=== PATIENT | male | born 1940 | race Caucasian/White ===

== ENCOUNTER 2018-05-12 10:02 | Day surgery (SDC) | payer MEDICARE, BC ==
[2018-05-09 09:02] VITALS: BMI 32.1
[2018-05-12] MEDS ORDERED: Albuterol Sulfate 2.5 mg/3 ml Neb ONE (11:10)
[2018-05-12] MEDS ORDERED: PROPOFOL 200 MG/20 ML VIAL ONE (12:21)
[2018-05-12] MEDS ORDERED: Lidocaine 1% PF 5 ML VIAL ONE (12:21)
--- NOTE | 2018-05-12 18:40 | OP ---
DATE OF PROCEDURE: 05/12/2018 PROCEDURE: Esophagogastroduodenoscopy with biopsy. SURGEON: Tj Odom M.D. ANESTHESIA: Pain medications given by Anesthesiology Department. PREPROCEDURE DIAGNOSIS: Chronic gastroesophageal reflux. POSTPROCEDURE DIAGNOSES: 1. Tamms-colored mucosa 35 cm. 2. Otherwise normal upper endoscopy. PROCEDURE IN DETAIL: A written consent was obtained prior to procedure. After adequate sedation, th e forward-viewing endoscope was advanced down the stomach under direct vision to second portion of du odenum. The duodenum appeared normal. Pylorus was patent. The gastric antrum, body, fundus, and ca rdia all appeared normal. Retroflexion did not show any abnormality. The GE junction was noted appr oximately 36 cm. There were two tongues of salmon-colored lining noted extending for approximately 1 .5 cm. Biopsies were obtained to exclude Parikh's esophagus. The esophagus appeared normal. The p atient tolerated the procedure well. ASSESSMENT: 1. Two tongues of salmon-colored lining epithelium at 35 cm, status post biopsy. 2. Otherwise normal upper endoscopy. PLAN: Await biopsy result.
--- NOTE | 2018-05-12 18:44 | OP ---
DATE OF SERVICE: 05/12/2018. PROCEDURE: Colonoscopy with snare polypectomy. SURGEON: Tj Odom M.D. ANESTHESIA: Medication given per Anesthesiology Department. PREPROCEDURE DIAGNOSIS: Colon screening. POSTPROCEDURE DIAGNOSES: 1. Two sigmoid colon polyps, status post snare polypectomies. 2. Sigmoid diverticulosis coli. 3. Medium internal hemorrhoids. PROCEDURE IN DETAIL: A written consent was obtained prior to procedure. After adequate sedation, re ctal exam performed was normal. Endoscope was advanced to the cecum. The quality of the bowel prep was good. The cecum, ascending colon, hepatic flexure, transverse colon, splenic flexure, descending colon appeared normal. Scattered diverticula were noted in the sigmoid. Two polyps measuring betwe en 5 mm and 8 mm were noted and were removed with snare electrocautery. Polyps were retrieved. Scat tered diverticula were noted in the sigmoid colon. The rectal vault appeared normal. Retroflexion s howed medium internal hemorrhoids. Patient tolerated the procedure well. ASSESSMENT: 1. Two polyps removed in the sigmoid. 2. Sigmoid diverticulosis coli. 3. Internal hemorrhoids. PLAN: Await biopsy result.
== END 2018-05-12 13:30 | disposition home or self-care (01) ==
LOC: SDC 10:02
PROVIDERS: ATTEND Internal Medicine Gastroenterology
PROC: 0DBE8ZX Excision of Large Intestine, Via Natural or Artificial Opening Endoscopic, Diagnostic (ICD-10-PCS; principal; 2018-05-12)
PROC: 0DB48ZX Excision of Esophagogastric Junction, Via Natural or Artificial Opening Endoscopic, Diagnostic (ICD-10-PCS; 2018-05-12)
DX: Z12.11 Encounter for screening for malignant neoplasm of colon (principal); K63.5 Polyp of colon; K57.30 Diverticulosis of large intestine without perforation or abscess without bleeding; K64.8 Other hemorrhoids; K21.0 Gastro-esophageal reflux disease with esophagitis; J44.9 Chronic obstructive pulmonary disease, unspecified; I10 Essential (primary) hypertension; E78.00 Pure hypercholesterolemia, unspecified; Z79.1 Long term (current) use of non-steroidal anti-inflammatories (NSAID); Z79.52 Long term (current) use of systemic steroids; Z79.899 Other long term (current) drug therapy
CPT/HCPCS: 88305; 88312; 88313; J7611

== ENCOUNTER 2018-05-29 19:30 | Outpatient (CLI) | payer MEDICARE, BC | END 2018-05-29 19:31 | disposition home or self-care (01) | LOC: SLEEPLAB 19:30 | PROVIDERS: ATTEND Internal Medicine | DX: G47.33 Obstructive sleep apnea (adult) (pediatric) (principal); R53.83 Other fatigue; R40.0 Somnolence; E78.00 Pure hypercholesterolemia, unspecified; I48.92 Unspecified atrial flutter; I10 Essential (primary) hypertension; J44.9 Chronic obstructive pulmonary disease, unspecified; Z68.33 Body mass index [BMI] 33.0-33.9, adult | CPT/HCPCS: 95811 ==

== ENCOUNTER 2018-07-07 19:30 | Outpatient (CLI) | payer MEDICARE, BC | END 2018-07-07 19:31 | disposition home or self-care (01) | LOC: SLEEPLAB 19:30 | PROVIDERS: ATTEND Internal Medicine | DX: G47.33 Obstructive sleep apnea (adult) (pediatric) (principal); R53.83 Other fatigue; R06.83 Snoring; G47.10 Hypersomnia, unspecified; G47.61 Periodic limb movement disorder; G47.31 Primary central sleep apnea; R09.02 Hypoxemia; E66.9 Obesity, unspecified; Z68.32 Body mass index [BMI] 32.0-32.9, adult | CPT/HCPCS: 95811 ==

== ENCOUNTER 2018-07-15 08:52 | Outpatient (CLI) | payer MEDICARE, BC ==
--- NOTE | 2018-07-15 10:33 | RAD ---
CHEST PA AND LATERAL: Date: 07/15/18 HISTORY: 77-year-old male with history of dyspnea. FINDINGS: Blunting of the costophrenic angles, evidence for some right pleural effusion or pleural thickening. Heart size within normal limits. Increased linear and interstitial markings bilaterally with some mil d biapical pleural thickening, evidence for some chronic change. IMPRESSION: Blunting of right costophrenic angle suggesting a small pleural effusion or some focal pleural thicke paco with increased markings bilaterally, having more of a chronic appearance. No confluent pneumonia or overt edema. No significant cardiomegaly. Atherosclerosis of the aorta. POS: C
== END 2018-07-15 08:53 | disposition home or self-care (01) ==
LOC: RAD 08:52
PROVIDERS: ATTEND Internal Medicine Critical Care Medicine
DX: R06.00 Dyspnea, unspecified (principal); I70.0 Atherosclerosis of aorta
CPT/HCPCS: 71046

== ENCOUNTER 2018-08-11 11:45 | Inpatient (IN) | payer MEDICARE, BC ==
[2018-08-11] MEDS ORDERED: methylPREDNISolone Sod Succ/PF 125 MG/2 ML VIAL ONE (12:04)
[2018-08-11 12:20] LABS: Mean Corpuscular HGB CONC 31.9 g/dL (32.0-36.0); Mean Corpuscular Hemoglobin 28.2 pg (27.0-31.0); Mean Corpuscular Volume 88.3 fL (78.0-98.0); Mean Platelet Volume 7.8 fL (7.4-10.4); Platelet Count 349 thou/uL (130-400); Red Blood Cell (RBC) Count 4.59 mill/uL (4.70-6.10); White Blood Cell (WBC) Count 12.7 thou/uL (4.8-10.8)
[2018-08-11] MEDS ORDERED: Acetaminophen 500 MG TAB ONE (12:28)
[2018-08-11] MEDS ORDERED: Furosemide 40 MG/4 ML VIAL ONE (12:28)
[2018-08-11 12:31] LABS: CKMB 1.1 ng/mL (0-6.6); Troponin I 0.012 ng/mL (< 0.028)
[2018-08-11 12:35] LABS: Band 1 % (5-11); Lymphocytes 10 % (21-51); MDiff Complete? YES; Monocytes 3 % (0-10); Neutrophil 85 % (42-75); RBC Morphology Normal; Reactive Lymphocytes 1 % (0-10)
[2018-08-11 12:44] LABS: ALT (SGPT) 20 U/L (8-55); AST (SGOT) 22 U/L (5-34); Albumin 4.2 g/dL (3.4-4.8); Alkaline Phosphatase 76 U/L (40-150); Anion Gap 13 mmol/L (10-20); BUN (Urea Nitrogen) 20 mg/dL (8.4-25.7); Bilirubin, Total 1.1 mg/dL (0.2-1.2); CK (CPK) 98 U/L (30-200); Calc. Creatinine Clearance 0 mL/min (70-130); Calcium 9.6 mg/dL (7.8-10.44); Carbon Dioxide 22 mmol/L (23-31); Chloride 106 mmol/L (98-107); Estimated GFR-MDRD 60; Globulin 3.2 g/dL (2.4-3.5); Glucose 118 mg/dL (83-110); Protein, Total 7.4 g/dL (5.8-8.1); Sodium 137 mmol/L (136-145)
--- NOTE | 2018-08-11 12:47 | RAD ---
CHEST 1 VIEW: INDICATION: Dyspnea. COMPARISON: Prior exam dated 07/15/2018. FINDINGS: There is airspace opacity in the right upper lobe suspicious for pneumonia. There are healed rib def ormities involving the left chest wall. The costophrenic angles are excluded. The heart size is mil dly enlarged. IMPRESSION: 1. Airspace opacity in the right upper lobe suspicious for pneumonia. 2. Some limitation of the exam. 3. Mild cardiomegaly without definite evidence of cardiac decompensation. POS: [facility]
[2018-08-11] MEDS ORDERED: cefTRIAXone\\ROCEPHIN 2 GM VIAL ONE (13:48)
[2018-08-11 14:04] LABS: Actual Bicarbonate (HCO3a) 21.9 mEq/L (22-28); Analyzer IN Cardio ER; Base Excess (BEa) -0.9 mEq/L (-2.0 to +3.0); CO2 Tension 30.7 mmHg (35.0-45.0); Calcium, Ionized 1.16 mmol/L (1.12-1.30); Carboxyhemoglobin (COHb) 1.1 gm% (0.0-3.0); Hemoglobin (Hb) 12.8 g/dL (14.0-18.0); O2 Tension (PaO2) 73.5 mmHg (> 70.0); Potassium - ABG Lab 3.59 mmol/L (3.70-5.30); pH, Arterial 7.47 (7.35-7.45)
[2018-08-11 14:06] LABS: Bilirubin Negative (Negative); Blood, Urine Negative (Negative); Clarity CLEAR (Clear); Glucose, Urine (Dipstick) Negative (Negative); Leukocyte Trace (Negative); Nitrite Negative (Negative); Protein, Urine (Dipstick) 30 mg/dL (Neg-Trace); Specific Gravity, Urine 1.022 (1.002-1.036)
[2018-08-11 14:08] LABS: Bacteria/HPF None Seen HPF (None Seen); Hyaline Casts/LPF 0-3 HYALINE CAST LPF (0-3 Hyaline); Pathc Cast-AUWi Flag 0.29 (0-2.49); RBC/HPF 0-3 HPF (0-3); Squamous Epithelial 0-3 HPF (0-3); WBC/HPF 0-3 HPF (0-3)
[2018-08-11] MEDS ORDERED: cloNIDine 0.1 MG TAB PO PRN (14:16)
[2018-08-11] MEDS ORDERED: HYDROcodone/Acetaminophen 5/325 mg Tablet PO PRN (14:16)
[2018-08-11] MEDS ORDERED: Ondansetron ODT 4 MG TAB PO PRN (14:16)
[2018-08-11] MEDS ORDERED: Bisacodyl 10 MG SUPP PR PRN (14:16)
[2018-08-11] MEDS ORDERED: Loperamide HCl 2 MG CAP PO PRN (14:16)
[2018-08-11] MEDS ORDERED: Cepastat Lozenges 1 LOZ PO PRN (14:16)
[2018-08-11] MEDS ORDERED: Ondansetron PF 4 MG/2 ML Vial IVP PRN (14:16)
[2018-08-11] MEDS ORDERED: Loratadine 10 MG TAB PO PRN (14:16)
[2018-08-11] MEDS ORDERED: Zolpidem Tartrate 5 MG TAB PO PRN (14:16)
[2018-08-11] MEDS ORDERED: Bisacodyl 5 MG TAB PO PRN (14:16)
[2018-08-11] MEDS ORDERED: Eucerin (Mineral Oil/Petrolatum,White) 30 gm Jar TOP PRN (14:16)
[2018-08-11] MEDS ORDERED: hydrALAZINE 20 MG/ML VIAL SLOW IVP PRN (14:16)
[2018-08-11] MEDS ORDERED: Sodium Chloride 0.65% Nasal 44 ML BOT EA NARE PRN (14:16)
[2018-08-11] MEDS ORDERED: Artificial Tears 18 DROP/0.9 ML EA EYE PRN (14:16)
[2018-08-11] MEDS ORDERED: Azithromycin 500 MG VIAL ONE (14:39)
[2018-08-11 14:45] LABS: ALV-art Gradient 173.325 (0-20); Puncture Site RR
--- NOTE | 2018-08-11 14:48 | HP ---
PRIMARY CARE PHYSICIAN: Dr. Gabriel Mary. PRIMARY SUBSCRIPTION CLERK: Dr. Shipman. REASON FOR ADMISSION: Acute on chronic respiratory failure with hypoxia, pneumonia and COPD exacerba tion. HISTORY OF PRESENT ILLNESS: A 77-year-old male who has underlying history of chronic respiratory vinh lure who uses 3 liter nasal cannula oxygen at home and he also has sleep apnea and uses CPAP machine during nighttime. In addition to that, he has underlying history of hypertension, dyslipidemia, and gastroesophageal reflux disease who presented to emergency room with increasing shortness of breath. He is feeling shortness of breath, gradually increasing for about a week, but since Saturday, the pa filiberto's symptoms are rapidly gotten worse. Even after walking few steps in his home, he was getting out of breath. He was feeling congested in his chest. He was only having cough without any sputum. He was not feeling any chest pain, palpitation, dizziness, but he was feeling weak, he was feeling c hills, he was feeling cold and he was gradually becoming more and more weak. He was having low grade fever at home. Patient attributes his symptoms related with weather change. He did not have any ex posure to any sick person. He did not travel anywhere. Patient also received a flu vaccination this year and patient also reports that he is up to date in all other age appropriate vaccinations includ ing pneumonia vaccines. The patient has been following physical trainer and he was given prednisone course about a month ago. A t that time, he was feeling better. The patient denies any UTI symptoms. He denies any lower extremity edema or calf tenderness. He den ies any PND. He denies any melena or hematochezia, but he does not have any bowel movement for the l ast 3 days. REVIEW OF SYSTEMS: The following complete review of systems was negative, unless otherwise mentioned in the HPI or below: Constitutional: Weight loss or gain, ability to conduct usual activities. Sk in: Rash, itching. Eyes: Double vision, pain. ENT/Mouth: Nose bleeding, neck stiffness, pain, te nderness. Cardiovascular: Palpitations, dyspnea on exertion, orthopnea. Respiratory: Shortness of breath, wheezing, cough, hemoptysis, fever or night sweats. Gastrointestinal: Poor appetite, abdom inal pain, heartburn, nausea, vomiting, constipation, or diarrhea. Genitourinary: Urgency, frequenc y, dysuria, nocturia. Musculoskeletal: Pain, swelling. Neurologic/Psychiatric: Anxiety, depressio n. Allergy/Immunologic: Skin rash, bleeding tendency. Please see my HPI for pertinent positive and negative. All other review of system reviewed and negat aries except as mentioned in the HPI. PAST MEDICAL HISTORY: Hypertension, sleep apnea, dyslipidemia, gastroesophageal reflux disease, oste oarthritis, opacity, COPD, chronic respiratory failure on home oxygen. PAST PSYCHIATRIC HISTORY: Reviewed and negative. PAST SURGICAL HISTORY: Left knee surgery, cyst removal x2, EGD and colonoscopy in 2018 in March, requ ired polypectomy. SOCIAL HISTORY: Patient is . He drinks beer every day, but less than 5 beers. He drinks 2 g lasses of wine almost every night. He denies any smoking. He denies any other illicit drug abuse. He lives at home with his . FAMILY HISTORY: No family history of premature coronary artery disease, stroke or cancer. ALLERGIES: No known drug allergy. CURRENT HOME MEDICATIONS: Losartan 100 mg p.o. daily, Toprol-XL 25 mg p.o. daily, amlodipine 10 mg p .o. daily, Crestor 10 mg p.o. daily, Nexium 20 mg 2 tablets daily, Mobic 15 mg daily, potassium chlor myesha 10 mEq p.o. daily and nebulizer treatment. EMERGENCY ROOM COURSE: Patient is given Rocephin, azithromycin, Lasix 40 mg, Tylenol 1 gram, Solu-Me drol 125 mg, DuoNeb therapy. PHYSICAL EXAMINATION: VITAL SIGNS: On arrival, blood pressure 157/100, pulse 111, respiratory rate 35, temperature 100.2, saturation 86% on 3 liter oxygen, and 92% on BiPAP, weight 101.6 kilograms. GENERAL: Patient is currently in mild respiratory distress, hypertensive, tachycardic. HEAD: Normocephalic, atraumatic. EYES: Pupils round, reactive to light. Extraocular muscle intact. ENT: Oropharynx within normal limits. Moist mucous membranes. No oral lesions, no pharyngeal eryth behzad, no exudate, no thrush. NECK: Supple. No meningeal signs of irritation, no JVD, no thyromegaly, no carotid bruit. LUNGS: Bilateral reduced air entry, coarse breath sound noted bilaterally. No accessory muscles of respiration in use. CARDIAC: S1, S2 regular, tachycardia, no murmur, no gallop, no rub. ABDOMEN: Obesity present. Bowel sounds present, nontender, nondistended. No organomegaly, no mass, no suprapubic tenderness. BACK: Unremarkable, no CVA tenderness. EXTREMITIES: Upper extremity: Passive movements of all joints are normal. Lower extremities: No e mable. Good distal pulsation. SKIN: No skin rash. HEMATOLOGICAL: No lymphadenopathy. PSYCHIATRIC: Normal affect. SIGNIFICANT LABORATORY DATA: Chest x-ray based on my review, airspace opacity in the right upper lob e concerning for pneumonia, cardiomegaly. EKG showing sinus tachycardia, left atrial enlargement. C BC: WBC 12.7, hemoglobin 13.0, platelets 349 with bandemia and left shift. BMP: Sodium 137, potass ium 4.0, chloride 106, carbon dioxide 22, anion gap 13, BUN 20, creatinine 1.17, glucose 118, calcium 9.6. Lactic acid 1.3. LFT: AST 22, ALT 20, alkaline phosphatase 76, albumin 4.2, CK 98, CK-MB 1.1 , troponin I 0.012. BNP 199.7. ASSESSMENT AND PLAN/IMPRESSION: 1. Acute on chronic respiratory failure with hypoxia requiring BiPAP. The patient was not able to m aintain his saturations with his home oxygen. The patient was also found hypoxic at home with satura tion in the 70-80s even with oxygen and currently with the BiPAP, his saturation is maintained. This patient will require IMCU admission. We will wean off BiPAP as tolerated. Pulmonary group will be consulted. His respiratory failure, acute on chronic is related with underlying pneumonia. 2. Community-acquired pneumonia, likely due to Streptococcus pneumoniae. Patient has underlying chr onic obstructive pulmonary disease as well as respiratory failure. Patient will require admission gi aubrey his leukocytosis, fever and increasing respiratory distress. He will be given cefepime and levof loxacin. Pulmonary group will be consulted. Mucinex 600 mg 3 times daily will be given. Along with antibiotic therapy, patient will be treated for chronic obstructive pulmonary disease exacerbation. 3. Chronic obstructive pulmonary disease exacerbation, likely due to weather changes as well as asso ciated pneumonia associated with respiratory failure. The patient will be given DuoNeb therapy every 4 hourly, Dulera two puff inhalation b.i.d., Solu-Medrol 40 mg IV q.6 hourly, Mucinex 600 mg 3 times daily. Patient already up to date in flu and pneumonia vaccination. 4. Obstructive sleep apnea on CPAP. Patient will continue CPAP machine while in hospital during nig ht time. 5. Hypertension. We will continue amlodipine 10 mg p.o. daily. We will hold on Toprol-XL to preven t bronchospasm. We will continue with losartan 100 mg p.o. daily. 6. Dyslipidemia. Continue Crestor 10 mg p.o. at bedtime. 7. Gastroesophageal reflux disease. We will continue Protonix 40 mg p.o. daily. 8. Obesity. Dietary education given, weight loss education given. Healthy lifestyle measures discu ssed with the patient. 9. Deep venous thrombosis prophylaxis. Lovenox 40 mg subcu daily. 10. Gastrointestinal prophylaxis, Protonix 40 mg p.o. daily. CODE STATUS: The patient is FULL CODE. The patient's is surrogate decision maker. Disposition plan based on clinical course. We are expecting patient's stay in hospital more than 2 m idnights. Plan of care discussed with the patient and family member at bedside.
[2018-08-11] MEDS ORDERED: Cefepime 2 GM in Sodium Chloride 0.9% 100 ML IVPB SCH (17:00)
[2018-08-11] MEDS: guaiFENesin ER 600 MG TAB PO SCH ×2 (18:09→20:29)
--- NOTE | 2018-08-11 19:43 | CON ---
DATE OF CONSULTATION: 08/11/2018 The encompassed 70 minutes' time, of that time greater than 50% was spent with the patient in his kendell m or in immediate vicinity of his room. REASON FOR CONSULTATION: Acute on chronic respiratory failure with a right upper lobe pneumonia. HISTORY OF PRESENT ILLNESS: The patient is a 77-year-old male who sees Dr. Shipman for Pulmo nary and sleep apnea concerns. The patient has been feeling ill for the last 3-4 days. He had chill s at home today. He has not been coughing. When he got to the ER, he had a temperature of 102.8. A chest x-ray demonstrated a right upper lobe infiltrate consistent with pneumonia. He has been placed on BiPAP. He feels better. I was actually able to take him off the BiPAP in the ER and interview him. PAST MEDICAL HISTORY: 1. BRAD. 2. Central sleep apnea. 3. Hypertension. 4. Hyperlipidemia. 5. Gastroesophageal reflux. 6. Chronic obstructive pulmonary disease requiring intermittent oxygen therapy. PAST SURGICAL HISTORY: 1. Left knee surgery. 2. Cyst removal. 3. EGD. 4. Colonoscopy with polypectomy. SOCIAL HISTORY: Drinks beer daily using less than 5 beers, drinks 2 glasses of wine at night. Does not smoke currently, does not use illicit drugs. FAMILY MEDICAL HISTORY: Remarkable for no heart disease or lung disease. ALLERGIES: None. MEDICATIONS PRIOR TO ADMISSION: Losartan, Toprol-XL, amlodipine, Crestor, Nexium, potassium chloride , albuterol, ipratropium nebulization solution. Additionally, he wears an auto-SV machine at night f or his sleep apnea/central sleep apnea. REVIEW OF SYSTEMS: No fever, chills, nausea, vomiting, hematemesis, melena, hematochezia, hematuria, or dysuria. PHYSICAL EXAMINATION: VITAL SIGNS: Temperature 102.8, now down to 97; pulse 91; blood pressure 124/66; O2 sat 91% on 5 lit ers. GENERAL: He is awake, alert, pleasant, and in no distress. HEENT: Pupils react. Sclerae icteric. Oropharynx clear. NECK: Without adenopathy or JVD. LUNGS: He has crackles heard in the right upper lobe anteriorly. His left and right side are clear posteriorly. CARDIAC: S1, S2, slightly tachycardic without audible murmur. ABDOMEN: Soft, obese, nontender, nondistended. EXTREMITIES: No clubbing, cyanosis, or edema. NEUROLOGIC: Grossly intact throughout. LABORATORY DATA: White blood cell count 12.7, hematocrit 40.6, platelet count 249 with 85% neutrophi ls, 1% bands. PH 7.47, pCO2 of 31, PO2 of 73 that was on BiPAP 12/5. Sodium 137, potassium 4, chlor myesha 106, CO2 of 22, BUN 20, creatinine 1.2, glucose 118. BNP 199. Troponin 0.012. X-ray shows a pr ofound right upper lobe infiltrate. ASSESSMENT: 1. Right upper lobe pneumonia. 2. Acute hypoxic respiratory failure requiring mechanical ventilation. 3. Underlying chronic obstructive pulmonary disease. 4. Underlying obstructive sleep apnea and central sleep apnea. PLAN: 1. Agree with the cefepime and Levaquin. 2. Agree with IV steroids. 3. Nebulization treatments. 4. Intermittent noninvasive mechanical ventilation as needed. 4. Deep venous thrombosis prophylaxis with Lovenox. 5. Gastrointestinal prophylaxis with Protonix. 6. He may use his auto-SV unit from home or a Trilogy ventilator that he was using down at the ER. 7. I will inform Dr. Shipman of the patient's hospitalization.
[2018-08-11] MEDS: Mometasone/Formoterol 120 PUFF INHALER INH SCH (20:23)
[2018-08-11] MEDS: Rosuvastatin 10 MG TAB PO SCH (20:29)
[2018-08-11] MEDS: Cefepime 2 GM in Sodium Chloride 0.9% 100 ML IVPB SCH (22:17)
[2018-08-12 04:18] LABS: #Lymphocytes 0.6 thou/uL (1.20-3.40); #Monocytes 0.3 thou/uL (0.11-0.59); #Neutrophils 7.8 thou/uL (1.40-6.50); %Basophils 0.4 % (0.0-1.0); %Eosinophils 0.1 % (0.0-10.0); %Lymphocytes 6.6 % (21.0-51.0); %Monocytes 3.5 % (0.0-10.0); %Neutrophils 89.4 % (42.0-75.0); Hemoglobin 11.3 g/dL (14.0-18.0); Mean Corpuscular HGB CONC 31.7 g/dL (32.0-36.0); Mean Corpuscular Hemoglobin 27.7 pg (27.0-31.0); Mean Corpuscular Volume 87.4 fL (78.0-98.0); Mean Platelet Volume 7.6 fL (7.4-10.4); Platelet Count 323 thou/uL (130-400); RBC Distribution Width 15.9 % (11.5-14.5); Red Blood Cell (RBC) Count 4.06 mill/uL (4.70-6.10); White Blood Cell (WBC) Count 8.7 thou/uL (4.8-10.8)
[2018-08-12 05:05] LABS: Anion Gap 17 mmol/L (10-20); BUN (Urea Nitrogen) 32 mg/dL (8.4-25.7); Calc. Creatinine Clearance 65 mL/min (70-130); Calcium 8.9 mg/dL (7.8-10.44); Carbon Dioxide 17 mmol/L (23-31); Chloride 104 mmol/L (98-107); Estimated GFR-MDRD 53; Glucose 179 mg/dL (83-110); Potassium 3.4 mmol/L (3.5-5.1); Sodium 135 mmol/L (136-145)
[2018-08-12] MEDS: Mometasone/Formoterol 120 PUFF INHALER INH SCH ×2 (06:46→18:51)
[2018-08-12] MEDS ORDERED: Enoxaparin Sodium 40 MG/0.4 ML SYRINGE SC SCH (09:00)
[2018-08-12] MEDS: guaiFENesin ER 600 MG TAB PO SCH ×3 (09:08→20:30)
[2018-08-12] MEDS: Losartan 25 MG TAB PO SCH (09:08)
[2018-08-12] MEDS: Amlodipine 10 MG TAB PO SCH (09:08)
--- NOTE | 2018-08-12 09:46 | RAD ---
PORTABLE CHEST: History: ICU follow up. Dyspnea. Comparison: 08-11-18 FINDINGS/IMPRESSION: The focal infiltrate in the right midlung is again seen, slightly less prominent today. Left lung baldomero ears aerated and clear. No other significant change. POS: [facility]
[2018-08-12] MEDS ORDERED: Polyethylene Glycol 3350 17 GM Packet PO PRN (10:49)
[2018-08-12] MEDS ORDERED: Torsemide 20 MG TAB PO SCH (11:00)
[2018-08-12 11:09] LABS: INR-International Normal Ratio 3.6
[2018-08-12 11:10] LABS: PTT 102.2 SEC (22.9-36.1)
--- NOTE | 2018-08-12 11:22 | PRG ---
DATE OF SERVICE: 08/12/2018 SUBJECTIVE: The patient feels much improved. He feels like he is breathing better and would like to get up and around. He does continue to have some abdominal distention. He says he has not had a ashley wel movement 4-5 days. He has a little bit of chest soreness, but it is only when he is coughing. PHYSICAL EXAMINATION: VITAL SIGNS: Temperature 98.7, pulse 101, respirations 18, O2 sat 94% on nasal cannula, BP 119/61. GENERAL APPEARANCE: Age appropriate male. He is very much awake, alert, pleasant and interactive. HEART: Regular rate and rhythm without murmur. LUNGS: Diminished with some scattered rales and wheezes. ABDOMEN: Slightly distended and hypertympanic to percussion. He does have good bowel sounds. There are tending toward slightly more high pitched. EXTREMITIES: No cyanosis, clubbing or edema. LABORATORY DATA: White count is 8.7, hemoglobin 11.3, platelets 323. Sodium 135, potassium 3.4, chl oride 104, CO2 of 17, BUN 32, creatinine 1.3, glucose 179. Blood cultures is growing coag negative s taph. IMPRESSION AND PLAN: 1. Acute respiratory failure requiring noninvasive mechanical ventilation, appears to be substantial ly improved. He is down to 2 liters nasal cannula. 2. Chronic obstructive pulmonary disease exacerbation, followed by Pulmonology, continuing on nebuli zer treatments and steroids. 3. Pneumonia. Continue with broad spectrum antibiotics including cefepime and Levaquin and appears to be substantially improved. 3. Abdominal distention. The patient has not had a bowel movement in about 4-5 days. He does have some bowel sounds, but is distended and hypertympanic. We will get a KUB. Encourage ambulation and give him some laxative. 4. History of atrial fibrillation. The patient has history of obstructive sleep apnea and was havin g episodes of atrial fibrillation as well. He has been evaluated by Cardiology. Apparently Dr. Elvis davis is his loading checker. He had initially been placed on a novel oral anticoagulation agent, but has been switched to Coumadin because of cost. The patient was [facility] yesterday kelvin or to admission has a PT/INR ordered today. We will go ahead and discontinue the Lovenox and resume him on his warfarin therapy. 5. Hypertension, stable. 6. Hyperlipidemia. Continue with Rosuvastatin. 7. We will resume his usual home dose of torsemide.
[2018-08-12] MEDS: Cefepime 2 GM in Sodium Chloride 0.9% 100 ML IVPB SCH ×2 (11:53→21:34)
--- NOTE | 2018-08-12 14:00 | RAD ---
ABDOMEN ONE VIEW: History: 77-year-old male with history of abdominal distension. FINDINGS: There is some gas and fecal material in the colon. There is a considerable amount of gas in nondilate d or up to borderline dilated small bowel, nonspecific. This could conceivably represent a low grade small bowel obstruction versus some focal ileus or enteritis. No overt calculus. Lumbar spine spondyl osis. IMPRESSION: Some gas and fecal material in the colon. A moderate amount of scattered gas in nondilated and up to borderline dilated small bowel raising concern for the possibility of a low grade partial small bowel obstruction or possibly some focal ileus or enteritis. Continued short term follow up. POS: [facility]
--- NOTE | 2018-08-12 15:10 | PRG ---
DATE OF SERVICE: 08/12/2018 SUBJECTIVE: He says he feels much better than he felt yesterday. Still short of breath, just walkin g 5-6 feet in the room. He says he has not had a bowel movement in 4 days. He says his was try ing to get him to come to the doctor in the hospital since Saturday leading up to this. OBJECTIVE: VITAL SIGNS: His vital signs have been stable. LUNGS: He still has wheezes bilaterally. HEART: Regular rhythm. ABDOMEN: Soft and nontender. EXTREMITIES: Without clubbing, cyanosis, or edema. IMPRESSION: 1. Pneumonia. 2. Underlying chronic obstructive pulmonary disease. 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 We will continue with current care.
[2018-08-12] MEDS ORDERED: Warfarin Sodium 5 MG TAB PO SCH (17:00)
[2018-08-12] MEDS: Senokot S 8.6-50 MG TAB PO PRN (17:13)
[2018-08-12] MEDS: Rosuvastatin 10 MG TAB PO SCH (20:30)
[2018-08-13 04:48] LABS: INR-International Normal Ratio 3.7; Prothrombin Time 36.4 SEC (12.0-14.7)
[2018-08-13] MEDS: Mometasone/Formoterol 120 PUFF INHALER INH SCH ×2 (07:04→19:41)
[2018-08-13] MEDS: Amlodipine 10 MG TAB PO SCH (09:39)
[2018-08-13] MEDS: guaiFENesin ER 600 MG TAB PO SCH ×3 (09:39→20:34)
[2018-08-13] MEDS: Losartan 25 MG TAB PO SCH (09:39)
[2018-08-13] MEDS: Torsemide 20 MG TAB PO SCH (09:40)
[2018-08-13] MEDS: Cefepime 2 GM in Sodium Chloride 0.9% 100 ML IVPB SCH ×2 (11:51→21:38)
--- NOTE | 2018-08-13 15:41 | PRG ---
DATE OF SERVICE: 08/13/2018 SUBJECTIVE: Mr. Mart has been stable out of the ICU. He is still getting dyspneic walking to the bathroom. OBJECTIVE: VITALS: He is afebrile, heart rate is 106, respiratory rate is 18, oximetry is 92 on 3 liters, blood pressure 129/58. LUNGS: Remarkable for wheezes diffusely. HEART: Regular rhythm. ABDOMEN: Soft. Radiographs were reviewed yesterday. LABORATORY DATA: Chest x-ray actually was improved compared to the admissions film surprisingly. I suspect he had some degree of mucus plugging. His abdomen is less distended today. I believe his abdominal film from yesterday is more consistent with just retained stool than radiographic abnormalities suggestive if a bowel obstruction or an ileus. We will continue to follow this clinically. IMPRESSION: Chronic obstructive pulmonary disease exacerbation with right upper lobe pneumonia. He is slowly improving, but not ready for discharge. He already does have oxygen and a nebulizer at home. We went over the indications for the use of above again, but I do not feel he is ready for discharge. [facility]
--- NOTE | 2018-08-13 15:52 | PRG ---
DATE OF SERVICE: 08/13/2018 SUBJECTIVE: The patient is feeling okay, a little short of breath and had little tachycardia overnig ht. No new complaints this morning. He did try to go without his CPAP last night. The patient repo rts he was actually on his CPAP for about 3 days prior to his presentation queried whether it could b e related to him developing pneumonia. OBJECTIVE: VITAL SIGNS: Temperature 97.9, pulse 100, respirations 18-24, O2 saturation 98% on 3 liters nasal ca nnula, BP is 129/58. GENERAL APPEARANCE: The patient is awake and alert, still little tachypneic when trying to talk much . HEENT: PERRL. No acute lesions. HEART: Borderline tachycardic with no murmurs. LUNGS: Significantly diminished bilaterally, but no substantial wheezes or rales were noted. ABDOMEN: Soft, nontender, nondistended with positive bowel sounds. No masses, no organomegaly. EXTREMITIES: Warm and dry without edema. IMPRESSION AND PLAN: 1. Acute respiratory failure secondary to pneumonia and chronic obstructive pulmonary disease, impro ving, still requiring some oxygen. 2. Chronic obstructive pulmonary disease exacerbation, followed by Pulmonary. Continue nebulizer tr eatments, steroids, and supplemental oxygen. 3. Pneumonia. Continue broad spectrum antibiotics, cefepime and Levaquin appears to be improving. 4. Abdominal distention. The patient did have a bowel movement this morning and does feel somewhat better. He reports that he often feels somewhat bloated and distended after drinking morning coffee. 5. History of atrial fibrillation. The patient has a history of atrial fibrillation runs while havi ng episodes of sleep apnea followed by Dr. Gonzalez who recently been switched to Coumadin and had ther apeutic levels. 6. Hypertension, stable. 7. Hyperlipidemia. Continue with rosuvastatin.
[2018-08-13] MEDS: Rosuvastatin 10 MG TAB PO SCH (20:34)
[2018-08-13] MEDS: Diabetic Tussin 200 MG/10 ML UDCUP PO PRN (20:34)
[2018-08-14 07:16] LABS: #Lymphocytes 0.7 thou/uL (1.20-3.40); #Monocytes 0.7 thou/uL (0.11-0.59); #Neutrophils 13.4 thou/uL (1.40-6.50); %Basophils 0.1 % (0.0-1.0); %Lymphocytes 4.4 % (21.0-51.0); %Monocytes 4.4 % (0.0-10.0); Hemoglobin 11.6 g/dL (14.0-18.0); Mean Corpuscular HGB CONC 32.2 g/dL (32.0-36.0); Mean Corpuscular Hemoglobin 27.9 pg (27.0-31.0); Mean Corpuscular Volume 86.7 fL (78.0-98.0); Mean Platelet Volume 7.4 fL (7.4-10.4); Platelet Count 397 thou/uL (130-400); Red Blood Cell (RBC) Count 4.14 mill/uL (4.70-6.10); White Blood Cell (WBC) Count 14.8 thou/uL (4.8-10.8)
[2018-08-14 07:31] LABS: Anion Gap 13 mmol/L (10-20); BUN (Urea Nitrogen) 66 mg/dL (8.4-25.7); Calc. Creatinine Clearance 31 mL/min (70-130); Calcium 8.7 mg/dL (7.8-10.44); Carbon Dioxide 20 mmol/L (23-31); Chloride 100 mmol/L (98-107); Estimated GFR-MDRD 22; Glucose 203 mg/dL (83-110); Potassium 3.9 mmol/L (3.5-5.1); Sodium 129 mmol/L (136-145)
[2018-08-14] MEDS: Mometasone/Formoterol 120 PUFF INHALER INH SCH ×2 (08:13→17:57)
[2018-08-14] MEDS: Torsemide 20 MG TAB PO SCH (09:52)
[2018-08-14] MEDS: guaiFENesin ER 600 MG TAB PO SCH ×3 (09:52→20:28)
[2018-08-14] MEDS: Losartan 25 MG TAB PO SCH (09:52)
[2018-08-14] MEDS: Amlodipine 10 MG TAB PO SCH (09:52)
[2018-08-14] MEDS: Cefepime 2 GM in Sodium Chloride 0.9% 100 ML IVPB SCH ×2 (11:53→21:40)
[2018-08-14] MEDS ORDERED: Magnesium Sulfate 3 GM in Sodium Chloride 0.9% 100 ML IVPB SCH (13:15)
--- NOTE | 2018-08-14 13:22 | PRG ---
DATE OF SERVICE: 08/14/2018 Mr. Mart did well overnight. He is still not ready to go home. He feels a little more short of evan ath today. PHYSICAL EXAMINATION: LUNGS: On exam he is wheezing, but does not sound worse to me that he sounded yesterday. HEART: Regular rhythm. ABDOMEN: Abdomen is soft. EXTREMITIES: Without asymmetry. He had an EKG done yesterday that did not show any atrial fibrillation. IMPRESSION: 1. Pneumonia. 2. Chronic obstructive pulmonary disease exacerbation. 3. Aerophagia with abdominal distention. He has been worked up by Dr. Odom for this. 4. History of atrial fibrillation. 5. History of hypertension. 6. Lipid disorder. 7. Deconditioning with each day he is in bed. I have encouraged him to sit up in a chair and exerci se his legs that when he is well enough to go home he will not have the leg weakness, that is certain ly common. We will continue to follow. Give him a dose of IV magnesium to see if this helps.
[2018-08-14 16:31] LABS: INR-International Normal Ratio 3.4; Prothrombin Time 34.7 SEC (12.0-14.7)
[2018-08-14 16:32] LABS: PTT 66.1 SEC (22.9-36.1)
--- NOTE | 2018-08-14 17:40 | PRG ---
DATE OF SERVICE: 08/14/2018 SUBJECTIVE: The patient does not feel significantly better today. He is a little concerned as he th ought he would be getting better been this by now. He is still having some sputum production and has a bit of blood tinged sputum at this point. He has not been able to get up and around a whole lot i n the room. OBJECTIVE: VITAL SIGNS: Temperature is 97.5, pulse 105, respirations 20, O2 sat 92% on 3 liters nasal cannula, BP 124/63. GENERAL: Age appropriate male. He is bit tachypneic. He is able to speak, but generally short sent ences, wearing his nasal cannula. HEART: Borderline tachycardia with a sinus rhythm. LUNGS: Diminished bilaterally with no significant wheezes or rales. ABDOMEN: Soft, nontender, nondistended, positive bowel sounds, no masses, no organomegaly. EXTREMITIES: Warm and dry without edema. LABORATORY DATA: White blood cell count 14.8, hemoglobin 11.6, platelets 397. Sodium 129, potassium 3.9, chloride 100, CO2 is 20, BUN 66, creatinine 2.78, glucose 230. Blood cultures growing coag neg ative staph. ASSESSMENT AND PLAN: 1. Pneumonia. Continue with cefepime, also continuing with treatment of the underlying chronic obst ructive pulmonary disease. Also, continue with the Guaifenesin. 2. Chronic obstructive pulmonary disease exacerbation. Continue with steroids, nebulizer treatments , supplemental oxygen. I discussed with Dr. Shipman considering some magnesium infusion if he does not significantly improve. 3. Abdominal distention, improved with bowel movements. 4. History of atrial fibrillation. I had long discussion with the patient and his family, ultimatel y see no evidence of atrial fibrillation since he has been here, his EKG showed sinus rhythm with ailyn e minimal ectopy. His heart rate on exam remains generally regular with occasional PVCs. 5. Tachycardia secondary to nebulizer treatments, most likely. 6. Elevated BUN and creatinine consistent with prerenal azotemia likely some dehydration, discontinu ing the torsemide and giving him some fluids. 7. Hypertension, stable. 8. Hyperlipidemia. Continue rosuvastatin. 9. Coumadin therapy. Because of the patient's mild blood tinged sputum. We will go ahead and reche ck his coags today and revaluate those in the morning.
[2018-08-14] MEDS ORDERED: ALPRAZolam 0.5 MG TAB PO SCH (18:30)
[2018-08-14] MEDS: Simethicone Chewable 80 MG TAB PO PRN (18:49)
[2018-08-14] MEDS: Sodium Chloride 0.9% 1,000 ML IV SCH (18:54)
[2018-08-14] MEDS: Rosuvastatin 10 MG TAB PO SCH (20:28)
[2018-08-15] MEDS: Sodium Chloride 0.9% 1,000 ML IV SCH (01:14)
[2018-08-15] MEDS ORDERED: ALPRAZolam 0.25 MG TAB PO SCH (03:15)
[2018-08-15] MEDS: Mometasone/Formoterol 120 PUFF INHALER INH SCH ×2 (05:56→18:06)
[2018-08-15 05:58] LABS: #Lymphocytes 0.7 thou/uL (1.20-3.40); #Monocytes 0.5 thou/uL (0.11-0.59); #Neutrophils 11.4 thou/uL (1.40-6.50); %Basophils 0.2 % (0.0-1.0); %Eosinophils 0.2 % (0.0-10.0); %Lymphocytes 5.2 % (21.0-51.0); %Monocytes 4.2 % (0.0-10.0); %Neutrophils 90.2 % (42.0-75.0); Hemoglobin 11.6 g/dL (14.0-18.0); Mean Corpuscular HGB CONC 31.7 g/dL (32.0-36.0); Mean Corpuscular Volume 88.4 fL (78.0-98.0); Mean Platelet Volume 7.5 fL (7.4-10.4); Platelet Count 402 thou/uL (130-400); Red Blood Cell (RBC) Count 4.15 mill/uL (4.70-6.10); White Blood Cell (WBC) Count 12.6 thou/uL (4.8-10.8)
[2018-08-15 06:03] LABS: INR-International Normal Ratio 3.4; Prothrombin Time 34.4 SEC (12.0-14.7)
[2018-08-15 06:04] LABS: PTT 59.9 SEC (22.9-36.1)
[2018-08-15 06:26] LABS: Anion Gap 18 mmol/L (10-20); BUN (Urea Nitrogen) 77 mg/dL (8.4-25.7); Calc. Creatinine Clearance 27 mL/min (70-130); Calcium 8.6 mg/dL (7.8-10.44); Carbon Dioxide 17 mmol/L (23-31); Chloride 98 mmol/L (98-107); Estimated GFR-MDRD 19; Glucose 195 mg/dL (83-110); Potassium 4.1 mmol/L (3.5-5.1); Sodium 129 mmol/L (136-145)
[2018-08-15 08:40] LABS: Troponin I 0.028 ng/mL (< 0.028)
[2018-08-15] MEDS ORDERED: Lidocaine 1% (PF) 30 ML VIAL ONE (10:34)
[2018-08-15] MEDS: Cefepime 2 GM in Sodium Chloride 0.9% 100 ML IVPB SCH ×2 (11:22→21:32)
[2018-08-15] MEDS: guaiFENesin ER 600 MG TAB PO SCH ×3 (11:24→20:09)
[2018-08-15] MEDS: Losartan 25 MG TAB PO SCH (11:24)
[2018-08-15] MEDS: Amlodipine 10 MG TAB PO SCH (11:25)
--- NOTE | 2018-08-15 11:30 | PRG ---
DATE OF SERVICE: 08/15/2018 SUBJECTIVE: Mr. Mart has been short of breath all night and he has felt a pressure sensation in his chest. A chest x-ray obtained showed a fairly substantial right-sided pneumothorax primarily at the base and apex with an area that looked stuck in the mid lung area. PHYSICAL EXAMINATION: VITAL SIGNS: His O2 sat was running in the high 80s to low 90s, respiratory rate in the mid 20s, tem perature is 97.7, blood pressure 146/70. Besides his mild discomfort, he does not appear in any resp iratory distress. HEENT: Unremarkable. NECK: No adenopathy or JVD. LUNGS: Absent breath sounds in the right, clear on the left. CARDIAC: S1 and S2 regular. ABDOMEN: Soft. EXTREMITIES: No edema. LABORATORY DATA: White blood cell count 12.6, hematocrit 36.7, platelet count 402. INR 3.4. Sodium 129, potassium 4.1, chloride 98, CO2 17, BUN 77, creatinine 3.2, glucose 195. X-RAY FINDINGS: Chest x-ray was reviewed. ASSESSMENT: 1. Right-sided pneumothorax. 2. Chronic obstructive pulmonary disease with exacerbation. 3. Pneumonia. 4. Atrial fibrillation. PLAN: 1. The patient's pneumothorax was treated with small pneumothorax catheter without difficulty. Post operative x-ray is pending. It looks like anticoagulation is being withheld. 2. Continue steroids, nebulization therapy. If the small chest tube does not work, then we will nee d cardiothoracic surgery to put in a larger tube.
--- NOTE | 2018-08-15 12:05 | OP ---
DATE OF PROCEDURE: 08/15/2018 PROCEDURE PERFORMED: Pneumothorax catheter placement. PREOPERATIVE DIAGNOSIS: Right pneumothorax. POSTOPERATIVE DIAGNOSIS: Right pneumothorax. ANESTHESIA: A 1% lidocaine without epinephrine. DESCRIPTION OF PROCEDURE: Informed consent was obtained prior to the procedure. The patient had a s ubstantial right-sided pneumothorax, which he was symptomatic from. He was informed of the risk of t he procedure including bleeding, infection, and lung puncture. He agreed to proceed. The patient was placed in a supine position. The right midclavicular second and third intercostal sp martin was cleansed with chlorhexidine and draped sterilely. The entry site was anesthetized with 1% li docaine without epinephrine. A small pneumothorax catheter was inserted between the ribs. I was abl e to aspirate air without difficulty. There was a gush of air once the needle was removed from the c atheter. The tube was then secured to a Heimlich valve. The tube was then sutured into position. T he patient tolerated the procedure well. Postoperative x-ray is pending.
--- NOTE | 2018-08-15 14:06 | ULT ---
RENAL ULTRASOUND: 08/15/18 INDICATIONS: Renal insufficiency. Right kidney measures 12.5 cm in length. Left kidney measures 13. 5 cm in length. The cortical thickn ess appears preserved. There is mild increased cortical echogenicity in both kidneys. There is no hyd ronephrosis or mass lesion seen. The bladder is mildly distended and appears unremarkable. IMPRESSION: Kidneys show mild increased cortical echogenicity consistent with medical renal disease. POS: [facility]
--- NOTE | 2018-08-15 14:08 | RAD ---
PA AND LATERAL CHEST: Date: 08/15/18 HISTORY: Pneumonia. COMPARISON: 08/12/18. FINDINGS: There has been interval development of a moderate sized right pneumothorax. Interstitial and parenchy mal changes are again seen within the right mid lung zone, likely related to pneumonia. There is ques tion of tiny right pleural effusion. The left lung remains clear. Cardiac silhouette is within normal limits. Vascular calcification thoracic aorta. No other interval change. IMPRESSION: 1. Interval development of a moderate sized right pneumothorax. 2. Interstitial and parenchymal changes right mid lung zone, worrisome for infectious process/pneumo bin. Above findings concerning pneumothorax were discussed with Dr. Strauss on 08/15/18 at 0959 hours. CODE CR. POS: [facility]
--- NOTE | 2018-08-15 14:09 | RAD ---
SUPINE AP ABDOMINAL RADIOGRAPH 08/15/18 HISTORY: Pneumonia. FINDINGS: Bowel gas pattern is nonspecific with small amount of retained fecal material seen throughout the col on. Vascular calcifications are see in the abdominal aorta and involving the iliac arteries. Degenera tive changes are noted in the spine. There is linear density seen at the most medial right lung base. Chest x-ray also obtained this date did demonstrate evidence of a pneumothorax which is likely the e tiology for this finding. There is a pneumothorax seen at the right lung base. Vascular calcification s overlie the left upper quadrant. IMPRESSION: 1. Pneumothorax right lung base. 2. Nonspecific bowel gas pattern. 3. Vascular calcifications with multiple phleboliths overlying the pelvis. POS: [facility]
--- NOTE | 2018-08-15 14:19 | RAD ---
PORTABLE AP CHEST RADIOGRAPH: Date: 08-15-18 History: Right sided pneumothorax post thoracostomy tube, pneumonia. Comparison: 08-15-18 at 9:55 a.m. FINDINGS: There has been interval placement of a small caliber right sided thoracostomy tube. There has been re solution of the right sided pneumothorax, a definite pneumothorax is not visualized on the current ex am. Interstitial and patchy parenchymal changes right midlung zone are again seen with mild increase in right perihilar interstitial densities, again worrisome for infectious process. Left lung remains clear. Cardiac silhouette and pulmonary vasculature are within normal limits. No other interval watters e. IMPRESSION: 1. Interval reexpansion of the right lung without obvious pneumothorax seen on this exam. Right sided thoracostomy tube is now in place overlying the right upper lung zone. 2. Increased interstitial and patchy parenchymal changes in the right perihilar region and right midl mariia zone, worrisome for infectious process/pneumonia. Follow up to resolution is recommended. 3. Stable remote left sided rib fractures. POS: [facility]
[2018-08-15] MEDS: Acetaminophen 325 MG TAB PO PRN (14:37)
[2018-08-15] MEDS: Rosuvastatin 10 MG TAB PO SCH (20:09)
--- NOTE | 2018-08-15 21:24 | PDOC.PN ---
- Subjective Encounter Start Date: 08/15/18 Encounter Start Time: 09:20 Had a very difficult time last night. Increasing SOB and discomfort across the upper abdomen. Xanax helped a little. - Objective Resuscitation Status: Resuscitation Status FULL:Full Resuscitation Vital Signs & Weight: Vital Signs (12 hours) Temp Pulse Resp BP Pulse Ox 08/15/18 19:00 97.7 F 103 H 21 H 142/65 H 93 L 08/15/18 18:03 93 20 92 L 08/15/18 13:29 91 18 93 L 08/15/18 12:00 92 L 08/15/18 11:25 99 08/15/18 10:30 92 L Weight Admit Weight 216 lb Weight 219 lb 9 oz I&O: 08/14/18 08/15/18 08/16/18 06:59 06:59 06:59 Intake Total 731 2350 1100 Balance 731 2350 1100 Result Diagrams: 08/15/18 03:36 08/15/18 03:36 Phys Exam - Physical Examination Constitutional: NAD Very diminished. Moreso on right. Some wheezing on left. Cardiovascular: RRR Mildly tachy. Gastrointestinal: soft, non-tender, positive bowel sounds Modestly distended. Musculoskeletal: no edema Psychiatric: A&O x 3 Dx/Plan (1) Pneumonia Code(s): J18.9 - PNEUMONIA, UNSPECIFIED ORGANISM Status: Acute (2) COPD (chronic obstructive pulmonary disease) Status: Acute (3) Abdominal distension (gaseous) Code(s): R14.0 - ABDOMINAL DISTENSION (GASEOUS) Status: Acute (4) Urinary hesitancy Code(s): R39.11 - HESITANCY OF MICTURITION Status: Acute (5) Acute renal failure Status: Acute - Plan * Creat did not improve with hydration overnight. The fluids got started late. Will get renal US, nephrology consult. * CXR, KUB. * * Notified by Rad that patient had R pneumothorax. Contacted Pulmonology and catheter placed. Re-evaluation of patient revealed improved breathing and general color. * discussed with nephrology. Will orally hydrate tonight and recheck labs in am. Suspect it will be better. Patient will need urology follow up for the hesitancy.
[2018-08-15] MEDS: ALPRAZolam 0.25 MG TAB PO PRN (22:32)
--- NOTE | 2018-08-15 22:48 | CON ---
DATE OF CONSULTATION: 08/15/2018 NEPHROLOGY CONSULTATION REASON FOR CONSULTATION: Elevated creatinine. HISTORY OF PRESENT ILLNESS: This is a very pleasant 77-year-old gentleman who presented to the [facility] 3 days ago for acute on chronic respiratory failure, pneumonia, and COPD exacerbation. The patie nt also had a pneumothorax. His creatinine increased from 1.3-3.2 today. The patient has had no yousuf or proteinuria. PAST MEDICAL HISTORY: Significant for atrial fibrillation, sleep apnea, GERD, osteoarthritis, COPD, left knee surgery, EGD, colonoscopy, polypectomy. SOCIOECONOMIC HISTORY: No alcohol use. FAMILY HISTORY: Negative for ESRD. ALLERGIES: Reviewed. HOME MEDICATIONS: List reviewed. REVIEW OF SYSTEMS: A 15-point review of systems was performed and was negative except for positives noted above. GENERAL: Weakness- HEAD: Headache- NECK: No swelling or lumps. NOSE: No epistaxis or discharge. EYES: No diplopia or pain. RESPIRATORY: Dyspnea- CARDIOVASCULAR: Chest pain- GASTROINTESTINAL: Nausea- /SEED ANALYST: Hematuria- MUSCULOSKELETAL: No joint pain. NEUROPSYCHIATIC SYSTEMS: No suicidal ideation. No ideation. SKIN: Denies any rash or ulcer. CONSTITUTIONAL: No fever or chills. PHYSICAL EXAMINATION: GENERAL: Patient is awake, alert. VITAL SIGNS: Afebrile, pulse 95, breathing 16, blood pressure was 130/60. HEAD/NECK: Normocephalic. Atraumatic. EYES: EOMI. No deformity. EARS: Clear. No ulcers. NOSE: Intact. No lesions. MOUTH: Clear. No discharge. THROAT: Clear. No exudate. LUNGS: Clear. No crackles. CARDIAC: S1, S2. No rub. ABDOMEN: Benign. BS+. GENITALIA/RECTUM: De absent. BACK/EXTREMITIES: Edema 0+ Ulcer- NEUROLOGICAL: Alert and motor intact. SKIN: Rash- Bruise- LYMPHATICS: Edema- Ulcer- LABORATORY DATA: Show creatinine is 3.2, BUN 71. Sodium 129. ASSESSMENT AND RECOMMENDATIONS: 1. Acute kidney injury with chronic kidney disease, most likely due to decreased effective arterial blood volume. Agree with holding Lasix. Continue hydration orally. 2. Anemia, stable. 3. Medications based on glomerular filtration rate are appropriate. 4. Proteinuria. Indicates chronic ischemic nephropathy. No indication for dialysis. We will follo w the patient's renal function closely.
[2018-08-16 04:55] LABS: #Lymphocytes 0.7 thou/uL (1.20-3.40); #Monocytes 0.8 thou/uL (0.11-0.59); #Neutrophils 13.6 thou/uL (1.40-6.50); %Basophils 0.3 % (0.0-1.0); %Eosinophils 0.1 % (0.0-10.0); %Lymphocytes 4.3 % (21.0-51.0); %Monocytes 5.2 % (0.0-10.0); Hemoglobin 11.5 g/dL (14.0-18.0); Mean Corpuscular HGB CONC 32.5 g/dL (32.0-36.0); Mean Corpuscular Hemoglobin 28.3 pg (27.0-31.0); Mean Corpuscular Volume 87.2 fL (78.0-98.0); Mean Platelet Volume 7.5 fL (7.4-10.4); Platelet Count 433 thou/uL (130-400); RBC Distribution Width 15.9 % (11.5-14.5); Red Blood Cell (RBC) Count 4.06 mill/uL (4.70-6.10); White Blood Cell (WBC) Count 15.1 thou/uL (4.8-10.8)
[2018-08-16 05:06] LABS: Anion Gap 17 mmol/L (10-20); BUN (Urea Nitrogen) 89 mg/dL (8.4-25.7); Calc. Creatinine Clearance 24 mL/min (70-130); Calcium 8.5 mg/dL (7.8-10.44); Carbon Dioxide 16 mmol/L (23-31); Chloride 101 mmol/L (98-107); Estimated GFR-MDRD 17; Glucose 194 mg/dL (83-110); Potassium 4.7 mmol/L (3.5-5.1); Sodium 129 mmol/L (136-145)
[2018-08-16] MEDS: Mometasone/Formoterol 120 PUFF INHALER INH SCH ×2 (05:40→17:48)
--- NOTE | 2018-08-16 07:58 | RAD ---
PORTABLE CHEST: Date: 08/16/18 INDICATION: Follow-up pneumothorax. COMPARISON: 08/15/18. FINDINGS: Small caliber chest tube is again noted overlying the right lung. There is no diffuse subcutaneous em physema over the entire chest, which has occurred since the prior exam. Lungs appear well aerated wit h no evidence of significant pneumothorax. Vascular and interstitial markings appear prominent and th ere is mild cardiomegaly. More confluent infiltrate in the right mid lung abutting the fissure is aga in seen and was noted yesterday. IMPRESSION: Diffuse subcutaneous emphysema now apparent. Lungs show no significant interval change. POS: [facility]
[2018-08-16] MEDS: Amlodipine 10 MG TAB PO SCH (09:03)
[2018-08-16] MEDS: guaiFENesin ER 600 MG TAB PO SCH ×3 (09:03→22:26)
--- NOTE | 2018-08-16 10:20 | PDOC.PN ---
- Subjective Encounter Start Date: 08/16/18 Encounter Start Time: 10:18 Still feeling better. BROWN decreased, recovery time decreased. - Objective Resuscitation Status: Resuscitation Status FULL:Full Resuscitation Vital Signs & Weight: Vital Signs (12 hours) Temp Pulse Resp BP BP Pulse Ox 08/16/18 09:30 95 18 93 L 08/16/18 09:03 98 151/70 H 08/16/18 08:17 97.8 F 99 18 151/70 H 93 L 08/16/18 08:00 93 L 08/16/18 05:40 95 16 94 L 08/16/18 05:38 95 16 94 L 08/16/18 04:00 97.7 F 90 18 142/75 H 90 L 08/16/18 02:25 94 18 08/15/18 23:00 97.7 F 90 18 148/64 H 93 L Weight Admit Weight 216 lb Weight 219 lb 9 oz I&O: 08/15/18 08/16/18 08/17/18 06:59 06:59 06:59 Intake Total 2350 1600 Balance 2350 1600 Result Diagrams: 08/16/18 03:51 08/16/18 03:51 Phys Exam - Physical Examination Constitutional: NAD Still has some tachypnea Much improved air exchange. Still generally diminished. Cardiovascular: RRR, no significant murmur Occ ectopy. Gastrointestinal: soft, non-tender, no distention, positive bowel sounds 2+ edema Psychiatric: normal affect, A&O x 3 Dx/Plan (1) Pneumonia Code(s): J18.9 - PNEUMONIA, UNSPECIFIED ORGANISM Status: Acute Comment: Persistent on CXR. On cefepime. (2) COPD (chronic obstructive pulmonary disease) Status: Acute Comment: Complicated with pneumonia and pneumothorax. Nebs, steroids, oxygen. Pulmonary following. (3) Abdominal distension (gaseous) Code(s): R14.0 - ABDOMINAL DISTENSION (GASEOUS) Status: Acute Comment: Improved. (4) Urinary hesitancy Code(s): R39.11 - HESITANCY OF MICTURITION Status: Acute Comment: Seems to have retention and incomplete voiding. Will check PVR. Given the worsening renal function without other good explanation, will check CT abdomen and pelvic and consult Urology. Start tamsulosin. (5) Acute renal failure Status: Acute Comment: Worsening renal function. nephrology following. Appears to be borderline hypervolemic and cannot push fluids. Urology workup. (6) Subcutaneous emphysema after procedure Code(s): T81.82XA - EMPHYSEMA (SUBCUTANEOUS) RESULTING FROM A PROCEDURE, INIT Status: Acute Comment: Benign. (7) Atrial fibrillation Code(s): I48.91 - UNSPECIFIED ATRIAL FIBRILLATION Status: Acute Comment: Intermittent. Has been in sinus. Historically only had it when having BRAD. Therapeutic on INR and rate is appropriate to the clinical scenario. - Plan * As above.
--- NOTE | 2018-08-16 10:49 | PRG ---
DATE OF SERVICE: 08/16/2018 SUBJECTIVE: The patient is breathing better, but he has now developed diffuse subcutaneous emphysema . PHYSICAL EXAMINATION: VITAL SIGNS: Temperature 97.8, pulse 95, respirations 18, blood pressure 151/70, O2 sat 93% on 3 lit ers. HEENT: Unremarkable. NECK: He has subcutaneous air up to the angle of his chin. LUNGS: Fairly clear bilaterally. CARDIOVASCULAR: S1 and S2 regular. ABDOMEN: Soft. EXTREMITIES: No edema. LABORATORY DATA AND IMAGING: His chest x-ray shows that his lung is expanded, but he has diffuse sub cutaneous emphysema noted. Labs are notable for white blood cell count of 15.1, platelet count of 43 3. Sodium of 129, BUN 89, creatinine 3.5. Chest x-ray was reviewed in detail. ASSESSMENT: 1. Spontaneous pneumothorax. 2. Right-sided pneumonia. 3. Subcutaneous emphysema. PLAN: 1. I flushed the chest tube out. Surprisingly, he does not have much in the way of air leak remaini ng. 2. Continue the antibiotics for pneumonia. 3. Continue IV steroids. 4. Hopefully, I will be able to get this tube out in the next day or two. X-ray will be rechecked t omorrow.
[2018-08-16] MEDS ORDERED: Tamsulosin HCl 0.4 MG CAP PO SCH (11:00)
--- NOTE | 2018-08-16 11:57 | PRG ---
DATE OF SERVICE: 08/16/2018 SUBJECTIVE: This is a 77-year-old gentleman being seen for acute kidney injury. The patient denies any nausea, vomiting or chest pain. PHYSICAL EXAMINATION: GENERAL: The patient is awake, alert. VITAL SIGNS: Afebrile, pulse 98, breathing 16, blood pressure 151/70. HEAD/NECK: Normocephalic. Atraumatic. EYES: EOMI. No deformity. EARS: Clear. No ulcers. NOSE: Intact. No lesions. MOUTH: Clear. No discharge. THROAT: Clear. No exudate. LUNGS: Clear. No crackles. CARDIAC: S1, S2. No rub. ABDOMEN: Benign. BS+. GENITALIA/RECTUM: De absent. BACK/EXTREMITIES: Edema 0+ Ulcer- NEUROLOGICAL: Alert and motor intact. SKIN: Rash- Bruise- LYMPHATICS: Edema- Ulcer- LABORATORY DATA: Show hemoglobin 11.5 and creatinine 3.5. ASSESSMENT AND PLAN: 1. Acute kidney injury with chronic kidney disease stage 4, multifactorial. I will start the patien t on gentle hydration. 2. Hypertension and anemia, stable. 3. Medications based on glomerular filtration rate are appropriate. No indication for dialysis.
--- NOTE | 2018-08-16 12:15 | EKG ---
Test Reason : Blood Pressure : / mmHG Vent. Rate : 106 BPM Atrial Rate : 106 BPM P-R Int : 178 ms QRS Dur : 080 ms QT Int : 346 ms P-R-T Axes : 054 -11 034 degrees QTc Int : 459 ms Sinus tachycardia Possible Left atrial enlargement Abnormal ECG Confirmed by ALLI STEWART ([id number]), editor publications CHAVEZ QUINTANILLA ([id number]) on 08/16/2018 12:15:08 PM Referred By: PAT Confirmed By:ALLI STEWART
[2018-08-16] MEDS: Losartan 25 MG TAB PO SCH (13:23)
[2018-08-16] MEDS: Sodium Chloride 0.9% 1,000 ML IV SCH (13:24)
[2018-08-16] MEDS: Cefepime 2 GM in Sodium Chloride 0.9% 100 ML IVPB SCH ×2 (13:24→22:27)
[2018-08-16 13:32] LABS: Bilirubin Negative (Negative); Blood, Urine Moderate (Negative); Clarity CLOUDY (Clear); Glucose, Urine (Dipstick) Negative (Negative); Leukocyte Negative (Negative); Nitrite Negative (Negative); Protein, Urine (Dipstick) Negative (Neg-Trace); Urobilinogen 0.2 mg/dL (0.2-1.0)
[2018-08-16 13:34] LABS: Bacteria/HPF None Seen HPF (None Seen); Hyaline Casts/LPF 4-6 HYALINE CAST LPF (0-3 Hyaline); Pathc Cast-AUWi Flag 1.16 (0-2.49); RBC/HPF 0-3 HPF (0-3); Renal Epithelial None Seen HPF (0-3); Squamous Epithelial 0-3 HPF (0-3); Transitional Epithelial NONE SEEN HPF (0-3); WBC/HPF None Seen HPF (0-3)
--- NOTE | 2018-08-16 14:09 | CON ---
DATE OF CONSULTATION: 08/16/2018 PRIMARY CARE PHYSICIAN: Gabriel Mary M.D. REFERRING: Gabriel Strauss M.D. with Hospitalist regarding BPH, urinary hesitancy. HISTORY OF PRESENT ILLNESS: Mr. Mart is a pleasant 77-year-old male, currently admitted due to exacerbation of his COPD, pneumonia, pneumothorax. The patient was seen by Pulmonology and Nephrology. There are no strict I's and O's; however, due to urinary hesitancy, Urologic consultation was obtained. The patient denies prior assessment by a urologist, no prior history of BPH or prostate cancer, no family history of prostate cancer. He denies history of STDs, gross hematuria, or prior history of UTI. Currently, he states that he has hesitancy, urinary flow is variable, somewhat weak, has some pressure in the lower abdomen; however, this is nonspecific. He denies constipation. On admitting, urinalysis was grossly unremarkable. Blood culture is negative; however, urine culture was not obtained. He was admitted with a creatinine of 2.7, currently 3.5. Renal ultrasound was obtained by the Hospitalist, which demonstrated no evidence of hydronephrosis, somewhat distended bladder. No mass appreciated. There is some echogenicity in the kidneys consistent with medical renal disease. A CT has been obtained by Hospitalist as well with contrast later today, due to worsening creatinine. PAST MEDICAL HISTORY: Atrial fibrillation, sleep apnea, GERD, COPD, osteoarthritis, obesity. PAST SURGICAL HISTORY: Includes EGD and colonoscopy, polypectomy, left knee surgery. SOCIAL HISTORY: He has extended family at bedside. He is . Denies illicit drug use. FAMILY HISTORY: Noncontributory. ALLERGIES: No known drug allergies. CURRENT MEDICATIONS: Include Flomax 1 p.o. daily, which was started this morning; Ambien; simethicone; Senokot; Crestor; MiraLax; Protonix; Zofran; Solu- Medrol; milk of magnesium; Cozaar; Claritin; hydralazine; Mucinex; Robitussin; Catapres; cefepime; Norvasc; Xanax; albuterol; ipratropium inhalers; hydrocodone 5/325. PHYSICAL EXAMINATION: VITAL SIGNS: Stable. He is 93% on 3 liters, blood pressure 150/70. I's and O' s, there is no strict documentation of his output. GENERAL: The patient is in no acute distress. HEENT: Grossly unremarkable. HEART: Regular rate. LUNGS: Decreased inspiratory effort. ABDOMEN: Morbidly obese, protuberant. GENITOURINARY EXAM: Demonstrates circumcised phallus. Meatus is grossly unremarkable. Testes are descended. Bladder scan reads over 500 mL. DIGITAL RECTAL EXAM: Demonstrates prostate approximately 40/45 grams, but no discrete nodularity. I did pass a 16-[place] De catheter without significant resistance and approximately 600-700 mL of dilute urine clear obtained, attached to gravity bag. PERTINENT LABS AND IMAGING: White count 15, hemoglobin 11, platelets 432. INR is 3.4, PTT of 59, baseline creatinine 0.8-1.3. He is admitted with creatinine of 2.7, this morning is 3.58. Admitting UA, 30 of protein, trace leukocytes, otherwise unremarkable. No culture obtained. Blood culture demonstrates coag- negative staph. IMPRESSION/PLAN: Mr. Mart is a 77-year-old male, currently admitted due to, 1. Chronic obstructive pulmonary disease exacerbation. 2. Community-acquired pneumonia. 3. Acute kidney injury, likely multifactorial. 4 BPH urinary retention, with postvoid residual of 600-700 mL. Due to significant PVR, I do recommend indwelling De catheter for bladder rest. This will remain in situ at least a week or two and we will initiate a voiding trial, which can certainly be performed at my office as an outpatient. I do agree with Flomax, will increase to b.i.d. add Avodart 0.5 mg 1 p.o. daily. Continue indwelling De catheter. A repeat UA C and S is obtained. MTDD
--- NOTE | 2018-08-16 14:23 | CT ---
CT ABDOMEN AND PELVIS WITHOUT IV CONTRAST: Date: 08/16/18 PROVIDED CLINICAL HISTORY: Acute renal failure. FINDINGS: Comparison made with the examination dated 03/06/17. Small pneumothorax is visualized on the right. There is chest wall gas noted related to known chest t ube. The solid abdominal organs demonstrate no acute abnormality. Hepatic cysts and left adrenal nodule ap pear stable There is no evidence for bowel obstruction. There is no localized inflammatory fat stranding, free fl uid, or free air apparent. Ed catheter is noted within the urinary bladder with associated bladder gas. Vascular calcifications are noted The osseous structures demonstrate no concerning osteoblastic or osteolytic lesions. IMPRESSION: 1. No evidence for hydronephrosis. 2. Known right pneumothorax and associated chest wall emphysema. POS: [facility]
[2018-08-16] MEDS: Tamsulosin HCl 0.4 MG CAP PO SCH (22:26)
[2018-08-16] MEDS: ALPRAZolam 0.25 MG TAB PO PRN (22:26)
[2018-08-16] MEDS: Rosuvastatin 10 MG TAB PO SCH (22:26)
[2018-08-16] MEDS: Calcium Carbonate 500 MG ChewTAB PO PRN (22:32)
[2018-08-17] MEDS: Mometasone/Formoterol 120 PUFF INHALER INH SCH ×2 (05:39→18:47)
[2018-08-17 06:09] LABS: Anion Gap 15 mmol/L (10-20); BUN (Urea Nitrogen) 101 mg/dL (8.4-25.7); Calc. Creatinine Clearance 21 mL/min (70-130); Calcium 8.1 mg/dL (7.8-10.44); Carbon Dioxide 17 mmol/L (23-31); Chloride 99 mmol/L (98-107); Estimated GFR-MDRD 14; Glucose 183 mg/dL (83-110); Potassium 4.6 mmol/L (3.5-5.1); Sodium 126 mmol/L (136-145)
[2018-08-17 06:14] LABS: Band 4 % (5-11); Hemoglobin 10.8 g/dL (14.0-18.0); Lymphocytes 5 % (21-51); MDiff Complete? YES; Mean Corpuscular HGB CONC 31.7 g/dL (32.0-36.0); Mean Corpuscular Hemoglobin 27.6 pg (27.0-31.0); Mean Corpuscular Volume 87.1 fL (78.0-98.0); Mean Platelet Volume 7.8 fL (7.4-10.4); Monocytes 4 % (0-10); Myelocyte 1 % (0-0); Neutrophil 86 % (42-75); PLT Morphology Comment Appears Increased; Platelet Count 452 thou/uL (130-400); Red Blood Cell (RBC) Count 3.92 mill/uL (4.70-6.10); White Blood Cell (WBC) Count 18.3 thou/uL (4.8-10.8)
--- NOTE | 2018-08-17 07:48 | RAD ---
PORTABLE CHEST: Date: 08/17/18 HISTORY: Follow-up pneumothorax. COMPARISON: 08/16/18. FINDINGS: Small caliber right chests tube is unchanged in position. Subcutaneous emphysema is again noted, slig htly less pronounced. No evidence of significant pneumothorax. Infiltrate in the right mid lung is less pronounced. Mild ca rdiomegaly and mild vascular congestion remain. Otherwise no significant change. POS: [facility]
[2018-08-17] MEDS: Losartan 25 MG TAB PO SCH (08:33)
[2018-08-17] MEDS: Amlodipine 10 MG TAB PO SCH (08:33)
[2018-08-17] MEDS: Tamsulosin HCl 0.4 MG CAP PO SCH ×2 (08:33→22:04)
[2018-08-17] MEDS: guaiFENesin ER 600 MG TAB PO SCH ×3 (08:34→22:04)
[2018-08-17] MEDS ORDERED: Tamsulosin HCl 0.4 MG CAP PO SCH (09:00)
[2018-08-17] MEDS: Dutasteride 0.5 MG CAP PO SCH (12:08)
[2018-08-17] MEDS: Milk Of Magnesia 30 ML UDCUP PO PRN (12:09)
[2018-08-17] MEDS: Sodium Chloride 0.9% 1,000 ML IV SCH (12:09)
--- NOTE | 2018-08-17 12:09 | PRG ---
DATE OF SERVICE: 08/17/2018 SUBJECTIVE: He feels much better. He says he has much less subcutaneous air. OBJECTIVE: VITAL SIGNS: On exam, his temperature is 97.6, pulse 96, respirations 18, O2 sat 93% on 3 liters, bl ood pressure 145/56. HEENT: Unremarkable. NECK: No JVD. LUNGS: Clear bilaterally. CARDIAC: S1 and S2, regular. ABDOMEN: Soft. EXTREMITIES: He has subcutaneous air in his neck, around his right side of chest, and down his right arm. His chest x-ray showed resolution of pneumothorax and much less subcutaneous air. His Heimlich valve too was not functional this morning. I flushed it out, tested it under water seal and there was no air leak. ASSESSMENT: 1. Spontaneous pneumothorax. 2. Community-acquired pneumonia. 3. Chronic obstructive pulmonary disease exacerbation. 4. Acute kidney injury. PLAN: I have pulled out the chest tube. I think he can go ahead and be switched over to oral antibi otics. Increase activity as tolerated. Switch to oral steroids. I would anticipate him being able to go to rehab or be discharged by tomorrow if okay with everybody else.
[2018-08-17] MEDS: Cefepime 2 GM in Sodium Chloride 0.9% 100 ML IVPB SCH (12:10)
--- NOTE | 2018-08-17 12:20 | PRG ---
DATE OF SERVICE: 08/17/2018 SUBJECTIVE: Had some irritation due to De catheter; however, tolerating it uneventfully. OBJECTIVE: VITAL SIGNS: Stable, 93% on 3 liters. I's and O's 1620 in and 1550 out. Urine output pink tinged, clear. ABDOMEN: Soft, obese, protuberant, no rigidity, no rebound. PERTINENT LABORATORY DATA: White count is increased to 18,000, hemoglobin 10.8 , platelets 452. INR today is 3.0. Renal function, creatinine has increased to 4.1, BUN 101. Urine culture negative. CT of the abdomen and pelvis, which I reviewed myself as well demonstrating no evidence of hydronephrosis. Air in the bladder is consistent with De catheter that was placed just prior to obtaining CT, right pneumothorax with chest wall emphysema. IMPRESSION AND PLAN: 1. Mr. Rios is a pleasant 77-year-old male with history of pneumonia, pneumothorax, chronic obstructive pulmonary disease exacerbation. 2. Acute kidney injury, multifactorial. 3. Benign prostatic hypertrophy with urinary retention, postvoid residual 600- 700 mL. Although he has significant urinary retention, there is no evidence of hydronephrosis when urinary retention. 4. Renal insufficiency is due to medical renal disease. Continue indwelling De catheter. I did increase his Flomax to b.i.d., Avodart added. When patient is ready to be discharged, he will go home with an indwelling De catheter, followup appointment in chart with me for a voiding trial in a few weeks. patient informed. MTDAnn
--- NOTE | 2018-08-17 12:45 | PRG ---
DATE OF SERVICE: 08/17/2018 SUBJECTIVE: This is a 77-year-old gentleman being seen for end-stage renal disease. The patient den ies any nausea, vomiting or chest pain. OBJECTIVE: GENERAL: Patient is awake, alert. VITAL SIGNS: Afebrile, pulse , breathing 16, blood pressure 145/56. GENERAL APPEARANCE AND MENTAL STATUS: Fair. HEAD/NECK: Normocephalic. Atraumatic. EYES: EOMI. No deformity. EARS: Clear. No ulcers. NOSE: Intact. No lesions. MOUTH: Clear. No discharge. THROAT: Clear. No exudate. LUNGS: Clear. No crackles. CARDIAC: S1, S2. No rub. ABDOMEN: Benign. BS+. GENITALIA/RECTUM: De absent. BACK/EXTREMITIES: Edema 0+ Ulcer- NEUROLOGICAL: Alert and motor intact. SKIN: Rash- Bruise- LYMPHATICS: Edema- Ulcer- LABORATORY: Show hemoglobin 10.8, potassium 4.6, creatinine 4.1. ASSESSMENT AND RECOMMENDATIONS: 1. Acute kidney injury with chronic kidney disease, multifactorial. We will stop the ARB. Other po ssibilities could be medication abused acute tubular necrosis and no indication for dialysis. 2. Congestive heart failure, stop IV fluids. 3. Hypertension, stable. 4. Anemia, stable. 5. Medications based on glomerular filtration rate are appropriate. No indication for dialysis at t his time.
--- NOTE | 2018-08-17 13:50 | PDOC.PN ---
- Subjective Encounter Start Date: 08/17/18 Encounter Start Time: 08:40 Pt seen for followup re: acute on chronic hypoxic respiratory failure. Denies chest pain, shortness of breath, fevers or chills. - Objective Resuscitation Status: Resuscitation Status FULL:Full Resuscitation MAR Reviewed: Yes Vital Signs & Weight: Vital Signs (12 hours) Temp Pulse Resp BP BP Pulse Ox 08/17/18 13:30 100 18 94 L 08/17/18 09:24 96 18 93 L 08/17/18 08:33 96 145/56 H 08/17/18 07:09 97.6 F 96 18 145/56 H 92 L 08/17/18 05:39 91 16 94 L 08/17/18 05:36 91 16 94 L 08/17/18 04:00 97.4 F L 92 18 128/72 94 L 08/17/18 02:05 93 16 Weight Admit Weight 216 lb Weight 219 lb 9 oz I&O: 08/16/18 08/17/18 08/18/18 06:59 06:59 06:59 Intake Total 1600 1620 Output Total 1550 Balance 1600 70 Result Diagrams: 08/17/18 04:07 08/17/18 04:07 Additional Labs: Labs reviewed by me Phys Exam - Physical Examination Constitutional: NAD HEENT: moist MMs Neck: supple Respiratory: clear to auscultation bilateral R chest tube Cardiovascular: RRR Gastrointestinal: soft Neurological: moves all 4 limbs Psychiatric: normal affect Dx/Plan (1) Acute and chronic respiratory failure with hypoxia Code(s): J96.21 - ACUTE AND CHRONIC RESPIRATORY FAILURE WITH HYPOXIA Status: Acute Comment: Improving (2) NNEKA (acute kidney injury) Code(s): N17.9 - ACUTE KIDNEY FAILURE, UNSPECIFIED Status: Acute Comment: nephrology following, ARB held (3) Pneumothorax Code(s): J93.9 - PNEUMOTHORAX, UNSPECIFIED Status: Acute Comment: s/p chest tube (4) HTN (hypertension) Code(s): I10 - ESSENTIAL (PRIMARY) HYPERTENSION Status: Chronic Comment: reasonable control (5) BRAD (obstructive sleep apnea) Code(s): G47.33 - OBSTRUCTIVE SLEEP APNEA (ADULT) (PEDIATRIC) Status: Chronic Comment: pt to use CPAP while asleep - Plan * . Review of Systems - Review of Systems Respiratory: negative: Cough, Shortness of Breath, SOB with Excertion, Pleuritic Pain, Wheezing Cardiovascular: negative: chest pain, palpitations, orthopnea, paroxysmal nocturnal dyspnea, edema, light headedness - Medications/Allergies Allergies/Adverse Reactions: Allergies Allergy/AdvReac Type Severity Reaction Status Date / Time No Known Allergies Allergy Unverified 05/09/18 09:02 Medications: Current Medications Acetaminophen (Tylenol) 650 mg PO Q4H PRN PRN Reason: Headache/Fever/Mild Pain (1-3) Last Admin: 08/15/18 14:37 Dose: 650 mg Hydrocodone Bitart/Acetaminophen ([place] 5/325) 1 tab PO Q4H PRN PRN Reason: Moderate Pain (4-6) Albuterol/Ipratropium (Duoneb) 3 ml NEB [id number] [facility] Last Admin: 08/17/18 13:30 Dose: 3 ml Alprazolam (Xanax) 0.25 mg PO QIDPRN PRN PRN Reason: Anxiety/Agitation Last Admin: 08/16/18 22:26 Dose: 0.25 mg Amlodipine Besylate (Norvasc) 10 mg PO DAILY [facility] Last Admin: 08/17/18 08:33 Dose: 10 mg Artificial Tears (Tears Naturale) 2 drop EA EYE PRN PRN PRN Reason: Dry Eyes Bisacodyl (Dulcolax) 10 mg PO DAILYPRN PRN PRN Reason: Constipation Last Admin: 08/12/18 12:52 Dose: 10 mg Bisacodyl (Dulcolax) 10 mg [place] DAILYPRN PRN PRN Reason: Constipation Calcium Carbonate (Tums) 1,000 mg PO Q4H PRN PRN Reason: Heartburn or Indigestion Last Admin: 08/16/18 22:32 Dose: 1,000 mg Cefdinir (Omnicef) 600 mg PO DAILY [facility] Clonidine (Catapres) 0.1 mg PO Q4H PRN PRN Reason: SBP > 180 Dutasteride (Avodart) 0.5 mg PO DAILY [facility] Last Admin: 08/17/18 12:08 Dose: 0.5 mg Guaifenesin (Mucinex) 600 mg PO TID [facility] Last Admin: 08/17/18 08:34 Dose: 600 mg Guaifenesin (Robitussin Sf) 200 mg PO Q4H PRN PRN Reason: Cough Last Admin: 08/13/18 20:34 Dose: 200 mg Hydralazine HCl (Apresoline) 10 mg SLOW IVP Q4H PRN PRN Reason: SBP > 180 and HR < 70 Loperamide HCl (Imodium) 2 mg PO PRN PRN PRN Reason: Diarrhea/Loose Stools Loratadine (Claritin) 10 mg PO DAILYPRN PRN PRN Reason: Sinus Symptoms Magnesium Hydroxide (Milk Of Magnesium) 30 ml PO DAILYPRN PRN PRN Reason: Constipation Last Admin: 08/17/18 12:09 Dose: 30 ml Mineral Oil/White Petrolatum (Eucerin Cream) 0 gm TOP BIDPRN PRN PRN Reason: Dry Skin Mometasone Furoate/Formoterol Fumar (Dulera 200 Mcg/5 Mcg Inhaler) 2 puff INH BID-RT SHORTY Last Admin: 08/17/18 05:39 Dose: 2 puff Ondansetron HCl (Zofran Odt) 4 mg PO Q6H PRN PRN Reason: Nausea/Vomiting Ondansetron HCl (Zofran) 4 mg IVP Q6H PRN PRN Reason: Nausea/Vomiting Pantoprazole Sodium (Protonix) 40 mg PO DAILY SHORTY Last Admin: 08/17/18 08:33 Dose: 40 mg Polyethylene Glycol (Miralax) 17 gm PO DAILYPRN PRN PRN Reason: Constipation Prednisone (Prednisone) 20 mg PO BID SHORTY Rosuvastatin Calcium (Crestor) 10 mg PO HS [facility] Last Admin: 08/16/18 22:26 Dose: 10 mg Senna/Docusate Sodium (Senokot S) 2 tab PO BID PRN PRN Reason: Constipation Last Admin: 08/12/18 17:13 Dose: 2 tab Simethicone (Mylicon Chewable) 80 mg PO TIDPRN PRN PRN Reason: . Last Admin: 08/14/18 18:49 Dose: 80 mg Sodium Chloride ([place] Nasal [place] 0.65%) 0 ml EA NARE QIDPRN PRN PRN Reason: Nasal Congestion Sodium Chloride (Flush - Normal Saline) 10 ml IVF Q12HR SHORTY Last Admin: 08/17/18 08:33 Dose: 10 ml Sodium Chloride (Flush - Normal Saline) 10 ml IVF PRN PRN PRN Reason: Saline Flush Last Admin: 08/14/18 05:19 Dose: 10 ml Tamsulosin HCl (Flomax) 0.4 mg PO BID SHORTY Last Admin: 08/17/18 08:33 Dose: 0.4 mg Throat Lozenges (Cepastat Lozenges) 1 ann PO Q2H PRN PRN Reason: Sore Throat Zolpidem Tartrate (Ambien) 5 mg PO HSPRN PRN PRN Reason: Insomnia
[2018-08-17] MEDS: Calcium Carbonate 500 MG ChewTAB PO PRN (14:39)
[2018-08-17] MEDS: predniSONE 20 MG TAB PO SCH (22:04)
[2018-08-17] MEDS: Rosuvastatin 10 MG TAB PO SCH (22:04)
[2018-08-17] MEDS: ALPRAZolam 0.25 MG TAB PO PRN (22:04)
[2018-08-18 05:48] LABS: Anion Gap 14 mmol/L (10-20); BUN (Urea Nitrogen) 119 mg/dL (8.4-25.7); Calc. Creatinine Clearance 16 mL/min (70-130); Calcium 8.1 mg/dL (7.8-10.44); Carbon Dioxide 19 mmol/L (23-31); Chloride 97 mmol/L (98-107); Estimated GFR-MDRD 11; Glucose 124 mg/dL (83-110); Potassium 4.9 mmol/L (3.5-5.1); Sodium 125 mmol/L (136-145)
[2018-08-18 06:17] LABS: Band 3 % (5-11); Hemoglobin 10.9 g/dL (14.0-18.0); Lymphocytes 4 % (21-51); MDiff Complete? YES; Mean Corpuscular HGB CONC 31.4 g/dL (32.0-36.0); Mean Corpuscular Hemoglobin 27.2 pg (27.0-31.0); Mean Corpuscular Volume 86.8 fL (78.0-98.0); Mean Platelet Volume 7.6 fL (7.4-10.4); Monocytes 11 % (0-10); Neutrophil 82 % (42-75); Platelet Count 460 thou/uL (130-400); RBC Distribution Width 16.2 % (11.5-14.5); Red Blood Cell (RBC) Count 3.99 mill/uL (4.70-6.10); White Blood Cell (WBC) Count 18.9 thou/uL (4.8-10.8)
[2018-08-18 06:42] LABS: INR-International Normal Ratio 2.4; Prothrombin Time 26.3 SEC (12.0-14.7)
[2018-08-18] MEDS: Mometasone/Formoterol 120 PUFF INHALER INH SCH ×2 (07:08→18:32)
--- NOTE | 2018-08-18 07:20 | PRG ---
DATE OF SERVICE: 08/18/2018 SUBJECTIVE: The patient is resting, at bedside. PHYSICAL EXAMINATION: VITAL SIGNS: Vital signs are stable. Urine output 2700 clear dilute. ABDOMEN: Abdomen is soft, nontender, nondistended. PERTINENT LABORATORY DATA: Creatinine today is 5.32, BUN 119. Sodium 125. CT demonstrates no evidence of hydronephrosis. IMPRESSION AND PLAN: 1. Mr. Mart is a 77-year-old male with history of atrial fibrillation on Coumadin. 2. Currently admitted for pneumonia, pneumothorax. 3. Persistent leukocytosis. 4. Renal insufficiency prerenal/renal. 5. Benign prostatic hypertrophy with urinary retention of 600-700 mL. Continue Flomax b.i.d., Avodart adjunct. From a urologic perspective, there are no further recommendations at this time. He is to continue his indwelling De catheter due to retention for bladder rest. Voiding trial to be initiated in the next week or two. Followup appointment in chart. Nephrology following for renal insufficiency, no indications for hemodialysis at this time per him per Nephrology, will follow peripherally. [place]
[2018-08-18] MEDS: predniSONE 20 MG TAB PO SCH ×2 (07:51→20:45)
[2018-08-18] MEDS: Dutasteride 0.5 MG CAP PO SCH (07:51)
[2018-08-18] MEDS: Tamsulosin HCl 0.4 MG CAP PO SCH ×2 (07:51→20:45)
[2018-08-18] MEDS: Cefdinir 300 MG CAP PO SCH (07:51)
[2018-08-18] MEDS: guaiFENesin ER 600 MG TAB PO SCH ×3 (07:51→20:45)
[2018-08-18] MEDS: Amlodipine 10 MG TAB PO SCH (07:53)
[2018-08-18] MEDS ORDERED: Sodium Chloride 0.9% 1,000 ML IV SCH (12:15)
--- NOTE | 2018-08-18 15:31 | PDOC.PN ---
- Subjective Encounter Start Date: 08/18/18 Encounter Start Time: 08:20 Pt seen for followup re: acute on chronic respiratory failure. Denies chest pain, shortness of breath, fevers or chills. - Objective Resuscitation Status: Resuscitation Status FULL:Full Resuscitation MAR Reviewed: Yes Vital Signs & Weight: Vital Signs (12 hours) Temp Pulse Resp BP BP Pulse Ox 08/18/18 14:51 100 14 08/18/18 10:20 90 14 08/18/18 07:53 84 141/55 H 08/18/18 07:09 80 14 08/18/18 07:00 97.5 F L 90 20 141/55 H 92 L Weight Admit Weight 216 lb Weight 219 lb 9 oz I&O: 08/17/18 08/18/18 08/19/18 06:59 06:59 06:59 Intake Total 1620 980 Output Total 1550 2275 Balance 70 -1295 Result Diagrams: 08/18/18 04:19 08/18/18 04:19 Additional Labs: Labs reviewed by me Phys Exam - Physical Examination Constitutional: NAD HEENT: moist MMs Neck: supple Respiratory: clear to auscultation bilateral Cardiovascular: RRR Gastrointestinal: soft Neurological: moves all 4 limbs Psychiatric: normal affect Dx/Plan (1) Acute and chronic respiratory failure with hypoxia Code(s): J96.21 - ACUTE AND CHRONIC RESPIRATORY FAILURE WITH HYPOXIA Status: Acute Comment: Improved (2) NNEKA (acute kidney injury) Code(s): N17.9 - ACUTE KIDNEY FAILURE, UNSPECIFIED Status: Acute Comment: creatinine worse at 5.32 today, continue to hold ARB. (3) Pneumothorax Code(s): J93.9 - PNEUMOTHORAX, UNSPECIFIED Status: Acute Comment: s/p chest tube placement and removal (4) HTN (hypertension) Code(s): I10 - ESSENTIAL (PRIMARY) HYPERTENSION Status: Chronic Comment: controlled (5) BRAD (obstructive sleep apnea) Code(s): G47.33 - OBSTRUCTIVE SLEEP APNEA (ADULT) (PEDIATRIC) Status: Chronic Comment: CPAP while asleep - Plan * . Review of Systems - Review of Systems Respiratory: negative: Cough, Shortness of Breath, SOB with Excertion, Pleuritic Pain, Wheezing Cardiovascular: negative: chest pain, palpitations, orthopnea, paroxysmal nocturnal dyspnea, edema, light headedness - Medications/Allergies Allergies/Adverse Reactions: Allergies Allergy/AdvReac Type Severity Reaction Status Date / Time No Known Allergies Allergy Unverified 05/09/18 09:02 Medications: Current Medications Acetaminophen (Tylenol) 650 mg PO Q4H PRN PRN Reason: Headache/Fever/Mild Pain (1-3) Last Admin: 08/15/18 14:37 Dose: 650 mg Hydrocodone Bitart/Acetaminophen ([place] 5/325) 1 tab PO Q4H PRN PRN Reason: Moderate Pain (4-6) Albuterol/Ipratropium (Duoneb) 3 ml NEB [id number] [facility] Last Admin: 08/18/18 14:51 Dose: 3 ml Alprazolam (Xanax) 0.25 mg PO QIDPRN PRN PRN Reason: Anxiety/Agitation Last Admin: 08/17/18 22:04 Dose: 0.25 mg Amlodipine Besylate (Norvasc) 10 mg PO DAILY [facility] Last Admin: 08/18/18 07:53 Dose: 10 mg Artificial Tears (Tears Naturale) 2 drop EA EYE PRN PRN PRN Reason: Dry Eyes Bisacodyl (Dulcolax) 10 mg PO DAILYPRN PRN PRN Reason: Constipation Last Admin: 08/12/18 12:52 Dose: 10 mg Bisacodyl (Dulcolax) 10 mg IA DAILYPRN PRN PRN Reason: Constipation Calcium Carbonate (Tums) 1,000 mg PO Q4H PRN PRN Reason: Heartburn or Indigestion Last Admin: 08/17/18 14:39 Dose: 1,000 mg Cefdinir (Omnicef) 600 mg PO DAILY [facility] Last Admin: 08/18/18 07:51 Dose: 600 mg Clonidine (Catapres) 0.1 mg PO Q4H PRN PRN Reason: SBP > 180 Dutasteride (Avodart) 0.5 mg PO DAILY [facility] Last Admin: 08/18/18 07:51 Dose: 0.5 mg Guaifenesin (Mucinex) 600 mg PO TID [facility] Last Admin: 08/18/18 14:52 Dose: 600 mg Guaifenesin (Robitussin Sf) 200 mg PO Q4H PRN PRN Reason: Cough Last Admin: 08/13/18 20:34 Dose: 200 mg Hydralazine HCl (Apresoline) 10 mg SLOW IVP Q4H PRN PRN Reason: SBP > 180 and HR < 70 Sodium Chloride (Normal Saline 0.9%) 1,000 mls @ 30 mls/hr IV .Q24H [facility] Last Admin: 08/18/18 12:41 Dose: 1,000 mls Loperamide HCl (Imodium) 2 mg PO PRN PRN PRN Reason: Diarrhea/Loose Stools Loratadine (Claritin) 10 mg PO DAILYPRN PRN PRN Reason: Sinus Symptoms Magnesium Hydroxide (Milk Of Magnesium) 30 ml PO DAILYPRN PRN PRN Reason: Constipation Last Admin: 08/17/18 12:09 Dose: 30 ml Mineral Oil/White Petrolatum (Eucerin Cream) 0 gm TOP BIDPRN PRN PRN Reason: Dry Skin Mometasone Furoate/Formoterol Fumar (Dulera 200 Mcg/5 Mcg Inhaler) 2 puff INH BID-RT [facility] Last Admin: 08/18/18 07:08 Dose: 2 puff Ondansetron HCl (Zofran Odt) 4 mg PO Q6H PRN PRN Reason: Nausea/Vomiting Ondansetron HCl (Zofran) 4 mg IVP Q6H PRN PRN Reason: Nausea/Vomiting Pantoprazole Sodium (Protonix) 40 mg PO DAILY [facility] Last Admin: 08/18/18 07:51 Dose: 40 mg Polyethylene Glycol (Miralax) 17 gm PO DAILYPRN PRN PRN Reason: Constipation Prednisone (Prednisone) 20 mg PO BID [facility] Last Admin: 08/18/18 07:51 Dose: 20 mg Rosuvastatin Calcium (Crestor) 10 mg PO HS [facility] Last Admin: 08/17/18 22:04 Dose: 10 mg Senna/Docusate Sodium (Senokot S) 2 tab PO BID PRN PRN Reason: Constipation Last Admin: 08/12/18 17:13 Dose: 2 tab Simethicone (Mylicon Chewable) 80 mg PO TIDPRN PRN PRN Reason: . Last Admin: 08/14/18 18:49 Dose: 80 mg Sodium Chloride ([place] Nasal [place] 0.65%) 0 ml EA NARE QIDPRN PRN PRN Reason: Nasal Congestion Sodium Chloride (Flush - Normal Saline) 10 ml IVF Q12HR [facility] Last Admin: 08/18/18 07:51 Dose: 10 ml Sodium Chloride (Flush - Normal Saline) 10 ml IVF PRN PRN PRN Reason: Saline Flush Last Admin: 08/14/18 05:19 Dose: 10 ml Tamsulosin HCl (Flomax) 0.4 mg PO BID [facility] Last Admin: 08/18/18 07:51 Dose: 0.4 mg Throat Lozenges (Cepastat Lozenges) 1 ann PO Q2H PRN PRN Reason: Sore Throat Zolpidem Tartrate (Ambien) 5 mg PO HSPRN PRN PRN Reason: Insomnia
--- NOTE | 2018-08-18 15:55 | PRG ---
DATE OF SERVICE: 08/18/2018 SUBJECTIVE: Patient was seen and examined at bedside and overnight events noted. Patient denies any shortness of breath or chest pain or palpitation. No history of nausea or vomitin g or diarrhea or fever or chills or cramps. OBJECTIVE: GENERAL: This is a well-built male in no apparent distress. VITAL SIGNS: Temperature 97.5, pulse 90, respiratory rate 14, blood pressure 149/55. HEENT: Atraumatic, normocephalic. Oral mucosa is moist. NECK: Supple. CARDIOVASCULAR: S1 and S2 heard. Rate and rhythm regular. RESPIRATORY: Clear to auscultation. GASTROINTESTINAL: Abdomen is soft. MUSCULOSKELETAL: No tenderness. No edema. DERMATOLOGIC: No skin rash. NEUROLOGIC: Alert and awake and oriented x3. No focal neurologic deficits. Moving all the extremit ies. PSYCHIATRIC: Mood and affect normal. LABORATORY DATA: Potassium is 4.9. Sodium is 125, BUN is 119, creatinine is 5.3. ASSESSMENT AND PLAN: 1. Acute kidney injury on chronic kidney disease, stage 3. Renal function getting worse. Avoid nep hrotoxins. We will start gentle hydration. He had to be stopped yesterday. 2. Congestive heart failure. 3. Hypertension. 4. Anemia. 5. Hyponatremia. 6. Hypochloremia. 7. Metabolic acidosis. Plan is to have gentle hydration. Avoid nephrotoxins. We will monitor renal function. Medication l ist reviewed.
--- NOTE | 2018-08-18 16:30 | PRG ---
DATE OF SERVICE: 08/18/2018 SUBJECTIVE: Mr. Mart says he is feeling better. He has less dyspnea on exertion. He would like to start walking with physical therapy. His creatinine anthony over the weekend, but there is no intake and output or daily weights to determine where he is from a volume status standpoint. OBJECTIVE: VITAL SIGNS: Blood pressure 141/55, heart rate is 84, respiratory rates in the teens. He is on [address] cannula. LUNGS: Clear. HEART: Regular rhythm. ABDOMEN: Soft. EXTREMITIES: Without clubbing, cyanosis, or edema. IMAGING: Chest radiograph done to follow up his spontaneous pneumothorax that shows improvement of h is pneumonia and no pneumothorax. IMPRESSION: 1. Chronic obstructive pulmonary disease. 2. Community-acquired pneumonia. 3. Spontaneous pneumothorax. 4. Acute renal insufficiency. He is not receiving any IV fluids at this time, but has reported his intake and output is not accurat e. He tells me that he has not been quantitating his input. He does have a De in, so the output should be accurate. We will continue to follow. I have expla ined to him that he cannot go home until his renal function plateaus.
[2018-08-18] MEDS: Rosuvastatin 10 MG TAB PO SCH (20:45)
[2018-08-18] MEDS: ALPRAZolam 0.25 MG TAB PO PRN (20:47)
[2018-08-18] MEDS: Calcium Carbonate 500 MG ChewTAB PO PRN (20:47)
[2018-08-19 04:57] LABS: INR-International Normal Ratio 1.7; Prothrombin Time 20.1 SEC (12.0-14.7)
[2018-08-19 05:17] LABS: Anion Gap 18 mmol/L (10-20); Calc. Creatinine Clearance 14 mL/min (70-130); Calcium 8.4 mg/dL (7.8-10.44); Carbon Dioxide 16 mmol/L (23-31); Chloride 97 mmol/L (98-107); Estimated GFR-MDRD 9; Glucose 117 mg/dL (83-110); Potassium 4.8 mmol/L (3.5-5.1); Sodium 126 mmol/L (136-145)
[2018-08-19 05:32] LABS: BUN (Urea Nitrogen) 126 mg/dL (8.4-25.7)
[2018-08-19 05:57] LABS: Band 3 % (5-11); Hemoglobin 10.9 g/dL (14.0-18.0); Lymphocytes 5 % (21-51); MDiff Complete? YES; Mean Corpuscular Hemoglobin 27.7 pg (27.0-31.0); Mean Corpuscular Volume 86.3 fL (78.0-98.0); Mean Platelet Volume 7.6 fL (7.4-10.4); Metamyelocyte 2 % (0-0); Monocytes 10 % (0-10); Myelocyte 3 % (0-0); Neutrophil 77 % (42-75); Platelet Count 481 thou/uL (130-400); Red Blood Cell (RBC) Count 3.93 mill/uL (4.70-6.10); White Blood Cell (WBC) Count 18.1 thou/uL (4.8-10.8)
[2018-08-19] MEDS: Mometasone/Formoterol 120 PUFF INHALER INH SCH ×2 (07:32→18:35)
--- NOTE | 2018-08-19 08:09 | PRG ---
DATE OF SERVICE: 08/19/2018 Mr. Mart feels about the same. His intake and output is positive 860. PHYSICAL EXAMINATION: LUNGS: His lungs are clear. HEART: Regular rhythm. ABDOMEN: Abdomen is soft. His fluids are running at 30 mL an hour. His creatinine has gone up to 6.1. His potassium is 4.8, BUN is 126. IMPRESSION: 1. Acute renal failure with pneumonia. I do believe he needs more IV fluid for now. 2. Underlying chronic obstructive pulmonary disease which is clinically stable. He understands that being discharged home from the hospital right now would not be [place]. We will dec rease his steroids today to just q.a.m. We will continue to follow with the other physicians.
[2018-08-19] MEDS: Cefdinir 300 MG CAP PO SCH (09:05)
[2018-08-19] MEDS: Dutasteride 0.5 MG CAP PO SCH (09:06)
[2018-08-19] MEDS: Tamsulosin HCl 0.4 MG CAP PO SCH ×2 (09:06→21:51)
[2018-08-19] MEDS: guaiFENesin ER 600 MG TAB PO SCH ×3 (09:06→21:51)
[2018-08-19] MEDS: predniSONE 20 MG TAB PO SCH (09:06)
[2018-08-19] MEDS: Calcium Carbonate 500 MG ChewTAB PO PRN ×4 (09:06→21:52)
[2018-08-19] MEDS: Amlodipine 10 MG TAB PO SCH (09:06)
[2018-08-19] MEDS: Sodium Chloride 0.9% 1,000 ML IV SCH ×2 (09:08→17:26)
--- NOTE | 2018-08-19 09:21 | RAD ---
SINGLE VIEW OF THE CHEST: Comparison: 08-17-18 History: Fluid overload. FINDINGS: Single view of the chest shows a normal sized cardiomediastinal silhouette. Increased interstitial ma rkings are present. There is a catheter projecting over the right chest on prior examination which is no longer present. No pneumothorax is seen. IMPRESSION: Chronic interstitial lung disease. POS: [facility]
[2018-08-19 10:02] LABS: Bilirubin Negative (Negative); Blood, Urine Large (Negative); Clarity CLOUDY (Clear); Glucose, Urine (Dipstick) Negative (Negative); Leukocyte Small (Negative); Nitrite Negative (Negative); Protein, Urine (Dipstick) 30 mg/dL (Neg-Trace); Specific Gravity, Urine 1.009 (1.002-1.036); Urobilinogen 0.2 mg/dL (0.2-1.0)
[2018-08-19 10:04] LABS: Hyaline Casts/LPF 4-6 HYALINE CAST LPF (0-3 Hyaline); Pathc Cast-AUWi Flag 1.01 (0-2.49); Squamous Epithelial 0-3 HPF (0-3); WBC/HPF 0-3 HPF (0-3)
[2018-08-19 10:10] LABS: Yeast-AUWi Flag 243.5 (0-25.0)
[2018-08-19 10:17] LABS: Creatinine, Urine 62.64 mg/dL (63-166)
[2018-08-19 10:19] LABS: RBC/HPF 21-50 HPF (0-3)
[2018-08-19 10:20] LABS: Bacteria/HPF 1+ HPF (None Seen); Yeast-All Forms Rare HPF (None Seen)
--- NOTE | 2018-08-19 17:22 | PDOC.PN ---
- Subjective Encounter Start Date: 08/19/18 Encounter Start Time: 07:40 Pt seen for followup re: acute renal failure. Denies chest pain, shortness of breath, fevers or chills. - Objective Resuscitation Status: Resuscitation Status FULL:Full Resuscitation MAR Reviewed: Yes Vital Signs & Weight: Vital Signs (12 hours) Temp Pulse Resp BP BP BP Pulse Ox 08/19/18 15:18 97.6 F 96 20 164/68 H 90 L 08/19/18 14:20 91 18 92 L 08/19/18 11:28 97.7 F 92 19 132/69 93 L 08/19/18 11:00 82 18 92 L 08/19/18 09:06 91 152/63 H 08/19/18 08:00 94 L 08/19/18 07:30 91 18 94 L 08/19/18 07:05 97.7 F 89 24 H 152/63 H 90 L Weight Admit Weight 216 lb Weight 219 lb 9 oz I&O: 08/18/18 08/19/18 08/20/18 06:59 06:59 06:59 Intake Total 980 1760 Output Total 2275 900 Balance -1295 860 Result Diagrams: 08/19/18 03:37 08/19/18 03:37 Additional Labs: Labs reviewed by me Phys Exam - Physical Examination Obese HEENT: moist MMs Neck: supple Respiratory: clear to auscultation bilateral Cardiovascular: RRR Gastrointestinal: soft Neurological: moves all 4 limbs Psychiatric: normal affect Dx/Plan (1) NNEKA (acute kidney injury) Code(s): N17.9 - ACUTE KIDNEY FAILURE, UNSPECIFIED Status: Acute Comment: creatinine worsened to 6.11, ARB is on hold. Protonix being stopped as well. (2) Acute and chronic respiratory failure with hypoxia Code(s): J96.21 - ACUTE AND CHRONIC RESPIRATORY FAILURE WITH HYPOXIA Status: Acute Comment: Improved, on cefdinir (3) Pneumothorax Code(s): J93.9 - PNEUMOTHORAX, UNSPECIFIED Status: Acute Comment: s/p chest tube placement and removal (4) HTN (hypertension) Code(s): I10 - ESSENTIAL (PRIMARY) HYPERTENSION Status: Chronic Comment: controlled (5) BRAD (obstructive sleep apnea) Code(s): G47.33 - OBSTRUCTIVE SLEEP APNEA (ADULT) (PEDIATRIC) Status: Chronic Comment: pt is using CPAP while asleep - Plan * . Review of Systems - Review of Systems Constitutional: negative: fever, chills, sweats, weakness, malaise Respiratory: negative: Cough, Shortness of Breath, SOB with Excertion, Pleuritic Pain, Wheezing - Medications/Allergies Allergies/Adverse Reactions: Allergies Allergy/AdvReac Type Severity Reaction Status Date / Time No Known Allergies Allergy Unverified 05/09/18 09:02 Medications: Current Medications Acetaminophen (Tylenol) 650 mg PO Q4H PRN PRN Reason: Headache/Fever/Mild Pain (1-3) Last Admin: 08/15/18 14:37 Dose: 650 mg Hydrocodone Bitart/Acetaminophen (Tram 5/325) 1 tab PO Q4H PRN PRN Reason: Moderate Pain (4-6) Albuterol/Ipratropium (Duoneb) 3 ml NEB [id number] [facility] Last Admin: 08/19/18 14:20 Dose: 3 ml Alprazolam (Xanax) 0.25 mg PO QIDPRN PRN PRN Reason: Anxiety/Agitation Last Admin: 08/18/18 20:47 Dose: 0.25 mg Amlodipine Besylate (Norvasc) 10 mg PO DAILY [facility] Last Admin: 08/19/18 09:06 Dose: 10 mg Artificial Tears (Tears Naturale) 2 drop EA EYE PRN PRN PRN Reason: Dry Eyes Bisacodyl (Dulcolax) 10 mg PO DAILYPRN PRN PRN Reason: Constipation Last Admin: 08/12/18 12:52 Dose: 10 mg Bisacodyl (Dulcolax) 10 mg UT DAILYPRN PRN PRN Reason: Constipation Calcium Carbonate (Tums) 1,000 mg PO Q4H PRN PRN Reason: Heartburn or Indigestion Last Admin: 08/19/18 12:37 Dose: 1,000 mg Cefdinir (Omnicef) 300 mg PO DAILY [facility] Clonidine (Catapres) 0.1 mg PO Q4H PRN PRN Reason: SBP > 180 Dutasteride (Avodart) 0.5 mg PO DAILY [facility] Last Admin: 08/19/18 09:06 Dose: 0.5 mg Guaifenesin (Mucinex) 600 mg PO TID [facility] Last Admin: 08/19/18 15:22 Dose: 600 mg Guaifenesin (Robitussin Sf) 200 mg PO Q4H PRN PRN Reason: Cough Last Admin: 08/13/18 20:34 Dose: 200 mg Hydralazine HCl (Apresoline) 10 mg SLOW IVP Q4H PRN PRN Reason: SBP > 180 and HR < 70 Sodium Chloride (Normal Saline 0.9%) 1,000 mls @ 100 mls/hr IV .Q10H SHORTY Last Admin: 08/19/18 09:08 Dose: 1,000 mls Loperamide HCl (Imodium) 2 mg PO PRN PRN PRN Reason: Diarrhea/Loose Stools Loratadine (Claritin) 10 mg PO DAILYPRN PRN PRN Reason: Sinus Symptoms Magnesium Hydroxide (Milk Of Magnesium) 30 ml PO DAILYPRN PRN PRN Reason: Constipation Last Admin: 08/17/18 12:09 Dose: 30 ml Mineral Oil/White Petrolatum (Eucerin Cream) 0 gm TOP BIDPRN PRN PRN Reason: Dry Skin Mometasone Furoate/Formoterol Fumar (Dulera 200 Mcg/5 Mcg Inhaler) 2 puff INH BID-RT [facility] Last Admin: 08/19/18 07:32 Dose: 2 puff Ondansetron HCl (Zofran Odt) 4 mg PO Q6H PRN PRN Reason: Nausea/Vomiting Ondansetron HCl (Zofran) 4 mg IVP Q6H PRN PRN Reason: Nausea/Vomiting Polyethylene Glycol (Miralax) 17 gm PO DAILYPRN PRN PRN Reason: Constipation Prednisone (Prednisone) 20 mg PO QAM-[facility] Last Admin: 08/19/18 09:06 Dose: 20 mg Rosuvastatin Calcium (Crestor) 10 mg PO HS [facility] Last Admin: 08/18/18 20:45 Dose: 10 mg Senna/Docusate Sodium (Senokot S) 2 tab PO BID PRN PRN Reason: Constipation Last Admin: 08/12/18 17:13 Dose: 2 tab Simethicone (Mylicon Chewable) 80 mg PO TIDPRN PRN PRN Reason: . Last Admin: 08/14/18 18:49 Dose: 80 mg Sodium Chloride ([place] Nasal [place] 0.65%) 0 ml EA NARE QIDPRN PRN PRN Reason: Nasal Congestion Sodium Chloride (Flush - Normal Saline) 10 ml IVF Q12HR [facility] Last Admin: 08/19/18 09:07 Dose: Not Given Sodium Chloride (Flush - Normal Saline) 10 ml IVF PRN PRN PRN Reason: Saline Flush Last Admin: 08/14/18 05:19 Dose: 10 ml Tamsulosin HCl (Flomax) 0.4 mg PO BID [facility] Last Admin: 08/19/18 09:06 Dose: 0.4 mg Throat Lozenges (Cepastat Lozenges) 1 ann PO Q2H PRN PRN Reason: Sore Throat Zolpidem Tartrate (Ambien) 5 mg PO HSPRN PRN PRN Reason: Insomnia
--- NOTE | 2018-08-19 18:43 | PRG ---
DATE OF SERVICE: 08/19/2018 SUBJECTIVE: Patient was seen and examined at bedside and overnight events noted. Patient denies any shortness of breath or chest pain or palpitation. No history of nausea or vomiting or diarrhea or f ever or chills or cramps. OBJECTIVE: GENERAL: This is an elderly white male in no apparent distress. VITAL SIGNS: Temperature 97.7, pulse 92, respiratory rate 18, blood pressure 138/69. HEENT: Atraumatic, normocephalic. Oral mucosa is moist. NECK: Supple. CARDIOVASCULAR: S1, S2 heard. Rate and rhythm regular. RESPIRATORY: Clear to auscultation. GASTROINTESTINAL: Abdomen is soft. MUSCULOSKELETAL: No tenderness. No edema. DERMATOLOGIC: No skin rash. NEUROLOGIC: Alert and awake and oriented x3. No focal neurologic deficits. Moving all the extremiti es. PSYCHIATRIC: Mood and affect normal. LABORATORY DATA: Potassium is 4.8, sodium is 126, BUN is , creatinine is 6.1. ASSESSMENT AND PLAN: 1. Acute kidney injury. Renal function getting worse. No acute indication for dialysis. Agree wit h IV hydration. Chest x-ray with no fluid overload. 2. Hyponatremia, on IV fluids. 3. Metabolic acidosis. 4. Edema, controlled. 5. Hypertension stable. Plan is to continue on IV fluids, monitor, most likely NNEKA from [facility]. Avoid nephrotoxins. Renally do se the medications. We will follow.
[2018-08-19] MEDS: Rosuvastatin 10 MG TAB PO SCH (21:51)
[2018-08-19] MEDS: ALPRAZolam 0.25 MG TAB PO PRN (21:51)
[2018-08-20] MEDS: Calcium Carbonate 500 MG ChewTAB PO PRN ×3 (06:13→21:30)
[2018-08-20] MEDS: Sodium Chloride 0.9% 1,000 ML IV SCH ×2 (06:17→15:52)
[2018-08-20] MEDS: Mometasone/Formoterol 120 PUFF INHALER INH SCH ×2 (06:30→19:10)
[2018-08-20] MEDS: Tamsulosin HCl 0.4 MG CAP PO SCH ×2 (08:30→21:30)
[2018-08-20] MEDS: Amlodipine 10 MG TAB PO SCH (08:30)
[2018-08-20] MEDS: Cefdinir 300 MG CAP PO SCH (08:30)
[2018-08-20] MEDS: guaiFENesin ER 600 MG TAB PO SCH ×3 (08:30→21:30)
[2018-08-20] MEDS: Dutasteride 0.5 MG CAP PO SCH (08:31)
[2018-08-20] MEDS: predniSONE 20 MG TAB PO SCH (08:31)
[2018-08-20 10:29] LABS: Anion Gap 14 mmol/L (10-20); Calc. Creatinine Clearance 13 mL/min (70-130); Carbon Dioxide 20 mmol/L (23-31); Chloride 100 mmol/L (98-107); Estimated GFR-MDRD 8; Glucose 100 mg/dL (83-110); Potassium 5.2 mmol/L (3.5-5.1); Sodium 129 mmol/L (136-145)
[2018-08-20 10:41] LABS: BUN (Urea Nitrogen) 135 mg/dL (8.4-25.7)
--- NOTE | 2018-08-20 15:36 | PDOC.PN ---
- Subjective Encounter Start Date: 08/20/18 Encounter Start Time: 15:25 Subjective: f/u for NNEKA likely multifactorial including iatrogenic. Remains on IVF's -: ambulated in halls. Still SOB with activity. - Objective Resuscitation Status: Resuscitation Status FULL:Full Resuscitation MAR Reviewed: Yes Vital Signs & Weight: Vital Signs (12 hours) Temp Pulse Resp BP BP Pulse Ox Pulse Ox 08/20/18 13:54 89 L 08/20/18 13:50 89 16 90 L 08/20/18 13:05 149/68 H 08/20/18 11:00 97.8 F 99 24 H 182/64 H 90 L 08/20/18 10:22 85 16 08/20/18 08:30 97 165/62 H 08/20/18 08:00 91 L 08/20/18 06:50 97.8 F 97 20 165/62 H 91 L 08/20/18 06:28 89 16 92 L Pulse Ox Pulse Ox Pulse Ox 08/20/18 13:54 79 L 94 L 94 L 08/20/18 13:50 08/20/18 13:05 08/20/18 11:00 08/20/18 10:22 08/20/18 08:30 08/20/18 08:00 08/20/18 06:50 08/20/18 06:28 Weight Admit Weight 216 lb Weight 219 lb 9 oz I&O: 08/19/18 08/20/18 08/21/18 06:59 06:59 06:59 Intake Total 1760 2800 Output Total 900 2675 Balance 860 125 Result Diagrams: 08/19/18 03:37 08/20/18 09:59 Additional Labs: Laboratory Tests 08/15/18 08/17/18 08/17/18 03:36 04:07 04:07 WBC Hgb INR 3.4 3.0 Potassium Creatinine 4.15 H 08/17/18 08/18/18 08/18/18 04:07 04:19 04:19 WBC 18.3 H Hgb 10.8 L INR 2.4 Potassium Creatinine 5.32 H 08/18/18 08/19/18 08/19/18 04:19 03:37 03:37 WBC 18.9 H Hgb 10.9 L INR 1.7 Potassium 4.8 Creatinine 6.11 H Radiology Reviewed by me: Yes (PCXR - chronic interstitial changes) Phys Exam - Physical Examination alert, responsive, mild resp distress HEENT: PERRLA, sclera anicteric, oral pharynx no lesions Neck: no nodes, no JVD, supple, full ROM diminished bilat, occasional rhonchi S1, S2 Cardiovascular: RRR, no significant murmur, no rub, gallop Gastrointestinal: soft, non-tender, no distention, positive bowel sounds Musculoskeletal: pulses present, edema present Neurological: normal sensation, moves all 4 limbs Psychiatric: normal affect, A&O x 3 Skin: normal turgor, cap refill <2 seconds Deviation from normal: De with clear urine Dx/Plan (1) NNEKA (acute kidney injury) Code(s): N17.9 - ACUTE KIDNEY FAILURE, UNSPECIFIED Status: Acute Comment: Renal function continues to worsen, IVF's continuing, avoid nephrotoxic meds and limit contrast exposure, serial monitoring (2) Acute and chronic respiratory failure with hypoxia Code(s): J96.21 - ACUTE AND CHRONIC RESPIRATORY FAILURE WITH HYPOXIA Status: Acute Comment: O2, Duonebs, CPAP nocturnal (3) COPD (chronic obstructive pulmonary disease) Status: Chronic Comment: Continue Duonebs, Dulera, Prednisone (4) Pneumothorax Code(s): J93.9 - PNEUMOTHORAX, UNSPECIFIED Status: Acute Comment: S/p CT placement with removal (5) BRAD (obstructive sleep apnea) Code(s): G47.33 - OBSTRUCTIVE SLEEP APNEA (ADULT) (PEDIATRIC) Status: Chronic Comment: Nocturnal CPAP - Plan plan discussed w/ family, continue antibiotics, PT/OT, social insurance adviser, respiratory therapy, out of bed/ambulate, DVT proph w/SCDs Stable overall -: Continue IVF's -: Avoid nephrotoxic meds and contrast media -: Continue Omnicef 300mg daily -: AM lab: BMP * .
--- NOTE | 2018-08-20 16:15 | PRG ---
DATE OF SERVICE: 08/20/2018 SUBJECTIVE: Mr. Mart is afebrile. OBJECTIVE: VITAL SIGNS: His heart rates in the 90s, respiratory rates in the teens to low 20s, oximetry is 90 on 3 litershe was turned up to 4 liters, blood pressure 149/ 68. LUNGS: Clear. HEART: Regular rhythm. ABDOMEN: Soft. Intake and output is positive only at 125 mL. Surprisingly, he had significant urine output yesterday and continues to have significant urine output. IMPRESSION: 1. Acute renal failure most likely secondary to acute tubular necrosis associated with pneumonia. 2. Pneumonia. 3. Chronic obstructive pulmonary disease. PLAN: Hopefully, his renal function will plateau and improve within the next 24 -48 hours or he will possibly end up needing dialysis. [place]
--- NOTE | 2018-08-20 19:01 | PRG ---
DATE OF SERVICE: 08/20/2018 SUBJECTIVE: Patient was seen and examined at bedside and overnight events noted. Patient denies any shortness of breath or chest pain or palpitation. No history of nausea or vomiting or diarrhea or f ever or chills or cramps. OBJECTIVE: GENERAL: This is a well-built male in no apparent distress. VITAL SIGNS: Temperature 97.5, pulse 84, respiratory rate 18, blood pressure 153/69. HEENT: Atraumatic, normocephalic. Oral mucosa is moist. NECK: Supple CARDIOVASCULAR: S1, S2 heard. Rate and rhythm regular. RESPIRATORY: Clear to auscultation. GASTROINTESTINAL: Abdomen is soft. MUSCULOSKELETAL: No tenderness, no edema. DERMATOLOGIC: No skin rash. NEUROLOGIC: Alert, awake, and oriented x3. No focal neurologic deficits. Moving all the extremitie s. PSYCHIATRIC: Mood and affect normal. LABORATORY DATA: Potassium is 5.2, BUN is 135, creatinine is 6.5, sodium is 129. ASSESSMENT AND PLAN: 1. Acute kidney injury on chronic kidney disease stage 3. Renal function seems like plateauing. Co ntinue on intravenous fluids if tolerated. 2. Hyponatremia, better with IV fluids. 3. Metabolic acidosis, better. 4. Edema, controlled. 5. Hypertension, stable. His overall renal function seems to be plateauing out. Still making good amount of urine to almost 2 .6 liters of urine. We will continue to monitor. Avoid nephrotoxins at this point.
[2018-08-20] MEDS: ALPRAZolam 0.25 MG TAB PO PRN (21:30)
[2018-08-20] MEDS: Rosuvastatin 10 MG TAB PO SCH (21:30)
[2018-08-21] MEDS: Sodium Chloride 0.9% 1,000 ML IV SCH ×2 (02:42→19:54)
[2018-08-21] MEDS: Calcium Carbonate 500 MG ChewTAB PO PRN ×3 (03:07→18:27)
[2018-08-21 05:06] LABS: Anion Gap 19 mmol/L (10-20); Calc. Creatinine Clearance 13 mL/min (70-130); Carbon Dioxide 13 mmol/L (23-31); Chloride 101 mmol/L (98-107); Estimated GFR-MDRD 8; Glucose 96 mg/dL (83-110); Potassium 5.4 mmol/L (3.5-5.1); Sodium 128 mmol/L (136-145)
[2018-08-21 05:22] LABS: BUN (Urea Nitrogen) 138 mg/dL (8.4-25.7)
[2018-08-21] MEDS: Mometasone/Formoterol 120 PUFF INHALER INH SCH ×2 (06:31→19:19)
[2018-08-21] MEDS: Tamsulosin HCl 0.4 MG CAP PO SCH ×2 (08:36→21:11)
[2018-08-21] MEDS: predniSONE 20 MG TAB PO SCH (08:36)
[2018-08-21] MEDS: Amlodipine 10 MG TAB PO SCH (08:36)
[2018-08-21] MEDS: Cefdinir 300 MG CAP PO SCH (08:36)
[2018-08-21] MEDS: Dutasteride 0.5 MG CAP PO SCH (08:36)
[2018-08-21] MEDS: guaiFENesin ER 600 MG TAB PO SCH ×3 (08:37→21:11)
--- NOTE | 2018-08-21 09:13 | PRG ---
DATE OF SERVICE: 08/21/2018 Mr. Mart says he feels well. PHYSICAL EXAMINATION: VITAL SIGNS: He is afebrile, heart rate 75, blood pressure 155/69. Intake and output is positive 19 70. LUNGS: His lungs are clear. HEART: Regular rhythm. ABDOMEN: Abdomen is soft. LABS: Sodium 128, potassium 5.4, chloride 101, bicarbonate 13, BUN 38, creatinine is 6.8. IMPRESSION: Progressive renal failure. I was hoping that his renal function decline was plateauing, but it is not obvious yet. Hopefully, l ab will be better tomorrow. I would anticipate he will be hyperkalemic by tomorrow. We will continu e with volume infusion. I will check a chest radiograph in the morning to see if he is developing pu lmonary edema. With his COPD I may not hear on exam early pulmonary edema. His asthmatic bronchitis is stable. His pneumonia is stable.
[2018-08-21] MEDS: Milk Of Magnesia 30 ML UDCUP PO PRN (11:27)
[2018-08-21 15:40] LABS: HBSAB Concentration 0.42 mIU/mL; Hep B Core Total Ab Non-Reactive (NonReactive); Hep B Core Total Index 0.06 S/CO (0-0.79); Hep B Surf AB Non-Reactive (NonReactive); Hep B Surf Ag Non-Reactive S/CO (NonReactive); Hep C IgG Ab Non-Reactive (NonReactive); Hep C Index 0.07 S/CO (0-0.79)
--- NOTE | 2018-08-21 16:22 | PDOC.PN ---
- Subjective Encounter Start Date: 08/21/18 Encounter Start Time: 16:20 Subjective: f/u for NNEKA/CKD with worsening renal function despite volume replacement. -: HD initiated today. States feeling ok and less SOB. - Objective Resuscitation Status: Resuscitation Status FULL:Full Resuscitation MAR Reviewed: Yes Vital Signs & Weight: Vital Signs (12 hours) Temp Pulse Resp BP BP Pulse Ox 08/21/18 10:53 80 14 08/21/18 08:36 95 155/69 H 08/21/18 08:00 97.7 F 95 20 155/69 H 94 L 08/21/18 06:31 90 16 Weight Admit Weight 216 lb Weight 222 lb 12.8 oz I&O: 08/20/18 08/21/18 08/22/18 06:59 06:59 06:59 Intake Total 2800 3220 Output Total 2675 1250 Balance 125 1970 Result Diagrams: 08/19/18 03:37 08/22/18 03:56 Additional Labs: Laboratory Tests 08/15/18 08/17/18 08/17/18 03:36 04:07 04:07 WBC Hgb INR 3.4 3.0 Potassium Creatinine 4.15 H Hep Bs Antigen Hep Bs Antibody Hep Bs Antibody Index Hep B Core Total Ab Hepatitis C Antibody 08/17/18 08/18/18 08/18/18 04:07 04:19 04:19 WBC 18.3 H Hgb 10.8 L INR 2.4 Potassium Creatinine 5.32 H Hep Bs Antigen Hep Bs Antibody Hep Bs Antibody Index Hep B Core Total Ab Hepatitis C Antibody 08/18/18 08/19/18 08/19/18 04:19 03:37 03:37 WBC 18.9 H Hgb 10.9 L INR 1.7 Potassium 4.8 Creatinine 6.11 H Hep Bs Antigen Hep Bs Antibody Hep Bs Antibody Index Hep B Core Total Ab Hepatitis C Antibody 08/21/18 14:49 WBC Hgb INR Potassium Creatinine Hep Bs Antigen Non-Reactive Hep Bs Antibody Non-Reactive Hep Bs Antibody Index 0.42 Hep B Core Total Ab Non-Reactive Hepatitis C Antibody Non-Reactive Laboratory Tests 08/15/18 08/17/18 08/17/18 03:36 04:07 04:07 WBC Hgb INR 3.4 3.0 Potassium Creatinine 4.15 H Hep Bs Antigen Hep Bs Antibody Hep Bs Antibody Index Hep B Core Total Ab Hepatitis C Antibody 08/17/18 08/18/18 08/18/18 04:07 04:19 04:19 WBC 18.3 H Hgb 10.8 L INR 2.4 Potassium Creatinine 5.32 H Hep Bs Antigen Hep Bs Antibody Hep Bs Antibody Index Hep B Core Total Ab Hepatitis C Antibody 08/18/18 08/19/18 08/19/18 04:19 03:37 03:37 WBC 18.9 H Hgb 10.9 L INR 1.7 Potassium 4.8 Creatinine 6.11 H Hep Bs Antigen Hep Bs Antibody Hep Bs Antibody Index Hep B Core Total Ab Hepatitis C Antibody 08/21/18 14:49 WBC Hgb INR Potassium Creatinine Hep Bs Antigen Non-Reactive Hep Bs Antibody Non-Reactive Hep Bs Antibody Index 0.42 Hep B Core Total Ab Non-Reactive Hepatitis C Antibody Non-Reactive Radiology Reviewed by me: Yes (PCXR - left perihilar edema) Phys Exam - Physical Examination Constitutional: NAD smiling, alert HEENT: PERRLA, sclera anicteric, oral pharynx no lesions Neck: no nodes, no JVD, supple, full ROM diminished bilat S1, S2 Cardiovascular: RRR, no significant murmur, no rub, gallop Gastrointestinal: soft, non-tender, no distention, positive bowel sounds Musculoskeletal: pulses present, edema present Neurological: normal sensation, moves all 4 limbs Psychiatric: A&O x 3 Skin: normal turgor, cap refill <2 seconds Dx/Plan (1) NNEKA (acute kidney injury) Code(s): N17.9 - ACUTE KIDNEY FAILURE, UNSPECIFIED Status: Acute Comment: Renal function continues to worsen, avoid nephrotoxic meds and limit contrast exposure, HD started today (2) Acute and chronic respiratory failure with hypoxia Code(s): J96.21 - ACUTE AND CHRONIC RESPIRATORY FAILURE WITH HYPOXIA Status: Acute Comment: O2, Duonebs, CPAP nocturnal (3) COPD (chronic obstructive pulmonary disease) Status: Chronic Comment: Continue Duonebs, Dulera, Prednisone (4) Pneumothorax Code(s): J93.9 - PNEUMOTHORAX, UNSPECIFIED Status: Acute Comment: S/p CT placement with removal (5) BRAD (obstructive sleep apnea) Code(s): G47.33 - OBSTRUCTIVE SLEEP APNEA (ADULT) (PEDIATRIC) Status: Chronic Comment: Nocturnal CPAP - Plan PT/OT, clinical social work therapist, respiratory therapy, out of bed/ambulate HD initiated today -: Continue Omnicef 300mg daily -: Continue Prednisone 20mg daily -: PT/OT for ambulation -: AM lab: BMP * .
--- NOTE | 2018-08-21 18:08 | PRG ---
DATE OF SERVICE: 08/21/2018 SUBJECTIVE: Patient was seen and examined at bedside and overnight events noted. Patient denies any shortness of breath or chest pain or palpitation. No history of nausea or vomitin g or diarrhea or fever or chills or cramps. OBJECTIVE: GENERAL: This is a well-built male, in no apparent distress. VITAL SIGNS: Temperature 97.7, pulse 95, respiratory rate , blood pressure 153/69. HEENT: Atraumatic, normocephalic. Oral mucosa is moist. NECK: Supple. CARDIOVASCULAR: S1 and S2 heard. Rate and rhythm regular. RESPIRATORY: Clear to auscultation. GASTROINTESTINAL: Abdomen is soft. MUSCULOSKELETAL: 1+ edema. DERMATOLOGIC: No skin rash. NEUROLOGIC: Alert and awake and oriented x3. No focal neurologic deficits. Moving all the extremit ies. PSYCHIATRIC: Mood and affect normal. LABORATORY DATA: Potassium 5.4, sodium is 128, BUN 138, creatinine 6.8. ASSESSMENT AND PLAN: 1. Acute kidney injury on chronic kidney disease stage 3. Renal function continues to get worse wit h hyperkalemia. The patient and family are agreeable for dialysis. We will start on dialysis. He h as high chance of renal recovery and we will continue close monitoring. We will stop intravenous flu ids for now. 2. Hyperkalemia. Limit potassium in the diet. We will monitor. We will have dialysis today. 3. Hyponatremia. Remove fluid. 4. Edema with fluid overload, getting worse. 5. Metabolic acidosis, stable. Plan is to start on dialysis as tolerated with close monitoring of renal function and he does have a higher chance of renal recovery. We will continue close monitoring. Avoid nephrotoxins at this time . We will stop IV fluids.
[2018-08-21] MEDS: Acetaminophen 325 MG TAB PO PRN (21:11)
[2018-08-21] MEDS: Rosuvastatin 10 MG TAB PO SCH (21:11)
[2018-08-21] MEDS: ALPRAZolam 0.25 MG TAB PO PRN (21:12)
[2018-08-21] MEDS: Simethicone Chewable 80 MG TAB PO PRN (21:14)
[2018-08-22 04:40] LABS: Anion Gap 13 mmol/L (10-20); BUN (Urea Nitrogen) 119 mg/dL (8.4-25.7); Calc. Creatinine Clearance 15 mL/min (70-130); Calcium 8.6 mg/dL (7.8-10.44); Carbon Dioxide 18 mmol/L (23-31); Chloride 103 mmol/L (98-107); Estimated GFR-MDRD 9; Glucose 95 mg/dL (83-110); Potassium 5.1 mmol/L (3.5-5.1); Sodium 129 mmol/L (136-145)
[2018-08-22] MEDS: Mometasone/Formoterol 120 PUFF INHALER INH SCH ×2 (07:10→19:33)
--- NOTE | 2018-08-22 07:40 | OP ---
PREOPERATIVE DIAGNOSES: Acute renal failure, in need of acute dialysis; obesity; sleep apnea; gastro esophageal reflux disease; metabolic syndrome. POSTOPERATIVE DIAGNOSES: Acute renal failure, in need of acute dialysis; obesity; sleep apnea; gastr oesophageal reflux disease; metabolic syndrome. PROCEDURE PERFORMED: Right femoral vein Trialysis catheter. SURGEON: Dr. Aman Valdes. ANESTHESIA: A 1% Xylocaine. DESCRIPTION OF PROCEDURE: At the patient's bedside, his right groin was clipped of hair, prepared wi th ChloraPrep, draped in routine fashion. Local anesthetic, 1% Xylocaine was infiltrated into the sk in and subcutaneous tissue about the operative site. Seldinger technique used to place a Trialysis c atheter. When I placed a Trialysis catheter, the De met resistance, thus I had to leave ___ __ secured with 3-0 nylon sutures. Sterile dressing applied. Patient tolerated the procedure well.
--- NOTE | 2018-08-22 07:40 | HP ---
HISTORY OF PRESENT ILLNESS: Bin Mart is a 77-year-old male patient who needs dialysis access fo r acute renal failure. He is admitted on 08/11/2018 by Hospitalist Service for pneumonia, hypoxia, C [employer] exacerbation. 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 He had normal renal function prior to this illness. PAST MEDICAL HISTORY: Sleep apnea, obesity, metabolic syndrome, hypertension, GERD, osteoarthritis, COPD on home oxygen. PAST SURGICAL HISTORY: Left knee surgery, upper and lower endoscopy in 2018, polypectomy. SOCIAL HISTORY: Patient is . He occasionally drinks beer. He does not smoke anymore. There is no drug use. 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 MEDICATIONS: Losartan, Toprol-XL, amlodipine, Crestor, Nexium, potassium chloride, nebulizers. PHYSICAL EXAMINATION: VITAL SIGNS: 5 feet 9, 222 pounds, 32 BMI, 97.7, 85, 140/62. LUNGS: Clear to auscultation, no wheezing. CARDIAC: Regular rate and rhythm without murmur or gallop. ABDOMEN: Obese, soft, nontender. EXTREMITIES: Unremarkable. Palpable pulses. LABORATORY DATA: White count 18, hemoglobin 10. Sodium 128, potassium 5.4, BUN 138, creatinine 6.8, GFR 8. ASSESSMENT AND PLAN: Acute renal failure. We will plan placement of a temporary dialysis catheter. Nephrology believes that he will recover and he will not need a cuffed tunnel catheter. I will see him as needed. Please call if necessary in the future.
--- NOTE | 2018-08-22 07:56 | RAD ---
FRONTAL RADIOGRAPH CHEST: DATE: 08/22/2018. COMPARISON: 08/19/2018. HISTORY: COPD, renal failure. FINDINGS: There is a developing area of right perihilar airspace disease noted. Heart and mediastinal contours are stable. Underlying interstitial prominence and pulmonary hyperinflation suggest emphysematous c hange. No alveolar edema or lobar consolidation. IMPRESSION: Subtle new hazy airspace disease in the left perihilar region. This may signify infectious pneumonit is or aspiration. POS: [facility]
[2018-08-22] MEDS: predniSONE 20 MG TAB PO SCH (08:24)
[2018-08-22] MEDS: Dutasteride 0.5 MG CAP PO SCH (08:24)
[2018-08-22] MEDS: Tamsulosin HCl 0.4 MG CAP PO SCH ×2 (08:24→19:48)
[2018-08-22] MEDS: Cefdinir 300 MG CAP PO SCH (08:24)
[2018-08-22] MEDS: Amlodipine 10 MG TAB PO SCH (08:25)
[2018-08-22] MEDS: guaiFENesin ER 600 MG TAB PO SCH ×3 (08:25→19:48)
--- NOTE | 2018-08-22 08:30 | PRG ---
DATE OF SERVICE: 08/22/2018 SUBJECTIVE: The patient is feeling somewhat fatigued. Frustrated, as he has been in the hospital for a protracted period of time. No significant complaints. PHYSICAL EXAMINATION: VITAL SIGNS: Stable. He is afebrile, 94% on 3 liters. I's and O's 1250 of urine output, patient did receive dialysis yesterday. ABDOMEN: Soft, morbidly obese. No rigidity, no rebound. GENITOURINARY: De catheter demonstrating estephania pink-tinged urine. PERTINENT LABORATORY DATA: Sodium 129; BUN 119; creatinine 5.8, yesterday creatinine 6.8. Urine culture negative. IMPRESSION AND PLAN: Mr. Mart is a pleasant 77-year-old male, who has a history of atrial fibrillation, on Coumadin. 1. Current admission secondary to pneumonia, pneumothorax. 2. Renal insufficiency/failure etiology, etiology prerenal/renal. 3. History of benign prostatic hypertrophy, urologic consultation initially obtained due to hesitancy, found to have a PVR of 600-700 mL. Urinary retention is not the source of his renal failure. He is to continue his Flomax b.i.d., Avodart adjunct which I started on this admission. will likely stay in the hospital for the next few days, as he is receiving dialysis and being monitored for renal recovery. No further recommendations at this time, continue present management with indwelling De catheter for strict I's and O' s to be monitored. He has a follow up with me in chart. Dr. Durant covering me this weekend for p.r.n. issues. will continue to follow peripherally. [place]
[2018-08-22] MEDS ORDERED: Heparin 10,000 UNITS/ 10 ML VIAL ONE (10:03)
[2018-08-22] MEDS ORDERED: Heparin 1,000 UNITS/ML VIAL ONE (11:11)
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
[2018-08-22 15:06] LABS: ANA Symphony (Qualitative) Negative (Negative); EliA Vaculitis New Method **** NEW METHOD ****; dsDNA IgG Antibody Less than 0.5 IU/mL (<10 Negative)
[2018-08-22] MEDS: Calcium Carbonate 500 MG ChewTAB PO PRN ×2 (16:44→19:48)
--- NOTE | 2018-08-22 16:50 | PRG ---
DATE OF SERVICE: 08/22/2018 SUBJECTIVE: Bin Mart is being dialyzed today. PHYSICAL EXAMINATION: VITAL SIGNS: Have been stable. He is afebrile, heart rate is in the 90s, oximetry is 93% on 2 liter s, blood pressure 144/67. IMAGING DATA: Chest radiograph was done this morning showing haziness more on the left than the righ t. We will repeat a chest radiograph in the morning. Dialysis should lead to an improvement of ches t x-ray if this is an atypical presentation for pulmonary edema. I met with the and answered all of her questions.
--- NOTE | 2018-08-22 17:16 | PRG ---
DATE OF SERVICE: 08/22/2018 SUBJECTIVE: Patient was seen and examined at bedside and overnight events noted. Patient denies any shortness of breath or chest pain or palpitation. No history of nausea or vomiting or diarrhea or f ever or chills or cramps. OBJECTIVE: GENERAL: This is a well-built male in no apparent distress. VITAL SIGNS: Temperature 97.7, pulse 90, respiratory rate 18, blood pressure 144/67. HEENT: Atraumatic, normocephalic. Oral mucosa is moist. NECK: Supple. CARDIOVASCULAR: S1, S2 heard. Rate and rhythm regular. RESPIRATORY: Clear to auscultation. GASTROINTESTINAL: Abdomen is soft. MUSCULOSKELETAL: No tenderness. No edema. DERMATOLOGIC: No skin rash. NEUROLOGIC: Alert and awake and oriented x3. No focal neurologic deficits. Moving all the extremiti es. PSYCHIATRIC: Mood and affect normal. LABORATORY DATA: Potassium is 5.1, BUN 19, creatinine is 5.8. ASSESSMENT: 1. Acute kidney injury, chronic kidney stage 3, dialysis dependent. Patient is still making urine. We will continue close monitoring on renal function. 2. Hyperkalemia, mild. 3. Hyponatremia. 4. Edema with fluid overload. 5. Metabolic acidosis. PLAN: We will have dialysis today and then hold the dialysis over the weekend and we will monitor.
[2018-08-22] MEDS: Rosuvastatin 10 MG TAB PO SCH (19:48)
[2018-08-22] MEDS: Mag-Al 1200 mg/1200 mg/30 ML UDCUP PO PRN (21:45)
[2018-08-22] MEDS: ALPRAZolam 0.25 MG TAB PO PRN (21:49)
[2018-08-23] MEDS: Calcium Carbonate 500 MG ChewTAB PO PRN (06:26)
[2018-08-23] MEDS: Dutasteride 0.5 MG CAP PO SCH (07:54)
[2018-08-23] MEDS: guaiFENesin ER 600 MG TAB PO SCH ×3 (07:54→20:49)
[2018-08-23] MEDS: Amlodipine 10 MG TAB PO SCH (07:55)
[2018-08-23] MEDS: Tamsulosin HCl 0.4 MG CAP PO SCH ×2 (07:55→20:49)
[2018-08-23] MEDS: predniSONE 20 MG TAB PO SCH ×2 (07:55→14:47)
[2018-08-23] MEDS: Cefdinir 300 MG CAP PO SCH (07:55)
[2018-08-23 09:39] LABS: Anion Gap 13 mmol/L (10-20); BUN (Urea Nitrogen) 91 mg/dL (8.4-25.7); Calc. Creatinine Clearance 18 mL/min (70-130); Carbon Dioxide 24 mmol/L (23-31); Chloride 102 mmol/L (98-107); Estimated GFR-MDRD 10; Glucose 104 mg/dL (83-110); Potassium 4.8 mmol/L (3.5-5.1); Sodium 134 mmol/L (136-145)
--- NOTE | 2018-08-23 11:29 | RAD ---
PORTABLE CHEST: HISTORY: End state renal disease. Followup of infiltrate. COMPARISON: Prior day's exam. Heart size is borderline. There are chronic-appearing lung changes seen. Some of the parenchymal de nsity in the right parahilar region appears slightly improved as compared to the prior exam. IMPRESSION: Slight improvement to the right perihilar lung change. POS: [facility]
[2018-08-23] MEDS ORDERED: Lidocaine 2% Viscous Solution 10 ML, Aluminum & Magnesium Hydroxide 30 ML SSW SCH (11:30)
[2018-08-23] MEDS ORDERED: Famotidine/PF 20 mg/2ml Vial SLOW IVP SCH (11:45)
[2018-08-23] MEDS: Mometasone/Formoterol 120 PUFF INHALER INH SCH ×2 (12:20→19:35)
--- NOTE | 2018-08-23 12:41 | PDOC.PN ---
- Subjective Encounter Start Date: 08/23/18 Encounter Start Time: 08:20 Pt seen for followup re: acute renal failure. Denies chest pain. Reports esophageal reflux and nausea. - Objective Resuscitation Status: Resuscitation Status FULL:Full Resuscitation MAR Reviewed: Yes Vital Signs & Weight: Vital Signs (12 hours) Temp Pulse Resp BP BP Pulse Ox Pulse Ox 08/23/18 12:22 92 18 94 L 08/23/18 11:02 90 L 08/23/18 08:00 95 08/23/18 07:55 87 164/72 H 08/23/18 07:04 97.6 F 87 18 164/72 H 95 08/23/18 07:00 93 L 08/23/18 06:59 91 18 91 L 08/23/18 02:37 90 16 Pulse Ox Pulse Ox 08/23/18 12:22 08/23/18 11:02 75 L 92 L 08/23/18 08:00 08/23/18 07:55 08/23/18 07:04 08/23/18 07:00 08/23/18 06:59 08/23/18 02:37 Weight Admit Weight 216 lb Weight 247 lb 12.8 oz I&O: 08/22/18 08/23/18 08/24/18 06:59 06:59 05:59 Intake Total 1170 1300 Output Total 900 700 Balance 270 600 Result Diagrams: 08/19/18 03:37 08/23/18 08:57 Additional Labs: Labs reviewed by me Phys Exam - Physical Examination Constitutional: NAD HEENT: moist MMs Neck: supple Respiratory: clear to auscultation bilateral Cardiovascular: RRR Gastrointestinal: soft Neurological: moves all 4 limbs Psychiatric: normal affect Dx/Plan (1) NNEKA (acute kidney injury) Code(s): N17.9 - ACUTE KIDNEY FAILURE, UNSPECIFIED Status: Acute Comment: Pt dialyzed last two days, likely next dialysis on Saturday (2) Acute and chronic respiratory failure with hypoxia Code(s): J96.21 - ACUTE AND CHRONIC RESPIRATORY FAILURE WITH HYPOXIA Status: Acute Comment: Improving, continue PRN O2, cefdinir, Duonebs, CPAP nocturnal (3) Pneumothorax Code(s): J93.9 - PNEUMOTHORAX, UNSPECIFIED Status: Acute Comment: S/p CT placement and removal (4) HTN (hypertension) Code(s): I10 - ESSENTIAL (PRIMARY) HYPERTENSION Status: Chronic Comment: controlled (5) BRAD (obstructive sleep apnea) Code(s): G47.33 - OBSTRUCTIVE SLEEP APNEA (ADULT) (PEDIATRIC) Status: Chronic Comment: using nocturnal CPAP - Plan * . Review of Systems - Review of Systems Cardiovascular: negative: chest pain, palpitations, orthopnea, paroxysmal nocturnal dyspnea, edema, light headedness Gastrointestinal: Nausea, Vomiting. negative: Abdominal Pain, Diarrhea, Constipation, Melena, Hematochezia - Medications/Allergies Allergies/Adverse Reactions: Allergies Allergy/AdvReac Type Severity Reaction Status Date / Time No Known Allergies Allergy Unverified 05/09/18 09:02 Medications: Current Medications Acetaminophen (Tylenol) 650 mg PO Q4H PRN PRN Reason: Headache/Fever/Mild Pain (1-3) Last Admin: 08/21/18 21:11 Dose: 650 mg Al Hydroxide/Mg Hydroxide (Maalox) 30 ml PO Q4H PRN PRN Reason: Indigestion Last Admin: 08/22/18 21:45 Dose: 30 ml Albuterol/Ipratropium (Duoneb) 3 ml NEB [id number] [facility] Last Admin: 08/23/18 12:22 Dose: 3 ml Alprazolam (Xanax) 0.25 mg PO QIDPRN PRN PRN Reason: Anxiety/Agitation Last Admin: 08/22/18 21:49 Dose: 0.25 mg Amlodipine Besylate (Norvasc) 10 mg PO DAILY [facility] Last Admin: 08/23/18 07:55 Dose: 10 mg Artificial Tears (Tears Naturale) 2 drop EA EYE PRN PRN PRN Reason: Dry Eyes Bisacodyl (Dulcolax) 10 mg PO DAILYPRN PRN PRN Reason: Constipation Last Admin: 08/12/18 12:52 Dose: 10 mg Bisacodyl (Dulcolax) 10 mg [place] DAILYPRN PRN PRN Reason: Constipation Calcium Carbonate (Tums) 1,000 mg PO Q4H PRN PRN Reason: Heartburn or Indigestion Last Admin: 08/23/18 06:26 Dose: 1,000 mg Cefdinir (Omnicef) 300 mg PO DAILY [facility] Last Admin: 08/23/18 07:55 Dose: 300 mg Clonidine (Catapres) 0.1 mg PO Q4H PRN PRN Reason: SBP > 180 Lidocaine HCl 10 ml/ Al (Hydroxide/Mg Hydroxide 30 ml) 0 ml SSW ONE [facility] Stop: 08/23/18 14:00 Dutasteride (Avodart) 0.5 mg PO DAILY [facility] Last Admin: 08/23/18 07:54 Dose: 0.5 mg Famotidine (Pepcid) 20 mg PO BID SHORTY Famotidine (Pepcid) 20 mg SLOW IVP NOW [facility] Stop: 08/23/18 13:00 Last Admin: 08/23/18 11:42 Dose: 20 mg Guaifenesin (Mucinex) 600 mg PO TID [facility] Last Admin: 08/23/18 07:54 Dose: 600 mg Guaifenesin (Robitussin Sf) 200 mg PO Q4H PRN PRN Reason: Cough Last Admin: 08/13/18 20:34 Dose: 200 mg Hydralazine HCl (Apresoline) 10 mg SLOW IVP Q4H PRN PRN Reason: SBP > 180 and HR < 70 Loperamide HCl (Imodium) 2 mg PO PRN PRN PRN Reason: Diarrhea/Loose Stools Loratadine (Claritin) 10 mg PO DAILYPRN PRN PRN Reason: Sinus Symptoms Magnesium Hydroxide (Milk Of Magnesium) 30 ml PO DAILYPRN PRN PRN Reason: Constipation Last Admin: 08/21/18 11:27 Dose: 30 ml Mineral Oil/White Petrolatum (Eucerin Cream) 0 gm TOP BIDPRN PRN PRN Reason: Dry Skin Mometasone Furoate/Formoterol Fumar (Dulera 200 Mcg/5 Mcg Inhaler) 2 puff INH BID-RT [facility] Last Admin: 08/23/18 12:20 Dose: 2 puff Ondansetron HCl (Zofran Odt) 4 mg PO Q6H PRN PRN Reason: Nausea/Vomiting Ondansetron HCl (Zofran) 4 mg IVP Q6H PRN PRN Reason: Nausea/Vomiting Last Admin: 08/22/18 20:40 Dose: 4 mg Pantoprazole Sodium (Protonix) 40 mg PO DAILY [facility] Last Admin: 08/23/18 09:52 Dose: Not Given Polyethylene Glycol (Miralax) 17 gm PO DAILYPRN PRN PRN Reason: Constipation Prednisone (Prednisone) 20 mg PO QAM-WM [facility] Last Admin: 08/23/18 07:55 Dose: 20 mg Rosuvastatin Calcium (Crestor) 10 mg PO HS [facility] Last Admin: 08/22/18 19:48 Dose: 10 mg Senna/Docusate Sodium (Senokot S) 2 tab PO BID PRN PRN Reason: Constipation Last Admin: 08/12/18 17:13 Dose: 2 tab Simethicone (Mylicon Chewable) 80 mg PO TIDPRN PRN PRN Reason: . Last Admin: 08/21/18 21:14 Dose: 80 mg Sodium Chloride ([place] Nasal [place] 0.65%) 0 ml EA NARE QIDPRN PRN PRN Reason: Nasal Congestion Last Admin: 08/19/18 17:26 Dose: 1 spr Sodium Chloride (Flush - Normal Saline) 10 ml IVF Q12HR [facility] Last Admin: 08/23/18 07:56 Dose: 10 ml Sodium Chloride (Flush - Normal Saline) 10 ml IVF PRN PRN PRN Reason: Saline Flush Last Admin: 08/14/18 05:19 Dose: 10 ml Tamsulosin HCl (Flomax) 0.4 mg PO BID [facility] Last Admin: 08/23/18 07:55 Dose: 0.4 mg Throat Lozenges (Cepastat Lozenges) 1 ann PO Q2H PRN PRN Reason: Sore Throat Zolpidem Tartrate (Ambien) 5 mg PO HSPRN PRN PRN Reason: Insomnia
[2018-08-23] MEDS ORDERED: Sucralfate 1 GM/10 ML UDCUP PO SCH (12:54)
[2018-08-23] MEDS ORDERED: predniSONE 20 MG TAB PO SCH (13:30)
[2018-08-23] MEDS: Fluconazole 100 MG TAB PO SCH (14:47)
--- NOTE | 2018-08-23 15:02 | PRG ---
DATE OF SERVICE: 08/23/2018 Subjective: Patient was seen and examined at bedside and overnight events noted. Patient denies any shortness of breath or chest pain or palpitation. No history of nausea or vomiting or diarrhea or fever or chills or cramps. Objective: General: This is a well-built male, in no acute distress Vital signs: Temperature . Pulse 89. Respiratory rate 18. Blood pressure . HEENT: Atraumatic, normocephalic, Oral mucosa is moist Neck: Supple Cardiovascular: S1S2 heard, Rate and rhythm regular Respiratory: Clear to auscultation Gastrointestinal: Abdomen is soft Musculoskeletal : No tenderness, No edema Dermatologic : No skin rash Neurologic: Alert and awake and oriented X3, No focal neurologic deficits. Moving all the extremities . Psychiatric: Mood and affect normal Laboratory data: Potassium is 4.8, BUN is 91, creatinine is 5.4. Assessment and Plan: 1. Acute kidney injury, dialysis dependent currently. Plan is to hold dialysis over the weekend and monitor his renal function. No acute indication for dialysis. Continue on renal diet and monitor. Limit fluid intake. 2. Hyperkalemia, better. 3. Hyponatremia. 4. Edema. 5. Metabolic acidosis. Plan is to monitor renal function. The patient is still making good amount of urine. We will monito r his [place] renal function over the weekend.
[2018-08-23] MEDS: Sucralfate 1 GM/10 ML UDCUP PO SCH ×2 (17:20→20:49)
--- NOTE | 2018-08-23 19:14 | PRG ---
DATE OF SERVICE: 08/23/2018 SUBJECTIVE: Mr. Mart is only complaining of his bad reflux symptoms. He says that he has been on Nexium for 15 years, which usually controls his reflux. OBJECTIVE: VITAL SIGNS: His heart rate is 72, respiratory rate is 18, oximetry 94, blood pressure 164/72. Intake and output is positive 600. GENITOURINARY: At 700 mL recorded out through his De. LUNGS: Clear. HEART: Regular rhythm. ABDOMEN: Soft. LABORATORY DATA: There is no CBC since the . Sodium 134, potassium is 4.8 , chloride 102, bicarbonate 24, BUN 91, creatinine 5.4. IMPRESSION: 1. Acute renal failure. 2. Reflux. Does have a mild coated tongue and some of this may be thrush with esophagitis. I have written an order for Diflucan for a few days. I placed him on Carafate slurry before meals. He has p.r.n. Mylanta. I have switched him to IV Pepcid. Hopefully, this will lead to control his reflux symptoms. 3. Pneumonia/COPD are stable. MTDD
[2018-08-23] MEDS: Famotidine/PF 20 mg/2ml Vial SLOW IVP SCH (20:49)
[2018-08-23] MEDS: Rosuvastatin 10 MG TAB PO SCH (20:49)
[2018-08-23] MEDS ORDERED: Famotidine 20 MG TAB PO SCH (21:00)
[2018-08-23] MEDS: ALPRAZolam 0.25 MG TAB PO PRN (23:23)
[2018-08-24 04:59] LABS: Anion Gap 14 mmol/L (10-20); BUN (Urea Nitrogen) 98 mg/dL (8.4-25.7); Calc. Creatinine Clearance 16 mL/min (70-130); Calcium 8.3 mg/dL (7.8-10.44); Carbon Dioxide 21 mmol/L (23-31); Chloride 104 mmol/L (98-107); Estimated GFR-MDRD 9; Glucose 130 mg/dL (83-110); Sodium 134 mmol/L (136-145)
[2018-08-24] MEDS: Sucralfate 1 GM/10 ML UDCUP PO SCH ×4 (06:09→22:02)
[2018-08-24] MEDS: Diabetic Tussin 200 MG/10 ML UDCUP PO PRN (06:22)
[2018-08-24] MEDS: Mometasone/Formoterol 120 PUFF INHALER INH SCH ×2 (08:27→19:25)
[2018-08-24] MEDS: guaiFENesin ER 600 MG TAB PO SCH ×3 (09:04→22:02)
[2018-08-24] MEDS: Cefdinir 300 MG CAP PO SCH (09:04)
[2018-08-24] MEDS: Famotidine/PF 20 mg/2ml Vial SLOW IVP SCH ×2 (09:04→22:01)
[2018-08-24] MEDS: predniSONE 20 MG TAB PO SCH (09:05)
[2018-08-24] MEDS: Amlodipine 10 MG TAB PO SCH (09:05)
[2018-08-24] MEDS: Tamsulosin HCl 0.4 MG CAP PO SCH ×2 (09:05→22:02)
[2018-08-24] MEDS: Dutasteride 0.5 MG CAP PO SCH (09:07)
--- NOTE | 2018-08-24 11:27 | PDOC.PN ---
- Subjective Encounter Start Date: 08/24/18 Encounter Start Time: 08:40 Pt seen for followup re: acute renal failure. Denies chest pain, shortness of breath, fevers or chills. 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 92 L Weight Admit Weight 216 lb Weight 247 lb 12.8 oz I&O: 08/23/18 08/24/18 08/25/18 07:59 06:59 06:59 Intake Total Output Total Balance Result Diagrams: 08/19/18 03:37 08/24/18 03:59 Additional Labs: labs reviewed by me Phys Exam - Physical Examination Constitutional: NAD HEENT: moist MMs Neck: supple Respiratory: clear to auscultation bilateral Cardiovascular: RRR Gastrointestinal: soft Neurological: moves all 4 limbs Psychiatric: normal affect Dx/Plan (1) NNEKA (acute kidney injury) Code(s): N17.9 - ACUTE KIDNEY FAILURE, UNSPECIFIED Status: Acute Comment: Creatinine worse at 6.09, likely dialysis tomorrow. Discontinue cefdinir in case it is contributing to NNEKA, discussed with nephrology service. (2) Acute and chronic respiratory failure with hypoxia Code(s): J96.21 - ACUTE AND CHRONIC RESPIRATORY FAILURE WITH HYPOXIA Status: Acute Comment: Improving, continue PRN O2, Duonebs. Pt is afebrile. (3) Pneumothorax Code(s): J93.9 - PNEUMOTHORAX, UNSPECIFIED Status: Acute Comment: S/p CT placement and removal (4) HTN (hypertension) Code(s): I10 - ESSENTIAL (PRIMARY) HYPERTENSION Status: Chronic Comment: controlled (5) BRAD (obstructive sleep apnea) Code(s): G47.33 - OBSTRUCTIVE SLEEP APNEA (ADULT) (PEDIATRIC) Status: Chronic Comment: using nocturnal CPAP - Plan * . Review of Systems - Review of Systems Cardiovascular: negative: chest pain, palpitations, orthopnea, paroxysmal nocturnal dyspnea, edema, light headedness Gastrointestinal: negative: Nausea, Vomiting, Abdominal Pain, Diarrhea, Constipation, Melena, Hematochezia - Medications/Allergies Allergies/Adverse Reactions: Allergies Allergy/AdvReac Type Severity Reaction Status Date / Time No Known Allergies Allergy Unverified 05/09/18 09:02 Medications: Current Medications Acetaminophen (Tylenol) 650 mg PO Q4H PRN PRN Reason: Headache/Fever/Mild Pain (1-3) Last Admin: 08/21/18 21:11 Dose: 650 mg Al Hydroxide/Mg Hydroxide (Maalox) 30 ml PO Q4H PRN PRN Reason: Indigestion Last Admin: 08/22/18 21:45 Dose: 30 ml Albuterol/Ipratropium (Duoneb) 3 ml NEB [id number] [facility] Last Admin: 08/24/18 08:24 Dose: 3 ml Alprazolam (Xanax) 0.25 mg PO QIDPRN PRN PRN Reason: Anxiety/Agitation Last Admin: 08/23/18 23:23 Dose: 0.25 mg Amlodipine Besylate (Norvasc) 10 mg PO DAILY [facility] Last Admin: 08/24/18 09:05 Dose: 10 mg Artificial Tears (Tears Naturale) 2 drop EA EYE PRN PRN PRN Reason: Dry Eyes Bisacodyl (Dulcolax) 10 mg PO DAILYPRN PRN PRN Reason: Constipation Last Admin: 08/12/18 12:52 Dose: 10 mg Bisacodyl (Dulcolax) 10 mg NE DAILYPRN PRN PRN Reason: Constipation Calcium Carbonate (Tums) 1,000 mg PO Q4H PRN PRN Reason: Heartburn or Indigestion Last Admin: 08/23/18 06:26 Dose: 1,000 mg Clonidine (Catapres) 0.1 mg PO Q4H PRN PRN Reason: SBP > 180 Dutasteride (Avodart) 0.5 mg PO DAILY [facility] Last Admin: 08/24/18 09:07 Dose: 0.5 mg Famotidine (Pepcid) 20 mg SLOW IVP BID [facility] Last Admin: 08/24/18 09:04 Dose: 20 mg Fluconazole (Diflucan) 100 mg PO 1400 [facility] Stop: 08/25/18 23:59 Last Admin: 08/23/18 14:47 Dose: 100 mg Guaifenesin (Mucinex) 600 mg PO TID [facility] Last Admin: 08/24/18 09:04 Dose: 600 mg Guaifenesin (Robitussin Sf) 200 mg PO Q4H PRN PRN Reason: Cough Last Admin: 08/24/18 06:22 Dose: 200 mg Hydralazine HCl (Apresoline) 10 mg SLOW IVP Q4H PRN PRN Reason: SBP > 180 and HR < 70 Loperamide HCl (Imodium) 2 mg PO PRN PRN PRN Reason: Diarrhea/Loose Stools Loratadine (Claritin) 10 mg PO DAILYPRN PRN PRN Reason: Sinus Symptoms Magnesium Hydroxide (Milk Of Magnesium) 30 ml PO DAILYPRN PRN PRN Reason: Constipation Last Admin: 08/21/18 11:27 Dose: 30 ml Mineral Oil/White Petrolatum (Eucerin Cream) 0 gm TOP BIDPRN PRN PRN Reason: Dry Skin Mometasone Furoate/Formoterol Fumar (Dulera 200 Mcg/5 Mcg Inhaler) 2 puff INH BID-RT [facility] Last Admin: 08/24/18 08:27 Dose: 2 puff Ondansetron HCl (Zofran Odt) 4 mg PO Q6H PRN PRN Reason: Nausea/Vomiting Ondansetron HCl (Zofran) 4 mg IVP Q6H PRN PRN Reason: Nausea/Vomiting Last Admin: 08/22/18 20:40 Dose: 4 mg Polyethylene Glycol (Miralax) 17 gm PO DAILYPRN PRN PRN Reason: Constipation Prednisone (Prednisone) 10 mg PO QA-[facility] Last Admin: 08/24/18 09:05 Dose: 10 mg Rosuvastatin Calcium (Crestor) 10 mg PO [facility] Last Admin: 08/23/18 20:49 Dose: 10 mg Senna/Docusate Sodium (Senokot S) 2 tab PO BID PRN PRN Reason: Constipation Last Admin: 08/12/18 17:13 Dose: 2 tab Simethicone (Mylicon Chewable) 80 mg PO TIDPRN PRN PRN Reason: . Last Admin: 08/21/18 21:14 Dose: 80 mg Sodium Chloride ([place] Nasal [place] 0.65%) 0 ml EA NARE QIDPRN PRN PRN Reason: Nasal Congestion Last Admin: 08/19/18 17:26 Dose: 1 spr Sodium Chloride (Flush - Normal Saline) 10 ml IVF Q12HR [facility] Last Admin: 08/24/18 09:20 Dose: Not Given Sodium Chloride (Flush - Normal Saline) 10 ml IVF PRN PRN PRN Reason: Saline Flush Last Admin: 08/14/18 05:19 Dose: 10 ml Sucralfate (Carafate) 1 gm PO ACHS [facility] Last Admin: 08/24/18 09:04 Dose: 1 gm Tamsulosin HCl (Flomax) 0.4 mg PO BID [facility] Last Admin: 08/24/18 09:05 Dose: 0.4 mg Throat Lozenges (Cepastat Lozenges) 1 ann PO Q2H PRN PRN Reason: Sore Throat Zolpidem Tartrate (Ambien) 5 mg PO HSPRN PRN PRN Reason: Insomnia
[2018-08-24 13:13] LABS: Hemoglobin 10.1 g/dL (14.0-18.0); Mean Corpuscular HGB CONC 31.4 g/dL (32.0-36.0); Mean Corpuscular Hemoglobin 28.2 pg (27.0-31.0); Mean Corpuscular Volume 89.9 fL (78.0-98.0); Platelet Count 322 thou/uL (130-400); RBC Distribution Width 16.1 % (11.5-14.5); Red Blood Cell (RBC) Count 3.57 mill/uL (4.70-6.10); White Blood Cell (WBC) Count 18.2 thou/uL (4.8-10.8)
[2018-08-24 13:29] LABS: Anisocytosis SLIGHT = 6-15 cells (100X) (0-5/hpf); Band 2 % (5-11); Burr Cells SLIGHT = 2-5 cells (100X) (0-1/hpf); Eosinophils 1 % (0-10); Lymphocytes 5 % (21-51); MDiff Complete? YES; Monocytes 7 % (0-10); Neutrophil 85 % (42-75); PLT Morphology Comment Appears Adequate; Polychromasia SLIGHT = 2-3 cells (100X) (0-2/hpf)
--- NOTE | 2018-08-24 14:40 | PRG ---
DATE OF SERVICE: 08/24/2018 SUBJECTIVE: Patient was seen and examined at bedside and overnight events noted. Patient denies any shortness of breath or chest pain or palpitation. No history of nausea or vomiting or diarrhea or f ever or chills or cramps. OBJECTIVE: GENERAL: This is an obese male, in no apparent distress. VITAL SIGNS: Temperature 97.9, pulse , respiratory rate 18, blood pressure . HEENT: Atraumatic, normocephalic. Oral mucosa is moist. NECK: Supple. CARDIOVASCULAR: S1, S2 heard. Rate and rhythm regular. RESPIRATORY: Clear to auscultation. GASTROINTESTINAL: Abdomen is soft. MUSCULOSKELETAL: No tenderness. No edema. DERMATOLOGIC: No skin rash. NEUROLOGIC: Alert and awake and oriented x3. No focal neurologic deficits. Moving all the extremit ies. PSYCHIATRIC: Mood and affect normal. LABORATORY DATA: Potassium is 5.0, BUN is 98, creatinine is 6.09. ASSESSMENT AND PLAN: 1. Acute kidney injury, dialysis dependent, but no acute indication for dialysis today. 2. Hyponatremia, better. 3. Metabolic acidosis, stable. 4. Edema with fluid overload. Limit fluid intake. No acute indication for dialysis. Creatinine is still getting worse. No urine eosinophils. Agree w ith holding the antibiotics if possible and we will monitor. The patient might need a renal biopsy f or the etiology once uremia is resolved. We will follow. DAVIDE screen is negative.
--- NOTE | 2018-08-24 14:53 | PRG ---
DATE OF SERVICE: 08/24/2018 SUBJECTIVE: Mr. Mart has no new complaints. He is frustrated because his renal function has not started to return to normal. PHYSICAL EXAMINATION: VITAL SIGNS: He is afebrile, heart rate 80, respiratory rate 20, oximetry is mid 90s on 2 liters, blood pressure 135/72. LUNGS: Clear. HEART: Regular rhythm. ABDOMEN: Soft. He says his reflux is much better. IMPRESSION: 1. Pneumonia, clinically adequately treated. We can stop his antibiotics in the morning. 2. Chronic obstructive pulmonary disease, clinically stable. 3. Acute renal failure. PLAN: We will continue to follow the other physicians caring for Mr. Mart. I have asked family to take him downstairs and let him sit outside, get some fresh air today. [place]
[2018-08-24] MEDS: Fluconazole 100 MG TAB PO SCH (15:42)
[2018-08-24] MEDS: ALPRAZolam 0.25 MG TAB PO PRN (22:02)
[2018-08-24] MEDS: Rosuvastatin 10 MG TAB PO SCH (22:02)
[2018-08-24] MEDS: Senokot S 8.6-50 MG TAB PO PRN (22:25)
[2018-08-25 05:12] LABS: #Eosinphils 0.2 thou/uL (0.0-0.7); #Lymphocytes 1.1 thou/uL (1.20-3.40); #Neutrophils 14.5 thou/uL (1.40-6.50); %Basophils 0.2 % (0.0-1.0); %Eosinophils 1.4 % (0.0-10.0); %Lymphocytes 6.6 % (21.0-51.0); %Monocytes 5.8 % (0.0-10.0); %Neutrophils 86.1 % (42.0-75.0); Hemoglobin 9.8 g/dL (14.0-18.0); Mean Corpuscular HGB CONC 30.5 g/dL (32.0-36.0); Mean Corpuscular Hemoglobin 26.9 pg (27.0-31.0); Mean Corpuscular Volume 88.3 fL (78.0-98.0); Mean Platelet Volume 7.7 fL (7.4-10.4); Platelet Count 326 thou/uL (130-400); Red Blood Cell (RBC) Count 3.63 mill/uL (4.70-6.10); White Blood Cell (WBC) Count 16.9 thou/uL (4.8-10.8)
[2018-08-25 05:25] LABS: Anion Gap 13 mmol/L (10-20); BUN (Urea Nitrogen) 106 mg/dL (8.4-25.7); Calc. Creatinine Clearance 16 mL/min (70-130); Calcium 8.2 mg/dL (7.8-10.44); Carbon Dioxide 22 mmol/L (23-31); Chloride 105 mmol/L (98-107); Estimated GFR-MDRD 9; Glucose 101 mg/dL (83-110); Potassium 4.8 mmol/L (3.5-5.1); Sodium 135 mmol/L (136-145)
[2018-08-25] MEDS: Mometasone/Formoterol 120 PUFF INHALER INH SCH ×2 (05:54→19:46)
[2018-08-25] MEDS: Sucralfate 1 GM/10 ML UDCUP PO SCH ×4 (06:27→21:16)
--- NOTE | 2018-08-25 07:27 | PRG ---
DATE OF SERVICE: 08/25/2018 SUBJECTIVE: Mr. Mart has no new complaints. OBJECTIVE: VITAL SIGNS: Heart rates in the 80s, respiratory rates in the teens, oximetry is 93% on 3 liters. L UNGS: Clear. HEART: Regular rhythm. ABDOMEN: Soft. He is scheduled for dialysis today. LABORATORY DATA: White count 16.9, hemoglobin 9.8, platelets 326. Sodium 135, potassium 4.8, chloride 105, bicarbonate 22, BUN 106, creatinine 6.22. Intake and output is positive 1850, only had 350 mL urine out. IMPRESSION: 1. Acute renal failure associated with pneumonia. 2. Underlying chronic obstructive pulmonary disease. 3. Deconditioning. PLAN: Continue to exercise. Continue with dialysis until his renal function returns.
--- NOTE | 2018-08-25 07:33 | PRG ---
DATE OF SERVICE: 08/25/2018 SUBJECTIVE: No complaints, no hemodialysis over the weekend, wants to go home. OBJECTIVE: VITAL SIGNS: Afebrile, 93% on 3 liters. I's and O's 1400 in and 1050 of yellow urine. ABDOMEN: Soft, obese, protuberant, no suprapubic tenderness. GENITOURINARY: De catheter was secured as it is not adequately secured. There is a significant penile scrotal edema consistent with fluid overload and anasarca. PERTINENT LABORATORY DATA: White count 16, hemoglobin 9.8, platelets 326. INR on 08/19/2018 is 1.7. Patient did not receive hemodialysis over the weekend. His BUN is 106, creatinine 6.22. Urine culture negative. IMPRESSION AND PLAN: 1. Mr. Mart is a 77-year-old male admitted for pneumonia and pneumothorax. 2. History of atrial fibrillation, on Coumadin. 3. Acute kidney injury, renal failure. Nephrology following with intermittent dialysis. His renal function has no significant improvement. Nephrology planning possible renal biopsy. 4. Urologic issues of benign prostatic hypertrophy, postvoid residual of 600- 700 mL. Continue Flomax b.i.d., Avodart. patient has followup with me next week. Pending patient's disposition this week, I would consider voiding trial in house when his disposition is finalized. As he does have significant fluid overload with penile scrotal edema, will continue indwelling De catheter for now until disposition finalized. will follow peripherally. PRAISH
[2018-08-25] MEDS: Famotidine/PF 20 mg/2ml Vial SLOW IVP SCH (08:08)
[2018-08-25] MEDS: predniSONE 20 MG TAB PO SCH (08:08)
[2018-08-25] MEDS: Dutasteride 0.5 MG CAP PO SCH (08:09)
[2018-08-25] MEDS: guaiFENesin ER 600 MG TAB PO SCH ×3 (08:09→21:16)
[2018-08-25] MEDS: Amlodipine 10 MG TAB PO SCH (08:09)
[2018-08-25] MEDS: Tamsulosin HCl 0.4 MG CAP PO SCH ×2 (08:09→21:16)
--- NOTE | 2018-08-25 12:29 | PDOC.PN ---
- Subjective Encounter Start Date: 08/25/18 Encounter Start Time: 08:00 Pt seen for followup re: NNEKA. Denies chest pain, shortness of breath, fevers or chills. - Objective Resuscitation Status: Resuscitation Status FULL:Full Resuscitation MAR Reviewed: Yes Vital Signs & Weight: Vital Signs (12 hours) Temp Pulse Resp BP Pulse Ox 08/25/18 09:29 79 18 94 L 08/25/18 08:09 91 08/25/18 08:00 96 08/25/18 07:21 97.6 F 91 18 150/64 H 96 08/25/18 05:54 84 16 93 L 08/25/18 05:52 84 16 93 L 08/25/18 02:36 93 L Weight Admit Weight 216 lb Weight 247 lb 12.8 oz I&O: 08/24/18 08/25/18 08/26/18 06:59 06:59 06:59 Intake Total 1400 Output Total 1050 Balance 350 Result Diagrams: 08/26/18 04:00 08/26/18 04:00 Additional Labs: Labs reviewed by me Phys Exam - Physical Examination Constitutional: NAD HEENT: moist MMs Neck: supple Respiratory: clear to auscultation bilateral Cardiovascular: RRR Gastrointestinal: soft Musculoskeletal: edema present Neurological: moves all 4 limbs Psychiatric: normal affect Dx/Plan (1) NNEKA (acute kidney injury) Code(s): N17.9 - ACUTE KIDNEY FAILURE, UNSPECIFIED Status: Acute Comment: For dialysis today. Cefdinir discontinued yesterday. (2) Acute and chronic respiratory failure with hypoxia Code(s): J96.21 - ACUTE AND CHRONIC RESPIRATORY FAILURE WITH HYPOXIA Status: Acute Comment: continue PRN O2, Duonebs (3) Pneumothorax Code(s): J93.9 - PNEUMOTHORAX, UNSPECIFIED Status: Acute Comment: stable, s/ p CT placement and removal (4) HTN (hypertension) Code(s): I10 - ESSENTIAL (PRIMARY) HYPERTENSION Status: Chronic Comment: controlled (5) BRAD (obstructive sleep apnea) Code(s): G47.33 - OBSTRUCTIVE SLEEP APNEA (ADULT) (PEDIATRIC) Status: Chronic Comment: on CPAP - Plan plan discussed w/ family, out of bed/ambulate * . Diswcussed with patient and , updated them. Discussed with nephrology service as well. Review of Systems - Review of Systems Respiratory: negative: Cough, Shortness of Breath, SOB with Excertion, Pleuritic Pain, Wheezing Cardiovascular: negative: chest pain, palpitations, orthopnea, paroxysmal nocturnal dyspnea, edema, light headedness - Medications/Allergies Allergies/Adverse Reactions: Allergies Allergy/AdvReac Type Severity Reaction Status Date / Time No Known Allergies Allergy Unverified 05/09/18 09:02 Medications: Current Medications Acetaminophen (Tylenol) 650 mg PO Q4H PRN PRN Reason: Headache/Fever/Mild Pain (1-3) Last Admin: 08/21/18 21:11 Dose: 650 mg Al Hydroxide/Mg Hydroxide (Maalox) 30 ml PO Q4H PRN PRN Reason: Indigestion Last Admin: 08/22/18 21:45 Dose: 30 ml Albuterol/Ipratropium (Duoneb) 3 ml NEB [id number] [facility] Last Admin: 08/25/18 09:29 Dose: 3 ml Amlodipine Besylate (Norvasc) 10 mg PO DAILY [facility] Last Admin: 08/25/18 08:09 Dose: 10 mg Artificial Tears (Tears Naturale) 2 drop EA EYE PRN PRN PRN Reason: Dry Eyes Bisacodyl (Dulcolax) 10 mg PO DAILYPRN PRN PRN Reason: Constipation Last Admin: 08/12/18 12:52 Dose: 10 mg Bisacodyl (Dulcolax) 10 mg [place] DAILYPRN PRN PRN Reason: Constipation Calcium Carbonate (Tums) 1,000 mg PO Q4H PRN PRN Reason: Heartburn or Indigestion Last Admin: 08/23/18 06:26 Dose: 1,000 mg Clonidine (Catapres) 0.1 mg PO Q4H PRN PRN Reason: SBP > 180 Dutasteride (Avodart) 0.5 mg PO DAILY [facility] Last Admin: 08/25/18 08:09 Dose: 0.5 mg Famotidine (Pepcid) 20 mg SLOW IVP 0900 SHORTY Fluconazole (Diflucan) 100 mg PO 1400 [facility] Stop: 08/25/18 23:59 Last Admin: 08/24/18 15:42 Dose: 100 mg Guaifenesin (Mucinex) 600 mg PO TID [facility] Last Admin: 08/25/18 08:09 Dose: 600 mg Guaifenesin (Robitussin Sf) 200 mg PO Q4H PRN PRN Reason: Cough Last Admin: 08/24/18 06:22 Dose: 200 mg Hydralazine HCl (Apresoline) 10 mg SLOW IVP Q4H PRN PRN Reason: SBP > 180 and HR < 70 Loperamide HCl (Imodium) 2 mg PO PRN PRN PRN Reason: Diarrhea/Loose Stools Loratadine (Claritin) 10 mg PO DAILYPRN PRN PRN Reason: Sinus Symptoms Magnesium Hydroxide (Milk Of Magnesium) 30 ml PO DAILYPRN PRN PRN Reason: Constipation Last Admin: 08/21/18 11:27 Dose: 30 ml Mineral Oil/White Petrolatum (Eucerin Cream) 0 gm TOP BIDPRN PRN PRN Reason: Dry Skin Mometasone Furoate/Formoterol Fumar (Dulera 200 Mcg/5 Mcg Inhaler) 2 puff INH BID-RT [facility] Last Admin: 08/25/18 05:54 Dose: 2 puff Ondansetron HCl (Zofran Odt) 4 mg PO Q6H PRN PRN Reason: Nausea/Vomiting Ondansetron HCl (Zofran) 4 mg IVP Q6H PRN PRN Reason: Nausea/Vomiting Last Admin: 08/22/18 20:40 Dose: 4 mg Polyethylene Glycol (Miralax) 17 gm PO DAILYPRN PRN PRN Reason: Constipation Prednisone (Prednisone) 10 mg PO QAM-[facility] Last Admin: 08/25/18 08:08 Dose: 10 mg Rosuvastatin Calcium (Crestor) 10 mg PO [facility] Last Admin: 08/24/18 22:02 Dose: 10 mg Senna/Docusate Sodium (Senokot S) 2 tab PO BID PRN PRN Reason: Constipation Last Admin: 08/24/18 22:25 Dose: 2 tab Simethicone (Mylicon Chewable) 80 mg PO TIDPRN PRN PRN Reason: . Last Admin: 08/21/18 21:14 Dose: 80 mg Sodium Chloride ([place] Nasal [place] 0.65%) 0 ml [place] NARE QIDPRN PRN PRN Reason: Nasal Congestion Last Admin: 08/19/18 17:26 Dose: 1 spr Sodium Chloride (Flush - Normal Saline) 10 ml IVF Q12HR [facility] Last Admin: 08/25/18 08:09 Dose: 10 ml Sodium Chloride (Flush - Normal Saline) 10 ml IVF PRN PRN PRN Reason: Saline Flush Last Admin: 08/14/18 05:19 Dose: 10 ml Sucralfate (Carafate) 1 gm PO ACHS [facility] Last Admin: 08/25/18 11:49 Dose: 1 gm Tamsulosin HCl (Flomax) 0.4 mg PO BID [facility] Last Admin: 08/25/18 08:09 Dose: 0.4 mg Throat Lozenges (Cepastat Lozenges) 1 ann PO Q2H PRN PRN Reason: Sore Throat Zolpidem Tartrate (Ambien) 5 mg PO HSPRN PRN PRN Reason: Insomnia
--- NOTE | 2018-08-25 12:36 | PRG ---
DATE OF SERVICE: 08/25/2018 SUBJECTIVE: A 77-year-old gentleman being seen for acute kidney injury. The patient was last dialyz ed Saturday. Patient denies any nausea, vomiting or chest pain. Does have leg swelling. PHYSICAL EXAMINATION: GENERAL: Patient is awake, alert. VITAL SIGNS: Afebrile, pulse 89, breathing at 16, blood pressure 150/64. GENERAL APPEARANCE AND MENTAL STATUS: Fair. HEAD/NECK: Normocephalic. Atraumatic. EYES: EOMI. No deformity. EARS: Clear. No ulcers. NOSE: Intact. No lesions. MOUTH: Clear. No discharge. THROAT: Clear. No exudate. LUNGS: Clear. No crackles. CARDIAC: S1, S2. No rub. ABDOMEN: Benign. BS+. GENITALIA/RECTUM: De absent. BACK/EXTREMITIES: His lower extremities have edema, Ulcer-. NEUROLOGICAL: Alert and motor intact. SKIN: Rash- Bruise- LYMPHATICS: Edema- Ulcer-. LABORATORY DATA: Show hemoglobin 9.8, potassium 4.8, creatinine 6.2. ASSESSMENT AND RECOMMENDATIONS: 1. Chronic kidney disease stage 5, no urgent indication for dialysis. The patient is nonoliguric. The patient's urine output is more than 1000 mL, which has picked up. 2. Anemia, stable. 3. Medication based on GFR are appropriate. 4. Acute kidney injury most likely could be multifactorial, could be acute tubular necrosis versus a cute interstitial nephritis because of penicillin/cephalosporin . Again discussed risks versus benefits. We will follow closely.
[2018-08-25 13:54] LABS: Creatinine, Urine 82.96 mg/dL (63-166)
[2018-08-25] MEDS: Fluconazole 100 MG TAB PO SCH (14:25)
[2018-08-25] MEDS: Milk Of Magnesia 30 ML UDCUP PO PRN (14:28)
[2018-08-25] MEDS: Rosuvastatin 10 MG TAB PO SCH (21:16)
[2018-08-26 04:57] LABS: #Eosinphils 0.3 thou/uL (0.0-0.7); #Lymphocytes 1.2 thou/uL (1.20-3.40); #Monocytes 1.2 thou/uL (0.11-0.59); %Basophils 0.1 % (0.0-1.0); %Eosinophils 1.8 % (0.0-10.0); %Monocytes 7.1 % (0.0-10.0); %Neutrophils 84.1 % (42.0-75.0); Hemoglobin 9.4 g/dL (14.0-18.0); Mean Corpuscular HGB CONC 31.7 g/dL (32.0-36.0); Mean Corpuscular Volume 88.3 fL (78.0-98.0); Mean Platelet Volume 7.9 fL (7.4-10.4); Platelet Count 299 thou/uL (130-400); Red Blood Cell (RBC) Count 3.37 mill/uL (4.70-6.10); White Blood Cell (WBC) Count 16.7 thou/uL (4.8-10.8)
[2018-08-26 05:11] LABS: Anion Gap 11 mmol/L (10-20); BUN (Urea Nitrogen) 109 mg/dL (8.4-25.7); Calc. Creatinine Clearance 17 mL/min (70-130); Carbon Dioxide 25 mmol/L (23-31); Chloride 103 mmol/L (98-107); Estimated GFR-MDRD 9; Glucose 106 mg/dL (83-110); Potassium 4.8 mmol/L (3.5-5.1); Sodium 134 mmol/L (136-145)
[2018-08-26] MEDS: Sucralfate 1 GM/10 ML UDCUP PO SCH ×4 (06:31→20:16)
[2018-08-26] MEDS: Mometasone/Formoterol 120 PUFF INHALER INH SCH ×2 (06:32→18:07)
[2018-08-26] MEDS: predniSONE 20 MG TAB PO SCH (08:08)
[2018-08-26] MEDS: Tamsulosin HCl 0.4 MG CAP PO SCH ×2 (08:09→20:16)
[2018-08-26] MEDS: guaiFENesin ER 600 MG TAB PO SCH ×3 (08:09→20:16)
[2018-08-26] MEDS: Dutasteride 0.5 MG CAP PO SCH (08:09)
[2018-08-26] MEDS: Amlodipine 10 MG TAB PO SCH (08:09)
[2018-08-26] MEDS: Famotidine/PF 20 mg/2ml Vial SLOW IVP SCH (08:11)
[2018-08-26 11:22] LABS: Cytoplasmic (C-ANCA) <1:20 titer (Neg:<1:20); Myeloperoxidase AutoAbs <9.0 U/mL (0.0-9.0); Perinuclear (P-ANCA) <1:20 titer (Neg:<1:20); Proteinase-3 AutoAbs Less than 3.5 U/mL (0.0-3.5)
[2018-08-26 11:58] VITALS: BMI 36.6
--- NOTE | 2018-08-26 12:56 | PRG ---
DATE OF SERVICE: 08/26/2018 SUBJECTIVE: A 77-year-old male for acute kidney injury. The patient denies any nausea, vomiti ng, or chest pain. PHYSICAL EXAMINATION: GENERAL: Patient is awake, alert. VITAL SIGNS: Afebrile, pulse 85, breathing at 16, blood pressure 142/64. HEAD/NECK: Normocephalic. Atraumatic. EYES: EOMI. No deformity. EARS: Clear. No ulcers. NOSE: Intact. No lesions. MOUTH: Clear. No discharge. THROAT: Clear. No exudate. LUNGS: Clear. No crackles. CARDIAC: S1, S2. No rub. ABDOMEN: Benign. BS+. GENITALIA/RECTUM: De absent. BACK/EXTREMITIES: Edema 0+ Ulcer- NEUROLOGICAL: Alert and motor intact. SKIN: Rash- Bruise- LYMPHATICS: Edema- Ulcer- LABORATORY DATA: Hemoglobin 9.4, creatinine . ASSESSMENT AND RECOMMENDATIONS: 1. Acute kidney injury, improves. 2. Chronic kidney disease stage 3, stable. 3. Hyperkalemia, stable. 4. Medications based on glomerular filtration rate are appropriate. 5. Hyponatremia, improved. No indication for dialysis. We will remove the temporary catheter. We will follow closely.
--- NOTE | 2018-08-26 14:40 | PRG ---
DATE OF SERVICE: 08/26/2018 SUBJECTIVE: Mr. Mart is happy today. OBJECTIVE: VITAL SIGNS: He is afebrile, heart rates in the 80s, respiratory rate 16, O2 sats 93 on 3 liters. I ntake and output is positive 135. LUNGS: Remarkable for fine crackles at his bases. HEART: Regular rhythm. ABDOMEN: Soft. LABORATORY DATA: White count 16.7, hemoglobin 9.4, platelets 299. Sodium 134, potassium 4.8, chlori de 103, bicarb 25, BUN 109, creatinine 5.83 down from 6.22 yesterday. IMPRESSION: 1. Resolving renal failure secondary to acute tubular necrosis associated with pneumonia. 2. Pneumonia, community acquired, adequately treated. 3. Chronic obstructive pulmonary disease, clinically not an issue at this time. 4. Deconditioning. PLAN: He will continue to increase his activity level each day. Hopefully, he will be a candidate f or discharge soon.
[2018-08-26 16:22] LABS: Glomerular Basemt Membrane Ab Less than 1.9 EliAU/mL (<7 Negative)
--- NOTE | 2018-08-26 16:35 | PDOC.PN ---
- Subjective Encounter Start Date: 08/26/18 Encounter Start Time: 09:40 Pt seen for followup re: acute renal failure. Feels better. Leg swelling has improved, pt has been elevating legs. Constipation has resolved, pt had bowel movement. - Objective Resuscitation Status: Resuscitation Status FULL:Full Resuscitation MAR Reviewed: Yes Vital Signs & Weight: Vital Signs (12 hours) Temp Pulse Resp BP Pulse Ox Pulse Ox Pulse Ox 08/26/18 13:30 88 16 936 H 08/26/18 10:31 91 L 76 L 08/26/18 09:31 85 16 92 L 08/26/18 08:09 94 08/26/18 08:00 98.2 F 85 20 142/64 H 92 L 08/26/18 06:32 94 16 93 L 08/26/18 06:29 94 16 93 L Pulse Ox 08/26/18 13:30 08/26/18 10:31 93 L 08/26/18 09:31 08/26/18 08:09 08/26/18 08:00 08/26/18 06:32 08/26/18 06:29 Weight Admit Weight 216 lb Weight 247 lb 12.8 oz I&O: 08/25/18 08/26/18 08/27/18 06:59 06:59 06:59 Intake Total 1400 1560 Output Total 1050 1425 Balance 350 135 Result Diagrams: 08/26/18 04:00 08/26/18 04:00 Additional Labs: Labs reviewed by me Phys Exam - Physical Examination Obese HEENT: moist MMs Neck: supple Respiratory: clear to auscultation bilateral Cardiovascular: RRR Gastrointestinal: soft Neurological: moves all 4 limbs Psychiatric: normal affect Dx/Plan (1) NNEKA (acute kidney injury) Code(s): N17.9 - ACUTE KIDNEY FAILURE, UNSPECIFIED Status: Acute Comment: creatinine improved to 5.83 today, continue to monitor (2) Acute and chronic respiratory failure with hypoxia Code(s): J96.21 - ACUTE AND CHRONIC RESPIRATORY FAILURE WITH HYPOXIA Status: Acute Comment: Improved, continue PRN O2, Duonebs (3) Pneumothorax Code(s): J93.9 - PNEUMOTHORAX, UNSPECIFIED Status: Acute Comment: stable, s/ p CT placement and removal (4) HTN (hypertension) Code(s): I10 - ESSENTIAL (PRIMARY) HYPERTENSION Status: Chronic Comment: controlled (5) BRAD (obstructive sleep apnea) Code(s): G47.33 - OBSTRUCTIVE SLEEP APNEA (ADULT) (PEDIATRIC) Status: Chronic Comment: on CPAP while asleep - Plan * . Review of Systems - Review of Systems Respiratory: negative: Cough, Shortness of Breath, SOB with Excertion, Pleuritic Pain, Sputum Cardiovascular: negative: chest pain, palpitations, orthopnea, paroxysmal nocturnal dyspnea, edema, light headedness - Medications/Allergies Allergies/Adverse Reactions: Allergies Allergy/AdvReac Type Severity Reaction Status Date / Time No Known Allergies Allergy Unverified 05/09/18 09:02 Medications: Current Medications Acetaminophen (Tylenol) 650 mg PO Q4H PRN PRN Reason: Headache/Fever/Mild Pain (1-3) Last Admin: 08/21/18 21:11 Dose: 650 mg Al Hydroxide/Mg Hydroxide (Maalox) 30 ml PO Q4H PRN PRN Reason: Indigestion Last Admin: 08/22/18 21:45 Dose: 30 ml Albuterol/Ipratropium (Duoneb) 3 ml NEB [id number] [facility] Last Admin: 08/26/18 13:30 Dose: 3 ml Amlodipine Besylate (Norvasc) 10 mg PO DAILY [facility] Last Admin: 08/26/18 08:09 Dose: 10 mg Artificial Tears (Tears Naturale) 2 drop EA EYE PRN PRN PRN Reason: Dry Eyes Bisacodyl (Dulcolax) 10 mg PO DAILYPRN PRN PRN Reason: Constipation Last Admin: 08/12/18 12:52 Dose: 10 mg Bisacodyl (Dulcolax) 10 mg [place] DAILYPRN PRN PRN Reason: Constipation Calcium Carbonate (Tums) 1,000 mg PO Q4H PRN PRN Reason: Heartburn or Indigestion Last Admin: 08/23/18 06:26 Dose: 1,000 mg Clonidine (Catapres) 0.1 mg PO Q4H PRN PRN Reason: SBP > 180 Dutasteride (Avodart) 0.5 mg PO DAILY [facility] Last Admin: 08/26/18 08:09 Dose: 0.5 mg Famotidine (Pepcid) 20 mg SLOW IVP 0900 [facility] Last Admin: 08/26/18 08:11 Dose: 20 mg Guaifenesin (Mucinex) 600 mg PO TID [facility] Last Admin: 08/26/18 15:37 Dose: 600 mg Guaifenesin (Robitussin Sf) 200 mg PO Q4H PRN PRN Reason: Cough Last Admin: 08/24/18 06:22 Dose: 200 mg Hydralazine HCl (Apresoline) 10 mg SLOW IVP Q4H PRN PRN Reason: SBP > 180 and HR < 70 Loperamide HCl (Imodium) 2 mg PO PRN PRN PRN Reason: Diarrhea/Loose Stools Loratadine (Claritin) 10 mg PO DAILYPRN PRN PRN Reason: Sinus Symptoms Magnesium Hydroxide (Milk Of Magnesium) 30 ml PO DAILYPRN PRN PRN Reason: Constipation Last Admin: 08/25/18 14:28 Dose: 30 ml Mineral Oil/White Petrolatum (Eucerin Cream) 0 gm TOP BIDPRN PRN PRN Reason: Dry Skin Mometasone Furoate/Formoterol Fumar (Dulera 200 Mcg/5 Mcg Inhaler) 2 puff INH BID-RT [facility] Last Admin: 08/26/18 06:32 Dose: 2 puff Ondansetron HCl (Zofran Odt) 4 mg PO Q6H PRN PRN Reason: Nausea/Vomiting Ondansetron HCl (Zofran) 4 mg IVP Q6H PRN PRN Reason: Nausea/Vomiting Last Admin: 08/22/18 20:40 Dose: 4 mg Polyethylene Glycol (Miralax) 17 gm PO DAILYPRN PRN PRN Reason: Constipation Prednisone (Prednisone) 10 mg PO [facility] Last Admin: 08/26/18 08:08 Dose: 10 mg Rosuvastatin Calcium (Crestor) 10 mg PO [facility] Last Admin: 08/25/18 21:16 Dose: 10 mg Senna/Docusate Sodium (Senokot S) 2 tab PO BID PRN PRN Reason: Constipation Last Admin: 08/24/18 22:25 Dose: 2 tab Simethicone (Mylicon Chewable) 80 mg PO TIDPRN PRN PRN Reason: . Last Admin: 08/21/18 21:14 Dose: 80 mg Sodium Chloride ([place] Nasal [place] 0.65%) 0 ml EA NARE QIDPRN PRN PRN Reason: Nasal Congestion Last Admin: 08/19/18 17:26 Dose: 1 spr Sodium Chloride (Flush - Normal Saline) 10 ml IVF Q12HR [facility] Last Admin: 08/26/18 08:11 Dose: 10 ml Sodium Chloride (Flush - Normal Saline) 10 ml IVF PRN PRN PRN Reason: Saline Flush Last Admin: 08/14/18 05:19 Dose: 10 ml Sucralfate (Carafate) 1 gm PO ACHS [facility] Last Admin: 08/26/18 12:44 Dose: 1 gm Tamsulosin HCl (Flomax) 0.4 mg PO BID [facility] Last Admin: 08/26/18 08:09 Dose: 0.4 mg Throat Lozenges (Cepastat Lozenges) 1 ann PO Q2H PRN PRN Reason: Sore Throat Zolpidem Tartrate (Ambien) 5 mg PO HSPRN PRN PRN Reason: Insomnia
[2018-08-26] MEDS: Rosuvastatin 10 MG TAB PO SCH (20:16)
[2018-08-26] MEDS: Senokot S 8.6-50 MG TAB PO PRN (20:16)
[2018-08-27 05:00] LABS: #Eosinphils 0.2 thou/uL (0.0-0.7); #Lymphocytes 1.1 thou/uL (1.20-3.40); #Monocytes 1.1 thou/uL (0.11-0.59); #Neutrophils 13.7 thou/uL (1.40-6.50); %Basophils 0.3 % (0.0-1.0); %Eosinophils 1.1 % (0.0-10.0); %Lymphocytes 6.9 % (21.0-51.0); %Monocytes 6.7 % (0.0-10.0); Hemoglobin 9.9 g/dL (14.0-18.0); Mean Corpuscular Hemoglobin 27.6 pg (27.0-31.0); Mean Corpuscular Volume 89.2 fL (78.0-98.0); Mean Platelet Volume 7.8 fL (7.4-10.4); Platelet Count 294 thou/uL (130-400); RBC Distribution Width 16.1 % (11.5-14.5); Red Blood Cell (RBC) Count 3.57 mill/uL (4.70-6.10); White Blood Cell (WBC) Count 16.1 thou/uL (4.8-10.8)
[2018-08-27 05:16] LABS: Anion Gap 15 mmol/L (10-20); BUN (Urea Nitrogen) 107 mg/dL (8.4-25.7); Calc. Creatinine Clearance 18 mL/min (70-130); Calcium 8.4 mg/dL (7.8-10.44); Carbon Dioxide 20 mmol/L (23-31); Chloride 104 mmol/L (98-107); Estimated GFR-MDRD 11; Glucose 104 mg/dL (83-110); Potassium 4.6 mmol/L (3.5-5.1); Sodium 134 mmol/L (136-145)
[2018-08-27] MEDS: Mometasone/Formoterol 120 PUFF INHALER INH SCH ×2 (06:57→19:39)
[2018-08-27] MEDS: Sucralfate 1 GM/10 ML UDCUP PO SCH ×4 (07:51→20:20)
[2018-08-27] MEDS: Dutasteride 0.5 MG CAP PO SCH (07:51)
[2018-08-27] MEDS: Amlodipine 10 MG TAB PO SCH (07:52)
[2018-08-27] MEDS: guaiFENesin ER 600 MG TAB PO SCH ×3 (07:52→20:19)
[2018-08-27] MEDS: Tamsulosin HCl 0.4 MG CAP PO SCH ×2 (07:52→20:19)
[2018-08-27] MEDS: predniSONE 20 MG TAB PO SCH (07:53)
[2018-08-27] MEDS: Famotidine/PF 20 mg/2ml Vial SLOW IVP SCH (07:54)
[2018-08-27] MEDS: Mag-Al 1200 mg/1200 mg/30 ML UDCUP PO PRN (08:01)
--- NOTE | 2018-08-27 11:01 | PRG ---
DATE OF SERVICE: 08/27/2018 SUBJECTIVE: This is a 77-year-old gentleman, being seen for acute kidney injury. The patient denies any nausea, vomiting, or chest pain. OBJECTIVE: See above. GENERAL: The patient is awake and alert. VITAL SIGNS: Afebrile, pulse , breathing at 16, blood pressure . GENERAL APPEARANCE AND MENTAL STATUS: Fair. HEAD/NECK: Normocephalic. Atraumatic. EYES: EOMI. No deformity. EARS: Clear. No ulcers. NOSE: Intact. No lesions. MOUTH: Clear. No discharge. THROAT: Clear. No exudate. LUNGS: Clear. No crackles. CARDIAC: S1, S2. No rub. ABDOMEN: Benign. BS+. GENITALIA/RECTUM: De absent. BACK/EXTREMITIES: Lower extremities have 4+ edema. NEUROLOGICAL: Alert and motor intact. SKIN: Rash - bruise. LYMPHATICS: Edema - ulcer. LABORATORY DATA: Labs show hemoglobin 9.9. Creatinine 5.2. ASSESSMENT AND RECOMMENDATIONS: 1. Acute kidney injury with chronic kidney disease, stable. 2. Hypertension, stable. 3. Anemia, stable. 4. Medications based on glomerular filtration rate are appropriate. No indication for dialysis at t his time.
--- NOTE | 2018-08-27 14:48 | PDOC.PN ---
- Subjective Encounter Start Date: 08/27/18 Encounter Start Time: 09:20 Pt seen for followup re:acute kidney failure. Denies chest pain or shortness of breath. - Objective Resuscitation Status: Resuscitation Status FULL:Full Resuscitation MAR Reviewed: Yes Vital Signs & Weight: Vital Signs (12 hours) Temp Pulse Resp BP BP BP Pulse Ox 08/27/18 13:57 92 16 92 L 08/27/18 12:00 98.4 F 78 20 146/60 H 92 L 08/27/18 10:40 08/27/18 10:18 84 16 87 L 08/27/18 08:00 97.7 F 87 18 144/63 H 92 L 08/27/18 07:52 86 157/65 H 08/27/18 07:01 92 L 08/27/18 07:00 88 16 92 L 08/27/18 06:57 88 16 92 L Pulse Ox 08/27/18 13:57 08/27/18 12:00 08/27/18 10:40 77 L 08/27/18 10:18 08/27/18 08:00 08/27/18 07:52 08/27/18 07:01 08/27/18 07:00 08/27/18 06:57 Weight Admit Weight 216 lb Weight 247 lb 12.8 oz I&O: 08/26/18 08/27/18 08/28/18 06:59 06:59 06:59 Intake Total 1560 1490 Output Total 1425 1625 Balance 135 -135 Result Diagrams: 08/27/18 04:10 08/30/18 05:05 Additional Labs: labs reviewed by me Phys Exam - Physical Examination Obese HEENT: moist MMs Neck: supple Respiratory: clear to auscultation bilateral Cardiovascular: RRR Gastrointestinal: soft Musculoskeletal: edema present Neurological: moves all 4 limbs Psychiatric: normal affect Dx/Plan (1) NNEKA (acute kidney injury) Code(s): N17.9 - ACUTE KIDNEY FAILURE, UNSPECIFIED Status: Acute Comment: creatinine improved to 5.27 today, likely due ATN. (2) Acute and chronic respiratory failure with hypoxia Code(s): J96.21 - ACUTE AND CHRONIC RESPIRATORY FAILURE WITH HYPOXIA Status: Acute Comment: Improved (3) Pneumothorax Code(s): J93.9 - PNEUMOTHORAX, UNSPECIFIED Status: Acute Comment: stable, had chest tube placement and removal (4) HTN (hypertension) Code(s): I10 - ESSENTIAL (PRIMARY) HYPERTENSION Status: Chronic Comment: controlled (5) BRAD (obstructive sleep apnea) Code(s): G47.33 - OBSTRUCTIVE SLEEP APNEA (ADULT) (PEDIATRIC) Status: Chronic Comment: on CPAP while asleep - Plan * . Review of Systems - Review of Systems Respiratory: negative: Cough, Shortness of Breath, SOB with Excertion, Pleuritic Pain, Wheezing Cardiovascular: negative: chest pain, palpitations, orthopnea, paroxysmal nocturnal dyspnea, edema, light headedness - Medications/Allergies Allergies/Adverse Reactions: Allergies Allergy/AdvReac Type Severity Reaction Status Date / Time No Known Allergies Allergy Unverified 05/09/18 09:02 Medications: Current Medications Acetaminophen (Tylenol) 650 mg PO Q4H PRN PRN Reason: Headache/Fever/Mild Pain (1-3) Last Admin: 08/21/18 21:11 Dose: 650 mg Al Hydroxide/Mg Hydroxide (Maalox) 30 ml PO Q4H PRN PRN Reason: Indigestion Last Admin: 08/27/18 08:01 Dose: 30 ml Albuterol/Ipratropium (Duoneb) 3 ml NEB [id number] [facility] Last Admin: 08/27/18 13:57 Dose: 3 ml Amlodipine Besylate (Norvasc) 10 mg PO DAILY [facility] Last Admin: 08/27/18 07:52 Dose: 10 mg Artificial Tears (Tears Naturale) 2 drop EA EYE PRN PRN PRN Reason: Dry Eyes Bisacodyl (Dulcolax) 10 mg PO DAILYPRN PRN PRN Reason: Constipation Last Admin: 08/12/18 12:52 Dose: 10 mg Bisacodyl (Dulcolax) 10 mg [place] DAILYPRN PRN PRN Reason: Constipation Calcium Carbonate (Tums) 1,000 mg PO Q4H PRN PRN Reason: Heartburn or Indigestion Last Admin: 08/23/18 06:26 Dose: 1,000 mg Clonidine (Catapres) 0.1 mg PO Q4H PRN PRN Reason: SBP > 180 Dutasteride (Avodart) 0.5 mg PO DAILY [facility] Last Admin: 08/27/18 07:51 Dose: 0.5 mg Famotidine (Pepcid) 20 mg SLOW IVP 0900 [facility] Last Admin: 08/27/18 07:54 Dose: 20 mg Guaifenesin (Mucinex) 600 mg PO TID [facility] Last Admin: 08/27/18 07:52 Dose: 600 mg Guaifenesin (Robitussin Sf) 200 mg PO Q4H PRN PRN Reason: Cough Last Admin: 08/24/18 06:22 Dose: 200 mg Hydralazine HCl (Apresoline) 10 mg SLOW IVP Q4H PRN PRN Reason: SBP > 180 and HR < 70 Loperamide HCl (Imodium) 2 mg PO PRN PRN PRN Reason: Diarrhea/Loose Stools Loratadine (Claritin) 10 mg PO DAILYPRN PRN PRN Reason: Sinus Symptoms Magnesium Hydroxide (Milk Of Magnesium) 30 ml PO DAILYPRN PRN PRN Reason: Constipation Last Admin: 08/25/18 14:28 Dose: 30 ml Mineral Oil/White Petrolatum (Eucerin Cream) 0 gm TOP BIDPRN PRN PRN Reason: Dry Skin Mometasone Furoate/Formoterol Fumar (Dulera 200 Mcg/5 Mcg Inhaler) 2 puff INH BID-RT [facility] Last Admin: 08/27/18 06:57 Dose: 2 puff Ondansetron HCl (Zofran Odt) 4 mg PO Q6H PRN PRN Reason: Nausea/Vomiting Ondansetron HCl (Zofran) 4 mg IVP Q6H PRN PRN Reason: Nausea/Vomiting Last Admin: 08/22/18 20:40 Dose: 4 mg Polyethylene Glycol (Miralax) 17 gm PO DAILYPRN PRN PRN Reason: Constipation Prednisone (Prednisone) 10 mg PO QAM-[facility] Last Admin: 08/27/18 07:53 Dose: 10 mg Rosuvastatin Calcium (Crestor) 10 mg PO [facility] Last Admin: 08/26/18 20:16 Dose: 10 mg Senna/Docusate Sodium (Senokot S) 2 tab PO BID PRN PRN Reason: Constipation Last Admin: 08/26/18 20:16 Dose: 2 tab Simethicone (Mylicon Chewable) 80 mg PO TIDPRN PRN PRN Reason: . Last Admin: 08/21/18 21:14 Dose: 80 mg Sodium Chloride ([place] Nasal [place] 0.65%) 0 ml EA NARE QIDPRN PRN PRN Reason: Nasal Congestion Last Admin: 08/19/18 17:26 Dose: 1 spr Sodium Chloride (Flush - Normal Saline) 10 ml IVF Q12HR [facility] Last Admin: 08/27/18 07:54 Dose: 10 ml Sodium Chloride (Flush - Normal Saline) 10 ml IVF PRN PRN PRN Reason: Saline Flush Last Admin: 08/14/18 05:19 Dose: 10 ml Sucralfate (Carafate) 1 gm PO ACHS [facility] Last Admin: 08/27/18 11:41 Dose: 1 gm Tamsulosin HCl (Flomax) 0.4 mg PO BID [facility] Last Admin: 08/27/18 07:52 Dose: 0.4 mg Throat Lozenges (Cepastat Lozenges) 1 ann PO Q2H PRN PRN Reason: Sore Throat Zolpidem Tartrate (Ambien) 5 mg PO HSPRN PRN PRN Reason: Insomnia
--- NOTE | 2018-08-27 16:26 | PRG ---
DATE OF SERVICE: 08/27/2018 INPATIENT PROGRESS NOTE SUBJECTIVE: The patient is still feeling somewhat down, as he has been in the hospital for quite ailyn e time. OBJECTIVE: VITAL SIGNS: Stable. He is afebrile. Urine output 875 over the last 24 hours. ABDOMEN: Morbidly obese. GENITOURINARY: Demonstrates prepucial scrotal edema consistent with fluid overload, anasarca. LABORATORY DATA: White count 16, which has been relatively stable. Creatinine is 5.2, BUN 107. Katharina or urine culture is negative. IMPRESSION AND PLAN: Mr. Mart is a 77-year-old male admitted for, 1. Pneumonia. 2. Pneumothorax. 3. Acute kidney injury, renal failure. Nephrology following with no indications for repeat dialysis at this time. As the patient is being considered for possible discharge, I will perform a voiding t rial in house. De catheter to be removed early tomorrow morning for a voiding trial. Continue BP H meds with Flomax b.i.d., Avodart.
--- NOTE | 2018-08-27 17:15 | PRG ---
DATE OF SERVICE: 08/27/2018 SUBJECTIVE: Mr. Mart has no complaints. He wants to go home. He still has a De in. He still h as scrotal and penile edema. LUNGS: Clear. CARDIOVASCULAR: Regular rhythm. ABDOMEN: Soft. IMPRESSION AND PLAN: 1. Status post admission for pneumonia. 2. Acute renal failure that is resolving. His creatinine has come down some more today. On his las t radiograph, he barely had any residual infiltrate left from his pneumonia. 3. Chronic obstructive pulmonary disease exacerbation, that is mild this admission that has resolved . 4. Indwelling De now for 2 weeks. Apparently, the plan is to remove at 4:00 in the morning tomorrow. I will continue to follow with e other physician's caring for him. Hopefully, he will be stable to go home in 24-48 hours.
[2018-08-27] MEDS: Rosuvastatin 10 MG TAB PO SCH (20:19)
[2018-08-28] MEDS: Mometasone/Formoterol 120 PUFF INHALER INH SCH ×2 (06:09→19:16)
[2018-08-28 06:30] LABS: Anion Gap 13 mmol/L (10-20); BUN (Urea Nitrogen) 106 mg/dL (8.4-25.7); Calc. Creatinine Clearance 20 mL/min (70-130); Calcium 8.5 mg/dL (7.8-10.44); Carbon Dioxide 23 mmol/L (23-31); Chloride 105 mmol/L (98-107); Estimated GFR-MDRD 12; Glucose 89 mg/dL (83-110); Potassium 4.5 mmol/L (3.5-5.1); Sodium 136 mmol/L (136-145)
[2018-08-28] MEDS: guaiFENesin ER 600 MG TAB PO SCH ×3 (08:33→20:52)
[2018-08-28] MEDS: predniSONE 20 MG TAB PO SCH (08:33)
[2018-08-28] MEDS: Mag-Al 1200 mg/1200 mg/30 ML UDCUP PO PRN (08:33)
[2018-08-28] MEDS: Amlodipine 10 MG TAB PO SCH (08:34)
[2018-08-28] MEDS: Tamsulosin HCl 0.4 MG CAP PO SCH ×2 (08:34→20:52)
[2018-08-28] MEDS: Famotidine 20 MG TAB PO SCH (08:34)
--- NOTE | 2018-08-28 08:35 | PRG ---
DATE OF SERVICE: 08/28/2018 SUBJECTIVE: The patient is alert, awake. Catheter was removed per my request for a voiding trial at 5:00 a.m., has not yet voided significantly. PHYSICAL EXAMINATION: VITAL SIGNS: Stable, afebrile. Yesterday his urine output was 1450. ABDOMEN: Obese, protuberant. GENITOURINARY: Prepucial penile edema consistent with anasarca. LABORATORY DATA: White count 16, stable, hemoglobin 9.9. Creatinine is 4.7, yesterday was 5.2. IMPRESSION AND PLAN: 1. Mr. Mart is a 77-year-old male admitted for pneumonia, pneumothorax. 2. Acute kidney injury, renal failure, being monitored by Nephrology. 3. Urinary retention, benign prostatic hypertrophy, currently on Flomax, Avodart initiated. De catheter removed this morning for a voiding trial. will monitor his voiding status. [facility]
[2018-08-28] MEDS: Sucralfate 1 GM/10 ML UDCUP PO SCH ×4 (08:47→20:52)
[2018-08-28] MEDS: Dutasteride 0.5 MG CAP PO SCH (08:49)
--- NOTE | 2018-08-28 14:12 | PRG ---
DATE OF SERVICE: 08/28/2018 SUBJECTIVE: A 77-year-old male being seen for acute kidney injury. The patient denies any nausea, v omiting, or chest pain. PHYSICAL EXAMINATION: GENERAL: Patient is awake. VITAL SIGNS: Pulse 85, breathing 16, blood pressure 162/82. GENERAL APPEARANCE AND MENTAL STATUS: Fair. HEAD/NECK: Normocephalic. Atraumatic. EYES: EOMI. No deformity. EARS: Clear. No ulcers. NOSE: Intact. No lesions. MOUTH: Clear. No discharge. THROAT: Clear. No exudate. LUNGS: Clear. No crackles. CARDIAC: S1, S2. No rub. ABDOMEN: Benign. BS+. GENITALIA/RECTUM: De absent. BACK/EXTREMITIES: Edema 0+ Ulcer- NEUROLOGICAL: Alert and motor intact. SKIN: Rash- Bruise- LYMPHATICS: Edema- Ulcer- without edema. LABORATORY DATA: Hemoglobin 9.9, creatinine is 4.7. ASSESSMENT AND RECOMMENDATIONS: 1. Acute kidney injury, improved. 2. Hypertension, stable. 3. Anemia, stable. No indication for dialysis. Edema is improving.
--- NOTE | 2018-08-28 15:00 | PRG ---
DATE OF SERVICE: 08/28/2018 SUBJECTIVE: Mr. Mart has no new complaints. His De is out. He is not voiding much. OBJECTIVE: LUNGS: Clear. VITAL SIGNS: Heart rate 89, respiratory rate 16, oximetry is 95 on 3 liters. HEART: Regular rhythm. ABDOMEN: Soft. IMPRESSION: 1. Status post pneumonia with chronic obstructive pulmonary disease. 2. Urinary retention. 3. Acute renal failure with recovering renal function. His creatinine is down to 4.77 today and his BUN is 106. Potassium is 4.5. 4. Deconditioning. PLAN: He is walking over 400 feet with physical therapy following him. I do not think he will need to go into a retirement bed. The only issue currently at hand is whether or not he will need to go home with a leg bag.
--- NOTE | 2018-08-28 15:14 | PDOC.PN ---
- Subjective Encounter Start Date: 08/28/18 Encounter Start Time: 15:12 Mr. Mart was seen today in follow-up of Pneumonia and acute renal failure. He notes feeling a bit weak, and still has quite a bit of swelling, otherwise ok. He also notes some dyspnea as well. - Objective Resuscitation Status: Resuscitation Status FULL:Full Resuscitation MAR Reviewed: Yes Vital Signs & Weight: Vital Signs (12 hours) Temp Pulse Resp BP Pulse Ox 08/28/18 13:51 89 16 95 08/28/18 10:09 85 16 93 L 08/28/18 08:34 85 08/28/18 07:26 98.2 F 85 20 168/62 H 92 L 08/28/18 06:04 88 16 95 Weight Admit Weight 216 lb Weight 247 lb 12.8 oz I&O: 08/27/18 08/28/18 08/29/18 06:59 06:59 06:59 Intake Total 1490 1600 Output Total 1625 1450 Balance -135 150 Result Diagrams: 08/27/18 04:10 08/28/18 05:37 Phys Exam - Physical Examination HEENT: PERRLA Respiratory: no wheezing, no rales, no rhonchi, clear to auscultation bilateral Cardiovascular: RRR, no significant murmur, no rub Gastrointestinal: soft, non-tender, no distention, positive bowel sounds Musculoskeletal: edema present + 2-3+ pitting edema in both upper and lower extremities Neurological: non-focal, moves all 4 limbs Dx/Plan (1) Spontaneous pneumothorax Code(s): J93.83 - OTHER PNEUMOTHORAX Status: Acute (2) NNEKA (acute kidney injury) Code(s): N17.9 - ACUTE KIDNEY FAILURE, UNSPECIFIED Status: Acute Comment: creatinine improved to 5.27 today, likely due ATN. (3) Pneumonia Code(s): J18.9 - PNEUMONIA, UNSPECIFIED ORGANISM Status: Acute Comment: Persistent on CXR. On cefepime. (4) HTN (hypertension) Code(s): I10 - ESSENTIAL (PRIMARY) HYPERTENSION Status: Chronic Comment: controlled (5) COPD (chronic obstructive pulmonary disease) Status: Chronic Comment: Continue Duonebs, Dulera, Prednisone - Plan * Pneumonia with Spontaneous Pneumothorax- He has completed his course of antibiotics, and the Pneumothorax has resolved * Acute Kidney Injury- possible from Cephalosporins, or ATN- this is improving * HTN- blood pressure is slightly elevated- will monitor- adjust medications if needed. * COPD- continue long acting Beta-agonist, and Duonebs as needed * Mobilize
[2018-08-28] MEDS: Rosuvastatin 10 MG TAB PO SCH (20:52)
[2018-08-28 20:57] VITALS: TEMP 97.2
[2018-08-29 05:38] LABS: Anion Gap 12 mmol/L (10-20); BUN (Urea Nitrogen) 96 mg/dL (8.4-25.7); Calc. Creatinine Clearance 24 mL/min (70-130); Calcium 8.2 mg/dL (7.8-10.44); Carbon Dioxide 23 mmol/L (23-31); Chloride 104 mmol/L (98-107); Estimated GFR-MDRD 14; Glucose 84 mg/dL (83-110); Potassium 4.4 mmol/L (3.5-5.1); Sodium 135 mmol/L (136-145)
[2018-08-29] MEDS: Sucralfate 1 GM/10 ML UDCUP PO SCH ×4 (06:21→20:36)
[2018-08-29] MEDS: Mometasone/Formoterol 120 PUFF INHALER INH SCH ×2 (06:52→18:36)
[2018-08-29] MEDS: Amlodipine 10 MG TAB PO SCH (08:04)
[2018-08-29] MEDS: guaiFENesin ER 600 MG TAB PO SCH ×3 (08:04→20:36)
[2018-08-29] MEDS: predniSONE 20 MG TAB PO SCH (08:04)
[2018-08-29] MEDS: Famotidine 20 MG TAB PO SCH (08:05)
[2018-08-29] MEDS: Tamsulosin HCl 0.4 MG CAP PO SCH ×2 (08:06→20:36)
[2018-08-29] MEDS ORDERED: Albuterol Sulfate 2.5 mg/3 ml Neb IPPB PRN (08:10)
[2018-08-29] MEDS ORDERED: Furosemide 100 MG/10 ML VIAL SLOW IVP SCH (08:30)
--- NOTE | 2018-08-29 08:39 | PRG ---
DATE OF SERVICE: 08/29/2018 SUBJECTIVE: The patient is doing better, Dr. Shipman at bedside. I did conference with Dr. Shipman. The patient will most likely be discharged tomorrow. plans for diuresis with 80 mg of Lasix today ; Atrovent will be discontinued by Pulmonary as pneumonia is resolved. PHYSICAL EXAMINATION: VITAL SIGNS: Stable, 92% on 3 liters. I's and O's 1800 of urine output. His voiding PVR documentations reviewed. His urethral void on average 200-400 mL. His postvoid residual via bladder scan has been variable, usually around 225. Due to my parameters of PVR of 365 on bladder scan, he did require 1 episode of catheterization this morning, PVR of 420 mL. ABDOMEN: Morbidly obese. GENITOURINARY EXAM: Demonstrates prepucial, scrotal edema consistent with fluid overload and anasarca; foreskin retracts easily. EXTREMITIES: Bilateral pitting edema is noted. PERINENT LABORATORY DATA: No new labs. Previous white count is 16, which has been stable. BUN 96, creatinine 4.07. His renal function is slowly improving, as his creatinine at its highest level has been 6.22. Urine culture negative. IMPRESSION AND PLAN: Mr. Mart is a 77-year-old male admitted for, 1. Community-acquired pneumonia, pneumothorax. 2. Acute kidney injury, renal failure. He was dialyzed intermittently. However, his renal function is slowly improving with observation. 3. Urologic consultation was obtained due to benign prostatic hyperplasia, urinary retention of postvoid residual of 600-700 mL. His De catheter was removed yesterday and had been initiating voiding trial with postvoid residual check. He is on Flomax b.i.d., Avodart, which I recommend the patient be discharged with current benign prostatic hyperplasia medications. His largest postvoid residual was 365, requiring catheterization. Recommend to continue bladder scan every 4 hours, double-time voiding. I do anticipate that he may require more catheterization, due to aggressive diuresis. Instructed nursing staff to teach clean intermittent catheterization technique. Informed regarding this matter. The patient does not desire to be discharged with indwelling De catheter, moreover [facility] bladder rehabilitation is preferable. appointment is in chart for followup next week with me. Dr. Fischer is covering me this weekend for prn issues. Patient may be discharged tomorrow if medically cleared. Instructions in chart for discharge for [facility] 4 times a day, follow-up with voiding diary. [facility]
--- NOTE | 2018-08-29 09:03 | PRG ---
DATE OF SERVICE: 08/29/2018 SUBJECTIVE: A 77-year-old gentleman being seen for acute kidney injury. The patient denies nausea, vomiting or chest pain. PHYSICAL EXAMINATION: GENERAL: The patient is alert and awake. VITAL SIGNS: Afebrile, pulse 60, breathing 16, blood pressure was 152/70. OBJECTIVE: See above. Awake, alert, in no acute distress. GENERAL APPEARANCE AND MENTAL STATUS: Fair. HEAD/NECK: Normocephalic. Atraumatic. EYES: EOMI. No deformity. EARS: Clear. No ulcers. NOSE: Intact. No lesions. MOUTH: Clear. No discharge. THROAT: Clear. No exudate. LUNGS: Clear. No crackles. CARDIAC: S1, S2. No rub. ABDOMEN: Benign. BS+. GENITALIA/RECTUM: De absent. BACK/EXTREMITIES: Edema 0+ Ulcer- NEUROLOGICAL: Alert and motor intact. SKIN: Rash- Bruise- LYMPHATICS: Edema- Ulcer- LABORATORY DATA: Show creatinine is 4. Hemoglobin 9.9. ASSESSMENT AND RECOMMENDATIONS: 1. Stage 5 chronic kidney disease, stable. 2. Acute kidney injury, improving, nonoliguric. 3. Hypertension, stable. 4. Metabolic acidosis, stable. 5. Edema, improving. 6. Uremia, improving. No indication for dialysis now.
--- NOTE | 2018-08-29 09:31 | PRG ---
DATE OF SERVICE: 08/29/2018 Bin Mart is still having issues with urinary retention. He had a straight cath that produced 40 0 mL urine this morning. PHYSICAL EXAMINATION: VITAL SIGNS: Heart rate 88, respiratory rate is 18, oximetry is 92 on 3 liters, he has oxygen at raman e. LUNGS: Lungs are clear. HEART: Regular rhythm. ABDOMEN: Abdomen is soft. EXTREMITIES: He has significant lower extremity edema. Intake and output positive 125 mL. His creatinine is down to 4. I think he will probably tolerate diuresis at this point, so Lasix was ordered. The Atrovent can be contributing to his urinary retention, so this has been discontinued. Hopefully, this will wear off and he will not have to go home with straight caths or a De. Hopefully he will diurese today as his legs are so big it is difficult for him to walk at this time. His pneumonia and COPD are stable.
[2018-08-29] MEDS: Dutasteride 0.5 MG CAP PO SCH (09:34)
--- NOTE | 2018-08-29 14:35 | PDOC.PN ---
- Subjective Encounter Start Date: 08/29/18 Encounter Start Time: 13:00 Mr. Mart was seen today in follow-up of Acute kidney failure, and recent pneumonia and Pneumothorax. He says he is beginning to feel better. He has less swelling in his extremities, He is undergoing in and out cath for now. - Objective Resuscitation Status: Resuscitation Status FULL:Full Resuscitation MAR Reviewed: Yes Vital Signs & Weight: Vital Signs (12 hours) Temp Pulse Resp BP Pulse Ox 08/29/18 08:00 97.2 F L 87 22 H 162/65 H 93 L 08/29/18 06:55 88 18 92 L 08/29/18 06:52 88 18 92 L 08/29/18 02:48 89 16 94 L Weight Admit Weight 216 lb Weight 238 lb I&O: 08/28/18 08/29/18 08/30/18 06:59 06:59 06:59 Intake Total 1600 1925 Output Total 1450 1800 1550 Balance 150 125 -1550 Result Diagrams: 08/27/18 04:10 08/29/18 03:32 Phys Exam - Physical Examination HEENT: PERRLA Respiratory: no rales, wheezing present, clear to auscultation bilateral + occasional wheeze, and rhonchi Cardiovascular: RRR, no significant murmur, no rub Gastrointestinal: soft, non-tender, no distention, positive bowel sounds Musculoskeletal: edema present 2-3+ pitting edema in both lower extremities, and both upper extremities Neurological: non-focal, moves all 4 limbs Dx/Plan (1) NNEKA (acute kidney injury) Code(s): N17.9 - ACUTE KIDNEY FAILURE, UNSPECIFIED Status: Acute Comment: creatinine improved to 5.27 today, likely due ATN. (2) HTN (hypertension) Code(s): I10 - ESSENTIAL (PRIMARY) HYPERTENSION Status: Chronic Comment: controlled (3) COPD (chronic obstructive pulmonary disease) Status: Chronic Comment: Continue Duonebs, Dulera, Prednisone (4) Obstructive uropathy Code(s): N13.9 - OBSTRUCTIVE AND REFLUX UROPATHY, UNSPECIFIED Status: Acute (5) Spontaneous pneumothorax Code(s): J93.83 - OTHER PNEUMOTHORAX Status: Resolved (6) Pneumonia Code(s): J18.9 - PNEUMONIA, UNSPECIFIED ORGANISM Status: Resolved Comment: Persistent on CXR. On cefepime. - Plan * Acute Kidney injury-slowly improving * Obstructive Uropathy- Urology managing- Atrovent has been discontinued, and he is being trained on self in and out catheterization. Continue Flomax, and Avodart * COPD- stable * HTN- blood pressure is a bit elevated- this may be volume dependent- will continue to observe, and reassess after he has been diuresed some * Pneumonia and Pneumothorax have resolved .
[2018-08-29] MEDS: Rosuvastatin 10 MG TAB PO SCH (20:36)
[2018-08-30 05:42] LABS: Anion Gap 13 mmol/L (10-20); BUN (Urea Nitrogen) 95 mg/dL (8.4-25.7); Calc. Creatinine Clearance 25 mL/min (70-130); Calcium 8.4 mg/dL (7.8-10.44); Carbon Dioxide 24 mmol/L (23-31); Chloride 105 mmol/L (98-107); Estimated GFR-MDRD 16; Glucose 89 mg/dL (83-110); Potassium 4.2 mmol/L (3.5-5.1); Sodium 138 mmol/L (136-145)
[2018-08-30] MEDS: Mometasone/Formoterol 120 PUFF INHALER INH SCH (07:00)
[2018-08-30 07:32] VITALS: BP 146/69
[2018-08-30] MEDS: Sucralfate 1 GM/10 ML UDCUP PO SCH ×2 (07:41→12:29)
[2018-08-30] MEDS: Amlodipine 10 MG TAB PO SCH (07:42)
[2018-08-30] MEDS: guaiFENesin ER 600 MG TAB PO SCH (07:42)
[2018-08-30] MEDS: Dutasteride 0.5 MG CAP PO SCH (07:42)
[2018-08-30] MEDS: Famotidine 20 MG TAB PO SCH (07:42)
[2018-08-30] MEDS: predniSONE 20 MG TAB PO SCH (07:42)
[2018-08-30] MEDS: Tamsulosin HCl 0.4 MG CAP PO SCH (07:42)
--- NOTE | 2018-08-30 11:24 | PRG ---
DATE OF SERVICE: 08/30/2018 SUBJECTIVE: A 77-year-old gentleman being seen for acute kidney injury. The patient denies any naus ea, vomiting or chest pain. PHYSICAL EXAMINATION: GENERAL: Patient is awake, alert. VITAL SIGNS: Afebrile, pulse 94, breathing 16, blood pressure 146/69. HEAD/NECK: Normocephalic. Atraumatic. EYES: EOMI. No deformity. EARS: Clear. No ulcers. NOSE: Intact. No lesions. MOUTH: Clear. No discharge. THROAT: Clear. No exudate. LUNGS: Clear. No crackles. CARDIAC: S1, S2. No rub. ABDOMEN: Benign. BS+. GENITALIA/RECTUM: De absent. BACK/EXTREMITIES: Edema 0+ Ulcer- NEUROLOGICAL: Alert and motor intact. SKIN: Rash- Bruise- LYMPHATICS: Edema- Ulcer- LABORATORY DATA: Show hemoglobin 9.9, creatinine 3.75. ASSESSMENT AND PLAN: 1. Acute kidney injury with chronic kidney disease stage 4, stable and improving, nonoliguric. 2. Hypertension, stable. 3. Anemia, stable. 4. Uremia, improving. No indication for dialysis. The patient is again to follow up to see me in 1 week and should have labs twice a week for a basic metabolic panel.
--- NOTE | 2018-08-30 13:38 | PDOC.PN ---
- Subjective Encounter Start Date: 08/30/18 Encounter Start Time: 13:36 Mr. Mart was seen today in follow-up of Pneumonia, and acute kidney injury. He says he feels fine,and is ready to go home. - Objective Resuscitation Status: Resuscitation Status FULL:Full Resuscitation MAR Reviewed: Yes Vital Signs & Weight: Vital Signs (12 hours) Pulse Resp BP Pulse Ox 08/30/18 07:49 94 L 08/30/18 07:32 81 20 146/69 H 94 L Weight Admit Weight 216 lb Weight 238 lb I&O: 08/29/18 08/30/18 08/31/18 06:59 06:59 06:59 Intake Total 1925 2124 Output Total 1800 3150 Balance 125 -1026 Result Diagrams: 08/27/18 04:10 08/30/18 05:05 Phys Exam - Physical Examination HEENT: PERRLA Respiratory: no wheezing, no rales, no rhonchi, clear to auscultation bilateral Cardiovascular: RRR, no significant murmur, no rub Gastrointestinal: soft, non-tender, no distention, positive bowel sounds Musculoskeletal: no edema Dx/Plan (1) NNEKA (acute kidney injury) Code(s): N17.9 - ACUTE KIDNEY FAILURE, UNSPECIFIED Status: Acute Comment: creatinine improved to 5.27 today, likely due ATN. (2) HTN (hypertension) Code(s): I10 - ESSENTIAL (PRIMARY) HYPERTENSION Status: Chronic Comment: controlled (3) COPD (chronic obstructive pulmonary disease) Status: Chronic Comment: Continue Duonebs, Dulera, Prednisone (4) Obstructive uropathy Code(s): N13.9 - OBSTRUCTIVE AND REFLUX UROPATHY, UNSPECIFIED Status: Acute (5) Spontaneous pneumothorax Code(s): J93.83 - OTHER PNEUMOTHORAX Status: Resolved (6) Pneumonia Code(s): J18.9 - PNEUMONIA, UNSPECIFIED ORGANISM Status: Resolved Comment: Persistent on CXR. On cefepime. - Plan * NNEKA- resolving * Pneumonia and Pneumothorax- resolved * Obstructive Uropathy- improved * Stable for discharge home..
--- NOTE | 2018-08-30 21:44 | DIS ---
DATE OF ADMISSION: 08/11/2018 DATE OF DISCHARGE: 08/30/2018 PRIMARY CARE PHYSICIAN: Dr. Mary. DISCHARGE DISPOSITION: Home. PRIMARY DISCHARGE DIAGNOSES: 1. Community-acquired pneumonia. 2. Spontaneous pneumothorax. 3. Acute respiratory failure secondary to #1 and #2. 4. Acute kidney injury due to acute tubular necrosis. 5. Obstructive uropathy. 6. Benign prostatic hypertrophy. 7. Hypertension. 8. Chronic respiratory failure due to chronic obstructive pulmonary disease on home oxygen. 9. Osteoarthritis. 10. Possible atrial fibrillation. 11. Obstructive sleep apnea. DISCHARGE MEDICATIONS: Include Flomax 0.4 mg twice daily, prednisone 10 mg daily, Dulera 200/5 mg tw o puffs twice a day, Avodart 0.5 mg daily, ProAir inhaler 2 puffs q.4 hours as needed, Ventolin nebs q.6 hours as needed, torsemide 20 mg daily, Crestor 10 mg at bedtime, potassium chloride 10 mEq daily , Toprol-XL 25 mg daily, Nexium 20 mg 2 tabs daily and amlodipine 10 mg daily. PROCEDURES DONE DURING ADMISSION: The patient had a chest tube placed and right pneumothorax cathete r was placed. The patient had a renal ultrasound. The kidneys showed mild increased cortical echoge nicity consistent with chronic medical kidney disease. The patient had a CT scan of the abdomen and pelvis showing no evidence of hydronephrosis. There was evidence of a pneumothorax with some chest w all emphysema. Patient had an echocardiogram in which the ejection fraction was estimated at 60%-65% . There was some E to A flow reversal noted suggestive of diastolic dysfunction. The left atrium wa s mildly dilated. The patient had a Trialysis catheter placed in the right femoral vein. CODE STATUS: FULL CODE. ALLERGIES: No known drug allergies. HOSPITAL COURSE: Mr. Mart is a 77-year-old gentleman who has a history of chronic respiratory failu re due to chronic obstructive pulmonary disease on home oxygen as well as hypertension and obstructiv e sleep apnea. He presented to the emergency room with shortness of breath and low grade fever. He was evaluated in the ER and found to be extremely hypoxic with O2 saturations in the 70% and 80%. He was placed on BiPAP, but eventually required mechanical intubation. He also developed a spontaneous pneumothorax on the right side. A pneumothorax catheter had to be placed. Also, during this hospit al stay, he developed severe ATN and acute renal failure. He required hemodialysis for several days during his hospital stay, but eventually his renal function did begin to return. He also developed s ome degree of obstructive uropathy in which he required in and out catheterization off and on. [facility] er, by the time of discharge, the obstructive uropathy was improving. Avodart as well as Flomax were added to his medical regimen and add Atrovent was discontinued to help with these symptoms of urinar y retention. Also, his creatinine had peaked above 6 and at the time of discharge, creatinine was 3. 75. He was seen by Pulmonology, Nephrology as well as Urology during his hospital stay and also Gene ral Surgery for the placement of the temporary catheters. The patient had been on anticoagulation pr ior to admission. This was due to a short episode of atrial fibrillation that was seen on a rhythm s trip during a sleep study. He says he has seen Dr. Gonzalez about this as well and had been placed on Coumadin for a while. He had been switched to Eliquis, but could not afford it, but then the discove red that the insurance did pay for this. He has not been on any anticoagulation during his hospital stay and I discussed with him that he will need to call Dr. Gonzalez's office on Saturday to schedule an appointment to discuss when to restart Eliquis or other anticoagulation. The patient was stable at t he time of discharge and we will need to have close followup with Dr. Mary hopefully within a week.
--- NOTE | 2018-09-01 08:05 | PRG ---
DATE OF SERVICE: 08/30/2018 SERVICE: Pulmonary Medicine. INTERVAL HISTORY: The patient is breathing very well today. He denies any current chest pain, fever s, chills, nausea or vomiting. Otherwise, there has been no interval change to his condition. His l ower extremity edema is still present. That being said, his kidney injury is slowly improving. Nurs ing reports no overnight events. He is going to be transitioned home today as was the plan previousl y. PHYSICAL EXAMINATION: VITAL SIGNS: Afebrile, pulse 81, blood pressure 146/69, respirations 20, saturation 94% on 3 liters nasal cannula. GENERAL: The patient is awake, alert, no apparent distress. LUNGS: Excellent air entry. There is not really prolonged expiratory phase. Crackles are present d ependently. Rhonchi are present, but clear with cough. No wheezing. HEART: Normal rate, regular. ABDOMEN: Soft, nontender, nondistended. Bowel sounds are positive. MUSCULOSKELETAL: No cyanosis or clubbing. There is diffuse 2-3+ pitting in the bilateral lower extr emities. NEUROLOGIC: Grossly nonfocal. LABORATORY DATA: Creatinine 3.75. Basic metabolic profile is unremarkable. All other serologies ar e unremarkable. ASSESSMENT: 1. Acute on chronic hypoxic respiratory failure. 2. Obstructive sleep apnea. 3. Community-acquired pneumonia, status post full course of therapy. 4. Spontaneous hemothorax, resolved. 5. Acute kidney injury secondary to acute tubular necrosis, improving. DISCUSSION AND PLAN: The patient is going to be transitioning home today as previously directed. If he remains inhouse, Pulmonary or Critical Care will continue to follow along. We will continue to g ently diurese him through time. He will need to follow up with Dr. Shipman in 3 weeks in the outpatien t setting with a repeat chest x-ray.
--- NOTE | 2018-09-02 10:40 | PQF ---
[employer] Collection Supervisor Crystal Reports Winform ViewerJUSTINO BESS, KARENA MERCADO MD [phone] [id number] CLINICAL DOCUMENTATION CLARIFICATION FORM: POST DISCHARGE Addendum to original discharge summary date: Please send to appropriate physician who discharged this patient, Late entry note date: __ Please exercise your independent, professional judgment in responding to the clarification form. Clinical indicators are provided on the bottom of this form for your review Please check appropriate box(s): HEART FAILURE: A. TYPE: [ ] Systolic / HFrEF [ ] Diastolic / HFpEF [ ] Combined Systolic / Diastolic B. ACUITY [ ] Acute [ ] Acute on Chronic [ ] Chronic [ ] Other diagnosis [ ] Unable to determine In addition, please specify: Present on Admission (POA): [ ] Yes [ ] No [ ] Unable to determine For continuity of documentation, please document condition throughout progress notes and discharge summary. Thank You. CLINICAL INDICATORS - SIGNS / SYMPTOMS / LABS CHF- PN 08/17, 08/18 EDEMA WITH FLUID OVERLOAD- PN 08/24 E TO A FLOW REVERSAL BOTED SUGGESTIVE OF DIASTOLIC DYSFUNCTION- DISCHARGE SUMMARY Ejection Fraction =___60-65___ %- DISCHARGE SUMMARY Dyspnea, Hypoxia Orthopnea / SOB / dyspnea pulmonary edema RISKS: CKD Hypertension TREATMENTS: Oxygen [employer] Supervisor [employer] Winform Viewer (This form is maintained as a part of the permanent medical record) 2014 [employer]. All Rights Reserved [email or web address] [phone] MTDD
--- NOTE | 2018-09-03 06:57 | PQF ---
[employer] Blank Handler Crystal Reports Winform ViewerJUSTINO BESS TONI MD [id number] [id number] CLINICAL DOCUMENTATION CLARIFICATION FORM: POST DISCHARGE Addendum to original discharge summary date: ____ Late entry note date: __ Please exercise your independent, professional judgment in responding to the clarification form. Clinical indicators are provided on the bottom of this form for your review Please check appropriate box(s): HEART FAILURE: A. TYPE: [ ] Systolic / HFrEF [ X ] Diastolic / HFpEF [ ] Combined Systolic / Diastolic B. ACUITY [ ] Acute [ X ] Acute on Chronic [ ] Chronic [ ] Other diagnosis [ ] Unable to determine In addition, please specify: Present on Admission (POA): [ X ] Yes [ ] No [ ] Unable to determine For continuity of documentation, please document condition throughout progress notes and discharge summary. Thank You. CLINICAL INDICATORS - SIGNS / SYMPTOMS / LABS CHF- PN 08/17, 08/18 EDEMA WITH FLUID OVERLOAD- PN 08/24 E TO A FLOW REVERSAL BOTED SUGGESTIVE OF DIASTOLIC DYSFUNCTION- DISCHARGE SUMMARY Ejection Fraction =_60-65 % Dyspnea, Hypoxia ORTHOPNEA/SOB/DYSPNEA pulmonary edema RISKS: CKD Hypertension TREATMENTS: Oxygen [employer] Blank Handler Crystal Reports Winform Viewer (This form is maintained as a part of the permanent medical record) 2014 [employer]. All Rights Reserved Kiki [email or web address] [phone] PARISH
== END 2018-08-30 15:01 | disposition home or self-care (01) | DRG 193 ==
LOC: ERS 11:45 → ERHOLD 13:59 → T4-A 17:13 → IMCU/EMU 17:29 → T4-A 08-12 19:29
PROVIDERS: ADMIT Internal Medicine; ATTEND Internal Medicine
PROC: 5A09357 Assistance with Respiratory Ventilation, Less than 24 Consecutive Hours, Continuous Positive Airway Pressure (ICD-10-PCS; 2018-08-11)
PROC: 0W9930Z Drainage of Right Pleural Cavity with Drainage Device, Percutaneous Approach (ICD-10-PCS; 2018-08-15)
PROC: 5A1D70Z Performance of Urinary Filtration, Intermittent, Less than 6 Hours Per Day (ICD-10-PCS; 2018-08-21)
PROC: 5A1D70Z Performance of Urinary Filtration, Intermittent, Less than 6 Hours Per Day (ICD-10-PCS; 2018-08-22)
PROC: 5A1D70Z Performance of Urinary Filtration, Intermittent, Less than 6 Hours Per Day (ICD-10-PCS; 2018-08-25)
PROC: 06HM33Z Insertion of Infusion Device into Right Femoral Vein, Percutaneous Approach (ICD-10-PCS; principal; 2018-08-29)
DX: J18.9 Pneumonia, unspecified organism (principal); J96.21 Acute and chronic respiratory failure with hypoxia; N17.0 Acute kidney failure with tubular necrosis; I50.33 Acute on chronic diastolic (congestive) heart failure; J44.1 Chronic obstructive pulmonary disease with (acute) exacerbation; J93.83 Other pneumothorax; E87.1 Hypo-osmolality and hyponatremia; E87.2 Acidosis; I13.0 Hypertensive heart and chronic kidney disease with heart failure and stage 1 through stage 4 chronic kidney disease, or unspecified chronic kidney disease; E66.9 Obesity, unspecified; Z68.35 Body mass index [BMI] 35.0-35.9, adult; E88.81 Metabolic syndrome and other insulin resistance; K21.9 Gastro-esophageal reflux disease without esophagitis; M19.90 Unspecified osteoarthritis, unspecified site; Z99.81 Dependence on supplemental oxygen; E78.5 Hyperlipidemia, unspecified; F41.9 Anxiety disorder, unspecified; F32.9 Major depressive disorder, single episode, unspecified; B95.3 Streptococcus pneumoniae as the cause of diseases classified elsewhere; G47.33 Obstructive sleep apnea (adult) (pediatric); R14.0 Abdominal distension (gaseous); R39.11 Hesitancy of micturition; T81.82XA Emphysema (subcutaneous) resulting from a procedure, initial encounter; I48.91 Unspecified atrial fibrillation; K59.00 Constipation, unspecified; N13.9 Obstructive and reflux uropathy, unspecified; D64.9 Anemia, unspecified; N40.1 Benign prostatic hyperplasia with lower urinary tract symptoms; N18.3 Chronic kidney disease, stage 3 (moderate); E87.5 Hyperkalemia; Z87.891 Personal history of nicotine dependence
CPT/HCPCS: 36415; 36416; 71045; 71046; 74018; 74176; 76770; 80048; 80053; 81001; 81003; 81015; 82550; 82553; 82570; 82805; 83516; 83520; 83605; 83880; 84153; 84156; 84484; 85025; 85610; 85730; 86038; 86225; 86256; 86704; 86706; 86803; 87040; 87086; 87149; 87340; 89190; 90935; 93005; 93010; 93306; 94640; 94660; 94664; 94760; 96365; 96367; 96375; 99211; G0257; G0463; G8978-GP-CJ; G8978-GP-CL; G8979-GP-CI; G8979-GP-CJ; J0456; J0692; J0696; J1642; J1644; J1650; J1940; J1956; J2001; J2405; J2920; J2930; J3475; J7050; J7506; J7620; S0028

== ENCOUNTER 2018-09-20 12:59 | Observation (INO) | payer BC, MEDICARE ==
[2018-09-20 13:57] LABS: #Eosinphils 0.1 thou/uL (0.0-0.7); #Lymphocytes 0.8 thou/uL (1.20-3.40); #Monocytes 0.6 thou/uL (0.11-0.59); #Neutrophils 13.5 thou/uL (1.40-6.50); %Basophils 0.3 % (0.0-1.0); %Eosinophils 0.5 % (0.0-10.0); %Lymphocytes 5.3 % (21.0-51.0); %Monocytes 3.9 % (0.0-10.0); %Neutrophils 90.1 % (42.0-75.0); Hemoglobin 11.1 g/dL (14.0-18.0); Mean Corpuscular HGB CONC 32.9 g/dL (32.0-36.0); Mean Corpuscular Hemoglobin 28.8 pg (27.0-31.0); Mean Corpuscular Volume 87.5 fL (78.0-98.0); Mean Platelet Volume 7.5 fL (7.4-10.4); Platelet Count 459 thou/uL (130-400); RBC Distribution Width 16.2 % (11.5-14.5); Red Blood Cell (RBC) Count 3.85 mill/uL (4.70-6.10)
[2018-09-20 14:04] LABS: INR-International Normal Ratio 1.2; PTT 28.3 SEC (22.9-36.1); Prothrombin Time 14.8 SEC (12.0-14.7)
[2018-09-20 14:11] LABS: ALT (SGPT) 43 U/L (8-55); AST (SGOT) 18 U/L (5-34); Albumin 3.7 g/dL (3.4-4.8); Alkaline Phosphatase 66 U/L (40-150); Anion Gap 18 mmol/L (10-20); BUN (Urea Nitrogen) 44 mg/dL (8.4-25.7); Bilirubin, Total 0.4 mg/dL (0.2-1.2); Calc. Creatinine Clearance 0 mL/min (70-130); Calcium 8.7 mg/dL (7.8-10.44); Carbon Dioxide 26 mmol/L (23-31); Chloride 100 mmol/L (98-107); Estimated GFR-MDRD 25; Globulin 2.5 g/dL (2.4-3.5); Glucose 114 mg/dL (83-110); Potassium 3.9 mmol/L (3.5-5.1); Protein, Total 6.2 g/dL (5.8-8.1); Sodium 140 mmol/L (136-145)
--- NOTE | 2018-09-20 14:14 | RAD ---
RADIOGRAPH CHEST 1 VIEW: HISTORY: 77-year-old male with chest pain. FINDINGS: There are no air space densities, pulmonary edema, pneumothorax, or cardiomegaly. The lateral costop hrenic angles are sharp. IMPRESSION: No acute cardiopulmonary findings. mauro [] POS: CAITLIN
--- NOTE | 2018-09-20 14:15 | CT ---
CT BRAIN WITHOUT CONTRAST: Date: 09/20/18 INDICATION: Left leg weakness and numbness. COMPARISON: Prior CT of brain dated 03/06/17. FINDINGS: No acute infarct, hemorrhage, or hydrocephalus is present. Mild chronic small vessel white matter isc hemic change is stable. Skull and extracranial soft tissues are unremarkable. IMPRESSION: No acute intracranial abnormality. POS: CAITLIN
[2018-09-20 14:16] LABS: CKMB 1.2 ng/mL (0-6.6); Troponin I Less than 0.010 ng/mL (< 0.028)
[2018-09-20] MEDS ORDERED: Aspirin 325 MG TAB ONE (15:25)
[2018-09-20] MEDS ORDERED: Acetaminophen 650 MG Suppository PR PRN (16:13)
[2018-09-20] MEDS ORDERED: HYDROcodone/Acetaminophen 5/325 mg Tablet PO PRN (16:13)
[2018-09-20] MEDS ORDERED: Albuterol Sulfate 2.5 mg/3 ml Neb IPPB PRN (16:13)
[2018-09-20] MEDS ORDERED: Acetaminophen 325 MG TAB PO PRN (16:13)
[2018-09-20] MEDS ORDERED: Potassium Chloride 10 MEQ TAB PO SCH (16:45)
--- NOTE | 2018-09-20 16:47 | RAD ---
TWO VIEWS OF THE LEFT HIP: 09/20/18 COMPARISON: None. HISTORY: Left leg numbness and weakness. Hip pain. FINDINGS: Two views of the left hip shows no evidence of acute fracture or dislocation. No degenerative changes are seen. IMPRESSION: Unremarkable exam. POS: CAITLIN
[2018-09-20 17:04] LABS: CKMB 1.1 ng/mL (0-6.6); Troponin I Less than 0.010 ng/mL (< 0.028)
[2018-09-20 18:52] VITALS: BMI 32.1
[2018-09-20] MEDS: Rosuvastatin 10 MG TAB PO SCH (20:58)
[2018-09-20] MEDS: Heparin 5,000 UNITS/ML VIAL SC SCH (20:58)
[2018-09-20] MEDS: Mometasone/Formoterol 120 PUFF INHALER INH SCH (23:42)
[2018-09-21 01:34] LABS: CKMB 0.7 ng/mL (0-6.6); Troponin I Less than 0.010 ng/mL (< 0.028)
[2018-09-21 05:00] LABS: #Eosinphils 0.1 thou/uL (0.0-0.7); #Lymphocytes 1.5 thou/uL (1.20-3.40); #Neutrophils 10.6 thou/uL (1.40-6.50); %Basophils 0.3 % (0.0-1.0); %Eosinophils 0.7 % (0.0-10.0); %Lymphocytes 11.1 % (21.0-51.0); %Monocytes 7.3 % (0.0-10.0); %Neutrophils 80.5 % (42.0-75.0); Hemoglobin 9.9 g/dL (14.0-18.0); Mean Corpuscular HGB CONC 32.7 g/dL (32.0-36.0); Mean Corpuscular Hemoglobin 28.4 pg (27.0-31.0); Mean Corpuscular Volume 86.9 fL (78.0-98.0); Mean Platelet Volume 7.6 fL (7.4-10.4); Platelet Count 381 thou/uL (130-400); Red Blood Cell (RBC) Count 3.47 mill/uL (4.70-6.10); White Blood Cell (WBC) Count 13.1 thou/uL (4.8-10.8)
[2018-09-21 05:15] LABS: Anion Gap 12 mmol/L (10-20); BUN (Urea Nitrogen) 52 mg/dL (8.4-25.7); Calc. Creatinine Clearance 33 mL/min (70-130); Calcium 8.3 mg/dL (7.8-10.44); Carbon Dioxide 28 mmol/L (23-31); Cardiac Risk 4.2 (Less than 4.5); Chloride 105 mmol/L (98-107); Cholesterol 142 mg/dl (< 200 Desired); Estimated GFR-MDRD 24; Glucose 103 mg/dL (83-110); HDL Cholesterol 34 mg/dL (>60 Neg Risk); LDL Cholesterol, Calculated 89 mg/dL; Magnesium 1.8 mg/dL (1.6-2.6); Potassium 3.2 mmol/L (3.5-5.1); Sodium 142 mmol/L (136-145); Triglycerides 95 mg/dL (Less than 150)
[2018-09-21] MEDS: Mometasone/Formoterol 120 PUFF INHALER INH SCH ×2 (08:05→19:14)
[2018-09-21] MEDS: Heparin 5,000 UNITS/ML VIAL SC SCH (09:18)
[2018-09-21] MEDS: Dutasteride 0.5 MG CAP PO SCH (09:19)
[2018-09-21] MEDS: Amlodipine 10 MG TAB PO SCH (09:19)
[2018-09-21] MEDS: Potassium Chloride 10 MEQ TAB PO SCH (09:20)
--- NOTE | 2018-09-21 11:25 | MRI ---
MRI LUMBAR SPINE NONCONTRAST: DATE: 09/21/2018 HISTORY: A 77-year-old male with chronic low back pain and left lumbar radiculopathy (sciatica) with left lowe r extremity weakness and paresthesia. COMPARISON: None available. FINDINGS: There are five lumbar type vertebrae. Vertebral body heights are maintained. No major spondylolisth esis. No major bone marrow signal abnormality. Incidentally, the urinary bladder is very distended. No major pathology of the perivertebral spaces. Lumbar spinal canal is diffusely small in caliber, on a congenital basis, due to developmentally shor t pedicles. This is exacerbated by spondylosis, as described below. The conus medullaris terminates at L1-L2. The T12-L1, L1-L2, and L5-S1 disk spaces are maintained. There is mild disk space narrow ing at L2-L3, L3-L4, and L4-L5. Degenerative facet changes are mild at L2-L3, moderate at L3-L4, and moderate at L4-L5 and at L5-S1. There are diffuse disk bulges at every level, with the relative exc eption of T12-L1. Findings regarding central spinal canal stenosis and neural foraminal stenosis are as follows: T12-L1: No additional findings. L1-L2: Mild central and mild bilateral neural foraminal stenosis. L2-L3: Moderate central stenosis. Mild to moderate right neural foraminal stenosis. Moderate to se cisco left neural foraminal stenosis. L3-L4: Moderate central stenosis. Moderate bilateral neural foraminal stenosis. L4-L5: Moderate to severe central spinal canal stenosis. Moderate bilateral neural foraminal stenos is, right greater than left. L5-S1: No high grade central stenosis. Moderate right neural foraminal stenosis. Mild left neural foraminal stenosis. IMPRESSION: 1. Developmentally small caliber spinal canal, exacerbated by lumbar spondylosis, consisting of mult ilevel mild and moderate degenerative disk disease, and mild and moderate facet osteoarthrosis. 2. Multilevel central spinal canal stenosis, worst at L4-L5 (moderate to severe). 3. Multilevel moderate neural foraminal stenosis. KYLE Garcia POS: CAITLIN
[2018-09-21] MEDS ORDERED: PROVENTIL INHALER 6.7 G (200 INHALATIONS) INH PRN (12:03)
[2018-09-21] MEDS: Furosemide 20 MG TAB PO SCH (20:40)
[2018-09-21] MEDS: Cipro 250 MG TAB PO SCH (20:40)
[2018-09-21] MEDS: Rosuvastatin 10 MG TAB PO SCH (20:40)
[2018-09-21] MEDS: Tamsulosin HCl 0.4 MG CAP PO SCH (20:40)
[2018-09-22] MEDS: Mometasone/Formoterol 120 PUFF INHALER INH SCH (06:40)
--- NOTE | 2018-09-22 07:50 | PRG ---
DATE OF SERVICE: 09/21/2018 SUBJECTIVE: The patient was seen and examined at the bedside. He is feeling significantly better. He is able to ambulate to the bathroom without any left leg problem. He has some back pain started this morning. OBJECTIVE: VITAL SIGNS: Blood pressure is 142/87, pulse is 79, respiratory rate is 14, O2 saturation is 90%, and temperature is 98.0. HEENT: His head is atraumatic and normocephalic. Eyes are PERRLA. Sclerae are nonicteric. Oral mucosa is moist. NECK: Supple. No lymphadenopathy. Thyroid is not palpable. LUNGS: Clear. HEART: S1. Somewhat irregularly irregular. No S3. No S4. ABDOMEN: Soft, obese, and nontender. EXTREMITIES: 2+ peripheral edema, similar bilaterally. NEUROLOGIC: He is alert and oriented x4. There are no any motor or sensory deficits. Cranial nerves are intact. LABORATORY DATA: Showed white count of 13.1, hemoglobin 9.9, hematocrit 30.2, and platelet count is 381,000. Chemistries; sodium 142, potassium 3.2, chloride 105, CO2 of 28, BUN 52, creatinine 2.58. Three sets of cardiac enzymes within normal limits regarding troponin and CK-MB. Triglycerides 95, total cholesterol 142, LDL 89, HDL 34. Lumbar spine MRI showed, 1. Spinal canal of small caliber, exacerbated by lumbar spondylosis consisting of multilevel utnm-ra-rryeytof degenerative disk disease and deqo-vk-ajtyjjtt facet osteoarthrosis. 2. Multilevel central spinal canal stenosis, worst at L4-L5, tdmkggbt-ta-zrwyfv, and multilevel moderate neuroforaminal stenosis. IMPRESSION: 1. Left lower extremity weakness, most likely related to L4-L5 spinal stenosis. I do not believe this was transient ischemic attack. His lumbar spine MRI shows significant problem at this level. We will have PT and OT working with him. 2. Recurrent atrial fibrillation with a controlled ventricular rate. We will start him on apixaban, his anticoagulant he used to take at home, but he stopped recently since he had some urethral blood and he was advised to stop it. We will have metallurgical inspector, Dr. Gonzalez to see him tomorrow and make decision about the next step to control his problem. 3. Chronic kidney disease. 4. Hypertension. 5. Chronic obstructive pulmonary disease. 6. History of recent pneumonia and collapsed lung, and related to those 2, acute respiratory failure. 7. Obstructive uropathy. The patient is taking [address] medications [address] from Dr[address] Olmedo. 8. Benign prostatic hypertrophy. 9. Osteoarthritis. 10. Obstructive sleep apnea. Job ID: [id number]
[2018-09-22] MEDS: Furosemide 20 MG TAB PO SCH (08:20)
[2018-09-22] MEDS: Tamsulosin HCl 0.4 MG CAP PO SCH (08:21)
[2018-09-22] MEDS: Dutasteride 0.5 MG CAP PO SCH (08:21)
[2018-09-22] MEDS: Amlodipine 10 MG TAB PO SCH (08:21)
[2018-09-22] MEDS: Potassium Chloride 10 MEQ TAB PO SCH (08:21)
[2018-09-22] MEDS: Cipro 250 MG TAB PO SCH (08:22)
[2018-09-22] MEDS ORDERED: predniSONE 20 MG TAB PO SCH (09:00)
[2018-09-22] MEDS ORDERED: Potassium Chloride 20 MEQ TAB PO SCH (09:00)
[2018-09-22] MEDS ORDERED: Non-Formulary Item 1 EACH (Potassium Chloride [Potassium Chloride] 1 TAB) PO SCH (09:00)
[2018-09-22] MEDS ORDERED: Apixaban 5 MG TAB PO SCH (09:00)
--- NOTE | 2018-09-22 11:26 | PDOC.PN ---
- Subjective Encounter Start Date: 09/22/18 Encounter Start Time: 11:24 Mr. Mart was seen today in follow-up of Lumbar spinal stenosis. He does not have any complaints this morning. He has walked with PT in the halls. His leg is feeling much better. - Objective Resuscitation Status - Order Detail: 09/20/18 15:50 Resuscitation Status Routine Resuscitation Status: FULL: Full Resuscitation MAR Reviewed: Yes Vital Signs & Weight: Vital Signs (12 hours) Temp Pulse Pulse Pulse Resp BP BP 09/22/18 08:52 86 84 141/77 H 09/22/18 08:21 85 151/83 H 09/22/18 08:00 97.7 F 85 16 09/22/18 06:40 87 16 09/22/18 03:17 97.8 F 77 18 09/22/18 00:34 BP BP Pulse Ox Pulse Ox Pulse Ox 09/22/18 08:52 152/85 H 92 L 92 L 09/22/18 08:21 09/22/18 08:00 151/83 H 93 L 09/22/18 06:40 92 L 09/22/18 03:17 146/91 H 93 L 09/22/18 00:34 92 L Weight Weight 218 lb I&O: 09/21/18 09/22/18 09/23/18 06:59 06:59 06:59 Intake Total 350 1240 240 Output Total 775 Balance 350 465 240 Result Diagrams: 09/21/18 04:28 09/21/18 04:28 Phys Exam - Physical Examination HEENT: PERRLA Respiratory: no wheezing, no rales, no rhonchi, clear to auscultation bilateral Cardiovascular: RRR, no significant murmur, no rub Gastrointestinal: soft, non-tender, no distention, positive bowel sounds Musculoskeletal: edema present trace pedal edema in both lower extremities, no warmth Neurological: non-focal, moves all 4 limbs Dx/Plan (1) Lumbar spinal stenosis Code(s): M48.061 - SPINAL STENOSIS, LUMBAR REGION WITHOUT NEUROGENIC FLACO Status: Acute (2) Atrial fibrillation Code(s): I48.91 - UNSPECIFIED ATRIAL FIBRILLATION Status: Chronic Comment: Intermittent. Has been in sinus. Historically only had it when having BRAD. Therapeutic on INR and rate is appropriate to the clinical scenario. (3) COPD (chronic obstructive pulmonary disease) Status: Chronic Comment: Continue Duonebs, Dulera, Prednisone (4) HTN (hypertension) Code(s): I10 - ESSENTIAL (PRIMARY) HYPERTENSION Status: Chronic Comment: controlled (5) BRAD (obstructive sleep apnea) Code(s): G47.33 - OBSTRUCTIVE SLEEP APNEA (ADULT) (PEDIATRIC) Status: Chronic Comment: on CPAP while asleep - Plan * Lumbar spinal Stenosis- improved- He has been ambulating- and plans to go home with home Health * AFIB- his heart rate is stable- Eliquis has been re-started- stable for discharge home.
[2018-09-22 11:43] VITALS: TEMP 97.6
--- NOTE | 2018-09-22 13:37 | DIS ---
DATE OF ADMISSION: 09/20/2018 DATE OF DISCHARGE: 09/22/2018 PRIMARY CARE PHYSICIAN: Gabriel Mary MD DISCHARGE DISPOSITION: Home with home health. DISCHARGE DIAGNOSES: 1. Lumbar spinal stenosis at L4-L5. 2. Chronic atrial fibrillation. 3. Chronic kidney disease stage 3. 4. Hypertension. 5. Chronic obstructive pulmonary disease. DISCHARGE MEDICATIONS: Include; 1. Eliquis 5 mg daily. 2. Amlodipine 10 mg daily. 3. Cipro 250 mg twice a day. 4. Dutasteride 0.5 mg daily. 5. Nexium 20 mg 2 tablets a day. 6. Furosemide 20 mg 2 tablets twice a day. 7. Metoprolol XL 25 mg daily. 8. Potassium chloride 20 mEq a day. 9. Prednisone 20 mg daily. 10. Crestor 10 mg daily. 11. Albuterol inhaler 2 puffs q.4 hours as needed. 12. Flomax 0.4 mg twice a day. PROCEDURES: Procedures done during the admission, the patient had a CT scan of the brain, in which there was no evidence of any acute intracranial abnormality. The patient had an MRI of the lumbar spine and it demonstrated disk space narrowing at L2-L3, L3-L4, L4-L5, and there was moderate DJD at L4-L5 and L5-S1 with fmwoibik-ek-lmnybu spinal canal stenosis at L4-L5. CODE STATUS: Full code. ALLERGIES: NO KNOWN DRUG ALLERGIES. HOSPITAL COURSE: Mr. Mart is a pleasant 77-year-old gentleman, who presented to the emergency room after having weakness and numbness in his left leg. He thought he may be having a stroke. He was admitted and CT scan was done, which was negative for acute intracranial process. His symptoms were more consistent with a lumbar spinal stenosis, and then MRI of the lumbar spine was obtained. He was found to have a nohgpmez-nu-mdqdyj spinal canal stenosis at L4 and L5. He began to regain his strength with physical therapy after the course of the next couple of days, and at the time of discharge, he was feeling much better and is actually anticipating going home. He will therefore be discharged home with home health and home physical therapy on 09/22/2018. Job ID: [id number]
--- NOTE | 2018-09-22 21:20 | EKG ---
Test Reason : Blood Pressure : / mmHG Vent. Rate : 075 BPM Atrial Rate : 071 BPM P-R Int : 000 ms QRS Dur : 086 ms QT Int : 402 ms P-R-T Axes : 000 015 025 degrees QTc Int : 448 ms Atrial fibrillation with a competing junctional pacemaker Abnormal ECG When compared with ECG of 13-AUG-2018 16:57, (Unconfirmed) Atrial fibrillation has replaced Sinus rhythm Criteria for Inferior infarct are no longer Present Confirmed by AAKASH GENAO, SSelvin ([id number]) on 09/22/2018 9:19:54 PM Referred By: Confirmed By:DR. Mulu FINN MD
[2018-09-23 07:24] VITALS: BP 141/77
== END 2018-09-22 13:01 | disposition home or self-care (01) ==
LOC: ERS 12:59 → ERHOLD 15:46 → 2SE 18:39
PROVIDERS: ADMIT Internal Medicine; ATTEND Internal Medicine
DX: M48.061 Spinal stenosis, lumbar region without neurogenic claudication (principal); I48.2 Chronic atrial fibrillation; I12.9 Hypertensive chronic kidney disease with stage 1 through stage 4 chronic kidney disease, or unspecified chronic kidney disease; N18.3 Chronic kidney disease, stage 3 (moderate); J44.9 Chronic obstructive pulmonary disease, unspecified; N13.9 Obstructive and reflux uropathy, unspecified; N40.0 Benign prostatic hyperplasia without lower urinary tract symptoms; M19.90 Unspecified osteoarthritis, unspecified site; G47.33 Obstructive sleep apnea (adult) (pediatric); Z87.01 Personal history of pneumonia (recurrent); Z79.01 Long term (current) use of anticoagulants; Z79.2 Long term (current) use of antibiotics; Z79.52 Long term (current) use of systemic steroids; Z79.899 Other long term (current) drug therapy
CPT/HCPCS: 36415; 70450; 71045; 72148; 80048; 80053; 80061; 82553; 83735; 84484; 85025; 85610; 85730; 93005; 93010; 94664; G0378; G8978-GP-CK; G8979-GP-CI; G8987-GO-CI; G8988-GO-CI; G8989-GO-CI; G9162-GN-CH; G9163-GN-CH; G9164-GN-CH; J1644; J7506

== ENCOUNTER 2018-09-25 09:46 | Outpatient (CLI) | payer MEDICARE, BC ==
--- NOTE | 2018-09-25 10:13 | RAD ---
CHEST TWO VIEWS: History: Dyspnea. Comparison: 09-20-18 FINDINGS: Cardiac silhouette and pulmonary vasculature are unremarkable. Mediastinum is midline with aortic radha cification. Lungs remain hyperinflated with scattered areas of linear scarring. No confluent airspace consolidation, pneumothorax, or pleural fluid. IMPRESSION: 1. Pulmonary hyperinflation and other findings are stable. 2. Atherosclerosis. POS: TPC
== END 2018-09-25 09:47 | disposition home or self-care (01) ==
LOC: RAD 09:46
PROVIDERS: ATTEND Internal Medicine Critical Care Medicine
DX: R06.00 Dyspnea, unspecified (principal); I70.0 Atherosclerosis of aorta; R91.8 Other nonspecific abnormal finding of lung field; J98.4 Other disorders of lung
CPT/HCPCS: 71046

== ENCOUNTER 2018-10-15 12:22 | Inpatient (IN) | payer MEDICARE, BC ==
[2018-10-15 13:01] LABS: #Eosinphils 0.1 thou/uL (0.0-0.7); #Lymphocytes 0.5 thou/uL (1.20-3.40); #Neutrophils 14.3 thou/uL (1.40-6.50); %Eosinophils 0.5 % (0.0-10.0); %Lymphocytes 3.2 % (21.0-51.0); %Monocytes 6.1 % (0.0-10.0); %Neutrophils 90.2 % (42.0-75.0); Hemoglobin 11.1 g/dL (14.0-18.0); Mean Corpuscular HGB CONC 32.5 g/dL (32.0-36.0); Mean Corpuscular Hemoglobin 28.2 pg (27.0-31.0); Mean Corpuscular Volume 86.6 fL (78.0-98.0); Mean Platelet Volume 8.6 fL (7.4-10.4); Platelet Count 241 thou/uL (130-400); RBC Distribution Width 16.5 % (11.5-14.5); Red Blood Cell (RBC) Count 3.95 mill/uL (4.70-6.10); White Blood Cell (WBC) Count 15.9 thou/uL (4.8-10.8)
[2018-10-15] MEDS ORDERED: Furosemide 40 MG/4 ML VIAL ONE ×2 (13:10→13:18)
[2018-10-15] MEDS ORDERED: Diltiazem 125 MG/25 ML ONE (13:10)
[2018-10-15] MEDS ORDERED: methylPREDNISolone Sod Succ/PF 125 MG/2 ML VIAL ONE (13:10)
[2018-10-15] MEDS ORDERED: Magnesium 2 GM/50 ML BAG (IN WATER) ONE (13:10)
[2018-10-15] MEDS ORDERED: Water For Inject, Bacteriostat 30 ML ONE (13:14)
[2018-10-15 13:23] LABS: ALT (SGPT) 51 U/L (8-55); AST (SGOT) 15 U/L (5-34); Albumin 3.5 g/dL (3.4-4.8); Alkaline Phosphatase 71 U/L (40-150); Anion Gap 14 mmol/L (10-20); BUN (Urea Nitrogen) 26 mg/dL (8.4-25.7); Bilirubin, Total 1.1 mg/dL (0.2-1.2); Calc. Creatinine Clearance 0 mL/min (70-130); Calcium 8.7 mg/dL (7.8-10.44); Carbon Dioxide 19 mmol/L (23-31); Chloride 108 mmol/L (98-107); Estimated GFR-MDRD 46; Globulin 2.4 g/dL (2.4-3.5); Glucose 116 mg/dL (83-110); Potassium 4.2 mmol/L (3.5-5.1); Protein, Total 5.9 g/dL (5.8-8.1); Sodium 137 mmol/L (136-145)
[2018-10-15 14:00] LABS: Actual Bicarbonate (HCO3a) 20.1 mEq/L (22-28); Analyzer IN Cardio ER; CO2 Tension 26.8 mmHg (35.0-45.0); Calcium, Ionized 1.11 mmol/L (1.12-1.30); Carboxyhemoglobin (COHb) 1.1 gm% (0.0-3.0); Hemoglobin (Hb) 11.8 g/dL (14.0-18.0); Potassium - ABG Lab 4.14 mmol/L (3.70-5.30); pH, Arterial 7.49 (7.35-7.45)
--- NOTE | 2018-10-15 14:01 | RAD ---
FRONTAL VIEW CHEST: Date: 10/15/18 COMPARISON: 09/25/18. INDICATION: Dyspnea. FINDINGS: Lungs are hyperinflated. There is interstitial prominence of each lung. Cardiac silhouette and pulmon kieran vasculature are prominent. Mild bilateral pleural effusions present. IMPRESSION: Findings indicating decompensated CHF. Recommend continued follow-up. POS: CAITLIN
[2018-10-15 14:02] LABS: O2 Tension (PaO2) 42.3 mmHg (> 70.0); Puncture Site RRA
[2018-10-15] MEDS ORDERED: Acetaminophen 325 MG TAB PO PRN (15:07)
[2018-10-15] MEDS ORDERED: Metoprolol Tartrate 25 MG TAB PO SCH (15:15)
[2018-10-15 17:39] VITALS: BMI 31.9
--- NOTE | 2018-10-15 21:26 | HP ---
CHIEF COMPLAINT: Shortness of breath. HISTORY OF PRESENT ILLNESS: The patient is a very pleasant 77-year-old male with past medical history of COPD and who is on oxygen at 2-3 L at home as needed, especially at nighttime, also has a history of sleep apnea, wears a CPAP. Has a history of paroxysmal atrial fibrillation, who presented to the hospital with complaints of shortness of breath for the past four days. The patient stated that he has been very compliant with his diet and has been not drinking too much water since he has been getting very short of breath on minimal exertion. The patient states that normally he is able to walk, get up and walk to the bathroom and around his home, however, for the past four days, he is unable to do so. The patient states that normally he uses oxygen only at night, however, for the past few days he has been using oxygen on a regular basis, including during the daytime. He denies any fevers or chills. Denies any cough or increased sputum production. The patient currently is on a steroid taper, which has been started since July and continues to be weaned off, currently he is on 2.5 mg of prednisone. The patient furthermore states that he actually ran out of his medications and has not taken his diuretics for the past several days. Denies any significant weight gain, however, feels that he does have significant worsening lower extremity edema. He is positive for orthopnea and PND. The patient states that he was supposed to get back surgery and at this time he was taking off Eliquis before he gets the clearance, however, the patient currently does not have any plans of having any back surgery any time soon. The patient states that he has not been taking his Eliquis at home either. PAST MEDICAL HISTORY: As of the following; 1. Has a history of COPD, currently is controlled. 2. Has a history of hypertension. 3. Has a history of paroxysmal atrial fibrillation. 4. Has a history of sleep apnea. 5. Has a history of osteoarthritis. 6. Has a history of pneumothorax. PAST SURGICAL HISTORY: He has had a left knee surgery. He has had cyst removal x2. He has had EGD, colonoscopy, and also had a pulpectomy. He also had a placement of temporary dialysis catheter for intermittent dialysis requiring a chest tube placement. SOCIAL HISTORY: He is , lives with his family. He drinks beer every day. Denies any smoking history, who is a former smoker. He is a full code and lives at home with his . FAMILY HISTORY: No family history of premature coronary artery disease, strokes, or cancers. ALLERGIES: NO KNOWN DRUG ALLERGIES. HOME MEDICATIONS: 1. Toprol-XL 25 mg daily. 2. Amlodipine 100 mg daily. 3. Crestor 10 mg daily. 4. Nexium 20 mg daily. 5. Mobic 15 mg daily. 6. He takes Eliquis 5 mg b.i.d. In the ER, the patient was found to be hypoxic, was given neb treatments and also Lasix 80 mg. PHYSICAL EXAMINATION: VITAL SIGNS: Are as of the following; temperature of 98.1, saturations are 94 when I had him on BiPAP, respirations 16, blood pressure 155/74, pulse is 100. GENERAL: He is awake, alert, and oriented x3. Does not appear in any distress. CV: S1, S2 present. Irregularly irregular. LUNGS: Have mild crackles to bilateral lower bases and mild wheeze to the right lower base. ABDOMEN: Soft and nontender. Bowel sounds are present x2. EXTREMITIES: +1 lower extremity edema. NEUROVASCULAR: No focal deficits noted. SKIN: No cuts, lesions or bruises noted. HEENT: Normocephalic, atraumatic. No lymphadenopathy noted. LABORATORY RESULTS: WBC of 15.9, hemoglobin of 11.1, hematocrit of 34.2, platelets of 241. Chemistry; sodium of 137 potassium of 4.2, BUN of 26, creatinine of 1.49. His BNP was 310. The patient did have a chest x-ray which indicated mild cephalization, mild pulmonary edema noted. ASSESSMENT AND PLAN: The patient is a very pleasant 77-year-old male, who comes into the hospital with complaints of shortness of breath. 1. Acute on chronic diastolic heart failure, this could be secondary to the patient going into atrial fibrillation with mild rapid ventricular response rate in the one teens. He was given Cardizem 20 mg IV in the ER and currently he is between 89-100. We will start the patient back on his metoprolol. Also, he has been off the Eliquis, we will restart his Eliquis. Also, we will start the patient on IV diuretics since he has been off his diuretics for quite some time. States that there was a prescription error and he was unable to refill any of his medications back. Also, he has had a recent echocardiogram in July of 2018, which indicated an EF of 60% to 65%. The left atrium was mildly dilated. The patient stated that he has been seen by Cardiology and had undergone a stress test and everything appeared to be okay in terms of cardiac bolton. I do not believe he has only mild wheezing on to his right lower lung base. He has no cough, no sputum production. I do not think this is a chronic obstructive pulmonary disease exacerbation. I will continue his prednisone that he takes 2.5 mg at home. 2. Mild leukocytosis, this could be secondary for him to be on steroids. We will continue to monitor this. 3. History of urinary retention. The patient self caths himself. We will continue that and continue his home medications. 4. Chronic kidney disease. His creatinine currently is stable and we will continue to monitor. 5. Deep vein thrombosis prophylaxis. The patient is already going to be on the Eliquis. This patient does not want to be in the IMCU. He states that he wants his family around and due to the limited visitation in the IMCU, the patient would like to go to the telemetry floor. I did explain to the patient that if his oxygen sats dropped any further requiring him to be on the BiPAP, he will have to be transferred to the IMCU. Currently, I did watch him and put him on 3 L and his sats were in the 92 and above. He does wear a CPAP at night, which I will start back on at nighttime. Job ID: [id number]
[2018-10-15] MEDS: Tamsulosin HCl 0.4 MG CAP PO SCH (21:41)
[2018-10-15] MEDS: Rosuvastatin 10 MG TAB PO SCH (21:41)
[2018-10-16 05:34] LABS: #Eosinphils 0.1 thou/uL (0.0-0.7); #Lymphocytes 0.4 thou/uL (1.20-3.40); #Monocytes 0.3 thou/uL (0.11-0.59); #Neutrophils 7.1 thou/uL (1.40-6.50); %Eosinophils 0.8 % (0.0-10.0); %Lymphocytes 5.2 % (21.0-51.0); %Monocytes 3.7 % (0.0-10.0); %Neutrophils 90.2 % (42.0-75.0); Hemoglobin 10.1 g/dL (14.0-18.0); Mean Corpuscular HGB CONC 32.5 g/dL (32.0-36.0); Mean Corpuscular Hemoglobin 28.3 pg (27.0-31.0); Mean Corpuscular Volume 87.1 fL (78.0-98.0); Mean Platelet Volume 8.8 fL (7.4-10.4); Platelet Count 211 thou/uL (130-400); RBC Distribution Width 16.7 % (11.5-14.5); Red Blood Cell (RBC) Count 3.58 mill/uL (4.70-6.10); White Blood Cell (WBC) Count 7.9 thou/uL (4.8-10.8)
[2018-10-16 05:51] LABS: Anion Gap 17 mmol/L (10-20); BUN (Urea Nitrogen) 32 mg/dL (8.4-25.7); Calc. Creatinine Clearance 54 mL/min (70-130); Calcium 8.4 mg/dL (7.8-10.44); Carbon Dioxide 17 mmol/L (23-31); Chloride 107 mmol/L (98-107); Estimated GFR-MDRD 43; Glucose 159 mg/dL (83-110); Potassium 4.7 mmol/L (3.5-5.1); Sodium 136 mmol/L (136-145)
[2018-10-16] MEDS ORDERED: Furosemide 40 MG/4 ML VIAL SLOW IVP SCH (06:00)
[2018-10-16] MEDS ORDERED: predniSONE 5 MG/5 ML UDCUP PO SCH (08:00)
[2018-10-16 08:30] LABS: Bilirubin Negative (Negative); Blood, Urine Negative (Negative); Clarity CLEAR (Clear); Glucose, Urine (Dipstick) Negative (Negative); Leukocyte Negative (Negative); Nitrite Negative (Negative); Protein, Urine (Dipstick) Negative (Neg-Trace); Specific Gravity, Urine 1.011 (1.002-1.036); Urobilinogen 0.2 mg/dL (0.2-1.0); pH, Urine 5.5 (5.0-9.0)
[2018-10-16 08:33] LABS: Bacteria/HPF None Seen HPF (None Seen); Hyaline Casts/LPF 0-3 HYALINE CAST LPF (0-3 Hyaline); Pathc Cast-AUWi Flag 0.14 (0-2.49); RBC/HPF 0-3 HPF (0-3); Squamous Epithelial 0-3 HPF (0-3); WBC/HPF 0-3 HPF (0-3)
[2018-10-16] MEDS ORDERED: Amlodipine 10 MG TAB PO SCH (09:00)
[2018-10-16] MEDS: Apixaban 5 MG TAB PO SCH (10:31)
[2018-10-16] MEDS: Dutasteride 0.5 MG CAP PO SCH (10:31)
[2018-10-16] MEDS: Tamsulosin HCl 0.4 MG CAP PO SCH ×2 (10:31→20:41)
[2018-10-16] MEDS ORDERED: predniSONE 20 MG TAB PO SCH (10:45)
--- NOTE | 2018-10-16 13:03 | PDOC.PN ---
- Subjective Encounter Start Date: 10/16/18 Encounter Start Time: 10:45 Subjective: pt up in bed still has some sob - Objective Resuscitation Status - Order Detail: 10/15/18 15:07 Resuscitation Status Routine Resuscitation Status: FULL: Full Resuscitation Vital Signs & Weight: Vital Signs (12 hours) Temp Pulse Resp BP Pulse Ox 10/16/18 12:00 96.2 F L 93 20 106/55 L 97 10/16/18 10:18 106 H 18 10/16/18 08:09 86 16 10/16/18 08:00 97.5 F L 103 H 16 133/66 90 L 10/16/18 04:00 97.1 F L 85 14 124/71 97 10/16/18 02:53 85 16 100 Weight Weight 222 lb 14.4 oz I&O: 10/15/18 10/16/18 10/17/18 06:59 06:59 06:59 Intake Total 100 Output Total 675 Balance -575 Result Diagrams: 10/16/18 04:30 10/16/18 04:30 Phys Exam - Physical Examination mild wheezing today Cardiovascular: RRR, no significant murmur, no rub, gallop, irregular Gastrointestinal: soft, non-tender, no distention, positive bowel sounds Musculoskeletal: edema present Dx/Plan (1) Acute on chronic diastolic (congestive) heart failure Code(s): I50.33 - ACUTE ON CHRONIC DIASTOLIC (CONGESTIVE) HEART FAILURE Status : Acute (2) Acute and chronic respiratory failure with hypoxia Code(s): J96.21 - ACUTE AND CHRONIC RESPIRATORY FAILURE WITH HYPOXIA Status: Acute Comment: Improved (3) Atrial fibrillation Code(s): I48.91 - UNSPECIFIED ATRIAL FIBRILLATION Status: Chronic Comment: Intermittent. Has been in sinus. Historically only had it when having BRAD. Therapeutic on INR and rate is appropriate to the clinical scenario. (4) BRAD (obstructive sleep apnea) Code(s): G47.33 - OBSTRUCTIVE SLEEP APNEA (ADULT) (PEDIATRIC) Status: Chronic Comment: on CPAP while asleep - Plan will decrease lasix to daily since he had a bump in his creatinine. -: will add steroids and check viral panel per family request. -: will consult pulm per pt request. Recent echo normal ef -: rate controlled back on eliquis -: cpap at night * . Review of Systems - Review of Systems Respiratory: Shortness of Breath Cardiovascular: negative: chest pain, palpitations, orthopnea, paroxysmal nocturnal dyspnea, edema, light headedness, other Gastrointestinal: negative: Nausea, Vomiting, Abdominal Pain, Diarrhea, Constipation, Melena, Hematochezia, Other - Medications/Allergies Allergies/Adverse Reactions: Allergies Allergy/AdvReac Type Severity Reaction Status Date / Time No Known Allergies Allergy Verified 10/15/18 17:41 Medications: Current Medications Acetaminophen (Tylenol) 650 mg PO Q4H PRN PRN Reason: Headache/Fever/Mild Pain (1-3) Albuterol/Ipratropium (Duoneb) 3 ml NEB U9XI-OF [facility] Last Admin: 10/16/18 10:18 Dose: 3 ml Amlodipine Besylate (Norvasc) 10 mg PO DAILY [facility] Last Admin: 10/16/18 10:31 Dose: 10 mg Apixaban (Eliquis) 5 mg PO DAILY [facility] Last Admin: 10/16/18 10:31 Dose: 5 mg Dutasteride (Avodart) 0.5 mg PO DAILY [facility] Last Admin: 10/16/18 10:31 Dose: 0.5 mg Furosemide (Lasix) 40 mg SLOW IVP DAILY [facility] Metoprolol Succinate (Toprol Xl) 25 mg PO DAILY [facility] Last Admin: 10/16/18 10:32 Dose: 25 mg Mometasone Furoate/Formoterol Fumar (Dulera 200 Mcg/5 Mcg Inhaler) 2 puff INH BID-RT SHORTY Pantoprazole Sodium (Protonix) 40 mg PO DAILY [facility] Last Admin: 10/16/18 10:31 Dose: 40 mg Rosuvastatin Calcium (Crestor) 10 mg PO HS [facility] Last Admin: 10/15/18 21:41 Dose: 10 mg Sodium Chloride (Flush - Normal Saline) 10 ml IVF Q12HR SHORTY Sodium Chloride (Flush - Normal Saline) 10 ml IVF PRN PRN PRN Reason: Saline Flush Tamsulosin HCl (Flomax) 0.4 mg PO BID [facility] Last Admin: 10/16/18 10:31 Dose: 0.4 mg
--- NOTE | 2018-10-16 17:56 | CON ---
DATE OF CONSULTATION: HISTORY OF PRESENT ILLNESS: A 77-year-old gentleman, who sees Dr. Shipman on a regular basis, presented to the hospital with increasing shortness of breath and cough, several days duration unresponsive to his usual home medication. He says he can barely walk 50 feet without getting shortness of breath. He is coughing, minimal wheezing. No fever or chills. Sputum is relatively clear. His x-ray taken in the ER shows evidence of cephalization and pulmonary edema. I do not see any acute infiltrates. He is a former smoker. Multiple admissions, in fact was recently discharged from the hospital in July 2018. PAST MEDICAL HISTORY: Sleep apnea, hypertension, lipidemia, COPD, and reflux. PAST SURGICAL HISTORY: Left knee, EGD, colonoscopy, previous pneumothorax in July requiring insertion of a small-bore chest tube. Last echocardiogram shows his ejection fraction was 65%, evidence of diastolic dysfunction. HOME MEDICATIONS: 1. Dulera. 2. Eliquis. 3. Albuterol. 4. Potassium. 5. Amlodipine 5. 6. Crestor 10. 7. Metoprolol 25. 8. Lasix. 9. Nexium. 10. Prednisone. ALLERGIES: NONE. SOCIAL HISTORY: As noted, continues to drink 5 beers, 2 glass of wine. Former smoker. REVIEW OF SYSTEMS: Ten-point negative. PHYSICAL EXAMINATION: VITAL SIGNS: O2 saturation is 90% on 3 L, respiratory rate 22, temperature 97, blood pressure 106/55. CHEST: Decreased breath sounds. No wheezing or crackles. CARDIAC: Normal S1 and S2. No gallop. ABDOMEN: No masses. LABORATORY DATA: Creatinine 1.57. White count 7000, hemoglobin and hematocrit of 10 and 30. X-ray shows pulmonary edema. His BNP was 310. IMPRESSION: 1. Acute on chronic respiratory failure, chronic obstructive pulmonary disease. 2. Diastolic dysfunction. I added steroids. We will decrease once he is improved, otherwise neb treatment Dulera is initiated. Consultation note, 70 minutes, 50% direct patient care. We will notify Dr. Shipman. Job ID: [id number]
[2018-10-16] MEDS: Mometasone/Formoterol 120 PUFF INHALER INH SCH (19:00)
[2018-10-16] MEDS: Rosuvastatin 10 MG TAB PO SCH (20:41)
[2018-10-17] MEDS: Mometasone/Formoterol 120 PUFF INHALER INH SCH ×2 (07:16→18:26)
[2018-10-17] MEDS ORDERED: Furosemide 40 MG/4 ML VIAL SLOW IVP SCH (09:00)
[2018-10-17] MEDS ORDERED: Amlodipine 5 MG TAB PO SCH (09:00)
[2018-10-17] MEDS: Dutasteride 0.5 MG CAP PO SCH (09:21)
[2018-10-17] MEDS: Apixaban 5 MG TAB PO SCH (09:22)
[2018-10-17] MEDS: Tamsulosin HCl 0.4 MG CAP PO SCH (09:22)
--- NOTE | 2018-10-17 10:55 | PRG ---
DATE OF SERVICE: 10/17/2018 SUBJECTIVE: This morning, he said he is much better. His breathing has improved. Less cough, less shortness of breath. OBJECTIVE: VITAL SIGNS: Sats are 92% on 3 L, respiratory rate 20, temperature 97, blood pressure 143/65. CHEST: Decreased breath sounds. No wheezing. CARDIAC: Normal S1, S2. No gallops. ABDOMEN: No masses. IMPRESSION: 1. Chronic obstructive pulmonary disease exacerbation. 2. Bronchitis. 3. Congestive heart failure. He is much improved. He can be discharged home any time. I have switched him over to prednisone, which can be given for a week. Follow up with Dr. Shipman. Job ID: [id number]
[2018-10-17 10:57] LABS: Anion Gap 17 mmol/L (10-20); BUN (Urea Nitrogen) 44 mg/dL (8.4-25.7); Calc. Creatinine Clearance 43 mL/min (70-130); Carbon Dioxide 22 mmol/L (23-31); Chloride 100 mmol/L (98-107); Estimated GFR-MDRD 33; Glucose 222 mg/dL (83-110); Potassium 4.2 mmol/L (3.5-5.1); Sodium 135 mmol/L (136-145)
--- NOTE | 2018-10-17 11:58 | PQF ---
JUSTINO BESS SHON WILLIS [id number] [facility]297 [id number] CLINICAL DOCUMENTATION IMPROVEMENT CLARIFICATION FORM: ICD-10 Updated PLEASE DO AN ADDENDUM TO THE PROGRESS NOTE WITH ANY DOCUMENTATION UPDATES OR ADDITIONS AND CARRY THROUGH TO DC SUMMARY. THANK YOU. DATE: 10-17-18 ATTN: DR. DUCKWORTH Please exercise your independent, professional judgment in responding to the clarification form. Clinical indicators are provided on the bottom of this form for your review Please check appropriate box(s): Conflicting documentation was noted in the Medical Record, please clarify if patient is being treated/monitored for: [ x ] COPD Exacerbation [ ] COPD Without Exacerbation [ ] Other diagnosis [ ] Unable to determine In addition, please specify: Present on Admission (POA): [ x] Yes [ ] No [ ] Unable to determine For continuity of documentation, please document condition throughout progress notes and discharge summary. Thank You. CLINICAL INDICATORS - SIGNS / SYMPTOMS/ LABS 10-16 (DONITA) I DO NOT THINK THIS IS A COPD EXACERBATION - I WILL CONTINUE HIS PREDNISONE THAT HE TAKES 2.5MG AT HOME. 10-17 (DEV): COPD EXACERBATION - SWITCHED HIM OVER TO PREDNISONE, WHICH CAN BE GIVEN FOR A WEEK RISK FACTORS H&P: * HX COPD * ACUTE ON CHRONIC DIASTOLIC CHF; ACUTE ON CHRONIC RESPIRATORY FAILURE W/ HYPOXIA * WEARS O2 AT HOME - CPAP AT NIGHT * BRAD 10-15 CXR: ;LUNGS ARE HYPERINFLATED - INTERSTITIAL PROMINENCE OF EACH LUNG. MILD BILATERAL PLEURAL EFFUSIONS; DECOMPENSATED CHF TREATMENT MAR: DUONEB 10-15 TO PRESENT DULERA INHALER 10-16 TO PRESENT SOLU-MEDROL 10-15 / 10-16 / 10-17 LASIX IV 10-15 / 10-16 PREDNISONE 40MG 10-16 NEW PREDNISONE ORDER 20 MG 10-17 THANK YOU, ALBERTINA (This form is maintained as a part of the permanent medical record) 2015 [employer]. All Rights Reserved Albertina Orourke RN, BS [email or web address] Cell [facility]
--- NOTE | 2018-10-17 12:21 | PQF ---
JUSTINO BESS SHON WILLIS [id number] [facility]-297 [id number] CLINICAL DOCUMENTATION IMPROVEMENT CLARIFICATION FORM: ICD-10 Updated PLEASE DO AN ADDENDUM TO THE PROGRESS NOTE WITH ANY DOCUMENTATION UPDATES OR ADDITIONS AND CARRY THROUGH TO DC SUMMARY. THANK YOU. DATE: 10-17-18 ATTN: DR. DUCKWORTH Please exercise your independent, professional judgment in responding to the clarification form. Clinical indicators are provided on the bottom of this form for your review Please check appropriate box(s): [ ] Acute Kidney Injury (NNEKA) [x ] Acute on Chronic Renal Failure please specify Stage of CKD (see below) [ ] Other diagnosis [ ] Unable to determine In addition, please specify: Present on Admission (POA): [ ] Yes [x ] No [ ] Unable to determine National Kidney Foundation Guidelines for CKD Staging Stage I Kidney damage with normal or increased GFR GFR > 90 Stage II Kidney damage with mildly decreased GFR GFR 60-89 Stage III Kidney damage with moderately decreased GFR GFR 30-59 Stage IV Kidney damage with severely decreased GFR GFR 16-29 Stage V Kidney failure GFR< 15 ESRD End Stage Renal Disease On dialysis Acute Renal Failure/Acute Kidney Failure defined as: Increases in SCr by (>) 0.3 mg/dl within 48 hours OR- Increases in SCr by (>) 1.5 times baseline, known or presumed to have occurred within the prior 7 days OR- Urine volume < 0.5 ml/kg/hour for 6 hours (KDIGO supplement 2012 for RIFLE/GINNA criteria) For continuity of documentation, please document condition throughout progress notes and discharge summary. Thank You. CLINICAL INDICATORS - SIGNS / SYMPTOMS / LABS 10-15 (DONITA): PT STATED HE HAS NOT BEEN DRINKING TOO MUCH WATER SINCE HE HAS BEEN GETTING VERY SHORT OF BREATH ON MINIMAL EXERTION. 10-16 (DONITA) WILL DECREASE LASIX TO DAILY SINCE HE HAD A BUMP IN HIS CREATININE LABS: BUN CREAT GFR 10-15 26 1.49 46 10-16 32 1.57 43 10-17 44 1.98 33 RISK FACTORS 10-15 (DONITA): * CURRENTLY ON STEROID TAPER WHICH HE HAS BEEN ON SINCE JULY * HX CHRONIC KIDNEY DISEASE MAR: LASIX IV 10-15 / 10-16 (DONITA) WILL DECREASE LASIX TO DAILY SINCE HE HAD A BUMP IN HIS CREATININE TREATMENTS: 10-16 (ROMELIAJANETH) WILL DECREASE LASIX TO DAILY SINCE HE HAD A BUMP IN HIS CREATININE THANK YOU, ALBERTINA (This form is maintained as a part of the permanent medical record) 2015 [facility]. All Rights Reserved Albertina Orourke RN, BS [email or web address] Cell [facility]
--- NOTE | 2018-10-17 14:04 | PDOC.PN ---
- Subjective Encounter Start Date: 10/17/18 Encounter Start Time: 09:00 Subjective: pt up in bed feels well but sob on ambulation - Objective Resuscitation Status - Order Detail: 10/15/18 15:07 Resuscitation Status Routine Resuscitation Status: FULL: Full Resuscitation Vital Signs & Weight: Vital Signs (12 hours) Temp Pulse Resp BP Pulse Ox 10/17/18 10:28 97 20 92 L 10/17/18 09:22 90 10/17/18 07:58 97.7 F 90 18 143/65 H 94 L 10/17/18 07:17 90 16 10/17/18 03:24 97.3 F L 93 14 129/73 98 10/17/18 02:20 94 20 92 L Weight Weight 219 lb 14.4 oz I&O: 10/16/18 10/17/18 10/18/18 06:59 06:59 06:59 Intake Total 550 240 Output Total 975 Balance -425 240 Result Diagrams: 10/16/18 04:30 10/17/18 10:31 Phys Exam - Physical Examination Neck: no nodes, no JVD, supple, full ROM mild wheezing all over Cardiovascular: RRR, no significant murmur, no rub, gallop, irregular Dx/Plan (1) Acute on chronic diastolic (congestive) heart failure Code(s): I50.33 - ACUTE ON CHRONIC DIASTOLIC (CONGESTIVE) HEART FAILURE Status : Acute (2) Acute and chronic respiratory failure with hypoxia Code(s): J96.21 - ACUTE AND CHRONIC RESPIRATORY FAILURE WITH HYPOXIA Status: Acute Comment: Improved (3) Atrial fibrillation Code(s): I48.91 - UNSPECIFIED ATRIAL FIBRILLATION Status: Chronic Comment: Intermittent. Has been in sinus. Historically only had it when having BRAD. Therapeutic on INR and rate is appropriate to the clinical scenario. (4) BRAD (obstructive sleep apnea) Code(s): G47.33 - OBSTRUCTIVE SLEEP APNEA (ADULT) (PEDIATRIC) Status: Chronic Comment: on CPAP while asleep - Plan pt's creatinine conitnue increase, will discontinue lasix -: continue iv steroids and duonebs -: pt's oxygen sat drop with ambulation -: continue eliquis low dose * . Review of Systems - Review of Systems Respiratory: Shortness of Breath Cardiovascular: negative: chest pain, palpitations, orthopnea, paroxysmal nocturnal dyspnea, edema, light headedness, other Gastrointestinal: negative: Nausea, Vomiting, Abdominal Pain, Diarrhea, Constipation, Melena, Hematochezia, Other - Medications/Allergies Allergies/Adverse Reactions: Allergies Allergy/AdvReac Type Severity Reaction Status Date / Time No Known Allergies Allergy Verified 10/15/18 17:41 Medications: Current Medications Acetaminophen (Tylenol) 650 mg PO Q4H PRN PRN Reason: Headache/Fever/Mild Pain (1-3) Albuterol/Ipratropium (Duoneb) 3 ml NEB [id number] [facility] Last Admin: 10/17/18 10:28 Dose: 3 ml Amlodipine Besylate (Norvasc) 5 mg PO DAILY [facility] Last Admin: 10/17/18 09:22 Dose: 5 mg Apixaban (Eliquis) 5 mg PO DAILY [facility] Dutasteride (Avodart) 0.5 mg PO DAILY [facility] Last Admin: 10/17/18 09:21 Dose: 0.5 mg Metoprolol Succinate (Toprol Xl) 25 mg PO DAILY [facility] Last Admin: 10/17/18 09:22 Dose: 25 mg Mometasone Furoate/Formoterol Fumar (Dulera 200 Mcg/5 Mcg Inhaler) 2 puff INH BID-RT [facility] Last Admin: 10/17/18 07:16 Dose: 2 puff Pantoprazole Sodium (Protonix) 40 mg PO DAILY [facility] Last Admin: 10/17/18 09:22 Dose: 40 mg Prednisone (Prednisone) 20 mg PO QAM-WM [facility] Rosuvastatin Calcium (Crestor) 10 mg PO HS [facility] Last Admin: 10/16/18 20:41 Dose: 10 mg Sodium Chloride (Flush - Normal Saline) 10 ml IVF Q12HR [facility] Last Admin: 10/17/18 09:23 Dose: 10 ml Sodium Chloride (Flush - Normal Saline) 10 ml IVF PRN PRN PRN Reason: Saline Flush Tamsulosin HCl (Flomax) 0.4 mg PO BID [facility] Last Admin: 10/17/18 09:22 Dose: 0.4 mg
[2018-10-17 17:05] VITALS: BP 129/67; TEMP 97.8
[2018-10-18] MEDS ORDERED: predniSONE 20 MG TAB PO SCH (08:00)
[2018-10-18] MEDS ORDERED: Apixaban 2.5 MG TAB PO SCH (09:00)
[2018-10-18] MEDS ORDERED: Apixaban 5 MG TAB PO SCH ×2 (09:00)
--- NOTE | 2018-10-19 00:35 | DIS ---
DATE OF ADMISSION: 10/15/2018 DATE OF DISCHARGE: 10/17/2018 DISCHARGE DIAGNOSES: As of the following; 1. Shortness of breath, most likely secondary to a combination of chronic obstructive pulmonary disease exacerbation and diastolic heart failure exacerbation. 2. Atrial fibrillation. 3. Obstructive sleep apnea. 4. Hypertension. 5. Obesity. HOSPITAL COURSE: The patient is a 78-year-old male, who initially presented to the hospital with complaints of shortness of breath which had been going on for the past 4 days. The patient initially was found to be hypoxic around 70s oxygen saturations. He was put on BiPAP in the ER; however, the patient was reluctant to go into the IMCU since there are limited visiting hours and he wanted his family to be around all the time. At this time, he was downgraded to the telemetry floor and he continued to improve. The patient wanted to see his health insurance sales agent, who was consulted also. He was also put on IV steroids and also on diuretics. The patient on the discharge day, still was not optimal. He did have significant shortness of breath; however, really wanted to go home and did not want to stay in the hospital. The patient does use home oxygen. His oxygen saturations dropped on minimal exertion and the patient was advised to use 2 L to 3 L of oxygen to keep his sats greater than 92. On the day of discharge, I extensively went over the plan with the patient and his whole family that were around. He will follow up with his primary care doctor next week, also will have blood work done, especially his creatinine trended up to 1.98 from his baseline which was 1.49, and he is aware of this and he will follow up with his primary care doctor and get his lab work done on Saturday. Also, I did make some adjustments in terms of his blood pressure medications. I took him off the metoprolol given his significant COPD and I put him on Cardizem since he was tachycardic even on mild ambulation. He also is supposed to follow up with Cardiology in regard to this. I advised him to go back on this Eliquis since he stopped taking the Eliquis due to plans for possible surgery. However, I did emphasize that he is not optimized as of yet and will need Cardiology and Pulmonology clearance prior to his surgery. Also, I told him to hold off on Lasix for the next couple days and restart the Lasix back on Saturday, and I have provided him a script for that. HOME MEDICATIONS: He is going to be on, 1. Apixaban 5 mg b.i.d. 2. Diltiazem 30 mg b.i.d. 3. Lasix 40 mg one p.o. daily starting on Saturday. 4. Flomax 0.4 mg b.i.d. 5. Prednisone 20 mg daily. This was put by the health insurance sales agent and he will follow up with Pulmonology for tapering. 6. Nexium 20 mg daily. 7. Rosuvastatin 10 mg daily. 8. Amlodipine 5 mg daily. 9. Dutasteride one p.o. daily. 10. ProAir 2 puffs q.4 hours p.r.n. 11. Dulera 2 puffs b.i.d. PHYSICAL EXAMINATION: VITAL SIGNS: Temperature of 97.8, heart rate of 90, respirations 18, oxygen saturation 94% on 3 L, blood pressure 129/67. GENERAL: He is awake, alert, and oriented x3. Does not appear in distress. CV: S1 and S2 present. Irregularly irregular. LUNGS: Actually, clear to auscultation. No rhonchi or wheezes noted. ABDOMEN: Soft and nontender. Bowel sounds are present x2. EXTREMITIES: No significant edema which has improved since admission. Pedal pulses are present x2. Again, he will follow up with his primary care doctor. He will follow up with Pulmonology and also he will get his lab work done for creatinine on Saturday. Job ID: [id number]
== END 2018-10-17 19:00 | disposition home or self-care (01) | DRG 291 ==
LOC: ERS 12:22 → 2NO 17:27
PROVIDERS: ADMIT Internal Medicine; ATTEND Internal Medicine
DX: I13.0 Hypertensive heart and chronic kidney disease with heart failure and stage 1 through stage 4 chronic kidney disease, or unspecified chronic kidney disease (principal); I50.33 Acute on chronic diastolic (congestive) heart failure; J96.21 Acute and chronic respiratory failure with hypoxia; J44.1 Chronic obstructive pulmonary disease with (acute) exacerbation; N17.9 Acute kidney failure, unspecified; Z99.81 Dependence on supplemental oxygen; I48.0 Paroxysmal atrial fibrillation; N18.9 Chronic kidney disease, unspecified; D72.829 Elevated white blood cell count, unspecified; G47.33 Obstructive sleep apnea (adult) (pediatric); K21.9 Gastro-esophageal reflux disease without esophagitis; E66.9 Obesity, unspecified; Z68.32 Body mass index [BMI] 32.0-32.9, adult; Z87.891 Personal history of nicotine dependence
CPT/HCPCS: 36415; 71045; 80048; 80053; 81001; 82805; 83880; 84484; 85025; 87633; 87798; 93005; 94640; 94660; 96365; 96366; 96375; J1940; J2920; J2930; J7506; J7620

== ENCOUNTER 2018-11-03 14:59 | Outpatient (CLI) | payer MEDICARE, BC ==
[2018-11-03 17:20] LABS: INR-International Normal Ratio 1.1; PTT 28.7 SEC (22.9-36.1)
[2018-11-03 17:37] LABS: Anion Gap 19 mmol/L (10-20); BUN (Urea Nitrogen) 45 mg/dL (8.4-25.7); Calc. Creatinine Clearance 0 mL/min (70-130); Calcium 8.6 mg/dL (7.8-10.44); Carbon Dioxide 24 mmol/L (23-31); Chloride 98 mmol/L (98-107); Estimated GFR-MDRD 32; Glucose 169 mg/dL (83-110); Potassium 3.6 mmol/L (3.5-5.1); Sodium 137 mmol/L (136-145)
== END 2018-11-03 15:00 | disposition home or self-care (01) ==
LOC: LABBT 14:59
PROVIDERS: ATTEND Internal Medicine Cardiovascular Disease
DX: Z01.812 Encounter for preprocedural laboratory examination (principal); I48.0 Paroxysmal atrial fibrillation
CPT/HCPCS: 36415; 80048; 85610; 85730

== ENCOUNTER 2018-11-05 06:21 | Day surgery (SDC) | payer MEDICARE, BC ==
[2018-11-03 17:28] VITALS: BMI 31.4
[2018-11-05] MEDS ORDERED: PROPOFOL 20 ML ONE (08:23)
[2018-11-05] MEDS ORDERED: PROPOFOL 200 MG/20 ML VIAL ONE (15:43)
--- NOTE | 2018-11-06 15:57 | ECHO ---
TRANSESOPHAGEAL ECHOCARDIOGRAM: DATE OF PROCEDURE: 11/05/18 INDICATION: 78-year-old gentleman with paroxysmal atrial fibrillation. DESCRIPTION OF PROCEDURE: The patient was taken to the PACU. The patient was sedated by anesthesiology. A transesophageal probe was placed in the distal esophagus and stomach. Echocardiographic images were obtained. The transesophageal probe was removed. FINDINGS: 1. Normal left ventricular systolic function. 2. Marked biatrial enlargement. 3. Moderate mitral regurgitation. 4. Moderate tricuspid regurgitation. 5. Mild aortic regurgitation. 6. No formed thrombus in left atrium or left atrial appendage. 7. Atherosclerotic debris in the descending aorta. IMPRESSION: No formed thrombus in the left atrium or left atrial appendage. MTDD
--- NOTE | 2018-11-06 16:00 | OP ---
CARDIOLOGY PROCEDURE NOTE: Date: 11/05/18 PROCEDURE: Electrical cardioversion. INDICATION FOR PROCEDURE: 78-year-old gentleman with paroxysmal atrial fibrillation. DESCRIPTION O PROCEDURE: The patient was taken to the PACU. The patient was sedated by anesthesiology. The patient was shocked with 200 joules of synchronized electricity. The patient converted to normal sinus rhythm. IMPRESSION: Successful electrical cardioversion.
== END 2018-11-05 10:28 | disposition home or self-care (01) ==
LOC: CCL 06:21
PROVIDERS: ATTEND Internal Medicine Cardiovascular Disease
PROC: 5A2204Z Restoration of Cardiac Rhythm, Single (ICD-10-PCS; principal; 2018-11-05)
PROC: B24BZZ4 Ultrasonography of Heart with Aorta, Transesophageal (ICD-10-PCS; 2018-11-05)
DX: I48.0 Paroxysmal atrial fibrillation (principal); I08.3 Combined rheumatic disorders of mitral, aortic and tricuspid valves; I70.0 Atherosclerosis of aorta; I11.0 Hypertensive heart disease with heart failure; I50.32 Chronic diastolic (congestive) heart failure; I25.10 Atherosclerotic heart disease of native coronary artery without angina pectoris; I48.92 Unspecified atrial flutter; I49.3 Ventricular premature depolarization; I49.1 Atrial premature depolarization; E78.00 Pure hypercholesterolemia, unspecified; Z79.01 Long term (current) use of anticoagulants; Z79.52 Long term (current) use of systemic steroids; Z79.899 Other long term (current) drug therapy; Z91.048 Other nonmedicinal substance allergy status
CPT/HCPCS: 92960; 93312; J2704

== ENCOUNTER 2018-11-13 09:47 | Outpatient (CLI) | payer MEDICARE, BC ==
--- NOTE | 2018-11-13 10:20 | RAD ---
PA AND LATERAL CHEST: Comparison: 09-25-18 History: Dyspnea. FINDINGS: Heart size is upper limits of normal. There are arthrosclerotic changes of the aorta. Severe chronic lung changes are seen. Overall appearance is stable as compared to the prior exam. IMPRESSION: Chronic lung change. Stable exam. POS: [facility]
== END 2018-11-13 09:48 | disposition home or self-care (01) ==
LOC: RAD 09:47
PROVIDERS: ATTEND Internal Medicine Critical Care Medicine
DX: R06.00 Dyspnea, unspecified (principal)
CPT/HCPCS: 71046

== ENCOUNTER 2018-12-02 12:44 | Outpatient (CLI) | payer MEDICARE, BC ==
[2018-12-02 14:19] LABS: Hemoglobin 11.6 g/dL (14.0-18.0); Mean Corpuscular HGB CONC 31.3 g/dL (32.0-36.0); Mean Corpuscular Hemoglobin 27.4 pg (27.0-31.0); Mean Corpuscular Volume 87.4 fL (78.0-98.0); Mean Platelet Volume 8.3 fL (7.4-10.4); Platelet Count 287 thou/uL (130-400); RBC Distribution Width 16.8 % (11.5-14.5); Red Blood Cell (RBC) Count 4.24 mill/uL (4.70-6.10); White Blood Cell (WBC) Count 14.1 thou/uL (4.8-10.8)
[2018-12-02 14:27] LABS: INR-International Normal Ratio 1.3; Prothrombin Time 16.3 SEC (12.0-14.7)
[2018-12-02 14:42] LABS: Anion Gap 14 mmol/L (10-20); BUN (Urea Nitrogen) 41 mg/dL (8.4-25.7); Calc. Creatinine Clearance 0 mL/min (70-130); Calcium 9.1 mg/dL (7.8-10.44); Carbon Dioxide 24 mmol/L (23-31); Chloride 104 mmol/L (98-107); Estimated GFR-MDRD 37; Glucose 87 mg/dL (83-110); Potassium 4.3 mmol/L (3.5-5.1); Sodium 138 mmol/L (136-145)
== END 2018-12-02 12:45 | disposition home or self-care (01) ==
LOC: LABBT 12:44
PROVIDERS: ATTEND Internal Medicine Cardiovascular Disease
DX: Z01.818 Encounter for other preprocedural examination (principal)
CPT/HCPCS: 80048; 85027; 85610; 85730; 93005; 93010

== ENCOUNTER 2018-12-04 11:43 | Inpatient (IN) | payer MEDICARE, BC ==
[2018-12-02 12:59] VITALS: BMI 30.2
[2018-12-04] MEDS ORDERED: Vecuronium 10 MG VIAL ONE (13:26)
[2018-12-04] MEDS ORDERED: Lidocaine 1% PF 5 ML VIAL ONE (13:26)
[2018-12-04] MEDS ORDERED: PROPOFOL 200 MG/20 ML VIAL ONE (13:26)
[2018-12-04] MEDS ORDERED: Ondansetron PF 4 MG/2 ML Vial ONE (13:26)
[2018-12-04] MEDS ORDERED: Dexamethasone 20 MG/5 ML VIAL ONE (13:26)
[2018-12-04] MEDS ORDERED: PHENYLEPHRINE-NS 100 MCG/ML 10 ML SYRINGE ONE (13:26)
[2018-12-04] MEDS ORDERED: Ketorolac Tromethamine 30 MG/ML VIAL ONE (13:26)
[2018-12-04] MEDS ORDERED: Heparin 10,000 UNITS/1 ML VIAL ONE (14:27)
[2018-12-04] MEDS ORDERED: Protamine Sulfate 50 MG/5 ML VIAL ONE (14:28)
[2018-12-04] MEDS ORDERED: Fentanyl 100 MCG/2 ML VIAL ONE (15:06)
[2018-12-04] MEDS ORDERED: Isoproterenol 0.2 MG/1 ML AMP ONE (15:32)
[2018-12-04] MEDS ORDERED: SUGAMMADEX SODIUM 200 MG/2 ML VIAL ONE (17:46)
[2018-12-04] MEDS ORDERED: Morphine 2 MG/ML SYRINGE ONE (18:23)
[2018-12-04] MEDS ORDERED: Furosemide 40 MG/4 ML VIAL ONE (18:24)
--- NOTE | 2018-12-04 20:39 | OP ---
DATE OF PROCEDURE: 12/04/2018 PROCEDURES PERFORMED: 1. Comprehensive electrophysiology testing with 3D mapping and ablation of atrial fibrillation. 2. Transseptal catheterization x2. 3. Intracardiac echocardiography. CLINICAL INDICATION: Atrial fibrillation. ASA CLASSIFICATION: 3. ANESTHESIA: General endotracheal anesthesia per Anesthesiology. ADDITIONAL CARDIAC MEDICATIONS: Isoproterenol 10 mcg/min infusion. TOTAL HEPARIN GIVEN: 16,000 units. TOTAL PROTAMINE GIVEN: 40 mg. ACUTE COMPLICATIONS: None apparent. TOTAL ABLATION TIME: 59 minutes and 12 seconds. TOTAL FLUORO TIME: Zero. METHODS: After informed consent was obtained, the patient was taken to the EP lab in a fasting state. Both groins were prepped and draped using ultrasound guidance. The right and left femoral veins were accessed, and an 11-Cymraes and 8-Cymraes sheaths were placed in the left groin. Two 8-Cymraes sheaths were placed in the right groin. All 8-Cymraes sheaths were replaced by long sheaths for catheter stability, and a 20-pole catheter was placed in the left groin, advanced up to the right atrium for imaging and the coronary sinus for mapping. A circular ablation catheter was placed in right groin, advanced up to the right atrium. A 3D map was obtained at the right atrium and the coronary sinus. Anticoagulation was performed. Transseptal catheterization was performed on 2 occasions, and a circular catheter was used to create a 3D map of the left atrium and pulmonary veins in the appendage. An esophageal temperature probe was placed in the CS, this was located next to location sensors and this could be visualized in the 3D mapping system. Ablation was delivered isolating all 4 pulmonary veins in the posterior wall of the left atrium. Ablation was also performed completely isolating the coronary sinus and the left atrial appendage. Once this was performed, the arrhythmia organized into an atypical flutter, which was terminated with pacing. No other arrhythmias were seen other than isolated PACs. At the conclusion of the procedure, catheters were removed, sheaths were pulled, hemostasis was achieved with collagen closure and the 11-Cymraes was closed with suture closure. Protamine was administered. RESULTS: 1. Baseline intervals; QRS duration 82 milliseconds, QT interval 362 milliseconds, HV interval 61 milliseconds. 2. Atrial function. The patient was in coarse AFib ablation isolating all 4 veins in coronary sinus and appendage was performed. Ultimately, these terminated the patient's arrhythmia spontaneously. 3. Ablation details; a total of 59 minutes and 12 seconds of RF was delivered isolating PVs, left atrium appendage, and coronary sinus. IMPRESSION: Successful pulmonary vein antral isolation including appendage isolation. RECOMMENDATION: Oral anticoagulation. Job ID: [id number]
[2018-12-04] MEDS ORDERED: PROVENTIL INHALER 6.7 G (200 INHALATIONS) INH PRN (22:11)
[2018-12-04] MEDS ORDERED: ALPRAZolam 0.5 MG TAB PO PRN (22:13)
[2018-12-04] MEDS ORDERED: Rosuvastatin 10 MG TAB PO SCH (22:45)
[2018-12-04] MEDS: Furosemide 40 MG/4 ML VIAL SLOW IVP SCH (22:47)
[2018-12-04] MEDS: Colchicine 0.3 MG TAB PO SCH (23:18)
[2018-12-04] MEDS ORDERED: Furosemide 40 MG/4 ML VIAL SLOW IVP SCH (23:45)
[2018-12-04] MEDS ORDERED: Tamsulosin HCl 0.4 MG CAP PO SCH (23:45)
[2018-12-04] MEDS ORDERED: Ipratropium Bromide 2.5 ml Neb NEB PRN (23:59)
[2018-12-05] MEDS: Ipratropium Bromide 2.5 ml Neb NEB SCH ×2 (00:23→06:34)
[2018-12-05] MEDS: Sucralfate 1 GM TAB PO SCH ×3 (05:21→18:00)
[2018-12-05 06:00] LABS: Anion Gap 16 mmol/L (10-20); BUN (Urea Nitrogen) 32 mg/dL (8.4-25.7); Calc. Creatinine Clearance 0 mL/min (70-130); Calcium 8.6 mg/dL (7.8-10.44); Carbon Dioxide 20 mmol/L (23-31); Chloride 107 mmol/L (98-107); Estimated GFR-MDRD 37; Glucose 124 mg/dL (83-110); Magnesium 1.8 mg/dL (1.6-2.6); Potassium 4.1 mmol/L (3.5-5.1); Sodium 139 mmol/L (136-145)
[2018-12-05 06:30] LABS: Actual Bicarbonate (HCO3a) 17.7 mEq/L (22-28); Base Excess (BEa) -10.1 mEq/L (-2.0 to +3.0); CO2 Tension 46.8 mmHg (35.0-45.0); Calcium, Ionized 1.16 mmol/L (1.12-1.30); Hemoglobin (Hb) 11.5 g/dL (14.0-18.0); O2 Tension (PaO2) 39.4 mmHg (> 70.0); Potassium - ABG Lab 4.25 mmol/L (3.70-5.30)
[2018-12-05 06:31] LABS: Puncture Site RRA
[2018-12-05] MEDS ORDERED: Nitroglycerin 0.4 MG TAB (25 Tab Bottle) ONE (06:40)
[2018-12-05] MEDS ORDERED: Furosemide 40 MG/4 ML VIAL ONE (06:40)
[2018-12-05 06:57] LABS: Actual Bicarbonate (HCO3a) 20.7 mEq/L (22-28); Base Excess (BEa) -4.3 mEq/L (-2.0 to +3.0); CO2 Tension 37.9 mmHg (35.0-45.0); Calcium, Ionized 1.11 mmol/L (1.12-1.30); Carboxyhemoglobin (COHb) 1.8 gm% (0.0-3.0); Hemoglobin (Hb) 11.2 g/dL (14.0-18.0); O2 Tension (PaO2) 188.4 mmHg (> 70.0); Potassium - ABG Lab 4.08 mmol/L (3.70-5.30); pH, Arterial 7.36 (7.35-7.45)
[2018-12-05 06:59] LABS: Puncture Site RRA
[2018-12-05 07:01] LABS: ALV-art Gradient 477.225 (0-20)
[2018-12-05] MEDS: Mometasone/Formoterol 120 PUFF INHALER INH SCH ×2 (07:08→18:48)
[2018-12-05] MEDS ORDERED: Nitroglycerin 2% Ointment 1 INCH/1 GM Packet TOP SCH (07:15)
--- NOTE | 2018-12-05 07:59 | RAD ---
PORTABLE CHEST: HISTORY: Chest tube placement. Shortness of breath. COMPARISON: 11/13/2018 FINDINGS: Increased vascular and interstitial congestion when compared to prior exam. Cardiomegaly. No eviden ce of chest tube, ET tube, or central line identified. IMPRESSION: Cardiomegaly with vascular and interstitial congestion, more prominent when compared to prior examina tion. POS: [facility]
[2018-12-05] MEDS ORDERED: Metolazone 2.5 MG TAB PO SCH (08:30)
--- NOTE | 2018-12-05 08:35 | PDOC.EVN ---
Event Note - Event Note Event Note: Responded to Code green around 0600. Patient was satting in 50-60's. Patient had been doing well overnight on CPAP which was removed and placed on home O2 of 4lts at 0500. He received 80 mg lasix last night and had output of 850 ml. He started to desat at 0600 and was feeling very short of breath. Patient found in respiratory distress with diffuse wheezing and crackles in BLL. ABG was obtained. PO2 was 39. pH of 7.2. pCO2 of 46.8. Systolic BP of 190. Patient remained alert and oriented x 4 during episode. Patient was transferred to ICU. burlap man doctor for Dr. Kuhn was notified and recommended IV or SL nitro- SL nitro given and BP improved to 163/96. Patient placed on bipap. Blood gas improved. pH 7.36. pO2 of 188. pCO2 of 37. 40 mg IV lasix also placed. Patient condition much improved. Consult placed to [facility] physician for medical managment. Courtesy orders and consult to pulmonology made. Patient's PCP is Dr. Mary and freezer person is Dr. Shipman who is on later today.
[2018-12-05] MEDS: Furosemide 40 MG/4 ML VIAL SLOW IVP SCH ×2 (09:00→21:51)
[2018-12-05] MEDS: Apixaban 5 MG TAB PO SCH ×2 (09:00→22:22)
[2018-12-05] MEDS ORDERED: predniSONE 5 MG TAB PO SCH (09:00)
[2018-12-05] MEDS: Colchicine 0.3 MG TAB PO SCH ×2 (09:00→22:22)
[2018-12-05] MEDS ORDERED: Potassium Chloride 20 MEQ TAB PO SCH (09:00)
[2018-12-05] MEDS ORDERED: Torsemide 20 MG TAB PO SCH (09:00)
[2018-12-05] MEDS ORDERED: Dutasteride 0.5 MG CAP PO SCH (09:00)
[2018-12-05] MEDS: Tamsulosin HCl 0.4 MG CAP PO SCH ×2 (09:00→21:52)
--- NOTE | 2018-12-05 09:52 | PRG ---
DATE OF SERVICE: 12/05/2018 ADDITIONAL REFERRING PHYSICIAN: Fadi Gonzalez MD I am seeing Mr. Mart at our [facility] ICU as an Electrophysiology followup 1 day after his pulmonary venous isolation procedure. SUBJECTIVE: Mr. Mart had a progressive dyspnea overnight. This morning, he had to be transferred to the ICU for transient BiPAP use, which is now off and also diuresis. He is feeling better now. OBJECTIVE DATA: VITAL SIGNS: Blood pressure is 117/57, heart rate is 111, respiratory rate is 28, and temperature is 97.2 degrees Fahrenheit. GENERAL: Alert and oriented man, who is at this point, in no apparent distress. NECK: Supple. Jugular veins are still distended at 45 degree angle. CHEST: Coarse. I do not see crackles. HEART: Sounds are regular to rate and rhythm, but tachycardic. No murmur or gallop is heard. ABDOMEN: Benign. Bowel sounds are positive. EXTREMITIES: Lower extremity without edema, clubbing, or cyanosis. Pulses are adequate. NEUROLOGIC: The patient is nonfocal. MUSCULOSKELETAL: No joint swelling or deformity. SKIN: Without rash. DATABASE: Chest x-ray reviewed reveals increased cephalization signs of fluid overload. LABORATORY DATA: Reveals ABG of pH of 7.2 initially and now 7.36, pCO2 of 46 and now 37, and pO2 is 59 and now is 99 on BiPAP at 6:48 a.m. The lab data reveals normal electrolytes with BUN 32 and creatinine 1.78. ASSESSMENT AND PLAN: Mr. Mart is a pleasant 78-year-old gentleman with history of persisting atrial fibrillation requiring cardioversion on November 06, 2018. He does have history of chronic diastolic heart failure with preserved left ventricular ejection fraction on transesophageal echocardiogram on November 05, 2018. Moderate mitral regurgitation and tricuspid regurgitation noted at that time. Mild aortic insufficiency. He has chronic obstructive pulmonary disease and history of pneumonia and spontaneous pneumothorax in July 2018. He also has acute on chronic renal failure at that time . Now, he is here 1 day after his pulmonary venous isolation procedure. It was an extensive procedure up to an hour of ablation performed in the left and right atrium and in the coronary sinus. No evidence of effusion noted on ICE postprocedure. The patient received IV diuretics, hence the fluid load through the procedure. Overnight though, he developed progressive dyspnea and developed typical signs of fluid overload and orthopnea, which responded to bilevel positive airway pressure and diuretics. His in's and out's demonstrates now -950 mL balance and continues to diurese. Pulmonary is being consulted and also the [facility] will follow him. My plan at this point; 1. Agree with the initiated diuresis seems to be diuresed and his renal function followed hence his renal insufficiency. Blood pressure control is very reasonable. Continue diltiazem and nitroglycerin. Consider beta fuad, also metoprolol if tolerated from Pulmonary standpoint. 2. Atrial arrhythmias, currently still in sinus rhythm, although very extensive ablation was required to maintain normal rhythm on him. I am expecting some degree of pericardial irritation/pericarditis and colchicine will be initiated for next 3 weeks 0.3 mg 3 times a day. 3. CHADS-VASc score of 6 and CHERELLE isolation. Will need to continue apixaban lifelong uninterrupted. 4. We will also discuss with Dr. Gonzalez, his usual tso. Job ID: [id number] [facility]
[2018-12-05 11:26] LABS: Troponin I 14.528 ng/mL (< 0.028)
[2018-12-05] MEDS ORDERED: Furosemide 100 MG/10 ML VIAL SLOW IVP SCH (11:45)
--- NOTE | 2018-12-05 14:10 | CON ---
DATE OF CONSULTATION: REASON FOR CONSULTATION: Shortness of breath. HISTORY OF PRESENT ILLNESS: Mr. Bin Mart is a very pleasant 78-year-old gentleman. The patient had an atrial flutter ablation yesterday, which was extensive and developed difficulty breathing later and had to be treated as will be outlined below. The patient has a past history of diastolic congestive heart failure and coronary artery disease. The diastolic heart failure is documented by increased BNP. He also underwent stress testing, which showed normal left ventricular systolic function with no focal areas of ischemia. The patient did well with the ablation as mentioned in the note by Dr. Kuhn with an extensive ablation. Also had ablation of atrial fibrillation. He had a left-sided atypical flutter as well as atrial fibrillation. The patient did develop difficulty breathing later and he moved to the intensive care unit. He has improved with Lasix. The patient did not have chest pain with this. PAST HISTORY: 1. Diastolic heart failure. 2. Coronary artery disease with no evidence of any ischemia on stress testing, but it was noted that he has calcium in his coronary arteries on imaging. 3. Chronic obstructive pulmonary disease. 4. Hypertension. MEDICATIONS: Prior to admission, he was takin. Eliquis. 2. Crestor. 3. Nexium. 4. Inhaled bronchodilators. 5. 25 mg of metoprolol, but it has been stopped postoperatively. 6. Losartan. 7. Torsemide. 8. Potassium. 9. Amlodipine. 10. Eliquis. SOCIAL HISTORY: He is accompanied by his family. They are very supportive of him. He does not currently smoke. REVIEW OF SYSTEMS: CONSTITUTIONAL: No significant weight gain or loss. VISION: No changes. HEARING: No changes. PULMONARY: No cough or wheezing. GASTROINTESTINAL: No nausea, vomiting, or diarrhea. SKIN: No rashes. NEUROLOGIC: No unilateral weakness or numbness. PSYCHIATRIC: No unusual depression or anxiety. HEMATOLOGIC: No unusual bruising. GENITOURINARY: No burning with urination. PHYSICAL EXAMINATION: GENERAL: This is a 78-year-old gentleman who is feeling much better now. VITAL SIGNS: His blood pressure is 120-140 systolic, pulse is 60 and sinus. HEENT: Eyes, sclerae nonicteric. Mouth, mucous membranes moist. NECK: Supple. No lymphadenopathy. LUNGS: Expiratory wheezing. CARDIAC: Normal S1, normal S2. ABDOMEN: Soft and nontender. EXTREMITIES: No clubbing or cyanosis. There is no significant edema. SKIN: Warm and dry. PSYCHIATRIC: Mood and affect normal. NEUROLOGIC: Grossly normal. DIAGNOSTIC DATA: EKG after the procedure showed no acute changes. Troponin level was drawn this morning in view of the difficulty breathing episode. The troponin was 14.528. I did discuss with Dr. Brandt. He said at least some if not all this could be related to the actual ablation itself. The chest x-ray shows pulmonary congestion. ASSESSMENT: 1. Status post atrial fibrillation and atrial flutter ablation and extensive procedure. 2. History of diastolic heart failure. 3. Coronary artery disease. 4. Chronic obstructive pulmonary disease. 5. Increased troponin, probably mostly related to the ablation itself, may also be some demand ischemia. There is no evidence of any ST-elevation infarction. PLAN: 1. We will go ahead and do troponin levels to be trending to see if there is any peak and trough. 2. Continue diuretic therapy. 3. Resume angiotensin receptor blockers. 4. He is on Eliquis. Continue current medications. We will follow with you. Keep in the ICU one more day, probably go to home on Saturday if he is doing well. Job ID: [id number]
[2018-12-05] MEDS ORDERED: methylPREDNISolone Sod Succ/PF 125 MG/2 ML VIAL IVP SCH (16:00)
[2018-12-05] MEDS ORDERED: Bacteriostatic Water 30 ML VIAL FS PRN ×3 (16:03→21:45)
[2018-12-05] MEDS ORDERED: Aspirin 81 mg Enteric Coated Tablet PO SCH (18:45)
--- NOTE | 2018-12-05 20:30 | CON ---
DATE OF CONSULTATION: 12/05/2018 REASON FOR CONSULTATION: Review for consultation and medical management. HISTORY OF PRESENT ILLNESS: A 78-year-old male with past medical history significant for diastolic heart failure, coronary artery disease, COPD, hypertension, and paroxysmal atrial fibrillation, who was admitted by piecer like [facility] for ablation, which he successfully had on December 04. Rapid Response was however called for the patient early this morning due to acute worsening of shortness of breath. The patient was started on BiPAP and was subsequently transferred to the ICU for further evaluation and treatment. Since transfer to the ICU, the patient was treated with diuretics with good effect and respiratory status has improved and he is currently off BiPAP and saturating well on nasal cannula oxygen supplementation. The patient denied chest pain, palpitation, diaphoresis, nausea, vomiting, change in bowel habit, abdominal pain, dizziness, but he admitted to leg swelling. PAST MEDICAL HISTORY: 1. Obstructive sleep apnea, on CPAP at home. 2. Coronary artery disease with negative stress test. 3. Chronic diastolic heart failure. 4. Chronic obstructive pulmonary disease. 5. Hypertension. 6. Paroxysmal atrial flutter/fibrillation. 7. BPH. PAST SURGICAL HISTORY: Significant only for benign cyst removal from the right armpit. FAMILY HISTORY: The patient lives with spouse at home. The patient used to smoke, but quit about 12 years ago. HOME MEDICATIONS: 1. Eliquis. 2. Crestor. 3. Nexium. 4. Torsemide. 5. Amlodipine. 6. Cardizem 30 mg q.i.d. 7. Dutasteride 0.5 mg daily. 8. DuoNeb p.r.n. 9. Metolazone 2.5 mg daily. 10. Dulera 200 mcg/5 mcg inhalation 2 puffs b.i.d. 11. Xanax 0.5 mg b.i.d. ALLERGIES: NO KNOWN DRUG ALLERGIES REPORTED. REVIEW OF SYSTEMS: 12-point review of systems performed was negative other than pertinent positives and negatives included in the history of present illness. PHYSICAL EXAMINATION: VITAL SIGNS: During the Rapid Response, the patient was noted to have the following vitals. SpO2 is 62, respiratory rate 28, blood pressure 117/57, and heart rate of 111. Currently, vitals at 5:30 p.m. as follows: Blood pressure 112/71, heart rate 89, respiratory rate 16, SpO2 of 90% on 3 L nasal cannula oxygen supplementation. GENERAL: Elderly male, in mild respiratory distress. Afebrile, anicteric, acyanotic. HEENT: Normocephalic, atraumatic. Pupils are equal and reactive to light. Oral mucosa is moist. NECK: Supple, nontender with full range of motion. No JVD was appreciated. CARDIOVASCULAR: Regular rhythm with frequent ectopy. Normal heart sounds one and two. RESPIRATORY: Fair air entry bilateral with prolonged expiration and some transmitted sounds. No obvious crackle was appreciated. Work of breathing is increased. GI: Abdomen is full, soft, nontender, nondistended with normal bowel sounds. EXTREMITIES: Grossly normal looking, atraumatic with no edema or erythema. NEUROLOGIC: Conscious, alert, oriented x3 with appropriate mental status. Cranial nerves 2 through 12 are intact. The patient moves all extremities. There is no tremor or involuntary movements. LABORATORY DATA: BMP done earlier this morning prior to transfer to the ICU showed sodium 139, potassium 4.1, chloride 107, CO2 of 20, BUN 32, creatinine 1.78, glucose 124. Following the Rapid Response, troponin obtained was 14.528. Chest x-ray obtained after the Rapid Response showed increased interstitial vascular congestion, which is more prominent compared to prior. ASSESSMENT: 1. Acute respiratory failure with hypoxia: This is most likely due to flash pulmonary edema from acute congestive heart failure superimposed on chronic obstructive pulmonary disease with possible acute exacerbation. 2. Acute diastolic heart failure with or without acute systolic component: This most likely due to fluid overload given IV fluid therapy during procedure of ablation. Acute ayu-AI-dpqesmbcz myocardial infarction is another concern given markedly elevated troponin. The patient, however, denied any chest discomfort, but does not rule out acute cun-BV-fzjpepefl myocardial infarction. 3. Chronic obstructive pulmonary disease with acute exacerbation: The patient has history of chronic obstructive pulmonary disease and uses bronchodilators at home and was noted to be wheezing. Pulmonary has been consulted. 4. Paroxysmal atrial fibrillation/flutter, status post ablation. The patient currently is in sinus rhythm with frequent ectopy. Cardiology and EPS are following. 5. Obstructive sleep apnea, on CPAP. 6. Chronic kidney disease stage 3: Renal function seems to have been given by creatinine level obtained prior to this event. The patient then has received diuretics. 7. Elevated troponin: Acute non-ST elevation myocardial infarction or due to recent ablation. Cardiology is following. 8. History of hypertension: Blood pressure control is acceptable currently. 9. History of benign prostatic hypertrophy. We will continue Flomax and dutasteride. PLAN: 1. We will continue bronchodilator, steroid, and oxygen supplementation as well as noninvasive respiratory support as needed. 2. We will provide BiPAP at night while asleep. 3. We will get serial troponin. 4. We will also start the patient on aspirin. 5. We will check renal function in the morning. 6. We will continue diuretics and monitor daily weights as well as intake and output. 7. DVT prophylaxis has been addressed. The patient is on Eliquis. 8. Diet as tolerated. 9. Ethics: The patient is full code. The spouse is the surrogate decision maker. Many thanks for involving us in the care of this patient. We will follow along with you. Job ID: [id number]
[2018-12-05 20:42] LABS: Critical Call Chem Troponin I RESULT DECREASING; Troponin I 12.947 ng/mL (< 0.028)
[2018-12-05] MEDS ORDERED: Rosuvastatin 10 MG TAB PO SCH (21:00)
[2018-12-05] MEDS ORDERED: PROVENTIL INHALER 6.7 G (200 INHALATIONS) INH PRN (21:21)
[2018-12-05] MEDS ORDERED: ALPRAZolam 0.5 MG TAB PO PRN (21:22)
[2018-12-05] MEDS: Rosuvastatin 10 MG TAB PO SCH (21:52)
[2018-12-05] MEDS ORDERED: Morphine 4 MG/ML VIAL SLOW IVP PRN (22:10)
[2018-12-06] MEDS: Sucralfate 1 GM TAB PO SCH ×4 (03:15→18:00)
[2018-12-06] MEDS: Apixaban 5 MG TAB PO SCH ×3 (03:16→20:13)
[2018-12-06] MEDS: Furosemide 40 MG/4 ML VIAL SLOW IVP SCH ×3 (03:16→20:13)
[2018-12-06] MEDS: Tamsulosin HCl 0.4 MG CAP PO SCH ×3 (03:17→20:13)
[2018-12-06 05:11] LABS: #Lymphocytes 0.5 thou/uL (1.20-3.40); #Monocytes 0.3 thou/uL (0.11-0.59); #Neutrophils 11.3 thou/uL (1.40-6.50); %Eosinophils 0.1 % (0.0-10.0); %Lymphocytes 3.8 % (21.0-51.0); %Monocytes 2.6 % (0.0-10.0); %Neutrophils 93.5 % (42.0-75.0); Hemoglobin 10.1 g/dL (14.0-18.0); Mean Corpuscular HGB CONC 32.2 g/dL (32.0-36.0); Mean Corpuscular Hemoglobin 28.1 pg (27.0-31.0); Mean Corpuscular Volume 87.4 fL (78.0-98.0); Mean Platelet Volume 8.2 fL (7.4-10.4); Platelet Count 248 thou/uL (130-400); RBC Distribution Width 17.1 % (11.5-14.5); Red Blood Cell (RBC) Count 3.59 mill/uL (4.70-6.10); White Blood Cell (WBC) Count 12.1 thou/uL (4.8-10.8)
[2018-12-06 05:32] LABS: ALT (SGPT) 15 U/L (8-55); AST (SGOT) 39 U/L (5-34); Albumin 3.2 g/dL (3.4-4.8); Alkaline Phosphatase 56 U/L (40-150); Anion Gap 16 mmol/L (10-20); BUN (Urea Nitrogen) 40 mg/dL (8.4-25.7); Bilirubin, Total 0.4 mg/dL (0.2-1.2); Calc. Creatinine Clearance 40 mL/min (70-130); Carbon Dioxide 22 mmol/L (23-31); Chloride 103 mmol/L (98-107); Estimated GFR-MDRD 31; Globulin 2.2 g/dL (2.4-3.5); Glucose 172 mg/dL (83-110); Potassium 3.8 mmol/L (3.5-5.1); Protein, Total 5.4 g/dL (5.8-8.1); Sodium 137 mmol/L (136-145)
[2018-12-06] MEDS: Mometasone/Formoterol 120 PUFF INHALER INH SCH ×2 (06:27→19:02)
[2018-12-06] MEDS ORDERED: predniSONE 5 MG TAB PO SCH (08:00)
[2018-12-06] MEDS: Potassium Chloride 20 MEQ TAB PO SCH (08:35)
[2018-12-06] MEDS: Aspirin 81 mg Enteric Coated Tablet PO SCH (08:36)
[2018-12-06] MEDS: Metolazone 2.5 MG TAB PO SCH (08:36)
[2018-12-06] MEDS: Losartan 25 MG TAB PO SCH (08:37)
[2018-12-06] MEDS: Dutasteride 0.5 MG CAP PO SCH (08:37)
[2018-12-06] MEDS ORDERED: Clopidogrel Bisulfate 75 MG TAB ONE (08:45)
[2018-12-06] MEDS ORDERED: Aspirin 81 mg Enteric Coated Tablet PO SCH (09:00)
[2018-12-06] MEDS ORDERED: Losartan 25 MG TAB PO SCH (09:00)
[2018-12-06] MEDS ORDERED: methylPREDNISolone Sod Succ 40 MG VIAL IVP SCH ×3 (09:00)
[2018-12-06] MEDS: Colchicine 0.3 MG TAB PO SCH (11:19)
[2018-12-06] MEDS: methylPREDNISolone Sod Succ 40 MG VIAL IVP SCH (14:39)
--- NOTE | 2018-12-06 19:07 | PDOC.PN ---
- Subjective Encounter Start Date: 12/06/18 Encounter Start Time: 19:05 Subjective: Patient admitted for atrial ablation but developed acute resp distress late -: Complains of coughing up bloody sputum -: no fever or chest pain. Still SOB - Objective Vital Signs & Weight: Vital Signs (12 hours) Temp Pulse Resp Pulse Ox 12/06/18 19:03 93 L 12/06/18 19:02 93 L 12/06/18 19:01 81 18 93 L 12/06/18 17:00 97.6 F 12/06/18 15:26 94 22 H 95 12/06/18 12:00 97.9 F 12/06/18 10:39 90 19 95 12/06/18 08:00 98.1 F 88 L Weight Weight 216 lb 11.43 oz Most Recent Monitor Data Heart Rate from ECG 84 NIBP 111/54 NIBP BP-Mean 73 Respiration from ECG 19 SpO2 93 I&O: 12/05/18 12/06/18 12/07/18 06:59 06:59 06:59 Intake Total 613 461 6338 Output Total 1700 1385 886 Balance -950 -635 494 Result Diagrams: 12/06/18 04:25 12/06/18 04:25 Phys Exam - Physical Examination elderly male in mild respiratory distress. afebrile. HEENT: PERRLA, sclera anicteric Neck: supple fair air entry with scattered rhonchi and few transmitted sound regular rhythm with frequent ectopic Gastrointestinal: soft, non-tender, no distention, positive bowel sounds trace edema of the legs Neurological: moves all 4 limbs Psychiatric: A&O x 3 Dx/Plan (1) COPD exacerbation Code(s): J44.1 - CHRONIC OBSTRUCTIVE PULMONARY DISEASE W (ACUTE) EXACERBATION Status: Acute (2) NNEKA (acute kidney injury) Code(s): N17.9 - ACUTE KIDNEY FAILURE, UNSPECIFIED Status: Acute Comment: creatinine improved to 5.27 today, likely due ATN. (3) Acute and chronic respiratory failure with hypoxia Code(s): J96.21 - ACUTE AND CHRONIC RESPIRATORY FAILURE WITH HYPOXIA Status: Acute Comment: Improved (4) Acute on chronic diastolic (congestive) heart failure Code(s): I50.33 - ACUTE ON CHRONIC DIASTOLIC (CONGESTIVE) HEART FAILURE Status : Acute (5) Atrial fibrillation Code(s): I48.91 - UNSPECIFIED ATRIAL FIBRILLATION Status: Chronic Comment: Intermittent. Has been in sinus. Historically only had it when having BRAD. Therapeutic on INR and rate is appropriate to the clinical scenario. (6) HTN (hypertension) Code(s): I10 - ESSENTIAL (PRIMARY) HYPERTENSION Status: Chronic Comment: controlled (7) Elevated troponin Code(s): R74.8 - ABNORMAL LEVELS OF OTHER SERUM ENZYMES Status: Acute (8) Physical deconditioning Code(s): R53.81 - OTHER MALAISE Status: Acute - Plan Continue diuretics. -: Rate control as per cardiology -: Get sputum culture -: Start oral doxycycline -: PT/OT * .
[2018-12-06] MEDS: Doxycycline 100 MG CAP PO SCH (20:13)
[2018-12-06] MEDS: Rosuvastatin 10 MG TAB PO SCH (20:13)
--- NOTE | 2018-12-06 20:17 | PRG ---
DATE OF SERVICE: 12/06/2018 SUBJECTIVE: Bin Mart says he feels a little bit better, but is not back to his baseline. OBJECTIVE: VITAL SIGNS: Heart rate in the 90s, respiratory rate in the 20s, and oximetry is 93% on a cannula. LUNGS: Still remarkable for diffuse wheezes. HEART: Regular rhythm. ABDOMEN: Soft. IMPRESSION: 1. Diastolic heart failure, clinically improved. 2. 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 PLAN: Continue to monitor his intake and output. Continue nebulized treatments. Continue with IV steroids. We will follow the other physicians caring for him. Job ID: [id number]
--- NOTE | 2018-12-07 01:09 | CON ---
DATE OF CONSULTATION: 12/05/2018 This is a 12/05/2018 pulmonary consult that was dictated yesterday, but I guess it did not record. HISTORY OF PRESENT ILLNESS: Mr. Mart is a pleasant gentleman who followed in my office for his significant chronic obstructive pulmonary disease. He was admitted for an atrial fibrillation ablation. Marco jeffrey was called in the morning. He was transferred to critical care unit. Chest radiograph shows pulmonary edema. PAST MEDICAL HISTORY: Remarkable for, 1. Recent atrial flutter which led to his ablation procedure. 2. Diastolic heart failure. 3. History of coronary artery disease. 4. History of normal stress test. 5. History of hypertension. 6. History of anticoagulation for his atrial arrhythmias. 7. Lipid disorder. FAMILY HISTORY: Negative for lung disease in early age. SOCIAL HISTORY: He is a nonsmoker and nondrinker. REVIEW OF SYSTEMS: Otherwise negative. He says he is feeling better after a dose of Lasix earlier. PHYSICAL EXAMINATION: VITAL SIGNS: His heart rate is 81. He is in no distress, oximetry was 93, blood pressure 130/70. HEAD AND NECK: Unremarkable. LUNGS: Remarkable for diffuse mild wheezes. He had crackles in both lung bases. HEART: Regular rhythm. S1 and S2 are normal. ABDOMEN: Soft and nontender. EXTREMITIES: Without clubbing, cyanosis, or edema. LABORATORY DATA: Sodium 139, potassium 4.1, chloride 107, bicarb 20, BUN 32, creatinine 1.78. Blood gas 7.2, pCO2 of 46, and pO2 of 39. Repeat blood gas 7.36, pCO2 of 37, pO2 of 188 on BiPAP. He was eventually taken off BiPAP. He did not urinate, so we ultrasounded his bladder which showed between 300 mL to 400 mL urine in his bladder, so a De was placed. He has a history of BPH. He is given another 80 mg of Lasix and re-evaluated in the afternoon and said he was feeling much better. He still was wheezing, so steroids were added. We will continue to follow the other physicians caring for him. IMPRESSION: 1. Cardiogenic pulmonary edema/diastolic dysfunction. 2. Status post atrial flutter ablation. 3. Chronic obstructive pulmonary disease. 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 Some of this is chronic obstructive pulmonary disease. I would be happy to follow the other physicians caring for him. TIME SPENT: Critical care time 30 minutes. Job ID: [id number] MTDD
[2018-12-07] MEDS: methylPREDNISolone Sod Succ 40 MG VIAL IVP SCH ×4 (02:32→21:34)
[2018-12-07] MEDS: Colchicine 0.3 MG TAB PO SCH ×3 (02:32→21:35)
[2018-12-07] MEDS: Sucralfate 1 GM TAB PO SCH ×5 (02:32→23:20)
[2018-12-07 05:58] LABS: #Lymphocytes 0.4 thou/uL (1.20-3.40); #Monocytes 0.4 thou/uL (0.11-0.59); #Neutrophils 8.4 thou/uL (1.40-6.50); %Basophils 0.1 % (0.0-1.0); %Monocytes 4.6 % (0.0-10.0); %Neutrophils 91.4 % (42.0-75.0); Hemoglobin 9.6 g/dL (14.0-18.0); Mean Corpuscular HGB CONC 31.9 g/dL (32.0-36.0); Mean Corpuscular Hemoglobin 27.5 pg (27.0-31.0); Mean Corpuscular Volume 86.3 fL (78.0-98.0); Mean Platelet Volume 8.1 fL (7.4-10.4); Platelet Count 257 thou/uL (130-400); RBC Distribution Width 17.1 % (11.5-14.5); Red Blood Cell (RBC) Count 3.47 mill/uL (4.70-6.10); White Blood Cell (WBC) Count 9.2 thou/uL (4.8-10.8)
[2018-12-07 06:21] LABS: Anion Gap 13 mmol/L (10-20); BUN (Urea Nitrogen) 53 mg/dL (8.4-25.7); Calc. Creatinine Clearance 39 mL/min (70-130); Calcium 8.9 mg/dL (7.8-10.44); Carbon Dioxide 25 mmol/L (23-31); Chloride 100 mmol/L (98-107); Estimated GFR-MDRD 30; Glucose 203 mg/dL (83-110); Potassium 3.5 mmol/L (3.5-5.1); Sodium 134 mmol/L (136-145)
[2018-12-07 06:24] LABS: Critical Call Chem Troponin I RESULT DECREASING; Troponin I 2.875 ng/mL (< 0.028)
[2018-12-07] MEDS: Mometasone/Formoterol 120 PUFF INHALER INH SCH ×2 (07:00→20:03)
--- NOTE | 2018-12-07 09:01 | PRG ---
DATE OF SERVICE: 12/07/2018 SUBJECTIVE: The patient is seen and examined at the bedside. He is feeling better. He still has some chest pressure postprocedure. OBJECTIVE: VITAL SIGNS: Blood pressure is 123/66, pulse is 81, respiratory rate is 17, O2 saturation is 98%. HEENT: His head is atraumatic and normocephalic. Eyes are PERRLA. Sclerae nonicteric. Oral mucosa is moist. NECK: Supple. LUNGS: Emphysematous with mild to moderate wheezing at the left base. HEART: S1, S2 normal. No S3. No S4. ABDOMEN: Soft, nontender, nondistended. EXTREMITIES: No clubbing, cyanosis, or edema. NEUROLOGIC: He is alert and oriented x4. There is no any motor or sensory deficits present. Cranial nerves are intact. LABORATORY DATA: Showed white count of 9.2, hemoglobin 9.6, hematocrit 30.0, platelet count is 257,000. Sodium of 134, potassium 3.5, chloride 100, CO2 of 25, BUN 53, creatinine 2.13. Troponin I 2.875. IMPRESSION: 1. Flash pulmonary edema, status post BiPAP treatment, resolved. 2. Acute on chronic diastolic heart failure. 3. Status post ablation of atrial fibrillation. 4. Renal failure. This is acute on chronic. His creatinine was up to 1.49 in September 2018. PLAN: Continue his IV steroids. Continue his inhaled steroids. Continue his colchicine, aspirin, and apixaban. Continue doxycycline. The patient will be seen by straddle bug operator and helicopter technician today and they will make decision whether he can be discharged home today. I believe he will stay additional day and we will start mobilizing him making sure that he is ready to be discharged. Job ID: [id number]
[2018-12-07] MEDS: Tamsulosin HCl 0.4 MG CAP PO SCH ×2 (09:09→21:33)
[2018-12-07] MEDS: Metolazone 2.5 MG TAB PO SCH (09:09)
[2018-12-07] MEDS: Losartan 25 MG TAB PO SCH (09:09)
[2018-12-07] MEDS: Apixaban 5 MG TAB PO SCH ×2 (09:09→21:32)
[2018-12-07] MEDS: Doxycycline 100 MG CAP PO SCH ×2 (09:09→21:34)
[2018-12-07] MEDS: Potassium Chloride 20 MEQ TAB PO SCH (09:10)
[2018-12-07] MEDS: Aspirin 81 mg Enteric Coated Tablet PO SCH (09:10)
[2018-12-07] MEDS: Dutasteride 0.5 MG CAP PO SCH (09:10)
[2018-12-07] MEDS: Furosemide 40 MG/4 ML VIAL SLOW IVP SCH ×2 (09:11→21:34)
[2018-12-07] MEDS ORDERED: Clopidogrel Bisulfate 75 MG TAB ONE (09:14)
--- NOTE | 2018-12-07 09:14 | RAD ---
PORTABLE AP CHEST: Date: 12/07/18 HISTORY: On ventilator. COMPARISON: 12/05/18. FINDINGS: Again noted are increased interstitial opacities throughout the lungs bilaterally. Cardiac silhouette is enlarged and pulmonary vasculature also remains mildly increased. No consolidation or pleural flu id is appreciated. Vascular calcifications noted in thoracic aorta. Remote posterolateral left-sided rib fracture is again seen. No interval change from prior exam. IMPRESSION: 1. Cardiomegaly with pulmonary vascular congestion suggesting mild CHF. Clinical correlation is abraham mmended. 2. Increased interstitial densities bilaterally which may be related to an element of mild pulmonary edema. 3. Remote lateral left-sided rib fracture. POS: [facility]
--- NOTE | 2018-12-07 15:10 | PDOC.CTH ---
Cardiology Progress Note - Subjective The pt seen and examined. No overnight events. No cardiac complaints. - Objective Vital Signs Temp Pulse Resp BP Pulse Ox 12/07/18 12:03 98.2 F 80 20 128/60 93 L 12/07/18 10:40 98 12/07/18 10:38 76 17 98 12/07/18 08:00 97.4 F L 96 12/07/18 06:42 81 17 98 12/07/18 04:00 97.5 F L 12/07/18 03:11 72 11 L 97 12/07/18 03:10 99 Weight 218 lb 0.595 oz 12/06/18 12/07/18 12/08/18 06:59 06:59 06:59 Intake Total 750 1820 540 Output Total 1385 2431 275 Balance -635 -611 265 - Physical Examination General/Neuro: alert & oriented x3 Neck: no JVD present Lungs: other: (ex wheezing) Heart: RRR Abdomen: soft Extremities: other: (2+ pitting BLE edema) - Telemetry Telemetry Rhythm: SR - Labs Result Diagrams: 12/07/18 05:23 12/07/18 05:23 Troponin/CKMB Troponin I 2.875 ng/mL (< 0.028) H* 12/07/18 05:23 - Assessment/Plan 1. S/p Afib/aflutter ablation on 12/04/2018 - remains in SR; on Diltiazem 30mg QID and Eliquis 5mg BID; 2. COPD exacerbation - stable with 4LNC, that he is on at home. Managed by pipelines supervisor 3. Acute on Chronic diastolic HF - on Lasix 40mg BID and ARB; not on BBlocker due to severe COPD 4. HTN - stable 5. NNEKA - slightly worsen today MAR reviewed Review of Systems - Review of Systems EENTM: reports: no symptoms reported Respiratory: reports: shortness of breath, SOB with excertion Cardiac (ROS): reports: no symptoms reported ABD/GI: reports: no symptoms reported : reports: no symptoms reported Musculoskeletal: reports: no symptoms reported Skin: reports: no symptoms reported
[2018-12-07] MEDS: Rosuvastatin 10 MG TAB PO SCH (21:34)
[2018-12-08] MEDS: Sucralfate 1 GM TAB PO SCH ×4 (06:12→23:28)
[2018-12-08] MEDS: methylPREDNISolone Sod Succ 40 MG VIAL IVP SCH ×3 (06:12→20:37)
[2018-12-08] MEDS: Mometasone/Formoterol 120 PUFF INHALER INH SCH ×2 (07:44→18:44)
--- NOTE | 2018-12-08 08:15 | RAD ---
SINGLE VIEW CHEST: Date: 12/08/18 COMPARISON: 12/07/18. HISTORY: Ventilated patient with respiratory failure. FINDINGS: Single view of the chest shows a cardiomediastinal silhouette which is upper limits of normal in size . Atherosclerotic calcifications in the aorta. There is no evidence of consolidation, mass, or pleura l effusion. IMPRESSION: No evidence of acute cardiopulmonary disease. POS: [facility]
[2018-12-08] MEDS: Metolazone 2.5 MG TAB PO SCH (08:19)
[2018-12-08] MEDS: Potassium Chloride 20 MEQ TAB PO SCH (08:19)
[2018-12-08] MEDS: Dutasteride 0.5 MG CAP PO SCH (08:20)
[2018-12-08] MEDS: Aspirin 81 mg Enteric Coated Tablet PO SCH (08:20)
[2018-12-08] MEDS: Apixaban 5 MG TAB PO SCH ×2 (08:20→20:36)
[2018-12-08] MEDS: Tamsulosin HCl 0.4 MG CAP PO SCH ×2 (08:20→20:36)
[2018-12-08] MEDS: Losartan 25 MG TAB PO SCH (08:21)
--- NOTE | 2018-12-08 09:35 | PRG ---
DATE OF SERVICE: 12/08/2018 SUBJECTIVE: Mr. Mart is feeling better today. His breathing is markedly improved. OBJECTIVE: VITAL SIGNS: His blood pressure is 124/64, pulse is in the mid 90s to 100 and sinus. LUNGS: Clear. I do not hear any wheezing at all. CARDIAC: Normal S1, normal S2. ABDOMEN: Soft and nontender. EXTREMITIES: No edema. ASSESSMENT: 1. Status post atrial fibrillation/ablation. 2. Diastolic heart failure, improved. 3. Chronic obstructive pulmonary disease. 4. Increased troponin level, thought to be related to the extensive ablation. 5. Mild hypokalemia, potassium 3.5. PLAN: 1. Given a single dose of potassium. 2. Reduce the furosemide. 3. Probably home tomorrow if he is doing well. Job ID: [id number]
[2018-12-08] MEDS: Colchicine 0.3 MG TAB PO SCH ×2 (09:48→23:28)
[2018-12-08] MEDS: Furosemide 40 MG/4 ML VIAL SLOW IVP SCH (09:48)
[2018-12-08] MEDS: Doxycycline 100 MG CAP PO SCH ×2 (09:48→20:37)
--- NOTE | 2018-12-08 10:06 | CON ---
DATE OF CONSULTATION: 12/05/2018 HISTORY OF PRESENT ILLNESS: Bin Mart is a 78-year-old male, who I follow in my office for asthmatic bronchitis. He was admitted for ablation. He had a code green call this morning for shortness of breath. He subsequently was transferred to the unit, placed on BiPAP, and BiPAP was eventually removed. Lasix was ordered, but he was unable to void with close to 400 mL in his bladder, so a De has been placed. He did void after De was placed, and he was given another dose of 80 mg of Lasix, and now says he is feeling better. He is a little bit bronchospastic, so he has received a nebulizer treatment and was started on steroids this afternoon. He was examined multiple times by me today. PAST MEDICAL HISTORY: Remarkable for, 1. Recent admission for COPD. 2. History of chronic kidney disease. 3. Hypertension. 4. History of knee surgery. MEDICATIONS: Prior to admission, he is on, 1. Losartan. 2. Metoprolol. 3. Amlodipine. 4. Crestor. 5. Nexium. 6. Potassium. 7. Albuterol. 8. Dulera. SOCIAL HISTORY: He is a nonsmoker and nondrinker. ALLERGIES: HE HAS NO DRUG ALLERGIES. FAMILY HISTORY: Negative for lung disease in early age. REVIEW OF SYSTEMS: 10 point review of systems completed, otherwise negative. PHYSICAL EXAMINATION: GENERAL: He is in no distress. He was at 30 degrees in bed, says he was feeling better. VITALS: Heart rate in the 90s. He is in sinus rhythm intermittently and then has sinus pauses. At this time, blood pressure is 112/68 and oximetry is 93%. HEENT: Pupils are equal. Sclerae are anicteric. NECK: Supple. LUNGS: Remarkable for faint wheezes. He is not using accessory muscles. He looks this afternoon much better than he looked this morning. HEART: Regular rhythm. ABDOMEN: Soft and nontender. EXTREMITIES: Without clubbing, cyanosis, or edema. LABORATORY DATA: White count 14.1, hemoglobin 11.6, and platelets 287. Sodium 139, chloride 107, and bicarb 20. Potassium 4.1, BUN 32, and creatinine 1.78. DIAGNOSTIC STUDIES: Chest radiograph shows pulmonary edema. IMPRESSION: 1. Diastolic dysfunction after an atrial fibrillation ablation with pulmonary edema, improved. 2. Underlying asthmatic bronchitis. Some of this may be cardiac asthma. PLAN: Nebulized treatments, steroids, negative fluid balance, and diuretics. TIME SPENT: This was a 70-minute consult, with greater than 50% of the time spent on the unit coordinating care. Job ID: [id number] MTDD
--- NOTE | 2018-12-08 11:15 | PRG ---
DATE OF SERVICE: 12/08/2018 SUBJECTIVE: Mr. Mart was evaluated in the ICU. He had no complaints. He said he wanted to go home. OBJECTIVE: VITAL SIGNS: He is afebrile. Heart rate is 102, respiratory rate was in the 20s. His oximetry is 93% to 94% on 4 L cannula and blood pressure 119/ 57. LUNGS: Remarkable for diffuse wheezes, moving more air today. HEART: Regular rhythm. ABDOMEN: Soft and nontender. IMPRESSION: 1. Status post atrial flutter ablation. 2. Diastolic dysfunction. 3. Chronic obstructive pulmonary disease with mild bronchospasm. PLAN: Continue current care. He is stable to transfer out of the Critical Care Unit. Job ID: [id number] [facility]
--- NOTE | 2018-12-08 11:22 | PRG ---
DATE OF SERVICE: 12/08/2018 SUBJECTIVE: Mr. Mart is being evaluated after nebulized treatments. OBJECTIVE: VITAL SIGNS: This morning, he is afebrile. Heart rate is 87, respiratory rate 16, oximetry is 92% on 4 L cannula, blood pressure 119/57. LUNGS: Remarkable for improved wheezes bilaterally. HEART: Regular rhythm. ABDOMEN: Soft. IMPRESSION: 1. Diastolic heart failure, improving. 2. Chronic obstructive pulmonary disease, improved. Hopefully, he will be a candidate to go home in 24 to 48 hours. The only other issue at hand is his urinary retention. He had almost 400 mL in his bladder in the ICU with no sensation of the need to void, so he has a De in again. Job ID: [id number]
[2018-12-08] MEDS ORDERED: Potassium Chloride 20 MEQ TAB PO SCH (12:00)
--- NOTE | 2018-12-08 12:37 | PDOC.PN ---
- Subjective Encounter Start Date: 12/08/18 Encounter Start Time: 12:35 Subjective: unable to void, landaverde in - Objective MAR Reviewed: Yes Vital Signs & Weight: Vital Signs (12 hours) Temp Pulse Pulse Pulse Resp BP BP 12/08/18 12:27 98.2 F 93 19 12/08/18 12:06 95 16 12/08/18 11:17 98 98 111/57 L 109/53 L 12/08/18 08:16 97.9 F 102 H 20 12/08/18 07:34 12/08/18 07:31 97 16 12/08/18 04:23 97.4 F L 101 H 15 12/08/18 02:55 98 16 BP BP Pulse Ox Pulse Ox Pulse Ox 12/08/18 12:27 125/58 L 97 12/08/18 12:06 93 L 12/08/18 11:17 96 96 12/08/18 08:16 124/64 97 12/08/18 07:34 93 L 12/08/18 07:31 93 L 12/08/18 04:23 114/66 91 L 12/08/18 02:55 90 L Weight Weight 218 lb 0.595 oz Most Recent Monitor Data Heart Rate from ECG 80 NIBP 111/78 NIBP BP-Mean 89 Respiration from ECG 20 SpO2 96 I&O: 12/07/18 12/08/18 12/09/18 06:59 06:59 06:59 Intake Total 1820 1040 Output Total 2431 875 Balance -611 165 Result Diagrams: 12/07/18 05:23 12/07/18 05:23 Phys Exam - Physical Examination Neck: no JVD Respiratory: clear to auscultation bilateral Cardiovascular: RRR, no significant murmur Gastrointestinal: soft, non-tender, positive bowel sounds Musculoskeletal: no edema Dx/Plan (1) COPD exacerbation Code(s): J44.1 - CHRONIC OBSTRUCTIVE PULMONARY DISEASE W (ACUTE) EXACERBATION Status: Acute (2) Acute on chronic diastolic (congestive) heart failure Code(s): I50.33 - ACUTE ON CHRONIC DIASTOLIC (CONGESTIVE) HEART FAILURE Status : Acute (3) Obstructive uropathy Code(s): N13.9 - OBSTRUCTIVE AND REFLUX UROPATHY, UNSPECIFIED Status: Chronic (4) Atrial fibrillation Code(s): I48.91 - UNSPECIFIED ATRIAL FIBRILLATION Status: Chronic Plan: post ablation Comment: Intermittent. Has been in sinus. Historically only had it when having BRAD. Therapeutic on INR and rate is appropriate to the clinical scenario. (5) COPD (chronic obstructive pulmonary disease) Status: Chronic Qualifiers: COPD type: emphysema Emphysema type: unspecified Qualified Code(s): J43.9 - Emphysema, unspecified Comment: Continue Duonebs, Dulera, Prednisone (6) HTN (hypertension) Code(s): I10 - ESSENTIAL (PRIMARY) HYPERTENSION Status: Chronic Qualifiers: Hypertension type: essential hypertension Qualified Code(s): I10 - Essential (primary) hypertension Comment: controlled (7) BRAD (obstructive sleep apnea) Code(s): G47.33 - OBSTRUCTIVE SLEEP APNEA (ADULT) (PEDIATRIC) Status: Chronic Comment: on CPAP while asleep - Plan awaiting urology input -: cont ASA,diltiazem, lasix, cozaar -: on nebs, LABA, steroids * .
[2018-12-08] MEDS: Furosemide 20 MG/2 ML VIAL SLOW IVP SCH (14:56)
[2018-12-08] MEDS: Rosuvastatin 10 MG TAB PO SCH (20:36)
[2018-12-09] MEDS: Furosemide 20 MG/2 ML VIAL SLOW IVP SCH (05:51)
[2018-12-09] MEDS: methylPREDNISolone Sod Succ 40 MG VIAL IVP SCH ×2 (05:51→14:13)
[2018-12-09] MEDS: Sucralfate 1 GM TAB PO SCH ×3 (05:52→17:00)
[2018-12-09 06:20] LABS: Anion Gap 16 mmol/L (10-20); BUN (Urea Nitrogen) 77 mg/dL (8.4-25.7); Calc. Creatinine Clearance 38 mL/min (70-130); Calcium 8.9 mg/dL (7.8-10.44); Carbon Dioxide 25 mmol/L (23-31); Chloride 94 mmol/L (98-107); Estimated GFR-MDRD 29; Glucose 211 mg/dL (83-110); Potassium 3.1 mmol/L (3.5-5.1); Sodium 132 mmol/L (136-145)
[2018-12-09] MEDS: Mometasone/Formoterol 120 PUFF INHALER INH SCH ×2 (07:16→19:00)
[2018-12-09] MEDS: Dutasteride 0.5 MG CAP PO SCH ×2 (08:35→08:37)
[2018-12-09] MEDS: Aspirin 81 mg Enteric Coated Tablet PO SCH (08:36)
[2018-12-09] MEDS: Potassium Chloride 20 MEQ TAB PO SCH (08:36)
[2018-12-09] MEDS: Apixaban 5 MG TAB PO SCH ×2 (08:37→20:04)
[2018-12-09] MEDS: Metolazone 2.5 MG TAB PO SCH (08:37)
[2018-12-09] MEDS: Losartan 25 MG TAB PO SCH (08:37)
[2018-12-09] MEDS: Doxycycline 100 MG CAP PO SCH ×2 (08:37→20:04)
[2018-12-09] MEDS: Tamsulosin HCl 0.4 MG CAP PO SCH ×2 (08:37→20:04)
[2018-12-09] MEDS ORDERED: Potassium Chloride 20 MEQ TAB PO SCH ×2 (09:15→17:00)
[2018-12-09] MEDS: Colchicine 0.3 MG TAB PO SCH ×2 (09:29→20:08)
--- NOTE | 2018-12-09 09:30 | PRG ---
DATE OF SERVICE: 12/09/2018 SUBJECTIVE: Mr. Mart states he feels weak today. He has not really been up out of bed very much. His breathing has improved. He has no chest pain. OBJECTIVE: VITAL SIGNS: His blood pressure is 111/57, pulse is in the 70s with atrial flutter or atrial tachycardia with controlled rate. LUNGS: Clear. CARDIAC: Normal S1 and normal S2, but they are distant. ABDOMEN: Soft and nontender. EXTREMITIES: Warm and dry. PERTINENT LABORATORIES: His creatinine is 2.18 and potassium is 3.1. ASSESSMENT: 1. Status post extensive atrial fibrillation and flutter ablation. 2. Recurrent atrial flutter. 3. Diastolic heart failure, improved. 4. Stage 4 renal failure. 5. Probably somewhat volume depleted. 6. Reactive airway disease, stable, improved. 7. Hypokalemia. PLAN: 1. Replete potassium. 2. Stop metolazone. 3. No further diuretics today. 4. Hopefully will be home tomorrow, since he does feels too weak to go home today. Job ID: [id number]
--- NOTE | 2018-12-09 10:02 | CON ---
DATE OF CONSULTATION: REASON FOR CONSULT: Urinary retention. HISTORY OF PRESENT ILLNESS: Mr. Mart is a 78-year-old male known to me, status post cardiac ablation on December [address] Kuhn, subsequently admitted to ICU due to blood pressure issues, being diuresed by Cardiology. patient currently undergoing physical therapy, relates that he has had some issues with De catheter as it was placed by the primary service due to inability to void yesterday. I do not have records of the postvoid residual obtained with catheter placement. He is known to me with history of urinary retention, incomplete void. I did initially see the patient back in July 2018 as he had postvoid residual of 600 mL to 700 mL. He has been on Flomax twice a day and Avodart was initiated. Subsequent workup demonstrated no evidence of hydronephrosis. He has not had issues with recurrent UTI. He was previously admitted due to lower extremity weakness due to severe L4-L5 spinal stenosis. He did undergo cystoscopy, which demonstrated mild BPH component. Urodynamics was performed demonstrating normal sensation bladder , normal compliance. As he does have incomplete void, he desired to continue with clean intermittent catheterization 2 to 3 times a day p.r.n. for sensation of incomplete void. As the patient is currently admitted, he did not have an indwelling De catheter on arrival. He says his is at bedside, relates that he has not been cathing himself. He states that he has been double voiding with no sensation of incomplete void, however, PVR is not documented. Urology is consulted. His De catheter was placed due to inability to void. He denies dysuria or gross hematuria. PAST MEDICAL HISTORY: Hypertension, hypercholesteremia, COPD, history of urinary retention, history of acute kidney injury due to ATN, sleep apnea, atrial fibrillation, spontaneous pneumothorax, BPH, severe lumbar stenosis. SURGICAL HISTORY: Includes December 04 cardiac ablation, right shoulder cyst surgery, tonsillectomy, chest volume study 33 g. Cystoscopy with mild minimal BPH component with no stricture November 26, 2017. Urodynamic study demonstrates normal sensation, normal compliance, October 23, 2018. SOCIAL HISTORY: Negative for smoking. He is retired [employer]. ALLERGIES: NO KNOWN DRUG ALLERGIES. CURRENT MEDICATIONS: Include Proventil, DuoNeb, Xanax, Eliquis, baby aspirin, colchicine, Cardizem, , Avodart, Lasix, Cozaar, Zaroxolyn, morphine, K-Dur, Crestor, Carafate, Flomax b.i.d. PHYSICAL EXAMINATION: VITAL SIGNS: Stable. Afebrile. I's and O's, 1360 in and 2480 out, positive for bowel movement. GENERAL: The patient is in no acute distress, however, has conversational dyspnea. HEENT: Unremarkable. HEART: Regular rate. LUNGS: Clear. ABDOMEN: Soft, nontender, nondistended. Obese. : De catheter demonstrating clear dilute urine. EXTREMITIES: No cyanosis, clubbing or edema. PERTINENT LABORATORY DATA: Sodium 132, BUN 77, creatinine 2.18. His creatinine is variable from 2.7 to 2.3. IMPRESSION AND PLAN: Mr. Mart is a 78-year-old male with past medical history of; 1. Atrial fibrillation. 2. Chronic obstructive pulmonary disease. 3. Advanced age. 4. Severe lumbar stenosis. 5. History of mild benign prostatic hyperplasia on cystoscopy with incomplete void, previously on CIC, which appears the patient has discontinued over the last few months. Current admission due to atrial fibrillation, congestive heart failure/chronic obstructive pulmonary disease exacerbation. As the patient has issues ambulating, due to weakness with indwelling De catheter, recommend discontinuation of De as it can be issue with traumatic catheter removal. The patient does perform CIC's at home. While in-house, I will monitor his postvoid residual. Nursing orders provided for bladder rehab with CIC every 6 hours p.r.n. for postvoid residual 300 mL. UA, C and S to be obtained. Resume his BPH medications of Flomax b.i.d., Avodart. will follow on this admission. Job ID: [id number] [facility]
--- NOTE | 2018-12-09 11:02 | PDOC.PN ---
- Subjective Encounter Start Date: 12/09/18 Encounter Start Time: 11:01 Subjective: still weak, landaverde out - Objective MAR Reviewed: Yes Vital Signs & Weight: Vital Signs (12 hours) Temp Pulse Resp BP Pulse Ox 12/09/18 07:19 85 16 98 12/09/18 07:15 97.5 F L 89 16 132/70 98 12/09/18 04:00 97.6 F 73 20 130/64 96 12/09/18 03:01 92 16 94 L 12/08/18 23:20 85 16 93 L Weight Weight 217 lb 12.8 oz Most Recent Monitor Data Heart Rate from ECG 80 NIBP 111/78 NIBP BP-Mean 89 Respiration from ECG 20 SpO2 96 I&O: 12/08/18 12/09/18 12/10/18 06:59 06:59 06:59 Intake Total 1040 1360 Output Total 875 2480 Balance 165 -1120 Result Diagrams: 12/07/18 05:23 12/09/18 05:50 Additional Labs: Accuchecks 12/08/18 16:42 POC Glucose 245 H Phys Exam - Physical Examination Neck: no JVD Respiratory: clear to auscultation bilateral Cardiovascular: RRR, no significant murmur Gastrointestinal: soft, positive bowel sounds Musculoskeletal: no edema Dx/Plan (1) COPD exacerbation Code(s): J44.1 - CHRONIC OBSTRUCTIVE PULMONARY DISEASE W (ACUTE) EXACERBATION Status: Acute (2) Acute on chronic diastolic (congestive) heart failure Code(s): I50.33 - ACUTE ON CHRONIC DIASTOLIC (CONGESTIVE) HEART FAILURE Status : Acute (3) Obstructive uropathy Code(s): N13.9 - OBSTRUCTIVE AND REFLUX UROPATHY, UNSPECIFIED Status: Chronic (4) Atrial fibrillation Code(s): I48.91 - UNSPECIFIED ATRIAL FIBRILLATION Status: Chronic Comment: Intermittent. Has been in sinus. Historically only had it when having BRAD. Therapeutic on INR and rate is appropriate to the clinical scenario. (5) COPD (chronic obstructive pulmonary disease) Status: Chronic Qualifiers: COPD type: emphysema Emphysema type: unspecified Qualified Code(s): J43.9 - Emphysema, unspecified Comment: Continue Duonebs, Dulera, Prednisone (6) HTN (hypertension) Code(s): I10 - ESSENTIAL (PRIMARY) HYPERTENSION Status: Chronic Qualifiers: Hypertension type: essential hypertension Qualified Code(s): I10 - Essential (primary) hypertension Comment: controlled (7) BRAD (obstructive sleep apnea) Code(s): G47.33 - OBSTRUCTIVE SLEEP APNEA (ADULT) (PEDIATRIC) Status: Chronic Comment: on CPAP while asleep - Plan monitor voiding today -: PT today -: cont current meds , home tomorrow * .
[2018-12-09 12:13] LABS: Bilirubin Negative (Negative); Blood, Urine Small (Negative); Glucose, Urine (Dipstick) Negative (Negative); Leukocyte Moderate (Negative); Nitrite Negative (Negative); Protein, Urine (Dipstick) Negative (Neg-Trace); Urobilinogen 0.2 mg/dL (0.2-1.0)
[2018-12-09 12:14] LABS: Clarity Hazy (Clear)
[2018-12-09 12:31] LABS: Squamous Epithelial 0-3 HPF (0-3)
[2018-12-09 12:32] LABS: Bacteria/HPF None Seen HPF (None Seen); Hyaline Casts/LPF NONE SEEN LPF (0-3 Hyaline)
--- NOTE | 2018-12-09 19:23 | PRG ---
DATE OF SERVICE: 12/09/2018 SUBJECTIVE: Bin Mart says he is feeling better. He is ambulating with his walker, doing well. He apparently fell yesterday, but did not hit his head. He bent over to pick something up and just fell over. OBJECTIVE: VITAL SIGNS: He is afebrile, heart rate 73, respiratory rate 16, and oximetry is 94. LUNGS: Clear. HEART: Regular rhythm. ABDOMEN: Soft. IMPRESSION: 1. Status post atrial fibrillation, atrial flutter/ablation. 2. Status post fall. No injuries. His only complaint was both knees hurt where he hit. He never struck his head or neck. 3. Urinary retention. His De is out. 4. Chronic obstructive pulmonary disease, clinically improved. 5. Diastolic dysfunction with pulmonary edema. Upon admission to critical care unit, clinically stable. 6. Anticoagulation. 7. He is still on IV steroids. 8. His pulmonary functions improved dramatically. He can be switched to p.o. prednisone. Hopefully, he will be a candidate for discharge here in the near future. Job ID: [id number]
[2018-12-09] MEDS: Rosuvastatin 10 MG TAB PO SCH (20:04)
[2018-12-10] MEDS: Sucralfate 1 GM TAB PO SCH ×3 (00:40→11:04)
[2018-12-10 05:12] LABS: Anion Gap 17 mmol/L (10-20); BUN (Urea Nitrogen) 84 mg/dL (8.4-25.7); Calc. Creatinine Clearance 36 mL/min (70-130); Carbon Dioxide 26 mmol/L (23-31); Chloride 93 mmol/L (98-107); Estimated GFR-MDRD 28; Glucose 190 mg/dL (83-110); Potassium 3.6 mmol/L (3.5-5.1); Sodium 132 mmol/L (136-145)
[2018-12-10] MEDS: Mometasone/Formoterol 120 PUFF INHALER INH SCH (07:51)
[2018-12-10] MEDS ORDERED: predniSONE 20 MG TAB PO SCH (08:00)
--- NOTE | 2018-12-10 08:07 | PRG ---
DATE OF SERVICE: 12/10/2018 SUBJECTIVE: The patient is sleeping, easily arousable. at bedside. States that he has been voiding without significant issues, feels that he is emptying completely. OBJECTIVE: VITAL SIGNS: Stable. Afebrile. Urine output 2480. Voiding diary reviewed. PVR variable from 175, 56, 200. The patient did not require catheterization based on my parameters. ABDOMEN: Soft, nontender, nondistended. LABORATORY DATA: Creatinine is 2.3. UA demonstrates no bacteria. IMPRESSION AND PLAN: 1. Mr. Mart is a 78-year-old male with history of incomplete void. 2. History of benign prostatic hypertrophy. Continue dual medical therapy. Current admission due to congestive heart failure, chronic obstructive pulmonary disease exacerbation, status post atrial fibrillation ablation. From Urologic perspective, the patient may be discharged anytime, if cleared by Medicine and Pulmonary Service. He is to continue his Flomax b.i.d., Avodart as an outpatient. He has undergone previous workup with cystoscopy, urodynamics demonstrating normal compliance in storage. Currently, managed with dual medical therapy for incomplete void, minimal, not requiring catheterization at this time. The patient is fully aware of the indications for CIC p.r.n. with sensation of incomplete void. Followup appointment in chart with me. We will sign off. Call, if any questions or concerns. Job ID: [id number]
[2018-12-10] MEDS: Dutasteride 0.5 MG CAP PO SCH ×2 (08:09→08:12)
[2018-12-10] MEDS: Apixaban 5 MG TAB PO SCH (08:12)
[2018-12-10] MEDS: Losartan 25 MG TAB PO SCH (08:12)
[2018-12-10] MEDS: Potassium Chloride 20 MEQ TAB PO SCH (08:12)
[2018-12-10] MEDS: Doxycycline 100 MG CAP PO SCH (08:12)
[2018-12-10] MEDS: Tamsulosin HCl 0.4 MG CAP PO SCH (08:13)
[2018-12-10] MEDS: Colchicine 0.3 MG TAB PO SCH (09:30)
--- NOTE | 2018-12-10 10:17 | PRG ---
DATE OF SERVICE: 12/10/2018 SUBJECTIVE: Mr. Mart is feeling better today. His De catheter out, urinating well. OBJECTIVE: VITAL SIGNS: His blood pressure is 117/65 and it followed by 129/68 and pulse is in the 80s, it is atrial flutter on the monitor. LUNGS: Clear. I do not hear any wheezing. CARDIAC: Normal S1 and normal S2. ABDOMEN: Soft and nontender. EXTREMITIES: Still moderate edema. PERTINENT LABORATORY DATA: The creatinine is up to 2.3, potassium is 3.6, and BUN is 84. The patient did receive Zaroxolyn and furosemide early yesterday morning before these were discontinued. He did not receive any diuretics this morning, but did receive losartan. ASSESSMENT: 1. Diastolic heart failure, improved, probably mildly intravascular depleted. 2. Status post atrial fibrillation and atrial flutter ablation. He is now in atrial flutter with controlled rate. 3. Coronary artery disease with no evidence of ischemia on stress testing, but calcium in his coronary arteries. 4. Chronic obstructive pulmonary disease. PLAN: 1. He will go home on diltiazem 30 mg 3 times a day. 2. He is on prednisone. 3. Losartan 100 mg a day. He will skip tomorrow, then resume Saturday. 4. Basic metabolic on Saturday. 5. Potassium 20 mEq a day. 6. Skipped diuretics yesterday, I think he will be back on torsemide 20 mg twice a day on Saturday. Okay to me to be released home. The echocardiogram showed ejection fraction is normal. He has diastolic heart failure. Job ID: [id number]
--- NOTE | 2018-12-10 11:11 | DIS ---
DATE OF ADMISSION: 12/05/2018 DATE OF DISCHARGE: 12/10/2018 TRANSFER OF CARE PRIMARY CARE PROVIDER: Gabriel Mary MD. DISCHARGE DISPOSITION: Discharged home. FINAL DIAGNOSES: Acute respiratory failure with hypoxia, acute on chronic diastolic heart failure, chronic obstructive pulmonary disease, coronary artery disease without angina, elevated troponin secondary to recent atrial flutter ablation, acute kidney injury, atrial fibrillation, atrial flutter, hypertension, and obstructive sleep apnea. DISCHARGE MEDICINES: 1. Xanax 0.5 mg b.i.d. p.r.n. 2. Prednisone 20 mg a day for 4 days, then 10 mg a day. 3. Potassium chloride 20 mEq a day. 4. Colchicine 0.3 mg b.i.d. 5. Losartan 100 mg a day. 6. Protonix 40 mg a day. 7. Torsemide 20 mg p.o. b.i.d. 8. Prednisone. 9. Flomax 0.4 mg b.i.d. 10. Albuterol/ProAir HFA two puffs q.4 hours p.r.n. 11. Protonix 40 mg a day. 12. Proscar. 13. Avodart 0.5 mg a day. 14. Cardizem 30 mg twice a day. 15. Eliquis 5 mg b.i.d. 16. Crestor 10 mg a day. 17. Dulera two puffs b.i.d. ALLERGIES: NONE. CODE STATUS: Full. DIET: Heart healthy. PENDING AT TIME OF DISCHARGE: Nothing. HOSPITAL COURSE: The patient was admitted post atrial flutter ablation. The patient had a flash pulmonary edema. Consultations were obtained with Dr. Fadi Gonzalez, [facility] Jes[facility]s Shipman[facility] No procedures were done post ablation. He was transferred from to ICU, treated aggressively for flash pulmonary edema, BiPAP, Lasix. He improved rapidly. His initial ABG revealed a pH of 7.2, which improved to 7.36 with therapy. His chest x-ray on 12/05/2018 revealed interstitial edema. Admitting laboratory, creatinine 1.78, BUN 32. Troponins serially 14.5, 13, 2.9. Lytes were balanced. CBC; white count 12.1, hemoglobin 10.1, platelet count 248,000. Initial blood gas 7.20 pH, 39.4 O2, 46.8 CO2. The patient was treated aggressively with diuresis, nebs on 12/06/2018. The patient was breathing better, not to baseline. Chest still reveal diffuse wheezes. Diagnosis with acute diastolic heart failure, was continued on nebs, IV steroids. The patient improved steadily during the hospital stay. He was continued on Lasix and an ARB, not on a beta fuad for severe COPD. His renal status stabilized with a GFR of 30-40. He was eventually transitioned to p.o. medicines. An echocardiogram during admission demonstrated an EF of 60% to 65%. He has diastolic dysfunction. At the time of discharge, the patient's rhythm was still in atrial flutter with controlled ventricular response. His creatinine had gone up and diuresis is being held for 2 days. At the time of discharge, his creatinine is 2.3 with a baseline of approximately 2.1. The patient's chest is clear. The heart has an irregular rhythm. Vital signs are stable. He is being discharged off diuretics until 12/12/2018. He will have a basic metabolic profile done on 12/12/2018, which will be sent to Dr. Gonzalez who will review it. Prescriptions have been written. He has been asked to follow up with his PCP in one week. He will follow up with Dr. Gonzalez. Per his direction, it is possible he will need a cardioversion out of the atrial flutter if this does not resolve spontaneously. Forty five minutes spent preparing this discharge on Bin Mart. Job ID: [id number]
[2018-12-10 11:44] VITALS: BP 118/58; TEMP 97.6
[2018-12-12] MEDS ORDERED: Losartan 25 MG TAB PO SCH (09:00)
[2018-12-12] MEDS ORDERED: Torsemide 20 MG TAB PO SCH (09:00)
== END 2018-12-10 12:17 | disposition home or self-care (01) | DRG 273 ==
LOC: CCL 11:43 → 2SW 17:30 → CCU 12-05 06:26 → CCL 12-05 06:36 → 2NO 12-07 12:13
PROVIDERS: ADMIT Internal Medicine Cardiovascular Disease; ATTEND Internal Medicine Cardiovascular Disease
PROC: 02583ZZ Destruction of Conduction Mechanism, Percutaneous Approach (ICD-10-PCS; principal; 2018-12-04)
PROC: 02K83ZZ Map Conduction Mechanism, Percutaneous Approach (ICD-10-PCS; 2018-12-04)
PROC: 4A023FZ Measurement of Cardiac Rhythm, Percutaneous Approach (ICD-10-PCS; 2018-12-04)
PROC: 4A0234Z Measurement of Cardiac Electrical Activity, Percutaneous Approach (ICD-10-PCS; 2018-12-04)
PROC: 5A09357 Assistance with Respiratory Ventilation, Less than 24 Consecutive Hours, Continuous Positive Airway Pressure (ICD-10-PCS; 2018-12-04)
DX: I13.0 Hypertensive heart and chronic kidney disease with heart failure and stage 1 through stage 4 chronic kidney disease, or unspecified chronic kidney disease (principal); J96.01 Acute respiratory failure with hypoxia; I50.33 Acute on chronic diastolic (congestive) heart failure; J44.1 Chronic obstructive pulmonary disease with (acute) exacerbation; I48.4 Atypical atrial flutter; N17.9 Acute kidney failure, unspecified; I48.0 Paroxysmal atrial fibrillation; I25.10 Atherosclerotic heart disease of native coronary artery without angina pectoris; J44.9 Chronic obstructive pulmonary disease, unspecified; R74.8 Abnormal levels of other serum enzymes; N18.3 Chronic kidney disease, stage 3 (moderate); I08.1 Rheumatic disorders of both mitral and tricuspid valves; G47.33 Obstructive sleep apnea (adult) (pediatric); E87.6 Hypokalemia; N40.1 Benign prostatic hyperplasia with lower urinary tract symptoms; R33.8 Other retention of urine; R29.6 Repeated falls; Z87.891 Personal history of nicotine dependence; Z79.01 Long term (current) use of anticoagulants; Z79.52 Long term (current) use of systemic steroids
CPT/HCPCS: 36415; 36416; 71045; 76942; 80048; 80053; 81001; 82805; 83735; 84484; 85025; 85027; 85347; 85610; 85730; 87086; 93005; 93010; 93306; 93613; 93623; 93655; 93656; 93657; 93662; 94640; 94660; C1731; C1732; C1759; C1760; C1769; J1100; J1644; J1885; J1940; J2001; J2270; J2405; J2704; J2720; J2920; J2930; J3010; J7512; J7620

== ENCOUNTER 2018-12-25 10:35 | Outpatient (CLI) | payer MEDICARE, BC ==
--- NOTE | 2018-12-25 11:57 | RAD ---
PA AND LATERAL CHEST: History: Dyspnea. Comparison: 11-13-18 FINDINGS: Heart size is upper limits of normal. There are atherosclerotic changes of the aorta. Severe chronic lung changes are seen, stable. IMPRESSION: Chronic lung change. Stable chest. POS: T[facility]
== END 2018-12-25 10:36 | disposition home or self-care (01) ==
LOC: RAD 10:35
PROVIDERS: ATTEND Internal Medicine Critical Care Medicine
DX: R06.00 Dyspnea, unspecified (principal); J98.4 Other disorders of lung
CPT/HCPCS: 71046

== ENCOUNTER 2018-12-31 11:05 | Inpatient (IN) | payer MEDICARE, BC ==
[2018-12-31] MEDS ORDERED: Sodium Chloride 0.65% Nasal 44 ML BOT EA NARE PRN (12:11)
--- NOTE | 2018-12-31 12:56 | RAD ---
PORTABLE CHEST: History: COPD. Congestive heart failure. Comparison: 12-08-18, 12-25-18 FINDINGS: Heart size is borderline. Chronic lung changes are seen. Findings appear stable as compared to the pr ior study. IMPRESSION: Borderline heart size with chronic lung change, stable chest. POS: JENI
[2018-12-31 13:02] LABS: #Lymphocytes 0.5 thou/uL (1.20-3.40); #Monocytes 0.3 thou/uL (0.11-0.59); %Basophils 0.3 % (0.0-1.0); %Eosinophils 0.1 % (0.0-10.0); %Lymphocytes 7.6 % (21.0-51.0); %Monocytes 4.8 % (0.0-10.0); %Neutrophils 87.1 % (42.0-75.0); Hemoglobin 7.8 g/dL (14.0-18.0); Mean Corpuscular HGB CONC 31.9 g/dL (32.0-36.0); Mean Corpuscular Hemoglobin 27.5 pg (27.0-31.0); Mean Corpuscular Volume 86.2 fL (78.0-98.0); Mean Platelet Volume 7.4 fL (7.4-10.4); Platelet Count 266 thou/uL (130-400); RBC Distribution Width 16.7 % (11.5-14.5); Red Blood Cell (RBC) Count 2.84 mill/uL (4.70-6.10); White Blood Cell (WBC) Count 6.8 thou/uL (4.8-10.8)
[2018-12-31 13:23] LABS: Anion Gap 12 mmol/L (10-20); BUN (Urea Nitrogen) 51 mg/dL (8.4-25.7); Calc. Creatinine Clearance 0 mL/min (70-130); Calcium 8.9 mg/dL (7.8-10.44); Carbon Dioxide 28 mmol/L (23-31); Chloride 98 mmol/L (98-107); Estimated GFR-MDRD 23; Glucose 106 mg/dL (83-110); Potassium 3.9 mmol/L (3.5-5.1); Sodium 134 mmol/L (136-145)
[2018-12-31] MEDS ORDERED: Torsemide 20 MG TAB PO SCH (15:00)
[2018-12-31] MEDS: methylPREDNISolone Sod Succ 40 MG VIAL IVP SCH (17:37)
--- NOTE | 2018-12-31 18:48 | EKG ---
Test Reason : Blood Pressure : / mmHG Vent. Rate : 081 BPM Atrial Rate : 288 BPM P-R Int : 000 ms QRS Dur : 082 ms QT Int : 374 ms P-R-T Axes : 000 -04 006 degrees QTc Int : 434 ms Atrial flutter with variable A-V block Possible Inferior infarct , age undetermined Nonspecific ST-T changes Abnormal ECG When compared with ECG of 05-DEC-2018 22:18, (Unconfirmed) Atrial flutter has replaced Sinus rhythm Confirmed by DR. Jalen HANKINS ([id number]) on 12/31/2018 6:47:36 PM Referred By: LIDIA Confirmed By:DR. Jalen HANKINS
--- NOTE | 2018-12-31 20:32 | CON ---
DATE OF CONSULTATION: 12/31/2018 REASON FOR CONSULTATION: Shortness of breath, atrial flutter. HISTORY OF PRESENT ILLNESS: Mr. Mart is a very pleasant 78-year-old white gentleman, who comes to the hospital for shortness of breath. He was admitted by Dr. Shipman for what seems to be a COPD exacerbation. He was on antibiotics recently for a bronchitis or an upper airway infection. His breathing became worse, so he was evaluated today and admitted for possible COPD exacerbation. During the admission, EKG was done, and telemetry was monitored, and he was found to be in atrial flutter. He recently had atrial fibrillation ablation done by Dr. Kuhn. He had a pulmonary vein isolation as well as a left atrial appendage isolation. He was in atrial fibrillation and was kept on Eliquis. During his ablation, he had a left-sided atypical flutter as well as an atrial fibrillation flutter. Currently he seems to be an atypical flutter. His breathing is somewhat improved, but still struggling to breathe a little bit more. PAST MEDICAL HISTORY: 1. Diastolic heart failure. 2. Coronary artery disease. 3. COPD. 4. Hypertension. 5. Atrial fibrillation, status post ablation. 6. Atypical atrial flutter, status post ablation. OUTPATIENT MEDICATIONS: 1. Alprazolam. 2. Omnicef. 3. Prednisone 10 mg a day. 4. Torsemide 10 mg b.i.d. 5. Potassium chloride 20 mEq a day. 6. Dulera. 7. Ipratropium nebs. 8. Losartan 100 mg a day. 9. Eliquis 5 mg b.i.d. 10. Crestor 10 mg nightly. 11. Nexium. 12. Dutasteride. 13. Tamsulosin. 14. Diltiazem 30 mg q.i.d. ALLERGIES: ADHESIVE TAPE. SOCIAL HISTORY: No alcohol, tobacco, or drugs. FAMILY HISTORY: Noncontributory. REVIEW OF SYSTEMS: A 12-point review of systems was done and was found to be negative unless stated in the history of present illness. PHYSICAL EXAMINATION: VITAL SIGNS: Temperature 97.9, pulse 87, respiratory rate 18, saturating 91% on 3 L of nasal cannula, and blood pressure 122/69. GENERAL: Awake, alert, and oriented x3. No distress. HEENT: Normocephalic and atraumatic. NECK: Supple. LUNGS: Have reduced breath sounds bilaterally. CARDIOVASCULAR: S1 and S2. Irregular heart rate in the 90s to low 110s. ABDOMEN: Soft. Positive bowel sounds. EXTREMITIES: Trace edema. SKIN: Warm and dry. LABORATORY DATA AND DIAGNOSTIC STUDIES: Laboratory work was reviewed. CBC with a white count 6.8, hemoglobin is 7.8. His hemoglobin before the ablation was 11.6; after the ablation, it was 10.1, the expected drop of a point and half; a day later, it was 9.6; and now, it is 7.8. Chemistry with a BUN of 51, creatinine 2.65. His baseline creatinine is about 1.8 to 2.3. So, this is above his baseline, although he has been as high as 4 or 5 in the recent past. BNP was 160. EKG was reviewed, atrial flutter, variable AV block. ASSESSMENT: 1. Chronic obstructive pulmonary disease with acute exacerbation. 2. Atrial flutter, atypical. 3. Status post atrial fibrillation ablation, extensive ablation, and an atypical flutter ablation a month ago. 4. [id number] diastolic heart failure. PLAN: 1. Continue rate control for now. If he continues to be tachycardic despite p.o. calcium channel blockers, he may need a cardioversion. Would continue full anticoagulation for now. There is no evidence of obvious bleeding; however, his hemoglobin has dropped significantly in the last few weeks. He may need upper and lower endoscopy to evaluate for iron-deficiency anemia and GI bleeding. Currently, we will continue current medications for now. 2. We will ask Electrophysiology's input for now. 3. We will follow. Job ID: [id number]
[2018-12-31] MEDS ORDERED: Apixaban 5 MG TAB PO SCH (21:00)
[2018-12-31] MEDS: Rosuvastatin 10 MG TAB PO SCH (21:24)
--- NOTE | 2018-12-31 23:54 | HP ---
DATE: 12/31/2018 HISTORY OF PRESENT ILLNESS: Mr. Mart is a 78-year-old male with chronic obstructive pulmonary disease. He recently was in the hospital for an ablation procedure (atrial flutter) which led to admission in the ICU when he developed pulmonary edema. He required transiently noninvasive ventilation. Subsequently went out to the floor and became bronchospastic within a few days and was treated with steroids as well as diuresis and medication adjustments. He was discharged home, but was unable to fill his prescription for Demadex, so he went 4 to 5 days without Demadex. He followed up with me complaining of shortness of breath. He just received his Demadex the night before and said he was starting to feel better. I saw him several days after that, noticed that he was wheezing more very similar to what he did in the last admission. Steroids were added. He has been seen twice since then, stating that he is not getting any better, and he is scared because he is not getting any better. I elected to admit him to the hospital. By exam, he appears to be in sinus rhythm, but cannot rule out recurrent atrial flutter with block. His heart rate usually right around 100. There are no telemetry beds, so he has been admitted to the medical floor. PAST MEDICAL HISTORY: Remarkable for, 1. COPD. 2. Coronary artery disease. 3. Obesity. 4. Deconditioning. 5. Diastolic heart failure with some component of cardiac asthma. 6. Chronic kidney disease. 7. Hypertension. 8. History of knee surgery. MEDICATIONS: Prior to admission, he was on, 1. 40 of Demadex twice a day and had only recently cut it back to 40 in the morning and 20 in the afternoon. He is also on, 1. 20 mg of prednisone. 2. 20 mEq of potassium a day. 3. Losartan 100 mg a day. 4. Protonix 40 mg a day. 5. Flomax 0.4 mg a day. 6. Avodart 0.5 mg a day. 7. Cardizem 30 mg 4 times a day per the prescription on the bottle. 8. Eliquis 5 mg twice a day. 9. Crestor 10 mg a day. 10. He has Dulera at home. FAMILY HISTORY: Negative for lung disease in early age. SOCIAL HISTORY: Nonsmoker, nondrinker. He has very supportive . Chest x- ray today done in the office did not show any pulmonary edema. He does have chronic interstitial scarring. REVIEW OF SYSTEMS: 10 point review of systems completed, otherwise negative. PHYSICAL EXAMINATION: GENERAL: Mr. Mart is a 78-year-old male with chronic obstructive pulmonary disease. VITAL SIGNS: He is afebrile in the office. Heart rates in the 90s, respiratory rates in the 20s, oximetry is 97% on 3 L continuous flow. Once he got upstairs in the hospital, he was 88 on pulse flow 4 L in the office. HEENT: Pupils are equal. Sclerae anicteric. NECK: Supple. No lymphadenopathy. LUNGS: Distant and clear. He is not wheezing like he was several days back. HEART: Regular rhythm. No S3. ABDOMEN: Soft and nontender. EXTREMITIES: Without clubbing, cyanosis, or edema. LABORATORY DATA: White count 6.8, hemoglobin 7.8, platelets 266. Sodium 134, potassium 98, chloride 28, potassium 3.9, BUN 51, creatinine 2.65. EKG on arrival in the hospital showed recurrent atrial flutter. IMPRESSION: 1. Chronic obstructive pulmonary disease exacerbation. 2. Diastolic heart failure. It is hard to separate the two, his anemia aggravates this. His anticoagulants probably should be held for now and he should be transfused slowly. We will repeat labs in the morning. His chronic kidney disease will need to be followed closely as well. He has had issues of urinary retention in the past and seen Dr. Olmedo and actually had this issue last admission, hopefully it will not be a problem this admission. He has also seen Dr. Weinberg in the past. This is a 50 minute H&P. Job ID: [id number] MTDD
[2019-01-01] MEDS: methylPREDNISolone Sod Succ 40 MG VIAL IVP SCH ×4 (00:14→17:28)
[2019-01-01 05:43] LABS: Band 1 % (5-11); Lymphocytes 19 % (21-51); MDiff Complete? YES; Mean Corpuscular HGB CONC 32.3 g/dL (32.0-36.0); Mean Corpuscular Hemoglobin 28.3 pg (27.0-31.0); Mean Corpuscular Volume 87.5 fL (78.0-98.0); Mean Platelet Volume 7.7 fL (7.4-10.4); Metamyelocyte 1 % (0-0); Monocytes 3 % (0-10); Neutrophil 76 % (42-75); Platelet Count 227 thou/uL (130-400); Platelet Morphology Comment Appears Adequate; RBC Distribution Width 15.8 % (11.5-14.5); Red Blood Cell (RBC) Count 3.18 mill/uL (4.70-6.10); White Blood Cell (WBC) Count 4.1 thou/uL (4.8-10.8)
[2019-01-01 05:51] LABS: Anion Gap 18 mmol/L (10-20); BUN (Urea Nitrogen) 48 mg/dL (8.4-25.7); Calc. Creatinine Clearance 36 mL/min (70-130); Calcium 8.7 mg/dL (7.8-10.44); Carbon Dioxide 21 mmol/L (23-31); Chloride 100 mmol/L (98-107); Estimated GFR-MDRD 29; Glucose 154 mg/dL (83-110); Potassium 3.6 mmol/L (3.5-5.1); Sodium 135 mmol/L (136-145)
[2019-01-01] MEDS: Tamsulosin HCl 0.4 MG CAP PO SCH (09:59)
[2019-01-01] MEDS: Losartan 25 MG TAB PO SCH (09:59)
[2019-01-01] MEDS: Torsemide 20 MG TAB PO SCH (10:00)
[2019-01-01] MEDS: Potassium Chloride 20 MEQ TAB PO SCH (10:00)
--- NOTE | 2019-01-01 13:03 | PRG ---
DATE OF SERVICE: 01/01/2019 SUBJECTIVE: Mr. Mart has no new complaints. He is still dyspneic going to the bathroom. He is still in atrial flutter. OBJECTIVE: VITAL SIGNS: His vital signs have otherwise been stable. LUNGS: He is barely wheezing. HEART: Regular rhythm. ABDOMEN: Soft and nontender. Given his lack of response to steroids, I would wonder if this recurrence of his dyspnea symptoms is related to his atrial flutter and his diastolic dysfunction. With regard to his anemia, his hemoglobin has gone from 7.8 to 9.0. It would not be appropriate to perform endoscopy at this point. His creatinine has come down from 2.65 to 2.2. We will continue with anticoagulation, nebulizer treatments, steroids. His anticoagulation will be held until we see what his hemoglobin is doing tomorrow, but that can be restarted then if his hemoglobin is stable. Job ID: [id number]
--- NOTE | 2019-01-01 17:30 | PDOC.CTH ---
Cardiology Progress Note - Subjective Mild improvement in breathing able to talk with diaz sentences. - Objective Vital Signs Temp Pulse Pulse Pulse Resp BP BP 01/01/19 14:12 99 16 01/01/19 12:33 97.4 F L 106 H 20 01/01/19 10:42 105 H 114 H 170/79 H 134/78 01/01/19 10:25 103 H 16 01/01/19 08:59 97.7 F 103 H 20 01/01/19 06:58 01/01/19 06:55 70 16 BP Pulse Ox Pulse Ox Pulse Ox 01/01/19 14:12 96 01/01/19 12:33 168/75 H 97 01/01/19 10:42 95 94 L 01/01/19 10:25 97 01/01/19 08:59 156/74 H 96 01/01/19 06:58 95 01/01/19 06:55 95 Weight 201 lb 12.8 oz 12/31/18 01/01/19 01/02/19 06:59 06:59 06:59 Intake Total 1121 Output Total 800 Balance 321 - Physical Examination General/Neuro: alert & oriented x3, NAD Neck: no JVD present Lungs: other: (Reduced breath sounds bilat. ) Heart: other: (Irreg irreg.) Abdomen: NT/ND Extremities: + edema B (1+) - Telemetry Telemetry Rhythm: Aflutter HR 80's. - Labs Result Diagrams: 01/01/19 04:50 01/01/19 04:50 - Assessment/Plan 1. Acute on chronic diastolic CHF 2. Atypical atrial flutter 3. Recent ablation of afib with PV isolation as well as CHERELLE isolation and left sided flutter ablation. 4. COPD with acute exacerbation. PLAN; - One dose IV lasix. - EP consultation, may need anti arrhythmic and Cardioversion if does not convert to sinus. - Still under the timeframe were recurrence of flutter would not mean ablation was not successful.
[2019-01-01] MEDS ORDERED: Furosemide 40 MG/4 ML VIAL SLOW IVP SCH (17:45)
[2019-01-01] MEDS: Rosuvastatin 10 MG TAB PO SCH (20:21)
[2019-01-01] MEDS: Enoxaparin Sodium 100 MG/ML SYRINGE SC SCH (20:21)
--- NOTE | 2019-01-01 21:42 | CON ---
DATE OF CONSULTATION: 01/01/2019 REASON FOR CONSULTATION: Shortness of breath and atrial flutter. HISTORY OF PRESENT ILLNESS: Mr. Mart is a pleasant 78-year-old gentleman known to our practice for a history of persistent atrial fibrillation initially leading to an attempted cardioversion in October 2018. He was symptomatic with his atrial arrhythmias and had some resolution of symptoms following conversion to sinus rhythm. Unfortunately, he had recurrence and given his multiple comorbidities and his poor antiarrhythmic therapy options, it was eventually decided upon to proceed with left atrial ablation. This was performed by Dr. Kuhn on 12/04/2018. During this ablation, which is fairly extensive, he received a total of 59 minutes of RF energy delivered isolating the pulmonary veins and left atrial appendage in the coronary sinus. An echocardiogram during hospitalization for his ablation revealed an ejection fraction of 60% to 65%, but with some diastolic dysfunction. At the time of discharge, he remained in atrial flutter with a controlled ventricular response. At that time given the extent of his ablation, continued rate control was our plan of treatment until he has recovered some from his ablation and cardioversion could be attempted or ideally he would spontaneously convert. Mr. Mart presented to [facility] on 12/31 reporting shortness of breath what was initially thought to be a COPD exacerbation. He was recently placed on antibiotics for bronchitis or upper airway infection. His shortness of breath became progressive and he required oxygen constantly which had not been the case for him in the past. He endorses that his shortness of breath is constant, provoked with even minimal activity and he has extreme difficulty breathing while lying flat. He is unaware if he has been retaining fluid or gaining weight as he does not weigh himself at home. He does endorse that he is faithful with his anticoagulation on Eliquis. REVIEW OF SYSTEMS: A 12-point review of systems was conducted and is positive for shortness of breath, swelling of the extremities, and recent upper airway infection, positive for orthopnea, otherwise is negative. PAST MEDICAL HISTORY: 1. Persistent atrial fibrillation, status post cardioversion on 11/06/2018 and PVAI on 12/04/[address] Kuhn. 2. Chronic diastolic heart failure, ANNAMARIA on 10/26/2018 revealing normal LV ejection fraction and repeat transthoracic echo on 12/05/2018 revealing ejection fraction of 60% to 65%. 3. Pulmonary disease significant for COPD, recent pneumonia and spontaneous pneumothorax in July 2018. 4. Acute on chronic renal failure, with previous dialysis use. 5. Hypertension. 6. CHADS-VASc score of 6, maintained on Eliquis. PAST SURGICAL HISTORY: Cyst removal and left knee surgery. ALLERGIES: NONE. HOME MEDICATIONS: Include; 1. Xanax 0.5 mg p.o. b.i.d. as needed. 2. Omnicef 300 mg p.o. b.i.d., short-term course. 3. Prednisone 10 mg p.o. q.a.m. with meals, short-term course. 4. Torsemide 20 mg p.o. b.i.d. 5. Potassium chloride 20 mEq p.o. daily. 6. Dulera inhaler 2 puffs b.i.d. 7. Ipratropium bromide 0.5 mg nebulizer q.6 hours. 8. Cozaar 100 mg p.o. daily. 9. Eliquis 5 mg p.o. b.i.d. 10. Crestor 10 mg p.o. at bedtime. 11. Nexium 1 tablet p.o. daily. 12. Dutasteride one tab p.o. daily. 13. Tamsulosin 0.4 mg p.o. b.i.d. 14. Diltiazem 30 mg p.o. q.i.d. 15. Potassium chloride 20 mEq p.o. q.a.m. SOCIAL HISTORY: No current tobacco use, but quit a few years ago. Occasional alcohol intake on a social basis, but no heavy intake. , lives with his . Has a supportive family. Denies illicit drug use. FAMILY HISTORY: Positive for coronary artery disease with his father, age of onset is unknown. PHYSICAL EXAMINATION: VITAL SIGNS: Temperature 97.4, pulse 99, blood pressure is 168/75, respirations are 16, oxygen is 96% on 3 L via nasal cannula. GENERAL: The patient is alert and oriented. He is well groomed, well kept. He is in no acute distress, but he is somewhat short of breath even with simple conversation. HEENT: He is normocephalic, atraumatic. Sclerae are anicteric. EOMs are intact. Oral mucosa is moist and pink with adequate dentition. NECK: Supple with mild jugular venous distention. LUNGS: Bibasilar crackles. Respirations are somewhat rapid and slightly labored. HEART: His heart rate is irregularly irregular and rate is mildly elevated, but not severely tachycardic. PMI is nondisplaced. ABDOMEN: Obese, soft, nontender without palpable masses. Hepatojugular reflux is positive. EXTREMITIES: Warm and dry to touch without clubbing or cyanosis. There is bilateral pitting edema to the lower extremities. NEUROLOGIC: Grossly intact and nonfocal. Gait is not assessed. LABORATORY AND DIAGNOSTIC STUDIES: EKG and telemetry were all personally reviewed and reflect atypical atrial flutter with variable AV conduction. Ventricular rates are generally well controlled in the 60s to 80s, occasionally seen as high as 90s. Hematology was reviewed. Hemoglobin initially was 7.8, is 9.0 this morning. Platelet count is 227. Chemistry; potassium 3.6, creatinine 2.2. BNP 160. Chest x-ray on 12/31, shows borderline heart size with chronic lung changes with stable chest. IMPRESSION: 1. Respiratory failure. 2. Acute on chronic diastolic heart failure with fluid overload. 3. Atrial arrhythmias, persisting atypical atrial flutter following an extensive left atrial ablation on 12/04/2018. 4. Advanced chronic obstructive pulmonary disease with exacerbation. 5. Home CPAP use. 6. Chronic renal insufficiency. PLAN AND RECOMMENDATIONS: At this point, managing his respiratory failure and likely acute heart failure exacerbation seems to be the most pressing matter. I would recommend continued diuresis and medical management. As far as his atrial arrhythmias go, he was discharged from his ablation and rate controlled atypical atrial flutter to allow for some recovery time before attempting a cardioversion. He unfortunately does not have any good antiarrhythmic options given his multiple comorbidities with heart failure, chronic renal disease, and advanced COPD. For now, I would recommend medical management for his heart failure and his COPD and continued rate control and once he is more medically stable, we can consider cardioversion now that he is 1 month post ablation. Acutely, I will have two dimensional echocardiogram ordered just to reassess his ejection fraction, rule out any pericardial effusion following the extensive ablation he underwent one month ago. Also recommend continuing oral anticoagulation with Eliquis as he has had his left atrial appendage isolated and in light of a recent ablation. He will require lifelong anticoagulation unless he undergoes left atrial appendage closure in the future. Also with his history of kidney disease, I would recommend continuing to monitor his kidney function throughout his stay. Thank you for allowing us to participate in the care of this patient. Job ID: [id number]
[2019-01-02] MEDS: methylPREDNISolone Sod Succ 40 MG VIAL IVP SCH ×5 (00:09→23:49)
[2019-01-02 05:40] LABS: Anion Gap 16 mmol/L (10-20); BUN (Urea Nitrogen) 49 mg/dL (8.4-25.7); Calc. Creatinine Clearance 35 mL/min (70-130); Calcium 8.9 mg/dL (7.8-10.44); Carbon Dioxide 26 mmol/L (23-31); Chloride 98 mmol/L (98-107); Estimated GFR-MDRD 29; Glucose 228 mg/dL (83-110); Potassium 3.3 mmol/L (3.5-5.1); Sodium 137 mmol/L (136-145)
[2019-01-02 05:56] LABS: Band 13 % (5-11); Lymphocytes 8 % (21-51); MDiff Complete? YES; Mean Corpuscular HGB CONC 32.5 g/dL (32.0-36.0); Mean Corpuscular Hemoglobin 28.1 pg (27.0-31.0); Mean Corpuscular Volume 86.6 fL (78.0-98.0); Mean Platelet Volume 7.8 fL (7.4-10.4); Monocytes 6 % (0-10); Neutrophil 73 % (42-75); Platelet Count 259 thou/uL (130-400); RBC Distribution Width 15.8 % (11.5-14.5); Red Blood Cell (RBC) Count 3.19 mill/uL (4.70-6.10)
[2019-01-02] MEDS: Torsemide 20 MG TAB PO SCH (09:16)
[2019-01-02] MEDS: Losartan 25 MG TAB PO SCH (09:16)
[2019-01-02] MEDS: Tamsulosin HCl 0.4 MG CAP PO SCH (09:16)
[2019-01-02] MEDS: Potassium Chloride 20 MEQ TAB PO SCH (09:17)
--- NOTE | 2019-01-02 14:06 | PDOC.CTH ---
Cardiology Progress Note - Subjective EP PROGRESS NOTE: 01/02/19 Seen as follow up for atrial flutter and recent ablation. His breathing is easier today. He is less short of breath. No heart racing/ palpitations/chest pain. + SOB, fatigue, and leg swelling. - Objective Vital Signs Temp Pulse Resp BP Pulse Ox 01/02/19 13:53 110 H 18 94 L 01/02/19 12:24 101 H 22 H 156/72 H 96 01/02/19 10:16 105 H 18 98 01/02/19 09:17 98 01/02/19 07:49 97.4 F L 95 19 156/72 H 96 01/02/19 07:04 95 01/02/19 07:02 93 16 95 01/02/19 03:39 97.5 F L 93 19 143/68 H 97 01/02/19 02:14 95 20 94 L Weight 199 lb 01/01/19 01/02/19 01/03/19 06:59 06:59 06:59 Intake Total 1121 960 Output Total 800 1805 Balance 321 -845 - Physical Examination General/Neuro: alert & oriented x3, NAD Neck: carotid US brisk, no JVD present Lungs: other: (coarse throughout. No wheezing) Heart: PMI normal, other: (atrial flutter) Abdomen: NT/ND, soft - Telemetry Telemetry Rhythm: atypical atrial flutter - Labs Result Diagrams: 01/02/19 04:45 01/02/19 04:45 - Assessment/Plan 1. Atrial flutter, atypical - s/p extensive A Fib ablation/ PVAI on 12/[address] Kuhn. DC'd post ablation in rate controlled flutter - remains in flutter, largely rate controlled but occasionally over 100, possibly with frequent albuterol treatments. 2. COPD 3. Recent pulmonary infection - started on cefdinir as OP 4. Acute on chronic diastolic heart failure 5. Left atrial appendage isolation on 12/04 - requires life long anticoagulation. - terminal manager plans to arrange for watchman implant in the future -started on lovenox 90mg SQ QD last night. 6. Anemia - etiology unknown - recommend stool guiac - Hgb stable this AM. Continue lovenox and likely resume Eliquis next week if no acute bleeding is seen (possibly at reduced dose given kidney function and age). Patient has been in atypical atrial flutter since his ablation one month ago. He is doing better today with breathing after continued breathing treatments and diuresing. Continue rate control for now. terminal make up operator he will likely need a redo ablation but this will be considered in the future. We could attempt a ANNAMARIA guided CV ( with the recent interruption in OAC) which I suspect would be unsuccessful without antiarrhythmic medications. The only antiarrhythmic options for him given his HF, CKD, and COPD is renal dosed tikosyn 125mcg BID, which would require 3 days monitored loading. Would wait until medical issues stabilize.
--- NOTE | 2019-01-02 16:51 | PDOC.CTH ---
Cardiology Progress Note - Subjective breathing better. Diuresing had helped ,more than anything else. - Objective Vital Signs Temp Pulse Resp BP Pulse Ox 01/02/19 15:35 97.6 F 96 24 H 109/58 L 93 L 01/02/19 13:53 110 H 18 94 L 01/02/19 12:24 101 H 22 H 156/72 H 96 01/02/19 10:16 105 H 18 98 01/02/19 09:17 98 01/02/19 07:49 97.4 F L 95 19 156/72 H 96 01/02/19 07:04 95 01/02/19 07:02 93 16 95 Weight 199 lb 01/01/19 01/02/19 01/03/19 06:59 06:59 06:59 Intake Total 1121 960 Output Total 800 1805 Balance 321 -845 - Physical Examination General/Neuro: alert & oriented x3, NAD Neck: no JVD present Lungs: other: (Reduced breath sounds, bibasilar crackles. ) Heart: other: (Irreg) Abdomen: NT/ND Extremities: + edema B (1+) - Telemetry Telemetry Rhythm: Aflutter. - Labs Result Diagrams: 01/02/19 04:45 01/02/19 04:45 - Assessment/Plan 1. Acute on chronic diastolic CHF 2. Atypical atrial flutter 3. Recent ablation of afib with PV isolation as well as CHERELLE isolation and left sided flutter ablation. 4. COPD with acute exacerbation. PLAN; - One dose IV lasix today and daily IV doses until more euvolemic. - He actually was in flutter since the ablation but rate controlled - Continue rate control. - Anti arrhythmics per EP. - Will replace K, one dose on top of daily potassium . - Full anticoagulation with SQ lovenox.
[2019-01-02] MEDS ORDERED: Furosemide 40 MG/4 ML VIAL SLOW IVP SCH (17:00)
[2019-01-02] MEDS ORDERED: Potassium Chloride 20 MEQ TAB PO SCH (17:00)
--- NOTE | 2019-01-02 19:07 | PRG ---
DATE OF SERVICE: 01/02/2019 SUBJECTIVE: Mr. Mart remains in atrial flutter. He says he is feeling better today. OBJECTIVE: VITAL SIGNS: He is afebrile, heart rates in the 90s, respiratory rates in the teens to low 20s, oximetry is 93% on 3 L, blood pressure 109/58. LUNGS: Free of wheezes. HEART: Regular rhythm. ABDOMEN: Soft. IMPRESSION: 1. Atrial flutter. 2. Cardiogenic pulmonary edema secondary to diastolic heart failure. 3. Anemia, now with stable hemoglobin. This will be followed closely. He is anticoagulated again. 4. Chronic obstructive pulmonary disease. I am not convinced that he is having an exacerbation. My experience has been for many years, the patients with chronic obstructive pulmonary disease exacerbation usually start improving within one or two days of higher dose prednisone therapy, and he did not. I feel the predominant problem is his diastolic heart failure combined with his atrial flutter. We will continue to follow. Job ID: [id number] [facility]
[2019-01-02] MEDS: Rosuvastatin 10 MG TAB PO SCH (20:12)
[2019-01-02] MEDS: Enoxaparin Sodium 100 MG/ML SYRINGE SC SCH (20:12)
[2019-01-03] MEDS: methylPREDNISolone Sod Succ 40 MG VIAL IVP SCH ×3 (05:11→17:03)
[2019-01-03 05:32] LABS: Anion Gap 15 mmol/L (10-20); BUN (Urea Nitrogen) 50 mg/dL (8.4-25.7); Calc. Creatinine Clearance 36 mL/min (70-130); Calcium 8.6 mg/dL (7.8-10.44); Carbon Dioxide 27 mmol/L (23-31); Chloride 97 mmol/L (98-107); Estimated GFR-MDRD 30; Glucose 227 mg/dL (83-110); Potassium 3.6 mmol/L (3.5-5.1); Sodium 135 mmol/L (136-145)
[2019-01-03 05:36] LABS: Band 4 % (5-11); Hemoglobin 9.2 g/dL (14.0-18.0); Lymphocytes 6 % (21-51); MDiff Complete? YES; Mean Corpuscular Hemoglobin 28.2 pg (27.0-31.0); Mean Corpuscular Volume 85.5 fL (78.0-98.0); Mean Platelet Volume 7.6 fL (7.4-10.4); Monocytes 5 % (0-10); Neutrophil 85 % (42-75); Platelet Count 292 thou/uL (130-400); Platelet Morphology Comment Appears Adequate; RBC Distribution Width 15.6 % (11.5-14.5); Red Blood Cell (RBC) Count 3.27 mill/uL (4.70-6.10); White Blood Cell (WBC) Count 9.2 thou/uL (4.8-10.8)
[2019-01-03] MEDS: Losartan 25 MG TAB PO SCH (08:25)
[2019-01-03] MEDS: Potassium Chloride 20 MEQ TAB PO SCH (08:26)
[2019-01-03] MEDS: Tamsulosin HCl 0.4 MG CAP PO SCH (08:26)
[2019-01-03] MEDS ORDERED: Furosemide 40 MG/4 ML VIAL SLOW IVP SCH (09:00)
--- NOTE | 2019-01-03 10:12 | RAD ---
EXAM: CHEST ONE VIEW: History: COPD Comparison: 12-31-18 FINDINGS: Mild stable increased linear and interstitial markings bilaterally including the lung bases. Evidence for old granulomatous disease. No confluent pneumonia, overt edema, or pleural effusion. IMPRESSION: Stable appearing chronic changes. No acute intrathoracic disease. Atherosclerosis of the aorta with e ctasia. POS: [facility]
--- NOTE | 2019-01-03 19:37 | PRG ---
DATE OF SERVICE: 01/03/2019 SUBJECTIVE: Bin Mart says he is feeling better. He slept better. He is less dyspneic walking to the bathroom. OBJECTIVE: VITAL SIGNS: He is afebrile. Heart rate is 97, respiratory rate is 17, oximetry is 96% on 3 L, and blood pressure 146/69. LUNGS: He has mild wheezes bilaterally. HEART: Regular rhythm. ABDOMEN: Soft. IMAGING DATA: Chest x-ray shows no new infiltrates. LABORATORY DATA: Intake and outputs, -625. IMPRESSION: 1. Diastolic heart failure. 2. Atrial flutter, recurrent after ablation. 3. Chronic obstructive pulmonary disease. 4. Deconditioning. PLAN: To take him off IV steroids, start him on prednisone in the morning. He needs rehab evaluation. Job ID: [id number]
[2019-01-03] MEDS: Rosuvastatin 10 MG TAB PO SCH (21:06)
[2019-01-03] MEDS: Enoxaparin Sodium 100 MG/ML SYRINGE SC SCH (21:08)
[2019-01-04 05:54] LABS: Anion Gap 15 mmol/L (10-20); BUN (Urea Nitrogen) 50 mg/dL (8.4-25.7); Calc. Creatinine Clearance 37 mL/min (70-130); Calcium 8.9 mg/dL (7.8-10.44); Carbon Dioxide 26 mmol/L (23-31); Chloride 99 mmol/L (98-107); Estimated GFR-MDRD 31; Glucose 167 mg/dL (83-110); Sodium 136 mmol/L (136-145)
[2019-01-04 06:15] LABS: Band 5 % (5-11); Elliptocytes SLIGHT = 2-5 cells (100X) (0-1/hpf); Hemoglobin 9.5 g/dL (14.0-18.0); Lymphocytes 5 % (21-51); MDiff Complete? YES; Mean Corpuscular HGB CONC 32.1 g/dL (32.0-36.0); Mean Corpuscular Hemoglobin 28.1 pg (27.0-31.0); Mean Corpuscular Volume 87.5 fL (78.0-98.0); Mean Platelet Volume 7.7 fL (7.4-10.4); Monocytes 6 % (0-10); Neutrophil 84 % (42-75); Platelet Count 298 thou/uL (130-400); Platelet Morphology Comment Appears Adequate; RBC Distribution Width 15.7 % (11.5-14.5); Red Blood Cell (RBC) Count 3.38 mill/uL (4.70-6.10)
[2019-01-04] MEDS: predniSONE 20 MG TAB PO SCH (09:58)
[2019-01-04] MEDS: Aspirin 81 mg Enteric Coated Tablet PO SCH (09:58)
[2019-01-04] MEDS: Potassium Chloride 20 MEQ TAB PO SCH (09:59)
[2019-01-04] MEDS: Torsemide 20 MG TAB PO SCH ×2 (09:59→13:16)
[2019-01-04] MEDS: Losartan 25 MG TAB PO SCH (09:59)
[2019-01-04] MEDS: Tamsulosin HCl 0.4 MG CAP PO SCH (09:59)
--- NOTE | 2019-01-04 14:45 | PRG ---
DATE OF SERVICE: 01/04/2019 SUBJECTIVE: Mr. Mart says he is feeling better. He is walking in the [place] now, much less dyspnea than he had several days ago. OBJECTIVE: VITAL SIGNS: He is afebrile. Heart rate is 99, respiratory rate 21, oximetry is 92% on 3 L, blood pressure 134/66. His intake and outputs negative 245. LUNGS: Free of wheezes. HEART: Regular rhythm. ABDOMEN: Soft. IMPRESSION: 1. Diastolic heart failure. 2. Recurrent atrial flutter. 3. Chronic obstructive pulmonary disease with bronchospasm. PLAN: Continue physical therapy. Hopefully placement in a longterm rehab this week. Job ID: [id number]
[2019-01-04] MEDS: Enoxaparin Sodium 100 MG/ML SYRINGE SC SCH (20:56)
[2019-01-04] MEDS: Rosuvastatin 10 MG TAB PO SCH (20:56)
[2019-01-05 05:41] LABS: Anion Gap 15 mmol/L (10-20); BUN (Urea Nitrogen) 55 mg/dL (8.4-25.7); Calc. Creatinine Clearance 36 mL/min (70-130); Calcium 8.4 mg/dL (7.8-10.44); Carbon Dioxide 28 mmol/L (23-31); Chloride 101 mmol/L (98-107); Estimated GFR-MDRD 30; Glucose 169 mg/dL (83-110); Potassium 3.8 mmol/L (3.5-5.1); Sodium 140 mmol/L (136-145)
[2019-01-05 05:52] LABS: Band 1 % (5-11); Elliptocytes SLIGHT = 2-5 cells (100X) (0-1/hpf); Hemoglobin 9.6 g/dL (14.0-18.0); Lymphocytes 6 % (21-51); MDiff Complete? YES; Mean Corpuscular HGB CONC 31.8 g/dL (32.0-36.0); Mean Corpuscular Volume 88.2 fL (78.0-98.0); Mean Platelet Volume 8.1 fL (7.4-10.4); Monocytes 7 % (0-10); Neutrophil 86 % (42-75); Platelet Count 311 thou/uL (130-400); RBC Distribution Width 15.9 % (11.5-14.5); Red Blood Cell (RBC) Count 3.43 mill/uL (4.70-6.10)
[2019-01-05] MEDS: Losartan 25 MG TAB PO SCH (10:03)
[2019-01-05] MEDS: predniSONE 20 MG TAB PO SCH (10:03)
[2019-01-05] MEDS: Aspirin 81 mg Enteric Coated Tablet PO SCH (10:03)
[2019-01-05] MEDS: Dofetilide 0.125 MG CAP PO SCH ×2 (10:03→21:48)
[2019-01-05] MEDS: Potassium Chloride 20 MEQ TAB PO SCH (10:04)
[2019-01-05] MEDS: Tamsulosin HCl 0.4 MG CAP PO SCH (10:04)
[2019-01-05] MEDS: Torsemide 20 MG TAB PO SCH ×2 (10:05→13:03)
--- NOTE | 2019-01-05 12:24 | PRG ---
DATE OF SERVICE: 01/05/2019 SUBJECTIVE: Bin Mart said he feels worse today. He actually had a good weekend. OBJECTIVE: VITAL SIGNS: He is afebrile. Heart rate is 96, respiratory rate is 20, oximetry is 98% on his nasal cannula. LUNGS: Distant without wheezes. HEART: Regular rhythm. ABDOMEN: Soft. IMPRESSION: 1. Atrial flutter. 2. Diastolic heart failure. 3. Chronic obstructive pulmonary disease. All these are adding up to increased symptoms. LABORATORY DATA: He has no new significant lab findings today. His white count is 15, hemoglobin 9.6, platelets 311. His electrolytes are unremarkable. BUN is 55, creatinine is 2.1 which is stable. PLAN: We will continue to follow. We made no pulmonary medication changes. Physical therapy needs to be trying to walk him. We can turn up his oxygen to walking because if he continues to just lay in bed, he is not going to survive much longer. Job ID: [id number] [facility]
--- NOTE | 2019-01-05 13:15 | PDOC.CTH ---
Cardiology Progress Note - Subjective EP PROGRESS NOTE: 01/05/19 Seen as follow up for atrial flutter and recent PVAI/LA ablation. His breathing is easier improving, but still has some orthopnea. LE swelling resolved. No heart racing/palpitations/chest pain. + SOB, fatigue, and leg swelling. - ROS shortness of breath - Objective Vital Signs Temp Pulse Resp BP Pulse Ox 01/05/19 12:36 98.0 F 74 17 133/64 96 01/05/19 11:16 98 20 01/05/19 08:00 98 01/05/19 07:57 100 01/05/19 07:52 96 20 100 01/05/19 07:46 97.5 F L 96 24 H 162/80 H 98 01/05/19 04:00 97.9 F 96 20 166/79 H 96 01/05/19 02:09 94 16 91 L Weight 204 lb 01/04/19 01/05/19 01/06/19 06:59 06:59 06:59 Intake Total 1080 1020 Output Total 1325 1600 Balance -245 -580 - Physical Examination General/Neuro: alert & oriented x3, NAD Neck: no JVD present Lungs: CTA Heart: other: (irregula heart rates) Abdomen: no HSM, soft Extremities: + edema B (0) - Telemetry Telemetry Rhythm: Atyp AFL with controlled VR. - Labs Result Diagrams: 01/05/19 04:34 01/05/19 04:34 - Assessment/Plan 1. Atrial flutter, atypical - s/p extensive A Fib ablation/ PVAI on 12/[address] Kuhn. DC'd post ablation in rate controlled flutter - remains in flutter, largely rate controlled but occasionally over 100, possibly with frequent albuterol treatments. - Patient has been in atypical atrial flutter since his ablation one month ago. AFL may contribute to his diastolic dysfunction. Antiarrhythmic options limited for him given his CHF, CKD, and COPD is renal dysfx. Renal dosed tikosyn 125mcg BID will be initiated, which will require 3 days monitored loading. Monitor QT post tikosyn. - We could attempt a ANNAMARIA guided CV (with the recent interruption in OAC) in a coup[le of days. - Continue rate control also for now. - intermediate he will likely need a redo ablation but this will be considered in the future. Would wait until medical issues stabilize. 2. Respiratory failure: - liklely multifactorial, including diastolic HF, AFL, COPD. - Recent pulmonary infection - started on cefdinir as OP - He is doing better today with breathing after continued breathing treatments and diuresing 4. Acute on chronic diastolic heart failure. - As per Dr Padilla. May have stress test today. 5. Left atrial appendage isolation on 12/04 - requires life long anticoagulation. - book cutter plans to arrange for watchman CHERELLE occlusion device implant in the future - started on lovenox 90mg SQ QD last night. 6. Anemia - etiology unknown - recommend stool guiac - Hgb stable this over weekend on renal dose eliquis. - Continue lovenox and likely resume Eliquis next week if no acute bleeding is seen (possibly at reduced dose given kidney function and age).
--- NOTE | 2019-01-05 14:16 | PRG ---
DATE OF SERVICE: 01/05/2019 SUBJECTIVE: Mr. Mart remains in the hospital. He remains very short of breath. He had extreme episode of difficulty breathing last night. He is sitting up in the bedside chair now. OBJECTIVE: VITAL SIGNS: Blood pressure 133/64 and pulse in the 70s, it is regular. LUNGS: Clear anteriorly and laterally. CARDIAC: Normal S1. Normal S2. ABDOMEN: Soft and nontender. EXTREMITIES: Only minimal edema. LABORATORY DATA: Recent laboratory, he had a BNP in the 13 to 160. The patient has received steroids for several days now. ASSESSMENT: 1. Difficulty breathing, probably multifactorial, but I think this is very likely to be a very major element of diastolic heart failure. 2. Atrial arrhythmias. PLAN: 1. We will give a single dose of furosemide intravenously. 2. Add extra potassium. 3. He is on Tikosyn. 4. He will be here for few more days. We will continue to follow with you. Prognosis is guarded. Job ID: [id number]
[2019-01-05] MEDS ORDERED: Furosemide 40 MG/4 ML VIAL SLOW IVP SCH (16:00)
[2019-01-05] MEDS ORDERED: Potassium Chloride 20 MEQ TAB PO SCH (18:00)
[2019-01-05] MEDS: Rosuvastatin 10 MG TAB PO SCH (21:48)
[2019-01-05] MEDS: Enoxaparin Sodium 100 MG/ML SYRINGE SC SCH (21:48)
[2019-01-06 06:39] LABS: Band 2 % (5-11); Lymphocytes 7 % (21-51); MDiff Complete? YES; Mean Corpuscular Hemoglobin 27.3 pg (27.0-31.0); Mean Corpuscular Volume 88.2 fL (78.0-98.0); Mean Platelet Volume 7.9 fL (7.4-10.4); Monocytes 9 % (0-10); Myelocyte 2 % (0-0); Neutrophil 80 % (42-75); Platelet Count 324 thou/uL (130-400); RBC Distribution Width 15.9 % (11.5-14.5); Red Blood Cell (RBC) Count 3.66 mill/uL (4.70-6.10); White Blood Cell (WBC) Count 15.3 thou/uL (4.8-10.8)
[2019-01-06 06:40] LABS: Anion Gap 12 mmol/L (10-20); BUN (Urea Nitrogen) 51 mg/dL (8.4-25.7); Calc. Creatinine Clearance 41 mL/min (70-130); Calcium 8.8 mg/dL (7.8-10.44); Carbon Dioxide 33 mmol/L (23-31); Chloride 102 mmol/L (98-107); Estimated GFR-MDRD 35; Glucose 108 mg/dL (83-110); Potassium 4.3 mmol/L (3.5-5.1); Sodium 143 mmol/L (136-145)
--- NOTE | 2019-01-06 08:13 | RAD ---
AP VIEW CHEST: 01/06/2019 HISTORY: Congestive heart failure. COMPARISON: 01/03/2019 FINDINGS: AP view chest demonstrates calcification of the aorta. The lungs are well aerated. No evidence of a ctive intrathoracic disease is seen. No evidence of effusions, pneumonia, or pneumothorax is seen. Old healed rib fracture is seen involving the left 7th rib. No other acute abnormalities seen. IMPRESSION: No evidence of acute intrathoracic abnormalities seen. POS: [facility]
[2019-01-06] MEDS: predniSONE 20 MG TAB PO SCH (09:31)
[2019-01-06] MEDS: Losartan 25 MG TAB PO SCH (09:31)
[2019-01-06] MEDS: Potassium Chloride 20 MEQ TAB PO SCH (09:31)
[2019-01-06] MEDS: Dofetilide 0.125 MG CAP PO SCH ×2 (09:32→20:39)
[2019-01-06] MEDS: Tamsulosin HCl 0.4 MG CAP PO SCH (09:32)
[2019-01-06] MEDS: Aspirin 81 mg Enteric Coated Tablet PO SCH (09:32)
--- NOTE | 2019-01-06 09:34 | EKG ---
Test Reason : 2 HRS POST TIKOSYN Blood Pressure : / mmHG Vent. Rate : 074 BPM Atrial Rate : 312 BPM P-R Int : 000 ms QRS Dur : 090 ms QT Int : 382 ms P-R-T Axes : 066 033 047 degrees QTc Int : 424 ms Atrial flutter Abnormal ECG When compared with ECG of 31-DEC-2018 13:57, Borderline criteria for Inferior infarct are no longer Present Confirmed by DR. Kim BELTRAN ([id number]) on 01/06/2019 9:34:16 AM Referred By: SANDRA Confirmed By:DR. Kim BELTRAN
[2019-01-06] MEDS: Torsemide 20 MG TAB PO SCH ×2 (09:39→12:55)
--- NOTE | 2019-01-06 10:10 | PRG ---
DATE OF SERVICE: 01/06/2019 SUBJECTIVE: Mr. Mart had a better night last night. He had a good diuresis with intravenous Lasix. His breathing is improved. He has no chest pain. OBJECTIVE: VITAL SIGNS: Blood pressure 149/73, pulse is in the 70s. Looks like it is still atrial flutter with controlled rate. LUNGS: Clear. No wheezing. CARDIAC: Normal S1 and normal S2. ABDOMEN: Soft and nontender. EXTREMITIES: No edema. ASSESSMENT: 1. Congestive heart failure, diastolic, chronic, it seems to be improved. 2. Chronic obstructive pulmonary disease. 3. Atrial arrhythmias. PLAN: 1. We will give an additional dose of intravenous Lasix again today along with potassium. 2. Continue otherwise same medical regimen, seems to be gradually improving. 3. ? Consideration for cardioversion at some point. Job ID: [id number]
--- NOTE | 2019-01-06 13:19 | PDOC.CTH ---
Cardiology Progress Note - Subjective EP PROGRESS NOTE: 01/06/19 Seen as follow up for atrial flutter and following recent PVAI/LA ablation in November. His breathing is easier improving, but still has some orthopnea. BLE swelling resolving. No heart racing/palpitations/chest pain. + SOB, fatigue, and leg swelling. - Objective Vital Signs Temp Pulse Resp BP Pulse Ox 01/06/19 12:00 97.9 F 99 20 139/78 94 L 01/06/19 10:22 70 16 93 L 01/06/19 07:50 97.8 F 74 18 149/73 H 93 L 01/06/19 06:44 72 16 92 L 01/06/19 04:00 97.4 F L 72 20 133/67 93 L 01/06/19 02:00 72 16 94 L Weight 200 lb 8 oz 01/05/19 01/06/19 01/07/19 06:59 06:59 06:59 Intake Total 1020 1440 180 Output Total 1600 2300 Balance -580 -860 180 - Physical Examination General/Neuro: alert & oriented x3, NAD Neck: carotid US brisk, no JVD present Lungs: CTA, unlabored respirations Heart: PMI normal Abdomen: NT/ND, soft - Telemetry Telemetry Rhythm: Atrial flutter - Labs Result Diagrams: 01/06/19 05:50 01/06/19 05:50 - Assessment/Plan 1. Atrial flutter, atypical - s/p extensive A Fib ablation/ PVAI on 12/[address] Kuhn. - Patient has been in atypical atrial flutter largely rate controlled since his ablation one month ago. AFL may contribute to his diastolic dysfunction. -Antiarrhythmic options limited for him given his CHF, CKD, and COPD is renal dysfx. Renal dosed tikosyn 125mcg BID initiated on 01/05, which will require 3 days monitored loading to monitor QT/QTc: baseline 424ms. Today QTc is 457ms. - Plan for ANNAMARIA guided CV (with the recent interruption in OAC) on 01/08. If unsuccessful, will DC tikosyn in favor of continued rate control. 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 Would wait until medical issues stabilize. 2. Respiratory failure: - likely multifactorial, including diastolic HF, AFL, COPD. - Recent pulmonary infection - previously started on cefdinir as OP - He is doing better today with breathing after continued breathing treatments and diuresing 4. Acute on chronic diastolic heart failure. - As per Dr Padilla. possible stress test 5. Left atrial appendage isolation on 12/04 - requires life long anticoagulation. - [facility] plans to arrange for watchman CHERELLE occlusion device implant in the future - started on lovenox 90mg SQ QD last week. 6. Anemia - etiology unknown - recommend stool guiac - Hgb stable this over weekend on renal dose lovenox. - resuming Eliquis 5mg BID tonight as no acute bleeding are seen Continue tikosyn loading. Restarting eliquis tonight. Plan for ANNAMARIA/CV on
--- NOTE | 2019-01-06 15:38 | PRG ---
DATE OF SERVICE: 01/06/2019 SUBJECTIVE: Bin Mart says he feels a little better today. He thought he could go farther yesterday with Physical Therapy, so we will encourage him to walk farther. I really believe the large part of his dyspnea is now related to deconditioning. He has diastolic heart failure. His COPD is stable. OBJECTIVE: VITAL SIGNS: Afebrile, heart rate is 99, respiratory rate is 20, oximetry is 94, blood pressure 139/78. LUNGS: Remarkable for no wheezes today. INTAKE AND OUTPUT: Negative 860. IMPRESSION: 1. Chronic obstructive pulmonary disease exacerbation, resolving. 2. Diastolic heart failure. 3. Recurrent atrial flutter. 4. Deconditioning. 5. Obesity. Eventually need placement in a rehab facility. Job ID: [id number]
[2019-01-06] MEDS ORDERED: Furosemide 40 MG/4 ML VIAL SLOW IVP SCH (18:00)
[2019-01-06] MEDS ORDERED: Potassium Chloride 20 MEQ TAB PO SCH (18:00)
[2019-01-06] MEDS: Apixaban 5 MG TAB PO SCH (20:39)
[2019-01-06] MEDS: Rosuvastatin 10 MG TAB PO SCH (20:39)
[2019-01-07 05:39] LABS: Band 1 % (5-11); Hemoglobin 9.2 g/dL (14.0-18.0); Lymphocytes 9 % (21-51); MDiff Complete? YES; Mean Corpuscular HGB CONC 31.8 g/dL (32.0-36.0); Mean Platelet Volume 8.1 fL (7.4-10.4); Monocytes 8 % (0-10); Myelocyte 6 % (0-0); Neutrophil 76 % (42-75); Platelet Count 307 thou/uL (130-400); RBC Distribution Width 15.8 % (11.5-14.5); White Blood Cell (WBC) Count 16.5 thou/uL (4.8-10.8)
[2019-01-07 06:41] LABS: Anion Gap 17 mmol/L (10-20); BUN (Urea Nitrogen) 48 mg/dL (8.4-25.7); Calc. Creatinine Clearance 43 mL/min (70-130); Calcium 8.7 mg/dL (7.8-10.44); Carbon Dioxide 26 mmol/L (23-31); Chloride 100 mmol/L (98-107); Estimated GFR-MDRD 37; Glucose 111 mg/dL (83-110); Sodium 139 mmol/L (136-145)
[2019-01-07] MEDS: Aspirin 81 mg Enteric Coated Tablet PO SCH (08:54)
[2019-01-07] MEDS: Tamsulosin HCl 0.4 MG CAP PO SCH (08:54)
[2019-01-07] MEDS: predniSONE 20 MG TAB PO SCH (08:54)
[2019-01-07] MEDS: Potassium Chloride 20 MEQ TAB PO SCH (08:54)
[2019-01-07] MEDS: Dofetilide 0.125 MG CAP PO SCH ×2 (08:55→20:37)
[2019-01-07] MEDS: Losartan 25 MG TAB PO SCH (08:55)
[2019-01-07] MEDS: Apixaban 5 MG TAB PO SCH ×2 (08:55→20:37)
[2019-01-07] MEDS: Torsemide 20 MG TAB PO SCH ×2 (08:57→14:55)
--- NOTE | 2019-01-07 14:09 | PRG ---
DATE OF SERVICE: 01/07/2019 SUBJECTIVE: Mr. Mart converted to normal sinus rhythm. He says he feels somewhat better. No chest pain. He is so short of breath. OBJECTIVE: VITAL SIGNS: Blood pressure 132/88, pulse 90, it is regular. LUNGS: Clear. CARDIAC: Normal S1 and normal S2. ABDOMEN: Soft and nontender. EXTREMITIES: There is no edema. ASSESSMENT: 1. Diastolic congestive heart failure, appears to be improved. 2. Atrial arrhythmias, maintaining sinus rhythm. 3. Renal failure, stable, creatinine is 1.8. PLAN: 1. He has been changed to apixaban. 2. He is on low-dose aspirin, on prednisone, on losartan, and on torsemide. Job ID: [id number]
--- NOTE | 2019-01-07 14:18 | PRG ---
DATE OF SERVICE: 01/07/2019 SUBJECTIVE: Mr. Bin Mart is back in sinus rhythm. He says he feels better. He is not becoming frightened when he walks and becomes short of breath. He says his dyspnea on exertion is dramatically improved. OBJECTIVE: VITAL SIGNS: He is afebrile, heart rate is 93, respiratory rate is 19, oximetry is 95% on 4 L, blood pressure 132/88. LUNGS: Clear and distant. HEART: Regular rhythm. ABDOMEN: Soft. IMPRESSION: 1. Chronic obstructive pulmonary disease. 2. Diastolic dysfunction. 3. Chronic respiratory failure with hypoxia. 4. Recurrent atrial flutter after ablation, now in sinus rhythm. PLAN: Continue current care. We can transfer him to rehab, if he remains stable for 1-2 days. Job ID: [id number]
--- NOTE | 2019-01-07 17:45 | PDOC.CTH ---
Cardiology Progress Note - Subjective EP PROGRESS NOTE: 01/07/19 Seen as follow up for atrial flutter and following recent PVAI/LA ablation in November. He converted back to SR with tikosyn loading. His breathing is easier improving, no orthopnea. BLE swelling resolving. No heart racing/palpitations/chest pain. - Objective Vital Signs Temp Pulse Pulse Pulse Resp BP BP 01/07/19 15:19 97.1 F L 84 18 01/07/19 14:53 89 20 01/07/19 12:00 97.6 F 80 18 01/07/19 11:02 94 92 133/85 132/88 01/07/19 10:29 82 20 01/07/19 08:00 96.4 F L 93 19 01/07/19 06:55 90 20 BP Pulse Ox Pulse Ox Pulse Ox 01/07/19 15:19 132/60 95 01/07/19 14:53 95 01/07/19 12:00 130/76 96 01/07/19 11:02 95 95 01/07/19 10:29 95 01/07/19 08:00 132/88 95 01/07/19 06:55 94 L Weight 203 lb 4 oz 01/06/19 01/07/19 01/08/19 06:59 06:59 06:59 Intake Total 1440 1850 500 Output Total 2300 1600 1800 Balance -860 250 -1300 - Physical Examination General/Neuro: alert & oriented x3, NAD Lungs: CTA Heart: RRR Abdomen: no HSM Extremities: + edema B (0) - Telemetry Telemetry Rhythm: AFIb->SR - Labs Result Diagrams: 01/07/19 04:41 01/07/19 04:41 - Assessment/Plan 1. Atrial flutter, atypical - s/p extensive A Fib ablation/ PVAI on 12/[address] Kuhn. - Patient has been in atypical atrial flutter largely rate controlled since his ablation one month ago. AFL may contribute to his diastolic dysfunction. -Antiarrhythmic options limited for him given his CHF, CKD, and COPD is renal dysfx. Renal dosed tikosyn 125mcg BID initiated on 01/05, which will require 3 days monitored loading to monitor QT/QTc: baseline 424ms. QTc is 457-> 474ms. - Converted to SR while on loading with tikosyn 01/07/19 am. feeling much betgter. - Plan for ANNAMARIA guided CV (with the recent interruption in OAC) on 01/08. If unsuccessful, will DC tikosyn in favor of continued rate control. 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 Would wait until medical issues stabilize. 2. Respiratory failure: - likely multifactorial, including diastolic HF, AFL, COPD. - Recent pulmonary infection - previously started on cefdinir as OP - He is doing better today with breathing after continued breathing treatments and diuresing 4. Acute on chronic diastolic heart failure. - As per Dr Padilla. possible stress test 5. Left atrial appendage isolation on 12/04 - requires life long anticoagulation. 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 6. Anemia - etiology unknown - recommend stool guiac - Hgb stable this over weekend on renal dose lovenox. - resuming Eliquis 5mg BID tonight as no acute bleeding are seen Continue tikosyn loading. Restarted eliquis last night. Cancel ANNAMARIA/CV on . Home am?
[2019-01-07] MEDS: Rosuvastatin 10 MG TAB PO SCH (20:37)
[2019-01-08 06:29] LABS: Hemoglobin 8.9 g/dL (14.0-18.0); Mean Corpuscular HGB CONC 31.2 g/dL (32.0-36.0); Mean Corpuscular Hemoglobin 27.5 pg (27.0-31.0); Mean Corpuscular Volume 87.9 fL (78.0-98.0); Mean Platelet Volume 8.2 fL (7.4-10.4); Platelet Count 307 thou/uL (130-400); Red Blood Cell (RBC) Count 3.22 mill/uL (4.70-6.10); White Blood Cell (WBC) Count 18.2 thou/uL (4.8-10.8)
[2019-01-08 06:47] LABS: Anion Gap 14 mmol/L (10-20); BUN (Urea Nitrogen) 45 mg/dL (8.4-25.7); Calc. Creatinine Clearance 45 mL/min (70-130); Calcium 8.5 mg/dL (7.8-10.44); Carbon Dioxide 31 mmol/L (23-31); Chloride 101 mmol/L (98-107); Estimated GFR-MDRD 38; Glucose 103 mg/dL (83-110); Potassium 3.6 mmol/L (3.5-5.1); Sodium 142 mmol/L (136-145)
[2019-01-08 07:42] LABS: Band 3 % (5-11); Elliptocytes SLIGHT = 2-5 cells (100X) (0-1/hpf); Hypochromia SLIGHT = 6-15 cells (100X) (0-5/hpf); Lymphocytes 9 % (21-51); MDiff Complete? YES; Metamyelocyte 3 % (0-0); Monocytes 7 % (0-10); Myelocyte 5 % (0-0); Neutrophil 73 % (42-75); Ovalocytes SLIGHT = 2-5 cells (100X) (0-1/hpf); Platelet Morphology Comment Appears Adequate; Polychromasia SLIGHT = 2-3 cells (100X) (0-2/hpf)
[2019-01-08] MEDS: Potassium Chloride 20 MEQ TAB PO SCH (08:58)
[2019-01-08] MEDS: Aspirin 81 mg Enteric Coated Tablet PO SCH (08:59)
[2019-01-08] MEDS: Torsemide 20 MG TAB PO SCH ×2 (08:59→13:57)
[2019-01-08] MEDS: predniSONE 20 MG TAB PO SCH (08:59)
[2019-01-08] MEDS: Tamsulosin HCl 0.4 MG CAP PO SCH (08:59)
[2019-01-08] MEDS: Losartan 25 MG TAB PO SCH (09:00)
[2019-01-08] MEDS: Apixaban 5 MG TAB PO SCH ×2 (09:00→21:06)
[2019-01-08] MEDS: Dofetilide 0.125 MG CAP PO SCH ×2 (09:00→21:06)
--- NOTE | 2019-01-08 10:03 | PRG ---
DATE OF SERVICE: 01/08/2019 SUBJECTIVE: Manry is feeling better. He says his breathing is improved. He is awaiting placement of rehab. No chest pain or pressure. OBJECTIVE: VITAL SIGNS: Blood pressure 116/56, pulse is 78, it is regular, it is sinus on the monitor. LUNGS: Clear. CARDIAC: Normal S1, normal S2. ABDOMEN: Soft and nontender. EXTREMITIES: There is no edema. ASSESSMENT: 1. Congestive heart failure, diastolic, acute on chronic, stable. 2. Renal failure, improved. Creatinine is 1.78. Estimated GFR is 38. Stage 3 renal failure, improved. 3. Atrial arrhythmias, improved. PLAN: He will be released home from a cardiac standpoint whenever it can be placed. Continue current medical regimen. Job ID: [id number]
[2019-01-08 11:51] VITALS: BMI 30.2
--- NOTE | 2019-01-08 15:57 | PDOC.CTH ---
Cardiology Progress Note - Subjective EP PROGRESS NOTE: 01/08/19 Seen as follow up for atrial flutter and following recent PVAI/LA ablation in November. He converted back to SR with tikosyn loading. His breathing is easier improving, no orthopnea. BLE swelling resolving. No heart racing/palpitations/chest pain. Feeling better each day and walking further but would like to walk more. He does have episodes of getting quite winded. - Objective Vital Signs Temp Pulse Resp BP Pulse Ox 01/08/19 15:35 96.5 F L 85 17 138/64 92 L 01/08/19 14:56 74 20 01/08/19 12:00 97.0 F L 80 18 142/68 H 93 L 01/08/19 11:12 85 20 01/08/19 08:00 97.6 F 84 17 136/63 96 01/08/19 07:01 94 L 01/08/19 06:59 79 20 94 L 01/08/19 04:00 97.2 F L 78 20 116/56 L 93 L Admit Weight 204 lb Weight 204 lb 5 oz 01/07/19 01/08/19 01/09/19 06:59 06:59 06:59 Intake Total 1850 800 Output Total 1600 2825 Balance 250 -2024 - Physical Examination General/Neuro: alert & oriented x3, NAD Neck: carotid US brisk, no JVD present Lungs: other: (coarse throughout. Somewhat rapid. ) Heart: PMI normal, RRR Abdomen: NT/ND, soft - Telemetry Telemetry Rhythm: SR - Labs Result Diagrams: 01/08/19 05:14 01/08/19 05:14 - Assessment/Plan 1. Atrial flutter, atypical - s/p extensive A Fib ablation/ PVAI on 12/[address] Kuhn. - Patient has been in atypical atrial flutter largely rate controlled since his ablation one month ago. AFL may contribute to his diastolic dysfunction. -Antiarrhythmic options limited for him given his CHF, CKD, and COPD is renal dysfx. Renal dosed tikosyn 125mcg BID initiated on 01/05, which will require 3 days monitored loading to monitor QT/QTc: baseline 424ms. QTc is 457-> 474ms --> 468msec after 6th dose. - Converted to SR while on loading with tikosyn 01/07/19 am. feeling somewhat better. 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 Would wait until medical issues stabilize. 2. Respiratory failure: - likely multifactorial, including diastolic HF, AFL, COPD. - Recent pulmonary infection - previously started on cefdinir as OP - He is doing better today with breathing after continued breathing treatments and diuresing 4. Acute on chronic diastolic heart failure. - As per Dr Padilla. possible stress test 5. Left atrial appendage isolation on 12/04 - requires life long anticoagulation. 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 May require reduced dose if Hgb drops. 6. Anemia - etiology unknown - recommend stool guiac - resumed Eliquis 5mg BID as no acute bleeding are seen Tikosyn loading completed and QTc stable ( 468ms today after 6th dose. Was 424ms at baseline). Ok to DC to rehab by EP. Continue Eliquis 5mg BID and tikosyn. Will provide paper prescription tomorrow if still in hospital for to take home otherwise she may stop by clinic/contact us for prescription to be sent in to their pharmacy.
--- NOTE | 2019-01-08 17:55 | PRG ---
DATE OF SERVICE: 01/08/2019 SUBJECTIVE: Bin Mart says he is feeling well. He had been walked when I saw him today. OBJECTIVE: VITAL SIGNS: He is afebrile, heart rate 85, respiratory rate 17, oximetry is 92% on 4 L, blood pressure 138/64. Intake and outputs -2025 mL. LUNGS: Free of wheezes. HEART: Regular rhythm. ABDOMEN: Soft. LABORATORY DATA: White count 18.2, hemoglobin 8.9, platelets 307,000. Electrolytes were unremarkable. Creatinine is down to 1.73. IMPRESSION: 1. Chronic obstructive pulmonary disease. 2. Recurrent atrial flutter, now in sinus rhythm. 3. Diastolic heart failure. 4. Chronic kidney disease. 5. Deconditioning. 6. Anemia? Slow GI loss. So, he will need to be followed closely as an outpatient. He certainly does not need to be transfused at this point. He is currently being evaluated for placement in rehab. Job ID: [id number]
[2019-01-08] MEDS: Rosuvastatin 10 MG TAB PO SCH (21:06)
[2019-01-09 06:42] LABS: Anion Gap 12 mmol/L (10-20); BUN (Urea Nitrogen) 46 mg/dL (8.4-25.7); Calc. Creatinine Clearance 46 mL/min (70-130); Calcium 8.6 mg/dL (7.8-10.44); Carbon Dioxide 31 mmol/L (23-31); Chloride 99 mmol/L (98-107); Estimated GFR-MDRD 39; Glucose 105 mg/dL (83-110); Potassium 3.9 mmol/L (3.5-5.1); Sodium 138 mmol/L (136-145)
[2019-01-09 06:46] LABS: Hemoglobin 9.1 g/dL (14.0-18.0); Mean Corpuscular HGB CONC 31.5 g/dL (32.0-36.0); Mean Corpuscular Hemoglobin 27.7 pg (27.0-31.0); Mean Corpuscular Volume 87.9 fL (78.0-98.0); Mean Platelet Volume 8.3 fL (7.4-10.4); Platelet Count 322 thou/uL (130-400); RBC Distribution Width 16.1 % (11.5-14.5); White Blood Cell (WBC) Count 21.1 thou/uL (4.8-10.8)
[2019-01-09 06:49] LABS: Band 1 % (5-11); Eosinophils 5 % (0-10); Hypochromia SLIGHT = 6-15 cells (100X) (0-5/hpf); Lymphocytes 13 % (21-51); MDiff Complete? YES; Monocytes 2 % (0-10); Neutrophil 79 % (42-75); Platelet Morphology Comment Appears Adequate
[2019-01-09] MEDS: Losartan 25 MG TAB PO SCH (08:58)
[2019-01-09] MEDS: Potassium Chloride 20 MEQ TAB PO SCH (08:59)
[2019-01-09] MEDS: Aspirin 81 mg Enteric Coated Tablet PO SCH (08:59)
[2019-01-09] MEDS: Tamsulosin HCl 0.4 MG CAP PO SCH (08:59)
[2019-01-09] MEDS: predniSONE 20 MG TAB PO SCH (08:59)
[2019-01-09] MEDS: Dofetilide 0.125 MG CAP PO SCH ×2 (08:59→21:26)
[2019-01-09] MEDS: Apixaban 5 MG TAB PO SCH ×2 (08:59→21:27)
[2019-01-09] MEDS: Torsemide 20 MG TAB PO SCH ×2 (09:06→13:29)
--- NOTE | 2019-01-09 10:46 | PRG ---
DATE OF SERVICE: 01/09/2019 SUBJECTIVE: Mr. Mart has no new complaints. He says he feels great. He is ready to go to rehab once he gets approved. OBJECTIVE: VITAL SIGNS: He is afebrile. Heart rate 79, respiratory rate 15, oximetry is 92%, blood pressure 119/68. LUNGS: Clear. Free of wheezes. HEART: Regular rhythm. ABDOMEN: Soft. IMPRESSION: 1. Diastolic dysfunction. 2. Chronic obstructive pulmonary disease with an exacerbation, that is resolved. 3. Atrial fibrillation, atrial flutter with a recent flutter ablation with recurrence of his atrial flutter, now in sinus rhythm. 4. Hypertension. 5. Chronic respiratory failure with hypoxia. 6. ? depression, mixed in. He is extremely anxious on multiple visits in last few weeks, so he was started on Zoloft at bedtime and should stay on this after discharge. 7. Deconditioning, for rehab. 8. Sleep apnea, on CPAP at night. Hopefully, he will get approved for rehab or [facility] within the next few days. Job ID: [id number]
--- NOTE | 2019-01-09 12:43 | PDOC.CTH ---
Cardiology Progress Note - Subjective EP PROGRESS NOTE: 01/09/19 Seen as follow up for atrial flutter and following recent PVAI/LA ablation in November. He converted back to SR with tikosyn loading. His breathing is easier improving, no orthopnea. BLE swelling resolving. No heart racing/palpitations/chest pain. Feeling better each day and walking further but would like to walk more. He does have episodes of getting quite winded. Likely DC to rehab today if accepted. - Objective Vital Signs Temp Pulse Resp BP Pulse Ox 01/09/19 12:10 80 16 01/09/19 09:00 79 16 01/09/19 08:00 97.8 F 87 18 166/72 H 96 01/09/19 04:00 97.5 F L 79 15 119/68 92 L 01/09/19 02:27 76 12 Admit Weight 204 lb Weight 202 lb 5 oz 01/08/19 01/09/19 01/10/19 06:59 06:59 06:59 Intake Total 800 880 Output Total 2825 900 Balance -2024 - Physical Examination General/Neuro: alert & oriented x3, NAD Neck: carotid US brisk, no JVD present Lungs: CTA, unlabored respirations Heart: PMI normal, RRR Abdomen: NT/ND, soft - Telemetry Telemetry Rhythm: SR - Labs Result Diagrams: 01/09/19 06:07 01/09/19 06:07 - Assessment/Plan 1. Atrial flutter, atypical - s/p extensive A Fib ablation/ PVAI on 12/[address] Kuhn. - Patient has been in atypical atrial flutter largely rate controlled since his ablation one month ago. AFL may contribute to his diastolic dysfunction. -Antiarrhythmic options limited for him given his CHF, CKD, and COPD is renal dysfx. Renal dosed tikosyn 125mcg BID initiated on 01/05, which will require 3 days monitored loading to monitor QT/QTc: baseline 424ms. QTc is 457-> 474ms --> 468msec after 6th dose. - Converted to SR while on loading with tikosyn 01/07/19 am. feeling somewhat better. 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 Would wait until medical issues stabilize. 2. Respiratory failure: - likely multifactorial, including diastolic HF, AFL, COPD. - Recent pulmonary infection - previously started on cefdinir as OP - He is doing better today with breathing after continued breathing treatments and diuresing 4. Acute on chronic diastolic heart failure. - As per Dr Padilla. 5. Left atrial appendage isolation on 12/04 - requires life long anticoagulation. - [facility] plans to arrange for watchman CHERELLE occlusion device implant in the future - Back on eliquis and tolerating well. May require reduced dose if Hgb drops. 6. Anemia - etiology unknown - recommend stool guiac - resumed Eliquis 5mg BID as no acute bleeding are seen Tikosyn loading completed and QTc stable ( ~460ms now. Was 424ms at baseline). Ok to DC to rehab by EP, request 6 week follow up with [facility]. Continue Eliquis 5mg BID and tikosyn. Paper tikosyn prescription for to take home is in front of chart.
--- NOTE | 2019-01-09 16:32 | EKG ---
Test Reason : 2 HR POST TIKOSYN Blood Pressure : / mmHG Vent. Rate : 094 BPM Atrial Rate : 250 BPM P-R Int : 000 ms QRS Dur : 084 ms QT Int : 366 ms P-R-T Axes : 000 007 001 degrees QTc Int : 457 ms Atrial flutter Possible Inferior infarct , age undetermined Abnormal ECG Confirmed by DR. Kim BELTRAN ([id number]) on 01/09/2019 4:31:58 PM Referred By: [facility] Confirmed By:DR. Kim BELTRAN
--- NOTE | 2019-01-09 16:34 | EKG ---
Test Reason : ROUTINE Blood Pressure : / mmHG Vent. Rate : 088 BPM Atrial Rate : 250 BPM P-R Int : 000 ms QRS Dur : 086 ms QT Int : 398 ms P-R-T Axes : 000 008 017 degrees QTc Int : 481 ms Atrial flutter with variable A-V block Possible Inferior infarct (cited on or before 31-DEC-2018) Abnormal ECG Confirmed by DR. Kim BELTRAN ([id number]) on 01/09/2019 4:34:02 PM Referred By: Confirmed By:DR. Kim BELTRAN
--- NOTE | 2019-01-09 16:36 | EKG ---
Test Reason : 2 HR POST TIKOSYN Blood Pressure : / mmHG Vent. Rate : 083 BPM Atrial Rate : 083 BPM P-R Int : 164 ms QRS Dur : 086 ms QT Int : 404 ms P-R-T Axes : 076 007 043 degrees QTc Int : 474 ms Normal sinus rhythm with sinus arrhythmia Possible Inferior infarct (cited on or before 31-DEC-2018) Abnormal ECG When compared with ECG of 06-JAN-2019 22:27, (Unconfirmed) Sinus rhythm has replaced Atrial flutter Nonspecific T wave abnormality no longer evident in Inferior leads Confirmed by DR. Kim BELTRAN () on 01/09/2019 4:35:44 PM Referred By: [facility] Confirmed By:DR. Kim BELTRAN
--- NOTE | 2019-01-09 16:39 | EKG ---
Test Reason : ROUTINE Blood Pressure : / mmHG Vent. Rate : 084 BPM Atrial Rate : 084 BPM P-R Int : 166 ms QRS Dur : 086 ms QT Int : 402 ms P-R-T Axes : 067 009 047 degrees QTc Int : 475 ms Normal sinus rhythm with sinus arrhythmia Normal ECG When compared with ECG of 07-JAN-2019 11:11, (Unconfirmed) No significant change was found Confirmed by DR. Kim BELTRAN ([id number]) on 01/09/2019 4:38:30 PM Referred By: [facility] Confirmed By:DR. Kim BELTRAN
--- NOTE | 2019-01-09 16:42 | EKG ---
Test Reason : TIMED Blood Pressure : / mmHG Vent. Rate : 080 BPM Atrial Rate : 080 BPM P-R Int : 198 ms QRS Dur : 086 ms QT Int : 406 ms P-R-T Axes : 029 018 039 degrees QTc Int : 468 ms Normal sinus rhythm Normal ECG When compared with ECG of 07-JAN-2019 23:24, (Unconfirmed) No significant change was found Confirmed by DR. Kim BELTRAN ([id number]) on 01/09/2019 4:42:28 PM Referred By: [facility] Confirmed By:DR. Kim BELTRAN
--- NOTE | 2019-01-09 16:47 | EKG ---
Test Reason : ROUTINE Blood Pressure : / mmHG Vent. Rate : 079 BPM Atrial Rate : 079 BPM P-R Int : 168 ms QRS Dur : 074 ms QT Int : 402 ms P-R-T Axes : 070 012 045 degrees QTc Int : 460 ms Sinus rhythm with Premature atrial complexes Low voltage QRS Borderline ECG When compared with ECG of 08-JAN-2019 11:06, (Unconfirmed) Premature atrial complexes are now Present Confirmed by DR. Kim BELTRAN ([id number]) on 01/09/2019 4:47:10 PM Referred By: SANDRA Confirmed By:DR. Kim BELTRAN
[2019-01-09] MEDS: Rosuvastatin 10 MG TAB PO SCH (21:26)
[2019-01-10 07:11] LABS: Hemoglobin 9.4 g/dL (14.0-18.0); Mean Corpuscular HGB CONC 31.7 g/dL (32.0-36.0); Mean Corpuscular Hemoglobin 27.8 pg (27.0-31.0); Mean Corpuscular Volume 87.7 fL (78.0-98.0); Mean Platelet Volume 8.1 fL (7.4-10.4); Platelet Count 306 thou/uL (130-400); RBC Distribution Width 16.5 % (11.5-14.5); Red Blood Cell (RBC) Count 3.36 mill/uL (4.70-6.10); White Blood Cell (WBC) Count 24.9 thou/uL (4.8-10.8)
[2019-01-10 07:14] LABS: Anion Gap 16 mmol/L (10-20); BUN (Urea Nitrogen) 47 mg/dL (8.4-25.7); Calc. Creatinine Clearance 43 mL/min (70-130); Calcium 8.5 mg/dL (7.8-10.44); Carbon Dioxide 28 mmol/L (23-31); Chloride 100 mmol/L (98-107); Estimated GFR-MDRD 37; Glucose 180 mg/dL (83-110); Potassium 3.6 mmol/L (3.5-5.1); Sodium 140 mmol/L (136-145)
[2019-01-10 08:53] LABS: Anisocytosis SLIGHT = 6-15 cells (100X) (0-5/hpf); Band 2 % (5-11); Burr Cells SLIGHT = 2-5 cells (100X) (0-1/hpf); Eosinophils 2 % (0-10); Hypochromia SLIGHT = 6-15 cells (100X) (0-5/hpf); Lymphocytes 7 % (21-51); MDiff Complete? YES; Monocytes 8 % (0-10); Neutrophil 73 % (42-75); Platelet Morphology Comment Appears Adequate; Polychromasia SLIGHT = 2-3 cells (100X) (0-2/hpf); Reactive Lymphocytes 8 % (0-10); Schistocytes SLIGHT = 2-5 cells (100X) (0-1/hpf)
[2019-01-10] MEDS: Dofetilide 0.125 MG CAP PO SCH ×2 (09:33→21:04)
[2019-01-10] MEDS: Potassium Chloride 20 MEQ TAB PO SCH (09:33)
[2019-01-10] MEDS: predniSONE 20 MG TAB PO SCH (09:34)
[2019-01-10] MEDS: Tamsulosin HCl 0.4 MG CAP PO SCH (09:34)
[2019-01-10] MEDS: Losartan 25 MG TAB PO SCH (09:34)
[2019-01-10] MEDS: Apixaban 5 MG TAB PO SCH ×2 (09:34→21:04)
[2019-01-10] MEDS: Aspirin 81 mg Enteric Coated Tablet PO SCH (09:34)
[2019-01-10] MEDS: Torsemide 20 MG TAB PO SCH ×2 (09:39→13:38)
--- NOTE | 2019-01-10 12:47 | PRG ---
DATE OF SERVICE: 01/10/2019 SUBJECTIVE: The patient is up, walking around. He feels good. He is apparently awaiting transfer to [facility]. The nurse tells me that they are trying to make sure that Tikosyn will be available for the patient over there. OBJECTIVE: VITAL SIGNS: On exam, the temperature is 98.7, pulse 80, respirations 18, O2 saturations 95% on 4 L, blood pressure 140/67. HEENT: Unremarkable. NECK: No JVD. LUNGS: Clear, but distant breath sounds. CARDIAC: S1 and S2, regular. ABDOMEN: Soft. EXTREMITIES: No edema. LABORATORY DATA: White blood cell count 24.9, hematocrit 29.5, and platelet count 306. Sodium 140, potassium 3.6, chloride 100, CO2 of 28, BUN 47, creatinine 1.8, glucose 180. ASSESSMENT: 1. Diastolic cardiac dysfunction. 2. Chronic obstructive pulmonary disease exacerbation. 3. Atrial fibrillation/flutter with ablation. 4. Hypertension. 5. Chronic respiratory failure. 6. Deconditioning. 7. Obstructive sleep apnea, requiring CPAP at night. PLAN: 1. To rehab when accepted. 2. I will go ahead and start tapering the prednisone, that should probably be tapered over the next two weeks. The elevated white count is probably secondary to the steroids as he does not appear to be infected at this time. Job ID: [id number]
[2019-01-10] MEDS: Rosuvastatin 10 MG TAB PO SCH (21:05)
[2019-01-11 05:46] LABS: Band 3 % (5-11); Hemoglobin 8.8 g/dL (14.0-18.0); Lymphocytes 5 % (21-51); MDiff Complete? YES; Mean Corpuscular HGB CONC 32.6 g/dL (32.0-36.0); Mean Corpuscular Hemoglobin 28.2 pg (27.0-31.0); Mean Corpuscular Volume 86.7 fL (78.0-98.0); Mean Platelet Volume 8.5 fL (7.4-10.4); Monocytes 10 % (0-10); Neutrophil 82 % (42-75); Platelet Count 278 thou/uL (130-400); Platelet Morphology Comment Appears Adequate; RBC Distribution Width 16.5 % (11.5-14.5); RBC Morphology Normal; Red Blood Cell (RBC) Count 3.12 mill/uL (4.70-6.10); White Blood Cell (WBC) Count 21.2 thou/uL (4.8-10.8)
[2019-01-11 05:56] LABS: Anion Gap 12 mmol/L (10-20); BUN (Urea Nitrogen) 46 mg/dL (8.4-25.7); Calc. Creatinine Clearance 44 mL/min (70-130); Calcium 8.4 mg/dL (7.8-10.44); Carbon Dioxide 32 mmol/L (23-31); Chloride 98 mmol/L (98-107); Estimated GFR-MDRD 38; Glucose 132 mg/dL (83-110); Potassium 3.4 mmol/L (3.5-5.1); Sodium 139 mmol/L (136-145)
[2019-01-11] MEDS: Losartan 25 MG TAB PO SCH (09:00)
[2019-01-11] MEDS: predniSONE 20 MG TAB PO SCH (09:01)
[2019-01-11] MEDS: Apixaban 5 MG TAB PO SCH ×2 (09:03→21:14)
[2019-01-11] MEDS: Aspirin 81 mg Enteric Coated Tablet PO SCH (09:03)
[2019-01-11] MEDS: Tamsulosin HCl 0.4 MG CAP PO SCH (09:03)
[2019-01-11] MEDS: Potassium Chloride 20 MEQ TAB PO SCH (09:05)
[2019-01-11] MEDS: Dofetilide 0.125 MG CAP PO SCH ×2 (09:05→21:14)
[2019-01-11] MEDS: Torsemide 20 MG TAB PO SCH ×2 (09:08→13:42)
[2019-01-11] MEDS ORDERED: predniSONE 20 MG TAB PO SCH (13:27)
--- NOTE | 2019-01-11 14:37 | PRG ---
DATE OF SERVICE: 01/11/2019 SUBJECTIVE: Mr. Mart is hanging out, waiting for a rehab bed. He feels fine, has no complaints. OBJECTIVE: VITAL SIGNS: Temperature 98.1, pulse 76, respirations 19, O2 saturation 92% on 4 L, and blood pressure 142/70. HEENT: Unremarkable. NECK: No JVD. CHEST: Clear. CARDIAC: S1 and S2, regular. ABDOMEN: Soft. EXTREMITIES: No edema. LABORATORY DATA: White blood cell count 21.2, hematocrit 27.1, and platelet count 278. Sodium 139, potassium 3.4, chloride 98, CO2 of 32, BUN 46, creatinine 1.8, and glucose 132. ASSESSMENT: 1. Chronic obstructive pulmonary disease, which is clinically stable. 2. Mild hypokalemia. 3. Diastolic cardiac dysfunction. 4. Atrial fibrillation/flutter with ablation. 5. Obstructive sleep apnea, requiring CPAP at night. PLAN: 1. Replace potassium. 2. Continue anticoagulation. 3. Stop daily lab draws. Job ID: [id number]
[2019-01-11] MEDS: Rosuvastatin 10 MG TAB PO SCH (21:14)
[2019-01-12] MEDS: Apixaban 5 MG TAB PO SCH ×2 (08:38→20:00)
[2019-01-12] MEDS: Losartan 25 MG TAB PO SCH (08:39)
[2019-01-12] MEDS: Aspirin 81 mg Enteric Coated Tablet PO SCH (08:39)
[2019-01-12] MEDS: Potassium Chloride 20 MEQ TAB PO SCH (08:40)
[2019-01-12] MEDS: Dofetilide 0.125 MG CAP PO SCH ×2 (08:41→20:00)
[2019-01-12] MEDS: Tamsulosin HCl 0.4 MG CAP PO SCH (08:41)
[2019-01-12] MEDS: Torsemide 20 MG TAB PO SCH ×2 (08:46→14:49)
--- NOTE | 2019-01-12 09:24 | PDOC.CTH ---
Cardiology Progress Note - Subjective EP PROGRESS NOTE: 01/12/19 Seen as follow up for atrial flutter and following recent PVAI/LA ablation in November. He converted back to SR last week with tikosyn loading. His breathing is much improved, no orthopnea. BLE swelling resolving. No heart racing/palpitations/chest pain. Feeling better each day and walking further but would like to walk more. He does have episodes of getting quite winded. Likely DC to rehab soon if accepted. - Objective Vital Signs Temp Pulse Resp BP Pulse Ox 01/12/19 08:32 98.3 F 81 20 146/66 H 92 L 01/12/19 06:39 74 14 95 01/12/19 04:00 97.2 F L 72 14 121/58 L 97 01/12/19 02:03 78 14 94 L 01/11/19 22:24 86 14 92 L Admit Weight 204 lb Weight 272 lb 01/11/19 01/12/19 01/13/19 06:59 06:59 06:59 Intake Total 1730 720 Output Total 2450 800 Balance -720 -80 - Physical Examination General/Neuro: alert & oriented x3 Neck: carotid US brisk, no JVD present Lungs: CTA Heart: RRR Abdomen: no HSM Extremities: + edema B (0) - Telemetry Telemetry Rhythm: SR No afib/VT - Labs Result Diagrams: 01/11/19 04:34 01/11/19 04:34 - Assessment/Plan 1. Atrial flutter, atypical - s/p extensive A Fib ablation/ PVAI on 12/[address] Kuhn. - Patient has been in atypical atrial flutter largely rate controlled since his ablation one month ago. AFL may contribute to his diastolic dysfunction. - Antiarrhythmic options limited for him given his CHF, CKD, and COPD is renal dysfx. Renal dosed tikosyn 125mcg BID initiated on 01/05, s/p 3 days monitored loading with stable QT/QTc: baseline 424ms. QTc is 457->474ms --> 468msec after 6th dose. - Converted to SR while on loading with tikosyn 01/07/19 am. feeling better. - intermediate he will likely need a redo ablation but this will be considered in the future. Would wait until medical issues stabilize. 2. Respiratory failure: - likely multifactorial, including diastolic HF, AFL, COPD. - Recent pulmonary infection - previously started on cefdinir as OP - He is doing better today with breathing after continued breathing treatments and diuresing 4. Acute on chronic diastolic heart failure. - As per Dr Padilla. 5. Left atrial appendage isolation on 12/04 - requires life long anticoagulation. - nursing home plans to arrange for watchman CHERELLE occlusion device implant in the future - Back on eliquis and tolerating well. May require reduced dose if Hgb drops. 6. Anemia - etiology unknown - recommend stool guiac - resumed Eliquis 5mg BID as no acute bleeding are seen 7. Elevated WBC with no obvious sign of infection Tikosyn loading completed and QTc stable ( ~464ms now. Was 424ms at baseline). Ok to DC to rehab by EP, request 6 week follow up with [facility]. Continue Eliquis 5mg BID and tikosyn 125mcg BID. Paper tikosyn prescription for to take home is in front of chart.
--- NOTE | 2019-01-12 09:42 | PRG ---
DATE OF SERVICE: 01/12/2019 SUBJECTIVE: Mr. Mart is doing fine. No chest pain or pressure. OBJECTIVE: VITAL SIGNS: His blood pressure 146/66 and pulse 80. LUNGS: Clear. CARDIAC: Normal S1 and normal S2. LABORATORY DATA: Creatinine 1.76 and most recent potassium 3.4. CONCLUSION: 1. Diastolic heart failure, stable. 2. Atrial arrhythmias, controlled. PLAN: Plan is to go to rehab soon. No changes at this time. He will receive extra potassium today. We will change on the long-acting Cardizem. Job ID: [id number]
[2019-01-12] MEDS ORDERED: Potassium Chloride 20 MEQ TAB PO SCH (12:00)
[2019-01-12 16:14] VITALS: BP 118/58; TEMP 97.9
--- NOTE | 2019-01-12 16:32 | PRG ---
DATE OF SERVICE: 01/12/2019 SUBJECTIVE: Bin Mart is in no distress, states he feels great. We are hoping to get him into rehab soon. He remains in sinus rhythm. OBJECTIVE: VITAL SIGNS: He is afebrile. Blood pressure is 142/94, his heart rate is up in the 90s. IMPRESSION: 1. Chronic obstructive pulmonary disease with an exacerbation this admission. 2. Diastolic heart failure. 3. Recurrent atrial flutter, now in sinus rhythm on Tikosyn. Hopefully, we can get him into rehab soon. He has progressed nicely over the last 4 to 5 days. Job ID: [id number]
--- NOTE | 2019-01-12 17:37 | EKG ---
Test Reason : 2 HRS POST TIKOSYN Blood Pressure : / mmHG Vent. Rate : 080 BPM Atrial Rate : 080 BPM P-R Int : 150 ms QRS Dur : 088 ms QT Int : 412 ms P-R-T Axes : 095 003 039 degrees QTc Int : 475 ms Sinus rhythm with Premature atrial complexes Inferior infarct , age undetermined Abnormal ECG When compared with ECG of 08-JAN-2019 23:20, (Unconfirmed) No significant change was found Confirmed by DR. Kim BELTRAN ([id number]) on 01/12/2019 5:36:22 PM Referred By: SANDRA Confirmed By:DR. Kim BELTRAN
--- NOTE | 2019-01-12 17:40 | EKG ---
Test Reason : TIMED Blood Pressure : / mmHG Vent. Rate : 080 BPM Atrial Rate : 080 BPM P-R Int : 166 ms QRS Dur : 088 ms QT Int : 390 ms P-R-T Axes : 074 014 057 degrees QTc Int : 449 ms Normal sinus rhythm Nonspecific T wave abnormality Abnormal ECG When compared with ECG of 09-JAN-2019 11:04, (Unconfirmed) Premature atrial complexes are no longer Present Criteria for Inferior infarct are no longer Present Nonspecific T wave abnormality now evident in Lateral leads Confirmed by DR. Kim BELTRAN ([id number]) on 01/12/2019 5:40:29 PM Referred By: SANDRA Confirmed By:DR. Kim BELTRAN
--- NOTE | 2019-01-12 17:41 | EKG ---
Test Reason : Blood Pressure : / mmHG Vent. Rate : 077 BPM Atrial Rate : 077 BPM P-R Int : 170 ms QRS Dur : 068 ms QT Int : 402 ms P-R-T Axes : 087 013 034 degrees QTc Int : 454 ms Sinus rhythm with Fusion complexes and Possible Premature atrial complexes with Abberant conduction Otherwise normal ECG When compared with ECG of 09-JAN-2019 23:30, (Unconfirmed) Fusion complexes are now Present Abberant conduction is now Present Nonspecific T wave abnormality no longer evident in Lateral leads Confirmed by DR. Kim BELTRAN ([id number]) on 01/12/2019 5:41:21 PM Referred By: [facility] Confirmed By:DR. Kim BELTRAN
--- NOTE | 2019-01-12 17:49 | EKG ---
Test Reason : Blood Pressure : / mmHG Vent. Rate : 080 BPM Atrial Rate : 080 BPM P-R Int : 162 ms QRS Dur : 088 ms QT Int : 402 ms P-R-T Axes : 075 035 056 degrees QTc Int : 463 ms Normal sinus rhythm Normal ECG When compared with ECG of 10-JAN-2019 10:50, (Unconfirmed) Fusion complexes are no longer Present Abberant conduction is no longer Present Confirmed by DR. Kim BELTRAN ([id number]) on 01/12/2019 5:48:26 PM Referred By: SANDRA Confirmed By:DR. Kim BELTRAN
[2019-01-12] MEDS: Rosuvastatin 10 MG TAB PO SCH (20:00)
== END 2019-01-12 20:30 | DRG 291 ==
LOC: T4-A 11:22 → 2NO 18:37
PROVIDERS: ADMIT Internal Medicine Critical Care Medicine; ATTEND Internal Medicine Critical Care Medicine
DX: I13.0 Hypertensive heart and chronic kidney disease with heart failure and stage 1 through stage 4 chronic kidney disease, or unspecified chronic kidney disease (principal); I50.33 Acute on chronic diastolic (congestive) heart failure; J44.1 Chronic obstructive pulmonary disease with (acute) exacerbation; I48.92 Unspecified atrial flutter; I48.1 Persistent atrial fibrillation; N17.9 Acute kidney failure, unspecified; Z68.41 Body mass index [BMI] 40.0-44.9, adult; J96.11 Chronic respiratory failure with hypoxia; I25.10 Atherosclerotic heart disease of native coronary artery without angina pectoris; E66.9 Obesity, unspecified; N18.9 Chronic kidney disease, unspecified; D64.9 Anemia, unspecified; G47.30 Sleep apnea, unspecified; F32.9 Major depressive disorder, single episode, unspecified; D72.829 Elevated white blood cell count, unspecified; Z79.01 Long term (current) use of anticoagulants; Z79.52 Long term (current) use of systemic steroids; Z87.891 Personal history of nicotine dependence; Z99.89 Dependence on other enabling machines and devices; Z79.899 Other long term (current) drug therapy
CPT/HCPCS: 36415; 36430; 71045; 80048; 83880; 85007; 85025; 85027; 85652; 86850; 86900; 86901; 93005; 93010; 93306; 93798; 94640; 94660; J1650; J1940; J2920; J7620; J8499; P9016

== ENCOUNTER 2019-01-23 11:29 | Inpatient (IN) | payer MEDICARE, BC ==
--- NOTE | 2019-01-23 12:15 | CT ---
FHead CT without contrast 01/23/2019: COMPARISON: 09/20/2018 HISTORY: Head injury, fall TECHNIQUE: Axial CT imaging at 5 mm intervals from vertex through skull base without contrast FINDINGS: Imaged paranasal sinuses and mastoid air cells are well-aerated. Atherosclerotic calcificat ion noted at the skull base. No acute osseous abnormality. No intracranial hemorrhage, midline shift, or mass effect. Posterior scalp swelling noted near the vertex just to the left of midline. Areas of periventricular and deep white matter hypodensity noted, evidence of small vessel disease. IMPRESSION: Focal area of scalp swelling posteriorly near the vertex. No associated fracture or intra cranial hemorrhage.
--- NOTE | 2019-01-23 12:20 | CT ---
FCervical spine CT without contrast: 01/23/2019 COMPARISON: 03/06/2017 HISTORY: Injury, trauma, fall, pain TECHNIQUE: Axial CT imaging at 2.5 mm intervals through the cervical spine with coronal and sagittal reformatted imaging FINDINGS: C1 ring is intact. Occipital condyles, dens, and C1-2 articulation demonstrate no acute findings. Moderate degenerative change at the atlantoaxial interspace present. Craniocervical junction and cervicothoracic junction d emonstrate no acute findings. At C2-3 there is facet and uncovertebral osteophyte formation on the left. At C3-4 there is disc space narrowing and degenerative endplate change with anterior osteophyte forma tion as well as posterior osteophyte, bilateral uncovertebral osteophyte, and bilateral facet hypertr ophy, left greater than right. Significant central canal stenosis is suspected at C3-4, stable. At C4-5 there is prominent facet and uncovertebral osteophyte formation on the left with associated l eft neural foraminal stenosis. At C5-6 there is disc space narrowing with bilateral facet and uncovertebral osteophyte formation, ri ght greater than left. At C6-7 there is bilateral facet and uncovertebral osteophyte formation At C7-T1 there is bilateral facet hypertrophy, left greater than right. No prevertebral soft tissue swelling, displaced fracture, or evidence of dislocation. The imaged lung apices demonstrate mild increased linear interstitial density. There is scattered ath erosclerotic calcification of the carotid system. IMPRESSION: Chronic findings as detailed above. No acute fracture or dislocation seen.
[2019-01-23 12:39] LABS: #Basophils 0.1 thou/uL (0.0-0.2); #Eosinphils 0.1 thou/uL (0.0-0.7); #Lymphocytes 0.8 thou/uL (1.20-3.40); #Monocytes 0.7 thou/uL (0.11-0.59); #Neutrophils 14.1 thou/uL (1.40-6.50); %Basophils 0.5 % (0.0-1.0); %Eosinophils 0.5 % (0.0-10.0); %Lymphocytes 5.1 % (21.0-51.0); %Monocytes 4.3 % (0.0-10.0); %Neutrophils 89.6 % (42.0-75.0); Hemoglobin 6.2 g/dL (14.0-18.0); Mean Corpuscular HGB CONC 31.9 g/dL (32.0-36.0); Mean Corpuscular Hemoglobin 28.2 pg (27.0-31.0); Mean Corpuscular Volume 88.4 fL (78.0-98.0); Mean Platelet Volume 9.1 fL (7.4-10.4); Platelet Count 117 thou/uL (130-400); Red Blood Cell (RBC) Count 2.18 mill/uL (4.70-6.10); White Blood Cell (WBC) Count 15.8 thou/uL (4.8-10.8)
[2019-01-23 12:53] LABS: ALT (SGPT) 16 U/L (8-55); AST (SGOT) 10 U/L (5-34); Alkaline Phosphatase 51 U/L (40-150); Anion Gap 11 mmol/L (10-20); BUN (Urea Nitrogen) 47 mg/dL (8.4-25.7); Bilirubin, Total 0.7 mg/dL (0.2-1.2); Calc. Creatinine Clearance 0 mL/min (70-130); Calcium 8.3 mg/dL (7.8-10.44); Carbon Dioxide 26 mmol/L (23-31); Chloride 104 mmol/L (98-107); Estimated GFR-MDRD 34; Globulin 2.1 g/dL (2.4-3.5); Glucose 113 mg/dL (83-110); Potassium 3.9 mmol/L (3.5-5.1); Protein, Total 5.1 g/dL (5.8-8.1); Sodium 137 mmol/L (136-145)
[2019-01-23 13:15] LABS: Bilirubin Negative (Negative); Blood, Urine Negative (Negative); Clarity CLOUDY (Clear); Glucose, Urine (Dipstick) Negative (Negative); Leukocyte Moderate (Negative); Nitrite Negative (Negative); Protein, Urine (Dipstick) Negative (Neg-Trace); Specific Gravity, Urine 1.011 (1.002-1.036); Urobilinogen 0.2 mg/dL (0.2-1.0); pH, Urine 7.5 (5.0-9.0)
[2019-01-23 13:19] LABS: Bacteria/HPF None Seen HPF (None Seen); Hyaline Casts/LPF 0-3 HYALINE CAST LPF (0-3 Hyaline); Pathc Cast-AUWi Flag 0.13 (0-2.49); RBC/HPF 0-3 HPF (0-3); Squamous Epithelial None Seen HPF (0-3)
[2019-01-23] MEDS ORDERED: Acetaminophen 500 MG TAB ONE (13:27)
[2019-01-23] MEDS ORDERED: cefTRIAXone\\ROCEPHIN 2 GM VIAL ONE (13:47)
[2019-01-23] MEDS ORDERED: Ondansetron ODT 4 MG TAB SL PRN (17:39)
[2019-01-23] MEDS ORDERED: Ondansetron PF 4 MG/2 ML Vial IVP PRN (17:39)
[2019-01-23] MEDS ORDERED: Acetaminophen 325 MG TAB PO PRN (17:39)
--- NOTE | 2019-01-23 18:58 | RAD ---
RADIOGRAPH CHEST 1 VIEW: Date: 01/23/19 Time: 6:37 p.m. HISTORY: 78-year-old female with dyspnea and leukocytosis. COMPARISON: 01/06/19. FINDINGS: Mild irregular pulmonary densities at the bilateral lung bases, similar to prior study. No cardiomega ly. No consolidation. No pneumothorax. Subtle new suprahilar right upper lobe patchy mild pulmonary i nfiltrate-like density. Hyperinflation suggestive of COPD. IMPRESSION: 1. Suspicious for early right upper lobe pneumonia. 2. Bilateral basilar pulmonary densities. Uncertain whether these are recurrent acute infiltrate s or chronic changes. JN [] POS: CAITLIN
[2019-01-23] MEDS ORDERED: Sodium Chloride 0.9% 250 ML IV SCH (19:30)
[2019-01-23] MEDS: Cefepime 2 GM in Sodium Chloride 0.9% 100 ML IVPB SCH (20:33)
[2019-01-23] MEDS: Sodium Chloride 0.9% 1,000 ML IV SCH (20:33)
[2019-01-23] MEDS: Rosuvastatin 10 MG TAB PO SCH (20:34)
[2019-01-23] MEDS: Famotidine 20 MG TAB PO SCH (20:34)
[2019-01-23] MEDS ORDERED: Apixaban 5 MG TAB PO SCH (21:00)
--- NOTE | 2019-01-23 22:23 | CON ---
DATE OF CONSULTATION: 01/23/2019 REASON FOR CONSULTATION: Oral anticoagulation guidance and atrial fibrillation. HISTORY OF PRESENT ILLNESS: Mr. Mart is a pleasant 78-year-old gentleman, well known to our service. He underwent atrial fibrillation on 12/04. He had persisting atypical atrial flutter following his ablation and was discharged home in stable condition with rate control flutter. Since then, he has had an upper respiratory illness, which cause COPD and diastolic heart failure exacerbations, and he was readmitted to [facility] in December approximately 1 month post ablation. He has remained in a rate controlled atypical flutter while his heart failure and COPD were optimized. Due to his chronic kidney disease and his multiple comorbidities, he did not have many antiarrhythmic options for him. He was eventually started on renally dose Tikosyn, which he chemically converted to sinus rhythm. Also of note, the patient had his left atrial appendage isolated during his ablation in November and requires lifelong anticoagulation even if maintaining sinus rhythm to prevent embolic stroke issues. He was having some anemia issues during his hospitalization in December, but prior to discharge was tolerating Eliquis 5 mg p.o. b.i.d. without issue. Mr. Mart has recently been discharged from rehab, but was very weak and had two falls, one where he hit his head quite robustly. His was quite concerned with him on blood thinning medications and his weakness and brought him into the hospital. He is currently in sinus rhythm. He has large hematoma on the back of his head that is slowly oozing blood. Head CT was already performed and is negative for any acute intracranial bleeding issues. His hemoglobin is found to be 6.2, and he is awaiting transfusion as I evaluate him. Mr. Mart from a heart rhythm perspective reports he has been feeling well. He has not had any heart racing, palpitations, chest pain, pressure, syncope, near syncope, stroke, or stroke-like symptoms. Review of systems is positive for recent falls, weakness, weakness of his lower extremities, and low activity tolerance with shortness of breath, and also reporting lower oxygen levels unusual at home. He denies any orthopnea. Denies any peripheral edema. REVIEW OF SYSTEMS: Otherwise 12-point review of systems was conducted, is negative. ALLERGIES: NONE. PAST MEDICAL HISTORY: 1. Persistent atrial fibrillation, status post cardioversion on 11/06/2018 and PVAI on 12/04/2018 with left atrial appendage isolation. 2. Chronic diastolic heart failure. ANNAMARIA on 10/26/2018 revealed normal LVEF. Repeat ANNAMARIA on 12/05/2018 reveals EF 60% to 65%. 3. COPD with recent pneumonia and also spontaneous pneumothorax in July 2018. 4. Chronic renal failure. 5. Hypertension. 6. CHADS-VASc score of 6. 7. Anemia. PAST SURGICAL HISTORY: Cyst removal and left knee surgery. HOME MEDICATIONS: By our records include, 1. Xanax 0.5 mg p.o. b.i.d. as needed. 2. Prednisone taper currently at 10 mg a day. 3. Potassium chloride 20 mEq a day. 4. Losartan 100 mg p.o. daily. 5. Protonix 40 mg daily. 6. Torsemide 20 mg p.o. b.i.d. 7. Flomax 0.4 mg p.o. b.i.d. 8. ProAir inhaler 2 puffs q.4 hours as needed. 9. Proscar. 10. Avodart 0.5 mg daily. 11. Cardizem 30 mg b.i.d. 12. Eliquis 5 mg b.i.d. 13. Crestor 10 mg daily. 14. Dulera two puffs b.i.d. SOCIAL HISTORY: Negative for tobacco, quit few years ago. Occasional alcohol with social basis but no heavy intake. He is , lives with his . Has a supportive family. Denies illicit drug use. FAMILY HISTORY: Positive for CAD with his father, age of onset is unknown. Objective, vital signs are stable in the ER record for review. IMAGING STUDIES: EKG reveals normal sinus rhythm. QTc is [address] and cervical spine CT were performed. Negative for fracture or intracranial hemorrhage. Creatinine is 1.9 (most recently 1.76 by recent hospitalization in [place]). PHYSICAL EXAMINATION: GENERAL: The patient is alert and oriented. Speech is clear. Affect is appropriate. He has a large hematoma on the occipital region that is currently draining some bloody fluid. HEENT: Pupils are equal, round, reactive, and accommodating to light. Oral mucosa is moist and pink with adequate dentition. NECK: Supple without jugular venous distention. HEART: His heart rate is irregularly irregular with crisp S1 and S2. PMI is nondisplaced. LUNGS: Clear to auscultation bilaterally without wheezes, crackles, or rhonchi. ABDOMEN: Soft and nontender without palpable masses. EXTREMITIES: Warm and dry to touch and well perfused. There is no clubbing, cyanosis, or edema. Gait was not assessed. IMPRESSION: 1. Recent falls with weakness, likely secondary to anemia. 2. Anemia, hemoglobin 6.2. 3. History of atrial arrhythmias, currently maintaining sinus rhythm with a Tikosyn 125 mcg p.o. b.i.d. 4. Oral anticoagulation on Eliquis with ongoing anemia. 5. Chronic renal disease, mildly elevated as seen above with creatinine going from 1.7 to 1.9 in the past month. 6. History of diastolic heart failure. 7. History of COPD. PLAN AND RECOMMENDATIONS: 1. EKG was performed at bedside for QTc evaluation with continued Tikosyn administration. QTc was 479 milliseconds and stable on Tikosyn. Recommend continuing therapy with Tikosyn 125 mcg p.o. b.i.d. for arrhythmia suppression. 2. The patient has had his left atrial appendage isolated and is also still recovering from his recent ablation and ultimately recommendations for continued anticoagulation but at a reduced dose. I recommend reducing Eliquis to 2.5 mg p.o. b.i.d. once medically feasible and if acute bleeding issues are under control, also recommend evaluating for potential GI bleed given his increasing weakness and recent falls with low hemoglobin. We will see him back in clinic and discuss Watchman for left atrial appendage closure eventually once his current medical issues are stabilized. Thank you for allowing us to participate in the care of this patient. Job ID: [id number]
--- NOTE | 2019-01-24 00:19 | HP ---
CHIEF COMPLAINT: Mechanical fall and recent increased weakness as well as shortness of breath. HISTORY OF PRESENT ILLNESS: Mr. Mart is a pleasant 78-year-old man who was recently discharged from inpatient rehab one day ago and states he felt significantly better and stronger at the time of discharge. Since going home, he has noted increased weakness and shortness of breath. He had a near fall yesterday due to sudden weakness in the lower extremities. He denies having any numbness , but states that he all of a sudden felt them go out from underneath him. He denies any injury and was able to lower himself down and catch his fall. He denies experiencing any chest pain or dizziness at that time. Today, the patient was presenting for an appointment at the sleep center when he tripped at the doorway causing him to fall backward. He hit the back of his head and denies any loss of consciousness. He had a mild headache that has since subsided. Denies any preceding symptoms such as dizziness, lightheadedness, chest pain. Has not had any visual changes or vomiting since the head injury. In the ER, he underwent a brain CT that showed a focal area of scalp swelling posteriorly near the vertex. No associated fracture or intracranial hemorrhage. He also underwent a CT of the cervical spine, which showed chronic changes but no acute fractures or dislocation. In the ER, he underwent laboratory studies notable for an elevated white count of 15.8. His hemoglobin was low at 6.2. He had a platelet count of 117. Electrolytes notable for an elevated creatinine of 1.93, slightly bumped from baseline. Liver function studies were unremarkable. He underwent urinalysis that showed moderate amount of leukocyte esterase and greater than 50 white blood cells. He was admitted for UTI and anemia. He received 1 unit of packed red blood cells in the ER. The patient states he is chronically anemic. He has received blood transfusion during his last admission and underwent guaiac studies that were negative. He denies having any melena or bright red blood per stool. No hematuria. Has not had any hematemesis. REVIEW OF SYSTEMS: The patient denies having any fevers, chills, or sweats. Denies having any headaches or dizziness. He does report generalized weakness for the last 2 days. Has also been experiencing shortness of breath, but he is on oxygen at baseline. His confirms he does seem a little bit more short of breath than usual. The patient denies again having any chest pain or palpitations. No abdominal pain or cramping. All other review of systems are negative. PAST MEDICAL HISTORY: 1. CKD. 2. Chronic anemia. 3. Hypertension. 4. COPD. 5. Multiple blood transfusions. 6. Cyst removal x2. 7. Left knee surgery. 8. Atrial fibrillation, status post cardiac ablation in 2019. 9. On O2 at home. SOCIAL HISTORY: The patient was recently discharged home from inpatient rehab. He lives with his . He denies any alcohol use. He is a former smoker, but quit more than 10 years ago. Denies any illicit drug use. ALLERGIES: ADHESIVE, OTHERWISE NO KNOWN DRUG ALLERGIES. CURRENT MEDICATIONS: 1. Losartan. 2. Potassium chloride. 3. Albuterol. 4. Pepcid. 5. Eliquis. 6. Aspirin. 7. Prednisone. 8. Torsemide. 9. Diltiazem. 10. Tamsulosin. 11. Tikosyn. 12. Sertraline. PHYSICAL EXAMINATION: GENERAL: The patient appears well developed, nourished. He is in no acute distress. During examination, he did at times seem to become breathless and needing to take a break from talking. VITAL SIGNS: HR 73, respirations 18, O2 saturation 93% on 2 L of oxygen by nasal cannula, blood pressure 106/56. HEENT: Head is notable for a small contusion at the back of his head near the crown without any depressed skull fractures or active bleeding. No laceration noted. He seems to have a superficial abrasion. Pupils are equal, round, and reactive to light. Sclerae are without icterus. Extraocular movements are normal. No nystagmus. Oropharynx is clear. NECK: Supple. LUNGS: No wheezes, rales, or rhonchi. Decreased breath sounds at the bases. CARDIAC: Regular rate and rhythm. ABDOMEN: Soft, nontender, nondistended. Normoactive bowel sounds present. No guarding or rigidity. No renal angle tenderness. EXTREMITIES: No lower limb edema. NEUROLOGIC: Alert and oriented x3. SKIN: Without rash or jaundice. INVESTIGATIONS: The investigations obtained in the ED are as mentioned above. IMPRESSION AND PLAN: Mr. Mart is a pleasant 78-year-old, recently discharged from inpatient rehab one day ago, who has had progressive weakness and slight worsening shortness of breath from his baseline since then. He had a mechanical fall today, but does report having a near fall yesterday due to lower extremity weakness. He is being admitted for presumed urinary tract infection. The patient denies having any dysuria or urinary frequency. Urinalysis is notable for moderate leukocyte esterase and greater than 50 white blood cells. Urine culture is pending. Given the worsened shortness of breath from baseline and leukocytosis, I have requested a chest x-ray to assess for underlying pneumonia. I have also requested a lactic acid, CK, and BNP. The patient has received 1 unit of packed red blood cells. We will continue to monitor his H and H and provide the 2nd unit if needed. Guaiac test requested. The patient has never undergone endoscopic procedures, but denies any symptoms of gastrointestinal bleed. It very well may be possible that his shortness of breath is more so associated with symptomatic anemia. 1. Hypertension. We will resume home medications and monitor blood pressure. 2. Congestive heart failure. We will resume home medications and continue fluid restrictions as well as monitor input and output. 3. Chronic obstructive pulmonary disease. We will continue to monitor O2 saturations. Awaiting chest x-ray to rule out underlying infection. We will continue DuoNeb. He will continue CPAP at night. We will resume inhalers. 4. Gastrointestinal prophylaxis. 5. Deep venous thrombosis prophylaxis. The patient is already on anticoagulation with Eliquis. Hold given low Hb. 6. Full code status. His surrogate decision maker is his , Genoveva Mart and his daughter, Rosa Escalona. The patient's case was discussed with Dr. Root who agrees with the plan of care as described above. Job ID: [id number] [facility]
[2019-01-24 07:30] LABS: Hemoglobin 7.2 g/dL (14.0-18.0); Mean Corpuscular HGB CONC 31.5 g/dL (32.0-36.0); Mean Corpuscular Hemoglobin 27.7 pg (27.0-31.0); Mean Corpuscular Volume 87.6 fL (78.0-98.0); Platelet Count 113 thou/uL (130-400); RBC Distribution Width 17.9 % (11.5-14.5); Red Blood Cell (RBC) Count 2.59 mill/uL (4.70-6.10); White Blood Cell (WBC) Count 15.4 thou/uL (4.8-10.8)
[2019-01-24 07:35] LABS: Anion Gap 13 mmol/L (10-20); BUN (Urea Nitrogen) 38 mg/dL (8.4-25.7); Calc. Creatinine Clearance 51 mL/min (70-130); Calcium 8.1 mg/dL (7.8-10.44); Carbon Dioxide 22 mmol/L (23-31); Chloride 107 mmol/L (98-107); Estimated GFR-MDRD 45; Glucose 93 mg/dL (83-110); Potassium 3.7 mmol/L (3.5-5.1); Sodium 138 mmol/L (136-145)
[2019-01-24] MEDS: Mometasone/Formoterol 120 PUFF INHALER INH SCH ×2 (07:35→20:14)
[2019-01-24] MEDS: Dutasteride 0.5 MG CAP PO SCH (08:55)
[2019-01-24] MEDS: Cefepime 2 GM in Sodium Chloride 0.9% 100 ML IVPB SCH ×2 (08:55→20:31)
[2019-01-24] MEDS: Losartan 25 MG TAB PO SCH (08:56)
[2019-01-24] MEDS: Aspirin 81 mg Enteric Coated Tablet PO SCH (08:57)
[2019-01-24] MEDS: Dofetilide 0.125 MG CAP PO SCH ×2 (08:57→20:29)
[2019-01-24] MEDS: Torsemide 20 MG TAB PO SCH ×2 (08:57→14:52)
[2019-01-24] MEDS: Tamsulosin HCl 0.4 MG CAP PO SCH (08:57)
[2019-01-24] MEDS ORDERED: Famotidine 20 MG TAB PO SCH (09:00)
[2019-01-24] MEDS: Acetaminophen 325 MG TAB PO PRN ×2 (10:13→20:30)
[2019-01-24] MEDS: Fluticasone Propionate Nasal Spray 16 gm Bottle NASAL SCH (10:15)
[2019-01-24] MEDS: Sodium Chloride 0.65% Nasal 44 ML BOT EA NARE PRN (10:16)
[2019-01-24 10:39] LABS: #Basophils 0.1 thou/uL (0.0-0.2); #Eosinphils 0.2 thou/uL (0.0-0.7); #Lymphocytes 0.8 thou/uL (1.20-3.40); #Monocytes 0.9 thou/uL (0.11-0.59); #Neutrophils 13.4 thou/uL (1.40-6.50); %Basophils 0.4 % (0.0-1.0); %Lymphocytes 5.4 % (21.0-51.0); %Monocytes 6.1 % (0.0-10.0); %Neutrophils 87.2 % (42.0-75.0); Anisocytosis SLIGHT = 6-15 cells (100X) (0-5/hpf); Burr Cells SLIGHT = 2-5 cells (100X) (0-1/hpf); Hypochromia SLIGHT = 6-15 cells (100X) (0-5/hpf); MDiff Complete? YES; Microcytosis SLIGHT = 6-15 cells (100X) (0-5/hpf); Platelet Morphology Comment Appears Decreased; Polychromasia SLIGHT = 2-3 cells (100X) (0-2/hpf); Schistocytes SLIGHT = 2-5 cells (100X) (0-1/hpf)
[2019-01-24] MEDS: Vancomycin HCl 1 GM in Premix Bag 1 BAG IVPB SCH (14:52)
[2019-01-24] MEDS: Sodium Chloride 0.9% 1,000 ML IV SCH (16:00)
--- NOTE | 2019-01-24 17:29 | PDOC.PN ---
- Subjective Encounter Start Date: 01/24/19 Encounter Start Time: 17:27 Patient lying in bed with family at bedside. He denies chest pain, palpitations. He reports some shortness of breath upon standy at bedside commode. Hgb improved to 7.2 s/p transfusion. - Objective Resuscitation Status - Order Detail: 01/23/19 18:12 Resuscitation Status Routine Co-Sign Provider: Resuscitation Status: FULL: Full Resuscitation Discussed with: Patient MAR Reviewed: Yes Vital Signs & Weight: Vital Signs (12 hours) Temp Pulse Resp BP BP BP Pulse Ox 01/24/19 15:24 98.4 F 83 17 115/52 L 94 L 01/24/19 14:37 80 20 01/24/19 11:33 97.9 F 78 17 116/64 91 L 01/24/19 11:04 01/24/19 10:28 85 20 01/24/19 08:56 79 158/84 H 01/24/19 07:37 93 L 01/24/19 07:36 78 20 93 L 01/24/19 07:16 98.3 F 79 19 158/84 H 90 L Pulse Ox 01/24/19 15:24 01/24/19 14:37 01/24/19 11:33 01/24/19 11:04 90 L 01/24/19 10:28 01/24/19 08:56 01/24/19 07:37 01/24/19 07:36 01/24/19 07:16 Weight Weight 195 lb 15.855 oz I&O: 01/23/19 01/24/19 01/25/19 06:59 06:59 06:59 Intake Total 1700 Output Total 800 Balance 900 Result Diagrams: 01/24/19 06:43 01/24/19 06:43 Radiology Reviewed by me: Yes Phys Exam - Physical Examination Constitutional: NAD HEENT: moist MMs, oral pharynx no lesions Neck: supple Coarse breath sounds noted Cardiovascular: no significant murmur Gastrointestinal: soft, positive bowel sounds Musculoskeletal: no edema, pulses present Neurological: non-focal, moves all 4 limbs Lymphatic: no nodes Psychiatric: normal affect, A&O x 3 Skin: cap refill <2 seconds Deviation from normal: Diffuse bruising noted upper extremities Dx/Plan (1) UTI (urinary tract infection) due to Enterococcus Code(s): N39.0 - URINARY TRACT INFECTION, SITE NOT SPECIFIED; B95.2 - ENTEROCOCCUS THE CAUSE OF DISEASES CLASSIFIED ELSEWHERE Status: Acute (2) NNEKA (acute kidney injury) Code(s): N17.9 - ACUTE KIDNEY FAILURE, UNSPECIFIED Status: Acute Comment: creatinine improved to 5.27 today, likely due ATN. (3) Acute on chronic diastolic (congestive) heart failure Code(s): I50.33 - ACUTE ON CHRONIC DIASTOLIC (CONGESTIVE) HEART FAILURE Status : Acute (4) Atrial fibrillation Code(s): I48.91 - UNSPECIFIED ATRIAL FIBRILLATION Status: Chronic Comment: Intermittent. Has been in sinus. Historically only had it when having BRAD. Therapeutic on INR and rate is appropriate to the clinical scenario. (5) COPD (chronic obstructive pulmonary disease) Status: Chronic Qualifiers: COPD type: emphysema Emphysema type: unspecified Qualified Code(s): J43.9 - Emphysema, unspecified (6) HTN (hypertension) Code(s): I10 - ESSENTIAL (PRIMARY) HYPERTENSION Status: Chronic Qualifiers: Hypertension type: essential hypertension Qualified Code(s): I10 - Essential (primary) hypertension Comment: controlled (7) Pneumonia Code(s): J18.9 - PNEUMONIA, UNSPECIFIED ORGANISM Status: Resolved Comment: Persistent on CXR. On cefepime. (8) Acute on chronic anemia Code(s): D64.9 - ANEMIA, UNSPECIFIED Status: Acute - Plan cont current plan of care, plan discussed w/ family, PT/OT * Continue IV abx for pneumonia and UTI * Urine cultures showing Enterococcus * GI consulted due to acute on chronic anemia, Hgb improved s/p tranfusion. GI planning EGD in the am * Dr Shipman ordering daily chest x rays to access resolution of pneumonia * Hold anticoagulation at this time, Dr Brandt recommended Eliquis 2.5 when anemia stable * Repeat CBC and BMP in am
--- NOTE | 2019-01-24 17:53 | CON ---
DATE OF CONSULTATION: 01/24/2019 REQUESTING PHYSICIAN: DOTTY Vasquez REASON FOR CONSULTATION: Anemia. HISTORY OF PRESENT ILLNESS: Bin Mart Junior is a very pleasant 78-year-old man, a patient of my GI colleague, Dr. Stanley Odom. He has a history of GERD, for which he takes Nexium every day. His last EGD and colonoscopy were within the past year in April 2018. EGD showed mild distal esophagitis and colonoscopy showed only sigmoid diverticulosis and 2 small benign polyps and internal hemorrhoids. The polyps were completely removed. The patient has no chronic gastrointestinal symptoms. He denies any overt gastrointestinal bleeding. No melena or hematochezia. No hematemesis. He has been on Eliquis for a long time for atrial fibrillation. He had an atrial flutter ablation in November and notably he needs lifelong anticoagulation due to an atrial appendage. He has COPD and diastolic heart failure. He also has chronic anemia. It appears his baseline is about 9. Several weeks ago, he got 2 units of RBC transfusion. FOBT at that time was negative. He was admitted to the hospital yesterday after tripping and falling and hitting the back of his head. He has significant scalp hematoma and blood loss from this. Upon admission, hemoglobin was lower than normal at 6.2. He has received 1 unit RBC transfusion and hemoglobin came up to 7.2. Through all this, he has had no overt gastrointestinal bleeding. He was evaluated by Dr. Brandt, who recommended evaluation for possible GI bleed. As the patient has been feeling chronic dizziness and lightheadedness, it is thought anemia is possibly contributing to this. The patient is also being treated for an enterococcal urinary tract infection while here. He is feeling a bit better today. REVIEW OF SYSTEMS: Full review of systems including constitutional, head, eyes, ears, nose, throat, GI, , cardiovascular, respiratory, musculoskeletal, and neurologic systems are negative except as noted in the HPI. PAST MEDICAL HISTORY: Atrial flutter with ablation in November 2018, diastolic CHF, chronic kidney disease, COPD, knee surgery, chronic anemia, GERD, and hypertension. SOCIAL HISTORY: The patient was recently discharged from inpatient rehab. He lives with his . He is a former smoker, but quit over 10 years ago. No alcohol or drug use. ALLERGIES: ADHESIVE. OUTPATIENT MEDICATIONS: 1. Losartan. 2. Potassium chloride. 3. Albuterol. 4. Pepcid. 5. Nexium 40 mg daily. 6. Eliquis 5 mg b.i.d. 7. Aspirin. 8. Prednisone. 9. Torsemide. 10. Diltiazem. 11. Tamsulosin. 12. Tikosyn. 13. Sertraline. PHYSICAL EXAMINATION: VITAL SIGNS: Temperature 97.9, pulse 78, blood pressure 116/64, and 91% oxygen saturation on 2 L nasal cannula. GENERAL: Chronically ill, but nontoxic appearing 78-year-old gentleman, sitting up in bed comfortably, in no distress. SKIN: He has a posterior scalp hematoma. He has significant bruising to the upper extremities bilaterally. No jaundice. EYES: No scleral icterus. Extraocular movements intact. ENT: Mucous membranes moist. No oral lesions. LYMPH: No submandibular or supraclavicular lymphadenopathy. THYROID: Nontender to palpation. HEART: Irregular rhythm. LUNGS: No respiratory distress. Distant breath sounds bilaterally. ABDOMEN: Bowel sounds present. Soft and nontender to palpation. EXTREMITIES: No peripheral edema. VESSELS: Radial pulses 2+ bilaterally. NEURO: Cranial nerves 2 through 12 intact bilaterally. LABORATORY STUDIES: Hemoglobin on admission was 6.2 with normal MCV 88.4, WBC 15.8, and platelets 117. This morning after RBC transfusion, hemoglobin is up to 7.2, WBC 15.4, and platelets 113. Sodium 138, potassium 3.7, BUN 38, creatinine 1.49. Lactic acid 3.0. LFTs all normal. BNP 295.2. Albumin 3.0. Urinalysis shows greater than 50 wbc's. Urine culture shows presumptive enterococcus and blood culture showed no growth to-date. IMAGING STUDIES: CT of this spine showed no acute fracture dislocation. CT of the head showed posterior scalp swelling, but no acute intracranial abnormality. Chest x-ray showed changes in COPD and also a right upper lobe infiltrate. ASSESSMENT AND PLAN: 1. Acute on chronic anemia. 2. Chronic gastroesophageal reflux disease. The patient does have a chronic normocytic anemia without any evidence of overt bleeding, in the context of chronic Eliquis use and need for continued anticoagulation. Some of his acute decline may just be secondary to his trauma and scalp hematoma. However, concern has been raised for possible more chronic occult bleeding lesion given his chronic anemia. I do not think he needs any repeat colonoscopy as the last one was within the past year and there were no significant findings. I do think it would be worthwhile to proceed with EGD to assure no erosive gastritis or peptic ulcer disease as a contributor to his anemia. Note, he is already taking daily Nexium. We will plan for diagnostic esophagogastroduodenoscopy tomorrow. We will have him n.p.o. after midnight. The patient desires to proceed. Thank you for the consultation. Please call at anytime with questions or concerns. Job ID: [id number]
--- NOTE | 2019-01-24 20:02 | PRG ---
DATE OF SERVICE: 01/24/2019 SUBJECTIVE: His events have been reviewed. To refresh, he had syncope in the parking lot after getting out of car to go to Dr. Mary's office. He landed on his posterior head with an extremely loud thud according to the . He has a large ecchymotic area. He is on anticoagulants, but fortunately had no evidence of a parenchymal brain bleed. He is admitted for workup of a hemoglobin of 6. He has had no bright red blood per rectum. He says he has not felt well since he got home from rehab. He got 1 unit of blood. His hemoglobin only went up 1 g. So, I have ordered 2 more units of blood. He is not wheezing. He is in no distress. His chest x-ray shows no pulmonary edema. Remainder of his exam is unremarkable. Platelets are borderline low at 113. His creatinine is 1.49, down from 1.93 yesterday. IMPRESSION AND PLAN: 1. Anemia, most likely gastrointestinal blood loss in the phase of anticoagulants. His anticoagulants are on hold. 2. Recent recurrent atrial flutter in sinus rhythm. 3. Chronic kidney disease. 4. Diastolic dysfunction. 5. Chronic obstructive pulmonary disease. We met with all family and answered all their questions. He will be transfused 2 more units. He is tentatively scheduled for endoscopy tomorrow. I believe he is stable for that. Job ID: [id number]
[2019-01-24] MEDS: Rosuvastatin 10 MG TAB PO SCH (20:29)
[2019-01-24] MEDS: Famotidine 20 MG TAB PO SCH (20:29)
[2019-01-25] MEDS: Mometasone/Formoterol 120 PUFF INHALER INH SCH ×2 (07:04→19:28)
[2019-01-25] MEDS ORDERED: Ketamine 50 MG/ML (10ML VIAL) ONE (08:06)
--- NOTE | 2019-01-25 09:29 | RAD ---
FPortable chest radiograph: 01/25/2019 COMPARISON: 01/06/2019 and 01/23/2019 HISTORY:Evaluate pneumonia, airspace disease noted in the right suprahilar region on 01/23/2019 chest r adiograph FINDINGS: Increased linear interstitial density noted bilaterally with pulmonary hyperinflation. Subt le asymmetric increased density in the right suprahilar region. No pneumothorax lobar consolidation o r alveolar edema. IMPRESSION: Subtle hazy asymmetric increased density in the right suprahilar region suggesting improv ing infectious pneumonitis. Recommend follow-up to full resolution. No focal consolidation or alveola r edema.
[2019-01-25] MEDS ORDERED: PROPOFOL 200 MG/20 ML VIAL ONE (10:03)
[2019-01-25] MEDS: Cefepime 2 GM in Sodium Chloride 0.9% 100 ML IVPB SCH (12:16)
[2019-01-25] MEDS: Losartan 25 MG TAB PO SCH (12:17)
[2019-01-25] MEDS: Tamsulosin HCl 0.4 MG CAP PO SCH (12:17)
[2019-01-25] MEDS: Dofetilide 0.125 MG CAP PO SCH ×2 (12:28→20:40)
--- NOTE | 2019-01-25 13:00 | OP ---
DATE OF PROCEDURE: 01/25/2019 CUPOLA REPAIRER SURGEON: None. PROCEDURE PERFORMED: Esophagogastroduodenoscopy with control of hemorrhage (APC treatment). INDICATIONS: Acute on chronic anemia in a patient on chronic anticoagulation with Eliquis. MEDICATIONS: See Anesthesia record. FINDINGS: After discussion of the risks, benefits, and alternatives of the procedure, informed consent was obtained and witnessed. Pre-endoscopic cardiopulmonary examination was satisfactory. Time-out was performed before sedation was achieved. Sedation was achieved with Anesthesia assistance in the endoscopy unit. A Pentax adult upper endoscope was placed into the oropharynx and passed through the cricopharyngeus under direct visualization. The esophageal mucosa appeared normal throughout with a normal-appearing Z-line. The endoscope was advanced into the stomach. Forward and retroflexed views of the entire gastric mucosa were obtained. There was no evidence of any old blood or active bleeding in the stomach. In the gastric body along the greater curvature, there is an arteriovenous malformation measuring about 7 to 8 mm in diameter. There was no active bleeding from the AVM at this time. I proceeded to treat the AVM. We used argon plasma coagulation at 2 L/minute and 25 lund to completely ablate the lesion with good result. Hemostasis was maintained. The remainder of the gastric mucosa was examined. There was some mild erythema in the gastric antrum, but no erosions or ulcerations. The endoscope was passed through the pylorus and into the first and second portions of the duodenum, which appeared normal. The upper endoscope was completely withdrawn and the patient allowed to recover. The patient tolerated the procedure well. There were no immediate postprocedure complications. IMPRESSION: 1. 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 Treated with argon plasma coagulation, with good result, hemostasis maintained. 2. Mild gastric antral erythema. 3. Otherwise, normal esophagogastroduodenoscopy. RECOMMENDATIONS: 1. Advance diet. 2. We would have him on a twice daily oral proton pump inhibitor for the next month, then cut back to once daily dosing thereafter. 3. I would recommend continuing to hold Eliquis for another 5 days, if possible. Please call back if needed. Job ID: [id number]
[2019-01-25 13:48] LABS: Vancomycin, Trough 9.9 ug/mL
[2019-01-25] MEDS: Aspirin 81 mg Enteric Coated Tablet PO SCH (14:44)
[2019-01-25] MEDS: Fluticasone Propionate Nasal Spray 16 gm Bottle NASAL SCH (14:44)
[2019-01-25] MEDS: Dutasteride 0.5 MG CAP PO SCH (14:44)
[2019-01-25] MEDS: Torsemide 20 MG TAB PO SCH ×2 (14:44→14:45)
[2019-01-25] MEDS: Acetaminophen 325 MG TAB PO PRN (14:45)
[2019-01-25 14:48] LABS: #Eosinphils 0.2 thou/uL (0.0-0.7); #Lymphocytes 0.7 thou/uL (1.20-3.40); #Monocytes 0.7 thou/uL (0.11-0.59); #Neutrophils 8.7 thou/uL (1.40-6.50); %Basophils 0.4 % (0.0-1.0); %Eosinophils 1.8 % (0.0-10.0); %Lymphocytes 6.9 % (21.0-51.0); %Monocytes 6.5 % (0.0-10.0); %Neutrophils 84.5 % (42.0-75.0); Hemoglobin 8.5 g/dL (14.0-18.0); Mean Corpuscular HGB CONC 32.6 g/dL (32.0-36.0); Mean Corpuscular Hemoglobin 28.9 pg (27.0-31.0); Mean Corpuscular Volume 88.7 fL (78.0-98.0); Mean Platelet Volume 9.5 fL (7.4-10.4); Platelet Count 87 thou/uL (130-400); RBC Distribution Width 16.9 % (11.5-14.5); Red Blood Cell (RBC) Count 2.94 mill/uL (4.70-6.10); White Blood Cell (WBC) Count 10.2 thou/uL (4.8-10.8)
[2019-01-25 14:58] LABS: Anion Gap 12 mmol/L (10-20); BUN (Urea Nitrogen) 31 mg/dL (8.4-25.7); Calc. Creatinine Clearance 45 mL/min (70-130); Calcium 7.8 mg/dL (7.8-10.44); Carbon Dioxide 24 mmol/L (23-31); Chloride 105 mmol/L (98-107); Estimated GFR-MDRD 40; Glucose 115 mg/dL (83-110); Potassium 3.4 mmol/L (3.5-5.1); Sodium 138 mmol/L (136-145)
[2019-01-25] MEDS ORDERED: Vancomycin HCl 1.25 GM in Sodium Chloride 0.9% 250 ML 250 ML IVPB SCH (15:00)
[2019-01-25] MEDS: Sodium Chloride 0.9% 1,000 ML IV SCH (16:56)
[2019-01-25] MEDS: Vancomycin HCl 1 GM in Premix Bag 1 BAG IVPB SCH (16:57)
--- NOTE | 2019-01-25 17:06 | PDOC.PN ---
- Subjective Encounter Start Date: 01/25/19 Encounter Start Time: 17:04 Patient lying in bed with family at bedside. He denies any chest pain, palpitations or abdominal pain. He reports good bowel movement this morning. He also states shortness of breath improved today. GI performed EGD which showed AVM which was ablated. Urine culture showing sensitivity to levaquin - Objective Resuscitation Status - Order Detail: 01/23/19 18:12 Resuscitation Status Routine Co-Sign Provider: Resuscitation Status: FULL: Full Resuscitation Discussed with: Patient MAR Reviewed: Yes Vital Signs & Weight: Vital Signs (12 hours) Temp Pulse Resp BP Pulse Ox 01/25/19 16:00 98 01/25/19 14:03 79 20 94 L 01/25/19 12:18 86 01/25/19 11:52 98.1 F 86 18 143/72 H 92 L 01/25/19 10:16 83 20 92 L 01/25/19 09:11 98.1 F 83 19 133/62 92 L 01/25/19 07:36 98.1 F 81 19 155/73 H 93 L 01/25/19 07:30 98 01/25/19 07:03 75 18 96 Weight Weight 195 lb 15.855 oz I&O: 01/24/19 01/25/19 01/26/19 06:59 06:59 06:59 Intake Total 1700 2790 350 Output Total 800 Balance 900 2790 350 Result Diagrams: 01/25/19 14:26 01/25/19 14:26 Radiology Reviewed by me: Yes Phys Exam - Physical Examination Constitutional: NAD HEENT: moist MMs, oral pharynx no lesions Neck: no nodes, supple Respiratory: no wheezing, clear to auscultation bilateral Cardiovascular: RRR, no significant murmur Gastrointestinal: soft, no distention, positive bowel sounds Musculoskeletal: no edema, pulses present Neurological: moves all 4 limbs Psychiatric: normal affect, A&O x 3 Skin: cap refill <2 seconds Dx/Plan (1) UTI (urinary tract infection) due to Enterococcus Code(s): N39.0 - URINARY TRACT INFECTION, SITE NOT SPECIFIED; B95.2 - ENTEROCOCCUS THE CAUSE OF DISEASES CLASSIFIED ELSEWHERE Status: Acute (2) NNEKA (acute kidney injury) Code(s): N17.9 - ACUTE KIDNEY FAILURE, UNSPECIFIED Status: Acute Comment: creatinine improved to 5.27 today, likely due ATN. (3) Acute on chronic diastolic (congestive) heart failure Code(s): I50.33 - ACUTE ON CHRONIC DIASTOLIC (CONGESTIVE) HEART FAILURE Status : Acute (4) Atrial fibrillation Code(s): I48.91 - UNSPECIFIED ATRIAL FIBRILLATION Status: Chronic Comment: Intermittent. Has been in sinus. Historically only had it when having BRAD. Therapeutic on INR and rate is appropriate to the clinical scenario. (5) COPD (chronic obstructive pulmonary disease) Status: Chronic Qualifiers: COPD type: emphysema Emphysema type: unspecified Qualified Code(s): J43.9 - Emphysema, unspecified (6) HTN (hypertension) Code(s): I10 - ESSENTIAL (PRIMARY) HYPERTENSION Status: Chronic Qualifiers: Hypertension type: essential hypertension Qualified Code(s): I10 - Essential (primary) hypertension Comment: controlled (7) Pneumonia Code(s): J18.9 - PNEUMONIA, UNSPECIFIED ORGANISM Status: Resolved Comment: Persistent on CXR. On cefepime. (8) Acute on chronic anemia Code(s): D64.9 - ANEMIA, UNSPECIFIED Status: Acute (9) AVM (arteriovenous malformation) of colon Code(s): K55.20 - ANGIODYSPLASIA OF COLON WITHOUT HEMORRHAGE Status: Acute - Plan cont current plan of care, plan discussed w/ family, continue antibiotics, PT/OT * Hold anticoagulation at this time per GI recommendations * Urine culture showing sensitivity to Levaquin * chest xray shows improvement of pneumonia * Will d/c IV antibiotics and transition to Levaquin q48h * Recheck CBC and BMP in am * Monitor EKG for QT changes
[2019-01-25] MEDS: Rosuvastatin 10 MG TAB PO SCH (20:40)
[2019-01-25] MEDS: Famotidine 20 MG TAB PO SCH (20:40)
[2019-01-26] MEDS: Mometasone/Formoterol 120 PUFF INHALER INH SCH ×2 (07:08→20:06)
[2019-01-26] MEDS: Sodium Chloride 0.9% 1,000 ML IV SCH (07:30)
[2019-01-26] MEDS: Losartan 25 MG TAB PO SCH (09:02)
[2019-01-26] MEDS: Aspirin 81 mg Enteric Coated Tablet PO SCH (09:02)
[2019-01-26] MEDS: Torsemide 20 MG TAB PO SCH ×2 (09:03→14:45)
[2019-01-26] MEDS: Tamsulosin HCl 0.4 MG CAP PO SCH (09:03)
[2019-01-26] MEDS: Dofetilide 0.125 MG CAP PO SCH ×2 (09:04→20:33)
[2019-01-26] MEDS: Dutasteride 0.5 MG CAP PO SCH (09:04)
[2019-01-26] MEDS: Sodium Chloride 0.65% Nasal 44 ML BOT EA NARE PRN (09:11)
[2019-01-26] MEDS: Fluticasone Propionate Nasal Spray 16 gm Bottle NASAL SCH (09:12)
[2019-01-26] MEDS ORDERED: Furosemide 40 MG/4 ML VIAL SLOW IVP SCH (11:00)
--- NOTE | 2019-01-26 11:06 | PRG ---
DATE OF SERVICE: 01/26/2019 SUBJECTIVE: The patient is seen and examined at the bedside. He is still very short of breath, even walking to the bathroom is a big problem. He is exhausted when he comes back from the bathroom. OBJECTIVE: VITAL SIGNS: Blood pressure is 137/70, pulse is 83, temperature is 98.1, respirations 19, and O2 saturation is 100% on 2 L by nasal cannula. HEENT: His head is atraumatic and normocephalic. Eyes are PERRLA. Sclerae are nonicteric. Oral mucosa is moist. NECK: Supple. LUNGS: Emphysematous, a few rales bilaterally present. No wheezing. HEART: S1, S2 normal. No S3. No S4. ABDOMEN: Soft, nontender. Bowel sounds are present. No organomegaly. EXTREMITIES: No clubbing, cyanosis, or edema. NEUROLOGICAL: He is alert and oriented x4. There is no any motor deficits. LABORATORY DATA: None today. IMPRESSION: 1. Chronic obstructive pulmonary disease exacerbation. 2. Intermittent chronic atrial fibrillation. 3. Urinary tract infection with Enterococcus. 4. Pneumonia. 5. 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 6. Acute on chronic anemia. 7. Hypertension. PLAN: Plan is to restart his Eliquis on the 30 of January as per GI recommendations. Start him on prednisone 40 mg once a day. Continue current regimen with levofloxacin every 48 hours since his renal function is off and continue inhaled steroids and continue DuoNebs. Job ID: [id number]
--- NOTE | 2019-01-26 11:19 | PRG ---
DATE OF SERVICE: 01/26/2019 SUBJECTIVE: Bin Mart says he is more short of breath than he was on Saturday. OBJECTIVE: He is afebrile, heart rate is in 80s, blood pressure 137/70, oximetry is 100% on 2 L. Intake and outputs not recorded. Lungs are clear. Heart is regular rate and rhythm. Abdomen is soft. IMPRESSION: 1. Diastolic heart failure, which is probably stable. 2. Chronic obstructive pulmonary disease, which is probably stable. 3. Blood loss anemia. 4. Dyspnea on exertion. PLAN: There is a small chance that hemoglobin of 8.5 yesterday is contributing to his dyspnea, so I will transfuse him another unit today and check hemoglobin tomorrow. Unfortunately, no hemoglobin was done today. I will continue to follow. Job ID: [id number]
--- NOTE | 2019-01-26 14:11 | PRG ---
DATE OF SERVICE: 01/26/2019 SUBJECTIVE: The patient is short of breath, dyspnea with exertion. He is eating well nevertheless without nausea, vomiting, abdominal pain. No overt bleeding noted. PHYSICAL EXAMINATION: VITAL SIGNS: Temperature 98.1, blood pressure 107/64, and pulse 93. GENERAL: He is alert, conversant, no distress. HEENT: Shows anicteric sclerae. Oropharynx is moist. CV: Shows normal S1 and S2. Regular rate and rhythm. CHEST: Shows breath sounds. ABDOMEN: Soft, mildly protuberant, nontender. Good bowel sounds. EXTREMITIES: Show no edema. LABORATORY DATA: WBC is 10.2, hemoglobin 8.5 yesterday, platelet count of 87. ASSESSMENT: 1. Acute on chronic anemia. 2. 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 3. Chronic obstructive pulmonary disease. 4. Atrial fibrillation. 5. Hypertension. 6. Pneumonia/urinary tract infection. RECOMMENDATIONS: 1. Overall doing fine from GI standpoint. 2. Continue to hold Fiteeza for another four days. 3. We will follow. Job ID: [id number]
--- NOTE | 2019-01-26 18:18 | PRG ---
DATE OF SERVICE: 01/26/2019 SUBJECTIVE: Mr. Mart is doing fair. Still dyspneic with ambulation. Denies dizziness, or loss of consciousness. OBJECTIVE DATA: VITAL SIGNS: Blood pressure is 107/66, heart rate 79, respirations 20, temperature 98.2 degrees Fahrenheit. GENERAL: Alert and oriented man, in no apparent distress. NECK: Supple. Jugular veins slightly distended. CHEST: Coarse without crackles. HEART: Sounds are regular to rate and rhythm. No murmur or gallop. ABDOMEN: Benign. Bowel sounds positive. EXTREMITIES: Lower extremities without edema, clubbing, or cyanosis. DATABASE: EKG is reviewed reveals sinus rhythm, rate of 80 beats per minute. QTc is 479 milliseconds. LABORATORY DATA: The white cell count is 10.2, hemoglobin 8.5 on 01/25/2019. The platelet counts is 87. Sodium 138, potassium 3.4, BUN is 31, creatinine 1.66. ASSESSMENT AND PLAN: Mr. Mart is a pleasant 78-year-old man with prior history of advanced chronic obstructive pulmonary disease, diastolic heart failure, atrial fibrillation, status post venous isolation in November who then had recurrence of atrial flutter and required Tikosyn last admit for stabilization. He has issues with diastolic heart failure and COPD exacerbation resulting in respiratory failure, now though presented with a hemoglobin drop so far GI evaluation revealed a solitary gastric vascular ectasia, post ablation with Argon. For now, he is also off anticoagulants despite history of left atrial appendage ablation. 1. Atrial fibrillation, currently well suppressed post ablation with Tikosyn. Continue as such. QTc is stable. No proarrhythmia recurrent. 2. History of left atrial appendage isolation which could lead to high risk of stroke given continuous sinus rhythm. Ideally, he should be resuming oral anticoagulants as soon as possible. 3. Anemia of unclear origin, most likely GI as per GI consultants. 4. Diastolic heart failure, on diuretics. Continue euvolemia. PLAN: Continue current management and they can start low-dose Eliquis 2.5 mg twice a day once tolerated. Job ID: [id number]
[2019-01-26] MEDS: Rosuvastatin 10 MG TAB PO SCH (20:32)
[2019-01-26] MEDS: Famotidine 20 MG TAB PO SCH (20:32)
[2019-01-26] MEDS: Acetaminophen 325 MG TAB PO PRN (20:39)
[2019-01-27] MEDS: Mometasone/Formoterol 120 PUFF INHALER INH SCH ×2 (06:27→20:14)
[2019-01-27 07:02] LABS: Hemoglobin 9.2 g/dL (14.0-18.0); Mean Corpuscular HGB CONC 32.7 g/dL (32.0-36.0); Mean Corpuscular Hemoglobin 29.3 pg (27.0-31.0); Mean Corpuscular Volume 89.6 fL (78.0-98.0); Mean Platelet Volume 9.7 fL (7.4-10.4); Platelet Count 97 thou/uL (130-400); RBC Distribution Width 16.1 % (11.5-14.5); Red Blood Cell (RBC) Count 3.14 mill/uL (4.70-6.10); White Blood Cell (WBC) Count 8.4 thou/uL (4.8-10.8)
[2019-01-27 07:06] LABS: Anion Gap 11 mmol/L (10-20); BUN (Urea Nitrogen) 24 mg/dL (8.4-25.7); Calc. Creatinine Clearance 48 mL/min (70-130); Calcium 8.1 mg/dL (7.8-10.44); Carbon Dioxide 25 mmol/L (23-31); Chloride 106 mmol/L (98-107); Estimated GFR-MDRD 43; Glucose 96 mg/dL (83-110); Potassium 3.1 mmol/L (3.5-5.1); Sodium 139 mmol/L (136-145)
[2019-01-27] MEDS ORDERED: predniSONE 20 MG TAB PO SCH (08:00)
[2019-01-27] MEDS: Aspirin 81 mg Enteric Coated Tablet PO SCH (08:10)
[2019-01-27] MEDS: Dutasteride 0.5 MG CAP PO SCH (08:10)
[2019-01-27] MEDS: Losartan 25 MG TAB PO SCH ×2 (08:10→08:15)
[2019-01-27] MEDS: Tamsulosin HCl 0.4 MG CAP PO SCH (08:10)
[2019-01-27] MEDS: Torsemide 20 MG TAB PO SCH ×2 (08:11→14:45)
[2019-01-27] MEDS: Fluticasone Propionate Nasal Spray 16 gm Bottle NASAL SCH (08:11)
[2019-01-27] MEDS: Dofetilide 0.125 MG CAP PO SCH ×2 (08:11→20:58)
[2019-01-27] MEDS: Potassium Chloride 20 MEQ TAB PO SCH ×2 (08:18→12:41)
[2019-01-27 08:40] LABS: Band 4 % (5-11); Eosinophils 2 % (0-10); Lymphocytes 20 % (21-51); MDiff Complete? YES; Monocytes 8 % (0-10); Myelocyte 1 % (0-0); Neutrophil 65 % (42-75); Ovalocytes SLIGHT = 2-5 cells (100X) (0-1/hpf); Platelet Morphology Comment Appears Decreased; Polychromasia SLIGHT = 2-3 cells (100X) (0-2/hpf)
--- NOTE | 2019-01-27 09:38 | PRG ---
DATE OF SERVICE: 01/27/2019 SUBJECTIVE: Mr. Mart states he remains short of breath. He has received 4 units of packed red blood cells. He did receive intravenous Lasix yesterday. OBJECTIVE: VITAL SIGNS: His blood pressure is 139/77, pulse 68 and regular. LUNGS: Clear. CARDIAC: Normal S1 and normal S2. ABDOMEN: Soft and nontender. EXTREMITIES: No edema. LABORATORY DATA: Hemoglobin is back to 9.2. The patient is back on oral torsemide. ASSESSMENT: 1. Diastolic heart failure, appears to be stable. 2. Atrial arrhythmias, stable. PLAN: 1. We will hold diltiazem for now. 2. He is on losartan. 3. He is on torsemide 20 mg twice a day. We will recheck with him tomorrow. I think he appears to be stable currently. Job ID: [id number]
--- NOTE | 2019-01-27 12:26 | PRG ---
DATE OF SERVICE: 01/27/2019 SUBJECTIVE: The patient is seen and examined at the bedside. He feels better. His breathing is improved. His appetite is fair. OBJECTIVE: VITAL SIGNS: Blood pressure is 124/71, pulse is 74, temperature is 97.8, respiratory rate is 22, O2 saturation is 94% on 2 L by nasal cannula. HEENT: His sclerae nonicteric. Oral mucosa is moist. NECK: Supple. HEART: S1, S2, somewhat irregular. No S3. No S4. ABDOMEN: Soft, nontender. Bowel sounds are present. No organomegaly. LUNGS: Emphysematous. EXTREMITIES: No clubbing, cyanosis, or edema. NEUROLOGICAL: He is alert and oriented x4. There is no any motor or sensory deficit present. Cranial nerves are intact. LABORATORY DATA: Labs showed sodium of 139, potassium 3.1, chloride 106, CO2 of 25, BUN 24, creatinine 1.57. The rest of chemistry within normal limits. Hemoglobin of 9.2, hematocrit 28.1, white count 8.4, and platelet count is 97,000. Microbiology, fecal occult blood test came back positive. IMPRESSION: 1. Obstructive pulmonary disease exacerbation. 2. Intermittent chronic atrial fibrillation. 3. Urinary tract infection with Enterococcus. 4. Pneumonia versus pneumonitis. 5. 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 6. Acute on chronic anemia secondary to above mentioned. 7. Hypertension. 8. Left atrial appendage isolation. 9. Diastolic heart failure. PLAN: As mentioned above, he is going to be restarted on his anticoagulation, Eliquis 2.5 mg twice a day on the 30 of January. He was transfused with additional unit of packed red blood cells last night, so he had in total 4 units. We are going to replace his potassium with 40 mEq q.4 hours x2 doses. He will continue on his Tikosyn, Avodart Zoloft, torsemide small dose and Flomax along with Crestor and potassium. Job ID: [id number]
--- NOTE | 2019-01-27 13:40 | PDOC.CTH ---
Cardiology Progress Note - Subjective EP PROGESS NOTE: 01/27/19 Seen as follow up for OAC/ AF. No EP issues/complaints overnight. Remains off OAC. - Objective Vital Signs Temp Pulse Resp BP Pulse Ox 01/27/19 13:02 18 97 01/27/19 11:17 97.8 F 74 22 H 124/71 94 L 01/27/19 10:23 74 16 96 01/27/19 08:10 97.7 F 86 18 111/51 L 98 01/27/19 06:28 94 L 01/27/19 06:27 76 18 94 L 01/27/19 06:25 76 16 94 L 01/27/19 04:00 98.1 F 68 18 139/77 97 Weight 195 lb 15.855 oz 01/26/19 01/27/19 01/28/19 06:59 06:59 06:59 Intake Total 350 1180 Output Total 2 1500 Balance 348 -320 - Physical Examination General/Neuro: alert & oriented x3, NAD Neck: carotid US brisk, no JVD present Lungs: CTA, unlabored respirations Heart: PMI normal, RRR Abdomen: NT/ND, soft - Telemetry Telemetry Rhythm: SR - Labs Result Diagrams: 01/27/19 06:27 01/27/19 06:27 - Assessment/Plan 1. 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 COPD 3. Atrial fibrillation - s/p PVAI 12/04/18 with post ablation atrial flutter - tikosyn 0.125mcg BID maintaining NSR. QTc stable. renally dosed 4. Left atrial appendage isolation - requires life long anticoagulation - risk for atrial thrombus and CVA even while in SR if not on OAC - per GI, ok to resume Eliquis - consider renal dosed lovenox until eliquis can resume if H/H stable 5. Diastolic heart failure -euvolemic Resume Eliquis 2.5mg BID
--- NOTE | 2019-01-27 16:42 | PRG ---
DATE OF SERVICE: 01/27/2019 SUBJECTIVE: Bin Mart says he is feeling a little better than he felt yesterday. He is back on prophylactic dose Eliquis. OBJECTIVE: VITAL SIGNS: He is afebrile heart rate 82, respiratory rate 16, oximetry is 95% on 2 L, blood pressure 124/71. LUNGS: Clear. HEART: Regular rhythm. ABDOMEN: Soft. LABORATORY DATA: Hemoglobin is 9.2 after receiving a unit of blood. I would have expected a bigger rise in hemoglobin from 8.5 two days ago. We need to believe he was lower than 8 yesterday when his hemoglobin was checked. We need to continue to closely monitor his hemoglobin. He says he wants to be evaluated for rehab. His hemoglobin could be watched closely there. It could be in his best interest to get him to exercise again and stay in rehab for longer periods of time. Job ID: [id number] MTDD
--- NOTE | 2019-01-27 18:24 | PRG ---
DATE OF SERVICE: 01/27/2019 SUBJECTIVE: The patient looks better and feels better today. Breathing is a bit easier. He has no problem eating. There is no nausea, vomiting, or abdominal pain. PHYSICAL EXAMINATION: VITAL SIGNS: Temperature is 97.6, blood pressure 123/65, pulse of 87. GENERAL: He is alert, conversant, no distress. HEENT: Shows anicteric sclerae. Oropharynx is moist. CV: Shows normal S1 and S2. Regular rate and rhythm. CHEST: Shows a breath sound, but reduced. No wheezing. ABDOMEN: Mildly protuberant, but no distention or tympany. He has active bowel sounds. Soft, nontender. EXTREMITIES: Shows no edema. LABORATORY DATA: Hemoglobin is 9.2 (after 4 units of RBC), platelet count of 97, WBCs 84. ASSESSMENT: 1. Acute on chronic anemia. 2. Status post ablation of solitary gastric vascular ectasia on esophagogastroduodenoscopy 3 days ago. 3. Chronic obstructive pulmonary disease. 4. Atrial fibrillation, restarted on low-dose Eliquis today. 5. Hypertension. 6. Pneumonia. 7. Urinary tract infection. RECOMMENDATIONS: 1. Overall stable from GI standpoint without any overt bleeding. 2. I will monitor and trend blood count. Job ID: [id number]
[2019-01-27] MEDS: Rosuvastatin 10 MG TAB PO SCH (20:57)
[2019-01-27] MEDS: Famotidine 20 MG TAB PO SCH (20:57)
[2019-01-27] MEDS: Apixaban 2.5 MG TAB PO SCH (20:58)
--- NOTE | 2019-01-27 22:28 | EKG ---
Test Reason : Blood Pressure : / mmHG Vent. Rate : 080 BPM Atrial Rate : 080 BPM P-R Int : 168 ms QRS Dur : 088 ms QT Int : 416 ms P-R-T Axes : 000 001 050 degrees QTc Int : 479 ms Normal sinus rhythm Normal ECG When compared with ECG of 23-JAN-2019 14:53, (Unconfirmed) No significant change was found Confirmed by Amy NUNEZ ([id number]) on 01/27/2019 10:28:14 PM Referred By: LEATHA Confirmed By:Amy NUNEZ
[2019-01-28 06:37] LABS: Anion Gap 11 mmol/L (10-20); BUN (Urea Nitrogen) 27 mg/dL (8.4-25.7); Calc. Creatinine Clearance 50 mL/min (70-130); Calcium 8.2 mg/dL (7.8-10.44); Carbon Dioxide 24 mmol/L (23-31); Chloride 105 mmol/L (98-107); Estimated GFR-MDRD 45; Glucose 117 mg/dL (83-110); Potassium 3.9 mmol/L (3.5-5.1); Sodium 136 mmol/L (136-145)
[2019-01-28] MEDS: Mometasone/Formoterol 120 PUFF INHALER INH SCH ×2 (06:39→19:34)
[2019-01-28 06:59] LABS: Mean Corpuscular HGB CONC 33.1 g/dL (32.0-36.0); Mean Corpuscular Hemoglobin 29.4 pg (27.0-31.0); Mean Corpuscular Volume 88.9 fL (78.0-98.0); Mean Platelet Volume 9.3 fL (7.4-10.4); Platelet Count 115 thou/uL (130-400); RBC Distribution Width 16.2 % (11.5-14.5); Red Blood Cell (RBC) Count 3.08 mill/uL (4.70-6.10); White Blood Cell (WBC) Count 8.6 thou/uL (4.8-10.8)
[2019-01-28] MEDS: Torsemide 20 MG TAB PO SCH ×2 (08:02→13:42)
[2019-01-28] MEDS: Tamsulosin HCl 0.4 MG CAP PO SCH (08:02)
[2019-01-28] MEDS: Aspirin 81 mg Enteric Coated Tablet PO SCH (08:03)
[2019-01-28] MEDS: Losartan 25 MG TAB PO SCH (08:03)
[2019-01-28] MEDS: Apixaban 2.5 MG TAB PO SCH ×2 (08:03→21:18)
[2019-01-28] MEDS: predniSONE 20 MG TAB PO SCH (08:03)
[2019-01-28] MEDS: Fluticasone Propionate Nasal Spray 16 gm Bottle NASAL SCH (08:03)
[2019-01-28 08:09] LABS: Band 1 % (5-11); Eosinophils 2 % (0-10); Lymphocytes 18 % (21-51); MDiff Complete? YES; Monocytes 4 % (0-10); Neutrophil 75 % (42-75); Platelet Morphology Comment Appears Decreased; Polychromasia SLIGHT = 2-3 cells (100X) (0-2/hpf)
[2019-01-28] MEDS: Dutasteride 0.5 MG CAP PO SCH (08:23)
[2019-01-28] MEDS: Dofetilide 0.125 MG CAP PO SCH ×2 (08:23→21:20)
--- NOTE | 2019-01-28 13:54 | PDOC.PN ---
- Subjective Encounter Start Date: 01/28/19 Encounter Start Time: 13:52 Subjective: still weak in legs - Objective Resuscitation Status - Order Detail: 01/23/19 18:12 Resuscitation Status Routine Co-Sign Provider: Resuscitation Status: FULL: Full Resuscitation Discussed with: Patient SAMUEL Reviewed: Yes Vital Signs & Weight: Vital Signs (12 hours) Temp Pulse Resp BP Pulse Ox 01/28/19 13:46 88 18 143/64 H 94 L 01/28/19 10:33 92 16 92 L 01/28/19 08:20 94 L 01/28/19 08:09 90 18 94 L 01/28/19 07:10 97.8 F 91 18 153/79 H 90 L 01/28/19 06:37 86 16 92 L Weight Weight 195 lb 15.855 oz I&O: 01/27/19 01/28/19 01/29/19 06:59 06:59 06:59 Intake Total 1180 1560 Output Total 1500 300 Balance -320 1260 Result Diagrams: 01/28/19 06:12 01/28/19 06:12 Phys Exam - Physical Examination Neck: no JVD Respiratory: clear to auscultation bilateral Cardiovascular: RRR, no significant murmur Gastrointestinal: soft, positive bowel sounds Musculoskeletal: edema present Dx/Plan (1) Acute on chronic anemia Code(s): D64.9 - ANEMIA, UNSPECIFIED Status: Acute (2) UTI (urinary tract infection) due to Enterococcus Code(s): N39.0 - URINARY TRACT INFECTION, SITE NOT SPECIFIED; B95.2 - ENTEROCOCCUS THE CAUSE OF DISEASES CLASSIFIED ELSEWHERE Status: Acute (3) Acute on chronic diastolic (congestive) heart failure Code(s): I50.33 - ACUTE ON CHRONIC DIASTOLIC (CONGESTIVE) HEART FAILURE Status : Chronic (4) Atrial fibrillation Code(s): I48.91 - UNSPECIFIED ATRIAL FIBRILLATION Status: Chronic Qualifiers: Atrial fibrillation type: unspecified Qualified Code(s): I48.91 - Unspecified atrial fibrillation Comment: Intermittent. Has been in sinus. Historically only had it when having BRAD. Therapeutic on INR and rate is appropriate to the clinical scenario. (5) COPD (chronic obstructive pulmonary disease) Status: Chronic Qualifiers: COPD type: emphysema Emphysema type: unspecified Qualified Code(s): J43.9 - Emphysema, unspecified (6) HTN (hypertension) Code(s): I10 - ESSENTIAL (PRIMARY) HYPERTENSION Status: Chronic Qualifiers: Hypertension type: essential hypertension Qualified Code(s): I10 - Essential (primary) hypertension Comment: controlled (7) BRAD (obstructive sleep apnea) Code(s): G47.33 - OBSTRUCTIVE SLEEP APNEA (ADULT) (PEDIATRIC) Status: Chronic Comment: on CPAP while asleep (8) Pneumonia Code(s): J18.9 - PNEUMONIA, UNSPECIFIED ORGANISM Status: Resolved Qualifiers: Pneumonia type: due to Pneumococcus Comment: Persistent on CXR. On cefepime. - Plan cont antibx -: selected home meds -: cont O2 -: serial H&H. transfuse prn * .
--- NOTE | 2019-01-28 13:57 | PRG ---
DATE OF SERVICE: 01/28/2019 SUBJECTIVE: Mr. Mart is doing well. His hemoglobin today is 9 g. States he is feeling better. He walked several 100 feet with physical therapy. OBJECTIVE: VITAL SIGNS: Heart rate 92, respiratory rate 16, oximetry is 92% on 2 L, and blood pressure 153/79. Intake and output were 1560 and 300 out recorded. I doubt 300 out for 24 hours is accurate. LABORATORY DATA: White count 8.6, hemoglobin 9.0, and platelets 150,000. Sodium 136, potassium 3.9, chloride 105, bicarb 24, BUN 27, and creatinine 1.5. IMPRESSION AND PLAN: 1. Diastolic heart failure. 2. Deconditioning. 3. Chronic obstructive pulmonary disease, which is stable currently for recent episode of syncope brought on by gastrointestinal blood loss, appears to stop bleeding, although would not be surprised if he has more arteriovenous malformations. Actually, I feel his antibiotics can be discontinued since his reason for admission was anemia and syncope. We will continue with prophylactic dose Eliquis for now. We will continue 20 mg a day of prednisone. Zoloft 50 mg at bedtime for anxiety. We need to continue to watch his hemoglobin and intake and output. Job ID: [id number]
--- NOTE | 2019-01-28 15:34 | PDOC.CTH ---
Cardiology Progress Note - Subjective EP PROGESS NOTE: 01/28/19 Seen as follow up for OAC/ AF. No EP issues/complaints overnight. Restarted reduced dose eliquis 01/27 . - Objective Vital Signs Temp Pulse Resp BP Pulse Ox 01/28/19 14:17 90 16 93 L 01/28/19 13:46 88 18 143/64 H 94 L 01/28/19 10:33 92 16 92 L 01/28/19 08:20 94 L 01/28/19 08:09 90 18 94 L 01/28/19 07:10 97.8 F 91 18 153/79 H 90 L 01/28/19 06:37 86 16 92 L Weight 195 lb 15.855 oz 01/27/19 01/28/19 01/29/19 06:59 06:59 06:59 Intake Total 1180 1560 Output Total 1500 300 Balance -320 1260 - Physical Examination General/Neuro: alert & oriented x3, NAD Neck: carotid US brisk, no JVD present Lungs: CTA, unlabored respirations Heart: PMI normal, RRR Abdomen: NT/ND, soft - Telemetry Telemetry Rhythm: SR - Labs Result Diagrams: 01/28/19 06:12 01/28/19 06:12 - Assessment/Plan 1. 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 COPD 3. Atrial fibrillation - s/p PVAI 12/04/18 with post ablation atrial flutter - tikosyn 0.125mcg BID maintaining NSR. QTc stable. renal dose 4. Left atrial appendage isolation - requires life long anticoagulation - risk for atrial thrombus and CVA even while in SR if not on OAC - per GI, ok to resume Eliquis 01/27 PM 5. Diastolic heart failure -euvolemic Resumed Eliquis 2.5mg BID. 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
[2019-01-28] MEDS: Famotidine 20 MG TAB PO SCH (21:17)
[2019-01-28] MEDS: Rosuvastatin 10 MG TAB PO SCH (21:17)
[2019-01-29 06:26] LABS: Band 2 % (5-11); Eosinophils 3 % (0-10); Hemoglobin 8.4 g/dL (14.0-18.0); Lymphocytes 17 % (21-51); MDiff Complete? YES; Mean Corpuscular HGB CONC 31.5 g/dL (32.0-36.0); Mean Corpuscular Hemoglobin 28.1 pg (27.0-31.0); Mean Corpuscular Volume 89.1 fL (78.0-98.0); Mean Platelet Volume 9.2 fL (7.4-10.4); Metamyelocyte 1 % (0-0); Monocytes 8 % (0-10); Neutrophil 68 % (42-75); Platelet Count 138 thou/uL (130-400); Platelet Morphology Comment Appears Adequate; RBC Distribution Width 16.1 % (11.5-14.5); Reactive Lymphocytes 1 % (0-10); Red Blood Cell (RBC) Count 2.99 mill/uL (4.70-6.10); White Blood Cell (WBC) Count 8.3 thou/uL (4.8-10.8)
[2019-01-29 07:16] VITALS: BP 145/84; TEMP 97.8
[2019-01-29] MEDS: Losartan 25 MG TAB PO SCH (09:32)
[2019-01-29] MEDS: predniSONE 20 MG TAB PO SCH (09:32)
[2019-01-29] MEDS: Aspirin 81 mg Enteric Coated Tablet PO SCH (09:33)
[2019-01-29] MEDS: Dutasteride 0.5 MG CAP PO SCH (09:33)
[2019-01-29] MEDS: Dofetilide 0.125 MG CAP PO SCH (09:33)
[2019-01-29] MEDS: Apixaban 2.5 MG TAB PO SCH (09:34)
[2019-01-29] MEDS: Torsemide 20 MG TAB PO SCH ×2 (09:35→13:18)
[2019-01-29] MEDS: Tamsulosin HCl 0.4 MG CAP PO SCH (09:35)
[2019-01-29] MEDS: Fluticasone Propionate Nasal Spray 16 gm Bottle NASAL SCH (09:38)
[2019-01-29] MEDS: Mometasone/Formoterol 120 PUFF INHALER INH SCH (10:34)
--- NOTE | 2019-01-29 14:41 | DIS ---
DATE OF ADMISSION: 01/25/2019 DATE OF DISCHARGE: 01/29/2019 FINAL DIAGNOSES: Anemia, symptomatic; AV malformation of the colon; urinary tract infection; hypertension; chronic obstructive pulmonary disease; chronic kidney disease 3; atrial fibrillation, chronic anticoagulation. DISCHARGE MEDICATIONS: 1. Demadex 20 mg twice a day. 2. Flomax 0.4 mg a day. 3. Zoloft 50 mg a day. 4. Crestor 10 mg a day. 5. Dulera 2 puffs b.i.d. 6. Cozaar 100 mg a day. 7. Tikosyn 125 mcg a day. 8. Dutasteride 0.5 mg a day. 9. DuoNeb 3 mL q.4 hours p.r.n. 10. Pepcid 20 mg a day. 11. Eliquis 2.5 mg twice a day, starting tomorrow, 01/30. ALLERGIES: NONE. CODE STATUS: Full. PENDING AT TIME OF DISCHARGE: Nothing. HOSPITAL COURSE: [facility] The patient had a fall, increased weakness and anemia. His initial laboratory showed hemoglobin of 6.2, he was transfused. He is currently 8.4. His chronic anticoagulation was held. It is due to be resumed tomorrow. He was seen in consultation by Dr. Gabriel Reeves about the anemia. For diagnosis of acute on chronic anemia on 01/25/2019, he underwent esophagogastroduodenoscopy with control of hemorrhage. Single 7 to 8 mm AV malformation was found, which was treated with argon plasma coagulation. He was seen in consultation by Dr. Milind Brandt, Electrophysiology. therapy recommended continuing same. Seen by Dr. Jseús Shipman, Pulmonology. The patient has improved steadily during his stay. He has continued to be weak in his legs. He has been evaluated for PT and OT, and has been accepted at Rehab for strengthening. His current laboratory, hemoglobin 8.4, white count 8.3, and platelet count of 138,000. Chemistries reveal BUN of 27, creatinine 1.50 for chronic kidney disease stage 3. His urine culture reveals Enterococcus faecalis, which will be treated with ampicillin 500 mg 4 times a day for 7 days. At the time of discharge, the patient was in good spirits. Vital signs were stable. He was doing well. After rehab, he needs to be discharged to care of Dr. Gabriel Mary, his PCP. Job ID: [id number]
--- NOTE | 2019-01-29 17:23 | PRG ---
DATE OF SERVICE: 01/29/2019 SUBJECTIVE: Bin Mart is doing well. He has a small drop in his hemoglobin. He has no complaints. He says he feels well. OBJECTIVE: VITAL SIGNS: Stable. Blood pressure 178/72, heart rate 79, respiratory rate 14, and oximetry is 97%. LUNGS: Clear. IMPRESSION: 1. Diastolic heart failure, stable. 2. Hypertension. This will need to be watched closely, could be a little better controlled. 3. Chronic obstructive pulmonary disease, clinically stable. 4. Chronic respiratory failure with hypoxemia on oxygen. 5. Status post syncope associated with blood loss anemia secondary to arteriovenous malformation that has been cauterized. He probably should have a hemoglobin and hematocrit checked every other day while he is in the rehab environment. We will continue on a low dose of Eliquis. Job ID: [id number]
== END 2019-01-29 15:03 | DRG 377 ==
LOC: ERS 11:29 → T4-B 17:36 → OBSVTOIN 01-25 12:13
PROVIDERS: ADMIT Family Medicine; ATTEND Family Medicine
PROC: 30233N1 Transfusion of Nonautologous Red Blood Cells into Peripheral Vein, Percutaneous Approach (ICD-10-PCS; principal; 2019-01-25)
PROC: 0W3P8ZZ Control Bleeding in Gastrointestinal Tract, Via Natural or Artificial Opening Endoscopic (ICD-10-PCS; 2019-01-25)
DX: K55.21 Angiodysplasia of colon with hemorrhage (principal); I50.33 Acute on chronic diastolic (congestive) heart failure; J13 Pneumonia due to Streptococcus pneumoniae; I13.0 Hypertensive heart and chronic kidney disease with heart failure and stage 1 through stage 4 chronic kidney disease, or unspecified chronic kidney disease; N39.0 Urinary tract infection, site not specified; N17.9 Acute kidney failure, unspecified; J44.0 Chronic obstructive pulmonary disease with (acute) lower respiratory infection; I48.0 Paroxysmal atrial fibrillation; D64.9 Anemia, unspecified; K21.9 Gastro-esophageal reflux disease without esophagitis; B95.2 Enterococcus as the cause of diseases classified elsewhere; G47.33 Obstructive sleep apnea (adult) (pediatric); N18.3 Chronic kidney disease, stage 3 (moderate); Z99.81 Dependence on supplemental oxygen; Z88.9 Allergy status to unspecified drugs, medicaments and biological substances; Z79.01 Long term (current) use of anticoagulants; Z79.82 Long term (current) use of aspirin; Z79.899 Other long term (current) drug therapy
CPT/HCPCS: 36415; 36430; 51701; 70450; 71045; 72125; 80048; 80053; 80202; 81003; 81015; 82274; 82550; 83605; 83880; 85007; 85025; 85027; 86850; 86900; 86901; 87040; 87070; 87077; 87086; 87186; 87205; 93005; 93010; 94640; 94660; 96365; 96367; J0692; J0696; J1940; J2704; J3370; J7050; J7620; J8499; P9016

== ENCOUNTER → 2019-03-03 | Day surgery (SDC) | payer MEDICARE, BC ==
--- NOTE | 2019-03-03 16:50 | HP ---
HISTORY OF PRESENT ILLNESS: Mr. Mart presents to the office today complaining of weakness and shortness of breath. He says he started to feel like he felt right before he had syncope over the physicians center. He actually fell out in the parking lot, hit his head, had a scalp laceration, but fortunately on anticoagulants did not bleed into his brain. He tells me that he had a CBC done on Saturday, which showed hemoglobin of 7 g. He was sent over here to me, his says to arrange a transfusion. I tried to contact Dr. Mary's office, but all I got was answering machine. I elected to admit him. PHYSICAL EXAMINATION: VITAL SIGNS: On exam; pulse is 80, respiratory rate is 18, and oximetry is 92% on 2 L/minute. LUNGS: Clear. I do not hear any wheezes. HEART: Regular rhythm. ABDOMEN: Soft. EXTREMITIES: Without asymmetry. IMPRESSION AND PLAN: 1. Acute on chronic respiratory failure with hypoxia, clinically stable. 2. Chronic obstructive pulmonary disease without an exacerbation. 3. Chronic blood loss anemia, now approaching a symptomatic stage. He will be transfused 2 units packed cells. 4. Diastolic heart failure, currently stable. 5. Status post atrial ablation with recurrent atrial flutter as I recall in January, he spontaneously converted without any further intervention and only medical management. He was discharged on January 29. 6. History of arteriovenous malformations in the colon and probably in the small bowel. 7. Chronic kidney disease. 8. Anticoagulation with Eliquis 2.5 mg twice a day. This is a prophylactic dose. This was stopped by Dr. Mary yesterday. He will follow up with Dr. Mary in 2 days. He will receive 2 units of packed cells today. Hopefully, we will see significant clinical improvement by tomorrow. Job ID: [id number]
== END ==
LOC: SDC 12:55
PROVIDERS: ATTEND Internal Medicine Critical Care Medicine
PROC: 30233N1 Transfusion of Nonautologous Red Blood Cells into Peripheral Vein, Percutaneous Approach (ICD-10-PCS; principal; 2019-03-03)
DX: D50.0 Iron deficiency anemia secondary to blood loss (chronic) (principal); J96.21 Acute and chronic respiratory failure with hypoxia; J44.9 Chronic obstructive pulmonary disease, unspecified; N18.9 Chronic kidney disease, unspecified; Z79.01 Long term (current) use of anticoagulants; Z91.048 Other nonmedicinal substance allergy status; Z98.890 Other specified postprocedural states
CPT/HCPCS: 36430; 86850; 86900; 86901; 86920; P9016

== ENCOUNTER 2019-03-20 08:27 | Day surgery (SDC) | payer MEDICARE, BC ==
[2019-03-20] MEDS ORDERED: Sodium Chloride 0.9% 20 ML ONE (09:47)
[2019-03-20 15:28] VITALS: TEMP 97.6
[2019-03-20 15:29] VITALS: BP 187/90
== END 2019-03-20 15:30 | disposition home or self-care (01) ==
LOC: ONC/OP 08:27
PROVIDERS: ATTEND Internal Medicine
PROC: 30233N1 Transfusion of Nonautologous Red Blood Cells into Peripheral Vein, Percutaneous Approach (ICD-10-PCS; principal; 2019-03-20)
DX: K92.2 Gastrointestinal hemorrhage, unspecified (principal); D50.0 Iron deficiency anemia secondary to blood loss (chronic); Z91.048 Other nonmedicinal substance allergy status
CPT/HCPCS: 36430; 86850; 86900; 86901; P9016

== ENCOUNTER 2019-04-27 11:11 | Outpatient (CLI) | payer MEDICARE, BC ==
[2019-04-27 12:23] LABS: Hemoglobin 9.6 g/dL (14.0-18.0); Mean Corpuscular HGB CONC 31.6 g/dL (32.0-36.0); Mean Corpuscular Hemoglobin 29.1 pg (27.0-31.0); Mean Corpuscular Volume 91.8 fL (78.0-98.0); Mean Platelet Volume 7.7 fL (7.4-10.4); Platelet Count 353 thou/uL (130-400); RBC Distribution Width 17.3 % (11.5-14.5); Red Blood Cell (RBC) Count 3.29 mill/uL (4.70-6.10); White Blood Cell (WBC) Count 15.2 thou/uL (4.8-10.8)
[2019-04-27 12:29] LABS: INR-International Normal Ratio 1.4; PTT 32.7 SEC (22.9-36.1); Prothrombin Time 17.4 SEC (12.0-14.7)
[2019-04-27 12:45] LABS: Anion Gap 16 mmol/L (10-20); BUN (Urea Nitrogen) 53 mg/dL (8.4-25.7); Calc. Creatinine Clearance 0 mL/min (70-130); Calcium 9.2 mg/dL (7.8-10.44); Carbon Dioxide 26 mmol/L (23-31); Chloride 102 mmol/L (98-107); Estimated GFR-MDRD 27; Glucose 89 mg/dL (83-110); Potassium 4.2 mmol/L (3.5-5.1); Sodium 140 mmol/L (136-145)
--- NOTE | 2019-04-27 15:16 | EKG ---
Test Reason : Blood Pressure : / mmHG Vent. Rate : 088 BPM Atrial Rate : 088 BPM P-R Int : 158 ms QRS Dur : 088 ms QT Int : 390 ms P-R-T Axes : 077 013 043 degrees QTc Int : 471 ms Sinus rhythm with Premature atrial complexes Otherwise normal ECG Confirmed by ELVIS GARCIA ([id number]) on 04/27/2019 3:16:07 PM Referred By: SANDRA Confirmed By:ELVIS GARCIA
== END 2019-04-27 11:12 | disposition home or self-care (01) ==
LOC: LABBT 11:11
PROVIDERS: ATTEND Internal Medicine Cardiovascular Disease
DX: Z01.818 Encounter for other preprocedural examination (principal); I11.0 Hypertensive heart disease with heart failure; I50.32 Chronic diastolic (congestive) heart failure; I48.91 Unspecified atrial fibrillation
CPT/HCPCS: 80048; 85027; 85610; 85730; 93005; 93010

== ENCOUNTER 2019-04-29 08:44 | Day surgery (SDC) | payer MEDICARE, BC ==
[2019-04-27 11:27] VITALS: BMI 28.8
[2019-04-29] MEDS ORDERED: PROPOFOL 20 ML ONE ×2 (09:26→11:44)
[2019-04-29] MEDS ORDERED: PROPOFOL 200 MG/20 ML VIAL ONE (16:41)
--- NOTE | 2019-05-09 16:42 | ECHO ---
DATE OF PROCEDURE: 04/29/19 REASON FOR PROCEDURE: The patient is a 78-year-old male with prior history of atrial fibrillation and a Watchman device [employer]. Is here for a planned ANNAMARIA. The Watchman device was placed in March 13, 2019. PROCEDURE: The patient received propofol by Anesthesia specialist. After adequate level of sedation achieved, a standard transesophageal echocardiogram probe was passed into the esophagus without diff iculty. Patient tolerated the procedure well, no complications noted. RESULTS: Left atrium and left atrial appendage is well visualized. The Watchman device seems to be adequately seated. There is two leaks visualized. One adjacent to the left superior pulmonary vein side by the d evice and one by the aortic side of the device. Incomplete opacification seen behind the Watchman dev ice. Four out of four pulmonary veins were seen. The mitral valve has moderate regurgitation. Left atrial size is enlarged about 5.4 cm. The interatrial septum is with a small residual leak at the tra nsesophageal puncture site. Mild aortic regurgitation noted. Left ventricular systolic function appea rs to be preserved. The aortic valve is opening well. Three leaflets identified. The visualized porti on of ascending and descending aorta without aneurysm, dissection. There is adherent heavy atheroma s een in the descending aorta. CONCLUSION: 1. Adequately seated Watchman device with two residual leak and suboptimal opacification behind the Watchman device noted. 2. Left atrial enlargement. 3. Mild to moderate mitral regurgitation. 4. Normal left ventricular systolic function. 5. No pericardial effusion. PLAN: Continue current anticoagulation regimen. We will send CT for review for Dr. Kuhn for consideration of a coil closure.
== END 2019-04-29 13:13 | disposition home or self-care (01) ==
LOC: CCL 08:44
PROVIDERS: ATTEND Internal Medicine Cardiovascular Disease
PROC: B24BZZ4 Ultrasonography of Heart with Aorta, Transesophageal (ICD-10-PCS; principal; 2019-04-29)
DX: I48.91 Unspecified atrial fibrillation (principal); T82.538A Leakage of other cardiac and vascular devices and implants, initial encounter; I34.0 Nonrheumatic mitral (valve) insufficiency; I70.0 Atherosclerosis of aorta; Z79.01 Long term (current) use of anticoagulants; Z79.2 Long term (current) use of antibiotics; Z79.82 Long term (current) use of aspirin; Z79.899 Other long term (current) drug therapy; Z91.048 Other nonmedicinal substance allergy status; Z95.818 Presence of other cardiac implants and grafts; Z98.890 Other specified postprocedural states
CPT/HCPCS: 93312; J2704; J7620

== ENCOUNTER 2019-05-10 12:01 | Inpatient (IN) | payer MEDICARE, BC ==
--- NOTE | 2019-05-10 12:59 | RAD ---
SINGLE VIEW CHEST: HISTORY: Chest and lymph node pain since last Saturday. COMPARISON: 01/25/2019 FINDINGS: Single view of the chest show normal sized cardiomediastinal silhouette. There is no evidence of cons olidation, mass, or pleural effusion. The bones are unremarkable. IMPRESSION: No evidence of acute cardiopulmonary disease. POS: [facility]
[2019-05-10 13:16] LABS: Hemoglobin 9.1 g/dL (14.0-18.0); Mean Corpuscular Hemoglobin 28.2 pg (27.0-31.0); Mean Corpuscular Volume 91.2 fL (78.0-98.0); Mean Platelet Volume 7.5 fL (7.4-10.4); Platelet Count 351 thou/uL (130-400); RBC Distribution Width 16.7 % (11.5-14.5); Red Blood Cell (RBC) Count 3.22 mill/uL (4.70-6.10); White Blood Cell (WBC) Count 22.7 thou/uL (4.8-10.8)
[2019-05-10 13:30] LABS: ALT (SGPT) 18 U/L (8-55); AST (SGOT) 15 U/L (5-34); Albumin 3.3 g/dL (3.4-4.8); Alkaline Phosphatase 64 U/L (40-150); Anion Gap 12 mmol/L (10-20); BUN (Urea Nitrogen) 53 mg/dL (8.4-25.7); Bilirubin, Total 0.5 mg/dL (0.2-1.2); Calc. Creatinine Clearance 0 mL/min (70-130); Calcium 8.6 mg/dL (7.8-10.44); Carbon Dioxide 25 mmol/L (23-31); Chloride 100 mmol/L (98-107); Estimated GFR-MDRD 34; Globulin 1.9 g/dL (2.4-3.5); Glucose 98 mg/dL (83-110); Potassium 3.8 mmol/L (3.5-5.1); Protein, Total 5.2 g/dL (5.8-8.1); Sodium 133 mmol/L (136-145)
[2019-05-10 13:49] LABS: Anisocytosis SLIGHT = 6-15 cells (100X) (0-5/hpf); Hypochromia SLIGHT = 6-15 cells (100X) (0-5/hpf); Lymphocytes 2 % (21-51); MDiff Complete? YES; Monocytes 2 % (0-10); Neutrophil 96 % (42-75); Platelet Morphology Comment Appears Adequate
[2019-05-10] MEDS ORDERED: Morphine 4 MG/ML VIAL ONE (15:03)
[2019-05-10 16:03] LABS: Bilirubin Negative (Negative); Blood, Urine Negative (Negative); Clarity Clear (Clear); Glucose, Urine (Dipstick) Normal (Negative); Leukocyte Negative Leu/uL (Negative); Nitrite Negative (Negative); Protein, Urine (Dipstick) Negative (Neg-Trace); Urobilinogen Normal mg/dL (Less than 2)
[2019-05-10] MEDS ORDERED: Piperacillin/Tazobactam 3.375 GM VIAL ONE (16:49)
[2019-05-10] MEDS ORDERED: Sodium Chloride 0.9% 100 ML ONE (16:49)
--- NOTE | 2019-05-10 17:34 | HP ---
PRIMARY CARE PHYSICIAN: Dr. Mary. CHIEF COMPLAINT: Chest pain. HISTORY OF PRESENT ILLNESS: Mr. Mart is a pleasant 78-year-old gentleman, who has a history of hypertension as well as chronic atrial fibrillation. He recently underwent a Watchman device placement back in January and he then had a recent transesophageal echo done to evaluate the Watchman device to make sure it had proper placement. It was noted that he had a leak and possibly needed closure of the Watchman device. He says that he was doing fine until Saturday night, he developed some pain that started on his left side, then radiated to his right side, then to the middle of his back. Since he has had several procedures done recently and has been "in and out" of the hospital, this worried him, and as a result, he came to the ER for evaluation. The patient says the pain got so severe last night that he could not sleep. He says that he was having to take several tramadol in order to make it better. He says that the pain gets better if he lays on his back and puts pressure on his back. He is not really sure how it feels when he leans forward. He does have a history of COPD and he is on continuous home oxygen and says that he has not been any more short of breath than he normally is. When I came into the room to see him, he was having a productive cough. He says this just started today while he has been in the ER. He has not coughed up any phlegm and denies any hemoptysis. He also denies any fevers or chills, and he says that he has had poor appetite last night and today. When he was evaluated in the ER, he was found to have leukocytosis without any clear etiology, and given this and the chest pain, he is being admitted. REVIEW OF SYSTEMS: CONSTITUTIONAL: He denies any fevers or chills. No night sweats. He has had a 30-pound weight loss, but he attributes this to diuresis of fluid. He does admit to poor appetite. HEENT: He denies any headaches. No dizziness. No visual changes. No sore throat, rhinorrhea, or neck pain. No adenopathy. PULMONARY: As per history of present illness. CARDIOVASCULAR: He denies any PND. No orthopnea. No palpitations. He has had less swelling. GASTROINTESTINAL: No abdominal pain. No nausea. No vomiting. No change in bowels. No hematochezia or hematemesis. GENITOURINARY: No urinary frequency or hematuria. No hesitancy. MUSCULOSKELETAL: No muscle pains, weakness, or joint pains. NEUROLOGIC: No focal weakness or numbness. No seizures. PSYCHIATRIC: No symptoms of anxiety or depression. SKIN AND INTEGUMENT: He does note some easy bruising. He attributes this to the blood thinner, but no other skin lesions. PAST MEDICAL HISTORY: Significant for chronic atrial fibrillation, chronic respiratory failure with hypoxemia on home oxygen, COPD, hypertension, and chronic kidney disease stage 3. PAST SURGICAL HISTORY: He has had the Watchman device placed, recent transesophageal echo, placement of a temporary dialysis catheter, and cyst removal x2. ALLERGIES: ADHESIVES. SOCIAL HISTORY: He is a former smoker. He is . He drinks beer frequently. He lives with family. He would like to be a full code. FAMILY HISTORY: Significant for hypertension and cerebrovascular disease in his father and diabetes in his father as well. CURRENT MEDICATIONS: Include; 1. Losartan 100 mg once daily. 2. Potassium chloride 20 mEq daily. 3. Pepcid 20 mg once a day. 4. Eliquis 5 mg twice a day. 5. Prednisone 20 mg once a day. 6. Torsemide 40 mg daily. 7. Flomax 0.4 mg daily. 8. Sertraline 50 mg once a day. 9. Tikosyn 125 mcg twice a day. 10. Crestor 10 mg daily. 11. Avodart 0.5 mg once daily. 12. Nexium 40 mg daily. 13. Iron sulfate 325 mg once a day. PHYSICAL EXAMINATION: GENERAL: He is alert and oriented. He appears to be in no acute distress. VITAL SIGNS: Blood pressure was 137/66, heart rate 101, respiratory rate of 20 , and temperature is 97.9. HEENT: His pupils are equal, round, and reactive to light. Extraocular muscles are intact. Sclerae anicteric. Throat, no erythema. No exudates. NECK: No appreciable adenopathy. Elevated jugular venous distention. No bruits. LUNGS: Coarse and he has some mild expiratory wheeze. No rales. CARDIOVASCULAR: He had a normal S1 and S2. I did not appreciate S3 or S4. Heart sounds were slightly distant. I was not able to appreciate any murmurs, clicks , or rubs. ABDOMEN: Obese. It is soft, nontender, and nondistended. Positive for bowel sounds. Tympanic to percussion. EXTREMITIES: There is no calf tenderness. No joint effusions. NEUROLOGICAL: The exam is nonfocal. SKIN AND INTEGUMENT: He has some bruising on both of his upper extremities, but no rashes. LABORATORY DATA: Sodium is 133, potassium 3.8, chloride is 100, CO2 is 25, BUN of 53, creatinine 1.9, glucose is 98, and natriuretic peptide is 273. White blood cell count is 22.7, hemoglobin 9.1, hematocrit is 29.4, and platelet count is 351. Urinalysis is pending. IMAGING STUDIES: Chest x-ray shows heart size is borderline. He has some increased pulmonary vascular markings in the right base per my reading. There was no evidence of any effusion. EKG is pending. ASSESSMENT: This is a pleasant 78-year-old gentleman, who presents to the emergency room with chest pain, which is bilateral and atypical. He also has had a cough, which just started actually while he is in the emergency room and an elevated white blood cell count. I suspect he may have an early bronchitis or pneumonia. The chest x-ray is being read by the radiologist as being clear. However, it looks like he may have a little haziness in the right base. 1. He will be admitted for chest pain likely related to lung infection. He will be started on IV antibiotics to cover for healthcare associated organisms. Blood cultures have already been obtained from the ER. Given his recent Watchman procedure and transesophageal echo, we will get a transthoracic echo just to screen for potential problems such as pericardial effusion. We may also need to consult Cardiology or EP. 2. Chronic atrial fibrillation. We will continue Eliquis as well as the low- dose aspirin. Currently clinically, his heart rate is stable. 3. Chronic respiratory failure with hypoxemia due to chronic obstructive pulmonary disease. We will continue his home medications and DuoNeb as needed. 4. Hypertension. His blood pressure is currently controlled. Again, continue home medications as well as p.r.n. medicines. 5. Chronic kidney disease, stage 3. This is currently stable. 6. Chronic anemia. 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 Job ID: [id number] MTDD
[2019-05-10] MEDS ORDERED: hydrALAZINE 20 MG/ML VIAL SLOW IVP PRN (17:44)
[2019-05-10] MEDS ORDERED: Acetaminophen 325 MG TAB PO PRN (17:44)
[2019-05-10] MEDS: HYDROcodone/Acetaminophen 5/325 mg Tablet PO PRN ×2 (18:24→21:50)
[2019-05-10] MEDS: Mometasone/Formoterol 120 PUFF INHALER INH SCH (19:00)
[2019-05-10 20:10] LABS: Troponin I 0.032 ng/mL (< 0.028)
[2019-05-10] MEDS ORDERED: Vancomycin HCl 1 GM in Premix Bag 1 BAG IVPB SCH (21:00)
[2019-05-10] MEDS: Apixaban 5 MG TAB PO SCH ×2 (21:36→21:37)
[2019-05-10] MEDS: Rosuvastatin 10 MG TAB PO SCH (21:37)
[2019-05-10] MEDS: Piperacillin/Tazobactam 2.25 GM in Sodium Chloride 0.9% 100 ML IVPB SCH (22:15)
[2019-05-11 04:58] LABS: Anion Gap 12 mmol/L (10-20); BUN (Urea Nitrogen) 49 mg/dL (8.4-25.7); Calc. Creatinine Clearance 44 mL/min (70-130); Calcium 8.3 mg/dL (7.8-10.44); Carbon Dioxide 25 mmol/L (23-31); Chloride 103 mmol/L (98-107); Estimated GFR-MDRD 40; Glucose 92 mg/dL (83-110); Potassium 3.6 mmol/L (3.5-5.1); Sodium 136 mmol/L (136-145)
[2019-05-11 05:21] LABS: Band 4 % (5-11); Hemoglobin 9.1 g/dL (14.0-18.0); Lymphocytes 7 % (21-51); MDiff Complete? YES; Mean Corpuscular Hemoglobin 28.5 pg (27.0-31.0); Mean Corpuscular Volume 91.9 fL (78.0-98.0); Mean Platelet Volume 7.7 fL (7.4-10.4); Monocytes 5 % (0-10); Neutrophil 84 % (42-75); Platelet Count 276 thou/uL (130-400); RBC Distribution Width 16.8 % (11.5-14.5); White Blood Cell (WBC) Count 20.3 thou/uL (4.8-10.8)
[2019-05-11] MEDS: Piperacillin/Tazobactam 2.25 GM in Sodium Chloride 0.9% 100 ML IVPB SCH ×3 (06:18→21:36)
[2019-05-11] MEDS: Mometasone/Formoterol 120 PUFF INHALER INH SCH ×2 (06:41→18:39)
--- NOTE | 2019-05-11 07:32 | ULT ---
Venous duplex sonogram bilateral lower extremity HISTORY: Bilateral leg pain and edema. FINDINGS: Each common femoral vein and greater saphenous junction were evaluated along with each femo ral, deep femoral, popliteal, and posterior tibial vein. There is good color and spectral Doppler flow, compression, and augmentation. IMPRESSION: No sonographic evidence of DVT within either lower extremity.
[2019-05-11] MEDS ORDERED: Sodium Chloride 0.9% 10 ML ONE ×2 (07:55→14:10)
[2019-05-11] MEDS: Losartan 25 MG TAB PO SCH (09:27)
[2019-05-11] MEDS: Aspirin 81 mg Enteric Coated Tablet PO SCH (09:27)
[2019-05-11] MEDS: Apixaban 5 MG TAB PO SCH ×2 (09:28→21:34)
--- NOTE | 2019-05-11 10:21 | PDOC.PN ---
- Subjective Encounter Start Date: 05/11/19 Encounter Start Time: 10:20 Subjective: chest pain ,sharp, worse with movement. L mid axillary to R chest to post -: chest. no fever, chills - Objective Resuscitation Status - Order Detail: 05/10/19 16:46 Resuscitation Status Routine Resuscitation Status: FULL: Full Resuscitation MAR Reviewed: Yes Vital Signs & Weight: Vital Signs (12 hours) Temp Pulse Resp BP Pulse Ox 05/11/19 08:00 97 F L 92 18 118/63 96 05/11/19 06:43 95 05/11/19 06:41 86 16 95 05/11/19 02:21 90 16 05/11/19 02:00 97.6 F 84 18 138/64 98 Weight Weight 192 lb 12.8 oz Result Diagrams: 05/11/19 04:16 05/11/19 04:16 Phys Exam - Physical Examination Neck: no JVD expiratory wheezes, no focal finding Cardiovascular: irregular Gastrointestinal: soft, positive bowel sounds Musculoskeletal: no edema Dx/Plan (1) Chest pain Code(s): R07.9 - CHEST PAIN, UNSPECIFIED Status: Acute Qualifiers: Chest pain type: other chest pain Qualified Code(s): R07.89 - Other chest pain; R07.8 - Other chest pain (2) Acute and chronic respiratory failure with hypoxia Code(s): J96.21 - ACUTE AND CHRONIC RESPIRATORY FAILURE WITH HYPOXIA Status: Chronic Comment: Improved (3) Acute on chronic anemia Code(s): D64.9 - ANEMIA, UNSPECIFIED Status: Chronic (4) Atrial fibrillation Code(s): I48.91 - UNSPECIFIED ATRIAL FIBRILLATION Status: Chronic Qualifiers: Atrial fibrillation type: unspecified Qualified Code(s): I48.91 - Unspecified atrial fibrillation Comment: Intermittent. Has been in sinus. Historically only had it when having BRAD. Therapeutic on INR and rate is appropriate to the clinical scenario. (5) COPD (chronic obstructive pulmonary disease) Status: Chronic Qualifiers: COPD type: emphysema Emphysema type: unspecified Qualified Code(s): J43.9 - Emphysema, unspecified (6) HTN (hypertension) Code(s): I10 - ESSENTIAL (PRIMARY) HYPERTENSION Status: Chronic Qualifiers: Hypertension type: essential hypertension Qualified Code(s): I10 - Essential (primary) hypertension Comment: controlled (7) BRAD (obstructive sleep apnea) Code(s): G47.33 - OBSTRUCTIVE SLEEP APNEA (ADULT) (PEDIATRIC) Status: Chronic Comment: on CPAP while asleep - Plan i suspect chest pain is musculo-skeletal -: will cont tx for acute PNA -has marked leukocytosis, rpt cxr tomorrow -: O2, nebs, C-pap, etc -: echo pending to evaluate antonella * .
[2019-05-11] MEDS: Fluticasone Propionate Nasal Spray 16 gm Bottle NASAL SCH (10:38)
[2019-05-11] MEDS: HYDROcodone/Acetaminophen 5/325 mg Tablet PO PRN ×2 (11:16→19:01)
--- NOTE | 2019-05-11 13:45 | PDOC.EVN ---
Event Note - Event Note Event Note: pain persists.appears musculoskeletal.discuused with cardiology.STat CT t-spine
--- NOTE | 2019-05-11 14:43 | CT ---
CT thoracic spine noncontrast: DATE: 05/11/2019 HISTORY: 78-year-old male with severe mid back pain. COMPARISON: Sagittal reconstructions of chest CT of 05/09/2018. FINDINGS: Whereas previously all of the thoracic vertebral body heights are maintained, there are now a few new compression fractures: T2: Shallow, central depression of superior endplate of T2. Peripheral overall vertebral body height maintained. Little or no bony retropulsion. T8: Diffuse loss of height, approximately 50-75%. Little or no bony retropulsion. L1: New mild, broad, shallow depression of superior endplate and minimal bony retropulsion. Sclerotic changes and lucencies. L2: A greater degree of compression fracture with maximum of approximately 50-70% loss of height. Scl erotic changes and lucent changes. Mild bony retropulsion of posterior superior endplate. This level was not included on the prior chest CT. Small amount of free fluid around the spleen. Small to moderate amount of free fluid around the liver . Hepatic cysts. IMPRESSION: 1. Subacute or acute compression fractures of T6, L1, L2, and mild one at T2. 2. Small amount of free fluid around the spleen and liver.
--- NOTE | 2019-05-11 15:33 | CON ---
DATE OF CONSULTATION: 05/11/2019 REASON FOR CONSULTATION: Chest and back pain. HISTORY OF PRESENT ILLNESS: Mr. Mart is 78 years of age. He is having intense pain across his back and his left shoulder. The patient has a relatively complicated history. He has a history of severe COPD. He has a history of atrial arrhythmias. He has undergone atrial fibrillation ablation. I believe, he may have also undergone atrial flutter ablation. He has also undergone placement of a Watchman device in [place] a couple of months ago. The patient has been having this intense pain as outlined above. The patient did have a negative stress test in the fall of 2017. The patient has a history of severe COPD. He also has paroxysmal atrial fibrillation. Apparently, he had a transesophageal echo done, which showed an incomplete seal with the Watchman, but he is still on the Eliquis. The patient has been in the hospital multiple times. This is outlined in the chart. Recent transesophageal echo done, 04/29/2019, revealed adequately seated Watchman device with two residual leaks and suboptimal opacification behind the Watchman device noted. The study was done by Dr. Brandt. Consideration for coil closure was being given. MEDICATIONS: 1. Rosuvastatin. 2. Tamsulosin. 3. Aspirin. 4. Tikosyn. 5. Torsemide for diastolic heart failure. 6. Iron. 7. Potassium. 8. Losartan. 9. Apixaban 5 mg twice a day. 10. Prednisone 20 mg twice a day. REVIEW OF SYSTEMS: CONSTITUTIONAL: Positive for severe pain. Negative for weight gain or loss. VISION: No changes. HEARING: No changes. PULMONARY: No cough or wheezing. He is chronically short of breath. CARDIAC: No anginal-type chest pain. GASTROINTESTINAL: He has recently had some diarrhea here in the hospital, but started on antibiotics. SKIN: No rashes. PHYSICAL EXAMINATION: GENERAL: This is a pleasant 78-year-old gentleman, looks somewhat older than his chronologic age of 78. Has a lot of pain with any movement. VITAL SIGNS: Blood pressure 139/61, pulse 86 and regular. HEENT: Eyes; sclerae nonicteric. Mouth; mucous membranes moist. NECK: Supple. No lymphadenopathy. LUNGS: Some mild expiratory wheezing. Somewhat distant lung sounds. CARDIAC: I do not hear murmur, rub, or gallop, but the heart sounds are distant. ABDOMEN: Soft and nontender. EXTREMITIES: Warm and dry. No clubbing or cyanosis. There is no edema. I do feel dorsalis pedis pulses bilaterally. PERTINENT LABORATORY DATA: Creatinine is 1.68; estimated GFR is 40, but on the 8th, his creatinine was 2.3. He does have a history of renal failure in the past. At one point, the creatinine above 5. Chest x-ray is clear. ASSESSMENT: 1. Severe upper, mostly posterior back pain, worse between the shoulder blades, going into the left shoulder. 2. Indeterminate troponin levels. Do not appear to be significant in view of renal insufficiency. The peak was only 0.032, which is barely in the indeterminate range; with this degree of renal failure, it looks like it is likely normal. 3. EKG is unremarkable. 4. Stage 3 renal failure with a history of worse renal failure in the past. PLAN: 1. Imaging of the thoracic and C-spine needs to be done. 2. At some point, if we do not find an obvious source of the pain with the thoracic spine, need to image the thoracic aorta. I got to call in to see whether there is any information about whether it is safe to do MRI with Watchman in place at this point. Job ID: [id number]
[2019-05-11] MEDS ORDERED: Vancomycin HCl 1.25 GM in Sodium Chloride 0.9% 250 ML 250 ML IVPB SCH (16:00)
[2019-05-11] MEDS: predniSONE 20 MG TAB PO SCH (19:10)
[2019-05-11] MEDS: Dofetilide 0.125 MG CAP PO SCH (21:34)
[2019-05-11] MEDS: Famotidine 20 MG TAB PO SCH (21:35)
[2019-05-11] MEDS: Rosuvastatin 10 MG TAB PO SCH (21:35)
[2019-05-11] MEDS: Ferrous Sulfate 325 MG TAB PO SCH (21:35)
[2019-05-11] MEDS: Torsemide 20 MG TAB PO SCH (21:36)
[2019-05-11] MEDS: Morphine 4 MG/ML VIAL SLOW IVP PRN (22:03)
[2019-05-12] MEDS: HYDROcodone/Acetaminophen 5/325 mg Tablet PO PRN ×4 (05:20→18:00)
[2019-05-12] MEDS: Piperacillin/Tazobactam 2.25 GM in Sodium Chloride 0.9% 100 ML IVPB SCH (05:36)
[2019-05-12] MEDS: Mometasone/Formoterol 120 PUFF INHALER INH SCH ×2 (06:41→19:01)
[2019-05-12] MEDS: Apixaban 5 MG TAB PO SCH (09:08)
[2019-05-12] MEDS: Ferrous Sulfate 325 MG TAB PO SCH ×2 (09:09→21:05)
[2019-05-12] MEDS: Dofetilide 0.125 MG CAP PO SCH ×2 (09:09→21:04)
[2019-05-12] MEDS: Losartan 25 MG TAB PO SCH (09:09)
[2019-05-12] MEDS: Aspirin 81 mg Enteric Coated Tablet PO SCH (09:10)
[2019-05-12] MEDS: predniSONE 20 MG TAB PO SCH ×2 (09:10→18:00)
[2019-05-12] MEDS: Tamsulosin HCl 0.4 MG CAP PO SCH (09:10)
[2019-05-12] MEDS: Torsemide 20 MG TAB PO SCH ×2 (09:10→21:05)
[2019-05-12] MEDS: Dutasteride 0.5 MG CAP PO SCH (09:10)
[2019-05-12] MEDS: Fluticasone Propionate Nasal Spray 16 gm Bottle NASAL SCH (10:38)
[2019-05-12 11:00] LABS: INR-International Normal Ratio 1.8
[2019-05-12 11:01] LABS: PTT 39.6 SEC (22.9-36.1)
[2019-05-12 11:12] LABS: Anion Gap 14 mmol/L (10-20); BUN (Urea Nitrogen) 48 mg/dL (8.4-25.7); Calc. Creatinine Clearance 40 mL/min (70-130); Calcium 8.3 mg/dL (7.8-10.44); Carbon Dioxide 23 mmol/L (23-31); Chloride 101 mmol/L (98-107); Estimated GFR-MDRD 36; Glucose 193 mg/dL (83-110); Potassium 3.7 mmol/L (3.5-5.1); Sodium 134 mmol/L (136-145)
[2019-05-12 11:42] LABS: Band 1 % (5-11); Hemoglobin 9.8 g/dL (14.0-18.0); Hypochromia SLIGHT = 6-15 cells (100X) (0-5/hpf); Lymphocytes 5 % (21-51); MDiff Complete? YES; Mean Corpuscular Hemoglobin 28.5 pg (27.0-31.0); Mean Corpuscular Volume 92.2 fL (78.0-98.0); Mean Platelet Volume 8.2 fL (7.4-10.4); Monocytes 3 % (0-10); Neutrophil 91 % (42-75); Platelet Count 291 thou/uL (130-400); Platelet Morphology Comment Appears Adequate; Polychromasia SLIGHT = 2-3 cells (100X) (0-2/hpf); RBC Distribution Width 16.5 % (11.5-14.5); Red Blood Cell (RBC) Count 3.42 mill/uL (4.70-6.10); White Blood Cell (WBC) Count 20.6 thou/uL (4.8-10.8)
--- NOTE | 2019-05-12 12:05 | PDOC.HOSPP ---
- Subjective Subjective: chest upper back pain improvinc. no pressure pain, , sob stable on O2, etc - Objective Vital Signs & Weight: Vital Signs (12 hours) Temp Pulse Resp BP Pulse Ox 05/12/19 08:00 96.1 F L 85 20 136/64 96 05/12/19 06:45 97 05/12/19 06:44 97 16 97 05/12/19 06:41 91 16 97 05/12/19 04:00 97.6 F 98 18 127/60 92 L 05/12/19 02:13 84 16 96 Weight Weight 192 lb 12.8 oz I&O: 05/11/19 05/12/19 05/13/19 06:59 06:59 06:59 Intake Total 1190 Output Total 850 Balance 340 Result Diagrams: 05/12/19 10:42 05/12/19 10:42 ROS - Review of Systems All systems: All other ROS were reviewed and found negative. - Medication Medications: Active Medications Generic Name Dose Route Start Last Admin Trade Name Freq PRN Reason Stop Dose Admin Hydrocodone Bitart/Acetaminophen 1 tab 05/10/19 18:02 05/12/19 09:10 [place] 5/325 PO 1 tab Q4H PRN Administration Moderate Pain (4-6) Albuterol/Ipratropium 3 ml 05/10/19 21:58 05/12/19 06:44 Duoneb NEB 3 ml Q4H PRN Administration SOB &/or Wheezing Aspirin 81 mg 05/11/19 09:00 05/12/19 09:10 Ecotrin PO 81 mg DAILY SHORTY Administration Dofetilide 0.125 mg 05/11/19 21:00 05/12/19 09:09 Tikosyn PO 0.125 mg BID SHORTY Administration Dutasteride 0.5 mg 05/12/19 09:00 05/12/19 09:10 Avodart PO 0.5 mg DAILY SHORTY Administration Famotidine 20 mg 05/11/19 21:00 05/11/19 21:35 Pepcid PO 20 mg HS SHORTY Administration Ferrous Sulfate 325 mg 05/11/19 21:00 05/12/19 09:09 Feosol PO 325 mg BID SHORTY Administration Fluticasone Propionate 1 gm 05/11/19 09:00 05/12/19 10:38 Flonase Nasal [place] NASAL Not Given DAILY SHORTY Losartan Potassium 100 mg 05/11/19 09:00 05/12/19 09:09 Cozaar PO 100 mg DAILY SHORTY Administration Mometasone Furoate/Formoterol Fumar 2 puff 05/10/19 18:30 05/12/19 06:41 Dulera 200 Mcg/5 Mcg Inhaler INH 2 puff BID-RT SHORTY Administration Morphine Sulfate 2 mg 05/10/19 18:30 05/11/19 22:03 Morphine SLOW IVP 2 mg Q4H PRN Administration Moderate to Severe Pain (6-10) Pantoprazole Sodium 40 mg 05/12/19 09:00 05/12/19 09:10 Protonix PO 40 mg DAILY SHORTY Administration Prednisone 20 mg 05/11/19 17:00 05/12/19 09:10 Prednisone PO 20 mg BID-WM SHORTY Administration Rosuvastatin Calcium 10 mg 05/10/19 21:00 05/11/19 21:35 Crestor PO 10 mg HS SHORTY Administration Sertraline HCl 50 mg 05/11/19 21:00 05/11/19 21:36 Zoloft PO 50 mg HS SHORTY Administration Tamsulosin HCl 0.4 mg 05/12/19 09:00 05/12/19 09:10 Flomax PO 0.4 mg DAILY SHORTY Administration Torsemide 40 mg 05/11/19 21:00 05/12/19 09:10 Demadex PO 40 mg BID SHORTY Administration - Exam Neck: no JVD Heart: RRR, no murmur Respiratory: CTAB, no wheezes, no rales Gastrointestinal: soft, non-tender, normal bowel sounds Extremities: no cyanosis, no edema Hosp A/P (1) Chest pain Code(s): R07.9 - CHEST PAIN, UNSPECIFIED Status: Acute Qualifiers: Chest pain type: other chest pain Qualified Code(s): R07.89 - Other chest pain; R07.8 - Other chest pain (2) Acute and chronic respiratory failure with hypoxia Code(s): J96.21 - ACUTE AND CHRONIC RESPIRATORY FAILURE WITH HYPOXIA Status: Chronic (3) Acute on chronic anemia Code(s): D64.9 - ANEMIA, UNSPECIFIED Status: Chronic (4) Atrial fibrillation Code(s): I48.91 - UNSPECIFIED ATRIAL FIBRILLATION Status: Chronic Qualifiers: Atrial fibrillation type: unspecified Qualified Code(s): I48.91 - Unspecified atrial fibrillation (5) COPD (chronic obstructive pulmonary disease) Status: Chronic Qualifiers: COPD type: emphysema Emphysema type: unspecified Qualified Code(s): J43.9 - Emphysema, unspecified (6) HTN (hypertension) Code(s): I10 - ESSENTIAL (PRIMARY) HYPERTENSION Status: Chronic Qualifiers: Hypertension type: essential hypertension Qualified Code(s): I10 - Essential (primary) hypertension (7) BRAD (obstructive sleep apnea) Code(s): G47.33 - OBSTRUCTIVE SLEEP APNEA (ADULT) (PEDIATRIC) Status: Chronic - Plan leukocytosis due to prednisone-no evidence for infetion. DC antibx. chest pain due to comp fx t-6. discuss DC planning with cardiology
[2019-05-12 15:45] LABS: Vancomycin, Trough 14.5 ug/mL
[2019-05-12] MEDS: Morphine 4 MG/ML VIAL SLOW IVP PRN (20:53)
[2019-05-12] MEDS: Apixaban 2.5 MG TAB PO SCH (21:04)
[2019-05-12] MEDS: Rosuvastatin 10 MG TAB PO SCH (21:05)
[2019-05-12] MEDS: Famotidine 20 MG TAB PO SCH (21:05)
[2019-05-13] MEDS: Mometasone/Formoterol 120 PUFF INHALER INH SCH ×2 (07:20→19:33)
[2019-05-13] MEDS: HYDROcodone/Acetaminophen 5/325 mg Tablet PO PRN ×3 (09:29→18:34)
[2019-05-13] MEDS: Losartan 25 MG TAB PO SCH (09:30)
[2019-05-13] MEDS: Dutasteride 0.5 MG CAP PO SCH (09:30)
[2019-05-13] MEDS: Apixaban 2.5 MG TAB PO SCH ×2 (09:30→20:52)
[2019-05-13] MEDS: predniSONE 20 MG TAB PO SCH (09:30)
[2019-05-13] MEDS: Ferrous Sulfate 325 MG TAB PO SCH ×2 (09:30→20:51)
[2019-05-13] MEDS: Aspirin 81 mg Enteric Coated Tablet PO SCH (09:30)
[2019-05-13] MEDS: Dofetilide 0.125 MG CAP PO SCH ×2 (09:30→20:52)
[2019-05-13] MEDS: Torsemide 20 MG TAB PO SCH ×2 (09:31→20:52)
[2019-05-13] MEDS: Tamsulosin HCl 0.4 MG CAP PO SCH (09:31)
[2019-05-13] MEDS: Fluticasone Propionate Nasal Spray 16 gm Bottle NASAL SCH (09:31)
--- NOTE | 2019-05-13 12:37 | PDOC.HOSPP ---
- Subjective Subjective: pain in upper back persists - Objective Vital Signs & Weight: Vital Signs (12 hours) Temp Pulse Resp BP Pulse Ox 05/13/19 08:00 96.1 F L 86 18 127/59 L 98 05/13/19 07:21 96 05/13/19 07:20 83 16 96 05/13/19 04:00 97.4 F L 103 H 20 119/58 L 92 L Weight Admit Weight 192 lb 12.8 oz Weight 192 lb 12.8 oz I&O: 05/12/19 05/13/19 05/14/19 06:59 06:59 06:59 Intake Total 1190 72 Output Total 850 450 Balance 340 -378 Result Diagrams: 05/12/19 10:42 05/12/19 10:42 ROS - Review of Systems All systems: All other ROS were reviewed and found negative. - Medication Medications: Active Medications Generic Name Dose Route Start Last Admin Trade Name Freq PRN Reason Stop Dose Admin Hydrocodone Bitart/Acetaminophen 1 tab 05/10/19 18:02 05/13/19 09:29 [place] 5/325 PO 1 tab Q4H PRN Administration Moderate Pain (4-6) Albuterol/Ipratropium 3 ml 05/10/19 21:58 05/12/19 22:09 Duoneb NEB 3 ml Q4H PRN Administration SOB &/or Wheezing Apixaban 2.5 mg 05/12/19 21:00 05/13/19 09:30 Eliquis PO 2.5 mg BID SHORTY Administration Aspirin 81 mg 05/11/19 09:00 05/13/19 09:30 Ecotrin PO 81 mg DAILY SHORTY Administration Dofetilide 0.125 mg 05/11/19 21:00 05/13/19 09:30 Tikosyn PO 0.125 mg BID SHORTY Administration Dutasteride 0.5 mg 05/12/19 09:00 05/13/19 09:30 Avodart PO 0.5 mg DAILY SHORTY Administration Famotidine 20 mg 05/11/19 21:00 05/12/19 21:05 Pepcid PO 20 mg HS SHORTY Administration Ferrous Sulfate 325 mg 05/11/19 21:00 05/13/19 09:30 Feosol PO 325 mg BID SHORTY Administration Fluticasone Propionate 1 gm 05/11/19 09:00 05/13/19 09:31 Flonase Nasal [place] NASAL Not Given DAILY SHORTY Losartan Potassium 100 mg 05/11/19 09:00 05/13/19 09:30 Cozaar PO 100 mg DAILY SHORTY Administration Mometasone Furoate/Formoterol Fumar 2 puff 05/10/19 18:30 05/13/19 07:20 Dulera 200 Mcg/5 Mcg Inhaler INH 2 puff BID-RT SHORTY Administration Morphine Sulfate 2 mg 05/10/19 18:30 05/12/19 20:53 Morphine SLOW IVP 2 mg Q4H PRN Administration Moderate to Severe Pain (6-10) Pantoprazole Sodium 40 mg 05/12/19 09:00 05/13/19 09:30 Protonix PO 40 mg DAILY SHORTY Administration Rosuvastatin Calcium 10 mg 05/10/19 21:00 05/12/19 21:05 Crestor PO 10 mg HS SHORTY Administration Sertraline HCl 50 mg 05/11/19 21:00 05/12/19 21:05 Zoloft PO 50 mg HS SHORTY Administration Tamsulosin HCl 0.4 mg 05/12/19 09:00 05/13/19 09:31 Flomax PO 0.4 mg DAILY SHORTY Administration Torsemide 40 mg 05/11/19 21:00 05/13/19 09:31 Demadex PO 40 mg BID SHORTY Administration - Exam Neck: JVD Heart: irregular Respiratory: CTAB Gastrointestinal: soft, non-tender, normal bowel sounds Extremities: 1+ LE edema Hosp A/P (1) Chest pain Code(s): R07.9 - CHEST PAIN, UNSPECIFIED Status: Acute Qualifiers: Chest pain type: other chest pain Qualified Code(s): R07.89 - Other chest pain; R07.8 - Other chest pain (2) Acute and chronic respiratory failure with hypoxia Code(s): J96.21 - ACUTE AND CHRONIC RESPIRATORY FAILURE WITH HYPOXIA Status: Chronic (3) Acute on chronic anemia Code(s): D64.9 - ANEMIA, UNSPECIFIED Status: Chronic (4) Atrial fibrillation Code(s): I48.91 - UNSPECIFIED ATRIAL FIBRILLATION Status: Chronic Qualifiers: Atrial fibrillation type: unspecified Qualified Code(s): I48.91 - Unspecified atrial fibrillation (5) COPD (chronic obstructive pulmonary disease) Status: Chronic Qualifiers: COPD type: emphysema Emphysema type: unspecified Qualified Code(s): J43.9 - Emphysema, unspecified (6) HTN (hypertension) Code(s): I10 - ESSENTIAL (PRIMARY) HYPERTENSION Status: Chronic Qualifiers: Hypertension type: essential hypertension Qualified Code(s): I10 - Essential (primary) hypertension (7) BRAD (obstructive sleep apnea) Code(s): G47.33 - OBSTRUCTIVE SLEEP APNEA (ADULT) (PEDIATRIC) Status: Chronic - Plan medically stable. cont current tx. being evaluated for rehab, may consider SNF. CM involved
[2019-05-13] MEDS: Morphine 4 MG/ML VIAL SLOW IVP PRN ×2 (15:41→20:47)
[2019-05-13] MEDS: Rosuvastatin 10 MG TAB PO SCH (20:51)
[2019-05-13] MEDS: Famotidine 20 MG TAB PO SCH (20:51)
[2019-05-14] MEDS: HYDROcodone/Acetaminophen 5/325 mg Tablet PO PRN ×5 (00:54→22:29)
[2019-05-14] MEDS: Mometasone/Formoterol 120 PUFF INHALER INH SCH ×2 (06:58→18:25)
[2019-05-14] MEDS: Fluticasone Propionate Nasal Spray 16 gm Bottle NASAL SCH (08:35)
[2019-05-14] MEDS: Aspirin 81 mg Enteric Coated Tablet PO SCH (08:37)
[2019-05-14] MEDS: predniSONE 20 MG TAB PO SCH (08:37)
[2019-05-14] MEDS: Ferrous Sulfate 325 MG TAB PO SCH ×2 (08:37→19:44)
[2019-05-14] MEDS: Tamsulosin HCl 0.4 MG CAP PO SCH (08:38)
[2019-05-14] MEDS: Dutasteride 0.5 MG CAP PO SCH (10:35)
[2019-05-14] MEDS: Dofetilide 0.125 MG CAP PO SCH ×2 (11:22→19:45)
[2019-05-14] MEDS: Apixaban 2.5 MG TAB PO SCH ×2 (11:22→19:45)
[2019-05-14] MEDS: Torsemide 20 MG TAB PO SCH ×2 (11:22→19:45)
[2019-05-14] MEDS: Losartan 25 MG TAB PO SCH (11:23)
[2019-05-14] MEDS: Morphine 4 MG/ML VIAL SLOW IVP PRN ×2 (12:46→19:38)
--- NOTE | 2019-05-14 15:34 | PDOC.HOSPP ---
- Subjective Subjective: pain in back somewhat better, improved compliance with PT - Objective Vital Signs & Weight: Vital Signs (12 hours) Temp Pulse Resp BP BP Pulse Ox 05/14/19 15:28 97.8 F 89 17 113/59 L 93 L 05/14/19 14:16 86 15 98 05/14/19 11:38 97.4 F L 96 18 108/56 L 93 L 05/14/19 10:55 88 14 95 05/14/19 07:29 97.4 F L 78 18 102/66 97 05/14/19 06:47 88 18 93 L 05/14/19 06:16 98.1 F 87 16 98/60 96 Weight Admit Weight 192 lb 12.8 oz Weight 192 lb 12.8 oz I&O: 05/13/19 05/14/19 05/15/19 06:59 06:59 06:59 Intake Total 72 500 Output Total 450 100 Balance -378 400 Result Diagrams: 05/12/19 10:42 05/12/19 10:42 ROS - Review of Systems All systems: All other ROS were reviewed and found negative. - Medication Medications: Active Medications Generic Name Dose Route Start Last Admin Trade Name Freq PRN Reason Stop Dose Admin Hydrocodone Bitart/Acetaminophen 1 tab 05/10/19 18:02 05/14/19 14:42 [place] 5/325 PO 1 tab Q4H PRN Administration Moderate Pain (4-6) Albuterol/Ipratropium 3 ml 05/10/19 21:58 05/14/19 14:16 Duoneb NEB 3 ml Q4H PRN Administration SOB &/or Wheezing Apixaban 2.5 mg 05/12/19 21:00 05/14/19 11:22 Eliquis PO 2.5 mg BID SHORTY Administration Aspirin 81 mg 05/11/19 09:00 05/14/19 08:37 Ecotrin PO 81 mg DAILY SHORTY Administration Dofetilide 0.125 mg 05/11/19 21:00 05/14/19 11:22 Tikosyn PO 0.125 mg BID SHORTY Administration Dutasteride 0.5 mg 05/12/19 09:00 05/13/19 09:30 Avodart PO 0.5 mg DAILY SHORTY Administration Famotidine 20 mg 05/11/19 21:00 05/13/19 20:51 Pepcid PO 20 mg HS SHORTY Administration Ferrous Sulfate 325 mg 05/11/19 21:00 05/14/19 08:37 Feosol PO 325 mg BID SHORTY Administration Fluticasone Propionate 1 gm 05/11/19 09:00 05/13/19 09:31 Flonase Nasal [place] NASAL Not Given DAILY SHORTY Losartan Potassium 100 mg 05/11/19 09:00 05/14/19 11:23 Cozaar PO 100 mg DAILY SHORTY Administration Mometasone Furoate/Formoterol Fumar 2 puff 05/10/19 18:30 05/14/19 06:58 Dulera 200 Mcg/5 Mcg Inhaler INH 2 puff BID-RT SHORTY Administration Morphine Sulfate 2 mg 05/10/19 18:30 05/14/19 12:46 Morphine SLOW IVP 2 mg Q4H PRN Administration Moderate to Severe Pain (6-10) Pantoprazole Sodium 40 mg 05/12/19 09:00 05/14/19 08:37 Protonix PO 40 mg DAILY SHORTY Administration Prednisone 30 mg 05/14/19 08:00 05/14/19 08:37 Prednisone PO 30 mg QAM-WM SHORTY Administration Rosuvastatin Calcium 10 mg 05/10/19 21:00 05/13/19 20:51 Crestor PO 10 mg HS SHORTY Administration Sertraline HCl 50 mg 05/11/19 21:00 05/13/19 20:51 Zoloft PO 50 mg HS SHORTY Administration Tamsulosin HCl 0.4 mg 05/12/19 09:00 05/14/19 08:38 Flomax PO 0.4 mg DAILY SHORTY Administration Torsemide 40 mg 05/11/19 21:00 05/14/19 11:22 Demadex PO 40 mg BID SHORTY Administration - Exam Neck: JVD Heart: irregular Respiratory: CTAB Gastrointestinal: soft, normal bowel sounds Extremities: no edema Hosp A/P (1) Chest pain Code(s): R07.9 - CHEST PAIN, UNSPECIFIED Status: Acute Qualifiers: Chest pain type: other chest pain Qualified Code(s): R07.89 - Other chest pain; R07.8 - Other chest pain (2) Acute and chronic respiratory failure with hypoxia Code(s): J96.21 - ACUTE AND CHRONIC RESPIRATORY FAILURE WITH HYPOXIA Status: Chronic (3) Acute on chronic anemia Code(s): D64.9 - ANEMIA, UNSPECIFIED Status: Chronic (4) Atrial fibrillation Code(s): I48.91 - UNSPECIFIED ATRIAL FIBRILLATION Status: Chronic Qualifiers: Atrial fibrillation type: unspecified Qualified Code(s): I48.91 - Unspecified atrial fibrillation (5) COPD (chronic obstructive pulmonary disease) Status: Chronic Qualifiers: COPD type: emphysema Emphysema type: unspecified Qualified Code(s): J43.9 - Emphysema, unspecified (6) HTN (hypertension) Code(s): I10 - ESSENTIAL (PRIMARY) HYPERTENSION Status: Chronic Qualifiers: Hypertension type: essential hypertension Qualified Code(s): I10 - Essential (primary) hypertension (7) BRAD (obstructive sleep apnea) Code(s): G47.33 - OBSTRUCTIVE SLEEP APNEA (ADULT) (PEDIATRIC) Status: Chronic - Plan cont current tx. rehab refferal pending- hopefully today
[2019-05-14] MEDS: Famotidine 20 MG TAB PO SCH (19:45)
[2019-05-14] MEDS: Rosuvastatin 10 MG TAB PO SCH (19:45)
[2019-05-15] MEDS: HYDROcodone/Acetaminophen 5/325 mg Tablet PO PRN ×4 (04:45→20:25)
[2019-05-15] MEDS: Mometasone/Formoterol 120 PUFF INHALER INH SCH ×2 (06:46→18:50)
[2019-05-15] MEDS: predniSONE 20 MG TAB PO SCH (08:30)
[2019-05-15] MEDS: Ferrous Sulfate 325 MG TAB PO SCH ×2 (08:31→20:24)
[2019-05-15] MEDS: Losartan 25 MG TAB PO SCH (08:31)
[2019-05-15] MEDS: Aspirin 81 mg Enteric Coated Tablet PO SCH (08:32)
[2019-05-15] MEDS: Tamsulosin HCl 0.4 MG CAP PO SCH (08:32)
[2019-05-15] MEDS: Apixaban 2.5 MG TAB PO SCH ×2 (08:32→20:24)
[2019-05-15] MEDS: Dofetilide 0.125 MG CAP PO SCH ×2 (08:32→20:24)
[2019-05-15] MEDS: Torsemide 20 MG TAB PO SCH ×2 (08:33→20:24)
[2019-05-15] MEDS: Fluticasone Propionate Nasal Spray 16 gm Bottle NASAL SCH (08:34)
[2019-05-15] MEDS: Dutasteride 0.5 MG CAP PO SCH (10:56)
--- NOTE | 2019-05-15 16:11 | PRG ---
DATE OF SERVICE: 05/15/2019 SUBJECTIVE: The patient is seen and examined at the bedside. He is doing somewhat better. He does not have much complaints to offer. OBJECTIVE: VITAL SIGNS: Blood pressure is 116/62, pulse is 95, respiratory rate is 17, O2 saturation is 95% on 3 L by nasal cannula, temperature is 98.1. HEENT: Head is atraumatic and normocephalic. Eyes are PERRLA. Sclerae are nonicteric. Oral mucosa is moist. NECK: Supple. LUNGS: Emphysematous. Breath sounds diminished at both bases. HEART: S1 and S2 are normal. No S3. No S4. Distant. ABDOMEN: Obese, somewhat distended with mild tenderness in the epigastric area. No guarding. No masses. EXTREMITIES: No clubbing or cyanosis. There is 1+ peripheral edema, similar bilaterally on lower extremities. NEUROLOGIC: He follows my commands. He moves his all 4 extremities. LABORATORY DATA: None today. IMPRESSION: 1. Grwkj-tf-grckrva respiratory failure with hypoxemia. 2. Chyvg-ru-wtgboom anemia. 3. Atrial fibrillation, chronic. 4. Chronic obstructive pulmonary disease, severe, chronic. 5. Hypertension, chronic. 6. Obstructive sleep apnea. 7. Chest pain. PLAN: Rehab referral pending hopefully today. Continue current medications. We will repeat CBC to make sure that his white count is going down. His prednisone is down to 30 mg, and this will need to be tapered gradually. I will continue his apixaban, aspirin, and DuoNeb. Job ID: [id number]
[2019-05-15] MEDS: Rosuvastatin 10 MG TAB PO SCH (20:24)
[2019-05-15] MEDS: Famotidine 20 MG TAB PO SCH (20:24)
[2019-05-16] MEDS: Morphine 4 MG/ML VIAL SLOW IVP PRN ×2 (02:06→22:33)
[2019-05-16] MEDS: Mometasone/Formoterol 120 PUFF INHALER INH SCH ×2 (07:22→18:44)
[2019-05-16] MEDS: Dutasteride 0.5 MG CAP PO SCH (08:01)
[2019-05-16] MEDS: Apixaban 2.5 MG TAB PO SCH ×2 (08:02→20:19)
[2019-05-16] MEDS: Dofetilide 0.125 MG CAP PO SCH ×2 (08:02→20:19)
[2019-05-16] MEDS: predniSONE 20 MG TAB PO SCH (08:03)
[2019-05-16] MEDS: Torsemide 20 MG TAB PO SCH ×2 (08:03→20:19)
[2019-05-16] MEDS: Ferrous Sulfate 325 MG TAB PO SCH ×2 (08:03→20:19)
[2019-05-16] MEDS: Losartan 25 MG TAB PO SCH (08:04)
[2019-05-16] MEDS: Aspirin 81 mg Enteric Coated Tablet PO SCH (08:04)
[2019-05-16] MEDS: Fluticasone Propionate Nasal Spray 16 gm Bottle NASAL SCH (08:04)
[2019-05-16] MEDS: Tamsulosin HCl 0.4 MG CAP PO SCH (08:12)
[2019-05-16] MEDS: HYDROcodone/Acetaminophen 5/325 mg Tablet PO PRN ×3 (08:18→20:23)
[2019-05-16] MEDS ORDERED: Loratadine 10 MG TAB PO PRN (09:35)
[2019-05-16] MEDS ORDERED: Sodium Chloride 0.65% Nasal 44 ML BOT EA NARE PRN (09:35)
[2019-05-16] MEDS ORDERED: Bisacodyl 10 MG SUPP PR PRN (09:35)
[2019-05-16] MEDS ORDERED: Loperamide HCl 2 MG CAP PO PRN (09:35)
[2019-05-16] MEDS ORDERED: Cepastat Lozenges 1 LOZ PO PRN (09:35)
[2019-05-16] MEDS ORDERED: Metoclopramide HCl 10 MG/2 ML VIAL IVP PRN (09:35)
[2019-05-16] MEDS ORDERED: Senokot S 8.6-50 MG TAB PO PRN (09:35)
[2019-05-16] MEDS ORDERED: Diabetic Tussin 200 MG/10 ML UDCUP PO PRN (09:35)
[2019-05-16] MEDS ORDERED: Artificial Tears 18 DROP/0.9 ML EA EYE PRN (09:35)
[2019-05-16 11:56] LABS: #Lymphocytes 0.5 thou/uL (1.20-3.40); #Monocytes 0.6 thou/uL (0.11-0.59); #Neutrophils 15.4 thou/uL (1.40-6.50); %Basophils 0.1 % (0.0-1.0); %Eosinophils 0.2 % (0.0-10.0); %Monocytes 3.6 % (0.0-10.0); %Neutrophils 93.1 % (42.0-75.0); Hemoglobin 9.5 g/dL (14.0-18.0); Mean Corpuscular HGB CONC 32.7 g/dL (32.0-36.0); Mean Corpuscular Hemoglobin 29.3 pg (27.0-31.0); Mean Corpuscular Volume 89.7 fL (78.0-98.0); Mean Platelet Volume 7.5 fL (7.4-10.4); Platelet Count 290 thou/uL (130-400); Red Blood Cell (RBC) Count 3.22 mill/uL (4.70-6.10); White Blood Cell (WBC) Count 16.5 thou/uL (4.8-10.8)
[2019-05-16 12:20] LABS: ALT (SGPT) 17 U/L (8-55); AST (SGOT) 11 U/L (5-34); Alkaline Phosphatase 60 U/L (40-150); Anion Gap 14 mmol/L (10-20); BUN (Urea Nitrogen) 62 mg/dL (8.4-25.7); Bilirubin, Total 0.2 mg/dL (0.2-1.2); Calc. Creatinine Clearance 41 mL/min (70-130); Calcium 8.3 mg/dL (7.8-10.44); Carbon Dioxide 24 mmol/L (23-31); Chloride 99 mmol/L (98-107); Estimated GFR-MDRD 37; Globulin 1.9 g/dL (2.4-3.5); Glucose 125 mg/dL (83-110); Potassium 4.1 mmol/L (3.5-5.1); Protein, Total 4.9 g/dL (5.8-8.1); Sodium 133 mmol/L (136-145)
--- NOTE | 2019-05-16 12:22 | PDOC.HOSPP ---
- Subjective Subjective: Patient seen and examined. c/o epigastric and abdominal pain. No overnight events - Objective Vital Signs & Weight: Vital Signs (12 hours) Temp Pulse Resp BP Pulse Ox 05/16/19 08:14 98.0 F 103 H 20 132/69 90 L 05/16/19 08:00 90 L 05/16/19 07:20 89 14 95 05/16/19 02:15 93 14 96 Weight Admit Weight 192 lb 12.8 oz Weight 192 lb 12.8 oz I&O: 05/15/19 05/16/19 05/17/19 06:59 06:59 06:59 Intake Total 240 1680 480 Balance 240 1680 480 Result Diagrams: 05/16/19 11:46 05/16/19 11:46 ROS - Review of Systems All systems: All other ROS were reviewed and found negative. Eyes: denies: pain, vision change, conjunctivae inflammation, eyelid inflammation, redness, other ENT: denies: ear pain, ear discharge, nose pain, nose discharge, nose congestion , mouth pain, mouth swelling, throat pain, throat swelling, other Respiratory: denies: cough, dry, shortness of breath, hemoptysis, SOB with excertion, pleuritic pain, sputum, wheezing, other Cardiovascular: denies: chest pain, palpitations, orthopnea, paroxysmal noc. dyspnea, edema, light headedness, other Gastrointestinal: reports: abdominal pain. denies: nausea, vomitting, diarrhea , constipation, melena, hematochezia, other Genitourinary: denies: dysuria, frequency, incontinence, hematuria, retention, other Musculoskeletal: denies: neck pain, shoulder pain, arm pain, back pain, hand pain, leg pain, foot pain, other - Medication Medications: Active Medications Generic Name Dose Route Start Last Admin Trade Name Freq PRN Reason Stop Dose Admin Hydrocodone Bitart/Acetaminophen 1 tab 05/10/19 18:02 05/16/19 08:18 [place] 5/325 PO 1 tab Q4H PRN Administration Moderate Pain (4-6) Albuterol/Ipratropium 3 ml 05/10/19 21:58 05/16/19 07:20 Duoneb NEB 3 ml Q4H PRN Administration SOB &/or Wheezing Apixaban 2.5 mg 05/12/19 21:00 05/16/19 08:02 Eliquis PO 2.5 mg BID SHORTY Administration Aspirin 81 mg 05/11/19 09:00 05/16/19 08:04 Ecotrin PO 81 mg DAILY SHORTY Administration Dofetilide 0.125 mg 05/11/19 21:00 05/16/19 08:02 Tikosyn PO 0.125 mg BID SHORTY Administration Dutasteride 0.5 mg 05/12/19 09:00 05/16/19 08:01 Avodart PO 0.5 mg DAILY SHORTY Administration Famotidine 20 mg 05/11/19 21:00 05/15/19 20:24 Pepcid PO 20 mg HS SHORTY Administration Ferrous Sulfate 325 mg 05/11/19 21:00 05/16/19 08:03 Feosol PO 325 mg BID SHORTY Administration Fluticasone Propionate 1 gm 05/11/19 09:00 05/16/19 08:04 Flonase Nasal [place] NASAL Not Given DAILY SHORTY Losartan Potassium 100 mg 05/11/19 09:00 05/16/19 08:04 Cozaar PO 100 mg DAILY SHORTY Administration Miscellaneous Medication 25 mg 05/15/19 07:30 05/16/19 08:00 Movantik PO 25 mg DAILY-AC SHORTY Administration Mometasone Furoate/Formoterol Fumar 2 puff 05/10/19 18:30 05/16/19 07:22 Dulera 200 Mcg/5 Mcg Inhaler INH 2 puff BID-RT SHORTY Administration Morphine Sulfate 2 mg 05/10/19 18:30 05/16/19 02:06 Morphine SLOW IVP 2 mg Q4H PRN Administration Moderate to Severe Pain (6-10) Pantoprazole Sodium 40 mg 05/12/19 09:00 05/16/19 08:05 Protonix PO 40 mg DAILY SHORTY Administration Rosuvastatin Calcium 10 mg 05/10/19 21:00 05/15/19 20:24 Crestor PO 10 mg HS SHORTY Administration Sertraline HCl 50 mg 05/11/19 21:00 05/15/19 20:24 Zoloft PO 50 mg HS SHORTY Administration Tamsulosin HCl 0.4 mg 05/12/19 09:00 05/16/19 08:12 Flomax PO 0.4 mg DAILY SHORTY Administration Torsemide 40 mg 05/11/19 21:00 05/16/19 08:03 Demadex PO 40 mg BID SHORTY Administration - Exam NAD, awake alert Eye: PERRL, anicteric sclera ENT: normocephalic atraumatic, no oropharyngeal lesions Neck: supple, symmetric, no JVD Heart: RRR, no murmur, no gallops, no rubs Respiratory: CTAB, no wheezes, no rales, no ronchi Gastrointestinal: soft, non-distended, normal bowel sounds, no hepatomegaly, no splenomegaly, tender to palpation (EPIGASTRIC) Extremities: no cyanosis, no clubbing, no edema Skin: normal turgor, no lesions Neurological: CN's grossly intact, normal sensation to touch, no focal deficits Musculoskeletal: normal tone, normal strength Psychiatric: normal affect, normal behavior Hosp A/P (1) Acute and chronic respiratory failure with hypoxia Code(s): J96.21 - ACUTE AND CHRONIC RESPIRATORY FAILURE WITH HYPOXIA Status: Acute (2) Acute on chronic diastolic (congestive) heart failure Code(s): I50.33 - ACUTE ON CHRONIC DIASTOLIC (CONGESTIVE) HEART FAILURE Status : Acute (3) COPD exacerbation Code(s): J44.1 - CHRONIC OBSTRUCTIVE PULMONARY DISEASE W (ACUTE) EXACERBATION Status: Acute (4) Physical deconditioning Code(s): R53.81 - OTHER MALAISE Status: Acute (5) AVM (arteriovenous malformation) of colon Code(s): K55.20 - ANGIODYSPLASIA OF COLON WITHOUT HEMORRHAGE Status: Chronic (6) Anemia, normocytic normochromic Code(s): D64.9 - ANEMIA, UNSPECIFIED Status: Chronic (7) Anxiety and depression Code(s): F41.9 - ANXIETY DISORDER, UNSPECIFIED; F32.9 - MAJOR DEPRESSIVE DISORDER, SINGLE EPISODE, UNSPECIFIED Status: Chronic (8) Atrial fibrillation Code(s): I48.91 - UNSPECIFIED ATRIAL FIBRILLATION Status: Chronic Qualifiers: Atrial fibrillation type: unspecified Qualified Code(s): I48.91 - Unspecified atrial fibrillation (9) BPH (benign prostatic hyperplasia) Code(s): N40.0 - BENIGN PROSTATIC HYPERPLASIA WITHOUT LOWER URINRY TRACT SYMP Status: Chronic (10) CKD (chronic kidney disease) stage 3, GFR 30-59 ml/min Code(s): N18.3 - CHRONIC KIDNEY DISEASE, STAGE 3 (MODERATE) Status: Chronic (11) Compression fracture Code(s): CJQ4549 - Status: Chronic (12) HTN (hypertension) Code(s): I10 - ESSENTIAL (PRIMARY) HYPERTENSION Status: Chronic Qualifiers: Hypertension type: essential hypertension Qualified Code(s): I10 - Essential (primary) hypertension (13) Lumbar spinal stenosis Code(s): M48.061 - SPINAL STENOSIS, LUMBAR REGION WITHOUT NEUROGENIC FLACO Status: Chronic (14) BRAD (obstructive sleep apnea) Code(s): G47.33 - OBSTRUCTIVE SLEEP APNEA (ADULT) (PEDIATRIC) Status: Chronic - Plan old records reviewed/req, PT/OT, social work administrator will check cbc, cmp get US RUQ reduce prednisone 10 mg daily medication reviewed as below symptomatic treatment
[2019-05-16] MEDS: Famotidine 20 MG TAB PO SCH (20:19)
[2019-05-16] MEDS: Rosuvastatin 10 MG TAB PO SCH (20:19)
--- NOTE | 2019-05-16 21:15 | ULT ---
Sonogram right upper quadrant HISTORY: Right upper quadrant pain. FINDINGS: Gallbladder is incompletely distended. No stones visible. Common duct is 0.4 cm. Cyst withi n the right liver lobe measures up to 2.3 cm. No free fluid. Atrophy of the cortex of the right kidney. IMPRESSION: No evidence of gallstones or biliary obstruction.
[2019-05-17] MEDS: Morphine 4 MG/ML VIAL SLOW IVP PRN ×2 (02:52→19:58)
[2019-05-17] MEDS: Ferrous Sulfate 325 MG TAB PO SCH ×2 (08:13→21:07)
[2019-05-17] MEDS: Aspirin 81 mg Enteric Coated Tablet PO SCH (08:13)
[2019-05-17] MEDS: Apixaban 2.5 MG TAB PO SCH ×2 (08:13→21:07)
[2019-05-17] MEDS: Tamsulosin HCl 0.4 MG CAP PO SCH (08:14)
[2019-05-17] MEDS: Dofetilide 0.125 MG CAP PO SCH ×2 (08:14→21:07)
[2019-05-17] MEDS: Losartan 25 MG TAB PO SCH (08:14)
[2019-05-17] MEDS: Torsemide 20 MG TAB PO SCH ×2 (08:14→21:14)
[2019-05-17] MEDS: predniSONE 20 MG TAB PO SCH (08:14)
[2019-05-17] MEDS: Dutasteride 0.5 MG CAP PO SCH (08:15)
[2019-05-17] MEDS: Fluticasone Propionate Nasal Spray 16 gm Bottle NASAL SCH (08:15)
[2019-05-17] MEDS: HYDROcodone/Acetaminophen 5/325 mg Tablet PO PRN ×3 (08:22→21:07)
--- NOTE | 2019-05-17 10:35 | PDOC.HOSPP ---
- Subjective Subjective: Patient seen and examined. No overnight events pt has upper abdominal discomfort, he has good BM today - Objective Vital Signs & Weight: Vital Signs (12 hours) Temp Pulse Resp BP Pulse Ox 05/17/19 09:42 16 94 L 05/17/19 08:00 97.7 F 97 24 H 143/76 H 93 L 05/17/19 02:38 98 18 96 05/16/19 22:36 95 16 92 L Weight Admit Weight 192 lb 12.8 oz Weight 192 lb 12.8 oz I&O: 05/16/19 05/17/19 05/18/19 06:59 06:59 06:59 Intake Total 1680 1660 Output Total 1400 Balance 1680 260 Result Diagrams: 05/16/19 11:46 05/16/19 11:46 Radiology Reviewed by me: Yes (US RUQ negative) ROS - Review of Systems All systems: All other ROS were reviewed and found negative. Constitutional: denies: fever, chills, sweats, weakness, malaise, other Eyes: denies: pain, vision change, conjunctivae inflammation, eyelid inflammation, redness, other ENT: denies: ear pain, ear discharge, nose pain, nose discharge, nose congestion , mouth pain, mouth swelling, throat pain, throat swelling, other Respiratory: denies: cough, dry, shortness of breath, hemoptysis, SOB with excertion, pleuritic pain, sputum, wheezing, other Cardiovascular: denies: chest pain, palpitations, orthopnea, paroxysmal noc. dyspnea, edema, light headedness, other Gastrointestinal: reports: abdominal pain. denies: nausea, vomitting, diarrhea , constipation, melena, hematochezia, other Genitourinary: denies: dysuria, frequency, incontinence, hematuria, retention, other Musculoskeletal: denies: neck pain, shoulder pain, arm pain, back pain, hand pain, leg pain, foot pain, other Skin: denies: rash, lesions, eli, bruising, other - Medication Medications: Active Medications Generic Name Dose Route Start Last Admin Trade Name Freq PRN Reason Stop Dose Admin Hydrocodone Bitart/Acetaminophen 1 tab 05/10/19 18:02 05/17/19 08:22 [place] 5/325 PO 1 tab Q4H PRN Administration Moderate Pain (4-6) Albuterol/Ipratropium 3 ml 05/10/19 21:58 05/17/19 02:38 Duoneb NEB 3 ml Q4H PRN Administration SOB &/or Wheezing Apixaban 2.5 mg 05/12/19 21:00 05/17/19 08:13 Eliquis PO 2.5 mg BID SHORTY Administration Aspirin 81 mg 05/11/19 09:00 05/17/19 08:13 Ecotrin PO 81 mg DAILY SHORTY Administration Dofetilide 0.125 mg 05/11/19 21:00 05/17/19 08:14 Tikosyn PO 0.125 mg BID SHORTY Administration Dutasteride 0.5 mg 05/12/19 09:00 05/17/19 08:15 Avodart PO 0.5 mg DAILY SHORTY Administration Famotidine 20 mg 05/11/19 21:00 05/16/19 20:19 Pepcid PO 20 mg HS SHORTY Administration Ferrous Sulfate 325 mg 05/11/19 21:00 05/17/19 08:13 Feosol PO 325 mg BID SHORTY Administration Fluticasone Propionate 1 gm 05/11/19 09:00 05/17/19 08:15 Flonase Nasal [place] NASAL Not Given DAILY SHORTY Losartan Potassium 100 mg 05/11/19 09:00 05/17/19 08:14 Cozaar PO 100 mg DAILY SHORTY Administration Miscellaneous Medication 25 mg 05/15/19 07:30 05/17/19 08:14 Movantik PO 25 mg DAILY-AC SHORTY Administration Mometasone Furoate/Formoterol Fumar 2 puff 05/10/19 18:30 05/16/19 18:44 Dulera 200 Mcg/5 Mcg Inhaler INH 2 puff BID-RT SHORTY Administration Morphine Sulfate 2 mg 05/10/19 18:30 05/17/19 02:52 Morphine SLOW IVP 2 mg Q4H PRN Administration Moderate to Severe Pain (6-10) Pantoprazole Sodium 40 mg 05/12/19 09:00 05/17/19 08:14 Protonix PO 40 mg DAILY SHORTY Administration Prednisone 10 mg 05/16/19 11:40 05/17/19 08:14 Prednisone PO 10 mg QAM-WM SHORTY Administration Rosuvastatin Calcium 10 mg 05/10/19 21:00 05/16/19 20:19 Crestor PO 10 mg HS SHORTY Administration Sertraline HCl 50 mg 05/11/19 21:00 05/16/19 20:19 Zoloft PO 50 mg HS SHORTY Administration Tamsulosin HCl 0.4 mg 05/12/19 09:00 05/17/19 08:14 Flomax PO 0.4 mg DAILY SHORTY Administration Torsemide 40 mg 05/11/19 21:00 05/17/19 08:14 Demadex PO 40 mg BID SHORTY Administration - Exam NAD, awake alert Eye: PERRL, anicteric sclera ENT: normocephalic atraumatic, no oropharyngeal lesions Neck: supple, symmetric, no JVD Heart: RRR, no murmur, no gallops, no rubs Respiratory: CTAB, no wheezes, no rales, no ronchi Gastrointestinal: soft, non-tender, non-distended, normal bowel sounds Extremities: no cyanosis, no clubbing, no edema Skin: normal turgor, no lesions, no rashes Neurological: CN's grossly intact, normal sensation to touch Musculoskeletal: normal tone, normal strength, diffuse muscle atrophy Psychiatric: normal affect, normal behavior Hosp A/P (1) Acute and chronic respiratory failure with hypoxia Code(s): J96.21 - ACUTE AND CHRONIC RESPIRATORY FAILURE WITH HYPOXIA Status: Acute (2) Acute on chronic diastolic (congestive) heart failure Code(s): I50.33 - ACUTE ON CHRONIC DIASTOLIC (CONGESTIVE) HEART FAILURE Status : Acute (3) COPD exacerbation Code(s): J44.1 - CHRONIC OBSTRUCTIVE PULMONARY DISEASE W (ACUTE) EXACERBATION Status: Acute (4) Physical deconditioning Code(s): R53.81 - OTHER MALAISE Status: Acute (5) AVM (arteriovenous malformation) of colon Code(s): K55.20 - ANGIODYSPLASIA OF COLON WITHOUT HEMORRHAGE Status: Chronic (6) Anemia, normocytic normochromic Code(s): D64.9 - ANEMIA, UNSPECIFIED Status: Chronic (7) Anxiety and depression Code(s): F41.9 - ANXIETY DISORDER, UNSPECIFIED; F32.9 - MAJOR DEPRESSIVE DISORDER, SINGLE EPISODE, UNSPECIFIED Status: Chronic (8) Atrial fibrillation Code(s): I48.91 - UNSPECIFIED ATRIAL FIBRILLATION Status: Chronic Qualifiers: Atrial fibrillation type: unspecified Qualified Code(s): I48.91 - Unspecified atrial fibrillation (9) BPH (benign prostatic hyperplasia) Code(s): N40.0 - BENIGN PROSTATIC HYPERPLASIA WITHOUT LOWER URINRY TRACT SYMP Status: Chronic (10) CKD (chronic kidney disease) stage 3, GFR 30-59 ml/min Code(s): N18.3 - CHRONIC KIDNEY DISEASE, STAGE 3 (MODERATE) Status: Chronic (11) Compression fracture Code(s): [id number] - Status: Chronic (12) HTN (hypertension) Code(s): I10 - ESSENTIAL (PRIMARY) HYPERTENSION Status: Chronic Qualifiers: Hypertension type: essential hypertension Qualified Code(s): I10 - Essential (primary) hypertension (13) Lumbar spinal stenosis Code(s): M48.061 - SPINAL STENOSIS, LUMBAR REGION WITHOUT NEUROGENIC FLACO Status: Chronic (14) BRAD (obstructive sleep apnea) Code(s): G47.33 - OBSTRUCTIVE SLEEP APNEA (ADULT) (PEDIATRIC) Status: Chronic - Plan old records reviewed/req, plan discussed w/ family, PT/OT, director of social media marketing overall stable will try [facility] possible discharge to rehab tomorrow will repeat labs tomorrow he needs oxygen
[2019-05-17] MEDS: Mometasone/Formoterol 120 PUFF INHALER INH SCH ×2 (11:00→18:24)
[2019-05-17] MEDS: Simethicone Chewable 80 MG TAB PO SCH ×3 (11:34→21:06)
[2019-05-17] MEDS ORDERED: Metoclopramide HCl 10 MG TAB PO PRN (13:53)
[2019-05-17] MEDS: Rosuvastatin 10 MG TAB PO SCH (21:07)
[2019-05-17] MEDS: Famotidine 20 MG TAB PO SCH (21:07)
[2019-05-18] MEDS: HYDROcodone/Acetaminophen 5/325 mg Tablet PO PRN ×4 (01:31→21:30)
[2019-05-18 05:29] LABS: #Eosinphils 0.1 thou/uL (0.0-0.7); #Neutrophils 13.3 thou/uL (1.40-6.50); %Basophils 0.1 % (0.0-1.0); %Eosinophils 0.5 % (0.0-10.0); %Lymphocytes 6.2 % (21.0-51.0); %Monocytes 6.8 % (0.0-10.0); %Neutrophils 86.5 % (42.0-75.0); Hemoglobin 9.5 g/dL (14.0-18.0); Mean Corpuscular HGB CONC 32.4 g/dL (32.0-36.0); Mean Corpuscular Hemoglobin 29.3 pg (27.0-31.0); Mean Corpuscular Volume 90.3 fL (78.0-98.0); Mean Platelet Volume 7.5 fL (7.4-10.4); Platelet Count 295 thou/uL (130-400); RBC Distribution Width 16.1 % (11.5-14.5); Red Blood Cell (RBC) Count 3.23 mill/uL (4.70-6.10); White Blood Cell (WBC) Count 15.4 thou/uL (4.8-10.8)
[2019-05-18 05:42] LABS: Anion Gap 12 mmol/L (10-20); BUN (Urea Nitrogen) 68 mg/dL (8.4-25.7); Calc. Creatinine Clearance 37 mL/min (70-130); Calcium 8.2 mg/dL (7.8-10.44); Carbon Dioxide 28 mmol/L (23-31); Chloride 101 mmol/L (98-107); Estimated GFR-MDRD 32; Glucose 109 mg/dL (83-110); Potassium 3.8 mmol/L (3.5-5.1); Sodium 137 mmol/L (136-145)
[2019-05-18] MEDS: Mometasone/Formoterol 120 PUFF INHALER INH SCH ×2 (06:56→19:08)
[2019-05-18] MEDS: predniSONE 20 MG TAB PO SCH (08:07)
[2019-05-18] MEDS: Ferrous Sulfate 325 MG TAB PO SCH ×2 (08:07→21:29)
[2019-05-18] MEDS: Aspirin 81 mg Enteric Coated Tablet PO SCH (08:07)
[2019-05-18] MEDS: Simethicone Chewable 80 MG TAB PO SCH ×4 (08:07→21:29)
[2019-05-18] MEDS: Apixaban 2.5 MG TAB PO SCH ×2 (08:07→21:29)
[2019-05-18] MEDS: Torsemide 20 MG TAB PO SCH ×2 (08:07→21:29)
[2019-05-18] MEDS: Tamsulosin HCl 0.4 MG CAP PO SCH (08:07)
[2019-05-18] MEDS: Dofetilide 0.125 MG CAP PO SCH ×2 (08:07→21:29)
[2019-05-18] MEDS: Losartan 25 MG TAB PO SCH (08:08)
[2019-05-18] MEDS: Fluticasone Propionate Nasal Spray 16 gm Bottle NASAL SCH (08:08)
[2019-05-18] MEDS: Dutasteride 0.5 MG CAP PO SCH (09:54)
--- NOTE | 2019-05-18 11:09 | PDOC.HOSPP ---
- Subjective Subjective: Patient seen and examined. No new complaints. No overnight events - Objective Vital Signs & Weight: Vital Signs (12 hours) Temp Pulse Resp BP Pulse Ox 05/18/19 09:13 94 96 05/18/19 07:58 97.3 F L 109 H 20 111/59 L 93 L 05/18/19 06:58 96 05/18/19 06:56 89 16 96 05/18/19 03:06 98 16 94 L Weight Admit Weight 192 lb 12.8 oz Weight 192 lb 12.8 oz I&O: 05/17/19 05/18/19 05/19/19 06:59 06:59 06:59 Intake Total 1660 1530 Output Total 1400 Balance 260 1530 Result Diagrams: 05/18/19 05:14 05/18/19 05:14 ROS - Review of Systems All systems: All other ROS were reviewed and found negative. Constitutional: denies: fever, chills, sweats, weakness, malaise, other Eyes: denies: pain, vision change, conjunctivae inflammation, eyelid inflammation, redness, other ENT: denies: ear pain, ear discharge, nose pain, nose discharge, nose congestion , mouth pain, mouth swelling, throat pain, throat swelling, other Respiratory: denies: cough, dry, shortness of breath, hemoptysis, SOB with excertion, pleuritic pain, sputum, wheezing, other Cardiovascular: denies: chest pain, palpitations, orthopnea, paroxysmal noc. dyspnea, edema, light headedness, other Gastrointestinal: denies: nausea, vomitting, abdominal pain, diarrhea, constipation, melena, hematochezia, other Genitourinary: denies: dysuria, frequency, incontinence, hematuria, retention, other Musculoskeletal: reports: back pain. denies: neck pain, shoulder pain, arm pain , hand pain, leg pain, foot pain, other Skin: denies: rash, lesions, eli, bruising, other - Medication Medications: Active Medications Generic Name Dose Route Start Last Admin Trade Name Freq PRN Reason Stop Dose Admin Hydrocodone Bitart/Acetaminophen 1 tab 05/10/19 18:02 05/18/19 05:25 [place] 5/325 PO 1 tab Q4H PRN Administration Moderate Pain (4-6) Albuterol/Ipratropium 3 ml 05/10/19 21:58 05/18/19 03:06 Duoneb NEB 3 ml Q4H PRN Administration SOB &/or Wheezing Apixaban 2.5 mg 05/12/19 21:00 05/18/19 08:07 Eliquis PO 2.5 mg BID SHORTY Administration Aspirin 81 mg 05/11/19 09:00 05/18/19 08:07 Ecotrin PO 81 mg DAILY SHORTY Administration Dofetilide 0.125 mg 05/11/19 21:00 05/18/19 08:07 Tikosyn PO 0.125 mg BID SHORTY Administration Dutasteride 0.5 mg 05/12/19 09:00 05/18/19 09:54 Avodart PO 0.5 mg DAILY SHORTY Administration Famotidine 20 mg 05/11/19 21:00 05/17/19 21:07 Pepcid PO 20 mg HS SHORTY Administration Ferrous Sulfate 325 mg 05/11/19 21:00 05/18/19 08:07 Feosol PO 325 mg BID SHORTY Administration Fluticasone Propionate 1 gm 05/11/19 09:00 05/18/19 08:08 Flonase Nasal [place] NASAL Not Given DAILY SHORTY Losartan Potassium 100 mg 05/11/19 09:00 05/18/19 08:08 Cozaar PO 100 mg DAILY SHORTY Administration Miscellaneous Medication 25 mg 05/15/19 07:30 05/18/19 09:54 Movantik PO 25 mg DAILY-AC SHORTY Administration Mometasone Furoate/Formoterol Fumar 2 puff 05/10/19 18:30 05/18/19 06:56 Dulera 200 Mcg/5 Mcg Inhaler INH 2 puff BID-RT SHORTY Administration Morphine Sulfate 2 mg 05/10/19 18:30 05/17/19 19:58 Morphine SLOW IVP 2 mg Q4H PRN Administration Moderate to Severe Pain (6-10) Pantoprazole Sodium 40 mg 05/12/19 09:00 05/18/19 08:07 Protonix PO 40 mg DAILY SHORTY Administration Prednisone 10 mg 05/16/19 11:40 05/18/19 08:07 Prednisone PO 10 mg QAM-WM SHORTY Administration Rosuvastatin Calcium 10 mg 05/10/19 21:00 05/17/19 21:07 Crestor PO 10 mg HS SHORTY Administration Sertraline HCl 50 mg 05/11/19 21:00 05/17/19 21:06 Zoloft PO 50 mg HS SHORTY Administration Simethicone 80 mg 05/17/19 11:30 05/18/19 08:07 Mylicon Chewable PO 80 mg ACHS SHORTY Administration Tamsulosin HCl 0.4 mg 05/12/19 09:00 05/18/19 08:07 Flomax PO 0.4 mg DAILY SHORTY Administration Torsemide 40 mg 05/11/19 21:00 05/18/19 08:07 Demadex PO 40 mg BID SHORTY Administration - Exam NAD, awake alert Eye: PERRL, anicteric sclera ENT: normocephalic atraumatic, no oropharyngeal lesions Neck: supple, symmetric, no JVD, no Thyromegaly Heart: RRR, no murmur, no gallops, no rubs Respiratory: CTAB, no wheezes, no rales, no ronchi Gastrointestinal: soft, non-tender, non-distended, normal bowel sounds Extremities: no cyanosis, no clubbing, no edema Skin: normal turgor, no lesions Neurological: CN's grossly intact, normal sensation to touch, no focal deficits Musculoskeletal: normal tone, normal strength, no muscle wasting Psychiatric: normal affect, normal behavior Hosp A/P (1) Acute and chronic respiratory failure with hypoxia Code(s): J96.21 - ACUTE AND CHRONIC RESPIRATORY FAILURE WITH HYPOXIA Status: Acute (2) Acute on chronic diastolic (congestive) heart failure Code(s): I50.33 - ACUTE ON CHRONIC DIASTOLIC (CONGESTIVE) HEART FAILURE Status : Acute (3) COPD exacerbation Code(s): J44.1 - CHRONIC OBSTRUCTIVE PULMONARY DISEASE W (ACUTE) EXACERBATION Status: Acute (4) Physical deconditioning Code(s): R53.81 - OTHER MALAISE Status: Acute (5) AVM (arteriovenous malformation) of colon Code(s): K55.20 - ANGIODYSPLASIA OF COLON WITHOUT HEMORRHAGE Status: Chronic (6) Anemia, normocytic normochromic Code(s): D64.9 - ANEMIA, UNSPECIFIED Status: Chronic (7) Anxiety and depression Code(s): F41.9 - ANXIETY DISORDER, UNSPECIFIED; F32.9 - MAJOR DEPRESSIVE DISORDER, SINGLE EPISODE, UNSPECIFIED Status: Chronic (8) Atrial fibrillation Code(s): I48.91 - UNSPECIFIED ATRIAL FIBRILLATION Status: Chronic Qualifiers: Atrial fibrillation type: unspecified Qualified Code(s): I48.91 - Unspecified atrial fibrillation (9) BPH (benign prostatic hyperplasia) Code(s): N40.0 - BENIGN PROSTATIC HYPERPLASIA WITHOUT LOWER URINRY TRACT SYMP Status: Chronic (10) CKD (chronic kidney disease) stage 3, GFR 30-59 ml/min Code(s): N18.3 - CHRONIC KIDNEY DISEASE, STAGE 3 (MODERATE) Status: Chronic (11) Compression fracture Code(s): BWQ6460 - Status: Chronic (12) HTN (hypertension) Code(s): I10 - ESSENTIAL (PRIMARY) HYPERTENSION Status: Chronic Qualifiers: Hypertension type: essential hypertension Qualified Code(s): I10 - Essential (primary) hypertension (13) Lumbar spinal stenosis Code(s): M48.061 - SPINAL STENOSIS, LUMBAR REGION WITHOUT NEUROGENIC FLACO Status: Chronic (14) BRAD (obstructive sleep apnea) Code(s): G47.33 - OBSTRUCTIVE SLEEP APNEA (ADULT) (PEDIATRIC) Status: Chronic - Plan old records reviewed/req, plan discussed w/ family, PT/OT, 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
[2019-05-18] MEDS: Morphine 4 MG/ML VIAL SLOW IVP PRN (20:15)
[2019-05-18] MEDS: Rosuvastatin 10 MG TAB PO SCH (21:29)
[2019-05-18] MEDS: Famotidine 20 MG TAB PO SCH (21:29)
[2019-05-19] MEDS: HYDROcodone/Acetaminophen 5/325 mg Tablet PO PRN ×5 (02:34→21:15)
[2019-05-19] MEDS: Morphine 4 MG/ML VIAL SLOW IVP PRN (04:31)
[2019-05-19] MEDS: Mometasone/Formoterol 120 PUFF INHALER INH SCH (07:18)
[2019-05-19] MEDS: Tamsulosin HCl 0.4 MG CAP PO SCH (08:50)
[2019-05-19] MEDS: Dofetilide 0.125 MG CAP PO SCH ×2 (08:50→20:50)
[2019-05-19] MEDS: Aspirin 81 mg Enteric Coated Tablet PO SCH (08:51)
[2019-05-19] MEDS: Simethicone Chewable 80 MG TAB PO SCH ×4 (08:51→20:45)
[2019-05-19] MEDS: Torsemide 20 MG TAB PO SCH ×2 (08:51→20:48)
[2019-05-19] MEDS: Dutasteride 0.5 MG CAP PO SCH (08:51)
[2019-05-19] MEDS: Losartan 25 MG TAB PO SCH (08:52)
[2019-05-19] MEDS: predniSONE 20 MG TAB PO SCH (08:52)
[2019-05-19] MEDS: Ferrous Sulfate 325 MG TAB PO SCH ×2 (08:53→20:49)
[2019-05-19] MEDS: Fluticasone Propionate Nasal Spray 16 gm Bottle NASAL SCH (08:53)
[2019-05-19] MEDS: Apixaban 2.5 MG TAB PO SCH ×2 (08:53→20:50)
--- NOTE | 2019-05-19 11:23 | PDOC.HOSPP ---
- Subjective Subjective: Patient seen and examined. No new complaints. No overnight events - Objective Vital Signs & Weight: Vital Signs (12 hours) Temp Pulse Resp BP Pulse Ox 05/19/19 07:24 97.4 F L 91 20 128/79 100 05/19/19 07:18 90 14 05/19/19 01:37 95 Weight Admit Weight 192 lb 12.8 oz Weight 192 lb 12.8 oz I&O: 05/18/19 05/19/19 05/20/19 06:59 06:59 06:59 Intake Total 1530 992 Balance 1530 992 Result Diagrams: 05/18/19 05:14 05/18/19 05:14 EKG Reviewed by me: Yes ROS - Review of Systems All systems: All other ROS were reviewed and found negative. Constitutional: denies: fever, chills, sweats, weakness, malaise, other ENT: denies: ear pain, ear discharge, nose pain, nose discharge, nose congestion , mouth pain, mouth swelling, throat pain, throat swelling, other Respiratory: denies: cough, dry, shortness of breath, hemoptysis, SOB with excertion, pleuritic pain, sputum, wheezing, other Cardiovascular: denies: chest pain, palpitations, orthopnea, paroxysmal noc. dyspnea, edema, light headedness, other Gastrointestinal: denies: nausea, vomitting, abdominal pain, diarrhea, constipation, melena, hematochezia, other Genitourinary: denies: dysuria, frequency, incontinence, hematuria, retention, other Musculoskeletal: reports: back pain. denies: neck pain, shoulder pain, arm pain , hand pain, leg pain, foot pain, other Skin: denies: rash, lesions, eli, bruising, other - Medication Medications: Active Medications Generic Name Dose Route Start Last Admin Trade Name Freq PRN Reason Stop Dose Admin Hydrocodone Bitart/Acetaminophen 1 tab 05/10/19 18:02 05/19/19 06:31 [place] 5/325 PO 1 tab Q4H PRN Administration Moderate Pain (4-6) Albuterol/Ipratropium 3 ml 05/10/19 21:58 05/19/19 07:18 Duoneb NEB 3 ml Q4H PRN Administration SOB &/or Wheezing Apixaban 2.5 mg 05/12/19 21:00 05/19/19 08:53 Eliquis PO 2.5 mg BID SHORTY Administration Aspirin 81 mg 05/11/19 09:00 05/19/19 08:51 Ecotrin PO 81 mg DAILY SHORTY Administration Dofetilide 0.125 mg 05/11/19 21:00 05/19/19 08:50 Tikosyn PO 0.125 mg BID SHORTY Administration Dutasteride 0.5 mg 05/12/19 09:00 05/19/19 08:51 Avodart PO 0.5 mg DAILY SHORTY Administration Famotidine 20 mg 05/11/19 21:00 05/18/19 21:29 Pepcid PO 20 mg HS SHORTY Administration Ferrous Sulfate 325 mg 05/11/19 21:00 05/19/19 08:53 Feosol PO 325 mg BID SHORTY Administration Fluticasone Propionate 1 gm 05/11/19 09:00 05/19/19 08:53 Flonase Nasal [place] NASAL Not Given DAILY SHORTY Losartan Potassium 100 mg 05/11/19 09:00 05/19/19 08:52 Cozaar PO 100 mg DAILY SHORTY Administration Miscellaneous Medication 25 mg 05/15/19 07:30 05/18/19 09:54 Movantik PO 25 mg DAILY-AC SHORTY Administration Mometasone Furoate/Formoterol Fumar 2 puff 05/10/19 18:30 05/19/19 07:18 Dulera 200 Mcg/5 Mcg Inhaler INH 2 puff BID-RT SHORTY Administration Morphine Sulfate 2 mg 05/10/19 18:30 05/19/19 04:31 Morphine SLOW IVP 2 mg Q4H PRN Administration Moderate to Severe Pain (6-10) Pantoprazole Sodium 40 mg 05/12/19 09:00 05/19/19 08:52 Protonix PO 40 mg DAILY SHORTY Administration Prednisone 10 mg 05/16/19 11:40 05/19/19 08:52 Prednisone PO 10 mg QAM-WM SHORTY Administration Rosuvastatin Calcium 10 mg 05/10/19 21:00 05/18/19 21:29 Crestor PO 10 mg HS SHORTY Administration Sertraline HCl 50 mg 05/11/19 21:00 05/18/19 21:30 Zoloft PO 50 mg HS SHORTY Administration Simethicone 80 mg 05/17/19 11:30 05/19/19 08:51 Mylicon Chewable PO 80 mg ACHS SHORTY Administration Tamsulosin HCl 0.4 mg 05/12/19 09:00 05/19/19 08:50 Flomax PO 0.4 mg DAILY SHORTY Administration Torsemide 40 mg 05/11/19 21:00 05/19/19 08:51 Demadex PO 40 mg BID SHORTY Administration - Exam NAD, awake alert Eye: PERRL, anicteric sclera ENT: normocephalic atraumatic, no oropharyngeal lesions Neck: supple, symmetric, no JVD Heart: RRR, no murmur, no gallops, no rubs Respiratory: CTAB, no wheezes, no rales, no ronchi Gastrointestinal: soft, non-tender, non-distended, normal bowel sounds Extremities: no cyanosis, no clubbing, no edema Skin: normal turgor, no lesions Neurological: CN's grossly intact, normal sensation to touch, no focal deficits Musculoskeletal: normal tone, normal strength Psychiatric: normal affect, normal behavior Hosp A/P (1) Acute and chronic respiratory failure with hypoxia Code(s): J96.21 - ACUTE AND CHRONIC RESPIRATORY FAILURE WITH HYPOXIA Status: Acute (2) Acute on chronic diastolic (congestive) heart failure Code(s): I50.33 - ACUTE ON CHRONIC DIASTOLIC (CONGESTIVE) HEART FAILURE Status : Acute (3) COPD exacerbation Code(s): J44.1 - CHRONIC OBSTRUCTIVE PULMONARY DISEASE W (ACUTE) EXACERBATION Status: Acute (4) Physical deconditioning Code(s): R53.81 - OTHER MALAISE Status: Acute (5) AVM (arteriovenous malformation) of colon Code(s): K55.20 - ANGIODYSPLASIA OF COLON WITHOUT HEMORRHAGE Status: Chronic (6) Anemia, normocytic normochromic Code(s): D64.9 - ANEMIA, UNSPECIFIED Status: Chronic (7) Anxiety and depression Code(s): F41.9 - ANXIETY DISORDER, UNSPECIFIED; F32.9 - MAJOR DEPRESSIVE DISORDER, SINGLE EPISODE, UNSPECIFIED Status: Chronic (8) Atrial fibrillation Code(s): I48.91 - UNSPECIFIED ATRIAL FIBRILLATION Status: Chronic Qualifiers: Atrial fibrillation type: unspecified Qualified Code(s): I48.91 - Unspecified atrial fibrillation (9) BPH (benign prostatic hyperplasia) Code(s): N40.0 - BENIGN PROSTATIC HYPERPLASIA WITHOUT LOWER URINRY TRACT SYMP Status: Chronic (10) CKD (chronic kidney disease) stage 3, GFR 30-59 ml/min Code(s): N18.3 - CHRONIC KIDNEY DISEASE, STAGE 3 (MODERATE) Status: Chronic (11) Compression fracture Code(s): [id number] - Status: Chronic (12) HTN (hypertension) Code(s): I10 - ESSENTIAL (PRIMARY) HYPERTENSION Status: Chronic Qualifiers: Hypertension type: essential hypertension Qualified Code(s): I10 - Essential (primary) hypertension (13) Lumbar spinal stenosis Code(s): M48.061 - SPINAL STENOSIS, LUMBAR REGION WITHOUT NEUROGENIC FLACO Status: Chronic (14) BRAD (obstructive sleep apnea) Code(s): G47.33 - OBSTRUCTIVE SLEEP APNEA (ADULT) (PEDIATRIC) Status: Chronic - Plan old records reviewed/req, PT/OT, social services specialist pt is stable and baseline await placement continue respiratory therapy pain control and PT/OT medication reviewed as below symptomatic treatment
[2019-05-19 13:00] VITALS: BMI 28.1
[2019-05-19] MEDS: Famotidine 20 MG TAB PO SCH (20:49)
[2019-05-19] MEDS: Rosuvastatin 10 MG TAB PO SCH (20:50)
[2019-05-19 21:01] VITALS: BP 136/71; TEMP 98
--- NOTE | 2019-05-20 08:09 | PQF ---
[employer] Territory Manager Crystal Reports Winform Viewer SHAHRIARJUSTINO JR, SALIM NOORJIBHAI MD [id number] [facility] [id number] CLINICAL DOCUMENTATION CLARIFICATION FORM: POST DISCHARGE Addendum to original discharge summary date: ____ Late entry note date: __ DATE: 05-20-2019 ATTN: Arely Robison Please exercise your independent, professional judgment in responding to the clarification form. Clinical indicators are provided on the bottom of this form for your review Based on your clinical knowledge kindly identify the etiology of patient chest pain? Please check appropriate box(s): Chest pain due to: [ ] Acute on chronic respiratory failure with hypoxia [ ] Emphysema [ ] Acute on chronic diastolic CHF [ ] Musculoskeletal chest pain [ x ] Chest pain unspecified [ ] Other diagnosis please specify: [ ] Unable to determine For continuity of documentation, please document condition throughout progress notes and discharge summary. Thank You. CLINICAL INDICATORS: H&P 05/[address] Norris Chief complaint: chest pain H&P 05/[address] Norris He was having productive cough, he has not cough any phlegm and denies hemoptysis H&P 05/[address] Norris When he was evaluated in the ER he was found to have leukocytosis without clear etiology and given this and chest pain, he is being admitted PN 05/[address] Roe Acute and chronic respiratory failure with hypoxia PN 05/[address] Roe COPD: Emphysema PN 05/[address] Roe I suspect chest pain is musculoskeletal PN 05/[address] Layne Acute on chronic diastolic heart failure RISK FACTORS: H&P 05/10 Dr. Norris-COPD PN 05/11 Dr. Roe- Acute and chronic respiratory failure with hypoxia PN 05/11 Dr. Roe- Emphysema PN 05/11 Dr. Roe-Musculoskeletal chest pain PN 05/16 Roverto - Acute on chronic diastolic heart failure PN 05/16 Roverto- BRAD TREATMENTS: Imaging 05/10 Dr. Kaur- Chest Xray Imaging 05/11- Echocardiogram DEC 25- Vancomycin Hcl 1.25 gm IV DEC 25- Prednisone 20 mg PO daily DEC 25- Morphine 2mg IV DEC 25- Torsemide 40 mg BID (This form is maintained as a part of the permanent medical record) 2014 [employer]. All Rights Reserved Kay [email or web address] [not provided] MTDD
--- NOTE | 2019-05-20 15:17 | DIS ---
DATE OF ADMISSION: 05/10/2019 DATE OF DISCHARGE: 05/19/2019 DISCHARGE DISPOSITION: Rehab. PRIMARY DISCHARGE DIAGNOSES: 1. Acute on chronic respiratory failure with hypoxia. 2. Chronic obstructive pulmonary disease exacerbation. 3. Acute on chronic diastolic heart failure exacerbation. 4. Compression fracture of the thoracic vertebrae. SECONDARY DISCHARGE DIAGNOSES: 1. Obstructive sleep apnea. 2. Lumbar stenosis. 3. Hypertension. 4. Chronic kidney disease, stage 4. 5. Benign enlargement of prostate. 6. Anxiety and depression. 7. Atrial fibrillation. 8. Normocytic normochromic anemia. 9. Chronic obstructive pulmonary disease. 10. Chronic diastolic heart failure. 11. Chronic respiratory failure. PRIMARY PROCEDURE/OPERATION: None. RADIOLOGICAL INVESTIGATION: Chest x-ray ultrasonography, thoracic spine CT scan, echocardiography, abdominal ultrasound. SIGNIFICANT LABORATORY DATA: Hemoglobin 9.5, INR 1.8, creatinine 2.01. Urinalysis normal. DISCHARGE MEDICATIONS: 1. Dutasteride one tablet daily. 2. Nexium 40 mg daily. 3. Pepcid 20 mg at bedtime. 4. Ferrous sulfate 325 mg b.i.d. 5. Losartan 100 mg daily. 6. Dulera 2 puff inhalation b.i.d. 7. Zoloft 50 mg at bedtime. 8. Testosterone every 2 weeks. 9. Demadex 40 mg b.i.d. 10. DuoNeb q.4 hourly. 11. Eliquis 2.5 mg b.i.d. 12. Aspirin 81 mg daily. 13. Tikosyn 0.125 mg p.o. b.i.d. 14. Flonase nasal spray daily. 15. Prednisone 10 mg daily. 16. Crestor 10 mg p.o. at bedtime. 17. Simethicone 80 mg a.c. at bedtime p.r.n. 18. Flomax 0.4 mg daily. CONTRAINDICATION: None. CODE STATUS: Full code. INPATIENT SUPERVISOR ORCHARD: Cardiology group was following while in hospital. TEST RESULT PENDING ON DISCHARGE: None. ALLERGIES: NO KNOWN DRUG ALLERGIES. DISCHARGE PLAN: Posthospital, the patient is discharged to rehab. Subsequently, the patient will follow up with Dr. Mary. HOSPITAL COURSE: A 78-year-old male, who was admitted by Dr. Norris. Please see her H and P for further details. The patient was having increasing shortness of breath. He was diagnosed with diastolic CHF exacerbation and COPD exacerbation. He was treated medically. Cardiology was following while in hospital. This patient kept complaining of upper back pain and that is why we did thoracic spine CT scan, which confirmed acute/subacute compression fracture. The patient had abnormal LFT and that is why we did ultrasound of gallbladder, which was unremarkable. The patient was complaining of weakness and that is why we arranged [facility] home placement for him. The patient's abdominal discomfort improved with simethicone and that is why we attributed to be due to gas pain. He did not have any gallbladder problem. His culture remained negative. The patient was approved to go to [facility] home/rehab paperwork for discharge done. Discharge medication reconciliation done. The patient was seen on the day of discharge. Please see my progress note from that day. Job ID: [id number]
--- NOTE | 2019-05-20 16:01 | EKG ---
Test Reason : Blood Pressure : / mmHG Vent. Rate : 096 BPM Atrial Rate : 096 BPM P-R Int : 146 ms QRS Dur : 088 ms QT Int : 374 ms P-R-T Axes : 062 -16 053 degrees QTc Int : 472 ms Normal sinus rhythm Normal ECG Confirmed by JAY VICTOR ([id number]), editor index MAGNO MENESES ([id number]) on 05/20/2019 4:00:56 PM Referred By: Confirmed By:JAY VICTOR
== END 2019-05-19 21:31 | DRG 291 ==
LOC: ERS 12:01 → 2NO 17:57 → T4-A 05-13 16:11
PROVIDERS: ADMIT Internal Medicine; ATTEND Internal Medicine
DX: I13.0 Hypertensive heart and chronic kidney disease with heart failure and stage 1 through stage 4 chronic kidney disease, or unspecified chronic kidney disease (principal); J96.21 Acute and chronic respiratory failure with hypoxia; I50.33 Acute on chronic diastolic (congestive) heart failure; M48.54XA Collapsed vertebra, not elsewhere classified, thoracic region, initial encounter for fracture; N18.4 Chronic kidney disease, stage 4 (severe); R07.9 Chest pain, unspecified; I48.2 Chronic atrial fibrillation; D63.1 Anemia in chronic kidney disease; J43.9 Emphysema, unspecified; G47.33 Obstructive sleep apnea (adult) (pediatric); T38.0X5A Adverse effect of glucocorticoids and synthetic analogues, initial encounter; D72.829 Elevated white blood cell count, unspecified; R07.89 Other chest pain; K55.20 Angiodysplasia of colon without hemorrhage; N40.0 Benign prostatic hyperplasia without lower urinary tract symptoms; F41.9 Anxiety disorder, unspecified; F32.9 Major depressive disorder, single episode, unspecified; M48.061 Spinal stenosis, lumbar region without neurogenic claudication; Z87.891 Personal history of nicotine dependence; Z79.82 Long term (current) use of aspirin; Z79.899 Other long term (current) drug therapy; Z79.01 Long term (current) use of anticoagulants; Z79.52 Long term (current) use of systemic steroids
CPT/HCPCS: 36415; 71045; 72128; 76705; 80048; 80053; 80202; 81003; 83605; 83880; 84484; 85025; 85379; 85610; 85730; 87040; 87324; 87449; 93005; 93306; 93970; 94640; 94760; 96365; 96367; 96375; J2270; J2543; J3370; J3490; J7050; J7512; J7620; J8499

== ENCOUNTER 2019-08-18 12:10 | Outpatient (CLI) | payer MEDICARE, BC ==
[2019-08-18 13:57] LABS: Hemoglobin 7.2 g/dL (14.0-18.0); Mean Corpuscular HGB CONC 31.4 g/dL (32.0-36.0); Mean Corpuscular Hemoglobin 27.1 pg (27.0-31.0); Mean Corpuscular Volume 86.5 fL (78.0-98.0); Mean Platelet Volume 7.5 fL (7.4-10.4); Platelet Count 370 thou/uL (130-400); RBC Distribution Width 16.9 % (11.5-14.5); Red Blood Cell (RBC) Count 2.65 mill/uL (4.70-6.10); White Blood Cell (WBC) Count 12.8 thou/uL (4.8-10.8)
[2019-08-18 14:15] LABS: INR-International Normal Ratio 1.3; PTT 30.1 SEC (22.9-36.1); Prothrombin Time 16.3 SEC (12.0-14.7)
[2019-08-18 14:22] LABS: Anion Gap 10 mmol/L (10-20); BUN (Urea Nitrogen) 64 mg/dL (8.4-25.7); Calc. Creatinine Clearance 0 mL/min (70-130); Calcium 8.3 mg/dL (7.8-10.44); Carbon Dioxide 27 mmol/L (23-31); Chloride 104 mmol/L (98-107); Estimated GFR-MDRD 33; Glucose 98 mg/dL (83-110); Potassium 4.4 mmol/L (3.5-5.1); Sodium 137 mmol/L (136-145)
--- NOTE | 2019-08-18 16:40 | EKG ---
Test Reason : Blood Pressure : / mmHG Vent. Rate : 091 BPM Atrial Rate : 091 BPM P-R Int : 164 ms QRS Dur : 076 ms QT Int : 376 ms P-R-T Axes : 041 -05 037 degrees QTc Int : 462 ms Normal sinus rhythm RSR' or QR pattern in V1 suggests right ventricular conduction delay Possible Inferior infarct , age undetermined Possible Anterior infarct , age undetermined Abnormal ECG Confirmed by ELVIS GARCIA ([id number]) on 08/18/2019 4:40:25 PM Referred By: SANDRA Confirmed By:ELVIS GARCIA
== END 2019-08-18 12:11 | disposition home or self-care (01) ==
LOC: LABBT 12:10
PROVIDERS: ATTEND Internal Medicine Cardiovascular Disease
DX: Z01.818 Encounter for other preprocedural examination (principal); I48.91 Unspecified atrial fibrillation
CPT/HCPCS: 80048; 85027; 85610; 85730; 93005; 93010

== ENCOUNTER 2019-08-19 09:17 | Day surgery (SDC) | payer MEDICARE, BC ==
[2019-08-18 12:35] VITALS: BMI 29.7
[2019-08-19] MEDS ORDERED: PROPOFOL 40 ML ONE (12:13)
--- NOTE | 2019-08-19 19:40 | ECHO ---
DATE OF SERVICE: 08/19/19 REFERRING PHYSICIAN: Dr. Luis Miguel Gonzalez and Dr. Mary. REASON FOR PROCEDURE: The patient is a 78-year-old man with prior history of paroxysmal atrial fibrillation on Tikosyn. Sta tus post left atrial appendage closure device and Watchman closure device in February 2019 with minor leak postprocedure. He has continued anticoagulation and is here for a ANNAMARIA to evaluate current leaks. PROCEDURE: The patient received propofol by Anesthesia specialist. After adequate level of sedation achieved, a standard transesophageal echocardiogram probe was passed into the esophagus without diff iculty. Patient tolerated the procedure well, no complications noted. RESULTS: Left atrium is moderately enlarged about 5.3 cm in horizontal diameter. The left atrial appendage we ll visualized. The adequately seated Watchman device in place. There is echolucency posterior to the device in the left atrial appendage suggestive of still communication present with the left atrium. Color flow interrogation does reveal dual flow on both sides of the device. Four out of four pulmonar y veins are visualized. The interatrial septum with residual PFO with left to right flow only. The mi tral valve has mild regurgitation. Left ventricular systolic function is preserved. No pericardial ef fusion noted. Right sided chambers normal in size. The visualized portion of ascending and descending aorta without aneurysm or dissection. The descending aorta has significant but adherent atheroma not ed throughout. Aortic valve has three leaflets without regurgitation or stenosis. CONCLUSION: 1. Adequately seated Watchman device but with residual leaks around the device similar to prior ANNAMARIA in April with suboptimal opacification of the left atrial appendage behind the Watchman device. 2. Moderate left atrial enlargement. 3. Mild to moderate MR. 4. Normal LV systolic function. 5. Mild residual PFO seen. PLAN: Continue anticoagulation and we will send CD for review to [facility] for consultation of coiling.
== END 2019-08-19 14:05 | disposition home or self-care (01) ==
LOC: CCL 09:17
PROVIDERS: ATTEND Internal Medicine Cardiovascular Disease
PROC: B24BZZ4 Ultrasonography of Heart with Aorta, Transesophageal (ICD-10-PCS; principal; 2019-08-19)
DX: I48.0 Paroxysmal atrial fibrillation (principal); Q21.1 Atrial septal defect; I34.0 Nonrheumatic mitral (valve) insufficiency; I13.0 Hypertensive heart and chronic kidney disease with heart failure and stage 1 through stage 4 chronic kidney disease, or unspecified chronic kidney disease; N18.9 Chronic kidney disease, unspecified; I50.32 Chronic diastolic (congestive) heart failure; J44.9 Chronic obstructive pulmonary disease, unspecified; Z79.01 Long term (current) use of anticoagulants; Z79.52 Long term (current) use of systemic steroids; Z79.899 Other long term (current) drug therapy; Z91.048 Other nonmedicinal substance allergy status; Z95.818 Presence of other cardiac implants and grafts
CPT/HCPCS: 93312; J2704; J7620

== ENCOUNTER 2019-08-24 14:08 | Inpatient (IN) | payer MEDICARE, BC ==
[2019-08-24 15:15] LABS: #Lymphocytes 0.7 thou/uL (1.20-3.40); #Monocytes 0.6 thou/uL (0.11-0.59); #Neutrophils 9.3 thou/uL (1.40-6.50); %Basophils 0.3 % (0.0-1.0); %Eosinophils 0.3 % (0.0-10.0); %Lymphocytes 6.8 % (21.0-51.0); %Monocytes 5.3 % (0.0-10.0); %Neutrophils 87.3 % (42.0-75.0); Hemoglobin 6.3 g/dL (14.0-18.0); Mean Corpuscular HGB CONC 31.6 g/dL (32.0-36.0); Mean Corpuscular Hemoglobin 27.1 pg (27.0-31.0); Mean Corpuscular Volume 85.7 fL (78.0-98.0); Mean Platelet Volume 7.4 fL (7.4-10.4); Platelet Count 308 thou/uL (130-400); RBC Distribution Width 16.7 % (11.5-14.5); Red Blood Cell (RBC) Count 2.33 mill/uL (4.70-6.10); White Blood Cell (WBC) Count 10.6 thou/uL (4.8-10.8)
[2019-08-24 15:33] LABS: ALT (SGPT) 22 U/L (8-55); AST (SGOT) 14 U/L (5-34); Albumin 3.5 g/dL (3.4-4.8); Alkaline Phosphatase 85 U/L (40-110); Anion Gap 15 mmol/L (10-20); BUN (Urea Nitrogen) 41 mg/dL (8.4-25.7); Bilirubin, Total 0.3 mg/dL (0.2-1.2); Calc. Creatinine Clearance 0 mL/min (70-130); Calcium 8.2 mg/dL (7.8-10.44); Carbon Dioxide 23 mmol/L (23-31); Chloride 105 mmol/L (98-107); Estimated GFR-MDRD 29; Globulin 1.9 g/dL (2.4-3.5); Glucose 149 mg/dL (83-110); Potassium 3.7 mmol/L (3.5-5.1); Protein, Total 5.4 g/dL (5.8-8.1); Sodium 139 mmol/L (136-145)
[2019-08-24 16:09] LABS: INR-International Normal Ratio 1.3; Prothrombin Time 16.3 SEC (12.0-14.7)
--- NOTE | 2019-08-24 16:11 | RAD ---
PORTABLE CHEST ONE VIEW: Date: 08-24-19 Time: 3:56 p.m. History: Weakness, dyspnea. FINDINGS: Comparison made with exam of 08-17-19. The heart size is normal. The aorta is tortuous. Chronic changes in the lung zhou are again seen. N o lobar consolidation, pneumothoraces, or pleural effusions are seen. IMPRESSION: No acute process. POS: OFF
[2019-08-24] MEDS ORDERED: Furosemide 20 MG/2 ML VIAL ONE (16:49)
[2019-08-24] MEDS ORDERED: Furosemide 40 MG/4 ML VIAL ONE (16:49)
[2019-08-24] MEDS ORDERED: Guaifenesin DM 100-10/5 ML UDCUP PO PRN (18:49)
[2019-08-24] MEDS ORDERED: Ondansetron PF 4 MG/2 ML Vial IVP PRN (18:49)
[2019-08-24] MEDS ORDERED: Bisacodyl 10 MG SUPP PR PRN (18:49)
[2019-08-24] MEDS ORDERED: Senokot S 8.6-50 MG TAB PO PRN (18:49)
[2019-08-24] MEDS ORDERED: Ipratropium Bromide 2.5 ml Neb NEB SCH (19:00)
[2019-08-24 19:26] LABS: Hemoglobin 7.4 g/dL (14.0-18.0)
[2019-08-24] MEDS: Dofetilide 0.125 MG CAP PO SCH (20:52)
[2019-08-24] MEDS: Gabapentin 100 MG CAP PO SCH (20:53)
[2019-08-24] MEDS: Rosuvastatin 10 MG TAB PO SCH (20:53)
[2019-08-24] MEDS: Carvedilol 3.125 MG TAB PO SCH (20:56)
[2019-08-24 23:56] VITALS: BMI 29.4
[2019-08-25 01:40] LABS: Hemoglobin 7.4 g/dL (14.0-18.0)
[2019-08-25] MEDS: Furosemide 40 MG/4 ML VIAL SLOW IVP SCH ×2 (05:58→14:04)
--- NOTE | 2019-08-25 07:26 | HP ---
REASON FOR ADMISSION: Acute blood loss anemia, acute kidney injury. HISTORY OF PRESENTING ILLNESS: The patient gives history of feeling weak for last 2 weeks. This was gradually getting worse to the point that he could not ambulate this morning. He was feeling that his legs were sticking to the ground. No una bleeding. He has had hemoglobin of 7 g on arrival. The patient states that when his hemoglobin drops, he gets this feeling and he has had nearly 8 transfusions in the past. He does not know the exact cause of his anemia. He has had prior endoscopies done, which have not revealed any bleeding source per patient. He has also had a capsule endoscopy per patient. He sees Dr. Odom. He has had recent transesophageal echo done on the and was told that he needs to go to [place] on the for coiling due to leak around Watchman device which was placed on March 13, 2019. No complaints of melena or bright red per rectum. No history of malignancy as far as he knows. He has not seen an oncologist or jewelry consultant so far for anemia. PAST MEDICAL AND SURGICAL HISTORY: History of anemia with a nearly 8 transfusions done. The last transfusion was 2 months back when he had 2 units of packed cell. This was done in [facility] per patient. Hypertension; severe COPD; obstructive sleep apnea, on CPAP, chronic respiratory failure, on 3 L nasal cannula; has Watchman device with leak around it. This was placed on March 13, 2019. He is scheduled for coiling of the leak around the Watchman device on the in [place]. Chronic atrial fibrillation with prior ablations, left knee surgery. CURRENT MEDICATIONS: Please note, the patient does not recall any of his medications. He goes to [facility] on [place]. We will try to obtain all his current medications from there. Per prior records which are updated on the 18 of August. The patient is on, 1. Eliquis mg twice daily. 2. Nexium 40 mg daily. 3. Gabapentin 100 mg twice daily. 4. DuoNeb 4 times daily. 5. Metolazone 2.5 mg daily. 6. K-Dur 20 mEq p.o. daily. 7. It is unclear if the patient is still on prednisone. We will confirm the same from his pharmacy. 8. Daliresp 500 mcg daily. 9. Spiriva inhaler 18 mcg daily. 10. Demadex 40 mg daily. 11. Tikosyn 0.125 mg p.o. twice daily. 12. Avodart 0.5 mg daily. 13. Flonase nasal spray daily. 14. Cozaar 100 mg daily. 15. Crestor 10 mg p.o. at bedtime. 16. Flomax 0.4 mg p.o. daily. ALLERGIES: TO ADHESIVES. PERSONAL HISTORY: Quit smoking more than 10 years ago, but has smoked for nearly 48 years with almost two packs a day. Does not abuse alcohol or drugs. Lives with his . Ambulates with a walker. FAMILY HISTORY: Mother at the age of 53 years. She has had history of [place]. Father in his 70s and had [place] as well. CODE STATUS: Full. Power of workers compensation defense attorney is his . REVIEW OF SYSTEMS: CONSTITUTIONAL: Negative for weight loss or gain, ability to conduct usual activities. SKIN: Negative for rash, itching. EYES: Negative for double vision, pain. ENT/MOUTH: Negative for nose bleeding, neck stiffness, pain, tenderness. CARDIOVASCULAR: Negative for palpitations, dyspnea on exertion, orthopnea. RESPIRATORY: Negative for shortness of breath, wheezing, cough, hemoptysis, fever or night sweats. GASTROINTESTINAL: Negative for poor appetite, abdominal pain, heartburn, nausea , vomiting, constipation, or diarrhea. GENITOURINARY: Negative for urgency, frequency, dysuria, nocturia. MUSCULOSKELETAL: Negative for pain, swelling. NEUROLOGIC/PSYCHIATRIC: Negative for anxiety, depression. ALLERGY/IMMUNOLOGIC: Negative for skin rash, bleeding tendency. PHYSICAL EXAMINATION: GENERAL: The patient is a 78-year-old male, who is currently not in any acute distress. VITAL SIGNS: Blood pressure on arrival 97/56, pulse 90 per minute, temperature 98.2 degrees Fahrenheit, saturating 90% on 4 L nasal cannula. Temperature was 99 degrees. NECK: Supple. No elevated JVD. HEENT: Eyes; extraocular muscles intact. Pupils reacting to light. Oral cavity, mucous membranes are dry. No exudates or congestion CARDIOVASCULAR: S1 and S2 heard. Regular rhythm. RESPIRATORY: Air entry 1+ bilateral. Scattered rhonchi plus bilateral. ABDOMEN: Soft. Bowel sounds heard. No tenderness, rigidity, or guarding. EXTREMITIES: There is 2+ peripheral edema. No calf tenderness. VASCULAR SYSTEM: Peripheral pulses 1+ bilateral. No ischemic ulcerations or gangrene. CENTRAL NERVOUS SYSTEM: No gross focal deficits noted. The patient is alert, awake, and oriented well. PSYCHIATRIC: The patient's mood is euthymic. No hallucinations or delusions. LABORATORY DATA: White count of 10, H and H 6.3 and 19 on arrival, platelet count 308,000, MCV is 85 with 87% neutrophils, PT/INR 16 and 1.3. BUN 41, creatinine 2.1, serum bicarb 23, serum glucose 149. BNP 301. Troponin I x1 negative. Liver enzymes within normal limits. Albumin is 3.5. TSH 1.85. DIAGNOSTIC DATA: Chest x-ray done shows no acute infiltrate. EKG done shows normal sinus rhythm at 87 beats per minute. CLINICAL IMPRESSION AND PLAN: The patient will be admitted to telemetry for acute blood loss anemia. It is unclear if it is a GI source. We will obtain consultation with Dr. Odom, his vp scientific affairs in the morning. We will obtain serial H and H. The patient is scheduled to receive 2 units of packed cell which has been ordered in the ER. We will continue his Coreg, Tikosyn, Avodart, gabapentin, small dose of lisinopril, Crestor, and Flomax as before. He will be on Lasix 40 mg at 6 a.m. and 2:00 p.m. along with metolazone for severe lower extremity edema. He also has edema up until his lower quadrants of the abdomen and torso on the back. He will be on clear liquid diet for now. We will keep him n.p.o. after midnight. It is unclear if the patient is on long-standing prednisone at home. In any case, we will obtain a stat cortisol levels and we will also obtain a.m. level. In view of current bleeding, we will hold off on steroids unless the patient goes into adrenal insufficiency. We will try to obtain his current medications from [facility] on [facility]. PT/OT evaluations will be requested for early mobilization. PRISCILA alvarez for lower extremities, DuoNeb q.6 hourly as well. Job ID: [id number] [facility]
[2019-08-25] MEDS ORDERED: Non-Formulary Item 1 EACH (Tiotropium Bromide [Spiriva] 18 MCG) IH SCH (09:00)
[2019-08-25 10:24] LABS: Hemoglobin 7.9 g/dL (14.0-18.0)
[2019-08-25 10:55] LABS: ALT (SGPT) 21 U/L (8-55); AST (SGOT) 13 U/L (5-34); Albumin 3.2 g/dL (3.4-4.8); Alkaline Phosphatase 90 U/L (40-110); Anion Gap 12 mmol/L (10-20); BUN (Urea Nitrogen) 34 mg/dL (8.4-25.7); Bilirubin, Total 0.5 mg/dL (0.2-1.2); Calc. Creatinine Clearance 45 mL/min (70-130); Calcium 8.2 mg/dL (7.8-10.44); Carbon Dioxide 25 mmol/L (23-31); Chloride 108 mmol/L (98-107); Estimated GFR-MDRD 39; Globulin 2.1 g/dL (2.4-3.5); Glucose 94 mg/dL (83-110); Magnesium 2.4 mg/dL (1.6-2.6); Potassium 3.3 mmol/L (3.5-5.1); Protein, Total 5.3 g/dL (5.8-8.1); Sodium 142 mmol/L (136-145)
[2019-08-25] MEDS: Gabapentin 100 MG CAP PO SCH ×2 (11:21→21:12)
[2019-08-25] MEDS: Tamsulosin HCl 0.4 MG CAP PO SCH (11:21)
[2019-08-25] MEDS: Dofetilide 0.125 MG CAP PO SCH ×2 (11:21→21:11)
[2019-08-25] MEDS: Dutasteride 0.5 MG CAP PO SCH (11:21)
[2019-08-25] MEDS: Metolazone 2.5 MG TAB PO SCH (11:22)
[2019-08-25] MEDS: Carvedilol 3.125 MG TAB PO SCH ×2 (11:22→21:11)
[2019-08-25] MEDS: Lisinopril 2.5 MG TAB PO SCH (11:22)
--- NOTE | 2019-08-25 13:52 | PDOC.HOSPP ---
- Subjective Encounter Date: 08/25/19 Encounter Time: 07:40 Subjective: Pt seen for followup re: symptomatic anemia. Says he feels weak. - Objective Vital Signs & Weight: Vital Signs (12 hours) Temp Pulse Pulse Pulse Pulse Resp BP 08/25/19 11:23 81 20 08/25/19 11:19 97.8 F 91 16 08/25/19 09:57 85 99 138/65 08/25/19 08:50 88 87 138/60 08/25/19 08:15 98.2 F 85 20 08/25/19 07:17 08/25/19 07:13 83 20 08/25/19 04:00 98.9 F 79 18 BP BP BP Pulse Ox Pulse Ox Pulse Ox Pulse Ox 08/25/19 11:23 08/25/19 11:19 142/70 H 96 08/25/19 09:57 143/66 H 80 L 98 08/25/19 08:50 119/59 L 94 L 94 L 08/25/19 08:15 143/65 H 92 L 08/25/19 07:17 96 08/25/19 07:13 96 08/25/19 04:00 145/70 H 99 Weight Weight 199 lb 8 oz I&O: 08/24/19 08/25/19 08/26/19 06:59 06:59 06:59 Intake Total 600 Output Total 600 Balance 0 Result Diagrams: 08/25/19 09:38 08/25/19 09:38 Additional Labs: Labs and MARs reviewed by me EKG Reviewed by me: Yes (Tele; NSR) Hospitalist ROS - Review of Systems Cardiovascular: denies: chest pain, palpitations, orthopnea, paroxysmal noc. dyspnea, edema, light headedness Gastrointestinal: denies: nausea, vomiting, abdominal pain, diarrhea, constipation, melena, hematochezia - Medication Medications: Active Medications Generic Name Dose Route Start Last Admin Trade Name Freq PRN Reason Stop Dose Admin Albuterol/Ipratropium 3 ml 08/25/19 07:00 08/25/19 11:23 Duoneb NEB 3 ml [id number] SHORTY Administration Carvedilol 3.125 mg 08/24/19 21:00 08/25/19 11:22 Coreg PO 3.125 mg BID SHORTY Administration Dofetilide 0.125 mg 08/24/19 21:00 08/25/19 11:21 Tikosyn PO 0.125 mg BID SHORTY Administration Dutasteride 0.5 mg 08/25/19 09:00 08/25/19 11:21 Avodart PO 0.5 mg DAILY SHORTY Administration Furosemide 40 mg 08/25/19 06:00 08/25/19 05:58 Lasix SLOW IVP 40 mg 0600,1400 SHORTY Administration Gabapentin 100 mg 08/24/19 21:00 08/25/19 11:21 Neurontin PO 100 mg BID SHORTY Administration Lisinopril 2.5 mg 08/25/19 09:00 08/25/19 11:22 Zestril PO 2.5 mg DAILY SHORTY Administration Metolazone 2.5 mg 08/25/19 09:00 08/25/19 11:22 Zaroxolyn PO 2.5 mg DAILY SHORTY Administration Rosuvastatin Calcium 10 mg 08/24/19 21:00 08/24/19 20:53 Crestor PO 10 mg HS SHORTY Administration Tamsulosin HCl 0.4 mg 08/25/19 09:00 08/25/19 11:21 Flomax PO 0.4 mg DAILY SHORTY Administration - Exam General Appearance: NAD Eye: anicteric sclera ENT: moist mucosa Neck: supple Heart: RRR Respiratory: CTAB Gastrointestinal: soft, non-tender Extremities: no clubbing, 2+ LE edema Musculoskeletal: no muscle wasting Psychiatric: normal affect, normal behavior Hosp A/P (1) Symptomatic anemia Code(s): D64.9 - ANEMIA, UNSPECIFIED Status: Acute (2) BPH (benign prostatic hyperplasia) Code(s): N40.0 - BENIGN PROSTATIC HYPERPLASIA WITHOUT LOWER URINRY TRACT SYMP Status: Chronic (3) HTN (hypertension) Code(s): I10 - ESSENTIAL (PRIMARY) HYPERTENSION Status: Chronic Qualifiers: Hypertension type: essential hypertension Qualified Code(s): I10 - Essential (primary) hypertension (4) BRAD (obstructive sleep apnea) Code(s): G47.33 - OBSTRUCTIVE SLEEP APNEA (ADULT) (PEDIATRIC) Status: Chronic (5) CKD (chronic kidney disease) stage 3, GFR 30-59 ml/min Code(s): N18.3 - CHRONIC KIDNEY DISEASE, STAGE 3 (MODERATE) Status: Chronic - Plan plan discussed w/ family, out of bed/ambulate Serial HH, transfuse PRN, await GI consult. Acute worsening of stage 3 CKD has resolved. Monitor for heart failure exacerbation. BPH stable.
[2019-08-25] MEDS: Acetaminophen 325 MG TAB PO PRN ×2 (14:13→21:17)
[2019-08-25] MEDS: Rosuvastatin 10 MG TAB PO SCH (21:11)
--- NOTE | 2019-08-25 22:16 | CON ---
DATE OF CONSULTATION: REASON FOR CONSULTATION: Anemia and fatigue. HISTORY OF PRESENT ILLNESS: Mr. Mart is a 78-year-old gentleman with several medical problems, mainly severe COPD, sleep apnea, on CPAP with three nasal cannula at all times, atrial fibrillation with chronic anticoagulation. Apparently has a Watchman in place, but that has not been adequate. He has had issues with chronic anemia and is on iron and PPIs daily. He started just feeling weaker than normal and so his called his primary physician's office and they decided to come to the emergency room. They advised it because the treatment will be quicker than waiting for an office appointment. He was to the point where he just could not really walk and move his legs. He reports his bowels are dark all the time. He has had no melena or overt hematochezia or diarrhea. He states he has had formed stools, in fact he did not have any today. He has had no vomiting. He remains on Eliquis twice a day. Apparently, there was some plan for some type of treatment on the of the Watchman device in [place], [place]. 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 He had some mild gastric antral erythema, but no other lesions and no active bleeding. He also had an upper and lower endoscopy in 04/2018 also for the same issues. He had two diminutive hyperplastic sigmoid polyps removed, which were not felt to be premalignant. He had diverticulosis and internal hemorrhoids. Reviewing his labs since 07/2018, his hemoglobin has been between 9 and 10, at times dropping to 6 or 7. His hemoglobin on 07/13 was 8.8; on 08/18, it was 7.2; and when he presented yesterday, it was 6.3. He has received 2 units of blood and his hemoglobin was 7.9. White count 10.6, MCV was 85, INR was 1.3. Chemistries notable for a sodium of 142, potassium 3.3, BUN and creatinine 34 and 1.7. When he came in, his hematocrit was 2.1. Liver function tests are normal. No iron studies were obtained on admission. No B12 or folate was obtained. The patient's is upset as he was n.p.o. today for a possible procedure. I did inform her that I was not contacted about any procedures. The physician in fact did not contact me directly, but a consult called into the office nonemergently. PAST MEDICAL HISTORY: Chronic anemia, chronic anticoagulation, COPD severe, on home O2 and CPAP, previous Watchman device, atrial fibrillation, heart failure. CURRENT MEDICATIONS: 1. Prednisone 20 mg daily. 2. Levsin. 3. Spiriva. 4. Testosterone. 5. Flomax. 6. Sertraline. 7. Crestor. 8. Daliresp. 9. Cozaar. 10. Lidoderm. 11. Ipratropium. 12. Fluconazole. 13. Famotidine. 14. Tikosyn. 15. Avodart. 16. Azithromycin. 17. Eliquis 2.5 b.i.d. 18. Acetaminophen. 19. Alprazolam. Present medications here; 1. Tylenol. 2. DuoNeb. 3. Tikosyn. 4. Avodart. 5. Lasix. 6. Furosemide. 7. Robitussin. 8. Senna. 9. Tamsulosin. PHYSICAL EXAMINATION: VITAL SIGNS: Temperature is 98, pulse 77, blood pressure is 143/66. GENERAL: He is obese. He has CPAP on. He is hard of hearing. He has labored breathing mildly. LUNGS: Decreased breath sounds at bases. HEART: Regular rate and rhythm. ABDOMEN: Nontender. There is no rebound. There is no guarding. EXTREMITIES: Reveal trace edema. LABORATORY STUDIES: As per HPI. ASSESSMENT: Chronic anemia, transfusion dependent. He had 2 units yesterday on admission. His last transfusion was in May and then he had transfusion in February, January, and December. This is likely related to his chronic anticoagulation. He may be a bit over anticoagulated with his renal function being borderline. He probably has AVMs. He has had a recent colonoscopy and an EGD in the middle of last year and then this year he has had an EGD again. There was no overt acute bleeding identified. RECOMMENDATIONS: 1. I think there may be some need to consider stopping his anticoagulation. A capsule endoscopy of the small bowel could definitely be arranged in the outpatient setting. However, if anything meaningful are found, I do not think he would be able to tolerate endoscopy to do anything about it as he has severe COPD requiring oxygen all the time and require intubation for any type of an intervention in this patient. 2. The patient's is very upset he has been n.p.o. all day. I have explained to her that there is no indication to proceed with endoscopy at this point time and I have recommended that he go ahead and get to eat. We will go and follow along with you during the hospitalization. Job ID: [id number]
[2019-08-26 05:14] LABS: Hemoglobin 7.9 g/dL (14.0-18.0)
[2019-08-26] MEDS: Furosemide 40 MG/4 ML VIAL SLOW IVP SCH ×2 (05:46→14:04)
[2019-08-26 06:22] LABS: Ferritin 48.56 ng/mL (22-322)
[2019-08-26] MEDS: Gabapentin 100 MG CAP PO SCH ×2 (09:22→20:27)
[2019-08-26] MEDS: Tamsulosin HCl 0.4 MG CAP PO SCH (09:22)
[2019-08-26] MEDS: Dofetilide 0.125 MG CAP PO SCH ×2 (09:22→20:26)
[2019-08-26] MEDS: Metolazone 2.5 MG TAB PO SCH (09:22)
[2019-08-26] MEDS: Lisinopril 2.5 MG TAB PO SCH (09:23)
[2019-08-26] MEDS: Carvedilol 3.125 MG TAB PO SCH ×2 (09:23→20:26)
[2019-08-26] MEDS: Dutasteride 0.5 MG CAP PO SCH (09:23)
--- NOTE | 2019-08-26 11:30 | CON ---
DATE OF CONSULTATION: 08/26/2019 REASON FOR CONSULTATION: Recurrent severe anemia, history of atrial fibrillation, and previous Watchman. HISTORY OF PRESENT ILLNESS: Mr. Mart is a very pleasant 78-year-old gentleman, who has really had a very complicated medical history. He has severe COPD. He also has a history of atrial arrhythmias. The patient has had recurrent anemia and GI blood loss on anticoagulation, therefore a Watchman was placed in the spring. However, he did have a leak around the Watchman therefore, he was kept on Eliquis. Recent transesophageal echo showed there is a continued area where there was leak around the Watchman. Therefore, we scheduled for further therapy on this on coiling in [place] next week. However, he came to the hospital complaining of severe weakness and fatigue, and was found to have a hemoglobin of 6.3, and received 2 units of packed red blood cells. REVIEW OF SYSTEMS: CONSTITUTIONAL: Positive for weakness and fatigue. VISION: No changes. HEARING: No changes. PULMONARY: Positive for shortness of breath. GASTROINTESTINAL: No overt bleeding. CARDIAC: No chest pain. SKIN: No rashes. NEUROLOGIC: No unilateral weakness or numbness. MEDICATIONS: Please see nurse's note, but he was taking Eliquis 5 mg twice a day and also Tikosyn twice a day, and also losartan. PHYSICAL EXAMINATION: GENERAL: This is a chronically ill-appearing elderly gentleman. VITAL SIGNS: Blood pressure 144/66, pulse rate 85 and regular. EYES: Sclerae are nonicteric. MOUTH: Mucous membranes are moist. LUNGS: Diffuse rhonchi and somewhat distant. CARDIAC: None. No murmur, rub, or gallop. ABDOMEN: Obese and nontender. EXTREMITIES: No clubbing or cyanosis. There is moderate edema. PERTINENT LABORATORY DATA: Hemoglobin is low as mentioned. Potassium was 3.3, ferritin low at 48.56 compatible with iron deficiency anemia. ASSESSMENT: 1. 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 2. Paroxysmal atrial fibrillation. 3. Scheduled for coiling procedure next week. 4. Severe chronic obstructive pulmonary disease. 5. Echocardiogram done in the summer revealed an ejection fraction of 55% to 60%. 6. Diastolic heart failure. 7. Hypokalemia. PLAN: 1. Replete potassium. 2. Talked with Dr. Karly, we can resume Eliquis at a lower dose, 2.5 mg twice a day. 3. Hopefully home soon. We could follow up in [place] for his other procedure. Ideally, he will ultimately be able to get off the Eliquis. Job ID: [id number]
--- NOTE | 2019-08-26 13:16 | PRG ---
DATE OF SERVICE: 08/26/2019 SUBJECTIVE: The patient is sitting up eating lunch. His shortness of breath is still the main problem, but better since transfusion. There is no overt bleeding such as melena or hematochezia. His stool has always been dark from iron. PHYSICAL EXAMINATION: VITAL SIGNS: Temperature is 98.2, blood pressure 110/54, and pulse is 72. GENERAL: He is alert, somewhat dyspneic, but in no distress. HEENT: Shows anicteric sclerae. Oropharynx is moist. NECK: Supple. CV: Shows normal S1 and S2. Regular rate and rhythm. CHEST: Shows breath sounds, poor flow. ABDOMEN: Soft, mildly protuberant, nontender. No distention. No tympany. He has active bowel sounds. EXTREMITIES: Show no edema. LABORATORY DATA: Hemoglobin 7.9, unchanged from yesterday. Ferritin 48, B12 of 635. Folic acid 12.2. ASSESSMENT: 1. Symptomatic anemia, better after transfusion. Anemia is from chronic anticoagulation. 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 Otherwise, esophagogastroduodenoscopies and colonoscopy have been negative within the last 12 months. 2. Paroxysmal atrial fibrillation. 3. Diastolic heart failure. 4. Severe chronic obstructive pulmonary disease. 5. Leakage around Watchman, plan for coiling procedure next week in [place]. RECOMMENDATION: 1. No indication for GI endoscopy. 2. Ultimately we will have to discontinue anticoagulation, hopefully the patient can get off Eliquis if the coiling around Watchman is successful, currently being placed on lower dose Eliquis 2.5 mg b.i.d. 3. Transfusion support to maintain hemoglobin above 7. 4. No other GI recommendation, please call if needed. Job ID: [id number]
--- NOTE | 2019-08-26 14:03 | PDOC.HOSPP ---
- Subjective Encounter Date: 08/26/19 Encounter Time: 07:40 Subjective: Pt seen for followup re: symptomatic anemia. Feels weak. - Objective Vital Signs & Weight: Vital Signs (12 hours) Temp Pulse Pulse Resp BP BP Pulse Ox 08/26/19 12:00 98.9 F 86 16 113/53 L 90 L 08/26/19 11:25 74 18 97 08/26/19 10:40 72 110/54 L 08/26/19 09:22 97 08/26/19 07:17 84 18 94 L 08/26/19 07:05 98.2 F 85 17 144/66 H 97 08/26/19 04:00 97.3 F L 78 22 H 99/55 L 93 L 08/26/19 02:29 75 16 94 L 08/26/19 02:16 90 L Weight Weight 193 lb 4.8 oz I&O: 08/25/19 08/26/19 08/27/19 06:59 06:59 06:59 Intake Total 600 390 Output Total 600 780 Balance 0 -390 Result Diagrams: 08/26/19 04:36 08/25/19 09:38 Additional Labs: Labs and MARs reviewed by me EKG Reviewed by me: Yes (Tele: a. luis eduardo) Hospitalist ROS - Review of Systems Constitutional: reports: weakness Cardiovascular: denies: chest pain, palpitations, orthopnea, paroxysmal noc. dyspnea, edema, light headedness Gastrointestinal: denies: nausea, vomiting, abdominal pain, diarrhea, constipation, melena, hematochezia - Medication Medications: Active Medications Generic Name Dose Route Start Last Admin Trade Name Freq PRN Reason Stop Dose Admin Acetaminophen 650 mg 08/24/19 18:49 08/25/19 21:17 Tylenol PO 650 mg Q4H PRN Administration Headache/Fever/Mild Pain (1-3) Albuterol/Ipratropium 3 ml 08/25/19 07:00 08/26/19 11:25 Duoneb NEB 3 ml [id number] SHORTY Administration Carvedilol 3.125 mg 08/24/19 21:00 08/26/19 09:23 Coreg PO 3.125 mg BID SHORTY Administration Dofetilide 0.125 mg 08/24/19 21:00 08/26/19 09:22 Tikosyn PO 0.125 mg BID SHORTY Administration Dutasteride 0.5 mg 08/25/19 09:00 08/26/19 09:23 Avodart PO 0.5 mg DAILY SHORTY Administration Furosemide 40 mg 08/25/19 06:00 08/26/19 05:46 Lasix SLOW IVP 40 mg 0600,1400 SHORTY Administration Gabapentin 100 mg 08/24/19 21:00 08/26/19 09:22 Neurontin PO 100 mg BID SHORTY Administration Lisinopril 2.5 mg 08/25/19 09:00 08/26/19 09:23 Zestril PO 2.5 mg DAILY SHORTY Administration Metolazone 2.5 mg 08/25/19 09:00 08/26/19 09:22 Zaroxolyn PO 2.5 mg DAILY SHORTY Administration Rosuvastatin Calcium 10 mg 08/24/19 21:00 08/25/19 21:11 Crestor PO 10 mg HS SHORTY Administration Tamsulosin HCl 0.4 mg 08/25/19 09:00 08/26/19 09:22 Flomax PO 0.4 mg DAILY SHORTY Administration - Exam General Appearance: NAD Eye: anicteric sclera ENT: moist mucosa Neck: supple, no JVD Heart: irregular Respiratory: CTAB Gastrointestinal: soft, non-tender Extremities: 2+ LE edema Musculoskeletal: no muscle wasting Psychiatric: normal affect, normal behavior Hosp A/P (1) Symptomatic anemia Code(s): D64.9 - ANEMIA, UNSPECIFIED Status: Acute (2) BPH (benign prostatic hyperplasia) Code(s): N40.0 - BENIGN PROSTATIC HYPERPLASIA WITHOUT LOWER URINRY TRACT SYMP Status: Chronic (3) HTN (hypertension) Code(s): I10 - ESSENTIAL (PRIMARY) HYPERTENSION Status: Chronic Qualifiers: Hypertension type: essential hypertension Qualified Code(s): I10 - Essential (primary) hypertension (4) BRAD (obstructive sleep apnea) Code(s): G47.33 - OBSTRUCTIVE SLEEP APNEA (ADULT) (PEDIATRIC) Status: Chronic (5) CKD (chronic kidney disease) stage 3, GFR 30-59 ml/min Code(s): N18.3 - CHRONIC KIDNEY DISEASE, STAGE 3 (MODERATE) Status: Chronic - Plan plan discussed w/ family, PT/OT, out of bed/ambulate Eliquis dose decreased. Monitor HH. Transfuse PRN. Monitor for heart failure exacerbation. BPH stable.
--- NOTE | 2019-08-26 14:12 | PQF ---
JUSTINO BESS LANI MOON [id number] CLINICAL DOCUMENTATION IMPROVEMENT CLARIFICATION FORM: ICD-10 Updated PLEASE DO AN ADDENDUM TO THE PROGRESS NOTE WITH ANY DOCUMENTATION UPDATES OR ADDITIONS AND CARRY THROUGH TO DC SUMMARY. THANK YOU. DATE: 08/26/19 ATTN: Dr. Moon Please exercise your independent, professional judgment in responding to the clarification form. Clinical indicators are provided on the bottom of this form for your review Please check appropriate box(s): Diastolic HEART FAILURE: A. ACUITY [ ] Acute [ ] Acute on Chronic [ ] Chronic [ ] Other diagnosis [ ] Unable to determine In addition, please specify: Present on Admission (POA): [ ] Yes [ ] No [ ] Unable to determine For continuity of documentation, please document condition throughout progress notes and discharge summary. Thank You. CLINICAL INDICATORS - SIGNS / SYMPTOMS / LABS / RESULTS AND LOCATION IN EMR 08/26 Dr. Odom: "SOB" Peripheral edema--> H&P([facility]): "2+ LE edema" Elevated BNP 301 08/24 per lab 08/26 DEVIN: "Diastolic heart failure; Echo done in the summer revealed EF of 55 -60%" RISKS FACTORS / RESULTS AND LOCATION IN EMR H&P([facility]): "HTN, Acute worsening of stage 3 CKD." TREATMENTS / RESULTS AND LOCATION IN EMR Administration of JOVANNA/BB--08/24 to date: coreg 3/125 mg po BID; 08/25 to date lisinopril 2.5 mg po daily per orders Cardiac monitoring / telemetry 08/24 orders IV and PO Diuretics--> 08/25 to date Lasix 40mg IV BID; metolazone 2.5 mg po daily 08/25 to date per orders Oxygen--> 2.5 L NC 08/24 to 3L NC 08/25 to date per orders Cardiology Consult 08/24 orders (This form is maintained as a part of the permanent medical record) 2014 [employer] All Rights Reserved Olinda Newton RN, BSN, CCDS [email or web address] [phone] [email or web address]
--- NOTE | 2019-08-26 14:25 | PQF ---
JUSTINO BESS JRLANI [id number] CLINICAL DOCUMENTATION IMPROVEMENT CLARIFICATION FORM: ICD-10 Updated PLEASE DO AN ADDENDUM TO THE PROGRESS NOTE WITH ANY DOCUMENTATION UPDATES OR ADDITIONS AND CARRY THROUGH TO DC SUMMARY. THANK YOU. DATE: 08/26/19 ATTN: Dr. Moon Please exercise your independent, professional judgment in responding to the clarification form. Clinical indicators are provided on the bottom of this form for your review Please check appropriate box(s): [ ] Acute On Chronic Respiratory Failure: [ ] with Hypoxia [ ] Chronic Respiratory Failure only [ ] with Hypoxia [ ] Hypoxia [ ] Other diagnosis [ ] Unable to determine In addition, please specify: Present on Admission (POA): [ ] Yes [ ] No [ ] Unable to determine For continuity of documentation, please document condition throughout progress notes and discharge summary. Thank You. CLINICAL INDICATORS - SIGNS / SYMPTOMS / LABS / RESULTS AND LOCATION IN MR 08/25 down to 92% on 4L NC per flowsheet per H&P(Donta): "90% on 4L NC" 08/25 (Solo): "He has labored breathing mildly" 08/24 ED(Martin): "moderate respiratory distress" RISK FACTORS / RESULTS AND LOCATION IN MR past medical history per 08/25 Mavis: "chronic respiratory failure on 3L NC " "chronic anemia, tranfusion dependent; severe COPD requiring oxygen at all times" per 08/25 (Solo) note TREATMENTS / RESULTS AND LOCATION IN MR Oxygen--> 08/24 2.5L NC to 08/25 3L NC per orders Monitoring of oxygenation status 08/24 per orders Diuresis--> lasix 40mg IV BID 08/25 to date per orders Acute Respiratory Failure: ABG pH < 7.35 or > 7.45; Decreased oxygen saturation (<90% room air or < 95% on oxygen); PCO2 > 50 mm Hg; PO2 < 60 mm Hg; Labored or rapid respirations ARDS: Dx Criteria [[place] ARDS]: Respiratory symptoms within one week of a known clinical insult (e.g. shock, infection, surgery, trauma) Bilateral opacities in CXR/Chest CT not due to CHF or fluid (This form is maintained as a part of the permanent medical record) 2014 [employer] All Rights Reserved Olinda Aman, RN, BSN, CCDS [email or web address]
[2019-08-26 14:39] LABS: Hemoglobin 8.7 g/dL (14.0-18.0)
[2019-08-26] MEDS: Apixaban 2.5 MG TAB PO SCH (20:26)
[2019-08-26] MEDS: Rosuvastatin 10 MG TAB PO SCH (20:26)
[2019-08-26 22:13] LABS: Hemoglobin 8.3 g/dL (14.0-18.0)
[2019-08-27 04:29] LABS: #Eosinphils 0.1 thou/uL (0.0-0.7); #Lymphocytes 1.4 thou/uL (1.20-3.40); #Monocytes 0.9 thou/uL (0.11-0.59); #Neutrophils 7.5 thou/uL (1.40-6.50); %Eosinophils 0.6 % (0.0-10.0); %Lymphocytes 13.7 % (21.0-51.0); %Monocytes 9.4 % (0.0-10.0); %Neutrophils 76.3 % (42.0-75.0); Hemoglobin 8.1 g/dL (14.0-18.0); Mean Corpuscular HGB CONC 31.2 g/dL (32.0-36.0); Mean Corpuscular Hemoglobin 26.6 pg (27.0-31.0); Mean Corpuscular Volume 85.4 fL (78.0-98.0); Mean Platelet Volume 7.7 fL (7.4-10.4); Platelet Count 274 thou/uL (130-400); Red Blood Cell (RBC) Count 3.05 mill/uL (4.70-6.10); White Blood Cell (WBC) Count 9.9 thou/uL (4.8-10.8)
[2019-08-27 04:49] LABS: Anion Gap 13 mmol/L (10-20); BUN (Urea Nitrogen) 34 mg/dL (8.4-25.7); Calc. Creatinine Clearance 44 mL/min (70-130); Calcium 8.4 mg/dL (7.8-10.44); Carbon Dioxide 27 mmol/L (23-31); Chloride 104 mmol/L (98-107); Estimated GFR-MDRD 40; Glucose 96 mg/dL (83-110); Potassium 3.3 mmol/L (3.5-5.1); Sodium 141 mmol/L (136-145)
[2019-08-27] MEDS: Furosemide 40 MG/4 ML VIAL SLOW IVP SCH ×2 (05:59→14:49)
--- NOTE | 2019-08-27 09:42 | PRG ---
DATE OF SERVICE: 08/27/2019 SUBJECTIVE: Mr. Mart feels better. Breathing has also improved. No chest pain. OBJECTIVE: VITAL SIGNS: Blood pressure 130/60, pulse 80. LUNGS: Distant. CARDIAC: Normal S1, normal S2. ABDOMEN: Soft and nontender. EXTREMITIES: There is no edema. LABORATORY DATA: Hemoglobin has gone from 8.3 to 8.1, hematocrit 27 to 26. ASSESSMENT: 1. Chronic gastrointestinal blood loss. 2. Atrial fibrillation. 3. Chronic obstructive pulmonary disease. PLAN: 1. He is on apixaban 2.5 mg twice a day. 2. Schedule for further treatment with a Watchman device in [place] next week. Job ID: [id number]
[2019-08-27] MEDS: Metolazone 2.5 MG TAB PO SCH (09:46)
[2019-08-27] MEDS: Lisinopril 2.5 MG TAB PO SCH (09:46)
[2019-08-27] MEDS: Tamsulosin HCl 0.4 MG CAP PO SCH (09:46)
[2019-08-27] MEDS: Carvedilol 3.125 MG TAB PO SCH ×2 (09:47→20:28)
[2019-08-27] MEDS: Dutasteride 0.5 MG CAP PO SCH (09:47)
[2019-08-27] MEDS: Apixaban 2.5 MG TAB PO SCH ×2 (09:47→20:27)
[2019-08-27] MEDS: Gabapentin 100 MG CAP PO SCH ×2 (09:47→20:28)
[2019-08-27] MEDS: Dofetilide 0.125 MG CAP PO SCH ×2 (09:47→20:27)
--- NOTE | 2019-08-27 15:06 | PDOC.HOSPP ---
- Subjective Encounter Date: 08/27/19 Encounter Time: 07:40 Subjective: Pt seen for followup re: symptomatic anemia. Feels slightly stronger. - Objective Vital Signs & Weight: Vital Signs (12 hours) Temp Pulse Pulse Pulse Pulse Resp BP 08/27/19 14:58 98.1 F 82 17 08/27/19 14:33 89 18 08/27/19 11:39 98.0 F 79 14 08/27/19 11:16 98.2 F 75 75 15 08/27/19 10:49 98.5 F 85 17 08/27/19 10:30 99 20 08/27/19 09:56 110 H 91 134/59 L 08/27/19 09:47 08/27/19 07:38 98.6 F 83 08/27/19 07:17 88 20 08/27/19 04:00 98.1 F 87 20 BP BP BP Pulse Ox Pulse Ox Pulse Ox 08/27/19 14:58 99/57 L 92 L 08/27/19 14:33 95 08/27/19 11:39 110/56 L 97 08/27/19 11:16 110/56 L 110/56 L 96 08/27/19 10:49 107/52 L 99 08/27/19 10:30 08/27/19 09:56 105/56 L 90 L 92 L 08/27/19 09:47 93 L 08/27/19 07:38 130/61 93 L 08/27/19 07:17 08/27/19 04:00 123/64 92 L Weight Weight 191 lb 6.4 oz I&O: 08/26/19 08/27/19 08/28/19 06:59 06:59 06:59 Intake Total 390 480 350 Output Total 780 1050 Balance -390 -570 350 Result Diagrams: 08/28/19 04:28 08/28/19 04:28 Additional Labs: Labs and MARs reviewed by me EKG Reviewed by me: Yes (Tele: philippe hoff) Hospitalist ROS - Review of Systems Cardiovascular: denies: chest pain, palpitations, orthopnea, paroxysmal noc. dyspnea, edema, light headedness Gastrointestinal: denies: nausea, vomiting, abdominal pain, diarrhea, constipation, melena, hematochezia - Medication Medications: Active Medications Generic Name Dose Route Start Last Admin Trade Name Freq PRN Reason Stop Dose Admin Acetaminophen 650 mg 08/24/19 18:49 08/25/19 21:17 Tylenol PO 650 mg Q4H PRN Administration Headache/Fever/Mild Pain (1-3) Albuterol/Ipratropium 3 ml 08/25/19 07:00 08/27/19 14:33 Duoneb NEB 3 ml [id number] SHORTY Administration Apixaban 2.5 mg 08/26/19 21:00 08/27/19 09:47 Eliquis PO 2.5 mg BID SHORTY Administration Carvedilol 3.125 mg 08/24/19 21:00 08/27/19 09:47 Coreg PO 3.125 mg BID SHORTY Administration Dofetilide 0.125 mg 08/24/19 21:00 08/27/19 09:47 Tikosyn PO 0.125 mg BID SHORTY Administration Dutasteride 0.5 mg 08/25/19 09:00 08/27/19 09:47 Avodart PO 0.5 mg DAILY SHORTY Administration Furosemide 40 mg 08/25/19 06:00 08/27/19 14:49 Lasix SLOW IVP 40 mg 0600,1400 SHORTY Administration Gabapentin 100 mg 08/24/19 21:00 08/27/19 09:47 Neurontin PO 100 mg BID SHORTY Administration Lisinopril 2.5 mg 08/25/19 09:00 08/27/19 09:46 Zestril PO 2.5 mg DAILY SHORTY Administration Metolazone 2.5 mg 08/25/19 09:00 08/27/19 09:46 Zaroxolyn PO 2.5 mg DAILY SHORTY Administration Rosuvastatin Calcium 10 mg 08/24/19 21:00 08/26/19 20:26 Crestor PO 10 mg HS SHORTY Administration Tamsulosin HCl 0.4 mg 08/25/19 09:00 08/27/19 09:46 Flomax PO 0.4 mg DAILY SHORTY Administration - Exam General Appearance: NAD Eye: anicteric sclera ENT: normocephalic atraumatic, moist mucosa Neck: no thyromegaly, no lymphadenopathy Heart: no rubs, irregular Respiratory: CTAB Gastrointestinal: soft, non-tender Extremities: 2+ LE edema Psychiatric: normal affect, normal behavior Hosp A/P (1) Symptomatic anemia Code(s): D64.9 - ANEMIA, UNSPECIFIED Status: Acute (2) BPH (benign prostatic hyperplasia) Code(s): N40.0 - BENIGN PROSTATIC HYPERPLASIA WITHOUT LOWER URINRY TRACT SYMP Status: Chronic (3) HTN (hypertension) Code(s): I10 - ESSENTIAL (PRIMARY) HYPERTENSION Status: Chronic Qualifiers: Hypertension type: essential hypertension Qualified Code(s): I10 - Essential (primary) hypertension (4) BRAD (obstructive sleep apnea) Code(s): G47.33 - OBSTRUCTIVE SLEEP APNEA (ADULT) (PEDIATRIC) Status: Chronic (5) CKD (chronic kidney disease) stage 3, GFR 30-59 ml/min Code(s): N18.3 - CHRONIC KIDNEY DISEASE, STAGE 3 (MODERATE) Status: Chronic (6) Chronic respiratory failure with hypoxia Code(s): J96.11 - CHRONIC RESPIRATORY FAILURE WITH HYPOXIA Status: Chronic Plan: Present on admission (7) Chronic diastolic heart failure, NYHA class 2 Code(s): I50.32 - CHRONIC DIASTOLIC (CONGESTIVE) HEART FAILURE Status: Chronic Plan: Present on admission - Plan plan discussed w/ family, PT/OT, out of bed/ambulate Eliquis dose decreased. Transfuse one unit pRBC for symptomatic anemia. BPH stable. May need Inpt Rehab vs SNU for physical deconditioning.
[2019-08-27] MEDS: Rosuvastatin 10 MG TAB PO SCH (20:28)
[2019-08-27] MEDS: Acetaminophen 325 MG TAB PO PRN (23:07)
[2019-08-28 04:44] LABS: #Eosinphils 0.1 thou/uL (0.0-0.7); #Lymphocytes 1.1 thou/uL (1.20-3.40); #Monocytes 0.8 thou/uL (0.11-0.59); #Neutrophils 5.8 thou/uL (1.40-6.50); %Basophils 0.4 % (0.0-1.0); %Eosinophils 0.7 % (0.0-10.0); %Lymphocytes 14.7 % (21.0-51.0); %Monocytes 9.7 % (0.0-10.0); %Neutrophils 74.6 % (42.0-75.0); Hemoglobin 8.4 g/dL (14.0-18.0); Mean Corpuscular HGB CONC 31.4 g/dL (32.0-36.0); Mean Corpuscular Hemoglobin 27.1 pg (27.0-31.0); Mean Corpuscular Volume 86.2 fL (78.0-98.0); Mean Platelet Volume 7.8 fL (7.4-10.4); Platelet Count 255 thou/uL (130-400); RBC Distribution Width 16.1 % (11.5-14.5); Red Blood Cell (RBC) Count 3.12 mill/uL (4.70-6.10); White Blood Cell (WBC) Count 7.7 thou/uL (4.8-10.8)
[2019-08-28 05:09] LABS: Anion Gap 15 mmol/L (10-20); BUN (Urea Nitrogen) 41 mg/dL (8.4-25.7); Calc. Creatinine Clearance 41 mL/min (70-130); Calcium 7.7 mg/dL (7.8-10.44); Carbon Dioxide 24 mmol/L (23-31); Chloride 102 mmol/L (98-107); Estimated GFR-MDRD 37; Glucose 90 mg/dL (83-110); Sodium 138 mmol/L (136-145)
[2019-08-28] MEDS: Furosemide 40 MG/4 ML VIAL SLOW IVP SCH ×2 (05:35→14:37)
--- NOTE | 2019-08-28 08:14 | PRG ---
DATE OF SERVICE: 08/28/2019 SUBJECTIVE: Mr. Mart is feeling okay today. He did require 1 unit of packed red blood cells yesterday. His blood counts are stable, but he did receive a unit of packed red cells. OBJECTIVE: VITAL SIGNS: Blood pressure 107/51, pulse 75. LUNGS: Clear. CARDIAC: Normal S1 and S2. ASSESSMENT: 1. Recurrent gastrointestinal bleeding. 2. Atrial fibrillation, paroxysmal. 3. Watchman in place, but there is a leak around the Watchman device. PLAN: 1. Received an unit of blood yesterday. 2. Consider keeping him until Saturday. Certainly do not want him to go home, have to be readmitted this weekend. He is scheduled for the further procedure in [place] for coiling of the Watchman perivalvular communication. Dr. Padilla available this weekend if needed. Job ID: [id number]
[2019-08-28] MEDS: Apixaban 2.5 MG TAB PO SCH ×2 (10:03→20:26)
[2019-08-28] MEDS: Dofetilide 0.125 MG CAP PO SCH ×2 (10:03→20:26)
[2019-08-28] MEDS: Lisinopril 2.5 MG TAB PO SCH (10:03)
[2019-08-28] MEDS: Metolazone 2.5 MG TAB PO SCH (10:04)
[2019-08-28] MEDS: Tamsulosin HCl 0.4 MG CAP PO SCH (10:05)
[2019-08-28] MEDS: Gabapentin 100 MG CAP PO SCH ×2 (10:05→20:26)
[2019-08-28] MEDS: Dutasteride 0.5 MG CAP PO SCH (10:05)
[2019-08-28] MEDS: Carvedilol 3.125 MG TAB PO SCH ×2 (10:05→20:26)
--- NOTE | 2019-08-28 15:40 | PDOC.HOSPP ---
- Subjective Encounter Date: 08/28/19 Encounter Time: 07:40 Subjective: Pt seen for followup re: anemia. Feels well, no complaints. - Objective Vital Signs & Weight: Vital Signs (12 hours) Temp Pulse Pulse Pulse Resp BP BP 08/28/19 14:53 08/28/19 14:47 80 16 08/28/19 12:50 08/28/19 11:30 97.6 F 80 20 08/28/19 11:10 84 16 08/28/19 10:44 90 87 140/65 119/56 L 08/28/19 10:03 94 08/28/19 08:15 08/28/19 08:14 78 16 08/28/19 08:00 97.6 F 84 18 BP Pulse Ox Pulse Ox Pulse Ox Pulse Ox 08/28/19 14:53 120/57 L 08/28/19 14:47 97 08/28/19 12:50 93 L 08/28/19 11:30 114/58 L 91 L 08/28/19 11:10 96 08/28/19 10:44 88 L 78 L 90 L 08/28/19 10:03 08/28/19 08:15 96 08/28/19 08:14 96 08/28/19 08:00 115/55 L 94 L Weight Weight 190 lb 14.4 oz I&O: 08/27/19 08/28/19 08/29/19 06:59 06:59 06:59 Intake Total 480 1610 600 Output Total 1050 1250 460 Balance -570 360 140 Result Diagrams: 08/28/19 04:28 08/28/19 04:28 Additional Labs: Labs and MARs reviewed by me EKG Reviewed by me: Yes (Tele: philippe hoff) Hospitalist ROS - Review of Systems Respiratory: reports: SOB with excertion Cardiovascular: denies: chest pain, palpitations, orthopnea, paroxysmal noc. dyspnea, edema, light headedness Gastrointestinal: denies: nausea, vomiting, abdominal pain, diarrhea, constipation, melena, hematochezia - Medication Medications: Active Medications Generic Name Dose Route Start Last Admin Trade Name Freq PRN Reason Stop Dose Admin Acetaminophen 650 mg 08/24/19 18:49 08/27/19 23:07 Tylenol PO 650 mg Q4H PRN Administration Headache/Fever/Mild Pain (1-3) Albuterol/Ipratropium 3 ml 08/25/19 07:00 08/28/19 14:47 Duoneb NEB 3 ml [id number] SHORTY Administration Carvedilol 3.125 mg 08/24/19 21:00 08/28/19 10:05 Coreg PO 3.125 mg BID SHORTY Administration Dofetilide 0.125 mg 08/24/19 21:00 08/28/19 10:03 Tikosyn PO 0.125 mg BID SHORTY Administration Dutasteride 0.5 mg 08/25/19 09:00 08/28/19 10:05 Avodart PO 0.5 mg DAILY SHORTY Administration Furosemide 40 mg 08/25/19 06:00 08/28/19 14:37 Lasix SLOW IVP 40 mg 0600,1400 SHORTY Administration Gabapentin 100 mg 08/24/19 21:00 08/28/19 10:05 Neurontin PO 100 mg BID SHORTY Administration Lisinopril 2.5 mg 08/25/19 09:00 08/28/19 10:03 Zestril PO 2.5 mg DAILY SHORTY Administration Metolazone 2.5 mg 08/25/19 09:00 08/28/19 10:04 Zaroxolyn PO 2.5 mg DAILY SHORTY Administration Rosuvastatin Calcium 10 mg 08/24/19 21:00 08/27/19 20:28 Crestor PO 10 mg HS SHORTY Administration Tamsulosin HCl 0.4 mg 08/25/19 09:00 08/28/19 10:05 Flomax PO 0.4 mg DAILY SHORTY Administration - Exam General Appearance: NAD Eye: anicteric sclera ENT: moist mucosa Neck: symmetric, no thyromegaly Heart: irregular Respiratory: CTAB, no ronchi Gastrointestinal: soft, non-tender Skin: no rashes Musculoskeletal: normal tone, normal strength Hosp A/P (1) Symptomatic anemia Code(s): D64.9 - ANEMIA, UNSPECIFIED Status: Acute (2) BPH (benign prostatic hyperplasia) Code(s): N40.0 - BENIGN PROSTATIC HYPERPLASIA WITHOUT LOWER URINRY TRACT SYMP Status: Chronic (3) HTN (hypertension) Code(s): I10 - ESSENTIAL (PRIMARY) HYPERTENSION Status: Chronic Qualifiers: Hypertension type: essential hypertension Qualified Code(s): I10 - Essential (primary) hypertension (4) BRAD (obstructive sleep apnea) Code(s): G47.33 - OBSTRUCTIVE SLEEP APNEA (ADULT) (PEDIATRIC) Status: Chronic (5) CKD (chronic kidney disease) stage 3, GFR 30-59 ml/min Code(s): N18.3 - CHRONIC KIDNEY DISEASE, STAGE 3 (MODERATE) Status: Chronic (6) Chronic respiratory failure with hypoxia Code(s): J96.11 - CHRONIC RESPIRATORY FAILURE WITH HYPOXIA Status: Chronic (7) Chronic diastolic heart failure, NYHA class 2 Code(s): I50.32 - CHRONIC DIASTOLIC (CONGESTIVE) HEART FAILURE Status: Chronic - Plan PT/OT, out of bed/ambulate Hemoglobin 8.4 today. Eliquis dose decreased. Replace potassium. BPH stable. Pt to go to [facility] on Saturday with family. If needs urgent transportation over the weekend by ambulance, dee dee Ayala, so the hospitalist at [facility] can be alerted.
[2019-08-28] MEDS ORDERED: Potassium Chloride 20 MEQ TAB PO SCH (15:45)
[2019-08-28] MEDS ORDERED: Calcium Gluc 4.6 MEQ/10 ML (100 MG/ML) SLOW IVP SCH (17:18)
[2019-08-28] MEDS: Rosuvastatin 10 MG TAB PO SCH (20:26)
--- NOTE | 2019-08-28 21:04 | CON ---
DATE OF CONSULTATION: 08/28/2019 REASON FOR CONSULTATION: Anticoagulation and Watchman management, atrial fibrillation. HISTORY OF PRESENT ILLNESS: Mr. Mart is a 78-year-old gentleman, well known to our practice for history of persistent atrial fibrillation. He underwent PVAI on 12/04, but had persistent atypical atrial flutter immediately following the ablation. He was discharged in rate controlled flutter. He also struggles with advanced COPD and diastolic heart failure with occasional exacerbations. One month post ablation, he had a viral illness, which caused heart failure exacerbation. He was admitted to the hospital. He remained in atypical flutter and at that time, he was started on Tikosyn, which chemically converted him to sinus rhythm. He began having bleeding and anemia issues during that hospital stay in December, but requires lifelong anticoagulation, given his left atrial appendage isolation during his November ablation prompting a Watchman placement for left atrial appendage closure. This was done in February 2019. A 45-day ANNAMARIA was done recently on 08/19/[address] Brandt and there was concern for residual leaks around the device similar to a prior ANNAMARIA in April. A 45-day ANNAMARIA was done in April that showed residual leak and then a repeat was performed on 08/19/2019 with concern for persistent leaking around the device. He is scheduled for an appointment on Saturday to discuss coil closure. However, has once again admitted in the hospital with significant weakness and anemia. He has required multiple blood transfusions during this hospital stay and EP consultation was requested to expedite coil closure to expedite getting him off Eliquis. We placed him on Eliquis 2.5 mg p.o. b.i.d. He is not having acute bleeding issues on this dose, but his hemoglobin continues to slightly decline on a daily basis. Mr. Mart is feeling fairly well today. He denies any heart racing, palpitations, chest pain, pressure, syncope, near syncope, stroke, or stroke-like symptoms. He does endorse significant weakness, chronic shortness of breath, low activity tolerance, and requiring home oxygen, now 24/7. REVIEW OF SYSTEMS: A 12-point review of systems is negative except that listed above in HPI. PAST MEDICAL HISTORY: 1. Persistent atrial fibrillation, status post cardioversion on 11/06/2018 and PVAI on 12/04/2018 with left atrial appendage isolation, currently on Tikosyn for arrhythmia suppression. 2. Chronic diastolic heart failure with preserved ejection fraction of 60% to 65%. 3. COPD. 4. Spontaneous pneumothorax in July 2018. 5. Chronic renal failure. 6. Hypertension. 7. CHADS-VASc score of 6, status post Watchman placed in February 2019 with residual michelle-device leak, which will require coil closure. 8. Anemia and contraindication to long-term anticoagulation with multiple blood transfusions. PAST SURGICAL HISTORY: Left knee surgery and cyst removal. ALLERGIES: ADHESIVE TAPE. HOME MEDICATIONS: 1. Crestor 10 mg at bedtime. 2. Ipratropium albuterol q.4 hours. 3. Breo Ellipta 1 puff daily. 4. Guaifenesin 200 mg t.i.d. 5. Tylenol as needed. 6. Prednisone 20 mg daily. 7. Testosterone cypionate 200 mg subcu q.10 days. 8. Lidoderm patch b.i.d. 9. Flomax 0.4 mg daily. 10. Sertraline 50 mg at bedtime. 11. Cozaar 100 mg daily. 12. DuoNeb q.4 hours. 13. Gabapentin 100 mg p.o. b.i.d. 14. Spiriva 18 mcg daily. 15. Daliresp 250 mcg daily. 16. Flonase daily. 17. Xanax 25 mcg b.i.d. 18. Pepcid 20 mg b.i.d. 19. Avodart 0.5 mg daily. 20. Tikosyn 125 mcg p.o. b.i.d. 21. Azithromycin 500 mg p.o. Saturday, Saturday, Saturday. 22. Eliquis 2.5 mg p.o. b.i.d. SOCIAL HISTORY: Negative for tobacco, but quit a few years ago. Occasional alcohol on a social basis, but no heavy intake. He is , lives with his . He has a supportive family. Denies illicit drug use. FAMILY HISTORY: Positive for CAD with father, age of onset is unknown. OBJECTIVE: VITAL SIGNS: Temperature 97.6, pulse 80, blood pressure 114/58, respirations 20, oxygen is 91% on 3 L via nasal cannula. GENERAL: The patient is alert and oriented. Speech is clear. Affect is appropriate. He is in no apparent distress, sitting up in the chair. NECK: Supple without jugular venous distention. No carotid bruit. No thyromegaly is noted. CHEST: Without wheezes, crackles, or rales. Bilateral excursion is diminished, and there are quiet breath sounds throughout. HEART: Rate is regularly regular. PMI is nondisplaced. ABDOMEN: Soft and nontender without palpable masses. Hepatojugular reflux is negative. EXTREMITIES: Warm and dry to touch without clubbing, cyanosis, or edema. NEUROLOGIC: Grossly intact and nonfocal. Gait was not assessed. DATABASE: Telemetry and EKG shows sinus rhythm. LABORATORY DATA: Hematology; daily hemoglobin and hematocrit. Hemoglobin is 8.4 today after 1 unit PRBC on 08/27 (hemoglobin 6.3 on admit). Chemistry; potassium 3.0, creatinine 1.79. TSH 1.32. IMPRESSION: 1. Acute anemia requiring blood transfusions. 2. Lifelong need for anticoagulation, but contraindicated with his anemia, prompting left atrial appendage closure with Watchman, but requires coil closure for michelle-device leak. 3. Persistent atrial arrhythmias, status post ablation in November 2018, currently maintaining sinus rhythm with Tikosyn. 4. Chronic renal disease. Creatinine 1.7. 5. Diastolic heart failure, currently compensated. 6. Chronic obstructive pulmonary disease, advanced. PLAN AND RECOMMENDATIONS: Mr. Mart is once again struggling with acute anemia issues further supporting his intolerance of chronic anticoagulation. He has a Watchman in place, but unfortunately has a michelle-device leak that persists and was found by recent ANNAMARIA. He was scheduled for an outpatient visit for scheduling a coil closure. Since he is hospitalized now, we will expedite these arrangements and are aiming for September 01, which can be performed at [facility] in [place]. He will remain on Eliquis 2.5 mg b.i.d., given his acute bleeding issues, the Watchman that is already in place in addition to his kidney function and advanced age. Today, we discussed the risks, benefits, and alternatives to coil closure. He understands the risks of bleeding at the groin site, pericardial bleeding, and possible need for chest tube in addition to stroke. He is very eager to proceed with a coil closure at the earliest convenience. This was discussed with Cardiology and also with his primary care team. In his weakened state, consider keeping him over the weekend to make sure no further acute bleeding episodes occur before he goes to [place] for coil closure. Regarding his atrial arrhythmias, we will have him continue with Tikosyn, which is keeping him in sinus rhythm and dosed appropriately, given his kidney function. Should the patient's condition deteriorate over the weekend or he began bleeding again, we could consider transferring him to [facility] to expedite his procedure next week without discharging him first. Thank you for allowing me to participate in the care of this patient. Job ID: [id number]
[2019-08-29] MEDS: Furosemide 40 MG/4 ML VIAL SLOW IVP SCH ×2 (05:51→14:44)
--- NOTE | 2019-08-29 08:31 | PDOC.EVN ---
Event Note - Event Note Event Note: Patient scheduled for coil closure at [facility] on Saturday at 2:30pm with Dr Kuhn. If becomes unstable/bleeding before DC on Saturday please initiate transfer to [facility] with hospitalists as admitting. Feel free to contact me if needed. Patient will need to be NPO after midnight on Saturday.
[2019-08-29] MEDS: Dutasteride 0.5 MG CAP PO SCH (08:41)
[2019-08-29] MEDS: Gabapentin 100 MG CAP PO SCH ×2 (08:41→20:17)
[2019-08-29] MEDS: Apixaban 2.5 MG TAB PO SCH ×2 (08:41→20:16)
[2019-08-29] MEDS: Metolazone 2.5 MG TAB PO SCH (08:42)
[2019-08-29] MEDS: Lisinopril 2.5 MG TAB PO SCH (08:42)
[2019-08-29] MEDS: Carvedilol 3.125 MG TAB PO SCH ×2 (08:42→20:16)
[2019-08-29] MEDS: Tamsulosin HCl 0.4 MG CAP PO SCH (08:42)
[2019-08-29] MEDS: Dofetilide 0.125 MG CAP PO SCH ×2 (08:42→20:16)
--- NOTE | 2019-08-29 11:28 | PDOC.HOSPP ---
- Subjective Encounter Date: 08/29/19 Encounter Time: 09:25 Subjective: Expresses no complaint.. - Objective Vital Signs & Weight: Vital Signs (12 hours) Temp Pulse Resp BP BP BP Pulse Ox 08/29/19 10:45 80 20 98 08/29/19 08:42 99 117/57 L 08/29/19 08:36 97.8 F 99 18 117/57 L 94 L 08/29/19 07:03 95 08/29/19 07:00 76 16 95 08/29/19 04:00 97.7 F 72 18 117/59 L 95 08/29/19 01:57 82 16 98 Weight Weight 190 lb 8 oz I&O: 08/28/19 08/29/19 08/30/19 06:59 06:59 06:59 Intake Total 1610 840 Output Total 1250 860 Balance 360 -20 Result Diagrams: 08/28/19 04:28 08/28/19 04:28 Hospitalist ROS - Medication Medications: Active Medications Generic Name Dose Route Start Last Admin Trade Name Richardq PRN Reason Stop Dose Admin Acetaminophen 650 mg 08/24/19 18:49 08/27/19 23:07 Tylenol PO 650 mg Q4H PRN Administration Headache/Fever/Mild Pain (1-3) Albuterol/Ipratropium 3 ml 08/25/19 07:00 08/29/19 10:45 Duoneb NEB 3 ml [id number] SHORTY Administration Apixaban 2.5 mg 08/28/19 21:00 08/29/19 08:41 Eliquis PO 2.5 mg BID SHORTY Administration Carvedilol 3.125 mg 08/24/19 21:00 08/29/19 08:42 Coreg PO 3.125 mg BID SHORTY Administration Dofetilide 0.125 mg 08/24/19 21:00 08/29/19 08:42 Tikosyn PO 0.125 mg BID SHORTY Administration Dutasteride 0.5 mg 08/25/19 09:00 08/29/19 08:41 Avodart PO 0.5 mg DAILY SHORTY Administration Furosemide 40 mg 08/25/19 06:00 08/29/19 05:51 Lasix SLOW IVP 40 mg 0600,1400 SHORTY Administration Gabapentin 100 mg 08/24/19 21:00 08/29/19 08:41 Neurontin PO 100 mg BID SHORTY Administration Lisinopril 2.5 mg 08/25/19 09:00 08/29/19 08:42 Zestril PO 2.5 mg DAILY SHORTY Administration Metolazone 2.5 mg 08/25/19 09:00 08/29/19 08:42 Zaroxolyn PO 2.5 mg DAILY SHORTY Administration Rosuvastatin Calcium 10 mg 08/24/19 21:00 08/28/19 20:26 Crestor PO 10 mg HS SHORTY Administration Tamsulosin HCl 0.4 mg 08/25/19 09:00 08/29/19 08:42 Flomax PO 0.4 mg DAILY SHORTY Administration - Exam General Appearance: NAD Neck: no JVD Heart: RRR Respiratory: wheezes Gastrointestinal: soft Extremities: 1+ LE edema Neurological: no focal deficits Psychiatric: normal affect Hosp A/P (1) Atrial fibrillation Code(s): I48.91 - UNSPECIFIED ATRIAL FIBRILLATION Status: Chronic Qualifiers: Atrial fibrillation type: unspecified Qualified Code(s): I48.91 - Unspecified atrial fibrillation (2) CKD (chronic kidney disease) stage 3, GFR 30-59 ml/min Code(s): N18.3 - CHRONIC KIDNEY DISEASE, STAGE 3 (MODERATE) Status: Chronic (3) HTN (hypertension) Code(s): I10 - ESSENTIAL (PRIMARY) HYPERTENSION Status: Chronic Qualifiers: Hypertension type: essential hypertension Qualified Code(s): I10 - Essential (primary) hypertension (4) Chronic respiratory failure with hypoxia Code(s): J96.11 - CHRONIC RESPIRATORY FAILURE WITH HYPOXIA Status: Chronic - Plan To [facility] on Saturday for michelle-watchman leak closure..
[2019-08-29 11:38] LABS: Hemoglobin 9.3 g/dL (14.0-18.0); Platelet Count 281 thou/uL (130-400)
[2019-08-29] MEDS: Acetaminophen 325 MG TAB PO PRN (14:48)
[2019-08-29] MEDS: Roflumilast [Daliresp] 500 MCG PO SCH (15:28)
--- NOTE | 2019-08-29 17:50 | PDOC.CPN ---
- Subjective Date: 08/29/19 Time: 17:48 Interval history: Doing well. Had borderline low BP this afternoon but felt normal. - Review of Systems General: denies: fever/chills, weight/appetite/sleep changes, night sweats, fatigue Respiratory: denies: cough, congestion, shortness of breath, exercise intolerance Cardiovascular: denies: chest pain, palpitation, edema, paroxysmal nocturnal dyspnea, orthopnea Gastrointestinal: denies: nausea, vomiting, diarrhea, constipation, abd pain, GI bleeding Musculoskeletal: denies: pain, tenderness, stiffness, swelling, arthritis/ arthralgias Neurological: denies: numbness, syncope, seizure, weakness - Objective Allergies/Adverse Reactions: Allergies Allergy/AdvReac Type Severity Reaction Status Date / Time adhesive Allergy Verified 08/18/19 12:28 Visit Medications: Current Medications Acetaminophen (Tylenol) 650 mg PO Q4H PRN PRN Reason: Headache/Fever/Mild Pain (1-3) Last Admin: 08/29/19 14:48 Dose: 650 mg Albuterol/Ipratropium (Duoneb) 3 ml NEB [id number] [facility] Last Admin: 08/29/19 14:36 Dose: 3 ml Apixaban (Eliquis) 2.5 mg PO BID [facility] Last Admin: 08/29/19 08:41 Dose: 2.5 mg Bisacodyl (Dulcolax) 10 mg ID DAILYPRN PRN PRN Reason: Constipation Carvedilol (Coreg) 3.125 mg PO BID [facility] Last Admin: 08/29/19 08:42 Dose: 3.125 mg Dofetilide (Tikosyn) 0.125 mg PO BID [facility] Last Admin: 08/29/19 08:42 Dose: 0.125 mg Dutasteride (Avodart) 0.5 mg PO DAILY [facility] Last Admin: 08/29/19 08:41 Dose: 0.5 mg Furosemide (Lasix) 40 mg SLOW IVP 0600,1400 [facility] Last Admin: 08/29/19 14:44 Dose: 40 mg Gabapentin (Neurontin) 100 mg PO BID [facility] Last Admin: 08/29/19 08:41 Dose: 100 mg Guaifenesin/Dextromethorphan (Robitussin Dm) 15 ml PO Q4H PRN PRN Reason: Cough Lisinopril (Zestril) 2.5 mg PO DAILY [facility] Last Admin: 08/29/19 08:42 Dose: 2.5 mg Metolazone (Zaroxolyn) 2.5 mg PO DAILY [facility] Last Admin: 08/29/19 08:42 Dose: 2.5 mg Ondansetron HCl (Zofran) 4 mg IVP Q6H PRN PRN Reason: Nausea/Vomiting Rosuvastatin Calcium (Crestor) 10 mg PO HS [facility] Last Admin: 08/28/19 20:26 Dose: 10 mg Senna/Docusate Sodium (Senokot S) 2 tab PO BID PRN PRN Reason: Constipation Tamsulosin HCl (Flomax) 0.4 mg PO DAILY [facility] Last Admin: 08/29/19 08:42 Dose: 0.4 mg Vital Signs & Weight: Vital Signs Temp Pulse Pulse Pulse Pulse Resp BP 08/29/19 17:07 08/29/19 16:04 97.3 F L 85 18 08/29/19 14:36 84 20 08/29/19 14:07 89 89 80 08/29/19 11:25 97.3 F L 114 H 18 08/29/19 10:45 80 20 08/29/19 08:42 99 117/57 L 08/29/19 08:36 97.8 F 99 18 08/29/19 07:03 08/29/19 07:00 76 16 BP BP BP BP Pulse Ox Pulse Ox 08/29/19 17:07 96/48 L 08/29/19 16:04 96/48 L 95 08/29/19 14:36 94 L 08/29/19 14:07 118/56 L 118/56 L 120/78 94 L 08/29/19 11:25 128/58 L 96 08/29/19 10:45 98 08/29/19 08:42 08/29/19 08:36 117/57 L 94 L 08/29/19 07:03 95 08/29/19 07:00 95 Weight 190 lb 8 oz - Physical Exam General: alert & oriented x3 HEENT: mucus membranes moist Neck: supple neck, midline trachea Cardiac: irregularly regular Lungs: clear to auscultation Neuro: grossly intact Abdomen: active bowel sounds, soft, non-tender Extremities: 1+ LE edema Skin: clear Musculoskeletal: no pain - Labs Result Diagrams: 08/29/19 11:22 08/28/19 04:28 Troponin/CKMB Troponin I Less than 0.010 ng/mL (< 0.028) 08/24/19 15:03 - Telemetry Supraventricular conduction: atrial fibrillation - Assessment/Plan Assessment/Plan: 1. Recurrent GI bleeding 2. Paroxysmal afib 3. Watchman in place with leak. PLAN: - To [facility] next week for coiling of watchman device.
[2019-08-29] MEDS: Rosuvastatin 10 MG TAB PO SCH (20:17)
[2019-08-30] MEDS: Furosemide 40 MG/4 ML VIAL SLOW IVP SCH ×2 (06:12→13:22)
[2019-08-30] MEDS: Dofetilide 0.125 MG CAP PO SCH ×2 (08:45→20:32)
[2019-08-30] MEDS: Lisinopril 2.5 MG TAB PO SCH (08:45)
[2019-08-30] MEDS: Metolazone 2.5 MG TAB PO SCH (08:45)
[2019-08-30] MEDS: Carvedilol 3.125 MG TAB PO SCH ×2 (08:45→20:32)
[2019-08-30] MEDS: Dutasteride 0.5 MG CAP PO SCH (08:45)
[2019-08-30] MEDS: Apixaban 2.5 MG TAB PO SCH ×2 (08:45→20:31)
[2019-08-30] MEDS: Tamsulosin HCl 0.4 MG CAP PO SCH (08:46)
[2019-08-30] MEDS: Gabapentin 100 MG CAP PO SCH ×2 (08:46→20:31)
--- NOTE | 2019-08-30 09:59 | PDOC.HOSPP ---
- Subjective Encounter Date: 08/30/19 Encounter Time: 10:10 Subjective: No new complaint.... - Objective Vital Signs & Weight: Vital Signs (12 hours) Temp Pulse Resp BP Pulse Ox 08/30/19 07:40 97.7 F 74 18 112/57 L 94 L 08/30/19 07:05 95 08/30/19 06:54 74 16 94 L 08/30/19 04:00 97.6 F 69 16 126/61 98 08/30/19 00:00 102/73 08/29/19 23:53 16 Weight Weight 192 lb 4.8 oz I&O: 08/29/19 08/30/19 08/31/19 06:59 06:59 06:59 Intake Total 840 1170 Output Total 860 1150 Balance -20 20 Result Diagrams: 08/29/19 11:22 08/28/19 04:28 Hospitalist ROS - Medication Medications: Active Medications Generic Name Dose Route Start Last Admin Trade Name Freq PRN Reason Stop Dose Admin Acetaminophen 650 mg 08/24/19 18:49 08/29/19 14:48 Tylenol PO 650 mg Q4H PRN Administration Headache/Fever/Mild Pain (1-3) Albuterol/Ipratropium 3 ml 08/25/19 07:00 08/30/19 06:54 Duoneb NEB 3 ml [id number] [facility] Administration Apixaban 2.5 mg 08/28/19 21:00 08/30/19 08:45 Eliquis PO 2.5 mg BID [facility] Administration Carvedilol 3.125 mg 08/24/19 21:00 08/30/19 08:45 Coreg PO 3.125 mg BID [facility] Administration Dofetilide 0.125 mg 08/24/19 21:00 08/30/19 08:45 Tikosyn PO 0.125 mg BID [facility] Administration Dutasteride 0.5 mg 08/25/19 09:00 08/30/19 08:45 Avodart PO 0.5 mg DAILY [facility] Administration Furosemide 40 mg 08/25/19 06:00 08/30/19 06:12 Lasix SLOW IVP 40 mg 0600,1400 [facility] Administration Gabapentin 100 mg 08/24/19 21:00 08/30/19 08:46 Neurontin PO 100 mg BID [facility] Administration Lisinopril 2.5 mg 08/25/19 09:00 08/30/19 08:45 Zestril PO 2.5 mg DAILY [facility] Administration Metolazone 2.5 mg 08/25/19 09:00 08/30/19 08:45 Zaroxolyn PO 2.5 mg DAILY [facility] Administration Rosuvastatin Calcium 10 mg 08/24/19 21:00 08/29/19 20:17 Crestor PO 10 mg HS [facility] Administration Tamsulosin HCl 0.4 mg 08/25/19 09:00 08/30/19 08:46 Flomax PO 0.4 mg DAILY [facility] Administration - Exam General Appearance: NAD Neck: no JVD Heart: irregular Respiratory: CTAB Gastrointestinal: soft Extremities: 1+ LE edema Neurological: no focal deficits Psychiatric: normal affect Hosp A/P (1) Atrial fibrillation Code(s): I48.91 - UNSPECIFIED ATRIAL FIBRILLATION Status: Chronic Qualifiers: Atrial fibrillation type: unspecified Qualified Code(s): I48.91 - Unspecified atrial fibrillation (2) CKD (chronic kidney disease) stage 3, GFR 30-59 ml/min Code(s): N18.3 - CHRONIC KIDNEY DISEASE, STAGE 3 (MODERATE) Status: Chronic (3) HTN (hypertension) Code(s): I10 - ESSENTIAL (PRIMARY) HYPERTENSION Status: Chronic Qualifiers: Hypertension type: essential hypertension Qualified Code(s): I10 - Essential (primary) hypertension (4) Chronic respiratory failure with hypoxia Code(s): J96.11 - CHRONIC RESPIRATORY FAILURE WITH HYPOXIA Status: Chronic - Plan To [facility] on Saturday for michelle-watchman leak closure..Stable..
--- NOTE | 2019-08-30 18:27 | PDOC.CPN ---
- Subjective Date: 08/30/19 Time: 18:26 Interval history: No new issues. - Review of Systems General: denies: fever/chills, weight/appetite/sleep changes, night sweats, fatigue Respiratory: denies: cough, congestion, shortness of breath, exercise intolerance Cardiovascular: denies: chest pain, palpitation, edema, paroxysmal nocturnal dyspnea, orthopnea Gastrointestinal: denies: nausea, vomiting, diarrhea, constipation, abd pain, GI bleeding Musculoskeletal: denies: pain, tenderness, stiffness, swelling, arthritis/ arthralgias Neurological: denies: numbness, syncope, seizure, weakness - Objective Allergies/Adverse Reactions: Allergies Allergy/AdvReac Type Severity Reaction Status Date / Time adhesive Allergy Verified 08/18/19 12:28 Visit Medications: Current Medications Acetaminophen (Tylenol) 650 mg PO Q4H PRN PRN Reason: Headache/Fever/Mild Pain (1-3) Last Admin: 08/29/19 14:48 Dose: 650 mg Albuterol/Ipratropium (Duoneb) 3 ml NEB [id number] [facility] Last Admin: 08/30/19 14:51 Dose: 3 ml Apixaban (Eliquis) 2.5 mg PO BID [facility] Last Admin: 08/30/19 08:45 Dose: 2.5 mg Bisacodyl (Dulcolax) 10 mg [place] DAILYPRN PRN PRN Reason: Constipation Carvedilol (Coreg) 3.125 mg PO BID [facility] Last Admin: 08/30/19 08:45 Dose: 3.125 mg Dofetilide (Tikosyn) 0.125 mg PO BID [facility] Last Admin: 08/30/19 08:45 Dose: 0.125 mg Dutasteride (Avodart) 0.5 mg PO DAILY [facility] Last Admin: 08/30/19 08:45 Dose: 0.5 mg Furosemide (Lasix) 40 mg SLOW IVP 0600,1400 [facility] Last Admin: 08/30/19 13:22 Dose: 40 mg Gabapentin (Neurontin) 100 mg PO BID [facility] Last Admin: 08/30/19 08:46 Dose: 100 mg Guaifenesin/Dextromethorphan (Robitussin Dm) 15 ml PO Q4H PRN PRN Reason: Cough Lisinopril (Zestril) 2.5 mg PO DAILY [facility] Last Admin: 08/30/19 08:45 Dose: 2.5 mg Metolazone (Zaroxolyn) 2.5 mg PO DAILY [facility] Last Admin: 08/30/19 08:45 Dose: 2.5 mg Ondansetron HCl (Zofran) 4 mg IVP Q6H PRN PRN Reason: Nausea/Vomiting Rosuvastatin Calcium (Crestor) 10 mg PO HS [facility] Last Admin: 08/29/19 20:17 Dose: 10 mg Senna/Docusate Sodium (Senokot S) 2 tab PO BID PRN PRN Reason: Constipation Tamsulosin HCl (Flomax) 0.4 mg PO DAILY [facility] Last Admin: 08/30/19 08:46 Dose: 0.4 mg Vital Signs & Weight: Vital Signs Temp Pulse Resp BP BP Pulse Ox 08/30/19 15:45 97.6 F 83 20 116/56 L 94 L 08/30/19 14:51 72 20 95 08/30/19 13:20 78 115/56 L 08/30/19 11:24 98.2 F 77 18 101/57 L 95 08/30/19 10:57 73 16 94 L 08/30/19 07:40 97.7 F 74 18 112/57 L 94 L 08/30/19 07:05 95 08/30/19 06:54 74 16 94 L Weight 192 lb 4.8 oz - Physical Exam General: alert & oriented x3 HEENT: mucus membranes moist Neck: supple neck Cardiac: irregularly regular Lungs: clear to auscultation Neuro: grossly intact Abdomen: active bowel sounds, soft, non-tender Extremities: no edema Skin: clear Musculoskeletal: no pain - Labs Result Diagrams: 08/29/19 11:22 08/28/19 04:28 Troponin/CKMB Troponin I Less than 0.010 ng/mL (< 0.028) 08/24/19 15:03 - Telemetry Supraventricular conduction: atrial fibrillation - Assessment/Plan Assessment/Plan: 1. Recurrent GI bleeding 2. Paroxysmal afib 3. Watchman in place with leak. PLAN: - To [facility] this coming week for coiling of watchman device.
[2019-08-30] MEDS: Rosuvastatin 10 MG TAB PO SCH (20:31)
[2019-08-30] MEDS: Acetaminophen 325 MG TAB PO PRN (20:33)
[2019-08-31] MEDS: Furosemide 40 MG/4 ML VIAL SLOW IVP SCH (06:09)
[2019-08-31] MEDS: Apixaban 2.5 MG TAB PO SCH (07:33)
[2019-08-31] MEDS: Dofetilide 0.125 MG CAP PO SCH (07:35)
[2019-08-31] MEDS: Tamsulosin HCl 0.4 MG CAP PO SCH (07:36)
[2019-08-31] MEDS: Gabapentin 100 MG CAP PO SCH (07:36)
[2019-08-31] MEDS: Dutasteride 0.5 MG CAP PO SCH (07:36)
[2019-08-31] MEDS: Carvedilol 3.125 MG TAB PO SCH (07:36)
[2019-08-31] MEDS: Metolazone 2.5 MG TAB PO SCH (07:36)
[2019-08-31] MEDS: Lisinopril 2.5 MG TAB PO SCH (07:36)
[2019-08-31 08:09] VITALS: BP 118/57; TEMP 97.7
--- NOTE | 2019-08-31 19:31 | DIS ---
DATE OF ADMISSION: 08/24/2019 DATE OF DISCHARGE: 08/31/2019 PRIMARY CARE PROVIDER: Dr. Gabriel Mary. DISCHARGE DIAGNOSES: 1. Symptomatic anemia. 2. Chronic diastolic heart failure, NYHA class 2. 3. Hypokalemia. CONDITION OF PATIENT ON THE DAY OF DISCHARGE: Stable. I assessed Mr. Mart on the day of discharge. He denies any chest pain or shortness of breath. Vital signs are stable. S1 and S2 are heard, regular. Lungs are clear to auscultation bilaterally. POST-DISCHARGE FOLLOWUP: With Cardiology Dr. Gonzalez in 2-3 weeks, with primary care provider in 1 week's time. CONSULTATIONS DURING THIS HOSPITALIZATION: 1. Cardiology, Dr. Gonzalez. 2. Gastroenterology, Dr. Banda. 3. Electrophysiology, Dr. Brandt. DISCHARGE MEDICATIONS: No change was made to his pre-admission home medications as dictated by Dr. Caban in his history and physical note dated 08/24/2019. HOSPITAL COURSE: Mr. Mart is a pleasant 78-year-old gentleman, who was admitted to [facility] on 08/24/2019, for symptomatic anemia. He was seen by Gastroenterology, Cardiology, and Electrophysiology Services. He received packed RBC transfusion with improvement in his symptoms as well as anemia. He received a total of 3 units of packed RBCs. He has been advised to continue Eliquis for now. He has an appointment at [facility] on 08/31/2019, for coil closure at 2:30 pm. He is being discharged so that he can go for the procedure. Many thanks for allowing me to participate in your patient's care. Please feel free to contact me with any questions or concerns. DISCHARGE DESTINATION: Home. TIME SPENT: Total amount of time spent coordinating this discharge: 33 minutes. Job ID: [id number]
== END 2019-08-31 07:55 | disposition home or self-care (01) | DRG 812 ==
LOC: ERS 14:08 → T4-B 17:49 → 2NO 19:32
PROVIDERS: ADMIT Internal Medicine; ATTEND Internal Medicine
PROC: 5A09357 Assistance with Respiratory Ventilation, Less than 24 Consecutive Hours, Continuous Positive Airway Pressure (ICD-10-PCS; principal; 2019-08-24)
PROC: 30233N1 Transfusion of Nonautologous Red Blood Cells into Peripheral Vein, Percutaneous Approach (ICD-10-PCS; 2019-08-24)
DX: D62 Acute posthemorrhagic anemia (principal); I13.0 Hypertensive heart and chronic kidney disease with heart failure and stage 1 through stage 4 chronic kidney disease, or unspecified chronic kidney disease; N17.9 Acute kidney failure, unspecified; I50.32 Chronic diastolic (congestive) heart failure; J96.11 Chronic respiratory failure with hypoxia; I48.19 Other persistent atrial fibrillation; J44.9 Chronic obstructive pulmonary disease, unspecified; G47.33 Obstructive sleep apnea (adult) (pediatric); D63.1 Anemia in chronic kidney disease; N40.0 Benign prostatic hyperplasia without lower urinary tract symptoms; N18.3 Chronic kidney disease, stage 3 (moderate); E66.9 Obesity, unspecified; E87.6 Hypokalemia; Z99.81 Dependence on supplemental oxygen; Z87.891 Personal history of nicotine dependence; Z91.048 Other nonmedicinal substance allergy status; Z79.01 Long term (current) use of anticoagulants; Z79.52 Long term (current) use of systemic steroids; Z79.899 Other long term (current) drug therapy; Z79.51 Long term (current) use of inhaled steroids; Z68.28 Body mass index [BMI] 28.0-28.9, adult
CPT/HCPCS: 36415; 36416; 36430; 71045; 80048; 80053; 82533; 82607; 82728; 82746; 83540; 83735; 83880; 84443; 84484; 85014; 85018; 85025; 85049; 85610; 86850; 86900; 86901; 93005; 93798; 94640; 94660; 96374; J1940; J7620; J8499; P9016

== ENCOUNTER 2019-09-21 09:51 | Inpatient (IN) | payer MEDICARE, BC ==
--- NOTE | 2019-09-21 10:47 | RAD ---
XR Chest 1 View Portable HISTORY: Dyspnea COMPARISON: 09/09/2019 FINDINGS: The heart size is normal. The aorta is tortuous. Chronic changes in the lung zhou are aga in seen. A small left pleural effusion is seen with adjacent atelectatic change. There are left lower rib fractures.
[2019-09-21 10:58] LABS: #Eosinphils 0.1 thou/uL (0.0-0.7); #Monocytes 0.8 thou/uL (0.11-0.59); #Neutrophils 12.1 thou/uL (1.40-6.50); %Basophils 0.2 % (0.0-1.0); %Eosinophils 0.4 % (0.0-10.0); %Lymphocytes 7.3 % (21.0-51.0); %Monocytes 5.8 % (0.0-10.0); %Neutrophils 86.3 % (42.0-75.0); Hemoglobin 8.1 g/dL (14.0-18.0); Mean Corpuscular Hemoglobin 26.5 pg (27.0-31.0); Mean Corpuscular Volume 85.7 fL (78.0-98.0); Mean Platelet Volume 7.4 fL (7.4-10.4); Platelet Count 577 thou/uL (130-400); RBC Distribution Width 16.7 % (11.5-14.5); Red Blood Cell (RBC) Count 3.05 mill/uL (4.70-6.10)
[2019-09-21 11:19] LABS: ALT (SGPT) 14 U/L (8-55); AST (SGOT) 13 U/L (5-34); Albumin 3.5 g/dL (3.4-4.8); Alkaline Phosphatase 104 U/L (40-110); Anion Gap 13 mmol/L (10-20); BUN (Urea Nitrogen) 31 mg/dL (8.4-25.7); Bilirubin, Total 0.7 mg/dL (0.2-1.2); Calc. Creatinine Clearance 0 mL/min (70-130); Calcium 8.7 mg/dL (7.8-10.44); Carbon Dioxide 26 mmol/L (23-31); Chloride 108 mmol/L (98-107); Estimated GFR-MDRD 35; Globulin 2.3 g/dL (2.4-3.5); Glucose 88 mg/dL (83-110); Potassium 3.8 mmol/L (3.5-5.1); Protein, Total 5.8 g/dL (5.8-8.1); Sodium 143 mmol/L (136-145)
[2019-09-21 11:42] LABS: Hypochromia SLIGHT = 6-15 cells (100X) (0-5/hpf); MDiff Complete? YES; Ovalocytes SLIGHT = 2-5 cells (100X) (0-1/hpf); Platelet Morphology Comment Appears Increased; Polychromasia MODERATE = 3-4 cells (100X) (0-2/hpf); Schistocytes SLIGHT = 2-5 cells (100X) (0-1/hpf); Tear Drops SLIGHT = 2-5 cells (100X) (0-1/hpf)
[2019-09-21] MEDS ORDERED: Senokot S 8.6-50 MG TAB PO PRN (14:13)
[2019-09-21] MEDS ORDERED: Guaifenesin DM 100-10/5 ML UDCUP PO PRN (14:13)
[2019-09-21] MEDS ORDERED: Bisacodyl 10 MG SUPP PR PRN (14:13)
[2019-09-21 16:43] LABS: Troponin I Less than 0.010 ng/mL (< 0.028)
[2019-09-21] MEDS: Sodium Chloride 0.9% 1,000 ML IV SCH (18:03)
[2019-09-21] MEDS: Acetaminophen 325 MG TAB PO PRN (18:04)
[2019-09-21] MEDS ORDERED: Morphine 2 MG/ML SYRINGE SLOW IVP PRN (18:27)
[2019-09-21] MEDS ORDERED: HYDROcodone/Acetaminophen 5/325 mg Tablet PO PRN (18:27)
[2019-09-21] MEDS: Mometasone/Formoterol 120 PUFF INHALER INH SCH (18:48)
[2019-09-21] MEDS: Rosuvastatin 10 MG TAB PO SCH (20:11)
[2019-09-21] MEDS: Dofetilide 0.125 MG CAP PO SCH (20:11)
[2019-09-21] MEDS: Gabapentin 100 MG CAP PO SCH (20:12)
[2019-09-21] MEDS: Apixaban 2.5 MG TAB PO SCH (20:17)
[2019-09-21] MEDS: ALPRAZolam 0.25 MG TAB PO SCH ×2 (20:17→20:41)
[2019-09-21] MEDS: HYDROcodone/Acetaminophen 5/325 mg Tablet PO PRN (20:28)
--- NOTE | 2019-09-21 20:41 | HP ---
REASON FOR ADMISSION: Acute on chronic anemia, NNEKA, moderate dehydration. HISTORY OF PRESENTING ILLNESS: The patient gives history of feeling very weak and sleepy all the time. This has been ongoing for last 1 week now. He feels this way when his hemoglobin is low and has had prior transfusions for the same. He has had loss of appetite as well. He fell on the and hurt his ribs and since then has had limited mobility in the house as well. He has shortness of breath on minimal exertion too. No complaints of chest pain. He has chronic cough, sometimes expectorates white sputum. No fever at home. No complaints of palpitations or PND. PAST MEDICAL AND SURGICAL HISTORY: History of TAVR with recent coiling done for leakage around it; history of GI bleed due to the patient being on Eliquis; chronic kidney disease, stage 3; history of obstructive sleep apnea, on CPAP, history of multiple transfusions, the last transfusion he got was 3 units of packed cells in the week of 30 August; hypertension; severe COPD; chronic respiratory failure, on 3 L nasal cannula at home; chronic AFib with prior ablations; left knee surgery. PERSONAL HISTORY: Quit smoking more than 10 years ago, but has smoked for nearly 48 years, 2 packs a day. Does not abuse alcohol or drugs. Lives with his . He normally ambulates with a walker. FAMILY HISTORY: Mother at the age of 53 years. She had history of coronary artery disease. Father at the age of 75. He has had history of stroke and coronary artery disease. CODE STATUS: Full. Power of attorney at law is his . CURRENT MEDICATION: 1. Eliquis 2.5 mg twice daily. 2. Zithromax 500 mg on Saturday, Saturday, and Saturday. 3. Pepcid 20 mg p.o. at bedtime. 4. Breo Ellipta inhaler daily. 5. Gabapentin 100 mg twice daily. 6. Mucinex 200 mg 3 times daily. 7. DuoNeb q.4 hourly. 8. Lidocaine 5% transdermal patch daily. 9. Daliresp 250 mcg daily. 10. Sertraline 50 mg at bedtime. 11. Testosterone 200 mg subcu q.10 days. 12. Spiriva inhaler 18 mcg daily. 13. Tikosyn 0.125 mg twice daily. 14. Avodart 0.5 mg daily. 15. Fluticasone nasal spray daily. 16. Cozaar 100 mg daily. 17. Crestor 10 mg at bedtime. 18. Flomax 0.4 mg daily. 19. Xanax 0.25 mg twice daily. ALLERGIES: ADHESIVES. REVIEW OF SYSTEMS: CONSTITUTIONAL: Negative for weight loss or gain, ability to conduct usual activities. SKIN: Negative for rash, itching. EYES: Negative for double vision, pain. ENT/MOUTH: Negative for nose bleeding, neck stiffness, pain, tenderness. CARDIOVASCULAR: Negative for palpitations, dyspnea on exertion, orthopnea. RESPIRATORY: Negative for shortness of breath, wheezing, cough, hemoptysis, fever or night sweats. GASTROINTESTINAL: Negative for poor appetite, abdominal pain, heartburn, nausea , vomiting, constipation, or diarrhea. GENITOURINARY: Negative for urgency, frequency, dysuria, nocturia. MUSCULOSKELETAL: Negative for pain, swelling. NEUROLOGIC/PSYCHIATRIC: Negative for anxiety, depression. ALLERGY/IMMUNOLOGIC: Negative for skin rash, bleeding tendency. PHYSICAL EXAMINATION: GENERAL: The patient is a 78-year-old male who is currently not in any acute distress. VITAL SIGNS: Blood pressure 106/54, pulse 88 per minute, respiratory rate is 20 per minute, temperature 98.1 degrees Fahrenheit, saturating 97% on 3 L nasal cannula. NECK: Supple. No elevated JVD. HEENT: Eyes; extraocular muscles intact. Pupils reacting to light. Oral cavity; mucous membranes are dry. No exudates or congestion. CARDIOVASCULAR SYSTEM: S1 and S2 heard. Regular rhythm. RESPIRATORY SYSTEM: Air entry 1+ bilateral. Scattered rhonchi plus. No rales or wheezes. ABDOMEN: Soft. Bowel sounds heard. No tenderness, rigidity, or guarding. EXTREMITIES: 1+ peripheral edema. No calf tenderness. VASCULAR SYSTEM: Peripheral pulses 1+ bilateral. No ischemic ulcerations or gangrene. CENTRAL NERVOUS SYSTEM: No gross focal deficits noted. The patient is alert, awake, and oriented well. PSYCHIATRIC SYSTEM: The patient's mood is euthymic. No hallucinations or delusions. IMAGING STUDIES: Chest x-ray done shows small left pleural effusion. There are left lower rib fractures. The chronic changes in the lung zhou when compared to prior x-ray done on 09/09/2019, which is stable. EKG done shows sinus tach at 105 beats per minute. There is poor R-wave progression. Q-wave seen in lead 3, aVF. LABORATORY DATA: White count of 14, H and H of 8 and 26, platelet count is 577 with 86% neutrophils, MCV is 85. BUN 31, creatinine 1.8, serum bicarb 26. Troponin x2 negative. Liver enzymes within normal limits. Albumin 3.5. CLINICAL IMPRESSION AND PLAN: The patient will be admitted to telemetry for acute kidney injury, moderate dehydration, possible acute blood loss anemia. He currently has margination with dehydration and the plan was to see if his H and H drops in the morning for transfusion, but ER physician has already ordered 2 units of packed cell and the 2nd unit is currently getting transfused. He has had prior history of gastrointestinal bleed due to him being on Eliquis with his Watchman device leaking. This has been corrected with coiling, done recently at [place]. We will obtain cardiology consultation with Dr. Gonzalez, his youth officer, to see if he can come off Eliquis. We will continue his Zithromax daily, Xanax, Tikosyn, Avodart, gabapentin, [place], DuoNeb, lidocaine patch, Dulera inhaler, Crestor, Zoloft, Flomax, and testosterone shots which is due today. He will be on gentle hydration with normal saline at 70 mL/h for a total of 2 bags. The patient has severe chronic obstructive pulmonary disease and is on home oxygen. I have discussed code status with him and he wants to be a full code for now. If the patient were to get volume overloaded with blood transfusion, he will likely need Lasix IV. Mr. Mart has multiple medical issues and has decreased functional status over the years. We will closely monitor him on telemetry. Job ID: [id number] [facility]
[2019-09-22 05:13] LABS: Anion Gap 12 mmol/L (10-20); BUN (Urea Nitrogen) 27 mg/dL (8.4-25.7); Calc. Creatinine Clearance 47 mL/min (70-130); Calcium 7.9 mg/dL (7.8-10.44); Carbon Dioxide 23 mmol/L (23-31); Chloride 109 mmol/L (98-107); Estimated GFR-MDRD 45; Glucose 81 mg/dL (83-110); Potassium 3.2 mmol/L (3.5-5.1); Sodium 141 mmol/L (136-145)
[2019-09-22 05:16] LABS: #Eosinphils 0.1 thou/uL (0.0-0.7); #Lymphocytes 1.2 thou/uL (1.20-3.40); #Monocytes 0.8 thou/uL (0.11-0.59); #Neutrophils 9.1 thou/uL (1.40-6.50); %Basophils 0.2 % (0.0-1.0); %Eosinophils 0.5 % (0.0-10.0); %Monocytes 7.2 % (0.0-10.0); %Neutrophils 81.1 % (42.0-75.0); Hemoglobin 8.2 g/dL (14.0-18.0); Mean Corpuscular HGB CONC 31.4 g/dL (32.0-36.0); Mean Corpuscular Hemoglobin 26.6 pg (27.0-31.0); Mean Corpuscular Volume 84.7 fL (78.0-98.0); Mean Platelet Volume 7.5 fL (7.4-10.4); Platelet Count 445 thou/uL (130-400); RBC Distribution Width 16.1 % (11.5-14.5); Red Blood Cell (RBC) Count 3.09 mill/uL (4.70-6.10); White Blood Cell (WBC) Count 11.3 thou/uL (4.8-10.8)
[2019-09-22] MEDS: Sodium Chloride 0.9% 1,000 ML IV SCH (06:34)
[2019-09-22] MEDS: Mometasone/Formoterol 120 PUFF INHALER INH SCH ×2 (06:55→18:55)
[2019-09-22 08:23] LABS: Iron 20 ug/dL (65-175); Iron Binding Capacity, Total 248 mcg/dL (261-462)
[2019-09-22] MEDS: Gabapentin 100 MG CAP PO SCH ×2 (08:34→21:21)
[2019-09-22] MEDS: Lidocaine 5% Patch TD SCH (08:34)
[2019-09-22] MEDS: Apixaban 2.5 MG TAB PO SCH ×2 (08:34→21:21)
[2019-09-22] MEDS: Dofetilide 0.125 MG CAP PO SCH ×2 (08:34→21:13)
[2019-09-22] MEDS: Famotidine 20 MG TAB PO SCH (08:34)
[2019-09-22] MEDS: Tamsulosin HCl 0.4 MG CAP PO SCH (08:34)
[2019-09-22] MEDS: ALPRAZolam 0.25 MG TAB PO SCH ×2 (08:34→21:21)
[2019-09-22] MEDS: Dutasteride 0.5 MG CAP PO SCH (08:35)
[2019-09-22] MEDS: HYDROcodone/Acetaminophen 5/325 mg Tablet PO PRN ×2 (08:42→21:25)
[2019-09-22] MEDS ORDERED: Non-Formulary Item 1 EACH (Tiotropium Bromide [Spiriva] 18 MCG) IH SCH (09:00)
[2019-09-22] MEDS ORDERED: Roflumilast [Daliresp] 250 MCG PO SCH (09:00)
[2019-09-22] MEDS: Iron, Sodium Ferric Gluconate 250 MG in Sodium Chloride 0.9% 100 ML IVPB SCH ×2 (11:08→23:20)
[2019-09-22] MEDS: Acetaminophen 325 MG TAB PO PRN (12:26)
--- NOTE | 2019-09-22 18:31 | CON ---
DATE OF CONSULTATION: 09/22/2019 REASON FOR CONSULTATION: Atrial fibrillation and recurrent GI blood loss. HISTORY OF PRESENT ILLNESS: Mr. Mart is a pleasant 78-year-old gentleman with history of coronary artery disease, also history of atrial fibrillation and recurrent anemia secondary to GI blood loss. He recently underwent a Watchman device and had coiling of the Watchman on 08/31. The patient is readmitted, required 2 units of packed red blood cells. He is also given some intravenous iron. MEDICATIONS: Please see nurse's note. Also he is on Eliquis 2.5 mg twice a day. REVIEW OF SYSTEMS: CONSTITUTIONAL: Positive for weakness and fatigue. HEENT: Vision, no changes. Hearing, no changes. PULMONARY: No cough or wheezing. Positive for shortness of breath. GASTROINTESTINAL: No nausea, vomiting, or diarrhea. SKIN: No rashes. NEUROLOGICAL: No unilateral weakness or numbness. PSYCHIATRIC: No unusual depression or anxiety. PHYSICAL EXAMINATION: VITAL SIGNS: Blood pressure 150/70, pulse 80. LUNGS: Distant, but no wheezing. CARDIAC: Cardiac. Normal S1, normal S2. ABDOMEN: Soft, nontender. EXTREMITIES: Minimal edema. LABORATORY DATA: EKG reveals sinus rhythm. CONCLUSION: 1. Status post Watchman device with some leaking around the device, status post recent coiling. 2. Paroxysmal atrial fibrillation. PLAN: 1. Plan is for transesophageal echo tomorrow morning. If there is no significant leak, then potentially Eliquis could be stopped. 2. He has received packed red blood cells. We will also give intravenous iron. Job ID: [id number]
--- NOTE | 2019-09-22 19:43 | PDOC.HOSPP ---
- Subjective Encounter Date: 09/22/19 Encounter Time: 17:20 Subjective: f/u for moderate dehydration, NNEKA and anemia with hx of chronic hypoxic resp failure on O2 supplementation 4L/min NC at home. Received 2u PRBC's overnight. No new complaints. - Objective Vital Signs & Weight: Vital Signs (12 hours) Temp Pulse Pulse Pulse Pulse Resp BP 09/22/19 18:39 100 16 09/22/19 14:58 97.8 F 88 26 H 150/70 H 09/22/19 14:36 83 16 09/22/19 11:15 98.0 F 93 20 134/58 L 09/22/19 10:25 90 16 09/22/19 09:40 92 95 98 09/22/19 08:34 09/22/19 08:00 97.3 F L 85 22 H 152/70 H Pulse Ox Pulse Ox Pulse Ox Pulse Ox 09/22/19 18:39 96 09/22/19 14:58 100 09/22/19 14:36 09/22/19 11:15 95 09/22/19 10:25 09/22/19 09:40 93 L 82 L 95 09/22/19 08:34 97 09/22/19 08:00 97 Weight Admit Weight 184 lb 4.8 oz Weight 183 lb 6.4 oz I&O: 09/21/19 09/22/19 09/23/19 06:59 06:59 06:59 Intake Total 1106 1657 Output Total 300 200 Balance 806 1457 Result Diagrams: 09/22/19 04:13 09/22/19 04:13 Additional Labs: Laboratory Tests 08/15/18 08/17/18 08/17/18 03:36 04:07 04:07 WBC Hgb Plt Count Neutrophils % INR 3.4 3.0 Potassium BUN Creatinine 4.15 H B-Natriuretic Peptide Hep Bs Antigen Hep Bs Antibody Hep Bs Antibody Index Hep B Core Total Ab Hepatitis C Antibody 08/17/18 08/18/18 08/18/18 04:07 04:19 04:19 WBC 18.3 H Hgb 10.8 L Plt Count Neutrophils % INR 2.4 Potassium BUN Creatinine 5.32 H B-Natriuretic Peptide Hep Bs Antigen Hep Bs Antibody Hep Bs Antibody Index Hep B Core Total Ab Hepatitis C Antibody 08/18/18 08/19/18 08/19/18 04:19 03:37 03:37 WBC 18.9 H Hgb 10.9 L Plt Count Neutrophils % INR 1.7 Potassium 4.8 BUN Creatinine 6.11 H B-Natriuretic Peptide Hep Bs Antigen Hep Bs Antibody Hep Bs Antibody Index Hep B Core Total Ab Hepatitis C Antibody 08/21/18 06/24/19 08/24/19 14:49 09:45 15:03 WBC Hgb Plt Count Neutrophils % INR Potassium BUN Creatinine B-Natriuretic Peptide 266.3 H 301.0 H Hep Bs Antigen Non-Reactive Hep Bs Antibody Non-Reactive Hep Bs Antibody Index 0.42 Hep B Core Total Ab Non-Reactive Hepatitis C Antibody Non-Reactive 09/21/19 09/21/19 09/22/19 10:30 10:30 04:13 WBC 14.0 H Hgb 8.1 L Plt Count 577 H Neutrophils % 86.3 H 81.1 H INR Potassium 3.8 BUN 31 H Creatinine 1.88 H B-Natriuretic Peptide Hep Bs Antigen Hep Bs Antibody Hep Bs Antibody Index Hep B Core Total Ab Hepatitis C Antibody 09/22/19 04:13 WBC Hgb Plt Count Neutrophils % INR Potassium BUN Creatinine B-Natriuretic Peptide 520.8 H Hep Bs Antigen Hep Bs Antibody Hep Bs Antibody Index Hep B Core Total Ab Hepatitis C Antibody Radiology Reviewed by me: Yes (PCXR - chronic changes bilat, L lower rib fx) EKG Reviewed by me: Yes (Tele - SR) Hospitalist ROS - Medication Medications: Active Medications Generic Name Dose Route Start Last Admin Trade Name Freq PRN Reason Stop Dose Admin Acetaminophen 650 mg 09/21/19 14:13 09/22/19 12:26 Tylenol PO 650 mg Q4H PRN Administration Headache/Fever/Mild Pain (1-3) Hydrocodone Bitart/Acetaminophen 1 tab 09/21/19 20:26 09/22/19 08:42 Halsey 5/325 PO 1 tab Q4H PRN Administration Moderate Pain (4-6) Albuterol/Ipratropium 3 ml 09/21/19 14:30 09/22/19 18:39 Duoneb NEB 3 ml [id number] SHORTY Administration Alprazolam 0.25 mg 09/21/19 21:00 09/22/19 08:34 Xanax PO 0.25 mg BID SHORTY Administration Apixaban 2.5 mg 09/21/19 21:00 12/03/19 08:34 Eliquis PO 2.5 mg BID SHORTY Administration Dofetilide 0.125 mg 09/21/19 21:00 09/22/19 08:34 Tikosyn PO 0.125 mg BID SHORTY Administration Dutasteride 0.5 mg 09/22/19 09:00 09/22/19 08:35 Avodart PO 0.5 mg DAILY SHORTY Administration Famotidine 20 mg 09/22/19 09:00 09/22/19 08:34 Pepcid PO 20 mg DAILY SHORTY Administration Gabapentin 100 mg 09/21/19 21:00 09/22/19 08:34 Neurontin PO 100 mg BID SHORTY Administration Ferric Sodium Gluconate 120 mls @ 60 mls/hr 09/22/19 11:00 09/22/19 11:08 Complex 250 mg/ Sodium IVPB 09/23/19 00:59 120 mls Chloride 1100,2300 SHORTY Administration Lidocaine 1 patch 09/22/19 09:00 09/22/19 08:34 Lidoderm 5% Patch TD 1 patch DAILY SHORTY Administration Mometasone Furoate/Formoterol Fumar 2 puff 09/21/19 18:30 09/22/19 18:55 Dulera 100 Mcg/5 Mcg Inhaler INH 2 puff BID-RT SHORTY Administration Rosuvastatin Calcium 10 mg 09/21/19 21:00 09/21/19 20:11 Crestor PO 10 mg HS SHORTY Administration Sertraline HCl 50 mg 09/21/19 21:00 09/21/19 20:13 Zoloft PO 50 mg HS SHORTY Administration Tamsulosin HCl 0.4 mg 09/22/19 09:00 09/22/19 08:34 Flomax PO 0.4 mg DAILY SHORTY Administration - Exam General Appearance: NAD, awake alert Eye: PERRL, anicteric sclera ENT: normocephalic atraumatic, no oropharyngeal lesions Neck: supple, symmetric, no JVD, no thyromegaly, no lymphadenopathy Heart: RRR, no gallops, no rubs, normal peripheral pulses Respiratory - other findings: diminished in bases o/w clear, tachypneic Gastrointestinal: soft, non-tender, non-distended, normal bowel sounds, no palpable masses Extremities: no cyanosis, no clubbing Skin: normal turgor, no lesions Neurological: cranial nerve grossly intact, no new deficit Musculoskeletal: normal tone, generalized weakness Psychiatric: normal affect, A&O x 3 Hosp A/P (1) NNEKA (acute kidney injury) Code(s): N17.9 - ACUTE KIDNEY FAILURE, UNSPECIFIED Status: Acute Plan: Improved with volume replacement, avoid nephrotoxic meds and limit contrast exposure, serial creatinine (2) Acute and chronic respiratory failure with hypoxia Code(s): J96.21 - ACUTE AND CHRONIC RESPIRATORY FAILURE WITH HYPOXIA Status: Acute Plan: Multifactorial, continue O2 supplementation and monitor clinical response (3) Symptomatic anemia Code(s): D64.9 - ANEMIA, UNSPECIFIED Status: Acute Plan: s/p 2u PRBC's, serial H/H monitoring, component of Iron-deficiency (4) Physical deconditioning Code(s): R53.81 - OTHER MALAISE Status: Acute Plan: PT/OT for mobilization (5) Atrial fibrillation Code(s): I48.91 - UNSPECIFIED ATRIAL FIBRILLATION Status: Chronic Qualifiers: Atrial fibrillation type: unspecified Qualified Code(s): I48.91 - Unspecified atrial fibrillation Plan: Currently SR, continue telemetry monitoring (6) CKD (chronic kidney disease) stage 3, GFR 30-59 ml/min Code(s): N18.3 - CHRONIC KIDNEY DISEASE, STAGE 3 (MODERATE) Status: Chronic Plan: Avoid nephrotoxic meds and limit contrast exposure - Plan continue antibiotics, PT/OT, certified social workers in health care, respiratory therapy, out of bed/ ambulate, DVT proph w/SCDs Stable currently Continue pulmonary supportive mgmt IV Iron infusion Continue Eliquis 2.5mg BID ANNAMARIA planned for am AM lab: Creatinine, H/H
[2019-09-22] MEDS: Rosuvastatin 10 MG TAB PO SCH (21:13)
[2019-09-22] MEDS: Lidocaine Patch Removal 1 EACH TOP SCH (21:23)
[2019-09-23] MEDS ORDERED: Mometasone/Formoterol 120 PUFF INHALER ONE (07:22)
[2019-09-23] MEDS: Mometasone/Formoterol 120 PUFF INHALER INH SCH ×2 (07:40→18:04)
[2019-09-23] MEDS: Apixaban 2.5 MG TAB PO SCH ×3 (09:15→21:04)
[2019-09-23] MEDS: Azithromycin 250 MG TAB PO SCH ×2 (09:15→12:31)
[2019-09-23] MEDS: Tamsulosin HCl 0.4 MG CAP PO SCH ×2 (09:15→12:33)
[2019-09-23] MEDS: Famotidine 20 MG TAB PO SCH ×2 (09:15→12:32)
[2019-09-23] MEDS: Dofetilide 0.125 MG CAP PO SCH ×3 (09:15→21:04)
[2019-09-23] MEDS: Gabapentin 100 MG CAP PO SCH ×3 (09:15→21:04)
[2019-09-23] MEDS: Dutasteride 0.5 MG CAP PO SCH ×2 (09:15→12:32)
[2019-09-23] MEDS: ALPRAZolam 0.25 MG TAB PO SCH ×3 (09:15→21:05)
[2019-09-23] MEDS ORDERED: Furosemide 40 MG/4 ML VIAL ONE (09:51)
[2019-09-23] MEDS ORDERED: PROPOFOL 20 ML ONE (10:02)
[2019-09-23] MEDS ORDERED: Glycopyrrolate 0.2 MG/ML 5 ML SYRINGE ONE (10:07)
[2019-09-23] MEDS ORDERED: ePHEDrine/0.9% NaCl/PF SYRINGE 50 mg/10 ml ONE (10:07)
[2019-09-23] MEDS ORDERED: Lidocaine 1% PF 5 ML VIAL ONE (10:07)
[2019-09-23] MEDS ORDERED: Ondansetron PF 4 MG/2 ML Vial ONE (10:07)
[2019-09-23] MEDS ORDERED: Rocuronium Bromide 10 MG/ML (10ML VIAL) ONE (10:07)
[2019-09-23] MEDS ORDERED: PROPOFOL 200 MG/20 ML VIAL ONE ×2 (10:07)
[2019-09-23] MEDS ORDERED: PHENYLEPHRINE-NS 100 MCG/ML 10 ML SYRINGE ONE (10:07)
[2019-09-23] MEDS ORDERED: Dexamethasone 20 MG/5 ML VIAL ONE (10:07)
--- NOTE | 2019-09-23 11:42 | OP ---
DATE OF PROCEDURE: 09/23/2019 PROCEDURE PERFORMED: Transesophageal echocardiogram. INDICATIONS: A 78-year-old gentleman with paroxysmal atrial fibrillation. DESCRIPTION OF PROCEDURE: The patient was taken to the PACU. The patient was sedated by Anesthesiology. A transesophageal probe was placed into the distal esophagus and stomach. Echocardiographic images were obtained. The transesophageal probe was removed. FINDINGS: 1. Normal mitral and aortic valves. 2. Moderate mitral regurgitation. 3. Mild aortic regurgitation. 4. Mild tricuspid regurgitation. 5. The Watchman device was well positioned in the left atrial appendage. There was two 0.2 cm leaks noted around the device. 6. Atherosclerotic debris in the descending aorta. IMPRESSION: Watchman device with two 0.2 cm leaks noted. Job ID: [id number] [facility]
[2019-09-23 17:13] LABS: Hemoglobin 9.3 g/dL (14.0-18.0); Platelet Count 483 thou/uL (130-400)
[2019-09-23] MEDS: Lidocaine 5% Patch TD SCH (17:38)
[2019-09-23] MEDS ORDERED: Potassium Chloride 20 MEQ TAB PO SCH (17:45)
--- NOTE | 2019-09-23 18:13 | PRG ---
DATE OF SERVICE: 09/23/2019 SUBJECTIVE: Mr. Mart underwent transesophageal echo today. He still has communication through the Watchman. OBJECTIVE: VITAL SIGNS: Blood pressure 125/62, pulse 95 and regular. LUNGS: Clear. CARDIAC: Normal S1 and normal S2. ASSESSMENT: 1. Paroxysmal atrial fibrillation. 2. Still communication, passed the watchman device into the appendage. 3. Repetitive anemia. PLAN: Continue Eliquis. We will discuss with Watchman device. Job ID: [id number]
--- NOTE | 2019-09-23 18:55 | PDOC.HOSPP ---
- Subjective Encounter Date: 09/23/19 Encounter Time: 18:45 Subjective: f/u for NNEKA, Anemia on chronic Eliquis, moderate dehydration. Feels better overall but leaks noted around Watchman device on ANNAMARIA today. - Objective Vital Signs & Weight: Vital Signs (12 hours) Temp Pulse Pulse Resp BP BP Pulse Ox 09/23/19 18:03 95 16 95 09/23/19 16:05 97.5 F L 95 18 125/62 95 09/23/19 15:30 95 125/62 09/23/19 14:18 80 18 96 09/23/19 12:15 97.6 F 89 20 142/75 H 96 09/23/19 10:49 97.6 F 89 18 130/78 100 09/23/19 07:47 97.8 F 89 18 142/70 H 98 09/23/19 07:45 98 Pulse Ox Pulse Ox Pulse Ox 09/23/19 18:03 09/23/19 16:05 09/23/19 15:30 78 L 94 L 94 L 09/23/19 14:18 09/23/19 12:15 09/23/19 10:49 09/23/19 07:47 09/23/19 07:45 Weight Admit Weight 184 lb 4.8 oz Weight 183 lb 6.4 oz I&O: 09/22/19 09/23/19 09/24/19 06:59 06:59 06:59 Intake Total 1106 1657 Output Total 300 200 Balance 806 1457 Result Diagrams: 09/23/19 17:04 09/23/19 17:04 Additional Labs: Laboratory Tests 08/15/18 08/17/18 08/17/18 03:36 04:07 04:07 WBC Hgb Plt Count Neutrophils % INR 3.4 3.0 Potassium BUN Creatinine 4.15 H B-Natriuretic Peptide Hep Bs Antigen Hep Bs Antibody Hep Bs Antibody Index Hep B Core Total Ab Hepatitis C Antibody 08/17/18 08/18/18 08/18/18 04:07 04:19 04:19 WBC 18.3 H Hgb 10.8 L Plt Count Neutrophils % INR 2.4 Potassium BUN Creatinine 5.32 H B-Natriuretic Peptide Hep Bs Antigen Hep Bs Antibody Hep Bs Antibody Index Hep B Core Total Ab Hepatitis C Antibody 08/18/18 08/19/18 08/19/18 04:19 03:37 03:37 WBC 18.9 H Hgb 10.9 L Plt Count Neutrophils % INR 1.7 Potassium 4.8 BUN Creatinine 6.11 H B-Natriuretic Peptide Hep Bs Antigen Hep Bs Antibody Hep Bs Antibody Index Hep B Core Total Ab Hepatitis C Antibody 08/21/18 06/24/19 08/24/19 14:49 09:45 15:03 WBC Hgb Plt Count Neutrophils % INR Potassium BUN Creatinine B-Natriuretic Peptide 266.3 H 301.0 H Hep Bs Antigen Non-Reactive Hep Bs Antibody Non-Reactive Hep Bs Antibody Index 0.42 Hep B Core Total Ab Non-Reactive Hepatitis C Antibody Non-Reactive 09/21/19 09/21/19 09/22/19 10:30 10:30 04:13 WBC 14.0 H Hgb 8.1 L Plt Count 577 H Neutrophils % 86.3 H 81.1 H INR Potassium 3.8 BUN 31 H Creatinine 1.88 H B-Natriuretic Peptide Hep Bs Antigen Hep Bs Antibody Hep Bs Antibody Index Hep B Core Total Ab Hepatitis C Antibody 09/22/19 04:13 WBC Hgb Plt Count Neutrophils % INR Potassium BUN Creatinine B-Natriuretic Peptide 520.8 H Hep Bs Antigen Hep Bs Antibody Hep Bs Antibody Index Hep B Core Total Ab Hepatitis C Antibody Radiology Reviewed by me: Yes (ANNAMARIA - leaks around Watchman device) EKG Reviewed by me: Yes (Tele - SR) Hospitalist ROS - Medication Medications: Active Medications Generic Name Dose Route Start Last Admin Trade Name Freq PRN Reason Stop Dose Admin Acetaminophen 650 mg 09/21/19 14:13 09/22/19 12:26 Tylenol PO 650 mg Q4H PRN Administration Headache/Fever/Mild Pain (1-3) Hydrocodone Bitart/Acetaminophen 1 tab 09/21/19 20:26 09/22/19 21:25 Corn[place] 5/325 PO 1 tab Q4H PRN Administration Moderate Pain (4-6) Albuterol/Ipratropium 3 ml 09/21/19 14:30 09/23/19 18:03 Duoneb NEB 3 ml [id number] SHORTY Administration Alprazolam 0.25 mg 09/21/19 21:00 09/23/19 09:15 Xanax PO 0.25 mg BID SHORTY Administration Apixaban 2.5 mg 09/21/19 21:00 09/23/19 09:15 Eliquis PO Not Given BID SHORTY Azithromycin 500 mg 09/23/19 09:00 09/23/19 09:15 Zithromax PO 500 mg MWF SHORTY Administration Dofetilide 0.125 mg 09/21/19 21:00 09/23/19 09:15 Tikosyn PO 0.125 mg BID SHORTY Administration Dutasteride 0.5 mg 09/22/19 09:00 09/23/19 09:15 Avodart PO 0.5 mg DAILY SHORTY Administration Famotidine 20 mg 09/22/19 09:00 09/23/19 09:15 Pepcid PO 20 mg DAILY SHORTY Administration Gabapentin 100 mg 09/21/19 21:00 09/23/19 09:15 Neurontin PO 100 mg BID SHORTY Administration Lidocaine 1 patch 09/22/19 09:00 09/23/19 17:38 Lidoderm 5% Patch TD Not Given DAILY SHORTY Miscellaneous Medication 1 each 09/22/19 21:00 09/22/19 21:23 Lidocaine Patch Removal TOP Not Given 2100 [facility] Mometasone Furoate/Formoterol Fumar 2 puff 09/21/19 18:30 09/23/19 18:04 Dulera 100 Mcg/5 Mcg Inhaler INH 2 puff BID-RT SHORTY Administration Potassium Chloride 40 meq 09/23/19 17:45 09/23/19 18:25 K-Dur PO 09/23/19 19:45 40 meq NOW SHORTY Administration Rosuvastatin Calcium 10 mg 09/21/19 21:00 09/22/19 21:13 Crestor PO 10 mg HS SHORTY Administration Sertraline HCl 50 mg 09/21/19 21:00 09/22/19 21:21 Zoloft PO 50 mg HS SHORTY Administration Tamsulosin HCl 0.4 mg 09/22/19 09:00 09/23/19 09:15 Flomax PO 0.4 mg DAILY SHORTY Administration Testosterone Cypionate 200 mg 09/23/19 09:00 09/23/19 16:20 Depo-Testosterone IM 200 mg Q10D SHORTY Administration - Exam Eye: PERRL, anicteric sclera ENT: normocephalic atraumatic, no oropharyngeal lesions Neck: supple, symmetric, no JVD, no thyromegaly Heart: RRR, no gallops, no rubs, normal peripheral pulses Respiratory: CTAB, no rales, no ronchi Respiratory - other findings: diminished in bases Gastrointestinal: soft, non-tender, non-distended, normal bowel sounds, no palpable masses Extremities: no cyanosis, no clubbing Skin: normal turgor, no lesions Neurological: cranial nerve grossly intact, no new deficit Musculoskeletal: normal tone, generalized weakness Psychiatric: normal affect, A&O x 3 Hosp A/P (1) NNEKA (acute kidney injury) Code(s): N17.9 - ACUTE KIDNEY FAILURE, UNSPECIFIED Status: Acute Plan: Improved with volume replacement, avoid nephrotoxic meds and limit contrast exposure (2) Acute and chronic respiratory failure with hypoxia Code(s): J96.21 - ACUTE AND CHRONIC RESPIRATORY FAILURE WITH HYPOXIA Status: Acute Plan: Continue O2 supplementation (3) Symptomatic anemia Code(s): D64.9 - ANEMIA, UNSPECIFIED Status: Acute Plan: s/p 2u PRBC's, serial H/H, currently stable (4) Physical deconditioning Code(s): R53.81 - OTHER MALAISE Status: Chronic Plan: PT/OT for mobilization (5) Atrial fibrillation Code(s): I48.91 - UNSPECIFIED ATRIAL FIBRILLATION Status: Chronic Qualifiers: Atrial fibrillation type: unspecified Qualified Code(s): I48.91 - Unspecified atrial fibrillation Plan: s/p Watchman device, continue Eliquis, continue Tikosyn (6) CKD (chronic kidney disease) stage 3, GFR 30-59 ml/min Code(s): N18.3 - CHRONIC KIDNEY DISEASE, STAGE 3 (MODERATE) Status: Chronic - Plan PT/OT, social work coordinator, out of bed/ambulate, DVT proph w/SCDs Stable currently Continue pulmonary supportive mgmt IV Iron infusion Continue Eliquis 2.5mg BID ANNAMARIA showing Watchman device leak AM lab: Creatinine, H/H
[2019-09-23] MEDS: Rosuvastatin 10 MG TAB PO SCH (21:04)
[2019-09-23] MEDS: HYDROcodone/Acetaminophen 5/325 mg Tablet PO PRN (21:04)
[2019-09-23] MEDS: Lidocaine Patch Removal 1 EACH TOP SCH (21:05)
[2019-09-24 06:06] LABS: Anion Gap 10 mmol/L (10-20); BUN (Urea Nitrogen) 20 mg/dL (8.4-25.7); Calc. Creatinine Clearance 61 mL/min (70-130); Carbon Dioxide 25 mmol/L (23-31); Chloride 110 mmol/L (98-107); Estimated GFR-MDRD 57; Glucose 81 mg/dL (83-110); Potassium 3.8 mmol/L (3.5-5.1); Sodium 141 mmol/L (136-145)
[2019-09-24] MEDS: Mometasone/Formoterol 120 PUFF INHALER INH SCH ×2 (07:12→18:31)
[2019-09-24] MEDS ORDERED: Potassium Chloride 20 MEQ TAB PO SCH ×2 (08:45→18:00)
[2019-09-24] MEDS ORDERED: Furosemide 40 MG/4 ML VIAL SLOW IVP SCH ×2 (08:45→18:00)
[2019-09-24] MEDS ORDERED: Aspirin 81 mg Enteric Coated Tablet PO SCH (09:45)
--- NOTE | 2019-09-24 09:49 | PRG ---
DATE OF SERVICE: 09/24/2019 SUBJECTIVE: Mr. Mart is more short of breath today. He did receive some intravenous Lasix yesterday. OBJECTIVE: VITAL SIGNS: Blood pressure 130/70, pulse 80. LUNGS: Increased respiratory rate. CARDIAC: Normal S1, normal S2. ABDOMEN: Soft, nontender. EXTREMITIES: No edema. ASSESSMENT: 1. The patient is maintaining sinus rhythm. 2. Previous Watchman device with continued leak. 3. History of iron deficiency anemia. PLAN: 1. Give him extra Lasix today. 2. Possibly home tomorrow if doing well. 3. I got a call in to Dr. Kuhn about whether we should continue Eliquis for now. We will continue with reduced-dose Eliquis. ADDENDUM: Discussed with Dr. Kuhn. In view of the patient's continued blood loss and recurrent necessity for packed red blood cells, the best option at this point appears to be stopping the Eliquis and substituting aspirin 81 mg a day. We will start the aspirin tomorrow as he did receive a dose of Eliquis last night Job ID: [id number]
[2019-09-24] MEDS: Tamsulosin HCl 0.4 MG CAP PO SCH (10:02)
[2019-09-24] MEDS: Famotidine 20 MG TAB PO SCH (10:02)
[2019-09-24] MEDS: Dutasteride 0.5 MG CAP PO SCH (10:03)
[2019-09-24] MEDS: Dofetilide 0.125 MG CAP PO SCH ×2 (10:03→20:22)
[2019-09-24] MEDS: Gabapentin 100 MG CAP PO SCH ×2 (10:04→20:22)
[2019-09-24] MEDS: Lidocaine 5% Patch TD SCH (10:04)
[2019-09-24] MEDS: ALPRAZolam 0.25 MG TAB PO SCH ×2 (10:05→20:22)
[2019-09-24] MEDS: Apixaban 2.5 MG TAB PO SCH (10:15)
--- NOTE | 2019-09-24 16:10 | PDOC.HOSPP ---
- Subjective Encounter Date: 09/24/19 Encounter Time: 16:10 Subjective: f/u for mod dehydration, anemia s/p 2u PRBC's and Watchman device with persistent leak. Feels ok overall. Received extra dose of Lasix today due to dyspnea. - Objective Vital Signs & Weight: Vital Signs (12 hours) Temp Pulse Resp BP Pulse Ox Pulse Ox Pulse Ox 09/24/19 15:30 98.1 F 94 20 100 09/24/19 14:01 91 L 78 L 09/24/19 13:55 95 18 99 09/24/19 11:16 92 20 98 09/24/19 11:04 97.6 F 97 20 96 09/24/19 08:00 99 18 128/56 L 96 09/24/19 07:10 71 18 99 Pulse Ox 09/24/19 15:30 09/24/19 14:01 93 L 09/24/19 13:55 09/24/19 11:16 09/24/19 11:04 09/24/19 08:00 09/24/19 07:10 Weight Admit Weight 184 lb 4.8 oz Weight 192 lb 3.2 oz I&O: 09/23/19 09/24/19 09/25/19 06:59 06:59 06:59 Intake Total 1657 1200 Output Total 200 1235 Balance 1457 -35 Result Diagrams: 09/23/19 17:04 09/24/19 04:14 Additional Labs: Laboratory Tests 08/15/18 08/17/18 08/17/18 03:36 04:07 04:07 WBC Hgb Plt Count Neutrophils % INR 3.4 3.0 Potassium BUN Creatinine 4.15 H B-Natriuretic Peptide Hep Bs Antigen Hep Bs Antibody Hep Bs Antibody Index Hep B Core Total Ab Hepatitis C Antibody 08/17/18 08/18/18 08/18/18 04:07 04:19 04:19 WBC 18.3 H Hgb 10.8 L Plt Count Neutrophils % INR 2.4 Potassium BUN Creatinine 5.32 H B-Natriuretic Peptide Hep Bs Antigen Hep Bs Antibody Hep Bs Antibody Index Hep B Core Total Ab Hepatitis C Antibody 08/18/18 08/19/18 08/19/18 04:19 03:37 03:37 WBC 18.9 H Hgb 10.9 L Plt Count Neutrophils % INR 1.7 Potassium 4.8 BUN Creatinine 6.11 H B-Natriuretic Peptide Hep Bs Antigen Hep Bs Antibody Hep Bs Antibody Index Hep B Core Total Ab Hepatitis C Antibody 08/21/18 06/24/19 08/24/19 14:49 09:45 15:03 WBC Hgb Plt Count Neutrophils % INR Potassium BUN Creatinine B-Natriuretic Peptide 266.3 H 301.0 H Hep Bs Antigen Non-Reactive Hep Bs Antibody Non-Reactive Hep Bs Antibody Index 0.42 Hep B Core Total Ab Non-Reactive Hepatitis C Antibody Non-Reactive 09/21/19 09/21/19 09/22/19 10:30 10:30 04:13 WBC 14.0 H Hgb 8.1 L Plt Count 577 H Neutrophils % 86.3 H 81.1 H INR Potassium 3.8 BUN 31 H Creatinine 1.88 H B-Natriuretic Peptide Hep Bs Antigen Hep Bs Antibody Hep Bs Antibody Index Hep B Core Total Ab Hepatitis C Antibody 09/22/19 04:13 WBC Hgb Plt Count Neutrophils % INR Potassium BUN Creatinine B-Natriuretic Peptide 520.8 H Hep Bs Antigen Hep Bs Antibody Hep Bs Antibody Index Hep B Core Total Ab Hepatitis C Antibody EKG Reviewed by me: Yes (Tele - SR) Hospitalist ROS - Medication Medications: Active Medications Generic Name Dose Route Start Last Admin Trade Name Freq PRN Reason Stop Dose Admin Acetaminophen 650 mg 09/21/19 14:13 09/22/19 12:26 Tylenol PO 650 mg Q4H PRN Administration Headache/Fever/Mild Pain (1-3) Hydrocodone Bitart/Acetaminophen 1 tab 09/21/19 20:26 09/23/19 21:04 [place] 5/325 PO 1 tab Q4H PRN Administration Moderate Pain (4-6) Albuterol/Ipratropium 3 ml 09/21/19 14:30 09/24/19 13:55 Duoneb NEB 3 ml [id number] SHORTY Administration Alprazolam 0.25 mg 09/21/19 21:00 09/24/19 10:05 Xanax PO Not Given BID SHORTY Azithromycin 500 mg 09/23/19 09:00 09/23/19 09:15 Zithromax PO 500 mg MWF SHORTY Administration Dofetilide 0.125 mg 09/21/19 21:00 09/24/19 10:03 Tikosyn PO 0.125 mg BID SHORTY Administration Dutasteride 0.5 mg 09/22/19 09:00 09/24/19 10:03 Avodart PO 0.5 mg DAILY SHORTY Administration Famotidine 20 mg 09/22/19 09:00 09/24/19 10:02 Pepcid PO 20 mg DAILY SHORTY Administration Gabapentin 100 mg 09/21/19 21:00 09/24/19 10:04 Neurontin PO 100 mg BID SHORTY Administration Lidocaine 1 patch 09/22/19 09:00 09/24/19 10:04 Lidoderm 5% Patch TD 1 patch DAILY SHORTY Administration Miscellaneous Medication 1 each 09/22/19 21:00 09/23/19 21:05 Lidocaine Patch Removal TOP 1 each 2100 SHORTY Administration Mometasone Furoate/Formoterol Fumar 2 puff 09/21/19 18:30 09/24/19 07:12 Dulera 100 Mcg/5 Mcg Inhaler INH 2 puff BID-RT SHORTY Administration Rosuvastatin Calcium 10 mg 09/21/19 21:00 09/23/19 21:04 Crestor PO 10 mg HS SHORTY Administration Sertraline HCl 50 mg 09/21/19 21:00 09/23/19 21:05 Zoloft PO 50 mg HS SHORTY Administration Tamsulosin HCl 0.4 mg 09/22/19 09:00 09/24/19 10:02 Flomax PO 0.4 mg DAILY SHORTY Administration Testosterone Cypionate 200 mg 09/23/19 09:00 09/23/19 16:20 Depo-Testosterone IM 200 mg Q10D SHORTY Administration - Exam General Appearance: NAD Eye: PERRL, anicteric sclera ENT: normocephalic atraumatic, no oropharyngeal lesions Neck: supple, symmetric, no JVD, no thyromegaly Heart: RRR, no gallops, no rubs, normal peripheral pulses Respiratory: tachypneic Respiratory - other findings: scattered coarse sounds bilat Gastrointestinal: soft, non-tender, non-distended, normal bowel sounds Extremities: no cyanosis, 1+ LE edema Skin: normal turgor, no lesions Neurological: cranial nerve grossly intact, no new deficit Musculoskeletal: normal tone, generalized weakness Psychiatric: normal affect, A&O x 3 Hosp A/P (1) NNEKA (acute kidney injury) Code(s): N17.9 - ACUTE KIDNEY FAILURE, UNSPECIFIED Status: Acute Plan: Resolved, avoid nephrotoxic meds and limit contrast exposure (2) Acute and chronic respiratory failure with hypoxia Code(s): J96.21 - ACUTE AND CHRONIC RESPIRATORY FAILURE WITH HYPOXIA Status: Acute Plan: Continue O2 supplementation, Lasix IV x 1 today (3) Symptomatic anemia Code(s): D64.9 - ANEMIA, UNSPECIFIED Status: Acute Plan: s/p 2u PRBC's, serial H/H, d/c Eliquis (4) Physical deconditioning Code(s): R53.81 - OTHER MALAISE Status: Chronic (5) Atrial fibrillation Code(s): I48.91 - UNSPECIFIED ATRIAL FIBRILLATION Status: Chronic Qualifiers: Atrial fibrillation type: unspecified Qualified Code(s): I48.91 - Unspecified atrial fibrillation Plan: s/p Watchman device with current leaks, no anticoagulation recommended (6) CKD (chronic kidney disease) stage 3, GFR 30-59 ml/min Code(s): N18.3 - CHRONIC KIDNEY DISEASE, STAGE 3 (MODERATE) Status: Chronic - Plan PT/OT, social science manager, respiratory therapy, out of bed/ambulate, DVT proph w/ SCDs Stable currently Continue pulmonary supportive mgmt IV Iron infusion completed D/C Eliquis Start ASA in am ANNAMARIA showing Watchman device leak AM lab: Creatinine, H/H Likely home in 24h
[2019-09-24] MEDS: Rosuvastatin 10 MG TAB PO SCH (20:22)
[2019-09-24] MEDS: HYDROcodone/Acetaminophen 5/325 mg Tablet PO PRN (20:23)
[2019-09-24] MEDS: Lidocaine Patch Removal 1 EACH TOP SCH (22:14)
[2019-09-25] MEDS: Mometasone/Formoterol 120 PUFF INHALER INH SCH ×2 (07:29→18:48)
[2019-09-25] MEDS: Dofetilide 0.125 MG CAP PO SCH ×2 (09:06→20:45)
[2019-09-25] MEDS: Dutasteride 0.5 MG CAP PO SCH (09:06)
[2019-09-25] MEDS: Tamsulosin HCl 0.4 MG CAP PO SCH (09:06)
[2019-09-25] MEDS: Gabapentin 100 MG CAP PO SCH ×2 (09:06→20:45)
[2019-09-25] MEDS: Famotidine 20 MG TAB PO SCH (09:06)
[2019-09-25] MEDS: Azithromycin 250 MG TAB PO SCH (09:06)
[2019-09-25] MEDS: Aspirin 81 mg Enteric Coated Tablet PO SCH (09:06)
[2019-09-25] MEDS: Furosemide 40 MG/4 ML VIAL SLOW IVP SCH (09:06)
[2019-09-25] MEDS: Lidocaine 5% Patch TD SCH (09:06)
[2019-09-25] MEDS: ALPRAZolam 0.25 MG TAB PO SCH ×2 (09:07→20:45)
[2019-09-25] MEDS ORDERED: methylPREDNISolone Sod Succ 40 MG VIAL IVP SCH (09:45)
--- NOTE | 2019-09-25 10:06 | PRG ---
DATE OF SERVICE: 09/25/2019 SUBJECTIVE: Mr. Mart feels very short of breath today. He is very weak. He has been in bed for several days now. He is not having chest pain. He is very short of breath. OBJECTIVE: VITAL SIGNS: His blood pressure 133/65, pulse 90. LUNGS: Some expiratory wheezing. CARDIAC: Normal S1. Normal S2. ABDOMEN: Soft, nontender. EXTREMITIES: There is no significant edema. LABORATORY DATA: Yesterday, the creatinine improved to 1.22. Potassium is 3.8. The I and O yesterday was negative 795 according to the notes. ASSESSMENT: 1. History of congestive heart failure diastolic. 2. Chronic obstructive pulmonary disease. 3. Paroxysmal atrial fibrillation. 4. Previous Watchman placement. 5. Iron deficiency anemia. PLAN: 1. His breathing has actually not improved. We will give him a dose of steroids. 2. Recheck lab tomorrow. 3. Hopefully home tomorrow. We will also order a chest x-ray tomorrow morning. 4. Also he needs to be getting up and be mobilized some. Job ID: [id number]
--- NOTE | 2019-09-25 11:50 | PDOC.HOSPP ---
- Subjective Encounter Date: 09/25/19 Encounter Time: 11:45 Subjective: f/u for dyspnea, NNEKA and anemia s/p 2u PRBC's. Feels SOB with movement but still on baseline O2 3L/min NC which is the same amount at home. - Objective Vital Signs & Weight: Vital Signs (12 hours) Temp Pulse Resp BP Pulse Ox 09/25/19 10:45 86 16 09/25/19 08:55 97.7 F 93 18 133/65 96 09/25/19 07:29 92 16 09/25/19 07:23 92 16 09/25/19 02:59 97.5 F L 85 16 116/56 L 95 09/25/19 01:35 83 16 91 L 09/25/19 00:40 97 Weight Admit Weight 184 lb 4.8 oz Weight 189 lb 9.6 oz I&O: 09/24/19 09/25/19 09/26/19 06:59 06:59 06:59 Intake Total 1200 1080 Output Total 1231 6445 Balance -35 -630 Result Diagrams: 09/23/19 17:04 09/24/19 04:14 EKG Reviewed by me: Yes (Tele - SR) Hospitalist ROS - Medication Medications: Active Medications Generic Name Dose Route Start Last Admin Trade Name Freq PRN Reason Stop Dose Admin Acetaminophen 650 mg 09/21/19 14:13 09/22/19 12:26 Tylenol PO 650 mg Q4H PRN Administration Headache/Fever/Mild Pain (1-3) Hydrocodone Bitart/Acetaminophen 1 tab 09/21/19 20:26 09/24/19 20:23 [place] 5/325 PO 1 tab Q4H PRN Administration Moderate Pain (4-6) Albuterol/Ipratropium 3 ml 09/21/19 14:30 09/25/19 10:45 Duoneb NEB 3 ml [id number] SHORTY Administration Alprazolam 0.25 mg 09/21/19 21:00 09/25/19 09:07 Xanax PO Not Given BID SHORTY Aspirin 81 mg 09/25/19 09:00 09/25/19 09:06 Ecotrin PO 81 mg DAILY SHORTY Administration Azithromycin 500 mg 09/23/19 09:00 09/25/19 09:06 Zithromax PO 500 mg MWF SHORTY Administration Dofetilide 0.125 mg 09/21/19 21:00 09/25/19 09:06 Tikosyn PO 0.125 mg BID SHORTY Administration Dutasteride 0.5 mg 09/22/19 09:00 09/25/19 09:06 Avodart PO 0.5 mg DAILY SHORTY Administration Famotidine 20 mg 09/22/19 09:00 09/25/19 09:06 Pepcid PO 20 mg DAILY SHORTY Administration Furosemide 40 mg 09/25/19 09:00 09/25/19 09:06 Lasix SLOW IVP 40 mg DAILY SHORTY Administration Gabapentin 100 mg 09/21/19 21:00 09/25/19 09:06 Neurontin PO 100 mg BID SHORTY Administration Lidocaine 1 patch 09/22/19 09:00 09/25/19 09:06 Lidoderm 5% Patch TD 1 patch DAILY SHORTY Administration Methylprednisolone Sodium Succinate 40 mg 09/25/19 09:45 09/25/19 10:05 Solu-Medrol IVP 09/25/19 12:00 40 mg NOW SHORTY Administration Miscellaneous Medication 1 each 09/22/19 21:00 09/24/19 22:14 Lidocaine Patch Removal TOP 1 each 2100 SHORTY Administration Mometasone Furoate/Formoterol Fumar 2 puff 09/21/19 18:30 09/25/19 07:29 Dulera 100 Mcg/5 Mcg Inhaler INH 2 puff BID-RT SHORTY Administration Rosuvastatin Calcium 10 mg 09/21/19 21:00 09/24/19 20:22 Crestor PO 10 mg HS SHORTY Administration Sertraline HCl 50 mg 09/21/19 21:00 09/24/19 20:22 Zoloft PO 50 mg HS SHORTY Administration Sodium Chloride 10 ml 09/24/19 21:00 09/25/19 09:07 Flush - Normal Saline IVF 10 ml Q12HR SHORTY Administration Tamsulosin HCl 0.4 mg 09/22/19 09:00 09/25/19 09:06 Flomax PO 0.4 mg DAILY SHORTY Administration Testosterone Cypionate 200 mg 09/23/19 09:00 09/23/19 16:20 Depo-Testosterone IM 200 mg Q10D SHORTY Administration - Exam General Appearance: awake alert General - other findings: dyspneic Eye: PERRL, anicteric sclera ENT: normocephalic atraumatic, no oropharyngeal lesions Neck: supple, symmetric, no JVD, no thyromegaly Heart: RRR, no gallops, no rubs, normal peripheral pulses Respiratory - other findings: diminished in bases, scattered coarse sounds Gastrointestinal: soft, non-tender, non-distended, normal bowel sounds, no palpable masses Extremities: no cyanosis, no clubbing, no edema Skin: normal turgor, no lesions Neurological: cranial nerve grossly intact, no new deficit Musculoskeletal: normal tone, generalized weakness Psychiatric: normal affect, A&O x 3 Hosp A/P (1) NNEKA (acute kidney injury) Code(s): N17.9 - ACUTE KIDNEY FAILURE, UNSPECIFIED Status: Acute Plan: Resolved, monitor closely with increased Lasix dosing (2) Acute and chronic respiratory failure with hypoxia Code(s): J96.21 - ACUTE AND CHRONIC RESPIRATORY FAILURE WITH HYPOXIA Status: Acute Plan: Baseline O2 3-4L/min NC at home, continue Lasix, Duonebs and Prednisone, general pulmonary support (3) Symptomatic anemia Code(s): D64.9 - ANEMIA, UNSPECIFIED Status: Acute Plan: s/p 2u PRBC's (4) Physical deconditioning Code(s): R53.81 - OTHER MALAISE Status: Chronic Plan: PT for mobilization, will benefit from outpt PT or HH with PT (5) Atrial fibrillation Code(s): I48.91 - UNSPECIFIED ATRIAL FIBRILLATION Status: Chronic Qualifiers: Atrial fibrillation type: unspecified Qualified Code(s): I48.91 - Unspecified atrial fibrillation Plan: Current SR, continue Tikosyn, s/p Watchman device (6) CKD (chronic kidney disease) stage 3, GFR 30-59 ml/min Code(s): N18.3 - CHRONIC KIDNEY DISEASE, STAGE 3 (MODERATE) Status: Chronic - Plan plan discussed w/ family, PT/OT, social contact worker, respiratory therapy, out of bed/ambulate, DVT proph w/SCDs Stable currently Continue pulmonary supportive mgmt IV Iron infusion completed D/C Eliquis Start ASA in am ANNAMARIA showing Watchman device leak Lasix 40mg IV daily AM lab: BMP, CBC Outpt PT or HH with PT at d/c
[2019-09-25] MEDS ORDERED: predniSONE 20 MG TAB PO SCH (18:00)
[2019-09-25] MEDS: Rosuvastatin 10 MG TAB PO SCH (20:46)
[2019-09-25] MEDS: Lidocaine Patch Removal 1 EACH TOP SCH (21:06)
[2019-09-25] MEDS: Mag-Al 1200 mg/1200 mg/30 ML UDCUP PO PRN (22:54)
[2019-09-26] MEDS: Mag-Al 1200 mg/1200 mg/30 ML UDCUP PO PRN (04:12)
[2019-09-26 04:57] LABS: #Lymphocytes 0.7 thou/uL (1.20-3.40); #Monocytes 0.6 thou/uL (0.11-0.59); #Neutrophils 7.5 thou/uL (1.40-6.50); %Eosinophils 0.4 % (0.0-10.0); %Lymphocytes 8.3 % (21.0-51.0); %Monocytes 6.4 % (0.0-10.0); %Neutrophils 84.8 % (42.0-75.0); Hemoglobin 8.4 g/dL (14.0-18.0); Mean Corpuscular HGB CONC 30.5 g/dL (32.0-36.0); Mean Corpuscular Hemoglobin 26.1 pg (27.0-31.0); Mean Corpuscular Volume 85.6 fL (78.0-98.0); Mean Platelet Volume 7.9 fL (7.4-10.4); Platelet Count 376 thou/uL (130-400); RBC Distribution Width 17.4 % (11.5-14.5); Red Blood Cell (RBC) Count 3.22 mill/uL (4.70-6.10); White Blood Cell (WBC) Count 8.8 thou/uL (4.8-10.8)
[2019-09-26 05:14] LABS: Anion Gap 13 mmol/L (10-20); BUN (Urea Nitrogen) 28 mg/dL (8.4-25.7); Calc. Creatinine Clearance 56 mL/min (70-130); Calcium 8.3 mg/dL (7.8-10.44); Carbon Dioxide 27 mmol/L (23-31); Chloride 104 mmol/L (98-107); Estimated GFR-MDRD 53; Glucose 129 mg/dL (83-110); Potassium 4.7 mmol/L (3.5-5.1); Sodium 139 mmol/L (136-145)
[2019-09-26] MEDS ORDERED: Ondansetron PF 4 MG/2 ML Vial IVP PRN (05:23)
[2019-09-26] MEDS: Mometasone/Formoterol 120 PUFF INHALER INH SCH ×2 (08:09→18:21)
--- NOTE | 2019-09-26 09:12 | RAD ---
EXAM: Single view of the chest HISTORY: CHF and COPD COMPARISON: 09/21/2019 FINDINGS: Single view of the chest shows an enlarged but stable cardiomediastinal silhouette. Increa sed interstitial markings are present. There is no evidence of consolidation, mass, or pleural effusion. The bones are unremarkable. IMPRESSION: No evidence of acute cardiopulmonary disease
[2019-09-26] MEDS: ALPRAZolam 0.25 MG TAB PO SCH ×2 (09:21→20:31)
[2019-09-26] MEDS: Furosemide 40 MG/4 ML VIAL SLOW IVP SCH (09:21)
[2019-09-26] MEDS: Lidocaine 5% Patch TD SCH (09:21)
[2019-09-26] MEDS: Famotidine 20 MG TAB PO SCH (09:22)
[2019-09-26] MEDS: Dutasteride 0.5 MG CAP PO SCH (09:23)
[2019-09-26] MEDS: Dofetilide 0.125 MG CAP PO SCH ×2 (09:23→20:31)
[2019-09-26] MEDS: Tamsulosin HCl 0.4 MG CAP PO SCH (09:24)
[2019-09-26] MEDS: Gabapentin 100 MG CAP PO SCH ×2 (09:24→20:30)
[2019-09-26] MEDS: Acetaminophen 325 MG TAB PO PRN (09:24)
[2019-09-26] MEDS: Aspirin 81 mg Enteric Coated Tablet PO SCH ×2 (10:48→10:49)
[2019-09-26] MEDS ORDERED: Promethazine HCl 25 MG/ML VIAL SLOW IVP SCH (11:00)
[2019-09-26] MEDS: predniSONE 20 MG TAB PO SCH (11:07)
--- NOTE | 2019-09-26 12:37 | PDOC.HOSPP ---
- Subjective Encounter Date: 09/26/19 Encounter Time: 09:45 Subjective: has nausea+, no abd pain or chest pain sob+ - Objective Vital Signs & Weight: Vital Signs (12 hours) Temp Pulse Resp BP Pulse Ox 09/26/19 11:53 94 20 09/26/19 11:00 98.0 F 101 H 20 138/62 93 L 09/26/19 09:16 98.4 F 90 20 151/70 H 90 L 09/26/19 08:09 100 16 09/26/19 07:58 100 16 09/26/19 04:00 98.3 F 93 16 161/76 H 99 09/26/19 01:30 87 16 99 Weight Admit Weight 184 lb 4.8 oz Weight 188 lb 14.4 oz I&O: 09/25/19 09/26/19 09/27/19 06:59 06:59 06:59 Intake Total 1080 972 Output Total 7516 3723 Balance -090 -730 Result Diagrams: 09/26/19 04:27 09/26/19 04:27 Hospitalist ROS - Medication Medications: Active Medications Generic Name Dose Route Start Last Admin Trade Name Freq PRN Reason Stop Dose Admin Acetaminophen 650 mg 09/21/19 14:13 09/26/19 09:24 Tylenol PO 650 mg Q4H PRN Administration Headache/Fever/Mild Pain (1-3) Hydrocodone Bitart/Acetaminophen 1 tab 09/21/19 20:26 09/24/19 20:23 [place] 5/325 PO 1 tab Q4H PRN Administration Moderate Pain (4-6) Al Hydroxide/Mg Hydroxide 30 ml 09/25/19 22:22 09/26/19 04:12 Maalox PO 30 ml Q6H PRN Administration Constipation Albuterol/Ipratropium 3 ml 09/21/19 14:30 09/26/19 11:53 Duoneb NEB 3 ml [id number] SHORTY Administration Alprazolam 0.25 mg 09/21/19 21:00 09/26/19 09:21 Xanax PO 0.25 mg BID SHORTY Administration Aspirin 81 mg 09/25/19 09:00 09/26/19 10:49 Ecotrin PO Not Given DAILY SHORTY Azithromycin 500 mg 09/23/19 09:00 09/25/19 09:06 Zithromax PO 500 mg MWF SHORTY Administration Dofetilide 0.125 mg 09/21/19 21:00 09/26/19 09:23 Tikosyn PO 0.125 mg BID SHORTY Administration Dutasteride 0.5 mg 09/22/19 09:00 09/26/19 09:23 Avodart PO 0.5 mg DAILY SHORTY Administration Famotidine 20 mg 09/22/19 09:00 09/26/19 09:22 Pepcid PO 20 mg DAILY SHORTY Administration Furosemide 40 mg 09/25/19 09:00 09/26/19 09:21 Lasix SLOW IVP 40 mg DAILY SHORTY Administration Gabapentin 100 mg 09/21/19 21:00 09/26/19 09:24 Neurontin PO 100 mg BID SHORTY Administration Lidocaine 1 patch 09/22/19 09:00 09/26/19 09:21 Lidoderm 5% Patch TD 1 patch DAILY SHORTY Administration Miscellaneous Medication 1 each 09/22/19 21:00 09/25/19 21:06 Lidocaine Patch Removal TOP Not Given 2100 SHORTY Mometasone Furoate/Formoterol Fumar 2 puff 09/21/19 18:30 09/26/19 08:09 Dulera 100 Mcg/5 Mcg Inhaler INH 2 puff BID-RT SHORTY Administration Ondansetron HCl 4 mg 09/26/19 05:23 09/26/19 05:34 Zofran IVP 4 mg Q6H PRN Administration Nausea/Vomiting Prednisone 20 mg 09/26/19 08:00 09/26/19 11:07 Prednisone PO Not Given QAM-WM SHORTY Promethazine HCl 12.5 mg 09/26/19 11:00 09/26/19 11:01 Phenergan SLOW IVP 09/26/19 13:00 12.5 mg NOW SHORTY Administration Rosuvastatin Calcium 10 mg 09/21/19 21:00 09/25/19 20:46 Crestor PO 10 mg HS SHORTY Administration Sertraline HCl 50 mg 09/21/19 21:00 09/25/19 20:45 Zoloft PO 50 mg HS SHORTY Administration Sodium Chloride 10 ml 09/24/19 21:00 09/26/19 09:24 Flush - Normal Saline IVF 10 ml Q12HR SHORTY Administration Sodium Chloride 10 ml 09/24/19 09:36 09/26/19 05:34 Flush - Normal Saline IVF 10 ml PRN PRN Administration Saline Flush Tamsulosin HCl 0.4 mg 09/22/19 09:00 09/26/19 09:24 Flomax PO 0.4 mg DAILY SHORTY Administration Testosterone Cypionate 200 mg 09/23/19 09:00 09/23/19 16:20 Depo-Testosterone IM 200 mg Q10D SHORTY Administration - Exam General Appearance: NAD, awake alert Eye: PERRL, anicteric sclera ENT: no oropharyngeal lesions, moist mucosa Neck: supple, no JVD Heart: RRR, no murmur Respiratory: no wheezes, no rales Gastrointestinal: soft, non-tender, non-distended, normal bowel sounds Extremities: no cyanosis, no edema Neurological: cranial nerve grossly intact, no focal deficits Psychiatric: A&O x 3 Hosp A/P (1) Acute and chronic respiratory failure with hypoxia Code(s): J96.21 - ACUTE AND CHRONIC RESPIRATORY FAILURE WITH HYPOXIA Status: Acute (2) Acute on chronic diastolic (congestive) heart failure Code(s): I50.33 - ACUTE ON CHRONIC DIASTOLIC (CONGESTIVE) HEART FAILURE Status : Acute (3) COPD exacerbation Code(s): J44.1 - CHRONIC OBSTRUCTIVE PULMONARY DISEASE W (ACUTE) EXACERBATION Status: Acute (4) Anemia, normocytic normochromic Code(s): D64.9 - ANEMIA, UNSPECIFIED Status: Chronic (5) Anxiety and depression Code(s): F41.9 - ANXIETY DISORDER, UNSPECIFIED; F32.9 - MAJOR DEPRESSIVE DISORDER, SINGLE EPISODE, UNSPECIFIED Status: Chronic (6) Atrial fibrillation Code(s): I48.91 - UNSPECIFIED ATRIAL FIBRILLATION Status: Chronic Qualifiers: Atrial fibrillation type: unspecified Qualified Code(s): I48.91 - Unspecified atrial fibrillation (7) BPH (benign prostatic hyperplasia) Code(s): N40.0 - BENIGN PROSTATIC HYPERPLASIA WITHOUT LOWER URINRY TRACT SYMP Status: Chronic Qualifiers: Lower urinary tract symptom presence: symptoms absent Qualified Code(s): N40.0 - Benign prostatic hyperplasia without lower urinary tract symptoms (8) CKD (chronic kidney disease) stage 3, GFR 30-59 ml/min Code(s): N18.3 - CHRONIC KIDNEY DISEASE, STAGE 3 (MODERATE) Status: Chronic (9) HTN (hypertension) Code(s): I10 - ESSENTIAL (PRIMARY) HYPERTENSION Status: Chronic Qualifiers: Hypertension type: essential hypertension Qualified Code(s): I10 - Essential (primary) hypertension (10) BRAD (obstructive sleep apnea) Code(s): G47.33 - OBSTRUCTIVE SLEEP APNEA (ADULT) (PEDIATRIC) Status: Chronic (11) Physical deconditioning Code(s): R53.81 - OTHER MALAISE Status: Chronic - Plan has severe deconditioning with edema of both elbows of UE continue nebs, phenergan x1 dose, prednisone, dulera, asp, tikosyn, lasix, crestor, zoloft, avodart hemostable has multiple medical issues, palliative consultation to mobilize as tolerated with PT will need swing/rehab for dc plan
[2019-09-26] MEDS ORDERED: Mag-Al 1200 mg/1200 mg/30 ML UDCUP PO PRN (17:19)
[2019-09-26 18:08] LABS: Hemoglobin 8.6 g/dL (14.0-18.0)
[2019-09-26] MEDS: HYDROcodone/Acetaminophen 5/325 mg Tablet PO PRN (20:28)
[2019-09-26] MEDS: Rosuvastatin 10 MG TAB PO SCH (20:32)
[2019-09-26] MEDS: Lidocaine Patch Removal 1 EACH TOP SCH (20:35)
[2019-09-27 04:32] LABS: #Eosinphils 0.1 thou/uL (0.0-0.7); #Lymphocytes 0.7 thou/uL (1.20-3.40); #Monocytes 0.7 thou/uL (0.11-0.59); #Neutrophils 9.9 thou/uL (1.40-6.50); %Basophils 0.2 % (0.0-1.0); %Eosinophils 0.4 % (0.0-10.0); %Lymphocytes 6.1 % (21.0-51.0); %Monocytes 6.2 % (0.0-10.0); %Neutrophils 87.1 % (42.0-75.0); Hemoglobin 8.4 g/dL (14.0-18.0); Mean Corpuscular HGB CONC 30.9 g/dL (32.0-36.0); Mean Corpuscular Hemoglobin 26.9 pg (27.0-31.0); Mean Corpuscular Volume 86.9 fL (78.0-98.0); Mean Platelet Volume 7.8 fL (7.4-10.4); Platelet Count 327 thou/uL (130-400); RBC Distribution Width 18.1 % (11.5-14.5); Red Blood Cell (RBC) Count 3.12 mill/uL (4.70-6.10); White Blood Cell (WBC) Count 11.4 thou/uL (4.8-10.8)
[2019-09-27 05:09] LABS: Anion Gap 11 mmol/L (10-20); BUN (Urea Nitrogen) 33 mg/dL (8.4-25.7); Calc. Creatinine Clearance 59 mL/min (70-130); Carbon Dioxide 28 mmol/L (23-31); Chloride 104 mmol/L (98-107); Estimated GFR-MDRD 56; Glucose 99 mg/dL (83-110); Potassium 4.3 mmol/L (3.5-5.1); Sodium 139 mmol/L (136-145)
[2019-09-27 05:46] VITALS: BMI 27.3
[2019-09-27] MEDS: Mometasone/Formoterol 120 PUFF INHALER INH SCH ×2 (08:30→20:01)
[2019-09-27] MEDS: Aspirin 81 mg Enteric Coated Tablet PO SCH (09:36)
[2019-09-27] MEDS: Azithromycin 250 MG TAB PO SCH (09:37)
[2019-09-27] MEDS: Tamsulosin HCl 0.4 MG CAP PO SCH (09:37)
[2019-09-27] MEDS: predniSONE 20 MG TAB PO SCH (09:37)
[2019-09-27] MEDS: Dutasteride 0.5 MG CAP PO SCH (09:37)
[2019-09-27] MEDS: Lidocaine 5% Patch TD SCH (09:38)
[2019-09-27] MEDS: Gabapentin 100 MG CAP PO SCH ×2 (09:38→20:52)
[2019-09-27] MEDS: ALPRAZolam 0.25 MG TAB PO SCH ×2 (09:38→20:52)
[2019-09-27] MEDS: Furosemide 40 MG/4 ML VIAL SLOW IVP SCH (09:38)
[2019-09-27] MEDS: Dofetilide 0.125 MG CAP PO SCH ×2 (09:38→20:49)
--- NOTE | 2019-09-27 10:57 | PDOC.HOSPP ---
- Subjective Encounter Date: 09/27/19 Encounter Time: 09:35 Subjective: still has sob, no chest pain or palp at bedside has not ambulated after 4th - Objective Vital Signs & Weight: Vital Signs (12 hours) Temp Pulse Resp BP Pulse Ox 09/27/19 08:30 98 16 09/27/19 08:28 98 16 09/27/19 08:00 98.3 F 103 H 19 136/62 93 L 09/27/19 04:00 97.6 F 101 H 15 98 09/27/19 02:48 95 20 97 Weight Admit Weight 184 lb 4.8 oz Weight 185 lb I&O: 09/26/19 09/27/19 09/28/19 06:59 06:59 06:59 Intake Total 972 Output Total 1750 Balance -778 Result Diagrams: 09/27/19 03:46 09/27/19 03:46 Hospitalist ROS - Medication Medications: Active Medications Generic Name Dose Route Start Last Admin Trade Name Freq PRN Reason Stop Dose Admin Acetaminophen 650 mg 09/21/19 14:13 09/26/19 09:24 Tylenol PO 650 mg Q4H PRN Administration Headache/Fever/Mild Pain (1-3) Hydrocodone Bitart/Acetaminophen 1 tab 09/21/19 20:26 09/26/19 20:28 [place] 5/325 PO 1 tab Q4H PRN Administration Moderate Pain (4-6) Al Hydroxide/Mg Hydroxide 30 ml 09/25/19 22:22 09/26/19 04:12 Maalox PO 30 ml Q6H PRN Administration Constipation Al Hydroxide/Mg Hydroxide 15 ml 09/26/19 17:19 09/26/19 18:03 Maalox PO 15 ml Q6H PRN Administration Heartburn or Indigestion Albuterol/Ipratropium 3 ml 09/21/19 14:30 09/27/19 08:28 Duoneb NEB 3 ml [id number] SHORTY Administration Alprazolam 0.25 mg 09/21/19 21:00 09/27/19 09:38 Xanax PO 0.25 mg BID SHORTY Administration Aspirin 81 mg 09/25/19 09:00 09/27/19 09:36 Ecotrin PO 81 mg DAILY SHORTY Administration Azithromycin 500 mg 09/23/19 09:00 09/27/19 09:37 Zithromax PO 500 mg MWF SHORTY Administration Dofetilide 0.125 mg 09/21/19 21:00 09/27/19 09:38 Tikosyn PO 0.125 mg BID SHORTY Administration Dutasteride 0.5 mg 09/22/19 09:00 09/27/19 09:37 Avodart PO 0.5 mg DAILY SHORTY Administration Gabapentin 100 mg 09/21/19 21:00 09/27/19 09:38 Neurontin PO 100 mg BID SHORTY Administration Lidocaine 1 patch 09/22/19 09:00 09/27/19 09:38 Lidoderm 5% Patch TD 1 patch DAILY SHORTY Administration Miscellaneous Medication 1 each 09/22/19 21:00 09/26/19 20:35 Lidocaine Patch Removal TOP Not Given 2100 SHORTY Mometasone Furoate/Formoterol Fumar 2 puff 09/21/19 18:30 09/27/19 08:30 Dulera 100 Mcg/5 Mcg Inhaler INH 2 puff BID-RT SHORTY Administration Ondansetron HCl 4 mg 09/26/19 05:23 09/26/19 05:34 Zofran IVP 4 mg Q6H PRN Administration Nausea/Vomiting Pantoprazole Sodium 40 mg 09/26/19 21:00 09/27/19 09:36 Protonix PO 40 mg BID SHORTY Administration Prednisone 20 mg 09/26/19 08:00 09/27/19 09:37 Prednisone PO Not Given QAM-WM SHORTY Rosuvastatin Calcium 10 mg 09/21/19 21:00 09/26/19 20:32 Crestor PO 10 mg HS SHORTY Administration Sertraline HCl 50 mg 09/21/19 21:00 09/26/19 20:29 Zoloft PO 50 mg HS SHORTY Administration Sodium Chloride 10 ml 09/24/19 21:00 09/27/19 09:39 Flush - Normal Saline IVF 10 ml Q12HR SHORTY Administration Sodium Chloride 10 ml 09/24/19 09:36 09/26/19 05:34 Flush - Normal Saline IVF 10 ml PRN PRN Administration Saline Flush Tamsulosin HCl 0.4 mg 09/22/19 09:00 09/27/19 09:37 Flomax PO 0.4 mg DAILY SHORTY Administration Testosterone Cypionate 200 mg 09/23/19 09:00 09/23/19 16:20 Depo-Testosterone IM 200 mg Q10D SHORTY Administration - Exam General Appearance: awake alert Eye: PERRL, anicteric sclera ENT: no oropharyngeal lesions, dry oral mucosa Neck: supple, no JVD Heart: no murmur, no gallops Respiratory: no rales, rhonchi Gastrointestinal: soft, non-tender, non-distended, normal bowel sounds Extremities: no cyanosis, no edema Neurological: cranial nerve grossly intact, no focal deficits Psychiatric: normal affect, A&O x 3 Hosp A/P (1) Acute and chronic respiratory failure with hypoxia Code(s): J96.21 - ACUTE AND CHRONIC RESPIRATORY FAILURE WITH HYPOXIA Status: Acute (2) Acute on chronic diastolic (congestive) heart failure Code(s): I50.33 - ACUTE ON CHRONIC DIASTOLIC (CONGESTIVE) HEART FAILURE Status : Acute (3) COPD exacerbation Code(s): J44.1 - CHRONIC OBSTRUCTIVE PULMONARY DISEASE W (ACUTE) EXACERBATION Status: Acute (4) Anemia, normocytic normochromic Code(s): D64.9 - ANEMIA, UNSPECIFIED Status: Chronic (5) Anxiety and depression Code(s): F41.9 - ANXIETY DISORDER, UNSPECIFIED; F32.9 - MAJOR DEPRESSIVE DISORDER, SINGLE EPISODE, UNSPECIFIED Status: Chronic (6) Atrial fibrillation Code(s): I48.91 - UNSPECIFIED ATRIAL FIBRILLATION Status: Chronic Qualifiers: Atrial fibrillation type: unspecified Qualified Code(s): I48.91 - Unspecified atrial fibrillation (7) BPH (benign prostatic hyperplasia) Code(s): N40.0 - BENIGN PROSTATIC HYPERPLASIA WITHOUT LOWER URINRY TRACT SYMP Status: Chronic Qualifiers: Lower urinary tract symptom presence: symptoms absent Qualified Code(s): N40.0 - Benign prostatic hyperplasia without lower urinary tract symptoms (8) CKD (chronic kidney disease) stage 3, GFR 30-59 ml/min Code(s): N18.3 - CHRONIC KIDNEY DISEASE, STAGE 3 (MODERATE) Status: Chronic (9) HTN (hypertension) Code(s): I10 - ESSENTIAL (PRIMARY) HYPERTENSION Status: Chronic Qualifiers: Hypertension type: essential hypertension Qualified Code(s): I10 - Essential (primary) hypertension (10) BRAD (obstructive sleep apnea) Code(s): G47.33 - OBSTRUCTIVE SLEEP APNEA (ADULT) (PEDIATRIC) Status: Chronic (11) Physical deconditioning Code(s): R53.81 - OTHER MALAISE Status: Chronic - Plan has severe deconditioning with edema of both elbows of UE continue nebs, prednisone, dulera, asp, tikosyn, lasix, crestor, zoloft, avodart cxr shows no infiltrate or congestion hemostable has multiple medical issues, palliative consultation to mobilize as tolerated with PT will need swing/rehab for dc plan transfer to medical floor if ok with cardio
[2019-09-27] MEDS: HYDROcodone/Acetaminophen 5/325 mg Tablet PO PRN (20:34)
[2019-09-27] MEDS: Rosuvastatin 10 MG TAB PO SCH (20:51)
[2019-09-27] MEDS: Lidocaine Patch Removal 1 EACH TOP SCH (20:57)
[2019-09-28] MEDS: Mometasone/Formoterol 120 PUFF INHALER INH SCH ×2 (07:44→19:05)
[2019-09-28] MEDS: Dutasteride 0.5 MG CAP PO SCH (09:05)
[2019-09-28] MEDS: Lidocaine 5% Patch TD SCH (09:05)
[2019-09-28] MEDS: ALPRAZolam 0.25 MG TAB PO SCH ×2 (09:05→21:41)
[2019-09-28] MEDS: predniSONE 20 MG TAB PO SCH (09:06)
[2019-09-28] MEDS: Dofetilide 0.125 MG CAP PO SCH ×2 (09:06→21:41)
[2019-09-28] MEDS: Aspirin 81 mg Enteric Coated Tablet PO SCH (09:06)
[2019-09-28] MEDS: Tamsulosin HCl 0.4 MG CAP PO SCH (09:06)
[2019-09-28] MEDS: Gabapentin 100 MG CAP PO SCH ×2 (09:07→21:41)
[2019-09-28] MEDS: Furosemide 40 MG TAB PO SCH (09:07)
--- NOTE | 2019-09-28 15:56 | PDOC.HOSPP ---
- Subjective Encounter Date: 09/28/19 Encounter Time: 08:45 Subjective: had trouble breathing this am (cpap was disconnected?), feels better now, spo2 is good now at bedside has not ambulated today exercised on bed and stood up yesterday per patient - Objective Vital Signs & Weight: Vital Signs (12 hours) Temp Pulse Resp BP Pulse Ox 09/28/19 14:48 91 18 99 09/28/19 09:54 93 20 100 09/28/19 08:00 98.2 F 95 20 135/79 99 09/28/19 07:42 99 18 99 09/28/19 04:00 97.7 F 89 18 128/66 98 Weight Admit Weight 184 lb 4.8 oz Weight 185 lb I&O: 09/27/19 09/28/19 09/29/19 06:59 06:59 06:59 Output Total 500 Balance -500 Result Diagrams: 09/27/19 03:46 09/27/19 03:46 Hospitalist ROS - Medication Medications: Active Medications Generic Name Dose Route Start Last Admin Trade Name Freq PRN Reason Stop Dose Admin Acetaminophen 650 mg 09/21/19 14:13 09/26/19 09:24 Tylenol PO 650 mg Q4H PRN Administration Headache/Fever/Mild Pain (1-3) Hydrocodone Bitart/Acetaminophen 1 tab 09/21/19 20:26 09/27/19 20:34 [place] 5/325 PO 1 tab Q4H PRN Administration Moderate Pain (4-6) Al Hydroxide/Mg Hydroxide 30 ml 09/25/19 22:22 09/26/19 04:12 Maalox PO 30 ml Q6H PRN Administration Constipation Al Hydroxide/Mg Hydroxide 15 ml 09/26/19 17:19 09/26/19 18:03 Maalox PO 15 ml Q6H PRN Administration Heartburn or Indigestion Albuterol/Ipratropium 3 ml 09/21/19 14:30 09/28/19 14:48 Duoneb NEB 3 ml [id number] SHORTY Administration Alprazolam 0.25 mg 09/21/19 21:00 09/28/19 09:05 Xanax PO Not Given BID SHORTY Aspirin 81 mg 09/25/19 09:00 09/28/19 09:06 Ecotrin PO 81 mg DAILY SHORTY Administration Azithromycin 500 mg 09/23/19 09:00 09/27/19 09:37 Zithromax PO 500 mg MWF SHORTY Administration Dofetilide 0.125 mg 09/21/19 21:00 09/28/19 09:06 Tikosyn PO 0.125 mg BID SHORTY Administration Dutasteride 0.5 mg 09/22/19 09:00 09/28/19 09:05 Avodart PO 0.5 mg DAILY SHORTY Administration Furosemide 40 mg 09/28/19 09:00 09/28/19 09:07 Lasix PO 40 mg DAILY SHORTY Administration Gabapentin 100 mg 09/21/19 21:00 09/28/19 09:07 Neurontin PO 100 mg BID SHORTY Administration Lidocaine 1 patch 09/22/19 09:00 09/28/19 09:05 Lidoderm 5% Patch TD 1 patch DAILY SHORTY Administration Miscellaneous Medication 1 each 09/22/19 21:00 09/27/19 20:57 Lidocaine Patch Removal TOP 1 each 2100 SHORTY Administration Mometasone Furoate/Formoterol Fumar 2 puff 09/21/19 18:30 09/28/19 07:44 Dulera 100 Mcg/5 Mcg Inhaler INH 2 puff BID-RT SHORTY Administration Ondansetron HCl 4 mg 09/26/19 05:23 09/26/19 05:34 Zofran IVP 4 mg Q6H PRN Administration Nausea/Vomiting Pantoprazole Sodium 40 mg 09/26/19 21:00 09/28/19 09:07 Protonix PO 40 mg BID SHORTY Administration Prednisone 20 mg 09/26/19 08:00 09/28/19 09:06 Prednisone PO 20 mg QAM-WM SHORTY Administration Rosuvastatin Calcium 10 mg 09/21/19 21:00 09/27/19 20:51 Crestor PO 10 mg HS SHORTY Administration Sertraline HCl 50 mg 09/21/19 21:00 09/27/19 20:49 Zoloft PO 50 mg HS SHORTY Administration Sodium Chloride 10 ml 09/24/19 21:00 09/28/19 09:07 Flush - Normal Saline IVF 10 ml Q12HR SHORTY Administration Sodium Chloride 10 ml 09/24/19 09:36 09/26/19 05:34 Flush - Normal Saline IVF 10 ml PRN PRN Administration Saline Flush Tamsulosin HCl 0.4 mg 09/22/19 09:00 09/28/19 09:06 Flomax PO 0.4 mg DAILY SHORTY Administration Testosterone Cypionate 200 mg 09/23/19 09:00 09/23/19 16:20 Depo-Testosterone IM 200 mg Q10D SHORTY Administration - Exam General Appearance: awake alert, ill appearing Eye: PERRL, anicteric sclera ENT: no oropharyngeal lesions, dry oral mucosa Neck: supple, no JVD Heart: no murmur, no gallops, irregular Respiratory: no wheezes, no rales, rhonchi Gastrointestinal: soft, non-tender, non-distended, normal bowel sounds Gastrointestinal - other findings: dependent edema on torso, elbows Extremities: no cyanosis, 1+ LE edema Neurological: cranial nerve grossly intact, no focal deficits Psychiatric: A&O x 3 Hosp A/P (1) Acute and chronic respiratory failure with hypoxia Code(s): J96.21 - ACUTE AND CHRONIC RESPIRATORY FAILURE WITH HYPOXIA Status: Acute (2) Acute on chronic diastolic (congestive) heart failure Code(s): I50.33 - ACUTE ON CHRONIC DIASTOLIC (CONGESTIVE) HEART FAILURE Status : Acute (3) COPD exacerbation Code(s): J44.1 - CHRONIC OBSTRUCTIVE PULMONARY DISEASE W (ACUTE) EXACERBATION Status: Acute (4) Anemia, normocytic normochromic Code(s): D64.9 - ANEMIA, UNSPECIFIED Status: Chronic (5) Anxiety and depression Code(s): F41.9 - ANXIETY DISORDER, UNSPECIFIED; F32.9 - MAJOR DEPRESSIVE DISORDER, SINGLE EPISODE, UNSPECIFIED Status: Chronic (6) Atrial fibrillation Code(s): I48.91 - UNSPECIFIED ATRIAL FIBRILLATION Status: Chronic Qualifiers: Atrial fibrillation type: unspecified Qualified Code(s): I48.91 - Unspecified atrial fibrillation (7) BPH (benign prostatic hyperplasia) Code(s): N40.0 - BENIGN PROSTATIC HYPERPLASIA WITHOUT LOWER URINRY TRACT SYMP Status: Chronic Qualifiers: Lower urinary tract symptom presence: symptoms absent Qualified Code(s): N40.0 - Benign prostatic hyperplasia without lower urinary tract symptoms (8) CKD (chronic kidney disease) stage 3, GFR 30-59 ml/min Code(s): N18.3 - CHRONIC KIDNEY DISEASE, STAGE 3 (MODERATE) Status: Chronic (9) HTN (hypertension) Code(s): I10 - ESSENTIAL (PRIMARY) HYPERTENSION Status: Chronic Qualifiers: Hypertension type: essential hypertension Qualified Code(s): I10 - Essential (primary) hypertension (10) BRAD (obstructive sleep apnea) Code(s): G47.33 - OBSTRUCTIVE SLEEP APNEA (ADULT) (PEDIATRIC) Status: Chronic (11) Physical deconditioning Code(s): R53.81 - OTHER MALAISE Status: Chronic - Plan got po lasix in am, will give one dose iv as well. has severe deconditioning with edema of both elbows of UE, torso, has not ambulated. continue nebs, prednisone, dulera, asp, tikosyn, lasix, crestor, zoloft, avodart cxr shows no infiltrate or congestion hemostable has multiple medical issues, palliative consultation, likely has end stage copd , ?palliative care/hospice to mobilize as tolerated with PT, oob to chair will need swing/rehab for dc plan d/w will see him in am, not sure if he is a candidate for noctural ambulatory vent. Poor prognosis
[2019-09-28] MEDS ORDERED: Furosemide 40 MG/4 ML VIAL SLOW IVP SCH (17:00)
[2019-09-28] MEDS: Rosuvastatin 10 MG TAB PO SCH (21:41)
[2019-09-28] MEDS: HYDROcodone/Acetaminophen 5/325 mg Tablet PO PRN (21:42)
[2019-09-28] MEDS: Lidocaine Patch Removal 1 EACH TOP SCH (21:44)
[2019-09-29 06:23] LABS: #Monocytes 0.6 thou/uL (0.11-0.59); #Neutrophils 4.6 thou/uL (1.40-6.50); %Basophils 0.1 % (0.0-1.0); %Eosinophils 0.4 % (0.0-10.0); %Lymphocytes 15.4 % (21.0-51.0); %Neutrophils 75.1 % (42.0-75.0); Hemoglobin 7.5 g/dL (14.0-18.0); Mean Corpuscular HGB CONC 31.1 g/dL (32.0-36.0); Mean Corpuscular Hemoglobin 26.8 pg (27.0-31.0); Mean Corpuscular Volume 86.2 fL (78.0-98.0); Mean Platelet Volume 8.2 fL (7.4-10.4); Platelet Count 221 thou/uL (130-400); RBC Distribution Width 17.4 % (11.5-14.5); Red Blood Cell (RBC) Count 2.79 mill/uL (4.70-6.10); White Blood Cell (WBC) Count 6.2 thou/uL (4.8-10.8)
[2019-09-29] MEDS: Mometasone/Formoterol 120 PUFF INHALER INH SCH ×2 (07:01→18:37)
[2019-09-29 07:02] LABS: ALT (SGPT) 15 U/L (8-55); AST (SGOT) 18 U/L (5-34); Albumin 2.8 g/dL (3.4-4.8); Alkaline Phosphatase 98 U/L (40-110); Anion Gap 9 mmol/L (10-20); BUN (Urea Nitrogen) 36 mg/dL (8.4-25.7); Bilirubin, Total 0.3 mg/dL (0.2-1.2); Calc. Creatinine Clearance 63 mL/min (70-130); Carbon Dioxide 31 mmol/L (23-31); Chloride 102 mmol/L (98-107); Estimated GFR-MDRD 63; Globulin 2.1 g/dL (2.4-3.5); Glucose 134 mg/dL (83-110); Potassium 3.8 mmol/L (3.5-5.1); Protein, Total 4.9 g/dL (5.8-8.1); Sodium 138 mmol/L (136-145)
[2019-09-29] MEDS: predniSONE 20 MG TAB PO SCH (08:05)
[2019-09-29] MEDS: Dofetilide 0.125 MG CAP PO SCH ×2 (08:05→20:45)
[2019-09-29] MEDS: Lidocaine 5% Patch TD SCH (08:05)
[2019-09-29] MEDS: Aspirin 81 mg Enteric Coated Tablet PO SCH (08:05)
[2019-09-29] MEDS: Furosemide 40 MG TAB PO SCH (08:05)
[2019-09-29] MEDS: Gabapentin 100 MG CAP PO SCH ×2 (08:05→20:45)
[2019-09-29] MEDS: Dutasteride 0.5 MG CAP PO SCH (08:05)
[2019-09-29] MEDS: ALPRAZolam 0.25 MG TAB PO SCH ×2 (08:06→20:46)
[2019-09-29] MEDS: Tamsulosin HCl 0.4 MG CAP PO SCH (08:06)
[2019-09-29 13:31] LABS: Actual Bicarbonate (HCO3a) 29.5 mEq/L (22-28); Base Excess (BEa) 4.8 mEq/L (-2.0 to +3.0); CO2 Tension 44.4 mmHg (35.0-45.0); Calcium, Ionized 1.08 mmol/L (1.12-1.30); Carboxyhemoglobin (COHb) 1.2 gm% (0.0-3.0); Hemoglobin (Hb) 8.5 g/dL (14.0-18.0); pH, Arterial 7.44 (7.35-7.45)
[2019-09-29 13:33] LABS: O2 Tension (PaO2) 59.4 mmHg (> 70.0); Puncture Site RRA
--- NOTE | 2019-09-29 15:53 | PDOC.HOSPP ---
- Subjective Encounter Date: 09/29/19 Encounter Time: 08:45 Subjective: breathing better this morning at bedside ate his breakfast, slept better last night has stood up, sat in chair and amb few steps with PT - Objective Vital Signs & Weight: Vital Signs (12 hours) Temp Pulse Resp BP Pulse Ox 09/29/19 13:53 92 16 09/29/19 10:48 91 16 09/29/19 08:00 94 L 09/29/19 07:33 97.2 F L 83 20 110/67 94 L 09/29/19 07:01 80 16 Weight Admit Weight 184 lb 4.8 oz Weight 185 lb I&O: 09/28/19 09/29/19 09/30/19 06:59 06:59 06:59 Output Total 500 Balance -500 Result Diagrams: 09/29/19 05:55 09/29/19 05:55 Hospitalist ROS - Medication Medications: Active Medications Generic Name Dose Route Start Last Admin Trade Name Freq PRN Reason Stop Dose Admin Acetaminophen 650 mg 09/21/19 14:13 09/26/19 09:24 Tylenol PO 650 mg Q4H PRN Administration Headache/Fever/Mild Pain (1-3) Hydrocodone Bitart/Acetaminophen 1 tab 09/21/19 20:26 09/28/19 21:42 [place] 5/325 PO 1 tab Q4H PRN Administration Moderate Pain (4-6) Al Hydroxide/Mg Hydroxide 30 ml 09/25/19 22:22 09/26/19 04:12 Maalox PO 30 ml Q6H PRN Administration Constipation Al Hydroxide/Mg Hydroxide 15 ml 09/26/19 17:19 09/26/19 18:03 Maalox PO 15 ml Q6H PRN Administration Heartburn or Indigestion Albuterol/Ipratropium 3 ml 09/21/19 14:30 09/29/19 13:53 Duoneb NEB 3 ml [id number] SHORTY Administration Alprazolam 0.25 mg 09/21/19 21:00 09/29/19 08:06 Xanax PO Not Given BID SHORTY Aspirin 81 mg 09/25/19 09:00 09/29/19 08:05 Ecotrin PO 81 mg DAILY SHORTY Administration Azithromycin 500 mg 09/23/19 09:00 09/27/19 09:37 Zithromax PO 500 mg MWF SHORTY Administration Dofetilide 0.125 mg 09/21/19 21:00 09/29/19 08:05 Tikosyn PO 0.125 mg BID SHORTY Administration Dutasteride 0.5 mg 09/22/19 09:00 09/29/19 08:05 Avodart PO 0.5 mg DAILY SHORTY Administration Furosemide 40 mg 09/28/19 09:00 09/29/19 08:05 Lasix PO 40 mg DAILY SHORTY Administration Gabapentin 100 mg 09/21/19 21:00 09/29/19 08:05 Neurontin PO 100 mg BID SHORTY Administration Lidocaine 1 patch 09/22/19 09:00 09/29/19 08:05 Lidoderm 5% Patch TD 1 patch DAILY SHORTY Administration Miscellaneous Medication 1 each 09/22/19 21:00 09/28/19 21:44 Lidocaine Patch Removal TOP 1 each 2100 SHORTY Administration Mometasone Furoate/Formoterol Fumar 2 puff 09/21/19 18:30 09/29/19 07:01 Dulera 100 Mcg/5 Mcg Inhaler INH 2 puff BID-RT SHORTY Administration Ondansetron HCl 4 mg 09/26/19 05:23 09/26/19 05:34 Zofran IVP 4 mg Q6H PRN Administration Nausea/Vomiting Pantoprazole Sodium 40 mg 09/26/19 21:00 09/29/19 08:05 Protonix PO 40 mg BID SHORTY Administration Prednisone 20 mg 09/26/19 08:00 09/29/19 08:05 Prednisone PO 20 mg QAM-WM SHORTY Administration Rosuvastatin Calcium 10 mg 09/21/19 21:00 09/28/19 21:41 Crestor PO 10 mg HS SHORTY Administration Sertraline HCl 50 mg 09/21/19 21:00 09/28/19 21:42 Zoloft PO 50 mg HS SHORTY Administration Sodium Chloride 10 ml 09/24/19 21:00 09/29/19 08:06 Flush - Normal Saline IVF 10 ml Q12HR SHORTY Administration Sodium Chloride 10 ml 09/24/19 09:36 09/26/19 05:34 Flush - Normal Saline IVF 10 ml PRN PRN Administration Saline Flush Tamsulosin HCl 0.4 mg 09/22/19 09:00 09/29/19 08:06 Flomax PO 0.4 mg DAILY SHORTY Administration Testosterone Cypionate 200 mg 09/23/19 09:00 09/23/19 16:20 Depo-Testosterone IM 200 mg Q10D SHORTY Administration - Exam General Appearance: awake alert Eye: PERRL, anicteric sclera ENT: no oropharyngeal lesions, moist mucosa Neck: supple, no JVD Heart: RRR, no murmur Respiratory: no wheezes, no rales, rhonchi Gastrointestinal: soft, non-tender, non-distended, normal bowel sounds Gastrointestinal - other findings: has dependent edema on torso, both elbows and post thighs Extremities: no cyanosis, 1+ LE edema Neurological: cranial nerve grossly intact, no focal deficits Psychiatric: normal affect, A&O x 3 Hosp A/P (1) Acute and chronic respiratory failure with hypoxia Code(s): J96.21 - ACUTE AND CHRONIC RESPIRATORY FAILURE WITH HYPOXIA Status: Acute (2) Acute on chronic diastolic (congestive) heart failure Code(s): I50.33 - ACUTE ON CHRONIC DIASTOLIC (CONGESTIVE) HEART FAILURE Status : Acute (3) COPD exacerbation Code(s): J44.1 - CHRONIC OBSTRUCTIVE PULMONARY DISEASE W (ACUTE) EXACERBATION Status: Acute (4) Anemia, normocytic normochromic Code(s): D64.9 - ANEMIA, UNSPECIFIED Status: Chronic (5) Anxiety and depression Code(s): F41.9 - ANXIETY DISORDER, UNSPECIFIED; F32.9 - MAJOR DEPRESSIVE DISORDER, SINGLE EPISODE, UNSPECIFIED Status: Chronic (6) Atrial fibrillation Code(s): I48.91 - UNSPECIFIED ATRIAL FIBRILLATION Status: Chronic Qualifiers: Atrial fibrillation type: unspecified Qualified Code(s): I48.91 - Unspecified atrial fibrillation (7) BPH (benign prostatic hyperplasia) Code(s): N40.0 - BENIGN PROSTATIC HYPERPLASIA WITHOUT LOWER URINRY TRACT SYMP Status: Chronic Qualifiers: Lower urinary tract symptom presence: symptoms absent Qualified Code(s): N40.0 - Benign prostatic hyperplasia without lower urinary tract symptoms (8) CKD (chronic kidney disease) stage 3, GFR 30-59 ml/min Code(s): N18.3 - CHRONIC KIDNEY DISEASE, STAGE 3 (MODERATE) Status: Chronic (9) HTN (hypertension) Code(s): I10 - ESSENTIAL (PRIMARY) HYPERTENSION Status: Chronic Qualifiers: Hypertension type: essential hypertension Qualified Code(s): I10 - Essential (primary) hypertension (10) BRAD (obstructive sleep apnea) Code(s): G47.33 - OBSTRUCTIVE SLEEP APNEA (ADULT) (PEDIATRIC) Status: Chronic (11) Physical deconditioning Code(s): R53.81 - OTHER MALAISE Status: Chronic - Plan got 2 doses of lasix yesterday and feels better this am, is on oral daily lasix. has severe deconditioning with edema of both elbows of UE, torso. 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 Poor prognosis ABG shows pO2 of around 59, pC02 of 44 on 38% fio2 NNEKA due to diuresis is stabilizing?
--- NOTE | 2019-09-29 16:05 | PDOC.CPN ---
- Subjective Date: 09/29/19 Time: 15:35 Interval history: Patient awake, sitting up in chair at bedside. Feeling better today, got out of bed with standby assist only with PT, feels stronger. Ambulated in room. Feels like his breathing has improved. Denies any further nausea or vomiting, denies hemoptysis. - Review of Systems Respiratory: reports: cough, shortness of breath - Objective Allergies/Adverse Reactions: Allergies Allergy/AdvReac Type Severity Reaction Status Date / Time adhesive Allergy Verified 09/21/19 17:32 Visit Medications: Current Medications Acetaminophen (Tylenol) 650 mg PO Q4H PRN PRN Reason: Headache/Fever/Mild Pain (1-3) Last Admin: 09/26/19 09:24 Dose: 650 mg Hydrocodone Bitart/Acetaminophen ([place] 5/325) 1 tab PO Q4H PRN PRN Reason: Moderate Pain (4-6) Last Admin: 09/28/19 21:42 Dose: 1 tab Al Hydroxide/Mg Hydroxide (Maalox) 30 ml PO Q6H PRN PRN Reason: Constipation Last Admin: 09/26/19 04:12 Dose: 30 ml Al Hydroxide/Mg Hydroxide (Maalox) 15 ml PO Q6H PRN PRN Reason: Heartburn or Indigestion Last Admin: 09/26/19 18:03 Dose: 15 ml Albuterol/Ipratropium (Duoneb) 3 ml NEB [id number] [facility] Last Admin: 09/29/19 13:53 Dose: 3 ml Alprazolam (Xanax) 0.25 mg PO BID [facility] Last Admin: 09/29/19 08:06 Dose: Not Given Aspirin (Ecotrin) 81 mg PO DAILY [facility] Last Admin: 09/29/19 08:05 Dose: 81 mg Azithromycin (Zithromax) 500 mg PO MWF [facility] Last Admin: 09/27/19 09:37 Dose: 500 mg Bisacodyl (Dulcolax) 10 mg OR DAILYPRN PRN PRN Reason: Constipation Dofetilide (Tikosyn) 0.125 mg PO BID [facility] Last Admin: 09/29/19 08:05 Dose: 0.125 mg Dutasteride (Avodart) 0.5 mg PO DAILY [facility] Last Admin: 09/29/19 08:05 Dose: 0.5 mg Furosemide (Lasix) 40 mg PO DAILY [facility] Last Admin: 09/29/19 08:05 Dose: 40 mg Gabapentin (Neurontin) 100 mg PO BID [facility] Last Admin: 09/29/19 08:05 Dose: 100 mg Guaifenesin/Dextromethorphan (Robitussin Dm) 15 ml PO Q4H PRN PRN Reason: Cough Lidocaine (Lidoderm 5% Patch) 1 patch TD DAILY [facility] Last Admin: 09/29/19 08:05 Dose: 1 patch Miscellaneous Medication (Lidocaine Patch Removal) 1 each TOP 2100 [facility] Last Admin: 09/28/19 21:44 Dose: 1 each Mometasone Furoate/Formoterol Fumar (Dulera 100 Mcg/5 Mcg Inhaler) 2 puff INH BID-RT [facility] Last Admin: 09/29/19 07:01 Dose: 2 puff Morphine Sulfate (Morphine) 2 mg SLOW IVP Q4H PRN PRN Reason: Severe Pain (7-10) Ondansetron HCl (Zofran) 4 mg IVP Q6H PRN PRN Reason: Nausea/Vomiting Last Admin: 09/26/19 05:34 Dose: 4 mg Pantoprazole Sodium (Protonix) 40 mg PO BID [facility] Last Admin: 09/29/19 08:05 Dose: 40 mg Roflumilast [ (Daliresp] 250 Mcg) 0 each PO DAILY [facility] Prednisone (Prednisone) 20 mg PO QAM-WM [facility] Last Admin: 09/29/19 08:05 Dose: 20 mg Rosuvastatin Calcium (Crestor) 10 mg PO HS [facility] Last Admin: 09/28/19 21:41 Dose: 10 mg Senna/Docusate Sodium (Senokot S) 2 tab PO BIDPRN PRN PRN Reason: Constipation Sertraline HCl (Zoloft) 50 mg PO HS [facility] Last Admin: 09/28/19 21:42 Dose: 50 mg Sodium Chloride (Flush - Normal Saline) 10 ml IVF Q12HR [facility] Last Admin: 09/29/19 08:06 Dose: 10 ml Sodium Chloride (Flush - Normal Saline) 10 ml IVF PRN PRN PRN Reason: Saline Flush Last Admin: 09/26/19 05:34 Dose: 10 ml Tamsulosin HCl (Flomax) 0.4 mg PO DAILY [facility] Last Admin: 09/29/19 08:06 Dose: 0.4 mg Testosterone Cypionate (Depo-Testosterone) 200 mg IM Q10D SHORTY Last Admin: 09/23/19 16:20 Dose: 200 mg Vital Signs & Weight: Vital Signs Temp Pulse Resp BP Pulse Ox 09/29/19 13:53 92 16 09/29/19 10:48 91 16 09/29/19 08:00 94 L 09/29/19 07:33 97.2 F L 83 20 110/67 94 L 09/29/19 07:01 80 16 Admit Weight 184 lb 4.8 oz Weight 185 lb - Physical Exam General: appears well HEENT: mucus membranes moist, normocephaly Neck: supple neck, no JVD/HJR Cardiac: regular rate and rhythm, no murmur, S1/S2 Lungs: clear to auscultation, normal breath sounds, no wheeze, rales, rhonchi, oxygen Abdomen: unremarkable, active bowel sounds, soft, non-tender Extremities: no edema (edema to UE elbows, improved) Musculoskeletal: normal range of motion - Labs Result Diagrams: 09/29/19 05:55 09/29/19 05:55 Troponin/CKMB Troponin I 0.030 ng/mL (< 0.028) H 09/21/19 19:17 - Assessment/Plan Assessment/Plan: 1. Diastolic HF, acute on chronic 2. COPD 3. Paroxysmal AFib 4. Anemia 5. Previous Watchman placement Volume status stable, appears euvolemic. Cannot tolerate OAC, continue to hold Eliquis. ANNAMARIA shows 2.2mm leak to Watchman, s/p coil closure, will continue ASA 81mg. Multiple medical issue, end-stage COPD. Continue pulmonary toilet, increase mobilization. Okay to swing/rehab from cardiology standpoint on current medications.
[2019-09-29] MEDS: HYDROcodone/Acetaminophen 5/325 mg Tablet PO PRN (20:45)
[2019-09-29] MEDS: Rosuvastatin 10 MG TAB PO SCH (20:45)
[2019-09-29] MEDS: Lidocaine Patch Removal 1 EACH TOP SCH (20:46)
--- NOTE | 2019-09-30 02:08 | CON ---
DATE OF CONSULTATION: HISTORY OF PRESENT ILLNESS: Bin Mart is a 78-year-old male who has been in the hospital since the . I was consulted today because of his presence in the hospital. Actually, I was called by the hospitalist yesterday afternoon late and told me he was in the hospital. He has a long history of COPD, deconditioning, atrial fibrillation, and diastolic cardiomyopathy. I do not see where we were consulted, but he says the nurses told him a week ago that we were consulted. No record of this being called to the office. He has a Watchman device in place. He is in sinus rhythm. His says that 2 days ago he looked like he is going to , but he looks better today. PAST MEDICAL HISTORY: Remarkable for: 1. COPD. 2. Deconditioning. I was surprised for him to tell me that he has been aggressively exercising. We had multiple conversations in the office about this. I think actually his ability to exercise is probably kept him from dying recently. 3. History of extensive EP evaluations. 4. History of multiple stays in rehab. 5. He is actually requesting to go back to [place] because he thinks he gets the best care down there. 6. History of admission by me in February of 2019 for shortness of breath when he was seen in the office. 7. History of severe anemia that led to an episode of syncope over at the physician center. 8. History of blood loss anemia. 9. History of atrial flutter ablation in the past. 10. 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 11. Chronic kidney disease. 12. Chronic anticoagulation with prophylactic dose Eliquis. This apparently has been stopped. FAMILY HISTORY: Negative for lung disease in early age. SOCIAL HISTORY: He is currently not smoking, not drinking. REVIEW OF SYSTEMS: Ten points otherwise negative. He feels like he is stable enough to go to rehab at this point in time. PHYSICAL EXAMINATION: VITAL SIGNS: He is afebrile, heart rate 68, appears to be in a regular rhythm. He is not in a monitored bed. His respiratory rate is 18, oximetry is 93% on a nasal cannula. Blood pressure 130/71. HEENT: Pupils are equal, sclerae is anicteric. NECK: Supple. No lymphadenopathy. LUNGS: Clear. HEART: Regular rhythm. S1 and S2 are normal. Grade 1 to 2/6 systolic murmur. ABDOMEN: Soft and nontender. EXTREMITIES: Without clubbing, cyanosis, or edema. His upper extremities surprisingly have a little may be 1+ edema, but lower extremities have none. NEUROLOGICAL: Nonfocal. DIAGNOSTIC DATA: Chest x-ray done on the , shows no infiltrates. IMPRESSION: 1. Chronic obstructive pulmonary disease exacerbation. 2. Deconditioning. 3. Atrial fibrillation. 4. Obesity. PLAN: Apparently, he is ready for discharge. I really very little to add to his management. Reviewing his orders, I cannot really recommend any changes since he looks good today. I am not sure the testosterone is going to add anything to his ability to recover from this. Job ID: [id number]
[2019-09-30] MEDS: Mometasone/Formoterol 120 PUFF INHALER INH SCH ×2 (07:19→18:08)
[2019-09-30] MEDS ORDERED: Furosemide 20 MG/2 ML VIAL SLOW IVP SCH ×2 (09:30→22:15)
[2019-09-30] MEDS: Dofetilide 0.125 MG CAP PO SCH ×2 (10:05→19:16)
[2019-09-30] MEDS: Azithromycin 250 MG TAB PO SCH (10:05)
[2019-09-30] MEDS: Tamsulosin HCl 0.4 MG CAP PO SCH (10:06)
[2019-09-30] MEDS: Furosemide 40 MG TAB PO SCH (10:06)
[2019-09-30] MEDS: predniSONE 20 MG TAB PO SCH (10:06)
[2019-09-30] MEDS: Dutasteride 0.5 MG CAP PO SCH (10:06)
[2019-09-30] MEDS: Gabapentin 100 MG CAP PO SCH ×2 (10:06→19:16)
[2019-09-30] MEDS: Aspirin 81 mg Enteric Coated Tablet PO SCH (10:06)
[2019-09-30] MEDS: Lidocaine 5% Patch TD SCH (10:07)
[2019-09-30] MEDS: ALPRAZolam 0.25 MG TAB PO SCH ×2 (10:07→19:15)
[2019-09-30] MEDS ORDERED: Iopamidol-370 76% 500 ML 1 ML ONE (11:10)
[2019-09-30 11:13] LABS: Anion Gap 13 mmol/L (10-20); BUN (Urea Nitrogen) 33 mg/dL (8.4-25.7); Calc. Creatinine Clearance 65 mL/min (70-130); Calcium 8.2 mg/dL (7.8-10.44); Carbon Dioxide 27 mmol/L (23-31); Chloride 104 mmol/L (98-107); Estimated GFR-MDRD 65; Glucose 101 mg/dL (83-110); Potassium 4.2 mmol/L (3.5-5.1); Sodium 140 mmol/L (136-145)
--- NOTE | 2019-09-30 12:00 | PRG ---
DATE OF SERVICE: 09/30/2019 SUBJECTIVE: The patient is doing well. He says he still needs time to recovery. Plans on going to a swing bed and have a soda. OBJECTIVE: VITAL SIGNS: Temperature 97.3, pulse 78, respirations 20, O2 saturation 96% on 4 L. HEENT: Unremarkable. NECK: No adenopathy or JVD. LUNGS: He has expiratory wheezing over his left chest, right side clear. CARDIAC: S1, S2. Regular. ABDOMEN: Soft. EXTREMITIES: No edema. ASSESSMENT: 1. Chronic obstructive pulmonary disease with exacerbation. 2. Deconditioning. PLAN: Basically, a rehabilitative issue at this point. He is continuing antibiotics, nebulization treatments, and oral steroids. He is ready to go to a swing bed from our standpoint. Job ID: [id number]
--- NOTE | 2019-09-30 13:31 | PDOC.HOSPP ---
- Subjective Encounter Date: 09/30/19 Encounter Time: 09:00 Subjective: says he is more sob this am at bedside he ambulated in room with PT yesterday inside his room and sat in a chair - Objective Vital Signs & Weight: Vital Signs (12 hours) Temp Pulse Resp BP Pulse Ox 09/30/19 10:50 88 20 96 09/30/19 10:10 96 09/30/19 07:15 86 20 96 09/30/19 07:04 97.3 F L 84 19 134/76 96 09/30/19 02:19 20 Weight Admit Weight 184 lb 4.8 oz Weight 185 lb I&O: 09/29/19 09/30/19 10/01/19 06:59 06:59 06:59 Intake Total 480 Output Total 450 Balance 30 Result Diagrams: 09/29/19 05:55 09/30/19 10:19 Hospitalist ROS - Medication Medications: Active Medications Generic Name Dose Route Start Last Admin Trade Name Freq PRN Reason Stop Dose Admin Acetaminophen 650 mg 09/21/19 14:13 09/26/19 09:24 Tylenol PO 650 mg Q4H PRN Administration Headache/Fever/Mild Pain (1-3) Hydrocodone Bitart/Acetaminophen 1 tab 09/21/19 20:26 09/29/19 20:45 [place] 5/325 PO 1 tab Q4H PRN Administration Moderate Pain (4-6) Al Hydroxide/Mg Hydroxide 30 ml 09/25/19 22:22 09/26/19 04:12 Maalox PO 30 ml Q6H PRN Administration Constipation Al Hydroxide/Mg Hydroxide 15 ml 09/26/19 17:19 09/26/19 18:03 Maalox PO 15 ml Q6H PRN Administration Heartburn or Indigestion Albuterol/Ipratropium 3 ml 09/21/19 14:30 09/30/19 10:50 Duoneb NEB 3 ml [id number] SHORTY Administration Alprazolam 0.25 mg 09/21/19 21:00 09/30/19 10:07 Xanax PO Not Given BID SHORTY Aspirin 81 mg 09/25/19 09:00 09/30/19 10:06 Ecotrin PO 81 mg DAILY SHORTY Administration Azithromycin 500 mg 09/23/19 09:00 09/30/19 10:05 Zithromax PO 500 mg MWF SHORTY Administration Dofetilide 0.125 mg 09/21/19 21:00 09/30/19 10:05 Tikosyn PO 0.125 mg BID SHORTY Administration Dutasteride 0.5 mg 09/22/19 09:00 09/30/19 10:06 Avodart PO 0.5 mg DAILY SHORTY Administration Furosemide 40 mg 09/28/19 09:00 09/30/19 10:06 Lasix PO 40 mg DAILY SHORTY Administration Gabapentin 100 mg 09/21/19 21:00 09/30/19 10:06 Neurontin PO 100 mg BID SHORTY Administration Lidocaine 1 patch 09/22/19 09:00 09/30/19 10:07 Lidoderm 5% Patch TD 1 patch DAILY SHORTY Administration Miscellaneous Medication 1 each 09/22/19 21:00 09/29/19 20:46 Lidocaine Patch Removal TOP Not Given 2100 SHORTY Mometasone Furoate/Formoterol Fumar 2 puff 09/21/19 18:30 09/30/19 07:19 Dulera 100 Mcg/5 Mcg Inhaler INH 2 puff BID-RT SHORTY Administration Ondansetron HCl 4 mg 09/26/19 05:23 09/26/19 05:34 Zofran IVP 4 mg Q6H PRN Administration Nausea/Vomiting Pantoprazole Sodium 40 mg 09/26/19 21:00 09/30/19 10:05 Protonix PO 40 mg BID SHORTY Administration Prednisone 20 mg 09/26/19 08:00 09/30/19 10:06 Prednisone PO 20 mg QAM-WM SHORTY Administration Rosuvastatin Calcium 10 mg 09/21/19 21:00 09/29/19 20:45 Crestor PO 10 mg HS SHORTY Administration Sertraline HCl 50 mg 09/21/19 21:00 09/29/19 20:45 Zoloft PO 50 mg HS SHORTY Administration Sodium Chloride 10 ml 09/24/19 21:00 09/30/19 10:07 Flush - Normal Saline IVF 10 ml Q12HR SHORTY Administration Sodium Chloride 10 ml 09/24/19 09:36 09/26/19 05:34 Flush - Normal Saline IVF 10 ml PRN PRN Administration Saline Flush Tamsulosin HCl 0.4 mg 09/22/19 09:00 09/30/19 10:06 Flomax PO 0.4 mg DAILY SHORTY Administration Testosterone Cypionate 200 mg 09/23/19 09:00 09/23/19 16:20 Depo-Testosterone IM 200 mg Q10D SHORTY Administration - Exam General Appearance: awake alert Eye: PERRL, anicteric sclera ENT: no oropharyngeal lesions, moist mucosa Neck: supple, no JVD Heart: RRR, no murmur Respiratory: no wheezes, no rales, rhonchi Gastrointestinal: soft, non-tender, non-distended, normal bowel sounds Extremities: no cyanosis, 1+ LE edema Neurological: cranial nerve grossly intact, no focal deficits Psychiatric: normal affect, A&O x 3 Hosp A/P (1) Acute and chronic respiratory failure with hypoxia Code(s): J96.21 - ACUTE AND CHRONIC RESPIRATORY FAILURE WITH HYPOXIA Status: Acute (2) Acute on chronic diastolic (congestive) heart failure Code(s): I50.33 - ACUTE ON CHRONIC DIASTOLIC (CONGESTIVE) HEART FAILURE Status : Acute (3) COPD exacerbation Code(s): J44.1 - CHRONIC OBSTRUCTIVE PULMONARY DISEASE W (ACUTE) EXACERBATION Status: Acute (4) Anemia, normocytic normochromic Code(s): D64.9 - ANEMIA, UNSPECIFIED Status: Chronic (5) Anxiety and depression Code(s): F41.9 - ANXIETY DISORDER, UNSPECIFIED; F32.9 - MAJOR DEPRESSIVE DISORDER, SINGLE EPISODE, UNSPECIFIED Status: Chronic (6) Atrial fibrillation Code(s): I48.91 - UNSPECIFIED ATRIAL FIBRILLATION Status: Chronic Qualifiers: Atrial fibrillation type: unspecified Qualified Code(s): I48.91 - Unspecified atrial fibrillation (7) BPH (benign prostatic hyperplasia) Code(s): N40.0 - BENIGN PROSTATIC HYPERPLASIA WITHOUT LOWER URINRY TRACT SYMP Status: Chronic Qualifiers: Lower urinary tract symptom presence: symptoms absent Qualified Code(s): N40.0 - Benign prostatic hyperplasia without lower urinary tract symptoms (8) CKD (chronic kidney disease) stage 3, GFR 30-59 ml/min Code(s): N18.3 - CHRONIC KIDNEY DISEASE, STAGE 3 (MODERATE) Status: Chronic (9) HTN (hypertension) Code(s): I10 - ESSENTIAL (PRIMARY) HYPERTENSION Status: Chronic Qualifiers: Hypertension type: essential hypertension Qualified Code(s): I10 - Essential (primary) hypertension (10) BRAD (obstructive sleep apnea) Code(s): G47.33 - OBSTRUCTIVE SLEEP APNEA (ADULT) (PEDIATRIC) Status: Chronic (11) Physical deconditioning Code(s): R53.81 - OTHER MALAISE Status: Chronic - Plan one dose iv lasix 20mg and oral po 40mg as well. has severe deconditioning with edema of both elbows of UE, torso. continue nebs, prednisone, dulera, asp, tikosyn, lasix, crestor, zoloft, avodart cxr shows no infiltrate or congestion hemostable has multiple medical issues, palliative consultation, likely has end stage copd , ?palliative care/hospice to mobilize as tolerated with PT, oob to chair will need swing/rehab for dc plan appreciate /Alexys help Poor prognosis ABG 09/29/2019 showed pO2 of around 59, pC02 of 44 on 38% fio2 NNEKA due to diuresis is stabilizing? Family have opted for [facility] swing bed, await placement
[2019-09-30] MEDS: Rosuvastatin 10 MG TAB PO SCH (19:16)
[2019-09-30] MEDS: HYDROcodone/Acetaminophen 5/325 mg Tablet PO PRN (19:16)
[2019-09-30] MEDS: Lidocaine Patch Removal 1 EACH TOP SCH (19:17)
--- NOTE | 2019-09-30 20:10 | RAD ---
EXAM: XR Chest 1 View Portable PROVIDED CLINICAL HISTORY: Dyspnea COMPARISON: 09/26/2019 FINDINGS: Cardiac and mediastinal silhouette is unchanged in appearance. Vascular calcification involves the ao rtic arch. Left basilar pleural-parenchymal opacity persists, similar to prior. New right patchy lower lung zone airspace disease. No evidence for pneumothorax. IMPRESSION: 1. New patchy right lower lung zone airspace disease, which may reflect subsegmental atelectasis or p neumonia. 2. Persistent left basilar pleural and/or parenchymal opacity.
[2019-09-30 20:17] LABS: #Lymphocytes 0.4 thou/uL (1.20-3.40); #Monocytes 0.4 thou/uL (0.11-0.59); #Neutrophils 7.7 thou/uL (1.40-6.50); %Eosinophils 0.1 % (0.0-10.0); %Lymphocytes 4.3 % (21.0-51.0); %Monocytes 4.3 % (0.0-10.0); %Neutrophils 91.3 % (42.0-75.0); Hemoglobin 8.1 g/dL (14.0-18.0); Mean Corpuscular HGB CONC 30.5 g/dL (32.0-36.0); Mean Corpuscular Hemoglobin 26.5 pg (27.0-31.0); Mean Corpuscular Volume 86.8 fL (78.0-98.0); Mean Platelet Volume 8.4 fL (7.4-10.4); Platelet Count 264 thou/uL (130-400); RBC Distribution Width 17.2 % (11.5-14.5); Red Blood Cell (RBC) Count 3.06 mill/uL (4.70-6.10); White Blood Cell (WBC) Count 8.5 thou/uL (4.8-10.8)
[2019-09-30 20:40] LABS: Anion Gap 13 mmol/L (10-20); BUN (Urea Nitrogen) 38 mg/dL (8.4-25.7); Calc. Creatinine Clearance 61 mL/min (70-130); Calcium 8.3 mg/dL (7.8-10.44); Carbon Dioxide 28 mmol/L (23-31); Chloride 101 mmol/L (98-107); Estimated GFR-MDRD 61; Glucose 173 mg/dL (83-110); Potassium 4.3 mmol/L (3.5-5.1); Sodium 138 mmol/L (136-145)
--- NOTE | 2019-09-30 21:20 | CT ---
EXAM: CT pulmonary angiogram with IV contrast and 3-D MIP reconstructions PROVIDED CLINICAL HISTORY: Shortness of breath COMPARISON: None FINDINGS: There is no evidence for central or segmental pulmonary embolus. Vascular calcification including cor onary calcium is demonstrated. Left atrial appendage occlusion coils are seen. There is consolidation within the right middle lobe inferiorly compatible with pneumonia. 1 cm somewh at nodular focus of consolidation involving the left upper lobe may also represent pneumonia. Emphysematous changes are seen. There is moderate left pleural fluid and trace right pleural fluid with adjacent subsegmental atelect asis bilaterally. No evidence for thoracic lymph node enlargement. The airway appears patent and of normal caliber. The visualized portions of the upper abdomen demonstrate no acute findings. The osseous structures de monstrate no concerning lytic or blastic lesions. Multiple thoracic compression deformities which appear chronic. IMPRESSION: 1. No evidence for central or segmental pulmonary embolus. 2. Right middle lobe pneumonia. Left upper lobe nodular focus of consolidation likely also pneumonia. Follow-up after treatment is recommended. 3. Left greater than right pleural effusions.
[2019-09-30] MEDS ORDERED: cefTRIAXone\\ROCEPHIN 1 GM in Sodium Chloride 0.9% 100 ML IVPB SCH (23:00)
[2019-10-01 07:01] LABS: Anion Gap 9 mmol/L (10-20); BUN (Urea Nitrogen) 38 mg/dL (8.4-25.7); Calc. Creatinine Clearance 68 mL/min (70-130); Calcium 8.1 mg/dL (7.8-10.44); Carbon Dioxide 32 mmol/L (23-31); Chloride 101 mmol/L (98-107); Estimated GFR-MDRD 69; Glucose 95 mg/dL (83-110); Potassium 3.7 mmol/L (3.5-5.1); Sodium 138 mmol/L (136-145)
[2019-10-01] MEDS: Mometasone/Formoterol 120 PUFF INHALER INH SCH (07:25)
[2019-10-01] MEDS ORDERED: Potassium Chloride 20 MEQ TAB PO SCH (08:00)
--- NOTE | 2019-10-01 08:21 | PRG ---
DATE OF SERVICE: 10/01/2019 SUBJECTIVE: Mr. Mart had a lot of trouble breathing yesterday. He also had a lot of abdominal fullness. Chest x-ray and CT indicate he probably has an infiltrate in the right lung, probable pneumonia. The patient did receive intravenous diuretics that seem to help some as well. The patient has a CPAP device on now. OBJECTIVE: VITAL SIGNS: Blood pressure 140/86, pulse 89 and regular. LUNGS: Distant. I do not hear any wheezing. CARDIAC: Normal S1, normal S2. ABDOMEN: Soft and nontender. EXTREMITIES: There is mild edema. PERTINENT LABORATORY: BNP yesterday 185.7, which is on the relatively low side for him. ASSESSMENT: 1. Probable pneumonia. 2. Chronic obstructive pulmonary disease. 3. History of atrial fibrillation, rhythms are regular now. 4. History of anemia. 5. History of diastolic congestive heart failure. PLAN: 1. Resume torsemide 40 mg twice a day. 2. He is on antibiotics. Prognosis is guarded. Job ID: [id number]
[2019-10-01] MEDS: Dofetilide 0.125 MG CAP PO SCH (08:58)
[2019-10-01] MEDS: Aspirin 81 mg Enteric Coated Tablet PO SCH (08:58)
[2019-10-01] MEDS: ALPRAZolam 0.25 MG TAB PO SCH (08:58)
[2019-10-01] MEDS: Dutasteride 0.5 MG CAP PO SCH (08:59)
[2019-10-01] MEDS: Tamsulosin HCl 0.4 MG CAP PO SCH (08:59)
[2019-10-01] MEDS: Gabapentin 100 MG CAP PO SCH (08:59)
[2019-10-01] MEDS: predniSONE 20 MG TAB PO SCH (09:00)
[2019-10-01] MEDS ORDERED: Torsemide 20 MG TAB PO SCH (09:00)
[2019-10-01] MEDS: Lidocaine 5% Patch TD SCH (09:09)
--- NOTE | 2019-10-01 09:23 | PRG ---
DATE OF SERVICE: 10/01/2019 SUBJECTIVE: He had some difficulty last night, but feels better this morning. OBJECTIVE: VITAL SIGNS: Temperature 97.4, pulse 98, respirations 20, O2 saturation 98% on 5 L, and blood pressure 141/86. HEENT: Unremarkable. NECK: No adenopathy or JVD. LUNGS: Fairly clear. CARDIAC: S1 and S2, regular. ABDOMEN: Soft. EXTREMITIES: No edema. LABORATORY DATA: I reviewed his CT and chest x-ray from last night. ASSESSMENT: 1. Chronic obstructive pulmonary disease exacerbation. 2. Question of concurrent pneumonia, although probably nothing significant. PLAN: Discussed with Dr. Caban. I think we could probably put him on 7 days of Omnicef. He can go back to the snf and complete rehab. Job ID: [id number]
[2019-10-01] MEDS ORDERED: Azithromycin 500 MG in Sodium Chloride 0.9% 250 ML 250 ML IVPB SCH (10:00)
--- NOTE | 2019-10-01 11:59 | PDOC.HOSPP ---
- Subjective Encounter Date: 10/01/19 Encounter Time: 08:15 Subjective: no new complaints ate his breakfast - Objective Vital Signs & Weight: Vital Signs (12 hours) Temp Pulse Resp BP BP Pulse Ox 10/01/19 10:34 89 20 99 10/01/19 08:00 99 10/01/19 07:24 98 20 98 10/01/19 07:21 93 20 99 10/01/19 07:16 97.4 F L 89 22 H 141/86 H 99 10/01/19 04:00 97.4 F L 93 20 151/79 H 99 10/01/19 02:05 78 18 94 L 10/01/19 00:00 97.4 F L 85 20 124/92 H 94 L Weight Admit Weight 184 lb 4.8 oz Weight 185 lb I&O: 09/30/19 10/01/19 10/02/19 06:59 06:59 06:59 Intake Total 480 1450 480 Output Total 450 1750 150 Balance 30 -300 330 Result Diagrams: 09/30/19 20:01 10/01/19 06:10 Hospitalist ROS - Medication Medications: Active Medications Generic Name Dose Route Start Last Admin Trade Name Freq PRN Reason Stop Dose Admin Acetaminophen 650 mg 09/21/19 14:13 09/26/19 09:24 Tylenol PO 650 mg Q4H PRN Administration Headache/Fever/Mild Pain (1-3) Hydrocodone Bitart/Acetaminophen 1 tab 09/21/19 20:26 09/30/19 19:16 Mccurtain 5/325 PO 1 tab Q4H PRN Administration Moderate Pain (4-6) Al Hydroxide/Mg Hydroxide 30 ml 09/25/19 22:22 09/26/19 04:12 Maalox PO 30 ml Q6H PRN Administration Constipation Al Hydroxide/Mg Hydroxide 15 ml 09/26/19 17:19 09/26/19 18:03 Maalox PO 15 ml Q6H PRN Administration Heartburn or Indigestion Albuterol/Ipratropium 3 ml 09/21/19 14:30 10/01/19 10:34 Duoneb NEB 3 ml [id number] SHORTY Administration Alprazolam 0.25 mg 09/21/19 21:00 10/01/19 08:58 Xanax PO 0.25 mg BID SHORTY Administration Aspirin 81 mg 09/25/19 09:00 10/01/19 08:58 Ecotrin PO 81 mg DAILY SHORTY Administration Dofetilide 0.125 mg 09/21/19 21:00 10/01/19 08:58 Tikosyn PO 0.125 mg BID SHORTY Administration Dutasteride 0.5 mg 09/22/19 09:00 10/01/19 08:59 Avodart PO 0.5 mg DAILY SHORTY Administration Gabapentin 100 mg 09/21/19 21:00 10/01/19 08:59 Neurontin PO 100 mg BID SHORTY Administration Lidocaine 1 patch 09/22/19 09:00 10/01/19 09:09 Lidoderm 5% Patch TD 1 patch DAILY SHORTY Administration Miscellaneous Medication 1 each 09/22/19 21:00 09/30/19 19:17 Lidocaine Patch Removal TOP Not Given 2100 SHORTY Mometasone Furoate/Formoterol Fumar 2 puff 09/21/19 18:30 10/01/19 07:25 Dulera 100 Mcg/5 Mcg Inhaler INH 2 puff BID-RT SHORTY Administration Ondansetron HCl 4 mg 09/26/19 05:23 09/26/19 05:34 Zofran IVP 4 mg Q6H PRN Administration Nausea/Vomiting Pantoprazole Sodium 40 mg 09/26/19 21:00 10/01/19 08:59 Protonix PO 40 mg BID SHORTY Administration Potassium Chloride 20 meq 10/01/19 08:00 10/01/19 08:57 K-Dur PO 20 meq BID-WM SHORTY Administration Rosuvastatin Calcium 10 mg 09/21/19 21:00 09/30/19 19:16 Crestor PO 10 mg HS SHORTY Administration Sertraline HCl 50 mg 09/21/19 21:00 09/30/19 19:16 Zoloft PO 50 mg HS SHORTY Administration Sodium Chloride 10 ml 09/24/19 21:00 10/01/19 09:09 Flush - Normal Saline IVF 10 ml Q12HR SHORTY Administration Sodium Chloride 10 ml 09/24/19 09:36 09/26/19 05:34 Flush - Normal Saline IVF 10 ml PRN PRN Administration Saline Flush Tamsulosin HCl 0.4 mg 09/22/19 09:00 10/01/19 08:59 Flomax PO 0.4 mg DAILY SHORTY Administration Testosterone Cypionate 200 mg 09/23/19 09:00 09/23/19 16:20 Depo-Testosterone IM 200 mg Q10D SHORTY Administration Torsemide 40 mg 10/01/19 09:00 10/01/19 09:09 Demadex PO 40 mg BID@0900,1400 SHORTY Administration - Exam General Appearance: awake alert Eye: PERRL, anicteric sclera ENT: no oropharyngeal lesions, moist mucosa Neck: supple, no JVD Heart: RRR, no murmur Respiratory: no rales, rhonchi, wheezes Gastrointestinal: soft, non-tender, non-distended, normal bowel sounds Extremities: no cyanosis, 1+ LE edema Neurological: cranial nerve grossly intact, no focal deficits Psychiatric: A&O x 3 Hosp A/P (1) Acute and chronic respiratory failure with hypoxia Code(s): J96.21 - ACUTE AND CHRONIC RESPIRATORY FAILURE WITH HYPOXIA Status: Acute (2) Acute on chronic diastolic (congestive) heart failure Code(s): I50.33 - ACUTE ON CHRONIC DIASTOLIC (CONGESTIVE) HEART FAILURE Status : Acute (3) COPD exacerbation Code(s): J44.1 - CHRONIC OBSTRUCTIVE PULMONARY DISEASE W (ACUTE) EXACERBATION Status: Acute (4) Anemia, normocytic normochromic Code(s): D64.9 - ANEMIA, UNSPECIFIED Status: Chronic (5) Anxiety and depression Code(s): F41.9 - ANXIETY DISORDER, UNSPECIFIED; F32.9 - MAJOR DEPRESSIVE DISORDER, SINGLE EPISODE, UNSPECIFIED Status: Chronic (6) Atrial fibrillation Code(s): I48.91 - UNSPECIFIED ATRIAL FIBRILLATION Status: Chronic Qualifiers: Atrial fibrillation type: unspecified Qualified Code(s): I48.91 - Unspecified atrial fibrillation (7) BPH (benign prostatic hyperplasia) Code(s): N40.0 - BENIGN PROSTATIC HYPERPLASIA WITHOUT LOWER URINRY TRACT SYMP Status: Chronic Qualifiers: Lower urinary tract symptom presence: symptoms absent Qualified Code(s): N40.0 - Benign prostatic hyperplasia without lower urinary tract symptoms (8) CKD (chronic kidney disease) stage 3, GFR 30-59 ml/min Code(s): N18.3 - CHRONIC KIDNEY DISEASE, STAGE 3 (MODERATE) Status: Chronic (9) HTN (hypertension) Code(s): I10 - ESSENTIAL (PRIMARY) HYPERTENSION Status: Chronic Qualifiers: Hypertension type: essential hypertension Qualified Code(s): I10 - Essential (primary) hypertension (10) BRAD (obstructive sleep apnea) Code(s): G47.33 - OBSTRUCTIVE SLEEP APNEA (ADULT) (PEDIATRIC) Status: Chronic (11) Physical deconditioning Code(s): R53.81 - OTHER MALAISE Status: Chronic - Plan is on torsemide bid has severe deconditioning with edema of both elbows of UE, torso. continue nebs, prednisone, dulera, asp, tikosyn, lasix, crestor, zoloft, avodart cxr shows no infiltrate or congestion hemostable has multiple medical issues, palliative consultation, likely has end stage copd , ?palliative care/hospice to mobilize as tolerated with PT, oob to chair appreciate /Alexys's help Poor prognosis ABG 09/29/2019 showed pO2 of around 59, pC02 of 44 on 38% fio2 NNEKA due to diuresis is stabilizing? Family have opted for [facility] swing bed, await placement dc pt to swing bed, d/w and accepting physician
[2019-10-01 12:31] VITALS: BP 145/64; TEMP 97.8
--- NOTE | 2019-10-01 15:05 | DIS ---
DATE OF ADMISSION: 09/21/2019 DATE OF DISCHARGE: 10/01/2019 DISCHARGE DISPOSITION: [facility]. PRIMARY DISCHARGE DIAGNOSES: Acute on chronic respiratory failure with hypoxia and hypercarbia, acute on chronic obstructive pulmonary disease exacerbation, acute on chronic congestive heart failure exacerbation with diastolic dysfunction, chronic anemia, pneumonia, anxiety, depression, chronic atrial fibrillation which is rate controlled, benign prostatic hyperplasia, chronic kidney disease stage 3, hypertension, obstructive sleep apnea, severe deconditioning. PROCEDURES DONE DURING HOSPITALIZATION: The patient has had a chest x-ray done on the day of admission, which showed chronic changes in the lung, the left lower rib fractures seen. The patient has had transesophageal echo done, which showed a Watchman device to be well positioned in the left atrial appendage. There was 2.2 cm leak noted around the device. CT angio chest done on 09/30/2019 showed questionable right lower lobe consolidation. H and H of 8 and 26, platelet count 264, MCV is 86 with white count of 8. Blood gas done showed a pH of 7.44, pCO2 of 44, PO2 of 59. Discharge BUN and creatinine are 38 and 1.0. BNP on the day of admission 520. Albumin is 2.8. DISCHARGE MEDICATION: 1. Zithromax 500 mg on Saturday, Saturday, and Saturday to prevent recurrent COPD flare up. 2. Ferrous sulfate 325 mg p.o. twice daily. 3. Omnicef 300 mg p.o. daily for another 7 days. 4. Breo Ellipta inhaler daily. 5. Gabapentin 100 mg twice daily. 6. DuoNeb q.4 hourly. 7. Prednisone 20 mg daily. 8. Sertraline 50 mg p.o. at bedtime. 9. Aspirin 81 mg p.o. daily. 10. Demadex 40 mg twice daily. 11. Spiriva inhaler 18 mcg daily. 12. Testosterone 200 mg subcu once every 10 days. 13. Tikosyn 0.125 mg p.o. twice daily. 14. Avodart 0.5 mg p.o. daily. 15. Lidocaine transdermal patch daily. 16. Protonix 40 mg twice daily. 17. K-Dur 20 mEq p.o. twice daily. 18. Crestor 10 mg p.o. at bedtime. 19. Flomax 0.4 mg p.o. daily. ALLERGIES: ADHESIVE. INPATIENT CONSULT: Dr. Gonzalez for Cardiology. Dr. Shipman for Pulmonology. DISCHARGE PLAN: The patient to follow up with Dr. Clemons, his primary care physician in 1 week. He needs to follow up with Dr. Shipman in [address] Gonzalez in 10 days. BRIEF COURSE DURING HOSPITALIZATION: The patient initially got admitted on the 2nd with complaints of shortness of breath and feeling very weak and sleepy all the time. He is found to have had acute kidney injury with moderate dehydration and possible acute blood loss anemia on admission. He was gently hydrated during his stay here. The patient had 2 units of packed cell transfusion on arrival. He has had Cardiology consultation with Dr. Gonzalez. His Eliquis was discontinued due to recurrent drop in hemoglobin with prior transfusions. The patient had a Watchman device in addition to which he had coiling done for leaking. It still leaks now around 2.2 cm. The patient had acute on chronic COPD exacerbation and acute on chronic respiratory failure with hypoxia and hypercarbia. Likely, the patient has end-stage COPD. He is usually on 3 to 4 L of oxygen by nasal cannula. The patient is volume sensitive with diastolic dysfunction. He has had severe deconditioning and is being discharged to swing bed for further recuperation. The patient has multiple medical issues and code status was addressed with him and his multiple times. He is currently a full code. Palliative Care was also following the patient during his stay here. Please see a [id number] documentation for the day of discharge on [employer]. A total of 35 minutes was spent on discharge plan. Job ID: [id number] MTDD
[2019-10-02] MEDS ORDERED: predniSONE 5 MG TAB PO SCH (08:00)
== END 2019-10-01 13:31 | disposition swing bed (61) | DRG 682 ==
LOC: ERS 09:51 → ERHOLD 11:53 → 2NO 17:00 → T4-A 09-27 11:46
PROVIDERS: ADMIT Internal Medicine; ATTEND Internal Medicine
PROC: 30233N1 Transfusion of Nonautologous Red Blood Cells into Peripheral Vein, Percutaneous Approach (ICD-10-PCS; 2019-09-21)
PROC: B24BZZ4 Ultrasonography of Heart with Aorta, Transesophageal (ICD-10-PCS; principal; 2019-09-23)
DX: N17.9 Acute kidney failure, unspecified (principal); J96.21 Acute and chronic respiratory failure with hypoxia; J96.22 Acute and chronic respiratory failure with hypercapnia; I50.33 Acute on chronic diastolic (congestive) heart failure; J18.9 Pneumonia, unspecified organism; D62 Acute posthemorrhagic anemia; I13.0 Hypertensive heart and chronic kidney disease with heart failure and stage 1 through stage 4 chronic kidney disease, or unspecified chronic kidney disease; T82.539A Leakage of unspecified cardiac and vascular devices and implants, initial encounter; J44.1 Chronic obstructive pulmonary disease with (acute) exacerbation; E86.0 Dehydration; Z95.2 Presence of prosthetic heart valve; J44.9 Chronic obstructive pulmonary disease, unspecified; G47.33 Obstructive sleep apnea (adult) (pediatric); Z87.891 Personal history of nicotine dependence; Z79.899 Other long term (current) drug therapy; R53.81 Other malaise; N18.3 Chronic kidney disease, stage 3 (moderate); F41.9 Anxiety disorder, unspecified; F32.9 Major depressive disorder, single episode, unspecified; E87.6 Hypokalemia; I25.10 Atherosclerotic heart disease of native coronary artery without angina pectoris; I48.0 Paroxysmal atrial fibrillation
CPT/HCPCS: 36415; 36430; 71045; 71275; 80048; 80053; 82565; 82728; 82805; 83540; 83550; 83880; 84484; 85014; 85018; 85025; 85049; 86850; 86900; 86901; 93005; 93312; 94640; 94660; 94760; J0696; J1071; J1100; J1940; J2001; J2405; J2550; J2704; J2916; J2920; J3490; J7512; J7620; J8499; P9016; Q9967

== ENCOUNTER 2019-11-16 11:13 | Outpatient (CLI) | payer MEDICARE, BC ==
--- NOTE | 2019-11-16 12:57 | RAD ---
TWO VIEW CHEST: HISTORY: Dyspnea. COMPARISON: Comparison is made to portable chest of 10/10/2019. FINDINGS: Mild cardiomegaly. The vascular and interstitial markings are prominent. Subtle interstitial promin ence may be chronic interstitial change rather than edema, although there may be an element of inters titial edema. CP angles are obscured and small effusions are not excluded. Prominent aortic calcifi cation. Left atrial occlusion device is again noted. IMPRESSION: No acute interval change. Vascular and interstitial prominence remains along with evidence of small effusions. POS: CAITLIN
== END 2019-11-16 11:14 | disposition home or self-care (01) ==
LOC: RAD 11:13
PROVIDERS: ATTEND Internal Medicine Critical Care Medicine
DX: R06.00 Dyspnea, unspecified (principal); J90 Pleural effusion, not elsewhere classified
CPT/HCPCS: 71046

== ENCOUNTER → 2019-12-09 | Day surgery (SDC) | payer MEDICARE, BC ==
[2019-12-08 11:14] VITALS: BMI 28.8
[~2019-12-09] MED LIST: PROPOFOL 20 ML ONE
[2019-12-09 07:52] LABS: #Basophils 0.1 thou/uL (0.0-0.2); #Eosinphils 0.1 thou/uL (0.0-0.7); #Lymphocytes 1.1 thou/uL (1.20-3.40); #Monocytes 0.7 thou/uL (0.11-0.59); #Neutrophils 10.5 thou/uL (1.40-6.50); %Basophils 0.4 % (0.0-1.0); %Eosinophils 0.5 % (0.0-10.0); %Lymphocytes 8.8 % (21.0-51.0); %Monocytes 5.6 % (0.0-10.0); %Neutrophils 84.7 % (42.0-75.0); Hemoglobin 9.1 g/dL (14.0-18.0); Mean Corpuscular Volume 93.8 fL (78.0-98.0); Mean Platelet Volume 7.7 fL (7.4-10.4); Platelet Count 337 thou/uL (130-400); RBC Distribution Width 17.5 % (11.5-14.5); Red Blood Cell (RBC) Count 3.03 mill/uL (4.70-6.10); White Blood Cell (WBC) Count 12.3 thou/uL (4.8-10.8)
[2019-12-09 08:05] LABS: Anion Gap 13 mmol/L (10-20); BUN (Urea Nitrogen) 40 mg/dL (8.4-25.7); Calc. Creatinine Clearance 48 mL/min (70-130); Calcium 8.2 mg/dL (7.8-10.44); Carbon Dioxide 26 mmol/L (23-31); Chloride 104 mmol/L (98-107); Estimated GFR-MDRD 44; Glucose 75 mg/dL (83-110); Potassium 4.2 mmol/L (3.5-5.1); Sodium 139 mmol/L (136-145)
[2019-12-09 08:09] LABS: INR-International Normal Ratio 1.2; PTT 29.5 SEC (22.9-36.1); Prothrombin Time 15.1 SEC (12.0-14.7)
--- NOTE | 2019-12-10 12:26 | EKG ---
Test Reason : PREOP Blood Pressure : / mmHG Vent. Rate : 080 BPM Atrial Rate : 080 BPM P-R Int : 160 ms QRS Dur : 094 ms QT Int : 448 ms P-R-T Axes : 080 -25 040 degrees QTc Int : 516 ms Sinus rhythm with Premature atrial complexes RSR' or QR pattern in V1 suggests right ventricular conduction delay Prolonged QT Abnormal ECG Confirmed by ELVIS GARCIA ([id number]) on 12/10/2019 12:26:29 PM Referred By: SANDRA Confirmed By:ELVIS GARCIA
--- NOTE | 2019-12-11 19:55 | ECHO ---
DATE OF SERVICE: 12/09/19 REFERRING PHYSICIAN: Dr. Luis Miguel Gonzalez REASON FOR PROCEDURE: The patient is an 79-year-old man with history of persistent atrial fibrillation with left atrial abl ation including isolation of left atrial appendage. He is ---- sinus rhythm on Tikosyn but his antico agulation had to be stopped due to recurrent GI bleed. Currently on aspirin only. He underwent a coil ing procedure in September 08, 2019. Here for ANNAMARIA post coiling procedure to assess the Watchman device . PROCEDURE: The patient received Propofol by Anesthesia specialist. After adequate level of sedation achieved, a standard transesophageal echocardiogram probe was passed into the esophagus without diff iculty. Patient tolerated the procedure well, no complications noted. RESULTS: Left atrium is moderately enlarged about 5.2 cm in horizontal diameter. The left atrial appendage we ll visualized with an adequately seated Watchman device in it. Suboptimal opacification noted behind the Watchman device in the left atrium suggestive of free blood flow present. Color Doppler interrogation reveals significant flow by the annular side of the Watchman device. Appr oximately 0.5 cm in diameter. Four out of four pulmonary veins were see without stenosis. Interatrial septum has a small residual leak at the prior transseptal puncture site. The pericardial space is wi thout effusion. Left ventricular systolic function is preserved. Mild left ventricular hypertrophy is seen. Moderate mitral and tricuspid regurgitation noted. The aortic valve has three leaflets without stenosis with trace regurgitation. The pulmonary valve is nonregurgitant. The visualized portion of ascending and descending aorta without aneurysm or dissection. There is significant adherent atheroma in the descending aorta seen. CONCLUSION: 1. Adequately seated but suboptimally sealed Watchman device in the left atrial appendage. 2. Residual flow by the annular side of the device is noted. 3. Moderate left atrial enlargement. 4. Moderate mitral and tricuspid regurgitation. 5. Normal LV systolic function. 6. Small residual leak still present from prior transseptal procedure. PLAN: We will send images to [facility] for consultation for repeat coiling.
== END ==
LOC: CCL 07:16
PROVIDERS: ATTEND Internal Medicine Cardiovascular Disease
PROC: B246ZZ4 Ultrasonography of Right and Left Heart, Transesophageal (ICD-10-PCS; principal; 2019-12-09)
DX: I48.0 Paroxysmal atrial fibrillation (principal); I08.3 Combined rheumatic disorders of mitral, aortic and tricuspid valves; I13.0 Hypertensive heart and chronic kidney disease with heart failure and stage 1 through stage 4 chronic kidney disease, or unspecified chronic kidney disease; I50.32 Chronic diastolic (congestive) heart failure; N18.9 Chronic kidney disease, unspecified; J44.9 Chronic obstructive pulmonary disease, unspecified; Z79.51 Long term (current) use of inhaled steroids; Z79.52 Long term (current) use of systemic steroids; Z79.82 Long term (current) use of aspirin; Z79.899 Other long term (current) drug therapy; Z91.048 Other nonmedicinal substance allergy status; Z95.818 Presence of other cardiac implants and grafts
CPT/HCPCS: 80048; 85025; 85610; 85730; 93005; 93010; 93312; J2704

== ENCOUNTER 2019-12-23 13:02 | Emergency (ER) | payer MEDICARE, BC ==
--- NOTE | 2019-12-23 14:10 | RAD ---
XR Chest 1 View Portable HISTORY: Dyspnea COMPARISON: 11/16/2019 FINDINGS: The heart size is normal. The aorta is tortuous chronic parenchymal changes are again seen. The lungs are well expanded without focal areas of consolidation, pneumothorax or pleural effusions. IMPRESSION: No radiographic evidence of acute cardiopulmonary process.
[2019-12-23 14:40] LABS: #Eosinphils 0.1 thou/uL (0.0-0.7); #Lymphocytes 0.8 thou/uL (1.20-3.40); #Neutrophils 13.5 thou/uL (1.40-6.50); %Basophils 0.1 % (0.0-1.0); %Eosinophils 0.7 % (0.0-10.0); %Lymphocytes 5.4 % (21.0-51.0); %Monocytes 6.5 % (0.0-10.0); %Neutrophils 87.4 % (42.0-75.0); Hemoglobin 7.4 g/dL (14.0-18.0); Mean Corpuscular HGB CONC 30.1 g/dL (32.0-36.0); Mean Corpuscular Hemoglobin 27.1 pg (27.0-31.0); Mean Corpuscular Volume 90.1 fL (78.0-98.0); Mean Platelet Volume 7.7 fL (7.4-10.4); Platelet Count 328 thou/uL (130-400); RBC Distribution Width 17.8 % (11.5-14.5); Red Blood Cell (RBC) Count 2.71 mill/uL (4.70-6.10); White Blood Cell (WBC) Count 15.4 thou/uL (4.8-10.8)
[2019-12-23 15:06] LABS: ALT (SGPT) 137 U/L (8-55); AST (SGOT) 72 U/L (5-34); Albumin 3.7 g/dL (3.4-4.8); Alkaline Phosphatase 189 U/L (40-110); Anion Gap 14 mmol/L (10-20); BUN (Urea Nitrogen) 58 mg/dL (8.4-25.7); Bilirubin, Total 0.4 mg/dL (0.2-1.2); CK (CPK) 35 U/L (30-200); Calc. Creatinine Clearance 0 mL/min (70-130); Calcium 8.5 mg/dL (7.8-10.44); Carbon Dioxide 26 mmol/L (23-31); Chloride 106 mmol/L (98-107); Estimated GFR-MDRD 35; Glucose 85 mg/dL (83-110); Potassium 4.6 mmol/L (3.5-5.1); Protein, Total 5.7 g/dL (5.8-8.1); Sodium 141 mmol/L (136-145)
[2019-12-23 15:10] LABS: Bilirubin Negative (Negative); Blood, Urine Negative (Negative); Clarity Clear (Clear); Glucose, Urine (Dipstick) Normal (Negative); Leukocyte Negative Leu/uL (Negative); Nitrite Negative (Negative); Protein, Urine (Dipstick) Negative (Neg-Trace); Urobilinogen Normal mg/dL (Less than 2)
[2019-12-23 15:26] LABS: CKMB 2.2 ng/mL (0-6.6)
--- NOTE | 2019-12-26 15:49 | EKG ---
Test Reason : Blood Pressure : / mmHG Vent. Rate : 084 BPM Atrial Rate : 084 BPM P-R Int : 198 ms QRS Dur : 100 ms QT Int : 416 ms P-R-T Axes : 000 -26 043 degrees QTc Int : 491 ms Normal sinus rhythm Incomplete right bundle branch block Inferior infarct , age undetermined Abnormal ECG Confirmed by BELKIS GENAO, ANN ([id number]), restaurant expeditor CHAVEZ QUINTANILLA ([id number]) on 12/26/2019 3:49:18 PM Referred By: Confirmed By:ANN TAMAYO MD
== END 2019-12-23 18:43 | disposition home or self-care (01) ==
LOC: ERS 13:02
DX: D64.9 Anemia, unspecified (principal); I12.9 Hypertensive chronic kidney disease with stage 1 through stage 4 chronic kidney disease, or unspecified chronic kidney disease; N18.9 Chronic kidney disease, unspecified; J44.9 Chronic obstructive pulmonary disease, unspecified; Z87.891 Personal history of nicotine dependence; Z79.82 Long term (current) use of aspirin; Z79.899 Other long term (current) drug therapy
CPT/HCPCS: 36430; 71045; 80053; 81003; 82550; 82553; 82728; 83880; 84484; 85025; 86850; 86900; 86901; 86920; 93005; 99284; P9016; 36415

== ENCOUNTER 2020-01-04 15:17 | Outpatient (CLI) | payer MEDICARE, BC ==
--- NOTE | 2020-01-04 16:02 | ULT ---
EXAM: Left lower extremity venous Doppler US HISTORY: left lower extremity edema and pain FINDINGS: Grayscale, color-flow, Doppler evaluation, spectral analysis of the left lower extremity venous struc tures is performed with 2-D imaging. The left common femoral, superficial femoral, popliteal, posterior tibial, proximal greater saphenous and profunda femoral veins are imaged. There is normal luminal compressibility, flow, and augmentation the visualized deep venous structures of the left lower extremity. IMPRESSION: No evidence of a deep vein thrombosis in the left lower extremity.
== END 2020-01-04 15:18 | disposition home or self-care (01) ==
LOC: ULT 15:17
PROVIDERS: ATTEND Nurse Practitioner Family
DX: R60.0 Localized edema (principal); M79.605 Pain in left leg; N18.9 Chronic kidney disease, unspecified; D63.1 Anemia in chronic kidney disease; D50.8 Other iron deficiency anemias

== ENCOUNTER 2020-01-21 13:19 | Inpatient (IN) | payer MEDICARE, BC ==
[2020-01-21 13:49] LABS: #Eosinphils 0.1 thou/uL (0.0-0.7); #Lymphocytes 0.6 thou/uL (1.20-3.40); #Monocytes 0.6 thou/uL (0.11-0.59); #Neutrophils 14.7 thou/uL (1.40-6.50); %Basophils 0.1 % (0.0-1.0); %Eosinophils 0.4 % (0.0-10.0); %Lymphocytes 3.6 % (21.0-51.0); %Monocytes 3.9 % (0.0-10.0); Hemoglobin 10.2 g/dL (14.0-18.0); Mean Corpuscular HGB CONC 31.5 g/dL (32.0-36.0); Mean Corpuscular Hemoglobin 29.5 pg (27.0-31.0); Mean Corpuscular Volume 93.5 fL (78.0-98.0); Mean Platelet Volume 8.2 fL (7.4-10.4); Platelet Count 321 thou/uL (130-400); RBC Distribution Width 22.7 % (11.5-14.5); Red Blood Cell (RBC) Count 3.45 mill/uL (4.70-6.10)
[2020-01-21 13:55] LABS: INR-International Normal Ratio 1.1; PTT 27.5 SEC (22.9-36.1); Prothrombin Time 14.6 SEC (12.0-14.7)
[2020-01-21] MEDS ORDERED: Ondansetron PF 4 MG/2 ML Vial ONE (14:06)
[2020-01-21] MEDS ORDERED: Morphine 4 MG/ML VIAL ONE ×2 (14:06→15:43)
[2020-01-21 14:07] LABS: ALT (SGPT) 32 U/L (8-55); AST (SGOT) 17 U/L (5-34); Albumin 3.7 g/dL (3.4-4.8); Alkaline Phosphatase 86 U/L (40-110); Anion Gap 17 mmol/L (10-20); Anisocytosis MODERATE=16-30 cells (100X) (0-5/hpf); BUN (Urea Nitrogen) 95 mg/dL (8.4-25.7); Basophilic Stippling SLIGHT = 1-2 cells (100X) (None Seen); Bilirubin, Total 0.3 mg/dL (0.2-1.2); Calc. Creatinine Clearance 0 mL/min (70-130); Calcium 8.8 mg/dL (7.8-10.44); Carbon Dioxide 26 mmol/L (23-31); Chloride 99 mmol/L (98-107); Elliptocytes SLIGHT = 2-5 cells (100X) (0-1/hpf); Estimated GFR-MDRD 27; Glucose 116 mg/dL (83-110); MDiff Complete? YES; Ovalocytes SLIGHT = 2-5 cells (100X) (0-1/hpf); Platelet Morphology Comment Appears Adequate; Poikilocytosis SLIGHT = 6-15 cells (100X) (0-5/hpf); Polychromasia MODERATE = 3-4 cells (100X) (0-2/hpf); Potassium 3.4 mmol/L (3.5-5.1); Protein, Total 5.7 g/dL (5.8-8.1); Schistocytes SLIGHT = 2-5 cells (100X) (0-1/hpf); Sodium 139 mmol/L (136-145); Tear Drops SLIGHT = 2-5 cells (100X) (0-1/hpf)
--- NOTE | 2020-01-21 14:18 | RAD ---
SINGLE VIEW CHEST: Date: 01/21/2020 COMPARISON: 12/23/2019. HISTORY: Tripped and fell with left hip pain. FINDINGS: Single view of the chest shows a cardiomediastinal silhouette which is upper limits of normal in size with atherosclerotic calcifications in the aorta. Stable increased interstitial lung markings are pr esent. There is no evidence of consolidation, mass, or pleural effusion. There may be multiple remote left rib fractures. IMPRESSION: Chronic interstitial lung disease without acute cardiopulmonary process. POS: EAA
--- NOTE | 2020-01-21 14:19 | RAD ---
2 VIEWS LEFT HIP: Date: 01/21/2020 HISTORY: Tripped and fell with left hip pain. COMPARISON: 09/20/2018. FINDINGS: Two views of the left hip show fracture of the left femoral neck. No dislocation of the femoral head is seen. No other fractures are identified. IMPRESSION: Left femoral neck fracture. POS: NURIAA
[2020-01-21] MEDS ORDERED: CEFAZOLIN 2 GM in Premix Bag 1 BAG IVPB SCH (15:00)
--- NOTE | 2020-01-21 15:51 | CON ---
DATE OF CONSULTATION: CHIEF COMPLAINT: Left hip pain. HISTORY OF PRESENT ILLNESS: Mr. Mart is an 79-year-old male who fell at home this morning. He lost his balance, tripping and landing on his left side. He had pain in the left hip and was unable to ambulate. He was taken to the emergency department by EMS. X-rays were obtained, which demonstrated a displaced left femoral neck fracture. The patient is in the emergency department currently. He is resting. He has had pain control. PAST MEDICAL HISTORY: Includes COPD, congestive heart failure, chronic kidney disease, hypertension, dyslipidemia, prior prostatic hypertrophy, depression, anxiety, atrial fibrillation, status post Watchman procedure, also history of chronic anemia. PAST SURGICAL HISTORY: 1. A Watchman device placement on September 20. 2. Echocardiogram. 3. Dialysis catheter placement. 4. Skin cystic excision. ALLERGIES: TO ADHESIVES. FAMILY MEDICAL HISTORY: Diabetes, hypertension, and CVA. REVIEW OF SYSTEMS: Positive for left hip pain with motion. Otherwise, negative 10-point review of systems. IMAGES: X-rays of the pelvis demonstrate a left hip femoral neck fracture with displacement. PHYSICAL EXAMINATION: VITAL SIGNS: Stable. The patient is 98% on room air. He is afebrile. HEENT: Normocephalic and atraumatic. RESPIRATORY: Breathing comfortably. ABDOMEN: Soft and nondistended. MUSCULOSKELETAL: The patient's leg lengths appear to be nearly equal. He is able to flex and extend the feet and ankles. He has 1+ edema of the feet. Warm, well-perfused feet. He has pain with movement of the legs at the hip. IMPRESSION: Left femoral neck fracture in an elderly male. PLAN: At this point, the patient will be admitted to the hospital by the General Surgery Trauma service for preoperative medical optimization. He will need to go to surgery likely tomorrow morning if he is cleared for surgery at that point. We will plan for hemiarthroplasty of the hip to get the patient up and out of bed and moving again. This is his goal as well. He is aware of risks and benefits and wants to proceed. Goal is to prevent complications of prolonged bedrest. He should be n.p.o. at midnight tonight. He should have antibiotics on-call to the operating room and appropriate DVT prophylaxis. Job ID: [id number]
--- NOTE | 2020-01-21 16:06 | HP ---
REQUESTING PHYSICIAN: Dr. Starks. ATTENDING SURGEON: Dr. Ospina. CONSULTATIONS: 1. Orthopedics, Dr. Mack. 2. Pulmonology, Dr. Shipman. 3. Cardiology, Dr. Gonzalez. HISTORY OF PRESENT ILLNESS: The patient is an 79-year-old man, who was at home today, getting ready for his cardiology appointment, when he slipped over his house shoes and fell onto his left hip. The patient had immediate pain there. He did not hit his head or lose consciousness or have any syncopal events. The patient was brought to the emergency department by ground EMS, where he underwent evaluation and examination and was noted to have a left femoral neck fracture. At which time, we were asked to evaluate the patient for admission and obtain Orthopedic consultation. ALLERGIES: NONE. CURRENT MEDICATIONS: The patient's spouse is obtaining his current medications. PAST MEDICAL HISTORY: Chronic kidney disease, atrial fibrillation, hypertension , COPD requiring 4 L of oxygen at home, obstructive sleep apnea, chronic anemia, "a leaky valve." PAST SURGICAL HISTORY: Cardiac ablation, a Watchman procedure. SOCIAL HISTORY: The patient lives at home with his spouse. He denies alcohol or tobacco use. He is a former drinker and smoker. The patient denies drug use. REVIEW OF SYSTEMS: A 10-point review of systems is negative unless otherwise stated. PHYSICAL EXAMINATION: VITAL SIGNS: Blood pressure 122/72, heart rate 85, respirations 18, oxygen saturation 98% on 4 L via nasal cannula, temperature is 97.5. GENERAL: The patient is resting comfortably in bed. He is awake, alert, conversant, appropriate. His [place] Coma Scale is 15. HEENT. Head is normocephalic and atraumatic. Eyes, extraocular movements are intact. PERRLA bilaterally. Ears are atraumatic without discharge. Oropharynx is clear. NECK: Nontender. Trachea is midline. No JVD. CHEST: Clear to auscultation with good inspiratory and expiratory effort. Of note, the patient did just receive a breathing treatment. HEART: Regular rate and rhythm. ABDOMEN: Soft, flat, and nontender with active bowel sounds. PELVIS: Stable with tenderness to palpation to the left hip, consistent with his fracture. EXTREMITIES: Neurovascularly intact x4. BACK: By report is atraumatic and nontender. LABORATORY FINDINGS: White blood cell count 16.0, hemoglobin 10.2, hematocrit 32.3, platelets 321. Sodium 139, potassium 3.4, chloride 99, CO2 of 26, BUN 95, creatinine 2.36, glucose 116. LFTs are unremarkable. PT 14, INR 1.1, and PTT 27.5. RADIOGRAPHIC REPORTS: AP chest x-ray shows chronic interstitial lung disease without acute cardiopulmonary process. Views of the left hip show a left femoral neck fracture. ASSESSMENT: 1. Status post ground level fall. 2. Left femoral neck fracture. 3. History of hypertension, atrial fibrillation, COPD, Watchman procedure, CKD PLAN: Will be to admit the patient to the surgical floor, will be made n.p.o. after midnight. We will do pulmonary toilet, gastritis and mechanical VTE prophylaxis , and pain management. Postoperatively, we will do physical and occupational therapy. 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 The patient depending on anesthesia may require monitored bed postoperatively. We will continue the patient's oxygen and his night CPAP. The evaluation, examination, laboratory, and radiographic findings were discussed with Dr. Ospina prior to this dictation. Job ID: [id number] [facility]
[2020-01-21] MEDS ORDERED: Morphine 4 MG/ML VIAL SLOW IVP PRN (16:38)
[2020-01-21] MEDS ORDERED: traMADol HCl 50 MG TAB PO PRN (16:38)
[2020-01-21] MEDS ORDERED: Ondansetron ODT 4 MG TAB PO PRN (16:38)
[2020-01-21] MEDS ORDERED: Dextrose 5% in Water 1,000 ML IV PRN (16:38)
[2020-01-21] MEDS ORDERED: Cyclobenzaprine 10 MG TAB PO PRN (16:38)
[2020-01-21] MEDS ORDERED: Morphine 2 MG/ML SYRINGE SLOW IVP PRN (16:38)
[2020-01-21] MEDS ORDERED: Dextrose 50% Abboject 50 ML SYRINGE SLOW IVP PRN (16:38)
[2020-01-21] MEDS ORDERED: Ondansetron PF 4 MG/2 ML Vial IVP PRN (16:38)
[2020-01-21] MEDS ORDERED: hydrALAZINE 20 MG/ML VIAL SLOW IVP PRN (16:38)
[2020-01-21] MEDS: Acetaminophen 325 MG TAB PO SCH (20:19)
[2020-01-21] MEDS: Rosuvastatin 10 MG TAB PO SCH (20:20)
[2020-01-21] MEDS: Ascorbic Acid 500 mg Chewable Tablet PO SCH (20:20)
[2020-01-21] MEDS: Famotidine 20 MG TAB PO SCH (20:20)
[2020-01-21] MEDS: Senokot S 8.6-50 MG TAB PO SCH (20:20)
[2020-01-21] MEDS: traMADol HCl 50 MG TAB PO PRN (20:21)
[2020-01-21] MEDS ORDERED: Famotidine 20 MG TAB PO SCH (21:00)
--- NOTE | 2020-01-21 22:48 | PRG ---
DATE OF SERVICE: 01/21/2020 SUBJECTIVE: Mr. Mart is an 79-year-old male, status post ground level fall. He sustained left hip fracture. He has a history of hypertension, atrial fibrillation, COPD, and chronic kidney disease. He has been seen in the evening round this evening. The patient reports pain is well controlled. He developed no nausea or vomiting. He has developed no fever or shortness of breath. Vital signs have been stable. He is in good spirits and ready to go to the OR tomorrow. OBJECTIVE: GENERAL: The patient is lying in bed comfortably with no acute respiratory distress. No wheezing to be noted. The patient is alert and awake. GCS 15. VITAL SIGNS: Stable with O2 saturation 98% on room air. LUNGS: Clear bilaterally. HEART: Regular rate and rhythm. ABDOMEN: Soft, nondistended. EXTREMITIES: Neurovascularly intact x4. ASSESSMENT: 1. Status post ground level fall. 2. Left hip fracture. 3. History of hypertension. 4. Atrial fibrillation. 5. Chronic obstructive pulmonary disease, Watchman procedure. 6. Chronic kidney disease. PLAN: Continue supportive care. Continue pain control. The patient will be n.p.o. at midnight. Ready to go to the OR tomorrow. The patient will have home medication reconciled. The patient will need to work with Physical Therapy and Occupational Therapy tomorrow postop. Anticipate placement in rehabilitation facility. Job ID: [id number]
[2020-01-22] MEDS: Sodium Chloride 0.9% 1,000 ML IV SCH ×3 (00:14→18:39)
[2020-01-22] MEDS: Acetaminophen 325 MG TAB PO SCH ×5 (00:19→23:33)
[2020-01-22] MEDS: Ipratropium Bromide 2.5 ml Neb NEB SCH ×5 (01:25→21:15)
[2020-01-22 04:55] LABS: #Eosinphils 0.1 thou/uL (0.0-0.7); #Lymphocytes 1.3 thou/uL (1.20-3.40); #Monocytes 1.3 thou/uL (0.11-0.59); #Neutrophils 13.6 thou/uL (1.40-6.50); %Basophils 0.1 % (0.0-1.0); %Eosinophils 0.8 % (0.0-10.0); %Lymphocytes 7.7 % (21.0-51.0); %Monocytes 7.7 % (0.0-10.0); %Neutrophils 83.7 % (42.0-75.0); Hemoglobin 9.2 g/dL (14.0-18.0); Mean Corpuscular HGB CONC 31.5 g/dL (32.0-36.0); Mean Corpuscular Hemoglobin 29.5 pg (27.0-31.0); Mean Corpuscular Volume 93.7 fL (78.0-98.0); Mean Platelet Volume 8.9 fL (7.4-10.4); Platelet Count 284 thou/uL (130-400); RBC Distribution Width 22.6 % (11.5-14.5); White Blood Cell (WBC) Count 16.2 thou/uL (4.8-10.8)
[2020-01-22 05:13] LABS: Anion Gap 17 mmol/L (10-20); BUN (Urea Nitrogen) 92 mg/dL (8.4-25.7); Calc. Creatinine Clearance 33 mL/min (70-130); Calcium 7.9 mg/dL (7.8-10.44); Carbon Dioxide 23 mmol/L (23-31); Chloride 99 mmol/L (98-107); Estimated GFR-MDRD 30; Glucose 84 mg/dL (83-110); Potassium 3.5 mmol/L (3.5-5.1); Sodium 135 mmol/L (136-145)
[2020-01-22] MEDS ORDERED: Fentanyl 100 MCG/2 ML VIAL ONE ×2 (06:32→06:54)
[2020-01-22] MEDS ORDERED: Lidocaine 2% Jelly 5 ML TUBE ONE (06:32)
[2020-01-22] MEDS ORDERED: Dexamethasone 4 mg/ml Vial ONE (06:54)
[2020-01-22] MEDS: Mometasone 100 MCG/Formoterol 5 MCG 120 PUFF INHALER INH SCH ×2 (06:58→18:37)
[2020-01-22] MEDS ORDERED: MORPHINE 5 MG/10 ML PF VIAL ONE (07:14)
[2020-01-22] MEDS ORDERED: Propofol 500 MG/50 ML VIAL ONE (07:29)
[2020-01-22] MEDS ORDERED: Torsemide 20 MG TAB PO SCH (09:00)
[2020-01-22] MEDS ORDERED: Non-Formulary Item 1 EACH (Tiotropium Bromide [Spiriva] 18 MCG) IH SCH (09:00)
--- NOTE | 2020-01-22 10:01 | PRG ---
DATE OF SERVICE: 01/22/2020 SUBJECTIVE: Mr. Mart is an unfortunate 79-year-old with diastolic heart failure, chronic obstructive pulmonary disease, clinical steroid dependence recently, history of blood loss anemia, history of chronic kidney disease, history of atrial fibrillation. He is seen frequently in my office and seen frequently when he is in the hospital. Apparently, he fell and broke his hip. Deconditioning has been a big component to his illness and sense of shortness of breath. He has also felt to have AV malformations leading to GI blood loss. He actually had an episode of syncope outside Dr. Shipman's office secondary to blood loss anemia with a hemoglobin of 6. When they checked on him recently, he has been doing reasonably well. He is tentatively scheduled for surgery. There is no way around surgery. If he becomes completely bedridden after hip fracture, he will certainly shortly. He has an extremely supportive . I would recommend proceeding with surgery and then will follow him afterwards. Job ID: [id number]
[2020-01-22] MEDS ORDERED: Promethazine HCl 25 MG/ML VIAL SLOW IVP PRN (10:02)
[2020-01-22] MEDS ORDERED: Promethazine HCl 25 MG/ML VIAL IM PRN (10:02)
[2020-01-22] MEDS ORDERED: Ondansetron HCl/PF 4 MG/2 ML Vial IVP PRN (10:02)
[2020-01-22] MEDS ORDERED: Dexamethasone 20 MG/5 ML VIAL ONE (11:06)
[2020-01-22] MEDS ORDERED: EPHEDRINE 25 MG/5 ML SYRINGE ONE (11:06)
[2020-01-22] MEDS ORDERED: Bupivacaine HCl 0.5%/Epinephrine 1:200,000/PF 30 ml Vial ONE (11:06)
[2020-01-22] MEDS ORDERED: PHENYLEPHRINE-NS 100 MCG/ML 10 ML SYRINGE ONE (11:06)
--- NOTE | 2020-01-22 11:18 | OP ---
DATE OF PROCEDURE: 01/22/2020 PREOPERATIVE DIAGNOSIS: Left femoral neck fracture. POSTOPERATIVE DIAGNOSIS: Left femoral neck fracture. PROCEDURE PERFORMED: Left hip hemiarthroplasty. ANESTHESIA: Spinal. COMIC ARTIST: Sonu. ESTIMATED BLOOD LOSS: 200 mL. IMPLANTS: Beam.uy system was used with a Marion size 5 stem, a 28 x 53 bipolar cup and a +1.5 head. COMPLICATIONS: None. DRAINS: None. SPECIMEN: None. OUTCOME: Stable hemiarthroplasty. INDICATIONS FOR PROCEDURE: The patient is an 79-year-old gentleman, status post fall sustaining a left displaced femoral neck fracture. After discussion with the patient and his including risks and benefits, we have decided to proceed with hemiarthroplasty. Informed consent has been obtained, I believe all questions have been answered. DESCRIPTION OF PROCEDURE: The patient was brought to the operating room and a time-out was performed followed by induction of spinal anesthesia. Next, the patient was positioned in a right lateral decubitus position and a sterile prep and drape were performed of the left lower extremity. Next, a curvilinear incision was made centered over the tip of the greater trochanter. After the skin was sharply incised, dissection was carried through the subcutaneous fat down to the level of the fascia jakob and tensor fascia. This structure was incised in line with skin incision, reflected anteriorly and posteriorly revealing the underlying trochanteric bursa. The bursa was swept off the short external rotators and then an elevator was passed under the abductors, isolating the piriformis as well as superior and inferior gemelli. The short external rotators were released off the posterior aspect of the femur and tagged for eventual repair. At this point, the capsule of the hip could be clearly visualized. A T-capsulotomy was performed with leaflets tagged for eventual repair. The femoral head was then removed and sized to a size 54. Next, an oscillating saw was used to make a femoral neck cut approximately 1 cm proximal to the lesser trochanter. Once this was performed, the proximal femur was further prepared 1st with a box chisel followed by a T-handle awl followed by lateralizing reamer and then progressive T-handle awls. At the completion of this, broaching was started at size 3 and continued up to size 5. They gave good fit and fill. A trial reduction was performed with +1.5 head and that showed equalization of leg lengths and a stable hip. The trial components were then removed and cement mixed. Cement was injected into the femoral canal proximally after a cement restrictor was applied. The stem was then inserted and held in place until the cement had fully hardened. Next, a reduction was performed with the final bipolar head, which again resulted in equalized leg lengths. The wound again irrigated. A total of 3 L of Pulsavac was irrigated through the hip during the course of this procedure. Next, wound closure was performed. The capsule was closed with #2 Vicryl followed by reattachment of the short external rotators with #2 Vicryl. The fascia jakob and tensor fascia reapproximated with #2 Vicryl followed by 0 Vicryl for the Wendy fascia, 2-0 Vicryl subcutaneously, and then jacque for the final skin closure. Xeroform gauze and tape dressing were applied to the thigh and then the patient was transferred to recovery room in stable condition. There were no complications. He tolerated the procedure well. Job ID: [id number]
--- NOTE | 2020-01-22 11:23 | PRG ---
DATE OF SERVICE: 01/22/2020 SUBJECTIVE: The patient is currently on the surgical floor. He is postop from a left hip hemiarthroplasty which he underwent today. The patient has significant COPD and heart disease. He was cleared for surgery. Fortunately, he was able to undergo his surgery by spinal and did not require intubation. The patient did receive 1 unit of packed red blood cells to assist on his acute on chronic anemia. PHYSICAL EXAMINATION: VITAL SIGNS: Temperature is 98, heart rate 82, blood pressure 108/58, respirations 14, oxygen saturation is 96% on 4 L via nasal cannula. GENERAL: The patient is resting comfortably in bed. He is sleeping, but did open his eyes to my verbal stimuli. RESPIRATIONS: Nonlabored. HEART: Regular rate and rhythm. ABDOMEN: Soft with active bowel sounds. Postop dressing is clean, dry, and intact. EXTREMITIES: Neurovascularly intact x4. LABORATORY DATA: White blood cell count 16.2, hemoglobin 9.2, hematocrit 29.1, platelets 284. Sodium 135, potassium 3.5, chloride 99, CO2 of 23, BUN 92, creatinine 2.15, glucose 84. There are no radiographs to review. ASSESSMENT: 1. Status post ground level fall. 2. Left femoral neck fracture, status post left hip hemiarthroplasty. 3. History of hypertension, atrial fibrillation, status post ablation and Watchman procedure. 4. Chronic obstructive pulmonary disease. 5. Chronic kidney disease. 6. Acute on chronic anemia. PLAN: Plan will be to check his CBC when he returns to the floor to begin physical and occupational therapy as soon as possible related to his nerve block. Continue pulmonary toilet, gastritis and mechanical VTE prophylaxis. We will resume all of his home medications as soon as we are able to. Job ID: [id number]
[2020-01-22 12:19] LABS: Hemoglobin 9.9 g/dL (14.0-18.0); Mean Corpuscular HGB CONC 32.1 g/dL (32.0-36.0); Mean Corpuscular Hemoglobin 30.1 pg (27.0-31.0); Mean Corpuscular Volume 93.7 fL (78.0-98.0); Mean Platelet Volume 8.5 fL (7.4-10.4); Platelet Count 318 thou/uL (130-400); RBC Distribution Width 21.7 % (11.5-14.5); White Blood Cell (WBC) Count 21.2 thou/uL (4.8-10.8)
[2020-01-22 12:36] LABS: Anisocytosis MODERATE=16-30 cells (100X) (0-5/hpf); Band 1 % (5-11); Lymphocytes 2 % (21-51); MDiff Complete? YES; Monocytes 4 % (0-10); Neutrophil 93 % (42-75); Ovalocytes SLIGHT = 2-5 cells (100X) (0-1/hpf); Platelet Morphology Comment Appears Adequate; Poikilocytosis SLIGHT = 6-15 cells (100X) (0-5/hpf); Polychromasia MODERATE = 3-4 cells (100X) (0-2/hpf); Schistocytes SLIGHT = 2-5 cells (100X) (0-1/hpf)
--- NOTE | 2020-01-22 13:15 | RAD ---
LEFT HIP 2 VIEWS: INDICATION: Postop left hip. COMPARISON: Prior exam dated 01/21/2020. IMPRESSION: Since the comparison examination, there has been interval placement of a left hip endoprosthesis. Pr osthetic components project in the expected position without gross evidence of complication. POS: [facility]
[2020-01-22] MEDS: Potassium Chloride 20 MEQ TAB PO SCH ×2 (13:56→17:50)
[2020-01-22] MEDS: Ascorbic Acid 500 mg Chewable Tablet PO SCH ×2 (13:56→20:55)
[2020-01-22] MEDS: Azithromycin 250 MG TAB PO SCH (13:56)
[2020-01-22] MEDS: Ferrous Sulfate 325 MG TAB PO SCH ×2 (13:56→17:50)
[2020-01-22] MEDS: Dutasteride 0.5 MG CAP PO SCH (13:57)
[2020-01-22] MEDS: Gabapentin 100 MG CAP PO SCH ×2 (13:57→20:56)
[2020-01-22] MEDS: Dofetilide 0.125 MG CAP PO SCH ×2 (13:57→20:55)
[2020-01-22] MEDS: Polyethylene Glycol 3350 17 GM Packet PO SCH (13:57)
[2020-01-22] MEDS: predniSONE 5 MG TAB PO SCH (13:58)
[2020-01-22] MEDS: Tamsulosin HCl 0.4 MG CAP PO SCH (13:58)
[2020-01-22] MEDS: Torsemide 20 MG TAB PO SCH ×2 (13:58→20:55)
[2020-01-22] MEDS: Senokot S 8.6-50 MG TAB PO SCH ×2 (13:58→20:55)
[2020-01-22] MEDS: CEFAZOLIN 2 GM in Premix Bag 1 BAG IVPB SCH ×2 (14:10→21:00)
[2020-01-22] MEDS ORDERED: Sodium Chloride 0.9% 500 ML IV SCH (18:45)
[2020-01-22] MEDS: Famotidine 20 MG TAB PO SCH (20:55)
[2020-01-22] MEDS: Rosuvastatin 10 MG TAB PO SCH (20:55)
--- NOTE | 2020-01-22 23:21 | PRG ---
DATE OF SERVICE: SUBJECTIVE: Mr. Mart currently is on surgical floor. He was seen this evening round. Patient appears alert and awake. GCS 15. Pain is well controlled. He has developed no fever or shortness of breath. He stated that his pain is well controlled. OBJECTIVE: GENERAL: Currently, patient is lying in bed comfortable with no acute respiratory distress. VITAL SIGNS: Stable. LUNGS: Clear bilaterally. HEART: Regular rate and rhythm. ABDOMEN: Soft and nondistended. EXTREMITIES: Neurovascularly intact x4. Postop dressing clean, dry, and intact. ASSESSMENT: 1. Status post ground level fall. 2. Left hip fracture, status post left hip hemiarthroplasty. 3. History of hypertension; atrial fibrillation, status post ablation; chronic obstructive pulmonary disease, sleep apnea with CPAP at night; chronic kidney disease; acute and chronic anemia with 1 unit of blood transfusion. PLAN: Will be continue supportive care, continue pain control, continue CPAP at night. Patient will be working with Physical Therapy and Occupational Therapy. Continue DVT prophylaxis. Job ID: [id number]
[2020-01-23] MEDS: Acetaminophen 325 MG TAB PO SCH ×3 (05:05→17:06)
[2020-01-23 05:45] LABS: #Eosinphils 0.1 thou/uL (0.0-0.7); #Lymphocytes 1.2 thou/uL (1.20-3.40); #Monocytes 1.3 thou/uL (0.11-0.59); #Neutrophils 13.3 thou/uL (1.40-6.50); %Basophils 0.1 % (0.0-1.0); %Eosinophils 0.4 % (0.0-10.0); %Lymphocytes 7.5 % (21.0-51.0); %Monocytes 8.3 % (0.0-10.0); %Neutrophils 83.7 % (42.0-75.0); Hemoglobin 7.9 g/dL (14.0-18.0); Hypochromia SLIGHT = 6-15 cells (100X) (0-5/hpf); Lymphocytes 4 % (21-51); MDiff Complete? YES; Mean Corpuscular HGB CONC 31.8 g/dL (32.0-36.0); Mean Corpuscular Hemoglobin 29.8 pg (27.0-31.0); Mean Corpuscular Volume 93.7 fL (78.0-98.0); Mean Platelet Volume 8.5 fL (7.4-10.4); Monocytes 5 % (0-10); Neutrophil 91 % (42-75); Platelet Count 224 thou/uL (130-400); Platelet Morphology Comment Appears Adequate; RBC Distribution Width 20.8 % (11.5-14.5); Red Blood Cell (RBC) Count 2.63 mill/uL (4.70-6.10); White Blood Cell (WBC) Count 15.9 thou/uL (4.8-10.8)
[2020-01-23 05:47] LABS: Anion Gap 15 mmol/L (10-20); BUN (Urea Nitrogen) 89 mg/dL (8.4-25.7); Calc. Creatinine Clearance 31 mL/min (70-130); Calcium 7.5 mg/dL (7.8-10.44); Carbon Dioxide 25 mmol/L (23-31); Chloride 97 mmol/L (98-107); Estimated GFR-MDRD 28; Glucose 90 mg/dL (83-110); Magnesium 2.7 mg/dL (1.6-2.6); Phosphorus 6.5 mg/dL (2.3-4.7); Potassium 3.6 mmol/L (3.5-5.1); Sodium 133 mmol/L (136-145)
[2020-01-23] MEDS: CEFAZOLIN 2 GM in Premix Bag 1 BAG IVPB SCH (06:09)
[2020-01-23] MEDS: Mometasone 100 MCG/Formoterol 5 MCG 120 PUFF INHALER INH SCH ×2 (06:43→18:29)
[2020-01-23] MEDS: Ipratropium Bromide 2.5 ml Neb NEB SCH ×3 (06:48→18:30)
[2020-01-23] MEDS: Ascorbic Acid 500 mg Chewable Tablet PO SCH ×2 (07:55→20:06)
[2020-01-23] MEDS: Dofetilide 0.125 MG CAP PO SCH ×2 (07:57→20:09)
[2020-01-23] MEDS: Potassium Chloride 20 MEQ TAB PO SCH ×2 (07:57→17:06)
[2020-01-23] MEDS: Ferrous Sulfate 325 MG TAB PO SCH ×2 (07:57→17:07)
[2020-01-23] MEDS: Tamsulosin HCl 0.4 MG CAP PO SCH (07:57)
[2020-01-23] MEDS: Dutasteride 0.5 MG CAP PO SCH (07:57)
[2020-01-23] MEDS: Torsemide 20 MG TAB PO SCH ×2 (07:58→20:06)
[2020-01-23] MEDS: predniSONE 5 MG TAB PO SCH (07:58)
[2020-01-23] MEDS: Senokot S 8.6-50 MG TAB PO SCH ×2 (07:58→20:06)
[2020-01-23] MEDS: Polyethylene Glycol 3350 17 GM Packet PO SCH (07:59)
[2020-01-23] MEDS: Gabapentin 100 MG CAP PO SCH ×2 (07:59→20:06)
[2020-01-23] MEDS ORDERED: Heparin 5,000 UNITS/ML VIAL SC SCH ×2 (09:00→21:00)
[2020-01-23] MEDS ORDERED: Zolpidem Tartrate 5 MG TAB PO PRN (09:09)
[2020-01-23] MEDS: Sodium Chloride 1 GM TAB PO SCH ×2 (09:49→20:10)
[2020-01-23] MEDS: traMADol HCl 50 MG TAB PO PRN ×3 (09:50→22:26)
--- NOTE | 2020-01-23 10:19 | PRG ---
DATE OF SERVICE: SUBJECTIVE: The patient remains on the surgical floor. He is postop day 1, status post a left hip hemiarthroplasty. He was transfused 1 unit of blood intraoperatively, otherwise he did well. He had no issues overnight. He was able to work with occupational therapy yesterday, but not able to work with physical therapy due to his spinal block still in effect. The patient is tolerating a diet. His pain is controlled. PHYSICAL EXAMINATION: VITAL SIGNS: Temperature is 98, heart rate 81, blood pressure 115/60, respirations 16, oxygen saturation 98% on 4 L via nasal cannula. GENERAL: The patient is resting comfortably in bed. He is awake, alert, conversant, and appropriate. HEENT: Unremarkable. Respirations are nonlabored. ABDOMEN: Soft, flat, nondistended. EXTREMITIES: The patient is moving all 4 extremities. LABORATORY DATA: White blood cell count 15.9, hemoglobin 7.9, hematocrit 24.6, platelets 224. Sodium 133, potassium 3.6, chloride 97, CO2 of 25, BUN 89, creatinine 2.28, glucose 90, magnesium 2.7, phosphorus 6.5. IMAGING STUDIES: There are no radiographs reviewed this morning. ASSESSMENT: 1. Status post ground level fall. 2. Postop day #1, status post left hip hemiarthroplasty for a left femoral neck fracture. 3. Chronic kidney disease. 4. Acute on chronic anemia. 5. History of chronic obstructive pulmonary disease; hypertension; atrial fibrillation, status post ablation and Watchman procedure. PLAN: Plan will be to continue supportive care. Encourage physical and occupational therapy and await placement decision. If the patient is symptomatic, we will transfuse him again today. At the time of my visit, the patient said that he had no feelings similar to previous episodes of when his hemoglobin gets low. We will re- evaluate him after therapy. Job ID: [id number] [facility]
--- NOTE | 2020-01-23 16:29 | PRG ---
DATE OF SERVICE: 01/23/2020 SUBJECTIVE: Mr. Mart has received therapy yesterday and he states he was so tired, he slept all night. He has not really done much today. He has a CPAP for regular use. He denies any fevers or chills. PHYSICAL EXAMINATION: VITAL SIGNS: Blood pressure is 113/55, saturation 95% on 4 L nasal cannula. He is afebrile. GENERAL AND HEENT: He is awake and alert, although slightly hard of hearing. He has enlarged neck and slightly small chin. His tongue size is normal. He is oriented and appropriate. LUNGS: Clear. HEART: He had a history of atrial fibrillation, which is fairly regular. I do not hear an S3. He does have a quiet systolic ejection murmur. ABDOMEN: Soft. There is no organomegaly. He is obese. EXTREMITIES: He has extensive bruising related to his left femur fracture, now status post ORIF. LABORATORY DATA: White count 15,900, hemoglobin 7.9, down from 10.2 on admission. He has required transfusion in the past due to ongoing hemolysis due to his atrial fib and his Watchman device. Electrolytes include sodium 133, potassium 3.6, chloride 97, BUN is 89 with creatinine 2.3, this has been his baseline at least dating back several days. IMPRESSION: 1. Chronic obstructive pulmonary disease, currently controlled. 2. Obstructive sleep apnea. 3. History of atrial fibrillation. 4. Left femur fracture, status post open reduction and internal fixation. PLAN: He will continue with current therapies. He is going to need rehab, possibly inpatient at discharge. His other medications continue without change. Job ID: [id number]
[2020-01-23 18:08] LABS: Hemoglobin 7.5 g/dL (14.0-18.0); Platelet Count 211 thou/uL (130-400)
--- NOTE | 2020-01-23 18:39 | PDOC.EVN ---
Event Note - Event Note Event Note: POD #1, L hip hemiarthroplasty. PT felt "weak" with physical therapy. Repeat H /H showed Hgb down to 7.5, 10.2 on admission. ONE unit of PRBCs will be transfused tonight. Recheck in the morning.
--- NOTE | 2020-01-23 19:03 | PDOC.BPN ---
- Brief Progress Note PROGRESS NOTE DATE OF SERVICE: 01/24/2020 SUBJECTIVE: Mr. Mart currently is on surgical floor. He was seen this evening round. Patient appears alert and awake. Pain is well controlled. He has developed no fever or shortness of breath. He stated that his pain is well controlled. Patent stated that he did not have sufficient lunch and dinner due to the foods was not appealing to him. OBJECTIVE: GENERAL: Currently, patient is lying in bed comfortable with no acute respiratory distress. VITAL SIGNS: Stable. LUNGS: Clear bilaterally. HEART: Regular rate and rhythm. ABDOMEN: Soft and nondistended. EXTREMITIES: Neurovascularly intact x4. Postop dressing clean, dry, and intact. ASSESSMENT: 1. Status post ground level fall. 2. Left hip fracture, status post left hip hemiarthroplasty. 3. History of hypertension; atrial fibrillation, status post ablation; chronic obstructive pulmonary disease, sleep apnea with CPAP at night; chronic kidney disease; acute and chronic anemia with 1 unit of blood transfusion. PLAN: Will be continue supportive care, continue pain control, continue CPAP at night. Patient will be working with Physical Therapy and Occupational Therapy. Continue DVT prophylaxis. Add Ensure for supplemental diet
[2020-01-23] MEDS: Famotidine 20 MG TAB PO SCH (20:06)
[2020-01-23] MEDS: Rosuvastatin 10 MG TAB PO SCH (20:06)
[2020-01-24] MEDS: Acetaminophen 325 MG TAB PO SCH ×3 (00:01→12:38)
[2020-01-24] MEDS: Ipratropium Bromide 2.5 ml Neb NEB SCH ×3 (00:37→14:04)
[2020-01-24 05:05] LABS: #Eosinphils 0.1 thou/uL (0.0-0.7); #Monocytes 1.2 thou/uL (0.11-0.59); #Neutrophils 12.9 thou/uL (1.40-6.50); %Basophils 0.1 % (0.0-1.0); %Eosinophils 0.4 % (0.0-10.0); %Lymphocytes 6.7 % (21.0-51.0); %Monocytes 7.8 % (0.0-10.0); Hemoglobin 8.4 g/dL (14.0-18.0); Mean Corpuscular HGB CONC 32.2 g/dL (32.0-36.0); Mean Corpuscular Hemoglobin 29.8 pg (27.0-31.0); Mean Corpuscular Volume 92.3 fL (78.0-98.0); Mean Platelet Volume 8.8 fL (7.4-10.4); Platelet Count 196 thou/uL (130-400); RBC Distribution Width 20.1 % (11.5-14.5); Red Blood Cell (RBC) Count 2.82 mill/uL (4.70-6.10); White Blood Cell (WBC) Count 15.2 thou/uL (4.8-10.8)
[2020-01-24 05:24] LABS: Anion Gap 17 mmol/L (10-20); BUN (Urea Nitrogen) 95 mg/dL (8.4-25.7); Calc. Creatinine Clearance 28 mL/min (70-130); Calcium 7.8 mg/dL (7.8-10.44); Carbon Dioxide 24 mmol/L (23-31); Chloride 97 mmol/L (98-107); Estimated GFR-MDRD 24; Glucose 99 mg/dL (83-110); Magnesium 2.8 mg/dL (1.6-2.6); Phosphorus 6.8 mg/dL (2.3-4.7); Potassium 3.8 mmol/L (3.5-5.1); Sodium 134 mmol/L (136-145)
[2020-01-24] MEDS: traMADol HCl 50 MG TAB PO PRN ×2 (05:26→12:38)
[2020-01-24] MEDS: Mometasone 100 MCG/Formoterol 5 MCG 120 PUFF INHALER INH SCH (06:59)
[2020-01-24] MEDS ORDERED: Enoxaparin Sodium 40 MG/0.4 ML SYRINGE SC SCH (09:00)
[2020-01-24] MEDS ORDERED: Heparin 5,000 UNITS/ML VIAL SC SCH (09:00)
[2020-01-24] MEDS: Azithromycin 250 MG TAB PO SCH (09:25)
[2020-01-24] MEDS: Dofetilide 0.125 MG CAP PO SCH (09:25)
[2020-01-24] MEDS: Sodium Chloride 1 GM TAB PO SCH (09:25)
[2020-01-24] MEDS: Polyethylene Glycol 3350 17 GM Packet PO SCH (09:25)
[2020-01-24] MEDS: Dutasteride 0.5 MG CAP PO SCH (09:25)
[2020-01-24] MEDS: Gabapentin 100 MG CAP PO SCH (09:26)
[2020-01-24] MEDS: Ferrous Sulfate 325 MG TAB PO SCH (09:26)
[2020-01-24] MEDS: Torsemide 20 MG TAB PO SCH (09:26)
[2020-01-24] MEDS: Senokot S 8.6-50 MG TAB PO SCH (09:26)
[2020-01-24] MEDS: Ascorbic Acid 500 mg Chewable Tablet PO SCH (09:26)
[2020-01-24] MEDS: predniSONE 5 MG TAB PO SCH (09:27)
[2020-01-24] MEDS: Tamsulosin HCl 0.4 MG CAP PO SCH (09:27)
[2020-01-24] MEDS: Potassium Chloride 20 MEQ TAB PO SCH (09:27)
--- NOTE | 2020-01-24 11:45 | PDOC.CPN ---
- Subjective Date: 01/24/20 Time: 10:15 Interval history: Mr. Mart is awake, lying in bed. He feels well, only complaint is left hip pain s/p ORIF. Worked with PT yesterday, felt "weak". Chronically SOB, continuous oxygen at home. Denies chest pain or tightness. Denies N/V/D. - Review of Systems Respiratory: reports: shortness of breath, exercise intolerance Musculoskeletal: reports: pain (left hip), tenderness (left hip) - Objective Allergies/Adverse Reactions: Allergies Allergy/AdvReac Type Severity Reaction Status Date / Time adhesive AdvReac Verified 01/10/20 13:26 Visit Medications: Current Medications Acetaminophen (Tylenol) 650 mg PO Q6HR [facility] Last Admin: 01/24/20 05:26 Dose: 650 mg Albuterol/Ipratropium (Duoneb) 3 ml NEB TID-RT [facility] Last Admin: 01/24/20 07:00 Dose: 3 ml Ascorbic Acid (Vitamin C) 500 mg PO BID [facility] Last Admin: 01/24/20 09:26 Dose: 500 mg Azithromycin (Zithromax) 500 mg PO MWF [facility] Last Admin: 01/24/20 09:25 Dose: 500 mg Cyclobenzaprine HCl (Flexeril) 5 mg PO TID PRN PRN Reason: Muscle Spasm Dextrose/Water (Dextrose 50%) 25 gm SLOW IVP PRN PRN PRN Reason: Hypoglycemia Dofetilide (Tikosyn) 0.125 mg PO BID [facility] Last Admin: 01/24/20 09:25 Dose: 0.125 mg Dutasteride (Avodart) 0.5 mg PO DAILY [facility] Last Admin: 01/24/20 09:25 Dose: 0.5 mg Famotidine (Pepcid) 20 mg PO QPM [facility] Last Admin: 01/23/20 20:06 Dose: 20 mg Ferrous Sulfate (Feosol) 325 mg PO BID-WM [facility] Last Admin: 01/24/20 09:26 Dose: 325 mg Gabapentin (Neurontin) 100 mg PO BID [facility] Last Admin: 01/24/20 09:26 Dose: 100 mg Glucagon (Glucagon) 1 mg IM PRN PRN PRN Reason: Hypoglycemia Heparin Sodium (Porcine) (Heparin) 5,000 units SC BID [facility] Last Admin: 01/24/20 09:27 Dose: 5,000 units Hydralazine HCl (Apresoline) 10 mg SLOW IVP Q4H PRN PRN Reason: SBP > 170 or DBP > 100 Cefazolin Sodium/Dextrose 2 gm (/ Device) 50 mls @ 100 mls/hr IVPB ONCALL-OR [facility] Last Admin: 01/23/20 05:05 Dose: 50 mls Dextrose/Water (D5w) 1,000 mls @ 0 mls/hr IV .Q0M PRN PRN Reason: Hypoglycemia Ipratropium Keldron (Atrovent) 2.5 ml NEB [id number] [facility] Last Admin: 01/24/20 07:09 Dose: Not Given Mometasone Furoate/Formoterol Fumar (Dulera 100 Mcg/5 Mcg Inhaler) 2 puff INH BID-RT [facility] Last Admin: 01/24/20 06:59 Dose: 2 puff Polyethylene Glycol (Miralax) 17 gm PO DAILY [facility] Last Admin: 01/24/20 09:25 Dose: 17 gm Potassium Chloride (K-Dur) 20 meq PO BID-WM [facility] Last Admin: 01/24/20 09:27 Dose: 20 meq Prednisone (Prednisone) 10 mg PO DAILY [facility] Last Admin: 01/24/20 09:27 Dose: 10 mg Rosuvastatin Calcium (Crestor) 10 mg PO HS [facility] Last Admin: 01/23/20 20:06 Dose: 10 mg Senna/Docusate Sodium (Senokot S) 1 tab PO BID [facility] Last Admin: 01/24/20 09:26 Dose: 1 tab Sertraline HCl (Zoloft) 50 mg PO HS [facility] Last Admin: 01/23/20 20:06 Dose: 50 mg Sodium Chloride (Flush - Normal Saline) 10 ml IVF PRN PRN PRN Reason: Saline Flush Sodium Chloride (Sodium Chloride) 1 gm PO BID [facility] Stop: 01/24/20 21:01 Last Admin: 01/24/20 09:25 Dose: 1 gm Tamsulosin HCl (Flomax) 0.4 mg PO DAILY [facility] Last Admin: 01/24/20 09:27 Dose: 0.4 mg Torsemide (Demadex) 40 mg PO BID [facility] Last Admin: 01/24/20 09:26 Dose: 40 mg Tramadol HCl (Ultram) 50 mg PO Q6H PRN PRN Reason: Moderate Pain (4-6) Tramadol HCl (Ultram) 100 mg PO Q6H PRN PRN Reason: Severe Pain (7-10) Last Admin: 01/24/20 05:26 Dose: 100 mg Zolpidem Tartrate (Ambien) 5 mg PO HSPRN PRN PRN Reason: Insomnia Vital Signs & Weight: Vital Signs Temp Pulse Resp BP Pulse Ox 01/24/20 07:00 92 16 01/24/20 04:25 98 F 79 16 107/54 L 98 01/24/20 00:37 81 10 L 98 01/24/20 00:01 97.9 F 78 13 119/63 97 Weight 188 lb 0.869 oz - CHADS-VASc Congestive heart failure: 1 Hypertension: 1 Age >75: 2 Vascular disease: 1 Risk Score: 5 - Quality Measures Condition: Atrial Fibrillation/Flutter (hx or current), Heart Failure CV meds: Anticoagulant: No (Chronic Anemia) - Physical Exam General: alert & oriented x3, appears well, no apparent distress HEENT: mucus membranes moist Neck: supple neck, no JVD/HJR, no bruit Cardiac: regular rate and rhythm, no murmur Lungs: no rales, no rhonchi, wheezes (inspiratory), oxygen Neuro: grossly intact Abdomen: unremarkable, active bowel sounds, soft Extremities: other: (extensive ecchymosis,edema to left hip) Musculoskeletal: pain in joint - Labs Result Diagrams: 01/24/20 04:48 01/24/20 04:48 - Assessment/Plan Assessment/Plan: Assessment: 1.S/P Fall with L Hip fracture-s/p ORIF 2.COPD-chronic oxygen usage 3.Paroxysmal AFib-s/p RFA, Watchman placement (has residual leak), no OAC 2/2 anemia, history GI bleeding (AVMs) 4.Chronic Anemia-2 units PCs given, most recent Hgb 8.4 5.Severe Deconditioning 6.CKD Plan: Stable from cardiovascular standpoint, okay to discharge to rehab with same medications.
[2020-01-24 12:27] VITALS: BP 112/57; TEMP 97.6
--- NOTE | 2020-01-24 18:27 | DIS ---
DATE OF ADMISSION: 01/21/2020 DATE OF DISCHARGE: 01/24/2020 ADMISSION DIAGNOSES: 1. Status post ground level fall. 2. Left femoral neck fracture. 3. History of hypertension, atrial fibrillation, chronic obstructive pulmonary disease, Watchman procedure, and chronic kidney disease. CONSULTATIONS: 1. Orthopedics, Dr. Mack. 2. Pulmonology, Dr. Shipman. 3. Cardiology, Dr. Gonzalez. PROCEDURE: Left hip hemiarthroplasty. SUMMARY: The patient is an 79-year-old man, who was getting ready for an appointment when he slipped over his house shoes and fell onto his left hip. He was brought to the emergency department, where he underwent evaluation and examination and was noted to have the above injury. Due to his n.p.o. status, he would have to wait until the following day to undergo his procedure. Both Pulmonology and Cardiology agreed that the patient should go ahead with surgery and that he could be medically optimized. The patient did receive transfusions while he was here due to his acute on chronic anemia. At the time of discharge, the patient was working with physical and occupational therapy. His pain was controlled. He was tolerating a diet. The patient was discharged to inpatient rehab. He will follow up with Dr. Mack in 2 to 3 weeks, sooner as needed. He will schedule followup appointment with his internet consultant, golf course architect, and Oncology, who is following him for his anemia. The patient may follow up with the Trauma [facility] as needed. Job ID: [id number]
--- NOTE | 2020-01-27 13:56 | EKG ---
Test Reason : FALL Blood Pressure : / mmHG Vent. Rate : 084 BPM Atrial Rate : 084 BPM P-R Int : 000 ms QRS Dur : 100 ms QT Int : 424 ms P-R-T Axes : 101 -40 058 degrees QTc Int : 501 ms Sinus rhythm with Premature atrial complexes Left axis deviation Prolonged QT Abnormal ECG Confirmed by MEAGAN REYES DO ([id number]), multimedia editor MAGNO MENESES ([id number] on 01/27/2020 1:55:29 PM Referred By: Confirmed By:MEAGAN REYES DO
== END 2020-01-24 13:10 | DRG 470 ==
LOC: ERS 13:19 → SURG A 15:01
PROVIDERS: ADMIT Specialist; ATTEND Specialist
PROC: 0SRS0J9 Replacement of Left Hip Joint, Femoral Surface with Synthetic Substitute, Cemented, Open Approach (ICD-10-PCS; principal; 2020-01-22)
DX: S72.002A Fracture of unspecified part of neck of left femur, initial encounter for closed fracture (principal); I13.0 Hypertensive heart and chronic kidney disease with heart failure and stage 1 through stage 4 chronic kidney disease, or unspecified chronic kidney disease; J44.9 Chronic obstructive pulmonary disease, unspecified; I50.9 Heart failure, unspecified; N40.0 Benign prostatic hyperplasia without lower urinary tract symptoms; I48.0 Paroxysmal atrial fibrillation; G47.33 Obstructive sleep apnea (adult) (pediatric); E78.5 Hyperlipidemia, unspecified; R53.81 Other malaise; D63.1 Anemia in chronic kidney disease; F41.9 Anxiety disorder, unspecified; W01.0XXA Fall on same level from slipping, tripping and stumbling without subsequent striking against object, initial encounter; Y92.099 Unspecified place in other non-institutional residence as the place of occurrence of the external cause; Z79.01 Long term (current) use of anticoagulants
CPT/HCPCS: 36415; 36430; 71045; 80048; 80053; 82533; 83735; 84100; 85025; 85610; 85730; 86850; 86900; 86901; 93005; 94640; 94660; 96374; 96375; 96376; C1713; C1781; G0390; J0670; J0690; J1100; J1644; J2270; J2274; J2405; J2704; J3010; J7512; J7620; J8499; P9016

== ENCOUNTER 2020-02-13 13:13 | Inpatient (IN) | payer MEDICARE, BC ==
[~2020-02-13 13:13] MED LIST changes: +Heparin 1,000 UNITS/ML VIAL ONE; -PROPOFOL 20 ML ONE
--- NOTE | 2020-02-13 14:12 | RAD ---
XR Hip Lt 2-3 View INDICATION: Left hip surgery 3 weeks ago with severe left pain COMPARISON: January 22, 2020 FINDINGS: Bones: No acute osseous abnormality. Bone mineralization appears within normal limits. Hip joint: Left hip endoprosthesis is unchanged in position SI joints and symphysis pubis: Radiographically normal. Intrapelvic contents: Visualized bowel gas pattern is within normal limits. Surrounding soft tissues: Soft tissue swelling over the left hip with associated soft tissue gas has improved IMPRESSION: 1. Postoperative left hip. No acute fracture.
[2020-02-13 15:10] LABS: #Lymphocytes 0.5 thou/uL (1.20-3.40); #Monocytes 0.9 thou/uL (0.11-0.59); #Neutrophils 13.7 thou/uL (1.40-6.50); %Eosinophils 0.1 % (0.0-10.0); %Lymphocytes 3.4 % (21.0-51.0); %Monocytes 6.1 % (0.0-10.0); %Neutrophils 90.4 % (42.0-75.0); Hemoglobin 8.6 g/dL (14.0-18.0); Mean Corpuscular HGB CONC 30.7 g/dL (32.0-36.0); Mean Corpuscular Hemoglobin 30.6 pg (27.0-31.0); Mean Corpuscular Volume 99.8 fL (78.0-98.0); Mean Platelet Volume 7.2 fL (7.4-10.4); Platelet Count 349 thou/uL (130-400); RBC Distribution Width 17.4 % (11.5-14.5); Red Blood Cell (RBC) Count 2.81 mill/uL (4.70-6.10); White Blood Cell (WBC) Count 15.1 thou/uL (4.8-10.8)
[2020-02-13] MEDS ORDERED: Morphine 2 MG/ML SYRINGE ONE ×2 (15:22→17:12)
[2020-02-13 15:29] LABS: ALT (SGPT) 17 U/L (8-55); AST (SGOT) 12 U/L (5-34); Albumin 3.3 g/dL (3.4-4.8); Alkaline Phosphatase 76 U/L (40-110); Anion Gap 15 mmol/L (10-20); BUN (Urea Nitrogen) 74 mg/dL (8.4-25.7); Bilirubin, Total 0.5 mg/dL (0.2-1.2); Calc. Creatinine Clearance 0 mL/min (70-130); Calcium 8.3 mg/dL (7.8-10.44); Carbon Dioxide 25 mmol/L (23-31); Chloride 102 mmol/L (98-107); Estimated GFR-MDRD 28; Globulin 1.8 g/dL (2.4-3.5); Glucose 89 mg/dL (83-110); Potassium 4.7 mmol/L (3.5-5.1); Protein, Total 5.1 g/dL (5.8-8.1); Sodium 137 mmol/L (136-145)
--- NOTE | 2020-02-13 16:16 | CT ---
EXAM: CT Pelvis WO Con DATE: 02/13/2020 2:49 PM INDICATION: Left hip pain after surgery COMPARISON: Left hip radiograph dated February 13, 2020 and January 22, 2020 FINDING: There is a 6.8 x 13.2 cm hematoma overlying the left hip. There is a left hip endoprosthesi s in place. No acute fracture is evident. 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 There are severe vascular calcifications seen involving the visualized vasculature. T here is scattered colonic diverticulosis. There is mild wall thickening involving the bladder. The prostate gland is enlarged measuring 5.3 cm. There is mild anasarca involving the lower abdomen and p laure. IMPRESSION: 1. Postoperative change of a left hip endoprosthesis. There is a 6.8 x 13.2 cm hematoma overlying t he left hip which is likely postsurgical in nature. 2. 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 3. Colonic diverticulosis. 4. Mild anasarca
[2020-02-13 17:51] LABS: Hemoglobin 8.6 g/dL (14.0-18.0); Mean Corpuscular HGB CONC 30.5 g/dL (32.0-36.0); Mean Corpuscular Hemoglobin 30.2 pg (27.0-31.0); Mean Corpuscular Volume 98.9 fL (78.0-98.0); Mean Platelet Volume 7.5 fL (7.4-10.4); Platelet Count 388 thou/uL (130-400); RBC Distribution Width 17.4 % (11.5-14.5); Red Blood Cell (RBC) Count 2.85 mill/uL (4.70-6.10); White Blood Cell (WBC) Count 15.3 thou/uL (4.8-10.8)
[2020-02-13] MEDS ORDERED: Dextrose 50% Abboject 50 ML SYRINGE SLOW IVP PRN (17:56)
[2020-02-13] MEDS ORDERED: hydrALAZINE 20 MG/ML VIAL SLOW IVP PRN (17:56)
[2020-02-13] MEDS ORDERED: Ondansetron PF 4 MG/2 ML Vial IVP PRN (17:56)
[2020-02-13] MEDS ORDERED: Dextrose 5% in Water 1,000 ML IV PRN (17:56)
[2020-02-13] MEDS ORDERED: traMADol HCl 50 MG TAB PO PRN ×3 (17:59→18:25)
[2020-02-13 18:08] LABS: Anisocytosis SLIGHT = 6-15 cells (100X) (0-5/hpf); Band 14 % (5-11); Elliptocytes SLIGHT = 2-5 cells (100X) (0-1/hpf); Hypochromia SLIGHT = 6-15 cells (100X) (0-5/hpf); Lymphocytes 1 % (21-51); MDiff Complete? YES; Macrocytosis SLIGHT = 6-15 cells (100X) (0-5/hpf); Monocytes 4 % (0-10); Neutrophil 81 % (42-75); Platelet Morphology Comment Appears Adequate; Polychromasia MODERATE = 3-4 cells (100X) (0-2/hpf); Schistocytes SLIGHT = 2-5 cells (100X) (0-1/hpf); Tear Drops SLIGHT = 2-5 cells (100X) (0-1/hpf)
--- NOTE | 2020-02-13 18:10 | RAD ---
Exam: Chest one view HISTORY:Pain. Difficulty breathing. Leukocytosis Comparison: 01/21/2020 FINDINGS: Cardiac silhouette:Cardiomegaly. Stable coils projecting over the left heart border Aorta: Stable atherosclerosis Pulmonary vessels: Normal Costophrenic angles: Clear LUNGS: Lung parenchymal changes. Hyperinflation. Pneumothorax: None Osseous abnormalities: Remote rib fractures IMPRESSION: 1. Atherosclerosis 2. Cardiomegaly, without evidence of congestive heart failure 3. Chronic lung parenchymal changes.
[2020-02-13] MEDS ORDERED: Morphine 4 MG/ML VIAL ONE (18:17)
[2020-02-13] MEDS ORDERED: Acetaminophen 500 MG TAB ONE (18:19)
--- NOTE | 2020-02-13 19:24 | HP ---
The trauma surgeon is Dr. Ospina. CONSULTING PHYSICIAN: Dr. Lam. HISTORY OF PRESENT ILLNESS: The patient is an 79-year-old male who presented to the emergency department today via EMS after he woke with left-sided hip pain. The patient is postop day #22, status post left hip hemiarthroplasty by Dr. Harrison. He originally came in on January 20 after a mechanical fall with a left femoral neck fracture. He went to the OR the next day for fixation and ultimately went to rehab. He has several chronic medical conditions. At rehab, he was ambulating with a walker and ultimately discharged without any additional pain medication. He denies any trauma or falls. He denies fevers or chills, numbness or tingling in his lower extremities. He denies nausea or vomiting, and has been tolerating a diet. He does report over the past 4 or 5 days when he initially gets up from bed, he is a little bit more short of breath than usual; however, after a short time, this does improve. At the time of my evaluation, the patient was comfortable without movement, but any small amount of movement or pressure onto that left hip generated a large amount of pain. The patient stated that he was not able to walk on it as of this morning, but otherwise was not having any issues. REVIEW OF SYSTEMS: All additional 10-point review of systems negative except as indicated above. PAST MEDICAL HISTORY: CKD, atrial fibrillation, hypertension, COPD on 4 L nasal cannula at home, BRAD, chronic anemia, leaky heart valve. The patient also has a Watchman. PAST SURGICAL HISTORY: Watchman procedure and cardiac ablation. He had a left hip hemiarthroplasty on 01/22/2020. SOCIAL HISTORY: The patient lives at home with his . He has several children that live in this area. He is a former smoker and drinker, but denies any drug use. MEDICATIONS: The patient is unaware of his medications and reports that there have been some changes made since the last time he was in the hospital. He uses [facility] on [facility] in [place]. We will contact them this evening and verify the med rec that we have on file. ALLERGIES: NO KNOWN DRUG ALLERGIES. PHYSICAL EXAMINATION: VITAL SIGNS: Temperature 98.6, pulse 98, respirations 20, oxygen saturation 92% on 3 L nasal cannula, blood pressure 118/74. GENERAL: Elderly male, sitting up in bed with some mild pulmonary distress. PULMONARY: Equal chest rise and fall. Scattered expiratory wheezes throughout. Some mild respiratory distress, on his home nasal cannula oxygen, saturating above 88%. CARDIAC: Regular rate and rhythm. GASTROINTESTINAL: Abdomen is soft, nontender, nondistended. PELVIS: Stable, tender to palpation on the left side. EXTREMITIES: 2+ pulses in all extremities. Gross motor and sensation intact. Left anterior thigh pain. Left lateral thigh and hip surgical incision is clean, dry, and intact. There is no sign of oozing. No purulent discharge. The patient has 2 to 3+ pitting edema in his bilateral lower extremities and reports this is at his baseline. NEUROLOGIC: GCS is 15. No focal neurological deficits. Pupils are equal, round, reactive to light bilaterally. LABORATORY FINDINGS: White count 15.1, hemoglobin 8.6, hematocrit 28, platelets 349. Sodium 137, potassium 4.7, chloride 102, bicarb 25, BUN 74, creatinine 2.23, glucose 89. Lactic acid 1.2. Total bilirubin 0.5, AST 12, ALT 17. CRP 2.3. DIAGNOSTIC FINDINGS: X-ray of the left hip demonstrates postoperative left hip, no acute fracture. CT of the pelvis demonstrates postoperative changes of the left hip, endoprosthesis. There is a 6.8 x 13.2-cm hematoma overlying the left hip, which is likely postsurgical in nature. There is prostate enlargement with mild bladder wall thickening likely reflecting sequela of chronic bladder obstruction, chronic diverticulosis, mild anasarca. ASSESSMENT: 1. Left-sided postoperative hip pain, now postoperative day #22, status post left hip hemiarthroplasty. 2. Leukocytosis, etiology unclear. 3. History of chronic kidney disease, atrial fibrillation, hypertension, chronic obstructive pulmonary disease, on 4 L nasal cannula at home, obstructive sleep apnea, chronic anemia, leaky heart valve, status post Watchman procedure. PLAN: We will admit the patient for observation and provide him with p.o. and IV pain medications as needed and scheduled. We will dose his medications renally. His creatinine is near his baseline. Chest x-ray does not demonstrate any pneumonia. We will also complete a UA and culture to rule out UTI for cause of leukocytosis. There is not an alarming concern for infection of the left hip wound at this time. We will ask Orthopedic Surgery to evaluate the patient. Until that time, he will be strict bedrest. He can have a renal, heart-healthy diet. We will contact the pharmacy at [facility] on [address] [facility] to complete his med rec and restart his medications. We will place him on CPAP at night per his usual home regimen. This patient was discussed with Dr. Ospina before this dictation. Job ID: [id number]
[2020-02-13 19:49] LABS: Bilirubin Negative (Negative); Blood, Urine Negative (Negative); Clarity Clear (Clear); Glucose, Urine (Dipstick) Normal (Negative); Leukocyte Negative Leu/uL (Negative); Nitrite Negative (Negative); Protein, Urine (Dipstick) Negative (Neg-Trace); Urobilinogen Normal mg/dL (Less than 2)
[2020-02-13 20:28] VITALS: BMI 29.6
[2020-02-13] MEDS: Acetaminophen 500 MG TAB PO SCH (20:45)
[2020-02-13] MEDS: Morphine 4 MG/ML VIAL SLOW IVP PRN (21:30)
--- NOTE | 2020-02-13 22:02 | ULT ---
EXAM: Bilateral lower extremity venous ultrasound HISTORY: Bilateral lower extremity swelling COMPARISON: 05/11/2019 TECHNIQUE: Multiplanar grayscale and color Doppler images were obtained in a bilateral lower extremit y venous ultrasound. Spectral analysis of the Doppler waveforms were performed. FINDINGS: The bilateral common femoral vein, profunda femoral veins, superficial femoral veins, and p opliteal veins are normal in appearance without visible thrombus. These vessels demonstrate normal compression, flow, and augmentation. The bilateral posterior tibial veins, profunda femoral veins and greater saphenous veins are patent w ithout evidence of DVT. IMPRESSION: No evidence of DVT in the left or right lower extremity.
[2020-02-13] MEDS: Senokot S 8.6-50 MG TAB PO SCH (22:16)
[2020-02-14] MEDS: Cyclobenzaprine 10 MG TAB PO PRN ×2 (00:36→20:22)
[2020-02-14] MEDS: Acetaminophen 500 MG TAB PO SCH ×4 (00:36→17:42)
--- NOTE | 2020-02-14 01:18 | PRG ---
DATE OF SERVICE: 02/13/2020 SUBJECTIVE: The patient was seen on the surgical floor just being admitted from the emergency room. The patient is awake, alert, in moderate amount of pain to left hip and leg. The patient was evaluated by Orthopedics Dr. Lam in the emergency room. He recommends an MRI of the lumbar spine as he feels this may be a radicular-type pain. The patient does state that he has had increased swelling of bilateral extremities and also redness to the left lower extremity for 2 days. OBJECTIVE: VITAL SIGNS: Stable, afebrile. GENERAL: Elderly male, moderate distress due to left hip and leg pain. GI: Abdomen is soft, nontender, nondistended, ecchymosis noted likely due to recent anticoagulation injections. EXTREMITIES: Left lower extremity with redness below the knee. Bilateral pedal pulses 2+, 3+ pitting edema, bilateral. No calf tenderness. NEUROLOGIC: No focal deficits. DIAGNOSTICS: Bilateral lower extremity venogram, no evidence of DVT in left or right lower extremity. Urinalysis negative for urinary tract infection. ASSESSMENT: 1. Left-sided postoperative hip pain, postop day #22, left hip hemiarthroplasty. 2. Leukocytosis. 3. Possible left lower extremity cellulitis. 4. History of chronic kidney disease, atrial fibrillation, hypertension, chronic obstructive pulmonary disease, on 4 L nasal cannula at home, obstructive sleep apnea, chronic anemia, leaky heart valve, status post Watchman procedure. PLAN: Pain management, CPAP overnight. We will obtain an MRI of the lumbar spine per Orthopedic recommendations. We will hold off on starting any antibiotics at this time as Orthopedics would prefer the left hip be tapped before starting any antibiotics, although he does not feel like this is a hip infection. We will monitor left lower leg redness. We will add Flexeril for spasms to the left hip. Job ID: [id number] MTDD
--- NOTE | 2020-02-14 04:54 | CON ---
DATE OF CONSULTATION: 02/13/2020 HISTORY OF PRESENT ILLNESS: Mr. Mart is an 79-year-old male, who presented to the ER after he had the left-sided hip pain. The patient is about [address] Harrison performing hemiarthroplasty. The patient states about a week ago, he started having increasing pain, but he was unable to ambulate today. The patient has pain, described as radiating down his leg. The patient's pain is intolerable. He has a significant past medical history. PAST MEDICAL HISTORY: Chronic kidney disease, atrial fibrillation, hypertension, COPD, obstructive sleep apnea, anemia. PAST SURGICAL HISTORY: Watchman procedure, cardiac ablation, and left hip hemiarthroplasty. SOCIAL HISTORY: The patient lives at home with his . He has several children that live in this area. Former smoker, history of drinking. MEDICATIONS: Please see administration for full list. PHYSICAL EXAMINATION: VITAL SIGNS: Temperature 98.6, pulse 98, respirations 20, oxygen saturation 92% on 3 L, and blood pressure 118/74. GENERAL: Alert and oriented male, sitting in bed with some pulmonary distress. EXTREMITIES: The patient's extremity shows palpable pulses. He has 3+ pitting edema in his bilateral lower extremities. The patient has a clean and dry surgical incision. There is no erythema, no fluid can be expressed. He is not actually tender to touch. At that side, he is not particularly warm. He has no significant pain with internal and external rotation of his hip. He does have severe pain with dorsiflexion and a positive straight leg sign. He has tenderness to palpation around the L4 and L5 distribution of his low back. LABORATORY DATA: White count 15.1, CRP is 2.3, and ESR is 1. IMAGING DATA: X-rays of hip show no acute fracture. CT scan shows postop changes with a hematoma, which is likely just postoperative fluid accumulation. ASSESSMENT: Status post left total hip arthroplasty with increasing leukocytosis, history of multiple medical problems, but appears to be a positive straight leg sign concerning for low back etiology. PLAN: At this time, his left hip does not appear to be frankly infected. Before starting IV antibiotics, I discussed with the Trauma PA, Cady Gutierrez, that I would recommend an aspiration of his hip. I actually recommended a CT scan for his primary study, but MRI of his lumbar spine to further delineate potential etiologies of low back. He also needs Cardiology evaluation and medical management for his severe pitting edema given his chronic cardiac history. The patient is admitted by Trauma and followed in-house. Continue to follow him inpatient. Job ID: [id number]
[2020-02-14] MEDS: traMADol HCl 50 MG TAB PO PRN ×2 (05:19→20:21)
[2020-02-14] MEDS ORDERED: Albuterol Sulfate 2.5 mg/3 ml Neb NEB PRN (08:30)
[2020-02-14] MEDS: Fluticasone Propionate Nasal Spray 16 gm Bottle NASAL SCH (08:38)
[2020-02-14] MEDS: Torsemide 20 MG TAB PO SCH ×2 (08:38→20:21)
[2020-02-14] MEDS: Dofetilide 0.125 MG CAP PO SCH ×2 (08:39→20:20)
[2020-02-14] MEDS: Aspirin 81 mg Enteric Coated Tablet PO SCH (08:40)
[2020-02-14] MEDS: Lidocaine 5% Patch TD SCH (08:40)
[2020-02-14] MEDS: Ascorbic Acid 500 mg Chewable Tablet PO SCH ×2 (08:40→20:20)
[2020-02-14] MEDS: Senokot S 8.6-50 MG TAB PO SCH ×2 (08:40→20:22)
[2020-02-14] MEDS: predniSONE 20 MG TAB PO SCH (08:40)
[2020-02-14] MEDS: Tamsulosin HCl 0.4 MG CAP PO SCH (08:40)
[2020-02-14] MEDS: Gabapentin 100 MG CAP PO SCH ×2 (08:41→20:19)
[2020-02-14] MEDS: Ferrous Sulfate 325 MG TAB PO SCH ×2 (08:41→20:19)
[2020-02-14] MEDS: Dutasteride 0.5 MG CAP PO SCH (08:42)
[2020-02-14] MEDS: Polyethylene Glycol 3350 17 GM Packet PO SCH (08:44)
[2020-02-14 08:50] LABS: Anion Gap 17 mmol/L (10-20); BUN (Urea Nitrogen) 70 mg/dL (8.4-25.7); Calc. Creatinine Clearance 36 mL/min (70-130); Calcium 8.6 mg/dL (7.8-10.44); Carbon Dioxide 25 mmol/L (23-31); Chloride 102 mmol/L (98-107); Estimated GFR-MDRD 30; Glucose 65 mg/dL (83-110); Magnesium 2.5 mg/dL (1.6-2.6); Phosphorus 5.3 mg/dL (2.3-4.7); Potassium 4.2 mmol/L (3.5-5.1); Sodium 140 mmol/L (136-145)
[2020-02-14] MEDS: Morphine 4 MG/ML VIAL SLOW IVP PRN ×2 (08:57→12:12)
[2020-02-14 09:01] LABS: Anisocytosis SLIGHT = 6-15 cells (100X) (0-5/hpf); Band 8 % (5-11); Hemoglobin 8.7 g/dL (14.0-18.0); Hypochromia SLIGHT = 6-15 cells (100X) (0-5/hpf); Lymphocytes 3 % (21-51); MDiff Complete? YES; Mean Corpuscular HGB CONC 29.4 g/dL (32.0-36.0); Mean Corpuscular Hemoglobin 29.2 pg (27.0-31.0); Mean Corpuscular Volume 99.4 fL (78.0-98.0); Mean Platelet Volume 7.5 fL (7.4-10.4); Monocytes 3 % (0-10); Neutrophil 86 % (42-75); Platelet Count 364 thou/uL (130-400); Poikilocytosis SLIGHT = 6-15 cells (100X) (0-5/hpf); Polychromasia SLIGHT = 2-3 cells (100X) (0-2/hpf); RBC Distribution Width 17.4 % (11.5-14.5); Red Blood Cell (RBC) Count 2.99 mill/uL (4.70-6.10); White Blood Cell (WBC) Count 19.7 thou/uL (4.8-10.8)
--- NOTE | 2020-02-14 11:16 | RAD ---
FLUOROSCOPIC GUIDED LEFT HIP ASPIRATION: INDICATION: History of recent left hip endoprosthesis placement; concern for infected left hip endoprosthesis. TECHNIQUE: Informed consent was obtained. Preprocedure tree scout images were performed. Site overlying the anterolat eral aspect of the left hip was sterilely prepped and draped in the usual sterile fashion. Buffered 1% lidocaine was administered to the overlying subcutaneous tissues. Under fluoroscopic guidance, an 18-gauge spinal needle was guided down into the left hip joint. There was aspiration of 2 cc of serosanguineous joint fluid. The needle was removed. Pressure was held at the sample site until hemos tasis was obtained. Patient tolerated the procedure without difficulty. Total fluoroscopic time was 0.6 minutes. Total exposure was 192 mcg/sq m. IMPRESSION: Successful left hip joint aspiration with removal of 2 cc of serosanguineous left hip joint fluid. Transcribed Date/Time: 02/14/2020 11:22 AM
--- NOTE | 2020-02-14 13:06 | MRI ---
Bursa MR the lumbar spine without contrast INDICATION: Low back pain and left hip pain; history of lumbar spinal fractures COMPARISON: MR of the thoracic spine dated December 21, 2019 TECHNIQUE: Multiplanar multisequence MR images were obtained of lumbar spine without IV contrast. FINDINGS: Bone marrow: There is intermediate to low signal intensity in a patchy distribution involving the vis ualized thoracolumbar spine suspicious for red marrow hyperplasia. There are stable wedge compression abnormalities involving T12 and L1. There is mild residual subendplate edema involving th e compression abnormality of T12. There is a chronic-appearing superior endplate compression abnormality of T11. There is a subacute to chronic superior endplate compression abnormality of L3. Distal spinal cord and conus: Normal. The conus seen to terminate at L1-L2. Visualized retroperitoneum and paraspinal soft tissues: Normal. Vertebral levels: L5-S1: There is a broad-based disc bulge with facet hypertrophy inducing moderate right and mild left neural foraminal. L4-5: There is a broad-based bulge with facet hypertrophy inducing mild central canal narrowing with mild left and [id number] right neural foraminal narrowing L3-4: There is a broad-based bulge with facet hypertrophy inducing moderate right and nutt-ow-fxbzrgz e left neural foraminal narrowing. There is mild central canal narrowing at this level. L2-3: There is a broad-based disc osteophyte complex with facet hypertrophy inducing mild central can al narrowing with vshr-jz-fhfznnsy bilateral neural foraminal narrowing L1-L2: There is a broad-based bulge with facet hypertrophy inducing mild central canal narrowing with mild bilateral neural foraminal narrowing T12-L1: No appreciable central canal or neuroforaminal narrowing. IMPRESSION: 1. Subacute to chronic compression abnormalities at L3 and T12. There are chronic appearing compressi on abnormalities involving T11 and L1. 2. Diffuse intermediate signal intensity involving the marrow of the thoracolumbar spine can be seen with red marrow hyperplasia from chronic anemia. Recommend correlation with the patient's CBC. This can also be seen in patients who or chronic smokers or who are obese. 3. 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
[2020-02-14 14:04] LABS: RBC Count-Automated (BF) 214237 /cumm; WBC/Nucleated-Auto (BF) 3043 uL
[2020-02-14] MEDS: Ipratropium Bromide 2.5 ml Neb NEB SCH ×2 (14:10→18:21)
[2020-02-14 14:47] LABS: BF Color Red; Clarity Cloudy/Turbid (Clear); Tube # EDTA
[2020-02-14 14:51] LABS: BF Segmented Neutrophils 91 %; Cell Count Non Hematic 6 %; Lymphocytes 3 %
[2020-02-14] MEDS ORDERED: Vancomycin 1.5 GRAM/300 ML BAG 1.5 GM in Premix Bag 1 BAG IVPB SCH (17:00)
[2020-02-14] MEDS: Vancomycin HCl 1.25 GM in Sodium Chloride 0.9% 250 ML 250 ML IVPB SCH (17:23)
[2020-02-14] MEDS: Mometasone 200 MCG/Formoterol 5 MCG 120 PUFF INHALER INH SCH (18:22)
--- NOTE | 2020-02-14 19:07 | PRG ---
DATE OF SERVICE: 02/14/2020 SUBJECTIVE: The patient was seen this morning lying in bed with no signs of acute distress. He did report with any movement of his hip that he has significant pain in the left hip. He reports he slept well overnight and he is tolerating his diet. He is pending MRI and aspiration of that left hip fluid collection, which is thought to be a hematoma. OBJECTIVE: VITAL SIGNS: Temperature 98.1, pulse 92, respirations 16, oxygen saturation 94% on 3 L nasal cannula, blood pressure 114/61. GENERAL: Well-appearing elderly male, sitting up in bed with no signs of acute distress. PULMONARY: Equal chest rise and fall. No signs of acute respiratory distress. CARDIAC: Regular rate and rhythm. ABDOMEN: Soft, nontender, nondistended. EXTREMITIES: 2+ pulses in all extremities. Gross motor and sensation intact. He has 2+ pitting edema in the bilateral lower extremities, which is unchanged. NEUROLOGIC: GCS is 15. LABORATORY FINDINGS: White count 19.4, hemoglobin 8.7, hematocrit 29.7, platelets 364. Sodium 140, potassium 4.2, chloride 102, bicarb 25, BUN 70, creatinine 2.11, glucose 65, phosphorus 5.3, magnesium 2.5. DIAGNOSTIC FINDINGS: There are no new diagnostic findings to report. ASSESSMENT: 1. Status post left hip hemiarthroplasty, readmission for increase in left hip pain. 2. Leukocytosis, etiology unclear. 3. History of chronic kidney disease, atrial fibrillation, hypertension, chronic obstructive pulmonary disease, on 4 L nasal cannula, chronic anemia, leaky heart valve, and Watchman. PLAN: Continue current diet and pain regimen. Restart all home medications except for losartan as he does not need it at this time. The patient to receive a MRI of the L-spine per the recommendations of Orthopedic Surgery. He does have a history of known lumbar stenosis. The patient also to go to Radiology for aspiration and culture of his left hip fluid collection, which is thought to be a hematoma caused during surgery. No antibiotics at this time. The patient is afebrile, not tachycardic. We will continue to monitor his leukocytosis and closely monitor for any signs of respiratory infection. UA is negative. We will send blood cultures today as well. We will continue to hold off on physical therapy at this time. We will consider starting physical therapy tomorrow. Repeat blood work in the morning. This patient was seen and evaluated by Dr. Ospina and myself this morning during rounds. Job ID: [id number]
[2020-02-14] MEDS: Rosuvastatin 10 MG TAB PO SCH (20:19)
[2020-02-14] MEDS: Lidocaine Patch Removal 1 EACH TOP SCH (21:25)
--- NOTE | 2020-02-14 23:20 | PRG ---
DATE OF SERVICE: 02/14/2020 SUBJECTIVE: The patient was seen this evening during rounds, resting comfortably, in no acute distress. The patient arouses easily and reports that his pain is well controlled at this time. The patient voices no complaints or concerns. The patient had a joint aspiration done earlier today showing gram-positive cocci. The patient is on vancomycin, pharmacy to dose. The patient's lower leg edema has improved bilaterally. Also, redness to the left lower extremity has improved, there is mild ecchymosis to the medial tib-fib area. There is no concern for cellulitis in the left lower extremity. OBJECTIVE: VITAL SIGNS: Stable, afebrile. GENERAL: Elderly male, resting comfortably, in no acute distress. PULMONARY: Equal chest rise and fall, good inspiratory and expiratory effort. EXTREMITIES: 2+ pulses in all extremities. Motor and sensation intact in all extremities. The patient has improved pitting pedal edema bilateral currently 2+, improved redness to left lower extremity. NEUROLOGIC: No focal deficits. DIAGNOSTICS: Lumbar spine MRI subacute to chronic compression abnormalities at L3 and T12. Chronic appearing compression abnormalities involving T11 and L1. Multilevel severe spondylosis of the lumbar spine. IMPRESSION: 1. Status post left hip hemiarthroplasty, readmission for increase in left hip pain. 2. Leukocytosis. 3. Cellulitis, left lower leg ruled out. 4. Left hip infection with gram-positive cocci per joint aspiration. 5. History of chronic kidney disease, atrial fibrillation, hypertension, chronic obstructive pulmonary disease home O2, chronic anemia, leaky heart valve and Watchman placement. PLAN: Continue pain regimen. Continue IV antibiotics. The patient will be n.p.o. after midnight for plans for Orthopedic Surgery to take the patient back to the OR. The plan was discussed with the patient, who agrees. Job ID: [id number]
[2020-02-15] MEDS: Ipratropium Bromide 2.5 ml Neb NEB SCH ×4 (00:36→18:05)
[2020-02-15] MEDS: Acetaminophen 500 MG TAB PO SCH ×4 (01:11→17:15)
[2020-02-15] MEDS: Morphine 2 MG/ML SYRINGE SLOW IVP PRN ×4 (01:11→20:35)
[2020-02-15] MEDS: Cyclobenzaprine 10 MG TAB PO PRN ×2 (04:59→17:16)
[2020-02-15 05:42] LABS: Anion Gap 16 mmol/L (10-20); BUN (Urea Nitrogen) 69 mg/dL (8.4-25.7); Calc. Creatinine Clearance 35 mL/min (70-130); Calcium 8.2 mg/dL (7.8-10.44); Carbon Dioxide 25 mmol/L (23-31); Chloride 98 mmol/L (98-107); Estimated GFR-MDRD 29; Glucose 76 mg/dL (83-110); Magnesium 2.3 mg/dL (1.6-2.6); Phosphorus 5.7 mg/dL (2.3-4.7); Potassium 3.3 mmol/L (3.5-5.1); Sodium 136 mmol/L (136-145)
[2020-02-15 06:17] LABS: Hemoglobin 8.7 g/dL (14.0-18.0); Mean Corpuscular Hemoglobin 30.1 pg (27.0-31.0); Mean Corpuscular Volume 97.1 fL (78.0-98.0); Mean Platelet Volume 7.7 fL (7.4-10.4); Platelet Count 330 thou/uL (130-400); RBC Distribution Width 17.2 % (11.5-14.5); White Blood Cell (WBC) Count 17.3 thou/uL (4.8-10.8)
[2020-02-15 06:36] LABS: Anisocytosis SLIGHT = 6-15 cells (100X) (0-5/hpf); Band 6 % (5-11); Lymphocytes 3 % (21-51); MDiff Complete? YES; Monocytes 7 % (0-10); Neutrophil 84 % (42-75); Poikilocytosis SLIGHT = 6-15 cells (100X) (0-5/hpf)
[2020-02-15] MEDS: Mometasone 200 MCG/Formoterol 5 MCG 120 PUFF INHALER INH SCH ×2 (07:02→18:06)
[2020-02-15] MEDS: Dutasteride 0.5 MG CAP PO SCH (09:12)
[2020-02-15] MEDS: Ascorbic Acid 500 mg Chewable Tablet PO SCH ×2 (09:12→20:34)
[2020-02-15] MEDS: Aspirin 81 mg Enteric Coated Tablet PO SCH (09:12)
[2020-02-15] MEDS: Ferrous Sulfate 325 MG TAB PO SCH ×2 (09:12→20:34)
[2020-02-15] MEDS: Dofetilide 0.125 MG CAP PO SCH ×2 (09:12→20:34)
[2020-02-15] MEDS: Fluticasone Propionate Nasal Spray 16 gm Bottle NASAL SCH (09:13)
[2020-02-15] MEDS: Torsemide 20 MG TAB PO SCH ×2 (09:13→20:34)
[2020-02-15] MEDS: predniSONE 20 MG TAB PO SCH (09:13)
[2020-02-15] MEDS: Tamsulosin HCl 0.4 MG CAP PO SCH (09:13)
[2020-02-15] MEDS: Lidocaine 5% Patch TD SCH (09:13)
[2020-02-15] MEDS: Senokot S 8.6-50 MG TAB PO SCH ×2 (09:13→20:33)
[2020-02-15] MEDS: Polyethylene Glycol 3350 17 GM Packet PO SCH (09:13)
[2020-02-15] MEDS: Gabapentin 100 MG CAP PO SCH ×2 (09:13→20:34)
[2020-02-15] MEDS ORDERED: PHENYLEPHRINE-NS 100 MCG/ML 10 ML SYRINGE ONE (10:31)
[2020-02-15] MEDS ORDERED: PROPOFOL 200 MG/20 ML VIAL ONE (10:31)
[2020-02-15] MEDS ORDERED: Potassium Chloride 40 MEQ in Sodium Chloride 0.9% 250 ML 250 ML IVPB SCH (10:45)
[2020-02-15] MEDS ORDERED: Midazolam HCl 2 mg/2 ml Vial ONE (12:51)
[2020-02-15] MEDS ORDERED: Tobramycin Sulfate 1.2 GM VIAL ONE (13:09)
--- NOTE | 2020-02-15 13:45 | PRG ---
DATE OF SERVICE: 02/15/2020 SUBJECTIVE: The patient was seen this morning. He was sitting up in bed with no signs of acute distress. Ortho at bedside reports they plan to take the patient to the OR today and remove his implant, washout the wound, and place a new implant in. He has been n.p.o. since midnight. He has been hemodynamically stable. He has no complaints at the time of my evaluation. OBJECTIVE: VITAL SIGNS: Temperature 97.9, pulse 93, respirations 16, oxygen saturation 97% on 3 L nasal cannula, blood pressure 123/63. GENERAL: Elderly male, sitting up in bed with no signs of acute distress. PULMONARY: Equal chest rise and fall. No signs of acute respiratory distress. CARDIAC: Regular rate and rhythm. GI: Abdomen is soft, nontender, and nondistended. EXTREMITIES: 2+ pulses in all extremities. Gross motor and sensation are intact. Swelling to bilateral lower extremities has improved. NEUROLOGIC: GCS is 15. Gross motor and sensation are intact. LABORATORY FINDINGS: White count 17.3, hemoglobin 8.7, hematocrit 28.1, platelets 330. Sodium 136, potassium 3.3, chloride 98, bicarb 25, BUN 69, creatinine 2.18, glucose 76, phosphorus 5.7, magnesium 2.3. DIAGNOSTIC FINDINGS: There are no new diagnostic findings to report. ASSESSMENT: 1. Right hip implant infection. 2. History of chronic kidney disease; atrial fibrillation; hypertension; chronic obstructive pulmonary disease, on 4 L nasal cannula; chronic anemia; leaky heart valve; and Watchman placement. PLAN: Continue n.p.o. until he returns from the OR. Continue all home medications as previously ordered. Continue to hold home losartan as it is not indicated to restart at this time. The patient was started on vancomycin yesterday. Continue to dose renally by Pharmacy. Replace potassium chloride today. Dr. Beaver of Infectious Disease has been consulted and plans to see the patient. The patient's current aspirate culture from his left hip is growing Staphylococcus species. Further specificity and sensitivity are pending at this time. We will follow up. This patient was seen and examined by Dr. Valdes and myself this morning during rounds. Job ID: [id number]
[2020-02-15] MEDS: Vancomycin HCl 1.25 GM in Sodium Chloride 0.9% 250 ML 250 ML IVPB SCH (16:04)
[2020-02-15] MEDS: traMADol HCl 50 MG TAB PO PRN (17:15)
--- NOTE | 2020-02-15 19:29 | CON ---
DATE OF CONSULTATION: 02/15/2020 REASON FOR CONSULTATION: Postoperative left hip replacement infection with bacteremia. HISTORY OF PRESENT ILLNESS: An 79-year-old with history of BPH, AFib with Watchman procedure, hypertension, diastolic CHF, as well as COPD, who had a ground-level fall at the beginning of January and sustained a left femoral neck fracture. The patient underwent a left hip hemiarthroplasty, and he unfortunately developed an infection with bacteremia of left hip. The implant was removed, and I think he has a functional spacer in place at the moment. The surgery was today. He is awake. He is oriented. No headaches, visual symptoms, sore throat, odynophagia, or dysphagia. No dyspnea or chest pain. No cough. No abdominal pain except for suprapubic distention. His left hip still with a drain in place. MEDICAL HISTORY: 1. CKD. 2. Hypertension. 3. Quite advanced COPD, on oxygen at home, and CPAP machine. 4. Atrial fibrillation. 5. Diastolic dysfunction. 6. BPH. 7. Watchman procedure for management of AFib. 8. Left hip replacement beginning of this month. SOCIAL HISTORY: Former smoker, quit less than 10 years before. Used to drink, but not any more. FAMILY HISTORY: Noncontributory. ALLERGIES: NO DRUG ALLERGY REPORTED. CURRENT MEDICATIONS: 1. Ventolin. 2. DuoNeb. 3. Vitamin C. 4. Ecotrin. 5. Flexeril. 6. Tikosyn. 7. Avodart. 8. Feosol. 9. Flonase. 10. Neurontin. 11. Glucagon. 12. Apresoline. 13. Atrovent. 14. Mometasone. 15. Morphine. 16. Pantoprazole. 17. Rosuvastatin. 18. Crestor. 19. Tamsulosin. 20. Tramadol. 21. Vancomycin. PHYSICAL EXAMINATION: VITAL SIGNS: T-max 98.2, blood pressure 120/60, pulse 93, respirations 16, and O2 saturation 97. SKIN: The patient's hip site with a drain in place. Peripheral IV access. No lymphadenopathy. Bruising in the upper extremities. HEENT: Ocular movements conjugate. Oral cavity unremarkable. NECK: Supple. No jugular vein distention. LUNGS: Symmetric with clear breath sounds. HEART: S1 and S2. Irregular rate. No murmurs. ABDOMEN: Soft with what appears to be a quite distended bladder. No organomegaly. No ascites outside the bladder. EXTREMITIES: No joint inflammatory activity. Pulses 1+ in popliteal and dorsalis pedis. Trace edema in the lower extremities. Moves all extremities equally except for the limitations imposed by the left hip prosthesis. NEUROLOGIC: He is awake, knows his name, knows the date and where he is. LABORATORY DATA: White cell count 15 and now 17.3, hemoglobin 8.7, and platelets 330 with 84% neutrophils. A chemistry with a sodium 136, creatinine 2.18. Liver profile normal. Albumin 3.3. His baseline creatinine was 1.2 in 09/2019, and has been up since, it peaked at 3.07 on 01/2013, and seems to be coming down since. The fluid from the joint showed 3000 wbc's with 91% neutrophils. Urinalysis normal. Microbiology with Staph aureus from 2 sets of blood cultures and the same organism likely from the joint. It is a methicillin resistance Staphylococcus strain. ASSESSMENT: 1. Chronic obstructive pulmonary disease. 2. Cardiomyopathy. 3. Atrial fibrillation. 4. Watchman procedure. 5. Fall with a left hip fracture and hemiarthroplasty now with removal of implant after development of methicillin-resistant Staphylococcus aureus infection of the operative site with bacteremia. RECOMMENDATIONS: The patient will have the usual management with it seems like he has one of those functional spacers, which he will likely keep, so we will continue vancomycin. Add rifampin. Treat for the usual duration. After that, switch to oral regimen for probably another 3 months approximately and then suppressive therapy indefinitely, probably with the tetracycline. The bladder needs to be scanned to make sure he is not retaining. There is a high likelihood of that. In that case, he will either need in- and out catheterization or to leave indwelling De catheter. Job ID: [id number]
[2020-02-15] MEDS: Rosuvastatin 10 MG TAB PO SCH (20:34)
[2020-02-15] MEDS: Lidocaine Patch Removal 1 EACH TOP SCH (20:35)
[2020-02-15] MEDS: Rifampin 300 MG CAP PO SCH (21:04)
[2020-02-16] MEDS: Acetaminophen 500 MG TAB PO SCH ×5 (00:06→23:23)
--- NOTE | 2020-02-16 00:19 | PRG ---
DATE OF SERVICE: 02/15/2020 SUBJECTIVE: Patient was seen during evening rounds, resting comfortably. Nursing staff states he was confused earlier postop. The patient is postop removal of his hardware, washout of wound, and replacement of new hardware. The patient is being seen by Infectious Disease, Dr. Beaver. The patient's blood cultures and wound cultures were both positive for Staph. OBJECTIVE: VITAL SIGNS: Stable, afebrile. GENERAL: Elderly male, resting comfortably in no acute distress. PULMONARY: Equal chest rise and fall. RESPIRATIONS: Even and nonlabored. ASSESSMENT: Right hip implant infection, postop removal, washout and replacement of hardware; history of chronic kidney disease; atrial fibrillation; hypertension; chronic obstructive pulmonary disease, on home O2 4 L nasal cannula; chronic anemia; leaky heart valve and Watchman placement. PLAN: Continue diet as tolerated. Continue pain regimen. Continue vancomycin, pharmacy to dose. Culture and sensitivities are pending. We will follow up. We will have physical and occupational therapy work with the patient. Job ID: [id number]
[2020-02-16] MEDS: Morphine 2 MG/ML SYRINGE SLOW IVP PRN (01:18)
[2020-02-16] MEDS: Cyclobenzaprine 10 MG TAB PO PRN (01:18)
[2020-02-16] MEDS: Ipratropium Bromide 2.5 ml Neb NEB SCH ×4 (02:21→18:47)
[2020-02-16] MEDS: Mometasone 200 MCG/Formoterol 5 MCG 120 PUFF INHALER INH SCH ×2 (07:07→18:46)
--- NOTE | 2020-02-16 07:42 | OP ---
DATE OF PROCEDURE: 02/15/2020 PREOPERATIVE DIAGNOSIS: Infected right hip hemiarthroplasty, acute. POSTOPERATIVE DIAGNOSIS: Infected right hip hemiarthroplasty, acute. PROCEDURES PERFORMED: 1. Revision of right hip hemiarthroplasty. 2. Irrigation and debridement of right hip (skin, subcutaneous tissue, muscle, and bone). ANESTHESIA: Spinal. COUNTER CLERK TRACTOR PARTS: Drea Calzada PA-C. ESTIMATED BLOOD LOSS: 200 mL. IMPLANTS: The DePuy unipolar system was used with a modular fracture head hip ball with a +0 mm tapered spacer. COMPLICATIONS: Infection. SPECIMEN: Explanted bipolar cup. OUTCOME: Satisfactory. INDICATIONS FOR PROCEDURE: The patient is an 79-year-old gentleman, who is now approximately 3 weeks post right hip hemiarthroplasty for a femoral neck fracture. The patient had a relatively unremarkable early postoperative period and then approximately 4 days ago, he began developing increasing right groin pain as well as a component of pain that radiates down his leg into the lower leg. The patient does have a known history of lumbar spine disease with radiculopathy; however, this groin pain was a new finding. Workup has since included an aspirate of the hip, which has grown out gram-positive coccus, and as such, the patient now to undergo an irrigation and debridement procedure. At the time of surgery, the femoral stem was cemented in place with a tobramycin methylmethacrylate cement. As such, the patient now to undergo irrigation and debridement of this hip with anticipated conversion from a bipolar head to unipolar head. DESCRIPTION OF PROCEDURE: The patient was brought to the operating room and a time-out performed, followed by induction of spinal anesthesia. Next, the patient was positioned in the left lateral decubitus position, and sterile prep and drape were performed of the right lateral thigh. The patient's incision was fully healed with no drainage. Next, the skin was sharply incised. After skin was incised, dissection was carried down through the subcutaneous tissue to the fascia of the fascia jakob and tensor fascia. This also had fully healed and looked relatively normal. This was then incised inline with the skin incision following the previous closure line. With opening of this tensor fascia and fascia jakob, a mildly purulent fluid was encountered within the hip joint itself, consistent with infection. This had been previously cultured with radiologic procedure. Next, the dissection was carried down further. The short external rotators were no longer attached to the posterior femur. The capsule, however, had healed nicely. The capsule was then entered again using a capsulotomy. At this point, the hip was dislocated and the bipolar component removed from the stem, which was well fixed with the cement collar all the way around the top of the femoral neck cut. At this point, a rongeur was used to debride some fibrinous material and apparent scar material. A scalp was also used to remove just some marginally viable fascial edge and muscle belly deep at the level of the short external rotators. A curette was also used to debride the deeper tissue. The acetabulum itself was free of any loose bodies and still appeared in quite good condition. Next, a total of 8 L of normal saline using Pulsavac was irrigated through this wound. This included subcutaneous space, the subfascial area as well as all the way down in the acetabulum. Following the irrigation, some inflamed trochanteric bursa was also sharply debrided and removed. At the completion of all of this, the unipolar head was then attached to the femoral stem and then reduced. The hip was still found to be quite stable. At this point, wound closure was performed. The capsule was reapproximated with #2 Vicryl. This was followed by insertion of a Hemovac drain below the level of the fascia jakob and tensor fascia. The fascia jakob and tensor fascia were then closed with #2 Vicryl followed by 0 Vicryl for the Wendy fascia, 2-0 Vicryl and nylon for the skin. Xeroform gauze and tape dressing were then applied to the lateral thigh, and the patient was transferred to recovery room in stable condition. He tolerated the procedure well. Job ID: [id number]
[2020-02-16] MEDS: predniSONE 20 MG TAB PO SCH (07:54)
[2020-02-16] MEDS: Aspirin 81 mg Enteric Coated Tablet PO SCH (07:54)
[2020-02-16] MEDS: Senokot S 8.6-50 MG TAB PO SCH ×2 (07:57→21:13)
[2020-02-16] MEDS: Dofetilide 0.125 MG CAP PO SCH ×2 (07:58→21:14)
[2020-02-16] MEDS: Ascorbic Acid 500 mg Chewable Tablet PO SCH ×2 (07:58→21:13)
[2020-02-16] MEDS: Tamsulosin HCl 0.4 MG CAP PO SCH (07:58)
[2020-02-16] MEDS: Gabapentin 100 MG CAP PO SCH ×2 (07:58→21:14)
[2020-02-16] MEDS: Dutasteride 0.5 MG CAP PO SCH (07:58)
[2020-02-16] MEDS: Polyethylene Glycol 3350 17 GM Packet PO SCH (07:59)
[2020-02-16] MEDS: Torsemide 20 MG TAB PO SCH ×2 (07:59→21:13)
[2020-02-16] MEDS: Fluticasone Propionate Nasal Spray 16 gm Bottle NASAL SCH (08:00)
[2020-02-16] MEDS: Ferrous Sulfate 325 MG TAB PO SCH ×2 (08:00→21:13)
[2020-02-16] MEDS ORDERED: Potassium Chloride 20 MEQ in Premix Bag 1 BAG IVPB SCH (08:30)
--- NOTE | 2020-02-16 09:38 | SPC ---
Sonographic guided left upper extremity PICC placement HISTORY: Infection. Need for long-term antibiotics. FINDINGS: After explaining the procedure and answering all questions, left upper extremity was preppe d and draped in usual sterile fashion. Sterile technique, buffered local anesthesia, sonographic guidance, and a 22-gauge needle were used to carefully access the left brachial vein. Standard techni que was used to place the tip of a 5 [place] single lumen PICC so that the tip lies at the level of the cavoatrial junction. Catheter was flushed and secured externally. Patient tolerated the procedure well and was transferred in good condition. Fluoroscopy time 0 seconds. IMPRESSION : Left upper extremity PICC is ready for use.
[2020-02-16] MEDS: Lidocaine 5% Patch TD SCH (10:34)
[2020-02-16] MEDS: Rifampin 300 MG CAP PO SCH ×2 (10:58→21:13)
[2020-02-16 11:11] LABS: Mean Corpuscular HGB CONC 29.7 g/dL (32.0-36.0); Mean Corpuscular Hemoglobin 29.4 pg (27.0-31.0); Mean Corpuscular Volume 98.7 fL (78.0-98.0); Mean Platelet Volume 7.8 fL (7.4-10.4); Platelet Count 380 thou/uL (130-400); RBC Distribution Width 17.3 % (11.5-14.5); Red Blood Cell (RBC) Count 3.05 mill/uL (4.70-6.10); White Blood Cell (WBC) Count 14.2 thou/uL (4.8-10.8)
--- NOTE | 2020-02-16 11:12 | PRG ---
DATE OF SERVICE: 02/16/2020 SUBJECTIVE: Mr. Mart is an 79-year-old man, who is postoperative day #24, status post left hip hemiarthroplasty following hip fracture secondary to a fall. He had a successful rehabilitation and was readmitted on 02/13/2020 with acute-onset left hip pain upon awakening. Workup at that time was consistent with leukocytosis and left hip pain. Hip aspiration was culture positive for MRSA. The patient is postoperative day #1, status post revision left hip arthroplasty and removal of previous infected hardware. The patient is currently on appropriate antibiotic regimen. He is awake and alert this morning, reports adequate pain control. He denies any fevers or chills. OBJECTIVE: VITAL SIGNS: Today include blood pressure 120/62, pulse is 88, respiratory rate is 16, maximum temperature in last 24 hours is 98.1 degrees Fahrenheit, oxygen saturation is 98% on 3 L by nasal cannula oxygen. HEENT: Reveals normocephalic and atraumatic. NECK: He has no jugular venous distention noted. HEART: Reveals regular rate and rhythm. LUNGS: Clear to auscultation bilaterally. Breathing, regular and nonlabored. NEUROLOGIC: Reveals no focal deficits present. IMPRESSION: Postoperative day #1, status post revision left hemiarthroplasty for left septic arthritis and infected hardware. PLAN: 1. Continue with antibiotic therapy. The patient underwent placement of a peripherally inserted central venous catheter this morning for prolonged antibiotic therapy. 2. Continue to increase activity per Physical and Occupational Therapy. 3. Anticipate discharge to inpatient rehabilitation over the next 24 to 48 hours. Job ID: [id number]
[2020-02-16 11:50] LABS: Band 4 % (5-11); Bite Cells SLIGHT = 2-5 cells (100X) (0-1/hpf); Lymphocytes 7 % (21-51); MDiff Complete? YES; Monocytes 6 % (0-10); Neutrophil 83 % (42-75); Platelet Morphology Comment Appears Adequate; Polychromasia SLIGHT = 2-3 cells (100X) (0-2/hpf)
--- NOTE | 2020-02-16 15:10 | PRG ---
DATE OF SERVICE: 02/16/2020 SUBJECTIVE: Mr. Mart is awake. Denies any respiratory symptoms or abdominal pain. No diarrhea. He is voiding with a De catheter. OBJECTIVE: VITAL SIGNS: Essentially normal except his O2 saturations are a little bit on the low side at 93. NECK: There is no jugular vein distention. HEART: S1 and S2. Regular rate without murmurs. LUNGS: Clear to auscultation and percussion. ABDOMEN: Soft, not distended. MUSCULOSKELETAL: Left hip site about the same. LABORATORY DATA: White cell count is at 14.2, which is better; bands are down to 4; hemoglobin 9; platelets 380. Creatinine 2.18. Microbiology with MRSA, the ZOHAIB for vancomycin is 1. Two sets of blood culture with the same organism. Operative report was reviewed and this was a unipolar revision. All the other components are still in place. ASSESSMENT AND DISCUSSION: Chronic obstructive pulmonary disease, cardiomyopathy, atrial fibrillation, Watchman procedure, left hip fracture following fall, hemiarthroplasty, and now infection with methicillin-resistant Staphylococcus aureus with bacteremia. The patient is status post unipolar revision and now we will continue on vancomycin and rifampin for 6 weeks. After that, we are not going to be able to use a tetracycline because of resistance in the strain. We will have to use instead a combination of rifampin and trimethoprim/sulfamethoxazole. The dosing of sulfamethoxazole have to be adjusted for his decreased renal function. Unless there is a reversal of the perceived is decreased, all have to follow up closely. The duration of treatment with Bactrim and rifampin will be for 3 months. After that then just suppressive Bactrim low-dose for protracted period of time. Job ID: [id number]
[2020-02-16 16:35] LABS: Vancomycin, Trough 15.7 ug/mL
[2020-02-16] MEDS: Vancomycin HCl 1.25 GM in Sodium Chloride 0.9% 250 ML 250 ML IVPB SCH (17:05)
[2020-02-16] MEDS: Rosuvastatin 10 MG TAB PO SCH (21:13)
[2020-02-16] MEDS: traMADol HCl 50 MG TAB PO PRN (21:25)
[2020-02-16] MEDS: Lidocaine Patch Removal 1 EACH TOP SCH (21:29)
[2020-02-17] MEDS: Ipratropium Bromide 2.5 ml Neb NEB SCH ×3 (00:45→12:31)
--- NOTE | 2020-02-17 03:16 | PRG ---
DATE OF SERVICE: SUBJECTIVE: Patient is hospital day 2, postop day 1, status post admission for an infected right hip hemiarthroplasty. Patient has undergone revision of his right hip hemiarthroplasty to include irrigation and debridement of his right hip. The patient was cultured positive for MRSA and is currently being followed by the Infectious Disease specialist, Dr. Beaver. Today, the patient tolerated a diet. His pain is controlled and he began working with Physical and Occupational Therapy. PHYSICAL EXAMINATION: VITAL SIGNS: Stable. Patient is afebrile. GENERAL: The patient is resting comfortably in bed. He is awake, alert, conversant, and appropriate. RESPIRATIONS: Nonlabored. HEART: Regular rate and rhythm. ABDOMEN: Soft, nontender with active bowel sounds. EXTREMITIES: Neurovascularly intact x4. Postop dressing and drain are clean, dry, and intact. Drain canister has thick bloody fluid in it, does not appear to be purulent. ASSESSMENT: Status post revision of left hemiarthroplasty for left septic arthritis and infected hardware. PLAN: Plan will be to continue antibiotic therapy. The patient had a PICC line placed this morning. We will encourage physical and occupational therapy and await placement decision. Job ID: [id number]
[2020-02-17 04:20] LABS: Anion Gap 14 mmol/L (10-20); BUN (Urea Nitrogen) 70 mg/dL (8.4-25.7); Calc. Creatinine Clearance 34 mL/min (70-130); Calcium 8.2 mg/dL (7.8-10.44); Carbon Dioxide 30 mmol/L (23-31); Chloride 97 mmol/L (98-107); Estimated GFR-MDRD 29; Glucose 94 mg/dL (83-110); Magnesium 2.2 mg/dL (1.6-2.6); Phosphorus 4.8 mg/dL (2.3-4.7); Sodium 138 mmol/L (136-145)
[2020-02-17 04:24] LABS: #Lymphocytes 0.8 thou/uL (1.20-3.40); #Monocytes 0.7 thou/uL (0.11-0.59); #Neutrophils 8.1 thou/uL (1.40-6.50); %Basophils 0.1 % (0.0-1.0); %Eosinophils 0.4 % (0.0-10.0); %Lymphocytes 8.3 % (21.0-51.0); %Monocytes 7.4 % (0.0-10.0); %Neutrophils 83.8 % (42.0-75.0); Hemoglobin 8.1 g/dL (14.0-18.0); Mean Corpuscular HGB CONC 29.7 g/dL (32.0-36.0); Mean Corpuscular Volume 97.4 fL (78.0-98.0); Mean Platelet Volume 7.9 fL (7.4-10.4); Platelet Count 360 thou/uL (130-400); RBC Distribution Width 17.3 % (11.5-14.5); White Blood Cell (WBC) Count 9.7 thou/uL (4.8-10.8)
[2020-02-17] MEDS: Acetaminophen 500 MG TAB PO SCH ×3 (05:45→17:40)
[2020-02-17] MEDS: Mometasone 200 MCG/Formoterol 5 MCG 120 PUFF INHALER INH SCH (07:01)
[2020-02-17] MEDS ORDERED: Potassium Chloride 20 MEQ in Premix Bag 1 BAG IVPB SCH ×2 (07:15→09:00)
[2020-02-17] MEDS: Polyethylene Glycol 3350 17 GM Packet PO SCH (08:13)
[2020-02-17] MEDS: Lidocaine 5% Patch TD SCH (08:13)
[2020-02-17] MEDS: Fluticasone Propionate Nasal Spray 16 gm Bottle NASAL SCH (08:14)
[2020-02-17] MEDS: Gabapentin 100 MG CAP PO SCH (08:14)
[2020-02-17] MEDS: Dutasteride 0.5 MG CAP PO SCH (08:14)
[2020-02-17] MEDS: Dofetilide 0.125 MG CAP PO SCH (08:14)
[2020-02-17] MEDS: Ascorbic Acid 500 mg Chewable Tablet PO SCH (08:15)
[2020-02-17] MEDS: Ferrous Sulfate 325 MG TAB PO SCH (08:15)
[2020-02-17] MEDS: Torsemide 20 MG TAB PO SCH (08:15)
[2020-02-17] MEDS: Tamsulosin HCl 0.4 MG CAP PO SCH (08:15)
[2020-02-17] MEDS: Senokot S 8.6-50 MG TAB PO SCH (08:15)
[2020-02-17] MEDS: Aspirin 81 mg Enteric Coated Tablet PO SCH (08:15)
[2020-02-17] MEDS: Rifampin 300 MG CAP PO SCH (08:16)
[2020-02-17] MEDS: predniSONE 20 MG TAB PO SCH (08:16)
[2020-02-17 13:45] LABS: Anion Gap 17 mmol/L (10-20); BUN (Urea Nitrogen) 63 mg/dL (8.4-25.7); Calc. Creatinine Clearance 36 mL/min (70-130); Calcium 8.7 mg/dL (7.8-10.44); Carbon Dioxide 28 mmol/L (23-31); Chloride 95 mmol/L (98-107); Estimated GFR-MDRD 31; Glucose 147 mg/dL (83-110); Potassium 3.6 mmol/L (3.5-5.1); Sodium 136 mmol/L (136-145)
[2020-02-17 15:44] VITALS: BP 119/63; TEMP 98.2
[2020-02-17] MEDS: Vancomycin HCl 1.25 GM in Sodium Chloride 0.9% 250 ML 250 ML IVPB SCH (17:40)
--- NOTE | 2020-02-18 06:19 | PQF ---
JUSTINO BESS JR, GARY PA-C [id number] [facility]- [id number] CLINICAL DOCUMENTATION CLARIFICATION FORM: POST DISCHARGE Addendum to original discharge summary date: ____ Late entry note date: __ DATE: 02/18/20 ATTN: Luca Collado Please exercise your independent, professional judgment in responding to the clarification form. Clinical indicators are provided on the bottom of this form for your review Can you please further clarity the diagnosis of the patient? Please check appropriate box(es): [ ] Sepsis due to: (Pna, UTI, gangrenous gall bladder, etc.) Due to: [ ] Device (please specify) [ ] Implant [ ] Graft [ ] Infusion [ ] Severe sepsis [ ] Septic Shock [ ] Localized infection without sepsis [ ] Other diagnosis [ ] Unable to determine In addition, please specify: Present on Admission (POA): [ ] Yes [ ] No [ ] Unable to determine For continuity of documentation, please document condition throughout progress notes and discharge summary. Thank You. CLINICAL INDICATORS - SIGNS / SYMPTOMS / LABS H and P pg.1- post op day 22 status post left hemiarthroplasty H and P pg.2- VS: Temp 98.6, pulse 98, respi 20, BP 118/74 H and P pg.2- leukocytosis of unknown etiology PN 02/13 pg.1- Left hip infection with gram positive cocci Consult pg.1- Post operative left hip replacement infection with bacteremia Consult pg.3- development of MRSA infection of the operative site with bacteremia PN 4 28- Status post revision left hemiarthroplasty for left septic arthritis and infected hardware Collected 02/13 Blood culture:MRSA and staphylococcus epidermidis Collected 02/13 Joint culture:MRSA RISK FACTORS s/p left hip hemiarthroplasty- PN pg.1 Right hip infection- PN pg.1 Bacteremia- Consult pg.1 Septic arthritis- PN 02/15 79 years old- H and P pg.1 ED Notes p2 02/14 - Smoker TREATMENTS: Joint aspiration/injection 02/[address] Beaver 02/14 PICC insertion-02/14 revision of right hip hemiarthroplasty- OP report 02/14 IV fluids- MAR Vancomycin 1.5gm IV- MAR Blood culture- Microbiology (This form is maintained as a part of the permanent medical record) 2014 [employer] All Rights Reserved [email or web address]
== END 2020-02-17 17:25 | disposition swing bed (61) | DRG 467 ==
LOC: ERS 13:13 → SURG A 20:22 → OBSVTOIN 02-15 11:32
PROVIDERS: ADMIT Surgery; ATTEND Surgery
PROC: 0SRB0JZ Replacement of Left Hip Joint with Synthetic Substitute, Open Approach (ICD-10-PCS; principal; 2020-02-15)
PROC: 0SPB0JZ Removal of Synthetic Substitute from Left Hip Joint, Open Approach (ICD-10-PCS; 2020-02-15)
PROC: 0S9 Lower Joints, Drainage (ICD-10-PCS; 2020-02-15)
PROC: 02HV33Z Insertion of Infusion Device into Superior Vena Cava, Percutaneous Approach (ICD-10-PCS; 2020-02-16)
PROC: B548ZZA Ultrasonography of Superior Vena Cava, Guidance (ICD-10-PCS; 2020-02-16)
DX: T84.52XA Infection and inflammatory reaction due to internal left hip prosthesis, initial encounter (principal); I13.0 Hypertensive heart and chronic kidney disease with heart failure and stage 1 through stage 4 chronic kidney disease, or unspecified chronic kidney disease; I50.32 Chronic diastolic (congestive) heart failure; I42.9 Cardiomyopathy, unspecified; R78.81 Bacteremia; M00.052 Staphylococcal arthritis, left hip; N18.9 Chronic kidney disease, unspecified; I48.91 Unspecified atrial fibrillation; G47.33 Obstructive sleep apnea (adult) (pediatric); D63.1 Anemia in chronic kidney disease; D72.829 Elevated white blood cell count, unspecified; Y83.8 Other surgical procedures as the cause of abnormal reaction of the patient, or of later complication, without mention of misadventure at the time of the procedure; B95.62 Methicillin resistant Staphylococcus aureus infection as the cause of diseases classified elsewhere; J44.9 Chronic obstructive pulmonary disease, unspecified; Z87.891 Personal history of nicotine dependence; Z99.81 Dependence on supplemental oxygen; Z79.899 Other long term (current) drug therapy; Z99.89 Dependence on other enabling machines and devices
CPT/HCPCS: 20610; 36415; 36569; 51701; 71045; 72148; 72192; 77002; 80048; 80053; 80202; 81003; 83605; 83735; 84100; 85007; 85025; 85027; 85060; 85652; 86140; 87040; 87070; 87077; 87102; 87116; 87149; 87186; 87205; 87206; 89051; 93970; 94640; 94660; 96374; 96376; C1751; J1644; J2250; J2270; J2704; J3260; J3370; J3480; J7050; J7512; J7620; J8499

== ENCOUNTER 2020-04-08 10:26 | Day surgery (SDC) | payer MEDICARE, BC ==
[2020-04-08] MEDS ORDERED: Acetaminophen 500 MG TAB PO PRN (11:43)
[2020-04-08] MEDS ORDERED: diphenhydrAMINE 25 MG CAP PO PRN (11:44)
[2020-04-08 14:57] VITALS: BP 118/57; TEMP 97.8
== END 2020-04-08 14:59 | disposition home or self-care (01) ==
LOC: ONC/OP 10:26
PROVIDERS: ATTEND Internal Medicine Hematology & Oncology
PROC: 30233N1 Transfusion of Nonautologous Red Blood Cells into Peripheral Vein, Percutaneous Approach (ICD-10-PCS; principal; 2020-04-08)
DX: D64.9 Anemia, unspecified (principal); D69.6 Thrombocytopenia, unspecified; Z91.048 Other nonmedicinal substance allergy status
CPT/HCPCS: 36415; 36430; 82728; 86850; 86900; 86901; P9016; Q0163

== ENCOUNTER → 2020-04-25 | Day surgery (SDC) | payer MEDICARE, BC ==
[~2020-04-25] MED LIST changes: -Heparin 1,000 UNITS/ML VIAL ONE; +Iopamidol 200 41% 50 ML VIAL FS ONE
--- NOTE | 2020-04-25 10:34 | RAD ---
Left hip joint aspiration/arthrogram fluoroscopic guided HISTORY: Left hip prosthesis with persistent pain. Possible infection. FINDINGS: After explaining the procedure and answering all questions, the anterior aspect of the left hip was prepped and draped in usual sterile fashion. Sterile technique, buffered local anesthesia, fluoroscopic guidance, and an anterior approach were us ed to carefully advance the tip of a 22-gauge spinal needle to the lateral margin of the acetabular component of the left hip prosthesis. Attempt at aspiration yielded no fluid. A small amount of Isovue 300 contrast was carefully instilled into the joint capsule, opacifying the far lateral margin of the joint capsule at the level of the acetabular head component and femoral neck metallic component. Approximately 1 cc of the contrast was reaspirated and submitted to [facility] for analysis. Patient tolerated procedure well and was dismissed in good condition. IMPRESSION : No joint fluid initially. Successful arthrographic flush/aspiration of the joint capsule with small amount of contrast material . Sent to laboratory for analysis.
[2020-04-25 12:31] LABS: RBC Count-Automated (BF) 19879 /cu.mm; WBC/Nucleated-Auto (BF) 7429 uL
[2020-04-25 12:33] LABS: BF Color Red; Body Fluid Source Synovial Fluid; Clarity Cloudy/Turbid (Clear); Tube # 1
[2020-04-25 13:29] LABS: BF Segmented Neutrophils 93 %; Cell Count Non Hematic 4 %; Lymphocytes 3 %
== END ==
LOC: RAD 08:21
PROVIDERS: ATTEND Orthopaedic Surgery
PROC: 0S9B3ZX Drainage of Left Hip Joint, Percutaneous Approach, Diagnostic (ICD-10-PCS; principal; 2020-04-25)
DX: T84.84XA Pain due to internal orthopedic prosthetic devices, implants and grafts, initial encounter (principal); Z79.82 Long term (current) use of aspirin; Z91.048 Other nonmedicinal substance allergy status; Z96.642 Presence of left artificial hip joint
CPT/HCPCS: 20610; 77002; 85025; 85060; 87070; 87205; 89051

== ENCOUNTER 2020-04-28 14:47 | Outpatient (CLI) | payer MEDICARE, BC, OTHER ==
[2020-04-28 18:49] LABS: Anion Gap 22 mmol/L (10-20); BUN (Urea Nitrogen) 91 mg/dL (8.4-25.7); Calc. Creatinine Clearance 0 mL/min (70-130); Calcium 8.3 mg/dL (7.8-10.44); Carbon Dioxide 24 mmol/L (23-31); Chloride 94 mmol/L (98-107); Estimated GFR-MDRD 23; Glucose 140 mg/dL (83-110); Potassium 3.8 mmol/L (3.5-5.1); Sodium 136 mmol/L (136-145)
[2020-04-29 12:55] LABS: SARS-CoV-2 MS2 Positive; SARS-CoV-2 N Gene Negative; SARS-CoV-2 S Gene Negative; SARS-CoV-2 orf1ab Negative
== END 2020-04-28 14:48 | disposition home or self-care (01) ==
LOC: LABBT 14:47
PROVIDERS: ATTEND Orthopaedic Surgery
DX: Z01.812 Encounter for preprocedural laboratory examination (principal); Z11.59 Encounter for screening for other viral diseases; S72.002A Fracture of unspecified part of neck of left femur, initial encounter for closed fracture
CPT/HCPCS: 80048; U0003; 87635

== ENCOUNTER 2020-05-03 11:53 | Inpatient (IN) | payer MEDICARE, BC, OTHER ==
[2020-05-03] MEDS ORDERED: PHENYLEPHRINE-NS 100 MCG/ML 10 ML SYRINGE ONE (12:44)
[2020-05-03] MEDS ORDERED: Lidocaine 1.5% w/Epi 1:200K 30 ML VIAL (Epid Use) ONE (12:44)
[2020-05-03] MEDS ORDERED: Lidocaine 1% PF 5 ML VIAL ONE (12:44)
[2020-05-03] MEDS ORDERED: Sodium Chloride 0.9% 100 ML ONE (13:16)
[2020-05-03] MEDS ORDERED: Vancomycin 1.5 GRAM/300 ML BAG ONE (13:16)
[2020-05-03] MEDS ORDERED: Tranexamic Acid 1,000 MG/10 ML VIAL ONE (13:16)
[2020-05-03] MEDS ORDERED: Fentanyl 100 MCG/2 ML VIAL ONE ×5 (13:25→21:40)
[2020-05-03] MEDS ORDERED: Midazolam HCl 2 mg/2 ml Vial ONE (13:28)
[2020-05-03] MEDS ORDERED: Bupivacaine 0.75% W/DEXTROSE 8.25% 2 ML AMP ONE (13:48)
[2020-05-03] MEDS ORDERED: Tobramycin Sulfate 1.2 GM VIAL ONE (14:27)
[2020-05-03] MEDS ORDERED: Hydrocortisone Sod Succ/PF 100 mg/2 ml Vial ONE (15:10)
[2020-05-03] MEDS ORDERED: Propofol 500 MG/50 ML VIAL ONE (15:59)
[2020-05-03] MEDS ORDERED: Phenylephrine 10 MG/ML VIAL ONE (17:04)
[2020-05-03] MEDS ORDERED: Bupivacaine/Epinephrine 0.25% 30 ML VIAL ONE (17:06)
[2020-05-03] MEDS ORDERED: Promethazine HCl 25 MG/ML VIAL IM PRN ×3 (17:42→18:00)
[2020-05-03] MEDS ORDERED: Ondansetron HCl/PF 4 MG/2 ML Vial IVP PRN (17:42)
[2020-05-03] MEDS ORDERED: Promethazine HCl 25 MG/ML VIAL SLOW IVP PRN (17:42)
[2020-05-03] MEDS ORDERED: Fentanyl 100 MCG/2 ML VIAL SLOW IVP PRN (17:54)
[2020-05-03] MEDS ORDERED: Zolpidem Tartrate 5 MG TAB PO PRN ×2 (17:54→18:00)
[2020-05-03] MEDS ORDERED: Ondansetron PF 4 MG/2 ML Vial IVP PRN ×2 (17:54→18:00)
[2020-05-03] MEDS ORDERED: Acetaminophen 325 MG TAB PO PRN (17:54)
[2020-05-03] MEDS ORDERED: diphenhydrAMINE 25 MG CAP PO PRN ×2 (17:54→18:00)
[2020-05-03] MEDS ORDERED: Albuterol 200 PUFF (6.7GM INHALER) INH PRN (17:58)
[2020-05-03] MEDS ORDERED: Naloxone HCl 0.4 mg/ml Vial IVP PRN (18:00)
[2020-05-03] MEDS ORDERED: Hydrocerin (Eucerin) Cream 120 gm Jar TOP PRN (18:00)
[2020-05-03] MEDS ORDERED: Naloxone HCl 0.4 mg/ml Vial IV PRN (18:00)
[2020-05-03] MEDS ORDERED: diphenhydrAMINE 50 MG/ML VIAL IVP PRN (18:00)
[2020-05-03] MEDS ORDERED: Bupivacaine 0.25% 10 ML VIAL EPIDURAL PRN (18:00)
[2020-05-03] MEDS ORDERED: diphenhydrAMINE 50 MG/ML VIAL IM PRN (18:00)
[2020-05-03] MEDS ORDERED: Promethazine HCl 25 MG SUPP PR PRN (18:00)
[2020-05-03] MEDS ORDERED: Albumin 5% 500 ML ONE (18:54)
--- NOTE | 2020-05-03 19:06 | OP ---
DATE OF PROCEDURE: 05/03/2020 TITLE OF PROCEDURE: 1. Removal of cemented hip prosthesis. 2. Bipolar hemiarthroplasty of the left hip. TELEGRAPH INSPECTOR: Freeman Harrison MD BLOOD LOSS: About 400. SPECIMENS: Culture. DRAINS: None. COMPLICATIONS: None. IMPLANTS USED: [place] #5 cemented long-stem revision implant with a +5 and 28 head and a 53 mm outside diameter bipolar. DESCRIPTION OF PROCEDURE: The patient was taken to the operating room where spinal anesthesia was induced. He received vancomycin preoperatively. He was placed in right lateral decubitus position. Left leg was prepped and draped in the usual sterile fashion. I opened up the old scar. Dissection was carried down through the IT band, which was opened distally, extended proximally. Self-retaining retractor was placed in the anterior 1/3 and the abductor mechanism was taken down. The hip joint was full of pus. Pus was irrigated. I performed a synovectomy in the hip. The stem was then removed from the cement and there was some great difficulty. The cement was removed without performing osteotomy of the femur, although there was a little crack in the proximal femur due to bone loss from the infection. I then reamed the femur to 13 mm after scraping his canal, removing as much cement as possible. I was not able to retrieve the cement plug. The femoral canal was irrigated and the whole hip was irrigated with 5 L of irrigation, treated with Betadine. After this completed, I used another 5 L of clear. I used a 4 g of vancomycin, 3 of tobramycin, and 1 batch of cement and cemented long-stem into place. Irrigation performed. Assembled the head, impacted onto the trunnion. Hip was reduced. The hip appeared to be fairly stable with the range of motion. Abductors were repaired with #2 Vicryl and #2 Quill, subcu closed with 0 Quill, skin was closed with 2-0 Prolene, and sterile dressing was applied. Job ID: [id number]
--- NOTE | 2020-05-03 19:06 | RAD ---
LEFT HIP: 05/03/20 Four views. HISTORY: Postop total hip. Comparison made to hip films of 02/13/20. FINDINGS/IMPRESSION: Left hip prosthesis again noted. A cerclage wire was been placed around the proximal femur since the prior study. Components show no significant change in position or alignment. POS: AGW
[2020-05-03 19:08] LABS: #Eosinphils 0.1 thou/uL (0.0-0.7); #Lymphocytes 0.5 thou/uL (1.20-3.40); #Monocytes 0.5 thou/uL (0.11-0.59); #Neutrophils 11.5 thou/uL (1.40-6.50); %Basophils 0.1 % (0.0-1.0); %Eosinophils 0.5 % (0.0-10.0); %Lymphocytes 4.2 % (21.0-51.0); %Monocytes 4.1 % (0.0-10.0); %Neutrophils 91.1 % (42.0-75.0); Hemoglobin 6.8 g/dL (14.0-18.0); Mean Corpuscular HGB CONC 30.2 g/dL (32.0-36.0); Mean Corpuscular Hemoglobin 26.8 pg (27.0-31.0); Mean Corpuscular Volume 88.5 fL (78.0-98.0); Mean Platelet Volume 7.9 fL (7.4-10.4); Platelet Count 512 thou/uL (130-400); RBC Distribution Width 18.3 % (11.5-14.5); Red Blood Cell (RBC) Count 2.55 mill/uL (4.70-6.10); White Blood Cell (WBC) Count 12.6 thou/uL (4.8-10.8)
[2020-05-03] MEDS ORDERED: Furosemide 20 MG/2 ML VIAL SLOW IVP SCH (20:00)
[2020-05-03] MEDS ORDERED: Senokot S 8.6-50 MG TAB PO SCH (21:00)
[2020-05-03] MEDS ORDERED: Non-Formulary Item 1 EACH (Ferrous Sulfate [Ferrous Sulfate] 325 MG) PO SCH (21:00)
[2020-05-03] MEDS: Acetaminophen 500 MG TAB PO SCH ×2 (22:28)
[2020-05-03] MEDS: traMADol HCl 50 MG TAB PO PRN (22:28)
[2020-05-03] MEDS: Aspirin 81 mg Enteric Coated Tablet PO SCH (22:29)
[2020-05-03] MEDS: Gabapentin 100 MG CAP PO SCH (22:29)
[2020-05-03] MEDS: Dofetilide 0.125 MG CAP PO SCH (22:29)
[2020-05-03] MEDS: Rosuvastatin 10 MG TAB PO SCH (22:30)
[2020-05-03] MEDS: Cyclobenzaprine 10 MG TAB PO PRN (22:30)
[2020-05-03] MEDS: Torsemide 20 MG TAB PO SCH (22:30)
[2020-05-03] MEDS: Sodium Chloride 0.9% 1,000 ML IV SCH (22:33)
[2020-05-03] MEDS: Ipratropium Bromide 2.5 ml Neb NEB SCH (22:37)
[2020-05-03] MEDS: Mometasone 200 MCG/Formoterol 5 MCG 120 PUFF INHALER INH SCH (22:38)
[2020-05-04] MEDS: Ipratropium Bromide 2.5 ml Neb NEB SCH ×4 (00:40→19:21)
[2020-05-04] MEDS ORDERED: Vancomycin 1.5 GRAM/300 ML BAG 1.5 GM in Premix Bag 1 BAG IVPB SCH (02:00)
[2020-05-04] MEDS: traMADol HCl 50 MG TAB PO PRN ×3 (04:33→20:25)
[2020-05-04] MEDS: Acetaminophen 500 MG TAB PO SCH ×4 (04:34→23:58)
[2020-05-04] MEDS: Sodium Chloride 0.9% 1,000 ML IV SCH (04:34)
[2020-05-04] MEDS: Mometasone 200 MCG/Formoterol 5 MCG 120 PUFF INHALER INH SCH ×2 (07:06→19:24)
[2020-05-04] MEDS ORDERED: Furosemide 40 MG/4 ML VIAL SLOW IVP SCH (07:30)
[2020-05-04] MEDS: Tamsulosin HCl 0.4 MG CAP PO SCH (08:10)
[2020-05-04] MEDS: Dutasteride 0.5 MG CAP PO SCH (08:10)
[2020-05-04] MEDS: Senokot S 8.6-50 MG TAB PO SCH ×2 (08:11→20:27)
[2020-05-04] MEDS: Ferrous Gluconate 324 MG TAB PO SCH ×2 (08:11→20:27)
[2020-05-04] MEDS: Multivitamin W/ Minerals 1 TAB PO SCH (08:11)
[2020-05-04] MEDS: predniSONE 20 MG TAB PO SCH (08:11)
[2020-05-04] MEDS: Gabapentin 100 MG CAP PO SCH ×2 (08:11→20:28)
[2020-05-04] MEDS: Torsemide 20 MG TAB PO SCH (08:11)
[2020-05-04] MEDS: Polyethylene Glycol 3350 17 GM Packet PO SCH (08:12)
[2020-05-04] MEDS: Fluticasone Propionate Nasal Spray 16 gm Bottle NASAL SCH (08:12)
[2020-05-04] MEDS: Aspirin 81 mg Enteric Coated Tablet PO SCH ×2 (08:12→20:27)
[2020-05-04] MEDS: Dofetilide 0.125 MG CAP PO SCH ×2 (08:12→20:27)
[2020-05-04] MEDS: Lidocaine 5% Patch TD SCH (08:12)
[2020-05-04 08:35] LABS: Hemoglobin 7.7 g/dL (14.0-18.0); Mean Corpuscular HGB CONC 31.4 g/dL (32.0-36.0); Mean Corpuscular Hemoglobin 27.5 pg (27.0-31.0); Mean Corpuscular Volume 87.6 fL (78.0-98.0); Mean Platelet Volume 7.4 fL (7.4-10.4); Platelet Count 360 thou/uL (130-400); RBC Distribution Width 16.6 % (11.5-14.5); Red Blood Cell (RBC) Count 2.81 mill/uL (4.70-6.10); White Blood Cell (WBC) Count 11.9 thou/uL (4.8-10.8)
--- NOTE | 2020-05-04 08:45 | PDOC.HHP ---
Hospitalist HPI - History of Present Illness [facility] History of Present Illness: Mr. Mart is a 89 year old male who presents for medical management s/p left hip surgery. He underwent a L hemiarthroplasty of the hip 01/2020 with subsequent revision 02/16/2020 due to infection. He had a second THR today by Dr. Salamanca from orthopedics. Patient currently reports some ongoing left hip and leg pain, but this improves with his pain medication. He was able to stand up and walk in the room with his walker and assistance from PT. He currently denies any chest pain, shortness of breath, dizziness, weakness, headache. Hospitalist ROS - Review of Systems ENT: reports: other (difficulty hearing without hearing aids) Respiratory: denies: cough, dry, shortness of breath, hemoptysis, SOB with excertion, pleuritic pain, sputum, wheezing, other Cardiovascular: denies: chest pain, palpitations, orthopnea, paroxysmal noc. dyspnea, edema, light headedness, other Gastrointestinal: denies: nausea, vomiting, abdominal pain, diarrhea, constipation, melena, hematochezia, other - Medication Medications: Active Medications Generic Name Dose Route Start Last Admin Trade Name Freq PRN Reason Stop Dose Admin Acetaminophen 1,000 mg 05/03/20 18:00 05/04/20 04:34 Tylenol PO 1,000 mg Q6HR SHORTY Administration Aspirin 81 mg 05/03/20 21:00 05/04/20 08:12 Ecotrin PO 81 mg BID SHORTY Administration Cyclobenzaprine HCl 5 mg 05/03/20 17:58 05/03/20 22:30 Flexeril PO 5 mg TIDPRN PRN Administration Muscle Spasm Dofetilide 0.125 mg 05/03/20 21:00 05/04/20 08:12 Tikosyn PO 0.125 mg BID SHORTY Administration Dutasteride 0.5 mg 05/04/20 09:00 05/04/20 08:10 Avodart PO 0.5 mg DAILY SHORTY Administration Ferrous Gluconate 324 mg 05/04/20 09:00 05/04/20 08:11 Fergon PO 324 mg BID SHORTY Administration Fluticasone Propionate 0 gm 05/04/20 09:00 05/04/20 08:12 Flonase Nasal [place] NASAL Not Given DAILY SHORTY Furosemide 40 mg 05/04/20 07:30 05/04/20 08:11 Lasix SLOW IVP 05/04/20 12:00 40 mg NOW SHORTY Administration Gabapentin 100 mg 05/03/20 21:00 05/04/20 08:11 Neurontin PO 100 mg BID SHORTY Administration Ipratropium [place] 2.5 ml 05/03/20 19:00 05/04/20 07:05 Atrovent NEB 2.5 ml [id number] SHORTY Administration Iron/Minerals/Multivitamins 1 tab 05/04/20 09:00 05/04/20 08:11 Theragran M PO 1 tab DAILY SHORTY Administration Lidocaine 1 patch 05/04/20 09:00 05/04/20 08:12 Lidoderm 5% Patch TD 1 patch DAILY SHORTY Administration Mometasone Furoate/Formoterol Fumar 2 puff 05/03/20 18:30 05/04/20 07:06 Dulera 200 Mcg/5 Mcg Inhaler INH 2 puff BID-RT SHORTY Administration Pantoprazole Sodium 40 mg 05/04/20 09:00 05/04/20 08:10 Protonix PO 40 mg DAILY SHORTY Administration Polyethylene Glycol 17 gm 05/04/20 09:00 05/04/20 08:12 Miralax PO 17 gm DAILY SHORTY Administration Prednisone 20 mg 05/04/20 09:00 05/04/20 08:11 Prednisone PO 20 mg DAILY SHORTY Administration Rosuvastatin Calcium 10 mg 05/03/20 21:00 05/03/20 22:30 Crestor PO 10 mg HS SHORTY Administration Senna/Docusate Sodium 2 tab 05/04/20 09:00 05/04/20 08:11 Senokot S PO 2 tab BID SHORTY Administration Sertraline HCl 50 mg 05/03/20 21:00 05/03/20 22:30 Zoloft PO 50 mg HS SHORTY Administration Tamsulosin HCl 0.4 mg 05/04/20 09:00 05/04/20 08:10 Flomax PO 0.4 mg DAILY SHORTY Administration Torsemide 40 mg 05/03/20 21:00 05/04/20 08:11 Demadex PO 40 mg BID SHORTY Administration Tramadol HCl 100 mg 05/03/20 18:00 05/04/20 04:33 Ultram PO 100 mg Q6H PRN Administration Moderate Pain 4-6 Hospitalist History - Past Medical History Source: patient, old records Cardiac: reports: AFIB (s/p Watchmen procedure), CHF (diastolic), HTN, Hyperlipidemia Pulmonary: reports: COPD, Other (Sleep Apnea) Heme/Onc: reports: Other (Anemia of chronic disease requiring transfusion) Renal/: reports: Chronic renal insuff (stage 4), Benign prostatic enlarg. - Past Surgical History Past Surgical History: reports: Total Hip Replacement (Left) Other Surgical History: Watchman procedure - Family History Family History: reports: cerebrovascular accident, diabetes mellitus, hypertension - Social History Smoking Status: Former smoker Alcohol: reports: Occassional (socially) Drugs: reports: none - Exam General Appearance: NAD, awake alert Eye: PERRL, anicteric sclera ENT: normocephalic atraumatic Neck: supple, symmetric Heart - other findings: irregularly irregular Respiratory: CTAB, no wheezes, no rales, no ronchi Gastrointestinal: soft, non-tender Extremities: no cyanosis, 2+ LE edema (pitting) Psychiatric: normal affect, normal behavior, A&O x 3 Hospitalist Results - Labs Result Diagrams: 05/04/20 08:21 05/04/20 08:21 Lab results: WBC 11.9 thou/uL (4.8-10.8) H 05/04/20 08:21 Hgb 7.7 g/dL (14.0-18.0) L 05/04/20 08:21 Hct 24.6 % (42.0-52.0) L 05/04/20 08:21 MCV 87.6 fL (78.0-98.0) 05/04/20 08:21 Plt Count 360 thou/uL (130-400) 05/04/20 08:21 Neutrophils % 91.1 % (42.0-75.0) H 05/03/20 19:00 - Radiology Interpretation Chest x-ray Status: image reviewed by ca Hospitalist H&P A/P - Plan Plan: Left hip infection s/p arthroplasty - Mngt per Ortho Chronic diastolic HF COPD Chronic hypoxic resp failure on 3.5 L O2 at home NNEKA/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, will hold torsemide and Losartan and avoid nephrotoxic drugs Chronic Anemia requiring blood transfusion - 2 units given last night Par Afib s/p watchman - on Tikosyn with renal dosing BPH BRAD- on CPAP
[2020-05-04] MEDS ORDERED: hydrALAZINE 20 MG/ML VIAL SLOW IVP PRN (08:49)
[2020-05-04 08:51] LABS: ALT (SGPT) 10 U/L (8-55); AST (SGOT) 13 U/L (5-34); Albumin 3.2 g/dL (3.4-4.8); Alkaline Phosphatase 45 U/L (40-110); Anion Gap 19 mmol/L (10-20); Bilirubin, Total 0.4 mg/dL (0.2-1.2); Calc. Creatinine Clearance 19 mL/min (70-130); Calcium 7.7 mg/dL (7.8-10.44); Carbon Dioxide 23 mmol/L (23-31); Chloride 95 mmol/L (98-107); Estimated GFR-MDRD 15; Globulin 2.1 g/dL (2.4-3.5); Glucose 84 mg/dL (83-110); Magnesium 2.9 mg/dL (1.6-2.6); Potassium 3.2 mmol/L (3.5-5.1); Protein, Total 5.3 g/dL (5.8-8.1); Sodium 134 mmol/L (136-145)
[2020-05-04 08:54] LABS: Troponin I 0.059 ng/mL (< 0.028)
[2020-05-04] MEDS ORDERED: Aspirin 81 mg Enteric Coated Tablet PO SCH (09:00)
[2020-05-04] MEDS ORDERED: Famotidine 20 MG TAB PO SCH (09:00)
[2020-05-04] MEDS ORDERED: Losartan 25 MG TAB PO SCH (09:00)
[2020-05-04 09:03] LABS: BUN (Urea Nitrogen) 119 mg/dL (8.4-25.7)
--- NOTE | 2020-05-04 09:42 | PRG ---
DATE OF SERVICE: 05/04/2020 This is Drea Calzada PA-C dictating a report for Freeman Harrison MD. SUBJECTIVE: The patient reports left hip pain, described as soreness. He is currently eating breakfast. States he did well overnight. Has not been up with Physical Therapy yet. OBJECTIVE: VITAL SIGNS: Including current vital signs; blood pressure 107/58, pulse of 73, respiratory rate of 16, and temperature 98 degrees. GENERAL: The patient is awake and alert. He is wearing supplemental O2. He is pleasant and cooperative with exam today. EXTREMITIES: Evaluation of his left hip shows surgical dressing is clean, dry, and intact. Leg lengths are equal. He is able to move his foot and his toes. Distal neurovascular status is intact. LABORATORY DATA: From today shows a hemoglobin of 7.7, hematocrit of 24.6. ASSESSMENT AND PLAN: The patient is postop day #1 left hip hemiarthroplasty revision surgery for methicillin-resistant Staphylococcus aureus. Current culture is growing. The patient on antibiotics. He may ambulate with physical therapy. We will continue to follow. Job ID: [id number]
[2020-05-04] MEDS ORDERED: Potassium Chloride 20 MEQ TAB PO SCH ×2 (09:45→17:00)
--- NOTE | 2020-05-04 09:58 | RAD ---
CHEST 1 VIEW: HISTORY: Shortness of breath. COMPARISON: Radiograph 03/14/2020. FINDINGS: Multiple old rib fractures. Mild thickening of the right major fissure. Scarring in the left lung b ase. No pneumothorax. Heart size is enlarged. Dense vascular calcifications. IMPRESSION: Similar examination of the chest. Likely left basilar scarring and chronic thickening of the right m ajor fissure. POS: HOME
[2020-05-04] MEDS: Albumin 25% 25 GM/100 ML BOT IVPB SCH ×2 (10:35→17:48)
[2020-05-04] MEDS: fentaNYL Citrate/PF 500 MCG, Bupivacaine 10 ML in Sodium Chloride 0.9% 80 ML EPIDURAL SCH (10:49)
--- NOTE | 2020-05-04 13:59 | SPC ---
PICC PLACEMENT ULTRASOUND-GUIDED VENOUS ACCESS: (Peripherally inserted central catheter) DATE: 05/04/2020 HISTORY: 79-year-old male requiring long-term IV antibiotics to treat septic left hip. TECHNIQUE: Catheter caliber: 5 Singaporean Catheter trim length:55 cm Catheter lumen number:single Catheter tip location:Superior vena cava/right atrial junction Vein accessed:left basilic Total fluoroscopy time: 1.4 min. Dose area product: 3305 mGy*cm^2 Signed, informed consent was obtained. A tourniquet was applied at the proximal aspect of the arm. Th e arm was prepped and draped in the usual sterile fashion. A 25-gauge needle was used to applied buffered lidocaine superficially. The vein was punctured with a 21-gauge micropuncture needle under u ltrasound guidance. A 0.018 inch guidewire was advanced through the micropuncture needle and into the vein. Under fluoroscopic guidance, the guidewire was advanced to the superior vena cava. The PICC was flushed and trimmed to the appropriate length. The micropuncture needle was exchanged over the guidewire for a 5 Singaporean peel-away dilator sheath. The dilator was exchanged over the guidewire for t he PICC, which was then further advanced under fluoroscopy. The sheath and guidewire were removed. The PICC was flushed again and secured in place at the arm after adjustment of tip position. The felice ent tolerated the procedure well. There was no complication. IMPRESSION: Successful placement of PICC (peripherally inserted central catheter).
[2020-05-04] MEDS ORDERED: predniSONE 20 MG TAB PO SCH (14:15)
[2020-05-04 14:25] LABS: Hemoglobin 7.1 g/dL (14.0-18.0); Platelet Count 337 thou/uL (130-400)
[2020-05-04 14:36] LABS: Anion Gap 20 mmol/L (10-20); Calc. Creatinine Clearance 18 mL/min (70-130); Calcium 7.8 mg/dL (7.8-10.44); Carbon Dioxide 22 mmol/L (23-31); Chloride 95 mmol/L (98-107); Estimated GFR-MDRD 14; Glucose 129 mg/dL (83-110); Potassium 3.5 mmol/L (3.5-5.1); Sodium 133 mmol/L (136-145)
[2020-05-04 14:43] LABS: Troponin I 0.035 ng/mL (< 0.028)
[2020-05-04 14:47] LABS: BUN (Urea Nitrogen) 118 mg/dL (8.4-25.7)
[2020-05-04] MEDS: Lidocaine Patch Removal TOP SCH (20:28)
[2020-05-04] MEDS: Rosuvastatin 10 MG TAB PO SCH (20:28)
[2020-05-04] MEDS: Saccharomyces boulardii 250 MG CAP PO SCH (20:28)
[2020-05-04] MEDS: Doxycycline 100 MG CAP PO SCH (20:31)
--- NOTE | 2020-05-04 20:31 | CON ---
DATE OF CONSULTATION: 05/04/2020 HISTORY OF PRESENT ILLNESS: An 79-year-old gentleman, who I had seen in January of this year when he presented with a history of BPH, atrial fibrillation with the Watchman procedure, hypertension, and COPD, who sustained a left femoral neck fracture at the beginning of January and then had a left hemiarthroplasty with a postop infection due to MRSA. He had a revision at the end of the same month by Dr. Harrison, that was a hemiarthroplasty revision and he was given vancomycin and rifampin for the usual duration. After that presumably had to be switched to three months of rifampin and Bactrim. The patient was transferred to [facility] to complete his treatment there. There is a discharge summary from March 31, so he switched to rifampin and Bactrim without major issues. He did have prednisone requirements because of COPD exacerbation, so that might be a contributing factor to the poor outcome. So, he was supposed to continue on rifampin and Bactrim and the prescription was sent over there. I have not seen him in followup in the clinic ; however. There is obvious worsening recrudescence of the problem at the beginning of April and there was a joint aspiration just performed by Dr. Fernandes, so a small amount of contrast material was sent about 1 mL of contrast that was reaspirated and submitted for analysis on April 25 and from that aspirate, MRSA was retrieved, so now he was admitted and had the explantation of the joint and has a new implant in place. At this time, it is a bipolar hemiarthroplasty of left hip and this has a long-stem revision. Currently, Mr. Mart is sitting by the bed. He has very severe hearing impairment and basically could not communicate. Unfortunately, he does not have his hearing aids. Did not appear to be in distress. By writing notes, I was able to ascertain that he was not having dyspnea or abdominal pain. Still has a De catheter in place. PAST MEDICAL HISTORY: CKD, hypertension, COPD with O2 nasal cannula at home and CPAP machine, atrial fibrillation, BPH, Watchman procedure, left hip replacement following hip fracture with a postop infection by MRSA and now the patient completed treatment with vancomycin and rifampin. Switched to Bactrim and rifampin. I am not clear if he was actually taking the medication. It is not clear to me because I could not interview the patient regarding that, but now he has failed that revision and had a second revision this time is a bipolar revision. SOCIAL HISTORY: Former smoker. He used to drink, but not any more. FAMILY HISTORY: Noncontributory. ALLERGIES: NONE. MEDICATION: List at the moment includes; 1. Albumin. 2. Proventil. 3. DuoNeb. 4. Benadryl. 5. Tikosyn. 6. Fluticasone. 7. Mometasone. 8. Ondansetron. 9. K-Dur. PHYSICAL EXAMINATION: VITAL SIGNS: T-max 98, blood pressure 98/56, pulse 78, respirations 14, and O2 saturation 96% on room air. GENERAL: Does not appear in distress. SKIN: Shows the surgical site with no major findings. He has a peripheral IV access and a De catheter and he has a PICC line as well inserted in the left side, left upper extremity. HEENT: Ocular movements conjugate. Oral cavity not remarkable. LUNGS: With diminished lungs sounds. No crackles or wheezing. HEART: S1 and S2. Regular rate. ABDOMEN: Soft and not distended or tender. No bladder distention. EXTREMITIES: Some osteoarthrosis in knees and ankles. Pulses 1+ in dorsalis pedis. Plantar responses are flexor. NEUROLOGIC: He is awake. He has a hard time following commands because of severe hearing impairment, but he seems to be oriented. LABORATORY DATA: White cell count 12.6 and 11.9, hemoglobin is up to 7.1, platelets 337, and 91% neutrophils. Creatinine is 4.16. ASSESSMENT AND DISCUSSION: 1. Chronic kidney disease, stage 4 to 5. 2. Recurring left hip infection, which started as a postop infection following left hip fracture and hemiarthroplasty. Now, the patient has fairly similar susceptibilities in the methicillin-resistant Staphylococcus aureus except at this time, to rifampin the current strain is resistant and doxycycline susceptible, so we are not going to be able to use rifampin for this pathogen, we are going to have use doxycycline and vancomycin for the treatment. I would treat him for 3 months with doxycycline, vancomycin and then transition to suppressive therapy with doxycycline, maybe Bactrim adjusted for renal function and treat him for another 3 months with those two drugs and that is chronic suppressive therapy with tetracycline after that. Some rifampin and then transition to oral suppressive therapy after the initial phase, the suppression would again have to be with rifampin and dose adjusted. Job ID: [id number] MTDD
--- NOTE | 2020-05-04 21:44 | CON ---
DATE OF CONSULTATION: REASON FOR CONSULTATION: Elevated creatinine and uremia. HISTORY OF PRESENT ILLNESS: This is a very pleasant 79-year-old gentleman who presented to the hospital for left hip surgery, underwent a left hemiarthroplasty with subsequent revision and a second THR. Today, the patient's baseline creatinine was 3.8 at 8:00 this morning and has increased to 4.16 today. Prior to that, his last available creatinine was 2.7 on April 28 and in March was 1.7. He has had multiple episodes of acute kidney injury. PAST MEDICAL HISTORY: Significant for atrial fibrillation, congestive heart failure, hypertension, hyperlipidemia, COPD, anemia, BPH, acute kidney injury, history of hip surgeries, Watchman procedure. FAMILY HISTORY: Negative for ESRD. ALLERGIES: REVIEWED. MEDICATIONS: Home medication list reviewed. Hospital medication list reviewed. REVIEW OF SYSTEMS: A 15-point review of system was performed and negative except for positive noted above. HEENT: Eyes intact, no diplopia. Ears: No hearing loss or earache. Nose: No discharge or bleeding. Chest: No cough or phlegm. Abdomen: No nausea or vomiting. Genitourinary: No hematuria. No De catheter. Musculoskeletal: No low back pain. No joint swelling or pain. Neurological: No syncope. No seizures. Skin: No complaints of rash or itching. Psychiatric: No depression. Constitutional: No weight loss or loss of appetite. PHYSICAL EXAMINATION: General: The patient is awake and alert. Vital Signs: Afebrile, pulse 75, breathing at 16, blood pressure was 86/50. HEENT: Head normocephalic and atraumatic. Eyes intact, no ulcers. Nose intact, no ulcers. Ears intact, no ulcers. Neck: Supple. No JVD. Chest: Symmetrical and clear. Cardiovascular: Shows S1 and S2, no rub, no murmur. Gastrointestinal: Abdomen is soft, bowel sounds positive. Extremities: Show no ulcers. Lower extremities have 4+ edema. Skin: Shows no rash or petechiae. Musculoskeletal: Shows no joint swelling or stiffness. Genitourinary: Shows no De or CVA tenderness. Neurologic: Motor intact. Cranial nerves intact. LABORATORY DATA: Labs reviewed. ASSESSMENT AND PLAN: 1. Acute kidney injury with chronic kidney disease multifactorial in the setting of congestive heart failure, history of sepsis, low blood pressure. I would recommend stopping the doxycycline and changing to another agent as that can cause elevated BUN and continue furosemide. 2. Anemia, stable. Medication based on GFR appropriate. No indication for dialysis at this time. 3. Congestive heart failure. Continue diuretics. Medication based on GFR. I would recommend stopping the potassium chloride and following daily potassium. Agree with stopping the Cozaar. Job ID: [id number]
[2020-05-04 22:19] LABS: Bilirubin Negative (Negative); Blood, Urine Negative (Negative); Clarity Clear (Clear); Glucose, Urine (Dipstick) Normal (Negative); Ketone, Urine Negative (Negative); Leukocyte Negative Leu/uL (Negative); Mucous/LPF 1+ LPF (<2+); Nitrite Negative (Negative); Protein, Urine (Dipstick) 10 mg/dL (Neg-Trace); RBC/HPF 0-3 HPF (0-3); Specific Gravity, Urine 1.015 (1.002-1.036); Squamous Epithelial 0-3 HPF (0-3); Urobilinogen Normal mg/dL (Less than 2); WBC/HPF 0-3 HPF (0-3); pH, Urine 5.5 (5.0-9.0)
[2020-05-04 22:25] LABS: Bacteria/HPF Rare-Few HPF (None Seen)
[2020-05-04 22:26] LABS: Calcium Oxalate Crystals Rare HPF (None Seen)
[2020-05-05] MEDS: Ipratropium Bromide 2.5 ml Neb NEB SCH ×4 (00:05→19:24)
[2020-05-05] MEDS: fentaNYL Citrate/PF 500 MCG, Bupivacaine 10 ML in Sodium Chloride 0.9% 80 ML EPIDURAL SCH ×2 (02:32→18:05)
[2020-05-05 02:53] LABS: Hemoglobin 7.3 g/dL (14.0-18.0); Mean Corpuscular Hemoglobin 27.7 pg (27.0-31.0); Mean Corpuscular Volume 86.6 fL (78.0-98.0); Mean Platelet Volume 7.7 fL (7.4-10.4); Platelet Count 345 thou/uL (130-400); RBC Distribution Width 16.6 % (11.5-14.5); Red Blood Cell (RBC) Count 2.64 mill/uL (4.70-6.10); White Blood Cell (WBC) Count 12.3 thou/uL (4.8-10.8)
[2020-05-05] MEDS: Albumin 25% 25 GM/100 ML BOT IVPB SCH ×2 (03:03→09:08)
[2020-05-05 03:06] LABS: Vancomycin, Random 32.4 ug/mL (See Comment)
[2020-05-05 03:29] LABS: Albumin 3.5 g/dL (3.4-4.8); Anion Gap 22 mmol/L (10-20); Calc. Creatinine Clearance 17 mL/min (70-130); Calcium 7.8 mg/dL (7.8-10.44); Carbon Dioxide 22 mmol/L (23-31); Chloride 94 mmol/L (98-107); Estimated GFR-MDRD 13; Glucose 155 mg/dL (83-110); Magnesium 3.2 mg/dL (1.6-2.6); Phosphorus 8.6 mg/dL (2.3-4.7); Potassium 3.6 mmol/L (3.5-5.1); Sodium 134 mmol/L (136-145)
[2020-05-05 03:41] LABS: BUN (Urea Nitrogen) 121 mg/dL (8.4-25.7); BUN/Creatinine Ratio 27.31
[2020-05-05] MEDS: Acetaminophen 500 MG TAB PO SCH ×4 (05:37→23:02)
[2020-05-05] MEDS: Mometasone 200 MCG/Formoterol 5 MCG 120 PUFF INHALER INH SCH ×2 (07:52→19:25)
[2020-05-05] MEDS ORDERED: Losartan 25 MG TAB PO SCH (09:00)
[2020-05-05] MEDS: Doxycycline 100 MG CAP PO SCH (09:04)
[2020-05-05] MEDS: Polyethylene Glycol 3350 17 GM Packet PO SCH (09:05)
[2020-05-05] MEDS: Lidocaine 5% Patch TD SCH (09:05)
[2020-05-05] MEDS: Gabapentin 100 MG CAP PO SCH ×2 (09:05→21:04)
[2020-05-05] MEDS: Senokot S 8.6-50 MG TAB PO SCH ×2 (09:05→21:05)
[2020-05-05] MEDS: Multivitamin W/ Minerals 1 TAB PO SCH (09:06)
[2020-05-05] MEDS: Ferrous Gluconate 324 MG TAB PO SCH ×2 (09:06→21:04)
[2020-05-05] MEDS: Aspirin 81 mg Enteric Coated Tablet PO SCH ×2 (09:06→21:05)
[2020-05-05] MEDS: predniSONE 20 MG TAB PO SCH (09:06)
[2020-05-05] MEDS: Tamsulosin HCl 0.4 MG CAP PO SCH (09:07)
[2020-05-05] MEDS: Dofetilide 0.125 MG CAP PO SCH ×2 (09:07→23:02)
[2020-05-05] MEDS: Dutasteride 0.5 MG CAP PO SCH (09:07)
[2020-05-05] MEDS: Fluticasone Propionate Nasal Spray 16 gm Bottle NASAL SCH (09:41)
--- NOTE | 2020-05-05 10:16 | PDOC.HOSPP ---
- Subjective Encounter Date: 05/05/20 Encounter Time: 08:30 Subjective: Patient seen and examined for med mngt. Pain controlled. No CP or SOB. No new complaints. No overnight events - Objective Vital Signs & Weight: Vital Signs (12 hours) Temp Pulse Resp BP Pulse Ox 05/05/20 07:50 77 18 97 05/05/20 07:15 98.9 F 79 20 118/60 96 05/05/20 03:55 97.2 F L 75 18 90/51 L 96 05/05/20 00:05 76 20 99 Weight Weight 200 lb I&O: 05/04/20 05/05/20 05/06/20 06:59 06:59 06:59 Intake Total 2740 1600 Output Total 850 1150 Balance 1890 450 Result Diagrams: 05/05/20 02:41 05/05/20 02:41 EKG Reviewed by me: Yes (Tele SR) Hospitalist ROS - Review of Systems Respiratory: denies: cough, dry, shortness of breath, hemoptysis, SOB with excertion, pleuritic pain, sputum, wheezing, other Cardiovascular: denies: chest pain, palpitations, orthopnea, paroxysmal noc. dyspnea, edema, light headedness, other - Medication Medications: Active Medications Generic Name Dose Route Start Last Admin Trade Name Freq PRN Reason Stop Dose Admin Acetaminophen 1,000 mg 05/03/20 18:00 05/05/20 05:37 Tylenol PO Not Given Q6HR SHORTY Aspirin 81 mg 05/03/20 21:00 05/05/20 09:06 Ecotrin PO 81 mg BID SHORTY Administration Cyclobenzaprine HCl 5 mg 05/03/20 17:58 05/03/20 22:30 Flexeril PO 5 mg TIDPRN PRN Administration Muscle Spasm Dofetilide 0.125 mg 05/03/20 21:00 05/05/20 09:07 Tikosyn PO 0.125 mg BID SHORTY Administration Doxycycline Hyclate 100 mg 05/04/20 21:00 05/05/20 09:04 Vibramycin PO Not Given BID SHORTY Dutasteride 0.5 mg 05/04/20 09:00 05/05/20 09:07 Avodart PO 0.5 mg DAILY SHORTY Administration Ferrous Gluconate 324 mg 05/04/20 09:00 07/16/20 09:06 Fergon PO 324 mg BID SHORTY Administration Fluticasone Propionate 0 gm 05/04/20 09:00 05/05/20 09:41 Flonase Nasal [place] NASAL Not Given DAILY SHORTY Gabapentin 100 mg 05/03/20 21:00 05/05/20 09:05 Neurontin PO 100 mg BID SHORTY Administration Fentanyl Citrate 500 mcg/ 100 mls @ 6 mls/hr 05/03/20 18:00 05/05/20 02:32 Bupivacaine HCl 10 ml/ Sodium EPIDURAL 100 mls Chloride INF SHORTY Administration As Directed Ipratropium [place] 2.5 ml 05/03/20 19:00 05/05/20 07:50 Atrovent NEB 2.5 ml [id number] SHORTY Administration Iron/Minerals/Multivitamins 1 tab 05/04/20 09:00 05/05/20 09:06 Theragran M PO 1 tab DAILY SHORTY Administration Lidocaine 1 patch 05/04/20 09:00 05/05/20 09:05 Lidoderm 5% Patch TD 1 patch DAILY SHORTY Administration Miscellaneous Medication 1 each 05/04/20 21:00 05/04/20 20:28 Lidocaine Patch Removal TOP Not Given HS SHORTY Mometasone Furoate/Formoterol Fumar 2 puff 05/03/20 18:30 05/05/20 07:52 Dulera 200 Mcg/5 Mcg Inhaler INH 2 puff BID-RT SHORTY Administration Pantoprazole Sodium 40 mg 05/04/20 09:00 05/05/20 09:07 Protonix PO 40 mg DAILY SHORTY Administration Polyethylene Glycol 17 gm 05/04/20 09:00 05/05/20 09:05 Miralax PO Not Given DAILY SHORTY Prednisone 20 mg 05/04/20 09:00 05/05/20 09:06 Prednisone PO 20 mg DAILY SHORTY Administration Rosuvastatin Calcium 10 mg 05/03/20 21:00 05/04/20 20:28 Crestor PO 10 mg HS SHORTY Administration Saccharomyces Boulardii 250 mg 05/04/20 21:00 05/04/20 20:28 Florastor PO 250 mg HS SHORTY Administration Senna/Docusate Sodium 2 tab 05/04/20 09:00 05/05/20 09:05 Senokot S PO Not Given BID SHORTY Sertraline HCl 50 mg 05/03/20 21:00 05/04/20 20:28 Zoloft PO 50 mg HS SHORTY Administration Tamsulosin HCl 0.4 mg 05/04/20 09:00 05/05/20 09:07 Flomax PO 0.4 mg DAILY SHORTY Administration Tramadol HCl 100 mg 05/03/20 18:00 05/04/20 20:25 Ultram PO 100 mg Q6H PRN Administration Moderate Pain 4-6 - Exam General Appearance: NAD Heart: RRR, no gallops Respiratory: no wheezes, no ronchi Gastrointestinal: non-tender, non-distended Extremities: no cyanosis Neurological: no new deficit Psychiatric: normal affect, A&O x 3 Hosp A/P - Plan DVT proph w/SCDs Left hip infection s/p arthroplasty - Mngt per Ortho Chronic diastolic HF - compensated COPD/Chronic hypoxic resp failure on 3.5 L O2 at home NNEKA/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 - Torsemide and Losartan on hold - s/p albumin Chronic Anemia requiring blood transfusion -s/p 2 units Par Afib s/p watchman -on Tikosyn -not on anticoag due to anemia BPH BRAD- on CPAP PLAN: Cont Tikosyn cont other meds Avoid Nephrotoxic meds AM labs Hold Doxy per Nephro - Dr Beaver aware Transfer to medical Renal USG - no obstruction
--- NOTE | 2020-05-05 11:36 | PRG ---
DATE OF SERVICE: 05/05/2020 SUBJECTIVE: An 79-year-old gentleman being seen for acute kidney injury. The patient denied any nausea, vomiting, or chest pain. OBJECTIVE: GENERAL: The patient is awake and alert. VITAL SIGNS: Afebrile, pulse 75, breathing 16, and blood pressure 118/60. HEENT: Head normocephalic and atraumatic. Eyes intact, no ulcers. Nose intact, no ulcers. Ears intact, no ulcers. NECK: Supple. No JVD. CHEST: Symmetrical and clear. CARDIOVASCULAR: Shows S1 and S2, no rub, no murmur. GASTROINTESTINAL: Abdomen is soft, bowel sounds positive. EXTREMITIES: Show no edema or ulcers. SKIN: Shows no rash or petechiae. MUSCULOSKELETAL: Shows no joint swelling or stiffness. GENITOURINARY: Shows no De or CVA tenderness. NEUROLOGIC: Motor intact. Cranial nerves intact. LABORATORY DATA: Hemoglobin 7.3 and hematocrit 4.4. ASSESSMENT AND PLAN: 1. Acute kidney injury with chronic kidney disease due to cardiorenal syndrome and decreased effective arterial blood volume. Renal function has worsened. We will hold Vibramycin. 2. Anemia. We would recommend transfusion. Medication based on GFR appropriate. No indication for dialysis. We will order renal imaging. Job ID: [id number]
--- NOTE | 2020-05-05 13:09 | ULT ---
US Renal Bilateral STANDARD: 05/05/2020 11:08 AM CLINICAL HISTORY: Acute kidney injury. STUDY: Renal ultrasound COMPARISON: None. FINDINGS: Right kidney: Echogenicity: Normal. Masses/cysts: None. Hydronephrosis: None. Calcifications: None. Length: 11.9 cm Left kidney: Echogenicity: Normal. Masses/cysts: 3.3 cm cyst Hydronephrosis: None. Calcifications: None. Length: 12.1 cm The bladder is decompressed by De catheter IMPRESSION: Left renal cyst
[2020-05-05] MEDS: Rosuvastatin 10 MG TAB PO SCH (21:04)
[2020-05-05] MEDS: Saccharomyces boulardii 250 MG CAP PO SCH (21:08)
[2020-05-05] MEDS: traMADol HCl 50 MG TAB PO PRN (21:08)
[2020-05-05] MEDS: Lidocaine Patch Removal TOP SCH (23:02)
[2020-05-06] MEDS: Ipratropium Bromide 2.5 ml Neb NEB SCH ×4 (00:06→18:58)
[2020-05-06] MEDS: Acetaminophen 500 MG TAB PO SCH ×4 (05:03→23:50)
[2020-05-06 05:58] LABS: Mean Corpuscular HGB CONC 31.3 g/dL (32.0-36.0); Mean Corpuscular Hemoglobin 27.1 pg (27.0-31.0); Mean Corpuscular Volume 86.7 fL (78.0-98.0); Mean Platelet Volume 8.1 fL (7.4-10.4); Platelet Count 390 thou/uL (130-400); RBC Distribution Width 17.2 % (11.5-14.5); Red Blood Cell (RBC) Count 2.58 mill/uL (4.70-6.10); White Blood Cell (WBC) Count 10.7 thou/uL (4.8-10.8)
[2020-05-06] MEDS: Mometasone 200 MCG/Formoterol 5 MCG 120 PUFF INHALER INH SCH ×2 (06:28→19:00)
[2020-05-06 09:35] LABS: Anion Gap 23 mmol/L (10-20); Calc. Creatinine Clearance 17 mL/min (70-130); Calcium 7.7 mg/dL (7.8-10.44); Carbon Dioxide 18 mmol/L (23-31); Chloride 96 mmol/L (98-107); Estimated GFR-MDRD 13; Glucose 113 mg/dL (83-110); Potassium 3.9 mmol/L (3.5-5.1); Sodium 133 mmol/L (136-145)
[2020-05-06 09:46] LABS: BUN (Urea Nitrogen) 124 mg/dL (8.4-25.7)
[2020-05-06] MEDS: Lidocaine 5% Patch TD SCH (09:54)
[2020-05-06] MEDS: predniSONE 20 MG TAB PO SCH (09:56)
[2020-05-06] MEDS: Dofetilide 0.125 MG CAP PO SCH (09:56)
[2020-05-06] MEDS: Gabapentin 100 MG CAP PO SCH ×2 (09:56→21:01)
[2020-05-06] MEDS: Ferrous Gluconate 324 MG TAB PO SCH ×2 (09:56→21:01)
[2020-05-06] MEDS: Multivitamin W/ Minerals 1 TAB PO SCH (09:56)
[2020-05-06] MEDS: Polyethylene Glycol 3350 17 GM Packet PO SCH (09:56)
[2020-05-06] MEDS: Tamsulosin HCl 0.4 MG CAP PO SCH (09:56)
[2020-05-06] MEDS: Senokot S 8.6-50 MG TAB PO SCH ×2 (09:56→21:06)
[2020-05-06] MEDS: Dutasteride 0.5 MG CAP PO SCH (09:56)
[2020-05-06] MEDS: Aspirin 81 mg Enteric Coated Tablet PO SCH ×2 (09:56→21:01)
[2020-05-06] MEDS: traMADol HCl 50 MG TAB PO PRN ×2 (10:10→21:04)
--- NOTE | 2020-05-06 11:11 | PRG ---
DATE OF SERVICE: 05/06/2020 SUBJECTIVE: An 79-year-old gentleman being seen for acute kidney injury. The patient denies any nausea, vomiting, or chest pain. OBJECTIVE: GENERAL: On exam, the patient is awake and alert. VITAL SIGNS: Afebrile, pulse 100, breathing at 16, blood pressure 125/67. HEENT: Head normocephalic and atraumatic. Eyes intact, no ulcers. Nose intact, no ulcers. Ears intact, no ulcers. Neck: Supple. No JVD. Chest: Symmetrical and clear. Cardiovascular: Shows S1 and S2, no rub, no murmur. Gastrointestinal: Abdomen is soft, bowel sounds positive. Extremities: Show no edema or ulcers. Skin: Shows no rash or petechiae. Musculoskeletal: Shows no joint swelling or stiffness. Genitourinary: Shows no De or CVA tenderness. Neurologic: Motor intact. Cranial nerves intact. LABORATORY DATA: Shows hemoglobin 7. Creatinine is pending. ASSESSMENT AND PLAN: 1. Acute kidney injury with chronic kidney disease due to cardiorenal syndrome in the setting of ischemic nephropathy. We will follow labs closely. We will reorder labs. 2. Anemia, would recommend transfusion. Medication based on GFR appropriate. 3. Hypertension, stable. 4. Congestive heart failure. Use Lasix as needed. Job ID: [id number]
[2020-05-06] MEDS ORDERED: HYDROcodone/Acetaminophen 7.5/325 mg Tablet PO PRN (11:23)
[2020-05-06] MEDS ORDERED: Fentanyl 100 MCG/2 ML VIAL SLOW IVP PRN (11:24)
[2020-05-06] MEDS: Cyclobenzaprine 10 MG TAB PO PRN ×2 (11:41→21:04)
[2020-05-06] MEDS: Fluticasone Propionate Nasal Spray 16 gm Bottle NASAL SCH (12:39)
[2020-05-06] MEDS ORDERED: Vancomycin HCl 500 MG in Sodium Chloride 0.9% 100 ML IVPB SCH (14:00)
--- NOTE | 2020-05-06 14:07 | PDOC.HOSPP ---
- Subjective Encounter Date: 05/06/20 Encounter Time: 08:30 Subjective: Patient seen and examined for med mngt. No new CP. Feeling gen weak. No new complaints. No overnight events - Objective Vital Signs & Weight: Vital Signs (12 hours) Temp Pulse Pulse Resp BP BP Pulse Ox 05/06/20 12:56 79 16 95 05/06/20 10:57 97.7 F 82 20 125/61 05/06/20 10:45 97.9 F 83 18 131/55 L 94 L 05/06/20 08:05 93 L 05/06/20 07:23 97.6 F 78 20 125/67 93 L 05/06/20 06:25 75 14 94 L 05/06/20 03:31 97.5 F L 77 16 127/70 93 L Weight Weight 200 lb I&O: 05/05/20 05/06/20 05/07/20 06:59 06:59 06:59 Intake Total 1600 1020 240 Output Total 1150 1075 100 Balance 450 -55 140 Result Diagrams: 05/06/20 14:49 05/06/20 09:05 EKG Reviewed by me: Yes (SR on tele yesterday) Hospitalist ROS - Review of Systems Respiratory: denies: cough, dry, shortness of breath, hemoptysis, SOB with excertion, pleuritic pain, sputum, wheezing, other Cardiovascular: denies: chest pain, palpitations, orthopnea, paroxysmal noc. dyspnea, edema, light headedness, other Gastrointestinal: denies: nausea, vomiting, abdominal pain, diarrhea, constipation, melena, hematochezia, other - Medication Medications: Active Medications Generic Name Dose Route Start Last Admin Trade Name Freq PRN Reason Stop Dose Admin Acetaminophen 1,000 mg 05/03/20 18:00 05/06/20 11:41 Tylenol PO 1,000 mg Q6HR SHORTY Administration Albuterol/Ipratropium 3 ml 05/03/20 17:58 05/06/20 12:56 Duoneb NEB 3 ml Q4H PRN Administration Wheezing Aspirin 81 mg 05/03/20 21:00 05/06/20 09:56 Ecotrin PO 81 mg BID SHORTY Administration Cyclobenzaprine HCl 5 mg 05/03/20 17:58 05/06/20 11:41 Flexeril PO 5 mg TIDPRN PRN Administration Muscle Spasm Doxycycline Hyclate 100 mg 05/04/20 21:00 05/05/20 09:04 Vibramycin PO Not Given BID SHORTY Dutasteride 0.5 mg 05/04/20 09:00 05/06/20 09:56 Avodart PO 0.5 mg DAILY SHORTY Administration Ferrous Gluconate 324 mg 05/04/20 09:00 05/06/20 09:56 Fergon PO 324 mg BID SHORTY Administration Fluticasone Propionate 0 gm 05/04/20 09:00 05/06/20 12:39 Flonase Nasal [place] NASAL 1 spray DAILY SHORTY Administration Gabapentin 100 mg 05/03/20 21:00 05/06/20 09:56 Neurontin PO 100 mg BID SHORTY Administration Ipratropium [place] 2.5 ml 05/03/20 19:00 05/06/20 12:58 Atrovent NEB Not Given [id number] [id number] Iron/Minerals/Multivitamins 1 tab 05/04/20 09:00 05/06/20 09:56 Theragran M PO 1 tab DAILY SHORTY Administration Lidocaine 1 patch 05/04/20 09:00 05/06/20 09:54 Lidoderm 5% Patch TD 1 patch DAILY SHORTY Administration Miscellaneous Medication 1 each 05/04/20 21:00 05/05/20 23:02 Lidocaine Patch Removal TOP 1 each HS SHORTY Administration Mometasone Furoate/Formoterol Fumar 2 puff 05/03/20 18:30 05/06/20 06:28 Dulera 200 Mcg/5 Mcg Inhaler INH 2 puff BID-RT SHORTY Administration Pantoprazole Sodium 40 mg 05/04/20 09:00 05/06/20 09:56 Protonix PO 40 mg DAILY SHORTY Administration Polyethylene Glycol 17 gm 05/04/20 09:00 05/06/20 09:56 Miralax PO 17 gm DAILY SHORTY Administration Prednisone 20 mg 05/04/20 09:00 05/06/20 09:56 Prednisone PO 20 mg DAILY SHORTY Administration Rosuvastatin Calcium 10 mg 05/03/20 21:00 05/05/20 21:04 Crestor PO 10 mg HS SHORTY Administration Saccharomyces Boulardii 250 mg 05/04/20 21:00 05/05/20 21:08 Florastor PO 250 mg HS SHORTY Administration Senna/Docusate Sodium 2 tab 05/04/20 09:00 05/06/20 09:56 Senokot S PO 2 tab BID SHORTY Administration Sertraline HCl 50 mg 05/03/20 21:00 05/05/20 21:05 Zoloft PO 50 mg HS SHORTY Administration Tamsulosin HCl 0.4 mg 05/04/20 09:00 05/06/20 09:56 Flomax PO 0.4 mg DAILY SHORTY Administration - Exam General Appearance: NAD Heart: RRR, no gallops Respiratory: no rales, no ronchi Gastrointestinal: non-tender, non-distended, normal bowel sounds Extremities: no cyanosis Neurological: no new deficit Hosp A/P - Plan DVT proph w/SCDs Left hip infection s/p arthroplasty - Mngt per Ortho Chronic diastolic HF - compensated COPD/Chronic hypoxic resp failure on 3.5 L O2 at home 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
[2020-05-06 15:04] LABS: Hemoglobin 7.5 g/dL (14.0-18.0)
[2020-05-06] MEDS: Sodium Bicarbonate 150 MEQ in Dextrose 5% in Water 1,000 ML IV SCH (17:01)
[2020-05-06] MEDS: Rosuvastatin 10 MG TAB PO SCH (21:01)
[2020-05-06] MEDS: Doxycycline 100 MG CAP PO SCH (21:01)
[2020-05-06] MEDS: Saccharomyces boulardii 250 MG CAP PO SCH (21:01)
[2020-05-06] MEDS: HYDROcodone/Acetaminophen 7.5/325 mg Tablet PO PRN (21:02)
[2020-05-06] MEDS: Lidocaine Patch Removal TOP SCH (21:34)
[2020-05-07] MEDS: Ipratropium Bromide 2.5 ml Neb NEB SCH ×4 (00:57→18:54)
[2020-05-07 04:56] LABS: Hemoglobin 7.2 g/dL (14.0-18.0); Mean Corpuscular HGB CONC 30.7 g/dL (32.0-36.0); Mean Corpuscular Hemoglobin 25.9 pg (27.0-31.0); Mean Corpuscular Volume 84.3 fL (78.0-98.0); Mean Platelet Volume 8.1 fL (7.4-10.4); Platelet Count 379 thou/uL (130-400); RBC Distribution Width 18.7 % (11.5-14.5); White Blood Cell (WBC) Count 10.1 thou/uL (4.8-10.8)
[2020-05-07 05:05] LABS: Anion Gap 15 mmol/L (10-20); Calc. Creatinine Clearance 19 mL/min (70-130); Calcium 7.7 mg/dL (7.8-10.44); Carbon Dioxide 26 mmol/L (23-31); Chloride 92 mmol/L (98-107); Estimated GFR-MDRD 15; Glucose 143 mg/dL (83-110); Magnesium 3.5 mg/dL (1.6-2.6); Potassium 3.2 mmol/L (3.5-5.1); Sodium 130 mmol/L (136-145)
[2020-05-07 05:16] LABS: BUN (Urea Nitrogen) 127 mg/dL (8.4-25.7)
--- NOTE | 2020-05-07 05:20 | CON ---
DATE OF CONSULTATION: 05/06/2020 Dictated by Lucy Martin, nurse practitioner, as a scribe for Dr. Milind Brandt. Consultation is performed by Dr. Milind Brandt. REASON FOR CONSULTATION: Tikosyn/medication management and atrial fibrillation management. HISTORY OF PRESENT ILLNESS: Mr. Mart is an 79-year-old gentleman known to our practice for history of persistent atrial fibrillation. He underwent PVAI on 12/04/2018, but had early recurrence of atypical atrial flutter, requiring Tikosyn for suppression. He also struggles with diastolic heart failure and advanced COPD. He had significant bleeding problems in the past, prompting left atrial appendage closure with Watchman in February 2019. Subsequent TEEs found residual michelle-device leaks and he underwent coil closure in August 2019. Repeat ANNAMARIA in November 2019 revealed two persisting michelle-Watchman leaks despite the prior coil closure. An expedited closure was planned, but unfortunately he fell and broke his hip. Mr. Mart is currently hospitalized for left hip revision. He underwent left arthroplasty initially in January 2020 with subsequent revision on 02/16/2020 due to infection. He had a second THR on 05/03/[address] Salamanca. There was an acute kidney injury postoperatively, likely to hypotension and also acute anemia with hemoglobin of 7. He had previously been on low-dose Eliquis, which was stopped. EP consultation is requested given his Tikosyn and his acute kidney injury. Mr. Mart is currently getting a blood transfusion, resting in bed. He is tired. REVIEW OF SYSTEMS: Positive for weakness. Positive for fatigue. Positive for pain. Positive for shortness of breath. Positive for dyspnea on exertion. Otherwise, 12-point review of systems is negative. PAST MEDICAL HISTORY: 1. Persistent atrial fibrillation. a. Cardioversion on 11/06/2018. b. PVAI on 12/04/2018, late recurrence requiring Tikosyn for suppression. 2. Chronic diastolic heart failure, LVEF 60% to 65%. 3. COPD. 4. Spontaneous pneumothorax in July 2018. 5. Acute on chronic renal failure. 6. Hypertension. 7. CHADS-VASc score of 6, status post left atrial appendage closure via Watchman protocol, February 2019, michelle-device leak, status post coil closure in August 2019, status post ANNAMARIA in November 2019, with two residual leaks noted. 8. GI bleed with anemia. PAST SURGICAL HISTORY: Left knee surgery, cyst removal, left hip arthroplasty with multiple revisions and infections. ALLERGIES: ADHESIVE TAPE. HOME MEDICATIONS: 1. Avodart 0.5 mg daily. 2. Tikosyn 125 mcg b.i.d. 3. Flexeril 5 mg t.i.d. 4. Aspirin 81 mg daily. 5. Vitamin C 500 mg b.i.d. 6. ProAir two puffs q.6 hours. 7. Tylenol 1000 mg q.6 hours. 8. MiraLAX 17 g daily. 9. Dulera b.i.d. 10. Cozaar 100 mg b.i.d. 11. Lidocaine patch as needed. 12. DuoNeb p.r.n. 13. Gabapentin 100 mg b.i.d. 14. Fluticasone each naris daily. 15. Iron b.i.d. 16. Nexium daily. 17. Testosterone 200 mg as directed. 18. Tamsulosin 0.4 mg daily. 19. Sertraline 50 mg at bedtime. 20. Senokot b.i.d. 21. Crestor 10 mg at bedtime. 22. Tramadol 50 mg q.6 hours p.r.n. 23. Prednisone 20 mg daily. 24. Torsemide 40 mg b.i.d. 25. Spiriva 18 mcg inhaled daily. FAMILY HISTORY: Positive for CAD. SOCIAL HISTORY: Negative for tobacco. Rare alcohol intake. , lives with his . Supportive family. Denies illicit drug use. OBJECTIVE: VITAL SIGNS: Temperature 97.7, pulse 79, blood pressure 125/61, respirations 16, and oxygen saturation 95% on 2 L via nasal cannula. GENERAL: The patient is resting comfortably in bed at the time of the exam. He is in no apparent distress. He is receiving a blood transfusion. NECK: Supple without jugular venous distention. LUNGS: Lung sounds are quiet throughout. No wheezes, crackles, or rhonchi noted. Respirations are even and unlabored. CARDIAC: Heart rate is irregularly irregular. PMI is nondisplaced. ABDOMEN: Obese, soft, and nontender without palpable masses. EXTREMITIES: Warm and dry to touch. No clubbing or cyanosis, but mild edema is present. NEUROLOGIC: Nonfocal. Gait was not assessed due to recent surgery. LABORATORY DATA: WBC 10.7, hemoglobin 7 prior to transfusion, hematocrit 22.4, platelet count is 390. Chemistry; sodium 133, potassium 3.9, creatinine 4.35, and magnesium 3.2. IMPRESSION: 1. History of persistent atrial fibrillation with prior ablation, requiring Tikosyn for suppression. 2. Acute on chronic kidney injury with creatinine clearance of 16 based on recent creatinine. 3. History of gastrointestinal bleed, status post Watchman with residual leak, still requiring coil closure. 4. History of preserved left ventricular ejection fraction, 60% to 65%. 5. Chronic obstructive pulmonary disease. 6. Hypertension. 7. Status post septic hip revision. PLAN AND RECOMMENDATIONS: Mr. Mart is a delightful 79-year-old gentleman, who I know very well. He has struggled with GI bleeds with anticoagulation and still requires coil closure of his michelle-Watchman leaks. Unfortunately, he had fallen and broken his hip before coiling could be done. We now find that he has an acute kidney injury making continued therapy with Tikosyn not possible. Stop his Tikosyn. We will need to monitor his QT on telemetry and consider addition of amiodarone versus Multaq if atrial fibrillation recurs after Tikosyn washout is complete. At this point, due to his acute anemia and blood transfusions, he is not a candidate for even getting back on low-dose Eliquis, but if it is deemed safe to do so, he will require this in the future, at which point, we could consider scheduling him for coil closure once again. I would like him to be transferred to telemetry for continued monitoring. Thank you for allowing me to participate in the care of this patient. Job ID: [id number]
[2020-05-07] MEDS: Acetaminophen 500 MG TAB PO SCH ×3 (05:45→18:08)
[2020-05-07] MEDS: Mometasone 200 MCG/Formoterol 5 MCG 120 PUFF INHALER INH SCH ×2 (06:44→18:56)
[2020-05-07] MEDS: Gabapentin 100 MG CAP PO SCH ×2 (09:34→20:22)
[2020-05-07] MEDS: Dutasteride 0.5 MG CAP PO SCH (09:34)
[2020-05-07] MEDS: Potassium Chloride 20 MEQ TAB PO SCH ×2 (09:34→18:08)
[2020-05-07] MEDS: predniSONE 20 MG TAB PO SCH (09:34)
[2020-05-07] MEDS: Senokot S 8.6-50 MG TAB PO SCH ×2 (09:34→20:22)
[2020-05-07] MEDS: Ferrous Gluconate 324 MG TAB PO SCH ×2 (09:34→20:22)
[2020-05-07] MEDS: Doxycycline 100 MG CAP PO SCH ×2 (09:34→20:22)
[2020-05-07] MEDS: Polyethylene Glycol 3350 17 GM Packet PO SCH (09:35)
[2020-05-07] MEDS: Aspirin 81 mg Enteric Coated Tablet PO SCH ×2 (09:35→20:22)
[2020-05-07] MEDS: Tamsulosin HCl 0.4 MG CAP PO SCH (09:35)
[2020-05-07] MEDS: Lidocaine 5% Patch TD SCH (09:35)
[2020-05-07] MEDS: Multivitamin W/ Minerals 1 TAB PO SCH (09:35)
[2020-05-07] MEDS: Fluticasone Propionate Nasal Spray 16 gm Bottle NASAL SCH (09:35)
[2020-05-07] MEDS: Cyclobenzaprine 10 MG TAB PO PRN (09:52)
[2020-05-07] MEDS: Sodium Bicarbonate 150 MEQ in Dextrose 5% in Water 1,000 ML IV SCH (11:36)
[2020-05-07] MEDS: HYDROcodone/Acetaminophen 7.5/325 mg Tablet PO PRN ×2 (11:41→15:00)
--- NOTE | 2020-05-07 11:49 | PRG ---
DATE OF SERVICE: 05/07/2020 SUBJECTIVE: Bin is an 79-year-old male who is now postoperative day 4 from a revision left hip hemiarthroplasty for infection. His cultures have demonstrated Staphylococcus hominis with edge-resistance with the exception of doxycycline, gentamicin, tetracycline, and vancomycin. Subjectively, his pain is about the same. It has little bit better after surgery, but he has had a plateau and he is not continuing to progress fully. He has multiple medical issues, currently question of urinary retention. He has had a history of self-cathing in the past and has De as this is the 2nd time he will fail De removal. PHYSICAL EXAMINATION: GENERAL: He is alert, responsive, and appropriate, very conversive and pleasant with examiner. EXTREMITIES: His incision is clean. There is no strike through or erythema and I see no purulence, but he does have +1 to 2 edema in the left thigh, consistent with dependent edema and diastolic heart failure. IMPRESSION: An 79-year-old male, postoperative day 4, left hip revision arthroplasty for infection with Staphylococcus hominis. PLAN: 1. Continue current care. Out of bed as needed. At this point, he has had a history of self cathing. I do not mind if he does this or just simply replacing the De catheter, but we will obtain a postvoid residual scan on him to see whether or not we need to go ahead and place another De. 2. Continue antibiotics and continue to follow clinically. If his pain continues to get worse, we may give consideration to reexploration. Job ID: [id number]
[2020-05-07 12:29] LABS: Vancomycin, Random 20.6 ug/mL (See Comment)
[2020-05-07] MEDS ORDERED: Vancomycin HCl 750 MG in Sodium Chloride 0.9% 250 ML 250 ML IVPB SCH (13:00)
--- NOTE | 2020-05-07 15:38 | PRG ---
DATE OF SERVICE: 05/07/2020 SUBJECTIVE: Mr. Mart does not appear in distress. Denies any shortness of breath or cough. No abdominal pain. Pain is mild. OBJECTIVE: VITAL SIGNS: Afebrile. BP 150/69, pulse 85, respirations 14 to 20 , O2 saturation 92% to 95% on 3 L nasal cannula. LUNGS: Clear. HEART: S1 and S2, regular rate. ABDOMEN: Soft, not distended, and hip operative site with dressing. LABORATORY DATA: White cell count is at 10.1, hemoglobin 7.2, platelets 379. Creatinine 3.93. Microbiology of the current hip sample with negative culture results except for rare mixed beau, but the aspirate from the hip yielded methicillin-resistant Staph aureus. The organism was resistant to rifampin, susceptible to tetracycline and Bactrim. ASSESSMENT AND DISCUSSION: Chronic kidney disease stage 4 to 5, recurring left hip infection which started as a postop infection following left hip fracture hemiarthroplasty. Now, the patient has had fairly similar susceptibilities except for the resistance to rifampin. He is now susceptible to doxycycline, the organism, and he does have renal insufficiency, but doxycycline can be used in patients with renal insufficiency without any issues, so I would advise continuation of vancomycin and doxycycline, and at this time, continue for 3 months and then after that, transition to suppressive therapy with doxycycline for another 3 months, and then chronic suppression with doxycycline indefinitely. Job ID: [id number] MTDD
[2020-05-07] MEDS: Saccharomyces boulardii 250 MG CAP PO SCH (20:22)
[2020-05-07] MEDS: Rosuvastatin 10 MG TAB PO SCH (20:22)
[2020-05-07] MEDS: traMADol HCl 50 MG TAB PO PRN (20:30)
[2020-05-07] MEDS: Lidocaine Patch Removal TOP SCH (20:40)
[2020-05-08] MEDS: Acetaminophen 500 MG TAB PO SCH ×5 (00:10→23:28)
[2020-05-08] MEDS: Ipratropium Bromide 2.5 ml Neb NEB SCH ×4 (00:49→18:48)
[2020-05-08 04:58] LABS: Mean Corpuscular HGB CONC 30.7 g/dL (32.0-36.0); Mean Corpuscular Hemoglobin 26.2 pg (27.0-31.0); Mean Corpuscular Volume 85.3 fL (78.0-98.0); Mean Platelet Volume 8.2 fL (7.4-10.4); Platelet Count 413 thou/uL (130-400); RBC Distribution Width 19.1 % (11.5-14.5); Red Blood Cell (RBC) Count 2.66 mill/uL (4.70-6.10); White Blood Cell (WBC) Count 12.2 thou/uL (4.8-10.8)
[2020-05-08 05:15] LABS: Anion Gap 15 mmol/L (10-20); Calc. Creatinine Clearance 22 mL/min (70-130); Calcium 7.6 mg/dL (7.8-10.44); Carbon Dioxide 26 mmol/L (23-31); Chloride 96 mmol/L (98-107); Estimated GFR-MDRD 17; Glucose 113 mg/dL (83-110); Magnesium 3.6 mg/dL (1.6-2.6); Potassium 3.9 mmol/L (3.5-5.1); Sodium 133 mmol/L (136-145)
[2020-05-08 05:26] LABS: BUN (Urea Nitrogen) 119 mg/dL (8.4-25.7)
[2020-05-08] MEDS: Mometasone 200 MCG/Formoterol 5 MCG 120 PUFF INHALER INH SCH ×2 (07:03→18:51)
--- NOTE | 2020-05-08 07:55 | PRG ---
DATE OF SERVICE: 05/07/2020 Subjective: Patient is seen in the room. His De catheter was removed yesterday but patient still has difficulty urinating. There is a plan to replace De catheter. Patient does not have shortness of breath or chest pain. Review of systems Gen.: No fever, no chills All the 14 systems reviewed except for the ones mentioned above are negative Vitals Blood pressure-123/58 Pulse rate-80/minute Respirate-18/minute Oxygen saturation 95% on 3 L nasal cannula. Urine output 1075 in the last 24 hours Physical examination Constitutional: comfortable, not in pain HEENT: Mucous membranes moist, no icterus Neck: Trachea midline, no lymphadenopathy Heart: Regular rate and rhythm; no murmurs Lungs: Air entry equal bilateral; no wheezes Abdomen: Soft; nontender; no guarding/tenderness/rebound Extremities: 1 to 2+ pitting edema bilaterally Neurological: Patient is awake, following commands Skin: No rash, no ulcers Psychological: Not agitated Labs and Imaging reviewed. WBC 10.1, hemoglobin 7.2, hematocrit 23.6 Sodium 130, potassium 3.2, bicarb 26, BUN 127, creatinine 3.93 Assessment and plan NNEKA on CKD Hypertension Anemia Decompensated heart failure Patient is nonoliguric, patient is currently stable on 3 L nasal cannula. c/w Lasix p.r.n. Medications reviewed, avoid nephrotoxins. Patient is on vancomycin , monitor vancomycin trough levels and dose accordingly. Patient's azotemia could be secondary to the renal dysfunction and steroids Patient's blood pressure is stable, continue with hydralazine p.r.n.. Continue with iron tablets, suggest transfusion with 1 unit of PRBC. Continue to monitor hemoglobin and hematocrit. Will discontinue bicarbonate drip, bicarbonate level this morning is 26. Patient received p.o. KCl, continue to monitor electrolytes. Hyponatremia could be secondary to heart failure. Will evaluate daily for renal replacement therapy. No indication for UNIT COORDINATOR today Discussed with nurse at bedside. Job ID: [id number] [facility]
[2020-05-08] MEDS: predniSONE 20 MG TAB PO SCH (08:25)
[2020-05-08] MEDS: Tamsulosin HCl 0.4 MG CAP PO SCH (08:25)
[2020-05-08] MEDS: Aspirin 81 mg Enteric Coated Tablet PO SCH ×2 (08:26→20:41)
[2020-05-08] MEDS: Ferrous Gluconate 324 MG TAB PO SCH ×2 (08:26→20:41)
[2020-05-08] MEDS: Gabapentin 100 MG CAP PO SCH ×2 (08:26→20:41)
[2020-05-08] MEDS: Dutasteride 0.5 MG CAP PO SCH (08:26)
[2020-05-08] MEDS: Polyethylene Glycol 3350 17 GM Packet PO SCH (08:26)
[2020-05-08] MEDS: Senokot S 8.6-50 MG TAB PO SCH ×2 (08:26→20:41)
[2020-05-08] MEDS: Potassium Chloride 20 MEQ TAB PO SCH (08:26)
[2020-05-08] MEDS: Multivitamin W/ Minerals 1 TAB PO SCH (08:26)
[2020-05-08] MEDS: Doxycycline 100 MG CAP PO SCH ×2 (08:26→20:41)
[2020-05-08] MEDS: Lidocaine 5% Patch TD SCH (08:26)
[2020-05-08] MEDS: Fluticasone Propionate Nasal Spray 16 gm Bottle NASAL SCH (08:27)
[2020-05-08] MEDS: HYDROcodone/Acetaminophen 7.5/325 mg Tablet PO PRN ×2 (08:43→15:39)
--- NOTE | 2020-05-08 09:08 | PDOC.HOSPP ---
- Subjective Encounter Date: 05/08/20 Encounter Time: 08:00 Subjective: Patient seen and examined for med mngt. No CP/SOB. c/o B/L LE edema. No other complaints. No overnight events - Objective Vital Signs & Weight: Vital Signs (12 hours) Temp Pulse Resp BP Pulse Ox 05/08/20 08:14 97.6 F 81 19 127/59 L 94 L 05/08/20 07:04 74 16 05/08/20 04:00 97.3 F L 82 20 128/67 97 05/08/20 00:49 77 14 92 L 05/08/20 00:00 88 Weight Weight 199 lb 12.8 oz I&O: 05/07/20 05/08/20 05/09/20 06:59 06:59 06:59 Intake Total 1430 1900 Output Total 1375 1150 Balance 55 750 Result Diagrams: 05/08/20 04:28 05/08/20 04:28 EKG Reviewed by me: Yes (Tele SR) Hospitalist ROS - Review of Systems Respiratory: denies: cough, dry, shortness of breath, hemoptysis, SOB with excertion, pleuritic pain, sputum, wheezing, other Cardiovascular: reports: edema. denies: chest pain, palpitations, orthopnea, paroxysmal noc. dyspnea, light headedness, other - Medication Medications: Active Medications Generic Name Dose Route Start Last Admin Trade Name Freq PRN Reason Stop Dose Admin Acetaminophen 1,000 mg 05/03/20 18:00 05/08/20 05:21 Tylenol PO 1,000 mg Q6HR SHORTY Administration Hydrocodone Bitart/Acetaminophen 1 tab 05/06/20 11:23 05/08/20 08:43 [place] 7.5/325 PO 1 tab Q4H PRN Administration PAIN SCALE 2-4 Albuterol/Ipratropium 3 ml 05/03/20 17:58 05/08/20 07:04 Duoneb NEB 3 ml Q4H PRN Administration Wheezing Aspirin 81 mg 05/03/20 21:00 05/08/20 08:26 Ecotrin PO 81 mg BID SHORTY Administration Cyclobenzaprine HCl 5 mg 05/03/20 17:58 05/07/20 09:52 Flexeril PO 5 mg TIDPRN PRN Administration Muscle Spasm Doxycycline Hyclate 100 mg 05/04/20 21:00 05/08/20 08:26 Vibramycin PO 100 mg BID SHORTY Administration Dutasteride 0.5 mg 05/04/20 09:00 05/08/20 08:26 Avodart PO 0.5 mg DAILY SHORTY Administration Ferrous Gluconate 324 mg 05/04/20 09:00 05/08/20 08:26 Fergon PO 324 mg BID SHORTY Administration Fluticasone Propionate 0 gm 05/04/20 09:00 05/08/20 08:27 Flonase Nasal [place] NASAL 2 spray DAILY SHORTY Administration Gabapentin 100 mg 05/03/20 21:00 05/08/20 08:26 Neurontin PO 100 mg BID SHORTY Administration Ipratropium [place] 2.5 ml 05/03/20 19:00 05/08/20 07:15 Atrovent NEB Not Given [id number] SHORTY Iron/Minerals/Multivitamins 1 tab 05/04/20 09:00 05/08/20 08:26 Theragran M PO 1 tab DAILY SHORTY Administration Lidocaine 1 patch 05/04/20 09:00 05/08/20 08:26 Lidoderm 5% Patch TD 1 patch DAILY SHORTY Administration Miscellaneous Medication 1 each 05/04/20 21:00 05/07/20 20:40 Lidocaine Patch Removal TOP 1 each HS SHORTY Administration Mometasone Furoate/Formoterol Fumar 2 puff 05/03/20 18:30 05/08/20 07:03 Dulera 200 Mcg/5 Mcg Inhaler INH 2 puff BID-RT SHORTY Administration Pantoprazole Sodium 40 mg 05/04/20 09:00 05/08/20 08:26 Protonix PO 40 mg DAILY SHORTY Administration Polyethylene Glycol 17 gm 05/04/20 09:00 05/08/20 08:26 Miralax PO 17 gm DAILY SHORTY Administration Potassium Chloride 20 meq 05/07/20 08:00 05/08/20 08:26 K-Dur PO 05/08/20 23:59 20 meq BID-WM SHORTY Administration Prednisone 20 mg 05/04/20 09:00 05/08/20 08:25 Prednisone PO 20 mg DAILY SHORTY Administration Rosuvastatin Calcium 10 mg 05/03/20 21:00 05/07/20 20:22 Crestor PO 10 mg HS SHORTY Administration Saccharomyces Boulardii 250 mg 05/04/20 21:00 05/07/20 20:22 Florastor PO 250 mg HS SHORTY Administration Senna/Docusate Sodium 2 tab 05/04/20 09:00 05/08/20 08:26 Senokot S PO 2 tab BID SHORTY Administration Sertraline HCl 50 mg 05/03/20 21:00 05/07/20 20:22 Zoloft PO 50 mg HS SHORTY Administration Tamsulosin HCl 0.4 mg 05/04/20 09:00 05/08/20 08:25 Flomax PO 0.4 mg DAILY SHORTY Administration Tramadol HCl 50 mg 05/03/20 18:00 05/06/20 21:04 Ultram PO 50 mg Q6H PRN Administration Mild Pain 1-3 Tramadol HCl 100 mg 05/06/20 12:30 05/07/20 20:30 Ultram PO 100 mg Q12H PRN Administration Moderate Pain 4-6 - Exam General Appearance: NAD Heart: RRR, no gallops Respiratory: no wheezes, no rales Gastrointestinal: soft, non-distended Extremities: no cyanosis, 2+ LE edema Neurological: no new deficit Hosp A/P - Plan DVT proph w/SCDs Left hip infection s/p arthroplasty - Mngt per Ortho Chronic diastolic HF - compensated COPD/Chronic hypoxic resp failure on 3.5 L O2 at home 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
--- NOTE | 2020-05-08 09:14 | PDOC.HOSPP ---
- Subjective Encounter Date: 05/07/20 Encounter Time: 16:00 Subjective: Patient seen and examined for med mngt. No CP/SOB. No new complaints. No overnight events - Objective Vital Signs & Weight: Vital Signs (12 hours) Temp Pulse Resp BP Pulse Ox 05/08/20 08:14 97.6 F 81 19 127/59 L 94 L 05/08/20 07:04 74 16 05/08/20 04:00 97.3 F L 82 20 128/67 97 05/08/20 00:49 77 14 92 L 05/08/20 00:00 88 Weight Weight 199 lb 12.8 oz I&O: 05/07/20 05/08/20 05/09/20 06:59 06:59 06:59 Intake Total 1430 1900 Output Total 1375 1150 Balance 55 750 Result Diagrams: 05/08/20 04:28 05/08/20 04:28 Additional Labs: Laboratory Tests 05/07/20 04:07 Sodium 130 L Potassium 3.2 L BUN 127 H Creatinine 3.93 H EKG Reviewed by me: Yes (Tele SR) Hospitalist ROS - Review of Systems Respiratory: denies: cough, dry, shortness of breath, hemoptysis, SOB with excertion, pleuritic pain, sputum, wheezing, other Cardiovascular: reports: edema. denies: chest pain, palpitations, orthopnea, paroxysmal noc. dyspnea, light headedness, other - Medication Medications: Active Medications Generic Name Dose Route Start Last Admin Trade Name Freq PRN Reason Stop Dose Admin Acetaminophen 1,000 mg 05/03/20 18:00 05/08/20 05:21 Tylenol PO 1,000 mg Q6HR SHORTY Administration Hydrocodone Bitart/Acetaminophen 1 tab 05/06/20 11:23 05/08/20 08:43 [place] 7.5/325 PO 1 tab Q4H PRN Administration PAIN SCALE 2-4 Albuterol/Ipratropium 3 ml 05/03/20 17:58 05/08/20 07:04 Duoneb NEB 3 ml Q4H PRN Administration Wheezing Aspirin 81 mg 05/03/20 21:00 05/08/20 08:26 Ecotrin PO 81 mg BID SHORTY Administration Cyclobenzaprine HCl 5 mg 05/03/20 17:58 05/07/20 09:52 Flexeril PO 5 mg TIDPRN PRN Administration Muscle Spasm Doxycycline Hyclate 100 mg 05/04/20 21:00 05/08/20 08:26 Vibramycin PO 100 mg BID SHORTY Administration Dutasteride 0.5 mg 05/04/20 09:00 05/08/20 08:26 Avodart PO 0.5 mg DAILY SHORTY Administration Ferrous Gluconate 324 mg 05/04/20 09:00 05/08/20 08:26 Fergon PO 324 mg BID SHORTY Administration Fluticasone Propionate 0 gm 05/04/20 09:00 05/08/20 08:27 Flonase Nasal [place] NASAL 2 spray DAILY SHORTY Administration Gabapentin 100 mg 05/03/20 21:00 05/08/20 08:26 Neurontin PO 100 mg BID SHORTY Administration Ipratropium [place] 2.5 ml 05/03/20 19:00 05/08/20 07:15 Atrovent NEB Not Given [id number] SHORTY Iron/Minerals/Multivitamins 1 tab 05/04/20 09:00 05/08/20 08:26 Theragran M PO 1 tab DAILY SHORTY Administration Lidocaine 1 patch 05/04/20 09:00 05/08/20 08:26 Lidoderm 5% Patch TD 1 patch DAILY SHORTY Administration Miscellaneous Medication 1 each 05/04/20 21:00 05/07/20 20:40 Lidocaine Patch Removal TOP 1 each HS SHORTY Administration Mometasone Furoate/Formoterol Fumar 2 puff 05/03/20 18:30 05/08/20 07:03 Dulera 200 Mcg/5 Mcg Inhaler INH 2 puff BID-RT SHORTY Administration Pantoprazole Sodium 40 mg 05/04/20 09:00 05/08/20 08:26 Protonix PO 40 mg DAILY SHORTY Administration Polyethylene Glycol 17 gm 05/04/20 09:00 05/08/20 08:26 Miralax PO 17 gm DAILY SHORTY Administration Prednisone 20 mg 05/04/20 09:00 05/08/20 08:25 Prednisone PO 20 mg DAILY SHORTY Administration Rosuvastatin Calcium 10 mg 05/03/20 21:00 05/07/20 20:22 Crestor PO 10 mg HS SHORTY Administration Saccharomyces Boulardii 250 mg 05/04/20 21:00 05/07/20 20:22 Florastor PO 250 mg HS SHORTY Administration Senna/Docusate Sodium 2 tab 05/04/20 09:00 05/08/20 08:26 Senokot S PO 2 tab BID SHORTY Administration Sertraline HCl 50 mg 05/03/20 21:00 05/07/20 20:22 Zoloft PO 50 mg HS SHORTY Administration Tamsulosin HCl 0.4 mg 05/04/20 09:00 05/08/20 08:25 Flomax PO 0.4 mg DAILY SHORTY Administration Tramadol HCl 50 mg 05/03/20 18:00 05/06/20 21:04 Ultram PO 50 mg Q6H PRN Administration Mild Pain 1-3 Tramadol HCl 100 mg 05/06/20 12:30 05/07/20 20:30 Ultram PO 100 mg Q12H PRN Administration Moderate Pain 4-6 - Exam General Appearance: NAD Heart: RRR, no gallops Respiratory: no wheezes, no ronchi Gastrointestinal: non-tender, non-distended, normal bowel sounds Extremities: no cyanosis, 1+ LE edema Neurological: no new deficit Hosp A/P - Plan DVT proph w/SCDs Left hip infection s/p arthroplasty - Mngt per Ortho Chronic diastolic HF - compensated COPD/Chronic hypoxic resp failure on 3.5 L O2 at home 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
[2020-05-08 12:43] LABS: Vancomycin, Random 24.8 ug/mL (See Comment)
--- NOTE | 2020-05-08 12:44 | PRG ---
DATE OF SERVICE: 05/08/2020 Subjective: Patient is in the room. He is currently having lunch. Patient had urinary retention and De catheter had to be placed. More than 300 mL of urine return of placement of De catheter patient the shortness of breath. Patient states that he would like to ambulate and that he is "tired of lying in the bed " Review of systems Gen.: No fever, no chills All the 14 systems reviewed except for the ones mentioned above are negative Vital signs Blood pressure-127/59 Ulcerated-81/minute Precipitated-19/minute Oxygen saturation 94% on 3 L nasal cannula Urine output 1375 mL in the last 24 hours. Physical examination Constitutional: comfortable, not in pain; currently having lunch HEENT: Mucous membranes moist, no icterus Neck: Trachea midline, no lymphadenopathy Heart: Regular rate, irregularly irregular; no murmurs Lungs: Air entry equal bilateral; no wheezes Abdomen: Soft; nontender; no guarding/tenderness/rebound Extremities: 1 to 2+ pitting edema bilaterally Neurological: Patient is awake, following commands Skin: No rash, no ulcers Psychological: Not agitated Labs and Imaging reviewed. Level C12 0.2, hemoglobin 7, hematocrit and [place], platelet count 413: Sodium 140, potassium 3.9, bicarbonate 26, BUN 119, creatinine 3.43 Assessment and plan [place] and CKD stage 4/5 Hypertension anemia Decompensated heart failure Urinary retention Patient is nonoliguric,and has adequate urine output. Can use p.r.n. Lasix/ torsemide. Suggest to transfuse 1 unit of PRBC, continue with iron tablets. Patient's medications reviewed, monitor vancomycin trough levels. Patient's blood pressure is stable,continue hydralazine p.r.n.. Monitor patient's electrolytes, potassium levels within normal limits. Hypernatremia could be sec to heart failure. Will continue to monitor same. Continue with low-salt diet. 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 Discussed with nurse at the bedside. Job ID: [id number] MTDD
[2020-05-08] MEDS ORDERED: Vancomycin HCl 750 MG in Sodium Chloride 0.9% 250 ML 250 ML IVPB SCH (13:00)
[2020-05-08] MEDS ORDERED: Vancomycin HCl 500 MG in Sodium Chloride 0.9% 100 ML IVPB SCH ×2 (14:00→15:00)
[2020-05-08] MEDS: traMADol HCl 50 MG TAB PO PRN (20:41)
[2020-05-08] MEDS: Rosuvastatin 10 MG TAB PO SCH (20:41)
[2020-05-08] MEDS: Saccharomyces boulardii 250 MG CAP PO SCH (20:41)
[2020-05-08] MEDS: Lidocaine Patch Removal TOP SCH (20:45)
[2020-05-09] MEDS: Ipratropium Bromide 2.5 ml Neb NEB SCH ×4 (00:42→18:26)
[2020-05-09 04:44] LABS: Hemoglobin 6.7 g/dL (14.0-18.0); Mean Corpuscular HGB CONC 29.1 g/dL (32.0-36.0); Mean Corpuscular Hemoglobin 25.3 pg (27.0-31.0); Mean Corpuscular Volume 86.8 fL (78.0-98.0); Mean Platelet Volume 7.7 fL (7.4-10.4); Platelet Count 414 thou/uL (130-400); RBC Distribution Width 19.4 % (11.5-14.5); Red Blood Cell (RBC) Count 2.63 mill/uL (4.70-6.10); White Blood Cell (WBC) Count 10.6 thou/uL (4.8-10.8)
[2020-05-09 05:25] LABS: Anion Gap 16 mmol/L (10-20); Calc. Creatinine Clearance 24 mL/min (70-130); Calcium 7.7 mg/dL (7.8-10.44); Carbon Dioxide 26 mmol/L (23-31); Chloride 98 mmol/L (98-107); Estimated GFR-MDRD 19; Glucose 93 mg/dL (83-110); Magnesium 3.7 mg/dL (1.6-2.6); Sodium 136 mmol/L (136-145)
[2020-05-09] MEDS: Acetaminophen 500 MG TAB PO SCH ×3 (05:27→18:49)
[2020-05-09 05:37] LABS: BUN (Urea Nitrogen) 125 mg/dL (8.4-25.7)
[2020-05-09] MEDS: Mometasone 200 MCG/Formoterol 5 MCG 120 PUFF INHALER INH SCH ×2 (07:03→18:28)
[2020-05-09] MEDS: Lidocaine 5% Patch TD SCH (08:37)
[2020-05-09] MEDS: Polyethylene Glycol 3350 17 GM Packet PO SCH (08:37)
[2020-05-09] MEDS: Ferrous Gluconate 324 MG TAB PO SCH ×2 (08:37→20:43)
[2020-05-09] MEDS: Doxycycline 100 MG CAP PO SCH ×2 (08:37→20:42)
[2020-05-09] MEDS: Multivitamin W/ Minerals 1 TAB PO SCH (08:37)
[2020-05-09] MEDS: Dutasteride 0.5 MG CAP PO SCH (08:37)
[2020-05-09] MEDS: Aspirin 81 mg Enteric Coated Tablet PO SCH ×2 (08:37→20:42)
[2020-05-09] MEDS: Gabapentin 100 MG CAP PO SCH ×2 (08:37→20:42)
[2020-05-09] MEDS: Senokot S 8.6-50 MG TAB PO SCH ×2 (08:37→20:43)
[2020-05-09] MEDS: predniSONE 20 MG TAB PO SCH (08:37)
[2020-05-09] MEDS: Tamsulosin HCl 0.4 MG CAP PO SCH (08:37)
[2020-05-09] MEDS: Fluticasone Propionate Nasal Spray 16 gm Bottle NASAL SCH (08:38)
[2020-05-09] MEDS: HYDROcodone/Acetaminophen 7.5/325 mg Tablet PO PRN (08:43)
[2020-05-09] MEDS ORDERED: Furosemide 20 MG/2 ML VIAL IVP SCH (10:00)
--- NOTE | 2020-05-09 10:07 | PDOC.HOSPP ---
- Subjective Encounter Date: 05/09/20 Encounter Time: 10:30 Subjective: Patient seen and examined for med mngt. Pain controlled. No CP or SOB. No new complaints. No overnight events - Objective Vital Signs & Weight: Vital Signs (12 hours) Temp Pulse Resp BP Pulse Ox 05/09/20 08:33 97.4 F L 82 18 138/63 97 05/09/20 08:00 97 05/09/20 07:02 77 16 100 05/09/20 04:29 97.7 F 78 16 134/68 96 05/09/20 00:42 80 14 99 05/09/20 00:00 75 Weight Weight 197 lb 6.4 oz I&O: 05/08/20 05/09/20 05/10/20 06:59 06:59 06:59 Intake Total 1900 1560 Output Total 1150 1400 Balance 750 160 Result Diagrams: 05/09/20 04:21 05/09/20 04:21 EKG Reviewed by me: Yes (Tele SR, Occ PAT) Hospitalist ROS - Review of Systems Respiratory: denies: cough, dry, shortness of breath, hemoptysis, SOB with excertion, pleuritic pain, sputum, wheezing, other Cardiovascular: denies: chest pain, palpitations, orthopnea, paroxysmal noc. dyspnea, edema, light headedness, other - Medication Medications: Active Medications Generic Name Dose Route Start Last Admin Trade Name Freq PRN Reason Stop Dose Admin Acetaminophen 1,000 mg 05/03/20 18:00 05/09/20 05:27 Tylenol PO 1,000 mg Q6HR SHORTY Administration Hydrocodone Bitart/Acetaminophen 1 tab 05/06/20 11:23 05/09/20 08:43 [place] 7.5/325 PO 1 tab Q4H PRN Administration PAIN SCALE 2-4 Albuterol/Ipratropium 3 ml 05/03/20 17:58 05/08/20 13:59 Duoneb NEB 3 ml Q4H PRN Administration Wheezing Aspirin 81 mg 05/03/20 21:00 05/09/20 08:37 Ecotrin PO 81 mg BID SHORTY Administration Cyclobenzaprine HCl 5 mg 05/03/20 17:58 05/07/20 09:52 Flexeril PO 5 mg TIDPRN PRN Administration Muscle Spasm Doxycycline Hyclate 100 mg 05/04/20 21:00 05/09/20 08:37 Vibramycin PO 100 mg BID SHORTY Administration Dutasteride 0.5 mg 05/04/20 09:00 05/09/20 08:37 Avodart PO 0.5 mg DAILY SHORTY Administration Ferrous Gluconate 324 mg 05/04/20 09:00 05/09/20 08:37 Fergon PO 324 mg BID SHORTY Administration Fluticasone Propionate 0 gm 05/04/20 09:00 05/09/20 08:38 Flonase Nasal [place] NASAL 1 spray DAILY SHORTY Administration Gabapentin 100 mg 05/03/20 21:00 05/09/20 08:37 Neurontin PO 100 mg BID SHORTY Administration Ipratropium [place] 2.5 ml 05/03/20 19:00 05/09/20 07:02 Atrovent NEB 2.5 ml [id number] SHORTY Administration Iron/Minerals/Multivitamins 1 tab 05/04/20 09:00 05/09/20 08:37 Theragran M PO 1 tab DAILY SHORTY Administration Lidocaine 1 patch 05/04/20 09:00 05/09/20 08:37 Lidoderm 5% Patch TD 1 patch DAILY SHORTY Administration Miscellaneous Medication 1 each 05/04/20 21:00 05/08/20 20:45 Lidocaine Patch Removal TOP 1 each HS SHORTY Administration Mometasone Furoate/Formoterol Fumar 2 puff 05/03/20 18:30 05/09/20 07:03 Dulera 200 Mcg/5 Mcg Inhaler INH 2 puff BID-RT SHORTY Administration Pantoprazole Sodium 40 mg 05/04/20 09:00 05/09/20 08:37 Protonix PO 40 mg DAILY SHORTY Administration Polyethylene Glycol 17 gm 05/04/20 09:00 05/09/20 08:37 Miralax PO 17 gm DAILY SHORTY Administration Prednisone 20 mg 05/04/20 09:00 05/09/20 08:37 Prednisone PO 20 mg DAILY SHORTY Administration Rosuvastatin Calcium 10 mg 05/03/20 21:00 05/08/20 20:41 Crestor PO 10 mg HS SHORTY Administration Saccharomyces Boulardii 250 mg 05/04/20 21:00 05/08/20 20:41 Florastor PO 250 mg HS SHORTY Administration Senna/Docusate Sodium 2 tab 05/04/20 09:00 05/09/20 08:37 Senokot S PO 2 tab BID SHORTY Administration Sertraline HCl 50 mg 05/03/20 21:00 05/08/20 20:41 Zoloft PO 50 mg HS SHORTY Administration Tamsulosin HCl 0.4 mg 05/04/20 09:00 05/09/20 08:37 Flomax PO 0.4 mg DAILY SHORTY Administration Tramadol HCl 50 mg 05/03/20 18:00 05/08/20 20:41 Ultram PO 50 mg Q6H PRN Administration Mild Pain 1-3 Tramadol HCl 100 mg 05/06/20 12:30 05/07/20 20:30 Ultram PO 100 mg Q12H PRN Administration Moderate Pain 4-6 - Exam General Appearance: NAD Heart: RRR, no gallops Respiratory: no wheezes, rhonchi Gastrointestinal: soft, non-distended Extremities: no cyanosis, 2+ LE edema Skin: normal turgor Neurological: no new deficit Hosp A/P - Plan DVT proph w/SCDs Left hip infection s/p arthroplasty - Mngt per Ortho - on Doxycycline/Vancomycin Chronic diastolic HF - compensated COPD/Chronic hypoxic resp failure on 3.5 L O2 at home 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
[2020-05-09] MEDS ORDERED: Acetaminophen 325 MG TAB PO PRN (10:21)
[2020-05-09] MEDS ORDERED: traMADol HCl 50 MG TAB PO PRN (10:25)
--- NOTE | 2020-05-09 12:25 | PDOC.EP ---
- Subjective Date: 05/09/20 Time: 12:23 Interval History: remains weak and tired but always optimistic. He voices no cardiac concerns or complaints. - Review of Systems Constitutional: reports: weakness. denies: chills, fever, malaise Respiratory: reports: shortness of breath. denies: cough, sputum, wheezing Cardiology: denies: chest pain, edema, heart racing, light headedness, palpitations, passing out Gastrointestinal: denies: abdominal pain, constipation, nausea, vomitting Musculoskeletal: reports: unstable gait. denies: falls, leg pain - Objective Allergies/Adverse Reactions: Allergies Allergy/AdvReac Type Severity Reaction Status Date / Time adhesive AdvReac Verified 04/28/20 13:42 Current Medications Acetaminophen (Tylenol) 1,000 mg PO Q6HR [facility] Last Admin: 05/09/20 05:27 Dose: 1,000 mg Acetaminophen (Tylenol) 650 mg PO Q4H PRN PRN Reason: Headache/Fever or Pain Hydrocodone Bitart/Acetaminophen ([place] 7.5/325) 1 tab PO Q4H PRN PRN Reason: PAIN SCALE 2-4 Hydrocodone Bitart/Acetaminophen ([place] 7.5/325) 2 tab PO Q4H PRN PRN Reason: PAIN SCALE 5-8 Albuterol Sulfate (Proventil Hfa) 2 puff INH Q6H PRN PRN Reason: SOB &/or Wheezing Albuterol/Ipratropium (Duoneb) 3 ml NEB Q4H PRN PRN Reason: Wheezing Last Admin: 05/08/20 13:59 Dose: 3 ml Aspirin (Ecotrin) 81 mg PO BID [facility] Last Admin: 05/09/20 08:37 Dose: 81 mg Cyclobenzaprine HCl (Flexeril) 5 mg PO TIDPRN PRN PRN Reason: Muscle Spasm Last Admin: 05/07/20 09:52 Dose: 5 mg Diphenhydramine HCl (Benadryl) 25 mg PO Q3H PRN PRN Reason: Itching Diphenhydramine HCl (Benadryl) 25 mg IM Q3H PRN PRN Reason: Itching Diphenhydramine HCl (Benadryl) 25 mg IVP Q3H PRN PRN Reason: Itching Doxycycline Hyclate (Vibramycin) 100 mg PO BID [facility] Last Admin: 05/09/20 08:37 Dose: 100 mg Dutasteride (Avodart) 0.5 mg PO DAILY [facility] Last Admin: 05/09/20 08:37 Dose: 0.5 mg Emollient Cream (Hydrocerin Cream) 0 gm TOP PRN PRN PRN Reason: Itching Fentanyl (Sublimaze) 50 mcg SLOW IVP Q1H PRN PRN Reason: Breakthrough Pain Ferrous Gluconate (Fergon) 324 mg PO BID [facility] Last Admin: 05/09/20 08:37 Dose: 324 mg Fluticasone Propionate (Flonase Nasal [place]) 0 gm NASAL DAILY [facility] Last Admin: 05/09/20 08:38 Dose: 1 spray Furosemide (Lasix) 20 mg IVP NOW [facility] Stop: 05/09/20 15:00 Gabapentin (Neurontin) 100 mg PO BID [facility] Last Admin: 05/09/20 08:37 Dose: 100 mg Hydralazine HCl (Apresoline) 10 mg SLOW IVP Q4H PRN PRN Reason: SBP GREATER THAN 160 Vancomycin HCl 500 mg/ Sodium (Chloride) 100 mls @ 100 mls/hr IVPB .DOSE BY LEVEL [facility] Ipratropium [place] (Atrovent) 2.5 ml NEB [id number] [facility] Last Admin: 05/09/20 07:02 Dose: 2.5 ml Iron/Minerals/Multivitamins (Theragran M) 1 tab PO DAILY [facility] Last Admin: 05/09/20 08:37 Dose: 1 tab Lidocaine (Lidoderm 5% Patch) 1 patch TD DAILY [facility] Last Admin: 05/09/20 08:37 Dose: 1 patch Miscellaneous Medication (Lidocaine Patch Removal) 1 each TOP HS [facility] Last Admin: 05/08/20 20:45 Dose: 1 each Miscellaneous Medication (Pharmacy To Dose) 1 each IVPB PRN PRN PRN Reason: Pharmacy to dose [facility] 15-20 Mometasone Furoate/Formoterol Fumar (Dulera 200 Mcg/5 Mcg Inhaler) 2 puff INH BID-RT [facility] Last Admin: 05/09/20 07:03 Dose: 2 puff Naloxone HCl (Narcan) 0.2 mg IV Q5MIN PRN PRN Reason: RR <=8 OR OBTUNDED/UNAROUSABLE Naloxone HCl (Narcan) 0.1 mg IVP Q15MIN PRN PRN Reason: URINARY RETENTION Ondansetron HCl (Zofran) 4 mg IVP Q6H PRN PRN Reason: Nausea/Vomiting Pantoprazole Sodium (Protonix) 40 mg PO DAILY [facility] Last Admin: 05/09/20 08:37 Dose: 40 mg Polyethylene Glycol (Miralax) 17 gm PO DAILY [facility] Last Admin: 05/09/20 08:37 Dose: 17 gm Prednisone (Prednisone) 20 mg PO DAILY [facility] Last Admin: 05/09/20 08:37 Dose: 20 mg Promethazine HCl (Phenergan) 12.5 mg IM Q4H PRN PRN Reason: Nausea Promethazine HCl (Phenergan Suppository) 25 mg [place] Q4H PRN PRN Reason: Nausea/Vomiting Rosuvastatin Calcium (Crestor) 10 mg PO [facility] Last Admin: 05/08/20 20:41 Dose: 10 mg Saccharomyces Boulardii (Florastor) 250 mg PO [facility] Last Admin: 05/08/20 20:41 Dose: 250 mg Senna/Docusate Sodium (Senokot S) 2 tab PO BID [facility] Last Admin: 05/09/20 08:37 Dose: 2 tab Sertraline HCl (Zoloft) 50 mg PO [facility] Last Admin: 05/08/20 20:41 Dose: 50 mg Sodium Chloride (Flush - Normal Saline) 10 ml IVF PRN PRN PRN Reason: Saline Flush Tamsulosin HCl (Flomax) 0.4 mg PO DAILY [facility] Last Admin: 05/09/20 08:37 Dose: 0.4 mg Testosterone Cypionate (Depo-Testosterone) 200 mg IM .[id number] [facility] Tramadol HCl (Ultram) 100 mg PO Q12H PRN PRN Reason: Moderate Pain 4-6 Last Admin: 05/07/20 20:30 Dose: 100 mg Tramadol HCl (Ultram) 50 mg PO Q12H PRN PRN Reason: Mild Pain 1-3 Vital Signs & Weight: Vital Signs Temp Pulse Resp BP Pulse Ox 05/09/20 11:13 97.4 F L 84 21 H 136/63 97 05/09/20 08:33 97.4 F L 82 18 138/63 97 05/09/20 08:00 97 05/09/20 07:02 77 16 100 05/09/20 04:29 97.7 F 78 16 134/68 96 05/09/20 00:42 80 14 99 Weight 197 lb 6.4 oz I/O: I/O 05/08/20 05/09/20 05/10/20 06:59 06:59 06:59 Intake Total 1900 1560 Output Total 1150 1400 Balance 750 160 - Quality Measures Condition: Atrial Fibrillation/Flutter (hx or current) - Medication Contraindications No Anticoagulant reason: Medical contraindication (a/c anemia) - Physical Exam General: alert & oriented x3, appears well, no apparent distress, speech clear, affect appropriate HEENT: mucus membranes moist, normocephaly Neck: supple neck, midline trachea, no lymphadenopathy, thyromegaly Cardiology: regular rate and rhythm, PMI nondisplaced Lungs: decreased breath sounds, wheezes. negative: no rales, no rhonchi Neurology: cranial nerve 2-12 intact, grossly intact, no lateralizing findings Abdomen: unremarkable, active bowel sounds, no pulsations/bruits Extremities: dry, strong pulses, warm - Labs Result Diagrams: 05/09/20 04:21 05/09/20 04:21 - EKG Interpretation EKG Method: Telemetry EKG shows: Sinus rhythm - Assessment/Plan Assessment/Plan: IMPRESSION: 1. History of persistent atrial fibrillation with prior ablation, requiring Tikosyn for suppression. 2. Acute on chronic kidney injury with creatinine clearance of 16 based on recent creatinine. 3. History of gastrointestinal bleed, 4. History of preserved left ventricular ejection fraction, 60% to 65%. 5. Chronic obstructive pulmonary disease. 6. Hypertension. 7. Status post septic hip revision. 8. status post Watchman, still requiring coil closure to address 2 small leads Maintaining SR. Occasional PAT runs with abberant conduction seen on tele (05/06 ). Anemia continues, Hgb 6.7 today. Transfusions continue. Has a history of GIB with GI evaluation/consult last in August 2019, where they had suspicion for bleeding AVMs. Continue to monitor rhythm on tele. Cannot resume anticoagulation with acute anemia ongoing. Consider GI consult.
--- NOTE | 2020-05-09 12:26 | PRG ---
DATE OF SERVICE: 05/09/2020 SUBJECTIVE: Patient was seen and examined at bedside and overnight events noted. Patient denies any shortness of breath or chest pain or palpitation. No history of nausea or vomiting or diarrhea or fever or chills or cramps. OBJECTIVE: GENERAL: This is an elderly male, in no apparent distress. VITAL SIGNS: Temperature 97.4. Heart rate 82. Respiratory rate 18. Blood pressure 138/63. HEENT: Atraumatic, normocephalic. Oral mucosa is moist NECK: Supple. CARDIOVASCULAR: S1, S2 heard. Rate and rhythm regular. RESPIRATORY: Clear to auscultation. GASTROINTESTINAL: Abdomen is soft. MUSCULOSKELETAL: No tenderness. No edema. DERMATOLOGIC: No skin rash. NEUROLOGIC: Alert and awake and oriented X3. No focal neurologic deficits. Moving all the extremities. PSYCHIATRIC: Mood and affect normal. LABORATORY DATA: Potassium 4.0, BUN is 125, creatinine is 3.1. ASSESSMENT AND PLAN: 1. Acute kidney injury on chronic kidney disease, stage 4. Improvement in creatinine. BUN remains elevated. 2. Fluid overload. 3. Cardiorenal syndrome. 4. Edema. 5. History of hypertension. 6. Continue current management. Creatinine is getting better. BUN remains elevated, most likely from diuresis and steroids. We will follow. Job ID: [id number]
--- NOTE | 2020-05-09 12:54 | PRG ---
DATE OF SERVICE: 05/09/2020 This is Drea Calzada PA-C dictating a report for Wilver Salamanca MD. SUBJECTIVE: The patient states that he is doing well. He is feeling stiff from being in bed over the last day or 2. He states that he has not gotten out of bed with physical therapy does report pain, but mainly localized to his back as he states from not getting out of bed. Dressing to the left hip changed this morning. Otherwise, no new issues. OBJECTIVE: VITAL SIGNS: Temperature 97.7, pulse of 78, respiratory rate of 16, blood pressure 134/68, and pulse ox of 96. GENERAL: The patient is awake and alert. He is in no apparent distress. He is sitting up in bed, and is pleasant and cooperative today. MUSCULOSKELETAL: Evaluation of his left hip shows Tega-pad dressing that was changed this morning by the date marked on the dressing. The patient has movement distally in his left lower extremity. There is approximately 2+ pitting edema in his thigh. LABORATORY DATA: Laboratory data reviewed, which from today shows a CBC with a hemoglobin of 6.7, hematocrit of 22.9. BUN 125, creatinine 3.13. ASSESSMENT AND PLAN: The patient is status post left hip hemiarthroplasty revision for infection. Currently on vancomycin and doxycycline per Infectious Disease's recommendations. Medical management by hospitalist team. The patient also being seen by Renal for acute on chronic renal issues. We will go ahead and transfuse him 1 unit PRBCs today. See how he is doing tomorrow. Job ID: [id number]
[2020-05-09] MEDS ORDERED: Vancomycin HCl 500 MG in Sodium Chloride 0.9% 100 ML IVPB SCH (14:00)
[2020-05-09] MEDS: Saccharomyces boulardii 250 MG CAP PO SCH (20:42)
[2020-05-09] MEDS: Lidocaine Patch Removal TOP SCH (20:42)
[2020-05-09] MEDS: Rosuvastatin 10 MG TAB PO SCH (20:42)
[2020-05-09] MEDS: traMADol HCl 50 MG TAB PO PRN (20:58)
[2020-05-09 22:38] LABS: Hemoglobin 7.6 g/dL (14.0-18.0); Platelet Count 385 thou/uL (130-400)
[2020-05-10] MEDS: Ipratropium Bromide 2.5 ml Neb NEB SCH ×4 (00:50→18:39)
[2020-05-10] MEDS: Acetaminophen 500 MG TAB PO SCH ×5 (01:11→23:04)
[2020-05-10] MEDS: Cyclobenzaprine 10 MG TAB PO PRN ×2 (04:15→20:48)
[2020-05-10 04:39] LABS: Hemoglobin 7.8 g/dL (14.0-18.0); Mean Corpuscular HGB CONC 30.9 g/dL (32.0-36.0); Mean Corpuscular Hemoglobin 27.7 pg (27.0-31.0); Mean Corpuscular Volume 89.7 fL (78.0-98.0); Mean Platelet Volume 7.8 fL (7.4-10.4); Platelet Count 433 thou/uL (130-400); RBC Distribution Width 19.3 % (11.5-14.5); Red Blood Cell (RBC) Count 2.81 mill/uL (4.70-6.10); White Blood Cell (WBC) Count 14.5 thou/uL (4.8-10.8)
[2020-05-10 05:06] LABS: Anion Gap 14 mmol/L (10-20); Calc. Creatinine Clearance 25 mL/min (70-130); Calcium 7.8 mg/dL (7.8-10.44); Carbon Dioxide 27 mmol/L (23-31); Chloride 100 mmol/L (98-107); Estimated GFR-MDRD 20; Glucose 90 mg/dL (83-110); Magnesium 3.7 mg/dL (1.6-2.6); Potassium 4.2 mmol/L (3.5-5.1); Sodium 137 mmol/L (136-145)
[2020-05-10 05:17] LABS: BUN (Urea Nitrogen) 113 mg/dL (8.4-25.7)
[2020-05-10] MEDS: Mometasone 200 MCG/Formoterol 5 MCG 120 PUFF INHALER INH SCH ×2 (06:37→18:46)
[2020-05-10] MEDS: Lidocaine 5% Patch TD SCH (07:47)
[2020-05-10] MEDS: Dutasteride 0.5 MG CAP PO SCH (07:52)
[2020-05-10] MEDS: Multivitamin W/ Minerals 1 TAB PO SCH (07:52)
[2020-05-10] MEDS: Doxycycline 100 MG CAP PO SCH ×2 (07:52→20:49)
[2020-05-10] MEDS: Senokot S 8.6-50 MG TAB PO SCH ×2 (07:52→20:50)
[2020-05-10] MEDS: Aspirin 81 mg Enteric Coated Tablet PO SCH ×2 (07:52→20:49)
[2020-05-10] MEDS: Tamsulosin HCl 0.4 MG CAP PO SCH (07:52)
[2020-05-10] MEDS: Gabapentin 100 MG CAP PO SCH ×2 (07:53→20:49)
[2020-05-10] MEDS: Cyanocobalamin (Vitamin B-12) 1,000 MCG TAB PO SCH (07:53)
[2020-05-10] MEDS: Polyethylene Glycol 3350 17 GM Packet PO SCH (07:53)
[2020-05-10] MEDS: Folic Acid 1 MG TAB PO SCH (07:53)
[2020-05-10] MEDS: Ferrous Gluconate 324 MG TAB PO SCH ×2 (07:53→20:49)
[2020-05-10] MEDS: predniSONE 20 MG TAB PO SCH (07:53)
[2020-05-10] MEDS: Fluticasone Propionate Nasal Spray 16 gm Bottle NASAL SCH (07:54)
--- NOTE | 2020-05-10 11:47 | PDOC.HOSPP ---
- Subjective Encounter Date: 05/10/20 Subjective: Patient is an 79-year-old male post-op day 7 for bipolar hemiarthroplasty of left hip, examined for medical management. Overnight, patient complained of pain until he received pain medication. Now, his pain is controlled. No chest pain or SOB. No new events. - Objective Vital Signs & Weight: Vital Signs (12 hours) Temp Pulse Resp BP BP Pulse Ox 05/10/20 11:32 98 F 82 18 144/76 H 98 05/10/20 08:00 97 05/10/20 07:41 97.6 F 84 18 137/64 97 05/10/20 06:37 90 16 05/10/20 04:00 98.2 F 88 20 133/61 95 05/10/20 00:50 84 16 98 Weight Weight 198 lb 1.6 oz I&O: 05/09/20 05/10/20 05/11/20 06:59 06:59 06:59 Intake Total 1560 1610 Output Total 1400 1875 Balance 160 -265 Result Diagrams: 05/10/20 04:08 05/10/20 04:08 Hospitalist ROS - Review of Systems Constitutional: denies: fever, chills, sweats, weakness, malaise, other Eyes: denies: pain, vision change, conjunctivae inflammation, eyelid inflammation, redness, other ENT: denies: ear pain, ear discharge, nose pain, nose discharge, nose congestion , mouth pain, mouth swelling, throat pain, throat swelling, other Respiratory: denies: cough, dry, shortness of breath, hemoptysis, SOB with excertion, pleuritic pain, sputum, wheezing, other Cardiovascular: denies: chest pain, palpitations, orthopnea, paroxysmal noc. dyspnea, edema, light headedness, other Gastrointestinal: denies: nausea, vomiting, abdominal pain, diarrhea, constipation, melena, hematochezia, other Genitourinary: denies: dysuria, frequency, incontinence, hematuria, retention, other Musculoskeletal: denies: neck pain, shoulder pain, arm pain, back pain, hand pain, leg pain, foot pain, other Skin: denies: rash, lesions, eli, bruising, other Neurological: denies: weakness, numbness, incoordination, change in speech, confusion, seizures, other All other systems reviewed; all pertinent +/- noted in HPI/Subj - Medication Medications: Active Medications Generic Name Dose Route Start Last Admin Trade Name Freq PRN Reason Stop Dose Admin Acetaminophen 1,000 mg 05/03/20 18:00 05/10/20 04:15 Tylenol PO 1,000 mg Q6HR SHORTY Administration Albuterol/Ipratropium 3 ml 05/03/20 17:58 05/10/20 06:37 Duoneb NEB 3 ml Q4H PRN Administration Wheezing Aspirin 81 mg 05/03/20 21:00 05/10/20 07:52 Ecotrin PO 81 mg BID SHORTY Administration Cyanocobalamin 1,000 mcg 05/10/20 09:00 05/10/20 07:53 Vitamin B-12 PO 1,000 mcg DAILY SHORTY Administration Cyclobenzaprine HCl 5 mg 05/03/20 17:58 05/10/20 04:15 Flexeril PO 5 mg TIDPRN PRN Administration Muscle Spasm Doxycycline Hyclate 100 mg 05/04/20 21:00 05/10/20 07:52 Vibramycin PO 100 mg BID SHORTY Administration Dutasteride 0.5 mg 05/04/20 09:00 05/10/20 07:52 Avodart PO 0.5 mg DAILY SHORTY Administration Fentanyl 50 mcg 05/06/20 11:24 05/10/20 07:45 Sublimaze SLOW IVP 50 mcg Q1H PRN Administration Breakthrough Pain Ferrous Gluconate 324 mg 05/04/20 09:00 05/10/20 07:53 Fergon PO 324 mg BID SHORTY Administration Fluticasone Propionate 0 gm 05/04/20 09:00 05/10/20 07:54 Flonase Nasal [place] NASAL 1 spray DAILY SHORTY Administration Folic Acid 1 mg 05/10/20 09:00 05/10/20 07:53 Folvite PO 1 mg DAILY SHORTY Administration Gabapentin 100 mg 05/03/20 21:00 05/10/20 07:53 Neurontin PO 100 mg BID SHORTY Administration Ipratropium [place] 2.5 ml 05/03/20 19:00 05/10/20 06:38 Atrovent NEB Not Given [id number] SHORTY Iron/Minerals/Multivitamins 1 tab 05/04/20 09:00 05/10/20 07:52 Theragran M PO 1 tab DAILY SHORTY Administration Lidocaine 1 patch 05/04/20 09:00 05/10/20 07:47 Lidoderm 5% Patch TD 1 patch DAILY SHORTY Administration Miscellaneous Medication 1 each 05/04/20 21:00 05/09/20 20:42 Lidocaine Patch Removal TOP 1 each HS SHORTY Administration Mometasone Furoate/Formoterol Fumar 2 puff 05/03/20 18:30 05/10/20 06:37 Dulera 200 Mcg/5 Mcg Inhaler INH 2 puff BID-RT SHORTY Administration Pantoprazole Sodium 40 mg 05/04/20 09:00 05/10/20 07:52 Protonix PO 40 mg DAILY SHORTY Administration Polyethylene Glycol 17 gm 05/04/20 09:00 05/10/20 07:53 Miralax PO 17 gm DAILY SHORTY Administration Prednisone 20 mg 05/04/20 09:00 05/10/20 07:53 Prednisone PO 20 mg DAILY SHORTY Administration Rosuvastatin Calcium 10 mg 05/03/20 21:00 05/09/20 20:42 Crestor PO 10 mg HS SHORTY Administration Saccharomyces Boulardii 250 mg 05/04/20 21:00 05/09/20 20:42 Florastor PO 250 mg HS SHORTY Administration Senna/Docusate Sodium 2 tab 05/04/20 09:00 05/10/20 07:52 Senokot S PO 2 tab BID SHORTY Administration Sertraline HCl 50 mg 05/03/20 21:00 05/09/20 20:42 Zoloft PO 50 mg HS SHORTY Administration Tamsulosin HCl 0.4 mg 05/04/20 09:00 05/10/20 07:52 Flomax PO 0.4 mg DAILY SHORTY Administration Tramadol HCl 100 mg 05/06/20 12:30 05/09/20 20:58 Ultram PO 100 mg Q12H PRN Administration Moderate Pain 4-6 - Exam General Appearance: awake alert Neck: supple, symmetric, no JVD, no carotid bruit Heart: RRR, no murmur, no gallops, no rubs, normal peripheral pulses Respiratory: CTAB, no rales, no ronchi, wheezes Gastrointestinal: soft, non-tender, non-distended, normal bowel sounds, no palpable masses Extremities: no cyanosis, no clubbing, 2+ LE edema Skin: normal turgor, no lesions Neurological: cranial nerve grossly intact Psychiatric: normal affect, normal behavior, A&O x 3 Hosp A/P - Plan PT/OT, DVT proph w/SCDs Left hip infection s/p arthroplasty - Mngt per Ortho - on Doxycycline/Vancomycin Chronic diastolic HF - compensated COPD/Chronic hypoxic resp failure on 3.5 L O2 at home 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
[2020-05-10] MEDS ORDERED: Acetaminophen 500 MG TAB PO SCH (13:00)
[2020-05-10] MEDS: Furosemide 40 MG TAB PO SCH (13:10)
[2020-05-10] MEDS: HYDROcodone/Acetaminophen 7.5/325 mg Tablet PO PRN ×3 (13:10→23:04)
--- NOTE | 2020-05-10 13:51 | PRG ---
DATE OF SERVICE: 05/10/2020 SUBJECTIVE: The patient was seen and examined at bedside and overnight events noted. The patient denies any shortness of breath or chest pain or palpitation. No history of nausea or vomiting or diarrhea or fever or chills or cramps. OBJECTIVE: GENERAL: This is a well-built male, in no apparent distress. VITAL SIGNS: Temperature 98.0. Heart rate 82. Respiratory rate 18. Blood pressure 138/66. HEENT: Atraumatic, normocephalic. Oral mucosa is moist. NECK: Supple. CARDIOVASCULAR: S1, S2 heard. Rate and rhythm regular. RESPIRATORY: Clear to auscultation. GASTROINTESTINAL: Abdomen is soft. MUSCULOSKELETAL: No tenderness. No edema. DERMATOLOGIC: No skin rash. NEUROLOGIC: Alert and awake and oriented x3. No focal neurologic deficits. Moving all the extremities. PSYCHIATRIC: Mood and affect normal. LABORATORY DATA: Potassium is 4.2, BUN is 113, creatinine is 2.9 ASSESSMENT AND PLAN: 1. Acute kidney injury on chronic kidney disease, stage 4. Creatinine continues to get better. BUN also better than yesterday. 2. Fluid overload. We will start on Lasix as tolerated. 3. Cardiorenal syndrome. 4. History of hypertension. 5. Edema. We will add Lasix with close monitoring of renal function and monitoring electrolytes. We will follow. Job ID: [id number]
[2020-05-10 14:09] LABS: Vancomycin, Random 20.1 ug/mL (See Comment)
[2020-05-10] MEDS ORDERED: Vancomycin HCl 500 MG in Sodium Chloride 0.9% 100 ML IVPB SCH (15:00)
--- NOTE | 2020-05-10 15:30 | PRG ---
DATE OF SERVICE: 05/10/2020 This is Drea Calzada PA-C dictating a report for Wilver Salamanca MD. SUBJECTIVE: The patient currently about to get up with physical therapy. He states that his hip is feeling better today. Received 2 units of PRBC yesterday. Otherwise, no new events. OBJECTIVE: VITAL SIGNS: Temperature of 98, pulse 82, respiratory rate 18, O2 saturation 98 on 3 L nasal cannula, and blood pressure 144/76. GENERAL: The patient is awake and alert. He is in no apparent distress. He is sitting up in bed at this time. MUSCULOSKELETAL: Left hip tegapad dressing is intact. This was last changed yesterday according to the date on the dressing. Positive movement in bilateral lower extremities. GENITOURINARY: Indwelling De intact. LABORATORY DATA: Hemoglobin 7.8, hematocrit 25.2. Please note this is above from yesterday morning at 6.7 and 22.9. Chemistry today shows BUN of 113 and creatinine of 2.98. Please note, yesterday's values were 125 and 3.13. ASSESSMENT: Status post revision of left hip hemiarthroplasty for infection with multiple medical comorbidities. PLAN: At this time, continue physical therapy. Continue antibiotics per Dr. Beaver. Hem/Onc was consulted today as the patient is established with them and receives routine blood transfusions for iron deficiency anemia. We will await recommendations by them. Continue current plan of care. Job ID: [id number] MTDD
--- NOTE | 2020-05-10 15:38 | PDOC.EP ---
- Subjective Date: 05/10/20 Time: 08:00 Interval History: electrophysiology follow-up note for arrhythmia management. Remains off Tikosyn. Patient is concerned about his recurrent anemia. He voices no cardiac concerns or complaints. - Review of Systems Constitutional: reports: weakness. denies: chills, fever, malaise, sweats Respiratory: reports: shortness of breath. denies: cough, dry, sputum, wheezing Cardiology: denies: chest pain, heart racing, light headedness, passing out Gastrointestinal: reports: melena. denies: abdominal pain, diarrhea, nausea, vomitting Musculoskeletal: denies: unstable gait, falls, leg pain - Objective Allergies/Adverse Reactions: Allergies Allergy/AdvReac Type Severity Reaction Status Date / Time adhesive AdvReac Verified 04/28/20 13:42 Current Medications Acetaminophen (Tylenol) 650 mg PO Q4H PRN PRN Reason: Headache/Fever or Pain Acetaminophen (Tylenol) 500 mg PO Q6HR [facility] Hydrocodone Bitart/Acetaminophen ([place] 7.5/325) 1 tab PO Q4H PRN PRN Reason: Severe Pain (7-10) Last Admin: 05/10/20 13:10 Dose: 1 tab Hydrocodone Bitart/Acetaminophen ([place] 7.5/325) 2 tab PO Q4H PRN PRN Reason: Breakthrough Pain Albuterol Sulfate (Proventil Hfa) 2 puff INH Q6H PRN PRN Reason: SOB &/or Wheezing Albuterol/Ipratropium (Duoneb) 3 ml NEB Q4H PRN PRN Reason: Wheezing Last Admin: 05/10/20 12:44 Dose: 3 ml Aspirin (Ecotrin) 81 mg PO BID [facility] Last Admin: 05/10/20 07:52 Dose: 81 mg Cyanocobalamin (Vitamin B-12) 1,000 mcg PO DAILY [facility] Last Admin: 05/10/20 07:53 Dose: 1,000 mcg Cyclobenzaprine HCl (Flexeril) 5 mg PO TIDPRN PRN PRN Reason: Muscle Spasm Last Admin: 05/10/20 04:15 Dose: 5 mg Diphenhydramine HCl (Benadryl) 25 mg PO Q3H PRN PRN Reason: Itching Diphenhydramine HCl (Benadryl) 25 mg IM Q3H PRN PRN Reason: Itching Diphenhydramine HCl (Benadryl) 25 mg IVP Q3H PRN PRN Reason: Itching Doxycycline Hyclate (Vibramycin) 100 mg PO BID [facility] Last Admin: 05/10/20 07:52 Dose: 100 mg Dutasteride (Avodart) 0.5 mg PO DAILY [facility] Last Admin: 05/10/20 07:52 Dose: 0.5 mg Emollient Cream (Hydrocerin Cream) 0 gm TOP PRN PRN PRN Reason: Itching Fentanyl (Sublimaze) 50 mcg SLOW IVP Q1H PRN PRN Reason: Severe Breakthrough Pain Last Admin: 05/10/20 07:45 Dose: 50 mcg Ferrous Gluconate (Fergon) 324 mg PO BID [facility] Last Admin: 05/10/20 07:53 Dose: 324 mg Fluticasone Propionate (Flonase Nasal [place]) 0 gm NASAL DAILY [facility] Last Admin: 05/10/20 07:54 Dose: 1 spray Folic Acid (Folvite) 1 mg PO DAILY [facility] Last Admin: 05/10/20 07:53 Dose: 1 mg Furosemide (Lasix) 40 mg PO 0900,1400 [facility] Last Admin: 05/10/20 13:10 Dose: 40 mg Gabapentin (Neurontin) 100 mg PO BID [facility] Last Admin: 05/10/20 07:53 Dose: 100 mg Hydralazine HCl (Apresoline) 10 mg SLOW IVP Q4H PRN PRN Reason: SBP GREATER THAN 160 Vancomycin HCl 500 mg/ Sodium (Chloride) 100 mls @ 100 mls/hr IVPB .DOSE BY LEVEL [facility] Vancomycin HCl 500 mg/ Sodium (Chloride) 100 mls @ 100 mls/hr IVPB 1500 [facility] Stop: 05/10/20 18:00 Ipratropium [place] (Atrovent) 2.5 ml NEB [id number] [facility] Last Admin: 05/10/20 12:54 Dose: Not Given Iron/Minerals/Multivitamins (Theragran M) 1 tab PO DAILY [facility] Last Admin: 05/10/20 07:52 Dose: 1 tab Lidocaine (Lidoderm 5% Patch) 1 patch TD DAILY [facility] Last Admin: 05/10/20 07:47 Dose: 1 patch Miscellaneous Medication (Lidocaine Patch Removal) 1 each TOP HS [facility] Last Admin: 05/09/20 20:42 Dose: 1 each Miscellaneous Medication (Pharmacy To Dose) 1 each IVPB PRN PRN PRN Reason: Pharmacy to dose [facility] 15-20 Mometasone Furoate/Formoterol Fumar (Dulera 200 Mcg/5 Mcg Inhaler) 2 puff INH BID-RT [facility] Last Admin: 05/10/20 06:37 Dose: 2 puff Naloxone HCl (Narcan) 0.2 mg IV Q5MIN PRN PRN Reason: RR <=8 OR OBTUNDED/UNAROUSABLE Naloxone HCl (Narcan) 0.1 mg IVP Q15MIN PRN PRN Reason: URINARY RETENTION Ondansetron HCl (Zofran) 4 mg IVP Q6H PRN PRN Reason: Nausea/Vomiting Pantoprazole Sodium (Protonix) 40 mg PO DAILY [facility] Last Admin: 05/10/20 07:52 Dose: 40 mg Polyethylene Glycol (Miralax) 17 gm PO DAILY [facility] Last Admin: 05/10/20 07:53 Dose: 17 gm Prednisone (Prednisone) 20 mg PO DAILY [facility] Last Admin: 05/10/20 07:53 Dose: 20 mg Promethazine HCl (Phenergan) 12.5 mg IM Q4H PRN PRN Reason: Nausea Promethazine HCl (Phenergan Suppository) 25 mg [place] Q4H PRN PRN Reason: Nausea/Vomiting Rosuvastatin Calcium (Crestor) 10 mg PO HS [facility] Last Admin: 05/09/20 20:42 Dose: 10 mg Saccharomyces Boulardii (Florastor) 250 mg PO HS [facility] Last Admin: 05/09/20 20:42 Dose: 250 mg Senna/Docusate Sodium (Senokot S) 2 tab PO BID [facility] Last Admin: 05/10/20 07:52 Dose: 2 tab Sertraline HCl (Zoloft) 50 mg PO HS [facility] Last Admin: 05/09/20 20:42 Dose: 50 mg Sodium Chloride (Flush - Normal Saline) 10 ml IVF PRN PRN PRN Reason: Saline Flush Tamsulosin HCl (Flomax) 0.4 mg PO DAILY [facility] Last Admin: 05/10/20 07:52 Dose: 0.4 mg Testosterone Cypionate (Depo-Testosterone) 200 mg IM .[id number] [facility] Tramadol HCl (Ultram) 100 mg PO Q12H PRN PRN Reason: Moderate Pain 4-6 Last Admin: 05/09/20 20:58 Dose: 100 mg Tramadol HCl (Ultram) 50 mg PO Q12H PRN PRN Reason: Mild Pain 1-3 Vital Signs & Weight: Vital Signs Temp Pulse Pulse Resp BP BP BP 05/10/20 11:32 98 F 82 18 144/76 H 05/10/20 10:10 99 123/58 L 138/66 05/10/20 08:00 05/10/20 07:41 97.6 F 84 18 137/64 05/10/20 06:37 90 16 05/10/20 04:00 98.2 F 88 20 BP Pulse Ox 05/10/20 11:32 98 05/10/20 10:10 05/10/20 08:00 97 05/10/20 07:41 97 05/10/20 06:37 05/10/20 04:00 133/61 95 Weight 198 lb 1.6 oz I/O: I/O 05/09/20 05/10/20 05/11/20 06:59 06:59 06:59 Intake Total 1560 1610 Output Total 1400 1875 Balance 160 -265 - Quality Measures Condition: Atrial Fibrillation/Flutter (hx or current) - Medication Contraindications No Anticoagulant reason: Medical contraindication (a/c anemia) - Physical Exam General: alert & oriented x3, appears well, no apparent distress, speech clear, affect appropriate HEENT: mucus membranes moist, normocephaly Neck: supple neck, midline trachea, no lymphadenopathy Cardiology: regular rate and rhythm, no murmur, PMI nondisplaced Lungs: normal breath sounds, wheezes. negative: no rales, no rhonchi Neurology: cranial nerve 2-12 intact, grossly intact, no lateralizing findings Abdomen: unremarkable, active bowel sounds, no pulsations/bruits Extremities: dry, strong pulses, warm - Labs Result Diagrams: 05/10/20 04:08 05/10/20 04:08 - EKG Interpretation EKG Method: Telemetry EKG shows: Sinus rhythm - Assessment/Plan Assessment/Plan: IMPRESSION: 1. History of persistent atrial fibrillation with prior ablation, requiring Tikosyn for suppression. 2. Acute on chronic kidney injury with creatinine clearance of 16 based on recent creatinine. 3. History of gastrointestinal bleed, 4. History of preserved left ventricular ejection fraction, 60% to 65%. 5. Chronic obstructive pulmonary disease. 6. Hypertension. 7. Status post septic hip revision. 8. status post Watchman, still requiring coil closure to address 2 small leads Maintaining SR. Occasional PAT runs with abberant conduction seen on tele (05/06 ). Continue to monitor rhythm on tele. Has a history of GIB with GI evaluation/ consult last in August 2019, where they had suspicion for bleeding AVMs, + FOCB/ guiac. Cannot resume anticoagulation with acute anemia ongoing. Defer to medical team discretion regarding benefit of a repeat GI consult. Consider repeat ANNAMARIA in the future to reassess CHERELLE, if his pulmonary status will tolerate this procedure. Last ANNAMARIA was Nov 2019 and shows 2 small michelle-Watchman leaks.
[2020-05-10] MEDS: Saccharomyces boulardii 250 MG CAP PO SCH (20:48)
[2020-05-10] MEDS: Lidocaine Patch Removal TOP SCH (20:49)
[2020-05-10] MEDS: Rosuvastatin 10 MG TAB PO SCH (20:49)
[2020-05-11] MEDS: Ipratropium Bromide 2.5 ml Neb NEB SCH ×4 (00:17→18:23)
[2020-05-11] MEDS: HYDROcodone/Acetaminophen 7.5/325 mg Tablet PO PRN ×4 (04:48→20:39)
[2020-05-11] MEDS: Acetaminophen 500 MG TAB PO SCH ×3 (04:48→18:21)
[2020-05-11 04:52] LABS: Hemoglobin 7.1 g/dL (14.0-18.0); Mean Corpuscular Hemoglobin 27.3 pg (27.0-31.0); Mean Platelet Volume 7.6 fL (7.4-10.4); Platelet Count 402 thou/uL (130-400); RBC Distribution Width 19.2 % (11.5-14.5); Red Blood Cell (RBC) Count 2.58 mill/uL (4.70-6.10); White Blood Cell (WBC) Count 13.3 thou/uL (4.8-10.8)
[2020-05-11 05:03] LABS: Anion Gap 15 mmol/L (10-20); BUN (Urea Nitrogen) 123 mg/dL (8.4-25.7); Calc. Creatinine Clearance 25 mL/min (70-130); Calcium 7.6 mg/dL (7.8-10.44); Carbon Dioxide 25 mmol/L (23-31); Chloride 100 mmol/L (98-107); Estimated GFR-MDRD 20; Glucose 98 mg/dL (83-110); Potassium 3.9 mmol/L (3.5-5.1); Sodium 136 mmol/L (136-145)
[2020-05-11] MEDS: Mometasone 200 MCG/Formoterol 5 MCG 120 PUFF INHALER INH SCH ×2 (07:22→18:26)
[2020-05-11] MEDS: Aspirin 81 mg Enteric Coated Tablet PO SCH ×2 (09:30→20:38)
[2020-05-11] MEDS: Cyanocobalamin (Vitamin B-12) 1,000 MCG TAB PO SCH (09:30)
[2020-05-11] MEDS: Dutasteride 0.5 MG CAP PO SCH (09:30)
[2020-05-11] MEDS: Doxycycline 100 MG CAP PO SCH ×2 (09:30→20:37)
[2020-05-11] MEDS: Senokot S 8.6-50 MG TAB PO SCH ×2 (09:31→20:38)
[2020-05-11] MEDS: Fluticasone Propionate Nasal Spray 16 gm Bottle NASAL SCH (09:31)
[2020-05-11] MEDS: Folic Acid 1 MG TAB PO SCH (09:31)
[2020-05-11] MEDS: Ferrous Gluconate 324 MG TAB PO SCH ×2 (09:31→20:39)
[2020-05-11] MEDS: Furosemide 40 MG TAB PO SCH (09:31)
[2020-05-11] MEDS: Gabapentin 100 MG CAP PO SCH ×2 (09:31→20:39)
[2020-05-11] MEDS: Tamsulosin HCl 0.4 MG CAP PO SCH (09:32)
[2020-05-11] MEDS: Polyethylene Glycol 3350 17 GM Packet PO SCH (09:32)
[2020-05-11] MEDS: Lidocaine 5% Patch TD SCH (09:32)
[2020-05-11] MEDS: predniSONE 20 MG TAB PO SCH (09:32)
[2020-05-11] MEDS: Multivitamin W/ Minerals 1 TAB PO SCH (09:32)
--- NOTE | 2020-05-11 10:02 | PDOC.HOSPP ---
- Subjective Encounter Date: 05/11/20 Encounter Time: 10:00 Subjective: Patient seen and examined for medical management following left hip hemiarthroplasty. Patient complains pain is 7/10 unless given pain medication. Patient is otherwise doing well. No new symptoms. No overnight events. - Objective Vital Signs & Weight: Vital Signs (12 hours) Temp Pulse Resp BP Pulse Ox 05/11/20 08:05 97.3 F L 85 20 145/70 H 94 L 05/11/20 07:23 81 14 05/11/20 04:00 97.2 F L 85 20 139/67 98 05/11/20 00:17 12 Weight Weight 199 lb I&O: 05/10/20 05/11/20 05/12/20 06:59 06:59 06:59 Intake Total 1610 2400 Output Total 1875 1675 Balance -265 725 Result Diagrams: 05/11/20 04:22 05/11/20 04:22 EKG Reviewed by me: Yes (Tele SR) Hospitalist ROS - Review of Systems Respiratory: denies: cough, dry, shortness of breath, hemoptysis, SOB with excertion, pleuritic pain, sputum, wheezing, other Cardiovascular: denies: chest pain, palpitations, orthopnea, paroxysmal noc. dyspnea, edema, light headedness, other Gastrointestinal: denies: nausea, vomiting, abdominal pain, diarrhea, constipation, melena, hematochezia, other - Medication Medications: Active Medications Generic Name Dose Route Start Last Admin Trade Name Freq PRN Reason Stop Dose Admin Acetaminophen 500 mg 05/10/20 18:00 05/11/20 04:48 Tylenol PO 500 mg Q6HR SHORTY Administration Hydrocodone Bitart/Acetaminophen 1 tab 05/09/20 10:22 05/11/20 09:45 [place] 7.5/325 PO 1 tab Q4H PRN Administration Severe Pain (7-10) Albuterol/Ipratropium 3 ml 05/03/20 17:58 05/11/20 07:23 Duoneb NEB 3 ml Q4H PRN Administration Wheezing Aspirin 81 mg 05/03/20 21:00 05/11/20 09:30 Ecotrin PO 81 mg BID SHORTY Administration Cyanocobalamin 1,000 mcg 05/10/20 09:00 05/11/20 09:30 Vitamin B-12 PO 1,000 mcg DAILY SHORTY Administration Cyclobenzaprine HCl 5 mg 05/03/20 17:58 05/10/20 20:48 Flexeril PO 5 mg TIDPRN PRN Administration Muscle Spasm Diphenhydramine HCl 25 mg 05/03/20 18:00 05/10/20 23:48 Benadryl PO 25 mg Q3H PRN Administration Itching Doxycycline Hyclate 100 mg 05/04/20 21:00 05/11/20 09:30 Vibramycin PO 100 mg BID SHORTY Administration Dutasteride 0.5 mg 05/04/20 09:00 05/11/20 09:30 Avodart PO 0.5 mg DAILY SHORTY Administration Fentanyl 50 mcg 05/06/20 11:24 05/10/20 07:45 Sublimaze SLOW IVP 50 mcg Q1H PRN Administration Severe Breakthrough Pain Ferrous Gluconate 324 mg 05/04/20 09:00 05/11/20 09:31 Fergon PO 324 mg BID SHORTY Administration Fluticasone Propionate 0 gm 05/04/20 09:00 05/11/20 09:31 Flonase Nasal [place] NASAL 1 spray DAILY SHORTY Administration Folic Acid 1 mg 05/10/20 09:00 05/11/20 09:31 Folvite PO 1 mg DAILY SHORTY Administration Furosemide 40 mg 05/10/20 14:00 05/11/20 09:31 Lasix PO 40 mg 0900,1400 SHORTY Administration Gabapentin 100 mg 05/03/20 21:00 05/11/20 09:31 Neurontin PO 100 mg BID SHORTY Administration Ipratropium [place] 2.5 ml 05/03/20 19:00 05/11/20 07:28 Atrovent NEB Not Given [id number] [facility] Iron/Minerals/Multivitamins 1 tab 05/04/20 09:00 05/11/20 09:32 Theragran M PO 1 tab DAILY SHORTY Administration Lidocaine 1 patch 05/04/20 09:00 05/11/20 09:32 Lidoderm 5% Patch TD 1 patch DAILY SHORTY Administration Miscellaneous Medication 1 each 05/04/20 21:00 05/10/20 20:49 Lidocaine Patch Removal TOP 1 each HS SHORTY Administration Mometasone Furoate/Formoterol Fumar 2 puff 05/03/20 18:30 05/11/20 07:22 Dulera 200 Mcg/5 Mcg Inhaler INH 2 puff BID-RT SHORTY Administration Pantoprazole Sodium 40 mg 05/04/20 09:00 05/11/20 09:32 Protonix PO 40 mg DAILY SHORTY Administration Polyethylene Glycol 17 gm 05/04/20 09:00 05/11/20 09:32 Miralax PO 17 gm DAILY SHORTY Administration Prednisone 20 mg 05/04/20 09:00 05/11/20 09:32 Prednisone PO 20 mg DAILY SHORTY Administration Rosuvastatin Calcium 10 mg 05/03/20 21:00 05/10/20 20:49 Crestor PO 10 mg HS SHORTY Administration Saccharomyces Boulardii 250 mg 05/04/20 21:00 05/10/20 20:48 Florastor PO 250 mg HS SHORTY Administration Senna/Docusate Sodium 2 tab 05/04/20 09:00 05/11/20 09:31 Senokot S PO 2 tab BID SHORTY Administration Sertraline HCl 50 mg 05/03/20 21:00 05/10/20 20:49 Zoloft PO 50 mg HS SHORTY Administration Tamsulosin HCl 0.4 mg 05/04/20 09:00 05/11/20 09:32 Flomax PO 0.4 mg DAILY SHORTY Administration Tramadol HCl 100 mg 05/06/20 12:30 05/09/20 20:58 Ultram PO 100 mg Q12H PRN Administration Moderate Pain 4-6 - Exam General Appearance: awake alert Neck: no carotid bruit Heart: RRR, no murmur, no gallops, no rubs, normal peripheral pulses Respiratory: CTAB, no wheezes, no rales, no ronchi, no tachypnea Gastrointestinal: soft, non-tender, non-distended, normal bowel sounds, no palpable masses Extremities: no cyanosis, no clubbing, no edema, 2+ LE edema Hosp A/P - Plan DVT proph w/SCDs Left hip infection s/p arthroplasty - Mngt per Ortho - on Doxycycline/Vancomycin Chronic diastolic HF - compensated COPD/Chronic hypoxic resp failure on 3.5 L O2 at home 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
--- NOTE | 2020-05-11 10:12 | PDOC.EP ---
- Subjective Date: 05/11/20 Time: 10:11 Interval History: follow up for rhythm surveillance. He is concerned about his bleeding. he voices no new complaints otherwise - Review of Systems Constitutional: denies: chills, fever, malaise, sweats, weakness Respiratory: reports: shortness of breath. denies: cough, dry, wheezing Cardiology: denies: chest pain, edema, heart racing, light headedness, palpitations, passing out Gastrointestinal: denies: abdominal pain, constipation, diarrhea, nausea Musculoskeletal: reports: unstable gait. denies: falls, neck pain - Objective Allergies/Adverse Reactions: Allergies Allergy/AdvReac Type Severity Reaction Status Date / Time adhesive AdvReac Verified 04/28/20 13:42 Current Medications Acetaminophen (Tylenol) 650 mg PO Q4H PRN PRN Reason: Headache/Fever or Pain Acetaminophen (Tylenol) 500 mg PO Q6HR [facility] Last Admin: 05/11/20 04:48 Dose: 500 mg Hydrocodone Bitart/Acetaminophen ([place] 7.5/325) 1 tab PO Q4H PRN PRN Reason: Severe Pain (7-10) Last Admin: 05/11/20 09:45 Dose: 1 tab Hydrocodone Bitart/Acetaminophen ([place] 7.5/325) 2 tab PO Q4H PRN PRN Reason: Breakthrough Pain Albuterol Sulfate (Proventil Hfa) 2 puff INH Q6H PRN PRN Reason: SOB &/or Wheezing Albuterol/Ipratropium (Duoneb) 3 ml NEB Q4H PRN PRN Reason: Wheezing Last Admin: 05/11/20 07:23 Dose: 3 ml Aspirin (Ecotrin) 81 mg PO BID [facility] Last Admin: 05/11/20 09:30 Dose: 81 mg Cyanocobalamin (Vitamin B-12) 1,000 mcg PO DAILY [facility] Last Admin: 05/11/20 09:30 Dose: 1,000 mcg Cyclobenzaprine HCl (Flexeril) 5 mg PO TIDPRN PRN PRN Reason: Muscle Spasm Last Admin: 05/10/20 20:48 Dose: 5 mg Diphenhydramine HCl (Benadryl) 25 mg PO Q3H PRN PRN Reason: Itching Last Admin: 05/10/20 23:48 Dose: 25 mg Diphenhydramine HCl (Benadryl) 25 mg IM Q3H PRN PRN Reason: Itching Diphenhydramine HCl (Benadryl) 25 mg IVP Q3H PRN PRN Reason: Itching Doxycycline Hyclate (Vibramycin) 100 mg PO BID [facility] Last Admin: 05/11/20 09:30 Dose: 100 mg Dutasteride (Avodart) 0.5 mg PO DAILY [facility] Last Admin: 05/11/20 09:30 Dose: 0.5 mg Emollient Cream (Hydrocerin Cream) 0 gm TOP PRN PRN PRN Reason: Itching Fentanyl (Sublimaze) 50 mcg SLOW IVP Q1H PRN PRN Reason: Severe Breakthrough Pain Last Admin: 05/10/20 07:45 Dose: 50 mcg Ferrous Gluconate (Fergon) 324 mg PO BID [facility] Last Admin: 05/11/20 09:31 Dose: 324 mg Fluticasone Propionate (Flonase Nasal [place]) 0 gm NASAL DAILY [facility] Last Admin: 05/11/20 09:31 Dose: 1 spray Folic Acid (Folvite) 1 mg PO DAILY [facility] Last Admin: 05/11/20 09:31 Dose: 1 mg Furosemide (Lasix) 40 mg PO 0900,1400 [facility] Last Admin: 05/11/20 09:31 Dose: 40 mg Gabapentin (Neurontin) 100 mg PO BID [facility] Last Admin: 05/11/20 09:31 Dose: 100 mg Hydralazine HCl (Apresoline) 10 mg SLOW IVP Q4H PRN PRN Reason: SBP GREATER THAN 160 Vancomycin HCl 500 mg/ Sodium (Chloride) 100 mls @ 100 mls/hr IVPB .DOSE BY LEVEL [facility] Ipratropium [place] (Atrovent) 2.5 ml NEB [id number] [facility] Last Admin: 05/11/20 07:28 Dose: Not Given Iron/Minerals/Multivitamins (Theragran M) 1 tab PO DAILY [facility] Last Admin: 05/11/20 09:32 Dose: 1 tab Lidocaine (Lidoderm 5% Patch) 1 patch TD DAILY [facility] Last Admin: 05/11/20 09:32 Dose: 1 patch Miscellaneous Medication (Lidocaine Patch Removal) 1 each TOP HS [facility] Last Admin: 05/10/20 20:49 Dose: 1 each Miscellaneous Medication (Pharmacy To Dose) 1 each IVPB PRN PRN PRN Reason: Pharmacy to dose [facility] 15-20 Mometasone Furoate/Formoterol Fumar (Dulera 200 Mcg/5 Mcg Inhaler) 2 puff INH BID-RT [facility] Last Admin: 05/11/20 07:22 Dose: 2 puff Naloxone HCl (Narcan) 0.2 mg IV Q5MIN PRN PRN Reason: RR <=8 OR OBTUNDED/UNAROUSABLE Naloxone HCl (Narcan) 0.1 mg IVP Q15MIN PRN PRN Reason: URINARY RETENTION Ondansetron HCl (Zofran) 4 mg IVP Q6H PRN PRN Reason: Nausea/Vomiting Pantoprazole Sodium (Protonix) 40 mg PO DAILY [facility] Last Admin: 05/11/20 09:32 Dose: 40 mg Polyethylene Glycol (Miralax) 17 gm PO DAILY [facility] Last Admin: 05/11/20 09:32 Dose: 17 gm Prednisone (Prednisone) 20 mg PO DAILY [facility] Last Admin: 05/11/20 09:32 Dose: 20 mg Promethazine HCl (Phenergan) 12.5 mg IM Q4H PRN PRN Reason: Nausea Promethazine HCl (Phenergan Suppository) 25 mg AR Q4H PRN PRN Reason: Nausea/Vomiting Rosuvastatin Calcium (Crestor) 10 mg PO [facility] Last Admin: 05/10/20 20:49 Dose: 10 mg Saccharomyces Boulardii (Florastor) 250 mg PO [facility] Last Admin: 05/10/20 20:48 Dose: 250 mg Senna/Docusate Sodium (Senokot S) 2 tab PO BID [facility] Last Admin: 05/11/20 09:31 Dose: 2 tab Sertraline HCl (Zoloft) 50 mg PO [facility] Last Admin: 05/10/20 20:49 Dose: 50 mg Sodium Chloride (Flush - Normal Saline) 10 ml IVF PRN PRN PRN Reason: Saline Flush Tamsulosin HCl (Flomax) 0.4 mg PO DAILY [facility] Last Admin: 05/11/20 09:32 Dose: 0.4 mg Tramadol HCl (Ultram) 100 mg PO Q12H PRN PRN Reason: Moderate Pain 4-6 Last Admin: 05/09/20 20:58 Dose: 100 mg Tramadol HCl (Ultram) 50 mg PO Q12H PRN PRN Reason: Mild Pain 1-3 Vital Signs & Weight: Vital Signs Temp Pulse Resp BP Pulse Ox 05/11/20 08:05 97.3 F L 85 20 145/70 H 94 L 05/11/20 07:23 81 14 05/11/20 04:00 97.2 F L 85 20 139/67 98 05/11/20 00:17 12 Weight 199 lb I/O: I/O 05/10/20 05/11/20 05/12/20 06:59 06:59 06:59 Intake Total 1610 2400 Output Total 1875 1675 Balance -265 725 - Quality Measures Condition: Atrial Fibrillation/Flutter (hx or current) - Medication Contraindications No Anticoagulant reason: Medical contraindication (a/c anemia) - Physical Exam General: alert & oriented x3, appears well, no apparent distress, speech clear, affect appropriate HEENT: mucus membranes moist, normocephaly Neck: supple neck, no JVD/HJR, no lymphadenopathy Cardiology: regular rate and rhythm, PMI nondisplaced Lungs: no rhonchi, decreased breath sounds, wheezes Neurology: cranial nerve 2-12 intact, no lateralizing findings Abdomen: unremarkable, no pulsations/bruits Extremities: dry, strong pulses, warm, + edema B (2+ BLE) - Labs Result Diagrams: 05/11/20 04:22 05/11/20 04:22 - EKG Interpretation EKG Method: Telemetry EKG shows: Sinus rhythm - Assessment/Plan Assessment/Plan: IMPRESSION: 1. History of persistent atrial fibrillation with prior ablation, requiring Tikosyn for suppression. 2. Acute on chronic kidney injury with creatinine clearance of 16 based on recent creatinine. 3. History of gastrointestinal bleed, 4. History of preserved left ventricular ejection fraction, 60% to 65%. 5. Chronic obstructive pulmonary disease. 6. Hypertension. 7. Status post septic hip revision. 8. status post Watchman, still requiring coil closure to address 2 small leads Maintaining SR. Occasional PAT runs with abberant conduction seen on tele (05/06 ). Will watch for sustained recurrence of AF. Has a history of GIB with GI evaluation/consult last in August 2019, where they had suspicion for bleeding AVMs, + FOCB/ guiac this visit. Cannot resume anticoagulation with acute anemia ongoing. Defer to medical team discretion regarding further anemia workup. Consider repeat ANNAMARIA in the future to reassess CHERELLE, but I doubt his pulmonary status will tolerate this procedure. Last ANNAMARIA was Nov 2019 and shows 2 small michelle-Watchman leaks. Stable from EP perspective
[2020-05-11 14:49] LABS: Vancomycin, Random 20.3 ug/mL (See Comment)
[2020-05-11] MEDS: Rosuvastatin 10 MG TAB PO SCH (20:38)
[2020-05-11] MEDS: Saccharomyces boulardii 250 MG CAP PO SCH (20:38)
[2020-05-11] MEDS: Lidocaine Patch Removal TOP SCH (20:40)
[2020-05-12] MEDS: Acetaminophen 500 MG TAB PO SCH ×4 (00:07→18:00)
[2020-05-12] MEDS: Ipratropium Bromide 2.5 ml Neb NEB SCH ×4 (00:13→18:34)
[2020-05-12 04:21] LABS: Hemoglobin 6.8 g/dL (14.0-18.0); Mean Corpuscular HGB CONC 30.4 g/dL (32.0-36.0); Mean Corpuscular Hemoglobin 27.4 pg (27.0-31.0); Mean Corpuscular Volume 90.4 fL (78.0-98.0); Mean Platelet Volume 7.3 fL (7.4-10.4); Platelet Count 374 thou/uL (130-400); RBC Distribution Width 18.9 % (11.5-14.5); Red Blood Cell (RBC) Count 2.48 mill/uL (4.70-6.10); White Blood Cell (WBC) Count 11.8 thou/uL (4.8-10.8)
[2020-05-12 04:43] LABS: Anion Gap 14 mmol/L (10-20); BUN (Urea Nitrogen) 112 mg/dL (8.4-25.7); Calc. Creatinine Clearance 28 mL/min (70-130); Calcium 7.8 mg/dL (7.8-10.44); Carbon Dioxide 26 mmol/L (23-31); Chloride 101 mmol/L (98-107); Estimated GFR-MDRD 23; Glucose 88 mg/dL (83-110); Potassium 4.1 mmol/L (3.5-5.1); Sodium 137 mmol/L (136-145)
[2020-05-12] MEDS: HYDROcodone/Acetaminophen 7.5/325 mg Tablet PO PRN ×3 (05:50→21:19)
[2020-05-12] MEDS: Mometasone 200 MCG/Formoterol 5 MCG 120 PUFF INHALER INH SCH ×2 (08:12→18:41)
--- NOTE | 2020-05-12 08:28 | PDOC.HOSPP ---
- Subjective Encounter Date: 05/12/20 Encounter Time: 10:45 Subjective: Mr. Mart is a 79 y/o M. Patient seen and examined. Patient stated continued left hip pain rated as a 8 out of 10 with movement of left LE. No overnight events. Patient was seated upright in chair while receiving blood transfusion and was cooperative with interview. - Objective Vital Signs & Weight: Vital Signs (12 hours) Temp Pulse Resp BP Pulse Ox 05/12/20 08:10 85 16 05/12/20 07:28 97.8 F 84 20 126/64 94 L 05/12/20 03:55 98.5 F 79 20 155/70 H 99 05/12/20 00:13 16 05/11/20 23:35 82 149/77 H Weight Weight 199 lb 12.8 oz I&O: 05/11/20 05/12/20 05/13/20 06:59 06:59 06:59 Intake Total 2400 1160 Output Total 1675 2200 Balance 725 -1040 Result Diagrams: 05/12/20 04:02 05/12/20 04:02 Additional Labs: Microbiology 05/09/20 15:40 Stool Stool Occult Blood (ZOHAIB) - Final 05/03/20 15:03 Hip - Left Bacterial Culture - Final 05/03/20 15:03 Hip - Left Anaerobic Culture - Final Laboratory Tests 05/12/20 13:12 Vancomycin Trough 16.0 EKG Reviewed by me: Yes (Tele SR) Hospitalist ROS - Review of Systems Constitutional: denies: fever, chills, sweats, weakness, malaise, other Respiratory: reports: other (congestion in the morning). denies: shortness of breath, hemoptysis, sputum Gastrointestinal: denies: nausea, vomiting, abdominal pain, diarrhea Musculoskeletal: reports: back pain, leg pain, other ( left hip pain). denies: arm pain, hand pain - Medication Medications: Active Medications Generic Name Dose Route Start Last Admin Trade Name Freq PRN Reason Stop Dose Admin Acetaminophen 500 mg 05/10/20 18:00 05/12/20 05:51 Tylenol PO 500 mg Q6HR [facility] Administration Hydrocodone Bitart/Acetaminophen 1 tab 05/09/20 10:22 05/12/20 05:50 [place] 7.5/325 PO 1 tab Q4H PRN Administration Severe Pain (7-10) Albuterol/Ipratropium 3 ml 05/03/20 17:58 05/11/20 12:34 Duoneb NEB 3 ml Q4H PRN Administration Wheezing Aspirin 81 mg 05/03/20 21:00 05/11/20 20:38 Ecotrin PO 81 mg BID [facility] Administration Cyanocobalamin 1,000 mcg 05/10/20 09:00 05/11/20 09:30 Vitamin B-12 PO 1,000 mcg DAILY [facility] Administration Cyclobenzaprine HCl 5 mg 05/03/20 17:58 05/10/20 20:48 Flexeril PO 5 mg TIDPRN PRN Administration Muscle Spasm Diphenhydramine HCl 25 mg 05/03/20 18:00 05/10/20 23:48 Benadryl PO 25 mg Q3H PRN Administration Itching Doxycycline Hyclate 100 mg 05/04/20 21:00 05/11/20 20:37 Vibramycin PO 100 mg BID [facility] Administration Dutasteride 0.5 mg 05/04/20 09:00 05/11/20 09:30 Avodart PO 0.5 mg DAILY [facility] Administration Fentanyl 50 mcg 05/06/20 11:24 05/10/20 07:45 Sublimaze SLOW IVP 50 mcg Q1H PRN Administration Severe Breakthrough Pain Ferrous Gluconate 324 mg 05/04/20 09:00 05/11/20 20:39 Fergon PO 324 mg BID [facility] Administration Fluticasone Propionate 0 gm 05/04/20 09:00 05/11/20 09:31 Flonase Nasal [place] NASAL 1 spray DAILY [facility] Administration Folic Acid 1 mg 05/10/20 09:00 05/11/20 09:31 Folvite PO 1 mg DAILY [facility] Administration Gabapentin 100 mg 05/03/20 21:00 05/11/20 20:39 Neurontin PO 100 mg BID [facility] Administration Ipratropium [place] 2.5 ml 05/03/20 19:00 05/12/20 08:10 Atrovent NEB 2.5 ml [id number] [facility] Administration Iron/Minerals/Multivitamins 1 tab 05/04/20 09:00 05/11/20 09:32 Theragran M PO 1 tab DAILY [facility] Administration Lidocaine 1 patch 05/04/20 09:00 05/11/20 09:32 Lidoderm 5% Patch TD 1 patch DAILY [facility] Administration Miscellaneous Medication 1 each 05/04/20 21:00 05/11/20 20:40 Lidocaine Patch Removal TOP 1 each HS [facility] Administration Mometasone Furoate/Formoterol Fumar 2 puff 05/03/20 18:30 05/12/20 08:12 Dulera 200 Mcg/5 Mcg Inhaler INH 2 puff BID-RT [facility] Administration Pantoprazole Sodium 40 mg 05/11/20 21:00 05/11/20 20:38 Protonix PO 40 mg BID [facility] Administration Polyethylene Glycol 17 gm 05/04/20 09:00 05/11/20 09:32 Miralax PO 17 gm DAILY [facility] Administration Prednisone 20 mg 05/04/20 09:00 05/11/20 09:32 Prednisone PO 20 mg DAILY [facility] Administration Rosuvastatin Calcium 10 mg 05/03/20 21:00 05/11/20 20:38 Crestor PO 10 mg HS [facility] Administration Saccharomyces Boulardii 250 mg 05/04/20 21:00 05/11/20 20:38 Florastor PO 250 mg HS [facility] Administration Senna/Docusate Sodium 2 tab 05/04/20 09:00 05/11/20 20:38 Senokot S PO 2 tab BID [facility] Administration Sertraline HCl 50 mg 05/03/20 21:00 05/11/20 20:38 Zoloft PO 50 mg HS [facility] Administration Sodium Chloride 10 ml 05/09/20 09:50 05/11/20 20:39 Flush - Normal Saline IVF 10 ml PRN PRN Administration Saline Flush Tamsulosin HCl 0.4 mg 05/04/20 09:00 05/11/20 09:32 Flomax PO 0.4 mg DAILY [facility] Administration Tramadol HCl 100 mg 05/06/20 12:30 05/09/20 20:58 Ultram PO 100 mg Q12H PRN Administration Moderate Pain 4-6 - Exam General Appearance: awake alert Neck: symmetric, no JVD, no carotid bruit Heart: RRR, no murmur, no gallops, no rubs Respiratory: CTAB, no wheezes, no rales, no ronchi Gastrointestinal: soft, non-tender, normal bowel sounds, no guarding Extremities: no cyanosis Neurological: no new deficit Psychiatric: normal affect, normal behavior, A&O x 3 Hosp A/P - Plan DVT proph w/SCDs Left hip infection s/p arthroplasty - Mngt per Ortho - on Doxycycline/Vancomycin Chronic diastolic HF - compensated COPD/Chronic hypoxic resp failure on 3.5 L O2 at home NNEKA/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 - Cr improving, downward trend - Torsemide and Losartan on hold - s/p albumin - Renal USG - no obstruction -GFR is upward trending Chronic Anemia requiring blood transfusion - almost every other week (Dr Smith ) -Extensive GI w/u last year -s/p 4 units PRBC - Epoegen started today Par Afib s/p watchman -off Tikosyn due to NNEKA -not on anticoag due to anemia BPH BRAD -on CPAP Hypokalemia -corrected with replacement PLAN: Transfuse 1 unit PRBC, monitor H and H, admin furosemide 1 dose Consult GI - office called, EGD scheduled for tomorrow DC Tikosyn - I d/w with EP, monitor GFR Cont IV Vancomycin per ID - monitor Vancomycin level Cont supportive care, continue SCD for DVT prophylaxis AM labs
[2020-05-12] MEDS ORDERED: Furosemide 20 MG/2 ML VIAL IVP SCH (08:30)
[2020-05-12] MEDS: Furosemide 40 MG TAB PO SCH (09:11)
[2020-05-12] MEDS: Doxycycline 100 MG CAP PO SCH ×2 (09:22→21:10)
[2020-05-12] MEDS: Lidocaine 5% Patch TD SCH (09:22)
[2020-05-12] MEDS: Senokot S 8.6-50 MG TAB PO SCH ×2 (09:22→21:09)
[2020-05-12] MEDS: Gabapentin 100 MG CAP PO SCH ×2 (09:22→21:09)
[2020-05-12] MEDS: Cyanocobalamin (Vitamin B-12) 1,000 MCG TAB PO SCH (09:22)
[2020-05-12] MEDS: Aspirin 81 mg Enteric Coated Tablet PO SCH ×2 (09:22→21:09)
[2020-05-12] MEDS: predniSONE 20 MG TAB PO SCH (09:22)
[2020-05-12] MEDS: Multivitamin W/ Minerals 1 TAB PO SCH (09:22)
[2020-05-12] MEDS: Tamsulosin HCl 0.4 MG CAP PO SCH (09:22)
[2020-05-12] MEDS: Fluticasone Propionate Nasal Spray 16 gm Bottle NASAL SCH (09:23)
[2020-05-12] MEDS: Folic Acid 1 MG TAB PO SCH (09:23)
[2020-05-12] MEDS: Ferrous Gluconate 324 MG TAB PO SCH ×2 (09:23→21:09)
[2020-05-12] MEDS: Polyethylene Glycol 3350 17 GM Packet PO SCH (09:23)
[2020-05-12] MEDS: Dutasteride 0.5 MG CAP PO SCH (09:23)
[2020-05-12] MEDS ORDERED: Epoetin (ESRD) 20,000 UNITS/ML SC SCH (10:00)
[2020-05-12] MEDS ORDERED: EPOETIN ALFA-EPBX (ESRD) 10,000 UNIT/ML VIAL SC SCH (12:00)
--- NOTE | 2020-05-12 12:07 | PRG ---
DATE OF SERVICE: 05/12/2020 SUBJECTIVE: Patient was seen and examined at bedside and overnight events noted. Patient denies any shortness of breath or chest pain or palpitation. No history of nausea or vomiting or diarrhea or fever or chills or cramps. OBJECTIVE: GENERAL: This is a well-built male, in no apparent distress. VITAL SIGNS: Temperature 97.9. Heart rate . Respiratory rate . Blood pressure 139/63. HEENT: Atraumatic, normocephalic. Oral mucosa is moist NECK: Supple. CARDIOVASCULAR: S1, S2 heard. Rate and rhythm regular. RESPIRATORY: Clear to auscultation. GASTROINTESTINAL: Abdomen is soft. MUSCULOSKELETAL: No tenderness. No edema. DERMATOLOGIC: No skin rash. NEUROLOGIC: Alert and awake and oriented X3. No focal neurologic deficits. Moving all the extremities. PSYCHIATRIC: Mood and affect normal. LABORATORY DATA: Potassium 4.1, BUN is 112, creatinine is 2.7. ASSESSMENT AND PLAN: 1. Acute kidney injury on chronic kidney disease, stage 4, stable. 2. Anemia. We will start on Epogen. Follow with the [facility]. 3. Fluid overload. We will continue on Lasix 1 p.o. daily. 4. Cardiorenal syndrome. 5. History of hypertension. 6. Edema. Limit fluid intake. Continue on Lasix. Monitor renal function. Job ID: [id number]
[2020-05-12 13:05] VITALS: BMI 28.6
[2020-05-12] MEDS: Vancomycin HCl 500 MG in Sodium Chloride 0.9% 100 ML IVPB SCH (16:04)
--- NOTE | 2020-05-12 18:25 | PDOC.EP ---
- Subjective Date: 05/12/20 Time: 08:00 Interval History: follow up for rhythm surveillance. He continues to be concerned about his bleeding as he requires another transfusion today. he voices no new complaints otherwise - Review of Systems Constitutional: reports: weakness. denies: chills, fever, malaise Respiratory: reports: shortness of breath. denies: cough, wheezing Cardiology: denies: chest pain, edema, heart racing, passing out Gastrointestinal: reports: melena. denies: abdominal pain, nausea, vomitting - Objective Allergies/Adverse Reactions: Allergies Allergy/AdvReac Type Severity Reaction Status Date / Time adhesive AdvReac Verified 04/28/20 13:42 Current Medications Acetaminophen (Tylenol) 650 mg PO Q4H PRN PRN Reason: Headache/Fever or Pain Acetaminophen (Tylenol) 500 mg PO Q6HR [facility] Last Admin: 05/12/20 18:00 Dose: 500 mg Hydrocodone Bitart/Acetaminophen ([place] 7.5/325) 1 tab PO Q4H PRN PRN Reason: Severe Pain (7-10) Last Admin: 05/12/20 05:50 Dose: 1 tab Hydrocodone Bitart/Acetaminophen ([place] 7.5/325) 2 tab PO Q4H PRN PRN Reason: Breakthrough Pain Last Admin: 05/12/20 14:12 Dose: 2 tab Albuterol Sulfate (Proventil Hfa) 2 puff INH Q6H PRN PRN Reason: SOB &/or Wheezing Albuterol/Ipratropium (Duoneb) 3 ml NEB Q4H PRN PRN Reason: Wheezing Last Admin: 05/11/20 12:34 Dose: 3 ml Aspirin (Ecotrin) 81 mg PO BID [facility] Last Admin: 05/12/20 09:22 Dose: 81 mg Cyanocobalamin (Vitamin B-12) 1,000 mcg PO DAILY [facility] Last Admin: 05/12/20 09:22 Dose: 1,000 mcg Cyclobenzaprine HCl (Flexeril) 5 mg PO TIDPRN PRN PRN Reason: Muscle Spasm Last Admin: 05/10/20 20:48 Dose: 5 mg Diphenhydramine HCl (Benadryl) 25 mg PO Q3H PRN PRN Reason: Itching Last Admin: 05/10/20 23:48 Dose: 25 mg Diphenhydramine HCl (Benadryl) 25 mg IM Q3H PRN PRN Reason: Itching Diphenhydramine HCl (Benadryl) 25 mg IVP Q3H PRN PRN Reason: Itching Doxycycline Hyclate (Vibramycin) 100 mg PO BID [facility] Last Admin: 05/12/20 09:22 Dose: 100 mg Dutasteride (Avodart) 0.5 mg PO DAILY [facility] Last Admin: 05/12/20 09:23 Dose: 0.5 mg Emollient Cream (Hydrocerin Cream) 0 gm TOP PRN PRN PRN Reason: Itching Epoetin Ar-epbx (Retacrit) 10,000 unit SC Q7D [facility] Last Admin: 05/12/20 12:33 Dose: 10,000 unit Fentanyl (Sublimaze) 50 mcg SLOW IVP Q1H PRN PRN Reason: Severe Breakthrough Pain Last Admin: 05/10/20 07:45 Dose: 50 mcg Ferrous Gluconate (Fergon) 324 mg PO BID [facility] Last Admin: 05/12/20 09:23 Dose: 324 mg Fluticasone Propionate (Flonase Nasal [place]) 0 gm NASAL DAILY [facility] Last Admin: 05/12/20 09:23 Dose: 1 spray Folic Acid (Folvite) 1 mg PO DAILY [facility] Last Admin: 05/12/20 09:23 Dose: 1 mg Furosemide (Lasix) 40 mg PO 0900 [facility] Last Admin: 05/12/20 09:11 Dose: Not Given Gabapentin (Neurontin) 100 mg PO BID [facility] Last Admin: 05/12/20 09:22 Dose: 100 mg Hydralazine HCl (Apresoline) 10 mg SLOW IVP Q4H PRN PRN Reason: SBP GREATER THAN 160 Vancomycin HCl 500 mg/ Sodium (Chloride) 100 mls @ 100 mls/hr IVPB Q2D@1500 [facility] Last Admin: 05/12/20 16:04 Dose: 100 mls Ipratropium [place] (Atrovent) 2.5 ml NEB Q4RK-PQ [facility] Last Admin: 05/12/20 14:52 Dose: 2.5 ml Iron/Minerals/Multivitamins (Theragran M) 1 tab PO DAILY [facility] Last Admin: 05/12/20 09:22 Dose: 1 tab Lidocaine (Lidoderm 5% Patch) 1 patch TD DAILY [facility] Last Admin: 05/12/20 09:22 Dose: 1 patch Miscellaneous Medication (Lidocaine Patch Removal) 1 each TOP HS [facility] Last Admin: 05/11/20 20:40 Dose: 1 each Miscellaneous Medication (Pharmacy To Dose) 1 each IVPB PRN PRN PRN Reason: Pharmacy to dose [facility] 15-20 Mometasone Furoate/Formoterol Fumar (Dulera 200 Mcg/5 Mcg Inhaler) 2 puff INH BID-RT [facility] Last Admin: 05/12/20 08:12 Dose: 2 puff Naloxone HCl (Narcan) 0.2 mg IV Q5MIN PRN PRN Reason: RR <=8 OR OBTUNDED/UNAROUSABLE Naloxone HCl (Narcan) 0.1 mg IVP Q15MIN PRN PRN Reason: URINARY RETENTION Ondansetron HCl (Zofran) 4 mg IVP Q6H PRN PRN Reason: Nausea/Vomiting Pantoprazole Sodium (Protonix) 40 mg PO BID [facility] Last Admin: 05/12/20 09:23 Dose: 40 mg Polyethylene Glycol (Miralax) 17 gm PO DAILY [facility] Last Admin: 05/12/20 09:23 Dose: Not Given Prednisone (Prednisone) 20 mg PO DAILY [facility] Last Admin: 05/12/20 09:22 Dose: 20 mg Promethazine HCl (Phenergan) 12.5 mg IM Q4H PRN PRN Reason: Nausea Promethazine HCl (Phenergan Suppository) 25 mg PA Q4H PRN PRN Reason: Nausea/Vomiting Rosuvastatin Calcium (Crestor) 10 mg PO [facility] Last Admin: 05/11/20 20:38 Dose: 10 mg Saccharomyces Boulardii (Florastor) 250 mg PO [facility] Last Admin: 05/11/20 20:38 Dose: 250 mg Senna/Docusate Sodium (Senokot S) 2 tab PO BID [facility] Last Admin: 05/12/20 09:22 Dose: 2 tab Sertraline HCl (Zoloft) 50 mg PO [facility] Last Admin: 05/11/20 20:38 Dose: 50 mg Sodium Chloride (Flush - Normal Saline) 10 ml IVF PRN PRN PRN Reason: Saline Flush Last Admin: 05/11/20 20:39 Dose: 10 ml Sodium Chloride (Flush - Normal Saline) 10 ml IVF PRN PRN PRN Reason: Saline Flush Tamsulosin HCl (Flomax) 0.4 mg PO DAILY [facility] Last Admin: 05/12/20 09:22 Dose: 0.4 mg Tramadol HCl (Ultram) 100 mg PO Q12H PRN PRN Reason: Moderate Pain 4-6 Last Admin: 05/09/20 20:58 Dose: 100 mg Tramadol HCl (Ultram) 50 mg PO Q12H PRN PRN Reason: Mild Pain 1-3 Vital Signs & Weight: Vital Signs Temp Pulse Pulse Resp BP BP BP 05/12/20 15:54 97.6 F 86 20 137/71 05/12/20 14:52 83 16 05/12/20 13:10 97.5 F L 89 20 120/59 L 05/12/20 12:31 97.5 F L 89 18 131/78 05/12/20 10:40 98 F 82 20 139/63 05/12/20 10:15 97.9 F 85 20 138/65 05/12/20 08:10 85 16 05/12/20 07:30 05/12/20 07:28 97.8 F 84 20 126/64 Pulse Ox 05/12/20 15:54 94 L 05/12/20 14:52 05/12/20 13:10 97 05/12/20 12:31 94 L 05/12/20 10:40 97 05/12/20 10:15 96 05/12/20 08:10 05/12/20 07:30 94 L 05/12/20 07:28 94 L Admit Weight 193 lb Weight 199 lb 12.8 oz I/O: I/O 05/11/20 05/12/20 05/13/20 06:59 06:59 06:59 Intake Total 2400 1160 350 Output Total 1675 2200 Balance 725 -1040 350 - Quality Measures Condition: Atrial Fibrillation/Flutter (hx or current) - Medication Contraindications No Anticoagulant reason: Medical contraindication (a/c anemia) - Physical Exam General: alert & oriented x3, appears well, no apparent distress, speech clear, affect appropriate HEENT: mucus membranes moist, normocephaly Neck: supple neck, midline trachea, no JVD/HJR, no lymphadenopathy Cardiology: regular rate and rhythm, no murmur, PMI nondisplaced Lungs: decreased breath sounds, wheezes. negative: no rales, no rhonchi Neurology: cranial nerve 2-12 intact, grossly intact, no lateralizing findings Abdomen: unremarkable, active bowel sounds, no pulsations/bruits Extremities: dry, strong pulses, warm, + edema B - Labs Result Diagrams: 05/12/20 04:02 05/12/20 04:02 - EKG Interpretation EKG Method: Telemetry EKG shows: Sinus rhythm - Assessment/Plan Assessment/Plan: IMPRESSION: 1. History of persistent atrial fibrillation with prior ablation, requiring Tikosyn for suppression. 2. Acute on chronic kidney injury with creatinine clearance of 16 based on recent creatinine. 3. History of gastrointestinal bleed, 4. History of preserved left ventricular ejection fraction, 60% to 65%. 5. Chronic obstructive pulmonary disease. 6. Hypertension. 7. Status post septic hip revision. 8. status post Watchman, still requiring coil closure to address 2 small leads Maintaining SR. Occasional PAT runs with abberant conduction seen on tele (05/06 ). Will watch for sustained recurrence of AF. Has a history of GIB with GI evaluation/consult last in August 2019, where they had suspicion for bleeding AVMs, + FOCB/ guiac this visit. Cannot resume anticoagulation with acute anemia ongoing. Defer to medical team discretion regarding further anemia workup. Consider repeat ANNAMARIA in the future to reassess CHERELLE, but I doubt his pulmonary status will tolerate this procedure. Last ANNAMARIA was Nov 2019 and shows 2 small michelle-Watchman leaks. Overall, he remains stable from EP perspective. No change in EP plan unless AF returns. Feel free to contact me if further input is desired. I would prefer he remain on a monitored floor while hospitalized. EP signing off.
[2020-05-12] MEDS: Saccharomyces boulardii 250 MG CAP PO SCH (21:09)
[2020-05-12] MEDS: Rosuvastatin 10 MG TAB PO SCH (21:10)
[2020-05-12] MEDS: Lidocaine Patch Removal TOP SCH (21:14)
--- NOTE | 2020-05-12 21:30 | CON ---
DATE OF CONSULTATION: 05/12/2020 REASON FOR CONSULT: Request for upper endoscopy for possible bleeding. HISTORY OF PRESENT ILLNESS: Mr. Mart is a pleasant 79-year-old gentleman who is currently taken care of by my partner, Dr. Stanley Odom. I have seen him previously here in the hospital under similar circumstances. He has a history of chronic anemia, which is multifactorial related to renal failure. He is getting Epogen in the outpatient clinic setting. 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 He had to stop anticoagulation for arrhythmias secondary to the AVMs in his GI tract. I think he was felt not to be a candidate for anticoagulation any longer. 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 He has been here since that admission, followed by Infectious Disease, Cardiology, and Internal Medicine. His hemoglobin has been chronically low running between 8 to 10 since July of 2018, it was 7.3 in March this year. On admission here, it was 6.8, today it is 6.8. He has received 5 units of blood this month, 2 on the and when he was first admitted then once about every day on the , and respectively. Prior to that this year, he had been transfused in December, January, February and in March, a total of 9 units of blood. In talking with his language and literature division chair, they are giving him Epogen shots there. Here, he has been heme-positive. Nurse notes his stool is dark, may be or may not be black. He denies any nausea, vomiting. He has had no hematochezia. He has been on no blood thinners other than aspirin daily. His previous endoscopies have included an EGD in 01/2019 at which time, he had a single AVM in the gastric body that was nonbleeding, but was treated. He had upper and lower endoscopies in 04/2018, which time he had 2 diminutive sigmoid polyps removed, sigmoid diverticulosis, small internal hemorrhoids, and short-segment Parikh's esophagus. He reports his breathing is at his baseline. He does use oxygen for COPD. Presently, he is without any other complaints. PAST MEDICAL HISTORY: Atrial fibrillation, previous Watchman procedure, CHF, diastolic dysfunction, hypertension, hyperlipidemia, COPD, obstructive sleep apnea, anemia of chronic disease, chronic renal insufficiency, iron deficiency, history of GI AV malformations, history of BPH, home oxygen requirements. PAST SURGICAL HISTORY: 1. Hip replacement and infection. 2. Cardioversion in October 2018. 3. Chest tube for spontaneous pneumothorax in July of 2018. 4. Left knee surgery. MEDICATIONS: 1. Tylenol. 2. Proventil. 3. DuoNeb. 4. Aspirin 81 mg daily. 5. B12 1000 mg daily. 6. Flexeril 5 mg t.i.d. p.r.n. 7. Benadryl p.r.n. 8. Vibramycin 100 mg p.o. b.i.d. 9. Avodart. 10. Epogen 1 dose, 62198 units q.7 days, as an outpatient he takes 76891 units a week. 11. Fentanyl 50 mcg p.r.n. q.1 hour. 12. Ferrous gluconate b.i.d. 324 mg. 13. Flonase. 14. Folvite. 15. Lasix 40 mg daily. 16. Neurontin 100 mg daily. 17. [place] p.r.n. 18. Lidoderm patch. 19. p.r.n. 20. Protonix 40 mg t.i.d. 21. MiraLAX p.r.n. 22. Prednisone 20 mg daily. 23. Zoloft. 24. Flomax. 25. Ultram. 26. Vancomycin 500 mg IV q.2 days. REVIEW OF SYSTEMS: Chronic shortness of breath. Chronic dyspnea on exertion. Wheezing, asthma, cough, minimal. No chest pain. Dark stools. No diarrhea. No hematochezia or rectal bleeding. No nausea or vomiting. No dysphagia, odynophagia, poor skin healing, easy bruisability. FAMILY HISTORY: Negative, noncontributory. PHYSICAL EXAMINATION: VITAL SIGNS: Blood pressure is 120/59, temperature 97, pulse 89. GENERAL: He is resting in bed. HEENT: He has nasal cannula. He has ecchymoses over the skin. LUNGS: Clear. HEART: Regular without clicks or murmurs. ABDOMEN: Soft and nontender. There is no palpable hepatosplenomegaly. EXTREMITIES: No clubbing, cyanosis, or edema. LABORATORY DATA: Hemoglobin 6.8 today, received a unit of blood this morning. White count 11.8, platelet count 374. INR 1.1 on 01/20. Sodium 137, potassium 4, chloride 101, bicarb 29, BUN and creatinine 112 and 2.72. BUN was 91 on 04/28 when he was admitted, at this time it is 119. Creatinine baseline is 1.7 to 1.5. It was 3.8 on admission at this time. Iron was 79 on 04/05/2020. TIBC 229, ferritin 250 on 04/08, albumin 3.2 on admission, globulin 3.1, AST and ALT 13 and 10, and bilirubin 0.4. Microbiology stool occult blood by FOBT is positive. ASSESSMENT: 1. Chronic anemia multifactorial with patient being on Epogen 40,000 units weekly in the outpatient setting at Hematology office. He has not received this in over 2 weeks. He does have heme-positive stool. He has a known history of arteriovenous malformations and this has been bad enough that he had a stop all anticoagulation in the past. He is not a candidate for anticoagulation. These are not going to go away . They exist throughout his intestine. 2. Acute drop in hemoglobin apparently this admission with increased transfusion requirements, likely related to not getting his Epogen, his underlying infection, hospitalization, and blood draws in light of heme-positive stool and repetitive request from primary service for upper endoscopy. We will see, if we get that done in the next 24 to 48 hours. He will have to have COVID testing first depending on his respiratory status today. He comes for endoscopy, it may be canceled by pulmonology, if there is not evidence of acute hemorrhage and his respiratory status is felt to be a contraindication to sedation. We will follow along with you. I have discussed this case with the patient's language and literature division chair, supervisor cell room and primary physician here in the hospital. Job ID: [id number]
[2020-05-13] MEDS: Ipratropium Bromide 2.5 ml Neb NEB SCH ×4 (00:41→19:03)
[2020-05-13] MEDS: Acetaminophen 500 MG TAB PO SCH ×4 (00:52→17:00)
[2020-05-13 04:46] LABS: Hemoglobin 7.7 g/dL (14.0-18.0); Mean Corpuscular HGB CONC 29.9 g/dL (32.0-36.0); Mean Corpuscular Hemoglobin 27.7 pg (27.0-31.0); Mean Corpuscular Volume 92.6 fL (78.0-98.0); Mean Platelet Volume 7.7 fL (7.4-10.4); Platelet Count 393 thou/uL (130-400); RBC Distribution Width 18.3 % (11.5-14.5); White Blood Cell (WBC) Count 10.6 thou/uL (4.8-10.8)
[2020-05-13 05:01] LABS: Iron 32 ug/dL (65-175); Iron Binding Capacity, Total 219 mcg/dL (261-462)
[2020-05-13 05:03] LABS: Anion Gap 13 mmol/L (10-20); BUN (Urea Nitrogen) 94 mg/dL (8.4-25.7); Calc. Creatinine Clearance 31 mL/min (70-130); Calcium 8.1 mg/dL (7.8-10.44); Carbon Dioxide 25 mmol/L (23-31); Chloride 100 mmol/L (98-107); Estimated GFR-MDRD 26; Glucose 103 mg/dL (83-110); Potassium 4.1 mmol/L (3.5-5.1); Sodium 134 mmol/L (136-145)
[2020-05-13] MEDS: Mometasone 200 MCG/Formoterol 5 MCG 120 PUFF INHALER INH SCH ×2 (07:10→19:05)
[2020-05-13] MEDS ORDERED: PROPOFOL 200 MG/20 ML VIAL ONE (10:23)
--- NOTE | 2020-05-13 10:26 | PDOC.HOSPP ---
- Subjective Encounter Date: 05/13/20 Encounter Time: 12:30 Subjective: Patient seen and examined for med mngt. s/p EGD. No new complaints. No overnight events - Objective Vital Signs & Weight: Vital Signs (12 hours) Temp Pulse Resp BP Pulse Ox 05/13/20 07:27 96.3 F L 83 14 148/70 H 97 05/13/20 07:10 75 16 05/13/20 03:32 97.7 F 86 18 159/72 H 98 05/13/20 00:41 16 Weight Admit Weight 193 lb Weight 197 lb 12.8 oz I&O: 05/12/20 05/13/20 05/14/20 06:59 06:59 06:59 Intake Total 1160 1440 Output Total 2200 1950 Balance -1040 -510 Result Diagrams: 05/13/20 04:25 05/13/20 04:25 EKG Reviewed by me: Yes (Tele SR) Hospitalist ROS - Review of Systems Respiratory: denies: cough, dry, shortness of breath, hemoptysis, SOB with excertion, pleuritic pain, sputum, wheezing, other Cardiovascular: denies: chest pain, palpitations, orthopnea, paroxysmal noc. dyspnea, edema, light headedness, other - Medication Medications: Active Medications Generic Name Dose Route Start Last Admin Trade Name Freq PRN Reason Stop Dose Admin Acetaminophen 500 mg 05/10/20 18:00 05/13/20 05:57 Tylenol PO 500 mg Q6HR SHORTY Administration Hydrocodone Bitart/Acetaminophen 1 tab 05/09/20 10:22 05/12/20 05:50 [place] 7.5/325 PO 1 tab Q4H PRN Administration Severe Pain (7-10) Hydrocodone Bitart/Acetaminophen 2 tab 05/09/20 10:22 05/12/20 21:19 [place] 7.5/325 PO 2 tab Q4H PRN Administration Breakthrough Pain Albuterol/Ipratropium 3 ml 05/03/20 17:58 05/11/20 12:34 Duoneb NEB 3 ml Q4H PRN Administration Wheezing Aspirin 81 mg 05/03/20 21:00 05/12/20 21:09 Ecotrin PO 81 mg BID SHORTY Administration Cyanocobalamin 1,000 mcg 05/10/20 09:00 05/12/20 09:22 Vitamin B-12 PO 1,000 mcg DAILY SHORTY Administration Cyclobenzaprine HCl 5 mg 05/03/20 17:58 05/10/20 20:48 Flexeril PO 5 mg TIDPRN PRN Administration Muscle Spasm Diphenhydramine HCl 25 mg 05/03/20 18:00 05/10/20 23:48 Benadryl PO 25 mg Q3H PRN Administration Itching Doxycycline Hyclate 100 mg 05/04/20 21:00 05/12/20 21:10 Vibramycin PO 100 mg BID SHORTY Administration Dutasteride 0.5 mg 05/04/20 09:00 05/12/20 09:23 Avodart PO 0.5 mg DAILY SHORTY Administration Epoetin Ar-epbx 10,000 unit 05/12/20 12:00 05/12/20 12:33 Retacrit SC 10,000 unit Q7D SHORTY Administration Fentanyl 50 mcg 05/06/20 11:24 05/10/20 07:45 Sublimaze SLOW IVP 50 mcg Q1H PRN Administration Severe Breakthrough Pain Ferrous Gluconate 324 mg 05/04/20 09:00 05/12/20 21:09 Fergon PO 324 mg BID SHORTY Administration Fluticasone Propionate 0 gm 05/04/20 09:00 05/12/20 09:23 Flonase Nasal [place] NASAL 1 spray DAILY SHORTY Administration Folic Acid 1 mg 05/10/20 09:00 05/12/20 09:23 Folvite PO 1 mg DAILY SHORTY Administration Furosemide 40 mg 05/12/20 09:00 05/12/20 09:11 Lasix PO Not Given 09 [facility] Gabapentin 100 mg 05/03/20 21:00 05/12/20 21:09 Neurontin PO 100 mg BID SHORTY Administration Vancomycin HCl 500 mg/ Sodium 100 mls @ 100 mls/hr 05/12/20 15:00 05/12/20 16 :04 Chloride IVPB 100 mls Q2D@1500 SHORTY Administration Ipratropium [place] 2.5 ml 05/03/20 19:00 05/13/20 07:10 Atrovent NEB 2.5 ml [id number] SHORTY Administration Iron/Minerals/Multivitamins 1 tab 05/04/20 09:00 05/12/20 09:22 Theragran M PO 1 tab DAILY SHORTY Administration Lidocaine 1 patch 05/04/20 09:00 05/12/20 09:22 Lidoderm 5% Patch TD 1 patch DAILY SHORTY Administration Miscellaneous Medication 1 each 05/04/20 21:00 05/12/20 21:14 Lidocaine Patch Removal TOP 1 each HS SHORTY Administration Mometasone Furoate/Formoterol Fumar 2 puff 05/03/20 18:30 05/13/20 07:10 Dulera 200 Mcg/5 Mcg Inhaler INH 2 puff BID-RT SHORTY Administration Pantoprazole Sodium 40 mg 05/11/20 21:00 05/12/20 21:09 Protonix PO 40 mg BID SHORTY Administration Polyethylene Glycol 17 gm 05/04/20 09:00 05/12/20 09:23 Miralax PO Not Given DAILY SHORTY Prednisone 20 mg 05/04/20 09:00 05/12/20 09:22 Prednisone PO 20 mg DAILY SHORTY Administration Rosuvastatin Calcium 10 mg 05/03/20 21:00 05/12/20 21:10 Crestor PO 10 mg HS SHORTY Administration Saccharomyces Boulardii 250 mg 05/04/20 21:00 05/12/20 21:09 Florastor PO 250 mg HS SHORTY Administration Senna/Docusate Sodium 2 tab 05/04/20 09:00 05/12/20 21:09 Senokot S PO 2 tab BID SHORTY Administration Sertraline HCl 50 mg 05/03/20 21:00 05/12/20 21:09 Zoloft PO 50 mg HS SHORTY Administration Sodium Chloride 10 ml 05/09/20 09:50 05/11/20 20:39 Flush - Normal Saline IVF 10 ml PRN PRN Administration Saline Flush Tamsulosin HCl 0.4 mg 05/04/20 09:00 05/12/20 09:22 Flomax PO 0.4 mg DAILY SHORTY Administration Tramadol HCl 100 mg 05/06/20 12:30 05/09/20 20:58 Ultram PO 100 mg Q12H PRN Administration Moderate Pain 4-6 - Exam General Appearance: NAD Neck: supple, no JVD Heart: RRR, no gallops Respiratory: no wheezes, normal chest expansion, rhonchi Gastrointestinal: soft, normal bowel sounds, no guarding, no rigidity Extremities: no cyanosis Hosp A/P - Plan Left hip infection s/p arthroplasty - Mngt per Ortho - on Doxycycline/Vancomycin Chronic diastolic HF - compensated COPD/Chronic hypoxic resp failure on 3.5 L O2 at home NNEKA/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 - Cr improving, downward trend - Torsemide and Losartan on hold - s/p albumin - Renal USG - no obstruction -GFR is upward trending Chronic Anemia requiring blood transfusion - almost every other week (Dr Smith ) -s/p EGD -s/p 5 units PRBC -PPI changed to IV - Epoegen started Par Afib s/p watchman -off Tikosyn per EP -not on anticoag due to anemia BPH BRAD -on CPAP Hypokalemia -corrected PLAN: s/p EGD today - nonbleeding AVMs Monitor HH Renal function improving Transfer to Inpt Rehab if ok with consultants Cont current meds Cont IV Vancomycin per ID - monitor Vancomycin level Cont supportive care, continue SCD for DVT prophylaxis AM labs
[2020-05-13] MEDS ORDERED: Iron, Sodium Ferric Gluconate 250 MG in Sodium Chloride 0.9% 100 ML IVPB SCH (11:08)
--- NOTE | 2020-05-13 11:09 | PRG ---
DATE OF SERVICE: 05/11/2020 SUBJECTIVE: Patient was seen and examined at bedside and overnight events noted. Patient denies any shortness of breath or chest pain or palpitation. No history of nausea or vomiting or diarrhea or fever or chills or cramps. OBJECTIVE: GENERAL: This is an elderly male, in no apparent distress. VITAL SIGNS: Temperature 97.3. Pulse 85. HEENT: Atraumatic, normocephalic. Oral mucosa is moist. NECK: Supple. CARDIOVASCULAR: S1, S2 heard. Rate and rhythm regular. RESPIRATORY: Clear to auscultation. GASTROINTESTINAL: Abdomen is soft. MUSCULOSKELETAL: No tenderness. No edema. DERMATOLOGIC: No skin rash. NEUROLOGIC: Alert and awake and oriented x3. No focal neurologic deficits. Moving all the extremities. PSYCHIATRIC: Mood and affect normal. LABORATORY DATA: Potassium 3.9, BUN is 123, creatinine is 2.9. ASSESSMENT AND PLAN: 1. Acute kidney injury on chronic kidney disease, stage 4, stable labs. Baseline creatinine is around 2 to 2.7. 2. Edema. We will continue on Lasix 1 p.o. daily. 3. Cardiorenal syndrome. 4. History of hypertension. 5. Labs are stable. Avoid nephrotoxins. We will follow. Job ID: [id number]
[2020-05-13] MEDS: Gabapentin 100 MG CAP PO SCH ×2 (11:31→21:02)
[2020-05-13] MEDS: Aspirin 81 mg Enteric Coated Tablet PO SCH ×2 (11:31→21:02)
[2020-05-13] MEDS: Multivitamin W/ Minerals 1 TAB PO SCH (11:32)
[2020-05-13] MEDS: Polyethylene Glycol 3350 17 GM Packet PO SCH (11:32)
[2020-05-13] MEDS: Furosemide 40 MG TAB PO SCH (11:33)
[2020-05-13] MEDS: Cyanocobalamin (Vitamin B-12) 1,000 MCG TAB PO SCH (11:34)
[2020-05-13] MEDS: Doxycycline 100 MG CAP PO SCH ×2 (11:34→21:02)
[2020-05-13] MEDS: Senokot S 8.6-50 MG TAB PO SCH ×2 (11:34→21:01)
[2020-05-13] MEDS: Tamsulosin HCl 0.4 MG CAP PO SCH (11:35)
[2020-05-13] MEDS: Fluticasone Propionate Nasal Spray 16 gm Bottle NASAL SCH (11:35)
[2020-05-13] MEDS: Dutasteride 0.5 MG CAP PO SCH (11:35)
[2020-05-13] MEDS: Folic Acid 1 MG TAB PO SCH (11:35)
[2020-05-13] MEDS: Lidocaine 5% Patch TD SCH (11:35)
[2020-05-13] MEDS: predniSONE 20 MG TAB PO SCH (11:35)
[2020-05-13 11:45] LABS: SARS-CoV-2 MS2 Positive; SARS-CoV-2 N Gene Negative; SARS-CoV-2 S Gene Negative; SARS-CoV-2 by NAA Not Detected (NotDetected); SARS-CoV-2 orf1ab Negative
[2020-05-13] MEDS: Ferrous Gluconate 324 MG TAB PO SCH (11:46)
--- NOTE | 2020-05-13 12:04 | PRG ---
DATE OF SERVICE: 05/13/2020 SUBJECTIVE: Patient was seen and examined at bedside and overnight events noted. Patient denies any shortness of breath or chest pain or palpitation. No history of nausea or vomiting or diarrhea or fever or chills or cramps. OBJECTIVE: GENERAL: This is well-built male, in no apparent distress VITAL SIGNS: Temperature 96.3. Pulse 83. Respiratory rate 14. Blood pressure 148/70. HEENT: Atraumatic, normocephalic. Oral mucosa is moist. NECK: Supple. CARDIOVASCULAR: S1, S2 heard. Rate and rhythm regular. RESPIRATORY: Clear to auscultation. GASTROINTESTINAL: Abdomen is soft. MUSCULOSKELETAL: No tenderness. No edema. DERMATOLOGIC: No skin rash. NEUROLOGIC: Alert and awake and oriented x3. No focal neurologic deficits. Moving all the extremities. PSYCHIATRIC: Mood and affect normal. LABORATORY DATA: Potassium 4.1, BUN is 94, creatinine is 2.4. ASSESSMENT AND PLAN: 1. Acute kidney injury on chronic kidney stage 4. Labs are getting better. 2. Anemia, on Epogen. 3. Fluid overload with cardiorenal syndrome. Continue on Lasix p.o. daily. 4. History of hypertension. 5. Edema, stable. 6. Renal function is getting better. Continue iron supplements. Continue Epogen. Job ID: [id number]
--- NOTE | 2020-05-13 15:06 | OP ---
DATE OF PROCEDURE: 05/13/2020 PROCEDURES PERFORMED: Esophagogastroduodenoscopy, biopsy, and cautery. PREPROCEDURE DIAGNOSES: 1. Chronic history of anemia, multifactorial, with poor synthetic function, on Epogen; history of some small AVMs in the past with heme-positive stool this admission. 2. Iron studies consistent with anemia of chronic disease with a low iron of 32, TIBC low at 219, saturation low at 15, and ferritin 57. 3. History of a leaking Watchman in his atria, this may be actually leading to some component of hemolysis as well. 4. Prior history of esophagogastroduodenoscopy with small nonbleeding AVM in 01/2019, cauterized. 5. Prior history of colonoscopy in 04/2018 with a diminutive polyp. No other lesions. No AVM seen. POSTPROCEDURE DIAGNOSES: 1. Normal esophagus. 2. Small erosion in the antrum with red spots, nonbleeding, cauterized. Three red spots, two in the proximal body, one in the midbody, nonbleeding, cauterized. 3. Mild nodular gastritis, biopsied. 4. I see no findings that would account for transfusion requirement of 1 unit of blood every other day on this endoscopy. RECOMMENDATIONS: 1. Stop NSAIDs. 2. Stop aspirin if this is acceptable to Cardiology, we will defer to them. 3. Change Protonix to 40 mg once daily IV. 4. Consider the possibility of hemolysis related to his leaky Watchman device. 5. Give him one dose of IV iron and stop giving iron daily as it is confusing the issue whether he is having melena, which I do not think he is. 6. If there are concerns for ongoing bleeding, we can proceed with a colonoscopy, but this is a high risk procedure for him in light of his COPD and oxygen requirements. ANESTHESIA: TIVA. PROCEDURE IN DETAIL: After the patient was informed of the risks, benefits, and possible complications including perforation, bleeding, reaction to medication, and aspiration, informed consent was obtained, Anesthesia did use topical lidocaine as they did not want to give him much sedation, they worried about his respiratory status. The endoscope was advanced through the esophagus, stomach, into second and third portions of the duodenum and slowly removed. In the duodenum, second and third portions, and bulb, there were no lesions seen except for one small red spot that was cauterized, it was nonbleeding. In the antrum, there was a small ulcer, 5 mm in size and some other small erosions with some red spots that were cauterized, but these did not seem to be bleeding lesions. Retroflexed views revealed some small AVMs, nonbleeding in the proximal stomach, which were cauterized. None of these bled when cauterized. There was nodular gastritis in the antrum, which was biopsied. Stomach was fully distended, was normal in forward and retroflexed views. Otherwise, the esophagus was normal. The scope was removed. The patient tolerated the procedure well. No complications. Job ID: [id number]
[2020-05-13] MEDS: Rosuvastatin 10 MG TAB PO SCH (21:01)
[2020-05-13] MEDS: Saccharomyces boulardii 250 MG CAP PO SCH (21:02)
[2020-05-13] MEDS: Lidocaine Patch Removal TOP SCH (21:02)
[2020-05-14] MEDS: Acetaminophen 500 MG TAB PO SCH ×5 (00:46→20:39)
[2020-05-14] MEDS: Ipratropium Bromide 2.5 ml Neb NEB SCH ×4 (01:13→18:15)
[2020-05-14 04:48] LABS: Hemoglobin 7.7 g/dL (14.0-18.0); Mean Corpuscular HGB CONC 30.3 g/dL (32.0-36.0); Mean Corpuscular Hemoglobin 27.8 pg (27.0-31.0); Mean Corpuscular Volume 91.7 fL (78.0-98.0); Mean Platelet Volume 7.6 fL (7.4-10.4); Platelet Count 345 thou/uL (130-400); RBC Distribution Width 17.8 % (11.5-14.5); Red Blood Cell (RBC) Count 2.76 mill/uL (4.70-6.10)
[2020-05-14 05:08] LABS: Anion Gap 13 mmol/L (10-20); BUN (Urea Nitrogen) 83 mg/dL (8.4-25.7); Calc. Creatinine Clearance 33 mL/min (70-130); Calcium 7.9 mg/dL (7.8-10.44); Carbon Dioxide 26 mmol/L (23-31); Chloride 102 mmol/L (98-107); Estimated GFR-MDRD 28; Glucose 103 mg/dL (83-110); Potassium 3.9 mmol/L (3.5-5.1); Sodium 137 mmol/L (136-145)
[2020-05-14] MEDS: Mometasone 200 MCG/Formoterol 5 MCG 120 PUFF INHALER INH SCH ×2 (07:16→18:18)
--- NOTE | 2020-05-14 07:21 | PDOC.HOSPP ---
- Subjective Encounter Date: 05/14/20 Encounter Time: 08:45 Subjective: Patient seen and examined for medical management following EGD post-op day 1 and left hip hemiarthroplasty post-op day 11. Patient complains of pain with landaverde catheter overnight that resolved spontaneously. Patient feeling better. - Objective Vital Signs & Weight: Vital Signs (12 hours) Temp Pulse Resp BP BP Pulse Ox 05/14/20 07:11 97.8 F 73 17 155/73 H 94 L 05/14/20 07:07 79 19 05/14/20 04:07 97.5 F L 78 18 147/77 H 99 05/13/20 19:30 97.6 F 93 20 131/60 94 L Weight Admit Weight 193 lb Weight 200 lb 8 oz I&O: 05/13/20 05/14/20 05/15/20 06:59 06:59 06:59 Intake Total 1440 1065 Output Total 1950 1800 Balance -510 -805 Result Diagrams: 05/14/20 04:37 05/14/20 04:37 EKG Reviewed by me: Yes (Tele SR) Hospitalist ROS - Review of Systems Respiratory: denies: cough, dry, shortness of breath, hemoptysis, SOB with excertion, pleuritic pain, sputum, wheezing, other Cardiovascular: denies: chest pain, palpitations, orthopnea, paroxysmal noc. dyspnea, edema, light headedness, other All other systems reviewed; all pertinent +/- noted in HPI/Subj - Medication Medications: Active Medications Generic Name Dose Route Start Last Admin Trade Name Freq PRN Reason Stop Dose Admin Acetaminophen 500 mg 05/10/20 18:00 05/14/20 06:33 Tylenol PO 500 mg Q6HR SHORTY Administration Hydrocodone Bitart/Acetaminophen 1 tab 05/09/20 10:22 05/12/20 05:50 [place] 7.5/325 PO 1 tab Q4H PRN Administration Severe Pain (7-10) Hydrocodone Bitart/Acetaminophen 2 tab 05/09/20 10:22 05/12/20 21:19 [place] 7.5/325 PO 2 tab Q4H PRN Administration Breakthrough Pain Albuterol/Ipratropium 3 ml 05/03/20 17:58 05/13/20 19:10 Duoneb NEB 3 ml Q4H PRN Administration Wheezing Aspirin 81 mg 05/03/20 21:00 05/13/20 21:02 Ecotrin PO 81 mg BID SHORTY Administration Cyanocobalamin 1,000 mcg 05/10/20 09:00 05/13/20 11:34 Vitamin B-12 PO 1,000 mcg DAILY SHORTY Administration Cyclobenzaprine HCl 5 mg 05/03/20 17:58 05/10/20 20:48 Flexeril PO 5 mg TIDPRN PRN Administration Muscle Spasm Diphenhydramine HCl 25 mg 05/03/20 18:00 05/10/20 23:48 Benadryl PO 25 mg Q3H PRN Administration Itching Doxycycline Hyclate 100 mg 05/04/20 21:00 05/13/20 21:02 Vibramycin PO 100 mg BID SHORTY Administration Dutasteride 0.5 mg 05/04/20 09:00 05/13/20 11:35 Avodart PO 0.5 mg DAILY SHORTY Administration Epoetin Ar-epbx 10,000 unit 05/12/20 12:00 05/12/20 12:33 Retacrit SC 10,000 unit Q7D SHORTY Administration Fentanyl 50 mcg 05/06/20 11:24 05/10/20 07:45 Sublimaze SLOW IVP 50 mcg Q1H PRN Administration Severe Breakthrough Pain Fluticasone Propionate 0 gm 05/04/20 09:00 05/13/20 11:35 Flonase Nasal [place] NASAL 1 spray DAILY SHORTY Administration Folic Acid 1 mg 05/10/20 09:00 05/13/20 11:35 Folvite PO 1 mg DAILY SHORTY Administration Furosemide 40 mg 05/12/20 09:00 05/13/20 11:33 Lasix PO 40 mg 0900 SHORTY Administration Gabapentin 100 mg 05/03/20 21:00 05/13/20 21:02 Neurontin PO 100 mg BID SHORTY Administration Vancomycin HCl 500 mg/ Sodium 100 mls @ 100 mls/hr 05/12/20 15:00 05/12/20 16 :04 Chloride IVPB 100 mls Q2D@1500 SHORTY Administration Ipratropium [place] 2.5 ml 05/03/20 19:00 05/14/20 07:07 Atrovent NEB 2.5 ml [id number] SHORTY Administration Iron/Minerals/Multivitamins 1 tab 05/04/20 09:00 05/13/20 11:32 Theragran M PO 1 tab DAILY SHORTY Administration Lidocaine 1 patch 05/04/20 09:00 05/13/20 11:35 Lidoderm 5% Patch TD 1 patch DAILY SHORTY Administration Miscellaneous Medication 1 each 05/04/20 21:00 05/13/20 21:02 Lidocaine Patch Removal TOP 1 each HS SHORTY Administration Mometasone Furoate/Formoterol Fumar 2 puff 05/03/20 18:30 05/14/20 07:16 Dulera 200 Mcg/5 Mcg Inhaler INH 2 puff BID-RT SHORTY Administration Polyethylene Glycol 17 gm 05/04/20 09:00 05/13/20 11:32 Miralax PO 17 gm DAILY SHORTY Administration Prednisone 20 mg 05/04/20 09:00 05/13/20 11:35 Prednisone PO 20 mg DAILY SHORTY Administration Rosuvastatin Calcium 10 mg 05/03/20 21:00 05/13/20 21:01 Crestor PO 10 mg HS SHORTY Administration Saccharomyces Boulardii 250 mg 05/04/20 21:00 05/13/20 21:02 Florastor PO 250 mg HS SHORTY Administration Senna/Docusate Sodium 2 tab 05/04/20 09:00 05/13/20 21:01 Senokot S PO 2 tab BID SHORTY Administration Sertraline HCl 50 mg 05/03/20 21:00 05/13/20 21:01 Zoloft PO 50 mg HS SHORTY Administration Sodium Chloride 10 ml 05/09/20 09:50 05/11/20 20:39 Flush - Normal Saline IVF 10 ml PRN PRN Administration Saline Flush Tamsulosin HCl 0.4 mg 05/04/20 09:00 05/13/20 11:35 Flomax PO 0.4 mg DAILY SHORTY Administration Tramadol HCl 100 mg 05/06/20 12:30 05/09/20 20:58 Ultram PO 100 mg Q12H PRN Administration Moderate Pain 4-6 - Exam General Appearance: awake alert Heart: RRR, no murmur, no gallops, no rubs, normal peripheral pulses Respiratory: CTAB, no wheezes, no rales, no ronchi, normal chest expansion Gastrointestinal: soft, non-tender, non-distended, normal bowel sounds, no palpable masses Extremities: no cyanosis, no clubbing, no edema Psychiatric: normal affect, normal behavior, A&O x 3 Hosp A/P - Plan continue antibiotics Left hip infection s/p arthroplasty - Mngt per Ortho - on Doxycycline/Vancomycin Chronic diastolic HF - compensated COPD/Chronic hypoxic resp failure on 3.5 L O2 at home NNEKA/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 - improving - Torsemide and Losartan on hold - s/p albumin - Renal USG - no obstruction -GFR is upward trending Chronic Anemia requiring blood transfusion - almost every other week (Dr Smith ) -s/p EGD -awaiting EGD biopsy results -s/p 5 units PRBC this admission -PPI changed to IV - Epoegen started -PO iron dced -s/p IV iron Par Afib s/p watchman -off Tikosyn per EP -not on anticoag due to anemia BPH BRAD -on CPAP Hypokalemia -replaced HLD -on Statins Chronic pain syndrome DVT prophylaxis - on ASA 81 mg BID per Ortho PLAN: Cont PT/OT Await transfer to rehab Renal function improving On PO Lasix Cont current meds as above Cont IV Vancomycin per ID - monitor Vancomycin level Cont supportive care Continue SCD for DVT prophylaxis AM labs DIONISIO Landaverde in AM @0600
[2020-05-14] MEDS: Aspirin 81 mg Enteric Coated Tablet PO SCH ×2 (08:32→20:39)
[2020-05-14] MEDS: Cyanocobalamin (Vitamin B-12) 1,000 MCG TAB PO SCH (08:32)
[2020-05-14] MEDS: Senokot S 8.6-50 MG TAB PO SCH ×2 (08:32→20:39)
[2020-05-14] MEDS: Lidocaine 5% Patch TD SCH (08:33)
[2020-05-14] MEDS: predniSONE 20 MG TAB PO SCH (08:33)
[2020-05-14] MEDS: Gabapentin 100 MG CAP PO SCH ×2 (08:33→20:39)
[2020-05-14] MEDS: Folic Acid 1 MG TAB PO SCH (08:33)
[2020-05-14] MEDS: Multivitamin W/ Minerals 1 TAB PO SCH (08:33)
[2020-05-14] MEDS: Dutasteride 0.5 MG CAP PO SCH (08:33)
[2020-05-14] MEDS: Tamsulosin HCl 0.4 MG CAP PO SCH (08:33)
[2020-05-14] MEDS: Pantoprazole 40 MG VIAL IVP SCH (08:33)
[2020-05-14] MEDS: Furosemide 40 MG TAB PO SCH (08:33)
[2020-05-14] MEDS: Polyethylene Glycol 3350 17 GM Packet PO SCH (08:34)
[2020-05-14] MEDS: Fluticasone Propionate Nasal Spray 16 gm Bottle NASAL SCH (08:34)
[2020-05-14] MEDS: Doxycycline 100 MG CAP PO SCH ×2 (08:34→20:39)
[2020-05-14] MEDS ORDERED: Pantoprazole 40 MG VIAL IVP SCH (09:00)
[2020-05-14] MEDS ORDERED: Sodium Chloride 0.9% (PF) 10 ML VIAL FS PRN (09:00)
--- NOTE | 2020-05-14 13:41 | PRG ---
DATE OF SERVICE: 05/14/2020 SUBJECTIVE: Patient was seen and examined at bedside and overnight events noted. Patient denies any shortness of breath or chest pain or palpitation. No history of nausea or vomiting or diarrhea or fever or chills or cramps. OBJECTIVE: GENERAL: This is a well-built male, in no apparent distress. VITAL SIGNS: Temperature 97.9. Heart rate . Respiratory rate . Blood pressure 140/68. HEENT: Atraumatic, normocephalic. Oral mucosa is moist NECK: Supple. CARDIOVASCULAR: S1, S2 heard. Rate and rhythm regular. RESPIRATORY: Clear to auscultation. GASTROINTESTINAL: Abdomen is soft. MUSCULOSKELETAL: No tenderness. No edema. DERMATOLOGIC: No skin rash. NEUROLOGIC: Alert and awake and oriented X3. No focal neurologic deficits. Moving all the extremities. PSYCHIATRIC: Mood and affect normal. LABORATORY DATA: Potassium 3.9, BUN is 83, and creatinine is 2.2. ASSESSMENT AND PLAN: 1. Acute kidney injury on chronic kidney disease, stage 4. Labs getting better slowly. 2. Anemia of chronic disease, on Epogen. 3. Fluid overload, on Lasix daily. 4. History of hypertension. 5. Edema, getting better. We will continue on Lasix 40 mg p.o. daily. Creatinine is getting better with good urine output. Continue to limit fluid and salt intake. We will follow. Avoid nephrotoxins. Job ID: [id number]
[2020-05-14] MEDS: Vancomycin HCl 500 MG in Sodium Chloride 0.9% 100 ML IVPB SCH (15:10)
[2020-05-14] MEDS: Rosuvastatin 10 MG TAB PO SCH (20:39)
[2020-05-14] MEDS: Saccharomyces boulardii 250 MG CAP PO SCH (20:39)
[2020-05-14] MEDS: HYDROcodone/Acetaminophen 7.5/325 mg Tablet PO PRN (20:40)
[2020-05-14] MEDS: Lidocaine Patch Removal TOP SCH (20:47)
[2020-05-15] MEDS: Ipratropium Bromide 2.5 ml Neb NEB SCH ×4 (01:30→18:11)
[2020-05-15 05:31] LABS: Hemoglobin 7.6 g/dL (14.0-18.0); Mean Corpuscular HGB CONC 30.3 g/dL (32.0-36.0); Mean Corpuscular Hemoglobin 27.6 pg (27.0-31.0); Mean Corpuscular Volume 91.1 fL (78.0-98.0); Mean Platelet Volume 7.7 fL (7.4-10.4); Platelet Count 349 thou/uL (130-400); RBC Distribution Width 18.3 % (11.5-14.5); Red Blood Cell (RBC) Count 2.75 mill/uL (4.70-6.10)
[2020-05-15] MEDS: HYDROcodone/Acetaminophen 7.5/325 mg Tablet PO PRN ×2 (05:38→20:21)
[2020-05-15 05:49] LABS: Anion Gap 12 mmol/L (10-20); BUN (Urea Nitrogen) 71 mg/dL (8.4-25.7); Calc. Creatinine Clearance 34 mL/min (70-130); Carbon Dioxide 27 mmol/L (23-31); Chloride 104 mmol/L (98-107); Estimated GFR-MDRD 29; Glucose 116 mg/dL (83-110); Potassium 3.7 mmol/L (3.5-5.1); Sodium 139 mmol/L (136-145)
[2020-05-15] MEDS: Mometasone 200 MCG/Formoterol 5 MCG 120 PUFF INHALER INH SCH ×2 (07:03→18:08)
--- NOTE | 2020-05-15 08:16 | PRG ---
DATE OF SERVICE: 05/14/2020 SUBJECTIVE: This is an 79-year-old male, with severe COPD, status post Watchman device placement. The patient was seen by Dr. Banda for anemia and occult bleeding. He underwent EGD yesterday and was found to have ulcer in the bowel with some AVMs, which were cauterized. He had done well overnight. The patient has no abdominal pain. No nausea or vomiting. He has no stool today. Patient has had previous colonoscopy in 2018. It was followed by Dr. Banda. He does not have a colonoscopy. The patient offers no complaints. OBJECTIVE: VITAL SIGNS: Afebrile, pulse is 73, blood pressure 155/73. CARDIOVASCULAR SYSTEM: Normal heart sounds. LUNGS: Clear to auscultation. ABDOMEN: Soft. No organomegaly. No tenderness. No masses. Bowel sounds are normal. CLINICAL IMPRESSION: 1. Chronic obstructive pulmonary disease. 2. Recurrent anemia, probably multifactorial, including chronic kidney injury, anemia of chronic diseases, and also ___ hemolyzed from his malfunctioning of Watchman process. Dr. Banda does not feel a colonoscopy in the past. RECOMMENDATION: 1. . 2. Continue PPI. 3. Epogen as indicated. 4. Follow up H and H. We will defer colonoscopy for now as he had a colonoscopy less than 2 years ago and was negative. Job ID: [id number]
--- NOTE | 2020-05-15 09:11 | PDOC.HOSPP ---
- Subjective Encounter Date: 05/15/20 Encounter Time: 12:15 Subjective: Patient seen and examined for med mngt. Pain controlled. No CP. Landaverde dced today. Urinated "small amt" per pt. Post void 521 ml per RN. No other complaints. No overnight events - Objective Vital Signs & Weight: Vital Signs (12 hours) Temp Pulse Resp BP Pulse Ox 05/15/20 07:18 98 F 82 20 159/76 H 97 05/15/20 06:56 86 14 05/15/20 03:59 98.3 F 87 16 165/76 H 98 05/15/20 01:30 92 16 96 05/15/20 00:58 96 Weight Admit Weight 193 lb Weight 196 lb 1.6 oz I&O: 05/14/20 05/15/20 05/16/20 06:59 06:59 06:59 Intake Total 1065 1275 Output Total 1800 2475 Balance -735 -1200 Result Diagrams: 05/15/20 05:02 05/15/20 05:02 EKG Reviewed by me: Yes (Tele SR) Hospitalist ROS - Review of Systems Respiratory: denies: cough, dry, shortness of breath, hemoptysis, SOB with excertion, pleuritic pain, sputum, wheezing, other Cardiovascular: denies: chest pain, palpitations, orthopnea, paroxysmal noc. dyspnea, edema, light headedness, other - Medication Medications: Active Medications Generic Name Dose Route Start Last Admin Trade Name Freq PRN Reason Stop Dose Admin Acetaminophen 500 mg 05/14/20 15:00 05/14/20 20:39 Tylenol PO 500 mg TID SHORTY Administration Hydrocodone Bitart/Acetaminophen 1 tab 05/09/20 10:22 05/15/20 05:38 [place] 7.5/325 PO 1 tab Q4H PRN Administration Severe Pain (7-10) Hydrocodone Bitart/Acetaminophen 2 tab 05/09/20 10:22 05/12/20 21:19 [place] 7.5/325 PO 2 tab Q4H PRN Administration Breakthrough Pain Albuterol/Ipratropium 3 ml 05/03/20 17:58 05/14/20 18:18 Duoneb NEB 3 ml Q4H PRN Administration Wheezing Aspirin 81 mg 05/03/20 21:00 05/14/20 20:39 Ecotrin PO 81 mg BID SHORTY Administration Cyanocobalamin 1,000 mcg 05/10/20 09:00 05/14/20 08:32 Vitamin B-12 PO 1,000 mcg DAILY SHORTY Administration Cyclobenzaprine HCl 5 mg 05/03/20 17:58 05/10/20 20:48 Flexeril PO 5 mg TIDPRN PRN Administration Muscle Spasm Diphenhydramine HCl 25 mg 05/03/20 18:00 05/10/20 23:48 Benadryl PO 25 mg Q3H PRN Administration Itching Doxycycline Hyclate 100 mg 05/04/20 21:00 05/14/20 20:39 Vibramycin PO 100 mg BID SHORTY Administration Dutasteride 0.5 mg 05/04/20 09:00 05/14/20 08:33 Avodart PO 0.5 mg DAILY SHORTY Administration Epoetin Ar-epbx 10,000 unit 05/12/20 12:00 05/12/20 12:33 Retacrit SC 10,000 unit Q7D SHORTY Administration Fentanyl 50 mcg 05/06/20 11:24 05/10/20 07:45 Sublimaze SLOW IVP 50 mcg Q1H PRN Administration Severe Breakthrough Pain Fluticasone Propionate 0 gm 05/04/20 09:00 05/14/20 08:34 Flonase Nasal [place] NASAL 1 spray DAILY SHORTY Administration Folic Acid 1 mg 05/10/20 09:00 05/14/20 08:33 Folvite PO 1 mg DAILY SHORTY Administration Furosemide 40 mg 05/12/20 09:00 05/14/20 08:33 Lasix PO 40 mg 0900 SHORTY Administration Gabapentin 100 mg 05/03/20 21:00 05/14/20 20:39 Neurontin PO 100 mg BID SHORTY Administration Vancomycin HCl 500 mg/ Sodium 100 mls @ 100 mls/hr 05/12/20 15:00 05/14/20 15 :10 Chloride IVPB 100 mls Q2D@1500 SHORTY Administration Ipratropium [place] 2.5 ml 05/03/20 19:00 05/15/20 06:56 Atrovent NEB 2.5 ml [id number] SHORTY Administration Iron/Minerals/Multivitamins 1 tab 05/04/20 09:00 05/14/20 08:33 Theragran M PO 1 tab DAILY SHORTY Administration Lidocaine 1 patch 05/04/20 09:00 05/14/20 08:33 Lidoderm 5% Patch TD 1 patch DAILY SHORTY Administration Miscellaneous Medication 1 each 05/04/20 21:00 05/14/20 20:47 Lidocaine Patch Removal TOP 1 each HS SHORTY Administration Mometasone Furoate/Formoterol Fumar 2 puff 05/03/20 18:30 05/15/20 07:03 Dulera 200 Mcg/5 Mcg Inhaler INH 2 puff BID-RT SHORTY Administration Pantoprazole Sodium 40 mg 05/14/20 09:00 05/14/20 08:33 Protonix IVP 40 mg DAILY SHORTY Administration Polyethylene Glycol 17 gm 05/04/20 09:00 05/14/20 08:34 Miralax PO 17 gm DAILY SHORTY Administration Prednisone 20 mg 05/04/20 09:00 05/14/20 08:33 Prednisone PO 20 mg DAILY SHORTY Administration Rosuvastatin Calcium 10 mg 05/03/20 21:00 05/14/20 20:39 Crestor PO 10 mg HS SHORTY Administration Saccharomyces Boulardii 250 mg 05/04/20 21:00 05/14/20 20:39 Florastor PO 250 mg HS SHORTY Administration Senna/Docusate Sodium 2 tab 05/04/20 09:00 05/14/20 20:39 Senokot S PO 2 tab BID SHORTY Administration Sertraline HCl 50 mg 05/03/20 21:00 05/14/20 20:39 Zoloft PO 50 mg HS SHORTY Administration Sodium Chloride 10 ml 05/09/20 09:50 05/11/20 20:39 Flush - Normal Saline IVF 10 ml PRN PRN Administration Saline Flush Tamsulosin HCl 0.4 mg 05/04/20 09:00 05/14/20 08:33 Flomax PO 0.4 mg DAILY SHORTY Administration Tramadol HCl 100 mg 05/06/20 12:30 05/09/20 20:58 Ultram PO 100 mg Q12H PRN Administration Moderate Pain 4-6 - Exam General Appearance: NAD Heart: RRR, no gallops Respiratory: no wheezes, no rales Gastrointestinal: non-tender, non-distended Extremities: 2+ LE edema Neurological: no new deficit Psychiatric: A&O x 3 Hosp A/P - Plan DVT proph w/SCDs Left hip infection s/p arthroplasty - Mngt per Ortho - on Doxycycline/Vancomycin Chronic diastolic HF - compensated COPD/Chronic hypoxic resp failure on 3.5 L O2 at home NNEKA/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 - improving - Torsemide and Losartan on hold - s/p albumin - Renal USG - no obstruction -GFR is upward trending Chronic Anemia requiring blood transfusion - almost every other week (Dr Smith ) -s/p EGD -awaiting EGD biopsy results -s/p 5 units PRBC this admission -PPI changed to IV - Epoegen started -PO iron dced -s/p IV iron Par Afib s/p watchman -off Tikosyn per EP -not on anticoag due to anemia BPH BRAD -on CPAP Hypokalemia -replaced HLD -on Statins Chronic pain syndrome DVT prophylaxis - on ASA 81 mg BID per Ortho Urinary retention PLAN: 05/15 DC med rec completed for possible dc to inpt Rehab today DC disposition per primary service Renal function improving Cont PO Lasix Cont Epoegen Monitor Post void - if >500 - Place landaverde Cont Leg elevation on ASA for DVT prophylaxis per primary service 05/14 Cont PT/OT Await transfer to rehab Renal function improving On PO Lasix Cont current meds as above Cont IV Vancomycin per ID - monitor Vancomycin level Cont supportive care Continue SCD for DVT prophylaxis AM labs DC Landaverde in AM @0600
[2020-05-15] MEDS: Pantoprazole 40 MG VIAL IVP SCH (10:08)
[2020-05-15] MEDS: Tamsulosin HCl 0.4 MG CAP PO SCH (10:08)
[2020-05-15] MEDS: Multivitamin W/ Minerals 1 TAB PO SCH (10:08)
[2020-05-15] MEDS: Gabapentin 100 MG CAP PO SCH ×2 (10:08→20:17)
[2020-05-15] MEDS: Acetaminophen 500 MG TAB PO SCH ×3 (10:08→20:17)
[2020-05-15] MEDS: Senokot S 8.6-50 MG TAB PO SCH ×2 (10:09→20:17)
[2020-05-15] MEDS: Folic Acid 1 MG TAB PO SCH (10:09)
[2020-05-15] MEDS: Cyanocobalamin (Vitamin B-12) 1,000 MCG TAB PO SCH (10:09)
[2020-05-15] MEDS: Aspirin 81 mg Enteric Coated Tablet PO SCH ×2 (10:09→20:17)
[2020-05-15] MEDS: Furosemide 40 MG TAB PO SCH (10:09)
[2020-05-15] MEDS: Doxycycline 100 MG CAP PO SCH ×2 (10:10→20:17)
[2020-05-15] MEDS: predniSONE 20 MG TAB PO SCH (10:10)
[2020-05-15] MEDS: Polyethylene Glycol 3350 17 GM Packet PO SCH (10:10)
[2020-05-15] MEDS: Fluticasone Propionate Nasal Spray 16 gm Bottle NASAL SCH (10:10)
[2020-05-15] MEDS: Dutasteride 0.5 MG CAP PO SCH (10:10)
[2020-05-15] MEDS: Lidocaine 5% Patch TD SCH (10:11)
--- NOTE | 2020-05-15 12:33 | PRG ---
DATE OF SERVICE: 05/15/2020 SUBJECTIVE: Patient was seen and examined at bedside and overnight events noted. Patient denies any shortness of breath or chest pain or palpitation. No history of nausea or vomiting or diarrhea or fever or chills or cramps. OBJECTIVE: GENERAL: This is a well-built male, in no apparent distress. VITAL SIGNS: Temperature 98.0. Heart rate 62. Respiratory rate 20. Blood pressure 159/76. HEENT: Atraumatic, normocephalic. Oral mucosa is moist. NECK: Supple. CARDIOVASCULAR: S1, S2 heard. Rate and rhythm regular. RESPIRATORY: Clear to auscultation. GASTROINTESTINAL: Abdomen is soft. MUSCULOSKELETAL: No tenderness. No edema. DERMATOLOGIC: No skin rash. NEUROLOGIC: Alert and awake and oriented x3. No focal neurologic deficits. Moving all the extremities. PSYCHIATRIC: Mood and affect normal. LABORATORY DATA: Potassium 3.7, BUN is 71, and creatinine is 2.2. ASSESSMENT AND PLAN: 1. Acute kidney injury on chronic kidney disease, stage 4, stable. 2. Fluid overload, on Lasix. We will make Lasix 20 mg p.o. daily. 3. Hypertension. 4. Edema. 5. Anemia of chronic disease. Reduce Lasix dose. The patient is also complaining of urinary retention. We will advise nurse to bladder scan. Job ID: [id number]
[2020-05-15] MEDS: Saccharomyces boulardii 250 MG CAP PO SCH (20:16)
[2020-05-15] MEDS: Rosuvastatin 10 MG TAB PO SCH (20:17)
[2020-05-15] MEDS: Lidocaine Patch Removal TOP SCH (21:47)
[2020-05-16] MEDS: Ipratropium Bromide 2.5 ml Neb NEB SCH ×3 (01:13→14:04)
[2020-05-16 04:01] LABS: Hemoglobin 7.6 g/dL (14.0-18.0); Mean Corpuscular HGB CONC 30.3 g/dL (32.0-36.0); Mean Corpuscular Hemoglobin 27.8 pg (27.0-31.0); Mean Corpuscular Volume 91.9 fL (78.0-98.0); Mean Platelet Volume 7.7 fL (7.4-10.4); Platelet Count 360 thou/uL (130-400); RBC Distribution Width 18.5 % (11.5-14.5); Red Blood Cell (RBC) Count 2.73 mill/uL (4.70-6.10); White Blood Cell (WBC) Count 13.8 thou/uL (4.8-10.8)
[2020-05-16 04:19] LABS: Anion Gap 14 mmol/L (10-20); BUN (Urea Nitrogen) 69 mg/dL (8.4-25.7); Calc. Creatinine Clearance 36 mL/min (70-130); Calcium 7.7 mg/dL (7.8-10.44); Carbon Dioxide 25 mmol/L (23-31); Chloride 103 mmol/L (98-107); Estimated GFR-MDRD 31; Glucose 108 mg/dL (83-110); Potassium 3.9 mmol/L (3.5-5.1); Sodium 138 mmol/L (136-145)
--- NOTE | 2020-05-16 07:36 | PRG ---
DATE OF SERVICE: 05/15/2020 SUBJECTIVE: This is an 79-year-old male with COPD, chronic kidney disease, anemia. He also has had Watchman procedure done for history of atrial fibrillation. Apparently his device is malfunctioning hemolysis. The patient is doing well. He has no abdominal pain, no nausea or vomiting. He has had no stool today. Blood count is fairly stable. He has received 1 dose of IV iron and also IV PPI. He offers no complaints. OBJECTIVE: VITAL SIGNS: Afebrile, pulse is 85, blood pressure 163/75. CARDIOVASCULAR: Normal heart sounds. LUNGS: Clear to auscultation. No wheezing heard. ABDOMEN: Soft and nontender. LABORATORY DATA: From today, hemoglobin 7.6, hematocrit 25, WBC [id number]. Chemistry panel, BUN is 71. Lytes are normal. Glucose 116, creatinine 2.210. RECOMMENDATION: 1. Continue PPI. 2. Hold off anticoagulation. 3. We will sign off from today and if new issues, please call us back. Job ID: [id number]
[2020-05-16] MEDS: Mometasone 200 MCG/Formoterol 5 MCG 120 PUFF INHALER INH SCH (07:37)
[2020-05-16] MEDS ORDERED: Furosemide 20 MG TAB PO SCH (09:00)
[2020-05-16] MEDS: Senokot S 8.6-50 MG TAB PO SCH (09:24)
[2020-05-16] MEDS: Multivitamin W/ Minerals 1 TAB PO SCH (09:25)
[2020-05-16] MEDS: Doxycycline 100 MG CAP PO SCH (09:25)
[2020-05-16] MEDS: predniSONE 20 MG TAB PO SCH (09:25)
[2020-05-16] MEDS: Acetaminophen 500 MG TAB PO SCH ×2 (09:25→14:57)
[2020-05-16] MEDS: Polyethylene Glycol 3350 17 GM Packet PO SCH (09:25)
[2020-05-16] MEDS: Gabapentin 100 MG CAP PO SCH (09:25)
[2020-05-16] MEDS: Tamsulosin HCl 0.4 MG CAP PO SCH (09:25)
[2020-05-16] MEDS: Dutasteride 0.5 MG CAP PO SCH (09:25)
[2020-05-16] MEDS: Folic Acid 1 MG TAB PO SCH (09:25)
[2020-05-16] MEDS: Cyanocobalamin (Vitamin B-12) 1,000 MCG TAB PO SCH (09:25)
[2020-05-16] MEDS: Aspirin 81 mg Enteric Coated Tablet PO SCH (09:25)
[2020-05-16] MEDS: Fluticasone Propionate Nasal Spray 16 gm Bottle NASAL SCH (09:26)
[2020-05-16] MEDS: Lidocaine 5% Patch TD SCH (09:30)
[2020-05-16] MEDS: Pantoprazole 40 MG VIAL IVP SCH (09:30)
--- NOTE | 2020-05-16 09:51 | PDOC.HOSPP ---
- Subjective Encounter Date: 05/16/20 Encounter Time: 09:30 Subjective: Patient seen and examined for med mngt. No CP or SOB. No new complaints. No overnight events - Objective Vital Signs & Weight: Vital Signs (12 hours) Temp Pulse Resp BP BP Pulse Ox 05/16/20 07:53 97.5 F L 82 20 157/74 H 92 L 05/16/20 07:15 69 20 05/16/20 03:20 98.1 F 83 18 164/79 H 97 05/16/20 01:09 86 22 H 97 05/16/20 00:35 95 Weight Admit Weight 193 lb Weight 197 lb 1.6 oz I&O: 05/15/20 05/16/20 05/17/20 06:59 06:59 06:59 Intake Total 1275 1340 Output Total 2475 425 Balance -1200 915 Result Diagrams: 05/16/20 03:28 05/16/20 03:28 EKG Reviewed by me: Yes (Tele SR) Hospitalist ROS - Review of Systems Respiratory: denies: cough, dry, shortness of breath, hemoptysis, SOB with excertion, pleuritic pain, sputum, wheezing, other Cardiovascular: denies: chest pain, palpitations, orthopnea, paroxysmal noc. dyspnea, edema, light headedness, other - Medication Medications: Active Medications Generic Name Dose Route Start Last Admin Trade Name Freq PRN Reason Stop Dose Admin Acetaminophen 500 mg 05/14/20 15:00 05/16/20 09:25 Tylenol PO 500 mg TID SHORTY Administration Hydrocodone Bitart/Acetaminophen 1 tab 05/09/20 10:22 05/15/20 20:21 [place] 7.5/325 PO 1 tab Q4H PRN Administration Severe Pain (7-10) Hydrocodone Bitart/Acetaminophen 2 tab 05/09/20 10:22 05/12/20 21:19 [place] 7.5/325 PO 2 tab Q4H PRN Administration Breakthrough Pain Albuterol/Ipratropium 3 ml 05/03/20 17:58 05/16/20 01:09 Duoneb NEB 3 ml Q4H PRN Administration Wheezing Aspirin 81 mg 05/03/20 21:00 05/16/20 09:25 Ecotrin PO 81 mg BID SHORTY Administration Cyanocobalamin 1,000 mcg 05/10/20 09:00 05/16/20 09:25 Vitamin B-12 PO 1,000 mcg DAILY SHORTY Administration Cyclobenzaprine HCl 5 mg 05/03/20 17:58 05/10/20 20:48 Flexeril PO 5 mg TIDPRN PRN Administration Muscle Spasm Diphenhydramine HCl 25 mg 05/03/20 18:00 05/10/20 23:48 Benadryl PO 25 mg Q3H PRN Administration Itching Doxycycline Hyclate 100 mg 05/04/20 21:00 05/16/20 09:25 Vibramycin PO 100 mg BID SHORTY Administration Dutasteride 0.5 mg 05/04/20 09:00 05/16/20 09:25 Avodart PO 0.5 mg DAILY SHORTY Administration Epoetin Ar-epbx 10,000 unit 05/12/20 12:00 05/12/20 12:33 Retacrit [place] 10,000 unit Q7D SHORTY Administration Fentanyl 50 mcg 05/06/20 11:24 05/10/20 07:45 Sublimaze SLOW IVP 50 mcg Q1H PRN Administration Severe Breakthrough Pain Fluticasone Propionate 0 gm 05/04/20 09:00 05/16/20 09:26 Flonase Nasal [place] NASAL 1 spray DAILY SHORTY Administration Folic Acid 1 mg 05/10/20 09:00 05/16/20 09:25 Folvite PO 1 mg DAILY SHORTY Administration Furosemide 20 mg 05/16/20 09:00 05/16/20 09:25 Lasix PO 20 mg 0900 SHORTY Administration Gabapentin 100 mg 05/03/20 21:00 05/16/20 09:25 Neurontin PO 100 mg BID SHORTY Administration Vancomycin HCl 500 mg/ Sodium 100 mls @ 100 mls/hr 05/12/20 15:00 05/14/20 15 :10 Chloride IVPB 100 mls Q2D@1500 SHORTY Administration Ipratropium [place] 2.5 ml 05/03/20 19:00 05/16/20 07:15 Atrovent NEB 2.5 ml [id number] SHORTY Administration Iron/Minerals/Multivitamins 1 tab 05/04/20 09:00 05/16/20 09:25 Theragran M PO 1 tab DAILY SHORTY Administration Lidocaine 1 patch 05/04/20 09:00 05/16/20 09:30 Lidoderm 5% Patch TD 1 patch DAILY SHORTY Administration Miscellaneous Medication 1 each 05/04/20 21:00 05/15/20 21:47 Lidocaine Patch Removal TOP Not Given HS SHORTY Mometasone Furoate/Formoterol Fumar 2 puff 05/03/20 18:30 05/16/20 07:37 Dulera 200 Mcg/5 Mcg Inhaler INH 2 puff BID-RT SHORTY Administration Pantoprazole Sodium 40 mg 05/14/20 09:00 05/16/20 09:30 Protonix IVP 40 mg DAILY SHORTY Administration Polyethylene Glycol 17 gm 05/04/20 09:00 05/16/20 09:25 Miralax PO 17 gm DAILY SHORTY Administration Prednisone 20 mg 05/04/20 09:00 05/16/20 09:25 Prednisone PO 20 mg DAILY SHORTY Administration Rosuvastatin Calcium 10 mg 05/03/20 21:00 05/15/20 20:17 Crestor PO 10 mg HS SHORTY Administration Saccharomyces Boulardii 250 mg 05/04/20 21:00 05/15/20 20:16 Florastor PO 250 mg HS SHORTY Administration Senna/Docusate Sodium 2 tab 05/04/20 09:00 05/16/20 09:24 Senokot S PO 2 tab BID SHORTY Administration Sertraline HCl 50 mg 05/03/20 21:00 05/15/20 20:17 Zoloft PO 50 mg HS SHORTY Administration Sodium Chloride 10 ml 05/09/20 09:50 05/11/20 20:39 Flush - Normal Saline IVF 10 ml PRN PRN Administration Saline Flush Tamsulosin HCl 0.4 mg 05/04/20 09:00 05/16/20 09:25 Flomax PO 0.4 mg DAILY SHORTY Administration Tramadol HCl 100 mg 05/06/20 12:30 05/09/20 20:58 Ultram PO 100 mg Q12H PRN Administration Moderate Pain 4-6 - Exam General Appearance: NAD Neck: supple, no JVD Heart: no gallops Respiratory: no wheezes, no ronchi Gastrointestinal: non-tender, normal bowel sounds Hosp A/P - Plan DVT proph w/SCDs Left hip infection s/p arthroplasty - Mngt per Ortho - on Doxycycline/Vancomycin Chronic diastolic HF - compensated COPD/Chronic hypoxic resp failure on 3.5 L O2 at home NNEKA/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 - improving - Torsemide and Losartan on hold - s/p albumin - Renal USG - no obstruction -GFR is upward trending Chronic Anemia requiring blood transfusion - almost every other week (Dr Smith ) -s/p EGD -awaiting EGD biopsy results -s/p 5 units PRBC this admission -PPI changed to IV - Epoegen started -PO iron dced -s/p IV iron Par Afib s/p watchman -off Tikosyn per EP -not on anticoag due to anemia BPH BRAD -on CPAP Hypokalemia -replaced HLD -on Statins Chronic pain syndrome DVT prophylaxis - on ASA 81 mg BID per Ortho Urinary retention PLAN: 05/16 Renal function improving HH stable Await bed at Rehab Cont other meds as above DC summary dictated Tikosyn dced Cont Lasix 40 mg daily 05/15 DC med rec completed for possible dc to inpt Rehab today DC disposition per primary service Renal function improving Cont PO Lasix Cont Epoegen Monitor Post void - if >500 - Place [facility] Cont Leg elevation on ASA for DVT prophylaxis per primary service 05/14 Cont PT/OT Await transfer to rehab Renal function improving On PO Lasix Cont current meds as above Cont IV Vancomycin per ID - monitor Vancomycin level Cont supportive care Continue SCD for DVT prophylaxis AM labs DC Landaverde in AM @0600
--- NOTE | 2020-05-16 11:44 | PDOC.EP ---
- Subjective Date: 05/16/20 Time: 11:42 Interval History: feels well, but tired. Voicing no new concerns or complaints - Review of Systems Respiratory: reports: shortness of breath. denies: cough, dry, sputum, wheezing Cardiology: denies: chest pain, edema, heart racing, light headedness, palpitations, passing out Gastrointestinal: denies: abdominal pain, constipation, vomitting Musculoskeletal: denies: unstable gait, falls, neck pain - Objective Allergies/Adverse Reactions: Allergies Allergy/AdvReac Type Severity Reaction Status Date / Time adhesive AdvReac Verified 04/28/20 13:42 Current Medications Acetaminophen (Tylenol) 650 mg PO Q4H PRN PRN Reason: Headache/Fever or Pain Acetaminophen (Tylenol) 500 mg PO TID [facility] Last Admin: 05/16/20 09:25 Dose: 500 mg Hydrocodone Bitart/Acetaminophen ([place] 7.5/325) 1 tab PO Q4H PRN PRN Reason: Severe Pain (7-10) Last Admin: 05/15/20 20:21 Dose: 1 tab Hydrocodone Bitart/Acetaminophen ([place] 7.5/325) 2 tab PO Q4H PRN PRN Reason: Breakthrough Pain Last Admin: 05/12/20 21:19 Dose: 2 tab Albuterol/Ipratropium (Duoneb) 3 ml NEB Q4H PRN PRN Reason: Wheezing Last Admin: 05/16/20 01:09 Dose: 3 ml Aspirin (Ecotrin) 81 mg PO BID [facility] Last Admin: 05/16/20 09:25 Dose: 81 mg Cyanocobalamin (Vitamin B-12) 1,000 mcg PO DAILY [facility] Last Admin: 05/16/20 09:25 Dose: 1,000 mcg Cyclobenzaprine HCl (Flexeril) 5 mg PO TIDPRN PRN PRN Reason: Muscle Spasm Last Admin: 05/10/20 20:48 Dose: 5 mg Diphenhydramine HCl (Benadryl) 25 mg PO Q3H PRN PRN Reason: Itching Last Admin: 05/10/20 23:48 Dose: 25 mg Diphenhydramine HCl (Benadryl) 25 mg IM Q3H PRN PRN Reason: Itching Diphenhydramine HCl (Benadryl) 25 mg IVP Q3H PRN PRN Reason: Itching Doxycycline Hyclate (Vibramycin) 100 mg PO BID [facility] Last Admin: 05/16/20 09:25 Dose: 100 mg Dutasteride (Avodart) 0.5 mg PO DAILY [facility] Last Admin: 05/16/20 09:25 Dose: 0.5 mg Emollient Cream (Hydrocerin Cream) 0 gm TOP PRN PRN PRN Reason: Itching Epoetin Ar-epbx (Retacrit) 10,000 unit SC Q7D [facility] Last Admin: 05/12/20 12:33 Dose: 10,000 unit Fluticasone Propionate (Flonase Nasal [place]) 0 gm NASAL DAILY [facility] Last Admin: 05/16/20 09:26 Dose: 1 spray Folic Acid (Folvite) 1 mg PO DAILY [facility] Last Admin: 05/16/20 09:25 Dose: 1 mg Furosemide (Lasix) 20 mg PO 0900 [facility] Last Admin: 05/16/20 09:25 Dose: 20 mg Gabapentin (Neurontin) 100 mg PO BID [facility] Last Admin: 05/16/20 09:25 Dose: 100 mg Hydralazine HCl (Apresoline) 10 mg SLOW IVP Q4H PRN PRN Reason: SBP GREATER THAN 160 Vancomycin HCl 500 mg/ Sodium (Chloride) 100 mls @ 100 mls/hr IVPB Q2D@1500 [facility] Last Admin: 05/14/20 15:10 Dose: 100 mls Ipratropium [place] (Atrovent) 2.5 ml NEB [id number] [facility] Last Admin: 05/16/20 07:15 Dose: 2.5 ml Iron/Minerals/Multivitamins (Theragran M) 1 tab PO DAILY [facility] Last Admin: 05/16/20 09:25 Dose: 1 tab Lidocaine (Lidoderm 5% Patch) 1 patch TD DAILY [facility] Last Admin: 05/16/20 09:30 Dose: 1 patch Miscellaneous Medication (Lidocaine Patch Removal) 1 each TOP HS [facility] Last Admin: 05/15/20 21:47 Dose: Not Given Miscellaneous Medication (Pharmacy To Dose) 1 each IVPB PRN PRN PRN Reason: Pharmacy to dose [facility] 15-20 Mometasone Furoate/Formoterol Fumar (Dulera 200 Mcg/5 Mcg Inhaler) 2 puff INH BID-RT [facility] Last Admin: 05/16/20 07:37 Dose: 2 puff Ondansetron HCl (Zofran) 4 mg IVP Q6H PRN PRN Reason: Nausea/Vomiting Pantoprazole Sodium (Protonix) 40 mg IVP DAILY [facility] Last Admin: 05/16/20 09:30 Dose: 40 mg Polyethylene Glycol (Miralax) 17 gm PO DAILY [facility] Last Admin: 05/16/20 09:25 Dose: 17 gm Prednisone (Prednisone) 20 mg PO DAILY [facility] Last Admin: 05/16/20 09:25 Dose: 20 mg Promethazine HCl (Phenergan) 12.5 mg IM Q4H PRN PRN Reason: Nausea Promethazine HCl (Phenergan Suppository) 25 mg [place] Q4H PRN PRN Reason: Nausea/Vomiting Rosuvastatin Calcium (Crestor) 10 mg PO HS [facility] Last Admin: 05/15/20 20:17 Dose: 10 mg Saccharomyces Boulardii (Florastor) 250 mg PO [facility] Last Admin: 05/15/20 20:16 Dose: 250 mg Senna/Docusate Sodium (Senokot S) 2 tab PO BID [facility] Last Admin: 05/16/20 09:24 Dose: 2 tab Sertraline HCl (Zoloft) 50 mg PO [facility] Last Admin: 05/15/20 20:17 Dose: 50 mg Sodium Chloride (Flush - Normal Saline) 10 ml IVF PRN PRN PRN Reason: Saline Flush Last Admin: 05/11/20 20:39 Dose: 10 ml Sodium Chloride (Flush - Normal Saline) 10 ml IVF PRN PRN PRN Reason: Saline Flush Sodium Chloride (Normal Saline Pf) 10 ml FS PRN PRN PRN Reason: RECONSTITUTION Tamsulosin HCl (Flomax) 0.4 mg PO DAILY [facility] Last Admin: 05/16/20 09:25 Dose: 0.4 mg Tramadol HCl (Ultram) 100 mg PO Q12H PRN PRN Reason: Moderate Pain 4-6 Last Admin: 05/09/20 20:58 Dose: 100 mg Tramadol HCl (Ultram) 50 mg PO Q12H PRN PRN Reason: Mild Pain 1-3 Vital Signs & Weight: Vital Signs Temp Pulse Resp BP BP Pulse Ox 05/16/20 07:53 97.5 F L 82 20 157/74 H 92 L 05/16/20 07:15 69 20 05/16/20 03:20 98.1 F 83 18 164/79 H 97 05/16/20 01:09 86 22 H 97 05/16/20 00:35 95 Admit Weight 193 lb Weight 197 lb 1.6 oz I/O: I/O 05/15/20 05/16/20 05/17/20 06:59 06:59 06:59 Intake Total 1275 1340 Output Total 2475 425 Balance -1200 915 - Quality Measures Condition: Atrial Fibrillation/Flutter (hx or current) - Medication Contraindications No Anticoagulant reason: Medical contraindication (a/c anemia) - Physical Exam General: alert & oriented x3, appears well, no apparent distress, speech clear, affect appropriate HEENT: mucus membranes moist, normocephaly Neck: supple neck, no JVD/HJR, no lymphadenopathy Cardiology: regular rate and rhythm, no murmur, PMI nondisplaced Lungs: clear to auscultation, normal breath sounds, no wheeze, rales, rhonchi Neurology: cranial nerve 2-12 intact, grossly intact, no lateralizing findings Abdomen: unremarkable, active bowel sounds, no pulsations/bruits Extremities: dry, strong pulses, warm - Labs Result Diagrams: 05/16/20 03:28 05/16/20 03:28 - EKG Interpretation EKG Method: Telemetry EKG shows: Sinus rhythm - Assessment/Plan Assessment/Plan: IMPRESSION: 1. History of persistent atrial fibrillation with prior ablation, requiring Tikosyn for suppression. 2. Acute on chronic kidney injury with creatinine clearance of 16 based on recent creatinine. 3. History of gastrointestinal bleed, 4. History of preserved left ventricular ejection fraction, 60% to 65%. 5. Chronic obstructive pulmonary disease. 6. Hypertension. 7. Status post septic hip revision. 8. Status post Watchman, still requiring coil closure to address 2 small leads Maintaining SR. Occasional PAT runs with abberant conduction seen on tele (05/06 ). Will watch for sustained recurrence of AF. Has a history of GIB with GI evaluation/consult last in August 2019, where they had suspicion for bleeding AVMs, + FOCB/ guiac this visit. EGD was done and no bleeding source was identified. GI voiced concern over hemolysis. Discussed with Dr Kuhn. This is not unlikely due to the small size of the watchman leaks and would not account for the amount of blood transfusion he has recently required. Hemolysis could be ruled out/confirmed with a peripheral smear. He still requires closure of his watchman leaks. Dr Kuhn will be here Saturday and we will plan for radiofrequency closure as an inpatient on that day if he is still hospitalized. Ideally he would be able to be anticoagulated post closure but his ongoing anemia makes anticoagulation more likely to cause harm than emoblization.
--- NOTE | 2020-05-16 12:49 | PRG ---
DATE OF SERVICE: 05/16/2020 SUBJECTIVE: This is an 79-year-old gentleman being seen for acute kidney injury. The patient denied nausea, vomiting, or chest pain. OBJECTIVE: GENERAL: On exam, the patient is awake and alert. VITAL SIGNS: Afebrile, pulse 79, breathing at 16, and blood pressure 133/65. HEENT: Head normocephalic and atraumatic. Eyes intact, no ulcers. Nose intact, no ulcers. Ears intact, no ulcers. NECK: Supple. No JVD. CHEST: Symmetrical and clear. CARDIOVASCULAR: Shows S1 and S2, no rub, no murmur. GASTROINTESTINAL: Abdomen is soft, bowel sounds positive. EXTREMITIES: Show no edema or ulcers. SKIN: Shows no rash or petechiae. MUSCULOSKELETAL: Shows no joint swelling or stiffness. GENITOURINARY: Shows no De or CVA tenderness. NEUROLOGIC: Motor intact. Cranial nerves intact. LABORATORY DATA: Hemoglobin 7.6. Creatinine 2.0. ASSESSMENT AND PLAN: 1. Acute kidney injury with chronic kidney injury, stage 3, stable. 2. Hypertension, stable. 3. Anemia. Recommend transfusion. 4. Medications based on GFR are appropriate. Job ID: [id number]
[2020-05-16 14:31] LABS: Vancomycin, Trough 10.9 ug/mL
[2020-05-16] MEDS: Vancomycin HCl 500 MG in Sodium Chloride 0.9% 100 ML IVPB SCH (15:01)
[2020-05-16] MEDS ORDERED: Vancomycin HCl 250 MG in Sodium Chloride 0.9% 100 ML IVPB SCH (16:00)
--- NOTE | 2020-05-16 16:22 | DIS ---
DATE OF ADMISSION: 05/03/2020 DATE OF DISCHARGE: 05/16/2020 DISCHARGE DISPOSITION: To inpatient rehabilitation. FOLLOWUP: 1. Follow up with primary care physician, Dr. Gabriel Mary as scheduled. 2. Follow up with Orthopedic in 2 to 3 weeks. DISCHARGE MEDICATION: Tikosyn was discontinued. He will be on aspirin 81 mg twice daily for DVT prophylaxis per protocol. He will be on vancomycin until August 04 along with doxycycline 100 mg b.i.d. After August 04, he needs to be on doxycycline 100 mg b.i.d. along with Bactrim dose adjusted for renal function for 3 months. After completion of this, the patient needs to be 100 mg doxycycline twice daily indefinitely. The patient was seen and examined on the day of discharge. Please refer to the progress notes for detail. PRIMARY ATTENDING SERVICE: Orthopedic service. CONSULTING SERVICE: 1. Hospitalist. 2. Electrophysiology. 3. Nephrology. 4. Gastroenterology. BRIEF HOSPITAL COURSE: 1. The patient is an 79-year-old male with left hip infection, underwent removal of the cemented hip prosthesis along with bipolar hemiarthroplasty of the left hip on May 03, 2020. Hospitalist Team was consulted for medical management. His workup was consistent with acute kidney injury on chronic kidney disease stage 4. Torsemide and losartan were held. His creatinine was 4.43, that improved to 2.08 after holding diuretics. He has been started gently on Lasix 40 mg daily per Nephrology. Renal ultrasound was negative for obstructive uropathy. It showed left renal cyst. De catheter has been discontinued. He will benefit from monitoring postvoid residual due to history of urinary retention in the past. 2. The patient also was found to have significant anemia. He received total of 5 units of PRBC this admission. Due to persistent anemia, he was evaluated by Gastroenterology. He underwent EGD on May 13, 2020, that showed small erosions in the antrum with red spots, which were nonbleeding. These were cauterized. There was also mild nodular gastritis. He was placed on 40 IV Protonix. We will continue IV Protonix at discharge for 1 week. This can be changed to p.o. after 1 week. 3. The patient also has a history of COPD and is on home oxygen. His COPD remained stable. He was receiving his home nebulizer treatments. 4. Due to acute kidney injury, Tikosyn was discontinued. Electrophysiology was consulted for assistance with this. He was monitored on telemetry. He did not have significant arrhythmias. Per Electrophysiology, Tikosyn has been completely discontinued. He has 2 small leaks and will require coil closure. He was advised to follow up with Electrophysiology as outpatient. FINAL DIAGNOSES: 1. Left hip infection, status post arthroplasty. Management per Primary Service. 2. Chronic diastolic heart failure, compensated. 3. Chronic obstructive pulmonary disease. 4. Chronic hypoxic respiratory failure, on 3-1/2 L O2 nasal cannula. 5. Obstructive sleep apnea, on CPAP. 6. Acute kidney injury on chronic kidney disease stage 4, significantly improved. His creatinine at discharge is 2.08. 7. Chronic anemia requiring 5 units of PRBC this admission. 8. Paroxysmal atrial fibrillation, status post Watchman device. He has michelle-Watchman leaks. 9. Benign prostatic hypertrophy. 10. History of urinary retention. The patient will benefit from postvoid residual monitoring. 11. Anxiety. 12. Chronic constipation. 13. Hyperlipidemia. Please note that Hospitalist Team was consulting service, primary attending was Orthopedics. Job ID: [id number]
[2020-05-16 16:41] VITALS: BP 144/71; TEMP 97.9
[2020-05-18] MEDS ORDERED: Vancomycin HCl 750 MG in Sodium Chloride 0.9% 250 ML 250 ML IVPB SCH (03:00)
--- NOTE | 2020-05-18 06:43 | PQF ---
CLINICAL DOCUMENTATION CLARIFICATION FORM: Dear : Alf Rosales Date / Time: 05/18/20 0641 Please exercise your independent, professional judgment in responding to the clarification form. Clinical indicators are provided on the bottom of this form for your review Please check appropriate box(es): [ x ] Sepsis due to Infected Hip prosthesis [ ] Localized infection without sepsis [ ] Other diagnosis [ ] Unable to determine In addition, please specify: Present on Admission (POA): [ x ] Yes [ ] No [ ] Unable to determine Physician Signature: Date/Time: For continuity of documentation, please document condition throughout progress notes and discharge summary. Thank You. To be completed by CDI/Coding staff for physician review: Present Clinical Indicators - Signs / Symptoms / Labs Results and Location in Medical Record [X] WBC 12.6, Plt count 512, Neutrophils 91.1 Laboratory Hematology 05/03 [X] BP 107/55, Pulse 84, Resp 22. Temp 97.9 Vital signs 05/03 [X] Wound culture: Negative Microbiology 7 [X] Left hip infection prosthesis H&P p7 05/03 Dr Rosales [X] Chronic Hypoxic Resp failure H&P p7 05/03 Dr Rosales [X] NNEKA H&P p7 05/03 Dr Rosales Present Risk Factors Results and Location in Medical Record [X] 79 year-old Male H&P p1 05/03 Dr Rosales [X] HTN H&P p5 05/03 Dr Rosales [X] CHF H&P p5 05/03 Dr Rosales [X] CKD 4 H&P p5 05/03 Dr Rosales [X] Former smoker H&P p6 05/03 Dr Rosales [X] Left hip infection prosthesis H&P p7 05/03 Dr Rosales Present Treatments Results and Location in Medical Record [X] IV Vancomycin 1 gm DEC 25 [X] IVF NS 1L DEC 25 [X] IV Cefazolin 2 gm DEC 25 [X] Oxygen 5L Respiratory Panel 05/03 [X] Revision of Left Hip prosthesis Operative report p Dr Salamanca [X] Hip X-ray Imaging 05/03 Dr Joaquin [X] ID consult Consult Gurvinder Mulligan 05/05 CDS/Mesh Cutter Signature: Kiki Watsonmichelle Phone #: [phone] Date/Time: 05/18/20 0641 This is a permanent part of the Medical Record [facility]
== END 2020-05-16 17:45 | DRG 466 ==
LOC: SDC 11:53 → 2NO 20:17 → SURG A 05-05 13:52 → 2NO 05-06 14:06
PROVIDERS: ADMIT Orthopaedic Surgery; ATTEND Orthopaedic Surgery
PROC: 0SRS0J9 Replacement of Left Hip Joint, Femoral Surface with Synthetic Substitute, Cemented, Open Approach (ICD-10-PCS; principal; 2020-05-03)
PROC: 0SPS0JZ Removal of Synthetic Substitute from Left Hip Joint, Femoral Surface, Open Approach (ICD-10-PCS; 2020-05-03)
PROC: 30233N1 Transfusion of Nonautologous Red Blood Cells into Peripheral Vein, Percutaneous Approach (ICD-10-PCS; 2020-05-03)
PROC: B518ZZA Fluoroscopy of Superior Vena Cava, Guidance (ICD-10-PCS; 2020-05-04)
PROC: 02HV33Z Insertion of Infusion Device into Superior Vena Cava, Percutaneous Approach (ICD-10-PCS; 2020-05-04)
PROC: B548ZZA Ultrasonography of Superior Vena Cava, Guidance (ICD-10-PCS; 2020-05-04)
PROC: 0T9B70Z Drainage of Bladder with Drainage Device, Via Natural or Artificial Opening (ICD-10-PCS; 2020-05-08)
PROC: 0DB68ZX Excision of Stomach, Via Natural or Artificial Opening Endoscopic, Diagnostic (ICD-10-PCS; 2020-05-13)
PROC: 0W3P8ZZ Control Bleeding in Gastrointestinal Tract, Via Natural or Artificial Opening Endoscopic (ICD-10-PCS; 2020-05-13)
DX: T84.52XA Infection and inflammatory reaction due to internal left hip prosthesis, initial encounter (principal); A41.9 Sepsis, unspecified organism; I50.32 Chronic diastolic (congestive) heart failure; J96.11 Chronic respiratory failure with hypoxia; N17.9 Acute kidney failure, unspecified; N18.4 Chronic kidney disease, stage 4 (severe); I13.0 Hypertensive heart and chronic kidney disease with heart failure and stage 1 through stage 4 chronic kidney disease, or unspecified chronic kidney disease; I48.19 Other persistent atrial fibrillation; T82.538A Leakage of other cardiac and vascular devices and implants, initial encounter; Z11.59 Encounter for screening for other viral diseases; J44.9 Chronic obstructive pulmonary disease, unspecified; G47.33 Obstructive sleep apnea (adult) (pediatric); D63.1 Anemia in chronic kidney disease; I48.0 Paroxysmal atrial fibrillation; N40.0 Benign prostatic hyperplasia without lower urinary tract symptoms; F41.9 Anxiety disorder, unspecified; K59.09 Other constipation; E78.5 Hyperlipidemia, unspecified; K25.9 Gastric ulcer, unspecified as acute or chronic, without hemorrhage or perforation; K29.70 Gastritis, unspecified, without bleeding; K31.819 Angiodysplasia of stomach and duodenum without bleeding; G89.4 Chronic pain syndrome; E87.6 Hypokalemia; E83.41 Hypermagnesemia; R33.9 Retention of urine, unspecified; Z99.81 Dependence on supplemental oxygen; Z87.891 Personal history of nicotine dependence; Z79.51 Long term (current) use of inhaled steroids; Z79.899 Other long term (current) drug therapy; Z79.52 Long term (current) use of systemic steroids; Z79.82 Long term (current) use of aspirin; Y83.1 Surgical operation with implant of artificial internal device as the cause of abnormal reaction of the patient, or of later complication, without mention of misadventure at the time of the procedure
CPT/HCPCS: 36415; 36430; 36569; 71045; 76770; 80048; 80053; 80069; 80202; 81001; 82274; 82728; 83540; 83550; 83735; 83935; 84300; 84484; 85025; 85027; 85046; 86850; 86870; 86900; 86901; 86922; 87070; 87186; 87205; 87635; 88305; 88312; C1751; C1776; C9113; J0690; J1720; J1940; J2001; J2250; J2370; J2704; J2916; J3010; J3260; J3370; J3490; J7050; J7070; J7512; J7620; J8499; P9016; P9045; P9047; Q0163; Q5105; U0003

== ENCOUNTER 2020-05-20 11:04 | Observation (INO) | payer MEDICARE, BC ==
[~2020-05-20 11:04] MED LIST changes: -Iopamidol 200 41% 50 ML VIAL FS ONE; +Ondansetron PF 4 MG/2 ML Vial ONE; +PROPOFOL 200 MG/20 ML VIAL ONE; +Rocuronium Bromide 10 MG/ML (10ML VIAL) ONE
[2020-05-20] MEDS ORDERED: Iopamidol 370 76% 100 ML VIAL ONE (11:31)
[2020-05-20] MEDS ORDERED: Fentanyl 100 MCG/2 ML VIAL ONE ×4 (11:56→19:39)
[2020-05-20] MEDS ORDERED: Hydrocortisone Sod Succ/PF 100 mg/2 ml Vial ONE (13:03)
[2020-05-20] MEDS ORDERED: SUGAMMADEX SODIUM 200 MG/2 ML VIAL ONE (13:05)
[2020-05-20] MEDS ORDERED: Heparin 10,000 UNITS/1 ML VIAL ONE (13:31)
[2020-05-20] MEDS ORDERED: Protamine Sulfate 50 MG/5 ML VIAL ONE (14:17)
[2020-05-20] MEDS ORDERED: Ondansetron HCl/PF 4 MG/2 ML Vial IVP PRN (14:49)
[2020-05-20] MEDS ORDERED: Albuterol Sulfate 2.5 mg/3 ml Neb NEB PRN (21:00)
[2020-05-20] MEDS ORDERED: Atorvastatin Calcium 20 MG TAB PO SCH (21:00)
[2020-05-20 22:08] VITALS: BMI 30.7
--- NOTE | 2020-05-20 22:14 | HP ---
CHIEF COMPLAINT: Observation after an ablation by Dr. Kuhn. PRIMARY CARE PHYSICIAN: Dr. Mary. HISTORY OF PRESENT ILLNESS: Mr. Mart is -[id number] who presented from observation after an ablation for a leaky Watchman device. He underwent the procedure today and will need observation overnight and hopefully will go back to the rehab in the morning. He has had multiple left hip surgeries this year, and has developed an infection in that joint and he has a PICC line and is getting IV antibiotics and is over at the rehab to help with PT and getting his strength back. Dr. Kuhn did the procedure today and then requested that the hospitalist service admit him for observation. He has a past medical history pertinent for an atrial fibrillation, he had the ablation today. He does have a Watchman that was leaking, CHF, hypertension, hyperlipidemia, COPD, sleep apnea, anemia of chronic disease, chronic renal insufficiency, and BPH. Surgical history, he has had a total left hip replacement with revision x3, first initial procedure was in January. He also had a Watchman placed. FAMILY HISTORY: Reports CVA, diabetes, and hypertension. SOCIAL HISTORY: The patient was seen in the recovery room as he is waiting for a bed. He denies any complaints other than left hip pain whenever he moves it. He says that when he does not move it that does not hurt. He denied any chest pain, shortness of breath worse than normal, abdominal pain, nausea, or vomiting. He does have some lower leg edema, which is not necessarily new, but worse in the last couple of days per his . He will be admitted to the telemetry unit for observation. REVIEW OF SYSTEMS: He has some difficulty hearing without hearing aids. He denies a cough, shortness of breath with exertion, or wheezing. Denies any chest pain or palpitations. He denies any abdominal pain, nausea, or vomiting. All systems are reviewed and are negative unless mentioned in HPI. PAST MEDICAL HISTORY: Please see HPI. PAST SURGICAL HISTORY: Total left hip with several revisions, Watchman device. SOCIAL HISTORY: He lives with his normally, but he is currently at the rehab recovering with this left hip and revision and infection. PHYSICAL EXAMINATION: GENERAL: He is awake and alert, but goes to sleep pretty easily being postop from anesthesia. He is in no acute distress. HEENT: Eyes, his pupils are equally round and reactive to light. ENT, mouth exam is normal. Mucous membranes are moist. NECK: Supple. HEART: Irregularly irregular. RESPIRATORY/CHEST: Breath sounds are clear. There is no wheezing. GASTROINTESTINAL: Soft and nontender. EXTREMITIES: 2+ edema bilaterally. Pedal pulses are intact. PSYCHIATRIC: Has a normal affect. He is A and O x3. PLAN/ASSESSMENT: 1. The patient had an ablation for the atrial fibrillation and the leaky Watchman device. We will observe overnight. Restart his home medications. 2. Left hip infection. He has a PICC line in the left upper extremity. We have asked for his vancomycin to be restarted and managed by pharmacy. We will restart his doxycycline. 3. Chronic diastolic heart failure. We will restart his Lasix. This appears stable. 4. Chronic obstructive pulmonary disease. This appears stable. We will restart his normal home respiratory medications. 5. History of chronic hypoxic respiratory failure, is normally on O2 at home. We will continue this. He also has a little obstructive sleep apnea and we will restart his CPAP while he is here. 6. Acute kidney injury on chronic kidney disease stage 4. He is on Lasix and we will avoid any extra nephrotoxic drugs and monitor this. Check his labs in a.m. 7. Chronic anemia. This appears stable. We will recheck in a.m. 8. BPH. We will restart his Flomax. 9. Deep venous thrombosis and gastrointestinal prophylaxis started. 10. Case discussed with Dr. Strauss, who agrees with plan. 11. The patient should go back to the rehab tomorrow if there are no overnight events. Job ID: [id number]
[2020-05-20] MEDS: Furosemide 40 MG TAB PO SCH (22:21)
[2020-05-20] MEDS: Gabapentin 100 MG CAP PO SCH (22:21)
[2020-05-20] MEDS: Acetaminophen 500 MG TAB PO SCH (22:21)
[2020-05-20] MEDS: Ascorbic Acid 500 mg Chewable Tablet PO SCH (22:21)
[2020-05-20] MEDS: Doxycycline 100 MG CAP PO SCH (22:21)
[2020-05-20] MEDS: Aspirin 81 mg Enteric Coated Tablet PO SCH (22:21)
[2020-05-20] MEDS: Senokot S 8.6-50 MG TAB PO SCH (22:22)
--- NOTE | 2020-05-20 22:35 | OP ---
DATE OF PROCEDURE: 05/20/2020 PROCEDURES PERFORMED: 1. Comprehensive EP testing with left atrial mapping and angiography. 2. Intracardiac echo placed in a left atrium. CLINICAL INDICATION: Chronic Watchman leak. ASA CLASSIFICATION: III. ANESTHESIA: General endotracheal anesthesia per Anesthesiology. ADDITIONAL CARDIAC MEDICATIONS: None. ESTIMATED BLOOD LOSS: Less than 10 mL. TOTAL FLUOROSCOPY TIME: 12.2 minutes. ACUTE COMPLICATIONS: None apparent. METHOD: After informed consent was obtained, the patient was taken to the EP lab in a fasting state. Right groin was prepped and draped. Using ultrasound guidance, the right femoral vein was accessed and two 8-[place] sheaths were placed into the right femoral vein. These sheaths were replaced by long sheath for catheter stability. The patient underwent transseptal catheterization x2 and using these access points, both sheaths were placed in the left atrium. Intracardiac echo was placed in the left atrium for imaging of the Watchman to localize the leak. The patient was found to have one residual Watchman leak on the Coumadin ridge side. Radiofrequency current was applied with an open irrigated ablation catheter, which ultimately eliminated all flow past the Watchman. This was confirmed with angiography and ultrasound. At the conclusion of the procedure, catheters were withdrawn. Heparin was reversed. Sheaths were pulled. Hemostasis was achieved with suture and collagen closure. RESULTS: Watchman status. The patient had a chronic Watchman leak, previously coiled to address leaks. One of the previous leaks had resulted due to coiling, one remains patent, confirmed with angiography. Ablation was delivered at the mouth of this leak in a crescent fashion. After the final ablation lesion, repeat angiography showed no residual leak. IMPRESSION: Successful acute closure of a chronic Watchman leak with radiofrequency current. RECOMMENDATION: 23-hour observation. Job ID: [id number]
[2020-05-20] MEDS ORDERED: Vancomycin 1.5 GRAM/300 ML BAG 1.5 GM in Premix Bag 1 BAG IVPB SCH (23:15)
[2020-05-20] MEDS ORDERED: Vancomycin HCl 750 MG in Sodium Chloride 0.9% 250 ML 250 ML IVPB SCH (23:30)
[2020-05-21 05:01] LABS: #Lymphocytes 0.7 thou/uL (1.20-3.40); #Monocytes 0.8 thou/uL (0.11-0.59); #Neutrophils 7.8 thou/uL (1.40-6.50); %Basophils 0.1 % (0.0-1.0); %Eosinophils 0.2 % (0.0-10.0); %Lymphocytes 7.9 % (21.0-51.0); %Monocytes 8.6 % (0.0-10.0); %Neutrophils 83.2 % (42.0-75.0); Anion Gap 13 mmol/L (10-20); BUN (Urea Nitrogen) 58 mg/dL (8.4-25.7); Calc. Creatinine Clearance 35 mL/min (70-130); Calcium 7.8 mg/dL (7.8-10.44); Carbon Dioxide 26 mmol/L (23-31); Chloride 106 mmol/L (98-107); Estimated GFR-MDRD 28; Glucose 110 mg/dL (83-110); Hemoglobin 7.2 g/dL (14.0-18.0); Mean Corpuscular HGB CONC 29.8 g/dL (32.0-36.0); Mean Corpuscular Hemoglobin 27.8 pg (27.0-31.0); Mean Corpuscular Volume 93.4 fL (78.0-98.0); Mean Platelet Volume 8.3 fL (7.4-10.4); Platelet Count 325 thou/uL (130-400); Potassium 4.6 mmol/L (3.5-5.1); Sodium 140 mmol/L (136-145); White Blood Cell (WBC) Count 9.3 thou/uL (4.8-10.8)
[2020-05-21] MEDS ORDERED: Mometasone 200 MCG/Formoterol 5 MCG 120 PUFF INHALER INH SCH (06:30)
[2020-05-21] MEDS: Acetaminophen 500 MG TAB PO SCH ×2 (08:54→15:42)
[2020-05-21] MEDS: Ascorbic Acid 500 mg Chewable Tablet PO SCH (08:55)
[2020-05-21] MEDS: Gabapentin 100 MG CAP PO SCH (08:55)
[2020-05-21] MEDS: Doxycycline 100 MG CAP PO SCH (08:55)
[2020-05-21] MEDS: Aspirin 81 mg Enteric Coated Tablet PO SCH (08:55)
[2020-05-21] MEDS: Senokot S 8.6-50 MG TAB PO SCH (08:55)
[2020-05-21] MEDS: Furosemide 40 MG TAB PO SCH (08:55)
[2020-05-21] MEDS ORDERED: predniSONE 20 MG TAB PO SCH (09:00)
[2020-05-21] MEDS ORDERED: Fluticasone Propionate Nasal Spray 16 gm Bottle NASAL SCH (09:00)
[2020-05-21] MEDS ORDERED: Lidocaine 5% Patch TD SCH ×2 (09:00)
[2020-05-21] MEDS ORDERED: Polyethylene Glycol 3350 17 GM Packet PO SCH (09:00)
[2020-05-21] MEDS ORDERED: Multivit, Therapeutic 1 TAB PO SCH (09:00)
[2020-05-21] MEDS ORDERED: Folic Acid 1 MG TAB PO SCH (09:00)
[2020-05-21] MEDS ORDERED: Tamsulosin HCl 0.4 MG CAP PO SCH (09:00)
--- NOTE | 2020-05-21 10:38 | PDOC.EP ---
- Subjective Date: 05/21/20 Time: 10:34 Interval History: Follow up after ablation closure of periwatchman leaks. Mr Mart feels well. His catheter was removed and he feels he is voiding adequately. He has no pain at his groin access site. He is breathing fine with no worsening shortness of breath. He still struggles with peripheral edema. - Review of Systems Respiratory: denies: cough, sputum, wheezing Cardiology: denies: chest pain, heart racing, palpitations, passing out Gastrointestinal: denies: abdominal pain, constipation, diarrhea, nausea, vomitting - Objective Allergies/Adverse Reactions: Allergies Allergy/AdvReac Type Severity Reaction Status Date / Time adhesive AdvReac Verified 04/28/20 13:42 Current Medications Acetaminophen (Tylenol) 500 mg PO TID [facility] Last Admin: 05/21/20 08:54 Dose: 500 mg Albuterol Sulfate (Ventolin) 2.5 mg NEB Q6H PRN PRN Reason: SOB &/or Wheezing Ascorbic Acid (Vitamin C) 500 mg PO BID [facility] Last Admin: 05/21/20 08:55 Dose: 500 mg Aspirin (Ecotrin) 81 mg PO BID [facility] Last Admin: 05/21/20 08:55 Dose: 81 mg Atorvastatin Calcium (Lipitor) 20 mg PO HS [facility] Last Admin: 05/20/20 22:21 Dose: 20 mg Doxycycline Hyclate (Vibramycin) 100 mg PO Q12HR [facility] Last Admin: 05/21/20 08:55 Dose: 100 mg Fluticasone Propionate (Flonase Nasal [place]) 0 gm NASAL DAILY [facility] Folic Acid (Folvite) 1 mg PO DAILY [facility] Last Admin: 05/21/20 08:55 Dose: 1 mg Furosemide (Lasix) 40 mg PO BID [facility] Last Admin: 05/21/20 08:55 Dose: 40 mg Gabapentin (Neurontin) 100 mg PO BID [facility] Last Admin: 05/21/20 08:55 Dose: 100 mg Vancomycin HCl 750 mg/ Sodium (Chloride) 250 mls @ 250 mls/hr IVPB .DOSE BY LEVELS [facility] Lidocaine (Lidoderm 5% Patch) 1 patch TD DAILY [facility] Last Admin: 05/21/20 08:56 Dose: 1 patch Miscellaneous Medication (Pharmacy To Dose) 1 each IVPB PRN PRN PRN Reason: Pharmacy to dose Miscellaneous Medication (Lidocaine Patch Removal) 1 each TOP HS [facility] Mometasone Furoate/Formoterol Fumar (Dulera 200 Mcg/5 Mcg Inhaler) 2 puff INH BID-RT [facility] Last Admin: 05/21/20 07:14 Dose: 2 puff Multivitamins (Theragran) 1 tab PO DAILY [facility] Last Admin: 05/21/20 08:55 Dose: 1 tab Pantoprazole Sodium (Protonix) 40 mg PO BID [facility] Last Admin: 05/21/20 08:55 Dose: 40 mg Polyethylene Glycol (Miralax) 17 gm PO DAILY [facility] Last Admin: 05/21/20 08:55 Dose: Not Given Prednisone (Prednisone) 20 mg PO DAILY [facility] Last Admin: 05/21/20 08:55 Dose: 20 mg Senna/Docusate Sodium (Senokot S) 2 tab PO BID [facility] Last Admin: 05/21/20 08:55 Dose: 2 tab Sertraline HCl (Zoloft) 50 mg PO [facility] Last Admin: 05/20/20 22:21 Dose: 50 mg Tamsulosin HCl (Flomax) 0.4 mg PO DAILY [facility] Last Admin: 05/21/20 08:55 Dose: 0.4 mg Vital Signs & Weight: Vital Signs Temp Pulse Resp BP BP Pulse Ox 05/21/20 07:43 98.3 F 88 17 135/60 96 05/21/20 04:37 98.7 F 85 18 136/71 99 Weight 210 lb 6.4 oz - Quality Measures Condition: Atrial Fibrillation/Flutter (hx or current) CV meds: Aspirin: Yes - Medication Contraindications No Anticoagulant reason: Treatment not indicated - Physical Exam General: alert & oriented x3, appears well, no apparent distress, speech clear, affect appropriate HEENT: mucus membranes moist, normocephaly Neck: supple neck, midline trachea, no JVD/HJR, no masses, no bruit, no lymphadenopathy, no thromegaly Cardiology: regular rate and rhythm, PMI nondisplaced Lungs: clear to auscultation, no wheeze, rales, rhonchi Neurology: cranial nerve 2-12 intact, no lateralizing findings Extremities: dry, strong pulses, warm, + edema B Skin: groin sites stable - Labs Result Diagrams: 05/21/20 04:14 05/21/20 04:14 - EKG Interpretation EKG Method: Telemetry EKG shows: Sinus rhythm (occasional PVCs) - Assessment/Plan Assessment/Plan: 1. s/p Watchman for left atrial appendage closure - s/p coil closure in August 2019 with persisting leaks - s/p radiofrequency closure of 1 small remaining leak on 05/20. The 2nd leak had closed since Nov. 2. diastolic HF, well compensated this stay 3. COPD 4. Left hip infection s/p ORIF d/t fracture - [place] remain in place. Patient voices he thinks they were supposed to come out Saturday. Relayed to RN who will contact ortho prior to DC. Stable after procedure yesterday. No bleeding issue at groin site. OK for DC. Will follow up in 6 weeks. Pt has [facility] contact# for any questions/concerns as they arise.
--- NOTE | 2020-05-21 11:37 | PDOC.HOSPP ---
- Subjective Encounter Date: 05/21/20 Encounter Time: 11:35 Subjective: Mr. Mart was seen today in follow-up of aftrial fibrillation s/p ablation. He does not have any complaints. He says he feels fine. - Objective Vital Signs & Weight: Vital Signs (12 hours) Temp Pulse Resp BP BP Pulse Ox 05/21/20 07:43 98.3 F 88 17 135/60 96 05/21/20 04:37 98.7 F 85 18 136/71 99 Weight Weight 210 lb 6.4 oz Result Diagrams: 05/21/20 04:14 05/21/20 04:14 Hospitalist ROS - Medication Medications: Active Medications Generic Name Dose Route Start Last Admin Trade Name Freq PRN Reason Stop Dose Admin Acetaminophen 500 mg 05/20/20 21:00 05/21/20 08:54 Tylenol PO 500 mg TID SHORTY Administration Ascorbic Acid 500 mg 05/20/20 21:00 05/21/20 08:55 Vitamin C PO 500 mg BID SHORTY Administration Aspirin 81 mg 05/20/20 21:00 05/21/20 08:55 Ecotrin PO 81 mg BID SHORTY Administration Atorvastatin Calcium 20 mg 05/20/20 21:00 05/20/20 22:21 Lipitor PO 20 mg HS SHORTY Administration Doxycycline Hyclate 100 mg 05/20/20 21:00 05/21/20 08:55 Vibramycin PO 100 mg Q12HR SHORTY Administration Fluticasone Propionate 0 gm 05/21/20 09:00 05/21/20 10:41 Flonase Nasal [place] NASAL 1 spr DAILY SHORTY Administration Folic Acid 1 mg 05/21/20 09:00 05/21/20 08:55 Folvite PO 1 mg DAILY SHORTY Administration Furosemide 40 mg 05/20/20 21:00 05/21/20 08:55 Lasix PO 40 mg BID SHORTY Administration Gabapentin 100 mg 05/20/20 21:00 05/21/20 08:55 Neurontin PO 100 mg BID SHORTY Administration Lidocaine 1 patch 05/21/20 09:00 05/21/20 08:56 Lidoderm 5% Patch TD 1 patch DAILY SHORTY Administration Mometasone Furoate/Formoterol Fumar 2 puff 05/21/20 06:30 05/21/20 07:14 Dulera 200 Mcg/5 Mcg Inhaler INH 2 puff BID-RT SHORTY Administration Multivitamins 1 tab 05/21/20 09:00 05/21/20 08:55 Theragran PO 1 tab DAILY SHORTY Administration Pantoprazole Sodium 40 mg 05/20/20 21:00 05/21/20 08:55 Protonix PO 40 mg BID SHORTY Administration Polyethylene Glycol 17 gm 05/21/20 09:00 05/21/20 08:55 Miralax PO Not Given DAILY SHORTY Prednisone 20 mg 05/21/20 09:00 05/21/20 08:55 Prednisone PO 20 mg DAILY SHORTY Administration Senna/Docusate Sodium 2 tab 05/20/20 21:00 05/21/20 08:55 Senokot S PO 2 tab BID SHORTY Administration Sertraline HCl 50 mg 05/20/20 21:00 05/20/20 22:21 Zoloft PO 50 mg HS SHORTY Administration Tamsulosin HCl 0.4 mg 05/21/20 09:00 05/21/20 08:55 Flomax PO 0.4 mg DAILY SHORTY Administration - Exam Eye: PERRL, anicteric sclera Heart: RRR, no murmur, no gallops, no rubs, normal peripheral pulses Respiratory: CTAB, no wheezes, no rales, no ronchi, normal chest expansion, no tachypnea Gastrointestinal: soft, non-tender, non-distended, normal bowel sounds Extremities: 2+ LE edema (+ pitting edema in both lower extremities) Hosp A/P (1) Atrial fibrillation Code(s): I48.91 - UNSPECIFIED ATRIAL FIBRILLATION Status: Chronic Qualifiers: Atrial fibrillation type: unspecified Qualified Code(s): I48.91 - Unspecified atrial fibrillation (2) COPD exacerbation Code(s): J44.1 - CHRONIC OBSTRUCTIVE PULMONARY DISEASE W (ACUTE) EXACERBATION Status: Acute (3) BPH (benign prostatic hyperplasia) Code(s): N40.0 - BENIGN PROSTATIC HYPERPLASIA WITHOUT LOWER URINRY TRACT SYMP Status: Chronic Qualifiers: Lower urinary tract symptom presence: symptoms absent Qualified Code(s): N40.0 - Benign prostatic hyperplasia without lower urinary tract symptoms (4) CKD (chronic kidney disease) stage 3, GFR 30-59 ml/min Code(s): N18.3 - CHRONIC KIDNEY DISEASE, STAGE 3 (MODERATE) Status: Chronic (5) HTN (hypertension) Code(s): I10 - ESSENTIAL (PRIMARY) HYPERTENSION Status: Chronic Qualifiers: Hypertension type: essential hypertension Qualified Code(s): I10 - Essential (primary) hypertension (6) BRAD (obstructive sleep apnea) Code(s): G47.33 - OBSTRUCTIVE SLEEP APNEA (ADULT) (PEDIATRIC) Status: Chronic - Plan * AFIB- he is post ablation- and [id number] stable * Chronic kidney disease- stable * S/p Left hip replacement- stable * HTN- blood pressure is stable * Stable for discharge to rehab
[2020-05-21 15:30] VITALS: BP 134/70; TEMP 98.2
[2020-05-21] MEDS ORDERED: Lidocaine Patch Removal TOP SCH (21:00)
[2020-05-21] MEDS ORDERED: Vancomycin 1.5 GRAM/300 ML BAG 1.5 GM in Premix Bag 1 BAG IVPB SCH (23:00)
[2020-05-21] MEDS ORDERED: Vancomycin HCl 750 MG in Sodium Chloride 0.9% 250 ML 250 ML IVPB SCH (23:30)
--- NOTE | 2020-05-22 08:08 | DIS ---
DATE OF ADMISSION: 05/20/2020 DATE OF DISCHARGE: 05/21/2020 DISCHARGE DISPOSITION: To inpatient rehab. DISCHARGE DIAGNOSES: 1. Atrial fibrillation, status post ablation. 2. Diabetes mellitus, type 2. 3. Hypertension. DISCHARGE MEDICATIONS: Include, 1. Extra-strength Tylenol 500 mg t.i.d. 2. Albuterol inhaler 2 puffs q.6 as needed. 3. Lipitor 20 mg p.o. at bedtime. 4. Vitamin B12 of 1000 mcg p.o. daily. 5. Doxycycline 100 mg q.12. 6. Fluticasone nasal spray daily. 7. Lasix 40 mg twice a day. 8. Gabapentin 100 mg twice a day. 9. Lidoderm patch daily. 10. Multivitamins daily. 11. Protonix 40 mg twice a day. 12. MiraLAX 17 g daily. 13. Prednisone 20 mg daily. 14. Sertraline 50 mg at bedtime. 15. Vitamin C 500 mg twice a day. 16. Aspirin 81 mg daily. 17. Folic acid 1 mg daily. 18. Flomax 0.4 mg daily. 19. Docusate sodium two tablets twice a day. PROCEDURES DONE: The patient had an electrophysiological testing with left atrial mapping and angiography, intracardiac echo placed into the left atrium, and correction of the leak from the Watchman device. HOSPITAL COURSE: Mr. Mart is a pleasant 79-year-old gentleman, who had a known history of atrial fibrillation as well as a development of a leak from his Watchman device. He was currently in rehab due to a femur fracture, but while he was here, Dr. Kuhn made a decision to go ahead and perform the ablation as well as to correct the leak in the Watchman device. This was done, and the patient tolerated the procedure well. He had no complications and was able to be transitioned back to inpatient rehab. The jacque from the femur fracture repair will be left in and taken out on the next week by the Orthopedic Surgery team and this was inquired about prior to his discharge back to rehab. Job ID: [id number]
== END 2020-05-21 16:52 ==
LOC: SDC 11:04 → SURG A 15:07 → 2NO 21:20
PROVIDERS: ADMIT Internal Medicine Cardiovascular Disease; ATTEND Internal Medicine
PROC: 4A023FZ Measurement of Cardiac Rhythm, Percutaneous Approach (ICD-10-PCS; principal; 2020-05-20)
PROC: 4A0234Z Measurement of Cardiac Electrical Activity, Percutaneous Approach (ICD-10-PCS; 2020-05-20)
PROC: 02K83ZZ Map Conduction Mechanism, Percutaneous Approach (ICD-10-PCS; 2020-05-20)
DX: T82.538A Leakage of other cardiac and vascular devices and implants, initial encounter (principal); I48.0 Paroxysmal atrial fibrillation; I13.0 Hypertensive heart and chronic kidney disease with heart failure and stage 1 through stage 4 chronic kidney disease, or unspecified chronic kidney disease; E11.22 Type 2 diabetes mellitus with diabetic chronic kidney disease; N18.4 Chronic kidney disease, stage 4 (severe); I50.32 Chronic diastolic (congestive) heart failure; D63.1 Anemia in chronic kidney disease; N17.9 Acute kidney failure, unspecified; J44.9 Chronic obstructive pulmonary disease, unspecified; N40.0 Benign prostatic hyperplasia without lower urinary tract symptoms; Z79.82 Long term (current) use of aspirin; Z79.899 Other long term (current) drug therapy; Z91.048 Other nonmedicinal substance allergy status
CPT/HCPCS: 76942; 80048; 85025; 93462; 93613; 93653; 93662; 94640; 94660; 94664; C1753; C1760; 36415; 96365; 96366; C1732; G0378; J1644; J1720; J2405; J2704; J2720; J3010; J3370; J7050; J7512; Q9967

== ENCOUNTER 2020-06-02 09:11 | Inpatient (IN) | payer MEDICARE, BC, OTHER ==
[~2020-06-02 09:11] MED LIST changes: +Heparin 1,000 UNITS/ML VIAL ONE; -Ondansetron PF 4 MG/2 ML Vial ONE; -PROPOFOL 200 MG/20 ML VIAL ONE; -Rocuronium Bromide 10 MG/ML (10ML VIAL) ONE
[2020-06-02] MEDS ORDERED: Heparin 1,000 UNITS/ML VIAL ONE (09:48)
[2020-06-02 10:15] LABS: Mean Corpuscular HGB CONC 30.1 g/dL (32.0-36.0); Mean Corpuscular Hemoglobin 26.8 pg (27.0-31.0); Mean Platelet Volume 8.4 fL (7.4-10.4); Platelet Count 323 thou/uL (130-400); RBC Distribution Width 17.4 % (11.5-14.5); Red Blood Cell (RBC) Count 3.35 mill/uL (4.70-6.10); White Blood Cell (WBC) Count 18.5 thou/uL (4.8-10.8)
--- NOTE | 2020-06-02 10:20 | RAD ---
LEFT HIP 2 VIEWS: HISTORY: Leg shortening. COMPARISON: 05/03/2020. FINDINGS: There is superolateral displacement of the left hip arthroplasty. This includes the femoral stem and acetabular component. Left obturator ring appears to be intact. IMPRESSION: Superolateral displaced left hip arthroplasty including the acetabular component and femoral stem. POS: [facility]
[2020-06-02 10:23] LABS: INR-International Normal Ratio 1.2; PTT 28.7 sec (22.9-36.1); Prothrombin Time 15.2 sec (12.0-14.7)
--- NOTE | 2020-06-02 10:23 | RAD ---
CHEST 1 VIEW: HISTORY: Injury from a fall, shortening of left leg, preoperative evaluation. COMPARISON: 05/04/2020. FINDINGS: Left PICC line in place. Coiling material overlying the left infrahilar region. Bone demineralizati on with evidence for bilateral healed rib fractures. No confluent pneumonia, overt edema, or pleural effusion. IMPRESSION: No significant acute process. Stable exam. POS: OFF
[2020-06-02 10:35] LABS: Band 16 % (5-11); Lymphocytes 4 % (21-51); MDiff Complete? YES; Metamyelocyte 1 % (0-0); Neutrophil 79 % (42-75)
[2020-06-02 10:38] LABS: ALT (SGPT) 17 U/L (8-55); AST (SGOT) 12 U/L (5-34); Albumin 3.2 g/dL (3.4-4.8); Alkaline Phosphatase 76 U/L (40-110); Anion Gap 13 mmol/L (10-20); BUN (Urea Nitrogen) 48 mg/dL (8.4-25.7); Bilirubin, Total 0.5 mg/dL (0.2-1.2); Calc. Creatinine Clearance 0 mL/min (70-130); Calcium 7.6 mg/dL (7.8-10.44); Carbon Dioxide 28 mmol/L (23-31); Chloride 104 mmol/L (98-107); Estimated GFR-MDRD 31; Globulin 1.7 g/dL (2.4-3.5); Glucose 84 mg/dL (83-110); Potassium 3.6 mmol/L (3.5-5.1); Protein, Total 4.9 g/dL (5.8-8.1); Sodium 141 mmol/L (136-145)
[2020-06-02] MEDS ORDERED: Ondansetron PF 4 MG/2 ML Vial ONE (10:41)
[2020-06-02] MEDS ORDERED: Morphine 2 MG/ML SYRINGE ONE (10:44)
[2020-06-02] MEDS ORDERED: Bisacodyl 10 MG SUPP PR PRN (10:54)
[2020-06-02] MEDS ORDERED: HYDROcodone/Acetaminophen 5/325 mg Tablet PO PRN (10:54)
[2020-06-02] MEDS ORDERED: Fentanyl 100 MCG/2 ML VIAL SLOW IVP PRN (10:54)
[2020-06-02] MEDS ORDERED: Promethazine HCl 25 MG/ML VIAL IM PRN (10:54)
[2020-06-02] MEDS ORDERED: Morphine 2 MG/ML VIAL SLOW IVP PRN (10:54)
[2020-06-02] MEDS ORDERED: Ondansetron PF 4 MG/2 ML Vial IV PRN (10:54)
[2020-06-02] MEDS ORDERED: traMADol HCl 50 MG TAB PO PRN ×2 (10:54)
[2020-06-02] MEDS ORDERED: Milk Of Magnesia 30 ML UDCUP PO PRN (10:54)
[2020-06-02] MEDS ORDERED: Acetaminophen 325 MG TAB PO PRN (10:54)
[2020-06-02 10:55] LABS: CKMB 1.8 ng/mL (0-6.6)
[2020-06-02] MEDS ORDERED: Vancomycin HCl 1 GM in Sodium Chloride 0.9% 250 ML 300 ML IVPB SCH (11:00)
[2020-06-02] MEDS ORDERED: Morphine 4 MG/ML VIAL ONE (12:28)
[2020-06-02 12:40] LABS: Bilirubin Negative (Negative); Blood, Urine Negative (Negative); Clarity Clear (Clear); Glucose, Urine (Dipstick) Normal (Negative); Ketone, Urine Negative (Negative); Leukocyte 500 Leu/uL (Negative); Nitrite Negative (Negative); Protein, Urine (Dipstick) 10 mg/dL (Neg-Trace); RBC/HPF 0-3 HPF (0-3); Specific Gravity, Urine 1.017 (1.002-1.036); Squamous Epithelial None Seen HPF (0-3); Urobilinogen Normal mg/dL (Less than 2); WBC/HPF 21-50 HPF (0-3)
[2020-06-02 12:50] LABS: Bacteria/HPF None Seen HPF (None Seen)
--- NOTE | 2020-06-02 13:04 | HP ---
HISTORY OF PRESENT ILLNESS: We were asked by the ER to see the patient. The patient had just gotten home a few days ago from a rehab skilled facility. He had had a hip revision on the left. He states during the night, he had some pain. Not sure if he had dislocated then, but when he got up in the morning, he was unable to walk and had significant left thigh pain and hip pain. The patient was unable to walk. His called EMS, and he is brought to the hospital. It is obvious looking at the patient, he is in a fair amount of distress, especially when he moved that left lower extremity, but it is also quite edematous. He has a fair amount of pitting edema down that leg, and over the incision, he has a bandage, but the area has a little bit increased warmth and tissue is quite taut. Incision site, a fair amount of erythema. The patient states he has not been sick or ill. He has been getting around fairly well. He is a little upset at the rehab facility he stayed at could not get more of that leg swelling down. He is also not so excited about being back to see us, but he is otherwise in a pleasant mood. He is able to move that left lower extremity. Sensations are okay bilaterally. PAST MEDICAL HISTORY: Positive for chronic kidney disease; AFib; hypertension; COPD, on O2 at home; sleep apnea; anemia; leaky valve. PAST SURGICAL HISTORY: Cardiac ablation. He has had a Watchman procedure. SOCIAL HISTORY: Lives at home with his and is very upset because he had just gotten home. No alcohol or nicotine currently. Former EtOH user and smoker. No drug use. ALLERGIES: NONE. MEDICATIONS: I have a list of his medications from his custodial. He is on, 1. Pantoprazole. 2. Vancomycin. 3. Dutasteride. 4. Sertraline. 5. Ascorbic acid. 6. Aspirin. 7. Cyanocobalamin. 8. Cyclobenzaprine. 9. Epoetin sun. 10. [place]. 11. Cipro. 12. Tylenol. 13. Albuterol ipratropium. 14. Docusate senna. 15. Polyethylene glycol. 16. Sucralfate. 17. Doxycycline. 18. Fluticasone. 19. Folic acid. 20. Formoterol mometasone. 21. Gabapentin. 22. Lidocaine topical. 23. Multivitamin with minerals. 24. Prednisone. 25. Rosuvastatin. 26. Saccharomyces boulardii lyo. 27. Tamsulosin. 28. Thyrotropin. ALLERGIES: NONE. SENSITIVITIES TO ADHESIVE BANDAGES. FAMILY HISTORY: For this visit is noncontributory. REVIEW OF SYSTEMS: Little bit short of breath. Moderate pain mostly in that left hip, thigh area. Rest of discussed review of systems is negative. PHYSICAL EXAMINATION: GENERAL: Well-nourished, very pleasant male, resting on a gurney in room 20, in the ER. Speech clear. Affect pleasant. Answers questions appropriately. Alert and oriented x3. HEENT: Scalp atraumatic. Face symmetric. Tongue midline. O2 in place. NECK: Supple. Trachea midline. EXTREMITIES: Upper extremities equal, size, shape, symmetry. Normal bulk and tone. He does have some drying skin and bruising to the hands and forearms. Otherwise, he is moving his digits well and sensations are intact. LUNGS: Respirations 16 and a little labored. ABDOMEN: Little protuberant, but nontender. PELVIS: No pain with rocking, except over that left hip area. Left hip is quite edematous and has some erythema over the incision site. The area is warm and area is also tender to palpation. He also has some pretty significant edema going down that left lower extremity. He has got good sensations to his feet. He is wiggling these well. DP and PT pulses are present bilaterally. ASSESSMENT: 1. Multiple health issues. 2. Dislocated left hip. PLAN: I spoke with the patient after I talked with Dr. Salamanca. If his hip is truly infected, plan would be for possible revision of hip with placement of an acetabulum socket to keep hip from dislocating. I explained to the patient, if hip is full of pus, I may still go with this process or we may have to take everything out and he would be without a hip. The patient is not too excited with the second part of this discussion and would like to keep the hip, so he can keep being active as possible. We understand this. I asked the patient to make sure that his comes in tomorrow, so we can discuss surgical options with her also. I think it is imperative that she be here. I let him know that due to this COVID pandemic, our rules have changed, but I think for her to be here during this decision-making process is very important. He understands the risks and benefits of surgery. We went over infection, bleeding, scar tissue, cardiac issues, pulmonary issues, blood clots, stroke. He understands these all quite well. He is amenable to go forth with surgery. Again, we will speak with the patient again tomorrow when his is present and re-go over options with the patient and . We will keep him n.p.o. after midnight. He has been added to the surgery schedule. He is already on antibiotics. I have consulted hospitalist and Dr. Beaver, who had seen him and is treating him for his infection and he does currently have a functional PICC line. Job ID: [id number]
[2020-06-02] MEDS ORDERED: Furosemide 40 MG/4 ML VIAL SLOW IVP SCH (15:45)
[2020-06-02] MEDS: HYDROcodone/Acetaminophen 5/325 mg Tablet PO PRN ×2 (17:37→21:52)
[2020-06-02] MEDS ORDERED: Vancomycin 1 GM in Premix Bag 1 BAG IVPB SCH (20:00)
--- NOTE | 2020-06-02 20:27 | CON ---
DATE OF CONSULTATION: 06/02/2020 HISTORY OF PRESENT ILLNESS: Mr. Mart unfortunately has been readmitted after rehab. He was home only two days when he developed severe pain in the left hip, was brought in and he is going to have a revision of the left hip arthroplasty tomorrow. There was a concern with the residual or persistent infection as well as displacement of the arthroplasty site. We had seen him in mid April when he presented with a history of BPH, atrial fibrillation, Watchman procedure, COPD, and a left femoral neck fracture at the beginning of January with hemiarthroplasty postop infection due to MRSA revision and then treated for the usual duration and then, he took some prednisone because of COPD exacerbation and then continued the rifampin and Bactrim for suppressive therapy and then, he developed recrudescence of inflammatory process in April and MRSA was retrieved again. Since, he was admitted and had an explantation of the joint and new implant placed, at this time, a bipolar hemiarthroplasty and now we have this development, shows pretty poor outcome compared with the usual experience. He denies any headaches. No visual symptoms, sore throat, odynophagia, or dysphagia. No dyspnea, cough, or chest pain. No abdominal pain. He has the urinary retention and has to self-catheterize once a day. PAST MEDICAL HISTORY: Includes chronic renal insufficiency, atrial fibrillation, hypertension, COPD on O2 at home, sleep apnea, anemia, and leaky valve, this was actually the Watchman procedure has been fixed. PAST SURGICAL HISTORY: Include cardiac ablation, multiple hip surgeries as above, and watchman procedure. SOCIAL HISTORY: Lives at home with . He is a former smoker, used to drink, but not any more. ALLERGIES: NONE. MEDICATIONS: He had been on vancomycin adjusted for renal function as well as doxycycline and he was intended to continue until mid July with treatment due to the resistance pattern of the MRSA, which was resistant to rifampin, unfortunately. PHYSICAL EXAMINATION: VITAL SIGNS: Showed temperature 98.7, BP 140/70, pulse 78, and respirations 16. GENERAL: Somewhat upset about development. SKIN: Shows the area of swelling and erythema of the left hip arthroplasty site. No drainage noted. He has a PICC line left upper extremity. Does not have De catheter at the moment. No lymphadenopathy. HEENT: Ocular movements conjugate. Oral cavity with numerous missing teeth. NECK: Supple. LUNGS: Symmetric clear breath sounds. HEART: S1 and S2. Regular rate without murmurs. ABDOMEN: Mildly distended. There is a bladder appears to be somewhat distended. There is no tenderness. No ascites. EXTREMITIES: No joint inflammatory activity outside the area of involvement in the left hip. The pulses are 1+ in dorsalis pedis. He has quite a bit of edema, I would say at least 3+ right and left lower extremities. LABORATORY STUDIES: Sodium 141 and creatinine 2.06. Liver profile normal. Troponin 0.059. CRP 0.72. Albumin 3.2. Urinalysis, 21 to 50 wbc's. White cell count 18.5, hemoglobin 9.0, platelets 323, and 16% bands. There is a chest x-ray from this morning with no acute process and there is a hip x-ray from today with a superolateral displaced left hip arthroplasty including the acetabular component and femoral stem. ASSESSMENT: Chronic kidney disease stage 3 to 4, atrial fibrillation, hypertension, chronic obstructive pulmonary disease on home O2, multiple left hip arthroplasty site complications following hip fracture with initially hemiarthroplasty and now more recently bipolar revision. The patient has had methicillin-resistant Staphylococcus aureus persistence at the site and now has developed this displacement, possible persistence of infection. DISCUSSION: The differential diagnosis includes persistence of MRSA infection since we were not able to use rifampin due to the susceptibility profile of the organism. The other possibility is a second primary infection for example hematogenous route from the urinary tract, in view of his need to self-catheterize and presence of urinary retention. We will follow up the results of the surgery. Continue vancomycin and doxycycline in the meantime, and adjust treatment accordingly. Job ID: [id number]
[2020-06-02] MEDS: Doxycycline 100 MG CAP PO SCH (20:47)
[2020-06-02] MEDS: Atorvastatin Calcium 20 MG TAB PO SCH (20:47)
[2020-06-02] MEDS: Aspirin 81 mg Enteric Coated Tablet PO SCH (20:47)
[2020-06-02] MEDS: Cipro 250 MG TAB PO SCH (20:47)
[2020-06-02] MEDS: Gabapentin 100 MG CAP PO SCH (20:47)
--- NOTE | 2020-06-03 00:47 | CON ---
DATE OF CONSULTATION: CHIEF COMPLAINT: Left hip pain. HISTORY OF PRESENT ILLNESS: The patient is an 79-year-old male with past medical history of chronic kidney disease, atrial fibrillation, hypertension, COPD, and obstructive sleep apnea, who was admitted by the Orthopedic surgery Service due to worsening pain involving his left hip. The patient has been dealing with recurrent infection involving his left hip over the past few months requiring several surgeries. He was recently discharged to rehab and was sent home a couple of days ago. The patient presented today with worsening hip pain. The patient was seen and examined on the surgical floor. He is complaining of bilateral lower extremity swelling that has been worsening over the past week. He also complains of some shortness of breath. Denies chest pain, palpitations, or dizziness. REVIEW OF SYSTEMS: Negative except as noted above. PAST MEDICAL HISTORY: As noted above. PAST SURGICAL HISTORY: Multiple hip surgeries, cardiac ablation, and Watchman procedure. PHYSICAL EXAMINATION: GENERAL: The patient is alert and oriented x3. HEENT: Head is normocephalic and atraumatic. Extraocular muscles are intact. NECK: Supple. CHEST: Auscultation reveals mild crackles bilaterally. CARDIOVASCULAR: Examination revealed normal S1, S2. No murmurs, rubs, or gallops. ABDOMEN: Soft, nontender, nondistended. EXTREMITIES: Lower extremities showed significant edema involving both lower extremities up to the hip area bilaterally. ASSESSMENT: 1. Recurrent infection of the left hip. 2. Exacerbation of congestive heart failure of unknown ejection fraction. 3. Chronic kidney disease. 4. Chronic anemia. PLAN: The patient has multiple risk factors based on revised cardiac risk index, including CHF, which is currently in exacerbation in addition to chronic kidney disease. We recommend optimizing the patient's cardiac condition prior to proceeding with surgical intervention. Recommend low-salt diet, 800 mL fluid restriction with low-salt diet, Lasix 40 mg IV twice daily, monitor intake and output, check echocardiogram, and consult the patient's earth science teacher, Dr. Gonzalez. Continue antibiotics per ID. Job ID: [id number]
[2020-06-03] MEDS: HYDROcodone/Acetaminophen 5/325 mg Tablet PO PRN ×2 (06:22→21:01)
[2020-06-03] MEDS: Furosemide 40 MG/4 ML VIAL SLOW IVP SCH ×2 (06:23→14:36)
[2020-06-03 06:49] LABS: #Eosinphils 0.1 thou/uL (0.0-0.7); #Lymphocytes 0.9 thou/uL (1.20-3.40); #Monocytes 1.2 thou/uL (0.11-0.59); #Neutrophils 14.5 thou/uL (1.40-6.50); %Eosinophils 0.5 % (0.0-10.0); %Lymphocytes 5.6 % (21.0-51.0); %Neutrophils 86.9 % (42.0-75.0); Hemoglobin 8.7 g/dL (14.0-18.0); Mean Corpuscular HGB CONC 30.2 g/dL (32.0-36.0); Mean Corpuscular Hemoglobin 27.2 pg (27.0-31.0); Platelet Count 259 thou/uL (130-400); RBC Distribution Width 17.6 % (11.5-14.5); Red Blood Cell (RBC) Count 3.22 mill/uL (4.70-6.10); White Blood Cell (WBC) Count 16.7 thou/uL (4.8-10.8)
[2020-06-03 07:12] LABS: ALT (SGPT) 17 U/L (8-55); AST (SGOT) 12 U/L (5-34); Albumin 2.9 g/dL (3.4-4.8); Alkaline Phosphatase 71 U/L (40-110); Anion Gap 10 mmol/L (10-20); BUN (Urea Nitrogen) 47 mg/dL (8.4-25.7); Bilirubin, Total 0.5 mg/dL (0.2-1.2); Calc. Creatinine Clearance 37 mL/min (70-130); Calcium 7.4 mg/dL (7.8-10.44); Carbon Dioxide 29 mmol/L (23-31); Chloride 104 mmol/L (98-107); Estimated GFR-MDRD 32; Globulin 1.9 g/dL (2.4-3.5); Glucose 83 mg/dL (83-110); Potassium 3.7 mmol/L (3.5-5.1); Protein, Total 4.8 g/dL (5.8-8.1); Sodium 139 mmol/L (136-145)
[2020-06-03] MEDS: Tamsulosin HCl 0.4 MG CAP PO SCH (08:46)
[2020-06-03] MEDS: Doxycycline 100 MG CAP PO SCH ×2 (08:46→20:29)
[2020-06-03] MEDS: Gabapentin 100 MG CAP PO SCH ×2 (08:46→20:29)
[2020-06-03] MEDS: Cipro 250 MG TAB PO SCH ×2 (08:47→20:29)
[2020-06-03] MEDS: Aspirin 81 mg Enteric Coated Tablet PO SCH ×2 (08:47→20:30)
[2020-06-03] MEDS ORDERED: PHENYLEPHRINE-NS 100 MCG/ML 10 ML SYRINGE ONE (09:44)
[2020-06-03] MEDS ORDERED: PROPOFOL 200 MG/20 ML VIAL ONE (09:44)
[2020-06-03] MEDS ORDERED: Rocuronium Bromide 10 MG/ML (10ML VIAL) ONE (09:44)
[2020-06-03] MEDS ORDERED: Ondansetron PF 4 MG/2 ML Vial ONE (09:44)
[2020-06-03] MEDS ORDERED: Phenylephrine 10 MG/ML VIAL ONE (09:48)
[2020-06-03] MEDS: Morphine 4 MG/ML VIAL SLOW IVP PRN (11:58)
--- NOTE | 2020-06-03 12:14 | CON ---
DATE OF CONSULTATION: REASON FOR CONSULTATION: Preoperative evaluation. HISTORY OF PRESENT ILLNESS: Mr. Mart is a very pleasant 79-year-old gentleman with history of diastolic congestive heart failure, atrial arrhythmias, right-sided heart failure, COPD, now with need for orthopedic surgery as outlined in the chart. Mr. Mart has had a very difficult time with atrial arrhythmias and has had a Watchman procedure done in the past and ultimately decided to stop anticoagulation as on anticoagulation, the patient had recurrent GI bleeding with anemia and requirement for blood transfusion. His main problem from a cardiac standpoint now is fluid retention. He has normal left ventricular systolic function, but has evidence of diastolic dysfunction. In the past, it has been very difficult to control the peripheral edema, which again is his problem. However, now he will need surgery of orthopedic nature as outlined in the chart. The patient does have diastolic heart failure. He also has COPD. Medication at home, he was taking diuretics on a regular basis, but he tends to become refractory to oral diuretics. The current medication list is not in the chart. I will need to look at his office notes and see what medicines he is on home. ALLERGIES: TO ADHESIVE. REVIEW OF SYSTEMS: CONSTITUTIONAL: Positive for weakness and fatigue, but actually he has been doing better with that. VISION: No changes. HEARING: No changes. PULMONARY: He has actually been breathing better than usual. CARDIAC: No chest pain. GASTROINTESTINAL: No nausea, vomiting, or diarrhea. SKIN: No rashes. NEUROLOGIC: No unilateral weakness or numbness. PSYCHIATRIC: No unusual depression or anxiety. PHYSICAL EXAMINATION: GENERAL: This is a chronically ill, but very pleasant elderly gentleman. VITAL SIGNS: Blood pressure 109/75, pulse 76 and it is regular. LUNGS: Clear. There is no wheezing, rales, or rhonchi. CARDIAC: Normal S1. Normal S2. ABDOMEN: Obese, nontender. EXTREMITIES: Tqhinmhg-so-hjvqwy peripheral edema. PERTINENT LABORATORY DATA: Hemoglobin is 8.7, which is really close to his baseline. Ferritin level is low at 57.7. The patient has chronic iron deficiency anemia, even off anticoagulants due to GI blood loss. MEDICATIONS: Here in the hospital, the patient is on: 1. Aspirin. 2. Atorvastatin. 3. IV furosemide. 4. Tamsulosin. ASSESSMENT: 1. Diastolic heart failure appears relatively well compensated. He is volume overloaded, but he is not short of breath and chest x-ray does not look like heart failure. 2. Coronary artery disease. No evidence of angina. 3. Atrial arrhythmias, paroxysmal, currently in sinus rhythm. PLAN: 1. Okay to me to proceed to surgery. Consideration for giving him intravenous iron postoperatively if he does not require blood transfusion. 2. Continue IV diuretics for now. Job ID: [id number]
[2020-06-03 13:52] LABS: SARS-CoV-2 MS2 Positive; SARS-CoV-2 N Gene Negative; SARS-CoV-2 S Gene Negative; SARS-CoV-2 by NAA Not Detected (NotDetected); SARS-CoV-2 orf1ab Negative
[2020-06-03] MEDS ORDERED: Tobramycin Sulfate 1.2 GM VIAL ONE (14:30)
[2020-06-03] MEDS ORDERED: methylPREDNISolone Sod Succ/PF 125 MG/2 ML VIAL ONE (14:51)
[2020-06-03] MEDS ORDERED: Fentanyl 100 MCG/2 ML VIAL ONE ×2 (14:53→17:28)
[2020-06-03] MEDS ORDERED: SUGAMMADEX SODIUM 500 MG/5 ML VIAL ONE (14:54)
[2020-06-03] MEDS ORDERED: Sodium Chloride 0.9% 0 ML ONE (15:43)
[2020-06-03] MEDS ORDERED: Promethazine HCl 25 MG/ML VIAL IM PRN ×2 (16:52→17:01)
[2020-06-03] MEDS ORDERED: Ondansetron PF 4 MG/2 ML Vial IVP PRN (16:52)
[2020-06-03] MEDS ORDERED: Zolpidem Tartrate 5 MG TAB PO PRN (16:52)
[2020-06-03] MEDS ORDERED: Promethazine HCl 25 MG/ML VIAL SLOW IVP PRN (17:01)
[2020-06-03] MEDS ORDERED: Ondansetron HCl/PF 4 MG/2 ML Vial IVP PRN (17:01)
[2020-06-03] MEDS: Sodium Chloride 0.9% 1,000 ML IV SCH (18:50)
--- NOTE | 2020-06-03 19:33 | PDOC.HOSPP ---
- Subjective Encounter Date: 06/03/20 Subjective: The patient was seen earlier in the morning. He is feeling better and his lower extremity swelling has improved since yesterday. - Objective Vital Signs & Weight: Vital Signs (12 hours) Temp Pulse Resp BP Pulse Ox 06/03/20 18:30 98.2 F 81 18 123/66 94 L 06/03/20 11:58 97.9 F 77 16 125/71 94 L 06/03/20 08:09 97.8 F 76 16 109/75 99 Weight Admit Weight 195 lb Weight 195 lb I&O: 06/02/20 06/03/20 06/04/20 06:59 06:59 06:59 Output Total 375 Balance -375 Result Diagrams: 06/03/20 06:35 06/03/20 06:35 Hospitalist ROS - Medication Medications: Active Medications Generic Name Dose Route Start Last Admin Trade Name Freq PRN Reason Stop Dose Admin Hydrocodone Bitart/Acetaminophen 2 tab 06/02/20 10:54 06/03/20 06:22 [place] 5/325 PO 2 tab Q4H PRN Administration Severe Pain (7-10) Atorvastatin Calcium 20 mg 06/02/20 21:00 06/02/20 20:47 Lipitor PO 20 mg HS SHORTY Administration Ciprofloxacin 250 mg 06/02/20 21:00 06/03/20 08:47 Cipro PO 250 mg Q12HR SHORTY Administration Doxycycline Hyclate 100 mg 06/02/20 21:00 06/03/20 08:46 Vibramycin PO 100 mg BID SHORTY Administration Fentanyl 50 mcg 06/02/20 10:54 06/02/20 14:34 Sublimaze SLOW IVP 50 mcg Q30M PRN Administration Severe breakthrough pain Furosemide 40 mg 06/03/20 06:00 06/03/20 14:36 Lasix SLOW IVP Not Given 0600,1400 SHORTY Gabapentin 100 mg 06/02/20 21:00 06/03/20 08:46 Neurontin PO 100 mg BID SHORTY Administration Sodium Chloride 1,000 mls @ 75 mls/hr 06/03/20 17:00 06/03/20 18:50 Normal Saline 0.9% IV Not Given .[id number] SHORTY Morphine Sulfate 4 mg 06/02/20 10:54 06/03/20 11:58 Morphine SLOW IVP 4 mg Q2H PRN Administration Severe Pain (7-10) Pantoprazole Sodium 40 mg 06/02/20 21:00 06/03/20 08:46 Protonix PO 40 mg BID SHORTY Administration Tamsulosin HCl 0.4 mg 06/03/20 09:00 06/03/20 08:46 Flomax PO 0.4 mg DAILY SHORTY Administration - Exam General Appearance: awake alert Neck: supple, no JVD Respiratory: normal chest expansion, no tachypnea Gastrointestinal: soft Neurological: cranial nerve grossly intact, no focal deficits Hosp A/P (1) Acute on chronic diastolic (congestive) heart failure Code(s): I50.33 - ACUTE ON CHRONIC DIASTOLIC (CONGESTIVE) HEART FAILURE Status : Acute (2) Atrial fibrillation Code(s): I48.91 - UNSPECIFIED ATRIAL FIBRILLATION Status: Chronic Qualifiers: (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 The patient's volume status is improving. Echocardiogram showed EF of 55 to 60%. Continue antibiotics per ID. Cleared to proceed to surgery by cardiology.
--- NOTE | 2020-06-03 19:34 | RAD ---
2 VIEWS LEFT HIP: Date: 06/03/2020 COMPARISON: 06/02/2020. HISTORY: Postoperative patient, left hip arthroplasty. FINDINGS: A left hip arthroplasty is present. There is no evidence for fracture or dislocation. Postoperative g as is noted adjacent to the proximal left femur. IMPRESSION: Evidence of recent left total hip arthroplasty. POS: OFF
[2020-06-03] MEDS: Senokot S 8.6-50 MG TAB PO SCH (20:29)
[2020-06-03] MEDS: Atorvastatin Calcium 20 MG TAB PO SCH (20:30)
[2020-06-03] MEDS: Ferrous Gluconate 324 MG TAB PO SCH (20:30)
[2020-06-03] MEDS: Albuterol Sulfate 1.25 MG/3 ML NEB NEB SCH ×2 (20:34→22:13)
--- NOTE | 2020-06-04 00:04 | OP ---
DATE OF PROCEDURE: 06/03/2020 This is Devon Means PA-C dictating a report for Wilver Salamanca MD. PREOPERATIVE DIAGNOSIS: Failed/unstable left hip revision hemiarthroplasty. POSTOPERATIVE DIAGNOSIS: Failed/unstable left hip revision hemiarthroplasty. PROCEDURES PERFORMED: 1. Removal of circumferential cable cerclage proximal femur. 2. Conversion of one component left hip hemiarthroplasty acetabular component to total hip arthroplasty. NATURAL RESOURCE MANAGER: Devon Means PA-C ANESTHESIA: General via endotracheal tube. COMPONENTS USED: Trident II Tritanium multihole revision acetabular shell 54 mm requiring three 6.5 low-profile metaphyseal screws, 42 mm MDM metallic liner, islam X3 28 mm diameter to 48 mm diameter bipolar femoral head with +10 taper fit offset. ESTIMATED BLOOD LOSS: 200. FINDINGS: Abduction repair disruption dislocated hip, small posterior lip acetabular fracture secondary to previous dislocation and significant serous hemarthrosis. DRAINS: None. SPECIMENS: Cultures were obtained. COMPLICATIONS: None. COUNTS: Correct. INDICATION FOR SURGERY: Bin is an 79-year-old male, who has had initially a left hip hemiarthroplasty for a femoral neck fracture from a fall about 6 to 8 weeks ago. He subsequently had a dislocation and his hemiarthroplasty was revised to a cemented long-stem hemiarthroplasty, which demonstrated methicillin-resistant Staph aureus. He has had a full course of antibiotic treatment and at home two nights ago in his sleep, apparently dislocated his revised hip hemiarthroplasty. DESCRIPTION OF PROCEDURE: After informed consent was obtained in the preoperative holding area, the patient was taken to the operative suite. General anesthesia was induced and airway was placed and secured. The patient was then was positioned in the right lateral decubitus position and the left lower extremity was prepped and draped in usual sterile fashion. A De was placed prior to positioning. The extremity was prepped and draped and prior to incision, a multidisciplinary time-out was called to attend the surgical team. After this, an incision was made over the patient's prior incision and sharply dissected down the IP band. This was bluntly dissected out and identified. After incision of the IP band, we encountered a large serous maroon-colored liquified hemarthrosis that was slightly under pressure. Approximately 700 to 800 mL was evacuated. After this, the abductors were then identified and pulled out away since they were already fully released. The hip was placed in the dislocation position. The bipolar hemiarthroplasty head was removed with a AUTOMOTIVE GLAZIER punch and we began acetabular preparation. Sequential reaming was carried up to the appropriate size. Bleeding was controlled with Bovie electrocautery. A partial posterior lip of acetabular wall fracture was identified at the time of surgery, but appeared to be stable. We were able to ream down to a 54 mm outer diameter. After completion of the reaming, we then malleted in the trident PSL multi hole acetabular shell. Three screws were then placed to obtain maximal fixation. The cup had a good fit nonetheless. We malleted in our MDM liner and then began trialing up to the appropriate neck length. We felt stable with flexion, extension, internal-external rotation and shock being within normal limits. We placed the MDM bipolar head. Relocation maneuver was placed, solid good clunk with stability was noted, and the wound was then copiously irrigated with normal saline. Primary closure of the abductors was accomplished with #2 interrupted [id number] Vicryl. The IP band was also reapproximated with #2 Vicryl and oversewn with #2 Quill. Subcutaneous layer was closed with running zero Quill stitch and a 2-0 Prolene in a running horizontal mattress was placed for skin reapproximation. Sterile dressing was applied. The procedure was terminated without any complication. The patient was awakened in the operative suite, airways removed, and was taken to the recovery room in stable condition. Job ID: [id number]
[2020-06-04] MEDS: Albuterol Sulfate 1.25 MG/3 ML NEB NEB SCH ×6 (02:29→22:10)
[2020-06-04] MEDS: Furosemide 40 MG/4 ML VIAL SLOW IVP SCH (05:35)
[2020-06-04] MEDS: Sodium Chloride 0.9% 1,000 ML IV SCH ×2 (06:11→21:25)
[2020-06-04 06:24] LABS: Anion Gap 12 mmol/L (10-20); BUN (Urea Nitrogen) 49 mg/dL (8.4-25.7); Calc. Creatinine Clearance 32 mL/min (70-130); Carbon Dioxide 27 mmol/L (23-31); Chloride 103 mmol/L (98-107); Estimated GFR-MDRD 27; Glucose 119 mg/dL (83-110); Potassium 3.7 mmol/L (3.5-5.1); Sodium 138 mmol/L (136-145)
[2020-06-04 06:33] LABS: Hemoglobin 7.2 g/dL (14.0-18.0); Mean Corpuscular HGB CONC 29.9 g/dL (32.0-36.0); Mean Corpuscular Hemoglobin 26.5 pg (27.0-31.0); Mean Corpuscular Volume 88.7 fL (78.0-98.0); Mean Platelet Volume 8.5 fL (7.4-10.4); Platelet Count 236 thou/uL (130-400); RBC Distribution Width 17.5 % (11.5-14.5); Red Blood Cell (RBC) Count 2.72 mill/uL (4.70-6.10); White Blood Cell (WBC) Count 17.3 thou/uL (4.8-10.8)
[2020-06-04] MEDS: Gabapentin 100 MG CAP PO SCH ×2 (07:52→21:10)
[2020-06-04] MEDS: Senokot S 8.6-50 MG TAB PO SCH ×2 (07:52→21:10)
[2020-06-04] MEDS: Cipro 250 MG TAB PO SCH ×2 (07:53→21:10)
[2020-06-04] MEDS: Tamsulosin HCl 0.4 MG CAP PO SCH (07:53)
[2020-06-04] MEDS: Aspirin 81 mg Enteric Coated Tablet PO SCH ×2 (07:53→21:10)
[2020-06-04] MEDS: Ferrous Gluconate 324 MG TAB PO SCH ×2 (07:53→21:10)
[2020-06-04] MEDS: Doxycycline 100 MG CAP PO SCH ×2 (07:53→21:09)
[2020-06-04] MEDS: Multivitamin W/ Minerals 1 TAB PO SCH (07:53)
--- NOTE | 2020-06-04 09:02 | PRG ---
DATE OF SERVICE: 06/04/2020 SUBJECTIVE: Bin is an 79-year-old male postop day #1 from a revision of left hip arthroplasty secondary to dislocations. Currently, he has little bit of discomfort in the hip as expected postoperatively, but overall he is feeling well and looking quite spry. OBJECTIVE: VITAL SIGNS: Temperature 97.4, pulse 85, respiratory rate 16 and unlabored, O2 saturations 94% on 3 L nasal cannula, and blood pressure 112/60. GENERAL: He is alert, responsive, appropriate and conversive with examiner, pleasant. EXTREMITIES: His incision, there is no strike through. He does have quite a bit of dependent edema in the left buttocks and left lower extremity. The long-leg immobilizer is in place and he is neurovascularly intact in left lower extremity without any rotation or shortening deformation. LABORATORY DATA: Hemoglobin and hematocrit are 7.2 and 24.1. His white blood cell count is 17.3, slightly up from yesterday. Microbiology culture is still pending. IMPRESSION: An 79-year-old male postoperative day #1, revision of left hip arthroplasty. PLAN: Continue current care. We will discuss with the Medicine Team regarding blood transfusion for the patient. He may be a weightbearing as tolerated. Job ID: [id number]
--- NOTE | 2020-06-04 09:41 | PDOC.CPN ---
- Subjective Date: 06/04/20 Time: 09:39 Interval history: Doing well. No complaints noted. No SOB present - Objective Allergies/Adverse Reactions: Allergies Allergy/AdvReac Type Severity Reaction Status Date / Time adhesive AdvReac Verified 04/28/20 13:42 Visit Medications: Current Medications Acetaminophen (Tylenol) 650 mg PO Q4H PRN PRN Reason: Headache/Fever or Pain Hydrocodone Bitart/Acetaminophen ([place] 5/325) 1 tab PO Q4H PRN PRN Reason: Moderate Pain (4-6) Hydrocodone Bitart/Acetaminophen ([place] 5/325) 2 tab PO Q4H PRN PRN Reason: Severe Pain (7-10) Last Admin: 06/03/20 21:01 Dose: 2 tab Albuterol Sulfate (Albuterol Sulfate) 1.25 mg NEB [id number] [facility] Last Admin: 06/04/20 07:43 Dose: 1.25 mg Albuterol Sulfate (Ventolin) 2.5 mg NEB Q6H PRN PRN Reason: Dyspnea/Wheezing/SOB Aspirin (Ecotrin) 81 mg PO BID [facility] Last Admin: 06/04/20 07:53 Dose: 81 mg Atorvastatin Calcium (Lipitor) 20 mg PO HS [facility] Last Admin: 06/03/20 20:30 Dose: 20 mg Bisacodyl (Dulcolax) 10 mg [place] DAILYPRN PRN PRN Reason: Constipation Ciprofloxacin (Cipro) 250 mg PO Q12HR [facility] Last Admin: 06/04/20 07:53 Dose: 250 mg Diphenhydramine HCl (Benadryl) 25 mg PO Q6H PRN PRN Reason: Itching Doxycycline Hyclate (Vibramycin) 100 mg PO BID [facility] Last Admin: 06/04/20 07:53 Dose: 100 mg Fentanyl (Sublimaze) 50 mcg SLOW IVP Q30M PRN PRN Reason: Severe breakthrough pain Last Admin: 06/02/20 14:34 Dose: 50 mcg Ferrous Gluconate (Fergon) 324 mg PO BID [facility] Last Admin: 06/04/20 07:53 Dose: 324 mg Furosemide (Lasix) 40 mg SLOW IVP 0600,1400 [facility] Last Admin: 06/04/20 05:35 Dose: 40 mg Gabapentin (Neurontin) 100 mg PO BID [facility] Last Admin: 06/04/20 07:52 Dose: 100 mg Sodium Chloride (Normal Saline 0.9%) 1,000 mls @ 75 mls/hr IV .[id number] [facility] Last Admin: 06/04/20 06:11 Dose: Not Given Vancomycin HCl 1 gm/ Device 200 mls @ 200 mls/hr IVPB 1500 SHORTY Iron/Minerals/Multivitamins (Theragran M) 1 tab PO DAILY [facility] Last Admin: 06/04/20 07:53 Dose: 1 tab Magnesium Hydroxide (Milk Of Magnesium) 30 ml PO DAILYPRN PRN PRN Reason: Constipation Miscellaneous Medication (Pharmacy To Dose) 1 each IVPB PRN PRN PRN Reason: Pharmacy to dose Morphine Sulfate (Morphine) 2 mg SLOW IVP Q2H PRN PRN Reason: Moderate Pain (4-6) Morphine Sulfate (Morphine) 4 mg SLOW IVP Q2H PRN PRN Reason: Severe Pain (7-10) Last Admin: 06/03/20 11:58 Dose: 4 mg Ondansetron HCl (Zofran) 4 mg IVP Q6H PRN PRN Reason: Nausea/Vomiting Pantoprazole Sodium (Protonix) 40 mg PO BID [facility] Last Admin: 06/04/20 07:52 Dose: 40 mg Promethazine HCl (Phenergan) 12.5 mg IM Q4H PRN PRN Reason: Nausea/Vomiting Senna/Docusate Sodium (Senokot S) 2 tab PO BID [facility] Last Admin: 06/04/20 07:52 Dose: 2 tab Sodium Chloride (Flush - Normal Saline) 10 ml IVF PRN PRN PRN Reason: Saline Flush Tamsulosin HCl (Flomax) 0.4 mg PO DAILY [facility] Last Admin: 06/04/20 07:53 Dose: 0.4 mg Tramadol HCl (Ultram) 50 mg PO Q6H PRN PRN Reason: Mild Pain (1-3) Tramadol HCl (Ultram) 100 mg PO Q6H PRN PRN Reason: Moderate Pain (4-6) Zolpidem Tartrate (Ambien) 5 mg PO HSPRN PRN PRN Reason: Insomnia Vital Signs & Weight: Vital Signs Temp Pulse Resp BP Pulse Ox 06/04/20 08:06 85 16 112/60 94 L 06/04/20 08:00 94 L 06/04/20 07:43 80 14 06/04/20 04:00 97.4 F L 78 18 106/69 97 06/04/20 02:29 71 14 99 06/04/20 00:00 97.9 F 86 18 104/55 L 98 06/03/20 22:13 83 16 91 L Admit Weight 195 lb Weight 195 lb - Physical Exam General: alert & oriented x3 Neck: no masses Cardiac: no murmur, regular rate, regular rhythm Lungs: normal exam Extremities: 1+ LE edema - Labs Result Diagrams: 06/04/20 05:30 06/04/20 05:30 Troponin/CKMB CK-MB (CK-2) 1.8 ng/mL (0-6.6) 06/02/20 10:05 Troponin I 0.059 ng/mL (< 0.028) H 06/02/20 10:05 - Assessment/Plan Assessment/Plan: Diastolic HF Anemia Renal insufficiency Increase creatinine to 2.3 Stop lasix restirct fluids pt euvolemic Transfuse No other recommendations Dr. Gonzalez to resume care on ?Saturday Please call if questions arise
--- NOTE | 2020-06-04 10:43 | EKG ---
Test Reason : Blood Pressure : / mmHG Vent. Rate : 086 BPM Atrial Rate : 086 BPM P-R Int : 178 ms QRS Dur : 098 ms QT Int : 406 ms P-R-T Axes : 064 -52 061 degrees QTc Int : 485 ms Normal sinus rhythm Incomplete right bundle branch block Left anterior fascicular block Inferior infarct , age undetermined T wave abnormality, consider anterior ischemia Abnormal ECG Confirmed by SHEILA Monk, BRENNAN ([id number]), editor & co founder MAGNO MENESES ([id number]) on 06/04/2020 10:42:32 AM Referred By: Confirmed By:BRENNAN SOSA M.D.
[2020-06-04] MEDS: Albuterol Sulfate 2.5 mg/3 ml Neb NEB PRN ×2 (10:59→14:25)
[2020-06-04] MEDS: HYDROcodone/Acetaminophen 5/325 mg Tablet PO PRN ×2 (11:14→21:08)
[2020-06-04] MEDS ORDERED: Vancomycin 1 GM in Premix Bag 1 BAG IVPB SCH (15:00)
[2020-06-04 18:05] LABS: Vancomycin, Peak 20.2 ug/mL (20.0-40.0)
--- NOTE | 2020-06-04 19:06 | PDOC.HOSPP ---
- Subjective Encounter Date: 06/04/20 Encounter Time: 15:00 Subjective: The patient reports 7/10 pain in his left hip. He says pain medicine is helping. No tingling or numbness. His breathing is okay. He states he had hip surgery yesterday and was told his hip was infected but did not need removal of hip - Objective Vital Signs & Weight: Vital Signs (12 hours) Temp Pulse Pulse Resp BP BP BP 06/04/20 18:08 86 16 06/04/20 16:36 98.1 F 89 16 103/60 06/04/20 14:25 90 14 06/04/20 11:50 98 F 80 16 114/63 06/04/20 10:59 84 14 06/04/20 09:56 91 93/52 L 119/64 06/04/20 09:52 90 112/60 119/64 06/04/20 08:06 85 16 112/60 06/04/20 08:00 97.4 F L 85 16 112/60 06/04/20 07:43 80 14 Pulse Ox Pulse Ox 06/04/20 18:08 96 06/04/20 16:36 93 L 06/04/20 14:25 06/04/20 11:50 100 06/04/20 10:59 06/04/20 09:56 100 06/04/20 09:52 98 06/04/20 08:06 94 L 06/04/20 08:00 94 L 06/04/20 07:43 Weight Admit Weight 195 lb Weight 195 lb I&O: 06/03/20 06/04/20 06/05/20 06:59 06:59 06:59 Intake Total 800 Output Total 675 400 Balance -675 400 Result Diagrams: 06/04/20 05:30 06/04/20 05:30 Hospitalist ROS - Review of Systems Constitutional: denies: fever, chills - Medication Medications: Active Medications Generic Name Dose Route Start Last Admin Trade Name Freq PRN Reason Stop Dose Admin Hydrocodone Bitart/Acetaminophen 2 tab 06/02/20 10:54 06/04/20 11:14 [place] 5/325 PO 2 tab Q4H PRN Administration Severe Pain (7-10) Albuterol Sulfate 1.25 mg 06/03/20 18:30 06/04/20 18:08 Albuterol Sulfate NEB 1.25 mg [id number] SHORTY Administration Albuterol Sulfate 2.5 mg 06/03/20 18:12 06/04/20 14:25 Ventolin NEB 2.5 mg Q6H PRN Administration Dyspnea/Wheezing/SOB Aspirin 81 mg 06/03/20 21:00 06/04/20 07:53 Ecotrin PO 81 mg BID SHORTY Administration Atorvastatin Calcium 20 mg 06/02/20 21:00 06/03/20 20:30 Lipitor PO 20 mg HS SHORTY Administration Ciprofloxacin 250 mg 06/02/20 21:00 06/04/20 07:53 Cipro PO 250 mg Q12HR SHORTY Administration Doxycycline Hyclate 100 mg 06/02/20 21:00 06/04/20 07:53 Vibramycin PO 100 mg BID SHORTY Administration Fentanyl 50 mcg 06/02/20 10:54 06/02/20 14:34 Sublimaze SLOW IVP 50 mcg Q30M PRN Administration Severe breakthrough pain Ferrous Gluconate 324 mg 06/03/20 21:00 06/04/20 07:53 Fergon PO 324 mg BID SHORTY Administration Gabapentin 100 mg 06/02/20 21:00 06/04/20 07:52 Neurontin PO 100 mg BID SHORTY Administration Sodium Chloride 1,000 mls @ 75 mls/hr 06/03/20 17:00 06/04/20 06:11 Normal Saline 0.9% IV Not Given .[id number] SHORTY Vancomycin HCl 1 gm/ Device 200 mls @ 200 mls/hr 06/04/20 15:00 06/04/20 15: 50 IVPB 200 mls 1500 SHORTY Administration Iron/Minerals/Multivitamins 1 tab 06/04/20 09:00 06/04/20 07:53 Theragran M PO 1 tab DAILY SHORTY Administration Morphine Sulfate 4 mg 06/02/20 10:54 06/03/20 11:58 Morphine SLOW IVP 4 mg Q2H PRN Administration Severe Pain (7-10) Pantoprazole Sodium 40 mg 06/02/20 21:00 06/04/20 07:52 Protonix PO 40 mg BID SHORTY Administration Senna/Docusate Sodium 2 tab 06/03/20 21:00 06/04/20 07:52 Senokot S PO 2 tab BID SHORTY Administration Tamsulosin HCl 0.4 mg 06/03/20 09:00 06/04/20 07:53 Flomax PO 0.4 mg DAILY SHORTY Administration - Exam General Appearance: NAD, awake alert Eye: PERRL, anicteric sclera ENT: normocephalic atraumatic, no oropharyngeal lesions Neck: supple, no JVD Heart: RRR, no murmur, no gallops, no rubs Respiratory: CTAB, no wheezes, no rales, no ronchi Gastrointestinal: soft, non-tender, non-distended, normal bowel sounds, no palpable masses Extremities: no cyanosis, no clubbing, no edema Extremities - other findings: left sided hip tenderness. No signs of infection near surgical site. Skin: normal turgor, no lesions, no rashes Neurological: cranial nerve grossly intact, normal sensation to touch, no focal deficits, no new deficit Hosp A/P - Plan Consults: Palliative Care This is an 79 year old male with past medical history of multiple hip surgeries presenting with left thigh and hip pain Left thigh and hip pain s/p total hip arthroplasty POD1 - bacterial cultures from surgery are pending - currently on vancomycin and doxycycline per Dr. Beaver - WBC is 17.2 and downtrending #Chronic respiratory failure #Pulm edema - on 3L nasal cannula at baseline - ECHO 06/03 showed severely elevated pulm artery pressure. Was on IV lasix, transition to oral lasix #Anemia - Hb down to 7, will monitor, consider transfusion if less than 7 NNEKA - creatinine worsened to 2.3, IV diuretics switched to oral Physical deconditioning - continue PT and OT
[2020-06-04] MEDS: Atorvastatin Calcium 20 MG TAB PO SCH (21:10)
--- NOTE | 2020-06-04 22:57 | PRG ---
DATE OF SERVICE: 06/04/2020 SUBJECTIVE: Mr. Mart had surgical procedure and what appears to be hematoma within the left hip joint, so the hemiarthroplasty was revised into a full hip replacement. He actually has a minor pain at the moment and feeling a little bit more encouraged. No headaches. No shortness of breath. No abdominal pain. He has a De catheter. OBJECTIVE: VITAL SIGNS: T-max 98.1, blood pressure 120/50, pulse 89, respirations 18, and O2 saturation 93% on 4 L nasal cannula. LUNGS: Symmetric air entry. No crackles or wheezing. HEART: S1 and S2, regular rate. ABDOMEN: Soft. MUSCULOSKELETAL: Left hip with dressing. LABORATORY DATA: White cell count 17,000, hemoglobin 7.2, platelets 236. Creatinine 2.3, glucose 119, albumin 2.9. The Gram stain of the sample showed few WBCs, no organisms seen. There is might be growth in nutrient broth. The subculture is pending from that one. The patient is currently on doxycycline, vancomycin, as well as ciprofloxacin. ASSESSMENT AND DISCUSSION: Chronic kidney disease stage 3 to 4, atrial fibrillation, hypertension, chronic obstructive pulmonary disease on home O2, prior hip arthroplasty consultations. Now at revision of the latest surgery which is a bipolar revision of the prior hemiarthroplasty. The joint did not appear overtly infected, there was blood within the joint, and so we will wait for the culture results and see if he will just be able to go back home or to rehab with previous doxycycline and vancomycin regimen. Job ID: [id number] [id number]
[2020-06-05] MEDS: Albuterol Sulfate 1.25 MG/3 ML NEB NEB SCH ×6 (02:27→22:19)
[2020-06-05 05:33] LABS: Hemoglobin 6.8 g/dL (14.0-18.0); Mean Corpuscular HGB CONC 30.3 g/dL (32.0-36.0); Mean Corpuscular Hemoglobin 26.5 pg (27.0-31.0); Mean Corpuscular Volume 87.6 fL (78.0-98.0); Mean Platelet Volume 8.9 fL (7.4-10.4); Platelet Count 220 thou/uL (130-400); RBC Distribution Width 17.4 % (11.5-14.5); Red Blood Cell (RBC) Count 2.58 mill/uL (4.70-6.10)
[2020-06-05 05:51] LABS: Anion Gap 13 mmol/L (10-20); BUN (Urea Nitrogen) 48 mg/dL (8.4-25.7); Calc. Creatinine Clearance 31 mL/min (70-130); Calcium 6.8 mg/dL (7.8-10.44); Carbon Dioxide 26 mmol/L (23-31); Chloride 103 mmol/L (98-107); Estimated GFR-MDRD 27; Glucose 105 mg/dL (83-110); Potassium 3.5 mmol/L (3.5-5.1); Sodium 138 mmol/L (136-145)
[2020-06-05] MEDS: HYDROcodone/Acetaminophen 5/325 mg Tablet PO PRN ×2 (06:13→21:31)
[2020-06-05] MEDS: Albuterol Sulfate 2.5 mg/3 ml Neb NEB PRN ×2 (07:04→11:33)
[2020-06-05] MEDS: Senokot S 8.6-50 MG TAB PO SCH ×2 (07:37→21:30)
[2020-06-05] MEDS: Gabapentin 100 MG CAP PO SCH ×2 (07:37→21:31)
[2020-06-05] MEDS: Ferrous Gluconate 324 MG TAB PO SCH ×2 (07:37→21:31)
[2020-06-05] MEDS: Tamsulosin HCl 0.4 MG CAP PO SCH (07:37)
[2020-06-05] MEDS: Doxycycline 100 MG CAP PO SCH ×2 (07:38→21:31)
[2020-06-05] MEDS: Multivitamin W/ Minerals 1 TAB PO SCH (07:38)
[2020-06-05] MEDS: Aspirin 81 mg Enteric Coated Tablet PO SCH ×2 (07:38→21:30)
[2020-06-05] MEDS: Cipro 250 MG TAB PO SCH ×2 (07:38→21:31)
[2020-06-05] MEDS ORDERED: Furosemide 20 MG/2 ML VIAL SLOW IVP PRN (11:15)
[2020-06-05 14:35] LABS: Vancomycin, Trough 26.1 ug/mL
[2020-06-05] MEDS: Vancomycin HCl 750 MG in Sodium Chloride 0.9% 250 ML 250 ML IVPB SCH (15:12)
--- NOTE | 2020-06-05 15:55 | PDOC.HOSPP ---
- Subjective Encounter Date: 06/05/20 Encounter Time: 12:30 Subjective: The patient states he feels better today. His hip pain at rest is about a 6-7/ 10. No tingling or numbness in his extremity. He states the norco is helping He is requesting lasix to be given after blood transfusion since he tends to get overloaded during his last three admissions - Objective Vital Signs & Weight: Vital Signs (12 hours) Temp Pulse Pulse Resp BP BP Pulse Ox 06/05/20 14:57 90 16 95 06/05/20 14:25 98.3 F 94 16 122/65 94 L 06/05/20 13:30 97.8 F 94 18 143/72 H 97 06/05/20 11:33 86 14 06/05/20 11:25 98.1 F 89 20 121/66 97 06/05/20 11:04 98.2 F 87 20 107/65 94 L 06/05/20 08:00 90 L 06/05/20 07:59 98.4 F 82 16 108/55 L 90 L 06/05/20 07:04 90 14 06/05/20 04:00 98.5 F 80 16 118/62 97 Weight Admit Weight 195 lb Weight 195 lb I&O: 06/04/20 06/05/20 06/06/20 06:59 06:59 06:59 Intake Total 800 375 Output Total 675 400 Balance -675 400 375 Result Diagrams: 06/05/20 05:20 06/05/20 05:20 Hospitalist ROS - Review of Systems Constitutional: denies: fever, chills - Medication Medications: Active Medications Generic Name Dose Route Start Last Admin Trade Name Freq PRN Reason Stop Dose Admin Hydrocodone Bitart/Acetaminophen 2 tab 06/02/20 10:54 06/05/20 06:13 [place] 5/325 PO 2 tab Q4H PRN Administration Severe Pain (7-10) Albuterol Sulfate 1.25 mg 06/03/20 18:30 06/05/20 14:57 Albuterol Sulfate NEB 1.25 mg [id number] SHORTY Administration Albuterol Sulfate 2.5 mg 06/03/20 18:12 06/05/20 11:33 Ventolin NEB 2.5 mg Q6H PRN Administration Dyspnea/Wheezing/SOB Aspirin 81 mg 06/03/20 21:00 08/16/20 07:38 Ecotrin PO 81 mg BID SHORTY Administration Atorvastatin Calcium 20 mg 06/02/20 21:00 06/04/20 21:10 Lipitor PO 20 mg HS SHORTY Administration Ciprofloxacin 250 mg 06/02/20 21:00 06/05/20 07:38 Cipro PO 250 mg Q12HR SHORTY Administration Doxycycline Hyclate 100 mg 06/02/20 21:00 06/05/20 07:38 Vibramycin PO 100 mg BID SHORTY Administration Fentanyl 50 mcg 06/02/20 10:54 06/02/20 14:34 Sublimaze SLOW IVP 50 mcg Q30M PRN Administration Severe breakthrough pain Ferrous Gluconate 324 mg 06/03/20 21:00 06/05/20 07:37 Fergon PO 324 mg BID SHORTY Administration Furosemide 20 mg 06/05/20 11:15 06/05/20 13:22 Lasix SLOW IVP 06/05/20 16:00 20 mg ONE PRN Administration Edema Gabapentin 100 mg 06/02/20 21:00 06/05/20 07:37 Neurontin PO 100 mg BID SHORTY Administration Sodium Chloride 1,000 mls @ 75 mls/hr 06/03/20 17:00 06/04/20 21:25 Normal Saline 0.9% IV Not Given .[id number] SHORTY Vancomycin HCl 750 mg/ Sodium 250 mls @ 250 mls/hr 06/05/20 15:00 06/05/20 15 :12 Chloride IVPB 250 mls 1500 SHORTY Administration Iron/Minerals/Multivitamins 1 tab 06/04/20 09:00 06/05/20 07:38 Theragran M PO 1 tab DAILY SHORTY Administration Morphine Sulfate 4 mg 06/02/20 10:54 06/03/20 11:58 Morphine SLOW IVP 4 mg Q2H PRN Administration Severe Pain (7-10) Pantoprazole Sodium 40 mg 06/02/20 21:00 06/05/20 07:37 Protonix PO 40 mg BID SHORTY Administration Senna/Docusate Sodium 2 tab 06/03/20 21:00 06/05/20 07:37 Senokot S PO 2 tab BID SHORTY Administration Tamsulosin HCl 0.4 mg 06/03/20 09:00 06/05/20 07:37 Flomax PO 0.4 mg DAILY SHORTY Administration - Exam General Appearance: NAD, awake alert Eye: PERRL, anicteric sclera ENT: normocephalic atraumatic, no oropharyngeal lesions Neck: no JVD Heart: RRR, no murmur, no gallops, no rubs Respiratory: CTAB, no wheezes, no rales, no ronchi Gastrointestinal: soft, non-tender, non-distended, normal bowel sounds Extremities - other findings: left hip with erythema, swelling and tenderness. Slightly firm to palpation Skin: normal turgor, no lesions Neurological: cranial nerve grossly intact, normal sensation to touch, no focal deficits, no new deficit Musculoskeletal - other findings: intact DP pulses Psychiatric: normal affect, normal behavior, A&O x 3 Hosp A/P - Plan This is an 79 year old male with past medical history of multiple hip surgeries presenting with left thigh and hip pain Left thigh and hip pain s/p total hip arthroplasty POD2 - bacterial cultures show gram negative rods - currently on vancomycin and doxycycline as well as cipro . Bacterial cultures growing gram negative rods, final cultures pending - WBC is downtrending to 14 - continue norco prn #Anemia - possibly blood loss related from surgery. Hb 6, transfuse 1 unit and repeat CBC afterwards #Chronic respiratory failure #Pulm edema - on 3L nasal cannula at baseline - ECHO 06/03 showed severely elevated pulm artery pressure. Was on IV lasix, transitioned to oral lasix NNEKA - creatinine worsened to 2.36. Repeat BMP tomorrow, patient is getting blood transfusion Physical deconditioning - continue PT and OT
--- NOTE | 2020-06-05 16:02 | PRG ---
DATE OF SERVICE: 06/05/2020 SUBJECTIVE: Bin is an 79-year-old man, who is now postop day 2 from an acetabular revision with conversion from hemiarthroplasty. His hip cultures demonstrated a new finding of gram-negative rods. Otherwise, the patient has complaints. He has had no amplification of pain. He had no nausea, vomiting, or other constitutional symptoms. OBJECTIVE: VITAL SIGNS: Temperature 98.3, pulse 94, respiratory rate is 16 and unlabored, O2 saturations 94% on 3 L nasal cannula, blood pressure is 122/65. GENERAL: He is alert, responsive, and appropriate with examiner and converses easily. His incision is a little weepy, does not look grossly infected, but he does have some bloody strikethrough noted in the dressing. IMPRESSION: Status post conversion arthroplasty, left hip, postop day 2. PLAN: 1. We will follow his cultures for definitive identification and treatment with antimicrobial. 2. We will place an incisional VAC over his weepy incision. Job ID: [id number]
[2020-06-05] MEDS: Sodium Chloride 0.9% 1,000 ML IV SCH (18:23)
[2020-06-05 19:54] LABS: Hemoglobin 8.3 g/dL (14.0-18.0); Mean Corpuscular HGB CONC 31.3 g/dL (32.0-36.0); Mean Corpuscular Hemoglobin 27.5 pg (27.0-31.0); Mean Corpuscular Volume 87.7 fL (78.0-98.0); Mean Platelet Volume 8.9 fL (7.4-10.4); Platelet Count 223 thou/uL (130-400); Red Blood Cell (RBC) Count 3.03 mill/uL (4.70-6.10); White Blood Cell (WBC) Count 17.1 thou/uL (4.8-10.8)
[2020-06-05] MEDS: Atorvastatin Calcium 20 MG TAB PO SCH (21:30)
[2020-06-06] MEDS: Albuterol Sulfate 1.25 MG/3 ML NEB NEB SCH ×6 (02:32→22:18)
[2020-06-06 05:38] LABS: Hemoglobin 7.7 g/dL (14.0-18.0); Mean Corpuscular HGB CONC 30.2 g/dL (32.0-36.0); Mean Corpuscular Hemoglobin 26.5 pg (27.0-31.0); Mean Corpuscular Volume 87.8 fL (78.0-98.0); Mean Platelet Volume 8.8 fL (7.4-10.4); Platelet Count 225 thou/uL (130-400); RBC Distribution Width 17.2 % (11.5-14.5); Red Blood Cell (RBC) Count 2.89 mill/uL (4.70-6.10); White Blood Cell (WBC) Count 15.2 thou/uL (4.8-10.8)
[2020-06-06 05:55] LABS: Anion Gap 11 mmol/L (10-20); BUN (Urea Nitrogen) 44 mg/dL (8.4-25.7); Calc. Creatinine Clearance 33 mL/min (70-130); Calcium 6.9 mg/dL (7.8-10.44); Carbon Dioxide 26 mmol/L (23-31); Chloride 102 mmol/L (98-107); Estimated GFR-MDRD 28; Glucose 104 mg/dL (83-110); Potassium 3.6 mmol/L (3.5-5.1); Sodium 135 mmol/L (136-145)
[2020-06-06] MEDS: Ferrous Gluconate 324 MG TAB PO SCH ×2 (09:04→21:56)
[2020-06-06] MEDS: Tamsulosin HCl 0.4 MG CAP PO SCH (09:04)
[2020-06-06] MEDS: Aspirin 81 mg Enteric Coated Tablet PO SCH ×2 (09:04→21:57)
[2020-06-06] MEDS: Gabapentin 100 MG CAP PO SCH ×2 (09:04→21:56)
[2020-06-06] MEDS: Cipro 250 MG TAB PO SCH (09:04)
[2020-06-06] MEDS: Doxycycline 100 MG CAP PO SCH ×2 (09:05→21:56)
[2020-06-06] MEDS: Senokot S 8.6-50 MG TAB PO SCH ×2 (09:05→21:56)
[2020-06-06] MEDS: Multivitamin W/ Minerals 1 TAB PO SCH (09:05)
[2020-06-06 11:44] LABS: Iron 20 ug/dL (65-175); Iron Binding Capacity, Total 194 mcg/dL (261-462)
[2020-06-06] MEDS ORDERED: Meropenem 1 GM in Sodium Chloride 0.9% 100 ML IVPB SCH (12:00)
--- NOTE | 2020-06-06 14:05 | PRG ---
DATE OF SERVICE: 06/06/2020 This is Drea Calzada PA-C dictating a report for Wilver Salamanca MD. SUBJECTIVE: The patient is an 79-year-old male, who is postop day #3 from an acetabular revision with conversion from hemiarthroplasty. His hip cultures have not demonstrated new finding of gram-negative rods. Today, Wound Care is seeing the patient at the same time as myself. They are here to apply a SAGE VAC. He has currently been sitting up at bedside in a chair and is finishing his lunch. No complaints of nausea or vomiting. States he has had difficulty having a bowel movement following his surgery. OBJECTIVE: VITAL SIGNS: Currently temperature 98.1, pulse 92, respiratory rate of 20, O2 saturation of 96% on nasal cannula 2 L, blood pressure of 131/66. GENERAL: The patient is awake and alert. He is in no apparent distress. He is seated in the bedside chair, eating his lunch. MUSCULOSKELETAL: Evaluation of his left hip surgical wound with the surgical dressing removed before application of the SAGE VAC shows wound appears to have some scant serous drainage. Skin is not macerated. No bleeding. Skin edges are well approximated. Distal neurovascular status is intact. ASSESSMENT AND PLAN: Status post revision of left hip hemiarthroplasty. SAGE VAC being applied right now. Continue recommendations per Dr. Beaver. Continue physical therapy. Job ID: [id number]
[2020-06-06] MEDS: Albuterol Sulfate 2.5 mg/3 ml Neb NEB PRN (14:10)
--- NOTE | 2020-06-06 15:37 | ULT ---
TESTICULAR ULTRASOUND: HISTORY: Severe testicular pain and swelling. COMPARISON: None. TECHNIQUE: Sagittal and transverse imaging of the left and right hemiscrotum are performed. Testicular Doppler i s performed with grayscale, color-flow, Doppler imaging and spectral waveform analysis. FINDINGS: Right hemiscrotum: Testicle: Homogeneous echotexture. No intratesticular masses. Right testicle measurements: 3.3 x 3.0 x 2.3. Right epididymis: Heterogeneous echotexture. 0.5 cm epididymal cyst. Right epididymis measurements: 1.2 x 1.7 cm. Hydrocele: Small to moderate. Left hemiscrotum: Left testicle: Homogeneous echotexture. No intratesticular masses. Left testicle measurements: 3.3 x 2.7 x 1.9 cm. Left epididymis: Heterogeneous echotexture. 0.7 cm cyst. Left epididymis measurements:1.6 x 1.6 cm. Hydrocele: None. Testicular Doppler: There is symmetric vascular flow to the left and right testicle. Scrotal wall: Severe thickening involving the diffuse scrotal wall. IMPRESSION: 1. Small right-sided hydrocele. 2. Bilateral epididymal cysts with mild heterogeneity of the epididymides. No evidence of increased v ascularity to suggest epididymitis. 3. Severe scrotal wall thickening. Correlate with Eladia's gangrene/cellulitis. Transcribed Date/Time: 06/06/2020 3:44 PM
--- NOTE | 2020-06-06 15:45 | PDOC.HOSPP ---
- Subjective Encounter Date: 06/06/20 Encounter Time: 15:00 Subjective: THe patient reports having severe testicular pain and swelling. It started yesterday. He states that his testicle swelling has not improved much and it hurts so bad that he can' t even move. HE had landaverde catheter yesterday and had this removed. Patient did get blood transfusion yesterday, he states that he has no shortness of breath from this and the lasix helped - Objective Vital Signs & Weight: Vital Signs (12 hours) Temp Pulse Resp BP Pulse Ox 06/06/20 14:10 97 22 H 96 06/06/20 12:54 98.1 F 92 20 131/66 96 06/06/20 11:31 90 18 93 L 06/06/20 08:16 98.1 F 81 20 135/72 97 06/06/20 07:42 81 16 95 Weight Admit Weight 195 lb Weight 195 lb I&O: 06/05/20 06/06/20 06/07/20 06:59 06:59 06:59 Intake Total 800 975 Output Total 400 975 Balance 400 0 Result Diagrams: 06/06/20 05:03 06/06/20 05:03 Hospitalist ROS - Review of Systems Constitutional: denies: fever, chills - Medication Medications: Active Medications Generic Name Dose Route Start Last Admin Trade Name Freq PRN Reason Stop Dose Admin Hydrocodone Bitart/Acetaminophen 2 tab 06/02/20 10:54 06/05/20 21:31 [place] 5/325 PO 2 tab Q4H PRN Administration Severe Pain (7-10) Albuterol Sulfate 1.25 mg 06/03/20 18:30 06/06/20 15:11 Albuterol Sulfate NEB Not Given [id number] SHORTY Albuterol Sulfate 2.5 mg 06/03/20 18:12 06/06/20 14:10 Ventolin NEB 2.5 mg Q6H PRN Administration Dyspnea/Wheezing/SOB Aspirin 81 mg 06/03/20 21:00 06/06/20 09:04 Ecotrin PO 81 mg BID SHORTY Administration Atorvastatin Calcium 20 mg 06/02/20 21:00 06/05/20 21:30 Lipitor PO 20 mg HS SHORTY Administration Doxycycline Hyclate 100 mg 06/02/20 21:00 06/06/20 09:05 Vibramycin PO 100 mg BID SHORTY Administration Fentanyl 50 mcg 06/02/20 10:54 06/02/20 14:34 Sublimaze SLOW IVP 50 mcg Q30M PRN Administration Severe breakthrough pain Ferrous Gluconate 324 mg 06/03/20 21:00 06/06/20 09:04 Fergon PO 324 mg BID SHORTY Administration Gabapentin 100 mg 06/02/20 21:00 06/06/20 09:04 Neurontin PO 100 mg BID SHORTY Administration Vancomycin HCl 750 mg/ Sodium 250 mls @ 250 mls/hr 06/05/20 15:00 06/05/20 15 :12 Chloride IVPB 250 mls 1500 SHORTY Administration Meropenem 1 gm/ Sodium 100 mls @ 200 mls/hr 06/06/20 12:00 06/06/20 13:01 Chloride IVPB 100 mls 0000,1200 SHORTY Administration Iron/Minerals/Multivitamins 1 tab 06/04/20 09:00 06/06/20 09:05 Theragran M PO 1 tab DAILY SHORTY Administration Morphine Sulfate 4 mg 06/02/20 10:54 06/03/20 11:58 Morphine SLOW IVP 4 mg Q2H PRN Administration Severe Pain (7-10) Pantoprazole Sodium 40 mg 06/02/20 21:00 06/06/20 09:04 Protonix PO 40 mg BID SHORTY Administration Senna/Docusate Sodium 2 tab 06/03/20 21:00 06/06/20 09:05 Senokot S PO 2 tab BID SHORTY Administration Tamsulosin HCl 0.4 mg 06/03/20 09:00 06/06/20 09:04 Flomax PO 0.4 mg DAILY SHORTY Administration - Exam General Appearance: NAD Eye: PERRL, anicteric sclera ENT: normocephalic atraumatic, no oropharyngeal lesions Neck: supple, symmetric, no JVD, no thyromegaly Heart: RRR, no murmur, no gallops, no rubs Respiratory: CTAB, no wheezes, no rales, no ronchi Gastrointestinal: soft, non-tender, non-distended, normal bowel sounds Extremities: no cyanosis, no clubbing, 1+ LE edema Skin: normal turgor, no lesions, no rashes Skin - other findings: scrotum enlarged and tender, slightly blue. Penis nontender, nondiscolored Neurological: cranial nerve grossly intact, normal sensation to touch, no new deficit Musculoskeletal: normal tone, normal strength, no muscle wasting Musculoskeletal - other findings: pulses 2+ pedal. Left hip swelling and tenderness Psychiatric: normal affect, normal behavior, A&O x 3 Hosp A/P - Plan This is an 79 year old male with past medical history of multiple hip surgeries presenting with left thigh and hip pain Left thigh and hip pain s/p total hip arthroplasty POD2 - bacterial cultures growing Morganella Morganii - antibiotics switched to IV vanc and meropenem. Will need prolonged course of antibiotics will order picc line - WBC is downtrending to 15 - continue norco prn Scrotal swelling/edema - noted to be slightly bluish discoloration, very tender to palpation. Testicular US shows no torsion but possible cellulitis/Eladia - will order urology consult. Continue IV vanc and meropenem #Anemia - possibly blood loss related from surgery. Hb improved with transfusion, continue to monitor #Chronic respiratory failure #Pulm edema - on 3L nasal cannula at baseline - ECHO 06/03 showed severely elevated pulm artery pressure. Was on IV lasix, transitioned to oral lasix NNEKA - creatinine has improved to 2.25. Repeat BMP tomorrow, patient is getting blood transfusion Physical deconditioning - continue PT and OT
--- NOTE | 2020-06-06 16:22 | PRG ---
DATE OF SERVICE: 06/06/2020 SUBJECTIVE: The patient is having issues with scrotal swelling, which is part of his volume overload. The pain in the hip is about the same, mild to moderate. No dyspnea. No chest pain. No vomiting. He is voiding in the urinal. OBJECTIVE: VITAL SIGNS: He continues to be afebrile and the blood pressure 130/66, pulse 97, respirations 22, O2 saturation 96%. GENERAL: He is awake and uncomfortable because of his scrotum and penile swelling. LUNGS: Symmetric. Clear breath sounds. HEART: S1 and S2. Regular rate. ABDOMEN: Soft. : He has quite a bit of scrotal and penile edema and lower extremity edema at least 3+. LABORATORY DATA: White cell count 15.2, hemoglobin 7.7, platelets 225. Creatinine is at 2.25, which is close to his baseline, a little bit higher, not as much as before. Albumin 2.9. MICROBIOLOGY: We have Morganella morganii. This is retrieved from the nutrient broth only. The patient had a testicular ultrasound as well. ASSESSMENT AND DISCUSSION: Chronic renal insufficiency stage 3 to 4; atrial fibrillation; hypertension; chronic obstructive pulmonary disease, on home O2 with multiple complications following hemiarthroplasty; now has had total hip replacement revision. 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 This could represent contamination of the sample rather than true pathogen, but we will have to treat it anyway, so go ahead and add to the vancomycin, the meropenem, and he is quite a bit of volume overloaded and will need to be diuresed to improve his scrotal edema and lower extremity edema. Job ID: [id number]
[2020-06-06] MEDS: Vancomycin HCl 750 MG in Sodium Chloride 0.9% 250 ML 250 ML IVPB SCH (16:42)
--- NOTE | 2020-06-06 19:35 | CT ---
CT abdomen and pelvis noncontrast HISTORY: Testicular pain. Scrotal swelling. Fourier's gangrene. COMPARISON: 08/16/2018. FINDINGS: Minimal bibasilar atelectasis of the lungs with minimal bilateral pleural fluid. Old left p osterolateral rib fractures. Low-density lesions within the liver, presumed cysts, are stable. Prominent calcification throughout the arterial structures. Low-density hypertrophy of the left adrenal gland is stable. There is edematous stranding throughout the subcutaneous fat, most pronounced at each side of the low er abdomen. Left hip prosthesis now in place with small amount of adjacent soft tissue gas. Prominent fluid infiltration throughout the soft tissues of the scrotum. No focal abscess collection. No internal gas evident. Partial compression of the T12 and L1 vertebral bodies has developed since the 2018 CT exam. IMPRESSION : Prominent edema and fluid infiltration throughout the scrotum without soft tissue gas or evidence of abscess. Prominent atherosclerosis. Interval development of partial compression fractures at T12 and L1. Recent postoperative changes left hip. Chronic-type findings are stable.
[2020-06-06] MEDS: Atorvastatin Calcium 20 MG TAB PO SCH (21:57)
[2020-06-06] MEDS: HYDROcodone/Acetaminophen 5/325 mg Tablet PO PRN (21:57)
[2020-06-06] MEDS ORDERED: Furosemide 20 MG/2 ML VIAL SLOW IVP SCH (23:30)
[2020-06-06] MEDS ORDERED: Calcium Gluconate 4.6 MEQ in Sodium Chloride 0.9% 100 ML IVPB SCH (23:30)
[2020-06-06] MEDS: MEROPENEM 1 GM/50 ML 1 GM in Premix Bag 1 BAG IVPB SCH (23:50)
[2020-06-07] MEDS: Albuterol Sulfate 1.25 MG/3 ML NEB NEB SCH ×6 (02:22→22:02)
[2020-06-07 04:59] LABS: Hemoglobin 8.3 g/dL (14.0-18.0); Mean Corpuscular HGB CONC 30.2 g/dL (32.0-36.0); Mean Corpuscular Hemoglobin 26.4 pg (27.0-31.0); Mean Corpuscular Volume 87.3 fL (78.0-98.0); Mean Platelet Volume 8.9 fL (7.4-10.4); Platelet Count 236 thou/uL (130-400); RBC Distribution Width 17.4 % (11.5-14.5); Red Blood Cell (RBC) Count 3.15 mill/uL (4.70-6.10); White Blood Cell (WBC) Count 19.7 thou/uL (4.8-10.8)
[2020-06-07 05:35] LABS: Anion Gap 14 mmol/L (10-20); BUN (Urea Nitrogen) 40 mg/dL (8.4-25.7); Calc. Creatinine Clearance 37 mL/min (70-130); Calcium 7.6 mg/dL (7.8-10.44); Carbon Dioxide 25 mmol/L (23-31); Chloride 103 mmol/L (98-107); Estimated GFR-MDRD 32; Glucose 91 mg/dL (83-110); Potassium 3.8 mmol/L (3.5-5.1); Sodium 138 mmol/L (136-145)
[2020-06-07 05:45] LABS: Phosphorus 3.1 mg/dL (2.3-4.7)
[2020-06-07] MEDS ORDERED: Furosemide 40 MG/4 ML VIAL SLOW IVP SCH (09:00)
[2020-06-07] MEDS: Doxycycline 100 MG CAP PO SCH ×2 (09:11→21:16)
[2020-06-07] MEDS: Ferrous Gluconate 324 MG TAB PO SCH ×2 (09:12→21:16)
[2020-06-07] MEDS: Tamsulosin HCl 0.4 MG CAP PO SCH (09:12)
[2020-06-07] MEDS: Senokot S 8.6-50 MG TAB PO SCH ×2 (09:12→21:16)
[2020-06-07] MEDS: Gabapentin 100 MG CAP PO SCH ×2 (09:12→21:16)
[2020-06-07] MEDS: Aspirin 81 mg Enteric Coated Tablet PO SCH ×2 (09:12→21:16)
[2020-06-07] MEDS: Multivitamin W/ Minerals 1 TAB PO SCH (09:12)
[2020-06-07] MEDS: Cholecalciferol (Vitamin D3) 400 UNITS TAB PO SCH (09:18)
[2020-06-07] MEDS ORDERED: Metolazone 5 MG TAB PO SCH (09:30)
--- NOTE | 2020-06-07 09:53 | PRG ---
DATE OF SERVICE: 06/07/2020 SUBJECTIVE: Mr. Mart is tremendously volume overloaded with severe scrotal and penile edema and lower extremity edema. OBJECTIVE: VITAL SIGNS: Blood pressure is 159/87, pulse in the 90s. LUNGS: Clear. CARDIAC: Normal S1, normal S2. ABDOMEN: Soft. EXTREMITIES: There is extreme severe edema in his legs, scrotum, and penis. ASSESSMENT: 1. Tremendous volume overload related to COPD with right heart failure and diastolic heart failure. 2. Recent orthopedic surgery. 3. Renal insufficiency. PLAN: 1. Give him intravenous Lasix 40 mg now, then twice a day. 2. Give him one dose of metolazone. 3. Give him a dose of potassium. Job ID: [id number] MTDD
[2020-06-07] MEDS ORDERED: Potassium Chloride 20 MEQ TAB PO SCH (12:00)
[2020-06-07] MEDS: MEROPENEM 1 GM/50 ML 1 GM in Premix Bag 1 BAG IVPB SCH ×2 (12:38→23:44)
[2020-06-07 14:43] LABS: Vancomycin, Trough 25.3 ug/mL
[2020-06-07] MEDS: Furosemide 40 MG/4 ML VIAL SLOW IVP SCH (15:28)
--- NOTE | 2020-06-07 16:19 | PRG ---
DATE OF SERVICE: 06/07/2020 SUBJECTIVE: The patient reports that his scrotum is very uncomfortable due to the edema. He feels he is voiding well at this point. OBJECTIVE: VITAL SIGNS: Afebrile, mild tachycardia, otherwise vitals are stable. Good urine output. ABDOMEN: Soft, nontender, nondistended. Mild lower abdominal edema with fairly significant bilateral lower extremity edema and significant scrotal edema as well as the foreskin. There is no evidence of abscess, erythema, or crepitus. CT from yesterday reviewed showing edema of the scrotal wall, but no abscess or gas in the tissue. ASSESSMENT AND PLAN: Scrotal edema. This issue will not resolve until the patient is able to ambulate and is regaining his normal activity. While he is lying in bed, he is going to continue to develop scrotal edema. The only things that can be done while he is in bed are to keep the scrotum elevated and IV Lasix as tolerated. Please call with further questions. Job ID: [id number]
[2020-06-07] MEDS: Acetaminophen 325 MG TAB PO PRN (17:51)
--- NOTE | 2020-06-07 18:34 | PDOC.HOSPP ---
- Subjective Encounter Date: 06/07/20 Encounter Time: 15:30 Subjective: The patient continues to complain of scrotal pain. He is not able to answer many questions and repeatedly says "help me." The patient states he is SOB. He states he has pain all over - Objective Vital Signs & Weight: Vital Signs (12 hours) Temp Pulse Resp BP Pulse Ox 06/07/20 18:05 112 H 28 H 112 H 06/07/20 16:00 102.3 F H 111 H 16 158/78 H 85 L 06/07/20 14:34 102 H 20 96 06/07/20 10:50 98.4 F 102 H 16 158/72 H 94 L 06/07/20 10:36 106 H 20 94 L 06/07/20 08:00 100 06/07/20 07:51 97.5 F L 98 18 159/87 H 100 06/07/20 07:26 102 H 22 H 96 Weight Admit Weight 195 lb Weight 195 lb I&O: 06/06/20 06/07/20 06/08/20 06:59 06:59 06:59 Intake Total 975 2680 Output Total 975 1950 1500 Balance 0 730 -1500 Result Diagrams: 06/07/20 04:39 06/07/20 04:39 Hospitalist ROS - Review of Systems Constitutional: denies: fever, chills - Medication Medications: Active Medications Generic Name Dose Route Start Last Admin Trade Name Freq PRN Reason Stop Dose Admin Acetaminophen 650 mg 06/03/20 16:52 06/07/20 17:51 Tylenol PO 650 mg Q4H PRN Administration Headache/Fever or Pain Hydrocodone Bitart/Acetaminophen 2 tab 06/02/20 10:54 06/06/20 21:57 [place] 5/325 PO 2 tab Q4H PRN Administration Severe Pain (7-10) Albuterol Sulfate 1.25 mg 06/03/20 18:30 06/07/20 18:05 Albuterol Sulfate NEB 1.25 mg [id number] SHORTY Administration Albuterol Sulfate 2.5 mg 06/03/20 18:12 06/06/20 14:10 Ventolin NEB 2.5 mg Q6H PRN Administration Dyspnea/Wheezing/SOB Aspirin 81 mg 06/03/20 21:00 06/07/20 09:12 Ecotrin PO 81 mg BID SHORTY Administration Atorvastatin Calcium 20 mg 06/02/20 21:00 06/06/20 21:57 Lipitor PO 20 mg HS SHORTY Administration Cholecalciferol 800 units 06/07/20 09:00 06/07/20 09:18 Vitamin D PO 800 units DAILY SHORTY Administration Doxycycline Hyclate 100 mg 06/02/20 21:00 06/07/20 09:11 Vibramycin PO 100 mg BID SHORTY Administration Fentanyl 50 mcg 06/02/20 10:54 06/02/20 14:34 Sublimaze SLOW IVP 50 mcg Q30M PRN Administration Severe breakthrough pain Ferrous Gluconate 324 mg 06/03/20 21:00 06/07/20 09:12 Fergon PO 324 mg BID SHORTY Administration Furosemide 40 mg 06/07/20 14:00 06/07/20 15:28 Lasix SLOW IVP 40 mg 0600,1400 SHORTY Administration Gabapentin 100 mg 06/02/20 21:00 06/07/20 09:12 Neurontin PO 100 mg BID SHORTY Administration Meropenem 1 gm/ Device 50 mls @ 100 mls/hr 06/07/20 00:00 06/07/20 12:38 IVPB 50 mls 0000,1200 SHORTY Administration Iron/Minerals/Multivitamins 1 tab 06/04/20 09:00 06/07/20 09:12 Theragran M PO 1 tab DAILY SHORTY Administration Morphine Sulfate 4 mg 06/02/20 10:54 06/03/20 11:58 Morphine SLOW IVP 4 mg Q2H PRN Administration Severe Pain (7-10) Pantoprazole Sodium 40 mg 06/02/20 21:00 06/07/20 09:12 Protonix PO 40 mg BID SHORTY Administration Senna/Docusate Sodium 2 tab 06/03/20 21:00 06/07/20 09:12 Senokot S PO 2 tab BID SHORTY Administration Tamsulosin HCl 0.4 mg 06/03/20 09:00 06/07/20 09:12 Flomax PO 0.4 mg DAILY SHORTY Administration - Exam General - other findings: appears to have labored breathing ENT: normocephalic atraumatic, no oropharyngeal lesions Neck: no JVD Heart: RRR, no murmur, no gallops, no rubs Respiratory: CTAB, no wheezes, no rales, no ronchi Gastrointestinal: soft, non-tender, non-distended, normal bowel sounds Skin - other findings: scrotal swelling has improved, not as purple. Mild tender to palpation Neurological - other findings: seems slightly confused Musculoskeletal - other findings: left hip tenderness with mild erythema and bruising Hosp A/P - Plan This is an 79 year old male with past medical history of multiple hip surgeries presenting with left thigh and hip pain Left thigh and hip pain s/p total hip arthroplasty POD3 - bacterial cultures growing Morganella Morganii. On vanc and meropenem. WBC trending up but will continue to monitor - continue norco prn Scrotal swelling/edema - likely fluid overload - testicular ultrasound showed possible cellulitis. CT abdomen showed edema, no air or gas. Urology consulted, thought it was more from edema - continue IV lasix bid , cardiology is following #Chronic respiratory failure #Pulm edema - on 3L nasal cannula at baseline - ECHO 06/03 showed severely elevated pulm artery pressure. Placed back on lasix 40 mg IV bid by cardiology -06/07: I will repeat chest Xray today since he appears very SOB NNEKA - creatinine has improved to 2.01. Repeat BMP tomorrow, patient is getting blood transfusion #Anemia - possibly blood loss related from surgery. Hb improved to 8.3 Hypocalcemia - possibly from vitamin D deficiency - calcium 6.9, given calcium gluconate 06/06, improved to 7 - started on vitamin D supplementation given slightly low levels of 23 Physical deconditioning - continue PT and OT
--- NOTE | 2020-06-07 19:33 | RAD ---
Chest one view HISTORY: Dyspnea. COMPARISON: Multiple exams back to 03/14/2020. FINDINGS: Cardiac silhouette is magnified and enlarged. Pulmonary vasculature remains upper limits of normal. Widespread reticulonodular interstitial prominence is similar in appearance to the prior study. Mediastinum is slightly shifted rightward with patient rotation. Aortic calcification and metallic co ils are again demonstrated. Left upper extremity PICC in place. IMPRESSION : Chronic-type findings are stable. No new abnormalities are demonstrated.
[2020-06-07] MEDS: Atorvastatin Calcium 20 MG TAB PO SCH (21:16)
[2020-06-07] MEDS: HYDROcodone/Acetaminophen 5/325 mg Tablet PO PRN (22:23)
[2020-06-08] MEDS: Albuterol Sulfate 1.25 MG/3 ML NEB NEB SCH ×6 (02:16→22:18)
[2020-06-08 04:26] LABS: Mean Corpuscular HGB CONC 30.3 g/dL (32.0-36.0); Mean Corpuscular Hemoglobin 26.4 pg (27.0-31.0); Mean Corpuscular Volume 87.2 fL (78.0-98.0); Mean Platelet Volume 9.1 fL (7.4-10.4); Platelet Count 203 thou/uL (130-400); RBC Distribution Width 17.5 % (11.5-14.5); Red Blood Cell (RBC) Count 3.04 mill/uL (4.70-6.10); White Blood Cell (WBC) Count 12.7 thou/uL (4.8-10.8)
[2020-06-08] MEDS: Furosemide 40 MG/4 ML VIAL SLOW IVP SCH ×2 (05:17→14:57)
[2020-06-08 05:35] LABS: Anion Gap 12 mmol/L (10-20); BUN (Urea Nitrogen) 39 mg/dL (8.4-25.7); Calc. Creatinine Clearance 37 mL/min (70-130); Calcium 7.6 mg/dL (7.8-10.44); Carbon Dioxide 25 mmol/L (23-31); Chloride 102 mmol/L (98-107); Estimated GFR-MDRD 32; Glucose 92 mg/dL (83-110); Potassium 3.7 mmol/L (3.5-5.1); Sodium 135 mmol/L (136-145); Vancomycin, Random 19.1 ug/mL (See Comment)
[2020-06-08] MEDS: Doxycycline 100 MG CAP PO SCH ×2 (08:11→20:43)
[2020-06-08] MEDS: Aspirin 81 mg Enteric Coated Tablet PO SCH ×2 (08:11→20:43)
[2020-06-08] MEDS: Tamsulosin HCl 0.4 MG CAP PO SCH (08:12)
[2020-06-08] MEDS: Ferrous Gluconate 324 MG TAB PO SCH ×2 (08:12→20:43)
[2020-06-08] MEDS: Multivitamin W/ Minerals 1 TAB PO SCH (08:12)
[2020-06-08] MEDS: Senokot S 8.6-50 MG TAB PO SCH ×2 (08:12→20:43)
[2020-06-08] MEDS: Gabapentin 100 MG CAP PO SCH ×2 (08:12→20:43)
[2020-06-08] MEDS: Cholecalciferol (Vitamin D3) 400 UNITS TAB PO SCH (08:12)
[2020-06-08] MEDS ORDERED: Metolazone 5 MG TAB PO SCH (09:00)
[2020-06-08] MEDS: MEROPENEM 1 GM/50 ML 1 GM in Premix Bag 1 BAG IVPB SCH ×2 (13:55→23:24)
--- NOTE | 2020-06-08 14:40 | PDOC.HOSPP ---
- Subjective Encounter Date: 06/08/20 Encounter Time: 13:00 Subjective: The patient appears to be much better, breathing not as labored. He says his scrotal swelling has improved. He got out of bed to stand with PT and had a lot of pain with that. He states PT is going to work with him again in the afternoon He denies chest pain. - Objective Vital Signs & Weight: Vital Signs (12 hours) Temp Pulse Resp BP Pulse Ox 06/08/20 14:23 97 20 92 L 06/08/20 11:03 98.2 F 100 14 126/65 92 L 06/08/20 10:01 109 H 20 96 06/08/20 08:00 91 L 06/08/20 07:10 97.8 F 88 16 130/76 98 06/08/20 05:23 88 16 06/08/20 03:49 97.8 F 85 20 119/66 91 L Weight Admit Weight 195 lb Weight 195 lb I&O: 06/07/20 06/08/20 06/09/20 06:59 06:59 06:59 Intake Total 2680 770 Output Total 1950 0 Balance 730 -1280 Result Diagrams: 06/08/20 04:06 06/08/20 04:06 Hospitalist ROS - Review of Systems Constitutional: denies: fever, chills - Medication Medications: Active Medications Generic Name Dose Route Start Last Admin Trade Name Freq PRN Reason Stop Dose Admin Acetaminophen 650 mg 06/03/20 16:52 06/07/20 17:51 Tylenol PO 650 mg Q4H PRN Administration Headache/Fever or Pain Hydrocodone Bitart/Acetaminophen 2 tab 06/02/20 10:54 06/07/20 22:23 [place] 5/325 PO 2 tab Q4H PRN Administration Severe Pain (7-10) Albuterol Sulfate 1.25 mg 06/03/20 18:30 06/08/20 14:23 Albuterol Sulfate NEB 1.25 mg [id number] SHORTY Administration Albuterol Sulfate 2.5 mg 06/03/20 18:12 06/06/20 14:10 Ventolin NEB 2.5 mg Q6H PRN Administration Dyspnea/Wheezing/SOB Aspirin 81 mg 06/03/20 21:00 06/08/20 08:11 Ecotrin PO 81 mg BID SHORTY Administration Atorvastatin Calcium 20 mg 06/02/20 21:00 06/07/20 21:16 Lipitor PO 20 mg HS SHORTY Administration Cholecalciferol 800 units 06/07/20 09:00 06/08/20 08:12 Vitamin D PO 800 units DAILY SHORTY Administration Doxycycline Hyclate 100 mg 06/02/20 21:00 06/08/20 08:11 Vibramycin PO 100 mg BID SHORTY Administration Fentanyl 50 mcg 06/02/20 10:54 06/02/20 14:34 Sublimaze SLOW IVP 50 mcg Q30M PRN Administration Severe breakthrough pain Ferrous Gluconate 324 mg 06/03/20 21:00 06/08/20 08:12 Fergon PO 324 mg BID SHORTY Administration Furosemide 40 mg 06/07/20 14:00 06/08/20 05:17 Lasix SLOW IVP 40 mg 0600,1400 SHORTY Administration Gabapentin 100 mg 06/02/20 21:00 06/08/20 08:12 Neurontin PO 100 mg BID SHORTY Administration Meropenem 1 gm/ Device 50 mls @ 100 mls/hr 06/07/20 00:00 06/08/20 13:55 IVPB 50 mls 0000,1200 SHORTY Administration Iron/Minerals/Multivitamins 1 tab 06/04/20 09:00 06/08/20 08:12 Theragran M PO 1 tab DAILY SHORTY Administration Morphine Sulfate 4 mg 06/02/20 10:54 06/03/20 11:58 Morphine SLOW IVP 4 mg Q2H PRN Administration Severe Pain (7-10) Pantoprazole Sodium 40 mg 06/02/20 21:00 06/08/20 08:12 Protonix PO 40 mg BID SHORTY Administration Senna/Docusate Sodium 2 tab 06/03/20 21:00 06/08/20 08:12 Senokot S PO 2 tab BID SHORTY Administration Sodium Chloride 10 ml 06/03/20 16:52 06/07/20 21:16 Flush - Normal Saline IVF 10 ml PRN PRN Administration Saline Flush Tamsulosin HCl 0.4 mg 06/03/20 09:00 06/08/20 08:12 Flomax PO 0.4 mg DAILY SHORTY Administration - Exam General Appearance: NAD, awake alert General - other findings: on nasal cannula Eye: PERRL, anicteric sclera ENT: normocephalic atraumatic, no oropharyngeal lesions Neck: no JVD Heart: RRR, no murmur, no gallops, no rubs Respiratory: CTAB, no wheezes, no rales, no ronchi Gastrointestinal: soft, non-tender, non-distended, normal bowel sounds Extremities: no cyanosis, no clubbing Extremities - other findings: 4+ edema Skin: normal turgor, no lesions Skin - other findings: hip not as tender to palpation on the hip, and less red Neurological: cranial nerve grossly intact, normal sensation to touch, no focal deficits, no new deficit Musculoskeletal - other findings: can move all four extremities Hosp A/P - Plan Chest X ray: widespread interstitial reticulonodular prominence This is an 79 year old male with past medical history of multiple hip surgeries presenting with left thigh and hip pain Left thigh and hip pain 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 On vanc and meropenem. WBC trending down continue to monitor Acute diastolic heart failure secondary to pulmonary edema - ECHO 06/03 showed severely elevated pulm artery pressure . Chest X ray shows widespread interstitial reticulonodular prominence - continue IV lasix 40 mg bid. Metolazone was added by cardiology Scrotal swelling/edema - likely fluid overload - testicular ultrasound showed possible cellulitis. CT abdomen showed edema, no air or gas. Urology consulted, thought it was more from edema - continue IV lasix NNEKA - likely cardiorenal - creatinine has improved to 1.99. Continue IV lasix #Anemia - possibly blood loss related from surgery. Hb improved to 8.0 Hypocalcemia - possibly from vitamin D deficiency - calcium 6.9, given calcium gluconate 06/06, improved to 7 - started on vitamin D supplementation given slightly low levels of 23 Physical deconditioning - continue PT and OT
[2020-06-08 14:55] LABS: Vancomycin, Random 17.8 ug/mL (See Comment)
[2020-06-08] MEDS ORDERED: Vancomycin HCl 750 MG in Sodium Chloride 0.9% 250 ML 250 ML IVPB SCH (15:00)
[2020-06-08] MEDS: Vancomycin HCl 500 MG in Sodium Chloride 0.9% 100 ML IVPB SCH (16:21)
--- NOTE | 2020-06-08 18:45 | PRG ---
DATE OF SERVICE: 06/08/2020 SUBJECTIVE: Bin is an 79-year-old male who is postoperative day #4 from a revision left total hip arthroplasty, which was demonstrated Morganella morganii, gram-negative rods. Otherwise, his hip feels better, but he still has yet to walk. OBJECTIVE: His wound VAC is in place. Scant drainage. No erythema. He does have some significant bruising. IMPRESSION: Overall, I think Bin is in a slow decline at this point. He has yet to walk from his revision surgery. He has multiple comorbidities, but we will continue to follow and encourage him. I think we will re-evaluate susceptibility and antibiotic therapy. Job ID: [id number]
[2020-06-08] MEDS: Atorvastatin Calcium 20 MG TAB PO SCH (20:43)
[2020-06-09] MEDS: Albuterol Sulfate 1.25 MG/3 ML NEB NEB SCH ×6 (02:46→22:03)
[2020-06-09] MEDS: Furosemide 40 MG/4 ML VIAL SLOW IVP SCH ×2 (04:56→19:11)
[2020-06-09 05:21] LABS: Hemoglobin 8.3 g/dL (14.0-18.0); Mean Corpuscular HGB CONC 30.3 g/dL (32.0-36.0); Mean Corpuscular Hemoglobin 26.3 pg (27.0-31.0); Mean Corpuscular Volume 86.9 fL (78.0-98.0); Mean Platelet Volume 9.4 fL (7.4-10.4); Platelet Count 216 thou/uL (130-400); RBC Distribution Width 17.4 % (11.5-14.5); Red Blood Cell (RBC) Count 3.13 mill/uL (4.70-6.10); White Blood Cell (WBC) Count 10.7 thou/uL (4.8-10.8)
[2020-06-09 05:52] LABS: Anion Gap 13 mmol/L (10-20); BUN (Urea Nitrogen) 40 mg/dL (8.4-25.7); Calc. Creatinine Clearance 44 mL/min (70-130); Calcium 7.9 mg/dL (7.8-10.44); Carbon Dioxide 24 mmol/L (23-31); Chloride 102 mmol/L (98-107); Estimated GFR-MDRD 35; Glucose 107 mg/dL (83-110); Potassium 3.1 mmol/L (3.5-5.1); Sodium 136 mmol/L (136-145)
[2020-06-09] MEDS ORDERED: Potassium Chloride 20 MEQ TAB PO SCH ×2 (07:45→17:00)
[2020-06-09] MEDS ORDERED: Metolazone 5 MG TAB PO SCH (08:15)
[2020-06-09] MEDS: Multivitamin W/ Minerals 1 TAB PO SCH (08:59)
[2020-06-09] MEDS: Aspirin 81 mg Enteric Coated Tablet PO SCH ×2 (08:59→20:43)
[2020-06-09] MEDS: Ferrous Gluconate 324 MG TAB PO SCH ×2 (08:59→20:44)
[2020-06-09] MEDS: Doxycycline 100 MG CAP PO SCH ×2 (08:59→20:44)
[2020-06-09] MEDS: Cholecalciferol (Vitamin D3) 400 UNITS TAB PO SCH (08:59)
[2020-06-09] MEDS: Gabapentin 100 MG CAP PO SCH ×2 (08:59→20:44)
[2020-06-09] MEDS: Tamsulosin HCl 0.4 MG CAP PO SCH (08:59)
[2020-06-09] MEDS: Senokot S 8.6-50 MG TAB PO SCH ×2 (09:00→20:44)
[2020-06-09] MEDS: Enoxaparin Sodium 40 MG/0.4 ML SYRINGE SC SCH (09:00)
--- NOTE | 2020-06-09 09:07 | PRG ---
DATE OF SERVICE: 06/09/2020 SUBJECTIVE: Mr. Mart still complains of severe testicular pain due to the edema. His breathing is okay. No chest pain. OBJECTIVE: VITAL SIGNS: Blood pressure is 137/75; pulse is in the 80s, it is regular. LUNGS: Some expiratory wheezing, but mild. CARDIAC: Normal S1, normal S2. ABDOMEN: Soft and nontender. EXTREMITIES: There is only moderate edema, now it is improved, but he still has a significant edema in his legs. : Scrotal edema is slightly improved, but still severe. PERTINENT LABORATORY: Interestingly, his creatinine has dropped to 1.87 with the diuresis. Potassium is 3.1. Reviewing the I and O, I think it is probably not accurate as it looks like he is putting out a lot of urine. The weights do not seem to be reliable, weighed 195, now 218, so this does not seem reliable. ASSESSMENT: 1. Chronic congestive heart failure, diastolic. 2. Volume overload, improving slowly. 3. Postoperative status. PLAN: 1. Continue with metolazone. 2. Continue with furosemide. 3. Replete potassium. 4. He is to be on DVT prophylaxis, high risk of deep venous thrombosis. Job ID: [id number] [facility]
--- NOTE | 2020-06-09 10:34 | PRG ---
DATE OF SERVICE: 06/09/2020 SUBJECTIVE: The patient is an 79-year-old male, who is status post revision left total hip arthroplasty, postoperative day #5. This has demonstrated Morganella morganii, gram-negative rods. Yesterday, he took a few steps with Physical Therapy. Today, he states he is feeling that he is starting to improve. He would like to walk, but his main complaint is his scrotal swelling at this time. OBJECTIVE: VITAL SIGNS: Stable. SKIN: His SAGE vac is in place and has a good suction. No erythema. He does have some bruising. NEUROLOGIC: Distal neurovascular status intact. IMPRESSION: The patient seems to have improved some since yesterday. We will see how he does today with physical therapy. We will continue to encourage him with movement. Job ID: [id number]
[2020-06-09] MEDS: MEROPENEM 1 GM/50 ML 1 GM in Premix Bag 1 BAG IVPB SCH (14:26)
[2020-06-09] MEDS ORDERED: Furosemide 100 MG in Sodium Chloride 0.9% 100 ML IVPB SCH (15:45)
--- NOTE | 2020-06-09 15:46 | PDOC.HOSPP ---
- Subjective Encounter Date: 06/09/20 Encounter Time: 13:00 Subjective: Patient states that he is feeling better compared to yesterday however he still is noted to have significant amounts of fluid overload. He stood up with physical therapy but was unable to walk or stand for a long period of time. Patient was told that he has lost a few pounds with the Lasix. states that the last time the patient was here he was discharged to rehab too early and felt that the patient should have been diuresed more prior to rehab. She states normally the patient's legs are smaller than hers. Patient states that his hip pain has improved however he still reports pain in his scrotum. - Objective Vital Signs & Weight: Vital Signs (12 hours) Temp Pulse Resp BP Pulse Ox 06/09/20 11:31 98.0 F 86 18 120/65 93 L 06/09/20 10:14 101 H 16 91 L 06/09/20 08:00 96 06/09/20 07:54 97.4 F L 84 18 137/75 96 06/09/20 06:37 89 16 95 06/09/20 04:00 97 Weight Admit Weight 195 lb Weight 218 lb I&O: 06/08/20 06/09/20 06/10/20 06:59 06:59 06:59 Intake Total 770 1810 Output Total 2050 1875 Balance -1280 -65 Result Diagrams: 06/09/20 05:08 06/09/20 05:08 Hospitalist ROS - Review of Systems Constitutional: denies: fever, chills - Medication Medications: Active Medications Generic Name Dose Route Start Last Admin Trade Name Lucy PRN Reason Stop Dose Admin Acetaminophen 650 mg 06/03/20 16:52 06/07/20 17:51 Tylenol PO 650 mg Q4H PRN Administration Headache/Fever or Pain Hydrocodone Bitart/Acetaminophen 2 tab 06/02/20 10:54 06/07/20 22:23 [place] 5/325 PO 2 tab Q4H PRN Administration Severe Pain (7-10) Albuterol Sulfate 1.25 mg 06/03/20 18:30 06/09/20 14:38 Albuterol Sulfate NEB 1.25 mg [id number] SHORTY Administration Albuterol Sulfate 2.5 mg 06/03/20 18:12 06/06/20 14:10 Ventolin NEB 2.5 mg Q6H PRN Administration Dyspnea/Wheezing/SOB Aspirin 81 mg 06/03/20 21:00 06/09/20 08:59 Ecotrin PO 81 mg BID SHORTY Administration Atorvastatin Calcium 20 mg 06/02/20 21:00 06/08/20 20:43 Lipitor PO 20 mg HS SHORTY Administration Cholecalciferol 800 units 06/07/20 09:00 06/09/20 08:59 Vitamin D PO 800 units DAILY SHORTY Administration Doxycycline Hyclate 100 mg 06/02/20 21:00 06/09/20 08:59 Vibramycin PO 100 mg BID SHORTY Administration Enoxaparin Sodium 40 mg 06/09/20 09:00 06/09/20 09:00 Lovenox SC 40 mg 0900 SHORTY Administration Fentanyl 50 mcg 06/02/20 10:54 06/02/20 14:34 Sublimaze SLOW IVP 50 mcg Q30M PRN Administration Severe breakthrough pain Ferrous Gluconate 324 mg 06/03/20 21:00 06/09/20 08:59 Fergon PO 324 mg BID SHORTY Administration Gabapentin 100 mg 06/02/20 21:00 06/09/20 08:59 Neurontin PO 100 mg BID SHORTY Administration Meropenem 1 gm/ Device 50 mls @ 100 mls/hr 06/07/20 00:00 06/09/20 14:26 IVPB 50 mls 0000,1200 SHORTY Administration Vancomycin HCl 500 mg/ Sodium 100 mls @ 100 mls/hr 06/08/20 16:00 06/08/20 16 :21 Chloride IVPB 100 mls Q2D@1600 SHORTY Administration Iron/Minerals/Multivitamins 1 tab 06/04/20 09:00 06/09/20 08:59 Theragran M PO 1 tab DAILY SHORTY Administration Morphine Sulfate 4 mg 06/02/20 10:54 06/03/20 11:58 Morphine SLOW IVP 4 mg Q2H PRN Administration Severe Pain (7-10) Pantoprazole Sodium 40 mg 06/02/20 21:00 06/09/20 08:59 Protonix PO 40 mg BID SHORTY Administration Senna/Docusate Sodium 2 tab 06/03/20 21:00 06/09/20 09:00 Senokot S PO 2 tab BID SHORTY Administration Sodium Chloride 10 ml 06/03/20 16:52 06/08/20 15:10 Flush - Normal Saline IVF 10 ml PRN PRN Administration Saline Flush Tamsulosin HCl 0.4 mg 06/03/20 09:00 06/09/20 08:59 Flomax PO 0.4 mg DAILY SHORTY Administration - Exam General Appearance: NAD, awake alert General - other findings: on nasal cannula Eye: PERRL, anicteric sclera ENT: normocephalic atraumatic, no oropharyngeal lesions Neck: no JVD Heart: RRR, no murmur, no gallops, no rubs Respiratory: CTAB, no wheezes, no rales, no ronchi Gastrointestinal: soft, non-tender, non-distended, normal bowel sounds Extremities - other findings: 3+ edema in the legs. Skin - other findings: improving erythema on the left hip, slightly tender to palpation Neurological: cranial nerve grossly intact, normal sensation to touch, no new deficit Musculoskeletal: normal tone, normal strength, no muscle wasting Psychiatric: normal affect, normal behavior, A&O x 3, oriented to person Hosp A/P - Plan Chest X ray: widespread interstitial reticulonodular prominence Testicular ultrasound: Small right-sided hydrocele. Bilateral epididymal cysts with mild heterogeneity of the epididymis. Severe scrotal wall thickening. CT abdomen: prominent edema and fluid infiltration throughout the scrotum without soft tissue gas or evidence of abscess. 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 On vanc and meropenem. WBC has trended down. Will need antibiotics through the end of June per Dr. Beaver Acute diastolic heart failure secondary to pulmonary edema - ECHO 06/03 showed severely elevated pulm artery pressure . Chest X ray shows widespread interstitial reticulonodular prominence -Was on IV Lasix twice daily and metolazone per cardiology. However given persistent edema, will transition to a Lasix drip. I have discussed this with cardiology. Scrotal swelling/edema - likely fluid overload - testicular ultrasound showed possible cellulitis. CT abdomen showed edema, no air or gas. Urology consulted, thought it was more from edema - lasix drip as mentioned above. NNEKA - likely cardiorenal - creatinine has improved to 1.87. Continue IV lasix #Anemia - possibly blood loss related from surgery. He received blood transfusion on . Globin 8.3 Hypocalcemia - possibly from vitamin D deficiency - resolved, - started on vitamin D supplementation given slightly low levels of 23 Physical deconditioning - continue PT and OT DVT prophylaxis: lovenox GI prophylaxis: not needed Disposition: will need rehab on discharge
[2020-06-09] MEDS ORDERED: Furosemide 100 MG, Admixture Fee 1 EACH in Sodium Chloride 0.9% 100 ML IVPB SCH (16:30)
[2020-06-09] MEDS: Atorvastatin Calcium 20 MG TAB PO SCH (20:44)
[2020-06-10] MEDS: MEROPENEM 1 GM/50 ML 1 GM in Premix Bag 1 BAG IVPB SCH ×3 (00:19→23:30)
[2020-06-10] MEDS: Albuterol Sulfate 1.25 MG/3 ML NEB NEB SCH ×6 (01:58→22:06)
[2020-06-10 05:31] LABS: #Eosinphils 0.1 thou/uL (0.0-0.7); #Lymphocytes 1.2 thou/uL (1.20-3.40); #Neutrophils 8.3 thou/uL (1.40-6.50); %Basophils 0.1 % (0.0-1.0); %Eosinophils 0.8 % (0.0-10.0); %Lymphocytes 11.1 % (21.0-51.0); %Monocytes 9.3 % (0.0-10.0); %Neutrophils 78.7 % (42.0-75.0); Hemoglobin 8.1 g/dL (14.0-18.0); Mean Corpuscular HGB CONC 29.8 g/dL (32.0-36.0); Mean Corpuscular Hemoglobin 26.2 pg (27.0-31.0); Mean Corpuscular Volume 87.9 fL (78.0-98.0); Mean Platelet Volume 8.9 fL (7.4-10.4); Platelet Count 231 thou/uL (130-400); RBC Distribution Width 17.4 % (11.5-14.5); Red Blood Cell (RBC) Count 3.09 mill/uL (4.70-6.10); White Blood Cell (WBC) Count 10.5 thou/uL (4.8-10.8)
[2020-06-10 05:33] LABS: Anion Gap 12 mmol/L (10-20); BUN (Urea Nitrogen) 38 mg/dL (8.4-25.7); Calc. Creatinine Clearance 42 mL/min (70-130); Calcium 7.5 mg/dL (7.8-10.44); Carbon Dioxide 26 mmol/L (23-31); Chloride 102 mmol/L (98-107); Estimated GFR-MDRD 33; Glucose 96 mg/dL (83-110); Potassium 3.6 mmol/L (3.5-5.1); Sodium 136 mmol/L (136-145)
[2020-06-10] MEDS: Cholecalciferol (Vitamin D3) 400 UNITS TAB PO SCH (08:53)
[2020-06-10] MEDS: Multivitamin W/ Minerals 1 TAB PO SCH (08:53)
[2020-06-10] MEDS: HYDROcodone/Acetaminophen 5/325 mg Tablet PO PRN ×2 (08:53→21:20)
[2020-06-10] MEDS: Gabapentin 100 MG CAP PO SCH ×2 (08:53→21:13)
[2020-06-10] MEDS: Tamsulosin HCl 0.4 MG CAP PO SCH (08:53)
[2020-06-10] MEDS: Aspirin 81 mg Enteric Coated Tablet PO SCH ×2 (08:54→21:13)
[2020-06-10] MEDS: Senokot S 8.6-50 MG TAB PO SCH ×2 (08:54→21:13)
[2020-06-10] MEDS: Doxycycline 100 MG CAP PO SCH ×2 (08:54→21:13)
[2020-06-10] MEDS: Ferrous Gluconate 324 MG TAB PO SCH ×2 (08:54→21:13)
[2020-06-10] MEDS: Enoxaparin Sodium 40 MG/0.4 ML SYRINGE SC SCH (08:54)
[2020-06-10] MEDS ORDERED: Potassium Chloride 20 MEQ TAB PO SCH (09:00)
[2020-06-10] MEDS ORDERED: Metolazone 5 MG TAB PO SCH (09:00)
--- NOTE | 2020-06-10 09:18 | PRG ---
DATE OF SERVICE: 06/10/2020 SUBJECTIVE: Mr. Mart is awake and alert. He seems to be breathing somewhat better. His edema is improved to some degree. OBJECTIVE: VITAL SIGNS: His blood pressure 149/79, pulse 85 and regular. LUNGS: Some expiratory wheezing. CARDIAC: Normal S1 and S2. ABDOMEN: Soft, nontender. EXTREMITIES: Still moderate to severe edema, but it is improved. Scrotal edema is improved to some degree. The creatinine is stable, slightly high at 1.96. ASSESSMENT: 1. Severe diastolic heart failure. 2. 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 3. Chronic obstructive pulmonary disease. 4. Postoperative status. 5. Renal failure stage 3. PLAN: 1. Continue intravenous infusion of furosemide. 2. Give him another dose of metolazone. If the creatinine goes up tomorrow, we probably cannot give metolazone tomorrow. The patient is gradually improving in terms of the edema. The I and O do not seem to be very reliable, but at least on the record, it was -2 L yesterday. The weights do not seem reliable at all, but the edema does seem to be slowly improving. Dr. Iglesias be available this weekend if needed. Job ID: [id number]
--- NOTE | 2020-06-10 10:59 | PRG ---
DATE OF SERVICE: 06/10/2020 SUBJECTIVE: The patient is an 79-year-old male status post revision of left total hip arthroplasty, postoperative day #6. This is demonstrated Morganella morganii, gram-negative rods. Yesterday, he improved with physical therapy, walking approximately 30 feet. Today, it appears that he is still getting diuresed and his swelling is starting to improve. He still complains of scrotal swelling, which is limiting his ability to ambulate. OBJECTIVE: VITAL SIGNS: Stable. SKIN: SAGE VAC in place and good suction. Some wrinkles are visible on the extremities at this time. His swelling is decreased. NEURO: Distal neurovascular status intact. IMPRESSION: The patient continuing to improve. Improved mobility since yesterday. Some decrease in swelling on extremities. Continue plan of care. Job ID: [id number]
--- NOTE | 2020-06-10 14:05 | PDOC.HOSPP ---
- Subjective Encounter Date: 06/10/20 Encounter Time: 10:30 Subjective: The patient feels better today. Shortness of breath has improved. He states he was able to ambulate this morning with physical therapy. He feels his swelling has gone down. Scrotum and hip are less painful Patient states he is urinating adequately and feels that he has lost weight since he can walk better. - Objective Vital Signs & Weight: Vital Signs (12 hours) Temp Pulse Resp BP Pulse Ox 06/10/20 11:55 97.9 F 85 20 131/70 92 L 06/10/20 10:33 88 18 98 06/10/20 09:00 97 06/10/20 08:00 97.5 F L 85 20 149/79 H 97 06/10/20 07:03 100 06/10/20 07:01 76 16 100 06/10/20 03:57 97.3 F L 78 16 148/73 H 100 Weight Admit Weight 195 lb Weight 217 lb I&O: 06/09/20 06/10/20 06/11/20 06:59 06:59 06:59 Intake Total 1810 360 Output Total 1875 2400 Balance -65 -2040 Result Diagrams: 06/10/20 05:00 06/10/20 05:00 Hospitalist ROS - Review of Systems Constitutional: denies: fever, chills - Medication Medications: Active Medications Generic Name Dose Route Start Last Admin Trade Name Freq PRN Reason Stop Dose Admin Acetaminophen 650 mg 06/03/20 16:52 06/07/20 17:51 Tylenol PO 650 mg Q4H PRN Administration Headache/Fever or Pain Hydrocodone Bitart/Acetaminophen 2 tab 06/02/20 10:54 06/10/20 08:53 [place] 5/325 PO 2 tab Q4H PRN Administration Severe Pain (7-10) Albuterol Sulfate 1.25 mg 06/03/20 18:30 06/10/20 10:33 Albuterol Sulfate NEB 1.25 mg [id number] SHORTY Administration Albuterol Sulfate 2.5 mg 06/03/20 18:12 06/06/20 14:10 Ventolin NEB 2.5 mg Q6H PRN Administration Dyspnea/Wheezing/SOB Aspirin 81 mg 06/03/20 21:00 06/10/20 08:54 Ecotrin PO 81 mg BID SHORTY Administration Atorvastatin Calcium 20 mg 06/02/20 21:00 06/09/20 20:44 Lipitor PO 20 mg HS SHORTY Administration Cholecalciferol 800 units 06/07/20 09:00 06/10/20 08:53 Vitamin D PO 800 units DAILY SHORTY Administration Doxycycline Hyclate 100 mg 06/02/20 21:00 06/10/20 08:54 Vibramycin PO 100 mg BID SHORTY Administration Enoxaparin Sodium 40 mg 06/09/20 09:00 06/10/20 08:54 Lovenox SC 40 mg 0900 SHORTY Administration Fentanyl 50 mcg 06/02/20 10:54 06/02/20 14:34 Sublimaze SLOW IVP 50 mcg Q30M PRN Administration Severe breakthrough pain Ferrous Gluconate 324 mg 06/03/20 21:00 06/10/20 08:54 Fergon PO 324 mg BID SHORTY Administration Gabapentin 100 mg 06/02/20 21:00 06/10/20 08:53 Neurontin PO 100 mg BID SHORTY Administration Meropenem 1 gm/ Device 50 mls @ 100 mls/hr 06/07/20 00:00 06/10/20 12:06 IVPB 50 mls 0000,1200 SHORTY Administration Vancomycin HCl 500 mg/ Sodium 100 mls @ 100 mls/hr 06/08/20 16:00 06/08/20 16 :21 Chloride IVPB 100 mls Q2D@1600 SHORTY Administration Furosemide 100 mg/ 110 mls @ 5 mls/hr 06/09/20 16:30 06/09/20 18:45 Miscellaneous Medication 1 IVPB 110 mls each/ Sodium Chloride INF [facility] Administration Iron/Minerals/Multivitamins 1 tab 06/04/20 09:00 06/10/20 08:53 Theragran M PO 1 tab DAILY SHORTY Administration Morphine Sulfate 4 mg 06/02/20 10:54 06/03/20 11:58 Morphine SLOW IVP 4 mg Q2H PRN Administration Severe Pain (7-10) Pantoprazole Sodium 40 mg 06/02/20 21:00 06/10/20 08:53 Protonix PO 40 mg BID SHORTY Administration Senna/Docusate Sodium 2 tab 06/03/20 21:00 06/10/20 08:54 Senokot S PO Not Given BID [facility] Sodium Chloride 10 ml 06/03/20 16:52 06/08/20 15:10 Flush - Normal Saline IVF 10 ml PRN PRN Administration Saline Flush Tamsulosin HCl 0.4 mg 06/03/20 09:00 06/10/20 08:53 Flomax PO 0.4 mg DAILY SHORTY Administration - Exam General Appearance: NAD, awake alert General - other findings: on 2L of oxygen Eye: PERRL, anicteric sclera ENT: normocephalic atraumatic, no oropharyngeal lesions Neck: no JVD Heart: RRR, no murmur, no gallops, no rubs Gastrointestinal: soft, non-tender, non-distended, normal bowel sounds Gastrointestinal - other findings: scrotal swelling has improved some, gone down about 30 Extremities: no cyanosis, 2+ LE edema Skin: normal turgor, no rashes Hosp A/P - Plan Chest X ray: widespread interstitial reticulonodular prominence Testicular ultrasound: Small right-sided hydrocele. Bilateral epididymal cysts with mild heterogeneity of the epididymis. Severe scrotal wall thickening. CT abdomen: prominent edema and fluid infiltration throughout the scrotum without soft tissue gas or evidence of abscess. 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 On vanc and meropenem. WBC is normal. Continue antibiotics through the end of June per Dr. Beaver Acute diastolic heart failure secondary to pulmonary edema - ECHO 06/03 showed severely elevated pulm artery pressure . Chest X ray shows widespread interstitial reticulonodular prominence -Was on IV Lasix twice daily and metolazone per cardiology. Transitioned to lasix drip 06/09. Continue current lasix drip. Cardiology will add another dose of metolazone today Scrotal swelling/edema - from fluid overload - testicular ultrasound showed possible cellulitis. CT abdomen showed edema, no air or gas. Urology consulted, thought no signs of Eladia's and from fluid - continue lasix drip NNEKA - likely cardiorenal - creatinine has gone up to 1.96. On lasix drip, per cardiology give metolazone and recheck creatinine tomorrow #Anemia - possibly blood loss related from surgery. He received blood transfusion on . Globin 8.3 Hypocalcemia - possibly from vitamin D deficiency - resolved, - started on vitamin D supplementation given slightly low levels of 23 Physical deconditioning - continue PT and OT DVT prophylaxis: lovenox GI prophylaxis: not needed Disposition: will need rehab on discharge
--- NOTE | 2020-06-10 16:00 | PRG ---
DATE OF SERVICE: SUBJECTIVE: The patient still with quite a bit of third spacing with swelling of lower extremities and scrotal tissue, some improvement but still symptomatic. De catheter has been inserted. He gets dyspneic when he moves about a little bit more than the resting situation. No chest pain. No abdominal pain. Had a soft bowel movement yesterday. OBJECTIVE: VITAL SIGNS: Continues to be afebrile. BP 130/70, pulse 85, respirations 18 to 20, O2 saturation 92% to 98% on 3 L nasal cannula. LUNGS: With faint wheezing in the left base. HEART: S1 and S2. Somewhat irregular rate. No murmurs. ABDOMEN: Soft. Moderate scrotal edema and penile edema. EXTREMITIES: 3+ edema in lower extremities. De catheter. PICC line. LABORATORY DATA: White cell count is down to 10.5, hemoglobin 8.1, platelets 231, and 78% neutrophils. Creatinine 1.96, sodium 136. No new microbiology information available at this time. 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 Job ID: [id number]
[2020-06-10] MEDS: Vancomycin HCl 500 MG in Sodium Chloride 0.9% 100 ML IVPB SCH (16:55)
[2020-06-10 21:04] LABS: Anion Gap 14 mmol/L (10-20); BUN (Urea Nitrogen) 43 mg/dL (8.4-25.7); Calc. Creatinine Clearance 41 mL/min (70-130); Calcium 7.8 mg/dL (7.8-10.44); Carbon Dioxide 27 mmol/L (23-31); Chloride 98 mmol/L (98-107); Estimated GFR-MDRD 32; Glucose 113 mg/dL (83-110); Magnesium 1.9 mg/dL (1.6-2.6); Potassium 4.1 mmol/L (3.5-5.1); Sodium 135 mmol/L (136-145)
[2020-06-10] MEDS: Atorvastatin Calcium 20 MG TAB PO SCH (21:13)
[2020-06-10] MEDS ORDERED: Magnesium Oxide 400 MG TAB PO SCH (22:45)
[2020-06-10] MEDS: Furosemide 100 MG, Admixture Fee 1 EACH in Sodium Chloride 0.9% 90 ML IVPB SCH (23:30)
[2020-06-11] MEDS: Albuterol Sulfate 1.25 MG/3 ML NEB NEB SCH ×6 (03:02→23:08)
[2020-06-11 06:45] LABS: Anion Gap 12 mmol/L (10-20); BUN (Urea Nitrogen) 50 mg/dL (8.4-25.7); Calc. Creatinine Clearance 40 mL/min (70-130); Calcium 7.5 mg/dL (7.8-10.44); Carbon Dioxide 26 mmol/L (23-31); Chloride 100 mmol/L (98-107); Estimated GFR-MDRD 31; Glucose 82 mg/dL (83-110); Potassium 3.9 mmol/L (3.5-5.1); Sodium 134 mmol/L (136-145)
[2020-06-11 06:56] LABS: Mean Corpuscular HGB CONC 29.6 g/dL (32.0-36.0); Mean Corpuscular Hemoglobin 25.6 pg (27.0-31.0); Mean Corpuscular Volume 86.5 fL (78.0-98.0); Mean Platelet Volume 9.1 fL (7.4-10.4); Platelet Count 262 thou/uL (130-400); RBC Distribution Width 17.7 % (11.5-14.5); Red Blood Cell (RBC) Count 3.11 mill/uL (4.70-6.10); White Blood Cell (WBC) Count 11.1 thou/uL (4.8-10.8)
[2020-06-11] MEDS: Aspirin 81 mg Enteric Coated Tablet PO SCH ×2 (07:58→20:42)
[2020-06-11] MEDS: Multivitamin W/ Minerals 1 TAB PO SCH (07:58)
[2020-06-11] MEDS: Doxycycline 100 MG CAP PO SCH ×2 (07:59→20:42)
[2020-06-11] MEDS: Magnesium Oxide 400 MG TAB PO SCH (07:59)
[2020-06-11] MEDS: Cholecalciferol (Vitamin D3) 400 UNITS TAB PO SCH (07:59)
[2020-06-11] MEDS: Enoxaparin Sodium 40 MG/0.4 ML SYRINGE SC SCH (07:59)
[2020-06-11] MEDS: Tamsulosin HCl 0.4 MG CAP PO SCH (07:59)
[2020-06-11] MEDS: Ferrous Gluconate 324 MG TAB PO SCH ×2 (07:59→20:43)
[2020-06-11] MEDS: Gabapentin 100 MG CAP PO SCH ×2 (07:59→20:43)
[2020-06-11] MEDS: Senokot S 8.6-50 MG TAB PO SCH ×3 (07:59→20:55)
[2020-06-11] MEDS: MEROPENEM 1 GM/50 ML 1 GM in Premix Bag 1 BAG IVPB SCH ×2 (11:00→23:34)
--- NOTE | 2020-06-11 13:52 | PDOC.HOSPP ---
- Subjective Encounter Date: 06/11/20 Subjective: The patient was seen and examined. He was able to ambulate with help today. He still complaining of significant swelling in his penile and scrotal area in addition to lower extremities. - Objective Vital Signs & Weight: Vital Signs (12 hours) Temp Pulse Resp BP BP Pulse Ox 06/11/20 13:09 93 L 06/11/20 11:20 97.9 F 88 20 119/66 95 06/11/20 10:17 106 H 18 100 06/11/20 07:18 98.3 F 87 18 127/74 97 06/11/20 06:31 85 18 99 06/11/20 03:52 97.5 F L 79 18 118/59 L 97 06/11/20 03:02 99 Weight Admit Weight 195 lb Weight 223 lb 7 oz I&O: 06/10/20 06/11/20 06/12/20 06:59 06:59 06:59 Intake Total 360 2430.4 Output Total 2400 3625 Balance -2040 -1194.6 Result Diagrams: 06/11/20 05:58 06/11/20 05:58 Hospitalist ROS - Medication Medications: Active Medications Generic Name Dose Route Start Last Admin Trade Name Freq PRN Reason Stop Dose Admin Acetaminophen 650 mg 06/03/20 16:52 06/07/20 17:51 Tylenol PO 650 mg Q4H PRN Administration Headache/Fever or Pain Hydrocodone Bitart/Acetaminophen 2 tab 06/02/20 10:54 06/10/20 21:20 [place] 5/325 PO 2 tab Q4H PRN Administration Severe Pain (7-10) Albuterol Sulfate 1.25 mg 06/03/20 18:30 06/11/20 10:17 Albuterol Sulfate NEB 1.25 mg [id number] SHORTY Administration Albuterol Sulfate 2.5 mg 06/03/20 18:12 06/06/20 14:10 Ventolin NEB 2.5 mg Q6H PRN Administration Dyspnea/Wheezing/SOB Aspirin 81 mg 06/03/20 21:00 06/11/20 07:58 Ecotrin PO 81 mg BID SHORTY Administration Atorvastatin Calcium 20 mg 06/02/20 21:00 06/10/20 21:13 Lipitor PO 20 mg HS SHORTY Administration Cholecalciferol 800 units 06/07/20 09:00 06/11/20 07:59 Vitamin D PO 800 units DAILY SHORTY Administration Doxycycline Hyclate 100 mg 06/02/20 21:00 06/11/20 07:59 Vibramycin PO 100 mg BID SHORTY Administration Enoxaparin Sodium 40 mg 06/09/20 09:00 06/11/20 07:59 Lovenox SC 40 mg 0900 SHORTY Administration Fentanyl 50 mcg 06/02/20 10:54 06/02/20 14:34 Sublimaze SLOW IVP 50 mcg Q30M PRN Administration Severe breakthrough pain Ferrous Gluconate 324 mg 06/03/20 21:00 06/11/20 07:59 Fergon PO 324 mg BID SHORTY Administration Gabapentin 100 mg 06/02/20 21:00 06/11/20 07:59 Neurontin PO 100 mg BID SHORTY Administration Meropenem 1 gm/ Device 50 mls @ 100 mls/hr 06/07/20 00:00 06/11/20 11:00 IVPB 50 mls 0000,1200 SHORTY Administration Vancomycin HCl 500 mg/ Sodium 100 mls @ 100 mls/hr 06/08/20 16:00 06/10/20 16 :55 Chloride IVPB 100 mls Q2D@1600 SHORTY Administration Furosemide 100 mg/ 100 mls @ 2.273 mls/hr 06/10/20 22:27 06/10/20 23:30 Miscellaneous Medication 1 IVPB 100 mls each/ Sodium Chloride INF SHORTY Administration Iron/Minerals/Multivitamins 1 tab 06/04/20 09:00 06/11/20 07:58 Theragran M PO 1 tab DAILY SHORTY Administration Magnesium Oxide 400 mg 06/11/20 09:00 06/11/20 07:59 Magnesium Oxide PO 400 mg DAILY SHORTY Administration Morphine Sulfate 4 mg 06/02/20 10:54 06/03/20 11:58 Morphine SLOW IVP 4 mg Q2H PRN Administration Severe Pain (7-10) Pantoprazole Sodium 40 mg 06/02/20 21:00 06/11/20 07:59 Protonix PO 40 mg BID SHORTY Administration Senna/Docusate Sodium 2 tab 06/03/20 21:00 06/11/20 07:59 Senokot S PO 2 tab BID SHORTY Administration Sodium Chloride 10 ml 06/03/20 16:52 06/08/20 15:10 Flush - Normal Saline IVF 10 ml PRN PRN Administration Saline Flush Tamsulosin HCl 0.4 mg 06/03/20 09:00 06/11/20 07:59 Flomax PO 0.4 mg DAILY SHORTY Administration - Exam General Appearance: awake alert Neck: supple Respiratory: normal chest expansion, no tachypnea Gastrointestinal: soft, non-tender, non-distended, normal bowel sounds Neurological: cranial nerve grossly intact, no focal deficits Hosp A/P (1) Acute on chronic diastolic (congestive) heart failure Code(s): I50.33 - ACUTE ON CHRONIC DIASTOLIC (CONGESTIVE) HEART FAILURE Status : Acute (2) Atrial fibrillation Code(s): I48.91 - UNSPECIFIED ATRIAL FIBRILLATION Status: Chronic Qualifiers: (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 Code(s): T84.59XA - INFECT/INFLM REACTION DUE TO OTH INTERNAL JOINT PROSTH, INIT ; Z96.649 - PRESENCE OF UNSPECIFIED ARTIFICIAL HIP JOINT Status: Acute (4) BPH (benign prostatic hyperplasia) Code(s): N40.0 - BENIGN PROSTATIC HYPERPLASIA WITHOUT LOWER URINRY TRACT SYMP Status: Chronic Qualifiers: (5) CKD (chronic kidney disease) stage 3, GFR 30-59 ml/min Code(s): N18.3 - CHRONIC KIDNEY DISEASE, STAGE 3 (MODERATE) Status: Chronic (6) HTN (hypertension) Code(s): I10 - ESSENTIAL (PRIMARY) HYPERTENSION Status: Chronic Qualifiers: - Plan 06/10: This is an 79 year old male with past medical history of multiple hip surgeries presenting with left thigh and hip pain Left thigh and hip pain 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 On vanc and meropenem. WBC is normal. Continue antibiotics through the end of June per Dr. Beaver Acute diastolic heart failure secondary to pulmonary edema - ECHO 06/03 showed severely elevated pulm artery pressure . Chest X ray shows widespread interstitial reticulonodular prominence -Was on IV Lasix twice daily and metolazone per cardiology. Transitioned to lasix drip 06/09. Continue current lasix drip. Cardiology will add another dose of metolazone today Scrotal swelling/edema - from fluid overload - testicular ultrasound showed possible cellulitis. CT abdomen showed edema, no air or gas. Urology consulted, thought no signs of Eladia's and from fluid - continue lasix drip NNEKA - likely cardiorenal - creatinine has gone up to 1.96. On lasix drip, per cardiology give metolazone and recheck creatinine tomorrow #Anemia - possibly blood loss related from surgery. He received blood transfusion on . [place] 8.3 Hypocalcemia - possibly from vitamin D deficiency - resolved, - started on vitamin D supplementation given slightly low levels of 23 Physical deconditioning - continue PT and OT 06/11: The patient is still significantly edematous. He is tolerating Lasix drip without worsening creatinine level. I will continue that since we are achieving a negative fluid balance of about 1 L/day.
[2020-06-11] MEDS: Atorvastatin Calcium 20 MG TAB PO SCH (20:42)
[2020-06-11] MEDS: HYDROcodone/Acetaminophen 5/325 mg Tablet PO PRN (20:48)
[2020-06-12] MEDS: Albuterol Sulfate 1.25 MG/3 ML NEB NEB SCH ×6 (03:10→22:42)
[2020-06-12 05:48] LABS: Hemoglobin 7.7 g/dL (14.0-18.0); Mean Corpuscular HGB CONC 29.9 g/dL (32.0-36.0); Mean Corpuscular Hemoglobin 25.7 pg (27.0-31.0); Mean Corpuscular Volume 85.9 fL (78.0-98.0); Mean Platelet Volume 8.8 fL (7.4-10.4); Platelet Count 292 thou/uL (130-400); RBC Distribution Width 17.7 % (11.5-14.5); Red Blood Cell (RBC) Count 2.99 mill/uL (4.70-6.10); White Blood Cell (WBC) Count 13.5 thou/uL (4.8-10.8)
[2020-06-12 06:02] LABS: Anion Gap 10 mmol/L (10-20); BUN (Urea Nitrogen) 61 mg/dL (8.4-25.7); Calc. Creatinine Clearance 40 mL/min (70-130); Calcium 7.7 mg/dL (7.8-10.44); Carbon Dioxide 29 mmol/L (23-31); Chloride 100 mmol/L (98-107); Estimated GFR-MDRD 30; Glucose 100 mg/dL (83-110); Potassium 3.6 mmol/L (3.5-5.1); Sodium 135 mmol/L (136-145)
[2020-06-12] MEDS: Cholecalciferol (Vitamin D3) 400 UNITS TAB PO SCH (08:06)
[2020-06-12] MEDS: Aspirin 81 mg Enteric Coated Tablet PO SCH ×2 (08:06→20:07)
[2020-06-12] MEDS: Multivitamin W/ Minerals 1 TAB PO SCH (08:07)
[2020-06-12] MEDS: Tamsulosin HCl 0.4 MG CAP PO SCH (08:07)
[2020-06-12] MEDS: Doxycycline 100 MG CAP PO SCH ×2 (08:07→20:07)
[2020-06-12] MEDS: Magnesium Oxide 400 MG TAB PO SCH (08:07)
[2020-06-12] MEDS: Gabapentin 100 MG CAP PO SCH ×2 (08:07→20:07)
[2020-06-12] MEDS: Ferrous Gluconate 324 MG TAB PO SCH ×2 (08:07→20:07)
[2020-06-12] MEDS: Senokot S 8.6-50 MG TAB PO SCH (08:08)
[2020-06-12] MEDS: Enoxaparin Sodium 40 MG/0.4 ML SYRINGE SC SCH (08:08)
[2020-06-12] MEDS: MEROPENEM 1 GM/50 ML 1 GM in Premix Bag 1 BAG IVPB SCH (11:28)
--- NOTE | 2020-06-12 12:21 | PDOC.HOSPP ---
- Subjective Encounter Date: 06/12/20 Subjective: The patient still complaining of lower extremity and scrotal swelling. - Objective Vital Signs & Weight: Vital Signs (12 hours) Temp Pulse Resp BP BP Pulse Ox 06/12/20 11:20 87 20 97 06/12/20 10:55 98.5 F 91 20 131/65 100 06/12/20 08:00 99 06/12/20 07:30 98.1 F 87 18 121/69 99 06/12/20 06:26 89 18 99 06/12/20 03:10 98 Weight Admit Weight 195 lb Weight 222 lb 6.4 oz I&O: 06/11/20 06/12/20 06/13/20 06:59 06:59 06:59 Intake Total 2430.4 2155 Output Total 3625 1450 Balance -1194.6 705 Result Diagrams: 06/12/20 05:15 06/12/20 05:15 Hospitalist ROS - Medication Medications: Active Medications Generic Name Dose Route Start Last Admin Trade Name Freq PRN Reason Stop Dose Admin Acetaminophen 650 mg 06/03/20 16:52 06/07/20 17:51 Tylenol PO 650 mg Q4H PRN Administration Headache/Fever or Pain Hydrocodone Bitart/Acetaminophen 2 tab 06/02/20 10:54 06/11/20 20:48 [place] 5/325 PO 2 tab Q4H PRN Administration Severe Pain (7-10) Albuterol Sulfate 1.25 mg 06/03/20 18:30 06/12/20 11:20 Albuterol Sulfate NEB 1.25 mg [id number] SHORTY Administration Albuterol Sulfate 2.5 mg 06/03/20 18:12 06/06/20 14:10 Ventolin NEB 2.5 mg Q6H PRN Administration Dyspnea/Wheezing/SOB Aspirin 81 mg 06/03/20 21:00 06/12/20 08:06 Ecotrin PO 81 mg BID SHORTY Administration Atorvastatin Calcium 20 mg 06/02/20 21:00 06/11/20 20:42 Lipitor PO 20 mg HS SHORTY Administration Cholecalciferol 800 units 06/07/20 09:00 06/12/20 08:06 Vitamin D PO 800 units DAILY SHORTY Administration Doxycycline Hyclate 100 mg 06/02/20 21:00 06/12/20 08:07 Vibramycin PO 100 mg BID SHORTY Administration Enoxaparin Sodium 40 mg 06/09/20 09:00 06/12/20 08:08 Lovenox SC 40 mg 0900 SHORTY Administration Fentanyl 50 mcg 06/02/20 10:54 06/02/20 14:34 Sublimaze SLOW IVP 50 mcg Q30M PRN Administration Severe breakthrough pain Ferrous Gluconate 324 mg 06/03/20 21:00 06/12/20 08:07 Fergon PO 324 mg BID SHORTY Administration Gabapentin 100 mg 06/02/20 21:00 06/12/20 08:07 Neurontin PO 100 mg BID SHORTY Administration Vancomycin HCl 500 mg/ Sodium 100 mls @ 100 mls/hr 06/08/20 16:00 06/10/20 16 :55 Chloride IVPB 100 mls Q2D@1600 SHORTY Administration Furosemide 100 mg/ 100 mls @ 2.273 mls/hr 06/10/20 22:27 06/10/20 23:30 Miscellaneous Medication 1 IVPB 100 mls each/ Sodium Chloride INF SHORTY Administration Meropenem 1 gm/ Device 50 mls @ 100 mls/hr 06/12/20 12:00 06/12/20 11:28 IVPB 50 mls 0000,1200 SHORTY Administration Iron/Minerals/Multivitamins 1 tab 06/04/20 09:00 06/12/20 08:07 Theragran M PO 1 tab DAILY SHORTY Administration Magnesium Oxide 400 mg 06/11/20 09:00 06/12/20 08:07 Magnesium Oxide PO 400 mg DAILY SHORTY Administration Morphine Sulfate 4 mg 06/02/20 10:54 06/03/20 11:58 Morphine SLOW IVP 4 mg Q2H PRN Administration Severe Pain (7-10) Pantoprazole Sodium 40 mg 06/02/20 21:00 06/12/20 08:07 Protonix PO 40 mg BID [facility] Administration Senna/Docusate Sodium 2 tab 06/03/20 21:00 06/12/20 08:08 Senokot S PO Not Given BID [facility] Sodium Chloride 10 ml 06/03/20 16:52 06/08/20 15:10 Flush - Normal Saline IVF 10 ml PRN PRN Administration Saline Flush Tamsulosin HCl 0.4 mg 06/03/20 09:00 06/12/20 08:07 Flomax PO 0.4 mg DAILY SHORTY Administration - Exam General Appearance: awake alert ENT: normocephalic atraumatic Neck: supple, no JVD Respiratory: normal chest expansion, no tachypnea Neurological: cranial nerve grossly intact, no focal deficits Hosp A/P (1) Acute on chronic diastolic (congestive) heart failure Code(s): I50.33 - ACUTE ON CHRONIC DIASTOLIC (CONGESTIVE) HEART FAILURE Status : Acute (2) Atrial fibrillation Code(s): I48.91 - UNSPECIFIED ATRIAL FIBRILLATION Status: Chronic Qualifiers: (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 Code(s): T84.59XA - INFECT/INFLM REACTION DUE TO OTH INTERNAL JOINT PROSTH, INIT ; Z96.649 - PRESENCE OF UNSPECIFIED ARTIFICIAL HIP JOINT Status: Acute (4) BPH (benign prostatic hyperplasia) Code(s): N40.0 - BENIGN PROSTATIC HYPERPLASIA WITHOUT LOWER URINRY TRACT SYMP Status: Chronic Qualifiers: (5) CKD (chronic kidney disease) stage 3, GFR 30-59 ml/min Code(s): N18.3 - CHRONIC KIDNEY DISEASE, STAGE 3 (MODERATE) Status: Chronic (6) HTN (hypertension) Code(s): I10 - ESSENTIAL (PRIMARY) HYPERTENSION Status: Chronic Qualifiers: - Plan 06/10: This is an 79 year old male with past medical history of multiple hip surgeries presenting with left thigh and hip pain Left thigh and hip pain 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 On vanc and meropenem. WBC is normal. Continue antibiotics through the end of June per Dr. Beaver Acute diastolic heart failure secondary to pulmonary edema - ECHO 06/03 showed severely elevated pulm artery pressure . Chest X ray shows widespread interstitial reticulonodular prominence -Was on IV Lasix twice daily and metolazone per cardiology. Transitioned to lasix drip 06/09. Continue current lasix drip. Cardiology will add another dose of metolazone today Scrotal swelling/edema - from fluid overload - testicular ultrasound showed possible cellulitis. CT abdomen showed edema, no air or gas. Urology consulted, thought no signs of Eladia's and from fluid - continue lasix drip NNEKA - likely cardiorenal - creatinine has gone up to 1.96. On lasix drip, per cardiology give metolazone and recheck creatinine tomorrow #Anemia - possibly blood loss related from surgery. He received blood transfusion on . Glob[place] 8.3 Hypocalcemia - possibly from vitamin D deficiency - resolved, - started on vitamin D supplementation given slightly low levels of 23 Physical deconditioning - continue PT and OT 06/11: The patient is still significantly edematous. He is tolerating Lasix drip without worsening creatinine level. I will continue that since we are achieving a negative fluid balance of about 1 L/day. 06/12: Lower extremity edema is now showing much improvement despite diuresis. His urine output is adequate with Lasix, however, his oral intake is also significant. We will limit his intake of fluids to 1400 cc.
[2020-06-12 15:31] LABS: Vancomycin, Trough 12.8 ug/mL
[2020-06-12] MEDS: Vancomycin HCl 750 MG in Sodium Chloride 0.9% 250 ML 250 ML IVPB SCH (16:38)
[2020-06-12] MEDS ORDERED: HYDROcodone/Acetaminophen 5/325 mg Tablet PO SCH (18:00)
[2020-06-12] MEDS: Atorvastatin Calcium 20 MG TAB PO SCH (20:07)
[2020-06-12] MEDS: HYDROcodone/Acetaminophen 5/325 mg Tablet PO SCH (20:15)
[2020-06-13] MEDS: Senokot S 8.6-50 MG TAB PO SCH ×3 (00:38→21:45)
[2020-06-13] MEDS: Furosemide 100 MG, Admixture Fee 1 EACH in Sodium Chloride 0.9% 90 ML IVPB SCH ×2 (00:42→23:34)
[2020-06-13] MEDS: MEROPENEM 1 GM/50 ML 1 GM in Premix Bag 1 BAG IVPB SCH ×3 (00:43→23:34)
[2020-06-13] MEDS: Albuterol Sulfate 1.25 MG/3 ML NEB NEB SCH ×6 (03:09→22:23)
[2020-06-13] MEDS: HYDROcodone/Acetaminophen 5/325 mg Tablet PO SCH ×4 (04:02→20:04)
[2020-06-13 05:44] LABS: Hemoglobin 7.5 g/dL (14.0-18.0); Mean Corpuscular HGB CONC 29.4 g/dL (32.0-36.0); Mean Corpuscular Hemoglobin 25.4 pg (27.0-31.0); Mean Corpuscular Volume 86.3 fL (78.0-98.0); Mean Platelet Volume 8.8 fL (7.4-10.4); Platelet Count 323 thou/uL (130-400); RBC Distribution Width 17.7 % (11.5-14.5); Red Blood Cell (RBC) Count 2.94 mill/uL (4.70-6.10); White Blood Cell (WBC) Count 14.1 thou/uL (4.8-10.8)
[2020-06-13 05:54] LABS: Anion Gap 12 mmol/L (10-20); BUN (Urea Nitrogen) 64 mg/dL (8.4-25.7); Calc. Creatinine Clearance 40 mL/min (70-130); Calcium 7.5 mg/dL (7.8-10.44); Carbon Dioxide 29 mmol/L (23-31); Chloride 100 mmol/L (98-107); Estimated GFR-MDRD 31; Glucose 96 mg/dL (83-110); Potassium 3.5 mmol/L (3.5-5.1); Sodium 137 mmol/L (136-145)
[2020-06-13] MEDS: Cholecalciferol (Vitamin D3) 400 UNITS TAB PO SCH (07:53)
[2020-06-13] MEDS: Aspirin 81 mg Enteric Coated Tablet PO SCH ×2 (07:53→20:03)
[2020-06-13] MEDS: Magnesium Oxide 400 MG TAB PO SCH (07:53)
[2020-06-13] MEDS: Enoxaparin Sodium 40 MG/0.4 ML SYRINGE SC SCH (07:54)
[2020-06-13] MEDS: Doxycycline 100 MG CAP PO SCH ×2 (07:54→20:03)
[2020-06-13] MEDS: Multivitamin W/ Minerals 1 TAB PO SCH (07:54)
[2020-06-13] MEDS: Ferrous Gluconate 324 MG TAB PO SCH ×2 (07:54→20:04)
[2020-06-13] MEDS: Tamsulosin HCl 0.4 MG CAP PO SCH (07:54)
[2020-06-13] MEDS: Gabapentin 100 MG CAP PO SCH ×2 (07:54→20:04)
[2020-06-13] MEDS ORDERED: Metolazone 5 MG TAB PO SCH (08:45)
[2020-06-13] MEDS ORDERED: Potassium Chloride 20 MEQ TAB PO SCH (08:45)
--- NOTE | 2020-06-13 10:34 | PRG ---
DATE OF SERVICE: 06/13/2020 SUBJECTIVE: Mr. Mart sitting up in the chair. Still has a left testicular swelling. His breathing is okay. OBJECTIVE: VITAL SIGNS: His blood pressure is 122/57, pulse 90. LUNGS: Clear. CARDIAC: Normal S1. Normal S2. ABDOMEN: Soft and nontender. EXTREMITIES: There is [id number] edema, more on the right than the left. GENITALIA: The testicles are still moderate to severely swollen. ASSESSMENT: 1. Congestive heart failure, diastolic, still volume overloaded. 2. Renal failure, stable with a creatinine of 2.09. GFR is estimated at 31. It probably overestimates his GFR as lot of his weight still is edema. 3. 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 4. Anemia, iron deficiency, chronic. PLAN: 1. Additional furosemide has been given intravenously and an extra dose of metolazone today. 2. He is on oral iron. Job ID: [id number]
--- NOTE | 2020-06-13 13:07 | PDOC.HOSPP ---
- Subjective Encounter Date: 06/13/20 Subjective: The patient is lower extremity edema is slightly improving. - Objective Vital Signs & Weight: Vital Signs (12 hours) Temp Pulse Resp BP BP Pulse Ox 06/13/20 11:42 98.1 F 89 16 138/66 90 L 06/13/20 10:31 97 20 94 L 06/13/20 08:02 93 22 H 92 L 06/13/20 08:00 92 L 06/13/20 07:41 97.9 F 83 16 122/57 L 92 L 06/13/20 04:05 97.5 F L 86 18 117/58 L 94 L 06/13/20 03:09 96 Weight Admit Weight 195 lb Weight 219 lb I&O: 06/12/20 06/13/20 06/14/20 06:59 06:59 06:59 Intake Total 2155 1451 424 Output Total 1450 750 750 Balance 705 706 -524 Result Diagrams: 06/13/20 05:02 06/13/20 05:02 Hospitalist ROS - Medication Medications: Active Medications Generic Name Dose Route Start Last Admin Trade Name Freq PRN Reason Stop Dose Admin Acetaminophen 650 mg 06/03/20 16:52 06/07/20 17:51 Tylenol PO 650 mg Q4H PRN Administration Headache/Fever or Pain Hydrocodone Bitart/Acetaminophen 1 tab 06/12/20 21:00 06/13/20 07:51 [place] 5/325 PO 1 tab 0300,0900,1500,2100 SHORTY Administration Albuterol Sulfate 1.25 mg 06/03/20 18:30 06/13/20 10:31 Albuterol Sulfate NEB 1.25 mg [id number] SHORTY Administration Albuterol Sulfate 2.5 mg 06/03/20 18:12 06/06/20 14:10 Ventolin NEB 2.5 mg Q6H PRN Administration Dyspnea/Wheezing/SOB Aspirin 81 mg 06/03/20 21:00 06/13/20 07:53 Ecotrin PO 81 mg BID SHORTY Administration Atorvastatin Calcium 20 mg 06/02/20 21:00 06/12/20 20:07 Lipitor PO 20 mg HS SHORTY Administration Cholecalciferol 800 units 06/07/20 09:00 06/13/20 07:53 Vitamin D PO 800 units DAILY SHORTY Administration Doxycycline Hyclate 100 mg 06/02/20 21:00 06/13/20 07:54 Vibramycin PO 100 mg BID SHORTY Administration Enoxaparin Sodium 40 mg 06/09/20 09:00 06/13/20 07:54 Lovenox SC 40 mg 0900 SHORTY Administration Fentanyl 50 mcg 06/02/20 10:54 06/02/20 14:34 Sublimaze SLOW IVP 50 mcg Q30M PRN Administration Severe breakthrough pain Ferrous Gluconate 324 mg 06/03/20 21:00 06/13/20 07:54 Fergon PO 324 mg BID SHORTY Administration Gabapentin 100 mg 06/02/20 21:00 06/13/20 07:54 Neurontin PO 100 mg BID SHORTY Administration Furosemide 100 mg/ 100 mls @ 2.273 mls/hr 06/10/20 22:27 06/13/20 00:42 Miscellaneous Medication 1 IVPB 100 mls each/ Sodium Chloride INF SHORTY Administration Meropenem 1 gm/ Device 50 mls @ 100 mls/hr 06/12/20 12:00 06/13/20 12:34 IVPB 50 mls 0000,1200 SHORTY Administration Vancomycin HCl 750 mg/ Sodium 250 mls @ 250 mls/hr 06/12/20 16:00 06/12/20 16 :38 Chloride IVPB 250 mls Q2DAYS@1600 [facility] Administration Iron/Minerals/Multivitamins 1 tab 06/04/20 09:00 06/13/20 07:54 Theragran M PO 1 tab DAILY SHORTY Administration Magnesium Oxide 400 mg 06/11/20 09:00 06/13/20 07:53 Magnesium Oxide PO 400 mg DAILY SHORTY Administration Morphine Sulfate 4 mg 06/02/20 10:54 06/03/20 11:58 Morphine SLOW IVP 4 mg Q2H PRN Administration Severe Pain (7-10) Pantoprazole Sodium 40 mg 06/02/20 21:00 06/13/20 07:53 Protonix PO 40 mg BID SHORTY Administration Senna/Docusate Sodium 2 tab 06/03/20 21:00 06/13/20 07:54 Senokot S PO Not Given BID [facility] Sodium Chloride 10 ml 06/03/20 16:52 06/08/20 15:10 Flush - Normal Saline IVF 10 ml PRN PRN Administration Saline Flush Tamsulosin HCl 0.4 mg 06/03/20 09:00 06/13/20 07:54 Flomax PO 0.4 mg DAILY SHORTY Administration - Exam General Appearance: awake alert Neck: supple, no JVD Respiratory: normal chest expansion, no tachypnea Extremities: no cyanosis, no clubbing, 2+ LE edema Extremities - other findings: Scrotal swelling is present. 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 Code(s): T84.59XA - INFECT/INFLM REACTION DUE TO OTH INTERNAL JOINT PROSTH, INIT ; Z96.649 - PRESENCE OF UNSPECIFIED ARTIFICIAL HIP JOINT Status: Acute (4) BPH (benign prostatic hyperplasia) Code(s): N40.0 - BENIGN PROSTATIC HYPERPLASIA WITHOUT LOWER URINRY TRACT SYMP Status: Chronic Qualifiers: (5) CKD (chronic kidney disease) stage 3, GFR 30-59 ml/min Code(s): N18.3 - CHRONIC KIDNEY DISEASE, STAGE 3 (MODERATE) Status: Chronic (6) HTN (hypertension) Code(s): I10 - ESSENTIAL (PRIMARY) HYPERTENSION Status: Chronic Qualifiers: - Plan 06/10: This is an 79 year old male with past medical history of multiple hip surgeries presenting with left thigh and hip pain Left thigh and hip pain 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 On vanc and meropenem. WBC is normal. Continue antibiotics through the end of June per Dr. Beaver Acute diastolic heart failure secondary to pulmonary edema - ECHO 06/03 showed severely elevated pulm artery pressure . Chest X ray shows widespread interstitial reticulonodular prominence -Was on IV Lasix twice daily and metolazone per cardiology. Transitioned to lasix drip 06/09. Continue current lasix drip. Cardiology will add another dose of metolazone today Scrotal swelling/edema - from fluid overload - testicular ultrasound showed possible cellulitis. CT abdomen showed edema, no air or gas. Urology consulted, thought no signs of Eladia's and from fluid - continue lasix drip NNEKA - likely cardiorenal - creatinine has gone up to 1.96. On lasix drip, per cardiology give metolazone and recheck creatinine tomorrow #Anemia - possibly blood loss related from surgery. He received blood transfusion on . [place]ob[place] 8.3 Hypocalcemia - possibly from vitamin D deficiency - resolved, - started on vitamin D supplementation given slightly low levels of 23 Physical deconditioning - continue PT and OT 06/11: The patient is still significantly edematous. He is tolerating Lasix drip without worsening creatinine level. I will continue that since we are achieving a negative fluid balance of about 1 L/day. 06/12: Lower extremity edema is not showing much improvement despite diuresis. His urine output is adequate with Lasix, however, his oral intake is also significant. We will limit his intake of fluids to 1400 cc. 06/13: There is slight improvement in the lower extremity edema. Stricter fluid restriction was implemented yesterday. Additional doses of Lasix were given today in addition to metolazone. Creatinine level appears to be stable. I have consulted nephrology to assist with diuresis given the altered kidney function. Continue IV antibiotics per ID recommendations. Continue PT and OT. I have asked nursing staff to use standing scale for weight measures for better accuracy.
[2020-06-13] MEDS: Atorvastatin Calcium 20 MG TAB PO SCH (20:03)
[2020-06-14] MEDS: Albuterol Sulfate 1.25 MG/3 ML NEB NEB SCH ×6 (02:59→22:33)
[2020-06-14] MEDS: HYDROcodone/Acetaminophen 5/325 mg Tablet PO SCH ×4 (04:47→20:15)
[2020-06-14 05:18] LABS: Hemoglobin 7.1 g/dL (14.0-18.0); Mean Corpuscular HGB CONC 29.6 g/dL (32.0-36.0); Mean Corpuscular Hemoglobin 25.5 pg (27.0-31.0); Mean Corpuscular Volume 86.2 fL (78.0-98.0); Mean Platelet Volume 8.5 fL (7.4-10.4); Platelet Count 360 thou/uL (130-400); RBC Distribution Width 17.8 % (11.5-14.5); Red Blood Cell (RBC) Count 2.77 mill/uL (4.70-6.10); White Blood Cell (WBC) Count 14.4 thou/uL (4.8-10.8)
[2020-06-14 05:43] LABS: Anion Gap 13 mmol/L (10-20); BUN (Urea Nitrogen) 64 mg/dL (8.4-25.7); Calc. Creatinine Clearance 39 mL/min (70-130); Calcium 7.7 mg/dL (7.8-10.44); Carbon Dioxide 26 mmol/L (23-31); Chloride 102 mmol/L (98-107); Estimated GFR-MDRD 31; Glucose 93 mg/dL (83-110); Potassium 3.6 mmol/L (3.5-5.1); Sodium 137 mmol/L (136-145)
[2020-06-14] MEDS: Senokot S 8.6-50 MG TAB PO SCH (08:43)
[2020-06-14] MEDS: Ferrous Gluconate 324 MG TAB PO SCH ×2 (08:43→20:14)
[2020-06-14] MEDS: Cholecalciferol (Vitamin D3) 400 UNITS TAB PO SCH (08:43)
[2020-06-14] MEDS: Magnesium Oxide 400 MG TAB PO SCH (08:44)
[2020-06-14] MEDS: Gabapentin 100 MG CAP PO SCH ×2 (08:44→20:15)
[2020-06-14] MEDS: Aspirin 81 mg Enteric Coated Tablet PO SCH ×2 (08:44→20:14)
[2020-06-14] MEDS: Enoxaparin Sodium 40 MG/0.4 ML SYRINGE SC SCH (08:45)
[2020-06-14] MEDS: Tamsulosin HCl 0.4 MG CAP PO SCH (08:45)
[2020-06-14] MEDS: Doxycycline 100 MG CAP PO SCH ×2 (08:45→20:14)
[2020-06-14] MEDS: Multivitamin W/ Minerals 1 TAB PO SCH (08:45)
[2020-06-14] MEDS ORDERED: Potassium Chloride 20 MEQ TAB PO SCH (09:00)
[2020-06-14] MEDS ORDERED: Metolazone 5 MG TAB PO SCH (09:00)
[2020-06-14] MEDS ORDERED: Albumin 25% 25 GM/100 ML BOT IVPB SCH (10:49)
[2020-06-14] MEDS ORDERED: Furosemide 40 MG/4 ML VIAL SLOW IVP SCH ×2 (11:00→20:00)
[2020-06-14] MEDS: MEROPENEM 1 GM/50 ML 1 GM in Premix Bag 1 BAG IVPB SCH (11:33)
[2020-06-14] MEDS: Vancomycin HCl 750 MG in Sodium Chloride 0.9% 250 ML 250 ML IVPB SCH (15:33)
--- NOTE | 2020-06-14 16:03 | CON ---
DATE OF CONSULTATION: REASON FOR CONSULTATION: Edema and CKD. HISTORY OF PRESENTING ILLNESS: This is a very pleasant 79-year-old gentleman, who has CKD stage 4, was admitted for worsening edema and scrotal swelling. The patient was started on oral Zaroxolyn in addition to Lasix drip, and he is making urine. The patient is being treated for hip prosthesis chronic infection. PAST MEDICAL HISTORY: Chronic kidney disease, atrial fibrillation, COPD, ablation, Watchman procedure, history of congestive heart failure. SOCIAL HISTORY: No alcohol or drug use. FAMILY HISTORY: Negative for ESRD. ALLERGIES: REVIEWED. HOME MEDICATIONS: List reviewed. HOSPITAL MEDICATIONS: REVIEW OF SYSTEMS: A 15-point review of system was performed, negative except for positive noted above. HEENT: Eyes intact, no diplopia. Ears: No hearing loss or earache. Nose: No discharge or bleeding. Chest: No cough or phlegm. Abdomen: No nausea or vomiting. Genitourinary: No hematuria. No De catheter. Musculoskeletal: No low back pain. No joint swelling or pain. Neurological: No syncope. No seizures. Skin: No complaints of rash or itching. Psychiatric: No depression. Constitutional: No weight loss or loss of appetite. PHYSICAL EXAMINATION: General: The patient is awake and alert. Vital Signs: Afebrile, pulse 75, breathing at 16, blood pressure 111/85. HEENT: Head normocephalic and atraumatic. Eyes intact, no ulcers. Nose intact, no ulcers. Ears intact, no ulcers. Neck: Supple. No JVD. Chest: Symmetrical and clear. Cardiovascular: Shows S1 and S2, no rub, no murmur. Gastrointestinal: Abdomen is soft, bowel sounds positive. Extremities: Show no ulcers. The patient has 4+ edema. Skin: Shows no rash or petechiae. Musculoskeletal: Shows no joint swelling or stiffness. Genitourinary: Shows no De or CVA tenderness. Neurologic: Motor intact. Cranial nerves intact. LABORATORY DATA: Showed hemoglobin 7.1, creatinine is 2.1. ASSESSMENT AND PLAN: 1. Chronic kidney disease stage 3/4 with massive edema. We would agree with daily dose of Zaroxolyn and checking potassium again. 2. Hypertension, stable. 3. Anemia. We would recommend 2 units of packed red blood cell transfusion as this should help the patient's anemia as well as edema. 4. The patient should be on daily Zaroxolyn. Medication based on GFR, appropriate. Overall prognosis is poor. Job ID: [id number]
[2020-06-14] MEDS: Atorvastatin Calcium 20 MG TAB PO SCH (20:14)
--- NOTE | 2020-06-14 20:35 | PDOC.HOSPP ---
- Subjective Encounter Date: 06/14/20 Subjective: The patient does not have any new complaints. His urine output is adequate. His edema remains fairly significant. - Objective Vital Signs & Weight: Vital Signs (12 hours) Temp Pulse Resp BP BP Pulse Ox 06/14/20 19:53 98.1 F 93 17 143/67 H 95 06/14/20 18:14 91 20 93 L 06/14/20 15:52 98.3 F 92 16 131/63 94 L 06/14/20 14:00 90 20 100 06/14/20 10:34 79 18 97 Weight Admit Weight 195 lb Weight 219 lb I&O: 06/13/20 06/14/20 06/15/20 06:59 06:59 06:59 Intake Total 1451 1546.3 970 Output Total 750 1700 950 Balance 701 -153.7 20 Result Diagrams: 06/14/20 05:00 06/14/20 05:00 Hospitalist ROS - Medication Medications: Active Medications Generic Name Dose Route Start Last Admin Trade Name Freq PRN Reason Stop Dose Admin Acetaminophen 650 mg 06/03/20 16:52 06/07/20 17:51 Tylenol PO 650 mg Q4H PRN Administration Headache/Fever or Pain Hydrocodone Bitart/Acetaminophen 1 tab 06/12/20 21:00 06/14/20 20:15 [place] 5/325 PO 1 tab 0300,0900,1500,2100 SHORTY Administration Albuterol Sulfate 1.25 mg 06/03/20 18:30 06/14/20 18:14 Albuterol Sulfate NEB 1.25 mg [id number] SHORTY Administration Albuterol Sulfate 2.5 mg 06/03/20 18:12 06/06/20 14:10 Ventolin NEB 2.5 mg Q6H PRN Administration Dyspnea/Wheezing/SOB Aspirin 81 mg 06/03/20 21:00 06/14/20 20:14 Ecotrin PO 81 mg BID SHORTY Administration Atorvastatin Calcium 20 mg 06/02/20 21:00 06/14/20 20:14 Lipitor PO 20 mg HS SHORTY Administration Cholecalciferol 800 units 06/07/20 09:00 06/14/20 08:43 Vitamin D PO 800 units DAILY SHORTY Administration Doxycycline Hyclate 100 mg 06/02/20 21:00 06/14/20 20:14 Vibramycin PO 100 mg BID SHORTY Administration Fentanyl 50 mcg 06/02/20 10:54 06/02/20 14:34 Sublimaze SLOW IVP 50 mcg Q30M PRN Administration Severe breakthrough pain Ferrous Gluconate 324 mg 06/03/20 21:00 06/14/20 20:14 Fergon PO 324 mg BID SHORTY Administration Gabapentin 100 mg 06/02/20 21:00 06/14/20 20:15 Neurontin PO 100 mg BID SHORTY Administration Furosemide 100 mg/ 100 mls @ 2.273 mls/hr 06/10/20 22:27 06/13/20 23:34 Miscellaneous Medication 1 IVPB 100 mls each/ Sodium Chloride INF SHORTY Administration Meropenem 1 gm/ Device 50 mls @ 100 mls/hr 06/12/20 12:00 06/14/20 11:33 IVPB 50 mls 0000,1200 SHORTY Administration Vancomycin HCl 750 mg/ Sodium 250 mls @ 250 mls/hr 06/12/20 16:00 06/14/20 15 :33 Chloride IVPB 250 mls Q2DAYS@1600 SHORTY Administration Iron/Minerals/Multivitamins 1 tab 06/04/20 09:00 06/14/20 08:45 Theragran M PO 1 tab DAILY SHORTY Administration Magnesium Oxide 400 mg 06/11/20 09:00 06/14/20 08:44 Magnesium Oxide PO 400 mg DAILY SHORTY Administration Morphine Sulfate 4 mg 06/02/20 10:54 06/03/20 11:58 Morphine SLOW IVP 4 mg Q2H PRN Administration Severe Pain (7-10) Pantoprazole Sodium 40 mg 06/02/20 21:00 06/14/20 08:45 Protonix PO 40 mg BID SHORTY Administration Senna/Docusate Sodium 2 tab 06/03/20 21:00 06/14/20 08:43 Senokot S PO 2 tab BID SHORTY Administration Sodium Chloride 10 ml 06/03/20 16:52 06/08/20 15:10 Flush - Normal Saline IVF 10 ml PRN PRN Administration Saline Flush Tamsulosin HCl 0.4 mg 06/03/20 09:00 06/14/20 08:45 Flomax PO 0.4 mg DAILY SHORTY Administration - Exam General Appearance: awake alert ENT: normocephalic atraumatic Neck: supple, no JVD Heart: RRR Respiratory: normal chest expansion, no tachypnea Gastrointestinal: soft Extremities: no cyanosis Neurological: cranial nerve grossly intact, no focal deficits Hosp A/P (1) Acute on chronic diastolic (congestive) heart failure Code(s): I50.33 - ACUTE ON CHRONIC DIASTOLIC (CONGESTIVE) HEART FAILURE Status : Acute (2) Atrial fibrillation Code(s): I48.91 - UNSPECIFIED ATRIAL FIBRILLATION Status: Chronic Qualifiers: (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 Code(s): T84.59XA - INFECT/INFLM REACTION DUE TO OTH INTERNAL JOINT PROSTH, INIT ; Z96.649 - PRESENCE OF UNSPECIFIED ARTIFICIAL HIP JOINT Status: Acute (4) BPH (benign prostatic hyperplasia) Code(s): N40.0 - BENIGN PROSTATIC HYPERPLASIA WITHOUT LOWER URINRY TRACT SYMP Status: Chronic Qualifiers: (5) CKD (chronic kidney disease) stage 3, GFR 30-59 ml/min Code(s): N18.3 - CHRONIC KIDNEY DISEASE, STAGE 3 (MODERATE) Status: Chronic (6) HTN (hypertension) Code(s): I10 - ESSENTIAL (PRIMARY) HYPERTENSION Status: Chronic Qualifiers: - Plan 06/10: This is an 79 year old male with past medical history of multiple hip surgeries presenting with left thigh and hip pain Left thigh and hip pain 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 On vanc and meropenem. WBC is normal. Continue antibiotics through the end of June per Dr. Beaver Acute diastolic heart failure secondary to pulmonary edema - ECHO 06/03 showed severely elevated pulm artery pressure . Chest X ray shows widespread interstitial reticulonodular prominence -Was on IV Lasix twice daily and metolazone per cardiology. Transitioned to lasix drip 06/09. Continue current lasix drip. Cardiology will add another dose of metolazone today Scrotal swelling/edema - from fluid overload - testicular ultrasound showed possible cellulitis. CT abdomen showed edema, no air or gas. Urology consulted, thought no signs of Eladia's and from fluid - continue lasix drip NNEKA - likely cardiorenal - creatinine has gone up to 1.96. On lasix drip, per cardiology give metolazone and recheck creatinine tomorrow #Anemia - possibly blood loss related from surgery. He received blood transfusion on . Globin 8.3 Hypocalcemia - possibly from vitamin D deficiency - resolved, - started on vitamin D supplementation given slightly low levels of 23 Physical deconditioning - continue PT and OT 06/11: The patient is still significantly edematous. He is tolerating Lasix drip without worsening creatinine level. I will continue that since we are achieving a negative fluid balance of about 1 L/day. 06/12: Lower extremity edema is not showing much improvement despite diuresis. His urine output is adequate with Lasix, however, his oral intake is also significant. We will limit his intake of fluids to 1400 cc. 06/13: There is slight improvement in the lower extremity edema. Stricter fluid restriction was implemented yesterday. Additional doses of Lasix were given today in addition to metolazone. Creatinine level appears to be stable. I have consulted nephrology to assist with diuresis given the altered kidney function. Continue IV antibiotics per ID recommendations. Continue PT and OT. I have asked nursing staff to use standing scale for weight measures for better accuracy. 06/14: Apparently, the patient was not on low-salt diet. This was implemented today in addition to fluid restriction. Remains on Lasix drip. Additional dose was given with albumin and blood transfusions given his anemia and hypoalbuminemia. Continue metolazone daily per nephrology. Daily BMP.
[2020-06-14] MEDS: Furosemide 100 MG, Admixture Fee 1 EACH in Sodium Chloride 0.9% 90 ML IVPB SCH (23:48)
[2020-06-15] MEDS: MEROPENEM 1 GM/50 ML 1 GM in Premix Bag 1 BAG IVPB SCH ×2 (00:02→12:39)
[2020-06-15] MEDS: Senokot S 8.6-50 MG TAB PO SCH ×3 (00:41→21:17)
[2020-06-15 01:07] LABS: Hemoglobin 7.9 g/dL (14.0-18.0); Mean Corpuscular HGB CONC 29.7 g/dL (32.0-36.0); Mean Corpuscular Hemoglobin 25.8 pg (27.0-31.0); Mean Corpuscular Volume 86.8 fL (78.0-98.0); Mean Platelet Volume 8.4 fL (7.4-10.4); Platelet Count 383 thou/uL (130-400); RBC Distribution Width 17.7 % (11.5-14.5); Red Blood Cell (RBC) Count 3.06 mill/uL (4.70-6.10); White Blood Cell (WBC) Count 13.8 thou/uL (4.8-10.8)
[2020-06-15] MEDS: Albuterol Sulfate 1.25 MG/3 ML NEB NEB SCH ×6 (01:39→21:31)
[2020-06-15] MEDS: HYDROcodone/Acetaminophen 5/325 mg Tablet PO SCH ×4 (04:39→21:16)
[2020-06-15 05:01] LABS: Hemoglobin 7.8 g/dL (14.0-18.0); Mean Corpuscular HGB CONC 30.2 g/dL (32.0-36.0); Mean Corpuscular Hemoglobin 26.7 pg (27.0-31.0); Mean Corpuscular Volume 88.3 fL (78.0-98.0); Mean Platelet Volume 8.2 fL (7.4-10.4); Platelet Count 373 thou/uL (130-400); RBC Distribution Width 17.8 % (11.5-14.5); Red Blood Cell (RBC) Count 2.92 mill/uL (4.70-6.10); White Blood Cell (WBC) Count 13.5 thou/uL (4.8-10.8)
[2020-06-15] MEDS ORDERED: Metolazone 5 MG TAB PO SCH (07:15)
[2020-06-15] MEDS: Ferrous Gluconate 324 MG TAB PO SCH ×2 (08:50→21:18)
[2020-06-15] MEDS: Multivitamin W/ Minerals 1 TAB PO SCH (08:50)
[2020-06-15] MEDS: Aspirin 81 mg Enteric Coated Tablet PO SCH (08:50)
[2020-06-15] MEDS: Cholecalciferol (Vitamin D3) 400 UNITS TAB PO SCH (08:50)
[2020-06-15] MEDS: Tamsulosin HCl 0.4 MG CAP PO SCH (08:50)
[2020-06-15] MEDS: Gabapentin 100 MG CAP PO SCH ×2 (08:50→21:17)
[2020-06-15] MEDS: Magnesium Oxide 400 MG TAB PO SCH (08:50)
[2020-06-15] MEDS: Doxycycline 100 MG CAP PO SCH ×2 (08:51→21:17)
[2020-06-15] MEDS: Enoxaparin Sodium 30 MG/0.3 ML SYRINGE SC SCH (09:06)
[2020-06-15 09:22] LABS: Anion Gap 17 mmol/L (10-20); BUN (Urea Nitrogen) 66 mg/dL (8.4-25.7); Calc. Creatinine Clearance 38 mL/min (70-130); Carbon Dioxide 24 mmol/L (23-31); Chloride 102 mmol/L (98-107); Estimated GFR-MDRD 29; Glucose 90 mg/dL (83-110); Potassium 4.2 mmol/L (3.5-5.1); Sodium 139 mmol/L (136-145)
--- NOTE | 2020-06-15 09:35 | PRG ---
DATE OF SERVICE: 06/15/2020 SUBJECTIVE: An 79-year-old gentleman, being seen for acute kidney injury. The patient denies any nausea, vomiting, or chest pain. OBJECTIVE: GENERAL: The patient is awake and alert. VITAL SIGNS: Afebrile, pulse 84, breathing at 16, and blood pressure 117/70. HEENT: Head normocephalic and atraumatic. Eyes intact, no ulcers. Nose intact, no ulcers. Ears intact, no ulcers. Neck: Supple. No JVD. Chest: Symmetrical and clear. Cardiovascular: Shows S1 and S2, no rub, no murmur. Gastrointestinal: Abdomen is soft, bowel sounds positive. Extremities: Show no edema or ulcers. Skin: Shows no rash or petechiae. Musculoskeletal: Shows no joint swelling or stiffness. Genitourinary: Shows no De or CVA tenderness. Neurologic: Motor intact. Cranial nerves intact. General: Physical exam. LABORATORY DATA: Reviewed. ASSESSMENT AND PLAN: 1. Acute kidney injury on chronic kidney disease, stage 3. Continue aggressive diuresis. 2. Hypertension, stable. 3. Anemia, stable. 4. Medication based on GFR are appropriate. Job ID: [id number]
--- NOTE | 2020-06-15 14:06 | PDOC.HOSPP ---
- Subjective Encounter Date: 06/15/20 Subjective: The patient's lower extremity edema is improving today. - Objective Vital Signs & Weight: Vital Signs (12 hours) Temp Pulse Resp BP Pulse Ox 06/15/20 13:44 106 H 24 H 06/15/20 11:09 98.4 F 93 16 105/58 L 95 06/15/20 10:17 86 16 100 06/15/20 08:08 97.6 F 84 16 117/70 99 06/15/20 08:00 99 06/15/20 06:58 88 16 99 Weight Admit Weight 195 lb Weight 222 lb I&O: 06/14/20 06/15/20 06/16/20 06:59 06:59 06:59 Intake Total 1546.3 1541.6 Output Total 1700 1950 Balance -153.7 -408.4 Result Diagrams: 06/15/20 04:42 06/15/20 04:42 Hospitalist ROS - Medication Medications: Active Medications Generic Name Dose Route Start Last Admin Trade Name Freq PRN Reason Stop Dose Admin Acetaminophen 650 mg 06/03/20 16:52 06/07/20 17:51 Tylenol PO 650 mg Q4H PRN Administration Headache/Fever or Pain Hydrocodone Bitart/Acetaminophen 1 tab 06/12/20 21:00 06/15/20 08:49 [place] 5/325 PO 1 tab 0300,0900,1500,2100 SHORTY Administration Albuterol Sulfate 1.25 mg 06/03/20 18:30 06/15/20 13:44 Albuterol Sulfate NEB 1.25 mg [id number] SHORTY Administration Albuterol Sulfate 2.5 mg 06/03/20 18:12 06/06/20 14:10 Ventolin NEB 2.5 mg Q6H PRN Administration Dyspnea/Wheezing/SOB Atorvastatin Calcium 20 mg 06/02/20 21:00 06/14/20 20:14 Lipitor PO 20 mg HS SHORTY Administration Cholecalciferol 800 units 06/07/20 09:00 06/15/20 08:50 Vitamin D PO 800 units DAILY SHORTY Administration Doxycycline Hyclate 100 mg 06/02/20 21:00 06/15/20 08:51 Vibramycin PO 100 mg BID SHORTY Administration Enoxaparin Sodium 30 mg 06/15/20 09:00 06/15/20 09:06 Lovenox SC 30 mg 0900 SHORTY Administration Fentanyl 50 mcg 06/02/20 10:54 06/02/20 14:34 Sublimaze SLOW IVP 50 mcg Q30M PRN Administration Severe breakthrough pain Ferrous Gluconate 324 mg 06/03/20 21:00 06/15/20 08:50 Fergon PO 324 mg BID SHORTY Administration Gabapentin 100 mg 06/02/20 21:00 06/15/20 08:50 Neurontin PO 100 mg BID SHORTY Administration Furosemide 100 mg/ 100 mls @ 2.273 mls/hr 06/10/20 22:27 06/14/20 23:48 Miscellaneous Medication 1 IVPB 100 mls each/ Sodium Chloride INF SHORTY Administration Meropenem 1 gm/ Device 50 mls @ 100 mls/hr 06/12/20 12:00 06/15/20 12:39 IVPB 50 mls 0000,1200 SHORTY Administration Vancomycin HCl 750 mg/ Sodium 250 mls @ 250 mls/hr 06/12/20 16:00 06/14/20 15 :33 Chloride IVPB 250 mls Q2DAYS@1600 SHORTY Administration Iron/Minerals/Multivitamins 1 tab 06/04/20 09:00 06/15/20 08:50 Theragran M PO 1 tab DAILY SHORTY Administration Magnesium Oxide 400 mg 06/11/20 09:00 06/15/20 08:50 Magnesium Oxide PO 400 mg DAILY SHORTY Administration Morphine Sulfate 4 mg 06/02/20 10:54 06/03/20 11:58 Morphine SLOW IVP 4 mg Q2H PRN Administration Severe Pain (7-10) Pantoprazole Sodium 40 mg 06/02/20 21:00 06/15/20 08:50 Protonix PO 40 mg BID [facility] Administration Senna/Docusate Sodium 2 tab 06/03/20 21:00 06/15/20 08:51 Senokot S PO Not Given BID SHORTY Sodium Chloride 10 ml 06/03/20 16:52 06/08/20 15:10 Flush - Normal Saline IVF 10 ml PRN PRN Administration Saline Flush Tamsulosin HCl 0.4 mg 06/03/20 09:00 06/15/20 08:50 Flomax PO 0.4 mg DAILY SHORTY Administration - Exam General Appearance: awake alert ENT: normocephalic atraumatic Neck: supple, no JVD Respiratory: normal chest expansion, no tachypnea, rhonchi Gastrointestinal: soft Extremities: 2+ LE edema Neurological: cranial nerve grossly intact, no focal deficits Hosp A/P (1) Acute on chronic diastolic (congestive) heart failure Code(s): I50.33 - ACUTE ON CHRONIC DIASTOLIC (CONGESTIVE) HEART FAILURE Status : Acute (2) Atrial fibrillation Code(s): I48.91 - UNSPECIFIED ATRIAL FIBRILLATION Status: Chronic Qualifiers: (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 Code(s): T84.59XA - INFECT/INFLM REACTION DUE TO OTH INTERNAL JOINT PROSTH, INIT ; Z96.649 - PRESENCE OF UNSPECIFIED ARTIFICIAL HIP JOINT Status: Acute (4) BPH (benign prostatic hyperplasia) Code(s): N40.0 - BENIGN PROSTATIC HYPERPLASIA WITHOUT LOWER URINRY TRACT SYMP Status: Chronic Qualifiers: (5) CKD (chronic kidney disease) stage 3, GFR 30-59 ml/min Code(s): N18.3 - CHRONIC KIDNEY DISEASE, STAGE 3 (MODERATE) Status: Chronic (6) HTN (hypertension) Code(s): I10 - ESSENTIAL (PRIMARY) HYPERTENSION Status: Chronic Qualifiers: - Plan 06/10: This is an 79 year old male with past medical history of multiple hip surgeries presenting with left thigh and hip pain Left thigh and hip pain 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 On vanc and meropenem. WBC is normal. Continue antibiotics through the end of June per Dr. Beaver Acute diastolic heart failure secondary to pulmonary edema - ECHO 06/03 showed severely elevated pulm artery pressure . Chest X ray shows widespread interstitial reticulonodular prominence -Was on IV Lasix twice daily and metolazone per cardiology. Transitioned to lasix drip 06/09. Continue current lasix drip. Cardiology will add another dose of metolazone today Scrotal swelling/edema - from fluid overload - testicular ultrasound showed possible cellulitis. CT abdomen showed edema, no air or gas. Urology consulted, thought no signs of Eladia's and from fluid - continue lasix drip NNEKA - likely cardiorenal - creatinine has gone up to 1.96. On lasix drip, per cardiology give metolazone and recheck creatinine tomorrow #Anemia - possibly blood loss related from surgery. He received blood transfusion on . [place] 8.3 Hypocalcemia - possibly from vitamin D deficiency - resolved, - started on vitamin D supplementation given slightly low levels of 23 Physical deconditioning - continue PT and OT 06/11: The patient is still significantly edematous. He is tolerating Lasix drip without worsening creatinine level. I will continue that since we are achieving a negative fluid balance of about 1 L/day. 06/12: Lower extremity edema is not showing much improvement despite diuresis. His urine output is adequate with Lasix, however, his oral intake is also significant. We will limit his intake of fluids to 1400 cc. 06/13: There is slight improvement in the lower extremity edema. Stricter fluid restriction was implemented yesterday. Additional doses of Lasix were given today in addition to metolazone. Creatinine level appears to be stable. I have consulted nephrology to assist with diuresis given the altered kidney function. Continue IV antibiotics per ID recommendations. Continue PT and OT. I have asked nursing staff to use standing scale for weight measures for better accuracy. 06/14: Apparently, the patient was not on low-salt diet. This was implemented today in addition to fluid restriction. Remains on Lasix drip. Additional dose was given with albumin and blood transfusions given his anemia and hypoalbuminemia. Continue metolazone daily per nephrology. Daily BMP. 06/15: Negative fluid balance over the past 24 hours. Continue fluid restriction and low-salt diet. Continue Lasix drip. He was given a dose of metolazone today. He received 1 unit of packed RBCs yesterday and his hemoglobin level raised accordingly. Continue to monitor H&H.
[2020-06-15 15:17] LABS: Vancomycin, Trough 15.6 ug/mL
[2020-06-15] MEDS ORDERED: Furosemide 100 MG, Admixture Fee 1 EACH in Sodium Chloride 0.9% 90 ML IVPB SCH (15:40)
[2020-06-15] MEDS: Vancomycin HCl 500 MG in Sodium Chloride 0.9% 100 ML IVPB SCH (16:17)
[2020-06-15] MEDS: Atorvastatin Calcium 20 MG TAB PO SCH (21:17)
[2020-06-16] MEDS: MEROPENEM 1 GM/50 ML 1 GM in Premix Bag 1 BAG IVPB SCH ×2 (00:03→13:11)
[2020-06-16] MEDS: Albuterol Sulfate 1.25 MG/3 ML NEB NEB SCH ×4 (02:49→13:52)
[2020-06-16] MEDS: HYDROcodone/Acetaminophen 5/325 mg Tablet PO SCH ×4 (03:30→21:19)
[2020-06-16 05:15] LABS: #Eosinphils 0.3 thou/uL (0.0-0.7); #Lymphocytes 1.3 thou/uL (1.20-3.40); #Monocytes 1.1 thou/uL (0.11-0.59); #Neutrophils 9.3 thou/uL (1.40-6.50); %Basophils 0.4 % (0.0-1.0); %Eosinophils 2.8 % (0.0-10.0); %Lymphocytes 10.8 % (21.0-51.0); %Monocytes 8.8 % (0.0-10.0); %Neutrophils 77.2 % (42.0-75.0); Hemoglobin 7.7 g/dL (14.0-18.0); Mean Corpuscular HGB CONC 29.4 g/dL (32.0-36.0); Mean Corpuscular Hemoglobin 25.5 pg (27.0-31.0); Mean Corpuscular Volume 86.7 fL (78.0-98.0); Mean Platelet Volume 8.4 fL (7.4-10.4); Platelet Count 426 thou/uL (130-400); RBC Distribution Width 17.8 % (11.5-14.5); Red Blood Cell (RBC) Count 3.02 mill/uL (4.70-6.10); White Blood Cell (WBC) Count 12.1 thou/uL (4.8-10.8)
[2020-06-16 05:29] LABS: Anion Gap 14 mmol/L (10-20); BUN (Urea Nitrogen) 67 mg/dL (8.4-25.7); Calc. Creatinine Clearance 41 mL/min (70-130); Calcium 8.1 mg/dL (7.8-10.44); Carbon Dioxide 27 mmol/L (23-31); Chloride 102 mmol/L (98-107); Estimated GFR-MDRD 32; Glucose 89 mg/dL (83-110); Potassium 3.6 mmol/L (3.5-5.1); Sodium 139 mmol/L (136-145)
[2020-06-16] MEDS ORDERED: Furosemide 100 MG, Admixture Fee 1 EACH in Sodium Chloride 0.9% 90 ML IVPB SCH ×2 (07:38→18:16)
[2020-06-16] MEDS ORDERED: Metolazone 5 MG TAB PO SCH (07:45)
[2020-06-16] MEDS: Doxycycline 100 MG CAP PO SCH ×2 (08:37→21:20)
[2020-06-16] MEDS: Enoxaparin Sodium 30 MG/0.3 ML SYRINGE SC SCH (08:38)
[2020-06-16] MEDS: Magnesium Oxide 400 MG TAB PO SCH (08:38)
[2020-06-16] MEDS: Multivitamin W/ Minerals 1 TAB PO SCH (08:38)
[2020-06-16] MEDS: Gabapentin 100 MG CAP PO SCH ×2 (08:38→21:20)
[2020-06-16] MEDS: Senokot S 8.6-50 MG TAB PO SCH ×2 (08:38→21:20)
[2020-06-16] MEDS: Tamsulosin HCl 0.4 MG CAP PO SCH (08:39)
[2020-06-16] MEDS: Ferrous Gluconate 324 MG TAB PO SCH ×2 (08:39→21:20)
[2020-06-16] MEDS: Cholecalciferol (Vitamin D3) 400 UNITS TAB PO SCH (08:39)
[2020-06-16] MEDS: Aspirin 81 mg Enteric Coated Tablet PO SCH (08:39)
--- NOTE | 2020-06-16 11:19 | PRG ---
DATE OF SERVICE: SUBJECTIVE: An 79-year-old gentleman being seen for acute kidney injury. The patient denied nausea, vomiting, or chest pain. PHYSICAL EXAMINATION: General: The patient is awake and alert. Vital Signs: Afebrile, pulse 75, breathing 16, blood pressure 124/69. HEENT: Head normocephalic and atraumatic. Eyes intact, no ulcers. Nose intact, no ulcers. Ears intact, no ulcers. Neck: Supple. No JVD. Chest: Symmetrical and clear. Cardiovascular: Shows S1 and S2, no rub, no murmur. Gastrointestinal: Abdomen is soft, bowel sounds positive. Extremities: Show no edema or ulcers. Skin: Shows no rash or petechiae. Musculoskeletal: Shows no joint swelling or stiffness. Genitourinary: Shows no De or CVA tenderness. Neurologic: Motor intact. Cranial nerves intact. LABORATORY DATA: Labs show hemoglobin 7.7. Creatinine 2.0. ASSESSMENT AND PLAN: Chronic kidney disease stage 3, stable. Congestive heart failure, continue diuresis. Anemia, would recommend transfusion. No indication for dialysis. Prognosis is poor. Job ID: [id number]
--- NOTE | 2020-06-16 14:49 | PDOC.HOSPP ---
- Subjective Encounter Date: 06/16/20 Encounter Time: 14:48 Subjective: Pt reports he overall feels well. Feels that he is not moving air well and needs another neb treatment. Denies chest pain, palpitations. Denies productive cough. Adhering to his fluid restriction. Chart and medications reviewed. - Objective Vital Signs & Weight: Vital Signs (12 hours) Temp Pulse Resp BP BP Pulse Ox 06/16/20 11:31 98.1 F 94 20 101/55 L 95 06/16/20 10:21 85 16 95 06/16/20 07:25 97.7 F 88 18 124/67 93 L 06/16/20 06:32 92 16 95 06/16/20 03:44 97.6 F 86 18 120/71 93 L 06/16/20 02:49 88 16 93 L Weight Admit Weight 195 lb Weight 219 lb 12.8 oz I&O: 06/15/20 06/16/20 06/17/20 06:59 06:59 06:59 Intake Total 1541.6 1320 Output Total 1950 1400 Balance -408.4 -80 Result Diagrams: 06/16/20 05:00 06/16/20 05:00 Hospitalist ROS - Review of Systems Eyes: denies: pain, vision change, conjunctivae inflammation, eyelid inflammation, redness, other ENT: denies: nose congestion, throat pain Respiratory: reports: shortness of breath, wheezing. denies: cough, dry, hemoptysis, SOB with excertion, pleuritic pain, sputum, other Cardiovascular: reports: orthopnea, edema. denies: chest pain, palpitations, paroxysmal noc. dyspnea, light headedness, other Gastrointestinal: denies: nausea, vomiting, abdominal pain, diarrhea, constipation, melena, hematochezia, other Genitourinary: denies: dysuria, frequency, incontinence, hematuria, retention, other Skin: denies: rash, lesions Neurological: denies: weakness, numbness - Medication Medications: Active Medications Generic Name Dose Route Start Last Admin Trade Name Freq PRN Reason Stop Dose Admin Acetaminophen 650 mg 06/03/20 16:52 06/07/20 17:51 Tylenol PO 650 mg Q4H PRN Administration Headache/Fever or Pain Hydrocodone Bitart/Acetaminophen 1 tab 06/12/20 21:00 06/16/20 08:39 [place] 5/325 PO 1 tab 0300,0900,1500,2100 SHORTY Administration Albuterol Sulfate 1.25 mg 06/03/20 18:30 06/16/20 13:52 Albuterol Sulfate NEB 1.25 mg [id number] SHORYT Administration Albuterol Sulfate 2.5 mg 06/03/20 18:12 06/06/20 14:10 Ventolin NEB 2.5 mg Q6H PRN Administration Dyspnea/Wheezing/SOB Aspirin 81 mg 06/16/20 09:00 06/16/20 08:39 Ecotrin PO 81 mg DAILY SHORTY Administration Atorvastatin Calcium 20 mg 06/02/20 21:00 06/15/20 21:17 Lipitor PO 20 mg HS SHORTY Administration Cholecalciferol 800 units 06/07/20 09:00 06/16/20 08:39 Vitamin D PO 800 units DAILY SHORTY Administration Doxycycline Hyclate 100 mg 06/02/20 21:00 06/16/20 08:37 Vibramycin PO 100 mg BID SHORTY Administration Enoxaparin Sodium 30 mg 06/15/20 09:00 06/16/20 08:38 Lovenox SC 30 mg 0900 SHORTY Administration Fentanyl 50 mcg 06/02/20 10:54 06/02/20 14:34 Sublimaze SLOW IVP 50 mcg Q30M PRN Administration Severe breakthrough pain Ferrous Gluconate 324 mg 06/03/20 21:00 06/16/20 08:39 Fergon PO 324 mg BID SHORTY Administration Gabapentin 100 mg 06/02/20 21:00 06/16/20 08:38 Neurontin PO 100 mg BID SHORTY Administration Meropenem 1 gm/ Device 50 mls @ 100 mls/hr 06/12/20 12:00 06/16/20 13:11 IVPB 50 mls 0000,1200 SHORTY Administration Vancomycin HCl 500 mg/ Sodium 100 mls @ 100 mls/hr 06/15/20 16:00 06/15/20 16 :17 Chloride IVPB 100 mls 1600 SHORTY Administration Iron/Minerals/Multivitamins 1 tab 06/04/20 09:00 06/16/20 08:38 Theragran M PO 1 tab DAILY SHORTY Administration Magnesium Oxide 400 mg 06/11/20 09:00 06/16/20 08:38 Magnesium Oxide PO 400 mg DAILY SHORTY Administration Morphine Sulfate 4 mg 06/02/20 10:54 06/03/20 11:58 Morphine SLOW IVP 4 mg Q2H PRN Administration Severe Pain (7-10) Pantoprazole Sodium 40 mg 06/02/20 21:00 06/16/20 08:39 Protonix PO 40 mg BID SHORTY Administration Senna/Docusate Sodium 2 tab 06/03/20 21:00 06/16/20 08:38 Senokot S PO 2 tab BID SHORTY Administration Sodium Chloride 10 ml 06/03/20 16:52 06/08/20 15:10 Flush - Normal Saline IVF 10 ml PRN PRN Administration Saline Flush Tamsulosin HCl 0.4 mg 06/03/20 09:00 06/16/20 08:39 Flomax PO 0.4 mg DAILY SHORTY Administration - Exam General Appearance: NAD, awake alert Eye: anicteric sclera ENT: normocephalic atraumatic, no oropharyngeal lesions, moist mucosa Neck: supple, symmetric Heart: RRR, no murmur, no gallops, no rubs, normal peripheral pulses Respiratory: no tachypnea, wheezes Gastrointestinal: soft, non-tender, non-distended, normal bowel sounds, no palpable masses, no hepatomegaly, no splenomegaly, no bruit Extremities: 2+ LE edema Skin: no rashes Neurological: no weakness, no focal deficits Musculoskeletal: normal tone, normal strength Psychiatric: normal affect, A&O x 3 Hosp A/P - Plan 06/10: This is an 79 year old male with past medical history of multiple hip surgeries presenting with left thigh and hip pain Left thigh and hip pain 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 On vanc and meropenem. WBC is normal. Continue antibiotics through the end of June per Dr. Beaver Acute diastolic heart failure secondary to pulmonary edema - ECHO 06/03 showed severely elevated pulm artery pressure . Chest X ray shows widespread interstitial reticulonodular prominence -Was on IV Lasix twice daily and metolazone per cardiology. Transitioned to lasix drip 06/09. Continue current lasix drip. Cardiology will add another dose of metolazone today Scrotal swelling/edema - from fluid overload - testicular ultrasound showed possible cellulitis. CT abdomen showed edema, no air or gas. Urology consulted, thought no signs of Eladia's and from fluid - continue lasix drip NNEKA - likely cardiorenal - creatinine has gone up to 1.96. On lasix drip, per cardiology give metolazone and recheck creatinine tomorrow #Anemia - possibly blood loss related from surgery. He received blood transfusion on . Globin 8.3 Hypocalcemia - possibly from vitamin D deficiency - resolved, - started on vitamin D supplementation given slightly low levels of 23 Physical deconditioning - continue PT and OT 06/11: The patient is still significantly edematous. He is tolerating Lasix drip without worsening creatinine level. I will continue that since we are achieving a negative fluid balance of about 1 L/day. 06/12: Lower extremity edema is not showing much improvement despite diuresis. His urine output is adequate with Lasix, however, his oral intake is also significant. We will limit his intake of fluids to 1400 cc. 06/13: There is slight improvement in the lower extremity edema. Stricter fluid restriction was implemented yesterday. Additional doses of Lasix were given today in addition to metolazone. Creatinine level appears to be stable. I have consulted nephrology to assist with diuresis given the altered kidney function. Continue IV antibiotics per ID recommendations. Continue PT and OT. I have asked nursing staff to use standing scale for weight measures for better accuracy. 06/14: Apparently, the patient was not on low-salt diet. This was implemented today in addition to fluid restriction. Remains on Lasix drip. Additional dose was given with albumin and blood transfusions given his anemia and hypoalbuminemia. Continue metolazone daily per nephrology. Daily BMP. 06/15: Negative fluid balance over the past 24 hours. Continue fluid restriction and low-salt diet. Continue Lasix drip. He was given a dose of metolazone today. He received 1 unit of packed RBCs yesterday and his hemoglobin level raised accordingly. Continue to monitor H&H. 06/16: R hip infection: Morganella infection. Continue IV abx per ID with vancomycin and meropenem. CHF: Fluid improving, still pitting edema to lower extremities. Cr stable at 2. Negative fluid balance today. -Continue fluid restriction/low na diet -Continue lasix drip, metolazone NNEKA: Kidney failure with elevated Cr. Now stabilized at 2. Nephrology following. Likely componenet of cardiorenal. -Continue diuresis -Trend kidney function -Nephro recs appreciated Anemia: Likely secondary to chronic disease. Now s/p 1 unit pRBCs. H/H stable this am. Will continue to monitor with lower transfusion threshold given cardiac disease. COPD: on home o2, increased wheezing on exam today. -Duonebs q6 to q4 -Predisone 40 mg Case discussed with attending physician, Dr. Andres.
[2020-06-16] MEDS ORDERED: predniSONE 20 MG TAB PO SCH (15:45)
[2020-06-16] MEDS: Vancomycin HCl 500 MG in Sodium Chloride 0.9% 100 ML IVPB SCH (16:01)
[2020-06-16] MEDS: Atorvastatin Calcium 20 MG TAB PO SCH (21:20)
[2020-06-17] MEDS: MEROPENEM 1 GM/50 ML 1 GM in Premix Bag 1 BAG IVPB SCH ×3 (00:14→23:57)
[2020-06-17] MEDS: HYDROcodone/Acetaminophen 5/325 mg Tablet PO SCH ×4 (03:45→20:39)
[2020-06-17 04:59] LABS: #Basophils 0.2 thou/uL (0.0-0.2); #Eosinphils 0.1 thou/uL (0.0-0.7); #Lymphocytes 0.6 thou/uL (1.20-3.40); #Monocytes 0.3 thou/uL (0.11-0.59); #Neutrophils 9.6 thou/uL (1.40-6.50); %Basophils 1.4 % (0.0-1.0); %Eosinophils 0.9 % (0.0-10.0); %Lymphocytes 5.1 % (21.0-51.0); %Monocytes 2.5 % (0.0-10.0); %Neutrophils 90.1 % (42.0-75.0); Hemoglobin 7.4 g/dL (14.0-18.0); Mean Corpuscular HGB CONC 30.3 g/dL (32.0-36.0); Mean Corpuscular Hemoglobin 26.2 pg (27.0-31.0); Mean Corpuscular Volume 86.4 fL (78.0-98.0); Mean Platelet Volume 8.5 fL (7.4-10.4); Platelet Count 381 thou/uL (130-400); RBC Distribution Width 18.4 % (11.5-14.5); Red Blood Cell (RBC) Count 2.82 mill/uL (4.70-6.10); White Blood Cell (WBC) Count 10.7 thou/uL (4.8-10.8)
[2020-06-17 05:16] LABS: Anion Gap 14 mmol/L (10-20); BUN (Urea Nitrogen) 73 mg/dL (8.4-25.7); Calc. Creatinine Clearance 40 mL/min (70-130); Calcium 8.1 mg/dL (7.8-10.44); Carbon Dioxide 27 mmol/L (23-31); Chloride 100 mmol/L (98-107); Estimated GFR-MDRD 31; Glucose 148 mg/dL (83-110); Potassium 3.5 mmol/L (3.5-5.1); Sodium 137 mmol/L (136-145)
[2020-06-17] MEDS ORDERED: Metolazone 5 MG TAB PO SCH (07:15)
[2020-06-17] MEDS ORDERED: Potassium Chloride 20 MEQ TAB PO SCH (07:15)
[2020-06-17] MEDS: Cholecalciferol (Vitamin D3) 400 UNITS TAB PO SCH (08:29)
[2020-06-17] MEDS: Senokot S 8.6-50 MG TAB PO SCH ×2 (08:29→20:39)
[2020-06-17] MEDS: Multivitamin W/ Minerals 1 TAB PO SCH (08:30)
[2020-06-17] MEDS: Tamsulosin HCl 0.4 MG CAP PO SCH (08:30)
[2020-06-17] MEDS: Magnesium Oxide 400 MG TAB PO SCH (08:30)
[2020-06-17] MEDS: Ferrous Gluconate 324 MG TAB PO SCH ×2 (08:30→20:40)
[2020-06-17] MEDS: Gabapentin 100 MG CAP PO SCH ×2 (08:30→20:40)
[2020-06-17] MEDS: Aspirin 81 mg Enteric Coated Tablet PO SCH (08:30)
[2020-06-17] MEDS: Doxycycline 100 MG CAP PO SCH ×2 (08:30→20:39)
[2020-06-17] MEDS: Enoxaparin Sodium 30 MG/0.3 ML SYRINGE SC SCH (08:47)
[2020-06-17] MEDS ORDERED: Furosemide 100 MG, Admixture Fee 1 EACH in Sodium Chloride 0.9% 90 ML IVPB SCH (08:58)
--- NOTE | 2020-06-17 10:21 | PRG ---
DATE OF SERVICE: 06/17/2020 SUBJECTIVE: Mr. Mart is still tremendously edematous. His breathing is about the same. He is only having a modest response to the diuretics. OBJECTIVE: VITAL SIGNS: His blood pressure 123/62, pulse 90 earlier, now 70. LUNGS: No wheezing. CARDIAC: Normal S1, normal S2. ABDOMEN: Obese, nontender. EXTREMITIES: Still severe edema. LABORATORY DATA: Most recent hemoglobin 7.4. ASSESSMENT: 1. Severe edema due to diastolic dysfunction as well as COPD with right heart failure. 2. Refractory edema. 3. Stage 3 renal failure. Creatinine is 2.07. PLAN: 1. We will have to increase diuretic dose. 2. Metolazone 5 mg a day. 3. If the kidney function worsen, may need to consider early short-term dialysis. 4. He is on low-dose Lovenox for DVT prophylaxis. 5. Low-dose aspirin for severe underlying coronary artery disease. Job ID: [id number] MTDD
--- NOTE | 2020-06-17 10:55 | PDOC.HOSPP ---
- Subjective Encounter Date: 06/17/20 Subjective: The patient is sitting in his chair today. Shortness of breath has improved since yesterday. - Objective Vital Signs & Weight: Vital Signs (12 hours) Temp Pulse Resp BP BP Pulse Ox 06/17/20 09:00 97.7 F 99 20 132/61 92 L 06/17/20 05:21 77 20 06/17/20 05:17 97.7 F 92 18 123/62 92 L 06/17/20 05:00 97.7 F 92 20 123/62 92 L 06/17/20 02:03 16 06/17/20 00:00 98.3 F 82 16 149/72 H 97 Weight Admit Weight 195 lb Weight 221 lb 8 oz I&O: 06/16/20 06/17/20 06/18/20 06:59 06:59 06:59 Intake Total 1320 1630 Output Total 1400 2400 Balance -80 -770 Result Diagrams: 06/17/20 04:22 06/17/20 04:22 Hospitalist ROS - Medication Medications: Active Medications Generic Name Dose Route Start Last Admin Trade Name Freq PRN Reason Stop Dose Admin Acetaminophen 650 mg 06/03/20 16:52 06/07/20 17:51 Tylenol PO 650 mg Q4H PRN Administration Headache/Fever or Pain Hydrocodone Bitart/Acetaminophen 1 tab 06/12/20 21:00 06/17/20 08:29 [place] 5/325 PO 1 tab 0300,0900,1500,2100 SHORTY Administration Albuterol Sulfate 2.5 mg 06/03/20 18:12 06/06/20 14:10 Ventolin NEB 2.5 mg Q6H PRN Administration Dyspnea/Wheezing/SOB Albuterol/Ipratropium 3 ml 06/16/20 18:30 06/17/20 05:21 Duoneb NEB 3 ml [id number] SHORTY Administration Aspirin 81 mg 06/16/20 09:00 06/17/20 08:30 Ecotrin PO 81 mg DAILY SHORTY Administration Atorvastatin Calcium 20 mg 06/02/20 21:00 06/16/20 21:20 Lipitor PO 20 mg HS SHORTY Administration Cholecalciferol 800 units 06/07/20 09:00 06/17/20 08:29 Vitamin D PO 800 units DAILY SHORTY Administration Doxycycline Hyclate 100 mg 06/02/20 21:00 06/17/20 08:30 Vibramycin PO 100 mg BID SHORTY Administration Enoxaparin Sodium 30 mg 06/15/20 09:00 06/17/20 08:47 Lovenox SC 30 mg 0900 SHORTY Administration Fentanyl 50 mcg 06/02/20 10:54 06/02/20 14:34 Sublimaze SLOW IVP 50 mcg Q30M PRN Administration Severe breakthrough pain Ferrous Gluconate 324 mg 06/03/20 21:00 06/17/20 08:30 Fergon PO 324 mg BID SHORTY Administration Gabapentin 100 mg 06/02/20 21:00 06/17/20 08:30 Neurontin PO 100 mg BID SHORTY Administration Meropenem 1 gm/ Device 50 mls @ 100 mls/hr 06/12/20 12:00 06/17/20 00:14 IVPB 50 mls 0000,1200 SHORTY Administration Vancomycin HCl 500 mg/ Sodium 100 mls @ 100 mls/hr 06/15/20 16:00 06/16/20 16 :01 Chloride IVPB 100 mls 1600 SHORTY Administration Iron/Minerals/Multivitamins 1 tab 06/04/20 09:00 06/17/20 08:30 Theragran M PO 1 tab DAILY SHORTY Administration Magnesium Oxide 400 mg 06/11/20 09:00 06/17/20 08:30 Magnesium Oxide PO 400 mg DAILY SHORTY Administration Morphine Sulfate 4 mg 06/02/20 10:54 06/03/20 11:58 Morphine SLOW IVP 4 mg Q2H PRN Administration Severe Pain (7-10) Pantoprazole Sodium 40 mg 06/02/20 21:00 06/17/20 08:30 Protonix PO 40 mg BID SHORTY Administration Senna/Docusate Sodium 2 tab 06/03/20 21:00 06/17/20 08:29 Senokot S PO 2 tab BID SHORTY Administration Sodium Chloride 10 ml 06/03/20 16:52 06/08/20 15:10 Flush - Normal Saline IVF 10 ml PRN PRN Administration Saline Flush Tamsulosin HCl 0.4 mg 06/03/20 09:00 06/17/20 08:30 Flomax PO 0.4 mg DAILY SHORTY Administration - Exam General Appearance: awake alert ENT: normocephalic atraumatic Neck: supple, no JVD Respiratory: normal chest expansion, no tachypnea Gastrointestinal: soft Extremities: 2+ LE edema 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 Code(s): T84.59XA - INFECT/INFLM REACTION DUE TO OTH INTERNAL JOINT PROSTH, INIT ; Z96.649 - PRESENCE OF UNSPECIFIED ARTIFICIAL HIP JOINT Status: Acute (4) BPH (benign prostatic hyperplasia) Code(s): N40.0 - BENIGN PROSTATIC HYPERPLASIA WITHOUT LOWER URINRY TRACT SYMP Status: Chronic Qualifiers: (5) CKD (chronic kidney disease) stage 3, GFR 30-59 ml/min Code(s): N18.3 - CHRONIC KIDNEY DISEASE, STAGE 3 (MODERATE) Status: Chronic (6) HTN (hypertension) Code(s): I10 - ESSENTIAL (PRIMARY) HYPERTENSION Status: Chronic Qualifiers: - Plan This is an 79 year old male with past medical history of multiple hip surgeries presenting with left thigh and hip pain Left thigh and hip pain 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 On vanc and meropenem. WBC is normal. Continue antibiotics through the end of June per Dr. Beaver Acute diastolic heart failure secondary to pulmonary edema - ECHO 06/03 showed severely elevated pulm artery pressure . Chest X ray shows widespread interstitial reticulonodular prominence -Was on IV Lasix twice daily and metolazone per cardiology. Transitioned to lasix drip 06/09. Continue current lasix drip. Cardiology will add another dose of metolazone today Scrotal swelling/edema - from fluid overload - testicular ultrasound showed possible cellulitis. CT abdomen showed edema, no air or gas. Urology consulted, thought no signs of Eladia's and from fluid - continue lasix drip NNEKA - likely cardiorenal - creatinine has gone up to 1.96. On lasix drip, per cardiology give metolazone and recheck creatinine tomorrow #Anemia - possibly blood loss related from surgery. He received blood transfusion on . Globin 8.3 Hypocalcemia - possibly from vitamin D deficiency - resolved, - started on vitamin D supplementation given slightly low levels of 23 Physical deconditioning - continue PT and OT 06/11: The patient is still significantly edematous. He is tolerating Lasix drip without worsening creatinine level. I will continue that since we are achieving a negative fluid balance of about 1 L/day. 06/12: Lower extremity edema is not showing much improvement despite diuresis. His urine output is adequate with Lasix, however, his oral intake is also significant. We will limit his intake of fluids to 1400 cc. 06/13: There is slight improvement in the lower extremity edema. Stricter fluid restriction was implemented yesterday. Additional doses of Lasix were given today in addition to metolazone. Creatinine level appears to be stable. I have consulted nephrology to assist with diuresis given the altered kidney function. Continue IV antibiotics per ID recommendations. Continue PT and OT. I have asked nursing staff to use standing scale for weight measures for better accuracy. 06/14: Apparently, the patient was not on low-salt diet. This was implemented today in addition to fluid restriction. Remains on Lasix drip. Additional dose was given with albumin and blood transfusions given his anemia and hypoalbuminemia. Continue metolazone daily per nephrology. Daily BMP. 06/15: Negative fluid balance over the past 24 hours. Continue fluid restriction and low-salt diet. Continue Lasix drip. He was given a dose of metolazone today. He received 1 unit of packed RBCs yesterday and his hemoglobin level raised accordingly. Continue to monitor H&H. 06/17: The patient is volume overload is improving in his lower extremity edema is decreasing. He was short of breath and wheezing yesterday but that has improved with nebulizer treatments and steroids. Lasix drip dose was increased. He remains on metolazone daily. His kidney function is stable. H&H is stable.
--- NOTE | 2020-06-17 11:26 | PRG ---
DATE OF SERVICE: SUBJECTIVE: Bin is an 79-year-old male. He is now postop day 14 for a left hip revision arthroplasty. So far, his right-sided heart failure has been his biggest problem with peripheral edema and he has been overcoming some of this with getting out of bed and standing and sitting up more. His scrotal swelling has gone down and he is able to stand and walk distances up to 40 feet. OBJECTIVE: VITAL SIGNS: Temperature 97.7, pulse 92, respiratory rate 18, and O2 saturation 92% on 4 L nasal cannula, blood pressure is 123/62. GENERAL: He is alert, responsive, and appropriate. EXTREMITIES: Incision is clean. His wound VAC is still in place . He is neurovascularly intact. No malrotation or shortening. IMPRESSION: 1. An 79-year-old male, postoperative day 14, left hip revision arthroplasty with Morganella morganii noted on culture, currently receiving appropriate antibiotics. Dr. Beaver is following. 2. Right-sided heart failure. 3. Chronic renal insufficiency, followed by Dr. Weinberg. We will continue to follow. He will require long-term care once he gets to the point where he no longer needs acute care and I think sometime after our stitches are removed and this wound is dry and no longer weeping, we can consider transfer to either LTAC or skilled facility. Job ID: [id number]
--- NOTE | 2020-06-17 12:22 | PRG ---
DATE OF SERVICE: 06/17/2020 SUBJECTIVE: An 79-year-old gentleman being seen for acute kidney injury. Patient denies any chest pain. OBJECTIVE: GENERAL: The patient awake, alert. VITAL SIGNS: Afebrile, pulse 99, breathing 16, blood pressure 132/61. HEENT: Head normocephalic and atraumatic. Eyes intact, no ulcers. Nose intact, no ulcers. Ears intact, no ulcers. NECK: Supple. No JVD. CHEST: Symmetrical and clear. CARDIOVASCULAR: Shows S1 and S2, no rub, no murmur. GASTROINTESTINAL: Abdomen is soft, bowel sounds positive. EXTREMITIES: Show no edema or ulcers. SKIN: Shows no rash or petechiae. MUSCULOSKELETAL: Shows no joint swelling or stiffness. GENITOURINARY: Shows no De or CVA tenderness. NEUROLOGIC: Motor intact. Cranial nerves intact. LABORATORY DATA: Hemoglobin 7.4, creatinine is 2.07. ASSESSMENT: 1. Acute kidney injury with chronic kidney disease stage 3, stable. 2. Hypertension, stable. 3. Congestive heart failure. Continue diuresis. 4. Anemia. Would recommend transfusing 1 unit of packed red blood cells. Job ID: [id number]
[2020-06-17] MEDS: Vancomycin HCl 500 MG in Sodium Chloride 0.9% 100 ML IVPB SCH (15:44)
[2020-06-17 15:51] LABS: Vancomycin, Trough 17.4 ug/mL
[2020-06-17] MEDS: Atorvastatin Calcium 20 MG TAB PO SCH (20:39)
[2020-06-17] MEDS: Furosemide 100 MG, Admixture Fee 1 EACH in Sodium Chloride 0.9% 90 ML IVPB SCH (23:57)
[2020-06-18] MEDS: HYDROcodone/Acetaminophen 5/325 mg Tablet PO SCH ×4 (02:00→21:14)
[2020-06-18 05:43] LABS: Anion Gap 15 mmol/L (10-20); BUN (Urea Nitrogen) 87 mg/dL (8.4-25.7); Calc. Creatinine Clearance 35 mL/min (70-130); Carbon Dioxide 26 mmol/L (23-31); Chloride 101 mmol/L (98-107); Estimated GFR-MDRD 26; Glucose 101 mg/dL (83-110); Potassium 3.2 mmol/L (3.5-5.1); Sodium 139 mmol/L (136-145)
[2020-06-18 05:44] LABS: #Eosinphils 0.1 thou/uL (0.0-0.7); #Lymphocytes 1.4 thou/uL (1.20-3.40); #Monocytes 1.2 thou/uL (0.11-0.59); #Neutrophils 10.2 thou/uL (1.40-6.50); %Basophils 0.3 % (0.0-1.0); %Eosinophils 0.8 % (0.0-10.0); %Lymphocytes 10.6 % (21.0-51.0); %Neutrophils 79.3 % (42.0-75.0); Hemoglobin 6.7 g/dL (14.0-18.0); Mean Corpuscular HGB CONC 29.5 g/dL (32.0-36.0); Mean Corpuscular Hemoglobin 25.5 pg (27.0-31.0); Mean Corpuscular Volume 86.4 fL (78.0-98.0); Mean Platelet Volume 8.5 fL (7.4-10.4); Platelet Count 413 thou/uL (130-400); RBC Distribution Width 18.4 % (11.5-14.5); Red Blood Cell (RBC) Count 2.64 mill/uL (4.70-6.10); White Blood Cell (WBC) Count 12.8 thou/uL (4.8-10.8)
[2020-06-18 07:41] LABS: Hemoglobin 7.2 g/dL (14.0-18.0)
[2020-06-18] MEDS: Magnesium Oxide 400 MG TAB PO SCH (08:13)
[2020-06-18] MEDS: Tamsulosin HCl 0.4 MG CAP PO SCH (08:13)
[2020-06-18] MEDS: Multivitamin W/ Minerals 1 TAB PO SCH (08:13)
[2020-06-18] MEDS: Senokot S 8.6-50 MG TAB PO SCH ×2 (08:13→21:11)
[2020-06-18] MEDS: Aspirin 81 mg Enteric Coated Tablet PO SCH (08:13)
[2020-06-18] MEDS: Ferrous Gluconate 324 MG TAB PO SCH ×2 (08:14→21:10)
[2020-06-18] MEDS: Enoxaparin Sodium 30 MG/0.3 ML SYRINGE SC SCH (08:15)
[2020-06-18] MEDS: Doxycycline 100 MG CAP PO SCH ×2 (08:15→21:14)
[2020-06-18] MEDS: Gabapentin 100 MG CAP PO SCH ×2 (08:15→21:10)
[2020-06-18] MEDS: Metolazone 5 MG TAB PO SCH (08:15)
[2020-06-18] MEDS: Cholecalciferol (Vitamin D3) 400 UNITS TAB PO SCH (08:15)
[2020-06-18] MEDS: MEROPENEM 1 GM/50 ML 1 GM in Premix Bag 1 BAG IVPB SCH (12:03)
[2020-06-18] MEDS ORDERED: Potassium Chloride 20 MEQ TAB PO SCH (12:15)
--- NOTE | 2020-06-18 12:44 | PRG ---
DATE OF SERVICE: 06/18/2020 SUBJECTIVE: An 79-year-old gentleman being seen for acute kidney injury. The patient denies nausea, vomiting, or chest pain. OBJECTIVE: GENERAL: On exam, the patient is awake and alert. VITAL SIGNS: Afebrile, pulse 75, breathing at 16, and blood pressure was 125/63. HEENT: Head normocephalic and atraumatic. Eyes intact, no ulcers. Nose intact, no ulcers. Ears intact, no ulcers. NECK: Supple. No JVD. CHEST: Symmetrical and clear. CARDIOVASCULAR: Shows S1 and S2, no rub, no murmur. GASTROINTESTINAL: Abdomen is soft, bowel sounds positive. EXTREMITIES: has 4+ edema. SKIN: Shows no rash or petechiae. MUSCULOSKELETAL: Shows no joint swelling or stiffness. GENITOURINARY: Shows no De or CVA tenderness. NEUROLOGIC: Motor intact. Cranial nerves intact. ASSESSMENT AND PLAN: 1. Acute kidney injury with chronic kidney disease, stage 4, due to cardiorenal syndrome. Continue diuresis. 2. Hypokalemia. Recommend 20 mEq of potassium. 3. Anemia. We would recommend transfusion again. . No indication for dialysis. Overall, the patient has poor prognosis. Doxycycline should be avoided with current underlying renal function. Job ID: [id number]
[2020-06-18] MEDS: Albumin 25% 25 GM/100 ML BOT IVPB SCH ×2 (14:34→21:10)
--- NOTE | 2020-06-18 16:51 | PDOC.HOSPP ---
- Subjective Subjective: pt remains of Lasix gtt. output is marginal. still having 3+ edema bilaterally. Renal function stable. Nephrology is following - Objective Vital Signs & Weight: Vital Signs (12 hours) Temp Pulse Resp BP BP Pulse Ox Pulse Ox 06/18/20 16:38 81 14 06/18/20 15:00 97.8 F 82 12 123/72 97 06/18/20 11:41 97.8 F 105 H 12 98/50 L 97 06/18/20 11:05 79 16 06/18/20 08:56 81 L 06/18/20 08:00 92 L 06/18/20 07:22 98.8 F 87 12 125/63 92 L 06/18/20 07:09 95 06/18/20 06:50 84 16 Pulse Ox Pulse Ox 06/18/20 16:38 06/18/20 15:00 06/18/20 11:41 06/18/20 11:05 06/18/20 08:56 81 L 75 L 06/18/20 08:00 06/18/20 07:22 06/18/20 07:09 06/18/20 06:50 Weight Admit Weight 195 lb Weight 221 lb 8 oz I&O: 06/17/20 06/18/20 06/19/20 06:59 06:59 06:59 Intake Total 1630 1490 Output Total 2400 1600 Balance -770 -110 Result Diagrams: 06/18/20 07:15 06/18/20 05:01 Hospitalist ROS - Medication Medications: Active Medications Generic Name Dose Route Start Last Admin Trade Name Freq PRN Reason Stop Dose Admin Acetaminophen 650 mg 06/03/20 16:52 06/07/20 17:51 Tylenol PO 650 mg Q4H PRN Administration Headache/Fever or Pain Hydrocodone Bitart/Acetaminophen 1 tab 06/12/20 21:00 06/18/20 14:33 [place] 5/325 PO 1 tab 0300,0900,1500,2100 SHORTY Administration Albumin Human 25 gm 06/18/20 14:00 06/18/20 14:34 Albumin 25% IVPB 06/19/20 08:01 25 gm Q6H SHORTY Administration Albuterol Sulfate 2.5 mg 06/03/20 18:12 06/06/20 14:10 Ventolin NEB 2.5 mg Q6H PRN Administration Dyspnea/Wheezing/SOB Albuterol/Ipratropium 3 ml 06/16/20 18:30 06/18/20 16:38 Duoneb NEB 3 ml [id number] SHORTY Administration Aspirin 81 mg 06/16/20 09:00 06/18/20 08:13 Ecotrin PO 81 mg DAILY SHORTY Administration Atorvastatin Calcium 20 mg 06/02/20 21:00 06/17/20 20:39 Lipitor PO 20 mg HS SHORTY Administration Cholecalciferol 800 units 06/07/20 09:00 06/18/20 08:15 Vitamin D PO 800 units DAILY SHORTY Administration Doxycycline Hyclate 100 mg 06/02/20 21:00 06/18/20 08:15 Vibramycin PO 100 mg BID SHORTY Administration Fentanyl 50 mcg 06/02/20 10:54 06/02/20 14:34 Sublimaze SLOW IVP 50 mcg Q30M PRN Administration Severe breakthrough pain Ferrous Gluconate 324 mg 06/03/20 21:00 06/18/20 08:14 Fergon PO 324 mg BID SHORTY Administration Gabapentin 100 mg 06/02/20 21:00 06/18/20 08:15 Neurontin PO 100 mg BID SHORTY Administration Meropenem 1 gm/ Device 50 mls @ 100 mls/hr 06/12/20 12:00 06/18/20 12:03 IVPB 50 mls 0000,1200 SHORTY Administration Vancomycin HCl 500 mg/ Sodium 100 mls @ 100 mls/hr 06/15/20 16:00 06/17/20 15 :44 Chloride IVPB 100 mls 1600 SHORTY Administration Furosemide 100 mg/ 100 mls @ 8 mls/hr 06/17/20 09:32 06/17/20 23:57 Miscellaneous Medication 1 IVPB 100 mls each/ Sodium Chloride INF SHORTY Administration Iron/Minerals/Multivitamins 1 tab 06/04/20 09:00 06/18/20 08:13 Theragran M PO 1 tab DAILY SHORTY Administration Magnesium Oxide 400 mg 06/11/20 09:00 06/18/20 08:13 Magnesium Oxide PO 400 mg DAILY SHORTY Administration Metolazone 5 mg 06/18/20 08:30 06/18/20 08:15 Zaroxolyn PO 5 mg 0830 SHORTY Administration Morphine Sulfate 4 mg 06/02/20 10:54 06/03/20 11:58 Morphine SLOW IVP 4 mg Q2H PRN Administration Severe Pain (7-10) Pantoprazole Sodium 40 mg 06/02/20 21:00 06/18/20 08:13 Protonix PO 40 mg BID SHORTY Administration Senna/Docusate Sodium 2 tab 06/03/20 21:00 06/18/20 08:13 Senokot S PO 2 tab BID SHORTY Administration Tamsulosin HCl 0.4 mg 06/03/20 09:00 06/18/20 08:13 Flomax PO 0.4 mg DAILY SHORTY Administration Hosp A/P - Plan - Exam General Appearance: awake alert, NAD ENT: normocephalic atraumatic Neck: supple, no JVD Respiratory: normal chest expansion, no tachypnea Cardiovascular: RRR, S1S2 noted. no murmur. Gastrointestinal: soft Extremities: 3+ LE edema Neurological: cranial nerve grossly intact, no new deficit Assessment and Plan: This is an 79 year old male with past medical history of multiple hip surgeries presenting with left thigh and hip pain NNEKA/CKD 4 - likely d/t cardiorenal syndrome --Cont IV diuresis, renal function stable. will add IV albumin to augment diuresis. --Appreciate Dr. Weinberg input Acute diastolic heart failure secondary to pulmonary edema --ECHO 06/03 showed severely elevated pulm artery pressure . Chest X ray shows widespread interstitial reticulonodular prominence --Cont IV diuresis, will add IV Albumin to augment diuresis. Follow renal funtion Scrotal swelling/edema - from fluid overload - testicular ultrasound showed possible cellulitis. CT abdomen showed edema, no air or gas. Urology consulted, thought no signs of Eladia's and from fluid - continue lasix drip, elevation. 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 Cont IV abx with Vanc and Meropenem until end june as per ID Anemia of chronic disease superimposed with blood loss anemia. - possibly blood loss related from surgery. s/p blood transfusion. Follow Hb. Hypocalcemia - possibly from vitamin D deficiency - resolved, - started on vitamin D supplementation given slightly low levels of 23 Physical deconditioning - continue PT and OT. Likely need rehab upon discharge
[2020-06-18] MEDS: Vancomycin HCl 500 MG in Sodium Chloride 0.9% 100 ML IVPB SCH (17:28)
[2020-06-18] MEDS: Atorvastatin Calcium 20 MG TAB PO SCH (21:09)
[2020-06-18] MEDS: Furosemide 100 MG, Admixture Fee 1 EACH in Sodium Chloride 0.9% 90 ML IVPB SCH (22:16)
[2020-06-19] MEDS: MEROPENEM 1 GM/50 ML 1 GM in Premix Bag 1 BAG IVPB SCH ×4 (00:43→23:54)
[2020-06-19] MEDS: Albumin 25% 25 GM/100 ML BOT IVPB SCH ×4 (02:02→18:08)
[2020-06-19] MEDS: HYDROcodone/Acetaminophen 5/325 mg Tablet PO SCH ×4 (05:09→20:11)
[2020-06-19 06:02] LABS: #Eosinphils 0.1 thou/uL (0.0-0.7); #Monocytes 1.1 thou/uL (0.11-0.59); #Neutrophils 8.5 thou/uL (1.40-6.50); %Basophils 0.2 % (0.0-1.0); %Eosinophils 0.6 % (0.0-10.0); %Lymphocytes 9.7 % (21.0-51.0); %Monocytes 10.1 % (0.0-10.0); %Neutrophils 79.4 % (42.0-75.0); Hemoglobin 6.7 g/dL (14.0-18.0); Mean Corpuscular HGB CONC 30.7 g/dL (32.0-36.0); Mean Corpuscular Hemoglobin 26.6 pg (27.0-31.0); Mean Corpuscular Volume 86.6 fL (78.0-98.0); Mean Platelet Volume 8.1 fL (7.4-10.4); Platelet Count 371 thou/uL (130-400); RBC Distribution Width 18.6 % (11.5-14.5); White Blood Cell (WBC) Count 10.8 thou/uL (4.8-10.8)
[2020-06-19 06:25] LABS: ALT (SGPT) 10 U/L (8-55); AST (SGOT) 13 U/L (5-34); Albumin 3.3 g/dL (3.4-4.8); Alkaline Phosphatase 80 U/L (40-110); Anion Gap 15 mmol/L (10-20); BUN (Urea Nitrogen) 88 mg/dL (8.4-25.7); Bilirubin, Total 0.5 mg/dL (0.2-1.2); Calc. Creatinine Clearance 35 mL/min (70-130); Carbon Dioxide 26 mmol/L (23-31); Chloride 100 mmol/L (98-107); Estimated GFR-MDRD 26; Globulin 1.9 g/dL (2.4-3.5); Glucose 86 mg/dL (83-110); Potassium 3.3 mmol/L (3.5-5.1); Protein, Total 5.2 g/dL (5.8-8.1); Sodium 138 mmol/L (136-145)
[2020-06-19] MEDS: Senokot S 8.6-50 MG TAB PO SCH ×2 (08:41→22:33)
[2020-06-19] MEDS: Multivitamin W/ Minerals 1 TAB PO SCH (08:41)
[2020-06-19] MEDS: Tamsulosin HCl 0.4 MG CAP PO SCH (08:41)
[2020-06-19] MEDS: Metolazone 5 MG TAB PO SCH (08:41)
[2020-06-19] MEDS: Aspirin 81 mg Enteric Coated Tablet PO SCH (08:42)
[2020-06-19] MEDS: Ferrous Gluconate 324 MG TAB PO SCH ×2 (08:42→20:09)
[2020-06-19] MEDS: Magnesium Oxide 400 MG TAB PO SCH (08:42)
[2020-06-19] MEDS: Doxycycline 100 MG CAP PO SCH ×2 (08:42→20:42)
[2020-06-19] MEDS: Gabapentin 100 MG CAP PO SCH ×2 (08:42→20:10)
[2020-06-19] MEDS: Cholecalciferol (Vitamin D3) 400 UNITS TAB PO SCH (08:42)
[2020-06-19] MEDS: Furosemide 100 MG, Admixture Fee 1 EACH in Sodium Chloride 0.9% 90 ML IVPB SCH (08:43)
[2020-06-19] MEDS ORDERED: Enoxaparin Sodium 40 MG/0.4 ML SYRINGE SC SCH (09:00)
[2020-06-19] MEDS ORDERED: Enoxaparin Sodium 30 MG/0.3 ML SYRINGE SC SCH (09:00)
[2020-06-19] MEDS ORDERED: Albuterol Sulfate 2.5 mg/3 ml Neb NEB PRN (10:23)
[2020-06-19] MEDS ORDERED: Iron Sucrose Complex 200 MG in Sodium Chloride 0.9% 100 ML IVPB SCH (10:30)
[2020-06-19] MEDS ORDERED: Iron, Sodium Ferric Gluconate 250 MG in Sodium Chloride 0.9% 100 ML IVPB SCH (10:45)
[2020-06-19] MEDS ORDERED: Budesonide 0.5 MG/2 ML NEB INH SCH (10:45)
--- NOTE | 2020-06-19 10:57 | RAD ---
Exam: Chest one view HISTORY:Hypoxia and shortness of breath. Comparison: 06/07/2020 FINDINGS: Cardiac silhouette:Cardiomegaly. Stable metallic coil projecting over the atrial appendage. Aorta: Atherosclerosis and elongation Pulmonary vessels: Normal Costophrenic angles: Clear LUNGS: Hyperinflated with chronic changes. No definite consolidation or masses. Lines and tubes: Stable left-sided PICC line Pneumothorax: None Osseous abnormalities: None IMPRESSION: No significant interval change. Chronic changes along parenchyma. Stable atherosclerosis.
--- NOTE | 2020-06-19 14:34 | PRG ---
DATE OF SERVICE: 06/19/2020 SUBJECTIVE: An 79-year-old gentleman, being seen for congestive heart failure and chronic kidney disease. The patient denied nausea, vomiting, or chest pain. OBJECTIVE: General: On exam, the patient is awake and alert. Vital Signs: Afebrile, pulse 94, breathing at 16, blood pressure . HEENT: Head normocephalic and atraumatic. Eyes intact, no ulcers. Nose intact, no ulcers. Ears intact, no ulcers. Neck: Supple. No JVD. Chest: Symmetrical and clear. Cardiovascular: Shows S1 and S2, no rub, no murmur. Gastrointestinal: Abdomen is soft, bowel sounds positive. Extremities: Show no edema or ulcers. Skin: Shows no rash or petechiae. Musculoskeletal: Shows no joint swelling or stiffness. Genitourinary: Shows no De or CVA tenderness. Neurologic: Motor intact. Cranial nerves intact. LABORATORY DATA: Showed hemoglobin 6.7. Creatinine 2.3. ASSESSMENT AND PLAN: 1. Chronic kidney disease, stage 4, stable. 2. Hypertension, stable. 3. Congestive heart failure. Increase Lasix mg/hour. Continue Zaroxolyn daily. 4. Anemia. Recommend transfusion. 5. Hypokalemia. Recommend potassium replacement. Prognosis is poor. No indication for dialysis yet. Job ID: [id number]
--- NOTE | 2020-06-19 14:56 | PDOC.HOSPP ---
- Subjective Subjective: Patient was seen examined at bedside. Patient was working with physical therapy , however this was limited due to his hypoxia. His oxygen dropped to the low 90 and in the high 80s. He is getting more short of breath. No significant improvement Tylenol for his lower extremity swelling. Patient currently is on IV Lasix 8 mg/h. His creatinines appears to be stable. His hemoglobin dropped down to 6.8. No evidence of acute bleeding noted. Discussed with nephrology Dr. Weinberg - Objective Vital Signs & Weight: Vital Signs (12 hours) Temp Pulse Resp BP BP Pulse Ox Pulse Ox 06/19/20 11:43 97 06/19/20 11:30 96 20 100 06/19/20 10:55 97.6 F 96 20 102/67 100 06/19/20 09:34 100 06/19/20 08:53 93 L 06/19/20 08:52 91 16 06/19/20 07:50 98.2 F 92 18 147/74 H 95 06/19/20 05:31 98.1 F 88 18 112/56 L 98 Pulse Ox 06/19/20 11:43 06/19/20 11:30 06/19/20 10:55 06/19/20 09:34 71 L 06/19/20 08:53 06/19/20 08:52 06/19/20 07:50 06/19/20 05:31 Weight Admit Weight 195 lb Weight 223 lb 6.169 oz I&O: 06/18/20 06/19/20 06/20/20 06:59 06:59 06:59 Intake Total 1490 800 Output Total 1600 2750 Balance -110 -1950 Result Diagrams: 06/19/20 05:50 06/19/20 05:50 Hospitalist ROS - Medication Medications: Active Medications Generic Name Dose Route Start Last Admin Trade Name Freq PRN Reason Stop Dose Admin Acetaminophen 650 mg 06/03/20 16:52 06/07/20 17:51 Tylenol PO 650 mg Q4H PRN Administration Headache/Fever or Pain Hydrocodone Bitart/Acetaminophen 1 tab 06/12/20 21:00 06/19/20 08:40 [place] 5/325 PO 1 tab 0300,0900,1500,2100 SHORTY Administration Albumin Human 25 gm 06/19/20 12:00 06/19/20 12:45 Albumin 25% IVPB 06/20/20 06:01 Not Given Q6HR SHORTY Albuterol Sulfate 2.5 mg 06/03/20 18:12 06/06/20 14:10 Ventolin NEB 2.5 mg Q6H PRN Administration Dyspnea/Wheezing/SOB Albuterol/Ipratropium 3 ml 06/16/20 18:30 06/19/20 11:30 Duoneb NEB 3 ml [id number] SHORTY Administration Aspirin 81 mg 06/16/20 09:00 06/19/20 08:42 Ecotrin PO 81 mg DAILY SHORTY Administration Atorvastatin Calcium 20 mg 06/02/20 21:00 06/18/20 21:09 Lipitor PO 20 mg HS SHORTY Administration Cholecalciferol 800 units 06/07/20 09:00 06/19/20 08:42 Vitamin D PO 800 units DAILY SHORTY Administration Doxycycline Hyclate 100 mg 06/02/20 21:00 06/19/20 08:42 Vibramycin PO 100 mg BID SHORTY Administration Enoxaparin Sodium 40 mg 06/19/20 09:00 06/19/20 08:42 Lovenox SC 40 mg 0900 SHORTY Administration Fentanyl 50 mcg 06/02/20 10:54 06/02/20 14:34 Sublimaze SLOW IVP 50 mcg Q30M PRN Administration Severe breakthrough pain Ferrous Gluconate 324 mg 06/03/20 21:00 06/19/20 08:42 Fergon PO 324 mg BID SHORTY Administration Gabapentin 100 mg 06/02/20 21:00 06/19/20 08:42 Neurontin PO 100 mg BID SHORTY Administration Meropenem 1 gm/ Device 50 mls @ 100 mls/hr 06/12/20 12:00 06/19/20 00:43 IVPB 50 mls 0000,1200 SHORTY Administration Vancomycin HCl 500 mg/ Sodium 100 mls @ 100 mls/hr 06/15/20 16:00 06/18/20 17 :28 Chloride IVPB 100 mls 1600 SHORTY Administration Furosemide 100 mg/ 100 mls @ 8 mls/hr 06/17/20 09:32 06/19/20 08:43 Miscellaneous Medication 1 IVPB 100 mls each/ Sodium Chloride INF SHORTY Administration Ferric Sodium Gluconate 120 mls @ 240 mls/hr 06/19/20 10:45 06/19/20 12:18 Complex 250 mg/ Sodium IVPB 06/19/20 15:00 120 mls Chloride NOW SHORTY Administration Iron/Minerals/Multivitamins 1 tab 06/04/20 09:00 06/19/20 08:41 Theragran M PO 1 tab DAILY SHORTY Administration Magnesium Oxide 400 mg 06/11/20 09:00 06/19/20 08:42 Magnesium Oxide PO 400 mg DAILY SHORTY Administration Metolazone 5 mg 06/18/20 08:30 06/19/20 08:41 Zaroxolyn PO 5 mg 0830 SHORTY Administration Morphine Sulfate 4 mg 06/02/20 10:54 06/03/20 11:58 Morphine SLOW IVP 4 mg Q2H PRN Administration Severe Pain (7-10) Pantoprazole Sodium 40 mg 06/02/20 21:00 06/19/20 08:42 Protonix PO 40 mg BID SHORTY Administration Senna/Docusate Sodium 2 tab 06/03/20 21:00 06/19/20 08:41 Senokot S PO 2 tab BID SHORTY Administration Tamsulosin HCl 0.4 mg 06/03/20 09:00 06/19/20 08:41 Flomax PO 0.4 mg DAILY SHORTY Administration Hosp A/P - Plan - Exam General Appearance: awake alert, NAD ENT: normocephalic atraumatic Neck: supple, no JVD Respiratory: normal chest expansion, no tachypnea Cardiovascular: RRR, S1S2 noted. no murmur. Gastrointestinal: soft Extremities: 3+ LE edema Neurological: cranial nerve grossly intact, no new deficit Assessment and Plan: This is an 79 year old male with past medical history of multiple hip surgeries presenting with left thigh and hip pain NNEKA/CKD 4 - likely d/t cardiorenal syndrome --Cont IV diuresis with Lasix gtt, renal function stable. cont IV albumin to augment diuresis. --Appreciate Dr. Weinberg input Acute diastolic heart failure secondary to pulmonary edema --ECHO 06/03 showed severely elevated pulm artery pressure . Chest X ray shows widespread interstitial reticulonodular prominence --Cont IV diuresis, will add IV Albumin to augment diuresis. Follow renal funtion Acute hypoxic respiratory failure --wean O2 as aurea. cont breathing treatments. Add Pulmicort nebs. IV diuresis as above Scrotal swelling/LE edema - from fluid overload - testicular ultrasound showed possible cellulitis. CT abdomen showed edema, no air or gas. Urology consulted, thought no signs of Eladia's and from fluid - continue lasix drip as above, legs elevation. 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 Cont IV abx with Vanc and Meropenem until end of June as per ID Anemia of chronic disease superimposed with blood loss anemia, and iron def anemia --possibly blood loss related from surgery. s/p blood transfusion. Follow Hb. Will transfuse him another unit today and Venofer. --Check stool for occult blood Hypocalcemia - possibly from vitamin D deficiency - resolved, - started on vitamin D supplementation given slightly low levels of 23 Physical deconditioning - continue PT and OT. Likely need rehab upon discharge
[2020-06-19] MEDS ORDERED: Potassium Chloride 20 MEQ TAB PO SCH (15:00)
[2020-06-19] MEDS: Budesonide 0.5 MG/2 ML NEB INH SCH (18:11)
[2020-06-19] MEDS: Vancomycin HCl 500 MG in Sodium Chloride 0.9% 100 ML IVPB SCH (19:22)
[2020-06-19] MEDS ORDERED: Bumetanide 1 MG/4 ML VIAL IVP SCH (20:00)
[2020-06-19] MEDS: Atorvastatin Calcium 20 MG TAB PO SCH (20:15)
[2020-06-20] MEDS: Albumin 25% 25 GM/100 ML BOT IVPB SCH ×2 (00:02→05:23)
[2020-06-20] MEDS: Furosemide 100 MG, Admixture Fee 1 EACH in Sodium Chloride 0.9% 90 ML IVPB SCH ×2 (00:59→16:21)
[2020-06-20] MEDS: HYDROcodone/Acetaminophen 5/325 mg Tablet PO SCH ×4 (04:06→21:02)
[2020-06-20 05:49] LABS: #Eosinphils 0.1 thou/uL (0.0-0.7); #Lymphocytes 0.8 thou/uL (1.20-3.40); #Monocytes 0.9 thou/uL (0.11-0.59); #Neutrophils 9.5 thou/uL (1.40-6.50); %Basophils 0.1 % (0.0-1.0); %Lymphocytes 7.3 % (21.0-51.0); %Monocytes 8.1 % (0.0-10.0); %Neutrophils 83.5 % (42.0-75.0); Hemoglobin 7.5 g/dL (14.0-18.0); Mean Corpuscular HGB CONC 31.7 g/dL (32.0-36.0); Mean Corpuscular Hemoglobin 27.1 pg (27.0-31.0); Mean Corpuscular Volume 85.4 fL (78.0-98.0); Mean Platelet Volume 8.6 fL (7.4-10.4); Platelet Count 323 thou/uL (130-400); RBC Distribution Width 17.8 % (11.5-14.5); Red Blood Cell (RBC) Count 2.76 mill/uL (4.70-6.10); White Blood Cell (WBC) Count 11.4 thou/uL (4.8-10.8)
[2020-06-20 06:17] LABS: Anion Gap 17 mmol/L (10-20); BUN (Urea Nitrogen) 83 mg/dL (8.4-25.7); Calc. Creatinine Clearance 36 mL/min (70-130); Calcium 8.1 mg/dL (7.8-10.44); Carbon Dioxide 25 mmol/L (23-31); Chloride 100 mmol/L (98-107); Estimated GFR-MDRD 26; Glucose 83 mg/dL (83-110); Magnesium 2.5 mg/dL (1.6-2.6); Potassium 3.3 mmol/L (3.5-5.1); Sodium 139 mmol/L (136-145)
[2020-06-20] MEDS ORDERED: Potassium Chloride 20 MEQ TAB PO SCH ×2 (08:00→11:15)
[2020-06-20] MEDS: Doxycycline 100 MG CAP PO SCH ×2 (08:35→21:02)
[2020-06-20] MEDS: Ferrous Gluconate 324 MG TAB PO SCH ×2 (08:35→21:02)
[2020-06-20] MEDS: Senokot S 8.6-50 MG TAB PO SCH ×3 (08:35→21:03)
[2020-06-20] MEDS: Multivitamin W/ Minerals 1 TAB PO SCH (08:35)
[2020-06-20] MEDS: Enoxaparin Sodium 30 MG/0.3 ML SYRINGE SC SCH (08:35)
[2020-06-20] MEDS: Magnesium Oxide 400 MG TAB PO SCH (08:36)
[2020-06-20] MEDS: Gabapentin 100 MG CAP PO SCH ×2 (08:36→21:02)
[2020-06-20] MEDS: Metolazone 5 MG TAB PO SCH (08:36)
[2020-06-20] MEDS: Tamsulosin HCl 0.4 MG CAP PO SCH (08:36)
[2020-06-20] MEDS: Cholecalciferol (Vitamin D3) 400 UNITS TAB PO SCH (08:43)
[2020-06-20] MEDS: Budesonide 0.5 MG/2 ML NEB INH SCH ×2 (09:25→20:04)
--- NOTE | 2020-06-20 09:38 | PRG ---
DATE OF SERVICE: 06/20/2020 SUBJECTIVE: Mr. Mart states he was short of breath yesterday. He feels better today. Still very edematous. OBJECTIVE: VITAL SIGNS: Blood pressure is variable 137/68 earlier than 170/76; pulse in the 90s, it is regular. LUNGS: Clear. CARDIAC: Normal S1. Normal S2. ABDOMEN: Obese, nontender. EXTREMITIES: Still [id number] edema. LABORATORY DATA: The patient's hemoglobin is up to 7.5, it was 6.7 yesterday from what I can tell. He has actually been transfused a total of 3 units of red cells. ASSESSMENT: 1. Diastolic congestive heart failure, chronic, very difficult to treat. 2. Renal failure, stage 4. 3. Recurrent iron deficiency anemia. He has undergone GI evaluations in the past. PLAN: 1. Agree with intravenous iron. 2. I am going to hold aspirin for now. 3. Reduce Lovenox. 4. Prognosis is guarded. Job ID: [id number]
[2020-06-20] MEDS: Fluticasone Propionate Nasal Spray 16 gm Bottle NASAL SCH (09:52)
--- NOTE | 2020-06-20 11:18 | PDOC.HOSPP ---
- Subjective Subjective: pt's breathing has improved. he has net neg fluid balance of 1.9L Hb went up 7.6 after transfusion, would like to keep his Hb>8 still has significant LE edema. Pt of Dr. Shipman, will consult him as per pt's request. - Objective Vital Signs & Weight: Vital Signs (12 hours) Temp Pulse Resp BP BP Pulse Ox 06/20/20 10:40 80 20 92 L 06/20/20 09:26 94 24 H 97 06/20/20 09:25 94 24 H 97 06/20/20 07:20 98.2 F 92 18 170/76 H 100 06/20/20 04:10 97.8 F 87 18 137/68 97 06/20/20 01:56 99 06/20/20 01:50 81 16 99 06/20/20 00:04 97.5 F L 84 18 145/70 H 98 Weight Admit Weight 195 lb Weight 222 lb 3.2 oz I&O: 06/19/20 06/20/20 06/21/20 06:59 06:59 06:59 Intake Total 800 1756 Output Total 2750 3625 Balance -1950 -1869 Result Diagrams: 06/20/20 05:30 06/20/20 05:30 Hospitalist ROS - Medication Medications: Active Medications Generic Name Dose Route Start Last Admin Trade Name Freq PRN Reason Stop Dose Admin Acetaminophen 650 mg 06/03/20 16:52 06/07/20 17:51 Tylenol PO 650 mg Q4H PRN Administration Headache/Fever or Pain Hydrocodone Bitart/Acetaminophen 1 tab 06/12/20 21:00 06/20/20 08:44 [place] 5/325 PO 1 tab 0300,0900,1500,2100 SHORTY Administration Albuterol/Ipratropium 3 ml 06/16/20 18:30 06/20/20 10:40 Duoneb NEB 3 ml [id number] SHORTY Administration Atorvastatin Calcium 20 mg 06/02/20 21:00 06/19/20 20:15 Lipitor PO 20 mg HS SHORTY Administration Budesonide 0.5 mg 06/19/20 18:30 06/20/20 09:25 Pulmicort Neb Solution INH 0.5 mg BID-RT SHORTY Administration Cholecalciferol 800 units 06/07/20 09:00 06/20/20 08:43 Vitamin D PO 800 units DAILY SHORTY Administration Doxycycline Hyclate 100 mg 06/02/20 21:00 06/20/20 08:35 Vibramycin PO 100 mg BID SHORTY Administration Enoxaparin Sodium 30 mg 06/20/20 09:00 06/20/20 08:35 Lovenox SC 30 mg 0900 SHORTY Administration Fentanyl 50 mcg 06/02/20 10:54 06/02/20 14:34 Sublimaze SLOW IVP 50 mcg Q30M PRN Administration Severe breakthrough pain Ferrous Gluconate 324 mg 06/03/20 21:00 06/20/20 08:35 Fergon PO 324 mg BID SHORTY Administration Fluticasone Propionate 0 gm 06/20/20 09:00 06/20/20 09:52 Flonase Nasal [place] NASAL 2 spr DAILY SHORTY Administration Gabapentin 100 mg 06/02/20 21:00 06/20/20 08:36 Neurontin PO 100 mg BID SHORTY Administration Meropenem 1 gm/ Device 50 mls @ 100 mls/hr 06/12/20 12:00 06/19/20 23:54 IVPB 50 mls 0000,1200 SHORTY Administration Vancomycin HCl 500 mg/ Sodium 100 mls @ 100 mls/hr 06/15/20 16:00 06/19/20 19 :22 Chloride IVPB 100 mls 1600 SHORTY Administration Furosemide 100 mg/ 100 mls @ 8 mls/hr 06/17/20 09:32 06/20/20 00:59 Miscellaneous Medication 1 IVPB 100 mls each/ Sodium Chloride INF SHORTY Administration Iron/Minerals/Multivitamins 1 tab 06/04/20 09:00 06/20/20 08:35 Theragran M PO 1 tab DAILY SHORTY Administration Magnesium Oxide 400 mg 06/11/20 09:00 06/20/20 08:36 Magnesium Oxide PO 400 mg DAILY SHORTY Administration Metolazone 5 mg 06/18/20 08:30 06/20/20 08:36 Zaroxolyn PO 5 mg 0830 SHORTY Administration Morphine Sulfate 4 mg 06/02/20 10:54 06/03/20 11:58 Morphine SLOW IVP 4 mg Q2H PRN Administration Severe Pain (7-10) Pantoprazole Sodium 40 mg 06/02/20 21:00 06/20/20 08:35 Protonix PO 40 mg BID SHORTY Administration Senna/Docusate Sodium 2 tab 06/03/20 21:00 06/20/20 08:38 Senokot S PO Not Given BID SHORTY Tamsulosin HCl 0.4 mg 06/03/20 09:00 06/20/20 08:36 Flomax PO 0.4 mg DAILY SOHRTY Administration Hosp A/P - Plan - Exam General Appearance: awake alert, NAD ENT: normocephalic atraumatic Neck: supple, no JVD Respiratory: normal chest expansion, no tachypnea Cardiovascular: RRR, S1S2 noted. no murmur. Gastrointestinal: soft Extremities: 3+ LE edema Neurological: cranial nerve grossly intact, no new deficit Assessment and Plan: This is an 79 year old male with past medical history of multiple hip surgeries presenting with left thigh and hip pain NNEKA/CKD 4 - likely d/t cardiorenal syndrome --Cont IV diuresis with Lasix gtt, renal function stable. s/p IV Albumin x 8 doses, output improved. Maintain neg fluid balance --Appreciate Dr. Weinberg input Acute diastolic heart failure secondary to pulmonary edema --ECHO 06/03 showed severely elevated pulm artery pressure . Chest X ray shows widespread interstitial reticulonodular prominence --Cont IV diuresis with Lasix gtt. S/p Albumin helped augment diuresis. Follow renal funtion --Low sodium diet, maintain neg fluid balance Acute hypoxic respiratory failure --secondary to fluid retention. Wean O2 as aurae. cont breathing treatments. Add Pulmicort nebs. IV diuresis as above --Pt of Dr. Shipman, will consult him as per pt's request Scrotal swelling/LE edema - from fluid overload --testicular ultrasound showed possible cellulitis. CT abdomen showed edema, no air or gas. Urology consulted, thought no signs of Eladia's and from fluid --continue lasix drip as above, legs elevation. --Supportive cares. 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 Cont IV abx with Vanc and Meropenem until end of June as per ID Anemia of chronic disease superimposed with blood loss anemia, and iron def anemia --possibly blood loss related from surgery. s/p blood transfusions. s/p IV Venofer --Transfuse another unit to keep Hb>8. ASA was discontinued and Lovenox dosage adjusted by cardiology --Pt had GI workup in the past. No evidence of acute bleeding --Monitor H/H Hypocalcemia - possibly from vitamin D deficiency --resolved, - started on vitamin D supplementation given slightly low levels of 23 Physical deconditioning --continue PT and OT. Likely need rehab upon discharge
[2020-06-20] MEDS: MEROPENEM 1 GM/50 ML 1 GM in Premix Bag 1 BAG IVPB SCH (12:14)
--- NOTE | 2020-06-20 14:51 | PRG ---
DATE OF SERVICE: 06/20/2020 SUBJECTIVE: A well-built male, seen at the bedside. Complains of shortness of breath and fluid overload. No nausea, vomiting, or chest pain. OBJECTIVE: GENERAL: This is a well-built male, in no apparent distress. VITAL SIGNS: Temperature 98.1, pulse 99, respiratory rate 18, blood pressure 135/66. HEENT: Atraumatic and normocephalic. NECK: Supple. CVS: S1 and S2. Rate and rhythm regular. RESPIRATORY: Clear. GI: Abdomen is soft. MUSCULOSKELETAL: 1+ edema. DERMATOLOGIC: No skin rash. NEUROLOGIC: Alert and awake. PSYCHIATRIC: Normal mood and affect. LABORATORY DATA: Potassium 3.3, BUN is 83, and creatinine is 2.4. ASSESSMENT AND PLAN: 1. Acute kidney injury on chronic kidney stage 4. Fluid overload on Lasix now. 2. Hypertension. 3. Cardiorenal syndrome. 4. Anemia. 5. Hypokalemia. 6. Edema. 7. Continue close monitor, renal function, and cardiac function, and we will follow. Job ID: [id number]
--- NOTE | 2020-06-20 16:20 | SPC ---
PROCEDURE: SPC CVP LINE PICC COMP REPLACE PROVIDED CLINICAL HISTORY: Patient needs long-term IV antibiotics. Replacement of left upper extremity PICC line requested. COMPARISON: None TECHNIQUE: After informed consent was obtained, the patient was placed on the angiography table in supine positi on. The indwelling left upper extremity PICC line and surrounding area were meticulously prepped and draped in usual sterile fashion. The PICC line was withdrawn and then cut and exchanged over a 0. 018 inch guidewire for a 5 [place] peel-away sheath. The catheter was trimmed to the appropriate length and placed over the guidewire with the tip positio gina overlying the proximal SVC. Peel-away sheath and guidewire were removed. Each port on the double lumen PICC line was accessed and aspirated/flushed easily. The catheter was secured in place u tilizing a dry sterile dressing. Patient tolerated the procedure well and without immediate complication. Fluoroscopy: Time-0 minutes Dose-47 mGy centimeter squared IMPRESSION: Technically successful replacement of a dual lumen 5 [place] 50 cm left upper extremity PICC line.
[2020-06-20 17:03] LABS: Vancomycin, Trough 19.4 ug/mL
[2020-06-20] MEDS ORDERED: methylPREDNISolone Sod Succ/PF 125 MG/2 ML VIAL IVP SCH (17:15)
[2020-06-20] MEDS: Vancomycin HCl 500 MG in Sodium Chloride 0.9% 100 ML IVPB SCH (17:16)
[2020-06-20 17:36] LABS: Actual Bicarbonate (HCO3a) 25.9 mEq/L (22-28); Base Excess (BEa) 2.6 mEq/L (-2.0 to +3.0); CO2 Tension 34.7 mmHg (35.0-45.0); Calcium, Ionized (arterial) 1.06 mmol/L (1.12-1.30); Carboxyhemoglobin (COHb) 1.3 gm% (0.0-3.0); Hemoglobin (Hb) 8.7 g/dL (14.0-18.0); O2 Tension (PaO2), arterial 72.7 mmHg (> 60.0); Potassium - ABG Lab 3.87 mmol/L (3.70-5.30); pH, Arterial 7.49 (7.35-7.45)
[2020-06-20 17:38] LABS: ALV-art Gradient 140.605 (0-20); Puncture Site RRA
[2020-06-20] MEDS ORDERED: Bumetanide 1 MG/4 ML VIAL IVP SCH (19:00)
[2020-06-20] MEDS: Atorvastatin Calcium 20 MG TAB PO SCH (21:02)
[2020-06-20 22:11] LABS: Hemoglobin 8.3 g/dL (14.0-18.0)
--- NOTE | 2020-06-20 23:55 | CON ---
DATE OF CONSULTATION: 06/20/2020 Mr. Mart is a very pleasant 79-year-old gentleman, who in the recent past has been in the hospital more than he has been out of the hospital. He has had a great deal of difficulty with diastolic heart failure. He also has underlying obstructive lung disease. He is followed by Dr. Gonzalez and myself. He has recently had multiple surgeries on his hip. I was consulted because of ongoing shortness of breath. He has been in the hospital since June 02. PAST MEDICAL HISTORY: Remarkable for: 1. Chronic hypoxemic respiratory failure with oxygen at home. 2. History of atrial fibrillation. 3. History of a Watchman. 4. History of BPH. 5. History of femoral neck fracture in January with a postop infection. 6. History of chronic kidney disease. 7. History of sleep apnea. 8. History of anemia. 9. History of cardiac ablation for atrial fibrillation. SOCIAL HISTORY: He is a former smoker, former drinker. His does a great job taking care of him. ALLERGIES: HE HAS NO DRUG ALLERGIES. MEDICATIONS: Have been reviewed. REVIEW OF SYSTEMS: Ten points remarkable only for shortness of breath. PHYSICAL EXAMINATION: GENERAL: In no distress. He is able to talk in complete sentences. VITAL SIGNS: Respiratory rate was 18 to 20. He is afebrile. Heart rate is 106 , oximetry is in the high 90s on a face mask. Blood pressure is 136/71. HEENT: Pupils are equal. Sclerae are anicteric. He appears tired compared to the last time I saw him. LUNGS: Remarkable for diffuse wheezes. HEART: Regular rhythm. ABDOMEN: Soft and nontender. EXTREMITIES: Without clubbing, cyanosis, or edema. LABORATORY DATA: White count 11.4, hemoglobin 7.5, platelets 323. Electrolytes are unremarkable. Creatinine is 2.4. He has a hip swab that grew out Morganella on the . He had a urine culture that grew out Pseudomonas on . In April, he had MRSA in his hip; in February, he had MRSA in his hip; and in January, he had MRSA on blood cultures as well as his joint. IMPRESSION: 1. Diastolic heart failure. There is some clinical evidence of fluid retention. This is a difficult problem, especially with his chronic kidney disease. 2. Chronic obstructive pulmonary disease with ongoing bronchospasm. He tends to clear up with steroids. His chest radiograph was done yesterday does not show significant amount of pulmonary edema. We will switch him from albuterol alone to ipratropium and albuterol. 3. He probably would benefit from at least one dose of IV steroids at this time. We will follow. TIME SPENT: This is a 50-minute consult, 50% of the time spent on the unit coordinating care. Job ID: [id number] [facility]
[2020-06-21] MEDS: MEROPENEM 1 GM/50 ML 1 GM in Premix Bag 1 BAG IVPB SCH ×2 (00:27→12:27)
[2020-06-21] MEDS: HYDROcodone/Acetaminophen 5/325 mg Tablet PO SCH ×4 (03:24→20:28)
[2020-06-21 04:39] LABS: #Lymphocytes 0.5 thou/uL (1.20-3.40); #Monocytes 0.1 thou/uL (0.11-0.59); #Neutrophils 8.7 thou/uL (1.40-6.50); %Basophils 0.1 % (0.0-1.0); %Eosinophils 0.1 % (0.0-10.0); %Lymphocytes 4.9 % (21.0-51.0); %Neutrophils 93.9 % (42.0-75.0); Hemoglobin 8.3 g/dL (14.0-18.0); Mean Corpuscular HGB CONC 31.8 g/dL (32.0-36.0); Mean Corpuscular Hemoglobin 27.3 pg (27.0-31.0); Mean Corpuscular Volume 85.7 fL (78.0-98.0); Mean Platelet Volume 8.9 fL (7.4-10.4); Platelet Count 291 thou/uL (130-400); Red Blood Cell (RBC) Count 3.04 mill/uL (4.70-6.10); White Blood Cell (WBC) Count 9.2 thou/uL (4.8-10.8)
[2020-06-21 05:14] LABS: Anion Gap 17 mmol/L (10-20); BUN (Urea Nitrogen) 91 mg/dL (8.4-25.7); Calc. Creatinine Clearance 39 mL/min (70-130); Calcium 8.5 mg/dL (7.8-10.44); Carbon Dioxide 26 mmol/L (23-31); Chloride 101 mmol/L (98-107); Estimated GFR-MDRD 30; Glucose 181 mg/dL (83-110); Magnesium 2.6 mg/dL (1.6-2.6); Potassium 3.4 mmol/L (3.5-5.1); Sodium 141 mmol/L (136-145)
[2020-06-21] MEDS: Furosemide 100 MG, Admixture Fee 1 EACH in Sodium Chloride 0.9% 90 ML IVPB SCH ×2 (05:55→17:51)
--- NOTE | 2020-06-21 07:56 | RAD ---
EXAM: Single view of the chest HISTORY: Shortness of breath and CHF COMPARISON: 06/07/2020 FINDINGS: Single view of the chest shows an enlarged but stable cardiomediastinal silhouette. Athero sclerotic calcifications are seen in the aorta. Increased interstitial markings are present. There appear to be vascular coils chest to the left of midline. The PICC line is unchanged in position. The re may be superimposed peripheral airspace opacities in the lungs. Degenerative changes are seen in the spine. IMPRESSION: Stable exam
[2020-06-21] MEDS: Budesonide 0.5 MG/2 ML NEB INH SCH ×2 (08:17→18:23)
[2020-06-21] MEDS ORDERED: Potassium Chloride 20 MEQ TAB PO SCH (08:30)
[2020-06-21] MEDS: Ferrous Gluconate 324 MG TAB PO SCH ×2 (09:52→20:28)
[2020-06-21] MEDS: Magnesium Oxide 400 MG TAB PO SCH (09:52)
[2020-06-21] MEDS: Multivitamin W/ Minerals 1 TAB PO SCH (09:52)
[2020-06-21] MEDS: Metolazone 5 MG TAB PO SCH (09:52)
[2020-06-21] MEDS: Doxycycline 100 MG CAP PO SCH ×2 (09:52→20:27)
[2020-06-21] MEDS: Enoxaparin Sodium 30 MG/0.3 ML SYRINGE SC SCH (09:52)
[2020-06-21] MEDS: Tamsulosin HCl 0.4 MG CAP PO SCH (09:52)
[2020-06-21] MEDS: Gabapentin 100 MG CAP PO SCH ×2 (09:52→20:28)
[2020-06-21] MEDS: Cholecalciferol (Vitamin D3) 400 UNITS TAB PO SCH (09:52)
[2020-06-21] MEDS: Senokot S 8.6-50 MG TAB PO SCH ×2 (09:53→20:28)
--- NOTE | 2020-06-21 10:07 | PRG ---
DATE OF SERVICE: 06/21/2020 This is Drea Calzada PA-C dictating a report for Wilver Salamanca MD. SUBJECTIVE: The patient is an 79-year-old male status post left hip revision hemiarthroplasty. He is now postop day 18. As of last night, the patient was transferred down to the [facility] for breathing difficulties. He does have history of right-sided heart failure. He has been seen by Dr. Shipman. He is stable at this time. Scrotal swelling has decreased. The patient has no complaints, currently at bedside. OBJECTIVE: VITAL SIGNS: Currently are pulse of 91, blood pressure is 138/73, respiratory rate of 22, and temperature of 97.8. GENERAL: The patient is awake and alert. He is sitting up in bed eating breakfast. EXTREMITIES: Evaluation of his left lower extremity shows knee immobilizer in place. He does have decreased swelling in his left lower extremity. Distal neurovascular status intact. PLAN: The patient is status post left hip melissa-revision, growing out Morganella morganii. Currently on antibiotics per Dr. Beaver. Continue PT, OT. Continue Dr. Shipman regarding dyspnea and continue renal failure recommendations per Dr. Weinberg. The patient seems to be doing well, increasing his activity with PT. Job ID: [id number]
--- NOTE | 2020-06-21 10:13 | PRG ---
DATE OF SERVICE: 06/21/2020 SUBJECTIVE: Mr. Mart was moved to the intermediate care unit. He is receiving very high doses of diuretics. OBJECTIVE: VITAL SIGNS: Respiratory rate is 22, oxygen saturation is 99%, and blood pressure is 138/70. LUNGS: Clear anteriorly and laterally. CARDIAC: Normal S1 and S2. ABDOMEN: Still has fluid. EXTREMITIES: Still had severe edema. PERTINENT LABORATORY DATA: Hemoglobin was 8.3. BNP was 1996. ASSESSMENT: 1. Congestive heart failure, diastolic, refractory to medicines. 2. Renal insufficiency, stable. Creatinine 2.16. GFR is 30. PLAN: 1. He is on high-dose intravenous Lasix of continuous infusion 8 mg an hour. 2. Daily Zaroxolyn. 3. Urine output appears good on this regimen. Despite this, for some reason, the weights do not seem to be going down, which is puzzling. Continue aggressive diuresis. Job ID: [id number]
[2020-06-21] MEDS: Fluticasone Propionate Nasal Spray 16 gm Bottle NASAL SCH (10:22)
--- NOTE | 2020-06-21 13:12 | PRG ---
DATE OF SERVICE: 06/21/2020 SUBJECTIVE: Patient was seen and examined at bedside and overnight events noted. Patient denies any shortness of breath or chest pain or palpitation. No history of nausea or vomiting or diarrhea or fever or chills or cramps. OBJECTIVE: GENERAL: This is a well-built male, in no apparent distress. VITAL SIGNS: Temperature 97.8. Heart rate 95. Respiratory rate 18. Blood pressure 132/65. HEENT: Atraumatic, normocephalic. Oral mucosa is moist NECK: Supple. CARDIOVASCULAR: S1, S2 heard. Rate and rhythm regular. RESPIRATORY: Clear to auscultation. GASTROINTESTINAL: Abdomen is soft. MUSCULOSKELETAL: No tenderness. No edema. DERMATOLOGIC: No skin rash. NEUROLOGIC: Alert and awake and oriented X3. No focal neurologic deficits. Moving all the extremities. PSYCHIATRIC: Mood and affect normal. LABORATORY DATA: Potassium 3.4, BUN is 91, creatinine is 2.1. ASSESSMENT AND PLAN: 1. Acute kidney injury on chronic kidney disease, stage 4. Creatinine is better. BUN higher, most likely from diuresis and steroids. 2. Cardiorenal syndrome. 3. Fluid overload. 4. Hypertension. 5. Anemia. 6. Hypokalemia. 7. Edema. He is on negative fluid balance. Limit fluid intake if tolerated. Continue on cardiac medications and follow with Cardiology. Renal function seems to be stable and slightly better. We will follow. Job ID: [id number]
[2020-06-21] MEDS: Vancomycin HCl 500 MG in Sodium Chloride 0.9% 100 ML IVPB SCH (15:49)
--- NOTE | 2020-06-21 16:42 | PDOC.HOSPP ---
- Subjective Subjective: Good urine output, neg 2L weight is going down. LE edema appears improved. Hb 8.3 - Objective Vital Signs & Weight: Vital Signs (12 hours) Temp Pulse Pulse Pulse Pulse Resp BP 06/21/20 15:36 99.6 F 06/21/20 14:33 94 19 06/21/20 14:00 99.4 F 06/21/20 11:04 96 21 H 06/21/20 10:19 91 97 133/70 06/21/20 10:16 97 91 06/21/20 08:19 06/21/20 08:17 91 22 H 06/21/20 08:10 91 22 H 06/21/20 08:00 06/21/20 07:36 97.8 F BP BP Pulse Ox Pulse Ox Pulse Ox Pulse Ox 06/21/20 15:36 06/21/20 14:33 96 06/21/20 14:00 06/21/20 11:04 92 L 06/21/20 10:19 129/98 H 94 L 88 L 06/21/20 10:16 129/98 H 133/70 88 L 94 L 06/21/20 08:19 99 06/21/20 08:17 99 06/21/20 08:10 99 06/21/20 08:00 97 06/21/20 07:36 Weight Admit Weight 195 lb Weight 220 lb 9.6 oz Most Recent Monitor Data Heart Rate from ECG 93 NIBP 139/72 NIBP BP-Mean 94 Respiration from ECG 18 SpO2 96 I&O: 06/20/20 06/21/20 06/22/20 06:59 06:59 06:59 Intake Total 1756 1420 Output Total 7555 1671 Balance -9088 -4057 Result Diagrams: 06/21/20 04:25 06/21/20 04:25 Hospitalist ROS - Medication Medications: Active Medications Generic Name Dose Route Start Last Admin Trade Name Freq PRN Reason Stop Dose Admin Acetaminophen 650 mg 06/03/20 16:52 06/07/20 17:51 Tylenol PO 650 mg Q4H PRN Administration Headache/Fever or Pain Hydrocodone Bitart/Acetaminophen 1 tab 06/12/20 21:00 06/21/20 15:48 [place] 5/325 PO 1 tab 0300,0900,1500,2100 SHORTY Administration Albuterol/Ipratropium 3 ml 06/20/20 18:30 06/21/20 14:33 Duoneb NEB 3 ml [id number] SHORTY Administration Atorvastatin Calcium 20 mg 06/02/20 21:00 06/20/20 21:02 Lipitor PO 20 mg HS SHORTY Administration Budesonide 0.5 mg 06/19/20 18:30 06/21/20 08:17 Pulmicort Neb Solution INH 0.5 mg BID-RT SHORTY Administration Cholecalciferol 800 units 06/07/20 09:00 06/21/20 09:52 Vitamin D PO 800 units DAILY SHORTY Administration Doxycycline Hyclate 100 mg 06/02/20 21:00 06/21/20 09:52 Vibramycin PO 100 mg BID SHORTY Administration Enoxaparin Sodium 30 mg 06/20/20 09:00 06/21/20 09:52 Lovenox SC 30 mg 0900 SHORTY Administration Fentanyl 50 mcg 06/02/20 10:54 06/02/20 14:34 Sublimaze SLOW IVP 50 mcg Q30M PRN Administration Severe breakthrough pain Ferrous Gluconate 324 mg 06/03/20 21:00 06/21/20 09:52 Fergon PO 324 mg BID SHORTY Administration Fluticasone Propionate 0 gm 06/20/20 09:00 06/21/20 10:22 Flonase Nasal [place] NASAL 2 spr DAILY SHORTY Administration Gabapentin 100 mg 06/02/20 21:00 06/21/20 09:52 Neurontin PO 100 mg BID SHORTY Administration Meropenem 1 gm/ Device 50 mls @ 100 mls/hr 06/12/20 12:00 06/21/20 12:27 IVPB 50 mls 0000,1200 SHORTY Administration Vancomycin HCl 500 mg/ Sodium 100 mls @ 100 mls/hr 06/15/20 16:00 06/21/20 15 :49 Chloride IVPB 100 mls 1600 SHORTY Administration Furosemide 100 mg/ 100 mls @ 8 mls/hr 06/17/20 09:32 06/21/20 05:55 Miscellaneous Medication 1 IVPB 100 mls each/ Sodium Chloride INF SHORTY Administration Iron/Minerals/Multivitamins 1 tab 06/04/20 09:00 06/21/20 09:52 Theragran M PO 1 tab DAILY SHORTY Administration Magnesium Oxide 400 mg 06/11/20 09:00 09/01/20 09:52 Magnesium Oxide PO 400 mg DAILY SHORTY Administration Metolazone 5 mg 06/18/20 08:30 06/21/20 09:52 Zaroxolyn PO 5 mg 0830 SHORTY Administration Morphine Sulfate 4 mg 06/02/20 10:54 06/03/20 11:58 Morphine SLOW IVP 4 mg Q2H PRN Administration Severe Pain (7-10) Pantoprazole Sodium 40 mg 06/02/20 21:00 06/21/20 09:52 Protonix PO 40 mg BID SHORTY Administration Senna/Docusate Sodium 2 tab 06/03/20 21:00 06/21/20 09:53 Senokot S PO 2 tab BID SHORTY Administration Tamsulosin HCl 0.4 mg 06/03/20 09:00 06/21/20 09:52 Flomax PO 0.4 mg DAILY SHORTY Administration Hosp A/P - Plan - Exam General Appearance: awake alert, NAD ENT: normocephalic atraumatic Neck: supple, no JVD Respiratory: normal chest expansion, no tachypnea Cardiovascular: RRR, S1S2 noted. no murmur. Gastrointestinal: soft Extremities: 3+ LE edema Neurological: cranial nerve grossly intact, no new deficit Assessment and Plan: This is an 79 year old male with past medical history of multiple hip surgeries presenting with left thigh and hip pain NNEKA/CKD 4 - likely d/t cardiorenal syndrome --Cont IV diuresis with Lasix gtt, renal function stable. s/p IV Albumin x 8 doses, urine output improved. Maintain neg fluid balance --Cr stable. Good urine output, weight went down. Cont current mgt. LE edema has improved. --cont Fluid restriction, monitor I&O and daily weight Acute diastolic heart failure secondary to pulmonary edema --ECHO 06/03 showed severely elevated pulm artery pressure . Chest X ray shows widespread interstitial reticulonodular prominence --Cont IV diuresis with Lasix gtt and Zaroxolyn. S/p Albumin, which helped augment diuresis. Follow renal funtion --Low sodium diet, maintain neg fluid balance. Acute hypoxic respiratory failure --secondary to fluid retention. Wean O2 as aurea. cont breathing treatments. Add Pulmicort nebs. IV diuresis as above --Appreciate Dr. Shipman's input, pt is well-known to him. Scrotal swelling/LE edema - from fluid overload --testicular ultrasound showed possible cellulitis. CT abdomen showed edema, no air or gas. Urology consulted, thought no signs of Eladia's and from fluid --continue lasix drip as above, legs elevation. --Supportive cares. Pt is on IV abx --improved Left thigh and hip pain s/p total hip arthroplasty complicated with infection, wound culture positive for Morganella morganii --Wound cultures growing Morganella Morganii. Cont IV abx with Vanc and Meropenem until end of June as per ID Anemia of chronic disease superimposed with blood loss anemia, and iron def anemia --possibly blood loss related from surgery. s/p blood transfusions. s/p IV Venofer --Transfuse another unit to keep Hb>8. ASA was discontinued and Lovenox dosage adjusted by cardiology --Pt had GI workup in the past. No evidence of acute bleeding --Monitor H/H Hypocalcemia - possibly from vitamin D deficiency --resolved, - started on vitamin D supplementation given slightly low levels of 23 Physical deconditioning --continue PT and OT. Likely need rehab upon discharge
--- NOTE | 2020-06-21 16:54 | PRG ---
DATE OF SERVICE: 06/21/2020 SUBJECTIVE: Bin Mart is move to the intermediate care unit, placed on BiPAP last night. I was not notified. He says he feels great this morning. OBJECTIVE: VITAL SIGNS: He is afebrile, heart rate 94, respiratory rate is 19, oximetry is 96, blood pressure 130/72. LUNGS: His wheezes have significantly improved compared to yesterday. HEART: Regular rhythm. ABDOMEN: Soft. LABORATORY DATA: White count 9.2, hemoglobin 8.3, platelets 291. Sodium 141, potassium 3.4, chloride 101, bicarb 26, BUN 91, creatinine 2.16. IMPRESSION: 1. Diastolic heart failure. 2. Chronic obstructive pulmonary disease exacerbation. 3. Status post multiple hip operations recently. PLAN: Continue supportive care. The biggest issue at this point in time is his deconditioning. Job ID: [id number]
[2020-06-21] MEDS: Atorvastatin Calcium 20 MG TAB PO SCH (20:27)
[2020-06-22] MEDS: MEROPENEM 1 GM/50 ML 1 GM in Premix Bag 1 BAG IVPB SCH ×3 (00:23→23:21)
[2020-06-22] MEDS: HYDROcodone/Acetaminophen 5/325 mg Tablet PO SCH ×4 (03:56→20:35)
[2020-06-22] MEDS: Furosemide 100 MG, Admixture Fee 1 EACH in Sodium Chloride 0.9% 90 ML IVPB SCH ×2 (03:59→20:34)
[2020-06-22 05:16] LABS: Hemoglobin 8.1 g/dL (14.0-18.0); Mean Corpuscular HGB CONC 30.7 g/dL (32.0-36.0); Mean Corpuscular Volume 87.8 fL (78.0-98.0); Platelet Count 307 thou/uL (130-400); RBC Distribution Width 18.4 % (11.5-14.5); Red Blood Cell (RBC) Count 3.01 mill/uL (4.70-6.10); White Blood Cell (WBC) Count 13.9 thou/uL (4.8-10.8)
[2020-06-22] MEDS: Budesonide 0.5 MG/2 ML NEB INH SCH ×2 (06:31→18:21)
[2020-06-22] MEDS ORDERED: Potassium Chloride 20 MEQ TAB PO SCH (08:45)
--- NOTE | 2020-06-22 09:37 | PRG ---
DATE OF SERVICE: 06/22/2020 SUBJECTIVE: Mr. Mart states he is actually breathing better today. No chest pain. OBJECTIVE: VITAL SIGNS: Blood pressure 127/65. LUNGS: Clear anteriorly and laterally. CARDIAC: Normal S1, normal S2. ABDOMEN: Soft, nontender. EXTREMITIES: Moderate edema seems to be improved. ASSESSMENT: 1. Congestive heart failure, diastolic, acute on chronic, very slowly improving. 2. Renal failure stage 3, sometimes 4 depending on the daily levels. 3. Anemia. PLAN: 1. Reduce the enoxaparin. 2. Aspirin has been on hold. 3. Continue with potassium. 4. Continue IV Lasix and metolazone. 5. Check basic met tomorrow. Job ID: [id number] [facility]
[2020-06-22 10:12] LABS: Anion Gap 18 mmol/L (10-20); BUN (Urea Nitrogen) 99 mg/dL (8.4-25.7); Calc. Creatinine Clearance 36 mL/min (70-130); Calcium 8.5 mg/dL (7.8-10.44); Carbon Dioxide 26 mmol/L (23-31); Chloride 99 mmol/L (98-107); Estimated GFR-MDRD 27; Glucose 127 mg/dL (83-110); Potassium 3.1 mmol/L (3.5-5.1); Sodium 140 mmol/L (136-145)
[2020-06-22] MEDS: Tamsulosin HCl 0.4 MG CAP PO SCH (10:35)
[2020-06-22] MEDS: Metolazone 5 MG TAB PO SCH (10:35)
[2020-06-22] MEDS: Cholecalciferol (Vitamin D3) 400 UNITS TAB PO SCH (10:35)
[2020-06-22] MEDS: Gabapentin 100 MG CAP PO SCH ×2 (10:35→20:34)
[2020-06-22] MEDS: Senokot S 8.6-50 MG TAB PO SCH ×2 (10:35→20:40)
[2020-06-22] MEDS: Magnesium Oxide 400 MG TAB PO SCH (10:36)
[2020-06-22] MEDS: Doxycycline 100 MG CAP PO SCH (10:36)
[2020-06-22] MEDS: Enoxaparin Sodium 30 MG/0.3 ML SYRINGE SC SCH (10:36)
[2020-06-22] MEDS: Multivitamin W/ Minerals 1 TAB PO SCH (10:36)
[2020-06-22] MEDS: Ferrous Gluconate 324 MG TAB PO SCH ×2 (10:36→20:35)
[2020-06-22] MEDS: Fluticasone Propionate Nasal Spray 16 gm Bottle NASAL SCH (10:37)
[2020-06-22] MEDS ORDERED: Heparin 1,000 UNITS/ML VIAL ONE (10:49)
[2020-06-22] MEDS ORDERED: Loperamide HCl 2 MG CAP PO PRN (12:06)
[2020-06-22] MEDS ORDERED: guaiFENesin/Codeine Phosphate 200 mg/20 mg 10 ml UD Cup PO PRN (12:17)
--- NOTE | 2020-06-22 13:05 | PRG ---
DATE OF SERVICE: 06/22/2020 SUBJECTIVE: Patient was seen and examined at bedside and overnight events noted. Patient denies any shortness of breath or chest pain or palpitation. No history of nausea or vomiting or diarrhea or fever or chills or cramps. OBJECTIVE: General: This is a well-built male, in no apparent distress. Vital Signs: Temperature 98.2. Heart rate 89. Respiratory rate 18. Blood pressure 127/65. I's and O's negative 1 L yesterday. HEENT: Atraumatic, normocephalic. Oral mucosa is moist. Neck: Supple. Cardiovascular: S1, S2 heard. Rate and rhythm regular. Respiratory: Clear to auscultation. Gastrointestinal: Abdomen is soft. Musculoskeletal: No tenderness. No edema. Dermatologic: No skin rash. Neurologic: Alert and awake and oriented x3. No focal neurologic deficits. Moving all the extremities. Psychiatric: Mood and affect normal. LABORATORY DATA: Hemoglobin 8.1. Potassium 3.1, BUN is 99, creatinine is 2.31. ASSESSMENT AND PLAN: 1. Acute kidney injury on chronic kidney disease, stage 4 with almost stable labs. BUN keeps on rising. We will monitor. 2. Cardiorenal syndrome. Some fluid overload. Continue on diuretics. 3. Anemia. 4. Hypokalemia, replace . 5. Edema. 6. Responding to diuretics. Renal function reasonably stays stable. We will continue monitoring. Monitor electrolytes and replace. Job ID: [id number]
[2020-06-22] MEDS ORDERED: Guaifenesin DM 100-10/5 ML UDCUP PO PRN (14:11)
--- NOTE | 2020-06-22 15:16 | PDOC.HOSPP ---
- Subjective Subjective: pt complaints of cough. breathing improved. swelling went down. Net net of 2.9 L overnight - Objective Vital Signs & Weight: Vital Signs (12 hours) Temp Pulse Pulse Pulse Resp BP BP 06/22/20 10:59 89 15 06/22/20 09:59 90 87 123/66 141/83 H 06/22/20 09:20 06/22/20 07:56 06/22/20 07:23 98.2 F 06/22/20 06:32 88 12 06/22/20 06:31 88 12 06/22/20 03:58 98.6 F Pulse Ox Pulse Ox Pulse Ox Pulse Ox 06/22/20 10:59 100 06/22/20 09:59 82 L 95 98 06/22/20 09:20 97 91 L 98 06/22/20 07:56 100 06/22/20 07:23 06/22/20 06:32 100 06/22/20 06:31 100 06/22/20 03:58 Weight Admit Weight 195 lb Weight 219 lb 12.8 oz Most Recent Monitor Data Heart Rate from ECG 92 NIBP 119/85 NIBP BP-Mean 96 Respiration from ECG 22 SpO2 94 I&O: 06/21/20 06/22/20 06/23/20 06:59 06:59 06:59 Intake Total 1420 360 Output Total 4325 1400 Balance -2905 -1040 Result Diagrams: 06/22/20 05:08 06/22/20 09:06 Hospitalist ROS - Medication Medications: Active Medications Generic Name Dose Route Start Last Admin Trade Name Freq PRN Reason Stop Dose Admin Acetaminophen 650 mg 06/03/20 16:52 06/07/20 17:51 Tylenol PO 650 mg Q4H PRN Administration Headache/Fever or Pain Hydrocodone Bitart/Acetaminophen 1 tab 06/12/20 21:00 06/22/20 10:35 [place] 5/325 PO 1 tab 0300,0900,1500,2100 SHORTY Administration Albuterol/Ipratropium 3 ml 06/20/20 18:30 06/22/20 15:07 Duoneb NEB Not Given [id number] SHORTY Atorvastatin Calcium 20 mg 06/02/20 21:00 06/21/20 20:27 Lipitor PO 20 mg HS SHORTY Administration Budesonide 0.5 mg 06/19/20 18:30 06/22/20 06:31 Pulmicort Neb Solution INH 0.5 mg BID-RT SHORTY Administration Cholecalciferol 800 units 06/07/20 09:00 06/22/20 10:35 Vitamin D PO 800 units DAILY SHORTY Administration Enoxaparin Sodium 30 mg 06/20/20 09:00 06/22/20 10:36 Lovenox SC 30 mg 0900 SHORTY Administration Fentanyl 50 mcg 06/02/20 10:54 06/02/20 14:34 Sublimaze SLOW IVP 50 mcg Q30M PRN Administration Severe breakthrough pain Ferrous Gluconate 324 mg 06/03/20 21:00 06/22/20 10:36 Fergon PO 324 mg BID SHORTY Administration Fluticasone Propionate 0 gm 06/20/20 09:00 06/22/20 10:37 Flonase Nasal [place] NASAL 2 spr DAILY SHORTY Administration Gabapentin 100 mg 06/02/20 21:00 06/22/20 10:35 Neurontin PO 100 mg BID SHORTY Administration Meropenem 1 gm/ Device 50 mls @ 100 mls/hr 06/12/20 12:00 06/22/20 12:57 IVPB 50 mls 0000,1200 SHORTY Administration Vancomycin HCl 500 mg/ Sodium 100 mls @ 100 mls/hr 06/15/20 16:00 06/21/20 15 :49 Chloride IVPB 100 mls 1600 SHORTY Administration Furosemide 100 mg/ 100 mls @ 8 mls/hr 06/17/20 09:32 06/22/20 03:59 Miscellaneous Medication 1 IVPB 100 mls each/ Sodium Chloride INF SHORTY Administration Iron/Minerals/Multivitamins 1 tab 06/04/20 09:00 06/22/20 10:36 Theragran M PO 1 tab DAILY SHORTY Administration Magnesium Oxide 400 mg 06/11/20 09:00 06/22/20 10:36 Magnesium Oxide PO 400 mg DAILY SHORTY Administration Metolazone 5 mg 06/18/20 08:30 06/22/20 10:35 Zaroxolyn PO 5 mg 0830 SHORTY Administration Morphine Sulfate 4 mg 06/02/20 10:54 06/03/20 11:58 Morphine SLOW IVP 4 mg Q2H PRN Administration Severe Pain (7-10) Pantoprazole Sodium 40 mg 06/02/20 21:00 06/22/20 10:36 Protonix PO 40 mg BID SHORTY Administration Senna/Docusate Sodium 2 tab 06/03/20 21:00 06/22/20 10:35 Senokot S PO 2 tab BID SHORTY Administration Tamsulosin HCl 0.4 mg 06/03/20 09:00 06/22/20 10:35 Flomax PO 0.4 mg DAILY SHORTY Administration Hosp A/P - Plan - Exam General Appearance: awake alert, NAD ENT: normocephalic atraumatic Neck: supple, no JVD Respiratory: normal chest expansion, no tachypnea Cardiovascular: RRR, S1S2 noted. no murmur. Gastrointestinal: soft Extremities: 3+ LE edema Neurological: cranial nerve grossly intact, no new deficit Assessment and Plan: This is an 79 year old male with past medical history of multiple hip surgeries presenting with left thigh and hip pain Acute diastolic heart failure secondary to pulmonary edema --ECHO 06/03 showed severely elevated pulm artery pressure . Chest X ray shows widespread interstitial reticulonodular prominence --Cont IV diuresis with Lasix gtt and Zaroxolyn. S/p Albumin, which helped augment diuresis. Follow renal function --Low sodium diet, maintain neg fluid balance. --Replete lytes prn --Transfer out of IMCU, to cont PT NNEKA/CKD 4 - likely d/t cardiorenal syndrome --Cont IV diuresis with Lasix gtt, renal function stable. s/p IV Albumin x 8 doses, urine output improved. Maintain neg fluid balance --Cr stable. Good urine output, weight went down. Cont current mgt. LE edema has improved. --cont Fluid restriction, monitor I&O and daily weight Acute hypoxic respiratory failure --secondary to fluid retention. Wean O2 as aurea. cont breathing treatments. Add Pulmicort nebs. IV diuresis as above --Appreciate Dr. Shipman's input, pt is well-known to him. Scrotal swelling/LE edema - from fluid overload --testicular ultrasound showed possible cellulitis. CT abdomen showed edema, no air or gas. Urology consulted, thought no signs of Eladia's and from fluid --continue lasix drip as above, legs elevation. --Supportive cares. Pt is on IV abx --improved Left thigh and hip pain s/p total hip arthroplasty complicated with infection, wound culture positive for Morganella morganii --Wound cultures growing Morganella Morganii. Cont IV abx with Vanc and Meropenem until end of June as per ID Anemia of chronic disease superimposed with blood loss anemia, and iron def anemia --possibly blood loss related from surgery. s/p blood transfusions. s/p IV Venofer --Transfuse another unit to keep Hb>8. ASA was discontinued and Lovenox dosage adjusted by cardiology --Pt had GI workup in the past. No evidence of acute bleeding --Monitor H/H Hypocalcemia - possibly from vitamin D deficiency --resolved, - started on vitamin D supplementation given slightly low levels of 23 Physical deconditioning --continue PT and OT. Likely need rehab upon discharge
[2020-06-22] MEDS: Vancomycin HCl 500 MG in Sodium Chloride 0.9% 100 ML IVPB SCH (17:08)
--- NOTE | 2020-06-22 17:40 | PRG ---
DATE OF SERVICE: 06/22/2020 SUBJECTIVE: Bin Mart continues to improve. He said he is feeling much better. OBJECTIVE: VITAL SIGNS: His heart rate is 87, blood pressure 139/72, respiratory rate is 18, oximetry is 94. LUNGS: On exam, he is not wheezing. HEART: Regular rhythm. ABDOMEN: Soft. LABORATORY DATA: White count 13.9, hemoglobin 8.1, platelets 307. Sodium 140, potassium 3.1, chloride 99, bicarb 26, BUN 99, and creatinine 2.31. IMPRESSION: 1. Diastolic heart failure. 2. Chronic obstructive pulmonary disease with recent bronchospasm, improved with one dose of IV steroids. 3. Deconditioning. 4. Chronic kidney disease. PLAN: Continue to follow up. He is stable to move out of the intermediate care unit in my opinion. Job ID: [id number]
[2020-06-22] MEDS: Atorvastatin Calcium 20 MG TAB PO SCH (20:34)
[2020-06-22] MEDS: guaiFENesin ER 600 MG TAB PO SCH (20:35)
[2020-06-23 05:20] LABS: #Basophils 0.1 thou/uL (0.0-0.2); #Eosinphils 0.2 thou/uL (0.0-0.7); #Monocytes 0.9 thou/uL (0.11-0.59); #Neutrophils 11.8 thou/uL (1.40-6.50); %Basophils 0.4 % (0.0-1.0); %Eosinophils 1.3 % (0.0-10.0); %Lymphocytes 7.3 % (21.0-51.0); %Monocytes 6.5 % (0.0-10.0); %Neutrophils 84.5 % (42.0-75.0); Hemoglobin 8.6 g/dL (14.0-18.0); Mean Corpuscular HGB CONC 30.2 g/dL (32.0-36.0); Mean Corpuscular Hemoglobin 27.1 pg (27.0-31.0); Mean Corpuscular Volume 89.8 fL (78.0-98.0); Mean Platelet Volume 8.5 fL (7.4-10.4); Platelet Count 295 thou/uL (130-400); RBC Distribution Width 19.3 % (11.5-14.5); Red Blood Cell (RBC) Count 3.18 mill/uL (4.70-6.10)
[2020-06-23 05:46] LABS: Anion Gap 16 mmol/L (10-20); BUN (Urea Nitrogen) 96 mg/dL (8.4-25.7); Calc. Creatinine Clearance 39 mL/min (70-130); Calcium 8.4 mg/dL (7.8-10.44); Carbon Dioxide 27 mmol/L (23-31); Chloride 100 mmol/L (98-107); Estimated GFR-MDRD 29; Glucose 96 mg/dL (83-110); Magnesium 2.5 mg/dL (1.6-2.6); Potassium 3.3 mmol/L (3.5-5.1); Sodium 140 mmol/L (136-145)
[2020-06-23] MEDS: Budesonide 0.5 MG/2 ML NEB INH SCH ×2 (07:07→17:53)
[2020-06-23] MEDS ORDERED: Potassium Chloride 20 MEQ TAB PO SCH ×2 (08:00→08:45)
[2020-06-23] MEDS: Metolazone 5 MG TAB PO SCH (08:23)
[2020-06-23] MEDS: Magnesium Oxide 400 MG TAB PO SCH (08:23)
[2020-06-23] MEDS: Enoxaparin Sodium 30 MG/0.3 ML SYRINGE SC SCH (08:23)
[2020-06-23] MEDS: Gabapentin 100 MG CAP PO SCH ×2 (08:23→20:52)
[2020-06-23] MEDS: Ferrous Gluconate 324 MG TAB PO SCH ×2 (08:23→20:52)
[2020-06-23] MEDS: Tamsulosin HCl 0.4 MG CAP PO SCH (08:24)
[2020-06-23] MEDS: Senokot S 8.6-50 MG TAB PO SCH ×2 (08:24→20:52)
[2020-06-23] MEDS: Cholecalciferol (Vitamin D3) 400 UNITS TAB PO SCH (08:24)
[2020-06-23] MEDS: guaiFENesin ER 600 MG TAB PO SCH ×2 (08:25→20:52)
[2020-06-23] MEDS: Fluticasone Propionate Nasal Spray 16 gm Bottle NASAL SCH (08:25)
[2020-06-23] MEDS: Multivitamin W/ Minerals 1 TAB PO SCH (08:25)
[2020-06-23] MEDS: Furosemide 100 MG, Admixture Fee 1 EACH in Sodium Chloride 0.9% 90 ML IVPB SCH ×2 (08:33→22:26)
[2020-06-23] MEDS: HYDROcodone/Acetaminophen 5/325 mg Tablet PO SCH ×3 (10:07→20:52)
[2020-06-23] MEDS: MEROPENEM 1 GM/50 ML 1 GM in Premix Bag 1 BAG IVPB SCH ×2 (12:24→23:26)
--- NOTE | 2020-06-23 12:49 | PRG ---
DATE OF SERVICE: 06/23/2020 SUBJECTIVE: Bin Mart did well overnight. He has no complaints. OBJECTIVE: VITAL SIGNS: He is afebrile, heart rate is 85, respiratory rate is 16, and oximetry is 99. He has nasal cannula in place. Blood pressure 127/71. LUNGS: Free of wheezes. HEART: Regular rhythm. ABDOMEN: Soft. LABORATORY DATA: White count 14, hemoglobin 8.6, and platelets 295. Sodium 140, potassium 3.3, chloride 100, bicarb 27, BUN 96, and creatinine 3.2. IMPRESSION: 1. Chronic obstructive pulmonary disease exacerbation. 2. Diastolic heart failure. 3. Acute on chronic kidney disease. 4. Multiple recent hip surgeries. 5. Deconditioning. PLAN: Continue physical therapy. Also, dosing IV steroids again. Job ID: [id number]
--- NOTE | 2020-06-23 14:32 | PRG ---
DATE OF SERVICE: 06/23/2020 SUBJECTIVE: Mr. Mart says he is breathing somewhat better, but he is still extremely edematous. OBJECTIVE: VITAL SIGNS: Blood pressure is 120/70, pulse is in the 90s. LUNGS: Clear. CARDIAC: Normal S1, normal S2. ABDOMEN: Obese, nontender. EXTREMITIES: Still moderate edema. GENITALIA: Still has severe scrotal and penile edema. LABORATORY DATA: The hemoglobin is 8.6. The creatinine is 2.2, potassium 3.3. ASSESSMENT: 1. Congestive heart failure, diastolic, very difficult to treat, very refractory. 2. Chronic obstructive pulmonary disease with right heart failure secondary to chronic obstructive pulmonary disease. 3. Coronary artery disease. PLAN: 1. We will increase furosemide to 10 mg an hour. 2. Continue metolazone. 3. Check daily base met. Not really ready to be released home. Still has severe scrotal and penile edema and severe edema throughout his body. It is not really clear why the I and O are consistently negative, but he still is not losing much weight if any. Job ID: [id number]
[2020-06-23] MEDS: Vancomycin HCl 500 MG in Sodium Chloride 0.9% 100 ML IVPB SCH (15:26)
[2020-06-23 15:34] LABS: Vancomycin, Trough 21.5 ug/mL
--- NOTE | 2020-06-23 15:47 | PRG ---
DATE OF SERVICE: 06/23/2020 SUBJECTIVE: Patient was seen and examined at bedside and overnight events noted. Patient denies any shortness of breath or chest pain or palpitation. No history of nausea or vomiting or diarrhea or fever or chills or cramps. OBJECTIVE: General: This is a well-built male, in no apparent distress. Vital Signs: Temperature 97.9. Heart rate 85. Respiratory rate 16. Blood pressure 127/71. HEENT: Atraumatic, normocephalic. Oral mucosa is moist. Neck: Supple. Cardiovascular: S1, S2 heard. Rate and rhythm regular. Respiratory: Clear to auscultation. Gastrointestinal: Abdomen is soft. Musculoskeletal: No tenderness. No edema. Dermatologic: No skin rash. Neurologic: Alert and awake and oriented x3. No focal neurologic deficits. Moving all the extremities. Psychiatric: Mood and affect normal. LABORATORY DATA: Potassium 3.3, BUN is 96, creatinine is 2.2. ASSESSMENT AND PLAN: 1. Acute kidney injury on chronic kidney disease stage 4. 2. Hypokalemia. 3. Cardiorenal syndrome. 4. Edema. 5. Anemia of chronic disease. 6. Continue diuretics. We will closely monitor electrolytes. Replace potassium with caution. We will follow. Job ID: [id number]
--- NOTE | 2020-06-23 16:25 | PDOC.HOSPP ---
- Subjective Subjective: Patient was seen examined at bedside. His edema appears to be improved from his lower extremity. Patient's maintain negative fluid balance with 1.6 L overnight. However his weight is still elevated. Patient has been consistently having negative fluid balance however his weight actually went up. Cardiology went up on the drip - Objective Vital Signs & Weight: Vital Signs (12 hours) Temp Pulse Resp BP Pulse Ox 06/23/20 14:50 98 F 92 18 125/65 100 06/23/20 14:40 94 18 100 06/23/20 10:46 93 20 100 06/23/20 10:45 97.9 F 85 16 127/71 99 06/23/20 08:23 96 06/23/20 07:48 97.9 F 84 18 120/67 96 06/23/20 07:07 84 20 93 L Weight Admit Weight 195 lb Weight 224 lb 6.889 oz Most Recent Monitor Data Heart Rate from ECG 92 NIBP 119/85 NIBP BP-Mean 96 Respiration from ECG 22 SpO2 94 I&O: 06/22/20 06/23/20 06/24/20 06:59 06:59 06:59 Intake Total 360 685 Output Total 1400 2375 Balance -1040 -1690 Result Diagrams: 06/23/20 04:56 06/23/20 04:56 Hospitalist ROS - Medication Medications: Active Medications Generic Name Dose Route Start Last Admin Trade Name Freq PRN Reason Stop Dose Admin Acetaminophen 650 mg 06/03/20 16:52 06/07/20 17:51 Tylenol PO 650 mg Q4H PRN Administration Headache/Fever or Pain Hydrocodone Bitart/Acetaminophen 1 tab 06/23/20 09:00 06/23/20 15:24 [place] 5/325 PO 06/24/20 09:01 1 tab 0300,0900,1500,2100 SHORTY Administration Albuterol/Ipratropium 3 ml 06/20/20 18:30 06/23/20 14:40 Duoneb NEB 3 ml [id number] SHORTY Administration Atorvastatin Calcium 20 mg 06/02/20 21:00 06/22/20 20:34 Lipitor PO 20 mg HS SHORTY Administration Budesonide 0.5 mg 06/19/20 18:30 06/23/20 07:07 Pulmicort Neb Solution INH 0.5 mg BID-RT SHORTY Administration Cholecalciferol 800 units 06/07/20 09:00 06/23/20 08:24 Vitamin D PO 800 units DAILY SHORYT Administration Enoxaparin Sodium 30 mg 06/20/20 09:00 06/23/20 08:23 Lovenox SC 30 mg 0900 SHORTY Administration Fentanyl 50 mcg 06/02/20 10:54 06/02/20 14:34 Sublimaze SLOW IVP 50 mcg Q30M PRN Administration Severe breakthrough pain Ferrous Gluconate 324 mg 06/03/20 21:00 06/23/20 08:23 Fergon PO 324 mg BID [facility] Administration Fluticasone Propionate 0 gm 06/20/20 09:00 06/23/20 08:25 Flonase Nasal [place] NASAL 2 spr DAILY [facility] Administration Gabapentin 100 mg 06/02/20 21:00 06/23/20 08:23 Neurontin PO 100 mg BID [facility] Administration Guaifenesin 600 mg 06/22/20 21:00 06/23/20 08:25 Mucinex PO 600 mg Q12HR SHORTY Administration Meropenem 1 gm/ Device 50 mls @ 100 mls/hr 06/12/20 12:00 06/23/20 12:24 IVPB 50 mls 0000,1200 [facility] Administration Iron/Minerals/Multivitamins 1 tab 06/04/20 09:00 06/23/20 08:25 Theragran M PO 1 tab DAILY SHORTY Administration Magnesium Oxide 400 mg 06/11/20 09:00 06/23/20 08:23 Magnesium Oxide PO 400 mg DAILY [facility] Administration Metolazone 5 mg 06/18/20 08:30 06/23/20 08:23 Zaroxolyn PO 5 mg 0830 SHORTY Administration Morphine Sulfate 4 mg 06/02/20 10:54 06/03/20 11:58 Morphine SLOW IVP 4 mg Q2H PRN Administration Severe Pain (7-10) Pantoprazole Sodium 40 mg 06/02/20 21:00 06/23/20 08:25 Protonix PO 40 mg BID SHORTY Administration Senna/Docusate Sodium 2 tab 06/03/20 21:00 06/23/20 08:24 Senokot S PO 2 tab BID [facility] Administration Tamsulosin HCl 0.4 mg 06/03/20 09:00 06/23/20 08:24 Flomax PO 0.4 mg DAILY [facility] Administration Hosp A/P - Plan - Exam General Appearance: awake alert, NAD ENT: normocephalic atraumatic Neck: supple, no JVD Respiratory: normal chest expansion, no tachypnea Cardiovascular: RRR, S1S2 noted. no murmur. Gastrointestinal: soft Extremities: 3+ LE edema Neurological: cranial nerve grossly intact, no new deficit Assessment and Plan: This is an 79 year old male with past medical history of multiple hip surgeries presenting with left thigh and hip pain Acute diastolic heart failure secondary to pulmonary edema --ECHO 06/03 showed severely elevated pulm artery pressure . Chest X ray shows widespread interstitial reticulonodular prominence --Cont IV diuresis with Lasix gtt and Zaroxolyn. S/p Albumin, which helped augment diuresis. Follow renal function --Low sodium diet, maintain neg fluid balance. --Replete lytes prn --Pt is consistently having neg fluid balance for the last several days; but weight went up? Update pt's NNEKA/CKD 4 - likely d/t cardiorenal syndrome --Cont IV diuresis with Lasix gtt, renal function stable. s/p IV Albumin x 8 doses, urine output improved. Maintain neg fluid balance --Cr stable. Good urine output, weight went down. Cont current mgt. LE edema has improved. --cont Fluid restriction, monitor I&O and daily weight Acute hypoxic respiratory failure --secondary to fluid retention. Wean O2 as aurea. cont breathing treatments. Add Pulmicort nebs. IV diuresis as above --Appreciate Dr. Shipman's input, pt is well-known to him. Scrotal swelling/LE edema - from fluid overload --testicular ultrasound showed possible cellulitis. CT abdomen showed edema, no air or gas. Urology consulted, thought no signs of Eladia's and from fluid --continue lasix drip as above, legs elevation. --Supportive cares. Pt is on IV abx --improved Left thigh and hip pain s/p total hip arthroplasty complicated with infection, wound culture positive for Morganella morganii --Wound cultures growing Morganella Morganii. Cont IV abx with Vanc and Meropenem until end of June as per ID Anemia of chronic disease superimposed with blood loss anemia, and iron def anemia --possibly blood loss related from surgery. s/p blood transfusions. s/p IV Venofer --Transfuse another unit to keep Hb>8. ASA was discontinued and Lovenox dosage adjusted by cardiology --Pt had GI workup in the past. No evidence of acute bleeding --Monitor H/H Hypocalcemia - possibly from vitamin D deficiency --resolved, - started on vitamin D supplementation given slightly low levels of 23 Physical deconditioning --continue PT and OT. Likely need rehab upon discharge
[2020-06-23] MEDS: Atorvastatin Calcium 20 MG TAB PO SCH (20:51)
[2020-06-24] MEDS: HYDROcodone/Acetaminophen 5/325 mg Tablet PO SCH ×2 (03:25→10:33)
[2020-06-24 05:16] LABS: Hemoglobin 8.8 g/dL (14.0-18.0); Mean Corpuscular HGB CONC 31.6 g/dL (32.0-36.0); Mean Corpuscular Hemoglobin 28.5 pg (27.0-31.0); Mean Corpuscular Volume 90.5 fL (78.0-98.0); Mean Platelet Volume 8.6 fL (7.4-10.4); Platelet Count 307 thou/uL (130-400); RBC Distribution Width 19.3 % (11.5-14.5); Red Blood Cell (RBC) Count 3.08 mill/uL (4.70-6.10); White Blood Cell (WBC) Count 13.1 thou/uL (4.8-10.8)
[2020-06-24 05:43] LABS: Anion Gap 14 mmol/L (10-20); BUN (Urea Nitrogen) 91 mg/dL (8.4-25.7); Calc. Creatinine Clearance 40 mL/min (70-130); Calcium 8.1 mg/dL (7.8-10.44); Carbon Dioxide 30 mmol/L (23-31); Chloride 98 mmol/L (98-107); Estimated GFR-MDRD 31; Glucose 100 mg/dL (83-110); Potassium 3.1 mmol/L (3.5-5.1); Sodium 139 mmol/L (136-145)
[2020-06-24] MEDS: Budesonide 0.5 MG/2 ML NEB INH SCH ×2 (06:55→17:19)
[2020-06-24] MEDS ORDERED: Potassium Chloride 20 MEQ TAB PO SCH (07:45)
[2020-06-24] MEDS: Magnesium Oxide 400 MG TAB PO SCH (08:53)
[2020-06-24] MEDS: Cholecalciferol (Vitamin D3) 400 UNITS TAB PO SCH (08:53)
[2020-06-24] MEDS: Metolazone 5 MG TAB PO SCH (08:53)
[2020-06-24] MEDS: Gabapentin 100 MG CAP PO SCH ×2 (08:54→20:16)
[2020-06-24] MEDS: Tamsulosin HCl 0.4 MG CAP PO SCH (08:54)
[2020-06-24] MEDS: Ferrous Gluconate 324 MG TAB PO SCH ×2 (08:55→20:16)
[2020-06-24] MEDS: Fluticasone Propionate Nasal Spray 16 gm Bottle NASAL SCH (08:55)
[2020-06-24] MEDS: Multivitamin W/ Minerals 1 TAB PO SCH (08:55)
[2020-06-24] MEDS: guaiFENesin ER 600 MG TAB PO SCH ×2 (08:55→20:16)
[2020-06-24] MEDS: Enoxaparin Sodium 30 MG/0.3 ML SYRINGE SC SCH (08:59)
[2020-06-24] MEDS: Senokot S 8.6-50 MG TAB PO SCH ×2 (09:07→20:26)
--- NOTE | 2020-06-24 11:29 | PRG ---
DATE OF SERVICE: 06/24/2020 SUBJECTIVE: Mr. Mart has a CPAP on now, but he says he is not having trouble breathing. OBJECTIVE: VITAL SIGNS: His blood pressure 130/60 and pulse in the 80s. LUNGS: Clear. CARDIAC: Normal S1 and S2. ABDOMEN: Soft and nontender. EXTREMITIES: There is only mild to moderate edema, now it has really improved since yesterday. Also, the scrotal and penile edema have improved. LABORATORY DATA: The patient's creatinine is stable at 2.09 and potassium 3.1. ASSESSMENT: Diastolic heart failure, clinically improved today. He really had a good response to the furosemide at 10 mg an hour in addition to the metolazone with 5 L out yesterday and -3.7 L, which really is the best he has done. The weight still I would say is 224 pounds. The weights do not seem to be reliable. PLAN: 1. Continue the furosemide and metolazone. We can probably stop the metolazone tomorrow. 2. May be able to go to oral diuretics this weekend. 3. We will resume aspirin on Saturday. Job ID: [id number]
[2020-06-24] MEDS: MEROPENEM 1 GM/50 ML 1 GM in Premix Bag 1 BAG IVPB SCH (12:40)
[2020-06-24] MEDS: Furosemide 100 MG, Admixture Fee 1 EACH in Sodium Chloride 0.9% 90 ML IVPB SCH ×2 (12:40→20:16)
--- NOTE | 2020-06-24 12:48 | PRG ---
DATE OF SERVICE: SUBJECTIVE: Patient was seen and examined at bedside and overnight events noted. Patient denies any shortness of breath or chest pain or palpitation. No history of nausea or vomiting or diarrhea or fever or chills or cramps. OBJECTIVE: General: This is a well-built male, in no apparent distress. Vital Signs: Temperature 98.6. Heart Rate 93. Respiratory rate 16. Blood pressure 115/61. HEENT: Atraumatic, normocephalic. Oral mucosa is moist. Neck: Supple. Cardiovascular: S1, S2 heard. Rate and rhythm regular. Respiratory: Clear to auscultation. Gastrointestinal: Abdomen is soft. Musculoskeletal: No tenderness. No edema. Dermatologic: No skin rash. Neurologic: Alert and awake and oriented x3. No focal neurologic deficits. Moving all the extremities. Psychiatric: Mood and affect normal. LABORATORY DATA: Potassium 3.1, BUN is 91, creatinine is 2.09. ASSESSMENT AND PLAN: 1. Acute kidney injury on chronic kidney disease, stage 4 with stable creatinine despite diuresis. Continue diuresis as tolerated. Monitor renal function and electrolytes. 2. Hypokalemia. Agree with cautious supplementation. Check cardiorenal syndrome. 3. Edema, on diuretics per Cardiology. We will monitor renal function while maintaining adequate diuresis. 4. Anemia of chronic disease. Agree that the patient still remains edematous and continue diuretics. Renal function is tolerating that well and I will watch renal function. Recommend cautious potassium supplementation. We will follow. Job ID: [id number]
[2020-06-24] MEDS: Vancomycin HCl 250 MG in Sodium Chloride 0.9% 100 ML IVPB SCH (16:22)
--- NOTE | 2020-06-24 18:30 | PDOC.HOSPP ---
- Subjective Subjective: Patient has been diuresed well for the past few days. If with -3.7 L output overnight. Surprisingly his weight remained the same. Edema much improved. Discussed with cardiology. We will continue with Lasix drip and metolazone for another day and will consider switch him over to oral diuretics over the weekend. - Objective Vital Signs & Weight: Vital Signs (12 hours) Temp Pulse Resp BP BP Pulse Ox Pulse Ox 06/24/20 17:19 86 20 94 L 06/24/20 15:09 98.9 F 99 16 124/65 90 L 06/24/20 13:32 87 L 06/24/20 11:14 98.6 F 93 16 115/61 91 L 06/24/20 10:03 89 18 95 06/24/20 07:11 98.0 F 85 16 134/73 100 06/24/20 06:55 95 18 96 Pulse Ox 06/24/20 17:19 06/24/20 15:09 06/24/20 13:32 85 L 06/24/20 11:14 06/24/20 10:03 06/24/20 07:11 06/24/20 06:55 Weight Admit Weight 195 lb Weight 222 lb 3.615 oz Most Recent Monitor Data Heart Rate from ECG 92 NIBP 119/85 NIBP BP-Mean 96 Respiration from ECG 22 SpO2 94 I&O: 06/23/20 06/24/20 06/25/20 06:59 06:59 06:59 Intake Total 685 1312 930 Output Total 2377 9961 4890 Balance -1690 -3763 -520 Result Diagrams: 06/24/20 04:49 06/24/20 04:49 Hospitalist ROS - Medication Medications: Active Medications Generic Name Dose Route Start Last Admin Trade Name Freq PRN Reason Stop Dose Admin Acetaminophen 650 mg 06/03/20 16:52 06/07/20 17:51 Tylenol PO 650 mg Q4H PRN Administration Headache/Fever or Pain Albuterol/Ipratropium 3 ml 06/20/20 18:30 06/24/20 17:19 Duoneb NEB 3 ml [id number] SHORTY Administration Atorvastatin Calcium 20 mg 06/02/20 21:00 06/23/20 20:51 Lipitor PO 20 mg HS SHORTY Administration Budesonide 0.5 mg 06/19/20 18:30 06/24/20 17:19 Pulmicort Neb Solution INH 0.5 mg BID-RT SHORTY Administration Cholecalciferol 800 units 06/07/20 09:00 06/24/20 08:53 Vitamin D PO 800 units DAILY SHORTY Administration Enoxaparin Sodium 30 mg 06/20/20 09:00 06/24/20 08:59 Lovenox SC 30 mg 0900 SHORTY Administration Fentanyl 50 mcg 06/02/20 10:54 06/02/20 14:34 Sublimaze SLOW IVP 50 mcg Q30M PRN Administration Severe breakthrough pain Ferrous Gluconate 324 mg 06/03/20 21:00 06/24/20 08:55 Fergon PO 324 mg BID SH[facility] Administration Fluticasone Propionate 0 gm 06/20/20 09:00 06/24/20 08:55 Flonase Nasal [place] NASAL 1 spr DAILY [facility] Administration Gabapentin 100 mg 06/02/20 21:00 06/24/20 08:54 Neurontin PO 100 mg BID SH[facility] Administration Guaifenesin 600 mg 06/22/20 21:00 06/24/20 08:55 Mucinex PO 600 mg Q12HR SHORTY Administration Meropenem 1 gm/ Device 50 mls @ 100 mls/hr 06/12/20 12:00 06/24/20 12:40 IVPB 50 mls 0000,1200 SH[facility] Administration Furosemide 100 mg/ 100 mls @ 10 mls/hr 06/23/20 13:51 06/24/20 12:40 Miscellaneous Medication 1 IVPB 100 mls each/ Sodium Chloride INF SHORTY Administration Vancomycin HCl 250 mg/ Sodium 100 mls @ 100 mls/hr 06/24/20 16:00 06/24/20 16 :22 Chloride IVPB 100 mls 1600 SHORTY Administration Iron/Minerals/Multivitamins 1 tab 06/04/20 09:00 06/24/20 08:55 Theragran M PO 1 tab DAILY [facility] Administration Magnesium Oxide 400 mg 06/11/20 09:00 06/24/20 08:53 Magnesium Oxide PO 400 mg DAILY [facility] Administration Metolazone 5 mg 06/18/20 08:30 06/24/20 08:53 Zaroxolyn PO 06/24/20 23:59 5 mg 0830 SHORTY Administration Morphine Sulfate 4 mg 06/02/20 10:54 06/03/20 11:58 Morphine SLOW IVP 4 mg Q2H PRN Administration Severe Pain (7-10) Pantoprazole Sodium 40 mg 06/02/20 21:00 06/24/20 08:55 Protonix PO 40 mg BID SHORT[facility] Administration Senna/Docusate Sodium 2 tab 06/03/20 21:00 06/24/20 09:07 Senokot S PO Not Given BID SHORTY Tamsulosin HCl 0.4 mg 06/03/20 09:00 06/24/20 08:54 Flomax PO 0.4 mg DAILY [facility] Administration Hosp A/P - Plan - Exam General Appearance: awake alert, NAD ENT: normocephalic atraumatic Neck: supple, no JVD Respiratory: normal chest expansion, no tachypnea Cardiovascular: RRR, S1S2 noted. no murmur. Gastrointestinal: soft Extremities: 2+ LE edema Neurological: cranial nerve grossly intact, no new deficit Assessment and Plan: This is an 79 year old male with past medical history of multiple hip surgeries presenting with left thigh and hip pain Acute diastolic heart failure secondary to pulmonary edema --ECHO 06/03 showed severely elevated pulm artery pressure . Chest X ray shows widespread interstitial reticulonodular prominence --Cont IV diuresis with Lasix gtt and Zaroxolyn. S/p Albumin, which helped augment diuresis. Follow renal function --Low sodium diet, maintain neg fluid balance. --Replete lytes prn --Pt is consistently having neg fluid balance for the last several days; but wt surprisingly remains the same. Edema improved. --Cont current mgt, and consider transition to oral diuretic over the weekend per cardiology NNEKA/CKD 4 - likely d/t cardiorenal syndrome --Cont IV diuresis with Lasix gtt, renal function stable. s/p IV Albumin x 8 doses, urine output improved. Maintain neg fluid balance --Cr stable. Good urine output, weight went down. Cont current mgt. LE edema has improved. --cont Fluid restriction, monitor I&O and daily weight. Nephrology is following. Acute hypoxic respiratory failure --secondary to fluid retention. Wean O2 as aurea. cont breathing treatments. Add Pulmicort nebs. IV diuresis as above --Appreciate Dr. Shipman's input, pt is well-known to him. Scrotal swelling/LE edema - from fluid overload --testicular ultrasound showed possible cellulitis. CT abdomen showed edema, no air or gas. Urology consulted, thought no signs of Eladia's and from fluid --continue lasix drip as above, legs elevation. --Supportive cares. Pt is on IV abx --improved Left thigh and hip pain s/p total hip arthroplasty complicated with infection, wound culture positive for Morganella morganii --Wound cultures growing Morganella Morganii. Cont IV abx with Vanc and Meropenem until end of June as per ID Anemia of chronic disease superimposed with blood loss anemia, and iron def anemia --possibly blood loss related from surgery. s/p blood transfusions. s/p IV Venofer --Transfuse another unit to keep Hb>8. ASA was discontinued and Lovenox dosage adjusted by cardiology --Pt had GI workup in the past. No evidence of acute bleeding --Monitor H/H Hypocalcemia - possibly from vitamin D deficiency --resolved, - started on vitamin D supplementation given slightly low levels of 23 Physical deconditioning --continue PT and OT. Likely need rehab upon discharge
--- NOTE | 2020-06-24 18:42 | PRG ---
DATE OF SERVICE: 06/24/2020 SUBJECTIVE: Mr. Mart continues to do well. He is resting comfortably this afternoon, in no distress. OBJECTIVE: VITAL SIGNS: He is afebrile. Heart rates in 80s, respiratory rate 20, oximetry is 94, blood pressure 124/65. LUNGS: He is not wheezing. IMPRESSION: 1. Chronic obstructive pulmonary disease, clinically stable at this time. 2. Diastolic heart failure. 3. Chronic kidney disease. 4. Anemia with normal mean corpuscular volume. Renal function is improved. Intake and output are still negative and even with a negative diuresis at 3763. His creatinine is improved. We will continue following, but probably see him less frequently. Job ID: [id number]
[2020-06-24] MEDS: Atorvastatin Calcium 20 MG TAB PO SCH (20:15)
[2020-06-24] MEDS: Acetaminophen 325 MG TAB PO PRN (20:15)
[2020-06-24] MEDS: traMADol HCl 50 MG TAB PO PRN (20:15)
[2020-06-25] MEDS: MEROPENEM 1 GM/50 ML 1 GM in Premix Bag 1 BAG IVPB SCH ×2 (00:31→11:34)
[2020-06-25 05:39] LABS: Hemoglobin 8.5 g/dL (14.0-18.0); Mean Corpuscular HGB CONC 29.8 g/dL (32.0-36.0); Mean Corpuscular Hemoglobin 26.6 pg (27.0-31.0); Mean Corpuscular Volume 89.3 fL (78.0-98.0); Mean Platelet Volume 9.3 fL (7.4-10.4); Platelet Count 310 thou/uL (130-400); RBC Distribution Width 19.3 % (11.5-14.5); White Blood Cell (WBC) Count 12.5 thou/uL (4.8-10.8)
[2020-06-25 06:02] LABS: Anion Gap 15 mmol/L (10-20); BUN (Urea Nitrogen) 91 mg/dL (8.4-25.7); Calc. Creatinine Clearance 35 mL/min (70-130); Calcium 8.1 mg/dL (7.8-10.44); Carbon Dioxide 29 mmol/L (23-31); Chloride 100 mmol/L (98-107); Estimated GFR-MDRD 27; Glucose 99 mg/dL (83-110); Potassium 3.3 mmol/L (3.5-5.1); Sodium 141 mmol/L (136-145)
[2020-06-25] MEDS: Budesonide 0.5 MG/2 ML NEB INH SCH ×2 (06:38→19:59)
[2020-06-25] MEDS: Furosemide 100 MG, Admixture Fee 1 EACH in Sodium Chloride 0.9% 90 ML IVPB SCH ×2 (08:48→19:11)
[2020-06-25] MEDS: Magnesium Oxide 400 MG TAB PO SCH (08:49)
[2020-06-25] MEDS: Enoxaparin Sodium 30 MG/0.3 ML SYRINGE SC SCH (08:49)
[2020-06-25] MEDS: Cholecalciferol (Vitamin D3) 400 UNITS TAB PO SCH (08:49)
[2020-06-25] MEDS: Gabapentin 100 MG CAP PO SCH ×2 (08:49→21:04)
[2020-06-25] MEDS: guaiFENesin ER 600 MG TAB PO SCH ×2 (08:49→21:03)
[2020-06-25] MEDS: Fluticasone Propionate Nasal Spray 16 gm Bottle NASAL SCH (08:49)
[2020-06-25] MEDS: Tamsulosin HCl 0.4 MG CAP PO SCH (08:50)
[2020-06-25] MEDS: Multivitamin W/ Minerals 1 TAB PO SCH (08:50)
[2020-06-25] MEDS: Senokot S 8.6-50 MG TAB PO SCH ×2 (08:50→21:12)
[2020-06-25] MEDS: Ferrous Gluconate 324 MG TAB PO SCH ×2 (08:50→21:03)
[2020-06-25] MEDS ORDERED: Potassium Chloride 20 MEQ TAB PO SCH ×3 (11:30→18:00)
--- NOTE | 2020-06-25 12:55 | PDOC.HOSPP ---
- Subjective Encounter Date: 06/25/20 Subjective: The patient was seen and examined. He is feeling better today. His lower extremity swelling has improved significantly since I last saw him. - Objective Vital Signs & Weight: Vital Signs (12 hours) Temp Pulse Resp BP BP Pulse Ox Pulse Ox 06/25/20 11:57 90 L 06/25/20 11:16 98.2 F 95 16 136/63 90 L 06/25/20 09:48 86 14 95 06/25/20 07:24 98.3 F 96 16 138/69 90 L 06/25/20 06:36 94 93 L 06/25/20 04:20 98.6 F 82 20 122/86 92 L 06/25/20 02:37 85 12 97 06/25/20 02:35 85 12 97 Pulse Ox 06/25/20 11:57 85 L 06/25/20 11:16 06/25/20 09:48 06/25/20 07:24 06/25/20 06:36 06/25/20 04:20 06/25/20 02:37 06/25/20 02:35 Weight Admit Weight 195 lb Weight 212 lb 11.937 oz Most Recent Monitor Data Heart Rate from ECG 92 NIBP 119/85 NIBP BP-Mean 96 Respiration from ECG 22 SpO2 94 I&O: 06/24/20 06/25/20 06/26/20 06:59 06:59 06:59 Intake Total 1312 1300 250 Output Total 5076 2550 Balance -0323 -1451 250 Result Diagrams: 06/25/20 05:20 06/25/20 05:20 Hospitalist ROS - Medication Medications: Active Medications Generic Name Dose Route Start Last Admin Trade Name Freq PRN Reason Stop Dose Admin Acetaminophen 650 mg 06/03/20 16:52 06/24/20 20:15 Tylenol PO 650 mg Q4H PRN Administration Headache/Fever or Pain Albuterol/Ipratropium 3 ml 06/20/20 18:30 06/25/20 09:48 Duoneb NEB 3 ml [id number] SHORTY Administration Atorvastatin Calcium 20 mg 06/02/20 21:00 06/24/20 20:15 Lipitor PO 20 mg HS SHORTY Administration Budesonide 0.5 mg 06/19/20 18:30 06/25/20 06:38 Pulmicort Neb Solution INH 0.5 mg BID-RT SHORTY Administration Cholecalciferol 800 units 06/07/20 09:00 06/25/20 08:49 Vitamin D PO 800 units DAILY SHORTY Administration Enoxaparin Sodium 30 mg 06/20/20 09:00 06/25/20 08:49 Lovenox SC 30 mg 0900 SHORTY Administration Fentanyl 50 mcg 06/02/20 10:54 06/02/20 14:34 Sublimaze SLOW IVP 50 mcg Q30M PRN Administration Severe breakthrough pain Ferrous Gluconate 324 mg 06/03/20 21:00 06/25/20 08:50 Fergon PO 324 mg BID SHORTY Administration Fluticasone Propionate 0 gm 06/20/20 09:00 06/25/20 08:49 Flonase Nasal [place] NASAL 2 spr DAILY SHORTY Administration Gabapentin 100 mg 06/02/20 21:00 06/25/20 08:49 Neurontin PO 100 mg BID SHORTY Administration Guaifenesin 600 mg 06/22/20 21:00 06/25/20 08:49 Mucinex PO 600 mg Q12HR SHORTY Administration Meropenem 1 gm/ Device 50 mls @ 100 mls/hr 06/12/20 12:00 06/25/20 11:34 IVPB 50 mls 0000,1200 SHORTY Administration Furosemide 100 mg/ 100 mls @ 10 mls/hr 06/23/20 13:51 06/25/20 08:48 Miscellaneous Medication 1 IVPB 100 mls each/ Sodium Chloride INF SHORTY Administration Vancomycin HCl 250 mg/ Sodium 100 mls @ 100 mls/hr 06/24/20 16:00 06/24/20 16 :22 Chloride IVPB 100 mls 1600 SHORTY Administration Iron/Minerals/Multivitamins 1 tab 06/04/20 09:00 06/25/20 08:50 Theragran M PO 1 tab DAILY SHORTY Administration Magnesium Oxide 400 mg 06/11/20 09:00 06/25/20 08:49 Magnesium Oxide PO 400 mg DAILY SHORTY Administration Morphine Sulfate 4 mg 06/02/20 10:54 06/03/20 11:58 Morphine SLOW IVP 4 mg Q2H PRN Administration Severe Pain (7-10) Pantoprazole Sodium 40 mg 06/02/20 21:00 06/25/20 08:49 Protonix PO 40 mg BID SHORTY Administration Potassium Chloride 40 meq 06/25/20 11:30 06/25/20 11:34 K-Dur PO 06/25/20 14:00 40 meq NOW SHORTY Administration Senna/Docusate Sodium 2 tab 06/03/20 21:00 06/25/20 08:50 Senokot S PO Not Given BID SHORTY Tamsulosin HCl 0.4 mg 06/03/20 09:00 06/25/20 08:50 Flomax PO 0.4 mg DAILY SHORTY Administration Tramadol HCl 50 mg 06/18/20 17:00 06/24/20 20:15 Ultram PO 50 mg Q12H PRN Administration Mild Pain (1-3) - Exam General Appearance: awake alert ENT: normocephalic atraumatic Neck: supple, no JVD Respiratory: normal chest expansion, normal percussion, rhonchi Gastrointestinal: soft Extremities: 1+ LE edema 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 Code(s): T84.59XA - INFECT/INFLM REACTION DUE TO OTH INTERNAL JOINT PROSTH, INIT ; Z96.649 - PRESENCE OF UNSPECIFIED ARTIFICIAL HIP JOINT Status: Acute (4) BPH (benign prostatic hyperplasia) Code(s): N40.0 - BENIGN PROSTATIC HYPERPLASIA WITHOUT LOWER URINRY TRACT SYMP Status: Chronic Qualifiers: (5) CKD (chronic kidney disease) stage 3, GFR 30-59 ml/min Code(s): N18.3 - CHRONIC KIDNEY DISEASE, STAGE 3 (MODERATE) Status: Chronic (6) HTN (hypertension) Code(s): I10 - ESSENTIAL (PRIMARY) HYPERTENSION Status: Chronic Qualifiers: - Plan This is an 79 year old male with past medical history of multiple hip surgeries presenting with left thigh and hip pain Left thigh and hip pain 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 On vanc and meropenem. WBC is normal. Continue antibiotics through the end of June per Dr. Beaver Acute diastolic heart failure secondary to pulmonary edema - ECHO 8/14 showed severely elevated pulm artery pressure . Chest X ray shows widespread interstitial reticulonodular prominence -Was on IV Lasix twice daily and metolazone per cardiology. Transitioned to lasix drip 06/09. Continue current lasix drip. Cardiology will add another dose of metolazone today Scrotal swelling/edema - from fluid overload - testicular ultrasound showed possible cellulitis. CT abdomen showed edema, no air or gas. Urology consulted, thought no signs of Eladia's and from fluid - continue lasix drip NNEKA - likely cardiorenal - creatinine has gone up to 1.96. On lasix drip, per cardiology give metolazone and recheck creatinine tomorrow #Anemia - possibly blood loss related from surgery. He received blood transfusion on . Globin 8.3 Hypocalcemia - possibly from vitamin D deficiency - resolved, - started on vitamin D supplementation given slightly low levels of 23 Physical deconditioning - continue PT and OT 06/11: The patient is still significantly edematous. He is tolerating Lasix drip without worsening creatinine level. I will continue that since we are achieving a negative fluid balance of about 1 L/day. 06/12: Lower extremity edema is not showing much improvement despite diuresis. His urine output is adequate with Lasix, however, his oral intake is also significant. We will limit his intake of fluids to 1400 cc. 06/13: There is slight improvement in the lower extremity edema. Stricter fluid restriction was implemented yesterday. Additional doses of Lasix were given today in addition to metolazone. Creatinine level appears to be stable. I have consulted nephrology to assist with diuresis given the altered kidney function. Continue IV antibiotics per ID recommendations. Continue PT and OT. I have asked nursing staff to use standing scale for weight measures for better accuracy. 06/14: Apparently, the patient was not on low-salt diet. This was implemented today in addition to fluid restriction. Remains on Lasix drip. Additional dose was given with albumin and blood transfusions given his anemia and hypoalbuminemia. Continue metolazone daily per nephrology. Daily BMP. 06/15: Negative fluid balance over the past 24 hours. Continue fluid restriction and low-salt diet. Continue Lasix drip. He was given a dose of metolazone today. He received 1 unit of packed RBCs yesterday and his hemoglobin level raised accordingly. Continue to monitor H&H. 06/17: The patient is volume overload is improving in his lower extremity edema is decreasing. He was short of breath and wheezing yesterday but that has improved with nebulizer treatments and steroids. Lasix drip dose was increased. He remains on metolazone daily. His kidney function is stable. H&H is stable. 06/25: The patient's generalized edema has improved significantly since last week. We should be able to travel diuresis him over the weekend and then plan to discharge him. Continue PT and OT. His creatinine level stable. Continue Lasix and metolazone. Continue IV antibiotics through the PICC line.
--- NOTE | 2020-06-25 13:48 | PRG ---
DATE OF SERVICE: 06/25/2020 SUBJECTIVE: [place] has no complaints. He says he feels a little bit better every day. He is cooperating with physical therapy. OBJECTIVE: VITAL SIGNS: He is afebrile. Heart rate is 95, respiratory rate 16, oximetry is on nasal cannula, blood pressure 136/63. LUNGS: Clear. HEART: Regular rhythm. ABDOMEN: Soft. He is still on the Lasix drip. LABORATORY DATA: White count 12.5, hemoglobin 8.5, platelets 310,000. Electrolytes are normal. Creatinine is 2.3, BUN 91. Intake and outputs -2400. He is now -6 L over the last 4 days. IMPRESSION: 1. Diastolic heart failure. 2. Chronic obstructive pulmonary disease. 3. Status post multiple hip surgeries on IV antibiotics. We will continue to follow. Job ID: [id number]
--- NOTE | 2020-06-25 13:51 | PRG ---
DATE OF SERVICE: 06/25/2020 SUBJECTIVE: Patient was seen and examined at bedside and overnight events noted. Patient denies any shortness of breath or chest pain or palpitation. No history of nausea or vomiting or diarrhea or fever or chills or cramps. OBJECTIVE: GENERAL: This is a well-built male, in no apparent distress. VITAL SIGNS: Temperature 98.2. Heart rate 95. Respiratory rate 16. Blood pressure 136/63. HEENT: Atraumatic, normocephalic. Oral mucosa is moist NECK: Supple. CARDIOVASCULAR: S1, S2 heard. Rate and rhythm regular. RESPIRATORY: Clear to auscultation. GASTROINTESTINAL: Abdomen is soft. MUSCULOSKELETAL: No tenderness. 1+ edema. DERMATOLOGIC: No skin rash. NEUROLOGIC: Alert and awake and oriented X3. No focal neurologic deficits. Moving all the extremities. PSYCHIATRIC: Mood and affect normal. LABORATORY DATA: creatinine is 2.3, potassium 3.3. ASSESSMENT AND PLAN: 1. Acute kidney injury on chronic kidney disease, stage 4, stable. The patient is tolerating diuresis with stable renal function. We will continue to monitor. 2. Hypokalemia. We will give an extra dose today. 3. Edema, on diuretics. 4. Anemia of chronic disease. 5. History of hypertension. Monitor renal function. We will continue diuresis. So far, he is tolerating renal function, we will continue to monitor. Monitor electrolytes. Job ID: [id number]
[2020-06-25] MEDS: Vancomycin HCl 250 MG in Sodium Chloride 0.9% 100 ML IVPB SCH (15:45)
[2020-06-25] MEDS: Atorvastatin Calcium 20 MG TAB PO SCH (21:04)
[2020-06-26] MEDS: MEROPENEM 1 GM/50 ML 1 GM in Premix Bag 1 BAG IVPB SCH ×3 (00:51→23:53)
[2020-06-26 05:32] LABS: Hemoglobin 8.6 g/dL (14.0-18.0); Mean Corpuscular HGB CONC 29.5 g/dL (32.0-36.0); Mean Corpuscular Hemoglobin 26.5 pg (27.0-31.0); Mean Corpuscular Volume 89.8 fL (78.0-98.0); Mean Platelet Volume 9.6 fL (7.4-10.4); Platelet Count 299 thou/uL (130-400); RBC Distribution Width 19.3 % (11.5-14.5); Red Blood Cell (RBC) Count 3.25 mill/uL (4.70-6.10); White Blood Cell (WBC) Count 13.4 thou/uL (4.8-10.8)
[2020-06-26 05:42] LABS: Anion Gap 17 mmol/L (10-20); BUN (Urea Nitrogen) 85 mg/dL (8.4-25.7); Calc. Creatinine Clearance 37 mL/min (70-130); Calcium 8.1 mg/dL (7.8-10.44); Carbon Dioxide 28 mmol/L (23-31); Chloride 99 mmol/L (98-107); Estimated GFR-MDRD 29; Glucose 121 mg/dL (83-110); Potassium 3.7 mmol/L (3.5-5.1); Sodium 140 mmol/L (136-145)
[2020-06-26] MEDS: Furosemide 100 MG, Admixture Fee 1 EACH in Sodium Chloride 0.9% 90 ML IVPB SCH ×2 (05:49→16:32)
[2020-06-26] MEDS: Budesonide 0.5 MG/2 ML NEB INH SCH ×2 (06:48→19:26)
[2020-06-26] MEDS: Multivitamin W/ Minerals 1 TAB PO SCH (08:49)
[2020-06-26] MEDS: Senokot S 8.6-50 MG TAB PO SCH ×2 (08:49→19:47)
[2020-06-26] MEDS: Magnesium Oxide 400 MG TAB PO SCH (08:49)
[2020-06-26] MEDS: guaiFENesin ER 600 MG TAB PO SCH ×2 (08:49→19:47)
[2020-06-26] MEDS: Cholecalciferol (Vitamin D3) 400 UNITS TAB PO SCH (08:49)
[2020-06-26] MEDS: Aspirin 81 mg Enteric Coated Tablet PO SCH (08:49)
[2020-06-26] MEDS: Gabapentin 100 MG CAP PO SCH ×2 (08:49→19:47)
[2020-06-26] MEDS: Ferrous Gluconate 324 MG TAB PO SCH ×2 (08:49→19:46)
[2020-06-26] MEDS: Tamsulosin HCl 0.4 MG CAP PO SCH (08:50)
[2020-06-26] MEDS: Enoxaparin Sodium 30 MG/0.3 ML SYRINGE SC SCH (08:50)
[2020-06-26] MEDS: Fluticasone Propionate Nasal Spray 16 gm Bottle NASAL SCH (08:52)
[2020-06-26] MEDS: Acetaminophen 325 MG TAB PO PRN ×2 (13:11→19:52)
[2020-06-26] MEDS: traMADol HCl 50 MG TAB PO PRN ×2 (13:11→23:51)
[2020-06-26] MEDS ORDERED: Potassium Chloride 20 MEQ TAB PO SCH (13:15)
--- NOTE | 2020-06-26 13:57 | PDOC.HOSPP ---
- Subjective Encounter Date: 06/26/20 Subjective: The patient is feeling better. His lopez bones are now visible on his legs. Edema improved significantly. - Objective Vital Signs & Weight: Vital Signs (12 hours) Temp Pulse Pulse Resp BP BP BP 06/26/20 11:14 98.1 F 93 18 138/54 L 06/26/20 10:30 94 20 06/26/20 09:55 88 137/75 06/26/20 08:52 06/26/20 07:14 98.6 F 84 16 131/75 06/26/20 06:49 97 17 06/26/20 06:48 97 17 06/26/20 05:44 98.4 F 90 20 117/52 L 06/26/20 03:19 06/26/20 03:16 13 Pulse Ox Pulse Ox Pulse Ox 06/26/20 11:14 92 L 06/26/20 10:30 96 06/26/20 09:55 92 L 90 L 06/26/20 08:52 100 06/26/20 07:14 100 06/26/20 06:49 97 06/26/20 06:48 97 06/26/20 05:44 97 06/26/20 03:19 98 06/26/20 03:16 98 Weight Admit Weight 195 lb Weight 218 lb 14.704 oz Most Recent Monitor Data Heart Rate from ECG 92 NIBP 119/85 NIBP BP-Mean 96 Respiration from ECG 22 SpO2 94 I&O: 06/25/20 06/26/20 06/27/20 06:59 06:59 06:59 Intake Total 1300 1430 Output Total 3700 4150 Balance -2400 -5780 Result Diagrams: 06/26/20 04:49 06/26/20 04:49 Hospitalist ROS - Medication Medications: Active Medications Generic Name Dose Route Start Last Admin Trade Name Freq PRN Reason Stop Dose Admin Acetaminophen 650 mg 06/03/20 16:52 06/26/20 13:11 Tylenol PO 650 mg Q4H PRN Administration Headache/Fever or Pain Albuterol/Ipratropium 3 ml 06/20/20 18:30 06/26/20 10:30 Duoneb NEB 3 ml [id number] SHORTY Administration Aspirin 81 mg 06/26/20 09:00 06/26/20 08:49 Ecotrin PO 81 mg DAILY SHORTY Administration Atorvastatin Calcium 20 mg 08/13/20 21:00 06/25/20 21:04 Lipitor PO 20 mg HS SHORTY Administration Budesonide 0.5 mg 06/19/20 18:30 06/26/20 06:48 Pulmicort Neb Solution INH 0.5 mg BID-RT SHORTY Administration Cholecalciferol 800 units 06/07/20 09:00 06/26/20 08:49 Vitamin D PO 800 units DAILY SHORTY Administration Enoxaparin Sodium 30 mg 06/20/20 09:00 06/26/20 08:50 Lovenox SC 30 mg 0900 SHORTY Administration Fentanyl 50 mcg 06/02/20 10:54 06/02/20 14:34 Sublimaze SLOW IVP 50 mcg Q30M PRN Administration Severe breakthrough pain Ferrous Gluconate 324 mg 06/03/20 21:00 06/26/20 08:49 Fergon PO 324 mg BID SHORTY Administration Fluticasone Propionate 0 gm 06/20/20 09:00 06/26/20 08:52 Flonase Nasal [place] NASAL 2 spr DAILY SHORTY Administration Gabapentin 100 mg 06/02/20 21:00 06/26/20 08:49 Neurontin PO 100 mg BID SHORTY Administration Guaifenesin 600 mg 06/22/20 21:00 06/26/20 08:49 Mucinex PO 600 mg Q12HR SHORTY Administration Meropenem 1 gm/ Device 50 mls @ 100 mls/hr 06/12/20 12:00 06/26/20 13:00 IVPB 50 mls 0000,1200 SHORTY Administration Furosemide 100 mg/ 100 mls @ 10 mls/hr 06/23/20 13:51 06/26/20 05:49 Miscellaneous Medication 1 IVPB 100 mls each/ Sodium Chloride INF SHORTY Administration Vancomycin HCl 250 mg/ Sodium 100 mls @ 100 mls/hr 06/24/20 16:00 06/25/20 15 :45 Chloride IVPB 100 mls 1600 SHORTY Administration Iron/Minerals/Multivitamins 1 tab 06/04/20 09:00 06/26/20 08:49 Theragran M PO 1 tab DAILY SHORTY Administration Magnesium Oxide 400 mg 06/11/20 09:00 06/26/20 08:49 Magnesium Oxide PO 400 mg DAILY SHORTY Administration Morphine Sulfate 4 mg 06/02/20 10:54 06/03/20 11:58 Morphine SLOW IVP 4 mg Q2H PRN Administration Severe Pain (7-10) Pantoprazole Sodium 40 mg 06/02/20 21:00 06/26/20 08:49 Protonix PO 40 mg BID SHORTY Administration Potassium Chloride 40 meq 06/26/20 13:15 06/26/20 13:49 K-Dur PO 06/26/20 15:00 40 meq NOW SHORTY Administration Senna/Docusate Sodium 2 tab 06/03/20 21:00 06/26/20 08:49 Senokot S PO 2 tab BID SHORTY Administration Tamsulosin HCl 0.4 mg 06/03/20 09:00 06/26/20 08:50 Flomax PO 0.4 mg DAILY SHORTY Administration Tramadol HCl 50 mg 06/18/20 17:00 06/26/20 13:11 Ultram PO 50 mg Q12H PRN Administration Mild Pain (1-3) - Exam General Appearance: awake alert ENT: normocephalic atraumatic Neck: supple, no JVD Respiratory: normal chest expansion, no tachypnea, rhonchi Gastrointestinal: soft Neurological: cranial nerve grossly intact, no focal deficits Hosp A/P (1) Acute on chronic diastolic (congestive) heart failure Code(s): I50.33 - ACUTE ON CHRONIC DIASTOLIC (CONGESTIVE) HEART FAILURE Status : Acute (2) Atrial fibrillation Code(s): I48.91 - UNSPECIFIED ATRIAL FIBRILLATION Status: Chronic Qualifiers: (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 Code(s): T84.59XA - INFECT/INFLM REACTION DUE TO OTH INTERNAL JOINT PROSTH, INIT ; Z96.649 - PRESENCE OF UNSPECIFIED ARTIFICIAL HIP JOINT Status: Acute (4) BPH (benign prostatic hyperplasia) Code(s): N40.0 - BENIGN PROSTATIC HYPERPLASIA WITHOUT LOWER URINRY TRACT SYMP Status: Chronic Qualifiers: (5) CKD (chronic kidney disease) stage 3, GFR 30-59 ml/min Code(s): N18.3 - CHRONIC KIDNEY DISEASE, STAGE 3 (MODERATE) Status: Chronic (6) HTN (hypertension) Code(s): I10 - ESSENTIAL (PRIMARY) HYPERTENSION Status: Chronic Qualifiers: - Plan This is an 79 year old male with past medical history of multiple hip surgeries presenting with left thigh and hip pain Left thigh and hip pain s/p total hip arthroplasty POD4 secondary to Morganella morganii infection Acute diastolic heart failure secondary to pulmonary edema Scrotal swelling/edema - from fluid overload NNEKA - likely cardiorenal #Anemia Hypocalcemia - Physical deconditioning /: The patient's generalized edema has improved significantly since last week. DC lasix drip tomorrow. Continue Metolazone. Continue IV antibiotics through the PICC line. encourage ambulation.
--- NOTE | 2020-06-26 14:18 | PRG ---
DATE OF SERVICE: 06/26/2020 SUBJECTIVE: Patient was seen and examined at bedside and overnight events noted. Patient denies any shortness of breath or chest pain or palpitation. No history of nausea or vomiting or diarrhea or fever or chills or cramps. OBJECTIVE: GENERAL: This is a well-built male, in no apparent distress. VITAL SIGNS: Temperature 98.1. Heart rate 93. Respiratory rate 18. Blood pressure 138/54. HEENT: Atraumatic, normocephalic. Oral mucosa is moist NECK: Supple. CARDIOVASCULAR: S1, S2 heard. Rate and rhythm regular. RESPIRATORY: Clear to auscultation. GASTROINTESTINAL: Abdomen is soft. MUSCULOSKELETAL: No tenderness. No edema. DERMATOLOGIC: No skin rash. NEUROLOGIC: Alert and awake and oriented X3. No focal neurologic deficits. Moving all the extremities. PSYCHIATRIC: Mood and affect normal. LABORATORY DATA: Potassium 3.7, BUN is 85, creatinine is 2.1. ASSESSMENT AND PLAN: 1. Acute kidney injury on chronic kidney disease, stage 4. Renal function remains stable despite diuresis. Continue dialysis and close monitoring of renal function. 2. Hypokalemia, replace. 3. Edema. 4. Anemia of chronic disease. 5. Hypertension. We will give another dose of potassium today and monitor labs. Job ID: [id number]
[2020-06-26 15:54] LABS: Vancomycin, Trough 19.4 ug/mL
[2020-06-26] MEDS: Vancomycin HCl 250 MG in Sodium Chloride 0.9% 100 ML IVPB SCH (16:41)
[2020-06-26] MEDS: Atorvastatin Calcium 20 MG TAB PO SCH (19:46)
[2020-06-26] MEDS: diphenhydrAMINE 25 MG CAP PO PRN (23:51)
[2020-06-27] MEDS: Furosemide 100 MG, Admixture Fee 1 EACH in Sodium Chloride 0.9% 90 ML IVPB SCH (05:02)
[2020-06-27 05:10] LABS: Hemoglobin 9.1 g/dL (14.0-18.0); Mean Corpuscular HGB CONC 30.4 g/dL (32.0-36.0); Mean Corpuscular Hemoglobin 27.2 pg (27.0-31.0); Mean Corpuscular Volume 89.7 fL (78.0-98.0); Mean Platelet Volume 9.1 fL (7.4-10.4); Platelet Count 311 thou/uL (130-400); RBC Distribution Width 18.8 % (11.5-14.5); Red Blood Cell (RBC) Count 3.33 mill/uL (4.70-6.10); White Blood Cell (WBC) Count 15.7 thou/uL (4.8-10.8)
[2020-06-27 05:28] LABS: Anion Gap 16 mmol/L (10-20); BUN (Urea Nitrogen) 84 mg/dL (8.4-25.7); Calc. Creatinine Clearance 29 mL/min (70-130); Calcium 8.2 mg/dL (7.8-10.44); Carbon Dioxide 29 mmol/L (23-31); Chloride 101 mmol/L (98-107); Estimated GFR-MDRD 27; Glucose 106 mg/dL (83-110); Potassium 3.5 mmol/L (3.5-5.1); Sodium 142 mmol/L (136-145)
[2020-06-27] MEDS: Budesonide 0.5 MG/2 ML NEB INH SCH ×2 (06:29→18:17)
[2020-06-27] MEDS: diphenhydrAMINE 25 MG CAP PO PRN ×2 (09:59→20:01)
[2020-06-27] MEDS: Enoxaparin Sodium 30 MG/0.3 ML SYRINGE SC SCH (09:59)
[2020-06-27] MEDS: Senokot S 8.6-50 MG TAB PO SCH ×2 (10:00→20:02)
[2020-06-27] MEDS: Furosemide 20 MG TAB PO SCH ×2 (10:00→13:27)
[2020-06-27] MEDS: Multivitamin W/ Minerals 1 TAB PO SCH (10:01)
[2020-06-27] MEDS: Magnesium Oxide 400 MG TAB PO SCH (10:01)
[2020-06-27] MEDS: Ferrous Gluconate 324 MG TAB PO SCH ×2 (10:01→20:01)
[2020-06-27] MEDS: guaiFENesin ER 600 MG TAB PO SCH ×2 (10:03→20:02)
[2020-06-27] MEDS: Gabapentin 100 MG CAP PO SCH ×2 (10:03→20:02)
[2020-06-27] MEDS: Tamsulosin HCl 0.4 MG CAP PO SCH (10:03)
[2020-06-27] MEDS: Aspirin 81 mg Enteric Coated Tablet PO SCH (10:03)
[2020-06-27] MEDS: Cholecalciferol (Vitamin D3) 400 UNITS TAB PO SCH (10:05)
[2020-06-27] MEDS: Fluticasone Propionate Nasal Spray 16 gm Bottle NASAL SCH (10:09)
--- NOTE | 2020-06-27 11:12 | PDOC.HOSPP ---
- Subjective Encounter Date: 06/27/20 Subjective: The patient was complaining of an itchy rash over his trunk today. - Objective Vital Signs & Weight: Vital Signs (12 hours) Temp Pulse Resp BP BP Pulse Ox 06/27/20 10:38 89 24 H 96 06/27/20 07:25 98.2 F 103 H 14 117/63 92 L 06/27/20 06:29 97 97 06/27/20 04:58 98.3 F 92 18 99/58 L 97 06/27/20 02:50 98 06/27/20 02:48 95 06/26/20 23:40 98.8 F 89 20 110/59 L 98 06/26/20 23:11 98 Weight Admit Weight 195 lb Weight 179 lb 10.828 oz Most Recent Monitor Data Heart Rate from ECG 92 NIBP 119/85 NIBP BP-Mean 96 Respiration from ECG 22 SpO2 94 I&O: 06/26/20 06/27/20 06/28/20 06:59 06:59 06:59 Intake Total 1430 1624 Output Total 4150 3250 Balance -4402 -9469 Result Diagrams: 06/27/20 04:46 06/27/20 04:46 Hospitalist ROS - Medication Medications: Active Medications Generic Name Dose Route Start Last Admin Trade Name Freq PRN Reason Stop Dose Admin Acetaminophen 650 mg 06/03/20 16:52 06/26/20 19:52 Tylenol PO 650 mg Q4H PRN Administration Headache/Fever or Pain Albuterol/Ipratropium 3 ml 06/20/20 18:30 06/27/20 10:38 Duoneb NEB 3 ml [id number] SHORTY Administration Aspirin 81 mg 06/26/20 09:00 06/27/20 10:03 Ecotrin PO 81 mg DAILY SHORTY Administration Atorvastatin Calcium 20 mg 06/02/20 21:00 06/26/20 19:46 Lipitor PO 20 mg HS SHORTY Administration Budesonide 0.5 mg 06/19/20 18:30 06/27/20 06:29 Pulmicort Neb Solution INH 0.5 mg BID-RT SHORTY Administration Cholecalciferol 800 units 06/07/20 09:00 06/27/20 10:05 Vitamin D PO 800 units DAILY SHORTY Administration Diphenhydramine HCl 25 mg 06/03/20 16:52 06/27/20 09:59 Benadryl PO 25 mg Q6H PRN Administration Itching Enoxaparin Sodium 30 mg 06/20/20 09:00 06/27/20 09:59 Lovenox SC 30 mg 0900 SHORTY Administration Fentanyl 50 mcg 06/02/20 10:54 06/02/20 14:34 Sublimaze SLOW IVP 50 mcg Q30M PRN Administration Severe breakthrough pain Ferrous Gluconate 324 mg 06/03/20 21:00 06/27/20 10:01 Fergon PO 324 mg BID SHORTY Administration Fluticasone Propionate 0 gm 06/20/20 09:00 06/27/20 10:09 Flonase Nasal [place] NASAL 1 spr DAILY SHORTY Administration Furosemide 40 mg 06/27/20 09:00 06/27/20 10:00 Lasix PO 40 mg 0900,1400 SHORTY Administration Gabapentin 100 mg 06/02/20 21:00 06/27/20 10:03 Neurontin PO 100 mg BID SHORTY Administration Guaifenesin 600 mg 06/22/20 21:00 06/27/20 10:03 Mucinex PO 600 mg Q12HR SHORTY Administration Iron/Minerals/Multivitamins 1 tab 06/04/20 09:00 06/27/20 10:01 Theragran M PO 1 tab DAILY SHORTY Administration Magnesium Oxide 400 mg 06/11/20 09:00 06/27/20 10:01 Magnesium Oxide PO 400 mg DAILY SHORTY Administration Morphine Sulfate 4 mg 06/02/20 10:54 06/03/20 11:58 Morphine SLOW IVP 4 mg Q2H PRN Administration Severe Pain (7-10) Pantoprazole Sodium 40 mg 06/02/20 21:00 06/27/20 10:02 Protonix PO 40 mg BID SHORTY Administration Senna/Docusate Sodium 2 tab 06/03/20 21:00 06/27/20 10:00 Senokot S PO 2 tab BID SHORTY Administration Tamsulosin HCl 0.4 mg 06/03/20 09:00 06/27/20 10:03 Flomax PO 0.4 mg DAILY SHORTY Administration Tramadol HCl 50 mg 06/18/20 17:00 06/26/20 23:51 Ultram PO 50 mg Q12H PRN Administration Mild Pain (1-3) - Exam General Appearance: awake alert ENT: normocephalic atraumatic Neck: supple, no JVD Respiratory: no tachypnea, normal percussion Gastrointestinal: soft, non-tender, non-distended, normal bowel sounds Skin - other findings: Macular reticular rash over his back and chest 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 Code(s): T84.59XA - INFECT/INFLM REACTION DUE TO OTH INTERNAL JOINT PROSTH, INIT ; Z96.649 - PRESENCE OF UNSPECIFIED ARTIFICIAL HIP JOINT Status: Acute (4) BPH (benign prostatic hyperplasia) Code(s): N40.0 - BENIGN PROSTATIC HYPERPLASIA WITHOUT LOWER URINRY TRACT SYMP Status: Chronic Qualifiers: (5) CKD (chronic kidney disease) stage 3, GFR 30-59 ml/min Code(s): N18.3 - CHRONIC KIDNEY DISEASE, STAGE 3 (MODERATE) Status: Chronic (6) HTN (hypertension) Code(s): I10 - ESSENTIAL (PRIMARY) HYPERTENSION Status: Chronic Qualifiers: (7) Red man syndrome Code(s): L27.0 - GEN SKIN ERUPTION DUE TO DRUGS AND MEDS TAKEN INTERNALLY Status: Acute - Plan This is an 79 year old male with past medical history of multiple hip surgeries presenting with left thigh and hip pain Left thigh and hip pain s/p total hip arthroplasty secondary to Morganella morganii infection Acute diastolic heart failure secondary to pulmonary edema Scrotal swelling/edema - from fluid overload NNEKA - likely cardiorenal #Anemia Hypocalcemia - Physical deconditioning Generalized edema is improving. Discontinue Lasix drip and start oral Lasix. Continue metolazone. Check BMP in the morning. The patient has developed macular reticular rash that is likely drug-related. Antibiotics were changed to daptomycin and Zosyn by ID. Continue Benadryl as needed. The patient will be discharged to the swing bed tomorrow.
--- NOTE | 2020-06-27 11:28 | PRG ---
DATE OF SERVICE: 06/27/2020 SUBJECTIVE: An 79-year-old gentleman being seen for acute kidney injury. The patient denied nausea, vomiting, or chest pain. OBJECTIVE: GENERAL: On examination, the patient is awake and alert. VITAL SIGNS: Afebrile, pulse 89, breathing at 16, and blood pressure 117/63. HEENT: Head normocephalic and atraumatic. Eyes intact, no ulcers. Nose intact, no ulcers. Ears intact, no ulcers. NECK: Supple. No JVD. CHEST: Symmetrical and clear. CARDIOVASCULAR: Shows S1 and S2, no rub, no murmur. GASTROINTESTINAL: Abdomen is soft, bowel sounds positive. EXTREMITIES: Show no edema or ulcers. SKIN: Shows no rash or petechiae. MUSCULOSKELETAL: Shows no joint swelling or stiffness. GENITOURINARY: Shows no De or CVA tenderness. NEUROLOGIC: Motor intact. Cranial nerves intact. LABORATORY DATA: Hemoglobin 9.1. Creatinine 2.3. ASSESSMENT AND PLAN: 1. Chronic kidney disease, stage 4, stable. 2. Hypertension, stable. 3. Anemia, stable. 4. Congestive heart failure, stable. 5. Edema, stable. Continue Lasix drip. Job ID: [id number]
[2020-06-27] MEDS ORDERED: DAPTOmycin 500 MG in Sodium Chloride 0.9% 100 ML IVPB SCH (12:00)
[2020-06-27] MEDS: DAPTOmycin 500 MG in Sodium Chloride 0.9% 100 ML IVPB SCH (12:12)
[2020-06-27] MEDS: Piperacillin/Tazobactam 2.25 GM in Sodium Chloride 0.9% 100 ML IVPB SCH ×3 (13:26→23:48)
--- NOTE | 2020-06-27 14:14 | RAD ---
PORTABLE CHEST 1 VIEW: DATE: 06/27/2020. TIME: 1:57 PM. HISTORY: Shortness of breath. COMPARISON: 06/21/2020. FINDINGS: The heart size is enlarged. The aorta is tortuous. Left-sided PICC line remains in place. The lung s are expanded. Pulmonary interstitial markings again seen. There are mild patchy alveolar opacitie s most prominent in the right lower lung. No pneumothoraces or large effusions are seen. POS: OFF
--- NOTE | 2020-06-27 16:53 | PRG ---
DATE OF SERVICE: 06/27/2020 SUBJECTIVE: Mr. Mart had developed diffuse macular erythematous area with skin eruption. He is otherwise in the floor back from the [facility]. He is feeling better actually. He still has a De catheter in place and has a PICC line in. OBJECTIVE: VITAL SIGNS: His temperature max 98.8, blood pressure 120/60, heart rate 100, respiratory rate 18, O2 saturation 99% on room air. GENERAL: He was sleeping when I came in. He was easily arousable. Follows commands. A little bit of delusional thinking process from time to time. SKIN: Shows the diffuse erythematous confluent skin eruption with pruritus. No areas of necrosis or blistering. His PICC line site appears okay. The left hip incision is dry. He is not tender to palpation. LUNGS: Symmetric. Clear breath sounds. HEART: S1 and S2. Regular rate. No S3. ABDOMEN: Soft. Not distended or tender. De catheter in place. EXTREMITIES: His plantar responses are flexor. No clonus. NEUROLOGIC: He is awake. He knows his name. He knew where he was. Sometimes, he started talking about unrelated subjects. LABORATORY DATA: White cell count is up to 15.7, hemoglobin 9.1, platelets 311. Creatinine 2.34, which is kind of ranges with what he has been presenting recently, and he had been on vancomycin and meropenem. 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 Now, vancomycin and meropenem associated skin hypersensitivity. It is hard to say which one. We will have to stop both and switch to an alternate combination. We have switched him to daptomycin and Zosyn for now. Job ID: [id number]
[2020-06-27] MEDS: Atorvastatin Calcium 20 MG TAB PO SCH (20:01)
[2020-06-27] MEDS: traMADol HCl 50 MG TAB PO PRN (20:09)
[2020-06-27] MEDS: Acetaminophen 325 MG TAB PO PRN (20:09)
[2020-06-28] MEDS: diphenhydrAMINE 25 MG CAP PO PRN ×2 (04:04→15:49)
[2020-06-28 04:34] LABS: Hemoglobin 9.2 g/dL (14.0-18.0); Mean Corpuscular HGB CONC 30.7 g/dL (32.0-36.0); Mean Corpuscular Hemoglobin 27.2 pg (27.0-31.0); Mean Corpuscular Volume 88.8 fL (78.0-98.0); Mean Platelet Volume 9.3 fL (7.4-10.4); Platelet Count 343 thou/uL (130-400); Red Blood Cell (RBC) Count 3.37 mill/uL (4.70-6.10); White Blood Cell (WBC) Count 23.5 thou/uL (4.8-10.8)
[2020-06-28 04:57] LABS: Anion Gap 19 mmol/L (10-20); BUN (Urea Nitrogen) 80 mg/dL (8.4-25.7); Calc. Creatinine Clearance 27 mL/min (70-130); Calcium 8.1 mg/dL (7.8-10.44); Carbon Dioxide 26 mmol/L (23-31); Chloride 97 mmol/L (98-107); Estimated GFR-MDRD 25; Glucose 96 mg/dL (83-110); Potassium 3.4 mmol/L (3.5-5.1); Sodium 139 mmol/L (136-145)
[2020-06-28] MEDS: Piperacillin/Tazobactam 2.25 GM in Sodium Chloride 0.9% 100 ML IVPB SCH ×4 (05:14→23:33)
[2020-06-28] MEDS: Budesonide 0.5 MG/2 ML NEB INH SCH ×2 (07:24→18:47)
[2020-06-28] MEDS: Tamsulosin HCl 0.4 MG CAP PO SCH (08:24)
[2020-06-28] MEDS: Gabapentin 100 MG CAP PO SCH ×2 (08:24→21:01)
[2020-06-28] MEDS: Multivitamin W/ Minerals 1 TAB PO SCH (08:24)
[2020-06-28] MEDS: Ferrous Gluconate 324 MG TAB PO SCH ×2 (08:24→21:00)
[2020-06-28] MEDS: Enoxaparin Sodium 30 MG/0.3 ML SYRINGE SC SCH (08:24)
[2020-06-28] MEDS: guaiFENesin ER 600 MG TAB PO SCH ×2 (08:24→21:01)
[2020-06-28] MEDS: Magnesium Oxide 400 MG TAB PO SCH (08:24)
[2020-06-28] MEDS: Furosemide 20 MG TAB PO SCH ×2 (08:25→15:37)
[2020-06-28] MEDS: Cholecalciferol (Vitamin D3) 400 UNITS TAB PO SCH (08:25)
[2020-06-28] MEDS: Senokot S 8.6-50 MG TAB PO SCH ×2 (08:25→21:01)
[2020-06-28] MEDS: Aspirin 81 mg Enteric Coated Tablet PO SCH (08:25)
[2020-06-28] MEDS: Fluticasone Propionate Nasal Spray 16 gm Bottle NASAL SCH (08:26)
[2020-06-28] MEDS ORDERED: Magnesium Sulfate 3 GM in Sodium Chloride 0.9% 100 ML IVPB SCH (08:30)
[2020-06-28] MEDS ORDERED: Potassium Chloride 20 MEQ TAB PO SCH (08:45)
[2020-06-28] MEDS: methylPREDNISolone Sod Succ 40 MG VIAL IVP SCH ×3 (09:15→21:02)
--- NOTE | 2020-06-28 09:48 | PRG ---
DATE OF SERVICE: 06/28/2020 SUBJECTIVE: Mr. Mart's oxygen saturations were lower, sometimes they are in the 80% range. He looks sleepier than before. No chest pain. OBJECTIVE: VITAL SIGNS: Blood pressure is 105/59, pulse is faster at little over 100. LUNGS: Clear. I do not hear any wheezing. CARDIAC: Normal S1 and normal S2. ABDOMEN: Soft and nontender. EXTREMITIES: Only mild edema now. ASSESSMENT: 1. Diastolic heart failure, appears improved. 2. More hypoxemic. 3. Renal function slightly worse and the IV Lasix was stopped yesterday. Creatinine is 2.49. PLAN: We will discuss with Dr. Shipman and Dr. Andres concerning that his oxygen levels have dropped. Job ID: [id number]
[2020-06-28 09:58] LABS: Actual Bicarbonate (HCO3a) 26.5 mEq/L (22-28); Base Excess (BEa) 3.2 mEq/L (-2.0 to +3.0); CO2 Tension 35.7 mmHg (35.0-45.0); Calcium, Ionized (arterial) 1.08 mmol/L (1.12-1.30); Carboxyhemoglobin (COHb) 1.2 gm% (0.0-3.0); Hemoglobin (Hb) 9.6 g/dL (14.0-18.0); O2 Tension (PaO2), arterial 67.5 mmHg (> 60.0); Potassium - ABG Lab 3.35 mmol/L (3.70-5.30); pH, Arterial 7.49 (7.35-7.45)
[2020-06-28 10:00] LABS: Puncture Site RR
--- NOTE | 2020-06-28 11:15 | PRG ---
DATE OF SERVICE: 06/28/2020 SUBJECTIVE: An 79-year-old male, being seen for acute kidney injury. The patient denies any nausea, vomiting, or chest pain. Does complain of breathing. OBJECTIVE: General: The patient is awake and alert. Vital Signs: Afebrile, pulse 73, breathing at 16, blood pressure 105/59. HEENT: Head normocephalic and atraumatic. Eyes intact, no ulcers. Nose intact, no ulcers. Ears intact, no ulcers. Neck: Supple. No JVD. Chest: Symmetrical and clear. Cardiovascular: Shows S1 and S2, no rub, no murmur. Gastrointestinal: Abdomen is soft, bowel sounds positive. Extremities: Show no edema or ulcers. Skin: Shows no rash or petechiae. Musculoskeletal: Shows no joint swelling or stiffness. Genitourinary: Shows no De or CVA tenderness. Neurologic: Motor intact. Cranial nerves intact. LABORATORY DATA: Hemoglobin 9.2, creatinine 2.49. ASSESSMENT AND PLAN: 1. Acute kidney injury on chronic kidney disease stage 4 due to cardiorenal syndrome, on Lasix drip. 2. Hypertension, stable. 3. Hypokalemia, recommend potassium replacement. 4. No indication for dialysis yet. Job ID: [id number]
--- NOTE | 2020-06-28 11:54 | PDOC.HOSPP ---
- Subjective Encounter Date: 06/28/20 Subjective: Patient was seen and examined. He appears to be more short of breath this morning. Auscultation of the chest revealed wheezing bilaterally. - Objective Vital Signs & Weight: Vital Signs (12 hours) Temp Pulse Resp BP BP Pulse Ox 06/28/20 11:06 96 06/28/20 11:05 100 18 06/28/20 11:03 99.5 F 107 H 18 106/60 97 06/28/20 07:24 107 H 20 06/28/20 07:00 98.4 F 108 H 20 134/52 L 96 06/28/20 04:35 98.5 F 100 16 105/59 L 97 06/28/20 02:05 100 16 97 Weight Admit Weight 195 lb Weight 205 lb 7.533 oz Most Recent Monitor Data Heart Rate from ECG 92 NIBP 119/85 NIBP BP-Mean 96 Respiration from ECG 22 SpO2 94 I&O: 06/27/20 06/28/20 06/29/20 06:59 06:59 06:59 Intake Total 1624 3990 Output Total 3250 2575 Balance -1626 1415 Result Diagrams: 06/28/20 04:17 06/28/20 04:17 Hospitalist ROS - Medication Medications: Active Medications Generic Name Dose Route Start Last Admin Trade Name Freq PRN Reason Stop Dose Admin Acetaminophen 650 mg 06/03/20 16:52 06/27/20 20:09 Tylenol PO 650 mg Q4H PRN Administration Headache/Fever or Pain Albuterol/Ipratropium 3 ml 06/20/20 18:30 06/28/20 11:05 Duoneb NEB 3 ml [id number] SHORTY Administration Aspirin 81 mg 06/26/20 09:00 06/28/20 08:25 Ecotrin PO 81 mg DAILY SHORTY Administration Atorvastatin Calcium 20 mg 06/02/20 21:00 06/27/20 20:01 Lipitor PO 20 mg HS SHORTY Administration Budesonide 0.5 mg 06/19/20 18:30 06/28/20 07:24 Pulmicort Neb Solution INH 0.5 mg BID-RT SHORTY Administration Cholecalciferol 800 units 06/07/20 09:00 06/28/20 08:25 Vitamin D PO 800 units DAILY SHORTY Administration Diphenhydramine HCl 25 mg 06/03/20 16:52 06/28/20 04:04 Benadryl PO 25 mg Q6H PRN Administration Itching Enoxaparin Sodium 30 mg 06/20/20 09:00 06/28/20 08:24 Lovenox SC 30 mg 0900 SHORTY Administration Fentanyl 50 mcg 06/02/20 10:54 06/02/20 14:34 Sublimaze SLOW IVP 50 mcg Q30M PRN Administration Severe breakthrough pain Ferrous Gluconate 324 mg 06/03/20 21:00 06/28/20 08:24 Fergon PO 324 mg BID SHORTY Administration Fluticasone Propionate 0 gm 06/20/20 09:00 06/28/20 08:26 Flonase Nasal Jbph[facility] NASAL 1 spr DAILY SHORTY Administration Furosemide 40 mg 06/27/20 09:00 06/28/20 08:25 Lasix PO 40 mg 0900,1400 SHORTY Administration Gabapentin 100 mg 06/02/20 21:00 06/28/20 08:24 Neurontin PO 100 mg BID SHORTY Administration Guaifenesin 600 mg 06/22/20 21:00 06/28/20 08:24 Mucinex PO 600 mg Q12HR SHORTY Administration Piperacillin Sod/Tazobactam 100 mls @ 200 mls/hr 06/27/20 12:00 06/28/20 05: 14 Sod 2.25 gm/ Sodium Chloride IVPB 100 mls Q6HR SHORTY Administration Daptomycin 500 mg/ Sodium 100 mls @ 200 mls/hr 06/27/20 11:00 06/27/20 12:12 Chloride IVPB 100 mls Q48H SHORTY Administration Iron/Minerals/Multivitamins 1 tab 06/04/20 09:00 06/28/20 08:24 Theragran M PO 1 tab DAILY SHORTY Administration Magnesium Oxide 400 mg 06/11/20 09:00 06/28/20 08:24 Magnesium Oxide PO 400 mg DAILY SHORTY Administration Methylprednisolone Sodium Succinate 40 mg 06/28/20 09:00 06/28/20 09:15 Solu-Medrol IVP 40 mg 0300,0900,1500,2100 SHORTY Administration Morphine Sulfate 4 mg 06/02/20 10:54 06/03/20 11:58 Morphine SLOW IVP 4 mg Q2H PRN Administration Severe Pain (7-10) Pantoprazole Sodium 40 mg 06/02/20 21:00 06/28/20 08:25 Protonix PO 40 mg BID SHORTY Administration Senna/Docusate Sodium 2 tab 06/03/20 21:00 06/28/20 08:25 Senokot S PO 2 tab BID SHORTY Administration Tamsulosin HCl 0.4 mg 06/03/20 09:00 06/28/20 08:24 Flomax PO 0.4 mg DAILY SHORTY Administration Tramadol HCl 50 mg 06/18/20 17:00 06/27/20 20:09 Ultram PO 50 mg Q12H PRN Administration Mild Pain (1-3) - Exam General Appearance: awake alert ENT: normocephalic atraumatic Neck: supple, no JVD Heart: RRR Respiratory: rhonchi, tachypneic, wheezes Gastrointestinal: soft, non-tender, non-distended Extremities: 1+ LE edema 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 Code(s): T84.59XA - INFECT/INFLM REACTION DUE TO OTH INTERNAL JOINT PROSTH, INIT ; Z96.649 - PRESENCE OF UNSPECIFIED ARTIFICIAL HIP JOINT Status: Acute (4) BPH (benign prostatic hyperplasia) Code(s): N40.0 - BENIGN PROSTATIC HYPERPLASIA WITHOUT LOWER URINRY TRACT SYMP Status: Chronic Qualifiers: (5) CKD (chronic kidney disease) stage 3, GFR 30-59 ml/min Code(s): N18.3 - CHRONIC KIDNEY DISEASE, STAGE 3 (MODERATE) Status: Chronic (6) HTN (hypertension) Code(s): I10 - ESSENTIAL (PRIMARY) HYPERTENSION Status: Chronic Qualifiers: (7) Red man syndrome Code(s): L27.0 - GEN SKIN ERUPTION DUE TO DRUGS AND MEDS TAKEN INTERNALLY Status: Acute - Plan This is an 79 year old male with past medical history of multiple hip surgeries presenting with left thigh and hip pain Left thigh and hip pain s/p total hip arthroplasty secondary to Morganella morganii infection Acute diastolic heart failure secondary to pulmonary edema Scrotal swelling/edema - from fluid overload NNEKA - likely cardiorenal #Anemia Hypocalcemia - Physical deconditioning Respiratory distress this morning. Evidence of wheezing and air bronchospasms. On corticosteroids and bronchodilators. His lower extremity edema has improved compared to admission. Lasix was changed to oral home yesterday. Creatinine level slightly trending up. The patient has developed macular reticular rash that is likely drug-related. Antibiotics were changed to daptomycin and Zosyn by ID. Continue Benadryl as needed. The rash appears to be better today. Continue to monitor the patient closely.
[2020-06-28] MEDS ORDERED: methylPREDNISolone Sod Succ 40 MG VIAL IVP SCH (12:00)
--- NOTE | 2020-06-28 13:36 | PRG ---
DATE OF SERVICE: 06/28/2020 SUBJECTIVE: Mr. Mart took off his nasal cannula and he is saturating at 75% to 78%, and he does not seem to be in distress, most likely due to the chronic nature of his COPD/hypoxemia. It is very hard to communicate because of his hearing impairment. The patient does not have any headaches. He is not coughing during the examination. No abdominal pain. The patient is voiding with an indwelling catheter. He has a PICC line for access and a peripheral IV access. OBJECTIVE: SKIN: Shows those lesions of the hypersensitivity reaction. Those are more violaceous today compared with the previous days. They have stabilized and I think they are receding a bit. HEENT: His sclerae are white. He has a little bit of blepharitis. Oral cavity is moist. LUNGS: With faint expiratory wheezing distributed in both right and left hemithorax. HEART: S1 and S2, regular rate. ABDOMEN: Soft, not distended. His I and O's have been negative for the past many days. EXTREMITIES: There is no edema in lower extremities. He is able to move all extremities equally. LABORATORY DATA: Sodium 139, creatinine 2.49. White cell count 23.5, hemoglobin 9.2, platelets 343. ASSESSMENT AND DISCUSSION: Chronic renal insufficiency, stage 3 to 4; atrial fibrillation; hypertension; chronic obstructive pulmonary disease, on home O2; hypoxemia; multiple recurring infections following hemiarthroplasty with the latest intervention of total hip replacement as revision. Previous methicillin-resistant Staphylococcus aureus isolated. Now, he has Morganella, which was in broth only and it could be a contaminant or a colonizer, but will have to be treated any ways. He developed this hypersensitivity reaction either to vancomycin or meropenem and the regimen has been switched to Zosyn and daptomycin. He has evidence of volume overload, which is improving with diuresis. The diuresis has probably led to worsening GFR and that will have to be adjusted. Job ID: [id number]
--- NOTE | 2020-06-28 15:12 | PRG ---
DATE OF SERVICE: 06/28/2020 SUBJECTIVE: Mr. Mart is afebrile. OBJECTIVE: VITAL SIGNS: Heart rate is 100, respiratory rate is 18, oximetry is 97 this morning. Blood pressure 106/60. LUNGS: Remarkable for diffuse wheezes. HEART: Regular rhythm. ABDOMEN: Soft. LABORATORY DATA: White count 23.5, hemoglobin 9.2, platelets 343. Sodium 139, potassium 3.4, chloride 97, bicarb 26, BUN 80, creatinine 2.49. Intake and output, positive 1415. Chest x-ray done yesterday shows a hazy infiltrate in the right base. IMPRESSION: Chronic obstructive pulmonary disease exacerbation. Ongoing bronchospasm. Blood gas did not show significant acid-base disorder. His pH is 7.49, CO2 is 35, PO2 is 67. I will repeat a chest x-ray in the morning. Steroids and magnesium ordered. Certainly, set up for hospital-acquired infection. He has diastolic heart failure, on top of that he is extremely deconditioned. What makes him short of breath now would have made him short of breath 2 years ago or even a year ago. Job ID: [id number]
[2020-06-28 18:02] LABS: Hemoglobin 9.1 g/dL (14.0-18.0); Mean Corpuscular HGB CONC 31.1 g/dL (32.0-36.0); Mean Corpuscular Hemoglobin 27.2 pg (27.0-31.0); Mean Corpuscular Volume 87.6 fL (78.0-98.0); Mean Platelet Volume 9.1 fL (7.4-10.4); Platelet Count 325 thou/uL (130-400); RBC Distribution Width 18.9 % (11.5-14.5); Red Blood Cell (RBC) Count 3.32 mill/uL (4.70-6.10); White Blood Cell (WBC) Count 21.7 thou/uL (4.8-10.8)
[2020-06-28 18:03] LABS: Anisocytosis SLIGHT = 6-15 cells (100X) (0-5/hpf); Band 2 % (5-11); Lymphocytes 2 % (21-51); MDiff Complete? YES; Monocytes 1 % (0-10); Neutrophil 95 % (42-75); Ovalocytes SLIGHT = 2-5 cells (100X) (0-1/hpf); Platelet Morphology Comment Appears Adequate; Poikilocytosis SLIGHT = 6-15 cells (100X) (0-5/hpf); Polychromasia MODERATE = 3-4 cells (100X) (0-2/hpf); Schistocytes SLIGHT = 2-5 cells (100X) (0-1/hpf); Spherocytes SLIGHT = 1-5 cells (100X) (None Seen)
[2020-06-28] MEDS: Atorvastatin Calcium 20 MG TAB PO SCH (21:00)
[2020-06-28] MEDS: traMADol HCl 50 MG TAB PO PRN (21:03)
[2020-06-29] MEDS: diphenhydrAMINE 25 MG CAP PO PRN ×2 (01:05→21:01)
[2020-06-29] MEDS: methylPREDNISolone Sod Succ 40 MG VIAL IVP SCH ×4 (03:45→21:01)
[2020-06-29] MEDS: Piperacillin/Tazobactam 2.25 GM in Sodium Chloride 0.9% 100 ML IVPB SCH ×4 (05:41→23:30)
[2020-06-29] MEDS ORDERED: diphenhydrAMINE 50 MG/ML VIAL IVP SCH (06:00)
[2020-06-29 06:03] LABS: Band 13 % (5-11); Hemoglobin 8.5 g/dL (14.0-18.0); Lymphocytes 1 % (21-51); MDiff Complete? YES; Mean Corpuscular HGB CONC 31.2 g/dL (32.0-36.0); Mean Corpuscular Hemoglobin 27.9 pg (27.0-31.0); Mean Corpuscular Volume 89.5 fL (78.0-98.0); Mean Platelet Volume 8.9 fL (7.4-10.4); Neutrophil 86 % (42-75); Platelet Count 317 thou/uL (130-400); Platelet Morphology Comment Appears Adequate; RBC Distribution Width 18.5 % (11.5-14.5); Red Blood Cell (RBC) Count 3.03 mill/uL (4.70-6.10); White Blood Cell (WBC) Count 21.3 thou/uL (4.8-10.8)
[2020-06-29 06:13] LABS: Anion Gap 20 mmol/L (10-20); BUN (Urea Nitrogen) 92 mg/dL (8.4-25.7); Calc. Creatinine Clearance 26 mL/min (70-130); Calcium 8.2 mg/dL (7.8-10.44); Carbon Dioxide 25 mmol/L (23-31); Chloride 96 mmol/L (98-107); Estimated GFR-MDRD 21; Glucose 234 mg/dL (83-110); Potassium 3.9 mmol/L (3.5-5.1); Sodium 137 mmol/L (136-145)
[2020-06-29] MEDS: Budesonide 0.5 MG/2 ML NEB INH SCH ×2 (07:10→18:04)
--- NOTE | 2020-06-29 07:27 | RAD ---
CHEST 1 VIEW: Date: 06/29/2020 INDICATION: 79-year-old male with COPD. COMPARISON: Prior exam dated 06/27/2020. FINDINGS: Left-sided PICC line is stable. Scattered air space opacities throughout both lungs are similar appea ring. Cardiomegaly is similar appearing. Endovascular coil overlying the left heart shadow is similar appearing. No pleural effusion or pneumothorax is evident. Chronic osseous changes are stable. IMPRESSION: Stable exam. POS: BH
[2020-06-29] MEDS: Magnesium Oxide 400 MG TAB PO SCH (08:37)
[2020-06-29] MEDS: Furosemide 20 MG TAB PO SCH (08:37)
[2020-06-29] MEDS: Aspirin 81 mg Enteric Coated Tablet PO SCH (08:37)
[2020-06-29] MEDS: Cholecalciferol (Vitamin D3) 400 UNITS TAB PO SCH (08:37)
[2020-06-29] MEDS: Tamsulosin HCl 0.4 MG CAP PO SCH (08:38)
[2020-06-29] MEDS: guaiFENesin ER 600 MG TAB PO SCH ×2 (08:38→21:01)
[2020-06-29] MEDS: Ferrous Gluconate 324 MG TAB PO SCH ×2 (08:38→21:01)
[2020-06-29] MEDS: Enoxaparin Sodium 30 MG/0.3 ML SYRINGE SC SCH (08:38)
[2020-06-29] MEDS: Gabapentin 100 MG CAP PO SCH ×2 (08:38→21:01)
[2020-06-29] MEDS: Multivitamin W/ Minerals 1 TAB PO SCH (08:38)
[2020-06-29] MEDS: Fluticasone Propionate Nasal Spray 16 gm Bottle NASAL SCH (08:39)
[2020-06-29] MEDS: Senokot S 8.6-50 MG TAB PO SCH ×2 (08:39→21:02)
[2020-06-29] MEDS ORDERED: Bumetanide 1 MG/4 ML VIAL IVP SCH ×2 (09:00→14:00)
--- NOTE | 2020-06-29 09:36 | PRG ---
DATE OF SERVICE: 06/29/2020 SUBJECTIVE: An 79-year-old gentleman, being seen for acute kidney injury. The patient denied nausea, vomiting, or chest pain. PHYSICAL EXAMINATION: GENERAL: The patient is awake and alert. VITAL SIGNS: Afebrile, pulse 75, breathing at 16, blood pressure 135/70. HEENT: Head normocephalic and atraumatic. Eyes intact, no ulcers. Nose intact, no ulcers. Ears intact, no ulcers. NECK: Supple. No JVD. CHEST: Symmetrical and clear. CARDIOVASCULAR: Shows S1 and S2, no rub, no murmur. GASTROINTESTINAL: Abdomen is soft, bowel sounds positive. EXTREMITIES: Show no edema or ulcers. SKIN: Shows no rash or petechiae. MUSCULOSKELETAL: Shows no joint swelling or stiffness. GENITOURINARY: Shows no De or CVA tenderness. NEUROLOGIC: Motor intact. Cranial nerves intact. LABORATORY DATA: Hemoglobin 8.5. Creatinine is 2.9. ASSESSMENT AND PLAN: 1. Chronic kidney disease stage 4 with acute kidney injury, progressive due to cardiorenal syndrome. 2. Hypertension, stable. 3. Anemia, stable. 4. Edema, improved. No indication for dialysis. Job ID: [id number]
[2020-06-29] MEDS: hydrOXYzine Pamoate 25 mg Capsule PO PRN ×3 (09:48→18:26)
--- NOTE | 2020-06-29 11:00 | PRG ---
DATE OF SERVICE: 06/29/2020 SUBJECTIVE: Mr. Mart is awake and alert. He looks actually better today. He is not dyspneic. He is more awake. OBJECTIVE: VITAL SIGNS: Blood pressure 135/70, oxygen saturation on oxygen is 95%, when he is on room air, it is in the high 70s. LUNGS: Clear. CARDIAC: Normal S1, normal S2. ABDOMEN: Obese, nontender. EXTREMITIES: Mild to moderate edema. LABORATORY DATA: The patient's creatinine has increased to 2.95, but he is off diuretics, CO2 is 25. ASSESSMENT: 1. Diastolic heart failure, mildly intravascularly depleted. 2. Renal failure worsened, probably due to intravascular depletion. 3. Chronic obstructive pulmonary disease, actually looks better today. PLAN: 1. Diuretics are on hold. 2. He is back on low-dose aspirin and enoxaparin at a prophylactic dose. 3. He has itching probably related to an antibiotic, the medicines are being changed. Overall, looks somewhat better today. PROGNOSIS: Remains guarded. Job ID: [id number]
[2020-06-29] MEDS: DAPTOmycin 500 MG in Sodium Chloride 0.9% 100 ML IVPB SCH (11:10)
--- NOTE | 2020-06-29 11:47 | PDOC.HOSPP ---
- Subjective Encounter Date: 06/29/20 Subjective: The patient was seen and examined. He stated that his shortness of breath although still present, is better than yesterday. Still complaining of itching. - Objective Vital Signs & Weight: Vital Signs (12 hours) Temp Pulse Resp BP Pulse Ox 06/29/20 11:24 97.6 F 96 16 123/63 94 L 06/29/20 10:25 92 20 98 06/29/20 07:59 94 L 06/29/20 07:38 97.9 F 95 18 135/70 95 06/29/20 07:10 94 24 H 94 L 06/29/20 03:56 14 98 06/29/20 03:55 96 06/29/20 03:26 97.7 F 77 18 123/64 99 Weight Admit Weight 195 lb Weight 213 lb 10.047 oz Most Recent Monitor Data Heart Rate from ECG 92 NIBP 119/85 NIBP BP-Mean 96 Respiration from ECG 22 SpO2 94 I&O: 06/28/20 06/29/20 06/30/20 06:59 06:59 06:59 Intake Total 3990 1860 Output Total 2575 775 Balance 1415 1085 Result Diagrams: 06/29/20 05:35 06/29/20 05:35 Hospitalist ROS - Medication Medications: Active Medications Generic Name Dose Route Start Last Admin Trade Name Freq PRN Reason Stop Dose Admin Acetaminophen 650 mg 06/03/20 16:52 06/27/20 20:09 Tylenol PO 650 mg Q4H PRN Administration Headache/Fever or Pain Albuterol/Ipratropium 3 ml 06/20/20 18:30 06/29/20 10:25 Duoneb NEB 3 ml [id number] SHORTY Administration Aspirin 81 mg 06/26/20 09:00 06/29/20 08:37 Ecotrin PO 81 mg DAILY SHORTY Administration Atorvastatin Calcium 20 mg 06/02/20 21:00 06/28/20 21:00 Lipitor PO 20 mg HS SHORTY Administration Budesonide 0.5 mg 06/19/20 18:30 06/29/20 07:10 Pulmicort Neb Solution INH 0.5 mg BID-RT SHORTY Administration Bumetanide 1 mg 06/29/20 09:00 06/29/20 09:48 Bumex IVP 06/29/20 12:00 1 mg NOW SHORTY Administration Cholecalciferol 800 units 06/07/20 09:00 06/29/20 08:37 Vitamin D PO 800 units DAILY SHORTY Administration Diphenhydramine HCl 25 mg 06/03/20 16:52 06/29/20 01:05 Benadryl PO 25 mg Q6H PRN Administration Itching Enoxaparin Sodium 30 mg 06/20/20 09:00 06/29/20 08:38 Lovenox SC 30 mg 09 SHORTY Administration Fentanyl 50 mcg 06/02/20 10:54 06/02/20 14:34 Sublimaze SLOW IVP 50 mcg Q30M PRN Administration Severe breakthrough pain Ferrous Gluconate 324 mg 06/03/20 21:00 06/29/20 08:38 Fergon PO 324 mg BID SHORTY Administration Fluticasone Propionate 0 gm 06/20/20 09:00 06/29/20 08:39 Flonase Nasal [place] NASAL 2 spr DAILY SHORTY Administration Gabapentin 100 mg 06/02/20 21:00 06/29/20 08:38 Neurontin PO 100 mg BID SHORTY Administration Guaifenesin 600 mg 06/22/20 21:00 06/29/20 08:38 Mucinex PO 600 mg Q12HR SHORTY Administration Hydroxyzine Pamoate 25 mg 06/29/20 08:33 06/29/20 09:48 Vistaril PO 25 mg Q4H PRN Administration Hypersensitivity reaction Piperacillin Sod/Tazobactam 100 mls @ 200 mls/hr 06/27/20 12:00 06/29/20 05: 41 Sod 2.25 gm/ Sodium Chloride IVPB 100 mls Q6HR SHORTY Administration Daptomycin 500 mg/ Sodium 100 mls @ 200 mls/hr 06/27/20 11:00 06/29/20 11:10 Chloride IVPB 100 mls Q48H SHORTY Administration Iron/Minerals/Multivitamins 1 tab 06/04/20 09:00 06/29/20 08:38 Theragran M PO 1 tab DAILY SHORTY Administration Magnesium Oxide 400 mg 06/11/20 09:00 06/29/20 08:37 Magnesium Oxide PO 400 mg DAILY SHORTY Administration Methylprednisolone Sodium Succinate 40 mg 06/28/20 09:00 06/29/20 08:39 Solu-Medrol IVP 40 mg 0300,0900,1500,2100 SHORTY Administration Morphine Sulfate 4 mg 06/02/20 10:54 06/03/20 11:58 Morphine SLOW IVP 4 mg Q2H PRN Administration Severe Pain (7-10) Pantoprazole Sodium 40 mg 06/02/20 21:00 06/29/20 08:38 Protonix PO 40 mg BID [facility] Administration Senna/Docusate Sodium 2 tab 06/03/20 21:00 06/29/20 08:39 Senokot S PO Not Given BID [facility] Tamsulosin HCl 0.4 mg 06/03/20 09:00 06/29/20 08:38 Flomax PO 0.4 mg DAILY SHORTY Administration Tramadol HCl 50 mg 06/18/20 17:00 06/28/20 21:03 Ultram PO 50 mg Q12H PRN Administration Mild Pain (1-3) - Exam General Appearance: awake alert ENT: normocephalic atraumatic Neck: supple, no JVD Heart: RRR Respiratory: normal chest expansion, no tachypnea, rhonchi Gastrointestinal: soft Extremities: 1+ LE edema 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 Code(s): T84.59XA - INFECT/INFLM REACTION DUE TO OTH INTERNAL JOINT PROSTH, INIT ; Z96.649 - PRESENCE OF UNSPECIFIED ARTIFICIAL HIP JOINT Status: Acute (4) BPH (benign prostatic hyperplasia) Code(s): N40.0 - BENIGN PROSTATIC HYPERPLASIA WITHOUT LOWER URINRY TRACT SYMP Status: Chronic Qualifiers: (5) CKD (chronic kidney disease) stage 3, GFR 30-59 ml/min Code(s): N18.3 - CHRONIC KIDNEY DISEASE, STAGE 3 (MODERATE) Status: Chronic (6) HTN (hypertension) Code(s): I10 - ESSENTIAL (PRIMARY) HYPERTENSION Status: Chronic Qualifiers: (7) Red man syndrome Code(s): L27.0 - GEN SKIN ERUPTION DUE TO DRUGS AND MEDS TAKEN INTERNALLY Status: Acute - Plan This is an 79 year old male with past medical history of multiple hip surgeries presenting with left thigh and hip pain Left thigh and hip pain s/p total hip arthroplasty secondary to Morganella morganii infection Acute diastolic heart failure secondary to pulmonary edema Scrotal swelling/edema - from fluid overload NNEKA - likely cardiorenal #Anemia Hypocalcemia - Physical deconditioning Respiratory distress this morning. Shortness of breath due to combination of congestive heart failure, and COPD constipation. His volume status has improved since admission. He was on Lasix drip which was discontinued. Administer 1 dose of Bumex today. Creatinine is trending up. We will hold further diuresis for now. Continue scheduled nebulizer treatments, corticosteroids, and antibiotics. The patient has developed macular reticular rash that is likely drug-related. Antibiotics were changed to daptomycin and Zosyn by ID. Continue Benadryl as needed.
--- NOTE | 2020-06-29 14:02 | PDOC.FMACP ---
Advance Care Planning - Problem (1) Palliative care encounter Status: Acute Code(s): Z51.5 - ENCOUNTER FOR PALLIATIVE CARE (2) NNEKA (acute kidney injury) Status: Acute Code(s): N17.9 - ACUTE KIDNEY FAILURE, UNSPECIFIED (3) Acute on chronic diastolic (congestive) heart failure Status: Acute Code(s): I50.33 - ACUTE ON CHRONIC DIASTOLIC (CONGESTIVE) HEART FAILURE (4) COPD exacerbation Status: Acute Code(s): J44.1 - CHRONIC OBSTRUCTIVE PULMONARY DISEASE W (ACUTE ) EXACERBATION (5) Symptomatic anemia Status: Acute Code(s): D64.9 - ANEMIA, UNSPECIFIED - Note Participants: patient, palliative care Summary: Palliative Care introduced Advanced Care Planning. The diagnosis, prognosis and goals of care were discussed. Appropriate forms and documentation to accomplish the goals of care were discussed. All questions were answered. Elected to complete MPOA, origional and copy given to patient as well as copy placed on chart for medical records. Presented Directive to Physicians, Mr Mart will review and discuss with his . The Palliative Care Team will continue to assist with completion of any outstanding forms as identified. Time Spent (mins): 20
--- NOTE | 2020-06-29 15:06 | PRG ---
DATE OF SERVICE: 06/29/2020 SUBJECTIVE: Bin Mart is in no distress. OBJECTIVE: VITAL SIGNS: He is afebrile, heart rate is 96, respiratory rate is 16, oximetry is 94. LUNGS: Distant, clear. HEART: Regular rhythm. ABDOMEN: Soft. GENERAL: He looks much better than he looked yesterday. LABORATORY DATA: White count 21.3, hemoglobin 8.5, and platelets 317. Electrolytes are unchanged. Creatinine is 2.95, BUN is 92. His Lasix drip has been discontinued. Chest radiograph is unchanged. IMPRESSION: Chronic obstructive pulmonary disease exacerbation leading to bronchospasm and respiratory difficulty yesterday, clinically improved today. We will decrease his steroids tomorrow. I do not feel he has a hospital-acquired infection. The next step will be rehab, but I would consider transferring him until he has been stable from respiratory standpoint and a renal function standpoint for couple of days at least. Job ID: [id number]
[2020-06-29] MEDS: Acetaminophen 325 MG TAB PO PRN (15:20)
--- NOTE | 2020-06-29 17:18 | PRG ---
DATE OF SERVICE: SUBJECTIVE: Mr. Mart is in the recliner chair by his bed. He does not appear in distress. He got his hearing aid today and is much easier to communicate. Still having a lot of itching in his skin, arms and chest mostly and also back, but not the lower extremities, not the head. The mouth is not affected by the problem. OBJECTIVE: VITAL SIGNS: His temperature is normal, BP 116/63, heart rate 99, respiratory rate 14, O2 saturation 97 on room air. SKIN: The rash is about the same as I had seen yesterday and a little bit of areas of exfoliation in the chest and abdomen. HEENT: The oral cavity is normal. The conjunctivae are normal. LUNGS: Clear to auscultation and percussion. HEART: S1 and S2, regular rate. ABDOMEN: Soft, not distended. LABORATORY DATA: White cell count is at 21.3, hemoglobin 8.5, platelets 317, 86% neutrophils, 13% bands. Creatinine 2.95. 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 This could be a contaminant rather than an additional problem on top of the methicillin-resistant Staphylococcus aureus. Now, he has developed hypersensitivity reaction, which is at least part of the cause of his neutrophilia. The other component is the fact that he has required methylprednisolone for management of his chronic obstructive pulmonary disease. We will continue with Zosyn and daptomycin which are the new antimicrobials and monitor his progress. Job ID: [id number]
[2020-06-29] MEDS: Atorvastatin Calcium 20 MG TAB PO SCH (21:01)
[2020-06-29] MEDS: traMADol HCl 50 MG TAB PO PRN (21:02)
[2020-06-30] MEDS: methylPREDNISolone Sod Succ 40 MG VIAL IVP SCH ×4 (02:24→21:19)
[2020-06-30] MEDS: hydrOXYzine Pamoate 25 mg Capsule PO PRN ×3 (02:38→17:53)
[2020-06-30] MEDS: Piperacillin/Tazobactam 2.25 GM in Sodium Chloride 0.9% 100 ML IVPB SCH ×3 (05:19→17:36)
[2020-06-30] MEDS: diphenhydrAMINE 25 MG CAP PO PRN ×3 (05:27→17:53)
[2020-06-30 06:12] LABS: #Lymphocytes 0.6 thou/uL (1.20-3.40); #Monocytes 0.5 thou/uL (0.11-0.59); #Neutrophils 19.6 thou/uL (1.40-6.50); %Eosinophils 0.1 % (0.0-10.0); %Lymphocytes 2.9 % (21.0-51.0); %Monocytes 2.4 % (0.0-10.0); %Neutrophils 94.5 % (42.0-75.0); Hemoglobin 7.4 g/dL (14.0-18.0); Mean Corpuscular HGB CONC 30.6 g/dL (32.0-36.0); Mean Corpuscular Volume 88.2 fL (78.0-98.0); Mean Platelet Volume 9.4 fL (7.4-10.4); Platelet Count 302 thou/uL (130-400); RBC Distribution Width 18.6 % (11.5-14.5); Red Blood Cell (RBC) Count 2.75 mill/uL (4.70-6.10); White Blood Cell (WBC) Count 20.7 thou/uL (4.8-10.8)
[2020-06-30 06:32] LABS: Anion Gap 18 mmol/L (10-20); BUN (Urea Nitrogen) 107 mg/dL (8.4-25.7); Calc. Creatinine Clearance 27 mL/min (70-130); Calcium 8.2 mg/dL (7.8-10.44); Carbon Dioxide 25 mmol/L (23-31); Chloride 95 mmol/L (98-107); Estimated GFR-MDRD 20; Glucose 205 mg/dL (83-110); Potassium 3.3 mmol/L (3.5-5.1); Sodium 135 mmol/L (136-145)
[2020-06-30] MEDS: Budesonide 0.5 MG/2 ML NEB INH SCH ×2 (06:53→18:20)
[2020-06-30] MEDS: Enoxaparin Sodium 30 MG/0.3 ML SYRINGE SC SCH (09:37)
[2020-06-30] MEDS: Cholecalciferol (Vitamin D3) 400 UNITS TAB PO SCH (09:38)
[2020-06-30] MEDS: Ferrous Gluconate 324 MG TAB PO SCH ×2 (09:38→21:19)
[2020-06-30] MEDS: Aspirin 81 mg Enteric Coated Tablet PO SCH (09:38)
[2020-06-30] MEDS: Magnesium Oxide 400 MG TAB PO SCH (09:38)
[2020-06-30] MEDS: Senokot S 8.6-50 MG TAB PO SCH ×2 (09:39→21:19)
[2020-06-30] MEDS: Tamsulosin HCl 0.4 MG CAP PO SCH (09:39)
[2020-06-30] MEDS: guaiFENesin ER 600 MG TAB PO SCH ×2 (09:39→21:19)
[2020-06-30] MEDS: Gabapentin 100 MG CAP PO SCH ×2 (09:39→21:19)
[2020-06-30] MEDS: Fluticasone Propionate Nasal Spray 16 gm Bottle NASAL SCH (09:39)
[2020-06-30] MEDS: Multivitamin W/ Minerals 1 TAB PO SCH (09:39)
--- NOTE | 2020-06-30 14:12 | PRG ---
DATE OF SERVICE: 06/30/2020 SUBJECTIVE: The patient is an 79-year-old gentleman being seen for acute kidney injury with rising creatinine. The patient denies any nausea, vomiting or chest pain. PHYSICAL EXAMINATION: General: The patient is awake and alert. Vital Signs: Afebrile, pulse 75, breathing at 16, blood pressure 137/71. HEENT: Head normocephalic and atraumatic. Eyes intact, no ulcers. Nose intact, no ulcers. Ears intact, no ulcers. Neck: Supple. No JVD. Chest: Symmetrical and clear. Cardiovascular: Shows S1 and S2, no rub, no murmur. Gastrointestinal: Abdomen is soft, bowel sounds positive. Extremities: Show no edema or ulcers. Skin: Shows no rash or petechiae. Musculoskeletal: Shows no joint swelling or stiffness. Genitourinary: Shows no De or CVA tenderness. Neurologic: Motor intact. Cranial nerves intact. LABORATORY DATA: Hemoglobin 7.4, potassium 3.3, creatinine 3.0. ASSESSMENT: 1. Acute kidney injury on chronic kidney disease stage 4, progressive. No indication for dialysis. 2. Hypokalemia. Recommend potassium replacement. 3. Anemia. Recommend blood transfusion. Overall prognosis remains very poor. Job ID: [id number]
[2020-06-30] MEDS ORDERED: Potassium Chloride 20 MEQ TAB PO SCH (18:15)
--- NOTE | 2020-06-30 18:22 | PDOC.HOSPP ---
- Subjective Encounter Date: 06/30/20 Subjective: The patient was seen and examined. He remains short of breath. Complaint of rash and itching in his arms. - Objective Vital Signs & Weight: Vital Signs (12 hours) Temp Pulse Resp BP Pulse Ox 06/30/20 16:00 92 L 06/30/20 15:36 98.5 F 100 16 151/72 H 92 L 06/30/20 13:52 85 20 96 06/30/20 11:00 97.8 F 98 16 159/63 H 95 06/30/20 10:36 94 20 97 06/30/20 08:00 93 L 06/30/20 07:28 97.9 F 100 16 137/71 93 L 06/30/20 06:53 77 20 98 Weight Admit Weight 195 lb Weight 213 lb 10.032 oz Most Recent Monitor Data Heart Rate from ECG 92 NIBP 119/85 NIBP BP-Mean 96 Respiration from ECG 22 SpO2 94 I&O: 06/29/20 06/30/20 07/01/20 06:59 06:59 06:59 Intake Total 1860 2650 985 Output Total 775 1225 700 Balance 1085 1425 285 Result Diagrams: 06/30/20 05:00 06/30/20 05:00 Hospitalist ROS - Medication Medications: Active Medications Generic Name Dose Route Start Last Admin Trade Name Freq PRN Reason Stop Dose Admin Acetaminophen 650 mg 06/03/20 16:52 06/29/20 15:20 Tylenol PO 650 mg Q4H PRN Administration Headache/Fever or Pain Albuterol/Ipratropium 3 ml 06/20/20 18:30 06/30/20 13:52 Duoneb NEB 3 ml [id number] SHORTY Administration Aspirin 81 mg 06/26/20 09:00 06/30/20 09:38 Ecotrin PO 81 mg DAILY SHORTY Administration Atorvastatin Calcium 20 mg 06/02/20 21:00 06/29/20 21:01 Lipitor PO 20 mg HS SHORTY Administration Budesonide 0.5 mg 06/19/20 18:30 06/30/20 06:53 Pulmicort Neb Solution INH 0.5 mg BID-RT SHORTY Administration Cholecalciferol 800 units 06/07/20 09:00 06/30/20 09:38 Vitamin D PO 800 units DAILY SHORTY Administration Diphenhydramine HCl 25 mg 06/03/20 16:52 06/30/20 17:53 Benadryl PO 25 mg Q6H PRN Administration Itching Enoxaparin Sodium 30 mg 06/20/20 09:00 06/30/20 09:37 Lovenox SC 30 mg 0900 SHORTY Administration Fentanyl 50 mcg 06/02/20 10:54 06/02/20 14:34 Sublimaze SLOW IVP 50 mcg Q30M PRN Administration Severe breakthrough pain Ferrous Gluconate 324 mg 06/03/20 21:00 06/30/20 09:38 Fergon PO 324 mg BID SHORTY Administration Fluticasone Propionate 0 gm 06/20/20 09:00 06/30/20 09:39 Flonase Nasal [place] NASAL 2 spr DAILY SHORTY Administration Gabapentin 100 mg 06/02/20 21:00 06/30/20 09:39 Neurontin PO 100 mg BID SHORTY Administration Guaifenesin 600 mg 06/22/20 21:00 06/30/20 09:39 Mucinex PO 600 mg Q12HR SHORTY Administration Hydroxyzine Pamoate 25 mg 06/29/20 08:33 06/30/20 17:53 Vistaril PO 25 mg Q4H PRN Administration Hypersensitivity reaction Piperacillin Sod/Tazobactam 100 mls @ 200 mls/hr 06/27/20 12:00 06/30/20 17: 36 Sod 2.25 gm/ Sodium Chloride IVPB 100 mls Q6HR SHORTY Administration Daptomycin 500 mg/ Sodium 100 mls @ 200 mls/hr 06/27/20 11:00 06/29/20 11:10 Chloride IVPB 100 mls Q48H SHORTY Administration Iron/Minerals/Multivitamins 1 tab 06/04/20 09:00 06/30/20 09:39 Theragran M PO 1 tab DAILY SHORTY Administration Magnesium Oxide 400 mg 06/11/20 09:00 06/30/20 09:38 Magnesium Oxide PO 400 mg DAILY SHORTY Administration Methylprednisolone Sodium Succinate 40 mg 06/28/20 09:00 06/30/20 15:33 Solu-Medrol IVP 40 mg 0300,0900,1500,2100 SHORTY Administration Morphine Sulfate 4 mg 06/02/20 10:54 06/03/20 11:58 Morphine SLOW IVP 4 mg Q2H PRN Administration Severe Pain (7-10) Pantoprazole Sodium 40 mg 06/02/20 21:00 06/30/20 09:39 Protonix PO 40 mg BID SHORTY Administration Potassium Chloride 40 meq 06/30/20 18:15 06/30/20 18:17 K-Dur PO 06/30/20 20:15 40 meq NOW SHORTY Administration Senna/Docusate Sodium 2 tab 06/03/20 21:00 06/30/20 09:39 Senokot S PO 2 tab BID SHORTY Administration Tamsulosin HCl 0.4 mg 06/03/20 09:00 06/30/20 09:39 Flomax PO 0.4 mg DAILY SHORTY Administration Tramadol HCl 50 mg 06/18/20 17:00 06/29/20 21:02 Ultram PO 50 mg Q12H PRN Administration Mild Pain (1-3) - Exam General Appearance: awake alert ENT: normocephalic atraumatic Neck: supple, no JVD Heart: RRR Respiratory: normal chest expansion, rhonchi, tachypneic Neurological: cranial nerve grossly intact, no focal deficits Hosp A/P (1) Acute on chronic diastolic (congestive) heart failure Code(s): I50.33 - ACUTE ON CHRONIC DIASTOLIC (CONGESTIVE) HEART FAILURE Status : Acute (2) Atrial fibrillation Code(s): I48.91 - UNSPECIFIED ATRIAL FIBRILLATION Status: Chronic Qualifiers: (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 Code(s): T84.59XA - INFECT/INFLM REACTION DUE TO OTH INTERNAL JOINT PROSTH, INIT ; Z96.649 - PRESENCE OF UNSPECIFIED ARTIFICIAL HIP JOINT Status: Acute (4) BPH (benign prostatic hyperplasia) Code(s): N40.0 - BENIGN PROSTATIC HYPERPLASIA WITHOUT LOWER URINRY TRACT SYMP Status: Chronic Qualifiers: (5) CKD (chronic kidney disease) stage 3, GFR 30-59 ml/min Code(s): N18.3 - CHRONIC KIDNEY DISEASE, STAGE 3 (MODERATE) Status: Chronic (6) HTN (hypertension) Code(s): I10 - ESSENTIAL (PRIMARY) HYPERTENSION Status: Chronic Qualifiers: (7) Red man syndrome Code(s): L27.0 - GEN SKIN ERUPTION DUE TO DRUGS AND MEDS TAKEN INTERNALLY Status: Acute - Plan This is an 79 year old male with past medical history of multiple hip surgeries presenting with left thigh and hip pain Left thigh and hip pain s/p total hip arthroplasty secondary to Morganella morganii infection Acute diastolic heart failure secondary to pulmonary edema Scrotal swelling/edema - from fluid overload NNEKA - likely cardiorenal #Anemia Hypocalcemia - Physical deconditioning Shortness of breath due to combination of congestive heart failure, and COPD constipation. Volume status improving, however, patient still short of breath due to some degree of volume overload. His hemoglobin level dropped to below 8. We will transfuse 1 unit of packed RBCs. Administer Bumex. Continue scheduled nebulizer treatments, corticosteroids, and antibiotics. The patient has developed macular reticular rash that is likely drug-related. Antibiotics were changed to daptomycin and Zosyn by ID. Continue Benadryl as needed.
[2020-06-30] MEDS: Acetaminophen 325 MG TAB PO PRN (21:19)
[2020-06-30] MEDS: Atorvastatin Calcium 20 MG TAB PO SCH (21:19)
[2020-07-01] MEDS: Piperacillin/Tazobactam 2.25 GM in Sodium Chloride 0.9% 100 ML IVPB SCH ×4 (00:35→17:20)
[2020-07-01] MEDS: methylPREDNISolone Sod Succ 40 MG VIAL IVP SCH ×2 (03:15→09:40)
[2020-07-01 03:54] LABS: #Lymphocytes 0.6 thou/uL (1.20-3.40); #Monocytes 0.5 thou/uL (0.11-0.59); %Basophils 0.1 % (0.0-1.0); %Eosinophils 0.1 % (0.0-10.0); %Lymphocytes 4.4 % (21.0-51.0); %Monocytes 3.3 % (0.0-10.0); %Neutrophils 92.1 % (42.0-75.0); Hemoglobin 7.8 g/dL (14.0-18.0); Mean Corpuscular Hemoglobin 27.4 pg (27.0-31.0); Mean Corpuscular Volume 88.1 fL (78.0-98.0); Mean Platelet Volume 9.3 fL (7.4-10.4); Platelet Count 263 thou/uL (130-400); RBC Distribution Width 17.9 % (11.5-14.5); Red Blood Cell (RBC) Count 2.86 mill/uL (4.70-6.10); White Blood Cell (WBC) Count 14.2 thou/uL (4.8-10.8)
[2020-07-01 04:09] LABS: Anion Gap 20 mmol/L (10-20); BUN (Urea Nitrogen) 103 mg/dL (8.4-25.7); Calc. Creatinine Clearance 25 mL/min (70-130); Calcium 8.2 mg/dL (7.8-10.44); Carbon Dioxide 24 mmol/L (23-31); Chloride 98 mmol/L (98-107); Estimated GFR-MDRD 19; Glucose 224 mg/dL (83-110); Potassium 3.3 mmol/L (3.5-5.1); Sodium 139 mmol/L (136-145)
[2020-07-01] MEDS: diphenhydrAMINE 25 MG CAP PO PRN ×3 (04:27→17:20)
[2020-07-01] MEDS: Acetaminophen 325 MG TAB PO PRN ×2 (04:30→20:41)
[2020-07-01] MEDS: Budesonide 0.5 MG/2 ML NEB INH SCH ×2 (07:34→18:30)
[2020-07-01] MEDS ORDERED: Potassium Chloride 20 MEQ TAB PO SCH ×2 (07:45→10:00)
--- NOTE | 2020-07-01 08:47 | PRG ---
DATE OF SERVICE: 07/01/2020 SUBJECTIVE: Bin Mart did well overnight. He says he feels better. He is afebrile. OBJECTIVE: VITAL SIGNS: Heart rate is 90, respiratory rate is 22. He is still wearing his BiPAP this morning. I awakened him from sleep. He said he felt great. His blood pressure is 154/68. LUNGS: Free of wheezes. HEART: Regular rate and rhythm. ABDOMEN: Soft. IMPRESSION AND PLAN: 1. Diastolic heart failure. 2. Acute on chronic kidney disease. 3. Chronic obstructive pulmonary disease with an exacerbation. He responded well initially to 80 mg of Medrol for several days and then had to be put back on Medrol when he became bronchospastic again. We probably need to leave him on a low dose, i.e., 10 mg or so of prednisone. I cut him back to 20 mg of Medrol today, and we will probably keep following him every other day or so while he is in the hospital. Job ID: [id number]
[2020-07-01] MEDS: Fluticasone Propionate Nasal Spray 16 gm Bottle NASAL SCH (09:38)
[2020-07-01] MEDS: Senokot S 8.6-50 MG TAB PO SCH ×2 (09:38→20:36)
[2020-07-01] MEDS: Magnesium Oxide 400 MG TAB PO SCH (09:39)
[2020-07-01] MEDS: Cholecalciferol (Vitamin D3) 400 UNITS TAB PO SCH (09:39)
[2020-07-01] MEDS: Tamsulosin HCl 0.4 MG CAP PO SCH (09:39)
[2020-07-01] MEDS: Gabapentin 100 MG CAP PO SCH ×2 (09:39→20:35)
[2020-07-01] MEDS: Aspirin 81 mg Enteric Coated Tablet PO SCH (09:40)
[2020-07-01] MEDS: Ferrous Gluconate 324 MG TAB PO SCH ×2 (09:40→20:35)
[2020-07-01] MEDS: guaiFENesin ER 600 MG TAB PO SCH ×2 (09:40→20:36)
[2020-07-01] MEDS: Enoxaparin Sodium 30 MG/0.3 ML SYRINGE SC SCH (09:40)
[2020-07-01] MEDS: Multivitamin W/ Minerals 1 TAB PO SCH (09:40)
[2020-07-01] MEDS: hydrOXYzine Pamoate 25 mg Capsule PO PRN ×3 (09:44→21:26)
--- NOTE | 2020-07-01 09:57 | PDOC.HOSPP ---
- Subjective Encounter Date: 07/01/20 Subjective: The patient was seen and examined. He is sitting in the chair and his respiratory status is better than yesterday. The reticular rash involving his trunk and extremities appear to be improving. - Objective Vital Signs & Weight: Vital Signs (12 hours) Temp Pulse Pulse Resp BP BP BP 07/01/20 07:34 90 22 H 07/01/20 07:23 97.9 F 97 16 154/68 H 07/01/20 03:19 97.9 F 88 16 140/73 07/01/20 02:05 85 11 L 07/01/20 02:04 85 16 07/01/20 00:29 97.9 F 85 17 126/69 06/30/20 22:09 105 H 20 Pulse Ox 07/01/20 07:34 07/01/20 07:23 90 L 07/01/20 03:19 100 07/01/20 02:05 99 07/01/20 02:04 99 07/01/20 00:29 99 06/30/20 22:09 Weight Admit Weight 195 lb Weight 218 lb 4.122 oz Most Recent Monitor Data Heart Rate from ECG 92 NIBP 119/85 NIBP BP-Mean 96 Respiration from ECG 22 SpO2 94 I&O: 06/30/20 07/01/20 07/02/20 06:59 06:59 06:59 Intake Total 2650 2015 Output Total 1225 1325 Balance 1425 690 Result Diagrams: 07/01/20 03:30 07/01/20 03:30 Hospitalist ROS - Medication Medications: Active Medications Generic Name Dose Route Start Last Admin Trade Name Richardq PRN Reason Stop Dose Admin Acetaminophen 650 mg 06/03/20 16:52 07/01/20 04:30 Tylenol PO 650 mg Q4H PRN Administration Headache/Fever or Pain Albuterol/Ipratropium 3 ml 06/20/20 18:30 07/01/20 07:34 Duoneb NEB 3 ml [id number] SHORTY Administration Aspirin 81 mg 06/26/20 09:00 07/01/20 09:40 Ecotrin PO 81 mg DAILY SHORTY Administration Atorvastatin Calcium 20 mg 06/02/20 21:00 06/30/20 21:19 Lipitor PO 20 mg HS SHORTY Administration Budesonide 0.5 mg 06/19/20 18:30 07/01/20 07:34 Pulmicort Neb Solution INH 0.5 mg BID-RT SHORTY Administration Cholecalciferol 800 units 06/07/20 09:00 07/01/20 09:39 Vitamin D PO 800 units DAILY SHORTY Administration Diphenhydramine HCl 25 mg 06/03/20 16:52 07/01/20 09:44 Benadryl PO 25 mg Q6H PRN Administration Itching Enoxaparin Sodium 30 mg 06/20/20 09:00 07/01/20 09:40 Lovenox SC 30 mg 09 SHORTY Administration Fentanyl 50 mcg 06/02/20 10:54 06/02/20 14:34 Sublimaze SLOW IVP 50 mcg Q30M PRN Administration Severe breakthrough pain Ferrous Gluconate 324 mg 06/03/20 21:00 07/01/20 09:40 Fergon PO 324 mg BID [facility] Administration Fluticasone Propionate 0 gm 06/20/20 09:00 07/01/20 09:38 Flonase Nasal [place] NASAL 2 spr DAILY [facility] Administration Gabapentin 100 mg 06/02/20 21:00 07/01/20 09:39 Neurontin PO 100 mg BID SHORTY Administration Guaifenesin 600 mg 06/22/20 21:00 07/01/20 09:40 Mucinex PO 600 mg Q12HR SHORTY Administration Hydroxyzine Pamoate 25 mg 06/29/20 08:33 07/01/20 09:44 Vistaril PO 25 mg Q4H PRN Administration Hypersensitivity reaction Piperacillin Sod/Tazobactam 100 mls @ 200 mls/hr 06/27/20 12:00 07/01/20 05: 47 Sod 2.25 gm/ Sodium Chloride IVPB 100 mls Q6HR SHORTY Administration Daptomycin 500 mg/ Sodium 100 mls @ 200 mls/hr 06/27/20 11:00 06/29/20 11:10 Chloride IVPB 100 mls Q48H SOHRTY Administration Iron/Minerals/Multivitamins 1 tab 06/04/20 09:00 07/01/20 09:40 Theragran M PO 1 tab DAILY [facility] Administration Magnesium Oxide 400 mg 06/11/20 09:00 07/01/20 09:39 Magnesium Oxide PO 400 mg DAILY SHORTY Administration Methylprednisolone Sodium Succinate 20 mg 07/01/20 09:00 07/01/20 09:40 Solu-Medrol IVP 20 mg DAILY SHORTY Administration Morphine Sulfate 4 mg 06/02/20 10:54 06/03/20 11:58 Morphine SLOW IVP 4 mg Q2H PRN Administration Severe Pain (7-10) Pantoprazole Sodium 40 mg 06/02/20 21:00 07/01/20 09:40 Protonix PO 40 mg BID SHORTY Administration Potassium Chloride 40 meq 07/01/20 07:45 07/01/20 09:43 K-Dur PO 07/01/20 11:00 40 meq NOW SHORTY Administration Senna/Docusate Sodium 2 tab 06/03/20 21:00 07/01/20 09:38 Senokot S PO 2 tab BID SHORTY Administration Tamsulosin HCl 0.4 mg 06/03/20 09:00 07/01/20 09:39 Flomax PO 0.4 mg DAILY SHORTY Administration Tramadol HCl 50 mg 06/18/20 17:00 06/29/20 21:02 Ultram PO 50 mg Q12H PRN Administration Mild Pain (1-3) - Exam General Appearance: awake alert ENT: normocephalic atraumatic Neck: supple, no JVD Respiratory: CTAB, normal chest expansion, normal percussion Extremities: no cyanosis, no clubbing, 1+ LE edema 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 Code(s): T84.59XA - INFECT/INFLM REACTION DUE TO OTH INTERNAL JOINT PROSTH, INIT ; Z96.649 - PRESENCE OF UNSPECIFIED ARTIFICIAL HIP JOINT Status: Acute (4) BPH (benign prostatic hyperplasia) Code(s): N40.0 - BENIGN PROSTATIC HYPERPLASIA WITHOUT LOWER URINRY TRACT SYMP Status: Chronic Qualifiers: (5) CKD (chronic kidney disease) stage 3, GFR 30-59 ml/min Code(s): N18.3 - CHRONIC KIDNEY DISEASE, STAGE 3 (MODERATE) Status: Chronic (6) HTN (hypertension) Code(s): I10 - ESSENTIAL (PRIMARY) HYPERTENSION Status: Chronic Qualifiers: (7) Red man syndrome Code(s): L27.0 - GEN SKIN ERUPTION DUE TO DRUGS AND MEDS TAKEN INTERNALLY Status: Acute - Plan This is an 79 year old male with past medical history of multiple hip surgeries presenting with left thigh and hip pain Left thigh and hip pain s/p total hip arthroplasty secondary to Morganella morganii infection Acute diastolic heart failure secondary to pulmonary edema Scrotal swelling/edema - from fluid overload NNEKA - likely cardiorenal #Anemia Hypocalcemia - Physical deconditioning Allergic reaction to antibiotics Shortness of breath due to combination of congestive heart failure, and COPD constipation. Volume status improving. The patient is not short of breath today. Continue Bumex. Creatinine level is slightly trending up. H&H improved by this time one-point after transfusion of a unit of packed RBCs yesterday. Continue to monitor. Continue scheduled nebulizer treatments, corticosteroids, and antibiotics. The patient has developed macular reticular rash that is likely drug-related. This is improving. Continue Benadryl as needed. Antibiotics were changed to daptomycin and Zosyn by ID. The patient refused to be discharged to an LTAC so the plan is to go to SNF once clinically stable.
[2020-07-01] MEDS: DAPTOmycin 500 MG in Sodium Chloride 0.9% 100 ML IVPB SCH (10:19)
--- NOTE | 2020-07-01 11:51 | PRG ---
DATE OF SERVICE: 07/01/2020 SUBJECTIVE: An 79-year-old gentleman being seen for acute kidney injury. The patient denies any nausea, vomiting, or chest pain. PHYSICAL EXAMINATION: GENERAL: The patient is awake alert. Vital Signs: Afebrile, pulse 84, breathing at 16, blood pressure 154/68. GENERAL: The patient is awake and alert. HEENT: Head normocephalic and atraumatic. Eyes intact, no ulcers. Nose intact, no ulcers. Ears intact, no ulcers. Neck: Supple. No JVD. Chest: Symmetrical and clear. Cardiovascular: Shows S1 and S2, no rub, no murmur. Gastrointestinal: Abdomen is soft, bowel sounds positive. Extremities: Show no edema or ulcers. Skin: Shows no rash or petechiae. Musculoskeletal: Shows no joint swelling or stiffness. Genitourinary: Shows no De or CVA tenderness. Neurologic: Motor intact. Cranial nerves intact. LABORATORY DATA: Show hemoglobin 7.8, potassium 3.3, creatinine 3.1. ASSESSMENT: 1. He is having chronic kidney disease stage 4 with acute kidney injury, likely progressive due to cardiorenal syndrome. Continue gentle hydration. 2. Hypokalemia. Recommend 20 mEq of potassium. 3. Anemia stable. 4. Medication based on glomerular filtration rate appropriate. No indication for dialysis at this time. Job ID: [id number]
--- NOTE | 2020-07-01 14:20 | ULT ---
US Renal Bilateral STANDARD History: Acute kidney injury Comparison: Renal ultrasound May 05, 2020 Findings: Real-time grayscale and color evaluation of the kidneys and urinary bladder was performed. Right kidney measures 11.2 x 4.9 x 4 cm without mass hydronephrosis or abnormal calcifications. Mild gallbladder wall thickening is incidentally noted. The left kidney measures 11.7 x 4.8 x 5.9 cm without mass, hydronephrosis or abnormal calcifications. Previously described left renal cyst is not well seen. Spleen is enlarged measuring 14.2 cm. Urinary bladder is decompressed with De catheter. Impression: 1. No evidence for obstructive uropathy. 2. Small volume ascites. 3. Splenomegaly. 4. Circumferential thickened gallbladder felt to be reflective of congestive changes and less likely cholecystitis. Recommend correlation with lab values.
[2020-07-01] MEDS: Bumetanide 1 MG/4 ML VIAL IVP SCH (20:33)
[2020-07-01] MEDS: Atorvastatin Calcium 20 MG TAB PO SCH (20:36)
[2020-07-01] MEDS: traMADol HCl 50 MG TAB PO PRN (20:40)
[2020-07-02] MEDS: Piperacillin/Tazobactam 2.25 GM in Sodium Chloride 0.9% 100 ML IVPB SCH ×4 (00:13→17:41)
[2020-07-02] MEDS: diphenhydrAMINE 25 MG CAP PO PRN ×3 (00:13→21:43)
[2020-07-02] MEDS: Budesonide 0.5 MG/2 ML NEB INH SCH ×2 (04:57→18:08)
[2020-07-02] MEDS: Bumetanide 1 MG/4 ML VIAL IVP SCH ×2 (05:23→15:17)
[2020-07-02] MEDS: hydrOXYzine Pamoate 25 mg Capsule PO PRN (05:33)
[2020-07-02 06:01] LABS: #Eosinphils 0.1 thou/uL (0.0-0.7); #Lymphocytes 0.8 thou/uL (1.20-3.40); #Monocytes 1.4 thou/uL (0.11-0.59); #Neutrophils 15.8 thou/uL (1.40-6.50); %Basophils 0.2 % (0.0-1.0); %Eosinophils 0.5 % (0.0-10.0); %Lymphocytes 4.4 % (21.0-51.0); %Monocytes 7.6 % (0.0-10.0); %Neutrophils 87.4 % (42.0-75.0); Hemoglobin 8.1 g/dL (14.0-18.0); Mean Corpuscular HGB CONC 31.4 g/dL (32.0-36.0); Mean Corpuscular Hemoglobin 27.8 pg (27.0-31.0); Mean Corpuscular Volume 88.4 fL (78.0-98.0); Mean Platelet Volume 9.3 fL (7.4-10.4); Platelet Count 273 thou/uL (130-400); RBC Distribution Width 18.2 % (11.5-14.5); Red Blood Cell (RBC) Count 2.93 mill/uL (4.70-6.10)
[2020-07-02 06:28] LABS: Anion Gap 19 mmol/L (10-20); BUN (Urea Nitrogen) 103 mg/dL (8.4-25.7); Calc. Creatinine Clearance 24 mL/min (70-130); Calcium 8.2 mg/dL (7.8-10.44); Carbon Dioxide 24 mmol/L (23-31); Chloride 102 mmol/L (98-107); Estimated GFR-MDRD 18; Glucose 157 mg/dL (83-110); Potassium 3.7 mmol/L (3.5-5.1); Sodium 141 mmol/L (136-145)
[2020-07-02] MEDS: Magnesium Oxide 400 MG TAB PO SCH (08:33)
[2020-07-02] MEDS: Senokot S 8.6-50 MG TAB PO SCH ×2 (08:33→21:37)
[2020-07-02] MEDS: Aspirin 81 mg Enteric Coated Tablet PO SCH (08:33)
[2020-07-02] MEDS: Cholecalciferol (Vitamin D3) 400 UNITS TAB PO SCH (08:33)
[2020-07-02] MEDS: Tamsulosin HCl 0.4 MG CAP PO SCH (08:33)
[2020-07-02] MEDS: Multivitamin W/ Minerals 1 TAB PO SCH (08:34)
[2020-07-02] MEDS: Acetaminophen 325 MG TAB PO PRN ×2 (08:34→21:43)
[2020-07-02] MEDS: guaiFENesin ER 600 MG TAB PO SCH ×2 (08:34→21:42)
[2020-07-02] MEDS: Enoxaparin Sodium 30 MG/0.3 ML SYRINGE SC SCH (08:34)
[2020-07-02] MEDS: Gabapentin 100 MG CAP PO SCH ×2 (08:34→21:42)
[2020-07-02] MEDS: methylPREDNISolone Sod Succ 40 MG VIAL IVP SCH (08:34)
[2020-07-02] MEDS: Ferrous Gluconate 324 MG TAB PO SCH ×2 (08:34→21:42)
--- NOTE | 2020-07-02 11:13 | PRG ---
DATE OF SERVICE: 07/02/2020 SUBJECTIVE: Mr. Mart sitting up in a recliner. He said he is still having trouble breathing. He is back on intravenous diuretics. He said he also had some pain across his lower chest. OBJECTIVE: VITAL SIGNS: His blood pressure 136/70, pulse 90 and it is regular. LUNGS: Clear. CARDIAC: Normal S1, normal S2. ABDOMEN: Obese, nontender. EXTREMITIES: Mild to moderate edema. LABORATORY DATA: Most recent creatinine was 3.37. Estimated GFR is 18. Potassium is 3.7. ASSESSMENT: 1. Stage IV renal failure close to stage V. 2. Diastolic heart failure, very difficult to control. 3. Chronic obstructive pulmonary disease. 4. Recent orthopedic surgery. 5. Underlying coronary disease. 6. Recurrent anemias. 7. The patient is in a very difficult situation, still may be slightly volume overloaded, but his renal function is worsening. We will order another BNP tomorrow. Continue diuretics. Prognosis unfortunately in this very pleasant gentleman is poor. Job ID: [id number]
--- NOTE | 2020-07-02 11:34 | PRG ---
DATE OF SERVICE: 07/02/2020 SUBJECTIVE: An 79-year-old gentleman, being seen for acute kidney injury. The patient denied nausea, vomiting, or chest pain. PHYSICAL EXAMINATION: GENERAL: The patient is awake and alert. VITAL SIGNS: Afebrile, pulse 94, breathing at 16, blood pressure 136/70. HEENT: Head normocephalic and atraumatic. Eyes intact, no ulcers. Nose intact, no ulcers. Ears intact, no ulcers. NECK: Supple. No JVD. CHEST: Symmetrical and clear. CARDIOVASCULAR: Shows S1 and S2, no rub, no murmur. GASTROINTESTINAL: Abdomen is soft, bowel sounds positive. EXTREMITIES: Show no edema or ulcers. SKIN: Shows no rash or petechiae. MUSCULOSKELETAL: Shows no joint swelling or stiffness. GENITOURINARY: Shows no De or CVA tenderness. NEUROLOGIC: Motor intact. Cranial nerves intact. LABORATORY DATA: Hemoglobin 8.1. Creatinine 3.3. ASSESSMENT AND PLAN: 1. Acute kidney injury with chronic kidney disease due to cardiorenal syndrome. Increase free water intake by 300 mL up to 1800 mL per 24 hours. 2. Anemia, stable. Medication based on GFR appropriate. 3. Hypokalemia, resolved. No indication for dialysis. Job ID: [id number]
[2020-07-02] MEDS: Fluticasone Propionate Nasal Spray 16 gm Bottle NASAL SCH (12:27)
--- NOTE | 2020-07-02 12:41 | PRG ---
DATE OF SERVICE: 07/02/2020 SUBJECTIVE: The patient is complaining of some abdominal pain. Otherwise, doing well. OBJECTIVE: VITAL SIGNS: Temperature 97.8, pulse 94, respirations 18, O2 saturation 98% on 4 L, blood pressure 180/86. HEENT: Unremarkable. NECK: No JVD. LUNGS: Clear but distant breath sounds. CARDIAC: S1, S2. Regular. ABDOMEN: Soft. EXTREMITIES: No edema. ASSESSMENT: 1. Diastolic heart failure. 2. Acute on chronic kidney disease. 3. Chronic obstructive pulmonary disease. PLAN: Reviewed medications. Continue nebulization solution, low-dose methylprednisolone. We will check again next week. Job ID: [id number]
--- NOTE | 2020-07-02 18:48 | PDOC.HOSPP ---
- Subjective Encounter Date: 07/02/20 Encounter Time: 16:00 Subjective: The patent states he does not feel well, he is still SOB but better than three weeks ago. No chest pain. He is ambulating some. He states his hip pain has improved. He wants his problems to be "fixed". is hoping that if PT walks him more it will help his heart failure Patient states his abdomen started hurting today in the LUQ. No nausea or vomiting - Objective Vital Signs & Weight: Vital Signs (12 hours) Temp Pulse Resp BP BP Pulse Ox 07/02/20 18:08 98 18 95 07/02/20 18:06 98 18 95 07/02/20 15:00 20 07/02/20 14:51 97.8 F 87 18 180/91 H 96 07/02/20 14:16 97 16 99 07/02/20 10:34 97.8 F 94 18 180/96 H 98 07/02/20 10:17 99 24 H 96 07/02/20 08:00 92 L 07/02/20 07:42 98.1 F 97 20 136/70 92 L Weight Admit Weight 195 lb Weight 217 lb 6.012 oz Most Recent Monitor Data Heart Rate from ECG 92 NIBP 119/85 NIBP BP-Mean 96 Respiration from ECG 22 SpO2 94 I&O: 07/01/20 07/02/20 07/03/20 06:59 06:59 06:59 Intake Total 20145 1100 Output Total 1325 1500 850 Balance 690 365 250 Result Diagrams: 07/02/20 05:14 07/02/20 05:14 Hospitalist ROS - Review of Systems Constitutional: denies: fever, chills - Medication Medications: Active Medications Generic Name Dose Route Start Last Admin Trade Name Freq PRN Reason Stop Dose Admin Acetaminophen 650 mg 06/03/20 16:52 07/02/20 08:34 Tylenol PO 650 mg Q4H PRN Administration Headache/Fever or Pain Albuterol/Ipratropium 3 ml 06/20/20 18:30 07/02/20 18:06 Duoneb NEB 3 ml [id number] SHORTY Administration Aspirin 81 mg 06/26/20 09:00 07/02/20 08:33 Ecotrin PO 81 mg DAILY SHORTY Administration Atorvastatin Calcium 20 mg 06/02/20 21:00 07/01/20 20:36 Lipitor PO 20 mg HS SHORTY Administration Budesonide 0.5 mg 06/19/20 18:30 07/02/20 18:08 Pulmicort Neb Solution INH 0.5 mg BID-RT SHORTY Administration Bumetanide 1 mg 07/01/20 18:45 07/02/20 15:17 Bumex IVP 1 mg 0600,1400 SHORTY Administration Cholecalciferol 800 units 06/07/20 09:00 07/02/20 08:33 Vitamin D PO 800 units DAILY SHORTY Administration Diphenhydramine HCl 25 mg 06/03/20 16:52 07/02/20 08:33 Benadryl PO 25 mg Q6H PRN Administration Itching Enoxaparin Sodium 30 mg 06/20/20 09:00 07/02/20 08:34 Lovenox SC 30 mg 0900 SHORTY Administration Fentanyl 50 mcg 06/02/20 10:54 06/02/20 14:34 Sublimaze SLOW IVP 50 mcg Q30M PRN Administration Severe breakthrough pain Ferrous Gluconate 324 mg 06/03/20 21:00 07/02/20 08:34 Fergon PO 324 mg BID SHORTY Administration Fluticasone Propionate 0 gm 06/20/20 09:00 07/02/20 12:27 Flonase Nasal [place] NASAL 1 spr DAILY SHORTY Administration Gabapentin 100 mg 06/02/20 21:00 07/02/20 08:34 Neurontin PO 100 mg BID SHORTY Administration Guaifenesin 600 mg 06/22/20 21:00 07/02/20 08:34 Mucinex PO 600 mg Q12HR SHORTY Administration Hydroxyzine Pamoate 25 mg 06/29/20 08:33 07/02/20 05:33 Vistaril PO 25 mg Q4H PRN Administration Hypersensitivity reaction Piperacillin Sod/Tazobactam 100 mls @ 200 mls/hr 06/27/20 12:00 07/02/20 17: 41 Sod 2.25 gm/ Sodium Chloride IVPB 100 mls Q6HR SHORTY Administration Daptomycin 500 mg/ Sodium 100 mls @ 200 mls/hr 06/27/20 11:00 07/01/20 10:19 Chloride IVPB 100 mls Q48H SHORTY Administration Iron/Minerals/Multivitamins 1 tab 06/04/20 09:00 07/02/20 08:34 Theragran M PO 1 tab DAILY SHORTY Administration Magnesium Oxide 400 mg 06/11/20 09:00 07/02/20 08:33 Magnesium Oxide PO 400 mg DAILY SHORTY Administration Methylprednisolone Sodium Succinate 20 mg 07/01/20 09:00 07/02/20 08:34 Solu-Medrol IVP 20 mg DAILY SHORTY Administration Morphine Sulfate 4 mg 06/02/20 10:54 06/03/20 11:58 Morphine SLOW IVP 4 mg Q2H PRN Administration Severe Pain (7-10) Pantoprazole Sodium 40 mg 06/02/20 21:00 07/02/20 08:34 Protonix PO 40 mg BID SHORTY Administration Senna/Docusate Sodium 2 tab 06/03/20 21:00 07/02/20 08:33 Senokot S PO 2 tab BID SHORTY Administration Tamsulosin HCl 0.4 mg 06/03/20 09:00 07/02/20 08:33 Flomax PO 0.4 mg DAILY SHORTY Administration Tramadol HCl 50 mg 06/18/20 17:00 07/01/20 20:40 Ultram PO 50 mg Q12H PRN Administration Mild Pain (1-3) - Exam General Appearance: NAD, awake alert Eye: PERRL, anicteric sclera ENT: normocephalic atraumatic, no oropharyngeal lesions Neck: no JVD Heart: RRR, no murmur, no gallops, no rubs Respiratory: CTAB, no wheezes, no rales, no ronchi Gastrointestinal: soft, non-distended, normal bowel sounds Gastrointestinal - other findings: LUQ tenderness Extremities: 1+ LE edema Extremities - other findings: no significant scrotal edema Skin: normal turgor, no lesions, no rashes Neurological: cranial nerve grossly intact, normal sensation to touch, no focal deficits, no new deficit Hosp A/P - Plan Chest X ray: widespread interstitial reticulonodular prominence Testicular ultrasound: Small right-sided hydrocele. Bilateral epididymal cysts with mild heterogeneity of the epididymis. Severe scrotal wall thickening. CT abdomen: prominent edema and fluid infiltration throughout the scrotum without soft tissue gas or evidence of abscess. Renal US: no obstructive uropathy. Splneomegaly. 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 Has been in the hospital for > 1 month due to heart failure Acute diastolic heart failure secondary to pulmonary edema - ECHO 06/03 showed severely elevated pulm artery pressure . Chest X ray shows widespread interstitial reticulonodular prominence - was on IV lasix, then lasix drip. Now on bumex - creatinine however is worsening, unclear prognosis. Cardiology and nephrology are following Acute kidney injury - from cardiorenal syndrome - creatinine worsening up to 3.37 - per nephro no indication for dialysis. 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 Was on vanc and meropenem, but switched to daptomycin and zosyn due to urticaria - WBC is downtrending -. Continue antibiotics through the end of June per Dr. Beaver Scrotal swelling/edema -resolved - testicular ultrasound showed possible cellulitis. CT abdomen showed edema, no air or gas. Urology consulted, thought no signs of Eladia's and from fluid - continue diuretics #Anemia -pateint has received 5 unit of PRBC while in the hospital, last transfusion - currently stable, will monitor Vitamin D deficiency - resolved, - started on vitamin D supplementation given slightly low levels of 23 Physical deconditioning - continue PT and OT DVT prophylaxis: lovenox GI prophylaxis: not needed Disposition: will need rehab on discharge
[2020-07-02] MEDS: Atorvastatin Calcium 20 MG TAB PO SCH (21:42)
[2020-07-02] MEDS: traMADol HCl 50 MG TAB PO PRN (21:43)
--- NOTE | 2020-07-02 22:10 | RAD ---
Exam: Chest one view HISTORY:Evaluate pulmonary edema. Follow-up. COPD. Comparison: 06/29/2020 FINDINGS: Cardiac silhouette:Stable cardiomegaly. Stable left-sided PICC line. Stable pleural mass in the left atrial appendage. 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 Pneumothorax: None Osseous abnormalities: Multiple old left rib fractures. IMPRESSION: 1. Persistent interstitial and alveolar opacities. Possible congestive heart failure. Superimposed pn eumonia cannot be excluded. 2. Redemonstration of a left-sided PICC line. 3. Atherosclerosis.
[2020-07-03] MEDS: Piperacillin/Tazobactam 2.25 GM in Sodium Chloride 0.9% 100 ML IVPB SCH ×4 (01:04→18:16)
[2020-07-03] MEDS: Bumetanide 1 MG/4 ML VIAL IVP SCH (05:51)
[2020-07-03] MEDS: hydrOXYzine Pamoate 25 mg Capsule PO PRN (05:52)
[2020-07-03] MEDS: Budesonide 0.5 MG/2 ML NEB INH SCH ×2 (06:32→18:28)
[2020-07-03 06:49] LABS: Hemoglobin 7.8 g/dL (14.0-18.0); Mean Corpuscular HGB CONC 30.4 g/dL (32.0-36.0); Mean Corpuscular Hemoglobin 27.1 pg (27.0-31.0); Mean Platelet Volume 9.5 fL (7.4-10.4); Platelet Count 271 thou/uL (130-400); RBC Distribution Width 18.2 % (11.5-14.5); Red Blood Cell (RBC) Count 2.88 mill/uL (4.70-6.10); White Blood Cell (WBC) Count 19.8 thou/uL (4.8-10.8)
[2020-07-03 06:50] LABS: Band 1 % (5-11); Eosinophils 3 % (0-10); Lymphocytes 2 % (21-51); MDiff Complete? YES; Monocytes 7 % (0-10); Myelocyte 2 % (0-0); Schistocytes SLIGHT = 2-5 cells (100X) (0-1/hpf)
[2020-07-03] MEDS: Enoxaparin Sodium 30 MG/0.3 ML SYRINGE SC SCH (08:04)
[2020-07-03] MEDS: Ferrous Gluconate 324 MG TAB PO SCH ×2 (08:04→20:08)
[2020-07-03] MEDS: Senokot S 8.6-50 MG TAB PO SCH ×2 (08:04→21:26)
[2020-07-03] MEDS: Cholecalciferol (Vitamin D3) 400 UNITS TAB PO SCH (08:04)
[2020-07-03] MEDS: Multivitamin W/ Minerals 1 TAB PO SCH (08:04)
[2020-07-03] MEDS: guaiFENesin ER 600 MG TAB PO SCH ×2 (08:04→20:07)
[2020-07-03] MEDS: Tamsulosin HCl 0.4 MG CAP PO SCH (08:05)
[2020-07-03] MEDS: Magnesium Oxide 400 MG TAB PO SCH (08:05)
[2020-07-03] MEDS: Gabapentin 100 MG CAP PO SCH ×2 (08:05→20:07)
[2020-07-03] MEDS: methylPREDNISolone Sod Succ 40 MG VIAL IVP SCH (08:05)
[2020-07-03] MEDS: Aspirin 81 mg Enteric Coated Tablet PO SCH (08:05)
[2020-07-03] MEDS: Fluticasone Propionate Nasal Spray 16 gm Bottle NASAL SCH (08:05)
[2020-07-03] MEDS ORDERED: Metolazone 2.5 MG TAB PO SCH (11:00)
[2020-07-03] MEDS: DAPTOmycin 500 MG in Sodium Chloride 0.9% 100 ML IVPB SCH (11:31)
[2020-07-03 12:00] LABS: Anion Gap 19 mmol/L (10-20); BUN (Urea Nitrogen) 98 mg/dL (8.4-25.7); Calc. Creatinine Clearance 27 mL/min (70-130); Calcium 8.1 mg/dL (7.8-10.44); Carbon Dioxide 22 mmol/L (23-31); Chloride 105 mmol/L (98-107); Estimated GFR-MDRD 20; Glucose 190 mg/dL (83-110); Potassium 3.8 mmol/L (3.5-5.1); Sodium 142 mmol/L (136-145)
--- NOTE | 2020-07-03 15:09 | PRG ---
DATE OF SERVICE: 07/03/2020 SUBJECTIVE: An 79-year-old gentleman being seen for acute kidney injury. The patient denied any nausea, vomiting, or chest pain. OBJECTIVE: General: The patient is awake and alert. Vital Signs: Afebrile, pulse breathing at 16, blood pressure /74. HEENT: Head normocephalic and atraumatic. Eyes intact, no ulcers. Nose intact, no ulcers. Ears intact, no ulcers. Neck: Supple. No JVD. Chest: Symmetrical and clear. Cardiovascular: Shows S1 and S2, no rub, no murmur. Gastrointestinal: Abdomen is soft, bowel sounds positive. Extremities: Show no edema or ulcers. Skin: Shows no rash or petechiae. Musculoskeletal: Shows no joint swelling or stiffness. Genitourinary: Shows no De or CVA tenderness. Neurologic: Motor intact. Cranial nerves intact. LABORATORY STUDIES: Hemoglobin 7.8. ASSESSMENT AND PLAN: 1. Chronic kidney disease stage 4, stable. 2. Hypertension, stable. 3. Anemia, stable. 4. Congestive heart failure. We will increase Bumex to 2 mg b.i.d. and add Zaroxolyn. Anemia, would recommend transfusion. Hypertension, stable. Medication based on GFR appropriate. Job ID: [id number]
--- NOTE | 2020-07-03 15:38 | PDOC.HOSPP ---
- Subjective Encounter Date: 07/03/20 Encounter Time: 13:00 Subjective: The patient states his SOB has improved. He has a lot of urine in his land[place] catheter this am. Denies chest pain Patient is agreeable to go to rehab after discharge - Objective Vital Signs & Weight: Vital Signs (12 hours) Temp Pulse Resp BP BP Pulse Ox 07/03/20 13:30 114 H 20 94 L 07/03/20 11:08 97.8 F 97 18 152/84 H 92 L 07/03/20 10:27 89 16 96 07/03/20 08:00 97.7 F 98 18 152/74 H 91 L 07/03/20 06:32 82 16 95 07/03/20 04:00 97.7 F 80 18 166/69 H 98 Weight Admit Weight 195 lb Weight 218 lb 4.122 oz Most Recent Monitor Data Heart Rate from ECG 92 NIBP 119/85 NIBP BP-Mean 96 Respiration from ECG 22 SpO2 94 I&O: 07/02/20 07/03/20 07/04/20 06:59 06:59 06:59 Intake Total 1865 1780 Output Total 1500 1650 Balance 365 130 Result Diagrams: 07/03/20 05:46 07/03/20 11:24 Hospitalist ROS - Review of Systems Constitutional: denies: fever, chills - Medication Medications: Active Medications Generic Name Dose Route Start Last Admin Trade Name Freq PRN Reason Stop Dose Admin Acetaminophen 650 mg 06/03/20 16:52 07/02/20 21:43 Tylenol PO 650 mg Q4H PRN Administration Headache/Fever or Pain Albuterol/Ipratropium 3 ml 06/20/20 18:30 07/03/20 13:30 Duoneb NEB 3 ml [id number] SHORTY Administration Aspirin 81 mg 06/26/20 09:00 07/03/20 08:05 Ecotrin PO 81 mg DAILY SHORTY Administration Atorvastatin Calcium 20 mg 06/02/20 21:00 07/02/20 21:42 Lipitor PO 20 mg HS SHORTY Administration Budesonide 0.5 mg 06/19/20 18:30 07/03/20 06:32 Pulmicort Neb Solution INH 0.5 mg BID-RT SHORTY Administration Cholecalciferol 800 units 06/07/20 09:00 07/03/20 08:04 Vitamin D PO 800 units DAILY SHORTY Administration Diphenhydramine HCl 25 mg 06/03/20 16:52 07/02/20 21:43 Benadryl PO 25 mg Q6H PRN Administration Itching Enoxaparin Sodium 30 mg 06/20/20 09:00 07/03/20 08:04 Lovenox SC 30 mg 0900 SHORTY Administration Fentanyl 50 mcg 06/02/20 10:54 06/02/20 14:34 Sublimaze SLOW IVP 50 mcg Q30M PRN Administration Severe breakthrough pain Ferrous Gluconate 324 mg 06/03/20 21:00 07/03/20 08:04 Fergon PO 324 mg BID SHORTY Administration Fluticasone Propionate 0 gm 06/20/20 09:00 07/03/20 08:05 Flonase Nasal [place] NASAL 1 spr DAILY SHORTY Administration Gabapentin 100 mg 06/02/20 21:00 07/03/20 08:05 Neurontin PO 100 mg BID HSORTY Administration Guaifenesin 600 mg 06/22/20 21:00 07/03/20 08:04 Mucinex PO 600 mg Q12HR SHORTY Administration Hydroxyzine Pamoate 25 mg 06/29/20 08:33 07/03/20 05:52 Vistaril PO 25 mg Q4H PRN Administration Hypersensitivity reaction Piperacillin Sod/Tazobactam 100 mls @ 200 mls/hr 06/27/20 12:00 07/03/20 12: 20 Sod 2.25 gm/ Sodium Chloride IVPB 100 mls Q6HR SHORTY Administration Daptomycin 500 mg/ Sodium 100 mls @ 200 mls/hr 06/27/20 11:00 07/03/20 11:31 Chloride IVPB 100 mls Q48H SHORTY Administration Iron/Minerals/Multivitamins 1 tab 06/04/20 09:00 07/03/20 08:04 Theragran M PO 1 tab DAILY SHORTY Administration Magnesium Oxide 400 mg 06/11/20 09:00 07/03/20 08:05 Magnesium Oxide PO 400 mg DAILY SHORTY Administration Methylprednisolone Sodium Succinate 20 mg 07/01/20 09:00 07/03/20 08:05 Solu-Medrol IVP 20 mg DAILY SHORTY Administration Morphine Sulfate 4 mg 06/02/20 10:54 06/03/20 11:58 Morphine SLOW IVP 4 mg Q2H PRN Administration Severe Pain (7-10) Pantoprazole Sodium 40 mg 06/02/20 21:00 07/03/20 08:04 Protonix PO 40 mg BID SHORTY Administration Senna/Docusate Sodium 2 tab 06/03/20 21:00 07/03/20 08:04 Senokot S PO 2 tab BID SHORTY Administration Tamsulosin HCl 0.4 mg 06/03/20 09:00 07/03/20 08:05 Flomax PO 0.4 mg DAILY SHORTY Administration Tramadol HCl 50 mg 06/18/20 17:00 07/02/20 21:43 Ultram PO 50 mg Q12H PRN Administration Mild Pain (1-3) - Exam General Appearance: NAD, awake alert Eye: PERRL, anicteric sclera ENT: normocephalic atraumatic, no oropharyngeal lesions Neck: no JVD Heart: RRR, no murmur, no gallops, no rubs Respiratory - other findings: mild crackles in upper lobes Gastrointestinal: soft, non-tender, non-distended Extremities: no cyanosis, no clubbing, no edema Hosp A/P - Plan Chest X ray: widespread interstitial reticulonodular prominence Testicular ultrasound: Small right-sided hydrocele. Bilateral epididymal cysts with mild heterogeneity of the epididymis. Severe scrotal wall thickening. CT abdomen: prominent edema and fluid infiltration throughout the scrotum without soft tissue gas or evidence of abscess. Renal US: no obstructive uropathy. Splneomegaly. 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 Has been in the hospital for > 1 month due to heart failure Acute diastolic heart failure secondary to pulmonary edema - ECHO 06/03 showed severely elevated pulm artery pressure . Chest X ray shows widespread interstitial reticulonodular prominence - was on IV lasix, then lasix drip. Now on bumex, increase to 2 mg bid and added metolazone per nephrology. Creatinine improved to 3.05 Acute kidney injury - from cardiorenal syndrome - creatinine improved to 3.07 - bumex increased and added metolazone per nephrology - per nephro no indication for dialysis. 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 Was on vanc and meropenem, but switched to daptomycin and zosyn due to urticaria - WBC is trending up - on daptomycin and zosyn, appreciate ID recs Scrotal swelling/edema -resolved - testicular ultrasound showed possible cellulitis. CT abdomen showed edema, no air or gas. Urology consulted, thought no signs of Eladia's and from fluid - continue diuretics #Anemia -patient has received 5 unit of PRBC while in the hospital, last transfusion . Will transfuse if Hb < 7 - currently stable, will monitor Vitamin D deficiency - resolved, - started on vitamin D supplementation given slightly low levels of 23 Physical deconditioning - continue PT and OT DVT prophylaxis: lovenox GI prophylaxis: not needed Disposition: will need rehab on discharge
--- NOTE | 2020-07-03 17:30 | RAD ---
Exam: Chest one view HISTORY:Evaluate for heart failure Comparison: 07/02/2020 FINDINGS: Cardiac silhouette:Stable cardiomegaly. Lines and tubes: Stable left-sided PICC line Aorta: Stable atherosclerosis. Stable metallic coil in the atrial appendage Pulmonary vessels: Normal Costophrenic angles: Clear LUNGS: Slightly improved aeration of the lung parenchyma. There are stable scattered interstitial and alveolar opacities. Pneumothorax: None Osseous abnormalities: None IMPRESSION: 1. Cardiomegaly 2. Atherosclerosis 3. Improved aeration of the lung parenchyma. Multi lobar interstitial and alveolar opacities do remai n.
[2020-07-03] MEDS: traMADol HCl 50 MG TAB PO PRN (18:24)
[2020-07-03] MEDS: Atorvastatin Calcium 20 MG TAB PO SCH (20:07)
[2020-07-03] MEDS: Acetaminophen 325 MG TAB PO PRN (20:07)
[2020-07-03] MEDS: diphenhydrAMINE 25 MG CAP PO PRN (20:08)
[2020-07-04] MEDS: Piperacillin/Tazobactam 2.25 GM in Sodium Chloride 0.9% 100 ML IVPB SCH ×4 (00:22→18:10)
[2020-07-04 04:59] LABS: Hemoglobin 7.8 g/dL (14.0-18.0); Mean Corpuscular HGB CONC 30.7 g/dL (32.0-36.0); Mean Corpuscular Hemoglobin 27.2 pg (27.0-31.0); Mean Corpuscular Volume 88.5 fL (78.0-98.0); Platelet Count 266 thou/uL (130-400); Red Blood Cell (RBC) Count 2.86 mill/uL (4.70-6.10); White Blood Cell (WBC) Count 23.6 thou/uL (4.8-10.8)
[2020-07-04 05:15] LABS: Anion Gap 18 mmol/L (10-20); BUN (Urea Nitrogen) 99 mg/dL (8.4-25.7); Calc. Creatinine Clearance 29 mL/min (70-130); Calcium 7.8 mg/dL (7.8-10.44); Carbon Dioxide 23 mmol/L (23-31); Chloride 104 mmol/L (98-107); Estimated GFR-MDRD 21; Glucose 166 mg/dL (83-110); Potassium 3.6 mmol/L (3.5-5.1); Sodium 141 mmol/L (136-145)
[2020-07-04] MEDS: Bumetanide 1 MG/4 ML VIAL IVP SCH ×2 (05:22→14:30)
[2020-07-04] MEDS: diphenhydrAMINE 25 MG CAP PO PRN ×3 (05:26→20:49)
[2020-07-04] MEDS: Acetaminophen 325 MG TAB PO PRN ×2 (05:41→20:48)
[2020-07-04] MEDS: Budesonide 0.5 MG/2 ML NEB INH SCH ×2 (07:50→18:36)
[2020-07-04] MEDS: methylPREDNISolone Sod Succ 40 MG VIAL IVP SCH (08:00)
[2020-07-04] MEDS: Enoxaparin Sodium 30 MG/0.3 ML SYRINGE SC SCH (08:00)
[2020-07-04] MEDS: Senokot S 8.6-50 MG TAB PO SCH ×2 (08:01→20:49)
[2020-07-04] MEDS: Magnesium Oxide 400 MG TAB PO SCH (08:01)
[2020-07-04] MEDS: Tamsulosin HCl 0.4 MG CAP PO SCH (08:01)
[2020-07-04] MEDS: guaiFENesin ER 600 MG TAB PO SCH ×2 (08:01→20:49)
[2020-07-04] MEDS: Cholecalciferol (Vitamin D3) 400 UNITS TAB PO SCH (08:01)
[2020-07-04] MEDS: Gabapentin 100 MG CAP PO SCH ×2 (08:01→20:49)
[2020-07-04] MEDS: Ferrous Gluconate 324 MG TAB PO SCH ×2 (08:01→20:49)
[2020-07-04] MEDS: Multivitamin W/ Minerals 1 TAB PO SCH (08:01)
[2020-07-04] MEDS: Aspirin 81 mg Enteric Coated Tablet PO SCH (08:01)
--- NOTE | 2020-07-04 08:13 | PDOC.HOSPP ---
- Subjective Encounter Date: 07/04/20 Encounter Time: 07:30 Subjective: The patient states he feels fine. He is less SOB. Wants to leave the hospital soon He has productive cough with phlegm - Objective Vital Signs & Weight: Vital Signs (12 hours) Temp Pulse Resp BP Pulse Ox 07/04/20 07:51 97 07/04/20 07:48 90 20 97 07/04/20 03:57 97.9 F 90 18 143/76 H 97 07/04/20 02:26 101 H 16 97 07/04/20 02:25 101 H 16 97 07/03/20 23:43 98.1 F 98 18 147/74 H 97 07/03/20 22:52 100 17 Weight Admit Weight 195 lb Weight 224 lb 13.944 oz Most Recent Monitor Data Heart Rate from ECG 92 NIBP 119/85 NIBP BP-Mean 96 Respiration from ECG 22 SpO2 94 I&O: 07/03/20 07/04/20 07/05/20 06:59 06:59 06:59 Intake Total 1780 1900 Output Total 1650 2200 Balance 130 -300 Result Diagrams: 07/04/20 04:40 07/04/20 04:40 Hospitalist ROS - Review of Systems Constitutional: denies: fever, chills - Medication Medications: Active Medications Generic Name Dose Route Start Last Admin Trade Name Freq PRN Reason Stop Dose Admin Acetaminophen 650 mg 06/03/20 16:52 07/04/20 05:41 Tylenol PO 650 mg Q4H PRN Administration Headache/Fever or Pain Albuterol/Ipratropium 3 ml 06/20/20 18:30 07/04/20 07:48 Duoneb NEB 3 ml [id number] SHORTY Administration Aspirin 81 mg 06/26/20 09:00 07/04/20 08:01 Ecotrin PO 81 mg DAILY SHORTY Administration Atorvastatin Calcium 20 mg 06/02/20 21:00 07/03/20 20:07 Lipitor PO 20 mg HS SHORTY Administration Budesonide 0.5 mg 06/19/20 18:30 07/04/20 07:50 Pulmicort Neb Solution INH 0.5 mg BID-RT SHORTY Administration Bumetanide 2 mg 07/03/20 10:48 07/04/20 05:22 Bumex IVP 2 mg 0600,1400 SHORTY Administration Cholecalciferol 800 units 08/18/20 09:00 07/04/20 08:01 Vitamin D PO 800 units DAILY SHORTY Administration Diphenhydramine HCl 25 mg 06/03/20 16:52 07/04/20 05:26 Benadryl PO 25 mg Q6H PRN Administration Itching Enoxaparin Sodium 30 mg 06/20/20 09:00 07/04/20 08:00 Lovenox SC 30 mg 0900 SHORTY Administration Fentanyl 50 mcg 06/02/20 10:54 06/02/20 14:34 Sublimaze SLOW IVP 50 mcg Q30M PRN Administration Severe breakthrough pain Ferrous Gluconate 324 mg 06/03/20 21:00 07/04/20 08:01 Fergon PO 324 mg BID SHORTY Administration Fluticasone Propionate 0 gm 06/20/20 09:00 07/03/20 08:05 Flonase Nasal [place] NASAL 1 spr DAILY SHORTY Administration Gabapentin 100 mg 06/02/20 21:00 07/04/20 08:01 Neurontin PO 100 mg BID SHORTY Administration Guaifenesin 600 mg 06/22/20 21:00 07/04/20 08:01 Mucinex PO 600 mg Q12HR SHORTY Administration Hydroxyzine Pamoate 25 mg 06/29/20 08:33 07/03/20 05:52 Vistaril PO 25 mg Q4H PRN Administration Hypersensitivity reaction Piperacillin Sod/Tazobactam 100 mls @ 200 mls/hr 06/27/20 12:00 07/04/20 05: 25 Sod 2.25 gm/ Sodium Chloride IVPB 100 mls Q6HR SHORTY Administration Daptomycin 500 mg/ Sodium 100 mls @ 200 mls/hr 06/27/20 11:00 07/03/20 11:31 Chloride IVPB 100 mls Q48H SHORTY Administration Iron/Minerals/Multivitamins 1 tab 06/04/20 09:00 07/04/20 08:01 Theragran M PO 1 tab DAILY SHORTY Administration Magnesium Oxide 400 mg 06/11/20 09:00 07/04/20 08:01 Magnesium Oxide PO 400 mg DAILY SHORTY Administration Methylprednisolone Sodium Succinate 20 mg 07/01/20 09:00 07/04/20 08:00 Solu-Medrol IVP 20 mg DAILY SHORTY Administration Morphine Sulfate 4 mg 06/02/20 10:54 06/03/20 11:58 Morphine SLOW IVP 4 mg Q2H PRN Administration Severe Pain (7-10) Pantoprazole Sodium 40 mg 06/02/20 21:00 07/04/20 08:02 Protonix PO 40 mg BID SHORTY Administration Senna/Docusate Sodium 2 tab 06/03/20 21:00 07/04/20 08:01 Senokot S PO 2 tab BID SHORTY Administration Tamsulosin HCl 0.4 mg 06/03/20 09:00 07/04/20 08:01 Flomax PO 0.4 mg DAILY SHORTY Administration Tramadol HCl 50 mg 06/18/20 17:00 07/03/20 18:24 Ultram PO 50 mg Q12H PRN Administration Mild Pain (1-3) - Exam General Appearance: NAD, awake alert Eye: PERRL, anicteric sclera ENT: normocephalic atraumatic, no oropharyngeal lesions Neck: no JVD Heart: RRR, no murmur, no gallops, no rubs Respiratory: CTAB, no wheezes, no rales, no ronchi Gastrointestinal: soft, non-tender, non-distended, normal bowel sounds, no hepatomegaly Extremities: no cyanosis, no clubbing, no edema Skin: normal turgor, no lesions, no rashes Neurological: cranial nerve grossly intact, normal sensation to touch Hosp A/P - Plan Chest X ray: widespread interstitial reticulonodular prominence Testicular ultrasound: Small right-sided hydrocele. Bilateral epididymal cysts with mild heterogeneity of the epididymis. Severe scrotal wall thickening. CT abdomen: prominent edema and fluid infiltration throughout the scrotum without soft tissue gas or evidence of abscess. Renal US: no obstructive uropathy. Splneomegaly. 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 Has been in the hospital for > 1 month due to heart failure Acute diastolic heart failure secondary to pulmonary edema - ECHO 06/03 showed severely elevated pulm artery pressure . 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 Was on vanc and meropenem, but switched to daptomycin and zosyn due to urticaria - WBC is trending up to 23. I have asked Dr. Beaver about whether antibiotics need to be changed Scrotal swelling/edema -resolved - testicular ultrasound showed possible cellulitis. CT abdomen showed edema, no air or gas. Urology consulted, thought no signs of Eladia's and from fluid - continue diuretics #Anemia -patient has received 5 unit of PRBC while in the hospital, last transfusion . - hemoglobin 7.8 Vitamin D deficiency - resolved, - started on vitamin D supplementation given slightly low levels of 23 Physical deconditioning - continue PT and OT DVT prophylaxis: lovenox GI prophylaxis: not needed Disposition: will need rehab on discharge
[2020-07-04] MEDS: Fluticasone Propionate Nasal Spray 16 gm Bottle NASAL SCH (08:15)
--- NOTE | 2020-07-04 08:16 | RAD ---
EXAM: CHEST ONE VIEW HISTORY: Follow-up pulmonary edema COMPARISON: 07/03/2020 FINDINGS: Left-sided PICC line remains in place. Cardiac silhouette is magnified by projection but does appear mildly enlarged. Coil mass again overlies the expected location of the left atrial appendage likely related to prior left atrial closure procedure. There are scattered increased interstitial and patchy parenchymal densities within the lungs bilaterally. Findings could be related to mild asymmetric pulmonary edema or possibly infectious process. Continued follow-up to resolution is recommended. Rem ote left-sided rib fractures are again seen. Vascular calcifications are seen in the thoracic aorta. IMPRESSION: 1. Cardiomegaly. 2. Scattered increased interstitial and patchy parenchymal densities which could be related to asymme tric pulmonary edema or infectious process. Follow-up to resolution is recommended.
--- NOTE | 2020-07-04 11:46 | PRG ---
DATE OF SERVICE: 07/04/2020 SUBJECTIVE: Patient was seen and examined at bedside and overnight events noted. Patient denies any shortness of breath or chest pain or palpitation. No history of nausea or vomiting or diarrhea or fever or chills or cramps. OBJECTIVE: GENERAL: This is a well-built male, in no apparent distress, sitting up in the chair in the room. VITAL SIGNS: Temperature 97.6. Heart rate 104. Respiratory rate 20. Blood pressure 172/83. HEENT: Atraumatic, normocephalic. Oral mucosa is moist NECK: Supple. CARDIOVASCULAR: S1, S2 heard. Rate and rhythm regular. RESPIRATORY: Clear to auscultation. GASTROINTESTINAL: Abdomen is soft. MUSCULOSKELETAL: No tenderness. 2+ edema. DERMATOLOGIC: No skin rash. NEUROLOGIC: Alert and awake and oriented X3. No focal neurologic deficits. Moving all the extremities. PSYCHIATRIC: Mood and affect normal. LABORATORY DATA: Potassium 3.6, BUN is 99, creatinine is 2.9. ASSESSMENT AND PLAN: 1. Acute kidney injury on chronic kidney disease, stage 4, with stable creatinine. Continues to have edema. 2. Cardiorenal syndrome. Cardiology on board. 3. Hypokalemia. Replace and monitor. 4. Edema. 5. Hypertension. 6. Anemia of chronic disease. Diuretics being adjusted by Cardiology and also Dr. Weinberg. Currently, on Bumex 2 mg IV twice a day, also metolazone as needed. The patient remains edematous. We will monitor renal function closely. Job ID: [id number]
--- NOTE | 2020-07-04 18:37 | PRG ---
DATE OF SERVICE: 07/04/2020 SUBJECTIVE: Bin Mart, a patient of Dr. Shipman, who this morning is complaining of vague chest pain. May take a deep breath. His x-ray today did not show any new infiltrates or any acute infiltrates. OBJECTIVE: VITAL SIGNS: His temperature 98, pulse 90, respirations 20, saturations 96% on 4 L, blood pressure 160/83. CHEST: No wheezing. No crackles. CARDIAC: Normal S1 and S2. No gallops. ABDOMEN: No masses. LABORATORY DATA: BNP is elevated to 520. Creatinine is 2, BUN 99. White count 23,000. ASSESSMENT: Chronic obstructive pulmonary disease, renal failure, chronic diastolic dysfunction, elevated BNP, severe deconditioning. PLAN: 1. Pulmonary bloton, continue Pulmicort neb treatment and supportive care. 2. We will probably switch him over to prednisone tomorrow and broad-spectrum antibiotics as per Infectious Disease. We will continue to follow. Job ID: [id number]
--- NOTE | 2020-07-04 18:51 | PRG ---
DATE OF SERVICE: 07/04/2020 SUBJECTIVE: Mr. Mart is seen by the bedside. His is in the room with him. He is eating lunch. He is feeling a little better. Particularly, in reference to his skin, it is not itching as much. He is still moderately dyspneic. Actually, he does have what he describes as a sharp pain in the upper segment of the epigastric area close to the ribcage. The remainder of the abdomen is okay. No urinary issues except for the indwelling De catheter. I's and O's were positive 600, 300, and then 100 over the past 3 days, and thus far today, negative at 300. OBJECTIVE: LUNGS: With diminished breath sounds. No obvious crackles or wheezing. HEART: S1 and S2. Regular rate. ABDOMEN: Soft. Not distended. No ascites. EXTREMITIES: Moves extremities equally. SKIN: Improved. LABORATORY DATA: White cell count is at 23.6, hemoglobin 7.8, platelets 266. Creatinine 2.95. ASSESSMENT AND DISCUSSION: Chronic renal insufficiency, stage 3 to 4; atrial fibrillation; hypertension; chronic obstructive pulmonary disease with home O2; hypoxemia; multiple recurring infections; left hemiarthroplasty with latest intervention consisting of total hip replacement as revision. Previous methicillin-resistant Staphylococcus aureus infections; now, Morganella isolated in broth only. Hypersensitivity reaction to previous antimicrobial regimen; now, he has been switched to Zosyn and daptomycin. Skin hypersensitivity reaction is subsiding if not subsided. The neutrophilia is related to the methylprednisolone dose that was given. Over the past few days, the dose has been decreased and restarted at a fairly high level, and I think what we are seeing is the residual effect of the course of methylprednisolone. Job ID: [id number]
[2020-07-04] MEDS: Atorvastatin Calcium 20 MG TAB PO SCH (20:49)
[2020-07-05] MEDS: Piperacillin/Tazobactam 2.25 GM in Sodium Chloride 0.9% 100 ML IVPB SCH ×5 (00:10→23:20)
--- NOTE | 2020-07-05 04:53 | PDOC.EVN ---
Event Note - Event Note Event Note: Patient accidentally DC'd PICC line, tip intact. Order entered to have another double-lumen PICC line placed today.
[2020-07-05 05:14] LABS: Hemoglobin 7.6 g/dL (14.0-18.0); Mean Corpuscular HGB CONC 30.8 g/dL (32.0-36.0); Mean Corpuscular Hemoglobin 27.6 pg (27.0-31.0); Mean Corpuscular Volume 89.7 fL (78.0-98.0); Mean Platelet Volume 9.4 fL (7.4-10.4); Platelet Count 309 thou/uL (130-400); RBC Distribution Width 19.9 % (11.5-14.5); Red Blood Cell (RBC) Count 2.77 mill/uL (4.70-6.10); White Blood Cell (WBC) Count 25.5 thou/uL (4.8-10.8)
[2020-07-05] MEDS: Budesonide 0.5 MG/2 ML NEB INH SCH (06:29)
[2020-07-05] MEDS: Bumetanide 1 MG/4 ML VIAL IVP SCH ×2 (06:54→13:59)
[2020-07-05] MEDS: Senokot S 8.6-50 MG TAB PO SCH ×2 (08:35→20:23)
[2020-07-05] MEDS: Magnesium Oxide 400 MG TAB PO SCH (08:36)
[2020-07-05] MEDS: guaiFENesin ER 600 MG TAB PO SCH ×2 (08:36→20:22)
[2020-07-05] MEDS: Aspirin 81 mg Enteric Coated Tablet PO SCH (08:36)
[2020-07-05] MEDS: Cholecalciferol (Vitamin D3) 400 UNITS TAB PO SCH (08:36)
[2020-07-05] MEDS: Multivitamin W/ Minerals 1 TAB PO SCH (08:36)
[2020-07-05] MEDS: Tamsulosin HCl 0.4 MG CAP PO SCH (08:37)
[2020-07-05] MEDS: Gabapentin 100 MG CAP PO SCH ×2 (08:37→20:22)
[2020-07-05] MEDS: Ferrous Gluconate 324 MG TAB PO SCH ×2 (08:37→20:22)
[2020-07-05] MEDS: Enoxaparin Sodium 30 MG/0.3 ML SYRINGE SC SCH (08:37)
[2020-07-05] MEDS: Fluticasone Propionate Nasal Spray 16 gm Bottle NASAL SCH (08:38)
--- NOTE | 2020-07-05 10:04 | PRG ---
DATE OF SERVICE: 07/05/2020 SUBJECTIVE: This morning, he is awake, alert, responsive, less short of breath. OBJECTIVE: VITAL SIGNS: Temperature 98, pulse 91, respirations 16, sats 92 on 4 L, blood pressure 137/72. CHEST: No wheezing, no crackles. CARDIAC: Normal S1 and S2. ABDOMEN: No mass. LABORATORY DATA: Creatinine is 2.6. IMPRESSION: 1. Chronic obstructive pulmonary disease, respiratory failure, stable. 2. Renal failure. 3. Methicillin-resistant Staphylococcus aureus, now Morganella from a left hip infection, on multiple antibiotics. PLAN: medrol iv been discontinued. Continue neb treatment and Dulera. We will follow. Job ID: [id number] [facility]
[2020-07-05 11:52] LABS: Neutrophil 85 % (42-75)
[2020-07-05] MEDS: DAPTOmycin 500 MG in Sodium Chloride 0.9% 100 ML IVPB SCH (12:24)
[2020-07-05 13:18] LABS: ALT (SGPT) 20 U/L (8-55); AST (SGOT) 15 U/L (5-34); Albumin 3.3 g/dL (3.4-4.8); Alkaline Phosphatase 84 U/L (40-110); Anion Gap 19 mmol/L (10-20); BUN (Urea Nitrogen) 92 mg/dL (8.4-25.7); Bilirubin, Total 0.6 mg/dL (0.2-1.2); Calc. Creatinine Clearance 31 mL/min (70-130); Calcium 8.1 mg/dL (7.8-10.44); Carbon Dioxide 24 mmol/L (23-31); Chloride 103 mmol/L (98-107); Estimated GFR-MDRD 23; Globulin 2.1 g/dL (2.4-3.5); Glucose 107 mg/dL (83-110); Magnesium 2.5 mg/dL (1.6-2.6); Potassium 3.1 mmol/L (3.5-5.1); Protein, Total 5.4 g/dL (5.8-8.1); Sodium 143 mmol/L (136-145)
[2020-07-05] MEDS ORDERED: Milrinone Lactate/D5W 20 MG in Premix Bag 1 BAG IV SCH (13:30)
--- NOTE | 2020-07-05 13:40 | PRG ---
DATE OF SERVICE: 07/05/2020 SUBJECTIVE: The patient was seen and examined at bedside and overnight events noted. The patient denies any shortness of breath or chest pain or palpitation. No history of nausea or vomiting or diarrhea or fever or chills or cramps. OBJECTIVE: GENERAL: This is a well-built male, in no apparent distress. VITAL SIGNS: Temperature 98.4. Heart rate 91. Respiratory rate 18. Blood pressure 137/67. HEENT: Atraumatic, normocephalic. Oral mucosa is moist. NECK: Supple. CARDIOVASCULAR: S1, S2 heard. Rate and rhythm regular. RESPIRATORY: Clear to auscultation. GASTROINTESTINAL: Abdomen is soft. MUSCULOSKELETAL: 1+ edema. DERMATOLOGIC: No skin rash. NEUROLOGIC: Alert and awake and oriented x3. No focal neurologic deficits. Moving all the extremities. PSYCHIATRIC: Mood and affect normal. LABORATORY DATA: Creatinine is 2.6, ASSESSMENT AND PLAN: 1. Acute kidney injury on chronic kidney disease, stage 4. . 2. Cardiorenal syndrome. 3. Hypokalemia. 4. Edema. 5. Hypertension. 6. Congestive heart failure. We will continue to monitor renal function. Job ID: [id number]
--- NOTE | 2020-07-05 13:41 | SPC ---
Ultrasound and Fluoroscopic guided right upper extremity PICC placement HISTORY: Hip infection. Patient needs long-term IV antibiotics procedure FINDINGS: Informed consent obtained prior to the procedure. An appropriate access site was determined with ultrasound guidance. The area was then meticulously pr epped and draped in usual sterile fashion. Skin overlying the right basilic vein anesthetized with 1% buffered lidocaine. Utilizing direct sonog raphic guidance, vascular access is obtained via the right basilic vein, and an 0.018in guidewire was advanced to the distal SVC. Intravascular length is calculated at 40 cm, and the PICC is cut acco rdingly. Needle is removed and replaced with a peel-away sheath. The PICC was advanced over the wire. Wire and peel-away sheath were removed. The tip of the catheter overlies the distal SVC. The catheter was accessed and aspirated/flushed easily. Exposure data: 0.3 minutes of fluoroscopic time 856 mGy centimeter squared FINDINGS: Technically successful placement of a 40 centimeter single lumen 5 [place] right upper extremity PICC line. IMPRESSION: Successful ultrasound guided placement of a right upper extremity PICC.
[2020-07-05] MEDS ORDERED: Potassium Chloride 20 MEQ TAB PO SCH (14:00)
--- NOTE | 2020-07-05 15:10 | CON ---
DATE OF CONSULTATION: 07/05/2020 REASON FOR CONSULTATION: Management of volume overload and edema in heart failure with preserved ejection fraction, and right heart failure. HISTORY OF PRESENT ILLNESS: Mr. Bin Blas, 79 year old gentleman with heart failure with preserved ejection fraction and right ventricular dysfunction, and also atrial fibrillation, was consulted for management of severe edema and renal dysfunction. Mr. Mart had history of heart failure with preserved ejection fraction and also atrial fibrillation. He said that as late as December 2019, he was able to walk short distances, such as going from his bedroom to various places around his house and get into the car. He also said at that time he did not have any edema. He was taking torsemide 20 mg twice a day. He fell in January 2020. He had apparently a hip replacement or repair. Unfortunately, he did develop a Staph aureus infection of the hip. Since then, he continued to have multiple hospitalizations due to recurring infections. This last round starting June 03 was his fourth episode. He said that he was discharged to rehabilitation after the third surgery. His and himself noticed that he has increased edema around the leg and waist and even the scrotal area at rehabilitation. However, he was discharged from rehabilitation to home. At home, he was not able to even get up. He also had left hip pain. Thus, he called for help. He was admitted this time on June 03. He was taken to the OR on June 03, 2020. His old device was removed. Conversion of one component left hip hemiarthroplasty acetabular to total hip arthroplasty was done. In other words, he has now left total hip replacement. Since then, he has been very edematous. The team has difficulty getting the fluid off. At one time, he required continuous Bumex along with metolazone. However, his renal function suffered and they had to reduce it. Now, it is reported that he has had reaccumulation of fluid and the team is asking for help. The patient's said that normally at home he does not have swelling. This latest swelling has been severe, but they believe the swelling has gone down for several days. At home, he sleeps with the head raised about 30 degrees, but he sleeps with CPAP. Thus, he does not really have PND but definite orthopnea. PAST MEDICAL HISTORY: Includes, 1. History of paroxysmal atrial fibrillation post Watchman procedure. 2. Hypertension. 3. Pulmonary hypertension. 4. COPD, on oxygen at home. 5. Sleep apnea. 6. Chronic anemia, but however, they were unable to locate blood loss source. SOCIAL HISTORY: 1. He smoked for 48 years. However, he stopped in 2002 and has not smoked since then. 2. He has not used any alcohol since 2017. 3. He denies any illicit drug use. He has been for 58 - almost 59 years FAMILY HISTORY: Being at age 79, his family history is noncontributory. REVIEW OF SYSTEMS: GENERAL: He said he just wants to go home. No specific pain, but he says that he has been too inactive and fatigued. HEENT: There is no change in vision, hearing, or swallowing, but he has a chronic hard of hearing. PULMONARY: He is short of breath. CARDIAC: He denies chest pain or palpitation. GASTROINTESTINAL: He says that he has mid abdominal pain right below the diaphragm. GENITOURINARY: He currently has a De catheter in. He did notice scrotal edema in recent past, but his gross scrotal edema has decreased. MUSCULOSKELETAL: He says his left hip does not have any pain. However, he complains of bilateral leg swelling. INTEGUMENT: He has skin breakdown on the right hand. Apparently, he fell on that. NEUROLOGIC: There are no focal deficits or weakness at this point. PSYCHIATRIC: He is not expressing depression, but he strongly wants to get better and go home. MEDICATIONS: The list that currently has cardiac effects include, 1. Albuterol/ipratropium nebs q.4 hours. 2. Aspirin 81 mg daily. 3. Atorvastatin 80 mg at bedtime. 4. Bumex 2 mg IV twice a day. 5. Enoxaparin 30 mg subcu daily. 6. He is on antibiotics of daptomycin. 7. He is on Flonase. 8. Gabapentin 100 mg b.i.d. 9. Magnesium oxide 400 mg daily. 10. Dulera 200 mcg/5 mcg combination twice a day. 11. Zosyn at 2.25 g q.6 hours. 12. Flomax 0.4 mg daily. PHYSICAL EXAMINATION: VITAL SIGNS: His heart rate is about 91. The last recorded blood pressure is 137/61. GENERAL: He was asleep, but easily arousable and speak strongly. However, he is short of breath and tachypneic. HEENT: Show EOMI. Oropharynx is benign with moist mucosa. NECK: Has a large diameter, but his JVP is elevated right at the earlobe, so he is at least 14 cm or higher. PULMONARY: There are decreased breath sounds. There are expiratory wheezes. However, there is bilateral basilar crackles, so he does have fluid in his lungs. CARDIAC: Irregularly irregular. There is normal S1 and S2. There is 2/6 holosystolic murmur at the apex and also in the left sternal border. ABDOMEN: Soft, but large and distended. EXTREMITIES: Lower extremities, he has greater than 1.5 cm pitting edema from feet all the way to the hip. Thus, he is near state of anasarca. LABORATORY VALUES: From yesterday, white cell count is 25.5, hemoglobin 7.6, and platelets 309. His chemistry from yesterday is sodium 141, potassium 3.6, chloride 104, bicarb 23, BUN 99, and creatinine 2.95. This morning, there was no complete lab. The only thing I see is creatinine at 2.67. His I's and O's from yesterday are 1200 in and 2550 out with net negative 1350. This morning thus far, he has 820 in and about 1150 out. An EKG was done and revealed sinus rhythm with left axis deviation. He has second-degree heart Mobitz Type-1 at times with intermittent junctional rhythm. His echocardiogram from June 03, 2020, is reviewed. 1. He has severe dilated right ventricle with depressed right ventricular function. 2. He has tricuspid regurgitation. 3. Based on the tricuspid regurgitation, he has minimum of 52 mmHg RVSP. If you include RA pressure, it is probably close to 70 mmHg in terms of PA pressure. 4. He has D-shaped septum thus he has pressure overload on the right side. 5. His LVIDD is 5.3 cm. 6. His LVEF is 55% with diastolic dysfunction as seen by pulmonary venous flow much greater in diastole than systole, enlarged left atrium, and elevated E/A ratio. The tissue Doppler may be over measured. ASSESSMENT: 79-year-old gentleman has multitude of health problems. His primary issue currently remains with his left hip infection post surgery. However, he has right ventricle dysfunction, likely right ventricle failure causing severe peripheral edema. There is also component of diastolic dysfunction that is worsening the right ventricle dysfunction. Decreasing the pulmonary hypertension and augmenting RV function can help; thus, milrinone will be a good medication for this use. Furthermore, milrinone can also temporarily improve diastolic function. Please see the following for recommendations. RECOMMENDATIONS: 1. Please do labs; complete metabolic panel, magnesium so we know what we are dealing with. 2. Please send the patient to telemetry unit, where the milrinone can be initiated. 3. Start milrinone at 0.125 mcg/kg/minute. If systolic blood pressure is greater than 100 mmHg after 1 hour, increase that to 0.25 mcg/kg/minute. 4. Agree with Bumex 2 mg IV b.i.d. 5. Based on this combination, we will reassess telemetry and EKG output. He may need some sort of rate control or rhythm control. 6. He has a very large amount of fluid buildup. It will take some time to remove the edema. It has been a pleasure of taking care of Mr. Bin Mart. If you have any questions, please give me a call. The total initial visit time is 70 minutes. This includes reviewing echocardiogram, reading ECG, personally performing H and P, and greater than 50% of time with direct patient interaction including explaining counseling and also obtaining detail of long-term history from his . Job ID: [id number] [facility]
--- NOTE | 2020-07-05 17:21 | PDOC.HOSPP ---
- Subjective Subjective: The patient states he feels better and feels less SOB. No cough or chest pain - Objective Vital Signs & Weight: Vital Signs (12 hours) Temp Pulse Resp BP Pulse Ox 07/05/20 16:10 97.8 F 97 18 138/62 95 07/05/20 14:30 97.4 F L 106 H 18 128/68 93 L 07/05/20 11:50 98.4 F 91 18 137/61 92 L 07/05/20 10:00 85 18 98 07/05/20 08:36 92 L 07/05/20 07:48 98.0 F 91 16 137/72 92 L 07/05/20 06:29 83 20 99 Weight Admit Weight 195 lb Weight 218 lb 7.649 oz Most Recent Monitor Data Heart Rate from ECG 92 NIBP 119/85 NIBP BP-Mean 96 Respiration from ECG 22 SpO2 94 I&O: 07/04/20 07/05/20 07/06/20 06:59 06:59 06:59 Intake Total 1900 1200 820 Output Total 2200 2550 1150 Balance -300 -1350 -330 Result Diagrams: 07/05/20 04:53 07/05/20 12:35 Hospitalist ROS - Review of Systems Constitutional: denies: fever, chills - Medication Medications: Active Medications Generic Name Dose Route Start Last Admin Trade Name Lucy PRN Reason Stop Dose Admin Acetaminophen 650 mg 06/03/20 16:52 07/04/20 20:48 Tylenol PO 650 mg Q4H PRN Administration Headache/Fever or Pain Albuterol/Ipratropium 3 ml 06/20/20 18:30 07/05/20 14:01 Duoneb NEB 3 ml [id number] SHORTY Administration Aspirin 81 mg 06/26/20 09:00 07/05/20 08:36 Ecotrin PO 81 mg DAILY SHORTY Administration Atorvastatin Calcium 20 mg 06/02/20 21:00 07/04/20 20:49 Lipitor PO 20 mg HS SHORTY Administration Bumetanide 2 mg 07/03/20 10:48 07/05/20 13:59 Bumex IVP 2 mg 0600,1400 SHORTY Administration Cholecalciferol 800 units 06/07/20 09:00 07/05/20 08:36 Vitamin D PO 800 units DAILY SHORTY Administration Diphenhydramine HCl 25 mg 06/03/20 16:52 07/04/20 20:49 Benadryl PO 25 mg Q6H PRN Administration Itching Enoxaparin Sodium 30 mg 06/20/20 09:00 07/05/20 08:37 Lovenox SC 30 mg 0900 SHORTY Administration Fentanyl 50 mcg 06/02/20 10:54 06/02/20 14:34 Sublimaze SLOW IVP 50 mcg Q30M PRN Administration Severe breakthrough pain Ferrous Gluconate 324 mg 06/03/20 21:00 07/05/20 08:37 Fergon PO 324 mg BID SHORTY Administration Fluticasone Propionate 0 gm 06/20/20 09:00 07/05/20 08:38 Flonase Nasal [place] NASAL 2 spr DAILY SHORTY Administration Gabapentin 100 mg 06/02/20 21:00 07/05/20 08:37 Neurontin PO 100 mg BID SHORTY Administration Guaifenesin 600 mg 06/22/20 21:00 07/05/20 08:36 Mucinex PO 600 mg Q12HR SHORTY Administration Hydroxyzine Pamoate 25 mg 06/29/20 08:33 07/03/20 05:52 Vistaril PO 25 mg Q4H PRN Administration Hypersensitivity reaction Piperacillin Sod/Tazobactam 100 mls @ 200 mls/hr 06/27/20 12:00 07/05/20 11: 34 Sod 2.25 gm/ Sodium Chloride IVPB 100 mls Q6HR SHORTY Administration Daptomycin 500 mg/ Sodium 100 mls @ 200 mls/hr 06/27/20 11:00 07/05/20 12:24 Chloride IVPB 100 mls Q48H SHORTY Administration Milrinone Lactate/Dextrose 20 100 mls @ 3.71 mls/hr 07/05/20 13:30 07/05/20 14:41 mg/ Device IV 100 mls INF SHORTY Administration Protocol 0.125 MCG/KG/MIN Iron/Minerals/Multivitamins 1 tab 06/04/20 09:00 07/05/20 08:36 Theragran M PO 1 tab DAILY SHORTY Administration Magnesium Oxide 400 mg 06/11/20 09:00 07/05/20 08:36 Magnesium Oxide PO 400 mg DAILY SHORTY Administration Metoprolol Succinate 12.5 mg 07/05/20 16:30 07/05/20 16:26 Toprol Xl PO 07/05/20 18:30 12.5 mg NOW SHORTY Administration Morphine Sulfate 4 mg 06/02/20 10:54 06/03/20 11:58 Morphine SLOW IVP 4 mg Q2H PRN Administration Severe Pain (7-10) Pantoprazole Sodium 40 mg 06/02/20 21:00 07/05/20 08:36 Protonix PO 40 mg BID SHORTY Administration Senna/Docusate Sodium 2 tab 06/03/20 21:00 07/05/20 08:35 Senokot S PO 2 tab BID SHORTY Administration Tamsulosin HCl 0.4 mg 06/03/20 09:00 07/05/20 08:37 Flomax PO 0.4 mg DAILY SHORTY Administration Tramadol HCl 50 mg 06/18/20 17:00 07/03/20 18:24 Ultram PO 50 mg Q12H PRN Administration Mild Pain (1-3) - Exam General Appearance: NAD, awake alert General - other findings: obese, on nasal cannula Eye: PERRL, anicteric sclera ENT: normocephalic atraumatic, no oropharyngeal lesions Neck: no JVD Heart: RRR, no murmur, no gallops, no rubs Respiratory: no rales, no ronchi Respiratory - other findings: diminished breath sounds Gastrointestinal: soft, non-tender, non-distended, normal bowel sounds, no palpable masses Extremities: no cyanosis, no clubbing, 2+ LE edema Skin: normal turgor, no lesions, no rashes Neurological: cranial nerve grossly intact, normal sensation to touch, no focal deficits, no new deficit Musculoskeletal: normal tone, normal strength, no muscle wasting Hosp A/P - Plan Chest X ray: widespread interstitial reticulonodular prominence Testicular ultrasound: Small right-sided hydrocele. Bilateral epididymal cysts with mild heterogeneity of the epididymis. Severe scrotal wall thickening. CT abdomen: prominent edema and fluid infiltration throughout the scrotum without soft tissue gas or evidence of abscess. Renal US: no obstructive uropathy. Splneomegaly. 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 Has been in the hospital for > 1 month due to heart failure Acute diastolic heart failure secondary to pulmonary edema - ECHO 06/03 showed severely elevated pulm artery pressure . Chest X ray shows widespread interstitial reticulonodular prominence - continue bumex 2 mg IV bid - Dr. Fowler was consulted and started on milrinone. 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 Was on vanc and meropenem, but switched to daptomycin and zosyn due to urticaria - WBC is trending up to 25. Per Dr. Beaver continue current regimen Scrotal swelling/edema -resolved - testicular ultrasound showed possible cellulitis. CT abdomen showed edema, no air or gas. Urology consulted, thought no signs of Eladia's and from fluid - continue diuretics #Anemia -patient has received 5 unit of PRBC while in the hospital, last transfusion . - hemoglobin 7.8 Vitamin D deficiency - resolved, - started on vitamin D supplementation given slightly low levels of 23 Physical deconditioning - continue PT and OT DVT prophylaxis: lovenox GI prophylaxis: not needed Disposition: will need rehab on discharge
[2020-07-05] MEDS: Mometasone 200 MCG/Formoterol 5 MCG 120 PUFF INHALER INH SCH (18:44)
[2020-07-05] MEDS: Atorvastatin Calcium 20 MG TAB PO SCH (20:22)
[2020-07-06] MEDS ORDERED: Milrinone Lactate/D5W 20 MG/100 ML BAG ONE (03:15)
[2020-07-06] MEDS ORDERED: Piperacillin/Tazobactam 2.25 GM VIAL ONE (05:05)
[2020-07-06] MEDS ORDERED: Bumetanide 1 MG/4 ML VIAL ONE (05:05)
[2020-07-06 06:30] LABS: Hemoglobin 7.5 g/dL (14.0-18.0); Mean Corpuscular HGB CONC 30.8 g/dL (32.0-36.0); Mean Corpuscular Volume 91.1 fL (78.0-98.0); Mean Platelet Volume 8.9 fL (7.4-10.4); Platelet Count 306 thou/uL (130-400); RBC Distribution Width 20.5 % (11.5-14.5); Red Blood Cell (RBC) Count 2.68 mill/uL (4.70-6.10); White Blood Cell (WBC) Count 23.2 thou/uL (4.8-10.8)
[2020-07-06] MEDS: Mometasone 200 MCG/Formoterol 5 MCG 120 PUFF INHALER INH SCH ×2 (07:09→18:43)
[2020-07-06 07:19] LABS: Anion Gap 17 mmol/L (10-20); BUN (Urea Nitrogen) 91 mg/dL (8.4-25.7); Calc. Creatinine Clearance 31 mL/min (70-130); Calcium 7.6 mg/dL (7.8-10.44); Carbon Dioxide 25 mmol/L (23-31); Chloride 104 mmol/L (98-107); Estimated GFR-MDRD 23; Glucose 125 mg/dL (83-110); Potassium 3.5 mmol/L (3.5-5.1); Sodium 142 mmol/L (136-145)
[2020-07-06] MEDS: guaiFENesin ER 600 MG TAB PO SCH ×3 (07:51→22:23)
[2020-07-06] MEDS: Fluticasone Propionate Nasal Spray 16 gm Bottle NASAL SCH ×2 (07:51→09:13)
[2020-07-06] MEDS ORDERED: Ferrous Gluconate 324 MG TAB ONE (07:51)
[2020-07-06] MEDS: Tamsulosin HCl 0.4 MG CAP PO SCH ×2 (07:51→09:14)
[2020-07-06] MEDS ORDERED: Senokot S 8.6-50 MG TAB ONE (07:51)
[2020-07-06] MEDS ORDERED: Tamsulosin HCl 0.4 MG CAP ONE (07:51)
[2020-07-06] MEDS: Cholecalciferol (Vitamin D3) 400 UNITS TAB PO SCH ×2 (07:51→09:12)
[2020-07-06] MEDS: Enoxaparin Sodium 30 MG/0.3 ML SYRINGE SC SCH ×2 (07:51→09:12)
[2020-07-06] MEDS ORDERED: Aspirin 81 mg Enteric Coated Tablet ONE (07:51)
[2020-07-06] MEDS: Multivitamin W/ Minerals 1 TAB PO SCH ×2 (07:51→09:13)
[2020-07-06] MEDS: Magnesium Oxide 400 MG TAB PO SCH ×2 (07:51→09:13)
[2020-07-06] MEDS ORDERED: Magnesium Oxide 400 MG TAB PO ONE (07:51)
[2020-07-06] MEDS ORDERED: Gabapentin 100 MG CAP ONE (07:51)
[2020-07-06] MEDS ORDERED: Cholecalciferol (Vitamin D3) 400 UNITS TAB ONE (07:51)
[2020-07-06] MEDS: Gabapentin 100 MG CAP PO SCH ×3 (07:51→22:22)
[2020-07-06] MEDS: Senokot S 8.6-50 MG TAB PO SCH ×3 (07:51→22:22)
[2020-07-06] MEDS: Ferrous Gluconate 324 MG TAB PO SCH ×3 (07:51→22:22)
[2020-07-06] MEDS: Aspirin 81 mg Enteric Coated Tablet PO SCH ×2 (07:51→09:12)
[2020-07-06] MEDS ORDERED: guaiFENesin ER 600 MG TAB ONE (07:51)
[2020-07-06] MEDS ORDERED: Enoxaparin Sodium 30 MG/0.3 ML SYRINGE ONE (07:51)
[2020-07-06] MEDS ORDERED: Multivitamin W/ Minerals 1 TAB ONE (07:51)
[2020-07-06] MEDS: Bumetanide 1 MG/4 ML VIAL IVP SCH ×3 (09:11→16:23)
[2020-07-06] MEDS: Piperacillin/Tazobactam 2.25 GM in Sodium Chloride 0.9% 100 ML IVPB SCH ×5 (09:12→23:30)
[2020-07-06] MEDS ORDERED: Potassium Chloride 20 MEQ TAB PO SCH ×2 (09:15→11:30)
--- NOTE | 2020-07-06 10:28 | EKG ---
Test Reason : Blood Pressure : / mmHG Vent. Rate : 099 BPM Atrial Rate : 099 BPM P-R Int : 168 ms QRS Dur : 102 ms QT Int : 376 ms P-R-T Axes : 091 -25 074 degrees QTc Int : 482 ms Multifocal atrial tachycardia Incomplete right bundle branch block Inferior-posterior infarct (cited on or before 02-JUN-2020) Abnormal ECG When compared with ECG of 02-JUN-2020 10:16, Sinus rhythm is now with junctional escape complexes Confirmed by DILCIA AVILA M.D. ([id number]) on 07/06/2020 10:27:55 AM Referred By: GARRICK Confirmed By:DILCIA AVILA M.D.
--- NOTE | 2020-07-06 10:33 | PRG ---
DATE OF SERVICE: 07/06/2020 SUBJECTIVE: Mr. Mart had a good day. He was moved from the surgery floor down to telemetry. Milrinone was started at 0.125 mcg/kg per minute. With good blood pressure, was able to be titrate it to 0.25 mcg/kg per minute. Due to [employer] being down, the inputs and outputs were not recorded correctly in the computer. It was reported that he had 900 mL output from initial doses of milrinone. Overnight, he had over 2150. The bag was empty this morning. There is about 400 to 500 mL in there again. Consequently, since the start of milrinone, he has urine output of greater than 3 L. He said that he is feeling better. He noticed that he has increased strength and endurance. He can actually get to the toilet and come back and his oxygen saturation comes back very quickly. He is more alert and he is breathing a bit easier. REVIEW OF SYSTEMS: GENERAL: There are no fevers, chills, productive cough. HEENT: There are no changes in vision, hearing, or swallowing. PULMONARY: Please see HPI. CARDIAC: There is no chest pain or palpitations or syncope. Otherwise, see HPI. GI: He still has just underneath the diaphragm, abdominal pain only when pressed. He is having normal bowel movements. : He has De catheter in. However, he had some scrotal discomfort. MUSCULOSKELETAL: There is no complaint of joint or back pain today. INTEGUMENT: There seemed to be irritation around the pelvic/scrotal area. NEUROLOGIC: There are no new focal deficits or weaknesses. MEDICATIONS: That have cardiac effect include: 1. Albuterol/ipratropium nebs every 4 hours. 2. Aspirin 81 mg daily. 3. Atorvastatin 80 mg at bedtime. 4. Bumex IV at 2 mg twice a day. 5. Enoxaparin 30 mg subcutaneous daily. 6. Magnesium oxide 400 mg daily. 7. Toprol-XL at 12.5 mg p.o. b.i.d. 8. Milrinone was at 0.25 mcg/kg per minute. 9. Dulera at 200 mcg/5 mcg combination twice per day. 10. Flomax 0.4 mg daily. Telemetry was reviewed. It is mainly sinus rhythm. He has some type of multifocal atrial tachycardia like. He also has PAC and some junctional rhythm. Otherwise, his heart rate is mainly in the high 80s and low 90s. OBJECTIVE: VITAL SIGNS: His heart rate 90, blood pressure 121/57. GENERAL: He is alert and conversational, resting comfortably in bed. He said he is more energetic today. HEENT: Shows EOMI. Oropharynx has moist mucosa, but poor dentition. NECK: JVP is still elevated about 13 cm just right below the earlobe. PULMONARY: There are diminished breath sounds, but better air movement today. There is still a bit of bibasilar crackles. CARDIAC: Generally regular rhythm, but there are occasional irregularities. Normal S1 and S2. There is 2/6 holosystolic murmur at left sternal border also near the apex. ABDOMEN: Soft, but a little bit tender right at mid gastric region. EXTREMITIES: He has about 0.5 cm pitting edema at hips. He has greater than 1.5 cm pitting edema from feet to about the knees. His edema is still quite significant, but it has decreased. He has red, smelly, scrotal pelvic area resembling a fungal infection. LABORATORY VALUES: Sodium 142, potassium 3.5, chloride 104, bicarb 25, BUN 91, and creatinine of 2.68. His I and O are listed as in opening paragraph. ASSESSMENT: 79-year-old gentleman is making slow recovery from multiple difficulties from his septic left hip joint. He is still on antibiotics. He also has right heart failure and diastolic dysfunction leading to heart failure with preserved ejection fraction. Milrinone has improved his situation significantly. He has significant urine output while preserving his renal function. We will be using Toprol-XL for rate control and a test dose of milrinone at 0.25 mcg/kg per minute. He did well. Thus, for now, we can increase the dose to sustain the diuresis. In the near future, we may need to slow down the diuresis a little bit. Please see the following for my recommendations: RECOMMENDATIONS: 1. Increase milrinone to 0.375 mcg/kg per minute. 2. Continue Toprol-XL at 12.5 mg q.12 hours. 3. Please give potassium chloride 20 mEq 1 dose. We will follow tomorrow to see if it needed to be changed. 4. Please provide nystatin powder or cream or clotrimazole cream for his fungal infection area. It has been a pleasure taking care of Mr. Mart. If you have any questions, please give me a call. The total visitation time is 40 minutes. This included personally performing H&P, reviewing data, and greater 50% effort is spent on direct patient interaction including counseling - explaining. Job ID: [id number] MTDD
--- NOTE | 2020-07-06 10:55 | PRG ---
DATE OF SERVICE: 07/06/2020 SUBJECTIVE: Bin Mart was transferred from the surgical floor to the telemetry patterson yesterday. Apparently, his shortness of breath felt to be secondary to congestive heart failure. Cardiology was consulted and he was started on milrinone this morning. OBJECTIVE: VITAL SIGNS: His temperature 97, pulse 84, respirations 20, saturations 95% on 4 L, blood pressure 114/56. CHEST: No wheezing. No crackles. CARDIAC: Normal S1 and S2. No gallops. ABDOMEN: No masses. LABORATORY DATA: Creatinine is 2.68, BUN is 91. His echo shows severely elevated pulmonary artery pressures, but his ejection fraction is 55% to 60%. ASSESSMENT AND PLAN: Pulmonary hypertension, probably secondary to chronic obstructive pulmonary disease, probably diastolic dysfunction, and renal failure. His steroids were discontinued yesterday. He is still on multiple antibiotics as per Infectious Disease. Pulmonary is going to keep following him. Continue O2 and neb treatments. Job ID: [id number]
--- NOTE | 2020-07-06 11:16 | EKG ---
Test Reason : Blood Pressure : / mmHG Vent. Rate : 097 BPM Atrial Rate : 097 BPM P-R Int : 166 ms QRS Dur : 098 ms QT Int : 396 ms P-R-T Axes : 074 -34 062 degrees QTc Int : 502 ms Sinus rhythm with Premature atrial complexes Left axis deviation Incomplete right bundle branch block Prolonged QT Abnormal ECG Confirmed by DILCIA AVILA M.D. ([id number] on 07/06/2020 11:15:39 AM Referred By: GARRICK Confirmed By:DILCIA AVILA M.D.
--- NOTE | 2020-07-06 11:29 | PRG ---
DATE OF SERVICE: 07/06/2020 SUBJECTIVE: The patient was seen and examined at bedside and overnight events noted. Patient denies any shortness of breath or chest pain or palpitation. No history of nausea or vomiting or diarrhea or fever or chills or cramps. OBJECTIVE: General: This is a well-built male, in no apparent distress. Vital Signs: Temperature 97.9. Pulse 84. Respiratory rate 20. Blood pressure . HEENT: Atraumatic, normocephalic. Oral mucosa is moist. Neck: Supple. Cardiovascular: S1, S2 heard. Rate and rhythm regular. Respiratory: Clear to auscultation. Gastrointestinal: Abdomen is soft. Musculoskeletal: No tenderness. 2+ edema. Dermatologic: No skin rash. Neurologic: Alert and awake and oriented x3. No focal neurologic deficits. Moving all the extremities. Psychiatric: Mood and affect normal. LABORATORY DATA: Potassium is 3.5, BUN is 91, creatinine is 2.6. ASSESSMENT AND PLAN: 1. Acute kidney injury on chronic kidney disease, stage 4. 2. Cardiorenal syndrome. 3. Hypokalemia. 4. Edema. 5. Hypertension. Continue diuretics and monitor renal function. Job ID: [id number]
[2020-07-06] MEDS: Nystatin Powder 15 GM BOT TOP SCH ×2 (11:51→23:37)
[2020-07-06] MEDS: Milrinone Lactate/D5W 20 MG in Premix Bag 1 BAG IV SCH (14:46)
--- NOTE | 2020-07-06 17:27 | PDOC.HOSPP ---
- Subjective Encounter Date: 07/06/20 Encounter Time: 17:25 Subjective: The patient states he is doing better but is tired. states his breathing looks more comfortable and less labored. Patient has no chest pain or other complaints' He has not walked the past two days, per PT needs new order Bumex was held this morning due to low blood pressure - Objective Vital Signs & Weight: Vital Signs (12 hours) Temp Pulse Resp BP BP Pulse Ox 07/06/20 15:43 98.5 F 93 19 104/57 L 98 07/06/20 14:31 94 16 07/06/20 11:02 85 16 95 07/06/20 10:58 97.9 F 95 18 110/57 L 95 07/06/20 07:09 88 20 07/06/20 07:05 97.9 F 84 20 114/56 L 95 Weight Admit Weight 195 lb Weight 218 lb 7.649 oz Most Recent Monitor Data Heart Rate from ECG 92 NIBP 119/85 NIBP BP-Mean 96 Respiration from ECG 22 SpO2 94 I&O: 07/05/20 07/06/20 07/07/20 06:59 06:59 06:59 Intake Total 1200 1910 600 Output Total 2550 2725 Balance -1350 -815 600 Result Diagrams: 07/06/20 03:55 07/06/20 03:30 Hospitalist ROS - Review of Systems Constitutional: denies: fever, chills - Medication Medications: Active Medications Generic Name Dose Route Start Last Admin Trade Name Freq PRN Reason Stop Dose Admin Acetaminophen 650 mg 06/03/20 16:52 07/04/20 20:48 Tylenol PO 650 mg Q4H PRN Administration Headache/Fever or Pain Albuterol/Ipratropium 3 ml 06/20/20 18:30 07/06/20 14:31 Duoneb NEB 3 ml [id number] SHORTY Administration Aspirin 81 mg 06/26/20 09:00 07/06/20 07:51 Ecotrin PO 81 mg DAILY SHORTY Administration Atorvastatin Calcium 20 mg 06/02/20 21:00 07/05/20 20:22 Lipitor PO 20 mg HS SHORTY Administration Bumetanide 2 mg 07/03/20 10:48 07/06/20 16:23 Bumex IVP Not Given 0600,1400 SHORTY Cholecalciferol 800 units 06/07/20 09:00 07/06/20 07:51 Vitamin D PO 800 units DAILY SHORTY Administration Diphenhydramine HCl 25 mg 06/03/20 16:52 07/04/20 20:49 Benadryl PO 25 mg Q6H PRN Administration Itching Enoxaparin Sodium 30 mg 06/20/20 09:00 07/06/20 07:51 Lovenox SC 30 mg 0900 SHORTY Administration Fentanyl 50 mcg 06/02/20 10:54 06/02/20 14:34 Sublimaze SLOW IVP 50 mcg Q30M PRN Administration Severe breakthrough pain Ferrous Gluconate 324 mg 06/03/20 21:00 07/06/20 07:51 Fergon PO 324 mg BID SHORTY Administration Fluticasone Propionate 0 gm 06/20/20 09:00 07/06/20 07:51 Flonase Nasal [place] NASAL 2 spr DAILY SHORTY Administration Gabapentin 100 mg 06/02/20 21:00 07/06/20 07:51 Neurontin PO 100 mg BID SHORTY Administration Guaifenesin 600 mg 06/22/20 21:00 07/06/20 07:51 Mucinex PO 600 mg Q12HR SHORTY Administration Hydroxyzine Pamoate 25 mg 06/29/20 08:33 07/03/20 05:52 Vistaril PO 25 mg Q4H PRN Administration Hypersensitivity reaction Piperacillin Sod/Tazobactam 100 mls @ 200 mls/hr 06/27/20 12:00 07/06/20 11: 53 Sod 2.25 gm/ Sodium Chloride IVPB 100 mls Q6HR SHORTY Administration Daptomycin 500 mg/ Sodium 100 mls @ 200 mls/hr 06/27/20 11:00 07/05/20 12:24 Chloride IVPB 100 mls Q48H SHORTY Administration Milrinone Lactate/Dextrose 20 100 mls @ 11.149 mls/hr 07/06/20 09:15 07/06/20 14:46 mg/ Device IV 100 mls INF SHORTY Administration Protocol 0.375 MCG/KG/MIN Iron/Minerals/Multivitamins 1 tab 06/04/20 09:00 07/06/20 07:51 Theragran M PO 1 tab DAILY SHORTY Administration Magnesium Oxide 400 mg 06/11/20 09:00 07/06/20 07:51 Magnesium Oxide PO 400 mg DAILY SHORTY Administration Metoprolol Succinate 12.5 mg 07/05/20 21:00 07/06/20 07:51 Toprol Xl PO 12.5 mg BID SHORTY Administration Mometasone Furoate/Formoterol Fumar 2 puff 07/05/20 18:30 07/06/20 07:09 Dulera 200 Mcg/5 Mcg Inhaler INH 2 puff BID-RT SHORTY Administration Morphine Sulfate 4 mg 06/02/20 10:54 06/03/20 11:58 Morphine SLOW IVP 4 mg Q2H PRN Administration Severe Pain (7-10) Nystatin 0 gm 07/06/20 09:00 07/06/20 11:51 Nystatin Powder 15 Gm Bot TOP 1 applic BID SHORTY Administration Pantoprazole Sodium 40 mg 06/02/20 21:00 07/06/20 07:51 Protonix PO 40 mg BID SHORTY Administration Senna/Docusate Sodium 2 tab 06/03/20 21:00 07/06/20 07:51 Senokot S PO 2 tab BID SHORTY Administration Tamsulosin HCl 0.4 mg 06/03/20 09:00 07/06/20 07:51 Flomax PO 0.4 mg DAILY SHORTY Administration Tramadol HCl 50 mg 06/18/20 17:00 07/03/20 18:24 Ultram PO 50 mg Q12H PRN Administration Mild Pain (1-3) - Exam General Appearance: NAD, awake alert Eye: PERRL, anicteric sclera ENT: normocephalic atraumatic, no oropharyngeal lesions Neck: no JVD Heart: RRR, no murmur, no gallops, no rubs Respiratory: CTAB, no wheezes, no rales, no ronchi Gastrointestinal: soft, non-tender, non-distended, normal bowel sounds Extremities: no cyanosis, no clubbing, no edema Skin: normal turgor, no lesions, no rashes Neurological: cranial nerve grossly intact, normal sensation to touch, no focal deficits, no new deficit Hosp A/P - Plan Chest X ray: widespread interstitial reticulonodular prominence Testicular ultrasound: Small right-sided hydrocele. Bilateral epididymal cysts with mild heterogeneity of the epididymis. Severe scrotal wall thickening. CT abdomen: prominent edema and fluid infiltration throughout the scrotum without soft tissue gas or evidence of abscess. Renal US: no obstructive uropathy. Splneomegaly. 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 Has been in the hospital for > 1 month due to heart failure Acute diastolic heart failure secondary to pulmonary edema - ECHO 06/03 showed severely elevated pulm artery pressure . Chest X ray shows widespread interstitial reticulonodular prominence - bumex was held this morning. Milrinone has been increased by Dr. Fowler - currently on 4L nasal cannula, can wean to oxygen saturation 92% Acute kidney injury - from cardiorenal syndrome, improving - creatinine stable at 2.68. 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 Was on vanc and meropenem, but switched to daptomycin and zosyn due to urticaria - WBC down to 23, IV steroids were discontinued Scrotal swelling/edema -resolved - testicular ultrasound showed possible cellulitis. CT abdomen showed edema, no air or gas. Urology consulted, thought no signs of Eladia's and from fluid - continue diuretics #Anemia -patient has received 5 unit of PRBC while in the hospital, last transfusion 06/30. - hemoglobin 7.5, will consider transfusion if less than 7 Vitamin D deficiency - resolved, - started on vitamin D supplementation given slightly low levels of 23 Physical deconditioning - continue PT and OT DVT prophylaxis: lovenox GI prophylaxis: not needed Disposition: will need rehab on discharge
[2020-07-06] MEDS: Morphine 4 MG/ML VIAL SLOW IVP PRN (22:20)
[2020-07-06] MEDS: Atorvastatin Calcium 20 MG TAB PO SCH (22:23)
[2020-07-07] MEDS: Milrinone Lactate/D5W 20 MG in Premix Bag 1 BAG IV SCH ×2 (02:28→13:55)
[2020-07-07 04:12] LABS: Hemoglobin 7.2 g/dL (14.0-18.0); Mean Corpuscular HGB CONC 30.8 g/dL (32.0-36.0); Mean Platelet Volume 9.2 fL (7.4-10.4); Platelet Count 289 thou/uL (130-400); RBC Distribution Width 20.6 % (11.5-14.5); Red Blood Cell (RBC) Count 2.59 mill/uL (4.70-6.10); White Blood Cell (WBC) Count 22.5 thou/uL (4.8-10.8)
[2020-07-07 04:37] LABS: Anion Gap 16 mmol/L (10-20); BUN (Urea Nitrogen) 89 mg/dL (8.4-25.7); Calc. Creatinine Clearance 30 mL/min (70-130); Calcium 7.5 mg/dL (7.8-10.44); Carbon Dioxide 24 mmol/L (23-31); Chloride 105 mmol/L (98-107); Estimated GFR-MDRD 22; Glucose 86 mg/dL (83-110); Magnesium 2.5 mg/dL (1.6-2.6); Potassium 3.8 mmol/L (3.5-5.1); Sodium 141 mmol/L (136-145)
[2020-07-07] MEDS: Bumetanide 1 MG/4 ML VIAL IVP SCH ×2 (05:21→20:50)
[2020-07-07] MEDS: Piperacillin/Tazobactam 2.25 GM in Sodium Chloride 0.9% 100 ML IVPB SCH ×3 (05:21→20:21)
[2020-07-07] MEDS: Mometasone 200 MCG/Formoterol 5 MCG 120 PUFF INHALER INH SCH ×2 (07:23→19:22)
[2020-07-07] MEDS: Senokot S 8.6-50 MG TAB PO SCH ×2 (09:42→20:24)
[2020-07-07] MEDS: Magnesium Oxide 400 MG TAB PO SCH (09:42)
[2020-07-07] MEDS: Cholecalciferol (Vitamin D3) 400 UNITS TAB PO SCH (09:42)
[2020-07-07] MEDS: Multivitamin W/ Minerals 1 TAB PO SCH (09:43)
[2020-07-07] MEDS: guaiFENesin ER 600 MG TAB PO SCH ×2 (09:43→20:24)
[2020-07-07] MEDS: Gabapentin 100 MG CAP PO SCH ×2 (09:43→20:22)
[2020-07-07] MEDS: Tamsulosin HCl 0.4 MG CAP PO SCH (09:43)
[2020-07-07] MEDS: Ferrous Gluconate 324 MG TAB PO SCH ×2 (09:44→20:23)
[2020-07-07] MEDS: Enoxaparin Sodium 30 MG/0.3 ML SYRINGE SC SCH (09:44)
[2020-07-07] MEDS: Nystatin Powder 15 GM BOT TOP SCH ×2 (10:01→20:25)
--- NOTE | 2020-07-07 10:03 | PRG ---
DATE OF SERVICE: 07/07/2020 SUBJECTIVE: Mr. Mart is actually feeling better. He has no complaints. His breathing has improved. OBJECTIVE: VITAL SIGNS: Blood pressure 135/63, pulse is in the 90s. LUNGS: Clear. CARDIAC: Normal S1, normal S2. ABDOMEN: Obese, nontender. EXTREMITIES: The edema has reduced. LABORATORY DATA: Hemoglobin is down to 7.2. Creatinine is stable at 2.78. BNP has dropped to 1023. The edema even in his face looks like it is less. ASSESSMENT: 1. Severe diastolic heart failure, responding to milrinone. 2. Renal failure, stable. PLAN: 1. Continue intravenous milrinone. 2. In view of anemia, I am going to stop the aspirin. 3. Continue enoxaparin. I think he has high risk of deep venous thrombosis. 4. May need additional blood. 5. He is on Bumex, not really certain that the I and O are accurate, but it looks like he has less edema. His weight, according to the notes, have dropped down to 209 pounds. Job ID: [id number]
[2020-07-07] MEDS ORDERED: Potassium Chloride 20 MEQ TAB PO SCH (10:45)
[2020-07-07 10:59] LABS: Reticulocyte Count 6.9 % (0.5-1.5)
--- NOTE | 2020-07-07 11:00 | PRG ---
DATE OF SERVICE: SUBJECTIVE: The patient was seen and examined at bedside. He denies any shortness of breath. He still remains edematous. OBJECTIVE: GENERAL: This is a well-built male, no apparent distress. VITAL SIGNS: Temperature 98.8, pulse 95, respiratory rate 18, blood pressure 116/57. Musculoskeletal : No tenderness, No edema HEENT: Atraumatic normocephalic Neck: Supple Cardiovascular: S1S2 heard, Rate and rhythm regular Respiratory: Clear to auscultation Gastrointestinal: Abdomen is soft Dermatologic : No skin rash Neurologic: Alert and awake and oriented X3 No focal neurologic deficits. Moving all the extremities. Psychiatric: Mood and affect normal LABORATORY DATA: Potassium 3.8, BUN is 89, and creatinine is 2.7. ASSESSMENT AND PLAN: 1. Acute kidney injury on chronic kidney stage 4. Renal function stable. 2. Azotemia. 3. Hypokalemia, better. 4. Edema, on diuretics. 5. Hypertension. 6. Cardiorenal syndrome. The patient is having a prolonged course in the hospital. Renal function is stable. Continue diuretics per Cardiology. We will follow. Job ID: [id number] [facility]
--- NOTE | 2020-07-07 11:57 | PDOC.HOSPP ---
- Subjective Encounter Date: 07/07/20 Encounter Time: 11:56 Subjective: Bumex held yesterday for low BP and unable to be given in am due to no computer access Patient states his breathing feels okay but he just feels weak. PT tried to stand him up but he was hypoxic so they laid him back down - Objective Vital Signs & Weight: Vital Signs (12 hours) Temp Pulse Resp BP BP Pulse Ox 07/07/20 10:55 91 13 94 L 07/07/20 08:00 98.8 F 95 18 116/57 L 93 L 07/07/20 07:26 92 17 93 L 07/07/20 07:23 92 17 93 L 07/07/20 03:56 98.9 F 95 23 H 135/63 96 07/07/20 02:17 16 Weight Admit Weight 195 lb Weight 209 lb 14.081 oz Most Recent Monitor Data Heart Rate from ECG 92 NIBP 119/85 NIBP BP-Mean 96 Respiration from ECG 22 SpO2 94 I&O: 07/06/20 07/07/20 07/08/20 06:59 06:59 06:59 Intake Total 1910 2465 Output Total 2725 1225 Balance -815 1240 Result Diagrams: 07/07/20 03:45 07/07/20 03:45 Hospitalist ROS - Review of Systems Constitutional: denies: fever, chills - Medication Medications: Active Medications Generic Name Dose Route Start Last Admin Trade Name Freq PRN Reason Stop Dose Admin Acetaminophen 650 mg 06/03/20 16:52 07/04/20 20:48 Tylenol PO 650 mg Q4H PRN Administration Headache/Fever or Pain Albuterol/Ipratropium 3 ml 06/20/20 18:30 07/07/20 10:55 Duoneb NEB 3 ml [id number] SHORTY Administration Atorvastatin Calcium 20 mg 06/02/20 21:00 07/06/20 22:23 Lipitor PO 20 mg HS SHORTY Administration Bumetanide 2 mg 07/03/20 10:48 07/07/20 05:21 Bumex IVP 2 mg 0600,1400 SHORTY Administration Cholecalciferol 800 units 06/07/20 09:00 07/07/20 09:42 Vitamin D PO 800 units DAILY SHORTY Administration Diphenhydramine HCl 25 mg 06/03/20 16:52 07/04/20 20:49 Benadryl PO 25 mg Q6H PRN Administration Itching Enoxaparin Sodium 30 mg 06/20/20 09:00 07/07/20 09:44 Lovenox SC 30 mg 0900 SHORTY Administration Fentanyl 50 mcg 06/02/20 10:54 06/02/20 14:34 Sublimaze SLOW IVP 50 mcg Q30M PRN Administration Severe breakthrough pain Ferrous Gluconate 324 mg 06/03/20 21:00 07/07/20 09:44 Fergon PO 324 mg BID SHORTY Administration Fluticasone Propionate 0 gm 06/20/20 09:00 07/06/20 07:51 Flonase Nasal [place] NASAL 2 spr DAILY SHORTY Administration Gabapentin 100 mg 06/02/20 21:00 07/07/20 09:43 Neurontin PO 100 mg BID SHORTY Administration Guaifenesin 600 mg 06/22/20 21:00 07/07/20 09:43 Mucinex PO 600 mg Q12HR SHORTY Administration Hydroxyzine Pamoate 25 mg 06/29/20 08:33 07/03/20 05:52 Vistaril PO 25 mg Q4H PRN Administration Hypersensitivity reaction Piperacillin Sod/Tazobactam 100 mls @ 200 mls/hr 06/27/20 12:00 07/07/20 11:31 Sod 2.25 gm/ Sodium Chloride IVPB 100 mls Q6HR SHORTY Administration Daptomycin 500 mg/ Sodium 100 mls @ 200 mls/hr 06/27/20 11:00 07/05/20 12:24 Chloride IVPB 100 mls Q48H SHORTY Administration Milrinone Lactate/Dextrose 20 100 mls @ 11.149 mls/hr 07/06/20 09:15 07/07/20 02:28 mg/ Device IV 100 mls INF SHORTY Administration Protocol 0.375 MCG/KG/MIN Iron/Minerals/Multivitamins 1 tab 06/04/20 09:00 07/07/20 09:43 Theragran M PO 1 tab DAILY SHORTY Administration Magnesium Oxide 400 mg 06/11/20 09:00 07/07/20 09:42 Magnesium Oxide PO 400 mg DAILY SHORTY Administration Metoprolol Succinate 12.5 mg 07/05/20 21:00 07/07/20 09:43 Toprol Xl PO 12.5 mg BID SHORTY Administration Mometasone Furoate/Formoterol Fumar 2 puff 07/05/20 18:30 07/07/20 07:23 Dulera 200 Mcg/5 Mcg Inhaler INH 2 puff BID-RT SHORTY Administration Morphine Sulfate 4 mg 06/02/20 10:54 07/06/20 22:20 Morphine SLOW IVP 4 mg Q2H PRN Administration Severe Pain (7-10) Nystatin 0 gm 07/06/20 09:00 07/07/20 10:01 Nystatin Powder 15 Gm Bot TOP 1 applic BID SHORTY Administration Pantoprazole Sodium 40 mg 06/02/20 21:00 07/07/20 09:44 Protonix PO 40 mg BID SHORTY Administration Potassium Chloride 40 meq 07/07/20 10:45 07/07/20 11:29 Potassium Chloride 20 Meq Tab PO 07/07/20 12:45 40 meq NOW SHORTY Administration Senna/Docusate Sodium 2 tab 06/03/20 21:00 07/07/20 09:42 Senokot S PO 2 tab BID SHORTY Administration Sodium Chloride 10 ml 06/14/20 13:26 07/07/20 09:45 Flush - Normal Saline IVF 10 ml PRN PRN Administration Saline Flush Tamsulosin HCl 0.4 mg 06/03/20 09:00 07/07/20 09:43 Flomax PO 0.4 mg DAILY SHORTY Administration - Exam General Appearance: NAD, awake alert Eye: PERRL, anicteric sclera ENT: normocephalic atraumatic, no oropharyngeal lesions Neck: no JVD Heart: RRR, no murmur, no gallops, no rubs Respiratory - other findings: some wheezing bilaterally at bases Gastrointestinal: soft, non-tender, non-distended, normal bowel sounds Extremities: 2+ LE edema Skin: normal turgor, no lesions, no rashes Neurological: cranial nerve grossly intact, normal sensation to touch, no focal deficits, no new deficit Hosp A/P - Plan Chest X ray: widespread interstitial reticulonodular prominence Testicular ultrasound: Small right-sided hydrocele. Bilateral epididymal cysts with mild heterogeneity of the epididymis. Severe scrotal wall thickening. CT abdomen: prominent edema and fluid infiltration throughout the scrotum without soft tissue gas or evidence of abscess. Renal US: no obstructive uropathy. Splneomegaly. 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 Has been in the hospital for > 1 month due to heart failure Acute diastolic heart failure secondary to pulmonary edema - ECHO 06/03 showed severely elevated pulm artery pressure . Chest X ray shows widespread interstitial reticulonodular prominence - continue bumex 2 mg IV bid - continue milrinone - HB 7.2, will transfuse one unit of blood and give with diuretic - wean oxygen sat to 92% Acute kidney injury - from cardiorenal syndrome, improving - creatinine increased to 2.68, possibly from not receiving bumex yesterday - resume diuretics - Renal US shows no hydronephrosis #Anemia -patient has received 5 unit of PRBC while in the hospital, last transfusion 06/30. 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 Was on vanc and meropenem, but switched to daptomycin and zosyn due to urticaria - WBC down to 22, IV steroids were discontinued Scrotal swelling/edema -resolved - testicular ultrasound showed possible cellulitis. CT abdomen showed edema, no air or gas. Urology consulted, thought no signs of Eladia's and from fluid - continue diuretics Vitamin D deficiency - resolved, - started on vitamin D supplementation given slightly low levels of 23 Physical deconditioning - continue PT and OT DVT prophylaxis: lovenox GI prophylaxis: not needed Disposition: will need rehab on discharge
--- NOTE | 2020-07-07 11:57 | PRG ---
DATE OF SERVICE: 07/07/2020 SUBJECTIVE: Mr. Mart had a variable day. It was reported that his Bumex afternoon dose was not given. Looking back in his records, his systolic blood pressure seem to be at least 100 or higher. It was reported that it was not given due to low blood pressure. He said he feels good and is breathing well. However, Physical Therapy did not come by yesterday. REVIEW OF SYSTEMS: GENERAL: There is no fever or chills. He does have some cough. HEENT: There is no change in vision, hearing, or swallowing. He does have chronic difficulty hearing. PULMONARY: Please see HPI. CARDIAC: There is no complaint of chest pains or palpitations or syncope. GI: There is no complaint of nausea, vomiting, diarrhea. : He has chronic De catheter in. However, he says that he feels like he needs to go all the time. MUSCULOSKELETAL: There are no new complaints this morning. NEUROLOGIC: There are no new focal deficits or weaknesses. MEDICATIONS: Medications that have cardiac effect include 1. Albuterol ipratropium nebs every 4 hours. 2. Atorvastatin 20 mg at bedtime. 3. Bumex 2 mg IV twice a day, at 6 a.m. and also 4 p.m. 4. He is on daptomycin 500 mg daily. 5. Enoxaparin 30 mg subcutaneous daily. 6. Fluticasone propionate, which is Flonase nasal spray. 7. Gabapentin 100 mg b.i.d. 8. Magnesium oxide 400 mg daily. 9. Toprol-XL 12.5 mg b.i.d. 10. Milrinone has been titrated to 0.375 mcg/kg/minute. 11. Dulera 200/5 mcg combination twice a day. 12. Flomax 0.4 mg daily. PHYSICAL EXAMINATION: Telemetry was reviewed. He is remaining in sinus rhythm with average rate about 90. There is occasional PAC. There is occasional multifocal atrial rhythm. There are skipped beats followed with junctional rhythm, but the majority is sinus rhythm. VITAL SIGNS: Latest, heart rate at 95, blood pressure 116/57. His oxygen saturation is a bit low about 92% to 93%. GENERAL: He is alert and conversational, reclining in bed. HEENT: EOMI. NECK: His JVP is very elevated about 14 cm right below the earlobe. PULMONARY. There are expiratory wheezes, more prominent on the left. There are crackles at bilateral bases. His air movement is a bit worse and is more edematous in the lung this morning. CARDIAC: Regular rate and rhythm with occasional irregularity with normal S1/S2, there is 2/6 holosystolic murmur at the left sternal border. ABDOMEN: Mild tenderness. Soft. Positive bowel sounds. EXTREMITIES: He has pitting edema to his hips. He has at least 1 cm pitting edema from his feet all the way to his knees, so he is still in a very edematous state. LABORATORY DATA: White cell count 22.5, hemoglobin 7.2, platelets 289. His chemistry shows sodium of 141, potassium 3.8, chloride 109, bicarb 24, BUN 89, creatinine 2.78. His BNP has decreased from 2521 down to 1023. Thus, the milrinone is having excellent effect. His urine output due to only receiving half of the diuretics was significantly reduced yesterday. He had 2465 in and 1225 out. He has a net positive 1.2 L according to the records. However, looking at his urine bag this morning, he has approximately 800 mL out since this morning. So, he has urine output about 800 since receiving his morning dose of Bumex. ASSESSMENT: 79-year-old gentleman suffers from multiple problems. His principal problem for admission was left hip septic joint. He is still receiving antibiotics for this. He has right ventricular failure and also diastolic dysfunction in his left ventricle. He is requiring milrinone to sustain his cardiac output. With the loss of Bumex yesterday, his CVP went up, so this could have caused the renal function to worsen a little bit. He also became much more anemic. He will need transfusion of blood, but this will help his cardiac output. It will also help the kidneys ideally that we need to keep the hemoglobin above 8. Please see the following for my recommendations. RECOMMENDATIONS: 1. Ensure Bumex 2 mg IV twice a day is given today. 2. Please do studies for iron, TIBC, ferritin, reticulocyte index now. 3. Please transfuse 1 unit of blood after the iron studies and reticulocyte studies are done. 4. If he has any blood pressure issues, I will also make the conversion for milrinone to dobutamine to avoid vasodilation in potential infectious situation. It has been a pressure taking care of Mr. Mart. If any questions, please give me a call. The total visitation time is about 40 minutes. This includes personally performing H and P, reviewing data, coordinating care with multiple services and greater than 50% of time was with direct patient interaction. Job ID: [id number] MTDD
[2020-07-07] MEDS: DAPTOmycin 500 MG in Sodium Chloride 0.9% 100 ML IVPB SCH (13:09)
[2020-07-07] MEDS: Fluticasone Propionate Nasal Spray 16 gm Bottle NASAL SCH (13:55)
--- NOTE | 2020-07-07 15:37 | SPC ---
Exam: Leftupper extremity ultrasound guided PICC line HISTORY: TPN, IV antibiotics Exposure:0.7 minutes, 4579 mGy/sq cm FINDINGS: Lumen: Duallumen Trim length: 44 cm Distal tip:SVC Catheter flushes and aspirates without difficulty TECHNIQUE: Consent obtained to perform a left upper extremity PICC line with ultrasound guidance. Le ftarm was prepped and draped in a sterile fashion. 1% lidocaine, buffered with sodium bicarbonate was used for local anesthesia. Under ultrasound guidance, micropuncture needle was used to cannulate thebasilicvein. A 0.018 guidewire was advanced through the needle to level of the superior vena cava. Under fluoroscopy, the wire was further advanced into the inferior vena cava to document venous access. Wire was subsequently pulled back to theSVC. Dual lumen flushes and aspirates without difficulty. Patient tolerated the procedure well. No immediate or postprocedure complications IMPRESSION: Successfulleftupper surgery PICC line placement with ultrasound guidance
[2020-07-07] MEDS ORDERED: Bumetanide 1 MG/4 ML VIAL IVP SCH (17:00)
--- NOTE | 2020-07-07 17:22 | PRG ---
DATE OF SERVICE: 07/07/2020 SUBJECTIVE: Transferred to tele. Dr. Fowler has been consulted. He has been started on milrinone. He is having scaling from the previous skin eruption mostly in the appendicular structures. No abdominal pain. No cough or dyspnea. OBJECTIVE: VITAL SIGNS: His temperature is normal, blood pressure 112/57, heart rate 88, saturating 96% on 4 L. GENERAL: Awake, oriented. SKIN: Again the scaliness of the skin in the appendicular structures. LUNGS: Symmetric. Clear breath sounds. HEART: S1 and S2. Regular rate. ABDOMEN: Soft, not distended. LABORATORY DATA: White cell count is 22.5, hemoglobin 7.2 and he is getting blood transfusion, platelets 289. INR 1.2. Sodium 141, creatinine 2.78, which has improved from a few days ago. BNP is 1023, which is less than before and he is currently on the bumetanide, daptomycin, Zosyn, tamsulosin. 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 The end date of therapy will be at the end of this month. After that then transition to oral doxycycline for suppressive therapy. Job ID: [id number]
[2020-07-07] MEDS: Atorvastatin Calcium 20 MG TAB PO SCH (20:23)
[2020-07-08] MEDS: Milrinone Lactate/D5W 20 MG in Premix Bag 1 BAG IV SCH ×3 (00:44→22:52)
[2020-07-08 04:57] LABS: Hemoglobin 7.8 g/dL (14.0-18.0); Mean Corpuscular HGB CONC 30.7 g/dL (32.0-36.0); Mean Corpuscular Hemoglobin 27.9 pg (27.0-31.0); Mean Corpuscular Volume 90.8 fL (78.0-98.0); Mean Platelet Volume 9.7 fL (7.4-10.4); Platelet Count 261 thou/uL (130-400); RBC Distribution Width 20.2 % (11.5-14.5); Red Blood Cell (RBC) Count 2.79 mill/uL (4.70-6.10); White Blood Cell (WBC) Count 17.4 thou/uL (4.8-10.8)
[2020-07-08 05:30] LABS: Anion Gap 18 mmol/L (10-20); BUN (Urea Nitrogen) 84 mg/dL (8.4-25.7); Calc. Creatinine Clearance 29 mL/min (70-130); Calcium 7.4 mg/dL (7.8-10.44); Carbon Dioxide 21 mmol/L (23-31); Chloride 107 mmol/L (98-107); Estimated GFR-MDRD 23; Glucose 93 mg/dL (83-110); Potassium 3.4 mmol/L (3.5-5.1); Sodium 143 mmol/L (136-145)
[2020-07-08] MEDS: Piperacillin/Tazobactam 2.25 GM in Sodium Chloride 0.9% 100 ML IVPB SCH ×3 (05:52→18:25)
[2020-07-08] MEDS: Bumetanide 1 MG/4 ML VIAL IVP SCH ×2 (05:53→18:10)
[2020-07-08] MEDS ORDERED: Potassium Chloride 20 MEQ TAB PO SCH ×3 (08:30→16:00)
--- NOTE | 2020-07-08 09:33 | PRG ---
DATE OF SERVICE: 07/08/2020 SUBJECTIVE: This morning, he is sleeping on BiPAP without any distress. OBJECTIVE: VITAL SIGNS: Temperature 98, pulse 87, respirations 20, saturations 98%, and blood pressure 138/72. CHEST: No wheezing. No crackles. CARDIAC: Normal S1 and S2. No gallops. LABORATORY DATA: Creatinine is 2 and BUN is 84. H and H of 7/25, white count 70,000. IMPRESSION: 1. Right-sided failure with severe pulmonary hypertension and diastolic dysfunction. 2. Chronic obstructive pulmonary disease. 3. Respiratory failure, stable. 4. Renal failure. Pulmonary bolton, at this stage, continue O2 neb treatments and supportive care. Job ID: [id number]
--- NOTE | 2020-07-08 09:41 | PRG ---
DATE OF SERVICE: 07/08/2020 SUBJECTIVE: Mr. Mart is resting with a CPAP machine. He says he feels okay. OBJECTIVE: VITAL SIGNS: Blood pressure 130/72 and pulse 90s. LUNGS: Clear. CARDIAC: Normal S1 and S2. ABDOMEN: Soft and nontender. EXTREMITIES: Still [id number] edema. LABORATORY DATA: Hemoglobin stable at 7.8. Ferritin level still low at 97.8. Is and Os, 1.4 L. His weight is 202. ASSESSMENT: 1. Congestive heart failure, diastolic, chronic, severe, refractory, seems to be responding some to Milrinone. 2. Renal failure, stable. 3. BNP is improved with Milrinone. 4. Anemia, iron deficiency due to slow GI blood loss. PLAN: 1. I have stopped the aspirin. 2. He is on low-dose enoxaparin as he is very high risk for deep venous thrombosis. 3. Some additional intravenous iron. 4. Prognosis remains guarded to poor. Thank you so much for Dr. Fowler's excellent help. Job ID: [id number]
--- NOTE | 2020-07-08 10:34 | PRG ---
DATE OF SERVICE: 07/08/2020 SUBJECTIVE: Patient was seen and examined at bedside and overnight events noted. Patient denies any shortness of breath or chest pain or palpitation. No history of nausea or vomiting or diarrhea or fever or chills or cramps. OBJECTIVE: GENERAL: This is well-built male, in no apparent distress. VITAL SIGNS: Temperature 98.1. Heart rate 87. Respiratory rate 20. Blood pressure 138/72. HEENT: Atraumatic, normocephalic. Oral mucosa is moist. NECK: Supple. CARDIOVASCULAR: S1, S2 heard. Rate and rhythm regular. RESPIRATORY: Clear to auscultation. GASTROINTESTINAL: Abdomen is soft. MUSCULOSKELETAL: No tenderness. No edema. DERMATOLOGIC: No skin rash. NEUROLOGIC: Alert and awake and oriented x3. No focal neurologic deficits. Moving all the extremities. PSYCHIATRIC: Mood and affect normal. LABORATORY DATA: Potassium 3.5, BUN is 84, creatinine is 2.7. ASSESSMENT AND PLAN: 1. Acute kidney injury on chronic kidney disease, stage 4 with stable creatinine on diuretics. 2. Cardiorenal syndrome on diuretics per Cardiology. 3. Hypokalemia - will give an extra doses in the evening. 4. Edema - on diuretics. 5. Hypertension. Renal function, remains stable on diuretics. We will continue close monitoring. Replace electrolytes cautiously. Job ID: [id number] [facility]
[2020-07-08] MEDS: Magnesium Oxide 400 MG TAB PO SCH (10:37)
[2020-07-08] MEDS: Senokot S 8.6-50 MG TAB PO SCH ×2 (10:37→21:35)
[2020-07-08] MEDS: Cholecalciferol (Vitamin D3) 400 UNITS TAB PO SCH (10:37)
[2020-07-08] MEDS: Gabapentin 100 MG CAP PO SCH ×2 (10:37→21:36)
[2020-07-08] MEDS: guaiFENesin ER 600 MG TAB PO SCH ×2 (10:38→21:35)
[2020-07-08] MEDS: Ferrous Gluconate 324 MG TAB PO SCH ×2 (10:38→21:36)
[2020-07-08] MEDS: Multivitamin W/ Minerals 1 TAB PO SCH (10:38)
[2020-07-08] MEDS: Tamsulosin HCl 0.4 MG CAP PO SCH (10:39)
[2020-07-08] MEDS: Enoxaparin Sodium 30 MG/0.3 ML SYRINGE SC SCH (10:39)
[2020-07-08] MEDS: Fluticasone Propionate Nasal Spray 16 gm Bottle NASAL SCH (10:43)
[2020-07-08] MEDS: Iron, Sodium Ferric Gluconate 250 MG in Sodium Chloride 0.9% 100 ML IVPB SCH ×2 (10:46→22:52)
[2020-07-08] MEDS: Nystatin Powder 15 GM BOT TOP SCH ×2 (10:46→21:36)
[2020-07-08] MEDS ORDERED: Morphine 2 MG/ML VIAL SLOW IVP PRN (10:47)
[2020-07-08] MEDS ORDERED: Morphine 4 MG/ML VIAL SLOW IVP PRN (10:48)
[2020-07-08] MEDS ORDERED: Bumetanide 1 MG/4 ML VIAL IVP SCH (11:00)
[2020-07-08] MEDS ORDERED: Calcium Gluconate 4.6 MEQ in Sodium Chloride 0.9% 100 ML IVPB SCH (11:00)
[2020-07-08] MEDS: Mometasone 200 MCG/Formoterol 5 MCG 120 PUFF INHALER INH SCH ×2 (11:18→19:23)
--- NOTE | 2020-07-08 13:34 | PRG ---
DATE OF SERVICE: 07/08/2020 SERVICE: Advanced Heart Failure Cardiology Consulting Service. SUBJECTIVE: Mr. Mart had a good day yesterday. He received 1 unit of blood. He was transferred from small room to big room. He tolerated the transfusion without any difficulty. Bumex 2 mg IV was resumed. He has significant urine output because of that. He said that he believes he is breathing easier, has a little bit more energy level, and he believed that his swelling has continued to decrease. REVIEW OF SYSTEMS: GENERAL: There is no fever, chills, or productive cough. HEENT: There is no change in vision, hearing, or swallowing. PULMONARY: Please see HPI. CARDIAC: There is no complaint of palpitation, chest pain, or syncope. GI: He is able to eat without complaint of diarrhea. : He has a De catheter. MUSCULOSKELETAL: He is currently not complaining of joint pains. INTEGUMENT: There is no complaint of new skin breakdown. NEUROLOGIC: There are no complaints of focal deficits or weaknesses. MEDICATIONS: His active medication that has cardiac effect includes albuterol-ipratropium nebs q.4 hours, atorvastatin 20 mg daily, Bumex 2 mg IV twice a day, enoxaparin 30 mg subcutaneously daily, magnesium oxide 400 mg daily, Toprol-XL 12.5 mg b.i.d., Milrinone currently at 0.375 mcg/kg/minute, Dulera (mometasone/formoterol) at 200 mcg-5 mcg combination, Flomax 0.4 mg daily. He is still on daptomycin and also Zosyn. Telemetry is reviewed. He is predominantly sinus rhythm. He has multiple atrial origins of pacing; thus, he has a wandering pacemaker rhythm. He also has some junctional rhythm. Thus, he has a mixed bag of atrial rhythm and then also some junctional complexes. Otherwise, there are no concerning arrhythmias. PHYSICAL EXAMINATION: VITAL SIGNS: His latest vitals are heart rate 87, blood pressure 138/72. He is on BiPAP. GENERAL: He is alert and can talk through the BiPAP. He is conversational. HEENT: EOMI. His oropharynx apparently is moist mucosa. NECK: JVP is still high at about 12 to 13 cm. PULMONARY: He has decreased breath sounds on the left with expiratory wheeze. This is chronic, but there are no crackles. The right lung has better air movement and there are no crackles. CARDIAC: Mostly regular rate and rhythm with occasional irregularity with 2/6 holosystolic murmur at the apex. ABDOMEN: Soft, nontender. EXTREMITIES/MUSCULOSKELETAL: However, he does have pitting edema in the hip, that is less so than yesterday. He also has some dependent edema on his upper extremity, but there is a lot less than several days ago. He has about 1 cm pitting edema from feet, retirement towards the knee. His overall lower extremity edema has significantly decreased and he has also had significant improvement from yesterday. LABORATORY DATA: His laboratory value shows white cell count 17.4, hemoglobin 7.8, this is an inadequate increase from 1 unit transfusion, and has a platelet count of 261. His blood chemistry shows sodium 143, potassium 3.4, chloride 107, bicarb of 21, BUN at 84 is decreased from 89, creatinine is 2.72, this is decreased from 2.78. His other lab values showed he has a low iron of 33, with normal ferritin of 97.8, but a low total iron binding capacity of only at 194. ASSESSMENT AND PLAN: 79-year-old gentleman suffered from primary reason of a left septic joint post left hip replacement. He has right ventricular dysfunction leading to right ventricular failure along with diastolic dysfunction of left ventricle. Milrinone at 0.375 mcg/kg/min has helped. Blood transfusion also helped his cardiac renal syndrome. The current regimen is effective, so we will need to continue for another day. Tomorrow, we will need to slow down diuresis to better preserve his renal function. His hemoglobin has inadequate response to 1 unit of blood. Thus, he will need a transfusion of 2nd unit. The goal is to keep his hemoglobin above 8, that would help his heart failure and also preserve his renal function. I will defer the management of his other issues to the perspective of Infectious Disease and patient accounts specialist. Please see the following for my recommendations; RECOMMENDATIONS 1. Please transfuse 1 unit of blood today. 2. Please continue Bumex 2 mg IV twice a day, and give the second dose after transfusion of blood. 3. Please provide calcium gluconate 1 g IV one dose today. 4. Please provide K-Dur 40 mEq via mouth one dose now. We will need to aim for potassium of 4. 5. Tomorrow, we will slow down his IV diuresis to Bumex 1 mg twice a day and see how he will do. 6. Continue PT, OT. It has been a pleasure taking care of . Bin Mart. If you have any questions, please give me a call. I spent about 30 minutes on this. Greater than 50% of time was spent on direct patient interaction. Job ID: [id number] MTDD
--- NOTE | 2020-07-08 15:17 | PDOC.HOSPP ---
- Subjective Encounter Date: 07/08/20 Encounter Time: 10:00 Subjective: The patient states his breathing feels okay. He has not ambulated yet with PT He has no chest congestion. - Objective Vital Signs & Weight: Vital Signs (12 hours) Temp Pulse Pulse Resp BP BP BP 07/08/20 15:13 86 16 07/08/20 15:04 97.7 F 106 H 18 137/67 07/08/20 11:45 97.7 F 102 H 23 H 154/67 H 07/08/20 11:10 97 16 07/08/20 08:00 98.1 F 87 20 138/72 07/08/20 04:00 07/08/20 03:24 97.8 F 82 18 115/60 Pulse Ox 07/08/20 15:13 07/08/20 15:04 94 L 07/08/20 11:45 92 L 07/08/20 11:10 07/08/20 08:00 99 07/08/20 04:00 96 07/08/20 03:24 96 Weight Admit Weight 195 lb Weight 202 lb 6.15 oz Most Recent Monitor Data Heart Rate from ECG 92 NIBP 119/85 NIBP BP-Mean 96 Respiration from ECG 22 SpO2 94 I&O: 07/07/20 07/08/20 07/09/20 06:59 06:59 06:59 Intake Total 2465 2177 0 Output Total 1225 3650 Balance 1240 -1473 0 Result Diagrams: 07/08/20 03:31 07/08/20 03:31 Hospitalist ROS - Review of Systems Constitutional: denies: fever, chills - Medication Medications: Active Medications Generic Name Dose Route Start Last Admin Trade Name Freq PRN Reason Stop Dose Admin Acetaminophen 650 mg 06/03/20 16:52 07/04/20 20:48 Tylenol PO 650 mg Q4H PRN Administration Headache/Fever or Pain Albuterol/Ipratropium 3 ml 06/20/20 18:30 07/08/20 15:13 Duoneb NEB 3 ml [id number] SHORTY Administration Atorvastatin Calcium 20 mg 06/02/20 21:00 07/07/20 20:23 Lipitor PO 20 mg HS SHORTY Administration Bumetanide 2 mg 07/08/20 06:00 07/08/20 05:53 Bumetanide 1 Mg/4 Ml Vial IVP 2 mg 0600,1400 SHORTY Administration Cholecalciferol 800 units 06/07/20 09:00 07/08/20 10:37 Vitamin D PO 800 units DAILY SHORTY Administration Diphenhydramine HCl 25 mg 06/03/20 16:52 07/04/20 20:49 Benadryl PO 25 mg Q6H PRN Administration Itching Enoxaparin Sodium 30 mg 06/20/20 09:00 07/08/20 10:39 Lovenox SC 30 mg 0900 SHORTY Administration Ferrous Gluconate 324 mg 06/03/20 21:00 07/08/20 10:38 Fergon PO 324 mg BID SHORTY Administration Fluticasone Propionate 0 gm 06/20/20 09:00 07/08/20 10:43 Flonase Nasal [place] NASAL 2 spr DAILY SHORTY Administration Gabapentin 100 mg 06/02/20 21:00 07/08/20 10:37 Neurontin PO 100 mg BID SHORTY Administration Guaifenesin 600 mg 06/22/20 21:00 07/08/20 10:38 Mucinex PO 600 mg Q12HR SHORTY Administration Hydroxyzine Pamoate 25 mg 06/29/20 08:33 07/03/20 05:52 Vistaril PO 25 mg Q4H PRN Administration Hypersensitivity reaction Milrinone Lactate/Dextrose 20 100 mls @ 11.149 mls/hr 07/06/20 09:15 07/08/20 10:35 mg/ Device IV 100 mls INF SHORTY Administration Protocol 0.375 MCG/KG/MIN Piperacillin Sod/Tazobactam 100 mls @ 200 mls/hr 07/08/20 06:00 07/08/20 13:15 Sod 2.25 gm/ Sodium Chloride IVPB 100 mls Q6HR SHORTY Administration Ferric Sodium Gluconate 120 mls @ 60 mls/hr 07/08/20 10:00 07/08/20 10:46 Complex 250 mg/ Sodium IVPB 07/08/20 23:59 120 mls Chloride Q12H SHORTY Administration Iron/Minerals/Multivitamins 1 tab 06/04/20 09:00 07/08/20 10:38 Theragran M PO 1 tab DAILY SHORTY Administration Magnesium Oxide 400 mg 06/11/20 09:00 07/08/20 10:37 Magnesium Oxide PO 400 mg DAILY SHORTY Administration Metoprolol Succinate 12.5 mg 07/05/20 21:00 07/08/20 10:40 Toprol Xl PO 12.5 mg BID SHORTY Administration Mometasone Furoate/Formoterol Fumar 2 puff 07/05/20 18:30 07/08/20 11:18 Dulera 200 Mcg/5 Mcg Inhaler INH 2 puff BID-RT SHORTY Administration Nystatin 0 gm 07/06/20 09:00 07/08/20 10:46 Nystatin Powder 15 Gm Bot TOP 1 applic BID SHORTY Administration Pantoprazole Sodium 40 mg 06/02/20 21:00 07/08/20 10:38 Protonix PO 40 mg BID SHORTY Administration Senna/Docusate Sodium 2 tab 06/03/20 21:00 07/08/20 10:37 Senokot S PO 2 tab BID SHORTY Administration Sodium Chloride 10 ml 06/14/20 13:26 07/08/20 10:43 Flush - Normal Saline IVF 10 ml PRN PRN Administration Saline Flush Tamsulosin HCl 0.4 mg 06/03/20 09:00 07/08/20 10:39 Flomax PO 0.4 mg DAILY SHORTY Administration - Exam General Appearance: NAD, awake alert Eye: PERRL, anicteric sclera ENT: normocephalic atraumatic, no oropharyngeal lesions Neck: no JVD Heart: RRR, no murmur, no gallops, no rubs Respiratory: CTAB, no wheezes, no rales, no ronchi Gastrointestinal: soft, non-tender, non-distended, normal bowel sounds Extremities: 1+ LE edema Skin: normal turgor, no lesions, no rashes Neurological: cranial nerve grossly intact, normal sensation to touch, no focal deficits, no new deficit Musculoskeletal: normal tone, normal strength, no muscle wasting Hosp A/P - Plan Chest X ray: widespread interstitial reticulonodular prominence Testicular ultrasound: Small right-sided hydrocele. Bilateral epididymal cysts with mild heterogeneity of the epididymis. Severe scrotal wall thickening. CT abdomen: prominent edema and fluid infiltration throughout the scrotum without soft tissue gas or evidence of abscess. Renal US: no obstructive uropathy. Splneomegaly. 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 Has been in the hospital for > 1 month due to heart failure Acute diastolic heart failure secondary to pulmonary edema - ECHO 06/03 showed severely elevated pulm artery pressure . Chest X ray shows widespread interstitial reticulonodular prominence - continue bumex 2 mg IV bid - continue milrinone, adjust per Dr. 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 Was on vanc and meropenem, but switched to daptomycin and zosyn due to urticaria - WBC down to 17, antibiotics to continue until the end of June Scrotal swelling/edema -resolved - testicular ultrasound showed possible cellulitis. CT abdomen showed edema, no air or gas. Urology consulted, thought no signs of Eladia's and from fluid - continue diuretics Vitamin D deficiency - resolved, started on vitamin D supplementation given slightly low levels of 23 Physical deconditioning - continue PT and OT DVT prophylaxis: lovenox GI prophylaxis: not needed Disposition: will need rehab on discharge
[2020-07-08 19:59] LABS: Hemoglobin 9.9 g/dL (14.0-18.0); Mean Corpuscular HGB CONC 31.2 g/dL (32.0-36.0); Mean Corpuscular Hemoglobin 28.3 pg (27.0-31.0); Mean Corpuscular Volume 90.9 fL (78.0-98.0); Mean Platelet Volume 9.4 fL (7.4-10.4); Platelet Count 269 thou/uL (130-400); RBC Distribution Width 19.6 % (11.5-14.5); Red Blood Cell (RBC) Count 3.48 mill/uL (4.70-6.10); White Blood Cell (WBC) Count 20.4 thou/uL (4.8-10.8)
[2020-07-08 20:12] LABS: Potassium 3.9 mmol/L (3.5-5.1)
[2020-07-08] MEDS: Atorvastatin Calcium 20 MG TAB PO SCH (21:36)
[2020-07-09] MEDS: Piperacillin/Tazobactam 2.25 GM in Sodium Chloride 0.9% 100 ML IVPB SCH ×4 (00:31→17:12)
[2020-07-09] MEDS: Bumetanide 1 MG/4 ML VIAL IVP SCH ×2 (05:01→14:31)
[2020-07-09 05:29] LABS: Mean Corpuscular HGB CONC 31.9 g/dL (32.0-36.0); Mean Corpuscular Hemoglobin 29.1 pg (27.0-31.0); Mean Corpuscular Volume 91.1 fL (78.0-98.0); Mean Platelet Volume 9.6 fL (7.4-10.4); Platelet Count 246 thou/uL (130-400); RBC Distribution Width 19.8 % (11.5-14.5); Red Blood Cell (RBC) Count 3.08 mill/uL (4.70-6.10); White Blood Cell (WBC) Count 18.7 thou/uL (4.8-10.8)
[2020-07-09 05:37] LABS: Anion Gap 16 mmol/L (10-20); BUN (Urea Nitrogen) 78 mg/dL (8.4-25.7); Calc. Creatinine Clearance 30 mL/min (70-130); Calcium 7.9 mg/dL (7.8-10.44); Carbon Dioxide 24 mmol/L (23-31); Chloride 106 mmol/L (98-107); Estimated GFR-MDRD 24; Glucose 151 mg/dL (83-110); Potassium 3.7 mmol/L (3.5-5.1); Sodium 142 mmol/L (136-145)
[2020-07-09] MEDS: Mometasone 200 MCG/Formoterol 5 MCG 120 PUFF INHALER INH SCH ×2 (09:07→18:35)
[2020-07-09] MEDS: Senokot S 8.6-50 MG TAB PO SCH ×2 (09:12→20:13)
[2020-07-09] MEDS: Tamsulosin HCl 0.4 MG CAP PO SCH (09:13)
[2020-07-09] MEDS: Gabapentin 100 MG CAP PO SCH ×2 (09:13→20:12)
[2020-07-09] MEDS: Magnesium Oxide 400 MG TAB PO SCH (09:13)
[2020-07-09] MEDS: guaiFENesin ER 600 MG TAB PO SCH ×2 (09:13→20:12)
[2020-07-09] MEDS: Multivitamin W/ Minerals 1 TAB PO SCH (09:13)
[2020-07-09] MEDS: Cholecalciferol (Vitamin D3) 400 UNITS TAB PO SCH (09:14)
[2020-07-09] MEDS: Ferrous Gluconate 324 MG TAB PO SCH ×2 (09:14→20:12)
[2020-07-09] MEDS: Enoxaparin Sodium 30 MG/0.3 ML SYRINGE SC SCH (09:32)
[2020-07-09] MEDS: Fluticasone Propionate Nasal Spray 16 gm Bottle NASAL SCH (09:33)
[2020-07-09] MEDS: Nystatin Powder 15 GM BOT TOP SCH ×2 (09:33→20:13)
[2020-07-09] MEDS ORDERED: Potassium Chloride 20 MEQ TAB PO SCH (09:45)
--- NOTE | 2020-07-09 11:05 | PRG ---
DATE OF SERVICE: 07/09/2020 SERVICE: Advanced Heart Failure Cardiology Consult Service. SUBJECTIVE: Mr. Mart had a good day yesterday. He said he was energetic. He received 1 unit of blood. He had a good response with that with increasing energy level. He had a large volume of urine output throughout the day. However, there is one 8-hour period that may not have been recorded. Overnight, he said he was short of breath, and at one time, one of the nurses reported that he has low oxygen saturation down to 83%, he was put on BiPAP overnight to sleep. His oxygen saturation came up. He said that he is more fatigued this morning. REVIEW OF SYSTEMS: GENERAL: There is no fever, chills, or productive cough. HEENT: There is no change in vision, hearing, or swallowing. However, he has a chronic hard of hearing. PULMONARY: He says he is breathing about the same, but to me, he seems to look more short of breath. CARDIAC: There is no complaints of palpitation, chest pain, or syncope. GI: There is no complaint of nausea, vomiting, or diarrhea. However, he does not like the breakfast here. He wants his to bring him the breakfast. : He has a De catheter in place. MUSCULOSKELETAL: He complains of back pain from lying in bed. INTEGUMENT: There are no new complaints of skin breakdown. NEUROLOGIC: There are no new complaints of focal deficits or weaknesses. MEDICATIONS: That can have cardiac effect include; 1. Albuterol and ipratropium nebs every 4 hours. 2. Atorvastatin 20 mg at bedtime. 3. Bumex 2 mg IV twice a day. 4. Daptomycin at 500 mg daily. 5. Enoxaparin at 30 mg daily. 6. Gabapentin 100 mg twice a day. 7. Magnesium oxide 400 mg daily. 8. Toprol-XL at 12.5 mg twice a day. 9. Milrinone currently at 0.375 mcg/kg per minute. 10. Dulera 200-5 mcg combination two puffs twice a day. 11. Zosyn 2.25 g q.6 hours. 12. Flomax 0.4 mg daily. The telemetry was reviewed. 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 There are times still he also goes into junctional rhythm. Overall, he does not have a concerning arrhythmia. OBJECTIVE: VITAL SIGNS: His current vitals, heart rate 69, blood pressure 148/67, this is the most hypertensive yet, but he does have back pain, so I do not plan to add on antihypertensive until this trend becomes persistent. HEENT: Showed EOMI. Oropharynx is benign with moist mucosa. NECK: His JVP is elevated, a little bit higher today I believe, it is about 14 cm right near the earlobe. PULMONARY: He has decreased breath sounds on the right with expiratory wheeze. On the left, he has further decreased breath sounds with slow air movement and expiratory wheeze. CARDIAC: Regular rate and rhythm most of time, but there is occasional irregularity. There is normal S1/S2. There is 2/6 holosystolic murmur at left sternal border. ABDOMEN: Mildly distended. Positive bowel sounds. EXTREMITIES: Lower extremity has greater than 1 cm pitting edema from feet up to 2/[address] way toward his knees. His edema about his arm has significantly decreased. The documented input and output are 3724 in and 3110 out, so he is slightly net positive. LABORATORY VALUES: White cell count 18,000, hemoglobin 9, and platelets are 246. His chemistry showed sodium 142, potassium 3.7, chloride 106, bicarb 24, BUN has decreased to 78 and creatinine has decreased down to 2.58, thus his renal functions are improving. ASSESSMENT: 79-year-old gentleman continues to suffer from the primary admission of left hip joint infection and also chronic obstructive pulmonary disease exacerbation. However, he does have a right ventricular dysfunction with right ventricular failure in conjunction with left ventricular diastolic dysfunction. He likely resides in [place] [employer] stage C, Morgan heart Association class 3B heart failure with preserved ejection fraction; however, this is predominantly a right-sided heart failure. Milrinone 0.375 mcg/kg per minute with Bumex 2 mg twice a day seemed to be sufficient. His BUN and creatinine have improved. He has significant amount of urine output. However, there are other factors making his respiration difficult. Since stopping of the steroids, his pulmonary status seems to have worsened a bit. He still has ongoing infection that is being treated. He will need long-term suppressive antibiotics for this too. For now, we will continue with milrinone to sustain his cardiac output and continue with Bumex 2 mg IV twice a day to sustain his net negative output. We will consider slowing down diuresis tomorrow. He also has a little bit low potassium, this will also need to be supplemented. Please see following for more recommendations. RECOMMENDATIONS 1. Continue with milrinone at 0.375 mcg/kg per minute. 2. Continue with Bumex 2 mg IV b.i.d. 3. Please supplement with potassium chloride 20 mEq once today, we need to aim to keep the potassium near 4 as possible to decrease chances of arrhythmia. 4. Over a period of week, if things work well, I will attempt to titrate off the milrinone. 5. His long-term prognosis is grim. It has been a pleasure taking care of Mr. Mart. If you have any questions, please give me a call. The total time spent on this visit is about 35 minutes. Greater than 50% of time was spent on direct patient interaction including explanation and counseling. Job ID: [id number] [facility]
--- NOTE | 2020-07-09 11:12 | PRG ---
DATE OF SERVICE: 07/09/2020 SUBJECTIVE: Patient was seen and examined at bedside and overnight events noted. Patient denies any shortness of breath or chest pain or palpitation. No history of nausea or vomiting or diarrhea or fever or chills or cramps. OBJECTIVE: GENERAL: This is a well-built male, in no apparent distress. VITAL SIGNS: Temperature 98.9. Heart Rate 93. Respiratory rate 18. Blood pressure 148/67. HEENT: Atraumatic, normocephalic. Oral mucosa is moist. NECK: Supple. CARDIOVASCULAR: S1, S2 heard. Rate and rhythm regular. RESPIRATORY: Clear to auscultation. GASTROINTESTINAL: Abdomen is soft. MUSCULOSKELETAL: No tenderness. No edema. DERMATOLOGIC: No skin rash. NEUROLOGIC: Alert and awake and oriented x3. No focal neurologic deficits. Moving all the extremities. PSYCHIATRIC: Mood and affect normal. LABORATORY DATA: Potassium is 3.7, creatinine is 2.5. ASSESSMENT AND PLAN: 1. Acute kidney injury on chronic kidney disease stage 4, stable creatinine. 2. Cardiorenal syndrome. 3. Fluid overload with edema 4. History of hypertension. 5. Hypokalemia - monitor K and Mg level. Monitor labs. Continue diuretics. We will follow. Job ID: [id number] MTDD
[2020-07-09] MEDS: DAPTOmycin 500 MG in Sodium Chloride 0.9% 100 ML IVPB SCH (14:20)
[2020-07-09] MEDS ORDERED: methylPREDNISolone Sod Succ 40 MG VIAL IVP SCH (15:30)
--- NOTE | 2020-07-09 15:36 | PDOC.HOSPP ---
- Subjective Encounter Date: 07/09/20 Subjective: The patient remains hospitalized. His overall condition is not significantly changed since I last saw him a week ago. Remains with shortness of breath and lower extremity edema. - Objective Vital Signs & Weight: Vital Signs (12 hours) Temp Pulse Pulse Pulse Resp BP BP 07/09/20 14:47 103 H 101 H 105 H 20 132/64 163/71 H 07/09/20 12:00 97.5 F L 96 25 H 07/09/20 11:40 96 20 07/09/20 08:41 07/09/20 08:40 93 24 H 07/09/20 08:00 07/09/20 04:00 69 BP BP Pulse Ox Pulse Ox Pulse Ox Pulse Ox 07/09/20 14:47 82 L 95 93 L 07/09/20 12:00 157/67 H 96 07/09/20 11:40 07/09/20 08:41 93 L 07/09/20 08:40 07/09/20 08:00 94 L 07/09/20 04:00 148/67 H Weight Admit Weight 195 lb Weight 212 lb 4.8 oz Most Recent Monitor Data Heart Rate from ECG 92 NIBP 119/85 NIBP BP-Mean 96 Respiration from ECG 22 SpO2 94 I&O: 07/08/20 07/09/20 07/10/20 06:59 06:59 06:59 Intake Total 2177 3724 Output Total 3650 3110 Balance -1473 614 Result Diagrams: 07/09/20 04:57 07/09/20 04:57 Hospitalist ROS - Medication Medications: Active Medications Generic Name Dose Route Start Last Admin Trade Name Lucy PRN Reason Stop Dose Admin Acetaminophen 650 mg 06/03/20 16:52 07/04/20 20:48 Tylenol PO 650 mg Q4H PRN Administration Headache/Fever or Pain Albuterol/Ipratropium 3 ml 06/20/20 18:30 07/09/20 14:47 Duoneb NEB 3 ml [id number] SHORTY Administration Atorvastatin Calcium 20 mg 06/02/20 21:00 07/08/20 21:36 Lipitor PO 20 mg HS SHORTY Administration Bumetanide 2 mg 07/08/20 06:00 07/09/20 14:31 Bumetanide 1 Mg/4 Ml Vial IVP 2 mg 0600,1400 SHORTY Administration Cholecalciferol 800 units 06/07/20 09:00 07/09/20 09:14 Vitamin D PO 800 units DAILY SHORTY Administration Diphenhydramine HCl 25 mg 06/03/20 16:52 07/04/20 20:49 Benadryl PO 25 mg Q6H PRN Administration Itching Enoxaparin Sodium 30 mg 06/20/20 09:00 07/09/20 09:32 Lovenox SC 30 mg 0900 SHORTY Administration Ferrous Gluconate 324 mg 06/03/20 21:00 07/09/20 09:14 Fergon PO 324 mg BID SHORTY Administration Fluticasone Propionate 0 gm 06/20/20 09:00 07/09/20 09:33 Flonase Nasal Gary NASAL 2 spr DAILY SHORTY Administration Gabapentin 100 mg 06/02/20 21:00 07/09/20 09:13 Neurontin PO 100 mg BID SHORTY Administration Guaifenesin 600 mg 06/22/20 21:00 07/09/20 09:13 Mucinex PO 600 mg Q12HR SHORTY Administration Hydroxyzine Pamoate 25 mg 06/29/20 08:33 07/03/20 05:52 Vistaril PO 25 mg Q4H PRN Administration Hypersensitivity reaction Milrinone Lactate/Dextrose 20 100 mls @ 11.149 mls/hr 07/06/20 09:15 07/08/20 22:52 mg/ Device IV 100 mls INF SHORTY Administration Protocol 0.375 MCG/KG/MIN Piperacillin Sod/Tazobactam 100 mls @ 200 mls/hr 07/08/20 06:00 07/09/20 12:20 Sod 2.25 gm/ Sodium Chloride IVPB 100 mls Q6HR SHORTY Administration Daptomycin 500 mg/ Sodium 100 mls @ 200 mls/hr 07/09/20 13:00 07/09/20 14:20 Chloride IVPB 100 mls Q48H SHORTY Administration Iron/Minerals/Multivitamins 1 tab 06/04/20 09:00 07/09/20 09:13 Theragran M PO 1 tab DAILY SHORTY Administration Magnesium Oxide 400 mg 06/11/20 09:00 07/09/20 09:13 Magnesium Oxide PO 400 mg DAILY SHORTY Administration Metoprolol Succinate 12.5 mg 07/05/20 21:00 07/09/20 09:13 Toprol Xl PO 12.5 mg BID SHORTY Administration Mometasone Furoate/Formoterol Fumar 2 puff 07/05/20 18:30 07/09/20 09:07 Dulera 200 Mcg/5 Mcg Inhaler INH 2 puff BID-RT SHORTY Administration Nystatin 0 gm 07/06/20 09:00 07/09/20 09:33 Nystatin Powder 15 Gm Bot TOP 1 applic BID SHORTY Administration Pantoprazole Sodium 40 mg 06/02/20 21:00 07/09/20 09:14 Protonix PO 40 mg BID SHORTY Administration Senna/Docusate Sodium 2 tab 06/03/20 21:00 07/09/20 09:12 Senokot S PO 2 tab BID SHORTY Administration Sodium Chloride 10 ml 06/14/20 13:26 07/08/20 21:38 Flush - Normal Saline IVF 10 ml PRN PRN Administration Saline Flush Tamsulosin HCl 0.4 mg 06/03/20 09:00 07/09/20 09:13 Flomax PO 0.4 mg DAILY SHORTY Administration - Exam General Appearance: awake alert ENT: normocephalic atraumatic Neck: no JVD Heart: RRR Respiratory: normal chest expansion, no tachypnea, rhonchi Extremities: 1+ LE edema Hosp A/P (1) Acute on chronic diastolic (congestive) heart failure Code(s): I50.33 - ACUTE ON CHRONIC DIASTOLIC (CONGESTIVE) HEART FAILURE Status: Acute (2) Atrial fibrillation Code(s): I48.91 - UNSPECIFIED ATRIAL FIBRILLATION Status: Chronic Qualifiers: (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 Code(s): T84.59XA - INFECT/INFLM REACTION DUE TO OT INTERNAL JOINT PROSTH, INIT; Z96.649 - PRESENCE OF UNSPECIFIED ARTIFICIAL HIP JOINT Status: Acute (4) BPH (benign prostatic hyperplasia) Code(s): N40.0 - BENIGN PROSTATIC HYPERPLASIA WITHOUT LOWER URINRY TRACT SYMP Status: Chronic Qualifiers: (5) CKD (chronic kidney disease) stage 3, GFR 30-59 ml/min Code(s): N18.3 - CHRONIC KIDNEY DISEASE, STAGE 3 (MODERATE) Status: Chronic (6) HTN (hypertension) Code(s): I10 - ESSENTIAL (PRIMARY) HYPERTENSION Status: Chronic Qualifiers: (7) Red man syndrome Code(s): L27.0 - GEN SKIN ERUPTION DUE TO DRUGS AND MEDS TAKEN INTERNALLY Status: Acute - Plan This is an 79 year old male with past medical history of multiple hip surgeries presenting with left thigh and hip pain Left thigh and hip pain 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 He is now on milrinone drip. On Bumex for diuresis. He is diuresing well and his creatinine has been stable between 2 and 2.5. Continue scheduled nebulizer treatments and start corticosteroids since he is still wheezing. Continue IV antibiotics per ID recommendations.
--- NOTE | 2020-07-09 19:15 | PRG ---
DATE OF SERVICE: 07/09/2020 SUBJECTIVE: Mr. Mart continues to receive antibiotic therapy. He has shown a little bit of improvement in his peripheral edema, although this is largely due to elevation of his feet and being predominantly in a bed-bound position. He remains on broad-spectrum antibiotics directed at his hip infection. From a COPD and pulmonary hypertension (RVSP 68) he is about the same. I think that he is going to need aggressive rehabilitation, whether that be in a [place] [facility] facility or in a formal rehab program or LTAC. PHYSICAL EXAMINATION: VITAL SIGNS: Blood pressure 152/70, respiratory rate 24, heart rate 102. He is afebrile. Pulse ox 97% on 4 L oxygen. GENERAL: He is mildly dyspneic. He was somewhat drowsy this afternoon according to his family, but was quite alert when I was there visiting. LUNGS: He is not using accessory muscles, does not have cough or sputum. His lungs are clear. HEART: Regular rate and rhythm. He does still have 1 to 2+ pretibial edema, although this is reported to be improved. IMPRESSION: 1. Chronic obstructive pulmonary disease. 2. Pulmonary hypertension with right ventricular systolic pressure 68. 3. Obstructive sleep apnea. He is on CPAP at home using BiPAP here in the hospital. 4. Severe general debility. 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 PLAN: He will continue with current therapies. He has been started on Milrinone and hopefully this will do a little bit as far as diuresis although limited by his creatinine of 2-2.5 and his pulmonary hypertension. I would be somewhat hesitant about over-diuresis and potential worsening of both renal function as well as hypotension. His pulmonary hypertension is going to make him somewhat volume sensitive. From my perspective, the most beneficial thing for him at this time is to be out of bed and participating in aggressive rehab program, probably at a formal rehab facility. Job ID: [id number]
[2020-07-09] MEDS: Acetaminophen 325 MG TAB PO PRN (20:11)
[2020-07-09] MEDS: Atorvastatin Calcium 20 MG TAB PO SCH (20:12)
[2020-07-10] MEDS: Piperacillin/Tazobactam 2.25 GM in Sodium Chloride 0.9% 100 ML IVPB SCH ×5 (00:04→22:22)
[2020-07-10] MEDS: Milrinone Lactate/D5W 20 MG in Premix Bag 1 BAG IV SCH ×3 (00:10→19:10)
[2020-07-10 04:33] LABS: #Lymphocytes 0.5 thou/uL (1.20-3.40); #Monocytes 0.2 thou/uL (0.11-0.59); #Neutrophils 12.2 thou/uL (1.40-6.50); %Eosinophils 0.3 % (0.0-10.0); %Lymphocytes 3.5 % (21.0-51.0); %Monocytes 1.4 % (0.0-10.0); %Neutrophils 94.8 % (42.0-75.0); Hemoglobin 8.1 g/dL (14.0-18.0); Mean Corpuscular HGB CONC 30.3 g/dL (32.0-36.0); Mean Corpuscular Hemoglobin 27.7 pg (27.0-31.0); Mean Corpuscular Volume 91.4 fL (78.0-98.0); Mean Platelet Volume 9.5 fL (7.4-10.4); Platelet Count 247 thou/uL (130-400); RBC Distribution Width 19.5 % (11.5-14.5); Red Blood Cell (RBC) Count 2.94 mill/uL (4.70-6.10); White Blood Cell (WBC) Count 12.9 thou/uL (4.8-10.8)
[2020-07-10 04:58] LABS: Anion Gap 17 mmol/L (10-20); BUN (Urea Nitrogen) 72 mg/dL (8.4-25.7); Calc. Creatinine Clearance 30 mL/min (70-130); Carbon Dioxide 20 mmol/L (23-31); Chloride 107 mmol/L (98-107); Estimated GFR-MDRD 23; Glucose 260 mg/dL (83-110); Potassium 4.1 mmol/L (3.5-5.1); Sodium 140 mmol/L (136-145)
[2020-07-10] MEDS: Bumetanide 1 MG/4 ML VIAL IVP SCH ×2 (05:06→15:14)
[2020-07-10] MEDS: Senokot S 8.6-50 MG TAB PO SCH ×2 (08:04→20:29)
[2020-07-10] MEDS: Cholecalciferol (Vitamin D3) 400 UNITS TAB PO SCH (08:04)
[2020-07-10] MEDS: Enoxaparin Sodium 30 MG/0.3 ML SYRINGE SC SCH (08:04)
[2020-07-10] MEDS: methylPREDNISolone Sod Succ 40 MG VIAL IVP SCH (08:04)
[2020-07-10] MEDS: Ferrous Gluconate 324 MG TAB PO SCH ×2 (08:04→20:28)
[2020-07-10] MEDS: Multivitamin W/ Minerals 1 TAB PO SCH (08:04)
[2020-07-10] MEDS: Gabapentin 100 MG CAP PO SCH ×2 (08:05→20:29)
[2020-07-10] MEDS: Magnesium Oxide 400 MG TAB PO SCH (08:05)
[2020-07-10] MEDS: Nystatin Powder 15 GM BOT TOP SCH ×2 (08:05→20:28)
[2020-07-10] MEDS: guaiFENesin ER 600 MG TAB PO SCH ×2 (08:05→20:29)
[2020-07-10] MEDS: Tamsulosin HCl 0.4 MG CAP PO SCH (08:05)
[2020-07-10] MEDS: Fluticasone Propionate Nasal Spray 16 gm Bottle NASAL SCH (08:05)
[2020-07-10] MEDS: Albumin 25% 25 GM/100 ML BOT IVPB SCH ×3 (10:18→20:31)
[2020-07-10] MEDS: Mometasone 200 MCG/Formoterol 5 MCG 120 PUFF INHALER INH SCH ×2 (10:40→18:32)
[2020-07-10 11:25] LABS: Actual Bicarbonate (HCO3a) 22.2 mEq/L (22-28); Base Excess (BEa) -1.7 mEq/L (-2.0 to +3.0); CO2 Tension 34.5 mmHg (35.0-45.0); Calcium, Ionized (arterial) 1.11 mmol/L (1.12-1.30); Carboxyhemoglobin (COHb) 0.6 gm% (0.0-3.0); Hemoglobin (Hb) 9.6 g/dL (14.0-18.0); Potassium - ABG Lab 3.69 mmol/L (3.70-5.30); pH, Arterial 7.43 (7.35-7.45)
[2020-07-10 11:33] LABS: O2 Tension (PaO2), arterial 55.4 mmHg (> 60.0)
[2020-07-10 11:34] LABS: ALV-art Gradient 158.155 mmHg (0-20); Puncture Site RBA
--- NOTE | 2020-07-10 12:13 | PRG ---
DATE OF SERVICE: 07/10/2020 SERVICE: Advanced Heart Failure Cardiology Consulting Service. SUBJECTIVE: Mr. Mart had a good day. He said he is breathing easier. Feels like that he had more energy, and he had a good night sleep. He said that he participated with PT/OT a bit too. As far as I can tell and from the nursing reports, he did not drink excess amount of fluids yesterday. REVIEW OF SYSTEMS: GENERAL: There are no reports of fever, chills, or productive cough. HEENT: There is no change in vision, hearing, or swallowing. However, he does have chronic hard of hearing. PULMONARY: Please see HPI. CARDIAC: There is no palpitations or angina or syncope. GI: There is no nausea, vomiting, or diarrhea. : He has chronic indwelling De catheter. MUSCULOSKELETAL: He still has some back pain from lying. INTEGUMENT: There is no new skin breakdown. NEUROLOGIC: There are no new focal deficits or weaknesses. MEDICATIONS: That will have cardiac effect include: 1. Albuterol/ipratropium nebs q.4 hours. 2. Atorvastatin 20 mg at bedtime. 3. Bumex at 2 mg IV b.i.d. 4. Daptomycin 500 mg every 48 hours. 5. Enoxaparin at 30 mg daily. 6. Magnesium oxide at 400 mg daily. 7. He is now getting Solu-Medrol at 40 mg daily. 8. Toprol-XL 12.5 mg b.i.d. 9. Milrinone currently at 0.375 mcg/kg/minute. 10. Dulera 200/5 mcg combination, two puffs twice a day. 11. He is also getting Zosyn at 2.25 g q.6 hours. 12. Flomax 0.4 mg daily. The telemetry was reviewed. It showed predominantly sinus rhythm, but he does have a wandering pacemaker, but there is no concerning arrhythmia. PHYSICAL EXAMINATION: VITAL SIGNS: His heart rate is between 85 and 90. His systolic blood pressure is between 115 to 140, his diastolic blood pressure between 59 and 65. GENERAL: He is alert and conversational, wearing his BiPAP. HEENT: Show EOMI. NECK: His JVP is about 13 cm. PULMONARY: He has crackles at the left base. However, there is much better air movement this morning. There are no wheezes, so his pulmonary sounds are much improved today. CARDIAC: Irregular rate and rhythm with occasional irregularity. There is 2/6 holosystolic murmur right at the apex, and there is 1/6 holosystolic murmur at the left sternal border. ABDOMEN: Mildly distended, soft, nontender. EXTREMITIES: He still has some pitting edema about his hips, but less so on his thighs; and he has pitting edema at least 1 cm above the feet to about group home between the ankles and the knees. Overall, his pitting edema continued to decrease. His in's and out's recorded was 1905 in and 2400 out, so he is net negative close to half a liter. It was noticed there are some concerns about not over-diuresing him. LABORATORY VALUES: White cell count 12.9, hemoglobin 8.8, platelets 247. It is surprising that he continually had dropped the hemoglobin. His blood chemistry showed sodium of 140, potassium of 4.1, chloride 107, bicarb of 20, BUN has decreased to 72, but his creatinine has increased a bit to 2.68. ASSESSMENT: An 79-year-old gentleman, continued to suffer from multiple problems. His primary problem from admission is septic left hip joint. He also has severe COPD exacerbation. The patient is now currently on Solu-Medrol treatment. He has pulmonary hypertension with right ventriclar dysfunction, likely cor pulmonale; right heart failure; and also left ventricular diastolic dysfunction. With this, it is difficult to treat combination of heart failure. Currently milrinone 0.375 mcg/kg/minute seemed to be sufficient in augmenting his right ventricle to provide enough cardiac output. Hopefully, the trend of BUN trending down is the correct one. Nevertheless, we will try to reduce the amount of diuretics today. There may be some problems with acid-base because his bicarb always seemed to be dipping below the normal range. We will continue to augment his right ventricle and also increase his luistropy-diastolic functions with milrinone, then we will carefully manage his electrolytes and also diuretics. Please see the following for my recommendations. RECOMMENDATIONS: 1. Decrease Bumex to 1 mg IV b.i.d. If necessary, we can convert it to Lasix 80 mg IV once daily, that way to provide sustained diuresis but lower use of diuretics overall. The test dose of 1 mg IV this afternoon will tell us how much he needs tomorrow. 2. Continue milrinone at 0.375 mcg/kg/minute. 3. Please check ABG to see if the patient is acidotic. If he is, then we will have to add sodium bicarb. 4. Please add complete metabolic panel, magnesium, and type and screen to tomorrow's morning lab. 5. Please provide albumin 25 g IV q.6 hours for today, and tomorrow slow down to q.12 hours. This is meant to help pull the interstitial edema out. It has been a pleasure taking care of Mr. Bin Mart. If you have any questions, please give me a call. The total duration of this visit is about 35 minutes. This includes personally performing H and P, reviewing the data, direct patient interaction, and coordinating with various hospital staff. Job ID: [id number] MTDAnn
--- NOTE | 2020-07-10 13:36 | PDOC.HOSPP ---
- Subjective Encounter Date: 07/10/20 Subjective: The patient was able to ambulate with PT. He continues to experience shortness of breath. - Objective Vital Signs & Weight: Vital Signs (12 hours) Temp Pulse Pulse Pulse Resp BP BP 07/10/20 11:30 98.2 F 99 20 07/10/20 10:37 95 20 07/10/20 08:53 107 H 102 H 161/72 H 147/70 H 07/10/20 08:05 07/10/20 07:00 98.0 F 90 07/10/20 04:00 97.9 F 85 07/10/20 02:04 90 17 BP Pulse Ox Pulse Ox Pulse Ox 07/10/20 11:30 138/79 94 L 07/10/20 10:37 07/10/20 08:53 93 L 92 L 07/10/20 08:05 92 L 07/10/20 07:00 148/65 H 93 L 07/10/20 04:00 115/59 L 100 07/10/20 02:04 97 Weight Admit Weight 195 lb Weight 212 lb 14.4 oz Most Recent Monitor Data Heart Rate from ECG 92 NIBP 119/85 NIBP BP-Mean 96 Respiration from ECG 22 SpO2 94 I&O: 07/09/20 07/10/20 07/11/20 06:59 06:59 06:59 Intake Total 3724 1905.2 Output Total 3110 2400 Balance 614 -494.8 Result Diagrams: 07/10/20 04:08 07/10/20 04:08 Hospitalist ROS - Medication Medications: Active Medications Generic Name Dose Route Start Last Admin Trade Name Richardq PRN Reason Stop Dose Admin Acetaminophen 650 mg 06/03/20 16:52 07/09/20 20:11 Tylenol PO 650 mg Q4H PRN Administration Headache/Fever or Pain Albumin Human 25 gm 07/10/20 10:00 07/10/20 10:18 Albumin 25% 25 Gm/100 Ml Bot IVPB 07/10/20 23:00 25 gm Q6H SHORTY Administration Albuterol/Ipratropium 3 ml 06/20/20 18:30 07/10/20 10:37 Duoneb NEB 3 ml [id number] SHORTY Administration Atorvastatin Calcium 20 mg 06/02/20 21:00 07/09/20 20:12 Lipitor PO 20 mg HS SHORTY Administration Cholecalciferol 800 units 06/07/20 09:00 07/10/20 08:04 Vitamin D PO 800 units DAILY SHORTY Administration Diphenhydramine HCl 25 mg 06/03/20 16:52 07/04/20 20:49 Benadryl PO 25 mg Q6H PRN Administration Itching Enoxaparin Sodium 30 mg 06/20/20 09:00 07/10/20 08:04 Lovenox SC 30 mg 0900 SHORTY Administration Ferrous Gluconate 324 mg 06/03/20 21:00 07/10/20 08:04 Fergon PO 324 mg BID SHORTY Administration Fluticasone Propionate 0 gm 06/20/20 09:00 07/10/20 08:05 Flonase Nasal Violet NASAL 2 spr DAILY SHORTY Administration Gabapentin 100 mg 06/02/20 21:00 07/10/20 08:05 Neurontin PO 100 mg BID SHORTY Administration Guaifenesin 600 mg 06/22/20 21:00 07/10/20 08:05 Mucinex PO 600 mg Q12HR SHORTY Administration Hydroxyzine Pamoate 25 mg 06/29/20 08:33 07/03/20 05:52 Vistaril PO 25 mg Q4H PRN Administration Hypersensitivity reaction Milrinone Lactate/Dextrose 20 100 mls @ 11.149 mls/hr 07/06/20 09:15 07/10/20 11:39 mg/ Device IV 100 mls INF SHORTY Administration Protocol 0.375 MCG/KG/MIN Piperacillin Sod/Tazobactam 100 mls @ 200 mls/hr 07/08/20 06:00 07/10/20 11:36 Sod 2.25 gm/ Sodium Chloride IVPB 100 mls Q6HR SHORTY Administration Daptomycin 500 mg/ Sodium 100 mls @ 200 mls/hr 07/09/20 13:00 07/09/20 14:20 Chloride IVPB 100 mls Q48H SHORTY Administration Iron/Minerals/Multivitamins 1 tab 06/04/20 09:00 07/10/20 08:04 Theragran M PO 1 tab DAILY SHORTY Administration Magnesium Oxide 400 mg 06/11/20 09:00 07/10/20 08:05 Magnesium Oxide PO 400 mg DAILY SHORTY Administration Methylprednisolone Sodium Succinate 40 mg 07/10/20 09:00 07/10/20 08:04 Methylprednisolone Sod Succ 40 Mg Vial IVP 40 mg DAILY SHORTY Administration Metoprolol Succinate 12.5 mg 07/05/20 21:00 07/10/20 08:05 Toprol Xl PO 12.5 mg BID SHORTY Administration Mometasone Furoate/Formoterol Fumar 2 puff 07/05/20 18:30 07/10/20 10:40 Dulera 200 Mcg/5 Mcg Inhaler INH 2 puff BID-RT SHORTY Administration Nystatin 0 gm 07/06/20 09:00 07/10/20 08:05 Nystatin Powder 15 Gm Bot TOP 1 applic BID SHORTY Administration Pantoprazole Sodium 40 mg 06/02/20 21:00 07/10/20 08:05 Protonix PO 40 mg BID SHORTY Administration Senna/Docusate Sodium 2 tab 06/03/20 21:00 07/10/20 08:04 Senokot S PO 2 tab BID SHORTY Administration Sodium Chloride 10 ml 06/14/20 13:26 07/08/20 21:38 Flush - Normal Saline IVF 10 ml PRN PRN Administration Saline Flush Tamsulosin HCl 0.4 mg 06/03/20 09:00 07/10/20 08:05 Flomax PO 0.4 mg DAILY SHORTY Administration Zolpidem Tartrate 5 mg 06/03/20 16:52 07/09/20 20:11 Ambien PO 5 mg HSPRN PRN Administration Insomnia - Exam General Appearance: awake alert Neck: supple, no JVD Respiratory: normal chest expansion, no tachypnea Gastrointestinal: soft Neurological: cranial nerve grossly intact, no focal deficits Hosp A/P (1) Acute on chronic diastolic (congestive) heart failure Code(s): I50.33 - ACUTE ON CHRONIC DIASTOLIC (CONGESTIVE) HEART FAILURE Status: Acute (2) Atrial fibrillation Code(s): I48.91 - UNSPECIFIED ATRIAL FIBRILLATION Status: Chronic Qualifiers: (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 Code(s): T84.59XA - INFECT/INFLM REACTION DUE TO OTH INTERNAL JOINT PROSTH, INIT; Z96.649 - PRESENCE OF UNSPECIFIED ARTIFICIAL HIP JOINT Status: Acute (4) BPH (benign prostatic hyperplasia) Code(s): N40.0 - BENIGN PROSTATIC HYPERPLASIA WITHOUT LOWER URINRY TRACT SYMP Status: Chronic Qualifiers: (5) CKD (chronic kidney disease) stage 3, GFR 30-59 ml/min Code(s): N18.3 - CHRONIC KIDNEY DISEASE, STAGE 3 (MODERATE) Status: Chronic (6) HTN (hypertension) Code(s): I10 - ESSENTIAL (PRIMARY) HYPERTENSION Status: Chronic Qualifiers: (7) Red man syndrome Code(s): L27.0 - GEN SKIN ERUPTION DUE TO DRUGS AND MEDS TAKEN INTERNALLY Status: Acute - Plan This is an 79 year old male with past medical history of multiple hip surgeries presenting with left thigh and hip pain Left thigh and hip pain s/p total hip arthroplasty secondary to Morganella m organii infection Acute diastolic heart failure secondary to pulmonary edema Scrotal swelling/edema - from fluid overload NNEKA - likely cardiorenal #Anemia Hypocalcemia - Physical deconditioning Allergic reaction to antibiotics Shortness of breath due to combination of congestive heart failure, and COPD. Continue milrinone drip per Dr. Fowler. On Bumex for diuresis. He is diuresing well and his creatinine has been stable between 2 and 2.5. Continue scheduled nebulizer treatments and start corticosteroids since he is still wheezing. Continue IV antibiotics per ID recommendations until the end of June. Continue PT and OT.
--- NOTE | 2020-07-10 13:36 | PRG ---
DATE OF SERVICE: 07/10/2020 SUBJECTIVE: Patient was seen and examined at bedside and overnight events noted. Patient denies any shortness of breath or chest pain or palpitation. No history of nausea or vomiting or diarrhea or fever or chills or cramps. OBJECTIVE: GENERAL: This is a well-built male, in no apparent distress. VITAL SIGNS: Temperature Heart rate Respiratory rate 20. Blood pressure 138/79. HEENT: Atraumatic, normocephalic. Oral mucosa is moist NECK: Supple. CARDIOVASCULAR: S1, S2 heard. Rate and rhythm regular. RESPIRATORY: Clear to auscultation. GASTROINTESTINAL: Abdomen is soft. MUSCULOSKELETAL: He had 2+ edema. DERMATOLOGIC: No skin rash. NEUROLOGIC: Alert and awake and oriented X3. No focal neurologic deficits. Moving all the extremities. PSYCHIATRIC: Mood and affect normal. LABORATORY DATA: Potassium 4.1, BUN is 72, creatinine is 2.6. ASSESSMENT AND PLAN: 1. Acute kidney injury on chronic kidney disease stage 4, stable creatinine, on diuretics. 2. Cardiorenal syndrome. 3. Edema. 4. Hypertension. 5. Hypokalemia, replace. Overall, renal function staying stable on diuretics. Limit fluid intake and salt sodium intake. Follow the renal function and electrolytes. Job ID: [id number]
--- NOTE | 2020-07-10 16:29 | PRG ---
DATE OF SERVICE: 07/10/2020 SUBJECTIVE: Mr. Mart states that he was able to walk into the hallway today with physical therapy. He walked about fci from his room to the nursing station, at which time he rested, walked the rest of the way to the nursing station, rested, walked half way back to his room and rested before finishing the wheelchair. He denies any sputum, fevers, or chills. PHYSICAL EXAMINATION: VITAL SIGNS: Blood pressure 134/86, heart rate is in the upper 90s to low 100s, respiratory rate 22, saturation 94 on 4 L nasal cannula. GENERAL: He is mildly dyspneic, but not quite as much as he appeared yesterday. He has no adenopathy. LUNGS: Showed diffuse bilateral crackles, but no wheezing. HEART: Regular rate and rhythm. ABDOMEN: Soft and obese. EXTREMITIES: He has 3+ lower extremity edema. LABORATORY DATA: White count today 12,900, down from 22,000 several days ago. Hemoglobin is 8.1. Blood gas today shows pH 7.43, CO2 of 35, PO2 of 55, and bicarbonate 22. This is consistent with acute respiratory alkalosis with hypoxia. Electrolytes include sodium 140, potassium 4.1, chloride 107, CO2 is 20, BUN 72, creatinine 2.7. IMPRESSION: 1. Morganella septicemia secondary to infected hip arthroplasty site. 2. Acute on chronic renal insufficiency. 3. Hypoxia. PLAN: He is improved with ability to walk into the hallways. He is on broad-spectrum antibiotics. I think he would be an excellent candidate for skilled rehab facility to complete his antibiotics and to more aggressively pursue an exercise program. Job ID: [id number]
[2020-07-10] MEDS: Atorvastatin Calcium 20 MG TAB PO SCH (20:29)
[2020-07-10] MEDS: diphenhydrAMINE 25 MG CAP PO PRN (20:51)
[2020-07-11] MEDS: Milrinone Lactate/D5W 20 MG in Premix Bag 1 BAG IV SCH ×2 (03:38→12:30)
[2020-07-11 04:28] LABS: #Lymphocytes 0.6 thou/uL (1.20-3.40); #Monocytes 1.1 thou/uL (0.11-0.59); #Neutrophils 14.6 thou/uL (1.40-6.50); %Basophils 0.2 % (0.0-1.0); %Eosinophils 0.2 % (0.0-10.0); %Lymphocytes 3.4 % (21.0-51.0); %Neutrophils 89.2 % (42.0-75.0); Hemoglobin 7.5 g/dL (14.0-18.0); Mean Corpuscular HGB CONC 30.4 g/dL (32.0-36.0); Mean Corpuscular Hemoglobin 28.2 pg (27.0-31.0); Mean Corpuscular Volume 92.6 fL (78.0-98.0); Mean Platelet Volume 9.7 fL (7.4-10.4); Platelet Count 242 thou/uL (130-400); RBC Distribution Width 19.6 % (11.5-14.5); Red Blood Cell (RBC) Count 2.67 mill/uL (4.70-6.10); White Blood Cell (WBC) Count 16.4 thou/uL (4.8-10.8)
[2020-07-11 04:50] LABS: ALT (SGPT) 22 U/L (8-55); AST (SGOT) 19 U/L (5-34); Albumin 3.5 g/dL (3.4-4.8); Alkaline Phosphatase 100 U/L (40-110); Anion Gap 19 mmol/L (10-20); BUN (Urea Nitrogen) 72 mg/dL (8.4-25.7); Bilirubin, Total 0.5 mg/dL (0.2-1.2); Calc. Creatinine Clearance 29 mL/min (70-130); Calcium 8.3 mg/dL (7.8-10.44); Carbon Dioxide 20 mmol/L (23-31); Chloride 107 mmol/L (98-107); Estimated GFR-MDRD 22; Globulin 2.3 g/dL (2.4-3.5); Glucose 171 mg/dL (83-110); Magnesium 2.3 mg/dL (1.6-2.6); Potassium 3.5 mmol/L (3.5-5.1); Protein, Total 5.8 g/dL (5.8-8.1); Sodium 142 mmol/L (136-145)
[2020-07-11] MEDS: Piperacillin/Tazobactam 2.25 GM in Sodium Chloride 0.9% 100 ML IVPB SCH ×3 (05:11→18:33)
[2020-07-11] MEDS: Bumetanide 1 MG/4 ML VIAL IVP SCH ×2 (05:11→14:28)
[2020-07-11] MEDS: Mometasone 200 MCG/Formoterol 5 MCG 120 PUFF INHALER INH SCH ×2 (06:45→19:37)
[2020-07-11] MEDS: Senokot S 8.6-50 MG TAB PO SCH ×2 (08:56→20:45)
[2020-07-11] MEDS: Albumin 25% 25 GM/100 ML BOT IVPB SCH ×2 (08:56→20:45)
[2020-07-11] MEDS: Gabapentin 100 MG CAP PO SCH ×2 (08:56→20:45)
[2020-07-11] MEDS: Magnesium Oxide 400 MG TAB PO SCH (08:56)
[2020-07-11] MEDS: methylPREDNISolone Sod Succ 40 MG VIAL IVP SCH (08:56)
[2020-07-11] MEDS: Multivitamin W/ Minerals 1 TAB PO SCH (08:57)
[2020-07-11] MEDS: Ferrous Gluconate 324 MG TAB PO SCH ×2 (08:57→20:45)
[2020-07-11] MEDS: Tamsulosin HCl 0.4 MG CAP PO SCH (08:57)
[2020-07-11] MEDS: Cholecalciferol (Vitamin D3) 400 UNITS TAB PO SCH (08:57)
[2020-07-11] MEDS: guaiFENesin ER 600 MG TAB PO SCH ×2 (08:58→20:45)
[2020-07-11] MEDS: Nystatin Powder 15 GM BOT TOP SCH ×2 (08:59→20:45)
[2020-07-11] MEDS: Fluticasone Propionate Nasal Spray 16 gm Bottle NASAL SCH (08:59)
[2020-07-11] MEDS: Enoxaparin Sodium 30 MG/0.3 ML SYRINGE SC SCH (09:00)
--- NOTE | 2020-07-11 09:05 | PRG ---
DATE OF SERVICE: 07/11/2020 SUBJECTIVE: Mr. Chapin breathing is about the same, still difficult. No chest pain. OBJECTIVE: VITAL SIGNS: Blood pressure is 160 systolic and pulse is in the 80s. LUNGS: There is no wheezing. CARDIAC: No new murmur, rub or gallop. ABDOMEN: Soft and nontender. EXTREMITIES: Still [id number] edema. ASSESSMENT: 1. Congestive heart failure, diastolic, refractory. 2. Renal failure. 3. Anemia. PLAN: 1. He is on milrinone. 2. Diuretics. 3. Prognosis is very poor. We will discuss with Dr. Fowler. Job ID: [id number]
[2020-07-11] MEDS: diphenhydrAMINE 25 MG CAP PO PRN ×2 (09:06→20:45)
--- NOTE | 2020-07-11 10:33 | PRG ---
DATE OF SERVICE: 07/11/2020 SUBJECTIVE: Mr. Mart had a variable day. He was quite energetic yesterday. He was able to walk with PT down the [place] to nurse's station twice. This is a significant improvement. However, he got weaker throughout the day. This morning, he became quite short of breath with just getting up and having a bowel movement. This is a significant decrease from yesterday. It was reported that he has a large black tarry bowel movement. Thus he likely to be having significant amount of GI bleeding. REVIEW OF SYSTEMS GENERAL: There is no fever, chills, or productive cough. HEENT: There is no change in vision, hearing, or swallowing. However, he is much hard of hearing. PULMONARY: His usual amount of shortness of breath, did not worsen. CARDIAC: There are no chest pains, palpitations, syncope today reported. GI: Please see HPI. : He has a De catheter. MUSCULOSKELETAL: He is not complaining of back pain this morning. INTEGUMENT: He complains of new erythemas, back rash, which he thinks is because of antibiotics. NEUROLOGIC: There are no new focal deficits or weaknesses. MEDICATIONS: Include 1. Albumin 25 g q.12 hours. 2. Albuterol nebs every 4 hours. 3. Atorvastatin 20 mg at bedtime. 4. Bumex 1 mg IV twice a day. 5. Daptomycin 500 mg daily. 6. Enoxaparin 30 mg subcu daily. 7. Fluticasone nasal spray twice a day. 8. Gabapentin 100 mg twice a day. 9. Multivitamin once daily. 10. Magnesium oxide 400 mg daily. 11. Solu-Medrol 40 mg daily. 12. Toprol-XL 12.5 mg b.i.d. 13. Milrinone currently at 0.375 mcg/kg per minute. 14. Dulera 200 mcg/5 mcg combination twice a day. 15. Protonix 40 mg b.i.d. 16. Zosyn 2.25 mg q.6 hours. 17. Flomax 0.4 mg daily. His telemetry was reviewed. It is predominantly sinus rhythm, but then he has a different morphology for P waves. He has a wandering pacemaker at times. There are some PVCs. PHYSICAL EXAMINATION: VITAL SIGNS: Heart rate 93, blood pressure 141/65. His 24 hour I and O were 2165 in and 2400 out. GENERAL: Starting at Bumex 1 mg b.i.d. was sufficient to keep him at least even at slightly net negative. He himself reports that he believes that his edema is still receding from his body. LABORATORY DATA: CBC shows white cell count 16.4. Hemoglobin is still decreasing, it is at 7.5 today with a platelet at 242. Chemistry shows sodium 142, potassium 3.5, chloride 107, bicarb 20, BUN 72, creatinine 2.76. ASSESSMENT: 79-year-old gentleman suffers from multiple complex problems. The latest is GI bleed. His primary admission diagnosis is left hip septic joint. He has been in a state of anasarca. He does have a right ventricular dysfunction-right ventricular failure, likely cor pulmonale along with left ventricular diastolic dysfunction. Currently, the drop in hemoglobin due to his likely GI bleed is worsening his renal function. Without this being stopped or reversed, there is really not much that we can do from a cardiac perspective. Milrinone seemed to be almost enough. If he needs more augmentation, then dobutamine will need to be added. With a creatinine of 2.68, I am not able to go above milrinone 0.375 mcg/kg/minute. Restoring his hemoglobin to above 8, it will help greatly in terms of perfusing his kidneys and support active diuresis. Right now without that being resolved, everything else just becomes quite difficult. He continues to have significant pulmonary problems with low oxygenation that cannot be attributed to heart failure alone. In fact, his lung problems such as severe COPD and pulmonary hypertension is driving his right heart failure. Please see the following for my recommendations. RECOMMENDATIONS: 1. Transfuse 2 units of blood now. Give second dose of Bumex IV after transfusion of first unit blood. After today start Bumex, start Lasix 60 mg IV daily tomorrow. This is to attempt to decrease the total diuretic but provide longer diuresis time to see if he can do well on that. This is intended to preserve his renal function while provide some level of diuresis. 2. Please hold enoxaparin for now. 3. In place of enoxaparin, use sequential compression devices as DVT prophylaxis. 4. Please consider consulting GI about his GI bleed if anything that can be done. It has been a pleasure taking care of this very complex gentleman. If you have any questions, please give me a call. The total visitation time is 40 minutes. This includes personally performing H and P, reviewing data, coordinating care, and greater than 50% of time was in direct patient interaction. Job ID: [id number] MTDD
--- NOTE | 2020-07-11 10:45 | PRG ---
DATE OF SERVICE: 07/11/2020 SUBJECTIVE: This is an 79-year-old gentleman for CKD. The patient denies any nausea, vomiting, or chest pain. OBJECTIVE: General: The patient is awake and alert. Vital Signs: Afebrile, pulse 75, breathing at 16, blood pressure 163/76. HEENT: Head normocephalic and atraumatic. Eyes intact, no ulcers. Nose intact, no ulcers. Ears intact, no ulcers. Neck: Supple. No JVD. Chest: Symmetrical and clear. Cardiovascular: Shows S1 and S2, no rub, no murmur. Gastrointestinal: Abdomen is soft, bowel sounds positive. Extremities: Show no edema or ulcers. Skin: Shows no rash or petechiae. Musculoskeletal: Shows no joint swelling or stiffness. Genitourinary: Shows no De or CVA tenderness. Neurologic: Motor intact. Cranial nerves intact. LABORATORY DATA: Hemoglobin 7.5. Creatinine 2.7. ASSESSMENT: Chronic kidney disease stage 4, stable. Hypertension, stable. Anemia, recommend transfusion. Medication based on GFR appropriate. Congestive heart failure. Continue diuretics. Job ID: [id number]
[2020-07-11] MEDS: DAPTOmycin 500 MG in Sodium Chloride 0.9% 100 ML IVPB SCH (14:24)
--- NOTE | 2020-07-11 15:10 | PDOC.HOSPP ---
- Subjective Encounter Date: 07/11/20 Subjective: Mr. Blas has been experiencing bloody stools per report. Hemoglobin level is trending down. - Objective Vital Signs & Weight: Vital Signs (12 hours) Temp Pulse Resp BP BP Pulse Ox 07/11/20 14:23 98 20 90 L 07/11/20 10:44 101 H 20 95 07/11/20 07:50 97.7 F 101 H 22 H 163/76 H 93 L 07/11/20 06:48 91 L 07/11/20 06:47 95 16 91 L 07/11/20 06:45 94 20 91 L 07/11/20 03:40 98.7 F 92 20 141/63 H 100 Weight Admit Weight 195 lb Weight 211 lb Most Recent Monitor Data Heart Rate from ECG 92 NIBP 119/85 NIBP BP-Mean 96 Respiration from ECG 22 SpO2 94 I&O: 07/10/20 07/11/20 07/12/20 06:59 06:59 06:59 Intake Total 1905.2 2165 350 Output Total 2400 2400 Balance -494.8 -235 350 Result Diagrams: 07/11/20 03:56 07/11/20 03:56 Hospitalist ROS - Medication Medications: Active Medications Generic Name Dose Route Start Last Admin Trade Name Freq PRN Reason Stop Dose Admin Acetaminophen 650 mg 06/03/20 16:52 07/09/20 20:11 Tylenol PO 650 mg Q4H PRN Administration Headache/Fever or Pain Albumin Human 25 gm 07/11/20 09:00 07/11/20 08:56 Albumin 25% 25 Gm/100 Ml Bot IVPB 07/11/20 21:01 25 gm Q12HR SHORTY Administration Albuterol/Ipratropium 3 ml 06/20/20 18:30 07/11/20 14:23 Duoneb NEB 3 ml [id number] SHORTY Administration Atorvastatin Calcium 20 mg 06/02/20 21:00 07/10/20 20:29 Lipitor PO 20 mg HS SHORTY Administration Bumetanide 1 mg 07/10/20 14:00 07/11/20 14:28 Bumetanide 1 Mg/4 Ml Vial IVP 07/11/20 18:00 1 mg 0600,1400 SHORTY Administration Cholecalciferol 800 units 06/07/20 09:00 07/11/20 08:57 Vitamin D PO 800 units DAILY SHORTY Administration Diphenhydramine HCl 25 mg 06/03/20 16:52 07/11/20 09:06 Benadryl PO 25 mg Q6H PRN Administration Itching Ferrous Gluconate 324 mg 06/03/20 21:00 07/11/20 08:57 Fergon PO 324 mg BID SHORTY Administration Fluticasone Propionate 0 gm 06/20/20 09:00 07/11/20 08:59 Flonase Nasal [place] NASAL 2 spr DAILY SHORTY Administration Gabapentin 100 mg 06/02/20 21:00 07/11/20 08:56 Neurontin PO 100 mg BID SHORTY Administration Guaifenesin 600 mg 06/22/20 21:00 07/11/20 08:58 Mucinex PO 600 mg Q12HR SHORTY Administration Hydroxyzine Pamoate 25 mg 06/29/20 08:33 07/03/20 05:52 Vistaril PO 25 mg Q4H PRN Administration Hypersensitivity reaction Milrinone Lactate/Dextrose 20 100 mls @ 11.149 mls/hr 07/06/20 09:15 07/11/20 12:30 mg/ Device IV 100 mls INF SHORTY Administration Protocol 0.375 MCG/KG/MIN Piperacillin Sod/Tazobactam 100 mls @ 200 mls/hr 07/08/20 06:00 07/11/20 12:29 Sod 2.25 gm/ Sodium Chloride IVPB 100 mls Q6HR SHORTY Administration Daptomycin 500 mg/ Sodium 100 mls @ 200 mls/hr 07/09/20 13:00 07/11/20 14:24 Chloride IVPB 100 mls Q48H SHORTY Administration Iron/Minerals/Multivitamins 1 tab 06/04/20 09:00 07/11/20 08:57 Theragran M PO 1 tab DAILY SHORTY Administration Magnesium Oxide 400 mg 06/11/20 09:00 07/11/20 08:56 Magnesium Oxide PO 400 mg DAILY SHORTY Administration Methylprednisolone Sodium Succinate 40 mg 07/10/20 09:00 07/11/20 08:56 Methylprednisolone Sod Succ 40 Mg Vial IVP 40 mg DAILY SHORTY Administration Metoprolol Succinate 12.5 mg 07/05/20 21:00 07/11/20 08:57 Toprol Xl PO 12.5 mg BID SHORTY Administration Mometasone Furoate/Formoterol Fumar 2 puff 07/05/20 18:30 07/11/20 06:45 Dulera 200 Mcg/5 Mcg Inhaler INH 2 puff BID-RT SHORTY Administration Nystatin 0 gm 07/06/20 09:00 07/11/20 08:59 Nystatin Powder 15 Gm Bot TOP 1 applic BID SHORTY Administration Pantoprazole Sodium 40 mg 06/02/20 21:00 07/11/20 08:57 Protonix PO 40 mg BID SHORTY Administration Senna/Docusate Sodium 2 tab 06/03/20 21:00 07/11/20 08:56 Senokot S PO 2 tab BID SHORTY Administration Sodium Chloride 10 ml 06/14/20 13:26 07/08/20 21:38 Flush - Normal Saline IVF 10 ml PRN PRN Administration Saline Flush Tamsulosin HCl 0.4 mg 06/03/20 09:00 07/11/20 08:57 Flomax PO 0.4 mg DAILY SHORTY Administration Zolpidem Tartrate 5 mg 06/03/20 16:52 07/09/20 20:11 Ambien PO 5 mg HSPRN PRN Administration Insomnia - Exam General Appearance: awake alert Neck: supple, no JVD Heart: RRR, no murmur, no gallops, no rubs Respiratory: normal chest expansion, no tachypnea Gastrointestinal: soft Neurological: cranial nerve grossly intact, no new deficit Hosp A/P (1) Acute on chronic diastolic (congestive) heart failure Code(s): I50.33 - ACUTE ON CHRONIC DIASTOLIC (CONGESTIVE) HEART FAILURE Status: Acute (2) Atrial fibrillation Code(s): I48.91 - UNSPECIFIED ATRIAL FIBRILLATION Status: Chronic Qualifiers: (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 Code(s): T84.59XA - INFECT/INFLM REACTION DUE TO OTH INTERNAL JOINT PROSTH, INIT; Z96.649 - PRESENCE OF UNSPECIFIED ARTIFICIAL HIP JOINT Status: Acute (4) BPH (benign prostatic hyperplasia) Code(s): N40.0 - BENIGN PROSTATIC HYPERPLASIA WITHOUT LOWER URINRY TRACT SYMP Status: Chronic Qualifiers: (5) CKD (chronic kidney disease) stage 3, GFR 30-59 ml/min Code(s): N18.3 - CHRONIC KIDNEY DISEASE, STAGE 3 (MODERATE) Status: Chronic (6) HTN (hypertension) Code(s): I10 - ESSENTIAL (PRIMARY) HYPERTENSION Status: Chronic Qualifiers: (7) Red man syndrome Code(s): L27.0 - GEN SKIN ERUPTION DUE TO DRUGS AND MEDS TAKEN INTERNALLY Status: Acute - Plan This is an 79 year old male with past medical history of multiple hip surgeries presenting with left thigh and hip pain Left thigh and hip pain 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 Continue milrinone drip per Dr. Fowler. On Bumex for diuresis. He is diuresing well and his creatinine has been stable between 2 and 2.5. Continue scheduled nebulizer and corticosteroids. Continue IV antibiotics per ID recommendations until the end of June. Continue PT and OT. Worsening anemia with GI bleeding. Differential diagnosis includes diverticular disease versus AVM that was noted on previous EGD. Heparin on hold. GI consulted. The patient is being transfused a unit of packed RBCs.
[2020-07-11] MEDS ORDERED: GoLYTELY 4,000 ml Bottle PO SCH (16:00)
[2020-07-11] MEDS: Acetaminophen 325 MG TAB PO PRN (20:44)
[2020-07-11] MEDS: Atorvastatin Calcium 20 MG TAB PO SCH (20:45)
--- NOTE | 2020-07-11 21:38 | CON ---
DATE OF CONSULTATION: 07/11/2020 REQUESTING PHYSICIANS: Dr. Andres. REASON FOR CONSULTATION: GI bleeding. HISTORY OF PRESENT ILLNESS: Bin Mart is a very pleasant 79-year-old gentleman with an unfortunate complicated complex medical history. He has been hospitalized here since 06/02/2020 and had been recently admitted before that. He has diastolic heart failure, chronic kidney disease, atrial fibrillation with a Watchman device, and pulmonary hypertension with cor pulmonale. He underwent left hip replacement in January of this year. He has unfortunately had septic left hip, for which he was admitted over one month ago here. He has been receiving antibiotics and also having a lot of issues with optimization of his cardiac status. During this time, he has also been noted to have chronic anemia. This has been worked up in the past with my partner, Dr. Odom. His last colonoscopy in 2017 showed sigmoid diverticulosis and internal hemorrhoids. He had a recent EGD here in April 2020 with a couple of tiny gastric AVMs cauterized at that time, but the endoscopic impression was that this was not likely related to his persistent anemia with requirement of multiple transfusions. At any rate, over the past month since he has been admitted here, he has continued to drop his H and H and has required 8 units total of RBC transfusion. Through all this time, there had not been any report of overt gastrointestinal bleeding. He has been taking iron pills, but then this morning, nursing reports that there was a large bloody bowel movement. This was alternately described as dark black and is maroonish in color. The patient is not having any associated nausea, vomiting, or abdominal pain. Nothing changed hemodynamically. His hemoglobin was 7.5, and he is receiving another 2 units of RBCs today. REVIEW OF SYSTEMS: Full review of systems including constitutional, head, eyes, ears, nose, throat, GI, , cardiovascular, respiratory, musculoskeletal, neurologic systems is negative except as noted in the HPI. 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 FAMILY HISTORY: Noncontributory. SOCIAL HISTORY: He stopped smoking in 2002, stopped drinking alcohol in 2017. No drug use. He has been for almost 59 years. He has good family support. ALLERGIES: ADHESIVE. INPATIENT MEDICATIONS: 1. Tylenol p.r.n. 2. Albumin 25 g IV q.12 hours. 3. DuoNeb. 4. Lipitor. 5. Bumex 1 mg IV q.12 hours. 6. Vitamin D 800 mg daily. 7. Daptomycin 500 mg q.48 hours. 8. Benadryl p.r.n. 9. Ferrous gluconate 324 mg b.i.d. 10. Fluticasone nasal spray. 11. Gabapentin. 12. Mucinex. 13. Theragran M 1 tablet daily. 14. Magnesium oxide 400 mg daily. 15. Solu-Medrol 40 mg IV daily. 16. Metoprolol 12.5 mg b.i.d. 17. Milrinone drip. 18. Dulera inhaler. 19. Pantoprazole 40 mg p.o. b.i.d. 20. Zosyn 2.25 g IV q.6 hours. 21. Senokot 2 tablets b.i.d. 22. Flomax. 23. Ambien. PHYSICAL EXAMINATION: VITAL SIGNS: Temperature 97.7, pulse 98, blood pressure 163/76, and 90% oxygen saturation on 4 L nasal cannula. GENERAL: Chronically ill-appearing 79-year-old man, lying in bed comfortably, in no distress, in good spirits. SKIN: He is pale. No jaundice. Ecchymoses to the upper extremities bilaterally. EYES: No scleral icterus. Extraocular movements intact. ENT: Mucous membranes moist. No oral lesions. LYMPH: No submandibular or supraclavicular lymphadenopathy. THYROID: Nontender to palpation. HEART: Regular tachycardia. LUNGS: Some bibasilar expiratory wheezing. ABDOMEN: Bowel sounds are present. Tympanitic. Nontender to palpation. EXTREMITIES: 2+ bilateral lower extremity edema. NEURO: Cranial nerves 2 through 12 intact bilaterally. No focal deficits. LABORATORY STUDIES: Hemoglobin 7.5, WBC 16.4, and platelets 242. INR 1.2. Sodium 142, potassium 3.5, BUN 72, creatinine 2.76, and glucose 171. Total bilirubin 0.5, alkaline phosphatase 100, AST 19, ALT 22, ferritin 97.8, and albumin 3.5. ASSESSMENT AND PLAN: 1. Acute overt gastrointestinal bleeding. 2. Acute on chronic blood loss anemia. 3. Chronic iron deficiency anemia. 4. History of sigmoid diverticulosis. 5. Diastolic congestive heart failure. 6. Chronic obstructive pulmonary disease. I had a long discussion with the patient and his family about both the chronic anemia and the more acute overt bleeding, which was first noted today. This may represent 2 separate issues or perhaps the same issue. This is a painless episode without any other symptoms and diverticular bleed versus arteriovenous malformation would lead the differential. He just had an EGD a couple of months ago and there was no evidence of peptic ulcer disease, though he did have a tiny gastric arteriovenous malformation. The patient is not a great candidate, but I think acceptable for endoscopic investigation, and that is what he would desire. We are going to plan for diagnostic colonoscopy tomorrow, and if this is normal or unrevealing, would repeat EGD as well. We will discuss the case with Dr. Mancera, who is performing our procedures tomorrow. In the meantime, continue to monitor H and H, transfuse as needed. Thank you for the consultation. Please call anytime with questions or concerns. Job ID: [id number]
[2020-07-12] MEDS: Piperacillin/Tazobactam 2.25 GM in Sodium Chloride 0.9% 100 ML IVPB SCH ×5 (00:15→23:02)
[2020-07-12 04:11] LABS: #Lymphocytes 0.9 thou/uL (1.20-3.40); #Monocytes 1.1 thou/uL (0.11-0.59); #Neutrophils 13.7 thou/uL (1.40-6.50); %Basophils 0.1 % (0.0-1.0); %Eosinophils 0.2 % (0.0-10.0); %Lymphocytes 5.7 % (21.0-51.0); %Monocytes 7.2 % (0.0-10.0); %Neutrophils 86.9 % (42.0-75.0); Hemoglobin 8.9 g/dL (14.0-18.0); Mean Corpuscular Hemoglobin 28.6 pg (27.0-31.0); Mean Corpuscular Volume 92.4 fL (78.0-98.0); Mean Platelet Volume 9.7 fL (7.4-10.4); Platelet Count 222 thou/uL (130-400); Red Blood Cell (RBC) Count 3.11 mill/uL (4.70-6.10); White Blood Cell (WBC) Count 15.8 thou/uL (4.8-10.8)
[2020-07-12 04:29] LABS: Anion Gap 19 mmol/L (10-20); BUN (Urea Nitrogen) 63 mg/dL (8.4-25.7); Calc. Creatinine Clearance 31 mL/min (70-130); Calcium 8.4 mg/dL (7.8-10.44); Carbon Dioxide 20 mmol/L (23-31); Chloride 108 mmol/L (98-107); Estimated GFR-MDRD 24; Glucose 119 mg/dL (83-110); Potassium 3.9 mmol/L (3.5-5.1); Sodium 143 mmol/L (136-145)
[2020-07-12] MEDS: Mometasone 200 MCG/Formoterol 5 MCG 120 PUFF INHALER INH SCH ×2 (06:47→18:48)
[2020-07-12] MEDS: Milrinone Lactate/D5W 20 MG in Premix Bag 1 BAG IV SCH ×2 (08:00→16:22)
[2020-07-12] MEDS ORDERED: Ketamine 50 MG/ML (10ML VIAL) ONE (10:21)
[2020-07-12] MEDS ORDERED: Midazolam HCl 2 mg/2 ml Vial ONE (10:22)
--- NOTE | 2020-07-12 11:48 | PRG ---
DATE OF SERVICE: 07/12/2020 SUBJECTIVE: An 79-year-old gentleman being seen for acute kidney injury. The patient denies nausea, vomiting, or chest pain. OBJECTIVE: GENERAL: The patient is awake, alert. VITAL SIGNS: Afebrile. Pulse 93, breathing 16, blood pressure 128/81. HEENT: Head normocephalic and atraumatic. Eyes intact, no ulcers. Nose intact, no ulcers. Ears intact, no ulcers. NECK: Supple. No JVD. CHEST: Symmetrical and clear. CARDIOVASCULAR: Shows S1 and S2, no rub, no murmur. GASTROINTESTINAL: Abdomen is soft, bowel sounds positive. EXTREMITIES: Show no edema or ulcers. SKIN: Shows no rash or petechiae. MUSCULOSKELETAL: Shows no joint swelling or stiffness. GENITOURINARY: Shows no De or CVA tenderness. NEUROLOGIC: Motor intact. Cranial nerves intact. LABORATORY DATA: Labs showed creatinine is 2.5. Hemoglobin is 8.9. ASSESSMENT AND PLAN: 1. Chronic kidney disease, stage 4, stable. 2. Acute kidney injury, stable. 3. Hypertension, stable. 4. Anemia, stable. 5. Congestive heart failure, stable. 6. Medication based on GFR appropriate. No indication for dialysis. The patient can follow up in the [facility]. Job ID: [id number]
--- NOTE | 2020-07-12 12:15 | PRG ---
DATE OF SERVICE: 07/12/2020 SUBJECTIVE: Mr. Bin Mart had a variable day. He has some blood in his stool. He has a dark tarry stool. His hemoglobin dropped. He received 2 units of blood transfusion during the day. GI was consulted. They agreed that endoscopy is needed. They started him on a bowel prep yesterday. He received 4 L of GoLYTELY. He said that it was difficult, but he took all 4 L of GoLYTELY in the last 12 hours or so. He stayed up most of the night for it, so he is very tired this morning. Throughout the process, he was not able to walk much at all. REVIEW OF SYSTEMS: GENERAL: He is fatigued, wants to go to sleep. There is no fever, chills, or productive cough. HEENT: There is no change in vision, hearing, or swallowing. However, he has long-term hard of hearing. PULMONARY: He has usual amount of shortness of breath and he is on BiPAP this morning. CARDIAC: There are no complaints of palpitation or chest pains. GI: There is no nausea or vomiting, please see HPI for dark tarry stools and blood. : He has a De catheter. MUSCULOSKELETAL: He has back pain, but does not complain about it this morning. INTEGUMENT: He did have some erythema, itching, but he is not complaining of that this morning. NEUROLOGIC: There are no focal deficits or weaknesses. MEDICATIONS: His medications that have cardiac effect this morning include, 1. Albuterol and ipratropium nebs q.4 hours. 2. Atorvastatin 20 mg at bedtime. 3. Daptomycin every other day. 4. Furosemide now 60 mg IV daily. 5. Gabapentin 100 mg b.i.d. 6. Magnesium oxide 400 mg daily. 7. Solu-Medrol 40 mg IV daily. 8. Toprol-XL 12.5 mg twice a day. 9. Dulera 200 mcg/5 mcg combination two puffs twice a day. 10. Protonix 40 mg b.i.d. 11. Zosyn 2.25 g IV q.6 hours. 12. Flomax 0.4 mg daily. His telemetry was reviewed. He has a variety of rhythm. It is mainly sinus rhythm; however, there are different P wave morphologies at different rates to show that sometimes there is a wandering pacemaker. There are PACs, PVC. At noon yesterday, he did have a 5-beat run of wide-complex tachycardia, but that was brief. There was no recurrence. PHYSICAL EXAMINATION: VITAL SIGNS: Heart rate 93 and blood pressure 128/81. GENERAL: He is sleepy and he is sleeping with BiPAP, but easily arousable. HEENT: Show EOMI with oropharynx with moist mucosa. NECK: His JVP is elevated, it is about 13 cm. PULMONARY: There are decreased breath sounds that are chronic for him. There are slight left basilar crackles. CARDIAC: Mostly regular rhythm, but there are occasional irregularities. There is 2/6 holosystolic murmur at the left sternal border and also near the apex. ABDOMEN: Mildly distended with a large amount of bowel sounds. EXTREMITIES: Lower extremity, he has greater than 1 cm pitting edema from his feet all the way to hip. I do not think there is much change in his edema since yesterday. LABORATORY DATA: His laboratory values this morning are white cell count 13.8, hemoglobin 9.8, platelet 222. His chemistries are sodium 143, potassium 3.9, chloride 108, bicarb is 20, BUN has decreased down to 63, creatinine has decreased down to 2.5 today and has a glucose of 119. His magnesium value was not done this morning. ASSESSMENT: 79-year-old gentleman has a complex difficult issues. He was originally admitted for left hip joint infection. Had undergone 4 surgical procedures for his hip and is on antibiotic treatment for his left hip infection. He currently has a gastrointestinal bleed, requiring 4 units of blood within the last five days. He is being prepped for endoscopy today. Due to the gastrointestinal bleed and need for transfusion, there is not much movement on fluid removal. However, milrinone at 0.375 mcg/kg/min seemed to be providing sufficient blood flow. His BUN has decreased down to 63, creatinine decreased down to 2.58. As long as there was sufficient amount of hemoglobin, advised milrinone at 0.375 mcg/kg/min is sufficient. We will have to wait until the endoscopy is completed and his gastrointestinal bleed somewhat resolved before we can begin more aggressive diuresis. Please see the following for my recommendations. RECOMMENDATIONS: 1. Continue milrinone at 0.375 mcg/kg/min. 2. Continue with furosemide 60 mg IV one dose in the morning. We will follow the results. Depending on his urine output and overall status, we can increase that to twice a day. 3. Please add magnesium to the daily labs, this will help in the management of arrhythmia. 4. We will await the result of the endoscopy to plan our next set of actions. 5. Please keep type and screen active. I suspect he may need more transfusions in the near future. It has been a pleasure taking care of Mr. Mart. If you have any questions, please give me a call. This visit took about 35 minutes. This includes personally performing H and P, reviewing data, coordinating with other providers and direct patient interaction. Job ID: [id number] MTDD
[2020-07-12] MEDS: Magnesium Oxide 400 MG TAB PO SCH (13:10)
[2020-07-12] MEDS: Furosemide 100 MG/10 ML VIAL IVPB SCH (13:10)
[2020-07-12] MEDS: methylPREDNISolone Sod Succ 40 MG VIAL IVP SCH (13:10)
[2020-07-12] MEDS: Multivitamin W/ Minerals 1 TAB PO SCH (13:11)
[2020-07-12] MEDS: Tamsulosin HCl 0.4 MG CAP PO SCH (13:11)
[2020-07-12] MEDS: Gabapentin 100 MG CAP PO SCH ×2 (13:11→22:18)
[2020-07-12] MEDS: Ferrous Gluconate 324 MG TAB PO SCH ×2 (13:11→22:16)
[2020-07-12] MEDS: Cholecalciferol (Vitamin D3) 400 UNITS TAB PO SCH (13:11)
[2020-07-12] MEDS: guaiFENesin ER 600 MG TAB PO SCH ×2 (13:12→22:17)
[2020-07-12] MEDS: Nystatin Powder 15 GM BOT TOP SCH ×2 (13:12→22:19)
[2020-07-12] MEDS: Fluticasone Propionate Nasal Spray 16 gm Bottle NASAL SCH (13:13)
[2020-07-12] MEDS: Senokot S 8.6-50 MG TAB PO SCH (13:13)
--- NOTE | 2020-07-12 13:30 | PDOC.HOSPP ---
- Subjective Encounter Date: 07/12/20 Subjective: The patient was able to tolerate the bowel prep overnight. - Objective Vital Signs & Weight: Vital Signs (12 hours) Temp Pulse Resp BP Pulse Ox 07/12/20 08:00 97.2 F L 93 16 128/81 96 07/12/20 06:52 92 97 07/12/20 06:51 92 12 97 07/12/20 06:47 92 12 97 07/12/20 05:20 97.6 F 89 14 152/81 H 96 07/12/20 02:11 116 H 98 07/12/20 02:10 116 H 22 H 97 Weight Admit Weight 195 lb Weight 214 lb 9.6 oz Most Recent Monitor Data Heart Rate from ECG 92 NIBP 119/85 NIBP BP-Mean 96 Respiration from ECG 22 SpO2 94 I&O: 07/11/20 07/12/20 07/13/20 06:59 06:59 06:59 Intake Total 2165 5060 Output Total 2400 1600 Balance -235 3460 Result Diagrams: 07/12/20 03:52 07/12/20 03:52 Hospitalist ROS - Medication Medications: Active Medications Generic Name Dose Route Start Last Admin Trade Name Freq PRN Reason Stop Dose Admin Acetaminophen 650 mg 06/03/20 16:52 07/11/20 20:44 Tylenol PO 650 mg Q4H PRN Administration Headache/Fever or Pain Albuterol/Ipratropium 3 ml 06/20/20 18:30 07/12/20 10:27 Duoneb NEB Not Given [id number] SHORTY Atorvastatin Calcium 20 mg 06/02/20 21:00 07/11/20 20:45 Lipitor PO 20 mg HS SHORTY Administration Cholecalciferol 800 units 06/07/20 09:00 07/12/20 13:11 Vitamin D PO 800 units DAILY SHORTY Administration Diphenhydramine HCl 25 mg 06/03/20 16:52 07/11/20 20:45 Benadryl PO 25 mg Q6H PRN Administration Itching Ferrous Gluconate 324 mg 06/03/20 21:00 07/12/20 13:11 Fergon PO 324 mg BID SHORTY Administration Fluticasone Propionate 0 gm 06/20/20 09:00 07/12/20 13:13 Flonase Nasal [place] NASAL 2 spr DAILY SHORTY Administration Furosemide 60 mg 07/12/20 09:00 07/12/20 13:10 Furosemide 100 Mg/10 Ml Vial IVPB 60 mg QAM SHORTY Administration Gabapentin 100 mg 06/02/20 21:00 07/12/20 13:11 Neurontin PO 100 mg BID SHORTY Administration Guaifenesin 600 mg 06/22/20 21:00 07/12/20 13:12 Mucinex PO 600 mg Q12HR SHORTY Administration Hydroxyzine Pamoate 25 mg 06/29/20 08:33 07/03/20 05:52 Vistaril PO 25 mg Q4H PRN Administration Hypersensitivity reaction Milrinone Lactate/Dextrose 20 100 mls @ 11.149 mls/hr 07/06/20 09:15 07/11/20 12:30 mg/ Device IV 100 mls INF SHORTY Administration Protocol 0.375 MCG/KG/MIN Piperacillin Sod/Tazobactam 100 mls @ 200 mls/hr 07/08/20 06:00 07/12/20 13:10 Sod 2.25 gm/ Sodium Chloride IVPB 100 mls Q6HR SHORTY Administration Daptomycin 500 mg/ Sodium 100 mls @ 200 mls/hr 07/09/20 13:00 07/11/20 14:24 Chloride IVPB 100 mls Q48H SHORTY Administration Iron/Minerals/Multivitamins 1 tab 06/04/20 09:00 07/12/20 13:11 Theragran M PO 1 tab DAILY SHORTY Administration Magnesium Oxide 400 mg 06/11/20 09:00 07/12/20 13:10 Magnesium Oxide PO 400 mg DAILY SHORTY Administration Methylprednisolone Sodium Succinate 40 mg 07/10/20 09:00 07/12/20 13:10 Methylprednisolone Sod Succ 40 Mg Vial IVP 40 mg DAILY SHORTY Administration Metoprolol Succinate 12.5 mg 07/05/20 21:00 07/12/20 13:10 Toprol Xl PO 12.5 mg BID SHORTY Administration Mometasone Furoate/Formoterol Fumar 2 puff 07/05/20 18:30 07/12/20 06:47 Dulera 200 Mcg/5 Mcg Inhaler INH 2 puff BID-RT SHORTY Administration Nystatin 0 gm 07/06/20 09:00 07/12/20 13:12 Nystatin Powder 15 Gm Bot TOP 1 applic BID SHORTY Administration Pantoprazole Sodium 40 mg 06/02/20 21:00 07/12/20 13:12 Protonix PO 40 mg BID SHORTY Administration Senna/Docusate Sodium 2 tab 06/03/20 21:00 07/12/20 13:13 Senokot S PO Not Given BID SHORTY Sodium Chloride 10 ml 06/14/20 13:26 07/08/20 21:38 Flush - Normal Saline IVF 10 ml PRN PRN Administration Saline Flush Tamsulosin HCl 0.4 mg 06/03/20 09:00 07/12/20 13:11 Flomax PO 0.4 mg DAILY SHORTY Administration Zolpidem Tartrate 5 mg 06/03/20 16:52 07/09/20 20:11 Ambien PO 5 mg HSPRN PRN Administration Insomnia - Exam General Appearance: awake alert Neck: supple, no JVD Respiratory: normal chest expansion, no tachypnea Neurological: cranial nerve grossly intact Psychiatric: A&O x 3 Hosp A/P (1) Acute on chronic diastolic (congestive) heart failure Code(s): I50.33 - ACUTE ON CHRONIC DIASTOLIC (CONGESTIVE) HEART FAILURE Status: Acute (2) Atrial fibrillation Code(s): I48.91 - UNSPECIFIED ATRIAL FIBRILLATION Status: Chronic Qualifiers: (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 Code(s): T84.59XA - INFECT/INFLM REACTION DUE TO OTH INTERNAL JOINT PROSTH, INIT; Z96.649 - PRESENCE OF UNSPECIFIED ARTIFICIAL HIP JOINT Status: Acute (4) BPH (benign prostatic hyperplasia) Code(s): N40.0 - BENIGN PROSTATIC HYPERPLASIA WITHOUT LOWER URINRY TRACT SYMP Status: Chronic Qualifiers: (5) CKD (chronic kidney disease) stage 3, GFR 30-59 ml/min Code(s): N18.3 - CHRONIC KIDNEY DISEASE, STAGE 3 (MODERATE) Status: Chronic (6) HTN (hypertension) Code(s): I10 - ESSENTIAL (PRIMARY) HYPERTENSION Status: Chronic Qualifiers: (7) Red man syndrome Code(s): L27.0 - GEN SKIN ERUPTION DUE TO DRUGS AND MEDS TAKEN INTERNALLY Status: Acute - Plan This is an 79 year old male with past medical history of multiple hip surgeries presenting with left thigh and hip pain Left thigh and hip pain 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 Continue milrinone drip per Dr. Fowler. He is diuresing well and his creatinine has been stable between 2 and 2.5. Continue scheduled nebulizer and corticosteroids. Continue IV antibiotics per ID recommendations until the end of June. Continue PT and OT. Anemia improved with transfusion. Plan for colonoscopy plus or minus EGD today.
[2020-07-12] MEDS ORDERED: PHENYLEPHRINE-NS 100 MCG/ML 10 ML SYRINGE ONE (14:11)
[2020-07-12] MEDS ORDERED: PROPOFOL 200 MG/20 ML VIAL ONE (14:11)
--- NOTE | 2020-07-12 17:00 | OP ---
DATE OF PROCEDURE: 07/12/2020 PROCEDURES PERFORMED: EGD with biopsy, colonoscopy (diagnostic). INDICATIONS FOR PROCEDURE: Anemia, melena, history of gastric AVMs. DESCRIPTION OF PROCEDURE: After the risks and benefits of the procedures were explained to the patient including the risks of bleeding, infection, perforation, reactions to anesthesia, aspiration, and/or pain, informed consent was obtained. The patient was then taken to the endoscopy suite, where he was maneuvered into the left lateral decubitus position, followed by introduction of deep sedation via propofol and anesthesia support. Once adequate sedation was achieved, the standard gastroscope was introduced into the mouth with intubation of the esophagus, stomach, and the proximal small intestines with the findings listed below. Upon conclusion of this portion of the procedure, all equipment was removed from the patient and the bed was rotated 180 degrees in anticipation of the colonoscopy. After a digital rectal examination was performed, the standard colonoscope was introduced to the rectum and advanced to the terminal ileum without difficulty. The quality of the prep was fair to poor with a large amount of retained semi-solid and solid stool seen in the cecum, ascending, transverse, and proximal descending colons; however, adequate visualization of the colonic mucosa was achieved with aggressive irrigation and suctioning for the evaluation of gross/bleeding lesions (lesions less than 5 mm in size could have been missed). The patient tolerated the procedure well with no immediate perioperative complications. Upon conclusion of the procedure, all equipment was removed from the patient and he was transferred to PACU in satisfactory condition. EGD FINDINGS: Esophagus, small white plaques measuring 1 to 2 mm in diameter were seen in the proximal esophagus, that were not easily removed with irrigation. Given the higher likelihood of Coty esophagitis, multiple biopsies were obtained and placed in a specimen jar for further evaluation. Normal-appearing mucosa was then seen in the mid and distal esophagus. There was no evidence of erosions, ulcerations, mass lesions, or active/recent bleeding. Stomach, normal-appearing mucosa was seen in the gastric cardia, fundus, and proximal body. Three purple colored spots were seen in the distal gastric body, that may have been indicative of submucosal vessels and possible source of bleeding. All three of these purple spots were then intervened upon with bipolar cauterization with good hemostasis achieved. Otherwise, normal-appearing mucosa was also seen at the antrum and incisura. Duodenum, normal-appearing mucosa was also seen in the duodenal bulb and second portion of the duodenum. There was no evidence of erosions, ulcerations, mass lesions, or active/recent bleeding. Mild edema was noted within the pyloric channel itself, but no associated ulcers were seen in this region. IMPRESSION: 1. Three submucosal purple spots concerning for arteriovenous malformation/underlying vessel, now status post bipolar cauterization. 2. 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 3. Mild erythema and edema seen at the pylorus and pyloric channel, but no associated ulcerations or other abnormalities. 4. No active or recent bleeding was seen during this examination today. COLONOSCOPY: Digital rectal exam, normal findings were seen on external examination with internal hemorrhoids palpated on digital rectal exam. COLON FINDINGS: Normal-appearing mucosa was seen within the terminal ileum. However, a large amount of retained semi-solid and liquid stool was seen in the cecum, ascending, transverse, and proximal descending colons, that limited visualization of the colonic mucosa. A large amount of sterile water was used for irrigation and suctioning with only conversion of a poor prep to a fair prep with lesions less than 5 mm in size possibly being missed of the mucosa seen. Normal-appearing mucosa was seen at the appendiceal orifice as well as at the ileocecal valve. Normal-appearing mucosa was then seen in the cecum and ascending colons. A 7 to 8 mm sessile polyp was seen in the mid transverse colon, but not intervened upon due to increased risk of bleeding with maneuver. Scattered small diverticula were seen in the middle and distal descending colons in addition to the sigmoid colon with careful inspection, not showing any peridiverticular erythema, purulence, or evidence of active or recent bleeding. A 3- to 4-mm polyp was also seen in the descending colon, but not intervened upon due to increased risk of bleeding. Normal findings were seen within the rectum with large nonbleeding internal hemorrhoids seen on rectal retroflexion. IMPRESSION: 1. Fair to poor colonic preparation with a large amount of semi-solid and liquid stool seen primarily in the right colon. 2. A 7 to 8 mm transverse colon polyp, not intervened upon during examination today. 3. A 3 to 4 mm descending colon polyp, not intervened upon during the examination today. 4. [id number] left-sided diverticulosis without any evidence of active or recent bleeding. 5. Large (grade 2/3) internal hemorrhoids. No evidence for the patient's melena or bleeding was seen during the examination today. RECOMMENDATIONS: 1. Would continue to trend his H and H and transfuse as necessary to maintain an H and H of 7/. 2. Continue to monitor clinically for signs of active GI bleeding. 3. Would continue to hold anticoagulation for the next 24 to [address] will place the patient on a full liquid diet and advance as tolerated. 5. 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 6. Would continue pantoprazole 40 mg b.i.d. in light of recent cauterization today. 7. Would recommend a repeat colonoscopy within 6 to 12 months for re-evaluation of the colon and removal of the colonic polyps at that time. We will continue to follow. Please call with any questions. Job ID: [id number]
[2020-07-12] MEDS: Atorvastatin Calcium 20 MG TAB PO SCH (22:15)
[2020-07-12] MEDS ORDERED: traMADol HCl 50 MG TAB PO SCH (22:45)
[2020-07-13] MEDS: Senokot S 8.6-50 MG TAB PO SCH ×3 (00:58→21:27)
[2020-07-13 04:32] LABS: #Lymphocytes 0.5 thou/uL (1.20-3.40); #Monocytes 0.9 thou/uL (0.11-0.59); #Neutrophils 12.7 thou/uL (1.40-6.50); %Basophils 0.2 % (0.0-1.0); %Eosinophils 0.2 % (0.0-10.0); %Lymphocytes 3.2 % (21.0-51.0); %Monocytes 6.6 % (0.0-10.0); %Neutrophils 89.8 % (42.0-75.0); Hemoglobin 9.8 g/dL (14.0-18.0); Mean Corpuscular HGB CONC 31.4 g/dL (32.0-36.0); Mean Corpuscular Hemoglobin 28.7 pg (27.0-31.0); Mean Corpuscular Volume 91.5 fL (78.0-98.0); Mean Platelet Volume 9.7 fL (7.4-10.4); Platelet Count 215 thou/uL (130-400); RBC Distribution Width 19.1 % (11.5-14.5); Red Blood Cell (RBC) Count 3.42 mill/uL (4.70-6.10); White Blood Cell (WBC) Count 14.2 thou/uL (4.8-10.8)
[2020-07-13 04:42] LABS: Anion Gap 19 mmol/L (10-20); BUN (Urea Nitrogen) 60 mg/dL (8.4-25.7); Calc. Creatinine Clearance 31 mL/min (70-130); Calcium 8.5 mg/dL (7.8-10.44); Carbon Dioxide 21 mmol/L (23-31); Chloride 107 mmol/L (98-107); Estimated GFR-MDRD 24; Glucose 160 mg/dL (83-110); Potassium 3.7 mmol/L (3.5-5.1); Sodium 143 mmol/L (136-145)
[2020-07-13] MEDS: Mometasone 200 MCG/Formoterol 5 MCG 120 PUFF INHALER INH SCH ×2 (06:48→18:11)
[2020-07-13] MEDS: Piperacillin/Tazobactam 2.25 GM in Sodium Chloride 0.9% 100 ML IVPB SCH ×4 (07:16→23:39)
--- NOTE | 2020-07-13 08:58 | PRG ---
DATE OF SERVICE: 07/13/2020 SUBJECTIVE: Mr. Mart had a good day. He was able to go on to EGD and colonoscopy without any difficulty. He said he felt like his abdominal bloating has decreased. He is breathing easier. He has more energy level today. Generally, he feels like he is overall better today. REVIEW OF SYSTEMS: GENERAL: There is no fever, chills, or productive cough. HEENT: There is no change in vision, hearing, or swallowing. PULMONARY: He is less short of breath today. CARDIAC: There is no palpitation, chest pain. GI: There is no nausea or vomiting or diarrhea today. There is no report of bloody or dark stool. : He has a De catheter in. MUSCULOSKELETAL: He is not complaining of back or joint pain today. INTEGUMENT: There are no new complaints today. NEUROLOGIC: There are no complaints of new focal deficits or weaknesses. MEDICATION: His medications that have cardiac effect include 1. Albuterol ipratropium nebs every 4 hours. 2. Atorvastatin 20 mg at bedtime. 3. Daptomycin every 48 hours. 4. Furosemide 60 mg IV once daily. 5. Gabapentin 100 mg twice a day. 6. Magnesium oxide 400 mg daily. 7. Solu-Medrol 40 mg IV daily. 8. Toprol-XL 12.5 mg b.i.d. 9. Milrinone 0.375 mcg/kg/minute. 10. Dulera 200 mcg/5 mcg combination two puffs twice a day. 11. Zosyn at 2.25 g q.6 hours. 12. Flomax 0.4 mg daily. The telemetry was reviewed. He is remaining in sinus rhythm. He has different morphologies of P wave at different times. He has a wandering pacemaker, there is also some PVC. For the last 24 hours, there are no concerning wide-complex tachycardia. PHYSICAL EXAMINATION: VITAL SIGNS: Heart rate 97, blood pressure 152/79, but when I was in the room it is more like 141/77. GENERAL: He is alert and conversational, breathing on a nasal cannula. He is talkative today. HEENT: EOMI. Oropharynx is benign with moist mucosa. NECK: JVP is between 12 to 13 cm. PULMONARY: There is better air movement today. Distant breath sounds, but the wheezes are now gone. CARDIAC: Mostly regular rate and rhythm with occasional irregularity. There is 2/6 holosystolic murmur near the apex. He still has pitting edema around the hip that is less so. ABDOMEN: Soft, nontender. Positive bowel sounds. EXTREMITIES: He has about 1 cm pitting edema of the feet up to about longterm up towards knees. LABORATORY DATA: His CBC shows white cell count 14.2, hemoglobin 9.8, and platelet is at 21.5. His chemistry showed that sodium 143, potassium 3.7, chloride 107, bicarb is 21, BUN 60, and creatinine is 2.63. ASSESSMENT: 79-year-old gentleman who suffers from multitude of problems. His main admission reason with the left hip septic joint, which underwent surgery. He is on antibiotics for that. He has severe chronic obstructive pulmonary disease exacerbation, currently on steroid treatment. He also has GI bleeding. The EGD showed that he has three spots in his gastric mucosa within the stomach. That was cauterized yesterday. The colonoscopy did not reveal any bleeding source. However, there were multiple colonic polyps left behind. 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 This has been cauterized. He has combination of right ventricular dysfunction-cor pulmonale and also left ventricular diastolic dysfunction. He also has pulmonary hypertension. Currently, milrinone 0.375 mcg/kg is sufficient for now. Milrinone really cannot titrate this up anymore because of his poor renal function. He seemed to be more hypertensive in the last 24 hours. I will add on hydralazine to provide some afterload relief. Today with his EGD and colonoscopy done, it will be a good day to assess how his urine output will be. He had a urine output of 850 mL overnight without diuretics, so this is a good sign. Please see the following paragraph for my recommendations. RECOMMENDATION: 1. Continue milrinone at 0.375 mcg/kg/minute. 2. We will see how he responds to furosemide 60 mg IV. This will help to set his diuretic regimen over the next several days. 3. Add hydralazine 10 mg p.o. q.8 hours. This is to provide care for afterload reduction. Hopefully, this will increase cardiac output. 4. We will follow his hemoglobin and hematocrit. Due to his renal condition and heart failure, we need to transfuse and keep his hemoglobin above 8. For now, he is more than adequate. Hopefully, he will not bleed. It has been a pleasure taking care of Mr. Mart. If you have questions, please give me a call. The total visitation time is about 35 minutes. This includes personally performing history and physical, reviewing data, coordinating care, and direct patient interaction. Job ID: [id number] MTDD
--- NOTE | 2020-07-13 09:25 | PRG ---
DATE OF SERVICE: 07/13/2020 SUBJECTIVE: An 79-year-old gentleman being seen for acute kidney injury. The patient denies any nausea, vomiting, or chest pain. OBJECTIVE: General: The patient is awake and alert. Vital Signs: Afebrile, pulse 75, breathing at 16, blood pressure 146/82. HEENT: Head normocephalic and atraumatic. Eyes intact, no ulcers. Nose intact, no ulcers. Ears intact, no ulcers. Neck: Supple. No JVD. Chest: Symmetrical and clear. Cardiovascular: Shows S1 and S2, no rub, no murmur. Gastrointestinal: Abdomen is soft, bowel sounds positive. Extremities: Show no edema or ulcers. Skin: Shows no rash or petechiae. Musculoskeletal: Shows no joint swelling or stiffness. Genitourinary: Shows no De or CVA tenderness. Neurologic: Motor intact. Cranial nerves intact. LABORATORY DATA: Hemoglobin 9.8. Creatinine 2.6. ASSESSMENT AND PLAN: 1. Chronic kidney disease, stage 4, stable. 2. Hypertension, stable. 3. Anemia, stable. Medication based on GFR appropriate. Congestive heart failure. Continue diuresis. I will sign off on this patient. Please reconsult as needed. Job ID: [id number]
[2020-07-13] MEDS: guaiFENesin ER 600 MG TAB PO SCH ×2 (09:57→20:46)
[2020-07-13] MEDS: Tamsulosin HCl 0.4 MG CAP PO SCH (09:57)
[2020-07-13] MEDS: Magnesium Oxide 400 MG TAB PO SCH (09:57)
[2020-07-13] MEDS: Gabapentin 100 MG CAP PO SCH ×2 (09:58→20:46)
[2020-07-13] MEDS: Cholecalciferol (Vitamin D3) 400 UNITS TAB PO SCH (09:58)
[2020-07-13] MEDS: Ferrous Gluconate 324 MG TAB PO SCH ×2 (09:59→20:49)
[2020-07-13] MEDS: Multivitamin W/ Minerals 1 TAB PO SCH (09:59)
[2020-07-13] MEDS: methylPREDNISolone Sod Succ 40 MG VIAL IVP SCH (10:02)
[2020-07-13] MEDS: Fluticasone Propionate Nasal Spray 16 gm Bottle NASAL SCH (10:07)
[2020-07-13] MEDS: Furosemide 100 MG/10 ML VIAL IVPB SCH (10:07)
[2020-07-13] MEDS: Milrinone Lactate/D5W 20 MG in Premix Bag 1 BAG IV SCH ×2 (12:00→23:40)
[2020-07-13] MEDS: Nystatin Powder 15 GM BOT TOP SCH ×2 (12:35→20:49)
[2020-07-13] MEDS: DAPTOmycin 500 MG in Sodium Chloride 0.9% 100 ML IVPB SCH (14:22)
[2020-07-13] MEDS: hydrALAZINE 10 MG TAB PO SCH ×2 (14:22→20:46)
--- NOTE | 2020-07-13 14:49 | PDOC.HOSPP ---
- Subjective Encounter Date: 07/13/20 Subjective: Mr. Key underwent EGD and colonoscopy yesterday. He was able to ambulate with physical therapy today. Peripheral edema still present. Based on my examination, this appears to be worse than when I saw him a week ago. - Objective Vital Signs & Weight: Vital Signs (12 hours) Temp Pulse Pulse Pulse Resp BP BP 07/13/20 14:22 95 07/13/20 14:18 95 18 07/13/20 10:35 92 16 07/13/20 09:01 98 95 143/78 H 151/84 H 07/13/20 08:00 97.2 F L 94 16 07/13/20 06:45 92 20 07/13/20 03:04 97 22 H BP Pulse Ox Pulse Ox Pulse Ox 07/13/20 14:22 07/13/20 14:18 07/13/20 10:35 07/13/20 09:01 79 L 95 07/13/20 08:00 146/82 H 91 L 07/13/20 06:45 95 07/13/20 03:04 152/79 H 100 Weight Admit Weight 195 lb Weight 215 lb Most Recent Monitor Data Heart Rate from ECG 92 NIBP 119/85 NIBP BP-Mean 96 Respiration from ECG 22 SpO2 94 I&O: 07/12/20 07/13/20 07/14/20 06:59 06:59 06:59 Intake Total 5060 1630 Output Total 1600 1565 Balance 3460 65 Result Diagrams: 07/13/20 03:57 07/13/20 03:57 Hospitalist ROS - Medication Medications: Active Medications Generic Name Dose Route Start Last Admin Trade Name Freq PRN Reason Stop Dose Admin Acetaminophen 650 mg 06/03/20 16:52 07/11/20 20:44 Tylenol PO 650 mg Q4H PRN Administration Headache/Fever or Pain Albuterol/Ipratropium 3 ml 06/20/20 18:30 07/13/20 14:18 Duoneb NEB 3 ml [id number] SHORTY Administration Atorvastatin Calcium 20 mg 06/02/20 21:00 07/12/20 22:15 Lipitor PO 20 mg HS SHORTY Administration Cholecalciferol 800 units 06/07/20 09:00 07/13/20 09:58 Vitamin D PO 800 units DAILY SHORTY Administration Diphenhydramine HCl 25 mg 06/03/20 16:52 07/11/20 20:45 Benadryl PO 25 mg Q6H PRN Administration Itching Ferrous Gluconate 324 mg 06/03/20 21:00 07/13/20 09:59 Fergon PO 324 mg BID SHORTY Administration Fluticasone Propionate 0 gm 06/20/20 09:00 07/13/20 10:07 Flonase Nasal Lowry NASAL 1 spr DAILY SHORTY Administration Furosemide 60 mg 07/12/20 09:00 07/13/20 10:07 Furosemide 100 Mg/10 Ml Vial IVPB 60 mg QAM SHORTY Administration Gabapentin 100 mg 06/02/20 21:00 07/13/20 09:58 Neurontin PO 100 mg BID SHORTY Administration Guaifenesin 600 mg 06/22/20 21:00 07/13/20 09:57 Mucinex PO 600 mg Q12HR SHORTY Administration Hydralazine HCl 10 mg 07/13/20 14:00 07/13/20 14:22 Hydralazine 10 Mg Tab PO 10 mg Q8HR SHORTY Administration Hydroxyzine Pamoate 25 mg 06/29/20 08:33 07/03/20 05:52 Vistaril PO 25 mg Q4H PRN Administration Hypersensitivity reaction Milrinone Lactate/Dextrose 20 100 mls @ 11.149 mls/hr 07/06/20 09:15 07/12/20 16:22 mg/ Device IV 100 mls INF SHORTY Administration Protocol 0.375 MCG/KG/MIN Piperacillin Sod/Tazobactam 100 mls @ 200 mls/hr 07/08/20 06:00 07/13/20 12:35 Sod 2.25 gm/ Sodium Chloride IVPB 100 mls Q6HR SHORTY Administration Daptomycin 500 mg/ Sodium 100 mls @ 200 mls/hr 07/09/20 13:00 07/13/20 14:22 Chloride IVPB 100 mls Q48H SHORTY Administration Iron/Minerals/Multivitamins 1 tab 06/04/20 09:00 07/13/20 09:59 Theragran M PO 1 tab DAILY SHORTY Administration Magnesium Oxide 400 mg 06/11/20 09:00 07/13/20 09:57 Magnesium Oxide PO 400 mg DAILY SHORTY Administration Metoprolol Succinate 12.5 mg 07/05/20 21:00 07/13/20 09:56 Toprol Xl PO 12.5 mg BID SHORTY Administration Mometasone Furoate/Formoterol Fumar 2 puff 07/05/20 18:30 07/13/20 06:48 Dulera 200 Mcg/5 Mcg Inhaler INH 2 puff BID-RT SHORTY Administration Nystatin 0 gm 07/06/20 09:00 07/13/20 12:35 Nystatin Powder 15 Gm Bot TOP 1 applic BID SHORTY Administration Pantoprazole Sodium 40 mg 06/02/20 21:00 07/13/20 09:59 Protonix PO 40 mg BID SHORTY Administration Senna/Docusate Sodium 2 tab 06/03/20 21:00 07/13/20 10:28 Senokot S PO Not Given BID SHORTY Sodium Chloride 10 ml 06/14/20 13:26 07/08/20 21:38 Flush - Normal Saline IVF 10 ml PRN PRN Administration Saline Flush Tamsulosin HCl 0.4 mg 06/03/20 09:00 07/13/20 09:57 Flomax PO 0.4 mg DAILY SHORTY Administration Zolpidem Tartrate 5 mg 06/03/20 16:52 07/09/20 20:11 Ambien PO 5 mg HSPRN PRN Administration Insomnia - Exam General Appearance: awake alert Neck: supple, no JVD Respiratory: normal chest expansion, rhonchi, tachypneic Neurological: cranial nerve grossly intact, no new deficit Hosp A/P (1) Acute on chronic diastolic (congestive) heart failure Code(s): I50.33 - ACUTE ON CHRONIC DIASTOLIC (CONGESTIVE) HEART FAILURE Status: Acute (2) Atrial fibrillation Code(s): I48.91 - UNSPECIFIED ATRIAL FIBRILLATION Status: Chronic Qualifiers: (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 Code(s): T84.59XA - INFECT/INFLM REACTION DUE TO OTH INTERNAL JOINT PROSTH, INIT; Z96.649 - PRESENCE OF UNSPECIFIED ARTIFICIAL HIP JOINT Status: Acute (4) BPH (benign prostatic hyperplasia) Code(s): N40.0 - BENIGN PROSTATIC HYPERPLASIA WITHOUT LOWER URINRY TRACT SYMP Status: Chronic Qualifiers: (5) CKD (chronic kidney disease) stage 3, GFR 30-59 ml/min Code(s): N18.3 - CHRONIC KIDNEY DISEASE, STAGE 3 (MODERATE) Status: Chronic (6) HTN (hypertension) Code(s): I10 - ESSENTIAL (PRIMARY) HYPERTENSION Status: Chronic Qualifiers: (7) Red man syndrome Code(s): L27.0 - GEN SKIN ERUPTION DUE TO DRUGS AND MEDS TAKEN INTERNALLY Status: Acute - Plan This is an 79 year old male with past medical history of multiple hip surgeries presenting with left thigh and hip pain Left thigh and hip pain 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 Continue milrinone drip per Dr. Fowler. He is diuresing well and his creatinine has been trending up. Continue scheduled nebulizer and corticosteroids. Continue IV antibiotics per ID recommendations until the end of June. Continue PT and OT. Anemia due to acute blood loss. Improved with blood transfusion. H&H stable. 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 Colonoscopy was positive for diverticulosis. Anticoagulation on hold.
--- NOTE | 2020-07-13 17:55 | PRG ---
DATE OF SERVICE: 07/13/2020 SUBJECTIVE: He says he is doing better. Reviewed events over the last week. OBJECTIVE: VITAL SIGNS: He is afebrile. Heart rate is in the 90s, respiratory rates in the teens, oximetry is 92% on 4 L. LUNGS: He is not wheezing. HEART: Regular rhythm. ABDOMEN: Soft. EXTREMITIES: He still has 2 to 3+ pitting of his lower extremities. LABORATORY DATA: White count 14.2, hemoglobin 9.8, platelets 215. Sodium 143, potassium 3.7, chloride 107, bicarb 21, BUN 60, creatinine 2.63. IMPRESSION AND PLAN: 1. Chronic obstructive pulmonary disease. 2. Diastolic heart failure. 3. Lower extremity edema secondary to combination of chronic obstructive pulmonary disease, diastolic heart failure, and renal insufficiency. I have explained to the again, who understands this actually quite well that we walk a narrow path and it may be that he will always have a little bit of edema. He is still on IV steroids. This probably has kept him from being bronchospastic, but we will see if we can cut into 10 mg a day of prednisone. Hopefully, he will remain wheeze free. I will continue to follow him. Job ID: [id number]
--- NOTE | 2020-07-13 19:31 | PRG ---
DATE OF SERVICE: 07/13/2020 SUBJECTIVE: Mr. Mart is tolerating a diet, clears, full liquids. Nurses noted no bleeding. MEDICATIONS: Reviewed. He remains on daptomycin, fluconazole, iron, pantoprazole 40 b.i.d. p.o., Zosyn, prednisone. OBJECTIVE: VITAL SIGNS: Pulse 95 to 107, temperature 98, blood pressure 142/81. ABDOMEN: Soft, nontender. SKIN: Ecchymoses and significant bruising and frail skin. LABORATORY DATA: White count 14, hemoglobin 9, platelet count 215, BUN 60, creatinine 2.63. ASSESSMENT: 1. Chronic anemia, congestive heart failure, chronic obstructive pulmonary disease, renal failure, subacute gastrointestinal bleeding. 2. Esophagogastroduodenoscopy and colonoscopy yesterday, nondiagnostic with diverticulosis coli. No active bleeding. Large internal hemorrhoids. Esophagogastroduodenoscopy revealed some possible small arteriovenous malformations, nonbleeding, which were cauterized. RECOMMENDATIONS: 1. Protonix b.i.d. for 10 days and once daily. 2. Diflucan for 14 days in light of Coty esophagitis. His risk factors, chronic steroid use. 3. We would not recommend repeat colonoscopy for the small polyps not etiologies of bleeding. We will sign off this time. If I can be of any further assistance in the patient's care, please do not hesitate to contact us. Job ID: [id number]
[2020-07-13] MEDS: diphenhydrAMINE 25 MG CAP PO PRN (20:46)
[2020-07-13] MEDS: Atorvastatin Calcium 20 MG TAB PO SCH (20:48)
[2020-07-13] MEDS: Acetaminophen 325 MG TAB PO PRN (20:49)
[2020-07-13] MEDS ORDERED: traMADol HCl 50 MG TAB PO SCH (21:15)
[2020-07-14 05:00] LABS: #Lymphocytes 0.6 thou/uL (1.20-3.40); #Monocytes 1.1 thou/uL (0.11-0.59); #Neutrophils 12.2 thou/uL (1.40-6.50); %Eosinophils 0.3 % (0.0-10.0); %Lymphocytes 4.3 % (21.0-51.0); %Monocytes 7.6 % (0.0-10.0); %Neutrophils 87.8 % (42.0-75.0); Hemoglobin 9.1 g/dL (14.0-18.0); Mean Corpuscular HGB CONC 30.9 g/dL (32.0-36.0); Mean Corpuscular Hemoglobin 28.6 pg (27.0-31.0); Mean Corpuscular Volume 92.5 fL (78.0-98.0); Mean Platelet Volume 9.5 fL (7.4-10.4); Platelet Count 195 thou/uL (130-400); RBC Distribution Width 18.7 % (11.5-14.5); White Blood Cell (WBC) Count 13.9 thou/uL (4.8-10.8)
[2020-07-14 05:26] LABS: Anion Gap 18 mmol/L (10-20); BUN (Urea Nitrogen) 58 mg/dL (8.4-25.7); Calc. Creatinine Clearance 33 mL/min (70-130); Calcium 8.2 mg/dL (7.8-10.44); Carbon Dioxide 20 mmol/L (23-31); Chloride 105 mmol/L (98-107); Estimated GFR-MDRD 25; Glucose 150 mg/dL (83-110); Potassium 3.8 mmol/L (3.5-5.1); Sodium 139 mmol/L (136-145)
[2020-07-14] MEDS: hydrALAZINE 10 MG TAB PO SCH ×3 (05:42→21:36)
[2020-07-14] MEDS: Piperacillin/Tazobactam 2.25 GM in Sodium Chloride 0.9% 100 ML IVPB SCH ×3 (05:42→17:31)
[2020-07-14] MEDS: Mometasone 200 MCG/Formoterol 5 MCG 120 PUFF INHALER INH SCH ×2 (06:59→19:15)
[2020-07-14] MEDS ORDERED: methylPREDNISolone Sod Succ 40 MG VIAL IVP SCH (09:00)
[2020-07-14] MEDS: Fluconazole 100 MG TAB PO SCH (09:03)
[2020-07-14] MEDS: Cholecalciferol (Vitamin D3) 400 UNITS TAB PO SCH (09:03)
[2020-07-14] MEDS: predniSONE 20 MG TAB PO SCH (09:03)
[2020-07-14] MEDS: Tamsulosin HCl 0.4 MG CAP PO SCH (09:04)
[2020-07-14] MEDS: Ferrous Gluconate 324 MG TAB PO SCH ×2 (09:04→21:35)
[2020-07-14] MEDS: guaiFENesin ER 600 MG TAB PO SCH ×2 (09:04→21:35)
[2020-07-14] MEDS: Multivitamin W/ Minerals 1 TAB PO SCH (09:04)
[2020-07-14] MEDS: Furosemide 100 MG/10 ML VIAL IVPB SCH ×2 (09:05→14:21)
[2020-07-14] MEDS: Magnesium Oxide 400 MG TAB PO SCH (09:05)
[2020-07-14] MEDS: Gabapentin 100 MG CAP PO SCH ×2 (09:05→21:35)
[2020-07-14] MEDS: Senokot S 8.6-50 MG TAB PO SCH ×2 (09:08→21:35)
[2020-07-14] MEDS: Fluticasone Propionate Nasal Spray 16 gm Bottle NASAL SCH (09:10)
[2020-07-14] MEDS: Nystatin Powder 15 GM BOT TOP SCH ×2 (09:11→21:37)
[2020-07-14] MEDS: Milrinone Lactate/D5W 20 MG in Premix Bag 1 BAG IV SCH ×2 (10:05→18:33)
--- NOTE | 2020-07-14 10:40 | PRG ---
DATE OF SERVICE: 07/14/2020 SERVICE: [facility]. SUBJECTIVE: Mr. Mart had a good day. He does not seem to remember having any bloody bowel movements. He is breathing about the same. He believes it is perhaps little bit easier. He is able to get up a bit, walk a few steps. He also said he had a good night of sleep. However, he does not feel like any fluid came off him yesterday. REVIEW OF SYSTEMS: GENERAL: There is no fever, chills, or productive cough. HEENT: There is no change in vision, hearing, or swallowing. He has chronic hard of hearing. PULMONARY: Please see HPI. CARDIAC: There are no reports of palpitations or syncope. GI: There is no nausea or vomiting. : He has a chronic indwelling De catheter. MUSCULOSKELETAL: He is not complaining of pain this morning. INTEGUMENT: He is not complaining of any new skin breakdown this morning. NEUROLOGIC: There are no focal deficits or weaknesses. MEDICATIONS: Medications that have cardiac effects include; 1. Albuterol and ipratropium nebs q.4 hours. 2. Atorvastatin 20 mg at bedtime. 3. Daptomycin, currently at 500 mg once every other day. 4. Furosemide at 60 mg IV daily in the morning. 5. Gabapentin 100 mg b.i.d. 6. Toprol-XL 12.5 mg twice a day. 7. Milrinone currently at 0.375 mcg/kg/minute. 8. Dulera at 200/5 mcg combination two puffs twice a day. 9. Zosyn at 2.25 g IV q.6 hours. 10. Prednisone at 10 mg daily now. 11. Flomax at 0.4 mg daily. 12. He also has hydralazine at 10 mg q.8 hours. His telemetries were reviewed. He is predominantly in sinus rhythm, but he has different morphology of P wave to suggest a wandering pacemaker. There is occasional PVC. However, there is no concerning arrhythmia. PHYSICAL EXAMINATION: VITAL SIGNS: His latest vitals are, when I examined him in the room, heart rate about 98, blood pressure 130/55. His oxygen saturation is about 90% when he is resting, but when he gets out of bed, take a few steps and sits down, it is down at 79% of O2 by nasal cannula. I had to titrate up to 5 L/minute to get his O2 saturation back up to 85%. Also, once he is rested, his O2 saturation will come back up. GENERAL: He is alert and conversational, appears to be surprisingly energetic for his state. HEENT: Show EOMI. Oropharynx with moist mucosa. NECK: His JVP is elevated about at least 13 cm. PULMONARY: He has decreased breath sounds and crackles at the right base, but he has good air movement on the left lung. CARDIAC: Tachycardic, but with normal rate at times; but regular rhythm. There is a normal S1, S2. There is 2/6 holosystolic murmur at the left sternal border and also at the apex. ABDOMEN: Soft, nontender. Positive bowel sounds. EXTREMITIES: He has pitting edema at his hips. He has significantly greater than 1 cm pitting edema from the feet to knees and about 0.5 cm or worse pitting edema around his thighs. Thus, he is still in quite a bit of edematous state. Also, this is much better than what he was about a week ago. His I's and O's from yesterday recorded as 3220 mL in and 1200 mL out. Thus, he has net positive. Consequently, more diuresis is needed. LABORATORY DATA: His laboratory values this morning, white cell count 13.9, hemoglobin 9.1, platelets of 195. His chemistry showed sodium 139, potassium 3.8, chloride 105, bicarb of 20. His BUN has decreased down to 58. His creatinine has decreased down to 2.5. Glucose at 150. ASSESSMENT: 79-year-old gentleman has multitude of difficult problems. He was originally admitted for septic left hip joint. He went through washout treatment and left hip replacement, and he is on IV antibiotic for that right now. He also had a gastrointestinal bleed, which was cauterized at the bleeding points in his stomach about 2 days ago. He has pulmonary hypertension. He has a right ventricular failure, cor pulmonale, and also left ventricular diastolic dysfunction. He also has acute on chronic renal insufficiency. He has a cardiorenal syndrome, but his BUN and creatinine has been improving with the inotropic therapy. At this point, his creatinine clearance is too low to allow any up titration of milrinone. He will need to have increase the inotropic therapy to augment the right heart function to provide enough cardiac output to sustain effective diuresis without harming his kidneys. Please see the following for my recommendations. RECOMMENDATIONS: 1. Add dobutamine 2.5 mcg/kg/minute. 2. Increase frequency of Lasix to 60 mg IV b.i.d. 3. We will monitor his output. If his output is unable to be negative, we will intensify his diuretics tomorrow morning. 4. This is a quite grim situation. We will aim to provide much volume relief while preserving his renal functions as much as possible. He may be heading towards hospice. It has been a pleasure taking care of Mr. Mart. If you any questions, please give me a call. The total time spent on this visit is 35 minutes. This includes person performing H and P, coordinating care with other physicians, and also direct patient contact. Job ID: [id number] MTDAnn
[2020-07-14] MEDS: DOBUTamine 500 mg/250 ml 250 ML IVPB SCH (11:17)
[2020-07-14] MEDS: diphenhydrAMINE 25 MG CAP PO PRN ×2 (11:30→21:36)
--- NOTE | 2020-07-14 16:09 | PDOC.HOSPP ---
- Subjective Encounter Date: 07/14/20 Subjective: Mr. Yeung status did not change much since yesterday. He is still diuresing well and working with PT. - Objective Vital Signs & Weight: Vital Signs (12 hours) Temp Pulse Pulse Resp BP BP Pulse Ox 07/14/20 14:21 102 H 07/14/20 14:07 102 H 16 07/14/20 12:00 98.3 F 91 18 141/67 H 90 L 07/14/20 10:29 97 16 95 07/14/20 09:00 100 150/75 H 07/14/20 08:00 98.1 F 86 19 128/67 92 L 07/14/20 07:43 92 L 07/14/20 06:59 80 14 07/14/20 05:42 102 H Weight Admit Weight 195 lb Weight 218 lb 3.2 oz Most Recent Monitor Data Heart Rate from ECG 92 NIBP 119/85 NIBP BP-Mean 96 Respiration from ECG 22 SpO2 94 I&O: 07/13/20 07/14/20 07/15/20 06:59 06:59 06:59 Intake Total 1630 2220 Output Total 1565 1200 Balance 65 1020 Result Diagrams: 07/14/20 04:14 07/14/20 04:14 Hospitalist ROS - Medication Medications: Active Medications Generic Name Dose Route Start Last Admin Trade Name Freq PRN Reason Stop Dose Admin Acetaminophen 650 mg 06/03/20 16:52 07/13/20 20:49 Tylenol PO 650 mg Q4H PRN Administration Headache/Fever or Pain Albuterol/Ipratropium 3 ml 06/20/20 18:30 07/14/20 14:07 Duoneb NEB 3 ml [id number] SHORTY Administration Atorvastatin Calcium 20 mg 06/02/20 21:00 07/13/20 20:48 Lipitor PO 20 mg HS SHORTY Administration Cholecalciferol 800 units 06/07/20 09:00 07/14/20 09:03 Vitamin D PO 800 units DAILY SHORTY Administration Diphenhydramine HCl 25 mg 06/03/20 16:52 07/14/20 11:30 Benadryl PO 25 mg Q6H PRN Administration Itching Ferrous Gluconate 324 mg 06/03/20 21:00 07/14/20 09:04 Fergon PO 324 mg BID SHORTY Administration Fluconazole 200 mg 07/14/20 09:00 07/14/20 09:03 Fluconazole 100 Mg Tab PO 200 mg DAILY SHORTY Administration Fluticasone Propionate 0 gm 06/20/20 09:00 07/14/20 09:10 Flonase Nasal [place] NASAL 1 spr DAILY SHORTY Administration Furosemide 60 mg 07/14/20 14:00 07/14/20 14:21 Furosemide 100 Mg/10 Ml Vial IVPB 60 mg 0600,1400 SHORTY Administration Gabapentin 100 mg 06/02/20 21:00 07/14/20 09:05 Neurontin PO 100 mg BID SHORTY Administration Guaifenesin 600 mg 06/22/20 21:00 07/14/20 09:04 Mucinex PO 600 mg Q12HR SHORTY Administration Hydralazine HCl 10 mg 07/13/20 14:00 07/14/20 14:21 Hydralazine 10 Mg Tab PO 10 mg Q8HR SHORTY Administration Hydroxyzine Pamoate 25 mg 06/29/20 08:33 07/03/20 05:52 Vistaril PO 25 mg Q4H PRN Administration Hypersensitivity reaction Milrinone Lactate/Dextrose 20 100 mls @ 11.149 mls/hr 07/06/20 09:15 07/13/20 23:40 mg/ Device IV 100 mls INF SHORTY Administration Protocol 0.375 MCG/KG/MIN Piperacillin Sod/Tazobactam 100 mls @ 200 mls/hr 07/08/20 06:00 07/14/20 11:17 Sod 2.25 gm/ Sodium Chloride IVPB 100 mls Q6HR SHORTY Administration Daptomycin 500 mg/ Sodium 100 mls @ 200 mls/hr 07/09/20 13:00 07/13/20 14:22 Chloride IVPB 100 mls Q48H SHORTY Administration Dobutamine HCl/Dextrose 250 mls @ 7.423 mls/hr 07/14/20 09:45 07/14/20 11:17 Dobutamine 500 Mg/250 Ml IVPB 250 mls INF SHORTY Administration 2.5 MCG/KG/MIN Iron/Minerals/Multivitamins 1 tab 06/04/20 09:00 07/14/20 09:04 Theragran M PO 1 tab DAILY SHORTY Administration Magnesium Oxide 400 mg 06/11/20 09:00 07/14/20 09:05 Magnesium Oxide PO 400 mg DAILY SHORTY Administration Metoprolol Succinate 12.5 mg 07/05/20 21:00 07/14/20 09:04 Toprol Xl PO 12.5 mg BID SHORTY Administration Mometasone Furoate/Formoterol Fumar 2 puff 07/05/20 18:30 07/14/20 06:59 Dulera 200 Mcg/5 Mcg Inhaler INH 2 puff BID-RT SHORTY Administration Nystatin 0 gm 07/06/20 09:00 07/14/20 09:11 Nystatin Powder 15 Gm Bot TOP 1 applic BID SHORTY Administration Pantoprazole Sodium 40 mg 06/02/20 21:00 07/14/20 09:04 Protonix PO 40 mg BID SHORTY Administration Prednisone 10 mg 07/14/20 08:00 07/14/20 09:03 Prednisone 20 Mg Tab PO 10 mg QAM-WM SHORTY Administration Senna/Docusate Sodium 2 tab 06/03/20 21:00 07/14/20 09:08 Senokot S PO Not Given BID SHORTY Sodium Chloride 10 ml 06/14/20 13:26 07/08/20 21:38 Flush - Normal Saline IVF 10 ml PRN PRN Administration Saline Flush Tamsulosin HCl 0.4 mg 06/03/20 09:00 07/14/20 09:04 Flomax PO 0.4 mg DAILY SHORTY Administration Zolpidem Tartrate 5 mg 06/03/20 16:52 07/09/20 20:11 Ambien PO 5 mg HSPRN PRN Administration Insomnia - Exam General Appearance: awake alert ENT: normocephalic atraumatic Neck: supple, no JVD Respiratory: normal chest expansion, no tachypnea Extremities: 2+ LE edema Psychiatric: A&O x 3 Hosp A/P (1) Acute on chronic diastolic (congestive) heart failure Code(s): I50.33 - ACUTE ON CHRONIC DIASTOLIC (CONGESTIVE) HEART FAILURE Status: Acute (2) Atrial fibrillation Code(s): I48.91 - UNSPECIFIED ATRIAL FIBRILLATION Status: Chronic Qualifiers: (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 Code(s): T84.59XA - INFECT/INFLM REACTION DUE TO OTH INTERNAL JOINT PROSTH, INIT; Z96.649 - PRESENCE OF UNSPECIFIED ARTIFICIAL HIP JOINT Status: Acute (4) BPH (benign prostatic hyperplasia) Code(s): N40.0 - BENIGN PROSTATIC HYPERPLASIA WITHOUT LOWER URINRY TRACT SYMP Status: Chronic Qualifiers: (5) CKD (chronic kidney disease) stage 3, GFR 30-59 ml/min Code(s): N18.3 - CHRONIC KIDNEY DISEASE, STAGE 3 (MODERATE) Status: Chronic (6) HTN (hypertension) Code(s): I10 - ESSENTIAL (PRIMARY) HYPERTENSION Status: Chronic Qualifiers: (7) Red man syndrome Code(s): L27.0 - GEN SKIN ERUPTION DUE TO DRUGS AND MEDS TAKEN INTERNALLY Status: Acute - Plan This is an 79 year old male with past medical history of multiple hip surgeries presenting with left thigh and hip pain Left thigh and hip pain s/p total hip arthroplasty secondary to Morganella karan jordyn infection Acute diastolic heart failure secondary to pulmonary edema Scrotal swelling/edema - from fluid overload NNEKA - likely cardiorenal #Anemia Hypocalcemia - Physical deconditioning Allergic reaction to antibiotics Shortness of breath due to combination of congestive heart failure, and COPD. Continue milrinone and dobutamine per Dr. Fowler. He is diuresing well and his creatinine is stable. Continue scheduled nebulizer and corticosteroids. Continue IV antibiotics per ID recommendations until the end of June. Continue PT and OT. Anemia due to acute blood loss. Improved with blood transfusion. H&H stable. 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 Colonoscopy was positive for diverticulosis. Anticoagulation on hold. The patient's overall prognosis is poor. Palliative care and ethics were consulted.
[2020-07-14] MEDS ORDERED: traMADol HCl 50 MG TAB PO SCH (21:30)
[2020-07-14] MEDS: Atorvastatin Calcium 20 MG TAB PO SCH (21:35)
[2020-07-15] MEDS: Piperacillin/Tazobactam 2.25 GM in Sodium Chloride 0.9% 100 ML IVPB SCH ×6 (00:56→23:39)
[2020-07-15] MEDS: Milrinone Lactate/D5W 20 MG in Premix Bag 1 BAG IV SCH ×3 (04:11→23:38)
[2020-07-15 04:42] LABS: Hemoglobin 9.6 g/dL (14.0-18.0); Mean Corpuscular HGB CONC 31.8 g/dL (32.0-36.0); Mean Corpuscular Hemoglobin 29.4 pg (27.0-31.0); Mean Corpuscular Volume 92.5 fL (78.0-98.0); Mean Platelet Volume 9.3 fL (7.4-10.4); Platelet Count 206 thou/uL (130-400); RBC Distribution Width 18.8 % (11.5-14.5); Red Blood Cell (RBC) Count 3.26 mill/uL (4.70-6.10); White Blood Cell (WBC) Count 13.2 thou/uL (4.8-10.8)
[2020-07-15] MEDS: Furosemide 100 MG/10 ML VIAL IVPB SCH ×2 (05:06→14:24)
[2020-07-15] MEDS: hydrALAZINE 10 MG TAB PO SCH (05:07)
[2020-07-15 07:47] LABS: ALT (SGPT) 53 U/L (8-55); AST (SGOT) 17 U/L (5-34); Albumin 3.4 g/dL (3.4-4.8); Alkaline Phosphatase 196 U/L (40-110); Anion Gap 16 mmol/L (10-20); BUN (Urea Nitrogen) 56 mg/dL (8.4-25.7); Bilirubin, Total 0.7 mg/dL (0.2-1.2); Calc. Creatinine Clearance 33 mL/min (70-130); Calcium 7.8 mg/dL (7.8-10.44); Carbon Dioxide 21 mmol/L (23-31); Chloride 105 mmol/L (98-107); Estimated GFR-MDRD 25; Glucose 94 mg/dL (83-110); Magnesium 1.9 mg/dL (1.6-2.6); Potassium 3.2 mmol/L (3.5-5.1); Protein, Total 5.4 g/dL (5.8-8.1); Sodium 139 mmol/L (136-145)
[2020-07-15] MEDS: Tamsulosin HCl 0.4 MG CAP PO SCH (08:24)
[2020-07-15] MEDS: Cholecalciferol (Vitamin D3) 400 UNITS TAB PO SCH (08:24)
[2020-07-15] MEDS: guaiFENesin ER 600 MG TAB PO SCH ×2 (08:25→21:42)
[2020-07-15] MEDS: predniSONE 20 MG TAB PO SCH (08:25)
[2020-07-15] MEDS: Magnesium Oxide 400 MG TAB PO SCH (08:25)
[2020-07-15] MEDS: diphenhydrAMINE 25 MG CAP PO PRN ×2 (08:25→21:41)
[2020-07-15] MEDS: Fluconazole 100 MG TAB PO SCH (08:25)
[2020-07-15] MEDS: Multivitamin W/ Minerals 1 TAB PO SCH (08:26)
[2020-07-15] MEDS: Senokot S 8.6-50 MG TAB PO SCH ×2 (08:26→21:41)
[2020-07-15] MEDS: Gabapentin 100 MG CAP PO SCH ×2 (08:26→21:41)
[2020-07-15] MEDS: Ferrous Gluconate 324 MG TAB PO SCH ×2 (08:26→21:41)
[2020-07-15] MEDS: Nystatin Powder 15 GM BOT TOP SCH ×2 (08:27→21:43)
[2020-07-15] MEDS: Fluticasone Propionate Nasal Spray 16 gm Bottle NASAL SCH (08:27)
[2020-07-15] MEDS ORDERED: Potassium Chloride 20 MEQ TAB PO SCH (08:45)
--- NOTE | 2020-07-15 10:02 | PRG ---
DATE OF SERVICE: 07/15/2020 SERVICE: [facility]ing [facility]. SUBJECTIVE: Mr. Mart had a good day. He says breathing is usual, but then he can recover from exertion well. He is able to take a few steps and he is able to eat breakfast. He also believes that his fluid is coming off his abdomen and legs a little bit more yesterday. He made an effort not to drink too much fluids yesterday. REVIEW OF SYSTEMS: GENERAL: There is no fever, chills, or productive cough. HEENT: There is no change in vision, hearing, or swallowing. However, he is hard of hearing. PULMONARY: Please see HPI. CARDIAC: There is no chest pain, palpitations, or syncope. GI: There are no reports of nausea, vomiting, diarrhea, or blood in the stool. : He has an indwelling De catheter. MUSCULOSKELETAL: He is not complaining of back pain today. INTEGUMENT: There are no new skin breakdowns. NEUROLOGIC: There are no new focal deficits or weaknesses. MEDICATIONS: 1. Albuterol/ipratropium nebs q.4 hours. 2. Atorvastatin 20 mg each night. 3. Daptomycin 500 mg every 48 hours. 4. Dobutamine at 2.5 mcg/kg/minute. 5. Milrinone at 0.375 mcg/kg/minute. 6. Fluconazole 200 mg daily. 7. Furosemide 60 mg IV twice a day at 6:00 a.m. and 2:00 p.m. 8. Gabapentin 100 mg b.i.d. 9. Hydralazine 10 mg three times a day. 10. Magnesium oxide 400 mg daily. 11. Toprol-XL 12.5 mg b.i.d. 12. Dulera 200/5 mcg inhaler twice per day. 13. Zosyn 2.25 g IV q.6 hours. 14. Prednisone right now 10 mg daily. 15. Flomax 0.4 mg daily. PHYSICAL EXAMINATION: Telemetry was reviewed. He is in sinus rhythm, sometimes sinus tachycardia in the low 100s. It is mainly sinus rhythm. However, he has different P wave morphologies, so he has a wandering pacemaker. There are also occasional junctional beats and there are also occasional PVCs. There was a 3-beat wide-complex, but that was the only episode thus far. VITAL SIGNS: Heart rate 98, blood pressure 152/72, his oxygen saturation 93%. GENERAL: He is alert and conversational, but short of breath. HEENT: Show EOMI. Oropharynx is benign with moist mucosa. NECK: His JVP is about 13 cm just below the earlobe. PULMONARY: There are diminished sounds perhaps slight crackle at the left base and the right base is better. There is some slight wheeze. Overall, the lung sounds are better than yesterday. CARDIAC: Sometimes tachycardic and sometimes regular rate with occasional irregularity. Normal S1 and S2, there is 2/6 holosystolic murmur at the left sternal border and also at the apex. ABDOMEN: Soft, distended, but he has pitting edema about his waist. He also has pitting edema about his thighs. EXTREMITIES: Lower extremity is warm, well perfused, but then he has 1.5 cm pitting edema from the feet to towards knee. Even so this is a large amount of fluid, but still has quite improvement since 1 week ago. His last 24 hour input and output are 1100 in and 2750 out, so he is net negative 1650. LABORATORY VALUES: From this morning are white cell count 13.2, hemoglobin 9.6, platelets at 206. His chemistry values are sodium 139, potassium 3.2, chloride 105, bicarb of 21, BUN 56, creatinine 2.5. His BNP is 1107. His albumin is 3.4. ASSESSMENT: An 79-year-old gentleman who is slowly recovering from his multiple difficult problems. He was recently admitted for septic left hip joint, which underwent replacement. He is still on antibiotics for this. He has severe chronic obstructive pulmonary disease. He is currently on steroids. He has right heart failure-cor pulmonale due to severe pulmonary hypertension. He also has left ventricular diastolic dysfunction. This combination caused him to be quite fluid overloaded and renal dysfunction. He has cardiorenal syndrome. It is good that his creatinine has held steady and BUN decreased a bit. Addition of dobutamine yesterday seemed to help with his urine output and with a net negative of 1.6 L, this is sufficient for daily net negative, so we will go with this regimen as long as we can. Please see the following for my recommendations. RECOMMENDATIONS: 1. Continue dobutamine at 2.5 mcg/kg/minute. 2. Continue milrinone at 0.375 mcg/kg/minute. 3. Continue furosemide 60 mg IV b.i.d. This is having good net effect without harming his kidneys. 4. Please provide K-Dur 40 mEq one dose now. We will follow the potassium daily. 5. Please increase his magnesium supplementation to 400 mg b.i.d. 6. It is likely that he will need long-term milrinone therapy. 7. Increase hydralazine to 25 mg p.o. q.8 hours to bring his systolic blood pressure down. It has been a pleasure taking care of Mr. Mart. If you have any questions, please give me a call. The visitation time is about 35 minutes. This includes personally performing history and physical, coordinating care with other physicians, and direct patient interaction. Job ID: [id number] MTDD
[2020-07-15] MEDS: Acetaminophen 325 MG TAB PO PRN (10:15)
[2020-07-15] MEDS: Mometasone 200 MCG/Formoterol 5 MCG 120 PUFF INHALER INH SCH ×2 (10:30→19:02)
[2020-07-15] MEDS: DAPTOmycin 500 MG in Sodium Chloride 0.9% 100 ML IVPB SCH (13:49)
--- NOTE | 2020-07-15 14:16 | PDOC.HOSPP ---
- Subjective Encounter Date: 07/15/20 Subjective: I had a discussion with the patient today about his overall condition and prognosis. I stated that there is a chance that his condition will not improve. The patient became visibly upset. I was asked by his family to not participate in his care anymore. - Objective Vital Signs & Weight: Vital Signs (12 hours) Temp Pulse Resp BP Pulse Ox 07/15/20 11:50 98.7 F 100 21 H 139/67 96 07/15/20 10:31 93 L 07/15/20 10:30 93 16 07/15/20 07:45 97.5 F L 99 19 149/70 H 95 07/15/20 07:04 100 07/15/20 07:03 90 9 L 07/15/20 03:16 97.7 F 95 16 150/72 H 100 07/15/20 02:29 98 9 L 100 Weight Admit Weight 195 lb Weight 215 lb 4.8 oz Most Recent Monitor Data Heart Rate from ECG 92 NIBP 119/85 NIBP BP-Mean 96 Respiration from ECG 22 SpO2 94 I&O: 07/14/20 07/15/20 07/16/20 06:59 06:59 06:59 Intake Total 2220 1100 Output Total 1200 2750 Balance 1020 -1650 Result Diagrams: 07/15/20 04:08 07/15/20 07:18 Hospitalist ROS - Medication Medications: Active Medications Generic Name Dose Route Start Last Admin Trade Name Freq PRN Reason Stop Dose Admin Acetaminophen 650 mg 06/03/20 16:52 07/15/20 10:15 Tylenol PO 650 mg Q4H PRN Administration Headache/Fever or Pain Albuterol/Ipratropium 3 ml 06/20/20 18:30 07/15/20 10:30 Duoneb NEB 3 ml [id number] SHORTY Administration Atorvastatin Calcium 20 mg 06/02/20 21:00 07/14/20 21:35 Lipitor PO 20 mg HS SHORTY Administration Cholecalciferol 800 units 06/07/20 09:00 07/15/20 08:24 Vitamin D PO 800 units DAILY SHORTY Administration Diphenhydramine HCl 25 mg 06/03/20 16:52 07/15/20 08:25 Benadryl PO 25 mg Q6H PRN Administration Itching Ferrous Gluconate 324 mg 06/03/20 21:00 07/15/20 08:26 Fergon PO 324 mg BID SHORTY Administration Fluconazole 200 mg 07/14/20 09:00 07/15/20 08:25 Fluconazole 100 Mg Tab PO 200 mg DAILY SHORTY Administration Fluticasone Propionate 0 gm 06/20/20 09:00 07/15/20 08:27 Flonase Nasal [place] NASAL 1 spr DAILY SHORTY Administration Furosemide 60 mg 07/14/20 14:00 07/15/20 05:06 Furosemide 100 Mg/10 Ml Vial IVPB 60 mg 0600,1400 SHORTY Administration Gabapentin 100 mg 06/02/20 21:00 07/15/20 08:26 Neurontin PO 100 mg BID SHORTY Administration Guaifenesin 600 mg 06/22/20 21:00 07/15/20 08:25 Mucinex PO 600 mg Q12HR SHORTY Administration Hydroxyzine Pamoate 25 mg 06/29/20 08:33 07/03/20 05:52 Vistaril PO 25 mg Q4H PRN Administration Hypersensitivity reaction Milrinone Lactate/Dextrose 20 100 mls @ 11.149 mls/hr 07/06/20 09:15 07/15/20 04:11 mg/ Device IV 100 mls INF SHORTY Administration Protocol 0.375 MCG/KG/MIN Piperacillin Sod/Tazobactam 100 mls @ 200 mls/hr 07/08/20 06:00 07/15/20 11:51 Sod 2.25 gm/ Sodium Chloride IVPB 100 mls Q6HR SHORTY Administration Daptomycin 500 mg/ Sodium 100 mls @ 200 mls/hr 07/09/20 13:00 07/15/20 13:49 Chloride IVPB 100 mls Q48H SHORTY Administration Dobutamine HCl/Dextrose 250 mls @ 7.423 mls/hr 07/14/20 09:45 07/14/20 11:17 Dobutamine 500 Mg/250 Ml IVPB 250 mls INF SHORTY Administration 2.5 MCG/KG/MIN Iron/Minerals/Multivitamins 1 tab 06/04/20 09:00 07/15/20 08:26 Theragran M PO 1 tab DAILY SHORTY Administration Magnesium Oxide 400 mg 06/11/20 09:00 07/15/20 08:25 Magnesium Oxide PO 400 mg DAILY SHORTY Administration Metoprolol Succinate 12.5 mg 07/05/20 21:00 07/15/20 08:25 Toprol Xl PO 12.5 mg BID SHORTY Administration Mometasone Furoate/Formoterol Fumar 2 puff 07/05/20 18:30 07/15/20 10:30 Dulera 200 Mcg/5 Mcg Inhaler INH 2 puff BID-RT SHORTY Administration Nystatin 0 gm 07/06/20 09:00 07/15/20 08:27 Nystatin Powder 15 Gm Bot TOP 1 applic BID SHORTY Administration Pantoprazole Sodium 40 mg 06/02/20 21:00 07/15/20 08:26 Protonix PO 40 mg BID SHORTY Administration Prednisone 10 mg 07/14/20 08:00 07/15/20 08:25 Prednisone 20 Mg Tab PO 10 mg QAM-WM SHORTY Administration Senna/Docusate Sodium 2 tab 06/03/20 21:00 07/15/20 08:26 Senokot S PO 2 tab BID SHORTY Administration Sodium Chloride 10 ml 06/14/20 13:26 07/08/20 21:38 Flush - Normal Saline IVF 10 ml PRN PRN Administration Saline Flush Tamsulosin HCl 0.4 mg 06/03/20 09:00 07/15/20 08:24 Flomax PO 0.4 mg DAILY SHORTY Administration Zolpidem Tartrate 5 mg 06/03/20 16:52 07/09/20 20:11 Ambien PO 5 mg HSPRN PRN Administration Insomnia - Exam General Appearance: awake alert Neck: supple, no JVD Respiratory: normal chest expansion, tachypneic Extremities: no cyanosis, no clubbing, 2+ LE edema Neurological: cranial nerve grossly intact Hosp A/P (1) Acute on chronic diastolic (congestive) heart failure Code(s): I50.33 - ACUTE ON CHRONIC DIASTOLIC (CONGESTIVE) HEART FAILURE Status: Acute (2) Atrial fibrillation Code(s): I48.91 - UNSPECIFIED ATRIAL FIBRILLATION Status: Chronic Qualifiers: (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 Code(s): T84.59XA - INFECT/INFLM REACTION DUE TO OTH INTERNAL JOINT PROSTH, INIT; Z96.649 - PRESENCE OF UNSPECIFIED ARTIFICIAL HIP JOINT Status: Acute (4) BPH (benign prostatic hyperplasia) Code(s): N40.0 - BENIGN PROSTATIC HYPERPLASIA WITHOUT LOWER URINRY TRACT SYMP Status: Chronic Qualifiers: (5) CKD (chronic kidney disease) stage 3, GFR 30-59 ml/min Code(s): N18.3 - CHRONIC KIDNEY DISEASE, STAGE 3 (MODERATE) Status: Chronic (6) HTN (hypertension) Code(s): I10 - ESSENTIAL (PRIMARY) HYPERTENSION Status: Chronic Qualifiers: (7) Red man syndrome Code(s): L27.0 - GEN SKIN ERUPTION DUE TO DRUGS AND MEDS TAKEN INTERNALLY Status: Acute - Plan This is an 79 year old male with past medical history of multiple hip surgeries presenting with left thigh and hip pain Left thigh and hip pain 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 Continue milrinone and dobutamine per Dr. Fowler. He is diuresing well and his creatinine is stable. Continue scheduled nebulizer and corticosteroids. Continue IV antibiotics per ID recommendations until the end of June. Continue PT and OT. Anemia due to acute blood loss. Improved with blood transfusion. H&H stable. 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 Colonoscopy was positive for diverticulosis. Anticoagulation on hold. The patient's overall prognosis is poor. Had a meeting with our ethics team regarding the projected path of his condition based on our current understanding. Transfer to a long-term acute care facility was suggested as his condition is progressing at a pace that would require custodial hospitalization.
[2020-07-15] MEDS: hydrALAZINE 25 MG TAB PO SCH ×2 (14:24→21:42)
[2020-07-15] MEDS: DOBUTamine 500 mg/250 ml 250 ML IVPB SCH (18:42)
[2020-07-15] MEDS ORDERED: traMADol HCl 50 MG TAB PO SCH (20:00)
--- NOTE | 2020-07-15 20:43 | PRG ---
DATE OF SERVICE: 07/15/2020 SUBJECTIVE: Bin Mart is afebrile. Heart rates in 90s, respiratory rates in the teens. He is still on nasal cannula. Blood pressure 146/68. Overall, he is clinically stable. Apparently, he has terminated the relationship with the hospitalist, so since I have known Mr. Mart for a long time, I will be happy to take over and assist his day-to-day issues. Primary issues are the infusions being recommended by Cardiology. I am not sure that longer hospitalization is going to add much to his care given that he has been in the hospital over 40 days. Placement is the next step, although from what I am told family is fairly resistant to placement, so I will try to get with his and discuss these issues in more detail over the weekend. Job ID: [id number]
[2020-07-15] MEDS: Atorvastatin Calcium 20 MG TAB PO SCH (21:41)
[2020-07-16 04:27] LABS: Hemoglobin 9.4 g/dL (14.0-18.0); Mean Corpuscular HGB CONC 32.1 g/dL (32.0-36.0); Mean Corpuscular Hemoglobin 29.7 pg (27.0-31.0); Mean Corpuscular Volume 92.8 fL (78.0-98.0); Mean Platelet Volume 9.9 fL (7.4-10.4); Platelet Count 203 thou/uL (130-400); RBC Distribution Width 18.9 % (11.5-14.5); Red Blood Cell (RBC) Count 3.15 mill/uL (4.70-6.10); White Blood Cell (WBC) Count 12.3 thou/uL (4.8-10.8)
[2020-07-16] MEDS: hydrALAZINE 25 MG TAB PO SCH ×3 (05:09→21:02)
[2020-07-16] MEDS: Furosemide 100 MG/10 ML VIAL IVPB SCH ×2 (05:09→13:29)
[2020-07-16] MEDS: diphenhydrAMINE 25 MG CAP PO PRN (05:09)
[2020-07-16] MEDS: Piperacillin/Tazobactam 2.25 GM in Sodium Chloride 0.9% 100 ML IVPB SCH ×4 (05:10→23:41)
[2020-07-16] MEDS: Fluconazole 100 MG TAB PO SCH (09:02)
[2020-07-16] MEDS: Gabapentin 100 MG CAP PO SCH ×2 (09:02→21:02)
[2020-07-16] MEDS: Multivitamin W/ Minerals 1 TAB PO SCH (09:03)
[2020-07-16] MEDS: Senokot S 8.6-50 MG TAB PO SCH ×2 (09:03→21:04)
[2020-07-16] MEDS: guaiFENesin ER 600 MG TAB PO SCH ×2 (09:03→21:03)
[2020-07-16] MEDS: predniSONE 20 MG TAB PO SCH (09:04)
[2020-07-16] MEDS: Ferrous Gluconate 324 MG TAB PO SCH ×2 (09:04→21:03)
[2020-07-16] MEDS: Tamsulosin HCl 0.4 MG CAP PO SCH (09:04)
[2020-07-16] MEDS: Magnesium Oxide 400 MG TAB PO SCH ×2 (09:05→21:02)
[2020-07-16] MEDS: Milrinone Lactate/D5W 20 MG in Premix Bag 1 BAG IV SCH ×2 (09:08→18:28)
[2020-07-16 09:12] LABS: Anion Gap 15 mmol/L (10-20); BUN (Urea Nitrogen) 54 mg/dL (8.4-25.7); Calc. Creatinine Clearance 33 mL/min (70-130); Calcium 7.9 mg/dL (7.8-10.44); Carbon Dioxide 22 mmol/L (23-31); Chloride 106 mmol/L (98-107); Estimated GFR-MDRD 25; Glucose 99 mg/dL (83-110); Magnesium 1.9 mg/dL (1.6-2.6); Potassium 3.5 mmol/L (3.5-5.1); Sodium 139 mmol/L (136-145)
[2020-07-16] MEDS: Fluticasone Propionate Nasal Spray 16 gm Bottle NASAL SCH (09:13)
[2020-07-16] MEDS: Nystatin Powder 15 GM BOT TOP SCH ×2 (09:16→21:04)
[2020-07-16] MEDS: Cholecalciferol (Vitamin D3) 400 UNITS TAB PO SCH (09:23)
[2020-07-16] MEDS: Mometasone 200 MCG/Formoterol 5 MCG 120 PUFF INHALER INH SCH ×2 (10:51→18:36)
[2020-07-16] MEDS ORDERED: Potassium Chloride 20 MEQ TAB PO SCH (12:00)
--- NOTE | 2020-07-16 14:04 | PRG ---
DATE OF SERVICE: 07/16/2020 SUBJECTIVE: Mr. Mart remains on milrinone and dobutamine. He has no complaints. His weight reported is 216 pounds. This is a 1-pound gain, but his fluid balance is -1485. OBJECTIVE: LUNGS: Free of wheezes. HEART: Regular rhythm. ABDOMEN: Soft. EXTREMITIES: With 2+ edema. IMPRESSION: 1. Chronic obstructive pulmonary disease, clinically stable, likely steroid dependent. 2. Anemia of chronic disease. 3. Congestive heart failure, predominantly diastolic. 4. Cor pulmonale secondary to his chronic obstructive pulmonary disease. 5. Recent gastrointestinal blood loss requiring transfusion. PLAN: Continue supportive care. I have discussed placement with him, stating that there is probably no longer a benefit from staying in the hospital since we are not making day-to-day medication adjustments. He says he is willing to go to [place], but he tells me he wants Dr. Ferro to take care of him. I suspect this can be arranged. We will continue to follow. Job ID: [id number]
[2020-07-16] MEDS: Atorvastatin Calcium 20 MG TAB PO SCH (21:03)
[2020-07-17] MEDS: DOBUTamine 500 mg/250 ml 250 ML IVPB SCH (03:30)
[2020-07-17 04:55] LABS: Anion Gap 16 mmol/L (10-20); BUN (Urea Nitrogen) 53 mg/dL (8.4-25.7); Calc. Creatinine Clearance 32 mL/min (70-130); Calcium 7.8 mg/dL (7.8-10.44); Carbon Dioxide 20 mmol/L (23-31); Chloride 108 mmol/L (98-107); Estimated GFR-MDRD 25; Glucose 131 mg/dL (83-110); Magnesium 1.9 mg/dL (1.6-2.6); Potassium 3.5 mmol/L (3.5-5.1); Sodium 140 mmol/L (136-145)
[2020-07-17 05:50] LABS: Band 4 % (5-11); Eosinophils 1 % (0-10); Hemoglobin 9.4 g/dL (14.0-18.0); Lymphocytes 1 % (21-51); MDiff Complete? YES; Mean Corpuscular HGB CONC 31.6 g/dL (32.0-36.0); Mean Corpuscular Hemoglobin 29.2 pg (27.0-31.0); Mean Corpuscular Volume 92.5 fL (78.0-98.0); Mean Platelet Volume 9.2 fL (7.4-10.4); Monocytes 1 % (0-10); Neutrophil 93 % (42-75); Platelet Count 195 thou/uL (130-400); RBC Distribution Width 18.5 % (11.5-14.5); Red Blood Cell (RBC) Count 3.22 mill/uL (4.70-6.10); White Blood Cell (WBC) Count 12.9 thou/uL (4.8-10.8)
[2020-07-17] MEDS: Piperacillin/Tazobactam 2.25 GM in Sodium Chloride 0.9% 100 ML IVPB SCH ×4 (06:03→23:19)
[2020-07-17] MEDS: Furosemide 100 MG/10 ML VIAL IVPB SCH ×2 (06:04→13:43)
[2020-07-17] MEDS: hydrALAZINE 25 MG TAB PO SCH ×3 (06:04→21:23)
[2020-07-17] MEDS: diphenhydrAMINE 25 MG CAP PO PRN (06:07)
[2020-07-17] MEDS: Mometasone 200 MCG/Formoterol 5 MCG 120 PUFF INHALER INH SCH ×2 (07:43→17:58)
--- NOTE | 2020-07-17 08:42 | PRG ---
DATE OF SERVICE: 07/16/2020 SERVICE: [facility]. SUBJECTIVE: Mr. Mart had a variable day. He was able to tolerate PT/OT without difficulties. He said that he is breathing easier. He also states that he noticed that his abdomen now is softer, is less distended. He noticed the legs have gone down a bit in terms of swelling, however, there seemed to be quite a disagreement yesterday between the patient and granddaughter and hospitalist. Now the primary care team has been switched to Dr. Jesús Shipman. Mr. Mart says that watermaster bolton, he wants to go to a rehabilitation facility. REVIEW OF SYSTEMS: GENERAL: There is no fever, chills, or productive cough. HEENT: There is no change in vision, hearing, or swallowing. He has chronic hard of hearing. PULMONARY: Please see HPI. CARDIAC: There is no chest pain, palpitations, or syncope. GI: He is able to eat. There is no nausea, vomiting, or diarrhea. : He has a De catheter. MUSCULOSKELETAL: He has some left hip discomfort. He says this is not bad. INTEGUMENT: There are no complaints of new skin breakdown. NEUROLOGIC: There are no focal deficits or weaknesses. MEDICATIONS: That have cardiac effect include: 1. Albuterol/ipratropium nebs every 4 hours. 2. Atorvastatin 20 mg at bedtime. 3. Daptomycin 500 mg once every other day. 4. Dobutamine currently at 2.5 mcg/kg/minute. 5. Milrinone currently at 0.375 mcg/kg/minute. 6. Furosemide at 40 mg IV b.i.d. 7. Gabapentin 100 mg b.i.d. 8. Hydralazine 25 mg q.8 hours. 9. Magnesium oxide 400 mg daily. 10. Toprol-XL 12.5 mg b.i.d. 11. Dulera 200/5 mcg combination 2 puffs b.i.d. 12. Zosyn 2.25 g q.6 hours. 13. Prednisone at 10 mg daily. 14. Flomax 0.4 mg daily. PHYSICAL EXAMINATION: Telemetry was reviewed. He is predominantly in sinus rhythm. Sinus tachycardia has a different morphology P wave, so he has a wandering pacemaker or multi-atrial tachycardic at times. He has one 3-beat wide-complex that was irregular. LATEST VITAL SIGNS: Heart rate 94, blood pressure 138/82. GENERAL: He is alert and conversational, reclining comfortably in bed. He appeared to be quite energetic this morning, wanted to talk at length. HEENT: Show EOMI. Oropharynx is benign with moist mucosa. NECK: His JVP is elevated about 12 cm. PULMONARY: He has distant breath sounds. There is good air movement in bilateral upper lung zhou. He has a slight crackle at the left base and there is not much wheezing today at all. CARDIAC: Regular rhythm, a little tachycardic at times. Normal S1 and S2. There is 2/6 holosystolic murmur at the left sternal border. ABDOMEN: Soft, large, nontender. Positive bowel sounds. There is some pitting edema about his abdomen and his back. EXTREMITIES: There is pitting edema in his thighs. There is greater than 1.5 cm pitting edema from his feet up towards knees. This is actually better than last week. It is much softer. Last week, it was tense, was difficult to even push. His 24 hour ins and outs are 1840 in and 3325 out with net negative 1485. LABORATORY VALUES: This morning are white cell count 12.3, hemoglobin 9.4, hematocrit 29.2, and platelets at 203. His chemistry shows sodium 132, potassium 3.5, chloride 106, bicarb 22, BUN has decreased some more at 54, and creatinine is stable at 2.5, his magnesium 1.9. ASSESSMENT: 79-year-old gentleman continue to have steady net negative urine output to decrease volume status and maintaining his renal function. This required a combination of milrinone 0.375 mcg/kg/minute and dobutamine at 2.5 mcg/kg/minute. Ideally, we will consolidate this to milrinone alone. However, his renal dysfunction prevents us from up titrating milrinone. Thus, dobutamine was added. Currently, this combination plus Lasix 60 mg IV b.i.d. is sufficient to give net negative about 1.5 L per day without impacting his renal function. This will need to be sustained for a long time. If he is being transferred, then we will make an attempt at consolidating down to milrinone by weaning off dobutamine. Increasing milrinone although that would be a risk. It is an acceptable risk. He will be converting from IV diuretics to oral diuretics to support transfer to rehab facility. He was originally admitted for septic left hip joint. He underwent surgery the fourth time and is on IV antibiotics for this. He also has severe chronic obstructive pulmonary disease that requires maintenance steroid dose. I appreciate Dr. Shipman being on board to take care of chronic obstructive pulmonary disease. 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 He will likely need long-term milrinone therapy to augment the right ventricle and decrease his PA pressure to support his cardiac output to rest of the body. RECOMMENDATIONS: 1. Continue dobutamine at 2.5 mcg/kg/minute. 2. Continue milrinone at 0.375 mcg/kg/minute. 3. Supplement potassium 40 mEq one dose now. 4. Increase his magnesium supplementation to 400 mg twice a day. 5. Ensure that his labs are checked every morning. It has been a pleasure of taking care of Mr. Mart. If you have any questions, please give me a call. Visitation time is about 35 minutes. This included personally performing history and physical, reviewing data, coordinating care, and direct patient interaction. Job ID: [id number] MTDD
[2020-07-17] MEDS: guaiFENesin ER 600 MG TAB PO SCH ×2 (09:59→21:23)
[2020-07-17] MEDS: Ferrous Gluconate 324 MG TAB PO SCH ×2 (09:59→21:23)
[2020-07-17] MEDS: Fluconazole 100 MG TAB PO SCH (10:00)
[2020-07-17] MEDS: Magnesium Oxide 400 MG TAB PO SCH ×2 (10:00→21:23)
[2020-07-17] MEDS: predniSONE 20 MG TAB PO SCH (10:00)
[2020-07-17] MEDS: Gabapentin 100 MG CAP PO SCH ×2 (10:00→21:24)
[2020-07-17] MEDS: Senokot S 8.6-50 MG TAB PO SCH ×2 (10:02→21:24)
[2020-07-17] MEDS: Tamsulosin HCl 0.4 MG CAP PO SCH (10:02)
[2020-07-17] MEDS: Fluticasone Propionate Nasal Spray 16 gm Bottle NASAL SCH (10:03)
[2020-07-17] MEDS: Multivitamin W/ Minerals 1 TAB PO SCH (10:03)
[2020-07-17] MEDS: Nystatin Powder 15 GM BOT TOP SCH ×2 (10:12→21:24)
--- NOTE | 2020-07-17 11:45 | PRG ---
DATE OF SERVICE: 07/17/2020 SUBJECTIVE: Mr. Mart was seen this morning during a.m. rounds. He remains on drips for cardiac reasons. He has no complaints related to his hip. OBJECTIVE: VITAL SIGNS: Stable. GENERAL: The patient is awake and alert. He is in no apparent distress. He is pleasant and cooperative today. MUSCULOSKELETAL: Evaluation of his left hip shows well-healed surgical wound. There is no surrounding erythema. Distal neurovascular status is intact. IMPRESSION: The patient is over a month out from a revision of left hip hemiarthroplasty. He continues to have multiple medical issues and has remained in-house due to this. We will continue to follow along with his care. Job ID: [id number]
[2020-07-17] MEDS: Milrinone Lactate/D5W 20 MG in Premix Bag 1 BAG IV SCH ×3 (12:39→23:00)
[2020-07-17] MEDS: DAPTOmycin 500 MG in Sodium Chloride 0.9% 100 ML IVPB SCH (12:51)
[2020-07-17] MEDS ORDERED: methylPREDNISolone Sod Succ 40 MG VIAL IVP SCH (14:15)
--- NOTE | 2020-07-17 14:17 | PRG ---
DATE OF SERVICE: 07/17/2020 SUBJECTIVE: Manuel Mart is in no distress. He is little more bronchospastic today. SUBJECTIVE: VITAL SIGNS: Heart rate is 99, respiratory rate 16, oximetry is 94. LUNGS: Remarkable for diffuse small wheezes. HEART: Regular rhythm. ABDOMEN: Soft. IMPRESSION AND PLAN: Chronic obstructive pulmonary disease with recurrent bronchospasm with decrease his steroids. We will increase his prednisone to get an extra dose of Medrol today. Job ID: [id number]
[2020-07-17] MEDS ORDERED: Cholecalciferol 1,000 UNITS (25 MCG) TAB PO SCH (15:30)
[2020-07-17] MEDS: Cholecalciferol (Vitamin D3) 400 UNITS TAB PO SCH (15:39)
[2020-07-17] MEDS: Sildenafil Citrate 20 MG TAB PO SCH ×2 (15:49→21:25)
[2020-07-17] MEDS: Atorvastatin Calcium 20 MG TAB PO SCH (21:23)
[2020-07-18 04:20] LABS: #Lymphocytes 0.3 thou/uL (1.20-3.40); #Monocytes 0.2 thou/uL (0.11-0.59); %Eosinophils 0.1 % (0.0-10.0); %Lymphocytes 4.1 % (21.0-51.0); %Monocytes 2.8 % (0.0-10.0); %Neutrophils 93.1 % (42.0-75.0); Hemoglobin 8.9 g/dL (14.0-18.0); Mean Corpuscular HGB CONC 31.4 g/dL (32.0-36.0); Mean Corpuscular Hemoglobin 28.9 pg (27.0-31.0); Mean Corpuscular Volume 92.2 fL (78.0-98.0); Mean Platelet Volume 9.4 fL (7.4-10.4); Platelet Count 176 thou/uL (130-400); RBC Distribution Width 18.5 % (11.5-14.5); Red Blood Cell (RBC) Count 3.06 mill/uL (4.70-6.10); White Blood Cell (WBC) Count 6.4 thou/uL (4.8-10.8)
[2020-07-18 04:40] LABS: Anion Gap 16 mmol/L (10-20); BUN (Urea Nitrogen) 57 mg/dL (8.4-25.7); Calc. Creatinine Clearance 30 mL/min (70-130); Calcium 7.9 mg/dL (7.8-10.44); Carbon Dioxide 21 mmol/L (23-31); Chloride 105 mmol/L (98-107); Estimated GFR-MDRD 23; Glucose 229 mg/dL (83-110); Magnesium 1.9 mg/dL (1.6-2.6); Potassium 3.7 mmol/L (3.5-5.1); Sodium 138 mmol/L (136-145)
[2020-07-18] MEDS: Piperacillin/Tazobactam 2.25 GM in Sodium Chloride 0.9% 100 ML IVPB SCH ×3 (05:22→17:37)
[2020-07-18] MEDS: hydrALAZINE 25 MG TAB PO SCH ×3 (05:22→20:36)
[2020-07-18] MEDS: Furosemide 100 MG/10 ML VIAL IVPB SCH (05:31)
[2020-07-18] MEDS: Mometasone 200 MCG/Formoterol 5 MCG 120 PUFF INHALER INH SCH ×2 (07:01→19:37)
--- NOTE | 2020-07-18 07:47 | PRG ---
DATE OF SERVICE: 07/17/2020 SERVICE: [facility]. SUBJECTIVE: Mr. Mart had a good day. He walked with PT. PT reported that he was able to walk 40 feet twice. Then, he sat back down. He said that he is breathing fairly easily and that he also slept overnight with BiPAP. He feels like that water is coming off his hips and thighs a bit. There are no new complaints. REVIEW OF SYSTEMS: GENERAL: There is no fever, chills, or productive cough. HEENT: There is no change in vision, hearing, or swallowing. However, he is chronically hard of hearing. PULMONARY: He has chronic shortness of breath. He does not believe it is any worse, perhaps a little better. CARDIAC: There is no palpitation or chest pain. GI: There is no nausea, vomiting, or diarrhea. There is also no report of bloody stools. : He has a De catheter. MUSCULOSKELETAL: There is no complaint of muscle or joint pains this morning. INTEGUMENT: There are no new complaints of skin breakdown. NEUROLOGIC: There are no new focal deficits or weaknesses. MEDICATIONS: Medications that may have cardiac effect include: 1. Albuterol/ipratropium nebs every 4 hours. 2. Atorvastatin 20 mg at bedtime. 3. Daptomycin 500 mg q.48 hours. 4. Dobutamine at 2.5 mcg/kg per minute. 5. Fluconazole 200 mg daily. 6. Furosemide at 60 mg IV b.i.d. 7. Hydralazine 25 mg p.o. q.8 hours. 8. Magnesium oxide 400 mg b.i.d. 9. Toprol-XL at 12.5 mg b.i.d. 10. Milrinone 0.375 mcg/kg per minute. 11. Dulera at 200 mcg/5 mcg combination 2 puffs b.i.d. 12. Zosyn at 2.25 g IV q.6 hours. 13. Prednisone at 10 mg daily. 14. Flomax at 0.4 mg daily. Telemetry was reviewed. He is in predominant sinus rhythm. However, he has a change in morphology, so he has a wandering pacemaker. There are occasional PVCs. Other than that, there were no concerning arrhythmias. PHYSICAL EXAMINATION: LATEST VITAL SIGNS: Heart rate about 98, blood pressure 135/66. GENERAL: He is alert and conversational. He is reclining comfortably in bed. He says he is missing the breakfast. HEENT: EOMI. Oropharynx benign with moist mucosa. NECK: JVP is elevated about 13 cm with positive hepatojugular reflux. PULMONARY: There is slow air movement with bilateral wheezing at the bases, this is worse than yesterday. CARDIAC: Regular rate and rhythm, sometimes tachycardic. There is some occasional irregularity. There is 2/6 holosystolic murmur near the apex. ABDOMEN: Soft, nontender. It is distended. There is some pitting edema along the abdominal folds and pitting edema at hips. However, it is decreasing. EXTREMITIES: He has at least 1.5 cm pitting edema from the feet towards his knees. However, this is actually a slight decrease, and his lower legs were not as tense, and it is soft. His 24-hour I's and O's; he had 1884 in and 3425 out with net negative of 1540 mL. He has negative loss of fluid again. He is having effective diuresis. LABORATORY AND DIAGNOSTIC DATA: Last laboratory values; white cell count 12.9, hemoglobin 9.4, and platelets 195. His chemistry shows sodium 140, potassium 3.5, chloride 108, bicarb 20, BUN 53, creatinine is 2.54. His BNP is decreased a little bit from 1107 down to 999. ASSESSMENT: 79-year-old gentleman continued to suffer from multitudes of problems. He was originally admitted for left hip septic joint. He has undergone a left hip replacement. He is on antibiotics for this. He also has severe chronic obstructive pulmonary disease that seems to be quite steroid dependent. His wheezing is a little bit worse this morning. He also has cor pulmonale, right heart failure that is causing severe amount of edema. He also has a cardiorenal syndrome due to not enough cardiac output to his kidneys. He is in volume overloaded state. Fortunately for 3 days in a row now, he has been net negative at least 1.5 L per day. This is probably the best rate that we can maintain without harming his kidneys. Please see the following for my recommendations for today. RECOMMENDATIONS: 1. Start sildenafil 5 mg p.o. t.i.d. This is meant to decrease his pulmonary resistance, hopefully by doing that would improve his cardiac output a little bit more. 2. Stop Toprol-XL, so that will allow dobutamine to work better and also decrease amount of wheezing. 3. I will inform the record producer about the increased wheezing. Appreciate Dr. Shipman taking over this case. 4. He will need inotropic support for net negative. Eventually, we can consolidate down to just 1 drip of milrinone. I believe the patient will need milrinone chronically to have slow sustained diuresis over and prevent fast reaccumulation. He will need to have a facility that is willing do this. It has been a pleasure taking care of Mr. Mart. If you have any questions, give me a call. This visit took 35 minutes. This includes personally performing H and P, reviewing the data, coordinating care, and direct patient interaction, which is greater than 50% of effort. Job ID: [id number] MTDD
[2020-07-18] MEDS: predniSONE 20 MG TAB PO SCH ×2 (08:33)
[2020-07-18] MEDS: Cholecalciferol 1,000 UNITS (25 MCG) TAB PO SCH (08:34)
[2020-07-18] MEDS: Magnesium Oxide 400 MG TAB PO SCH ×2 (08:34→20:29)
[2020-07-18] MEDS: Multivitamin W/ Minerals 1 TAB PO SCH (08:34)
[2020-07-18] MEDS: guaiFENesin ER 600 MG TAB PO SCH ×2 (08:34→20:29)
[2020-07-18] MEDS: Ferrous Gluconate 324 MG TAB PO SCH ×2 (08:34→20:29)
[2020-07-18] MEDS: Tamsulosin HCl 0.4 MG CAP PO SCH (08:34)
[2020-07-18] MEDS: Gabapentin 100 MG CAP PO SCH ×2 (08:35→20:29)
[2020-07-18] MEDS: Sildenafil Citrate 20 MG TAB PO SCH ×3 (08:35→20:35)
[2020-07-18] MEDS: Nystatin Powder 15 GM BOT TOP SCH ×2 (08:36→20:29)
[2020-07-18] MEDS: Fluticasone Propionate Nasal Spray 16 gm Bottle NASAL SCH (08:37)
[2020-07-18] MEDS: Fluconazole 100 MG TAB PO SCH (08:42)
[2020-07-18] MEDS: Milrinone Lactate/D5W 20 MG in Premix Bag 1 BAG IV SCH ×2 (09:16→18:36)
--- NOTE | 2020-07-18 09:38 | PRG ---
DATE OF SERVICE: 07/18/2020 Mr. Mart is afebrile. Heart rate is 96 to 100, blood pressure 140/67, respiratory rates in the teens, oximetry is 95% on nasal cannula, blood pressure 136/71. Lungs are clear. He says he does not feel as good as he felt yesterday, but I do not find any exam findings that would have explained that. His intake and output negative 1540. His renal function continues to be more or less tolerate diuresis. His creatinine yesterday was 2.54, it is 2.65 today which is statistically unchanged. We will continue supportive care. His COPD appears to be stable. He will probably need to be on 20 mg alternating with 10 mg of prednisone every other day as a maintenance dose at least for now. He started wheezing on 10 mg a day. Job ID: [id number]
[2020-07-18] MEDS ORDERED: Magnesium 2 GM/50 ML 2 GM in Premix Bag 1 BAG IVPB SCH (10:30)
[2020-07-18] MEDS ORDERED: Potassium Chloride 20 MEQ TAB PO SCH (10:30)
[2020-07-18] MEDS: Senokot S 8.6-50 MG TAB PO SCH ×2 (10:49→20:30)
[2020-07-18] MEDS: DOBUTamine 500 mg/250 ml 250 ML IVPB SCH (11:36)
[2020-07-18] MEDS: Bumetanide 1 MG/4 ML VIAL IVP SCH ×2 (13:17→21:00)
[2020-07-18] MEDS: Albumin 25% 25 GM/100 ML BOT IVPB SCH ×2 (13:17→18:26)
--- NOTE | 2020-07-18 15:02 | PRG ---
DATE OF SERVICE: 07/18/2020 SUBJECTIVE: Mr. Mart had a variable day yesterday. He said PT did not come by, so he did not get out of bed to walk yesterday. He said he felt some shortness of breath twice. Other than that, he felt okay. Overall, he still thinks that he is losing a bit of fluid from his abdomen and his upper thighs. REVIEW OF SYSTEMS: GENERAL: There is no fever, chills, or productive cough. HEENT: There is no change in vision, hearing, or swallowing. He has chronic hard of hearing. PULMONARY: Please see HPI. CARDIAC: There are no complaints of chest pain, palpitations, or syncope. GI: There is no nausea, vomiting, or diarrhea. : He is on a De catheter. MUSCULOSKELETAL: He is not complaining of back or joint pains today. INTEGUMENT: There is no complaint of new skin breakdowns. NEUROLOGIC: There are no complaints of focal deficits or weaknesses. MEDICATIONS: That have cardiac effect include: 1. Albuterol and ipratropium nebs q.4 h. 2. Lipitor 20 mg nightly. 3. Daptomycin at 500 mg every 48 hours. 4. Dobutamine currently at 2.5 mcg/kg/minute. 5. Milrinone 0.375 mcg/kg per minute. 6. Fluconazole 200 mg daily. 7. Furosemide 60 mg IV b.i.d. 8. Neurontin 100 mg b.i.d. 9. Hydralazine 25 mg q.8 h. 10. Magnesium oxide 500 mg b.i.d. 11. Dulera 200 mcg/5 mcg inhaler two puffs twice a day. 12. Protonix 400 mg b.i.d. 13. Zosyn 2.25 g q.6 h. 14. Prednisone alternating days a 10 and 20 mg each day. 15. Sildenafil 5 mg p.o. t.i.d. 16. Flomax 0.4 mg daily. DIAGNOSTIC STUDIES: Telemetry was reviewed. He is mainly in sinus rhythm, sinus tachycardia. He has different P-wave morphologies. This morning, there is one episode where he had 3 beats of wide-complex. Otherwise, there are no other arrhythmias. PHYSICAL EXAMINATION: VITAL SIGNS: Heart rate 98 and blood pressure 137/62. GENERAL: He is alert and conversational, reclining in bed. He said he ate a good breakfast. HEENT: EOMI. Oropharynx is benign with moist mucosa. NECK: JVP is elevated at least 14 cm. PULMONARY: Breath sounds are distant, they are moving. He still has expiratory wheezes down at the bases. CARDIAC: Tachycardia, mostly regular rhythm. There is occasional irregularity. There is 2/6 holosystolic murmur at the left sternal border and also at the apex. ABDOMEN: Soft and nontender, but is distended. EXTREMITIES: There is a pitting edema about his hips and thighs and there is about 1.5 cm pitting edema on the feet on up towards knees; however, his calves are much softer than the last week. His 24-hour input and output overnight 1,963 in and 1,975 out, so he is not net negative anymore. it is now even. LABORATORY VALUES: White cell count 6.4, hemoglobin 8.9, and platelets are 176. His chemistry shows sodium 138, potassium 3.7, chloride 105, bicarbonate 21, BUN 57, and creatinine at 3.65. His magnesium 1.9. ASSESSMENT: 79-year-old gentleman has a multitude of difficult problems. He was originally admitted for septic left hip. This is the 4th operation. He underwent left hip replacement and he is on antibiotic for the septic joint. Right now, he is not complaining about that, perhaps this is improving. He has severe COPD, which steroid dependent. He is now on alternating 10/20 of prednisone. 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 He is no longer net negative. His BUN and creatinine are both climbing slightly. At this point, I feel like that we need to be aggressive in removing fluid for 2 days and afterwards consolidate. It is hope that by lower his CVP this kidneys could get better. There is also some chance that he could have had a new GI bleed in the last week, a similar event happened, so we will need to follow his CBC to look for his bloody stools again. Please see the following for my recommendations. RECOMMENDATIONS: 1. Increase dobutamine to 5 mcg/kg/minute for now. 2. Stop Lasix. 3. Start Bumex 2 mg IV q.8 h. at least for one day, perhaps 2 days. 4. Please give albumin 25 g IV q.6 h. 5. K-Dur 40 mEq p.o. one dose now. 6. Please give magnesium sulfate 2 g IV, one dose now. The combination of K-Dur and magnesium should quiet down the risk of arrhythmia. 7. Please ensure that the fluid restriction at 1800 mL per day is enforced. This is a very difficult case. I will do whatever I can to support fluid removal, renal preservation as best as possible. His overall prognosis remains difficult. It has been a pleasure taking care of Mr. Mart. If you have any questions, please give me a call. The total visitation time is felt 35 minutes. This includes personally performing history and physical, reviewing data, coordinating care with other physicians and direct patient interaction. Job ID: [id number] MTDD
[2020-07-18] MEDS: diphenhydrAMINE 25 MG CAP PO PRN (20:28)
[2020-07-18] MEDS: Acetaminophen 325 MG TAB PO PRN (20:28)
[2020-07-18] MEDS: Atorvastatin Calcium 20 MG TAB PO SCH (20:29)
[2020-07-19] MEDS: Piperacillin/Tazobactam 2.25 GM in Sodium Chloride 0.9% 100 ML IVPB SCH ×4 (00:22→18:55)
[2020-07-19] MEDS: Albumin 25% 25 GM/100 ML BOT IVPB SCH ×2 (00:23→05:26)
[2020-07-19] MEDS: Milrinone Lactate/D5W 20 MG in Premix Bag 1 BAG IV SCH ×3 (03:59→22:30)
[2020-07-19 05:13] LABS: Anion Gap 17 mmol/L (10-20); BUN (Urea Nitrogen) 64 mg/dL (8.4-25.7); Calc. Creatinine Clearance 29 mL/min (70-130); Calcium 8.3 mg/dL (7.8-10.44); Carbon Dioxide 21 mmol/L (23-31); Chloride 105 mmol/L (98-107); Estimated GFR-MDRD 22; Glucose 155 mg/dL (83-110); Magnesium 2.4 mg/dL (1.6-2.6); Potassium 3.9 mmol/L (3.5-5.1); Sodium 139 mmol/L (136-145)
[2020-07-19 05:14] LABS: #Lymphocytes 0.6 thou/uL (1.20-3.40); #Monocytes 0.5 thou/uL (0.11-0.59); #Neutrophils 9.3 thou/uL (1.40-6.50); %Basophils 0.2 % (0.0-1.0); %Eosinophils 0.1 % (0.0-10.0); %Lymphocytes 5.8 % (21.0-51.0); %Monocytes 4.9 % (0.0-10.0); Hemoglobin 8.3 g/dL (14.0-18.0); Mean Corpuscular HGB CONC 30.7 g/dL (32.0-36.0); Mean Corpuscular Hemoglobin 28.9 pg (27.0-31.0); Mean Corpuscular Volume 94.3 fL (78.0-98.0); Platelet Count 180 thou/uL (130-400); RBC Distribution Width 18.4 % (11.5-14.5); Red Blood Cell (RBC) Count 2.88 mill/uL (4.70-6.10); White Blood Cell (WBC) Count 10.5 thou/uL (4.8-10.8)
[2020-07-19] MEDS: hydrALAZINE 25 MG TAB PO SCH ×3 (05:25→20:59)
[2020-07-19] MEDS: Bumetanide 1 MG/4 ML VIAL IVP SCH ×2 (05:26→14:49)
[2020-07-19] MEDS: DOBUTamine 500 mg/250 ml 250 ML IVPB SCH (05:28)
[2020-07-19] MEDS: Mometasone 200 MCG/Formoterol 5 MCG 120 PUFF INHALER INH SCH ×2 (07:10→18:20)
[2020-07-19] MEDS: Cholecalciferol 1,000 UNITS (25 MCG) TAB PO SCH (08:13)
[2020-07-19] MEDS: Gabapentin 100 MG CAP PO SCH ×2 (08:13→20:58)
[2020-07-19] MEDS: Tamsulosin HCl 0.4 MG CAP PO SCH (08:13)
[2020-07-19] MEDS: Fluconazole 100 MG TAB PO SCH (08:13)
[2020-07-19] MEDS: guaiFENesin ER 600 MG TAB PO SCH ×2 (08:13→20:58)
[2020-07-19] MEDS: Multivitamin W/ Minerals 1 TAB PO SCH (08:13)
[2020-07-19] MEDS: Magnesium Oxide 400 MG TAB PO SCH ×2 (08:13→21:42)
[2020-07-19] MEDS: predniSONE 20 MG TAB PO SCH (08:14)
[2020-07-19] MEDS: Ferrous Gluconate 324 MG TAB PO SCH (08:14)
[2020-07-19] MEDS: Senokot S 8.6-50 MG TAB PO SCH ×2 (08:14→20:58)
[2020-07-19] MEDS: Fluticasone Propionate Nasal Spray 16 gm Bottle NASAL SCH (08:14)
[2020-07-19] MEDS: Sildenafil Citrate 20 MG TAB PO SCH ×2 (08:15→20:59)
[2020-07-19] MEDS: Nystatin Powder 15 GM BOT TOP SCH ×2 (08:15→21:56)
[2020-07-19] MEDS ORDERED: DOBUTamine 500 mg/250 ml 250 ML IVPB SCH (09:15)
[2020-07-19] MEDS ORDERED: Bumetanide 1 MG/4 ML VIAL IVP SCH (11:00)
[2020-07-19] MEDS: Acetaminophen 325 MG TAB PO PRN ×2 (12:25→22:04)
[2020-07-19] MEDS ORDERED: Sildenafil Citrate 20 MG TAB PO SCH ×2 (14:00→16:15)
[2020-07-19] MEDS: Mag-Al 1200 mg/1200 mg/30 ML UDCUP PO PRN (14:47)
[2020-07-19] MEDS: DAPTOmycin 500 MG in Sodium Chloride 0.9% 100 ML IVPB SCH (14:48)
--- NOTE | 2020-07-19 14:48 | PRG ---
DATE OF SERVICE: 07/19/2020 SUBJECTIVE: Mr. Mart is not doing well. He is short of breath. He is very volume overloaded, complains of epigastric pain. OBJECTIVE: VITAL SIGNS: His blood pressure is high at 153/75, pulse is over 100. LUNGS: Some expiratory wheezing. CARDIAC: Normal S1, normal S2. ABDOMEN: Distended. EXTREMITIES: There is severe edema. ASSESSMENT: 1. Congestive heart failure, diastolic. 2. Right heart failure. 3. Recurrent anemia. PLAN: 1. Agree with packed red blood cells. 2. Agree with diuresis. 3. Agree with Dr. Fowler we need to start talking about hospice with this unfortunate gentleman. 4. We will stop iron and give him intravenous iron tomorrow if he is iron deficient. Job ID: [id number] [facility]
[2020-07-19] MEDS ORDERED: Potassium Chloride 20 MEQ TAB PO SCH (15:30)
--- NOTE | 2020-07-19 16:11 | PRG ---
DATE OF SERVICE: 07/19/2020 SERVICE: [facility] Failure [facility]ing [facility]. SUBJECTIVE: Mr. Mart did not do so well. He said he did not feel as good. He also developed epigastric pain. Because of that, it seems like that his urine output has decreased despite increase in diuretics of Bumex 2 mg three times a day. The nurses also reported that he has a black tarry like stool. With up titrating the dobutamine, his heart rate did go up. He has ectopy. There was once short run of 5-beat wide-complex tachycardia. However, his outlook is still good. He wants to do whatever he can to get better. REVIEW OF SYSTEMS: GENERAL: There is no fever, chills, or productive cough. HEENT: There is no change in vision, hearing, or swallowing. He is hard of hearing. PULMONARY: He actually said that he is breathing well. CARDIAC: He does not complain of palpitation, chest pain or syncope. GI: Please see HPI. He has epigastric pain. : He has a De catheter. MUSCULOSKELETAL: He is not complaining of pain today. INTEGUMENT: There is no complaint of new skin breakdown. NEUROLOGIC: There are no focal deficits or weaknesses. MEDICATIONS: Include, 1. Albuterol. 2. Ipratropium nebs q.4 hours. 3. Atorvastatin 20 mg at bedtime. 4. Bumex 2 mg IV q.8 hours. 5. Daptomycin at 500 mg every 48 hours. 6. Dobutamine at 5 mcg/kg/minute. 7. Fluconazole 20 mg daily. 8. Gabapentin 400 mg b.i.d. 9. Hydralazine 25 mg q.8 hours. 10. Magnesium oxide 400 mg b.i.d. 11. Milrinone 0.375 mcg/kg/minute. 12. Dulera 200 mcg/5 mcg combination two puffs b.i.d. 13. Zosyn at 2.25 g IV q.6 hours. 14. Prednisone 20 mg daily. 15. Sildenafil at 5 mg p.o. t.i.d. 16. Flomax 0.4 mg daily. DIAGNOSTIC STUDIES: Telemetry was reviewed. It has a different P-wave, it is a combination of sinus rhythm, sinus tachycardia, multifocal atrial tachycardia and there was one 5-beat run of wide-complex tachycardia, that was brief. In general, his heart rate ranged about 100-110 range, sometimes up to 120. PHYSICAL EXAMINATION: VITAL SIGNS: Heart rate 94, blood pressure 152/67. Actually, his oxygen saturation is between 95% to 100% on 4 L nasal cannula, so he is actually doing much better in terms of that perspective. HEENT: Show EOMI. Oropharynx is benign with moist mucosa. NECK: His JVP is elevated about 13 cm. PULMONARY: Breath sounds are distant. He has good air movement. He is not wheezing today, so this is definite improvement from yesterday. CARDIAC: Tachycardic with sometime irregularities. There are normal S1, S2. There is 2/6 holosystolic murmur at the apex. ABDOMEN: Mildly distended. He points to an epigastric area, when I palpate or push in the mid epigastric region, it will cause pain. EXTREMITIES: He has pitting edema about the hip. He has about 1.5 cm pitting edema from feet up toward his knee. There is some pitting edema, it is felt, however, his edema around the lower extremities is loose, and you can actually see and feel his tibia, so there may be a bit less edema despite the documentation. His documentation showed 2480 mL in and 1750 out. LABORATORY DATA: White cell count 10.5, hemoglobin dropped down to 8.3, platelets 180. Sodium is 139, potassium 3.9, chloride 105, bicarb 21, BUN 64, creatinine 2.77. ASSESSMENT: 79-year-old gentleman has probable recurrence of upper gastrointestinal bleed. Combination of black stool, drop in hemoglobin, and epigastric pain supports this premise. He presented in the same manner on the last gastrointestinal bleed. Losing hemoglobin will cause his body to really retain fluids, it would be very difficult to diurese. He also has a little bit too much ectopy with titration up of the dobutamine, so this will need to be backed off. I will attempt to compensate with decreasing the pulmonary vascular resistance. Please see the following for my recommendations. RECOMMENDATIONS 1. Please transfuse 1 unit of blood, this should help with his current condition. It will also help with his intravascular volume to increase effective diuresis. It may help stop the bleeding. 2. Decrease dobutamine to 3 mcg/kg/minute. 3. Increase sildenafil to 10 mg p.o. t.i.d. to decrease pulmonary resistance, this may be increased some more tomorrow. 4. Continue with Bumex 2 mg t.i.d. for now. Please transfuse 1 unit right after the third dose of Bumex. 5. This is a grim situation, we are losing ground. He may be heading towards where hospice is his only viable option. If he needs inotropic support during hospice, [facility] will support milrinone and IV diuretics, so that could be done as an outpatient it if comes to that. It has been a pleasure taking care of Mr. Bin Mart. If you have any questions, please give me a call. TIME SPENT: The total visitation time for this visit is 40 minutes. This includes personally performing history and physical, reviewing data, and coordinating his care, and direct patient interaction. Job ID: [id number] MTDD
[2020-07-19] MEDS ORDERED: Amiodarone 150 MG in Dextrose 5% in Water 100 ML IVPB SCH (17:15)
[2020-07-19] MEDS ORDERED: Metolazone 5 MG TAB PO SCH (18:00)
[2020-07-19] MEDS ORDERED: Magnesium Sulfate 3 GM in Sodium Chloride 0.9% 100 ML IVPB SCH (18:15)
--- NOTE | 2020-07-19 18:26 | PRG ---
DATE OF SERVICE: 07/19/2020 SUBJECTIVE: Bin Mart continues to wheeze. He said he is not feeling as well. OBJECTIVE: VITAL SIGNS: He is afebrile. Heart rate is 105, respiratory rate is 18, oximetry is 94%, blood pressure 157/77. LUNGS: Remarkable for diffuse wheezes. HEART: Regular rhythm. ABDOMEN: Soft. Intake and outputs, positive 730. LABORATORY STUDIES: White count 10.5, hemoglobin 8.3, platelets 180. Sodium 139, potassium 3.9, chloride 105, bicarb 21, BUN 64, creatinine 2.77. Creatinine on the was 2.5. IMPRESSION: 1. Chronic obstructive pulmonary disease with pulmonary hypertension secondary predominantly to that. 2. Respiratory muscle insufficiency would not have led to a hospitalization years ago, but he has become so deconditioned with all of this is a bigger issue for him. 3. Diastolic heart failure. Given him some magnesium and put him back on IV steroids today, will be moved to the intermediate care unit. I met with the and answered her questions. She is very tearful today. I also talked to her by phone. She was tearful by phone as well. Job ID: [id number]
[2020-07-19] MEDS ORDERED: Furosemide 100 MG/10 ML VIAL SLOW IVP SCH (18:30)
[2020-07-19] MEDS ORDERED: Furosemide 100 MG in Sodium Chloride 0.9% 90 ML IVPB SCH (20:30)
[2020-07-19] MEDS: Atorvastatin Calcium 20 MG TAB PO SCH (20:58)
[2020-07-19] MEDS: methylPREDNISolone Sod Succ 40 MG VIAL IVP SCH (21:41)
[2020-07-19] MEDS ORDERED: HYDROcodone/Acetaminophen 5/325 mg Tablet PO SCH (21:45)
[2020-07-19 21:50] LABS: Anion Gap 20 mmol/L (10-20); BUN (Urea Nitrogen) 68 mg/dL (8.4-25.7); Calc. Creatinine Clearance 28 mL/min (70-130); Calcium 8.3 mg/dL (7.8-10.44); Carbon Dioxide 20 mmol/L (23-31); Chloride 105 mmol/L (98-107); Estimated GFR-MDRD 21; Glucose 158 mg/dL (83-110); Magnesium 2.4 mg/dL (1.6-2.6); Potassium 4.1 mmol/L (3.5-5.1); Sodium 141 mmol/L (136-145)
[2020-07-19] MEDS: Furosemide 100 MG, Admixture Fee 1 EACH in Sodium Chloride 0.9% 90 ML IVPB SCH (23:15)
[2020-07-20] MEDS: Piperacillin/Tazobactam 2.25 GM in Sodium Chloride 0.9% 100 ML IVPB SCH ×4 (00:40→17:33)
[2020-07-20 03:30] LABS: #Lymphocytes 0.3 thou/uL (1.20-3.40); #Monocytes 0.2 thou/uL (0.11-0.59); #Neutrophils 9.5 thou/uL (1.40-6.50); %Eosinophils 0.1 % (0.0-10.0); %Lymphocytes 2.8 % (21.0-51.0); %Monocytes 1.5 % (0.0-10.0); %Neutrophils 95.6 % (42.0-75.0); Hemoglobin 10.2 g/dL (14.0-18.0); Mean Corpuscular HGB CONC 31.3 g/dL (32.0-36.0); Mean Corpuscular Hemoglobin 29.2 pg (27.0-31.0); Mean Corpuscular Volume 93.5 fL (78.0-98.0); Mean Platelet Volume 8.9 fL (7.4-10.4); Platelet Count 171 thou/uL (130-400); RBC Distribution Width 18.6 % (11.5-14.5); Red Blood Cell (RBC) Count 3.48 mill/uL (4.70-6.10); White Blood Cell (WBC) Count 9.9 thou/uL (4.8-10.8)
[2020-07-20 03:52] LABS: Anion Gap 19 mmol/L (10-20); BUN (Urea Nitrogen) 69 mg/dL (8.4-25.7); Calc. Creatinine Clearance 28 mL/min (70-130); Calcium 8.5 mg/dL (7.8-10.44); Carbon Dioxide 20 mmol/L (23-31); Chloride 104 mmol/L (98-107); Estimated GFR-MDRD 21; Glucose 153 mg/dL (83-110); Iron 39 ug/dL (65-175); Magnesium 3.1 mg/dL (1.6-2.6); Potassium 4.1 mmol/L (3.5-5.1); Sodium 139 mmol/L (136-145)
[2020-07-20] MEDS: hydrALAZINE 25 MG TAB PO SCH ×3 (06:37→21:53)
[2020-07-20] MEDS: methylPREDNISolone Sod Succ 40 MG VIAL IVP SCH ×2 (06:37→18:15)
[2020-07-20] MEDS: Sildenafil Citrate 20 MG TAB PO SCH ×3 (06:38→21:53)
[2020-07-20] MEDS: Mometasone 200 MCG/Formoterol 5 MCG 120 PUFF INHALER INH SCH ×2 (07:35→19:27)
[2020-07-20] MEDS: Furosemide 100 MG, Admixture Fee 1 EACH in Sodium Chloride 0.9% 90 ML IVPB SCH ×2 (07:47→17:33)
[2020-07-20] MEDS: Milrinone Lactate/D5W 20 MG in Premix Bag 1 BAG IV SCH ×2 (07:48→17:35)
[2020-07-20] MEDS: Acetaminophen 325 MG TAB PO PRN (08:11)
[2020-07-20] MEDS ORDERED: Potassium Chloride 20 MEQ TAB PO SCH ×2 (08:15→20:30)
[2020-07-20] MEDS: Gabapentin 100 MG CAP PO SCH ×2 (09:39→20:43)
[2020-07-20] MEDS: guaiFENesin ER 600 MG TAB PO SCH ×2 (09:40→20:43)
[2020-07-20] MEDS: Amiodarone 200 MG TAB PO SCH ×2 (09:41→20:43)
[2020-07-20] MEDS: Fluconazole 100 MG TAB PO SCH (09:41)
[2020-07-20] MEDS: Magnesium Oxide 400 MG TAB PO SCH ×2 (09:41→20:42)
[2020-07-20] MEDS: Multivitamin W/ Minerals 1 TAB PO SCH (09:41)
[2020-07-20] MEDS: Senokot S 8.6-50 MG TAB PO SCH ×2 (09:42→20:43)
[2020-07-20] MEDS: Tamsulosin HCl 0.4 MG CAP PO SCH (09:42)
[2020-07-20] MEDS: Cholecalciferol 1,000 UNITS (25 MCG) TAB PO SCH (09:48)
[2020-07-20] MEDS: Nystatin Powder 15 GM BOT TOP SCH ×2 (09:50→20:44)
--- NOTE | 2020-07-20 11:11 | PRG ---
DATE OF SERVICE: 07/20/2020 SERVICE: [facility]. SUBJECTIVE: Mr. Bin Mart had a difficult day, but that became better. This note documents the progressions of entire day. In the morning, he had epigastric pain and dark stool and his hemoglobin dropped down to 8.1. He was transfused. Then, he became more and more short of breath with arrhythmia. He developed nonsustained ventricular tachycardia multiple times about 1:40 p.m. Dobutamine at first titrated down in the morning at 7AM and then was stopped in the afternoon due to ventricular tachycardia. Potassium was supplemented, amiodarone 150 mg IV one dose was eventually given. An urgent bedside echocardiogram was also done. It showed that his right ventricle is severely dilated and hypokinetic. Inferior vena cava was measured about 2.4 cm in diameter to show he has severe amount of volume overload with estimated central venous pressure ~ 15 mmHg. He demonstrated a severe pulmonary hypertension, where the tricuspid regurgitation showed about 70 mmHg when added to his central venous pressure provides estimate of 85 mmHg. Sildenafil was titrated up to 20 mg three times a day. Toprol-XL was temporally used to slow down his atrial ectopy. Due to the crackles heard in the lungs and feeling short of breath, diuresis was also intensified. Metolazone 5 mg oral was given, a loading dose of Lasix was given followed by Lasix drip of 10 mg/hour. His electrolytes were checked and supplement as needed. Since then, overnight he had between 1700 to 2000 mL output. He was able to sleep well. This morning, he says that he feel better. He is more energetic. He feels like that he wants to urinate and he likes that he is urinating into tube so, he is actually happy about that. Possibility of needing dialysis for fluid removal if his kidney shutdown was also discussed. The patient said he had dialysis sessions already twice before he will like to do that, if it comes to it. Meetings took place with his and also his granddaughter. The gravity of situation was explained to them. They both understood. REVIEW OF SYSTEMS: GENERAL: There is no fever, chills, or productive cough. HEENT: There is no change in vision, hearing, or swallowing. He is hard of hearing. PULMONARY: Please see HPI. CARDIAC: Please see HPI. GI: He still complains of epigastric pain sometimes. This will worsen by palpation or pushing in the epigastric region. : He has a De catheter. MUSCULOSKELETAL: There is no new complaints of joint or muscle pains. INTEGUMENT: There is no new skin breakdown. NEUROLOGIC: There are no new focal deficits or weaknesses. MEDICATIONS: Include; 1. Acetaminophen q.4 hours p.r.n. for pain. 2. Albuterol and ipratropium nebs q.4 hours. 3. Atorvastatin 20 mg at bedtime. 4. Vitamin D3. 5. Daptomycin at 500 mg every other day. 6. Fluconazole 200 mg daily. 7. Lasix drip now at 10 mg/hour. 8. Gabapentin 100 mg b.i.d. 9. Hydralazine 25 mg q.8 hours. 10. Magnesium oxide 400 mg b.i.d. 11. Solu-Medrol was just added at 40 mg IV twice a day. 12. Milrinone at 0.375 mcg/kg/minute. 13. Dulera 200 mcg-5 mcg combinations b.i.d. 14. Protonix at 40 mg b.i.d. 15. Zosyn at 2.25 g IV q.6 hours. 16. Sildenafil now at 20 mg q.8 hours. 17. Flomax 0.4 mg daily. PHYSICAL EXAMINATION: Telemetry was reviewed. There were multiple runs of wide-complex tachycardia, most likely ventricular tachycardia on July 19 at 1343 hours. There has been no ventricular tachycardia since then. He still has predominant sinus rhythm. He has multiple P-wave morphology just to suggest multiple origin to be multiple atrial tachycardia. His systolic blood pressure otherwise ranged between 119 to 155. His diastolic blood pressure otherwise ranged between 69 to 88. His oxygen saturation can be quite low at times down to the low 80s. VITAL SIGNS: His current vitals are heart rate 93 and blood pressure 139/80. GENERAL: He is alert and conversational, much more energetic and talks better and less short of breath than yesterday. HEENT: Show EOMI. Oropharynx is benign with moist mucosa. NECK: His JVP is elevated about 13 cm. LUNGS: Worse today. Has decreased breath sounds and there is diffuse wheeze bilaterally. This correspond to his low oxygen saturation. CARDIAC: Tachycardic with occasional irregularities. There is 2/6 holosystolic murmur at the left sternal border. There is also 2/6 holosystolic murmur at the apex. ABDOMEN: Soft. There is some pitting edema that is less so than yesterday. He has reproducible epigastric pain. If we palpate or push on it, it caused pain. He says that is where the source of his pain during the day sometimes. EXTREMITIES: He still has some pitting edema at hips that is less so. He has pitting edema about 1 cm from the feet about 2/[address] toward his knee. However, is less so. Yesterday, the calves are soft, a depth of pitting about 1 cm, but now you can see his tibia, so he has decreased edema overall. LABORATORY DATA: His laboratory values from this morning are white cell count 9.9, hemoglobin 10.2, and platelet 171. His chemistry shows sodium 139, potassium 4.1, chloride 104, bicarb is 20, BUN 69, creatinine 2.91, and glucose of 153. His creatinine is actually a slight improvement from last night. His 24-hour urine output was 925 mL in and 2024 out. Majority of it came out last night, roughly at least 1700 mL. Echocardiogram was reviewed in real-time yesterday afternoon, which is July 19. 1. He has severely dilated right ventricle. 2. Right ventricle is hypokinetic. 3. There is severe tricuspid regurgitation with a transpulmonary gradient of 70 mmHg based on tricuspid regurgitation. 4. He has a dilated IVC at 2.4 cm that does not collapse. 5. The estimated pulmonary systolic blood pressure is 85. Thus, he has severe pulmonary hypertension with hypokinetic right ventricle showing evidence of right heart failure, cor pulmonale. This is worse than what it was before. 6. His LV appeared to be normal size and function. The LVEF is between 60% to 65% with restrictive fillling pattern suggesting grade-3 diastolic dysfunction ASSESSMENT: 79-year-old gentleman had made improvements overnight after a very difficult day. Most likely sequence of events consist of probable gastrointestinal bleeding, rise in pulmonary hypertension, worsening right heart failure that caused ventricular tachycardia, which is worsened by on board of dobutamine. All of these were corrected by decreasing pulmonary arterial resistance with the increasing doses of sildenafil, removing dobutamine, supplementing electrolytes, and initiate a much more aggressive diuresis with a combination of metolazone and Lasix drip. At this point, it is uncertain how long his kidney can sustain this. We will attempt to complete at least 24 hours of volume removal. We will continue to augment the right ventricle with milrinone. We will switch from Toprol-XL to amiodarone. This should have less effect on chronic obstructive pulmonary disease. This was also allowed to restart dobutamine when needed. If his kidney function is much worse then milrinone could no longer be used. At this point, we will need to re-engage Nephrology about consider reason for dialysis in the future. This gentleman was originally admitted for left hip sepsis. He underwent 4 surgeries and had a total left hip replacement, he is on antibiotics for this. The gastrointestinal bleed issue is continuing. His severe chronic obstructive pulmonary disease remains to be very difficult to be addressed. DISCUSSION: His overall prognosis was discussed with his and granddaughter. They understand in general the situation. At this point, long-term [facility] with milrinone drip and IV furosemide may be an option. That will provide patient comfort and function for significant amount of time. RECOMMENDATION: 1. Continue Milrinone 0.375 mcg/kg/minute. 2. Continue Lasix drip at 10 mg/hour. 3. Check labs, BMP, and magnesium at 4 p.m. today, we will supplement electrolytes as needed. 4. Please give K-Dur 20 mEq one dose now. 5. Stop Toprol-XL. 6. Start amiodarone 400 mg p.o. b.i.d. 7. Start sucralfate 1 g three times a day, 1 hour of before meals to help with his epigastric pain. 8. We will re-engage with Nephrology for potential dialysis in the future. It has been a pleasure taking care of Mr. Mart. If you have any questions, please give me a call. The total ICU time is about 70 minutes. This included multiple visits, reading echocardiogram in real time, changing medications and drips, coordinating care with multiple services, counseling with family, and direct patient interaction, including presently performing medical physical exam. Job ID: [id number] [facility]
[2020-07-20] MEDS: Sucralfate 1 GM TAB PO SCH ×2 (11:24→18:15)
[2020-07-20] MEDS: Fluticasone Propionate Nasal Spray 16 gm Bottle NASAL SCH (11:34)
--- NOTE | 2020-07-20 16:50 | PRG ---
DATE OF SERVICE: 07/20/2020 SUBJECTIVE: He says he feels better today. OBJECTIVE: VITAL SIGNS: He is afebrile. Heart rate is 100, blood pressure 129/68, respiratory rates in the 20s. He was placed on high-flow oxygen this morning. We will check a chest x-ray in the morning. LUNGS: Distant, but he has no wheezes today compared to yesterday. HEART: Regular rhythm. ABDOMEN: Soft. IMPRESSION: 1. Chronic obstructive pulmonary disease exacerbation. 2. Diastolic heart failure. 3. Pulmonary hypertension secondary to chronic obstructive pulmonary disease. 4. Extreme deconditioning, which is the biggest problem with his illness and admission. PLAN: Continue current medications. Hopefully, we can wean him back to a nasal cannula soon. Job ID: [id number]
[2020-07-20 18:58] LABS: #Lymphocytes 0.3 thou/uL (1.20-3.40); #Monocytes 0.5 thou/uL (0.11-0.59); #Neutrophils 8.8 thou/uL (1.40-6.50); %Eosinophils 0.1 % (0.0-10.0); %Lymphocytes 2.6 % (21.0-51.0); %Monocytes 5.5 % (0.0-10.0); %Neutrophils 91.8 % (42.0-75.0); Hemoglobin 9.6 g/dL (14.0-18.0); Mean Corpuscular HGB CONC 31.9 g/dL (32.0-36.0); Mean Corpuscular Hemoglobin 29.2 pg (27.0-31.0); Mean Corpuscular Volume 91.7 fL (78.0-98.0); Mean Platelet Volume 9.5 fL (7.4-10.4); Platelet Count 194 thou/uL (130-400); RBC Distribution Width 18.5 % (11.5-14.5); Red Blood Cell (RBC) Count 3.29 mill/uL (4.70-6.10); White Blood Cell (WBC) Count 9.6 thou/uL (4.8-10.8)
[2020-07-20 19:19] LABS: Anion Gap 19 mmol/L (10-20); BUN (Urea Nitrogen) 78 mg/dL (8.4-25.7); Calc. Creatinine Clearance 26 mL/min (70-130); Calcium 8.2 mg/dL (7.8-10.44); Carbon Dioxide 19 mmol/L (23-31); Chloride 103 mmol/L (98-107); Estimated GFR-MDRD 19; Glucose 232 mg/dL (83-110); Magnesium 2.8 mg/dL (1.6-2.6); Potassium 3.7 mmol/L (3.5-5.1); Sodium 137 mmol/L (136-145)
[2020-07-20] MEDS ORDERED: Albumin 25% 25 GM/100 ML BOT IVPB SCH (20:30)
[2020-07-20] MEDS: Atorvastatin Calcium 20 MG TAB PO SCH (20:43)
[2020-07-20] MEDS ORDERED: HYDROcodone/Acetaminophen 5/325 mg Tablet PO SCH (21:30)
[2020-07-21] MEDS: Milrinone Lactate/D5W 20 MG in Premix Bag 1 BAG IV SCH ×2 (02:26→22:12)
[2020-07-21 03:29] LABS: #Lymphocytes 0.3 thou/uL (1.20-3.40); #Monocytes 0.3 thou/uL (0.11-0.59); #Neutrophils 7.1 thou/uL (1.40-6.50); %Basophils 0.2 % (0.0-1.0); %Eosinophils 0.1 % (0.0-10.0); %Lymphocytes 3.3 % (21.0-51.0); %Monocytes 3.7 % (0.0-10.0); %Neutrophils 92.7 % (42.0-75.0); Hemoglobin 9.1 g/dL (14.0-18.0); Mean Corpuscular HGB CONC 31.8 g/dL (32.0-36.0); Mean Corpuscular Hemoglobin 29.2 pg (27.0-31.0); Mean Corpuscular Volume 92.1 fL (78.0-98.0); Mean Platelet Volume 9.3 fL (7.4-10.4); Platelet Count 178 thou/uL (130-400); RBC Distribution Width 18.2 % (11.5-14.5); Red Blood Cell (RBC) Count 3.09 mill/uL (4.70-6.10); White Blood Cell (WBC) Count 7.6 thou/uL (4.8-10.8)
[2020-07-21 03:50] LABS: Anion Gap 18 mmol/L (10-20); BUN (Urea Nitrogen) 85 mg/dL (8.4-25.7); Calc. Creatinine Clearance 25 mL/min (70-130); Calcium 8.4 mg/dL (7.8-10.44); Carbon Dioxide 22 mmol/L (23-31); Chloride 102 mmol/L (98-107); Estimated GFR-MDRD 18; Glucose 192 mg/dL (83-110); Magnesium 2.9 mg/dL (1.6-2.6); Potassium 4.1 mmol/L (3.5-5.1); Sodium 138 mmol/L (136-145)
[2020-07-21] MEDS: hydrALAZINE 25 MG TAB PO SCH ×2 (06:35→13:58)
[2020-07-21] MEDS: methylPREDNISolone Sod Succ 40 MG VIAL IVP SCH ×2 (06:35→18:45)
[2020-07-21] MEDS: Sildenafil Citrate 20 MG TAB PO SCH ×3 (06:36→22:11)
[2020-07-21] MEDS: Mometasone 200 MCG/Formoterol 5 MCG 120 PUFF INHALER INH SCH ×2 (08:05→19:02)
[2020-07-21] MEDS: guaiFENesin ER 600 MG TAB PO SCH ×2 (08:31→22:10)
[2020-07-21] MEDS: Sucralfate 1 GM TAB PO SCH ×3 (08:31→17:15)
[2020-07-21] MEDS: Multivitamin W/ Minerals 1 TAB PO SCH (08:31)
[2020-07-21] MEDS: Fluconazole 100 MG TAB PO SCH (08:31)
[2020-07-21] MEDS: Amiodarone 200 MG TAB PO SCH ×2 (08:31→22:10)
[2020-07-21] MEDS: Magnesium Oxide 400 MG TAB PO SCH ×2 (08:31→22:11)
[2020-07-21] MEDS: Tamsulosin HCl 0.4 MG CAP PO SCH (08:31)
[2020-07-21] MEDS: Cholecalciferol 1,000 UNITS (25 MCG) TAB PO SCH (08:32)
[2020-07-21] MEDS: Gabapentin 100 MG CAP PO SCH ×2 (08:32→22:11)
[2020-07-21] MEDS: Senokot S 8.6-50 MG TAB PO SCH ×2 (08:33→22:12)
--- NOTE | 2020-07-21 08:34 | RAD ---
PORTABLE CHEST: HISTORY: Respiratory distress. COMPARISON: 07/04/2020 study. FINDINGS: Heart size is enlarged. There are atherosclerotic changes of the aorta. Given the differences in [place], the interstitial and parenchymal lung opacities are fairly similar to the previous exam, per haps minimally diminished, but I think this is more technique related. Left-sided PICC line is in pl martin. IMPRESSION: Fairly stable parenchymal lung change. The interstitial changes are slightly less prominent, but ailyn e of this I think is purely technique related. POS: SPENCER
[2020-07-21] MEDS: Fluticasone Propionate Nasal Spray 16 gm Bottle NASAL SCH (08:52)
[2020-07-21] MEDS: Nystatin Powder 15 GM BOT TOP SCH ×2 (08:52→22:11)
[2020-07-21] MEDS ORDERED: Furosemide 100 MG/10 ML VIAL SLOW IVP SCH ×2 (09:00→19:00)
[2020-07-21] MEDS ORDERED: Potassium Chloride 20 MEQ TAB PO SCH (09:00)
--- NOTE | 2020-07-21 12:25 | PRG ---
DATE OF SERVICE: 07/21/2020 SERVICE: Advanced Heart Failure Cardiology Consulting Service. SUBJECTIVE: Mr. Mart had a good day, but there were some difficulties too. He said in general, he is feeling better. He was able to sleep last night and woke up feeling better today. He said he has good strength. However, he had 4 bowel movements yesterday. This is unusual for him. The nurses report that at least one of the bowel movements was a large amount of dark black tarry stool and he did have epigastric pain, said worse yesterday morning, so sucralfate was started and that seemed to help. Now, his epigastric pain is gone. He was on Lasix drip at 10 mg/hour. He was able to sustain that with urine output about 100 mL/h, but his BUN and creatinine were climbing. About 11 p.m. last night, Lasix drip was stopped, the reason why is to preserve his renal function. Since stopping of the Lasix at 11 p.m. last night, he still had about 550 mL of urine output. REVIEW OF SYSTEMS: GENERAL: No fever, chills, productive cough. HEENT: There is no change in vision, hearing, or swallowing. He has chronic hard of hearing. PULMONARY: His breathing is better. Please see HPI. CARDIAC: There is no complaint of palpitation, chest pain, or syncope. GI: Please see HPI. : He has a De catheter. MUSCULOSKELETAL: There are no new complaints of muscle or joint pains. INTEGUMENT: No new complaints of skin breakdown. NEUROLOGIC: There are no new complaints of focal deficits or weaknesses. MEDICATIONS: His current medications that have cardiac effect include; 1. Albuterol and ipratropium nebs every 4 hours. 2. Amiodarone, currently on a loading dose of 400 mg twice a day. 3. Atorvastatin 20 mg at bedtime. 4. Fluconazole 200 mg daily. 5. Gabapentin 100 mg b.i.d. 6. Hydralazine 25 mg q.8 hours. 7. Magnesium oxide 400 mg b.i.d. 8. Solu-Medrol 40 mg IV twice a day, this seemed to help. 9. Milrinone at 0.375 mcg/kg/minute. 10. Sildenafil at 20 mg p.o. q.8 hours. 11. Sucralfate at 1 g t.i.d. before meals. 12. Flomax 0.4 mg daily. PHYSICAL EXAMINATION: Telemetry was reviewed. He is mainly in sinus rhythm. He has different morphology P wave. There is a junctional rhythm. There are PVCs. Thus, he has a mixed bag of rhythm. However, over the last 24 hours, there are no more ventricular tachycardias. VITALS: His systolic blood pressure ranged between 101 to 130, diastolic blood pressure between 57 and 71. His current vitals are heart rate 92, blood pressure 130/60. He is on continuous flow oxygen with oxygen saturation about 94% to 95%. GENERAL: He is alert and conversational. He says he feels better. He is ready to eat breakfast. He said his epigastric pain is pretty much gone today. HEENT: EOMI. Oropharynx is benign with moist mucosa. NECK: JVP is elevated at least 13 cm. At incline, it goes up to his earlobe. PULMONARY: He has better air movement today. There is still slight wheeze, but much less than he did yesterday. There are no crackles today. CARDIAC: Mostly regular rhythm with occasional irregularity. Normal S1, S2. There is 2/6 holosystolic murmur at the left sternal border. There is 2/6 holosystolic murmur at the apex with radiation to the left axilla. ABDOMEN: Soft, nontender, is less distended today. His epigastric pain is very much diminished today. MUSCULOSKELETAL: Hips, there is a slight pitting edema that is much more improved. Thighs, there is a slight pitting edema, this is very much improved. His lower extremity has about 1 cm pitting edema from the feet about fci toward knee. You can definitely see his tibia now, his feet are also very much visible, so this is the least amount of edema I have ever seen. Two sets of 24-hour I-O are; first set of 24 hours is 1286 mL in and 2625 mL out. His second set of 24-hour I-O is 1721 mL in and 1750 mL out. The second set may not be completed because extra 550 mL urine output was just collected. Today's chest x-ray was also reviewed and it show bilateral multifocal infiltrates that resemble more infectious process. He has decreased vascular congestion in comparison to the prior chest x-ray. There is also less infiltrate than the last chest x-ray. He has mild cardiomegaly and small amount of pleural effusion. In general, in comparison to July 04, his chest ray x-ray this morning has less pulmonary edema and less infiltrate. ASSESSMENT: 79-year-old gentleman has been successfully diuresed for 2 days, however, he has reached the limit. Currently, his BUN is 85, creatinine is 3.26. At this point, cannot continue his Lasix IV continuous drip anymore. By his vitals, he is in a much better blood pressure range. He also likely had another bout of GI bleed yesterday. Combination of epigastric pain, multiple bouts of stool including black tarry stool and the hemoglobin dropping from 9.6 down to 9.1 despite net negative suggest that he had other round of GI bleed. Hopefully with the sucralfate on board this will be slowed or stopped. He resides [employer] stage C and also [place] [employer] 3B heart failure with preserved ejection fraction. He has predominant right ventricular failure, cor pulmonale. At this point, he is depending on milrinone to augment his right ventricle. He is also on maximum dose of sildenafil 20 mg three times a day to reduce the pulmonary resistance as much as possible. Dr. Shipman is aggressively treating his COPD with IV steroids and this seemed to have helped. His GI remains to be an ongoing issue. If his hemoglobin drops anymore, his BUN and creatinine will worsen and then it would be difficult if not impossible to pull off fluid. Thus, he will need to be transfused again to keep hemoglobin above 9. For now, we will do a test dose of IV Lasix at 80 mg IV x1 time today to see what type of response he is getting with half and we will maintain current right ventricular systolic therapy. Mr. Mart has host of severe disease that does not lend itself to healing. He has severe COPD and pulmonary hypertension that causes right heart failure. The combination of edematous state and low cardiac output causes renal failure. His GI bleed worsens his situation and also exacerbates his renal failure. He also has septic left hip joint that has been replaced on IV antibiotics. Severity of combination of disease does not lend itself for long-term survival. At this point, the best possible option could be to maximize quality of life. I have encouraged the patient's and his granddaughter to think about this. RECOMMENDATIONS: 1. Continue milrinone at 0.375 mcg/kg/minute. 2. Give Lasix 80 mg IV one dose and carefully measure urine output to see response. Please give potassium chloride at 20 mEq one dose. 3. Please add type and screen to tomorrow morning's labs as he is likely to need transfusion again. 4. I will ask Nephrology to come back on board in case that he ever needs dialysis. Continue amiodarone 400 mg b.i.d. for at least 5 days for loading and after that, we will decrease the dosing. This combination will suppress ventricular tachycardia potential and also keep his known atrial fibrillation potential at bay. He did have atrial fibrillation ablation several times in the past. 5. Please ask PT/OT to come by. Any type of movement, even a few steps of walking can be helpful. It has been a pleasure taking care of Mr. Mart. If any questions, please give me a call. The total visit is about 45 minutes today. This includes personally performing history and physical, reviewing multiple data and reading chest x-ray and coordinating care and direct patient interaction and also family interactions. Job ID: [id number] [facility]
--- NOTE | 2020-07-21 13:06 | PRG ---
DATE OF SERVICE: 07/21/2020 SUBJECTIVE: The patient is seen and examined at the bedside. We were reconsulted by Dr. Fowler for acute kidney injury. The patient apparently having hard time breathing and was moved over to [facility]. He is being treated for COPD as well as worsening heart failure. He had a repeat echo per Dr. Fowler's note, which revealed worsening right-sided heart failure. He was on IV Lasix drip and his renal function got slightly worse and Nephrology was consulted, but the patient is feeling much better with intervention that was done in the last few days. Family was at the bedside. Dr. Fowler also had a discussion about the dialysis and he is willing to try that if we get to that point. He is feeling better today, he is in a good mood, and no fever or chills. No nausea or vomiting. No shortness of breath reported, even though he has baseline short of breath status. OBJECTIVE: GENERAL: This is a well-built male, in no apparent distress. VITAL SIGNS: Temperature 98.9, pulse 97, respiratory rate 20, blood pressure 127/57. HEENT: Atraumatic, normocephalic. NECK: Supple. CV: S1 and S2 heard. RESPIRATORY: Reduced breath sounds. GI: Abdomen is soft. MUSCULOSKELETAL: 2+ edema. DERMATOLOGIC: No skin rash. NEUROLOGICAL: Alert and awake. PSYCHIATRIC: Mood and affect normal. LABORATORY DATA: Hemoglobin is 9.1. Potassium 4.1, BUN is 85, creatinine is 3.26, GFR of 18. Yesterday, creatinine was 3.1, and creatinine has been ranging ASSESSMENT AND PLAN: 1. Acute kidney injury on chronic kidney disease, stage 4 with slight worsening in the last few days, most likely from worsening cardiorenal syndrome. Agree with current management. I did discuss with Dr. Fowler about the case and plan is to try Lasix IV with milrinone and monitor his renal response and electrolytes. 2. Cardiorenal syndrome as above. 3. Edema. 4. Hypokalemia. Monitor and replace as needed. 5. Acidosis. 6. Anemia of chronic disease. 7. History of hypertension. 8. Right-sided heart failure with diastolic dysfunction. 9. Moderate to severe tricuspid regurgitation. 10. Severely elevated pulmonary hypertension. 11. Prognosis is guarded given his right-sided heart failure and renal failure. Fluid status is very hard to manage. Avoid nephrotoxins. Cautious use of diuretics with adequate hydration to balance cardiorenal syndrome, currently on sildenafil also for pulmonary hypertension. 12. We will continue to follow. Family updated about the situation and need for dialysis if renal function continues to get worse and does not improve, especially with worsening fluid status. Family is aware. We will follow. Job ID: [id number]
[2020-07-21] MEDS: Atorvastatin Calcium 20 MG TAB PO SCH (22:11)
[2020-07-21] MEDS: Mag-Al 1200 mg/1200 mg/30 ML UDCUP PO PRN (22:19)
--- NOTE | 2020-07-21 22:54 | PRG ---
DATE OF SERVICE: 07/21/2020 SUBJECTIVE: Mr. Mart is clinically stable. He has no new complaints. He just keeps saying he is not ready to . I had a long discussion with him, his , and his daughter about resuscitation. I got them to agree the do not intubate status. OBJECTIVE: VITAL SIGNS: He is afebrile. Oximetry is 95%. He is on high-flow oxygen at 48%. We need to wean him back to a nasal cannula tomorrow if possible. LUNGS: Unchanged. HEART: Unchanged. ABDOMEN: Unchanged. He has no wheezes on exam. LABORATORY DATA: Chest radiographs unchanged. IMPRESSION: 1. Chronic obstructive pulmonary disease with exacerbation. 2. Pulmonary hypertension secondary to chronic obstructive pulmonary disease. 3. Diastolic heart failure. 4. Extreme deconditioning. Two weeks ago, he was walking in the halls and then was transferred to telemetry for IV infusions, he has not walked and now cannot get up to the side of the bed by himself. 5. I think physical therapy needs to be the priority at this point. Job ID: [id number]
[2020-07-22 03:46] LABS: Hemoglobin 8.8 g/dL (14.0-18.0); Mean Corpuscular HGB CONC 31.4 g/dL (32.0-36.0); Mean Corpuscular Hemoglobin 29.3 pg (27.0-31.0); Mean Corpuscular Volume 93.1 fL (78.0-98.0); Mean Platelet Volume 9.7 fL (7.4-10.4); Platelet Count 199 thou/uL (130-400); Red Blood Cell (RBC) Count 3.02 mill/uL (4.70-6.10); White Blood Cell (WBC) Count 8.7 thou/uL (4.8-10.8)
[2020-07-22 03:47] LABS: #Basophils 0.1 thou/uL (0.0-0.2); #Lymphocytes 0.2 thou/uL (1.20-3.40); #Monocytes 0.3 thou/uL (0.11-0.59); #Neutrophils 7.9 thou/uL (1.40-6.50); %Basophils 0.6 % (0.0-1.0); %Eosinophils 0.2 % (0.0-10.0); %Lymphocytes 2.3 % (21.0-51.0); Hemoglobin 8.8 g/dL (14.0-18.0); Mean Corpuscular HGB CONC 31.3 g/dL (32.0-36.0); Mean Corpuscular Hemoglobin 29.4 pg (27.0-31.0); Mean Corpuscular Volume 93.9 fL (78.0-98.0); Mean Platelet Volume 9.4 fL (7.4-10.4); Platelet Count 199 thou/uL (130-400); RBC Distribution Width 18.3 % (11.5-14.5); Red Blood Cell (RBC) Count 2.99 mill/uL (4.70-6.10); White Blood Cell (WBC) Count 8.4 thou/uL (4.8-10.8)
[2020-07-22 04:06] LABS: Anion Gap 20 mmol/L (10-20); BUN (Urea Nitrogen) 107 mg/dL (8.4-25.7); Calc. Creatinine Clearance 21 mL/min (70-130); Calcium 8.2 mg/dL (7.8-10.44); Carbon Dioxide 18 mmol/L (23-31); Chloride 99 mmol/L (98-107); Estimated GFR-MDRD 15; Glucose 249 mg/dL (83-110); Potassium 4.8 mmol/L (3.5-5.1); Sodium 132 mmol/L (136-145)
[2020-07-22] MEDS: Sildenafil Citrate 20 MG TAB PO SCH ×3 (06:27→22:18)
[2020-07-22] MEDS: methylPREDNISolone Sod Succ 40 MG VIAL IVP SCH (06:27)
[2020-07-22] MEDS: Mometasone 200 MCG/Formoterol 5 MCG 120 PUFF INHALER INH SCH ×2 (06:33→19:48)
[2020-07-22] MEDS ORDERED: Sodium Chloride 0.45% 1,000 ML IV SCH (06:45)
[2020-07-22] MEDS: Milrinone Lactate/D5W 20 MG in Premix Bag 1 BAG IV SCH ×2 (07:23→20:34)
--- NOTE | 2020-07-22 07:44 | PRG ---
DATE OF SERVICE: 07/22/2020 SUBJECTIVE: Mr. Mart had very little urine output overnight. OBJECTIVE: VITAL SIGNS: Heart rate is in the 90s, respiratory rates in the teens, oximetry is 99%. He is on BiPAP. This morning blood pressure 122/58. LUNGS: Free of wheezes. HEART: Regular rhythm. ABDOMEN: Soft. LABORATORY DATA: White count 8.4, hemoglobin 8.8, platelets 199. Sodium 132, potassium 4.8, chloride 99, bicarb 18, BUN 107, creatinine up to 3.8, on it was 2.9. He does not need any more Lasix. He needs gentle rehydration at this point. His COPD is stable. He is likely steroid dependent and will eventually go out on 20 mg a day of prednisone. We will cut his IV steroids back to once a day. Two weeks ago, he was walking, but he is unable to get out of bed on his own at this point in time. He needs to be up in a chair and Physical Therapy needs to be working with him every day to increase his strength. I have also asked him to do exercises on his own while he is sitting on the side of the bed or sitting in a chair. Job ID: [id number]
[2020-07-22] MEDS ORDERED: Albumin 25% 25 GM/100 ML BOT IVPB SCH ×2 (08:00→16:00)
[2020-07-22] MEDS ORDERED: DOBUTAMINE 250 MG-D5W 250 ML 250 MG in Premix Bag 1 BAG IV SCH (08:00)
[2020-07-22] MEDS: DOBUTamine 500 mg/250 ml 500 MG in Premix Bag 1 BAG IVPB SCH (09:00)
[2020-07-22] MEDS: Senokot S 8.6-50 MG TAB PO SCH ×2 (09:19→20:34)
[2020-07-22] MEDS: Fluconazole 100 MG TAB PO SCH (09:19)
[2020-07-22] MEDS: guaiFENesin ER 600 MG TAB PO SCH ×2 (09:20→20:33)
[2020-07-22] MEDS: Cholecalciferol 1,000 UNITS (25 MCG) TAB PO SCH (09:20)
[2020-07-22] MEDS: Magnesium Oxide 400 MG TAB PO SCH ×2 (09:20→20:33)
[2020-07-22] MEDS: Amiodarone 200 MG TAB PO SCH ×2 (09:20→20:33)
[2020-07-22] MEDS: Multivitamin W/ Minerals 1 TAB PO SCH (09:20)
[2020-07-22] MEDS: Tamsulosin HCl 0.4 MG CAP PO SCH (09:21)
[2020-07-22] MEDS: Gabapentin 100 MG CAP PO SCH ×2 (09:21→20:33)
[2020-07-22] MEDS: Nystatin Powder 15 GM BOT TOP SCH ×2 (09:23→20:34)
[2020-07-22] MEDS: Sucralfate 1 GM TAB PO SCH ×3 (09:37→17:23)
--- NOTE | 2020-07-22 10:24 | PRG ---
DATE OF SERVICE: 07/22/2020 SUBJECTIVE: Mr. Mart had a variable day. Yesterday he got up in the morning, felt good. He felt strong. Due to worsening BUN/creatinine, Lasix IV drip was stopped completely. He was allowed to have some time to recover. Then during the day in coordination with Nephrology Service, IV bolus Lasix was given. He was interactive with staff. He was visited by [facility]. They did not have a very good conversation. The patient as well as his , they do not want hospice at this point. They want to live at all possible and participate at family event. They much more prefer home health care with infusion. They are very in emphatic about no hospice. An evening dose of Lasix 80 mg IV was given. This corresponded to after dinner and the usual increased urination time and also this corresponded to having a day of her eating and drinking hopefully enough volume has buildup for him to have effective diuresis overnight. Unfortunately, it did not work. It was reported that he responded to IV Lasix 80 only with about 100 mL. This is surprisingly low. It is very out of characteristic. REVIEW OF SYSTEMS: GENERAL: There is no fever, chills, or productive cough. He actually said he does not feel too bad. HEENT: There are no vision, hearing, or swallowing changes. He is chronically hard of hearing. PULMONARY: He has his usual shortness of breath, not particularly worse. CARDIAC: There is no complaint of palpitation, chest pain or syncope. GI: He still has some epigastric GI pain and discomfort, but since the start of sucralfate, this has greatly diminished. : He is on a De catheter. MUSCULOSKELETAL: He is not complaining of back pain or muscle pain today. INTEGUMENT: There is no new skin breakdown. NEUROLOGIC: There are no new focal deficits or weaknesses. MEDICATIONS: Include 1. Amiodarone 400 mg b.i.d. 2. Albuterol and ipratropium nebs q.4 hours. 3. Atorvastatin 20 mg at bedtime. 4. Fluconazole 200 mg daily. 5. Gabapentin 100 mg b.i.d. 6. Magnesium oxide 400 mg b.i.d. 7. Solu-Medrol 40 mg IV, reduced down to daily. 8. Milrinone at 0.375 mcg/kg/minute. 9. Dulera 200 mcg/5 mcg combination at 2 puffs b.i.d. 10. Sildenafil 20 mg q.8 hours. 11. Half-normal saline currently at 70 mL/hour. 12. Sucralfate 1 g t.i.d. before meals. 13. Flomax 0.4 mg daily. 14. Zolpidem 5 mg p.o. p.r.n. Telemetry was reviewed. He is mainly in sinus rhythm. His average heart rate has decreased down to the high 80s. He has different morphology P waves. He has multifocal origin in the atrium. He has a wandering pacemaker. There are no ventricular tachycardia in last 24 hours. PHYSICAL EXAMINATION: VITAL SIGNS: Latest vitals, heart rate 74, blood pressure 110/56. Even though this is very normal for a normal person, this heart rate is insufficient for him GENERAL: Alert and conversational. He is very animated. HEENT: EOMI. Oropharynx is benign with moist mucosa. NECK: His JVP is still elevated at least 12 to 13 cm. PULMONARY: He has distant breath sounds, slight wheeze but there are no una crackles. CARDIAC: Mostly regular rate and rhythm, there are an occasional irregularities. There is 2/6 holosystolic murmur at the left sternal border and also 2/6 holosystolic murmur at the apex with radiation to the left axilla. ABDOMEN: Distended, soft. There is some slight tenderness at epigastric, it was less so than 2 days ago. HIPS: There is some pitting edema. EXTREMITIES: Thighs, there is some pitting edema, but again very much less so than last week and 3 days ago. Lower extremities are warm, seemed to be well perfused. There is about 1 cm pitting edema from foot to about senior living up towards knee. Overall, the calf is still soft. You can see the tibia, such that by exam bolton he has not much changed from yesterday. LABORATORY DATA: White cell count 8.4, hemoglobin 8.8, platelets 199. His chemistry shows sodium 133, potassium 4.8, chloride 99, bicarbonate 18, BUN 107, creatinine 3.82, glucose 249. ASSESSMENT: 79-year-old gentleman, has significantly worsening of renal function. Combination of greatly decrease in urine output, surprising lack of response to furosemide and much worsening of BUN and creatinine, strongly showed a possibility of renal failure needing dialysis soon. He is currently intravascularly depleted. Apparently he is very preload dependent. He is also very cardiac output dependent. His heart rate has slowed down considerably. Once amiodarone on board, contractility on the right ventricle would have been decreased too. All of these will need to be reversed in attempt to correct his renal function. I agree with half normal IV fluids. We will add on albumin to expand the volume. We will have to decrease milrinone because he is reaching the toxic range now with vasodilating thereby decreasing blood pressure, which he will not be able to tolerate. We will attempt to compensate with low dose dobutamine but keep his heart rate within check to avoid VT. Fortunately, his hemoglobin is somewhat holding steady. So he does not have any sign of continued GI bleed. This is a very complicated gentleman who has multiple severe problems. His admission problem was a left hip septic joint. He has just completed one month IV antibiotics for this. 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 This combination caused the right heart failure resulting in anasarca. Low cardiac output and anasarca caused renal failure. Also the intravascular volume depletion worsened renal failure. He did have multiple bouts of GI bleed. He received his cauterization last week. Since then, he required blood transfusions again. Fortunately, with start of sucralfate, his GI bleed seemed to have stopped. Overall prognosis is grim. I did discuss the situation with him and his . They are currently not ready to consider hospice. However, they do want to go home and they are considering home health care. I did high school counselor them that hospice can bring him a higher level of care at home. If they go home with hospice, they can actually get better and get off hospice. They also expressed that they had difficulty with [facility] in the past. Thus, they were not impressed with [facility], it is a home health care or hospice company at this point. However, they are open to going home with home health care first, then if need be, in transition to hospice. RECOMMENDATIONS: 1. Decrease milrinone to 0.25 mcg/kg/minute. This is to avoid toxicity due to reduced renal function. 2. Start dobutamine at 1.25 mcg/kg per minute. I will call back and check on heart rate. If his heart rate stays about 100 or below, we can increase to 2.5 mcg/kg per minute, but not anything above this. 3. Add albumin 25 g IV, just one dose. 4. We will check BMP and magnesium at about 3 p.m. to see if these maneuvers have made any difference or not. 5. Stop all Lasix. 6. Stop all potassium supplement. 7. Discontinue hydralazine to allow patient's systolic blood pressure to come up some to perfuse his kidneys. It has been a pleasure of taking care of Mr. Mart. If you have any questions, please give me a call. The total ICU time on this visit is about 60 minutes. This includes titration of medications in real-time, personally performed history and physical, holding a family meeting with and , and also coordinating care. Job ID: [id number] MTDAnn
--- NOTE | 2020-07-22 12:14 | PRG ---
DATE OF SERVICE: 07/22/2020 SUBJECTIVE: Patient was seen and examined at bedside and overnight events noted. Patient denies any shortness of breath or chest pain or palpitation. No history of nausea or vomiting or diarrhea or fever or chills or cramps. OBJECTIVE: General: This is a well-built male, in no apparent distress. Vital Signs: Temperature 98.4. Heart Rate 107. Respiratory rate . Blood pressure 110/56. HEENT: Atraumatic, normocephalic. Oral mucosa is moist. Neck: Supple. Cardiovascular: S1, S2 heard. Rate and rhythm regular. Respiratory: Clear to auscultation. Gastrointestinal: Abdomen is soft. Musculoskeletal: No tenderness. 2+ edema. Dermatologic: No skin rash. Neurologic: Alert and awake and oriented x3. No focal neurologic deficits. Moving all the extremities. Psychiatric: Mood and affect normal. LABORATORY DATA: Potassium 4.8, sodium 132, BUN is 107, creatinine is 3.8. ASSESSMENT AND PLAN: 1. Acute kidney injury on chronic kidney stage 4 with worsening of labs. All the diuretics being held and he is gently being hydrated. I do expect this from happening in the future also with fluctuating fluid balance, since he is so sensitive to fluid balance. We can see renal failure and cardiac failure fluctuating and trying to balance each other. 2. Cardiorenal syndrome. 3. Edema. 4. Hypokalemia. 5. Acidosis. 6. History of hypertension. 7. Right-sided heart failure. 8. Diastolic dysfunction. 9. [id number] tricuspid regurgitation. 10. Severe pulmonary hypertension. 11. Prognosis remains guarded. Talks being carried out with the family regarding hospice versus home health. I do agree with the plan and be very careful with IV fluids, since he can easily get fluid overload as well as fluid depleted. I explained everything to the family to considering the options. Thank you for allowing me to participate in the care of this patient. We will follow the case along with you. Job ID: [id number]
[2020-07-22] MEDS: Fluticasone Propionate Nasal Spray 16 gm Bottle NASAL SCH (12:33)
[2020-07-22 15:52] LABS: Anion Gap 22 mmol/L (10-20); BUN (Urea Nitrogen) 116 mg/dL (8.4-25.7); Calc. Creatinine Clearance 20 mL/min (70-130); Calcium 8.3 mg/dL (7.8-10.44); Carbon Dioxide 17 mmol/L (23-31); Chloride 98 mmol/L (98-107); Estimated GFR-MDRD 14; Glucose 253 mg/dL (83-110); Potassium 4.6 mmol/L (3.5-5.1); Sodium 132 mmol/L (136-145)
[2020-07-22] MEDS: Atorvastatin Calcium 20 MG TAB PO SCH (20:33)
[2020-07-22] MEDS ORDERED: Sodium Chloride 0.9% 250 ML IVPB SCH (21:30)
[2020-07-23 03:15] LABS: #Lymphocytes 0.2 thou/uL (1.20-3.40); #Monocytes 0.4 thou/uL (0.11-0.59); #Neutrophils 6.9 thou/uL (1.40-6.50); %Eosinophils 0.1 % (0.0-10.0); %Lymphocytes 3.1 % (21.0-51.0); %Monocytes 5.3 % (0.0-10.0); %Neutrophils 91.5 % (42.0-75.0); Hemoglobin 8.5 g/dL (14.0-18.0); Mean Corpuscular HGB CONC 32.9 g/dL (32.0-36.0); Mean Platelet Volume 9.2 fL (7.4-10.4); Platelet Count 169 thou/uL (130-400); RBC Distribution Width 17.9 % (11.5-14.5); Red Blood Cell (RBC) Count 2.82 mill/uL (4.70-6.10); White Blood Cell (WBC) Count 7.6 thou/uL (4.8-10.8)
[2020-07-23 03:36] LABS: Anion Gap 20 mmol/L (10-20); BUN (Urea Nitrogen) 120 mg/dL (8.4-25.7); Calc. Creatinine Clearance 20 mL/min (70-130); Calcium 8.2 mg/dL (7.8-10.44); Carbon Dioxide 19 mmol/L (23-31); Chloride 97 mmol/L (98-107); Estimated GFR-MDRD 13; Glucose 228 mg/dL (83-110); Magnesium 3.2 mg/dL (1.6-2.6); Potassium 4.5 mmol/L (3.5-5.1); Sodium 131 mmol/L (136-145)
[2020-07-23] MEDS: Sildenafil Citrate 20 MG TAB PO SCH ×3 (05:57→21:25)
[2020-07-23 06:57] LABS: ALT (SGPT) 481 U/L (8-55); AST (SGOT) 389 U/L (5-34); Albumin 3.9 g/dL (3.4-4.8); Alkaline Phosphatase 267 U/L (40-110); Anion Gap 21 mmol/L (10-20); BUN (Urea Nitrogen) 123 mg/dL (8.4-25.7); Bilirubin, Total 1.1 mg/dL (0.2-1.2); Calc. Creatinine Clearance 19 mL/min (70-130); Calcium 8.2 mg/dL (7.8-10.44); Carbon Dioxide 17 mmol/L (23-31); Chloride 98 mmol/L (98-107); Estimated GFR-MDRD 13; Globulin 1.9 g/dL (2.4-3.5); Glucose 233 mg/dL (83-110); Potassium 4.5 mmol/L (3.5-5.1); Protein, Total 5.8 g/dL (5.8-8.1); Sodium 131 mmol/L (136-145)
[2020-07-23] MEDS: Mometasone 200 MCG/Formoterol 5 MCG 120 PUFF INHALER INH SCH ×2 (07:03→19:42)
[2020-07-23] MEDS: Amiodarone 200 MG TAB PO SCH (09:49)
[2020-07-23] MEDS: Cholecalciferol 1,000 UNITS (25 MCG) TAB PO SCH (09:49)
[2020-07-23] MEDS: Fluconazole 100 MG TAB PO SCH (09:49)
[2020-07-23] MEDS: Gabapentin 100 MG CAP PO SCH ×2 (09:50→21:25)
[2020-07-23] MEDS: Magnesium Oxide 400 MG TAB PO SCH ×2 (09:50→21:25)
[2020-07-23] MEDS: methylPREDNISolone Sod Succ 40 MG VIAL IVP SCH (09:50)
[2020-07-23] MEDS: guaiFENesin ER 600 MG TAB PO SCH ×2 (09:50→21:25)
[2020-07-23] MEDS: Multivitamin W/ Minerals 1 TAB PO SCH (09:50)
[2020-07-23] MEDS: Tamsulosin HCl 0.4 MG CAP PO SCH (09:51)
[2020-07-23] MEDS: Senokot S 8.6-50 MG TAB PO SCH ×2 (09:51→21:25)
[2020-07-23] MEDS: Fluticasone Propionate Nasal Spray 16 gm Bottle NASAL SCH (09:52)
[2020-07-23] MEDS: Milrinone Lactate/D5W 20 MG in Premix Bag 1 BAG IV SCH ×2 (09:53→21:36)
[2020-07-23] MEDS: Nystatin Powder 15 GM BOT TOP SCH ×2 (09:53→21:25)
[2020-07-23] MEDS: Sucralfate 1 GM TAB PO SCH ×3 (09:57→18:11)
--- NOTE | 2020-07-23 10:31 | PRG ---
DATE OF SERVICE: 07/23/2020 SUBJECTIVE: Mr. Mart is lying in bed. His is at the bedside and I had a long discussion with him today. He says he feels okay. He is still troubled by significant edema. OBJECTIVE: VITAL SIGNS: His temperature is 99.5, pulse 88, blood pressure 120/67, O2 saturation 97%. His total intake for the last 24 hours has been 2472 mL and output has been 275 mL. HEENT: Unremarkable. NECK: No adenopathy or JVD. CARDIAC: S1 and S2. Distant heart sounds. LUNGS: Diminished breath sounds in the bases. ABDOMEN: Soft. EXTREMITIES: 4+ edema from the thighs downward. LABORATORY DATA: White blood cell count 7.6, hematocrit 25.6, and platelet count 169. Sodium 131, potassium 4.5, chloride 98, CO2 of 17, BUN 123, creatinine 4.4, glucose 233, AST 389, ALT 481. The patient is currently on a dobutamine drip, also receiving Milrinone. ASSESSMENT: 1. Stable chronic obstructive pulmonary disease. 2. Systolic heart failure. 3. Pulmonary hypertension. 4. Septic hip. 5. Acute on chronic renal failure. RECOMMENDATIONS: 1. The patient appears committed to caring on with aggressive care. I think given that situation, he is probably going to require dialysis for fluid removal as he is unable to move fluid well otherwise. 2. He continues on steroids for his chronic obstructive pulmonary disease. He is on Inotropes per Dr. Fowler. Appreciate the input of all others involved in care of this patient. His prognosis is terrible. Job ID: [id number]
--- NOTE | 2020-07-23 12:01 | PRG ---
DATE OF SERVICE: 07/23/2020 SUBJECTIVE: The patient was seen and examined at the bedside. His is also at the bedside too. The patient is not making much urine. It was concerned that his renal function is not getting better. He denies shortness of breath more than his usual, but he is short of breath. OBJECTIVE: GENERAL: This is a well-built male, in no apparent distress. VITAL SIGNS: Temperature 99.2, pulse 92, respiratory rate 18, and blood pressure 124/62. HEENT: Atraumatic, normocephalic. NECK: Supple. CV: S1 and S2. Regular rate and rhythm. RESPIRATORY: crackles. GI: Abdomen is soft. MUSCULOSKELETAL: 2+ edema. DERMATOLOGIC: No skin rash. NEUROLOGIC: Alert and awake. LABORATORY DATA: Potassium 4.5, BUN is 123, and creatinine is 4.4. ASSESSMENT AND PLAN: 1. Acute kidney injury on chronic kidney disease, stage 4 with worsening renal function. No acute indication for dialysis, but if fluid overload does not get better and if his urine output is not improving, might need dialysis. 2. Anemia. 3. Cardiorenal syndrome. 4. Severe pulmonary hypertension. 5. Ddwnllwe-rh-vwuqwz tricuspid regurgitation. 6. Edema. 7. Diastolic dysfunction. 8. Right-sided heart failure. 9. Hypokalemia. 10. Acidosis. No acute indication for dialysis, but if urine output does not improve, might need hemodialysis. Advised him to limit fluid intake to prevent fluid overload. At this point, we will monitor. Avoid nephrotoxins. We will follow. Job ID: [id number]
[2020-07-23] MEDS ORDERED: Heparin 10,000 UNITS/ 10 ML VIAL ONE (12:21)
[2020-07-23] MEDS: Atorvastatin Calcium 20 MG TAB PO SCH (21:25)
[2020-07-24] MEDS: DOBUTamine 500 mg/250 ml 500 MG in Premix Bag 1 BAG IVPB SCH (02:32)
[2020-07-24 03:46] LABS: #Lymphocytes 0.1 thou/uL (1.20-3.40); #Monocytes 0.3 thou/uL (0.11-0.59); #Neutrophils 6.3 thou/uL (1.40-6.50); %Eosinophils 0.2 % (0.0-10.0); %Lymphocytes 2.1 % (21.0-51.0); %Neutrophils 93.7 % (42.0-75.0); Hemoglobin 8.6 g/dL (14.0-18.0); Mean Corpuscular HGB CONC 32.2 g/dL (32.0-36.0); Mean Corpuscular Hemoglobin 29.5 pg (27.0-31.0); Mean Corpuscular Volume 91.8 fL (78.0-98.0); Mean Platelet Volume 9.3 fL (7.4-10.4); Platelet Count 170 thou/uL (130-400); RBC Distribution Width 17.9 % (11.5-14.5); Red Blood Cell (RBC) Count 2.91 mill/uL (4.70-6.10); White Blood Cell (WBC) Count 6.8 thou/uL (4.8-10.8)
[2020-07-24 03:48] LABS: Hemoglobin 8.6 g/dL (14.0-18.0); Mean Corpuscular HGB CONC 32.4 g/dL (32.0-36.0); Mean Corpuscular Hemoglobin 29.6 pg (27.0-31.0); Mean Corpuscular Volume 91.3 fL (78.0-98.0); Mean Platelet Volume 9.7 fL (7.4-10.4); Platelet Count 170 thou/uL (130-400); RBC Distribution Width 18.1 % (11.5-14.5); Red Blood Cell (RBC) Count 2.88 mill/uL (4.70-6.10); White Blood Cell (WBC) Count 6.6 thou/uL (4.8-10.8)
[2020-07-24 04:11] LABS: Anion Gap 20 mmol/L (10-20); Calc. Creatinine Clearance 18 mL/min (70-130); Carbon Dioxide 17 mmol/L (23-31); Chloride 96 mmol/L (98-107); Estimated GFR-MDRD 12; Glucose 250 mg/dL (83-110); Magnesium 3.1 mg/dL (1.6-2.6); Potassium 5.2 mmol/L (3.5-5.1); Sodium 128 mmol/L (136-145)
[2020-07-24 04:25] LABS: BUN (Urea Nitrogen) 120 mg/dL (8.4-25.7)
[2020-07-24] MEDS: Sildenafil Citrate 20 MG TAB PO SCH ×3 (05:58→22:24)
--- NOTE | 2020-07-24 06:04 | PRG ---
DATE OF SERVICE: 07/23/2020 SERVICE: [facility] SUBJECTIVE: Mr. Bin Mart had a variable day. From activity bolton, he had a good day. He was able to get up, take a few steps and sit down. Today, he was interactive. He actually felt fairly well. However, his urine output has been minimum all day. He did receive half-normal saline IV fluid about 70 mL/hour for a liter. Afterwards, normal saline at 50 mL/hour for another 5 hours then. So, he had IV fluids all day. He also received albumin 25 g X 2 to expand volume. Despite all the efforts, he has minimal urine output. He was noted to be regaining edema in his legs and his abdomen. He also complained of the 4 bowel movements yesterday. However, he says he did not have epigastric pain. The nurse did not report any dark BMs this time around. REVIEW OF SYSTEMS: GENERAL: He is actually feeling at baseline. There are no fever, chills, or productive cough. HEENT: There is no change in vision, hearing, or swallowing. He is chronically hard of hearing. PULMONARY: He has baseline shortness of breath. CARDIAC: There is no palpitation, chest pain or syncope. GI: He did not complain of epigastric pain today except that he does complain of 4 bouts of loose bowel movements. : He has a De catheter, but he is oliguric. MUSCULOSKELETAL: He is not complaining of joint pains today. INTEGUMENT: There is no complaint of skin breakdown. NEUROLOGIC: There are no new complaints, focal deficits or weaknesses. MEDICATIONS: Medications that can have cardiac effect includes 1. Albuterol ipratropium nebs every 4 hours. 2. Amiodarone 400 mg twice a day. This will convert to 200 mg daily after a week. 3. Atorvastatin 20 mg p.o. at bedtime. 4. Dobutamine currently at 2 mcg/kg/minute. 5. Fluconazole at 200 mg daily. 6. Gabapentin at 100 mg b.i.d. 7. Magnesium oxide 400 mg b.i.d. 8. Solu-Medrol at 40 mg IV daily. 9. Milrinone currently at 0.25 mcg/kg/minute. 10. Dulera 200/5 mcg inhaler twice a day. 11. Protonix 40 mg b.i.d. 12. Sildenafil at 20 mg p.o. q.8 hours. 13. Sucralfate at 1 g before meals. 14. Flomax 0.4 mg daily. Telemetry was reviewed. Mr. Mart is in predominantly sinus rhythm. He does have change in P-wave morphologies, so he has a wandering pacemaker. There are no concerning arrhythmias. Last 24 hours he has been very, very stable. This is one of the much better days. PHYSICAL EXAMINATION: VITAL SIGNS: Ranged between 100 to 130s systolic blood pressure. The current vitals are heart rate 90, blood pressure 120/67. GENERAL: He is alert, conversational, reclining in bed. He is not in any acute distress, but he is on a BiPAP. HEENT: EOMI. Oropharynx is benign with moist mucosa. NECK: His JVP is high, at least 13 cm. PULMONARY: His breath sounds are distant, but there is decent air movement with some expiratory wheeze. However, there are no crackles at the bases, so he does not have pulmonary edema, but still has COPD effect. ABDOMEN: Looks like a bit more distended today. Soft, nontender. Positive bowel sounds. EXTREMITIES: He has some pitting edema about hips. He has some increased pitting edema about his thighs. He has increased 1 cm pitting edema from the right foot to right knee. This is more than yesterday, but a lot less than 2 weeks ago. He has increasing pitting edema of the left foot to left knee at least 1 cm. This is increased from yesterday, but then again is much less than 2 weeks ago. LABORATORY DATA: White cell count 7.6, hemoglobin 8.5, platelets 169. His chemistry shows sodium 131, potassium 4.5, chloride 97, bicarb 19, BUN 120, creatinine 4.27, and glucose of 228. ASSESSMENT: 79-year-old gentleman suffers from multiple complex difficulties. Currently with milrinone at 0.25, dobutamine at 2 mcg/kg/minute and amiodarone and sildenafil his cardiac condition of right heart failure has been optimized as much as possible. He has good blood pressure, good pulse pressure and stable rhythm. So this should be sufficient to perfuse kidneys and sufficient to keep his pulmonary hypertension under control. His kidney dysfunction likely has reached peak. He may have acute tubular necrosis or acute interstial nephritis. He did not respond that well to IV fluids all day yesterday at all. He has been receiving Zosyn and also daptomycin. It ended about 2 days ago. Together with the right heart failure and aggressive diuresis, all have combined to cause renal dysfunction, perhaps ATN or AIN. With net positive 2 L, I do not think that IV fluids should be given today. We will defer to Nephrology for the next step in terms of renal management. I did speak to the patient many times about potential dialysis for the last 2 weeks. The patient has strongly stated he does want dialysis if it comes to that. He actually had dialysis session twice before already. Currently the patient resides in [place] Heart Association stage C and [place] Heart Association class 3B heart failure with preserved ejection fraction. It is predominantly right heart failure, cor pulmonale secondary to pulmonary hypertension and probable diastolic dysfunction. The patient was originally admitted for a left septic hip joint. He finished his month course of antibiotics, which was concluded just now. He is asymptomatic for that. He also has severe COPD that is steroid dependent. He is currently still on Solu-Medrol for this. He also has a mixed pulmonary hypertension. He is being treated with sildenafil for this now. Please see the following for my recommendations. RECOMMENDATIONS: 1. Continue current ionotropic combination of milrinone 0.25 mcg/kg/minute and dobutamine at 2 mcg/kg/minute, if needed I can titrate up dobutamine slightly. 2. We will defer fluid and renal management to Nephrology. 3. We will continue to follow hemoglobin. If hemoglobin decreases to near 8, he will need to be transfused. He seems to do much better when hemoglobin is 9 or better. At hemoglobin 9 or better, his kidney has returned to function in the past. Currently, there is no need to transfuse at this point. It has been a pleasure taking care of Mr. Mart. If any questions, please give me a call. The total visitation time is about 50 minutes of ICU time. This includes multiple visits in the last 24 hours in titrating medications, personally performing history and physical, coordinating care with multiple services, and direct patient interaction, and also family counseling. Job ID: [id number] [facility]
[2020-07-24] MEDS: Mometasone 200 MCG/Formoterol 5 MCG 120 PUFF INHALER INH SCH ×2 (06:53→18:16)
[2020-07-24] MEDS: Sucralfate 1 GM TAB PO SCH ×3 (10:11→17:49)
[2020-07-24] MEDS: Amiodarone 200 MG TAB PO SCH (10:11)
[2020-07-24] MEDS: Cholecalciferol 1,000 UNITS (25 MCG) TAB PO SCH (10:11)
[2020-07-24] MEDS: Magnesium Oxide 400 MG TAB PO SCH ×2 (10:12→10:13)
[2020-07-24] MEDS: methylPREDNISolone Sod Succ 40 MG VIAL IVP SCH (10:12)
[2020-07-24] MEDS: guaiFENesin ER 600 MG TAB PO SCH ×2 (10:12→22:09)
[2020-07-24] MEDS: Senokot S 8.6-50 MG TAB PO SCH ×2 (10:12→22:10)
[2020-07-24] MEDS: Gabapentin 100 MG CAP PO SCH ×2 (10:12→22:10)
[2020-07-24] MEDS: Multivitamin W/ Minerals 1 TAB PO SCH (10:12)
[2020-07-24] MEDS: Tamsulosin HCl 0.4 MG CAP PO SCH (10:13)
[2020-07-24] MEDS: Fluconazole 100 MG TAB PO SCH (10:19)
[2020-07-24] MEDS: Fluticasone Propionate Nasal Spray 16 gm Bottle NASAL SCH (10:20)
[2020-07-24] MEDS: Nystatin Powder 15 GM BOT TOP SCH ×2 (10:20→22:11)
--- NOTE | 2020-07-24 11:36 | PRG ---
DATE OF SERVICE: 07/24/2020 SUBJECTIVE: The patient is in good spirits. He has no acute complaints. OBJECTIVE: VITAL SIGNS: On exam, his temperature is 98.6, pulse 99, blood pressure 121/60, and O2 saturation 93%. HEENT: Unremarkable. NECK: No JVD. LUNGS: Coarse breath sounds. CARDIAC: S1 and S2. Regular. ABDOMEN: Soft, edematous. EXTREMITIES: 3+ edema throughout. LABORATORY DATA: White blood cell count 6.8, hematocrit 26.7, and platelet count 170. Sodium 128, potassium 5.2, chloride 96, CO2 of 17, BUN 120, creatinine 4.8, and glucose 250. ASSESSMENT: 1. The patient has stable chronic obstructive pulmonary disease. 2. Chronic systolic heart failure. 3. Pulmonary hypertension. 4. Septic hip. 5. Acute on chronic renal failure. PLAN: Fluid removal is becoming very difficult with diuretics. He is being treated with inotropes. I think he will probably need dialysis, but I am not sure that is the best thing overall for his heart. It is very difficult to make the family understand that he probably will not do well as they are not accepting this. Job ID: [id number]
[2020-07-24 12:13] LABS: ALT (SGPT) 354 U/L (8-55); AST (SGOT) 60 U/L (5-34); Albumin 3.9 g/dL (3.4-4.8); Alkaline Phosphatase 238 U/L (40-110); Anion Gap 20 mmol/L (10-20); Bilirubin, Total 0.6 mg/dL (0.2-1.2); Calc. Creatinine Clearance 17 mL/min (70-130); Calcium 8.1 mg/dL (7.8-10.44); Carbon Dioxide 17 mmol/L (23-31); Chloride 96 mmol/L (98-107); Estimated GFR-MDRD 11; Glucose 168 mg/dL (83-110); Potassium 5.1 mmol/L (3.5-5.1); Protein, Total 5.9 g/dL (5.8-8.1); Sodium 128 mmol/L (136-145)
[2020-07-24 12:25] LABS: BUN (Urea Nitrogen) 126 mg/dL (8.4-25.7)
--- NOTE | 2020-07-24 12:52 | PRG ---
DATE OF SERVICE: 07/24/2020 SUBJECTIVE: The patient is seen and examined at bedside. He is still having shortness of breath and is not making much urine, and I had a detailed discussion with the family and they are okay with moving forward with the dialysis. OBJECTIVE: GENERAL: This is a well-built male, in no apparent distress. VITAL SIGNS: Temperature 98.4, pulse respiratory rate 18, blood pressure 120/67. HEENT: Atraumatic and normocephalic. NECK: Supple. CV: S1 and S2, heard. RESPIRATORY: Clear. GI: Abdomen is soft. MUSCULOSKELETAL: 2+ edema. DERMATOLOGIC: No skin rash. NEUROLOGIC: Alert and awake. PSYCHIATRIC: Normal mood and affect. LABORATORY DATA: Potassium is 5.1, BUN is 120, creatinine is 5.1, calcium 8.1. ASSESSMENT AND PLAN: 1. End-stage renal disease. Now the chronic kidney disease has progressed to end-stage renal disease. He is needing dialysis for fluid removal and clearance. Family is agreeable to dialysis. I did talk with Dr. Davidson, who will be placing a femoral dialysis catheter today and plan for tunneled catheter and fistula if he tolerates dialysis for maintenance hemodialysis. 2. Anemia of chronic disease. 3. Cardiorenal syndrome. 4. Severe pulmonary hypertension, [id number] tricuspid regurgitation. 5. Edema. 6. Diastolic dysfunction, right-sided heart failure. 7. Hyperkalemia. 8. Acidosis. Plan to start on dialysis. Surgeon notified for line placement and dialysis nurse is also aware. Plan is to have 2 hours of dialysis today with ultrafiltration, plan to remove 1 to 2 L if the blood pressure and his cardiac status tolerate. Plan discussed with Dr. Reardon too. We will follow. Job ID: [id number]
[2020-07-24 15:24] LABS: HBSAB Concentration Less than 8.00 mIU/mL; HBSAg Index 0.23 S/CO (0-0.99); Hep B Core Total Ab Non-Reactive (NonReactive); Hep B Core Total Index 0.06 S/CO (0-0.79); Hep B Surf AB Non-Reactive (NonReactive); Hep B Surf Ag Non-Reactive S/CO (NonReactive); Hep C IgG Ab Non-Reactive (NonReactive); Hep C Index 0.09 S/CO (0-0.79)
--- NOTE | 2020-07-24 20:19 | OP ---
DATE OF PROCEDURE: 07/24/2020 PROCEDURE PERFORMED: Placement of left femoral hemodialysis catheter. PREOPERATIVE DIAGNOSIS: Acute on chronic renal failure with fluid overload. POSTOPERATIVE DIAGNOSIS: Acute on chronic renal failure with fluid overload. HISTORY: Mr. Mart is an 79-year-old man with multiple medical problems including severe right-sided heart failure and chronic renal failure. He has been admitted to the hospital for a left hip infection and has had problems with increasing fluid retention. Diuresis has not been successful, and his urine output has been going down with climbing BUN and creatinine. His family and he had decided to pursue hemodialysis. His campus administrative assistant is not sure how well he will tolerate this given his severe underlying heart failure. He has been briefly on dialysis before with a previous femoral line. DESCRIPTION OF PROCEDURE: After informed consent was obtained, the patient was placed in the supine position with steep reverse Trendelenburg due to shortness of breath when lying flat. The right and left femoral veins were both patent and compressible. Decision was made to place the dialysis catheter in the right groin due to his left hip issues. The right groin was prepped and draped in standard sterile fashion, and local anesthesia infused over the vein. The vein was located directly behind the artery. Attempts were made to approach it from the side. On the first attempt, the stick appeared to be potentially arterial, so the needle was withdrawn and pressure was held for several minutes. A 2nd attempt with a more horizontal approach from the side was definitely venous with nonpulsatile, dark blood flow. The wire was confirmed by ultrasound to be within the vein, but the wire would only thread up to about 20 cm. Despite multiple efforts, the wire was unable to be advanced past at this point, so the decision was made to place the catheter in the left femoral position. It was felt that the patient might have a stenosis related to his previous catheter. Pressure was held in the right groin for 10 minutes and a sterile dressing placed. The left groin was sterilely prepped and draped, and local anesthesia infused over the patent compressible left femoral vein. This was accessed easily on the 1st approach and the wire advanced easily. This was confirmed by ultrasound to be within the patent compressible vein. The tract easily dilated over the wire, and the Trialysis catheter was advanced and blood easily aspirated and the catheter easily flushed without resistance through all 3 ports. The catheter was secured to the skin and a sterile chlorhexidine dressing placed. The patient tolerated the procedure well. Estimated blood loss was minimal. There were no complications. Job ID: [id number] [facility]
--- NOTE | 2020-07-24 20:39 | PRG ---
DATE OF SERVICE: 07/24/2020 SUBJECTIVE: Mr. Mart had a declining day. On the good part, his loose bowel movement has decreased down to one bout. He grew progressively weaker. He has more difficulty getting out of bed into chair. He believed his scrotal swelling has increased, penile swelling has increased, abdominal girth has increased. He did the best he can in limiting his oral intake. On the other hand, he did have a good night of sleep, he felt well rested this morning. REVIEW OF SYSTEMS: GENERAL: There is no fever or chills, but there is now some cough. HEENT: There is no change in vision, hearing, or swallowing. He is hard of hearing, this is chronic. PULMONARY: He is a little bit more short of breath than yesterday. CARDIAC: There is no chest pain, palpitations, or syncope. GI: There is no nausea or vomiting. His loose stool has decreased. : He has a De catheter in. MUSCULOSKELETAL: He has chronic back pain, but he has not complained of back pain or joint pains right now. INTEGUMENT: There is no report of new skin breakdown. NEUROLOGIC: There are no focal deficits or weaknesses. MEDICATIONS: His medications that have cardiac effect include; 1. Albuterol and ipratropium nebs q.4 hours. 2. Amiodarone has been decreased down to 200 mg daily. 3. Atorvastatin 20 mg at bedtime. 4. Dobutamine currently at 2 mcg/kg per minute. 5. Fluconazole 200 mg daily. 6. Gabapentin at 100 mg b.i.d. 7. Magnesium oxide 400 mg b.i.d. 8. Solu-Medrol at 40 mg IV daily. 9. Milrinone at 0.25 mcg/kg per minute. 10. Dulera 200/5 mcg inhaler. 11. Protonix 40 mg b.i.d. 12. Sildenafil currently at 20 mg q.8 hours. 13. Sucralfate 1 g with meals. 14. Flomax 0.4 mg daily. Telemetry was reviewed, he is in sinus rhythm. However, he had 3-beat run of wide-complex tachycardia early this morning. Besides that, there is no other concerning arrhythmia. He does have some PVCs. PHYSICAL EXAMINATION: VITAL SIGNS: His systolic blood pressure remains between 111 to 137, currently his blood pressure is 132/64 with heart rate 95. GENERAL: He is alert, conversational, is able to speak strongly, but he is more short of breath. HEENT: Shows EOMI. Oropharynx is benign with moist mucosa. NECK: His JVP is elevated at 14 cm, about the earlobe. PULMONARY: His breath sounds are distant. He has both wheeze and crackles at his bases today. His lungs are more wet today. CARDIAC: Regular rate and rhythm with occasional irregularity with 2/6 holosystolic murmur at the apex. ABDOMEN: More distended, soft, nontender. His epigastric pain is not there now. EXTREMITIES: Lower extremity edema, he has about 1.5 cm edema from his feet all the way up to his thighs and up to his waist. However, his calves are still loose, in comparison to two weeks ago, it is still better than two weeks ago. LABORATORY VALUES: White cell count 6.8, hemoglobin 8.6, platelets 107. His chemistry shows sodium 128, potassium 5.2, chloride 97, bicarb 17, BUN at 120, creatinine 4.85. BUN has stabilized, decreased slightly, but the creatinine has increased again significantly. His 24-hour input and output are 1352 in and 275 out. Thus, he is still oliguric. ASSESSMENT: 79-year-old gentleman suffers from multitude of difficult problems. Currently, his renal failure is the most pressing. Despite efforts over last 3 days including increasing inotrope, giving high IV fluids with albumin, optimizing blood pressure and avoiding all diuretics for 3 days, there has been no significant movement, rather his urine output is still oliguric and he is getting more edematous. Thus, he may face dialysis soon. However, this is up to the care of Nephrology. He has [place] Heart Association stage C, [place] Heart Association class 3B heart failure with preserved ejection fraction. He has predominant right ventricle failure due to pulmonary hypertension. He also has left ventricular diastolic dysfunction. Right now, he is as optimized as possible with combination of milrinone, sildenafil, and low-dose dobutamine. I had to decrease the amount of amiodarone due to liver dysfunction and with that return of wide-complex tachycardia beats (only 3), I will need to reduce and then titrate off dobutamine. His other problems include, he was admitted for left hip septic joint, this is his fourth operation. He completed a course of antibiotics for that and currently it is not a problem anymore right now. He has severe chronic obstructive pulmonary disease, still requiring steroids. He has pulmonary hypertension that is causing cor pulmonale. He also has repeated GI bleeds from AVM, but currently stable. RECOMMENDATIONS: 1. Decrease dobutamine down to 1 mcg/kg per minute now. 2. Stop dobutamine at noon today. He should have sufficient pressure to provide forward flow to the kidney. 3. Continue milrinone at 0.25 mcg/kg per minute for now. 4. We will coordinate with Nephrology in case they want to start dialysis. If dialysis is contemplated, I will reduce the sildenafil to 10 mg three times a day, so he will have enough pressures to go through dialysis. It has been a pleasure taking care of Mr. Mart. If you have any questions, please give me a call. Time for this ICU visit is 40 minutes. This includes personally performing history and physical, reviewing data, coordinating care, interacting with family and direct patient interaction, and also titrating drips. Job ID: [id number] MTDD
[2020-07-24] MEDS: Atorvastatin Calcium 20 MG TAB PO SCH (22:10)
[2020-07-24] MEDS: Acetaminophen 325 MG TAB PO PRN (22:23)
[2020-07-24] MEDS: Mag-Al 1200 mg/1200 mg/30 ML UDCUP PO PRN (22:24)
[2020-07-25] MEDS: Milrinone Lactate/D5W 20 MG in Premix Bag 1 BAG IV SCH ×2 (00:11→13:49)
[2020-07-25 03:38] LABS: Hemoglobin 8.1 g/dL (14.0-18.0); Mean Corpuscular HGB CONC 31.8 g/dL (32.0-36.0); Mean Corpuscular Volume 91.4 fL (78.0-98.0); Mean Platelet Volume 9.6 fL (7.4-10.4); Platelet Count 164 thou/uL (130-400); RBC Distribution Width 17.7 % (11.5-14.5); Red Blood Cell (RBC) Count 2.78 mill/uL (4.70-6.10); White Blood Cell (WBC) Count 7.3 thou/uL (4.8-10.8)
[2020-07-25 03:39] LABS: #Lymphocytes 0.2 thou/uL (1.20-3.40); #Monocytes 0.3 thou/uL (0.11-0.59); %Eosinophils 0.1 % (0.0-10.0); %Lymphocytes 2.9 % (21.0-51.0); %Monocytes 5.1 % (0.0-10.0); %Neutrophils 91.9 % (42.0-75.0); Hemoglobin 8.2 g/dL (14.0-18.0); Mean Corpuscular HGB CONC 32.5 g/dL (32.0-36.0); Mean Corpuscular Hemoglobin 29.7 pg (27.0-31.0); Mean Corpuscular Volume 91.2 fL (78.0-98.0); Mean Platelet Volume 9.7 fL (7.4-10.4); Platelet Count 165 thou/uL (130-400); RBC Distribution Width 17.9 % (11.5-14.5); Red Blood Cell (RBC) Count 2.75 mill/uL (4.70-6.10); White Blood Cell (WBC) Count 6.6 thou/uL (4.8-10.8)
[2020-07-25 04:04] LABS: Anion Gap 20 mmol/L (10-20); Calc. Creatinine Clearance 17 mL/min (70-130); Calcium 7.9 mg/dL (7.8-10.44); Carbon Dioxide 18 mmol/L (23-31); Chloride 97 mmol/L (98-107); Estimated GFR-MDRD 11; Glucose 193 mg/dL (83-110); Magnesium 3.1 mg/dL (1.6-2.6); Potassium 5.1 mmol/L (3.5-5.1); Sodium 130 mmol/L (136-145)
[2020-07-25 04:15] LABS: BUN (Urea Nitrogen) 126 mg/dL (8.4-25.7)
[2020-07-25] MEDS: Sildenafil Citrate 20 MG TAB PO SCH ×3 (05:35→21:38)
[2020-07-25] MEDS: Sucralfate 1 GM TAB PO SCH ×3 (08:25→16:47)
[2020-07-25] MEDS: Senokot S 8.6-50 MG TAB PO SCH ×2 (08:25→21:39)
[2020-07-25] MEDS: guaiFENesin ER 600 MG TAB PO SCH ×2 (08:26→21:38)
[2020-07-25] MEDS: Cholecalciferol 1,000 UNITS (25 MCG) TAB PO SCH (08:26)
[2020-07-25] MEDS: Magnesium Oxide 400 MG TAB PO SCH ×2 (08:26→21:38)
[2020-07-25] MEDS: Gabapentin 100 MG CAP PO SCH ×2 (08:26→21:38)
[2020-07-25] MEDS: Amiodarone 200 MG TAB PO SCH (08:26)
[2020-07-25] MEDS: methylPREDNISolone Sod Succ 40 MG VIAL IVP SCH (08:27)
[2020-07-25] MEDS: Nystatin Powder 15 GM BOT TOP SCH ×2 (08:27→21:39)
[2020-07-25] MEDS: Tamsulosin HCl 0.4 MG CAP PO SCH (08:27)
[2020-07-25] MEDS: Multivitamin W/ Minerals 1 TAB PO SCH (08:27)
[2020-07-25] MEDS: Fluticasone Propionate Nasal Spray 16 gm Bottle NASAL SCH (08:27)
[2020-07-25] MEDS ORDERED: Dextrose 5% in Water 1,000 ML IV PRN (09:30)
[2020-07-25] MEDS ORDERED: Dextrose 50% Abboject 50 ML SYRINGE IVP PRN (09:30)
--- NOTE | 2020-07-25 11:31 | PRG ---
DATE OF SERVICE: 07/25/2020 SUBJECTIVE: This morning, he is awake, alert, and responsive. He is better. He is sitting on high-flow without any distress. OBJECTIVE: VITAL SIGNS: Blood pressure 120/62, , saturations 90%. CHEST: Decreased breath sounds. No wheezing. CARDIAC: Normal S1 and S2. No gallops. LABORATORY DATA: Creatinine is 5, BUN 126. White count 7000, H and H are stable. ASSESSMENT: Worsening renal failure, chronic obstructive pulmonary disease, congestive heart failure. PLAN: Pulmonary has not much to offer at this time. I will continue cardiac care, neb treatments, steroids. We will follow. Job ID: [id number]
[2020-07-25] MEDS: Insulin Regular 300 UNITS/3 ML VIAL SC PRN ×3 (11:44→21:41)
[2020-07-25] MEDS ORDERED: Heparin 10,000 UNITS/ 10 ML VIAL ONE (12:24)
--- NOTE | 2020-07-25 12:32 | PRG ---
DATE OF SERVICE: 07/25/2020 SERVICE: [facility]. SUBJECTIVE: Mr. Mart had a good day. In the morning and throughout the day, he has increasing fluid buildup. He is getting more and more congested. He was having pressure in his chest, becoming more difficult to breathe. He also felt like his scrotum area has increased swelling. This is by drinking very little. Dialysis was started overnight. They pulled off 2 L of fluid. After that, he said he felt much better. He is breathing easier, able to sleep well. Surprisingly after this dialysis overnight, he actually had increased urine output 350 mL. REVIEW OF SYSTEMS: GENERAL: There is no fever, chills, or productive cough. HEENT: There is no change in vision, hearing, or swallowing. He is chronically hard of hearing. PULMONARY: Please see HPI. CARDIAC: There is no palpitation, chest pain, or syncope. GI: He is eating and not having loose bowel movement at this time. : He has a De catheter placed and is currently draining. MUSCULOSKELETAL: Not complaining of pains today. INTEGUMENT: No new skin breakdown. NEUROLOGIC: There are no focal deficits or weaknesses. MEDICATIONS: 1. Albuterol and ipratropium nebs q.4 hours. 2. Amiodarone 200 mg daily. 3. Atorvastatin 20 mg at bedtime. 4. Gabapentin 100 mg b.i.d. 5. Magnesium oxide 400 mg b.i.d. 6. Solu-Medrol 40 mg IV daily. 7. Milrinone 0.25 mcg/kg/minute. 8. Dulera 200/5 mcg combination one puff twice a day. 9. Protonix 40 mg b.i.d. 10. Sildenafil 10 mg p.o. q.8 hours. 11. Sucralfate 1 g p.o. a.c. 12. Flomax 0.4 mg daily. Telemetry was reviewed. It showed predominant sinus rhythm. However, he has atrial beats and some junctional rhythms. His average rate about 90s. There are no concerning arrhythmias. He has a wide range of a systolic blood pressure that ranged from 110 to 150. OBJECTIVE: VITAL SIGNS: His current vitals are heart rate 91, blood pressure 127/62. GENERAL: He is alert and conversational. Breathing easier than yesterday morning. HEENT: Show EOMI. Oropharynx is benign with moist mucosa. NECK: JVP is elevated at least 13 cm with positive hepatojugular reflux. PULMONARY: He has distant breath sounds. There is less wheeze than yesterday, but he still has slight bilateral basilar wheeze. He has bibasilar crackles, but then this is a little better than yesterday CARDIAC: Regular rate and rhythm with occasional irregularities. There is 2/6 holosystolic murmur at the left sternal border. There is 2/6 holosystolic murmur at the apex. ABDOMEN: Mildly distended, soft, nontender. Positive bowel sounds. EXTREMITIES: Lower extremities have about 1.5 cm pitting edema from feet to his knees and has pitting edema in his thighs and some in his waist; however, this is less than yesterday. LABORATORY DATA: His urine output for last 12 hours is 300 mL. The dialysis fluid removal was 2000 mL. ASSESSMENT: 79-year-old gentleman is now dialysis dependent for volume removal. One session of dialysis has made a significant impact. His urine output seemed to increase slightly. Perhaps decreasing his central venous pressure allows slightly greater amount of blood flow to his kidneys. He is still very much volume overloaded. He will need to continue dialysis. He has [place] Heart Association stage C, [place] Heart Association class 3B heart failure with preserved ejection fraction; however, it is predominantly a right ventricular failure. This is secondary to likely chronic pulmonary hypertension. He is currently depending on milrinone 0.25 mcg/kg/minute. This is sufficient dosage and it is most appropriate for his renal function. If needed, we can add dobutamine. The patient has multiple difficult problems. He was originally admitted for left septic hip joint that was replaced. He is completing antibiotics for that. He also has severe steroid dependent chronic obstructive pulmonary disease. He also has mixed pulmonary hypertension. His overall prognosis is very very grim. RECOMMENDATIONS: 1. Transfuse 1 unit of blood with dialysis. 2. Continue milrinone at 0.25 mcg/kg/minute. 3. We will add dobutamine if needed to provide enough support for his dialysis session. It has been a pleasure taking care of Mr. Mart. If any questions, please give me a call. The total ICU time is over 35 minutes. This included personally performing history and physical, counseling the patient's , and coordinating care with other services, and also reviewing data. Job ID: [id number] MTDD
--- NOTE | 2020-07-25 13:02 | PRG ---
DATE OF SERVICE: 07/25/2020 SUBJECTIVE: An 79-year-old gentleman, being seen for end-stage renal disease. The patient denied nausea, vomiting, or chest pain. PHYSICAL EXAMINATION: GENERAL: The patient is awake and alert. VITAL SIGNS: Afebrile, pulse 87, breathing at 16, blood pressure 138/69. HEENT: Head normocephalic and atraumatic. Eyes intact, no ulcers. Nose intact, no ulcers. Ears intact, no ulcers. NECK: Supple. No JVD. CHEST: Symmetrical and clear. CARDIOVASCULAR: Shows S1 and S2, no rub, no murmur. GASTROINTESTINAL: Abdomen is soft, bowel sounds positive. EXTREMITIES: Show no edema or ulcers. SKIN: Shows no rash or petechiae. MUSCULOSKELETAL: Shows no joint swelling or stiffness. GENITOURINARY: Shows no De or CVA tenderness. NEUROLOGIC: Motor intact. Cranial nerves intact. LABORATORY DATA: Labs show hemoglobin 8.2. ASSESSMENT AND PLAN: 1. Stage 6 chronic kidney disease, plan dialysis. 2. Hypertension, stable. 3. Metabolic acidosis, plan dialysis. 4. Uremia, plan dialysis. 5. Anemia, we will give blood with dialysis. Job ID: [id number]
[2020-07-25] MEDS: Mometasone 200 MCG/Formoterol 5 MCG 120 PUFF INHALER INH SCH ×2 (15:15→18:38)
[2020-07-25] MEDS: Atorvastatin Calcium 20 MG TAB PO SCH (21:38)
[2020-07-25] MEDS: Acetaminophen 325 MG TAB PO PRN (21:39)
[2020-07-25] MEDS: diphenhydrAMINE 25 MG CAP PO PRN (22:50)
[2020-07-26] MEDS: Milrinone Lactate/D5W 20 MG in Premix Bag 1 BAG IV SCH (01:54)
[2020-07-26 04:04] LABS: Hemoglobin 9.7 g/dL (14.0-18.0); Mean Corpuscular HGB CONC 33.1 g/dL (32.0-36.0); Mean Corpuscular Volume 90.7 fL (78.0-98.0); Platelet Count 158 thou/uL (130-400); Red Blood Cell (RBC) Count 3.22 mill/uL (4.70-6.10); White Blood Cell (WBC) Count 8.6 thou/uL (4.8-10.8)
[2020-07-26 04:06] LABS: #Lymphocytes 0.3 thou/uL (1.20-3.40); #Monocytes 0.5 thou/uL (0.11-0.59); #Neutrophils 7.3 thou/uL (1.40-6.50); %Eosinophils 0.1 % (0.0-10.0); %Lymphocytes 3.4 % (21.0-51.0); %Neutrophils 90.4 % (42.0-75.0); Hemoglobin 9.7 g/dL (14.0-18.0); Mean Corpuscular HGB CONC 33.6 g/dL (32.0-36.0); Mean Corpuscular Hemoglobin 30.4 pg (27.0-31.0); Mean Corpuscular Volume 90.4 fL (78.0-98.0); Mean Platelet Volume 9.9 fL (7.4-10.4); Platelet Count 158 thou/uL (130-400); White Blood Cell (WBC) Count 8.1 thou/uL (4.8-10.8)
[2020-07-26 04:31] LABS: Anion Gap 19 mmol/L (10-20); BUN (Urea Nitrogen) 122 mg/dL (8.4-25.7); Calc. Creatinine Clearance 18 mL/min (70-130); Carbon Dioxide 20 mmol/L (23-31); Chloride 97 mmol/L (98-107); Estimated GFR-MDRD 12; Glucose 234 mg/dL (83-110); Potassium 4.7 mmol/L (3.5-5.1); Sodium 131 mmol/L (136-145)
[2020-07-26] MEDS: Insulin Regular 300 UNITS/3 ML VIAL SC PRN ×3 (05:59→20:55)
[2020-07-26] MEDS: Sildenafil Citrate 20 MG TAB PO SCH ×4 (06:02→22:35)
[2020-07-26] MEDS: Mometasone 200 MCG/Formoterol 5 MCG 120 PUFF INHALER INH SCH ×2 (06:34→18:52)
[2020-07-26] MEDS ORDERED: Heparin 10,000 UNITS/ 10 ML VIAL ONE (08:41)
[2020-07-26] MEDS: Sucralfate 1 GM TAB PO SCH ×3 (09:14→17:36)
[2020-07-26] MEDS: Cholecalciferol 1,000 UNITS (25 MCG) TAB PO SCH (09:15)
[2020-07-26] MEDS: Gabapentin 100 MG CAP PO SCH ×2 (09:15→20:55)
[2020-07-26] MEDS: Nystatin Powder 15 GM BOT TOP SCH ×2 (09:15→20:55)
[2020-07-26] MEDS: Tamsulosin HCl 0.4 MG CAP PO SCH (09:15)
[2020-07-26] MEDS: Magnesium Oxide 400 MG TAB PO SCH ×2 (09:15→20:55)
[2020-07-26] MEDS: Multivitamin W/ Minerals 1 TAB PO SCH (09:15)
[2020-07-26] MEDS: methylPREDNISolone Sod Succ 40 MG VIAL IVP SCH (09:15)
[2020-07-26] MEDS: Fluticasone Propionate Nasal Spray 16 gm Bottle NASAL SCH (09:15)
[2020-07-26] MEDS: Amiodarone 200 MG TAB PO SCH (09:15)
[2020-07-26] MEDS: guaiFENesin ER 600 MG TAB PO SCH ×2 (09:15→20:54)
[2020-07-26] MEDS: Senokot S 8.6-50 MG TAB PO SCH ×2 (09:16→20:56)
--- NOTE | 2020-07-26 10:02 | PRG ---
DATE OF SERVICE: SUBJECTIVE: This morning, he is awake, responsive. He is going to be dialyzed. OBJECTIVE: VITAL SIGNS: Temperature 98, sats 100% on high flow rate 40%, 35 and blood pressure 140/73. CHEST: Decreased breath sounds. No wheezing. CARDIAC: Normal S1 and S2. No gallops. ABDOMEN: No masses. LABORATORY DATA: Creatinine 4, BUN 122. White count 8000. IMPRESSION: Congestive heart failure, respiratory failure, severe deconditioning, and prolonged hospitalization. PLAN: Pulmonary will continue to follow. Continue supportive care. His cardiac medicine once they switch over to p.o. medication, he can probably be transitioned to a monitored bed. We will follow. Job ID: [id number]
--- NOTE | 2020-07-26 10:15 | PRG ---
DATE OF SERVICE: 07/26/2020 SUBJECTIVE: Mr. Blas had a good day. He went through second session of dialysis. He was able to maintain the blood pressure. It was reported that 2.3 L was able to be taken off. He said he felt tired afterwards. He is actually breathing easier, but is feeling tired. He complains a lot about scrotal pain. His scrotal edema is still present and movements will cause great pain. REVIEW OF SYSTEMS: GENERAL: There is no fever, chills, productive cough, but a little bit more fatigue. HEENT: There is no change in vision, hearing, or swallowing. He has chronic difficulty with hearing. PULMONARY: Breathing easier. CARDIAC: There are no reports of chest pain, palpitations, or syncope. GI: He does not complain any GI symptoms today. : He has a De catheter. MUSCULOSKELETAL: He is not complaining of back pain today, but he does have chronic back pain. INTEGUMENT: There is no report of new skin breakdown. NEUROLOGIC: There are no focal deficits or weakness. However, he does complain of bilateral leg pain that is diffuse. MEDICATION: The medications that have cardiac effect include 1. Albuterol ipratropium nebs q.4 hours. 2. Amiodarone 200 mg daily. 3. Atorvastatin 20 mg at bedtime. 4. Gabapentin 100 mg b.i.d. 5. Regular insulin, now sliding scale. 6. Magnesium oxide 400 mg b.i.d. 7. Solu-Medrol 40 mg IV daily. 8. Milrinone currently at 0.25 mcg/kg per minute. 9. Protonix at 40 mg b.i.d. 10. Sildenafil at 10 mg p.o. q.8 hours. 11. He also has sucralfate for GI protection. 12. Tamsulosin at 0.4 mg daily, which is Flomax. Telemetry was reviewed. He is mainly in sinus rhythm. However, he has different P wave morphology at times that will make him to have ectopic atrial rhythm at times. 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 He did have one small run of a 4-beat ventricular tachycardia. Other than that, there are no other arrhythmias. Telemetry was reviewed. He is mainly in sinus rhythm. However, he has different P wave morphology at times that will make him to have ectopic atrial rhythm at times. 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 He did have one small run of a 4-beat ventricular tachycardia. Other than that, there are no other arrhythmias. PHYSICAL EXAMINATION: VITAL SIGNS: His systolic blood pressure ranges between 110 to 139 this morning. His heart rate is 83, systolic blood pressure 130 and diastolic blood pressure 60. GENERAL: He is alert and conversational, but more desperate this morning, but he is less short of breath than yesterday. HEENT: EOMI. Oropharynx benign with moist mucosa. NECK: JVP is elevated about 13 to 14 cm. LUNGS: Breath sounds are distant. However, his lungs do sound better today. There is better air movement. There is still slight bibasilar wheeze. CARDIAC: Regular rate and rhythm mostly with occasional irregularity, normal S1 and S2, there is a 2/6 holosystolic murmur at the left upper sternal border. There is also 2/6 holosystolic murmur at the apex with radiation to the left axilla. ABDOMEN: Mildly distended, soft, nontender, positive bowel sounds. EXTREMITIES: Lower extremity, he has a dialysis catheter is in the left groin. His pitting edema has decreased. He has about 1.5 cm pitting edema from the feet toward knees, it is less than yesterday. There is some pitting edema about his thighs. LABORATORY DATA: This morning, white cell count 8.1, hemoglobin 9.7, platelet 158. His sodium is 131, potassium 4.7, chloride 197, bicarb 20, BUN 122, creatinine 4.64 and magnesium 3. His inputs and outputs yesterday are, he had 2000 mL in, he actually had a De urine output of 550 mL was reported that he had 2.3 L net negative from dialysis. ASSESSMENT: 79-year-old gentleman is now most likely dialysis dependent. However, he still has significant amount of urine output approximately about 550 mL per day. There is still small chance that his renal function may recover. So I will leave his milrinone on board for now. If there is no chance for the renal function to recover, then I will stop the milrinone and increase his sildenafil and use sildenafil only to treat his mixed pulmonary hypertension. He has [place] Heart Association stage C, [place] Heart Association class IIIB heart failure with preserved ejection fraction. It is a predominant right heart failure/cor pulmonale. This is from his long-standing pulmonary hypertension. He suffered from multipe medical health problems that are intractable. He was originally admitted for surgery of the left hip joint. His septic joint is being treated, he has completed the IV antibiotic treatment now. He has severe steroid dependent COPD. He also has a mixed pulmonary hypertension with systolic blood pressure in the pulmonary side at about 85. He also has AVM that cause frequent GI bleeds. This combination in addition of needing dialysis and right heart failure make him to have a very grim prognosis. His status was discussed with him and his . At this point, outpatient dialysis is the best they can hope for. RECOMMENDATIONS: 1. Continue milrinone 0.25 mcg/kg per minute now in hopes that his renal function will return. If his renal function does not return, I will titrate off milrinone. 2. Please consider continued dialysis. The patient needs much more volume removal. 3. Please provide clothing to support his scrotum. If he can keep his scrotum from dropping, that will provide significant amount of relief. 4. His gabapentin is on low dose. We will increase the dose of gabapentin for his neurologic pain. If not possible will use dialysis appropriate dose Lyrica It has been a pleasure taking care of . Bin Mart. If any questions, please give me a call. The total visitation time was 45 minutes today. This includes personally performing history and physical, reviewing data, coordinating care, and spending time with him and his in counseling session. Job ID: [id number] MTDD
[2020-07-26] MEDS ORDERED: Pregabalin 25 MG CAP PO SCH (10:30)
[2020-07-26] MEDS: Mag-Al 1200 mg/1200 mg/30 ML UDCUP PO PRN (17:36)
--- NOTE | 2020-07-26 19:58 | PRG ---
DATE OF SERVICE: 07/26/2020 SUBJECTIVE: An 79-year-old gentleman, being seen for end-stage renal disease. The patient denied nausea, vomiting, or chest pain. PHYSICAL EXAMINATION: General: The patient is awake and alert. Vital Signs: Afebrile, pulse , breathing at 16, blood pressure 120/55. HEENT: Head normocephalic and atraumatic. Eyes intact, no ulcers. Nose intact, no ulcers. Ears intact, no ulcers. Neck: Supple. No JVD. Chest: Symmetrical and clear. Cardiovascular: Shows S1 and S2, no rub, no murmur. Gastrointestinal: Abdomen is soft, bowel sounds positive. Extremities: Show no edema or ulcers. Skin: Shows no rash or petechiae. Musculoskeletal: Shows no joint swelling or stiffness. Genitourinary: Shows no De or CVA tenderness. Neurologic: Motor intact. Cranial nerves intact. LABORATORY DATA: Labs show hemoglobin 9.7. Potassium 4.0. ASSESSMENT AND PLAN: 1. Stage 6 chronic kidney disease, plan dialysis. 2. Hypertension, stable. 3. Anemia, stable. 4. 4+ edema. Continue daily dialysis. Job ID: [id number]
[2020-07-26] MEDS: Atorvastatin Calcium 20 MG TAB PO SCH (20:54)
[2020-07-26] MEDS: diphenhydrAMINE 25 MG CAP PO PRN (22:35)
[2020-07-26] MEDS: Acetaminophen 325 MG TAB PO PRN (22:35)
[2020-07-27 03:19] LABS: #Lymphocytes 0.2 thou/uL (1.20-3.40); #Monocytes 0.5 thou/uL (0.11-0.59); #Neutrophils 8.1 thou/uL (1.40-6.50); %Eosinophils 0.2 % (0.0-10.0); %Lymphocytes 2.4 % (21.0-51.0); %Monocytes 5.6 % (0.0-10.0); %Neutrophils 91.7 % (42.0-75.0); Hemoglobin 9.4 g/dL (14.0-18.0); Mean Corpuscular HGB CONC 33.3 g/dL (32.0-36.0); Mean Corpuscular Hemoglobin 30.6 pg (27.0-31.0); Mean Platelet Volume 9.7 fL (7.4-10.4); Platelet Count 153 thou/uL (130-400); RBC Distribution Width 17.2 % (11.5-14.5); Red Blood Cell (RBC) Count 3.08 mill/uL (4.70-6.10); White Blood Cell (WBC) Count 8.8 thou/uL (4.8-10.8)
[2020-07-27 03:42] LABS: Anion Gap 17 mmol/L (10-20); BUN (Urea Nitrogen) 101 mg/dL (8.4-25.7); Calc. Creatinine Clearance 20 mL/min (70-130); Calcium 7.7 mg/dL (7.8-10.44); Carbon Dioxide 22 mmol/L (23-31); Chloride 99 mmol/L (98-107); Estimated GFR-MDRD 14; Glucose 328 mg/dL (83-110); Magnesium 2.9 mg/dL (1.6-2.6); Potassium 4.6 mmol/L (3.5-5.1); Sodium 133 mmol/L (136-145)
[2020-07-27] MEDS: Sildenafil Citrate 20 MG TAB PO SCH ×3 (05:54→21:26)
[2020-07-27] MEDS: Insulin Regular 300 UNITS/3 ML VIAL SC PRN ×2 (05:56→18:16)
[2020-07-27] MEDS: Mometasone 200 MCG/Formoterol 5 MCG 120 PUFF INHALER INH SCH ×2 (07:34→18:45)
[2020-07-27] MEDS: Senokot S 8.6-50 MG TAB PO SCH ×2 (07:42→21:25)
[2020-07-27 08:46] LABS: Phosphorus 3.3 mg/dL (2.3-4.7)
--- NOTE | 2020-07-27 09:15 | PRG ---
DATE OF SERVICE: 07/27/2020 SUBJECTIVE: An 79-year-old gentleman, remains in the MICU, on amiodarone drip. He is being dialyzed today. He said he is feeling better. He is also on Dobutrex, 40 of steroids. Denies any chest pain or wheezing. OBJECTIVE: VITAL SIGNS: Saturations are 96% on high-flow. CHEST: Decreased breath sounds. No wheezing or rhonchi. CARDIAC: Normal S1 and S2. No gallops. ABDOMEN: No masses. LABORATORY DATA: Creatinine is 4, BUN 101. White count 8000. ASSESSMENT AND PLAN: Diastolic dysfunction, respiratory failure, renal failure, severe deconditioning, chronic obstructive pulmonary disease, cardiac arrhythmias. I am going to switch him over to some p.o. prednisone. Hopefully, we can discontinue his inotropes. Aggressive PT. Eventually, long-term placement. Job ID: [id number]
--- NOTE | 2020-07-27 10:02 | PRG ---
DATE OF SERVICE: 07/27/2020 SUBJECTIVE: Mr. Mart had a good day. He went to another dialysis session. This time, they were able to remove 4 L of fluid. Afterwards, he felt better. He is fatigued from the dialysis. However, he felt like the fluid is coming off him and breathing is a bit easier. REVIEW OF SYSTEMS: GENERAL: There is no fever or chills and there is no productive cough. HEENT: There is no change in vision, hearing, or swallowing. He has chronic hard of hearing. PULMONARY: Please see HPI. CARDIAC: There is no chest pain, palpitations, or syncope. GI: There is no nausea, vomiting, or diarrhea. : He has a De catheter placed. However, he has penile and scrotal swelling. MUSCULOSKELETAL: He is not complaining of any muscle or joint pains today. INTEGUMENT: There is no new complaint of skin breakdown. NEUROLOGIC: There are no focal deficits or weaknesses. MEDICATIONS: 1. Albuterol and ipratropium nebs q.4 hours. 2. Amiodarone 200 mg daily. 3. Atorvastatin 20 mg at bedtime. 4. Fluticasone daily. 5. Gabapentin 100 mg b.i.d. 6. Regular insulin moderate sliding scale. 7. Magnesium oxide 400 mg b.i.d. 8. Solu-Medrol 40 mg IV daily. 9. Milrinone currently at 0.25 mcg/kg per minute. 10. Dulera 200 mcg/5 mcg combination 2 puffs b.i.d. 11. Protonix 40 mg b.i.d. 12. Lyrica 25 mg daily. 13. Sildenafil 10 mg q.8 hours. 14. Sucralfate 1 g with meals. 15. Flomax 0.4 mg daily. His telemetry was reviewed. He is predominantly in sinus rhythm. However, he has different P wave morphology. Also has PACs. There are no concerning arrhythmias for the last 24 hours. PHYSICAL EXAMINATION: CURRENT VITAL SIGNS: Heart rate 89, blood pressure 117/64. GENERAL: He is alert and conversational, reclining comfortably in bed. He looks little more energetic today. HEENT: EOMI. Oropharynx is benign with moist mucosa. NECK: His JVP is still very elevated about 13 cm least at the earlobe. PULMONARY: There is better air movement today. There is still diffuse wheeze at bases, but then crackles are now gone. CARDIAC: Mainly regular rhythm, but there are occasional irregularities. There is 2/6 holosystolic murmur at the left sternal border. There is also 2/6 holosystolic murmur at the apex. ABDOMEN: Mildly distended, soft, nontender. Positive bowel sounds. This is actually decreased. EXTREMITIES: He has pitting edema at his thighs. He has penile and also scrotal edema. It is actually less than yesterday. He still has 1.5 cm pitting edema from feet all the way to about his knee. His calves are now much looser, so his fluid level throughout the body is continuing to decrease. LABORATORY VALUES: White cell count 8.8, hemoglobin 9.4, platelets 153. His chemistries show potassium 4.6, chloride 99, bicarb 22, BUN 101, creatinine of 4.26. His calcium is only 7.7. ASSESSMENT: 79-year-old gentleman continued to improvement from volume status with dialysis. He has sufficient blood pressure to support dialysis. He resides in [place] Heart Association stage C, [place] Heart Association class 3B heart failure with preserved ejection fraction. He has predominantly right heart failure-cor pulmonale. With his lowering blood pressure, I will need to decrease, perhaps titrate off milrinone for now. We will also decrease sildenafil all in support of dialysis. Long-term bolton, the best possible hope we will be using amiodarone to control his arrhythmia and sildenafil to lower his PA pressures. To hold sildenafil before dialysis. This gentleman suffers from a host of difficult problems. 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 Now, he has end-stage renal disease, needing dialysis. 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 Lastly, he was originally admitted for left hip joint infection that required surgery. Thus, his overall prognosis is still very poor. RECOMMENDATIONS: 1. Decrease milrinone to 0.125 mcg/kg/minute. 2. Decrease sildenafil to 5 mg p.o. q.8 hours. 3. These are done in support of dialysis. 4. There is a good chance that we will titrate off the milrinone to see how he will do. Conversely, on nondialysis days, we could use either mineral or dobutamine augmentation to see if there is any improvement in renal function without dialysis. It has been a pleasure taking care of Mr. Mart. If you have any questions, please give me a call. This visit took about 35 minutes. This includes personally performing history and physical, reviewing data, coordinating care, titrating drips, and counseling family members and direct patient interaction. Job ID: [id number] MTDD
--- NOTE | 2020-07-27 12:12 | PRG ---
DATE OF SERVICE: SUBJECT: An 79-year-old gentleman being seen for end-stage renal disease. The patient denies nausea, vomiting, or chest pain. OBJECTIVE: GENERAL: The patient is awake and alert. VITAL SIGNS: Pulse 75, breathing 16, blood pressure 130/65. HEENT: Head normocephalic and atraumatic. Eyes intact, no ulcers. Nose intact, no ulcers. Ears intact, no ulcers. Neck: Supple. No JVD. Chest: Symmetrical and clear. Cardiovascular: Shows S1 and S2, no rub, no murmur. Gastrointestinal: Abdomen is soft, bowel sounds positive. Extremities: Show no ulcers. The patient has 4+ edema. Skin: Shows no rash or petechiae. Musculoskeletal: Shows no joint swelling or stiffness. Genitourinary: Shows no De or CVA tenderness. Neurologic: Motor intact. Cranial nerves intact. ASSESSMENT: 1. Stage 6 chronic kidney disease. Continue dialysis. 2. Hypertension, stable. 3. Anemia, stable. PLAN: Outpatient discharge planning has been discussed. We will try to wean off pressors. Job ID: [id number]
[2020-07-27] MEDS ORDERED: Heparin 10,000 UNITS/ 10 ML VIAL ONE (13:17)
[2020-07-27] MEDS: Sucralfate 1 GM TAB PO SCH ×3 (14:31→18:14)
[2020-07-27] MEDS: Tamsulosin HCl 0.4 MG CAP PO SCH (14:33)
[2020-07-27] MEDS: Multivitamin W/ Minerals 1 TAB PO SCH (14:33)
[2020-07-27] MEDS: Gabapentin 100 MG CAP PO SCH ×2 (14:33→21:24)
[2020-07-27] MEDS: guaiFENesin ER 600 MG TAB PO SCH ×2 (14:34→21:24)
[2020-07-27] MEDS: Pregabalin 25 MG CAP PO SCH (14:34)
[2020-07-27] MEDS: Magnesium Oxide 400 MG TAB PO SCH ×2 (14:34→21:24)
[2020-07-27] MEDS: Amiodarone 200 MG TAB PO SCH (14:35)
[2020-07-27] MEDS: Nystatin Powder 15 GM BOT TOP SCH ×2 (14:36→21:25)
[2020-07-27] MEDS: Cholecalciferol 1,000 UNITS (25 MCG) TAB PO SCH (14:36)
[2020-07-27] MEDS: Fluticasone Propionate Nasal Spray 16 gm Bottle NASAL SCH (14:37)
[2020-07-27] MEDS: methylPREDNISolone Sod Succ 40 MG VIAL IVP SCH (14:45)
--- NOTE | 2020-07-27 16:17 | PDOC.GSPN ---
Surgery Progress Note: Subj - Subjective Narrative: Patient is tolerating hemodialysis thus far. His brownell operator has requested a tunneled hemodialysis catheter and fistula for ongoing hemodialysis. I have ordered vein mapping. Patient is still being weaned off his pressors so I have put him on the schedule for Saturday for this procedure. Depending on his clinical appearance we may just do a tunneled dialysis catheter if he still has significant upper extremity edema. Surgery Progress Note: Obj - Vital signs Vital signs: Vital Signs - Most Recent Temp Pulse Resp BP Pulse Ox 98.4 F 91 22 H 137/69 95 07/27/20 12:00 07/27/20 14:29 07/27/20 14:29 07/25/20 15:30 07/27/20 14:29 Surgery Progress Note: Results - Labs Result Diagrams: 07/27/20 03:03 07/27/20 03:03 Lab results: Laboratory Results - last 12 hr 07/27/20 07/27/20 07/27/20 03:03 06:01 10:38 POC Glucose 260 H 234 H Phosphorus 3.3
--- NOTE | 2020-07-27 18:37 | ULT ---
EXAM: VEIN MAPPING FOR VENOUS ACCESS: 07/27/20 HISTORY: End-stage renal disease. Dialysis access. TECHNIQUE: German scale, color flow, Doppler imaging with spectral waveform analysis of the left and right upper e [facility] vascular system. FINDINGS: RIGHT UPPER EXTREMITY BRACHIAL ARTERY: 0.57 cm RADIAL ARTERY: 0.37 cm ULNAR ARTERY: 0.37 cm CEPHALIC VEIN Proximal Humerus: 0.19 cm Mid Humerus: 0.15 cm Distal Humerus: 0.12 cm Antecubital Fossa: 0.24 cm Proximal Forearm: 0.17 cm Mid Forearm: 0.12 cm Distal Forearm: 0.15 cm BASILIC VEIN Proximal Humerus: 0.64 cm Mid Humerus: 0.48 cm Distal Humerus: 0.41 cm Antecubital Fossa: 0.41 cm Proximal Forearm: 0.28 cm Mid Forearm: 0.23 cm Distal Forearm: 0.15 cm LEFT UPPER EXTREMITY BRACHIAL ARTERY: 0.71 cm RADIAL ARTERY: 0.34 cm ULNAR ARTERY: 0.28 cm CEPHALIC VEIN Proximal Humerus: 0.22 cm Mid Humerus: 0.11 cm Distal Humerus: 0.12 cm Antecubital Fossa: 0.12 cm Proximal Forearm: 0.27 cm Mid Forearm: 0.30 cm Distal Forearm: 0.23 cm BASILIC VEIN Proximal Humerus: 0.22 cm Mid Humerus: Obscured by bandage Distal Humerus: 0.36 cm Antecubital Fossa: 0.24 cm Proximal Forearm: 0.19 cm Mid Forearm: 0.25 cm Distal Forearm: 0.21 cm IMPRESSION: Vein mapping as above. POS: OFF
[2020-07-27] MEDS: Atorvastatin Calcium 20 MG TAB PO SCH (21:25)
[2020-07-28] MEDS: Sildenafil Citrate 20 MG TAB PO SCH ×3 (06:19→22:10)
[2020-07-28 06:32] LABS: Band 6 % (5-11); Hemoglobin 10.6 g/dL (14.0-18.0); Hypochromia SLIGHT = 6-15 cells (100X) (0-5/hpf); Lymphocytes 2 % (21-51); MDiff Complete? YES; Mean Corpuscular Volume 93.8 fL (78.0-98.0); Mean Platelet Volume 9.7 fL (7.4-10.4); Monocytes 4 % (0-10); Neutrophil 88 % (42-75); Platelet Count 164 thou/uL (130-400); Platelet Morphology Comment Appears Adequate; RBC Distribution Width 17.4 % (11.5-14.5); Red Blood Cell (RBC) Count 3.52 mill/uL (4.70-6.10); White Blood Cell (WBC) Count 15.5 thou/uL (4.8-10.8)
[2020-07-28] MEDS: Mometasone 200 MCG/Formoterol 5 MCG 120 PUFF INHALER INH SCH ×2 (08:04→18:22)
[2020-07-28 08:34] LABS: Elliptocytes SLIGHT = 2-5 cells (100X) (0-1/hpf); Metamyelocyte 1 % (0-0); Schistocytes SLIGHT = 2-5 cells (100X) (0-1/hpf)
[2020-07-28 09:37] LABS: Anion Gap 16 mmol/L (10-20); BUN (Urea Nitrogen) 92 mg/dL (8.4-25.7); Calc. Creatinine Clearance 20 mL/min (70-130); Carbon Dioxide 23 mmol/L (23-31); Chloride 97 mmol/L (98-107); Estimated GFR-MDRD 14; Glucose 148 mg/dL (83-110); Magnesium 2.9 mg/dL (1.6-2.6); Potassium 4.7 mmol/L (3.5-5.1); Sodium 131 mmol/L (136-145)
--- NOTE | 2020-07-28 09:59 | PRG ---
DATE OF SERVICE: 07/28/2020 SUBJECTIVE: Bin Mart is an 79-year-old gentleman, undergoing dialysis with a pulse of 87, respiratory rate 26, saturations 98% on high-flow, appears to be severely deconditioned, not much activity going on. OBJECTIVE: CHEST: No wheezing. No crackles. CARDIAC: Normal S1 and S2. No gallops. ABDOMEN: No masses. LABORATORY DATA: White count 15,000. ASSESSMENT: Renal failure, diastolic dysfunction, chronic obstructive pulmonary disease, prolonged hospitalization. PLAN: I am told he is going to go for an access for his permanent dialysis. Pulmonary bolton, continue PT, supportive care, neb treatments. Job ID: [id number]
[2020-07-28] MEDS ORDERED: Activase 2 MG VIAL CATH SCH (11:45)
[2020-07-28] MEDS ORDERED: Sterile Water 10 ML VIAL IVP SCH (11:45)
--- NOTE | 2020-07-28 11:47 | PRG ---
DATE OF SERVICE: 07/28/2020 SUBJECTIVE: Mr. Mart had an excellent day yesterday. He was able to go through dialysis session without any difficulties. It was reported that he was able to undergo dialysis where 4 L of fluid was removed. He said he felt good afterwards. He felt looser, and he can feel like the water was coming off him. However, he still complained of scrotal swelling and pain. REVIEW OF SYSTEMS: GENERAL: There is no fever, chills, or productive cough. HEENT: There is no change in vision, hearing, or swallowing. PULMONARY: He is breathing easier. CARDIAC: There is no chest pain, palpitations, or syncope. GASTROINTESTINAL: There is no nausea, vomiting, or diarrhea. GENITOURINARY: He has a De catheter in. MUSCULOSKELETAL: He has some back pains but really not complaining today. INTEGUMENT: There is no skin breakdown. NEUROLOGIC: There are no new focal deficits or weaknesses. CURRENT MEDICATIONS: Include: 1. Albuterol and ipratropium nebs q.4 hours. 2. Amiodarone 200 mg daily. 3. Atorvastatin 20 mg q.h.s. 4. Fludrocortisone 0.1 mg daily. 5. Fluticasone. 6. Gabapentin 100 mg b.i.d. 7. Regular insulin and mild sliding scale. 8. Magnesium oxide 400 mg b.i.d. 9. Milrinone currently at 0.125 mcg/kg per minute. 10. Dulera 200/5 mcg 2 puffs twice a day. 11. Nystatin powder. 12. Protonix 40 mg b.i.d. 13. Prednisone 20 mg daily. 14. Senokot-S 2 tablets b.i.d. 15. Sucralfate 1 g p.o. a.c. 16. Flomax 0.4 mg daily. 17. Zolpidem, which is Ambien, 5 mg p.o. q.h.s. p.r.n. His telemetry was reviewed. It is mainly sinus rhythm. There are occasional PACs and PVC. However, he has a 4-beat run of wide-complex tachycardia this morning. Other than that, there were no other concerning arrhythmias. PHYSICAL EXAMINATION: VITAL SIGNS: Currently, heart rate 81, blood pressure 120/61. GENERAL: He is alert and conversational, relaxing in bed. He is very talkative this morning. HEENT: Shows EOMI. Oropharynx with moist mucosa. NECK: His JVP remains elevated at about 13 cm. LUNGS: There is good air movement; however, there is diffuse wheeze. Seems a little bit worse than yesterday. CARDIAC: Regular rate and rhythm with occasional irregularity. There is 2/6 holosystolic murmur at the left sternal border and also at the apex. ABDOMEN: Soft, nontender. Positive bowel sounds. Mildly distended. EXTREMITIES: Lower extremity, he has 1.5 cm pitting edema from feet up to his knees. He also has pitting edema in his thighs. He has scrotal and penile swelling. However, all of these have decreased since yesterday. LABORATORY VALUES: This morning include white cell count of 15.5, hemoglobin 10.6, platelets at 164. His chemistry from this morning, sodium 131, potassium 4.7, BUN 92, creatinine of 4.09, and magnesium 2.9 with calcium 8. ASSESSMENT: 79-year-old gentleman is making progress from his anasarca status and renal failure via dialysis. Dialysis is successfully removing volume every day, and he is tolerating this well. With episodic recurrence of nonsustained ventricular tachycardia, I will titrate off Milrinone today. There would be less ventricular irritation. He still has [place] Heart Association stage C, [place] Heart Association grade IIIB heart failure with preserved ejection fraction. It is predominantly a right ventricular heart failure, cor pulmonale. At this point, we are aiming to titrate off milrinone and use sildenafil to relieve his mixed cause pulmonary hypertension on days not dialyzing, and hold sildenafil before dialysis. The long-term plan will be to have the patient be discharged home to have outpatient dialysis. The patient was originally admitted for left hip joint septic joint. He underwent a fourth operation, and that was a new left hip replacement and he completed 1 month of antibiotics, currently not a problem. However, he has severe steroid- dependent chronic obstructive pulmonary disease, severe mixed pulmonary hypertension, and history of arteriovenous malformations caused gastrointestinal bleed. Currently, with Protonix 40 mg bid and sucrafalte, he does not have any more bleeding. Thus, we are close to reaching the point where once he is euvolemic from the dialysis, he can probably go home on outpatient dialysis. RECOMMENDATIONS: 1. Titrate off Milrinone today. 2. We will follow the patient's pressures. We will consider increasing sildenafil back to 10 mg 3 times a day based on his blood pressure values. 3. Agree with fludrocortisone 0.1 mg to support him. He is likely to be adrenally suppressed since he is on steroids so long. At this point, we are getting close to the point where there is not much more that we can change that could affect the long-term outcome from a cardiac perspective. It has been a pleasure taking care of Mr. Mart. If you have any questions, please give me a call. The ICU time is 30 minutes. This includes personally performed history and physical, reviewing data, interacting with other services, and direct patient interaction. Job ID: [id number] MTDD
[2020-07-28] MEDS: Amiodarone 200 MG TAB PO SCH (13:22)
[2020-07-28] MEDS: Sucralfate 1 GM TAB PO SCH ×3 (13:22→17:31)
[2020-07-28] MEDS: predniSONE 20 MG TAB PO SCH (13:22)
[2020-07-28] MEDS: Fludrocortisone Acetate 0.1 MG TAB PO SCH (13:23)
[2020-07-28] MEDS: Cholecalciferol 1,000 UNITS (25 MCG) TAB PO SCH (13:23)
[2020-07-28] MEDS: Gabapentin 100 MG CAP PO SCH ×2 (13:24→20:30)
[2020-07-28] MEDS: guaiFENesin ER 600 MG TAB PO SCH ×2 (13:24→20:30)
[2020-07-28] MEDS: Fluticasone Propionate Nasal Spray 16 gm Bottle NASAL SCH (13:24)
[2020-07-28] MEDS: Magnesium Oxide 400 MG TAB PO SCH ×2 (13:24→20:30)
[2020-07-28] MEDS: Pregabalin 25 MG CAP PO SCH (13:25)
[2020-07-28] MEDS: Multivitamin W/ Minerals 1 TAB PO SCH (13:25)
[2020-07-28] MEDS: Nystatin Powder 15 GM BOT TOP SCH ×2 (13:25→20:31)
[2020-07-28] MEDS: Tamsulosin HCl 0.4 MG CAP PO SCH (13:26)
[2020-07-28] MEDS: Senokot S 8.6-50 MG TAB PO SCH ×2 (13:27→20:31)
--- NOTE | 2020-07-28 18:12 | PRG ---
DATE OF SERVICE: 07/28/2020 SUBJECTIVE: This is an 79-year-old male, being seen for end-stage renal disease. The patient denied nausea, vomiting, or chest pain. OBJECTIVE: General: The patient is awake and alert. Vital Signs: Afebrile, pulse 75, breathing at 16, blood pressure 127/68. HEENT: Head normocephalic and atraumatic. Eyes intact, no ulcers. Nose intact, no ulcers. Ears intact, no ulcers. Neck: Supple. No JVD. Chest: Symmetrical and clear. Cardiovascular: Shows S1 and S2, no rub, no murmur. Gastrointestinal: Abdomen is soft, bowel sounds positive. Extremities: Show no edema or ulcers. Skin: Shows no rash or petechiae. Musculoskeletal: Shows no joint swelling or stiffness. Genitourinary: Shows no De or CVA tenderness. Neurologic: Motor intact. Cranial nerves intact. LABORATORY DATA: Reviewed. ASSESSMENT AND PLAN: 1. Stage 6 chronic kidney disease. Plan dialysis. 2. Hypertension, stable. 3. Anemia, stable. 4. Medication based on GFR appropriate. 5. The patient will have tunneled catheter tomorrow. Job ID: [id number]
[2020-07-28] MEDS: Atorvastatin Calcium 20 MG TAB PO SCH (20:30)
[2020-07-28] MEDS ORDERED: Vancomycin 1 GM in Premix Bag 1 BAG IVPB SCH (21:45)
[2020-07-28] MEDS ORDERED: CEFAZOLIN 2 GM in Premix Bag 1 BAG IVPB SCH (21:45)
--- NOTE | 2020-07-29 01:13 | CON ---
DATE OF CONSULTATION: 07/28/2020 REASON FOR CONSULT: Dialysis access. HISTORY OF PRESENT ILLNESS: Mr. Mart is an 79-year-old man with multiple medical problems including heart failure and renal failure. I placed a femoral dialysis catheter for him on Saturday for institution of dialysis and he has had about 12 L of fluid removed successfully this week. He is tolerating hemodialysis and his manager environmental has requested a permanent dialysis catheter and fistula for ongoing outpatient dialysis. Unfortunately, the patient has a PICC line in the left basilic position due to a chronic hip infection and need for long-term IV antibiotics. He is right handed. When I saw him on Saturday, he had severe edema of both upper extremities, but this has significantly improved. Unfortunately, his femoral dialysis catheter quit working today, one port will not aspirate and the other one is very sluggish and he was unable to undergo dialysis today, but he states that he is breathing okay and not having any chest pain or shortness of breath. 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 MEDICATIONS: Amiodarone, Lipitor, vitamin D3, dobutamine, Florinef, Flonase, gabapentin, mild sliding scale insulin, Theragran, magnesium oxide, Dulera inhaler, nystatin powder, Protonix, prednisone 20 mg daily with meals, Lyrica, Senokot, Revatio, sucralfate, Flomax, and multiple p.r.n.'s. ALLERGIES: HE HAS NO DRUG ALLERGIES, BUT DOES REPORT AN ALLERGY TO ADHESIVE. PAST SURGICAL HISTORY: Watchman procedure, cardiac ablation, multiple hip surgeries. SOCIAL HISTORY: Former smoker and drinker, but no alcohol or tobacco use in many years. REVIEW OF SYSTEMS: Ten system review of systems is negative except per HPI. The patient has a CPAP machine in place when I saw him this morning and is breathing easily. PHYSICAL EXAMINATION: VITAL SIGNS: The patient has been afebrile during this hospital stay, heart rate 89, respirations 20, 97% saturated on 40% high-flow oxygen. GENERAL: Reveals a pleasant, obese, chronically ill-appearing, elderly gentleman in no acute distress. HEENT: Unremarkable. NECK: Supple without lymphadenopathy or thyroid nodules. Pupils are equal and extraocular movements are intact. He is a little hard of hearing. HEART: Regular in its rate and rhythm. I do not appreciate any murmurs, rubs, or gallops. LUNGS: Clear to auscultation bilaterally, although due to high-flow oxygen, breath sounds and heart sounds are somewhat difficult to hear. ABDOMEN: Soft, nontender, nondistended without palpable masses or hernias. EXTREMITIES: Warm and well perfused. He still has dependent edema in the upper arm, but this is much improved from earlier. SKIN: He has very thin skin and a lot of bruising and there is some bruising over the distribution of his left cephalic vein on the left, consistent with prior lab draws or IVs in that area but the vein is palpable and compressible. NEUROLOGIC: No focal tenderness, but diffuse weakness. LABORATORY DATA: White count is little elevated today at 15.5, hematocrit 33, platelets 164. BUN and creatinine are 92 and 4.09 with bicarb of 23 and potassium 4.7. He is COVID and hepatitis negative. ASSESSMENT: End-stage renal failure complicating heart failure with fluid overload. He does appear to be tolerating hemodialysis and needs a tunneled hemodialysis catheter for ongoing dialysis. He has poor veins and poor skin integrity bilaterally as well as a fair amount of persistent edema in his arms, but he has a potentially usable left forearm cephalic vein. Unfortunately, he has a left upper basilic vein PICC line which has been in place for many weeks for his chronic left hip infection and so I doubt that vein is usable. He does have a good sized basilic vein on the right arm, but this is his dominant arm, so preferentially, a fistula will be placed on the left. I have discussed his access options with him and his family and the decision has been made to proceed with a tunneled hemodialysis catheter tomorrow with an attempt at a left forearm cephalic AV fistula. If this is not successful, then we will need to attempt a fistula on the right arm at a later date, but I would defer this until the edema has gone down on that side some more. At this point, I doubt that the left upper arm basilic vein is salvageable even if we remove the PICC line. I have opted to leave that in place. Inherent risks of dialysis catheter and fistula creation were discussed. These include, but are not limited to, bleeding, infection, risks of anesthesia, failure of the fistula to develop, need for other procedures to obtain fistula including transposition if the upper arm basilic vein is used, arterial steal which can cause ischemic damage to the hand and for the dialysis catheter, hemothorax, pneumothorax, and blood clots. All their questions were answered. He is on scheduled antibiotics including vancomycin for his MRSA hip infection and these will be continued. I will need to verify with his nurse when this was last dosed and whether it will need to be re-dosed prior to his procedure as it is not clear from review of the MAR when this was last given. Job ID: [id number] MTDD
[2020-07-29 04:33] LABS: Anion Gap 15 mmol/L (10-20); BUN (Urea Nitrogen) 103 mg/dL (8.4-25.7); Calc. Creatinine Clearance 17 mL/min (70-130); Calcium 7.7 mg/dL (7.8-10.44); Carbon Dioxide 22 mmol/L (23-31); Chloride 99 mmol/L (98-107); Estimated GFR-MDRD 12; Glucose 175 mg/dL (83-110); Magnesium 2.9 mg/dL (1.6-2.6); Potassium 4.7 mmol/L (3.5-5.1); Sodium 131 mmol/L (136-145)
[2020-07-29 05:21] LABS: Band 3 % (5-11); Hemoglobin 9.8 g/dL (14.0-18.0); Lymphocytes 1 % (21-51); MDiff Complete? YES; Mean Corpuscular HGB CONC 33.5 g/dL (32.0-36.0); Mean Corpuscular Hemoglobin 31.1 pg (27.0-31.0); Mean Corpuscular Volume 92.6 fL (78.0-98.0); Monocytes 4 % (0-10); Neutrophil 92 % (42-75); Platelet Count 160 thou/uL (130-400); RBC Distribution Width 17.2 % (11.5-14.5); Red Blood Cell (RBC) Count 3.17 mill/uL (4.70-6.10); White Blood Cell (WBC) Count 15.1 thou/uL (4.8-10.8)
[2020-07-29] MEDS: Sildenafil Citrate 20 MG TAB PO SCH ×3 (06:09→21:22)
[2020-07-29] MEDS: Mometasone 200 MCG/Formoterol 5 MCG 120 PUFF INHALER INH SCH ×2 (08:35→19:25)
[2020-07-29] MEDS ORDERED: Heparin 10,000 UNITS/ 10 ML VIAL ONE ×2 (09:06→09:27)
[2020-07-29] MEDS ORDERED: Bupivacaine/Epinephrine 0.25% 30 ML VIAL ONE (09:26)
[2020-07-29] MEDS ORDERED: Heparin 25,000 units/D5W 0 ML ONE (09:27)
[2020-07-29] MEDS ORDERED: Lidocaine 2% PF 5 ML VIAL ONE ×3 (09:28→09:29)
[2020-07-29] MEDS ORDERED: Protamine Sulfate 50 MG/5 ML VIAL ONE ×2 (09:30→09:33)
[2020-07-29] MEDS ORDERED: Sodium Chloride 0.9% 10 ML ONE ×2 (09:30→09:31)
[2020-07-29] MEDS ORDERED: Heparin 5,000 UNITS/ML VIAL ONE (09:33)
[2020-07-29] MEDS ORDERED: Ketamine 50 MG/ML (10ML VIAL) ONE (09:55)
[2020-07-29] MEDS ORDERED: cefTRIAXone\\ROCEPHIN 1 GM in Sodium Chloride 0.9% 100 ML IVPB SCH (10:00)
[2020-07-29] MEDS ORDERED: Midazolam HCl 2 mg/2 ml Vial ONE (10:09)
[2020-07-29] MEDS ORDERED: Hydrocortisone Sod Succ/PF 100 mg/2 ml Vial ONE (10:17)
--- NOTE | 2020-07-29 10:21 | PRG ---
DATE OF SERVICE: SUBJECTIVE: This morning, he is awake, alert, responsive. He is to undergo a tunneled catheter procedure and a dialysis. OBJECTIVE: VITAL SIGNS: Temperature 98, pulse 81, sats are high flow 98%. CHEST: Decreased breath sounds. No wheezing. CARDIAC: Normal S1. ABDOMEN: No masses. ASSESSMENT: Chronic obstructive pulmonary disease, respiratory failure, sepsis, renal failure, congestive heart failure. PLAN: Continue supportive care. Aggressive PT. We will follow. Job ID: [id number]
[2020-07-29] MEDS ORDERED: PHENYLEPHRINE-NS 100 MCG/ML 10 ML SYRINGE ONE (10:42)
[2020-07-29] MEDS ORDERED: Lidocaine 1% PF 5 ML VIAL ONE (10:42)
[2020-07-29] MEDS ORDERED: EPHEDRINE 25 MG/5 ML SYRINGE ONE (10:42)
[2020-07-29] MEDS ORDERED: Calcium Chloride 1 GM/10 ML Abboject SYRINGE ONE (10:42)
[2020-07-29] MEDS ORDERED: PROPOFOL 200 MG/20 ML VIAL ONE (10:42)
--- NOTE | 2020-07-29 10:52 | PRG ---
DATE OF SERVICE: 07/29/2020 SERVICE: [facility]. SUBJECTIVE: Mr. Mart had a good day. He really did have no complaints. He, however, did not get out of bed. During the day, his left groin dialysis catheter thrombosed. They were not able to open it. So, he said he did not get his dialysis session yesterday, however, they did not seem to affect him too much except that his scrotal swelling has increased. Milrinone was able to be titrated off. He did not have any increase in shortness of breath because of that. REVIEW OF SYSTEMS: GENERAL: There is no fever, chills, or productive cough. HEENT: There is no change in vision, hearing, or swallowing. 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 PULMONARY: His breathing is at baseline. He is always a bit short of breath. CARDIAC: There is no complaint of palpitation, chest pain, or syncope. GASTROINTESTINAL: There is no mention of nausea, vomiting, or diarrhea. GENITOURINARY: He has a De catheter in there. MUSCULOSKELETAL: He is not complaining of muscle or joint pains. INTEGUMENT: There are no complaints of new skin breakdown. NEUROLOGIC: There are no new focal deficits or weaknesses. MEDICATIONS: Medications that have a cardiac effect include: 1. Albuterol/ipratropium nebs every 4 hours. 2. Amiodarone 200 mg daily. 3. Atorvastatin 20 mg at bedtime. 4. Fludrocortisone 0.1 mg daily. 5. Gabapentin 100 mg b.i.d. 6. Magnesium oxide 400 mg b.i.d. 7. Dulera 200/5 mcg 2 puffs twice a day. 8. Protonix 40 mg b.i.d. 9. Prednisone 20 mg daily. 10. Lyrica currently at 25 mg daily. 11. Sildenafil 5 mg p.o. q.8 hours, but hold before dialysis session. 12. Sucralfate 1 g daily. 13. Flomax 0.4 mg daily. His telemetry is reviewed. He is predominantly in sinus rhythm. However, he has some PACs. He also has a different morphology of P-wave at different times. Thus, he is likely to have a second atrial source. PHYSICAL EXAMINATION: VITAL SIGNS: Current vitals are heart rate 81, blood pressure 131/70. GENERAL: He is alert and conversational, reclining comfortably in bed. He is much more energetic and talkative this morning. HEENT: Show EOMI. Oropharynx is benign with moist mucosa. NECK: His JVP continued to be elevated, about 13 cm. PULMONARY: His breath sounds are distant, however, there is good air movement. His wheezes are less today. He has slight bibasilar crackles. ABDOMEN: Soft, nontender. Positive bowel sounds. EXTREMITIES: He has pitting edema in his thighs. He has 1.5 cm pitting edema from feet up to his knees. However, this is still much better than what it was 2 weeks ago. LABORATORY VALUES: White cell count 15.1, hemoglobin 9.8, platelets 160. His chemistry shows sodium 131, potassium 4.7, chloride 99, bicarb 22, BUN 103, creatinine 4.64. ASSESSMENT: 79-year-old gentleman resides in [place] Heart [employer] stage C, [place] Heart Association class 3B heart failure with preserved ejection fraction. He has predominantly right heart failure, cor pulmonale. Due to a mixed although longstanding severe pulmonary disease and potentially diastolic dysfunction, his last estimated PA systolic pressure is 85. He is currently on sildenafil for this. Now he is dependent on hemodialysis to remove volume. He also has an end-stage renal disease during this hospitalization, so dialysis is the only way to manage his fluid status, currently it is working very well. His main admission problem was recurrent acute left hip septic joint. It has been replaced. He has completed antibiotics for this. 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 Currently, he is on Protonix and sucralfate for this. His overall prognosis is grim. However, a possible workable goal is for him to get his dialysis permanent access so that he can leave the hospital and have an outpatient dialysis. In terms of right heart failure [place], he could be managed on arrhythmia control and sildenafil to lower his pulmonary hypertension and the sildenafil will need to be held on the morning of dialysis. Please see the following for my recommendations. RECOMMENDATIONS: 1. Continue sildenafil 5 mg q.8 hours. However, this will likely need to be titrated up once he is settled down in terms of surgery and the sildenafil will be held the morning of dialysis. 2. He will need to continue his amiodarone because he did have ventricular tachycardia and he also has history of atrial fibrillation. 3. His electrolytes also need to be corrected to prevent arrhythmia. 4. He has elevated white cell count and the urine culture is positive, so we will start empiric antibiotics for the urinary tract infection for now. We will adjust these depending on sensitivity of the bacteria. It has been a pleasure taking care of Mr. Mart. If there are any questions, please give me a call. The ICU time on the patient is 30 minutes. This includes personally performing history and physical, reviewing the data, coordinating care, meeting with the family members, and direct patient interaction. Job ID: [id number] MTDD
[2020-07-29] MEDS: Sucralfate 1 GM TAB PO SCH ×3 (11:01→18:32)
[2020-07-29] MEDS: Senokot S 8.6-50 MG TAB PO SCH ×2 (11:03→21:23)
--- NOTE | 2020-07-29 11:53 | PRG ---
DATE OF SERVICE: 07/29/2020 SUBJECTIVE: This is an 79-year-old gentleman being seen for end-stage renal disease. The patient denied nausea, vomiting, or chest pain. OBJECTIVE: GENERAL: The patient is awake and alert. Vital Signs: Afebrile, pulse 75, breathing at 16, blood pressure 122/64. HEENT: Head normocephalic and atraumatic. Eyes intact, no ulcers. Nose intact, no ulcers. Ears intact, no ulcers. Neck: Supple. No JVD. Chest: Symmetrical and clear. Cardiovascular: Shows S1 and S2, no rub, no murmur. Gastrointestinal: Abdomen is soft, bowel sounds positive. Extremities: Show no edema or ulcers. Skin: Shows no rash or petechiae. Musculoskeletal: Shows no joint swelling or stiffness. Genitourinary: Shows no De or CVA tenderness. Neurologic: Motor intact. Cranial nerves intact. LABORATORY DATA: Labs show hemoglobin 9.8. Creatinine 4.64. ASSESSMENT: 1. Stage 6 chronic kidney disease, plan dialysis. 2. Hypertension, stable. 3. Anemia, stable. 4. Congestive heart failure Plan dialysis 5 to 6 times per week. Discharge planning has been advised to the family. Job ID: [id number]
[2020-07-29] MEDS ORDERED: Vancomycin 1 GM/200 ML BAG ONE (13:19)
--- NOTE | 2020-07-29 14:28 | RAD ---
Chest one view HISTORY: Dialysis catheter placement. COMPARISON: 07/21/2020. FINDINGS: Cardiac silhouette is magnified and enlarged. Pulmonary vasculature more engorged than on t he prior study with widespread reticulonodular interstitial prominence also increased. Left hemidiaphragm partially obscured. Patient is slightly rotated rightward. Tip of a dual lumen large caliber right internal jugular dialy sis type catheter projects over the upper superior vena cava. Tip of a left upper extremity PICC overlies the SVC. There is calcification throughout the aorta. Met allic coils project over the left hilum. No evidence of pneumothorax. IMPRESSION : Right IJ dialysis catheter and left upper extremity PICC are in good radiographic position. Interval increase in pulmonary vascular congestion/edema. Left basilar infiltrate may be related to s uch or to other cause of infiltrate/atelectasis. Clinical correlation regarding other signs and symptoms of left basilar pneumonitis is required. Atherosclerosis.
[2020-07-29] MEDS ORDERED: Sulfameth/Trimethoprim SS 400-80MG TAB PO SCH (14:30)
[2020-07-29] MEDS: Fluticasone Propionate Nasal Spray 16 gm Bottle NASAL SCH (14:54)
[2020-07-29] MEDS: Magnesium Oxide 400 MG TAB PO SCH ×2 (14:54→21:23)
[2020-07-29] MEDS: predniSONE 20 MG TAB PO SCH (14:54)
[2020-07-29] MEDS: guaiFENesin ER 600 MG TAB PO SCH ×2 (14:54→21:23)
[2020-07-29] MEDS: Gabapentin 100 MG CAP PO SCH ×2 (14:54→21:23)
[2020-07-29] MEDS: Nystatin Powder 15 GM BOT TOP SCH ×2 (14:55→21:24)
--- NOTE | 2020-07-29 15:54 | PDOC.OP ---
Operative Note - Operative Note Operative Note: DATE OF PROCEDURE: PROCEDURE: Right internal jugular tunneled hemodialysis catheter placement with ultrasound and fluoroscopic guidance, left arm Latha AV fistula. SURGEON: Sarah Davidson M.D. PREOPERATIVE DIAGNOSIS: End-stage renal failure. POSTOPERATIVE DIAGNOSIS: End-stage renal failure. HISTORY: Patient with end-stage renal failure who requires permanent access for ongoing hemodialysis. A tunneled dialysis catheter and AV fistula has been requested by his prepress supervisor. After reviewing vein mapping the decision was made to proceed with a primary fistula on the left. PROCEDURE: After informed consent was obtained and appropriate preoperative antibiotics were administered, the patient was taken to the Operating Room, placed in the supine position and monitored anesthesia care was administered. The neck and chest were prepped and draped in a standard sterile fashion and the patient placed in Trendelenburg position. A sterile ultrasound probe was used to identify the patent compressible right IJ vein which was accessed under direct ultrasound guidance. A wire was threaded through the needle and confirmed by ultrasound to be within the patent compressible vessel with the tip in the vena cava by fluoroscopy. Local anesthesia was infused to the skin and subcutaneous tissues of the right neck and chest. An infraclavicular incision was made and a catheter tunneled from the infraclavicular to the right IJ access site. The right IJ was sequentially dilated over the wire following which a dilator and sheath were placed over the wire and the dilator and wire removed leaving the sheath in place. The catheter was tunneled through the sheath which was then split and removed leaving the catheter in place. This was confirmed by fluoroscopy to be in good position in the superior vena cava with no kinking of the course of the catheter. Both ports easily aspirated dark venous nonpulsatile blood and easily flushed without resistance. Heparin was instilled to the quantity specified on the hub, and the hub was secured to the skin with 3-0 nylon sutures. The skin incision at the neck was closed in two layers with 4-0 Monocryl suture and Dermabond dressings were placed. The skin at the exit site was snugged up around the catheter with 4-0 Monocryl suture and Dermabond was placed there as well. Once the Dermabond was dry, a Biopatch and Tegaderm dressing was placed at the exit site. Attention was then turned to creation of the left AV fistula. The patient's left arm was prepped and draped in standard sterile fashion. The palpable cephalic vein and radial artery were marked on the skin. An incision was made between these 2 structures and dissection carried down to the cephalic vein. This was felt to be of adequate caliber and quality to support an AV fis herminia. The vein was interrogated with cardiac dilators and easily accepted up to a 3.5 mm dilator. The vein was flushed with heparinized saline and clamped. The radial artery was identified and dissected free and was felt to be of adequate caliber and quality to support a fistula. This was dissected free. Heparin was administered systemically and allowed to circulate for 3 minutes. After the he mila had circulated for 3 minutes, the radial artery was clamped proximally and distally. An anterior arteriotomy was created with an 11 blade and extended with Jacques scissors. The vein was spatulated and an end-to-side anastomosis was created with excellent technical result. Prior to tying down the anastomosis, the arterial inflow was released flushing the anastomosis. The anastomosis was then secured and hemostasis was verified. Flow was established first through the fistula following which flow was restored through the artery. The patient had a palpable thrill in the cephalic vein as well as a good Doppler signal to the level of the antecubital fossa. The wound was irrigated and examined for hemostasis was again confirmed to be excellent. The subcutaneous tissues were reapproximated with a running 3-0 Monocryl sutures and the skin was closed with running 4-0 subcuticular Monocryl suture. Dermabond dressings were placed. Prior to leaving the operating room the fistula was again examined by Doppler and a good bruit confirmed. The patient was then taken to recovery in good condition. Estimated blood loss was minimal. There were no complications. There were no specimens.
[2020-07-29] MEDS: Multivitamin W/ Minerals 1 TAB PO SCH (18:32)
[2020-07-29] MEDS: Tamsulosin HCl 0.4 MG CAP PO SCH (18:32)
[2020-07-29] MEDS: Cholecalciferol 1,000 UNITS (25 MCG) TAB PO SCH (18:32)
[2020-07-29] MEDS: Fludrocortisone Acetate 0.1 MG TAB PO SCH (18:32)
[2020-07-29] MEDS: Pregabalin 25 MG CAP PO SCH (18:32)
[2020-07-29] MEDS: Amiodarone 200 MG TAB PO SCH (18:33)
--- NOTE | 2020-07-29 18:41 | RAD ---
CHEST ONE VIEW: 07/29/20 HISTORY: Dyspnea. COMPARISON: Earlier exam on the same date. FINDINGS: Cardiac silhouette is magnified by projection. Pulmonary vasculature is within normal limits. Widespr ead radicular nodular interstitial pattern is less pronounced than on the prior exam. Mild linear atelectasis at the left lung base. No lobar consolidation or evidence of pneumothorax. Me diastinum is midline. Lines and tubes are unchanged in position. Opaque sutures at the left hilum and calcification of the aorta again demonstrated. IMPRESSION: Slight interval improvement. No new abnormalities are demonstrated. POS: BST
[2020-07-29] MEDS: Atorvastatin Calcium 20 MG TAB PO SCH (21:23)
[2020-07-29] MEDS: Insulin Regular 300 UNITS/3 ML VIAL SC PRN (23:52)
[2020-07-30 03:31] LABS: #Lymphocytes 0.4 thou/uL (1.20-3.40); #Monocytes 0.4 thou/uL (0.11-0.59); #Neutrophils 11.8 thou/uL (1.40-6.50); %Eosinophils 0.1 % (0.0-10.0); %Lymphocytes 3.4 % (21.0-51.0); %Neutrophils 93.5 % (42.0-75.0); Hemoglobin 9.7 g/dL (14.0-18.0); Mean Corpuscular HGB CONC 32.7 g/dL (32.0-36.0); Mean Corpuscular Hemoglobin 30.5 pg (27.0-31.0); Mean Corpuscular Volume 93.1 fL (78.0-98.0); Mean Platelet Volume 9.7 fL (7.4-10.4); Platelet Count 162 thou/uL (130-400); RBC Distribution Width 17.4 % (11.5-14.5); Red Blood Cell (RBC) Count 3.18 mill/uL (4.70-6.10); White Blood Cell (WBC) Count 12.6 thou/uL (4.8-10.8)
[2020-07-30 03:46] LABS: Anion Gap 15 mmol/L (10-20); BUN (Urea Nitrogen) 64 mg/dL (8.4-25.7); Calc. Creatinine Clearance 25 mL/min (70-130); Calcium 7.7 mg/dL (7.8-10.44); Carbon Dioxide 24 mmol/L (23-31); Chloride 99 mmol/L (98-107); Estimated GFR-MDRD 18; Glucose 269 mg/dL (83-110); Magnesium 2.7 mg/dL (1.6-2.6); Potassium 5.3 mmol/L (3.5-5.1); Sodium 133 mmol/L (136-145)
--- NOTE | 2020-07-30 05:25 | PRG ---
DATE OF SERVICE: 07/29/2020 SUBJECTIVE: Mr. Mart is still in the IMCU or back in the IMCU and looks like he keeps coming back and forth due to complications related to his cardiomyopathy mostly. He is being seen by Dr. Fowler right now and he is not really having many complaints at this time. His left groin dialysis catheter thrombosed, so he did not have dialysis yesterday. Milrinone has been discontinued. He denies any diarrhea. No chest pain. He has been afebrile. Blood pressure is 128/64, heart rate 81, and O2 saturation 98% with high-flow nasal cannula O2 and the lung examination, with the patient oriented in no distress. Jugular vein distention noted. Faint inspiratory crackles at the bases. S1 and S2, regular rate. Abdomen is not distended. 1+ edema in the lower extremities. LABORATORY DATA: White cell count 15.1, hemoglobin 9.8, platelets are 160 with 92% neutrophils. Creatinine 4.64 and sodium 131. Urine culture with a gram-negative tahir identified. IMAGING STUDIES: Last imaging studies; we have a chest x-ray from July 21, but no recent x-ray. A fairly stable parenchymal lung change with some interstitial changes, but less prominent than before. ASSESSMENT AND DISCUSSION: Chronic renal insufficiency, on dialysis now. Chronic obstructive pulmonary disease, home O2. Cardiomyopathy. Left hemiarthroplasty with multiple infections. 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 The end date of therapy of the daptomycin and Zosyn was at the end of June and at this point, we will go ahead and start him on suppressive Bactrim since there is no other option. The dose will have to be adjusted for his renal function. He does not look like he is going to have recovery of his renal function, so I think three times a week Bactrim suppressive therapy will be the recommended course of suppressive therapy. There are no options for the Morganella and hopefully that it is not going to be an issue going forward since gram-negative rods are less likely to establish chronic colonization of biofilm. Job ID: [id number]
[2020-07-30] MEDS: Sildenafil Citrate 20 MG TAB PO SCH ×3 (06:49→20:26)
[2020-07-30] MEDS: Insulin Regular 300 UNITS/3 ML VIAL SC PRN ×2 (06:51→12:38)
[2020-07-30] MEDS: Mometasone 200 MCG/Formoterol 5 MCG 120 PUFF INHALER INH SCH ×2 (08:13→18:51)
[2020-07-30] MEDS ORDERED: Heparin 10,000 UNITS/ 10 ML VIAL ONE (09:03)
[2020-07-30] MEDS: Pregabalin 25 MG CAP PO SCH (09:04)
[2020-07-30] MEDS: predniSONE 20 MG TAB PO SCH (09:04)
[2020-07-30] MEDS: Gabapentin 100 MG CAP PO SCH ×2 (09:05→20:26)
[2020-07-30] MEDS: guaiFENesin ER 600 MG TAB PO SCH ×2 (09:05→20:26)
[2020-07-30] MEDS: Sucralfate 1 GM TAB PO SCH ×3 (09:05→18:14)
[2020-07-30] MEDS: Multivitamin W/ Minerals 1 TAB PO SCH (09:05)
[2020-07-30] MEDS: Amiodarone 200 MG TAB PO SCH (09:05)
[2020-07-30] MEDS: Tamsulosin HCl 0.4 MG CAP PO SCH (09:05)
[2020-07-30] MEDS: Magnesium Oxide 400 MG TAB PO SCH ×2 (09:05→20:27)
[2020-07-30] MEDS: Cholecalciferol 1,000 UNITS (25 MCG) TAB PO SCH (09:06)
[2020-07-30] MEDS: Fludrocortisone Acetate 0.1 MG TAB PO SCH (09:06)
[2020-07-30] MEDS: Fluticasone Propionate Nasal Spray 16 gm Bottle NASAL SCH (09:06)
[2020-07-30] MEDS: Nystatin Powder 15 GM BOT TOP SCH ×2 (09:07→20:27)
[2020-07-30] MEDS: Senokot S 8.6-50 MG TAB PO SCH ×2 (09:09→20:26)
--- NOTE | 2020-07-30 11:15 | PRG ---
DATE OF SERVICE: 07/30/2020 SUBJECTIVE: An 79-year-old gentleman being seen for end-stage kidney disease. The patient denies nausea, vomiting, or chest pain. PHYSICAL EXAMINATION: GENERAL: The patient is awake and alert. VITAL SIGNS: Afebrile, pulse 80, breathing 16, blood pressure 130/79. HEENT: Head normocephalic and atraumatic. Eyes intact, no ulcers. Nose intact, no ulcers. Ears intact, no ulcers. NECK: Supple. No JVD. CHEST: Symmetrical and clear. CARDIOVASCULAR: Shows S1 and S2, no rub, no murmur. GASTROINTESTINAL: Abdomen is soft, bowel sounds positive. EXTREMITIES: Show no edema or ulcers. SKIN: Shows no rash or petechiae. MUSCULOSKELETAL: Shows no joint swelling or stiffness. GENITOURINARY: Shows no De or CVA tenderness. NEUROLOGIC: Motor intact. Cranial nerves intact. LABORATORY DATA: Labs show hemoglobin 9.7, creatinine 3.2, potassium 5.3. ASSESSMENT AND PLAN: 1. Chronic kidney disease, stage 6. Plan: Dialysis. 2. Hyperkalemia. Plan: Dialysis. 3. Anemia. Plan: Dialysis. 4. Medication based on GFR appropriate. Job ID: [id number]
--- NOTE | 2020-07-30 11:25 | PRG ---
DATE OF SERVICE: 07/30/2020 SUBJECTIVE: His x-ray looks much better, less pleural effusion. He is less short of breath and high-flow. In the process of trying to convert him to nasal O2, he was being dialyzed. OBJECTIVE: VITAL SIGNS: Pulse 80, blood pressure 130/79, respiratory rate 18, as noted sats are 97%. CHEST: No wheezing, no crackles. CARDIAC: Normal S1, S2. ABDOMEN: No masses. LABS: Creatinine 3, BUN 67. White count 12. ASSESSMENT: 1. Chronic obstructive pulmonary disease. 2. Respiratory failure, renal failure, severe deconditioning, diastolic dysfunction. PLAN: PT supportive care. We will follow. Job ID: [id number]
[2020-07-30] MEDS: Piperacillin/Tazobactam 2.25 GM in Sodium Chloride 0.9% 100 ML IVPB SCH ×2 (12:37→23:17)
--- NOTE | 2020-07-30 13:04 | PRG ---
DATE OF SERVICE: 07/30/2020 SERVICE: [facility]. SUBJECTIVE: Mr. Mart had a good day. He was able to go to surgery and have the dialysis catheter placed at the right chest. A dialysis catheter is in the right internal jugular vein, it is a tunneled catheter. His left arm AV fistula was also done for dialysis. He tolerated the procedure well. Afterwards, they were able to dialyze and pulled off 4 L. He feels tired. However, he noticed that he has shrinking edema and is well pleased with that. This morning, he is able to walk 3 steps from the bed to the recliner. This is the first time he had done that for nearly a week, so now he is starting to regain his mobility. REVIEW OF SYSTEMS: GENERAL: There is no fever, chills, productive cough. HEENT: There is no change in vision, hearing, or swallowing. However, he is chronically hard hearing. PULMONARY: He is not short of breath according to him, but he is chronically short of breath mostly due to severe COPD. CARDIAC: There is no mention of palpitations, chest pain, or syncope. GASTROINTESTINAL: There is no report of nausea, vomiting, diarrhea, or bloody bowel movement. GENITOURINARY: He has a De catheter in. He is still producing a little bit of urine, but he is not dialysis dependent. MUSCULOSKELETAL: He has chronic back pain, but is not complaining of it today. INTEGUMENT: There is no new skin breakdown. NEUROLOGIC: There are no focal deficits or weaknesses. MEDICATIONS: His medications with cardiac effect include: 1. Albuterol/ipratropium nebs every 4 hours. 2. Amiodarone 200 mg daily. 3. Lipitor 20 mg at bedtime. 4. Fludrocortisone 0.1 mg daily. 5. Gabapentin 100 mg b.i.d. 6. He is on sliding scale insulin. 7. Magnesium oxide 400 mg b.i.d. 8. Dulera 200/5 mcg combination 2 puffs b.i.d. 9. Protonix 40 mg b.i.d. 10. Prednisone 20 mg daily. 11. Lyrica 25 mg daily. 12. Sildenafil 5 mg q.8 hours. 13. Sucralfate 1 g t.i.d. before meals and also at bedtime. 14. Flomax 0.4 mg daily. 15. Bactrim on Saturday, Saturday, and Fridays. Telemetry is reviewed. He is primarily in sinus rhythm. There are occasional PACs, but this is the best rhythm seen. There is no more ventricular tachycardia for 2 days now. PHYSICAL EXAMINATION: VITAL SIGNS: Heart rate 78, blood pressure 130/65. GENERAL: He is alert and conversational, relaxed in the recliner. He is looking good today. HEENT: Show EOMI. Oropharynx is benign with moist mucosa. NECK: JVP is still elevated about 13 cm just below the earlobe. PULMONARY: There are distant breath sounds, however, he does move air. There is bilateral wheeze still and there are just slight bibasilar crackles. CARDIAC: It is difficult to hear over his breath sounds, however, appeared to be regular rate and rhythm. Normal S1, S2. There is 2/6 holosystolic murmur at the left sternal border. ABDOMEN: Mildly enlarged, soft, nontender. Positive bowel sounds. EXTREMITIES: His lower extremity still has at least 1.5 cm pitting edema from his feet towards his knees. However, overall, it is less edematous. He still has some thigh edema. GENITOURINARY: He still has significant scrotal and penile swelling; however, the regions that had edema have decreased since yesterday. LABORATORY VALUES: White cell count 12.6, hemoglobin 9.7, and platelets 162. His chemistry are sodium 133, potassium 5.3, chloride 99, bicarb 24, BUN 64, and creatinine 3.27. He is 4 L negative yesterday from dialysis. He made about 500 mL of urine in the last 24 hours. His urine culture came back positive for Pseudomonas. The susceptibility has not been done yet. ASSESSMENT: 79-year-old gentleman who is making steady progress. Dialysis is successfully removing his volume, slowly progressing toward euvolemia. He has right heart failure, cor pulmonale. With the decreasing volume, there are no more arrhythmias. He depends on amiodarone for suppression of arrhythmia and sildenafil to decrease his pulmonary pressures. He has a mixed severe pulmonary hypertension with last estimate with a PA systolic blood pressure about 85. However, since he is making good progress with hemodialysis with good blood pressure, within the near future, he could be probably discharged to rehab facility with scheduled dialysis. The patient was originally admitted for 4th episode of left septic hip joint, and he underwent replacement. He required IV antibiotics for a month. Now, he is being switched to Bactrim for long-term suppressive therapy. He will need this for long-term because a device cannot ever be fully cleared. 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 However, he also has adrenal insufficiency due to his long-term steroid use, so he will need a combination of corticosteroids and also mineralocorticoids, so fludrocortisone will always be needed along with prednisone. He has a history of multiple gastrointestinal bleeds including multiple gastrointestinal bleeds in this hospitalization. He will continue the Protonix and also sucralfate to reduce his chance of an arteriovenous malformation-induced gastrointestinal bleed. His overall prognosis is very grim. However, he is making progress. The overall goal is to be able to get him to rehab, and he wishes to go home with outpatient dialysis. RECOMMENDATIONS: 1. Increase sildenafil to 10 mg p.o. q.8 hours. They will hold the dose before dialysis and restart afterwards. 2. Please provide the Zosyn at 2.25 g IV q.12 hours. This is a dialysis dose. 3. Please help patient find a way to a rehabilitation facility. It has been a pleasure taking care of Mr. Mart. If any questions, please give me a call. The ICU time for this visit is about 35 minutes. This includes personally performing history and physical, reviewing data, short family meeting, and direct patient interaction. Job ID: [id number] MTDD
[2020-07-30] MEDS: Atorvastatin Calcium 20 MG TAB PO SCH (20:26)
[2020-07-31 03:51] LABS: #Lymphocytes 0.4 thou/uL (1.20-3.40); #Monocytes 0.6 thou/uL (0.11-0.59); #Neutrophils 13.5 thou/uL (1.40-6.50); %Eosinophils 0.3 % (0.0-10.0); %Monocytes 4.2 % (0.0-10.0); %Neutrophils 92.4 % (42.0-75.0); Hemoglobin 9.5 g/dL (14.0-18.0); Mean Corpuscular Hemoglobin 30.6 pg (27.0-31.0); Mean Corpuscular Volume 92.6 fL (78.0-98.0); Mean Platelet Volume 9.8 fL (7.4-10.4); Platelet Count 175 thou/uL (130-400); RBC Distribution Width 17.5 % (11.5-14.5); Red Blood Cell (RBC) Count 3.12 mill/uL (4.70-6.10); White Blood Cell (WBC) Count 14.6 thou/uL (4.8-10.8)
[2020-07-31 04:03] LABS: Anion Gap 14 mmol/L (10-20); BUN (Urea Nitrogen) 45 mg/dL (8.4-25.7); Calc. Creatinine Clearance 31 mL/min (70-130); Calcium 7.7 mg/dL (7.8-10.44); Carbon Dioxide 26 mmol/L (23-31); Chloride 96 mmol/L (98-107); Estimated GFR-MDRD 25; Glucose 182 mg/dL (83-110); Magnesium 2.4 mg/dL (1.6-2.6); Potassium 4.4 mmol/L (3.5-5.1); Sodium 132 mmol/L (136-145)
--- NOTE | 2020-07-31 05:37 | PDOC.FM ---
- Objective Vital Signs & Weight: Vital Signs (12 hours) Temp Pulse Resp Pulse Ox 07/31/20 04:00 98.6 F 07/31/20 01:32 79 18 97 07/31/20 01:31 97 07/31/20 00:00 98.8 F 07/30/20 23:45 98.6 F 07/30/20 21:43 85 16 97 07/30/20 20:00 97 07/30/20 19:46 98.3 F 07/30/20 18:43 89 20 92 L Weight Admit Weight 88.451 kg Weight 93.9 kg Most Recent Monitor Data Heart Rate from ECG 81 NIBP 115/56 NIBP BP-Mean 75 Respiration from ECG 16 SpO2 99 I&O: 07/29/20 07/30/20 07/31/20 06:59 06:59 06:59 Intake Total 983.2 1170 760 Output Total 370 4500 3100 Balance 613.2 -3610 -8760 Result Diagrams: 07/31/20 03:08 07/31/20 03:08
[2020-07-31] MEDS: Sildenafil Citrate 20 MG TAB PO SCH ×3 (05:53→22:24)
[2020-07-31] MEDS: Insulin Regular 300 UNITS/3 ML VIAL SC PRN ×3 (05:53→18:31)
[2020-07-31] MEDS: Mometasone 200 MCG/Formoterol 5 MCG 120 PUFF INHALER INH SCH ×2 (06:46→18:46)
[2020-07-31] MEDS: Gabapentin 100 MG CAP PO SCH ×2 (10:08→20:11)
[2020-07-31] MEDS: Pregabalin 25 MG CAP PO SCH (10:09)
[2020-07-31] MEDS: Cholecalciferol 1,000 UNITS (25 MCG) TAB PO SCH (10:09)
[2020-07-31] MEDS: Sucralfate 1 GM TAB PO SCH ×3 (10:09→20:11)
[2020-07-31] MEDS: Fludrocortisone Acetate 0.1 MG TAB PO SCH (10:09)
[2020-07-31] MEDS: guaiFENesin ER 600 MG TAB PO SCH ×2 (10:09→20:10)
[2020-07-31] MEDS: Amiodarone 200 MG TAB PO SCH (10:09)
[2020-07-31] MEDS: predniSONE 20 MG TAB PO SCH (10:09)
[2020-07-31] MEDS: Magnesium Oxide 400 MG TAB PO SCH ×2 (10:09→20:10)
[2020-07-31] MEDS: Nystatin Powder 15 GM BOT TOP SCH ×2 (10:10→20:12)
[2020-07-31] MEDS: Fluticasone Propionate Nasal Spray 16 gm Bottle NASAL SCH (10:10)
[2020-07-31] MEDS: Tamsulosin HCl 0.4 MG CAP PO SCH (10:10)
[2020-07-31] MEDS: Multivitamin W/ Minerals 1 TAB PO SCH (10:10)
[2020-07-31] MEDS: Senokot S 8.6-50 MG TAB PO SCH ×2 (10:12→20:12)
[2020-07-31] MEDS ORDERED: predniSONE 20 MG TAB PO SCH (11:30)
--- NOTE | 2020-07-31 12:19 | PRG ---
DATE OF SERVICE: 07/31/2020 SUBJECTIVE: This morning, he is much better. He is back on nasal O2. OBJECTIVE: VITAL SIGNS: Sats respiratory rate 18, blood pressure 130/80. CHEST: No wheezing. No crackles. CARDIAC: Normal S1 and S2. No gallops. ABDOMEN: No masses. LABORATORY DATA: Creatinine 2.5. He has urine culture, Pseudomonas. White count 14,000. ASSESSMENT AND PLAN: 1. Prolonged hospitalization for diastolic dysfunction. 2. Cardiac arrhythmias. 3. Underlying chronic obstructive pulmonary disease. He is still on his inotropes. Hopefully, those can be slowly tapered and discontinued for discharge planning purposes. I am going to decrease his prednisone to 10 a day. Continue aggressive PT, supportive care. Job ID: [id number]
--- NOTE | 2020-07-31 12:49 | PRG ---
DATE OF SERVICE: SUBJECTIVE: An 79-year-old gentleman being seen for end-stage kidney disease. The patient denies any nausea, vomiting, or chest pain. PHYSICAL EXAMINATION: General: The patient is awake and alert. Vital Signs: Afebrile, pulse 85, breathing at 16, blood pressure 109/48. HEENT: Head normocephalic and atraumatic. Eyes intact, no ulcers. Nose intact, no ulcers. Ears intact, no ulcers. Neck: Supple. No JVD. Chest: Symmetrical and clear. Cardiovascular: Shows S1 and S2, no rub, no murmur. Gastrointestinal: Abdomen is soft, bowel sounds positive. Extremities: Show no edema or ulcers. Skin: Shows no rash or petechiae. Musculoskeletal: Shows no joint swelling or stiffness. Genitourinary: Shows no De or CVA tenderness. Neurologic: Motor intact. Cranial nerves intact. LABORATORY DATA: Labs show hemoglobin 9.5. ASSESSMENT AND PLAN: Stage 6 chronic kidney disease, plan dialysis Saturday, Saturday, Saturday. Hypertension, stable. Anemia, stable. Medication based on GFR appropriate. Job ID: [id number]
--- NOTE | 2020-07-31 13:50 | PRG ---
DATE OF SERVICE: 07/31/2020 SUBJECTIVE: Mr. Bin Mart a good day. Yesterday, he was able to walk a few steps and get to his chair. Afterwards, he was stuck in the chair. He needed much help to get back in bed. He went to a hemodialysis session and 3 L of fluids was able to be removed. Afterwards, he said he feels very tired. This morning, he said he is breathing well. There is less short of breath than in the past. He is able to be downgraded from continuous flow down to nasal cannula 4 L, which is improvement. REVIEW OF SYSTEMS: GENERAL: There is no fever, chills, or productive cough. HEENT: There is no change in vision, hearing, or swallowing. He has a chronic hard of hearing. PULMONARY: He is less short of breath. CARDIAC: There is no palpitation, chest pain, or syncope. GI: There is no complaint of nausea, vomiting, diarrhea, or blood in the stool. : He is still on a De catheter, but it is draining dark fluid. MUSCULOSKELETAL: He has some chronic back pain. INTEGUMENT: There are no reports of new skin breakdown. NEUROLOGIC: There are no new focal deficits or weaknesses. MEDICATIONS: Medications that are scheduled: 1. Albuterol and ipratropium nebs q.4 hours. 2. Amiodarone 200 mg daily. 3. Atorvastatin 20 mg at bedtime. 4. Cholecalciferol (vitamin D3) 1000 units daily. 5. Fludrocortisone 0.1 mg daily. 6. Fluticasone. 7. Gabapentin 100 mg b.i.d. 8. Insulin sliding scale, moderate level intensity. 9. Magnesium oxide 400 mg b.i.d. 10. Dulera 200/5 mcg inhaler combination 2 puffs b.i.d. 11. Nystatin powder to affected areas twice daily. 12. Protonix 40 mg twice a day. 13. Zosyn at 2.25 g b.i.d., which is the dialysis regimen. However, this needs to be changed if needed. 14. Prednisone 10 mg daily. 15. Lyrica 25 mg daily. 16. Senakot-S 2 tablets twice per day. 17. Sucralfate 1 g by mouth with meals and also at night. 18. Flomax 0.4 mg daily. 19. 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 DIAGNOSTIC STUDIES: Telemetry was reviewed. He is mainly in sinus rhythm. He has occasional PACs and also different morphology P-wave, so he has ectopic source of atrial rhythm too. There are no concerning arrhythmias for the past 24 hours. PHYSICAL EXAMINATION: CURRENT VITAL SIGNS: Heart rate 85, blood pressure 101/59. GENERAL: He is alert and conversational, lying comfortably in reclined position in bed. He seemed to have more energy. HEENT: Shows EOMI. Oropharynx is benign with moist mucosa. NECK: JVP remains to be elevated, but less so, it is more like 12 cm. PULMONARY: He has better air movement on the left. On the right, there are decreased breath sounds and also some wheezes on the right. Overall, his pulmonary exam has improved again since yesterday. CARDIAC: Regular rate and rhythm with occasional irregularity. He has a 2/6 holosystolic murmur at the apex. ABDOMEN: Soft and nontender, but distended. EXTREMITIES: His lower extremities have 1.5 cm pitting edema from his feet to his knees and now also in his thighs. ASSESSMENT: An 79-year-old gentleman is making overall good progress. With dialysis session, his volume has been pulled down. He is slowly regaining function. However, due to him being severely illed and immobile for a long time, it will take him some time to gain function to walk again. He has multitude of problems. I will address each one. First, he has [place] [employer] stage C, [place] Heart Association class 4 heart failure with preserved ejection fraction. This is due to mainly right ventricular failure. It is cor pulmonale secondary to mixed picture of pulmonary hypertension. He has ectopic sources of atrial beats, have shown nonsustained ventricular tachycardia, and ablated for atrial fibrillation in the past. Currently, amiodarone 200 mg daily is addressing arrhythmia. Sildenafil is lowering his pulmonary pressure to allow his right ventricle to function better. He has been titrated off the inotropic drips. He also has end-stage renal disease. He is on hemodialysis for this. He is currently doing well on hemodialysis. The overall goal for the rest of the hospital stay is volume removal to shrink scrotal edema down to a manageable level where he can walk again. After that, he can go outpatient dialysis, more likely he can benefit from rehabilitation center to have physical therapy every day to regain strength to be able to walk again. 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 This caused multiple gastrointestinal bleeds. He received many, many units of transfusion in this hospitalization. Finally, the combination of Protonix and sucralfate has alleviated situation. 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 He also has adrenal insufficiency. He is receiving fludrocortisone 0.1 mg daily for this. This may be titrated up as needed. He will likely need some level of cortisol supplementation. The overall plan presently will be removing the volume off him with dialysis and transitioned to a rehabilitation center. Please see following for my recommendations. RECOMMENDATIONS: 1. Decrease sildenafil back down to 5 mg p.o. q.8 hours and hold a dose of the sildenafil right before dialysis. 2. Continue with amiodarone 200 mg daily. 3. Please pull De catheter. Allow the patient to be off De catheter and check to see if he has some return of ability to urinate. He has had multiple urinary tract infections. He does have one now, so removing the De catheter can help with this. 4. Appreciate Renal's involvement. We will continue dialysis to remove volume. It has been a pleasure taking care of . Bin Mart. If you have any questions, please give me a call. This ICU visit took about 40 minutes. This includes personally performing history and physical, including family meeting with patient, , and son, reviewing data, coordinating care, and also direct patient interaction. Job ID: [id number] MTDD
[2020-07-31] MEDS: Piperacillin/Tazobactam 2.25 GM in Sodium Chloride 0.9% 100 ML IVPB SCH ×2 (14:46→14:52)
[2020-07-31] MEDS: Atorvastatin Calcium 20 MG TAB PO SCH (20:10)
[2020-08-01] MEDS: Piperacillin/Tazobactam 2.25 GM in Sodium Chloride 0.9% 100 ML IVPB SCH ×2 (01:50→14:13)
[2020-08-01 04:31] LABS: Anion Gap 17 mmol/L (10-20); BUN (Urea Nitrogen) 61 mg/dL (8.4-25.7); Calc. Creatinine Clearance 23 mL/min (70-130); Calcium 7.7 mg/dL (7.8-10.44); Carbon Dioxide 22 mmol/L (23-31); Chloride 97 mmol/L (98-107); Estimated GFR-MDRD 17; Glucose 134 mg/dL (83-110); Magnesium 2.7 mg/dL (1.6-2.6); Potassium 4.8 mmol/L (3.5-5.1); Sodium 131 mmol/L (136-145)
[2020-08-01 06:57] LABS: #Eosinphils 0.1 thou/uL (0.0-0.7); #Lymphocytes 0.6 thou/uL (1.20-3.40); #Monocytes 0.7 thou/uL (0.11-0.59); #Neutrophils 12.4 thou/uL (1.40-6.50); %Eosinophils 0.4 % (0.0-10.0); %Lymphocytes 4.1 % (21.0-51.0); %Monocytes 4.8 % (0.0-10.0); %Neutrophils 90.7 % (42.0-75.0); Hemoglobin 9.4 g/dL (14.0-18.0); Mean Corpuscular HGB CONC 31.8 g/dL (32.0-36.0); Mean Corpuscular Hemoglobin 29.9 pg (27.0-31.0); Mean Platelet Volume 9.7 fL (7.4-10.4); Platelet Count 182 thou/uL (130-400); RBC Distribution Width 17.4 % (11.5-14.5); Red Blood Cell (RBC) Count 3.14 mill/uL (4.70-6.10); White Blood Cell (WBC) Count 13.7 thou/uL (4.8-10.8)
[2020-08-01] MEDS: Sildenafil Citrate 20 MG TAB PO SCH ×3 (07:25→21:24)
[2020-08-01] MEDS ORDERED: Heparin 10,000 UNITS/ 10 ML VIAL ONE (08:52)
[2020-08-01] MEDS: Mometasone 200 MCG/Formoterol 5 MCG 120 PUFF INHALER INH SCH ×2 (10:11→18:59)
--- NOTE | 2020-08-01 10:20 | PRG ---
DATE OF SERVICE: 08/01/2020 SUBJECTIVE: Mr. Mart is undergoing hemodialysis now. He is tolerating it well. He is awake and alert. OBJECTIVE: VITAL SIGNS: Blood pressure 115/59, pulse in the high 70s and it is sinus rhythm. LUNGS: Clear. CARDIAC: Normal S1 and normal S2. ABDOMEN: Soft, nontender. EXTREMITIES: Only cmup-fc-udzzdmuu edema. GENITOURINARY: Scrotal edema, mild to moderate. ASSESSMENT: 1. Congestive heart failure, diastolic, gradually improving with hemodialysis. 2. History of pulmonary hypertension. PLAN: 1. From a cardiac standpoint, he is on sildenafil. 2. Fludrocortisone due to adrenal suppression. 3. He is on low-dose prednisone replacement doses. 4. Consideration for placement being made, Dr. Fowler said he consulted the [facility] for about the primary care and help in placement. The patient is still on intravenous antibiotics as well. Job ID: [id number]
[2020-08-01 10:34] VITALS: BMI 30.7
[2020-08-01] MEDS: Senokot S 8.6-50 MG TAB PO SCH ×2 (11:36→21:25)
[2020-08-01] MEDS: Sucralfate 1 GM TAB PO SCH ×3 (11:36→18:29)
[2020-08-01] MEDS: Cholecalciferol 1,000 UNITS (25 MCG) TAB PO SCH (11:38)
[2020-08-01] MEDS: Multivitamin W/ Minerals 1 TAB PO SCH (11:38)
[2020-08-01] MEDS: Pregabalin 25 MG CAP PO SCH (11:39)
[2020-08-01] MEDS: guaiFENesin ER 600 MG TAB PO SCH ×2 (11:39→21:23)
[2020-08-01] MEDS: predniSONE 20 MG TAB PO SCH (11:39)
[2020-08-01] MEDS: Amiodarone 200 MG TAB PO SCH (11:39)
[2020-08-01] MEDS: Gabapentin 100 MG CAP PO SCH ×2 (11:39→21:24)
[2020-08-01] MEDS: Sulfameth/Trimethoprim SS 400-80MG TAB PO SCH (11:40)
[2020-08-01] MEDS: Fludrocortisone Acetate 0.1 MG TAB PO SCH (11:40)
[2020-08-01] MEDS: Fluticasone Propionate Nasal Spray 16 gm Bottle NASAL SCH (11:40)
[2020-08-01] MEDS: Magnesium Oxide 400 MG TAB PO SCH ×2 (11:40→21:24)
[2020-08-01] MEDS: Tamsulosin HCl 0.4 MG CAP PO SCH (11:40)
[2020-08-01] MEDS: Nystatin Powder 15 GM BOT TOP SCH ×2 (11:40→21:26)
--- NOTE | 2020-08-01 12:27 | PRG ---
DATE OF SERVICE: SUBJECTIVE: Patient was seen and examined at bedside and overnight events noted. Patient denies any shortness of breath or chest pain or palpitation. No history of nausea or vomiting or diarrhea or fever or chills or cramps. OBJECTIVE: General: This is a well-built male, in no apparent distress. Vital Signs: Temperature 97.8. Heart Rate 83. Respiratory rate 18. Blood pressure 115/59. HEENT: Atraumatic, normocephalic. Oral mucosa is moist. Neck: Supple. Cardiovascular: S1, S2 heard. Rate and rhythm regular. Respiratory: Clear to auscultation. Gastrointestinal: Abdomen is soft. Musculoskeletal: 2+ edema. Dermatologic: No skin rash. Neurologic: Alert and awake and oriented x3. No focal neurologic deficits. Moving all the extremities. Psychiatric: Mood and affect normal. LABORATORY DATA: Potassium 4.8, BUN is 61, and creatinine is 3.4. ASSESSMENT AND PLAN: 1. End-stage renal disease, on hemodialysis. Plan to have dialysis and fluid overload. 2. Cardiorenal syndrome. 3. Hyponatremia. 4. Acidosis. 5. Hypocalcemia. 6. Anemia of chronic disease. Plan to have dialysis, most likely may need daily dialysis, fluid removal. The patient is tolerating well. We will continue on dialysis and fluid removal as tolerated. Job ID: [id number]
[2020-08-01] MEDS: Atorvastatin Calcium 20 MG TAB PO SCH (21:24)
[2020-08-02 04:04] LABS: #Eosinphils 0.1 thou/uL (0.0-0.7); #Lymphocytes 0.5 thou/uL (1.20-3.40); #Monocytes 0.7 thou/uL (0.11-0.59); #Neutrophils 12.6 thou/uL (1.40-6.50); %Basophils 0.1 % (0.0-1.0); %Eosinophils 0.6 % (0.0-10.0); %Lymphocytes 3.9 % (21.0-51.0); %Neutrophils 90.4 % (42.0-75.0); Hemoglobin 9.5 g/dL (14.0-18.0); Mean Corpuscular HGB CONC 31.4 g/dL (32.0-36.0); Mean Corpuscular Hemoglobin 29.7 pg (27.0-31.0); Mean Corpuscular Volume 94.3 fL (78.0-98.0); Mean Platelet Volume 9.4 fL (7.4-10.4); Platelet Count 184 thou/uL (130-400); RBC Distribution Width 17.4 % (11.5-14.5); Red Blood Cell (RBC) Count 3.21 mill/uL (4.70-6.10); White Blood Cell (WBC) Count 13.9 thou/uL (4.8-10.8)
[2020-08-02] MEDS: Sildenafil Citrate 20 MG TAB PO SCH ×3 (07:40→21:12)
[2020-08-02] MEDS: Mometasone 200 MCG/Formoterol 5 MCG 120 PUFF INHALER INH SCH ×2 (08:15→20:29)
[2020-08-02] MEDS ORDERED: Heparin 10,000 UNITS/ 10 ML VIAL ONE (09:14)
--- NOTE | 2020-08-02 10:00 | PRG ---
DATE OF SERVICE: SUBJECTIVE: The patient is currently undergoing hemodialysis, doing well, tolerating that. OBJECTIVE: VITAL SIGNS: His blood pressure is 130/80, pulse is in the 80s and sinus. LUNGS: Clear. CARDIAC: Normal S1, normal S2. ABDOMEN: Soft, nontender. EXTREMITIES: Still moderate edema. ASSESSMENT: 1. Congestive heart failure, diastolic. 2. Right heart failure. 3. History of anemia, iron deficiency. 4. Atrial arrhythmias, stable. 5. Renal failure, on dialysis. PLAN: 1. He is on dialysis that appears daily. 2. Change tamsulosin from morning to at bedtime to try to keep his blood pressure as high as possible during dialysis to facilitate fluid removal. 3. Reduce magnesium from twice a day to once a day in view of renal failure. 4. Continue amiodarone. 5. Probably, he will be placed later this week in the nursing facility. Job ID: [id number]
[2020-08-02 10:12] LABS: Anion Gap 14 mmol/L (10-20); BUN (Urea Nitrogen) 38 mg/dL (8.4-25.7); Calc. Creatinine Clearance 32 mL/min (70-130); Calcium 7.8 mg/dL (7.8-10.44); Carbon Dioxide 27 mmol/L (23-31); Chloride 100 mmol/L (98-107); Estimated GFR-MDRD 26; Glucose 139 mg/dL (83-110); Magnesium 2.4 mg/dL (1.6-2.6); Potassium 4.1 mmol/L (3.5-5.1); Sodium 137 mmol/L (136-145)
[2020-08-02] MEDS: Fludrocortisone Acetate 0.1 MG TAB PO SCH (10:17)
[2020-08-02] MEDS: Sucralfate 1 GM TAB PO SCH ×3 (10:17→18:23)
[2020-08-02] MEDS: guaiFENesin ER 600 MG TAB PO SCH ×2 (10:18→20:13)
[2020-08-02] MEDS: Amiodarone 200 MG TAB PO SCH (10:18)
[2020-08-02] MEDS: Cholecalciferol 1,000 UNITS (25 MCG) TAB PO SCH (10:18)
[2020-08-02] MEDS: Gabapentin 100 MG CAP PO SCH ×2 (10:18→20:12)
[2020-08-02] MEDS: Pregabalin 25 MG CAP PO SCH (10:19)
[2020-08-02] MEDS: Multivitamin W/ Minerals 1 TAB PO SCH (10:19)
[2020-08-02] MEDS: predniSONE 20 MG TAB PO SCH (10:20)
[2020-08-02] MEDS: Fluticasone Propionate Nasal Spray 16 gm Bottle NASAL SCH (10:33)
[2020-08-02] MEDS: Nystatin Powder 15 GM BOT TOP SCH ×2 (10:33→20:18)
[2020-08-02] MEDS: Senokot S 8.6-50 MG TAB PO SCH ×2 (10:34→20:13)
--- NOTE | 2020-08-02 12:05 | PRG ---
DATE OF SERVICE: 08/02/2020 SUBJECTIVE: The patient was seen and examined at bedside and overnight events noted. The patient denies any shortness of breath or chest pain or palpitation. No history of nausea or vomiting or diarrhea or fever or chills or cramps. OBJECTIVE: GENERAL: This is a well-built male, in no apparent distress. VITAL SIGNS: Temperature 98.4. Heart rate 79. Respiratory rate 20. Blood pressure 120/46. HEENT: Atraumatic, normocephalic. Oral mucosa is moist. NECK: Supple. CARDIOVASCULAR: S1, S2 heard. Rate and rhythm regular. RESPIRATORY: Clear to auscultation. GASTROINTESTINAL: Abdomen is soft. MUSCULOSKELETAL: 2+ edema. DERMATOLOGIC: No skin rash. NEUROLOGIC: Alert and awake and oriented x3. No focal neurologic deficits. Moving all the extremities. PSYCHIATRIC: Mood and affect normal. LABORATORY DATA: Potassium is 4.1, BUN is 38, creatinine is 2.4. ASSESSMENT AND PLAN: 1. End-stage renal disease, on hemodialysis. Plan is to have daily dialysis. Since he is having good clearance, I will alternate ultrafiltration only treatment with regular dialysis. We will continue to monitor the labs. 2. Cardiorenal syndrome. As above, tolerating dialysis well. Continue optimization of cardiac medications. 3. Hyponatremia. Limit fluid intake. was at the bedside and counseled again. 4. Acidosis from poor circulation. 5. Hypocalcemia from renal disease. 6. Anemia of chronic disease. 7. History of hypotension. 8. Right-sided heart failure. 9. Diastolic dysfunction. 10. Severe deconditioning. I did discuss with the family about the need for LTAC. Medically, I feel like he is more appropriate for LTAC, but family is having issues with taking care of him from a distance and would like to have [facility] with SNF, and I had discussion with Case Management yesterday, and I think SNF is arranging all the equipments that are needed to take care of him at [facility], which the family prefers. I expressed my concerns over the need for transportation of him from [place] to [place] for his dialysis 3 times a week and safety risks, and the family understands that. For the time being, follow with Case Management for outpatient placement. We will continue on dialysis, which he is tolerating reasonably well at this point. We will continue to advise to limit fluid and salt intake. We will continue fluid removal as tolerated. Thank you for allowing me to participate in the care of this patient. Job ID: [id number]
[2020-08-02] MEDS: Magnesium Oxide 400 MG TAB PO SCH (12:39)
[2020-08-02] MEDS: Tamsulosin HCl 0.4 MG CAP PO SCH ×2 (12:39→20:13)
[2020-08-02] MEDS: Atorvastatin Calcium 20 MG TAB PO SCH (20:12)
--- NOTE | 2020-08-02 20:23 | PRG ---
DATE OF SERVICE: 08/02/2020 SUBJECTIVE: Bin Mart is still in the hospital. He want to go to [facility] bed. He is currently being dialyzed. Events of the last week have been reviewed. OBJECTIVE: VITAL SIGNS: His heart rate this morning is in the 70s, respiratory rate is in the teens. He was still on his CPAP when I evaluated this morning, but he took this off and was doing well. LUNGS: He had no wheezes on exam. HEART: Regular rhythm. ABDOMEN: Soft. IMPRESSION: 1. Chronic obstructive pulmonary disease. 2. Extreme deconditioning, which is the biggest issue he is facing. 3. Acute renal failure. 4. Diastolic heart failure. 5. Cor pulmonale secondary to chronic obstructive pulmonary disease and diastolic heart failure, predominantly secondary to chronic obstructive pulmonary disease. Labs been reviewed. He is being evaluated for transfer to [facility]. Job ID: [id number] MTDD
[2020-08-03 03:51] LABS: #Eosinphils 0.1 thou/uL (0.0-0.7); #Lymphocytes 0.5 thou/uL (1.20-3.40); #Monocytes 0.6 thou/uL (0.11-0.59); #Neutrophils 10.4 thou/uL (1.40-6.50); %Eosinophils 0.5 % (0.0-10.0); %Lymphocytes 4.6 % (21.0-51.0); %Monocytes 4.8 % (0.0-10.0); %Neutrophils 90.2 % (42.0-75.0); Hemoglobin 9.3 g/dL (14.0-18.0); Mean Corpuscular HGB CONC 31.7 g/dL (32.0-36.0); Mean Corpuscular Hemoglobin 29.9 pg (27.0-31.0); Mean Corpuscular Volume 94.2 fL (78.0-98.0); Mean Platelet Volume 9.6 fL (7.4-10.4); Platelet Count 169 thou/uL (130-400); RBC Distribution Width 17.4 % (11.5-14.5); Red Blood Cell (RBC) Count 3.11 mill/uL (4.70-6.10); White Blood Cell (WBC) Count 11.5 thou/uL (4.8-10.8)
[2020-08-03 04:14] LABS: Anion Gap 13 mmol/L (10-20); BUN (Urea Nitrogen) 45 mg/dL (8.4-25.7); Calc. Creatinine Clearance 27 mL/min (70-130); Calcium 7.5 mg/dL (7.8-10.44); Carbon Dioxide 27 mmol/L (23-31); Chloride 99 mmol/L (98-107); Estimated GFR-MDRD 21; Glucose 193 mg/dL (83-110); Magnesium 2.5 mg/dL (1.6-2.6); Sodium 135 mmol/L (136-145)
[2020-08-03] MEDS: Senokot S 8.6-50 MG TAB PO SCH ×2 (07:06→20:06)
[2020-08-03] MEDS: Sildenafil Citrate 20 MG TAB PO SCH ×3 (07:06→21:54)
[2020-08-03] MEDS: Sucralfate 1 GM TAB PO SCH ×3 (07:09→17:32)
[2020-08-03] MEDS ORDERED: Heparin 10,000 UNITS/ 10 ML VIAL ONE (08:23)
[2020-08-03] MEDS: Mometasone 200 MCG/Formoterol 5 MCG 120 PUFF INHALER INH SCH ×2 (08:38→19:34)
--- NOTE | 2020-08-03 10:49 | PRG ---
DATE OF SERVICE: 08/03/2020 SUBJECTIVE: Patient was seen and examined at bedside and overnight events noted. Patient denies any shortness of breath or chest pain or palpitation. No history of nausea or vomiting or diarrhea or fever or chills or cramps. OBJECTIVE: General: This is a well-built male, in no apparent distress. Vital Signs: Temperature 98.4. Heart Rate 76. Respiratory rate 18. Blood pressure 133/85. HEENT: Atraumatic, normocephalic. Oral mucosa is moist. Neck: Supple. Cardiovascular: S1, S2 heard. Rate and rhythm regular. Respiratory: Clear to auscultation. Gastrointestinal: Abdomen is soft. Musculoskeletal: 3+ edema. Dermatologic: No skin rash. Neurologic: Alert and awake and oriented x3. No focal neurologic deficits. Moving all the extremities. Psychiatric: Mood and affect normal. LABORATORY DATA: Potassium 4.0, BUN is 45, and creatinine is 2.8. ASSESSMENT AND PLAN: 1. End-stage renal disease. Remains dialysis dependent. Plan to have dialysis today with fluid removal. 2. Cardiorenal syndrome. We will continue fluid removal. 3. Right-sided heart failure. 4. Diastolic dysfunction. 5. Chronic obstructive pulmonary disease. 6. Anemia of chronic disease. 7. Severe deconditioning. Continue rehab. We will continue daily dialysis with fluid removal as tolerated. We will follow up. The patient was advised to limit salt and fluid intake. Job ID: [id number]
[2020-08-03] MEDS: Gabapentin 100 MG CAP PO SCH ×2 (16:56→20:05)
[2020-08-03] MEDS: guaiFENesin ER 600 MG TAB PO SCH ×2 (16:57→20:05)
--- NOTE | 2020-08-03 17:11 | PRG ---
DATE OF SERVICE: 08/03/2020 SUBJECTIVE: Bin Mart has no new complaints. OBJECTIVE: VITAL SIGNS: He is afebrile, heart rate 77, respiratory rate is 14, oximetry is 97, blood pressure 140/49. Intake and output; 1180 in and . His weight is down a pound. LUNGS: Free of wheezes. HEART: Regular rhythm. ABDOMEN: Soft. IMPRESSION AND PLAN: 1. Chronic obstructive pulmonary disease, stable, likely steroid dependent. 2. Extreme deconditioning after hip fracture repair and then treatment of heart failure. 3. Diastolic heart failure. 4. Cor pulmonale. He is stable to transfer to a swing bed if one becomes available. Job ID: [id number]
[2020-08-03] MEDS: Fluticasone Propionate Nasal Spray 16 gm Bottle NASAL SCH (17:31)
[2020-08-03] MEDS: Sulfameth/Trimethoprim SS 400-80MG TAB PO SCH (17:32)
[2020-08-03] MEDS: Multivitamin W/ Minerals 1 TAB PO SCH (17:32)
[2020-08-03] MEDS: Amiodarone 200 MG TAB PO SCH (17:32)
[2020-08-03] MEDS: Magnesium Oxide 400 MG TAB PO SCH (17:32)
[2020-08-03] MEDS: Nystatin Powder 15 GM BOT TOP SCH ×2 (17:32→20:08)
[2020-08-03] MEDS: Pregabalin 25 MG CAP PO SCH (17:33)
[2020-08-03] MEDS: predniSONE 20 MG TAB PO SCH (17:33)
[2020-08-03] MEDS: Cholecalciferol 1,000 UNITS (25 MCG) TAB PO SCH (17:33)
[2020-08-03] MEDS: Fludrocortisone Acetate 0.1 MG TAB PO SCH (17:36)
[2020-08-03] MEDS: Atorvastatin Calcium 20 MG TAB PO SCH (20:05)
[2020-08-03] MEDS: Tamsulosin HCl 0.4 MG CAP PO SCH (20:06)
[2020-08-03] MEDS: Acetaminophen 325 MG TAB PO PRN (22:35)
[2020-08-04 03:56] LABS: #Eosinphils 0.1 thou/uL (0.0-0.7); #Lymphocytes 0.8 thou/uL (1.20-3.40); #Monocytes 0.7 thou/uL (0.11-0.59); #Neutrophils 13.6 thou/uL (1.40-6.50); %Basophils 0.1 % (0.0-1.0); %Eosinophils 0.5 % (0.0-10.0); %Lymphocytes 5.2 % (21.0-51.0); %Monocytes 4.3 % (0.0-10.0); Hemoglobin 9.1 g/dL (14.0-18.0); Mean Corpuscular HGB CONC 31.8 g/dL (32.0-36.0); Mean Corpuscular Hemoglobin 30.2 pg (27.0-31.0); Mean Corpuscular Volume 94.8 fL (78.0-98.0); Platelet Count 159 thou/uL (130-400); RBC Distribution Width 17.4 % (11.5-14.5); Red Blood Cell (RBC) Count 3.03 mill/uL (4.70-6.10); White Blood Cell (WBC) Count 15.2 thou/uL (4.8-10.8)
[2020-08-04 04:24] LABS: Anion Gap 15 mmol/L (10-20); BUN (Urea Nitrogen) 46 mg/dL (8.4-25.7); Calc. Creatinine Clearance 25 mL/min (70-130); Calcium 7.7 mg/dL (7.8-10.44); Carbon Dioxide 23 mmol/L (23-31); Chloride 101 mmol/L (98-107); Estimated GFR-MDRD 19; Glucose 139 mg/dL (83-110); Magnesium 2.5 mg/dL (1.6-2.6); Sodium 135 mmol/L (136-145)
[2020-08-04] MEDS: Sildenafil Citrate 20 MG TAB PO SCH ×3 (06:34→21:45)
[2020-08-04] MEDS: Mometasone 200 MCG/Formoterol 5 MCG 120 PUFF INHALER INH SCH ×2 (06:50→18:22)
[2020-08-04] MEDS: Senokot S 8.6-50 MG TAB PO SCH ×2 (07:07→21:45)
[2020-08-04] MEDS: Nystatin Powder 15 GM BOT TOP SCH ×2 (07:18→21:52)
[2020-08-04] MEDS: Fludrocortisone Acetate 0.1 MG TAB PO SCH (07:18)
[2020-08-04] MEDS: Fluticasone Propionate Nasal Spray 16 gm Bottle NASAL SCH (07:18)
[2020-08-04] MEDS: Gabapentin 100 MG CAP PO SCH ×2 (07:19→21:44)
[2020-08-04] MEDS: Cholecalciferol 1,000 UNITS (25 MCG) TAB PO SCH (07:19)
[2020-08-04] MEDS: Amiodarone 200 MG TAB PO SCH (07:19)
[2020-08-04] MEDS: Sucralfate 1 GM TAB PO SCH ×3 (07:19→17:37)
[2020-08-04] MEDS: Magnesium Oxide 400 MG TAB PO SCH (07:19)
[2020-08-04] MEDS: Pregabalin 25 MG CAP PO SCH (07:19)
[2020-08-04] MEDS: Multivitamin W/ Minerals 1 TAB PO SCH (07:19)
[2020-08-04] MEDS: predniSONE 20 MG TAB PO SCH (07:19)
[2020-08-04] MEDS: guaiFENesin ER 600 MG TAB PO SCH ×2 (07:20→21:44)
[2020-08-04] MEDS ORDERED: Heparin 10,000 UNITS/ 10 ML VIAL ONE (08:43)
--- NOTE | 2020-08-04 10:05 | PRG ---
DATE OF SERVICE: 08/04/2020 SUBJECTIVE: Mr. Mart is about to undergo hemodialysis. He is not short of breath, feels okay. OBJECTIVE: VITAL SIGNS: Blood pressure 128/69, pulse 80 and it is sinus. LUNGS: Clear. CARDIAC: Normal S1 and normal S2. ABDOMEN: Soft, nontender. EXTREMITIES: There is still moderate edema. ASSESSMENT: 1. Diastolic heart failure. 2. Chronic obstructive pulmonary disease. 3. Right heart failure secondary to chronic obstructive pulmonary disease. 4. Anemia, stable. PLAN: 1. Continue dialysis. 2. Magnesium dose was reduced. 3. Low-dose sildenafil. 4. Amiodarone. 5. Fludrocortisone. 6. Replacement dose steroids. 7. Plans were being made to try to place him in an outpatient setting. Job ID: [id number]
--- NOTE | 2020-08-04 11:27 | PRG ---
DATE OF SERVICE: 08/04/2020 SUBJECTIVE: Patient was seen and examined at bedside and overnight events noted. Patient denies any shortness of breath or chest pain or palpitation. No history of nausea or vomiting or diarrhea or fever or chills or cramps. OBJECTIVE: General: This is a well-built male, in no apparent distress. Vital Signs: Temperature 98.6. Heart Rate 80. Respiratory rate 18. Blood pressure 151/65. HEENT: Atraumatic, normocephalic. Oral mucosa is moist. Neck: Supple. Cardiovascular: S1, S2 heard. Rate and rhythm regular. Respiratory: Clear to auscultation. Gastrointestinal: Abdomen is soft. Musculoskeletal: 1+ edema. Dermatologic: No skin rash. Neurologic: Alert and awake and oriented x3. No focal neurologic deficits. Moving all the extremities. Psychiatric: Mood and affect normal. LABORATORY DATA: Potassium 4.0, BUN is 46, and creatinine is 3.1. ASSESSMENT AND PLAN: 1. End-stage renal disease. Continue on dialysis. The patient on daily dialysis with fluid removal. Plan is to have ultrafiltration only today. We will increase the time to 4 hours with the plan to remove 4 L if tolerated. 2. Edema with cardiorenal syndrome. 3. Diastolic dysfunction, right-sided heart failure. 4. Anemia of chronic disease. 5. Severe deconditioning . 6. Continue to limit salt and fluid intake. Blood pressure is tolerating. We will plan to have ultrafiltration as tolerated. Job ID: [id number]
--- NOTE | 2020-08-04 13:08 | PRG ---
DATE OF SERVICE: 08/04/2020 SUBJECTIVE: Bin Mart is doing well. He is to be started on dialysis again this morning. His hemodynamics have been stable. OBJECTIVE: LUNGS: Free of wheezes. HEART: Regular rhythm. ABDOMEN: Soft. VITAL SIGNS: Blood pressure at noon is 136/58, heart rate 76, respiratory rate 16. IMPRESSION: 1. Advanced obstructive lung disease. 2. Severe deconditioning. 3. Diastolic dysfunction. 4. Cor pulmonale. 5. Chronic edema secondary to the above problems. 6. Acute on chronic kidney disease, now being dialyzed. PLAN: Transfer to [facility] when a bed becomes available. Job ID: [id number]
--- NOTE | 2020-08-04 17:17 | PDOC.GSPN ---
Surgery Progress Note: Subj - Subjective Narrative: Patient is doing well. His hemodialysis catheter is functioning normally when he has tolerating dialysis. No pain in his left hand. He is doing his hand exercises. His fistula has an excellent thrill. Assessment/plan: Doing well status post placement of dialysis catheter and left AV fistula. I will see him in the clinic in 2 to 3 weeks time. If his PICC li ne can be removed I would recommend doing so prior to discharge. Surgery Progress Note: Obj - Vital signs Vital signs: Vital Signs - Most Recent Temp Pulse Resp BP Pulse Ox 97.9 F 82 18 126/56 L 97 08/04/20 15:21 08/04/20 16:00 08/04/20 15:00 08/04/20 16:00 08/04/20 16:00 Surgery Progress Note: Results - Labs Result Diagrams: 08/04/20 03:21 08/04/20 03:21 Lab results: Laboratory Results - last 12 hr 08/04/20 08/04/20 11:12 16:42 POC Glucose 113 H 105 H
[2020-08-04] MEDS: Tamsulosin HCl 0.4 MG CAP PO SCH (21:44)
[2020-08-04] MEDS: Atorvastatin Calcium 20 MG TAB PO SCH (21:45)
[2020-08-04] MEDS: Acetaminophen 325 MG TAB PO PRN (21:48)
[2020-08-05 04:06] LABS: #Eosinphils 0.1 thou/uL (0.0-0.7); #Lymphocytes 0.9 thou/uL (1.20-3.40); #Monocytes 0.7 thou/uL (0.11-0.59); #Neutrophils 13.5 thou/uL (1.40-6.50); %Basophils 0.1 % (0.0-1.0); %Eosinophils 0.7 % (0.0-10.0); %Lymphocytes 5.6 % (21.0-51.0); %Monocytes 4.7 % (0.0-10.0); Hemoglobin 9.1 g/dL (14.0-18.0); Mean Corpuscular HGB CONC 31.7 g/dL (32.0-36.0); Mean Corpuscular Hemoglobin 29.8 pg (27.0-31.0); Mean Corpuscular Volume 94.1 fL (78.0-98.0); Mean Platelet Volume 9.8 fL (7.4-10.4); Platelet Count 152 thou/uL (130-400); RBC Distribution Width 17.2 % (11.5-14.5); Red Blood Cell (RBC) Count 3.05 mill/uL (4.70-6.10); White Blood Cell (WBC) Count 15.2 thou/uL (4.8-10.8)
[2020-08-05 04:07] LABS: Mean Corpuscular HGB CONC 31.4 g/dL (32.0-36.0); Mean Corpuscular Hemoglobin 29.5 pg (27.0-31.0); Mean Platelet Volume 9.8 fL (7.4-10.4); Platelet Count 156 thou/uL (130-400); RBC Distribution Width 17.1 % (11.5-14.5); Red Blood Cell (RBC) Count 3.03 mill/uL (4.70-6.10); White Blood Cell (WBC) Count 15.2 thou/uL (4.8-10.8)
[2020-08-05 04:27] LABS: Anion Gap 16 mmol/L (10-20); BUN (Urea Nitrogen) 64 mg/dL (8.4-25.7); Calc. Creatinine Clearance 20 mL/min (70-130); Calcium 7.9 mg/dL (7.8-10.44); Carbon Dioxide 23 mmol/L (23-31); Chloride 96 mmol/L (98-107); Estimated GFR-MDRD 15; Glucose 96 mg/dL (83-110); Magnesium 2.8 mg/dL (1.6-2.6); Potassium 5.3 mmol/L (3.5-5.1); Sodium 130 mmol/L (136-145)
[2020-08-05] MEDS: Sildenafil Citrate 20 MG TAB PO SCH ×3 (06:40→20:04)
[2020-08-05] MEDS: Mometasone 200 MCG/Formoterol 5 MCG 120 PUFF INHALER INH SCH ×2 (08:00→18:28)
[2020-08-05] MEDS ORDERED: Heparin 10,000 UNITS/ 10 ML VIAL ONE (09:30)
[2020-08-05] MEDS: Fluticasone Propionate Nasal Spray 16 gm Bottle NASAL SCH (10:31)
[2020-08-05] MEDS: Multivitamin W/ Minerals 1 TAB PO SCH (10:31)
[2020-08-05] MEDS: Gabapentin 100 MG CAP PO SCH ×2 (10:31→20:04)
[2020-08-05] MEDS: Magnesium Oxide 400 MG TAB PO SCH (10:31)
[2020-08-05] MEDS: Cholecalciferol 1,000 UNITS (25 MCG) TAB PO SCH (10:31)
[2020-08-05] MEDS: Nystatin Powder 15 GM BOT TOP SCH ×2 (10:31→20:07)
[2020-08-05] MEDS: guaiFENesin ER 600 MG TAB PO SCH ×2 (10:32→20:04)
[2020-08-05] MEDS: Sulfameth/Trimethoprim SS 400-80MG TAB PO SCH (10:32)
[2020-08-05] MEDS: predniSONE 20 MG TAB PO SCH (10:32)
[2020-08-05] MEDS: Amiodarone 200 MG TAB PO SCH (10:32)
[2020-08-05] MEDS: Fludrocortisone Acetate 0.1 MG TAB PO SCH (10:32)
[2020-08-05] MEDS: Sucralfate 1 GM TAB PO SCH ×2 (10:32→10:54)
[2020-08-05] MEDS: Pregabalin 25 MG CAP PO SCH (10:32)
[2020-08-05] MEDS: Senokot S 8.6-50 MG TAB PO SCH ×2 (10:33→20:07)
--- NOTE | 2020-08-05 10:46 | PRG ---
DATE OF SERVICE: 08/05/2020 SUBJECTIVE: Mr. Mart is awake and alert. No complaints. OBJECTIVE: VITAL SIGNS: Blood pressure 130/86, pulse is in the 78. LUNGS: Clear. CARDIAC: Normal S1 and S2. ABDOMEN: Soft and nontender. EXTREMITIES: Mild to moderate peripheral edema, improved from previous. LABORATORY DATA: Potassium is 5.3, creatinine is 3.96. Most recent magnesium is 2.8, even despite lowering the magnesium dose. ASSESSMENT: 1. Congestive heart failure, diastolic; volume status is improved. 2. Renal failure, on dialysis. 3. Pulmonary hypertension. PLAN: 1. Stop magnesium. 2. Continue dialysis. 3. The patient is ready to be transferred to another facility for rehabilitation. Job ID: [id number]
--- NOTE | 2020-08-05 13:34 | OP ---
DATE OF PROCEDURE: 06/03/2020 ADDENDUM: The cook's assistant/co-surgeon was present through the entire procedure and was responsible for providing exposure, tissue retraction and any necessary limb or tissue manipulation required to obtain necessary reduction or hardware placement. The cook's assistant/co-surgeon also provided bleeding control, tissue closure, and suturing in conjunction with the primary surgeon. Job ID: [id number]
--- NOTE | 2020-08-05 15:20 | PRG ---
DATE OF SERVICE: 08/05/2020 SUBJECTIVE: Patient was seen and examined at bedside and overnight events noted. Patient denies any shortness of breath or chest pain or palpitation. No history of nausea or vomiting or diarrhea or fever or chills or cramps. OBJECTIVE: GENERAL: This is a well-built male, in no apparent distress. VITAL SIGNS: Temperature 98.2. Heart Rate 77. Respiratory rate . HEENT: Atraumatic, normocephalic. Oral mucosa is moist. NECK: Supple. CARDIOVASCULAR: S1, S2 heard. Rate and rhythm regular. RESPIRATORY: Clear to auscultation. GASTROINTESTINAL: Abdomen is soft. MUSCULOSKELETAL: 2+ edema. DERMATOLOGIC: No skin rash. NEUROLOGIC: Alert and awake and oriented x3. No focal neurologic deficits. Moving all the extremities. PSYCHIATRIC: Mood and affect normal. LABORATORY DATA: Potassium is 5.3, BUN is 64, and creatinine is 3.9. ASSESSMENT AND PLAN: 1. End-stage renal disease. Continue dialysis as tolerated. We will plan for dialysis 3 hours. 2. Edema, we will remove fluid with dialysis. 3. Cardiorenal syndrome. 4. Diastolic dysfunction. 5. Right-sided heart failure. 6. Anemia of chronic disease. 7. Severe deconditioning. 8. Hyperkalemia. We will plan for dialysis today. Job ID: [id number]
[2020-08-05 19:48] VITALS: BP 134/56; TEMP 97.7
[2020-08-05] MEDS: Acetaminophen 325 MG TAB PO PRN (20:03)
[2020-08-05] MEDS: Atorvastatin Calcium 20 MG TAB PO SCH (20:04)
[2020-08-05] MEDS: Tamsulosin HCl 0.4 MG CAP PO SCH (20:04)
--- NOTE | 2020-08-06 01:31 | DIS ---
DATE OF ADMISSION: 06/02/2020 DATE OF DISCHARGE: 08/05/2020 DISCHARGE DIAGNOSES: 1. Status post hip fracture. 2. Chronic obstructive pulmonary disease with chronic hypoxemic respiratory failure, on home oxygen. 3. Extreme deconditioning related to this hospitalization. 4. History of atrial fibrillation. 5. Hypertension. 6. History of multiple infections after his hemiarthroplasty with methicillin-resistant Staphylococcus aureus. Morganella was also isolated, but may have been a contaminant. 7. Hypersensitive reaction to either vancomycin or meropenem, switched to Zosyn and daptomycin. Dr. Beaver has been guiding antimicrobial therapy. 8. Acute on chronic kidney disease leading to dialysis this admission. 9. History of diastolic heart failure. 10. Cor pulmonale, chronic lower extremity edema. 11. Steroid dependence, more apparent this admission. 12. Status post Watchman procedure in the past. 13. History of gastrointestinal bleeding with anticoagulants. 14. History of recurrent atrial flutter with ablation procedures in the past. 15. 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 16. History of requiring multiple blood transfusions in 2019 with gastrointestinal blood loss. 17. Lipid disorder. 18. Benign prostatic hypertrophy. 19. History of urinary tract infections in the past related to De catheters. Please see history, physical details. Briefly, Mr. Mart is completing over 2-month hospitalization, complicated ultimately by renal failure requiring dialysis. He had multiple inotropic agents administered to try to help with his heart failure, IV Lasix drips, intermittent dose of IV steroids, frequent nebulized treatments, physical therapy. He eventually got to a point where he is ambulating and then became bedridden with his IV therapy, but now is unable ambulate. Lately, he has been a little recalcitrant towards exercising on his own. Physical Therapy can only spent 10 or 15 minutes with him, so he is not making much progress. I have explained to him on a daily basis that if he does not start doing exercises on his own trying to build up his leg strength, he will not make it home and will eventually end up in a intermediate. He says he is willing to try. Medications have been reviewed. He is on p.o. amiodarone, atorvastatin. He was on Florinef, but I have stopped that since he is being dialyzed. He is on gabapentin. He has insulin sliding scale. He is getting nebulized treatments every 4 hours while he is awake. He is on Dulera. He is on p.o. Protonix twice a day, 10 mg prednisone a day. He may end up doing better with 10 mg alternating with 20 every other day, but for now, we could consider moving forward on 10 mg a day since he has not been wheezing this last week. He is on Lyrica. He is on Revatio. He was started on Carafate, but I will discontinue this given that it does not tend to work very well, Protonix. Dr. Beaver has him on Bactrim, q. Saturday, Saturday, Saturday. He is still on Flomax. He is stable for discharge to [facility] in my opinion. PERTINENT LAB PRIOR TO DISCHARGE: His hemoglobin 9.1, which has been stable. He is being dialyzed today. Potassium was 5.3 this morning. His INR was normal when last checked. Job ID: [id number]
== END 2020-08-05 20:31 | disposition swing bed (61) | DRG 466 ==
LOC: ERS 09:11 → SJJU 11:18 → SURG A 06-18 22:06 → IMCU/EMU 06-20 19:39 → SURG A 06-22 15:23 → 2NO 07-05 14:25 → IMCU/EMU 07-19 16:41
PROVIDERS: ADMIT Internal Medicine; ATTEND Internal Medicine Nephrology
PROC: 30233N1 Transfusion of Nonautologous Red Blood Cells into Peripheral Vein, Percutaneous Approach (ICD-10-PCS; 2020-06-05)
PROC: 5A09357 Assistance with Respiratory Ventilation, Less than 24 Consecutive Hours, Continuous Positive Airway Pressure (ICD-10-PCS; 2020-06-10)
PROC: 0T9B70Z Drainage of Bladder with Drainage Device, Via Natural or Artificial Opening (ICD-10-PCS; 2020-06-10)
PROC: 02HV33Z Insertion of Infusion Device into Superior Vena Cava, Percutaneous Approach (ICD-10-PCS; 2020-06-20)
PROC: B518ZZA Fluoroscopy of Superior Vena Cava, Guidance (ICD-10-PCS; 2020-06-20)
PROC: 02HV33Z Insertion of Infusion Device into Superior Vena Cava, Percutaneous Approach (ICD-10-PCS; 2020-07-05)
PROC: B548ZZA Ultrasonography of Superior Vena Cava, Guidance (ICD-10-PCS; 2020-07-05)
PROC: B518ZZA Fluoroscopy of Superior Vena Cava, Guidance (ICD-10-PCS; 2020-07-05)
PROC: 02HV33Z Insertion of Infusion Device into Superior Vena Cava, Percutaneous Approach (ICD-10-PCS; 2020-07-07)
PROC: B548ZZA Ultrasonography of Superior Vena Cava, Guidance (ICD-10-PCS; 2020-07-07)
PROC: B518ZZA Fluoroscopy of Superior Vena Cava, Guidance (ICD-10-PCS; 2020-07-07)
PROC: 0DJD8ZZ Inspection of Lower Intestinal Tract, Via Natural or Artificial Opening Endoscopic (ICD-10-PCS; 2020-07-12)
PROC: 0W3P8ZZ Control Bleeding in Gastrointestinal Tract, Via Natural or Artificial Opening Endoscopic (ICD-10-PCS; 2020-07-12)
PROC: 0DB18ZX Excision of Upper Esophagus, Via Natural or Artificial Opening Endoscopic, Diagnostic (ICD-10-PCS; 2020-07-12)
PROC: 3E033XZ Introduction of Vasopressor into Peripheral Vein, Percutaneous Approach (ICD-10-PCS; 2020-07-14)
PROC: 02HV33Z Insertion of Infusion Device into Superior Vena Cava, Percutaneous Approach (ICD-10-PCS; 2020-07-24)
PROC: B548ZZA Ultrasonography of Superior Vena Cava, Guidance (ICD-10-PCS; 2020-07-24)
PROC: 5A1D70Z Performance of Urinary Filtration, Intermittent, Less than 6 Hours Per Day (ICD-10-PCS; 2020-07-25)
PROC: 031C0ZF Bypass Left Radial Artery to Lower Arm Vein, Open Approach (ICD-10-PCS; 2020-07-29)
PROC: 0JH63XZ Insertion of Tunneled Vascular Access Device into Chest Subcutaneous Tissue and Fascia, Percutaneous Approach (ICD-10-PCS; 2020-07-29)
PROC: 02HV33Z Insertion of Infusion Device into Superior Vena Cava, Percutaneous Approach (ICD-10-PCS; 2020-07-29)
PROC: B518ZZA Fluoroscopy of Superior Vena Cava, Guidance (ICD-10-PCS; 2020-07-29)
PROC: B548ZZA Ultrasonography of Superior Vena Cava, Guidance (ICD-10-PCS; 2020-07-29)
PROC: 0SRB01A Replacement of Left Hip Joint with Metal Synthetic Substitute, Uncemented, Open Approach (ICD-10-PCS; principal; 2020-08-03)
PROC: 0SPB0JZ Removal of Synthetic Substitute from Left Hip Joint, Open Approach (ICD-10-PCS; 2020-08-03)
DX: T84.52XA Infection and inflammatory reaction due to internal left hip prosthesis, initial encounter (principal); K31.811 Angiodysplasia of stomach and duodenum with bleeding; N18.6 End stage renal disease; I50.33 Acute on chronic diastolic (congestive) heart failure; S32.492A Other specified fracture of left acetabulum, initial encounter for closed fracture; J96.21 Acute and chronic respiratory failure with hypoxia; N17.9 Acute kidney failure, unspecified; D62 Acute posthemorrhagic anemia; J44.1 Chronic obstructive pulmonary disease with (acute) exacerbation; I13.2 Hypertensive heart and chronic kidney disease with heart failure and with stage 5 chronic kidney disease, or end stage renal disease; B37.81 Candidal esophagitis; T84.021A Dislocation of internal left hip prosthesis, initial encounter; Z20.828 Contact with and (suspected) exposure to other viral communicable diseases; K64.8 Other hemorrhoids; K63.5 Polyp of colon; K57.30 Diverticulosis of large intestine without perforation or abscess without bleeding; N40.0 Benign prostatic hyperplasia without lower urinary tract symptoms; G47.33 Obstructive sleep apnea (adult) (pediatric); Z86.14 Personal history of Methicillin resistant Staphylococcus aureus infection; I50.810 Right heart failure, unspecified; Y83.1 Surgical operation with implant of artificial internal device as the cause of abnormal reaction of the patient, or of later complication, without mention of misadventure at the time of the procedure; I25.10 Atherosclerotic heart disease of native coronary artery without angina pectoris; I27.20 Pulmonary hypertension, unspecified; I48.0 Paroxysmal atrial fibrillation; B96.89 Other specified bacterial agents as the cause of diseases classified elsewhere; X58.XXXA Exposure to other specified factors, initial encounter; E55.9 Vitamin D deficiency, unspecified; T36.8X5A Adverse effect of other systemic antibiotics, initial encounter; L27.0 Generalized skin eruption due to drugs and medicaments taken internally; D63.1 Anemia in chronic kidney disease; K59.00 Constipation, unspecified; E87.6 Hypokalemia; Z79.899 Other long term (current) drug therapy; Z79.82 Long term (current) use of aspirin; Z99.81 Dependence on supplemental oxygen; Z87.891 Personal history of nicotine dependence
CPT/HCPCS: 36415; 36416; 36430; 36569; 36584; 36600; 51701; 71045; 74176; 76770; 76870; 80048; 80053; 80202; 81003; 81015; 82274; 82306; 82550; 82553; 82565; 82728; 82805; 83540; 83550; 83735; 83880; 84100; 84146; 84443; 84484; 85025; 85027; 85046; 85610; 85652; 85730; 86140; 86704; 86706; 86803; 86850; 86870; 86880; 86900; 86901; 86922; 87040; 87070; 87077; 87086; 87186; 87205; 87340; 87635; 88305; 88312; 88313; 90935; 93005; 93010; 93306; 93970; 93976; 94640; 94660; 96374; 96375; 96376; 97139; C1713; C1751; C1752; C1776; G0257; J0282; J0696; J0878; J1200; J1250; J1644; J1650; J1720; J1815; J1940; J2001; J2185; J2250; J2260; J2270; J2370; J2405; J2543; J2704; J2720; J2916; J2920; J2930; J2997; J3010; J3260; J3370; J3475; J3490; J7030; J7050; J7070; J7512; J7611; J7620; J7626; P9016; P9047; Q0163; Q0177; U0003

== ENCOUNTER 2020-08-23 10:03 | Inpatient (IN) | payer MEDICARE, BC ==
--- NOTE | 2020-08-23 12:06 | PDOC.FPRHP ---
- History of Present Illness Chief Complaint: Shortness of Breath History of Present Illness: Patient is an 79 yo M with PMHx of COPD-on 4L NC, HFrEF-followed by Dr. Fowler, who presented to [facility] ED 2/2 SOB and hypoxia. Per report, at rehab hospital, patient had an O2 sat reading of 50% with decreased responsiveness. Patient was taken to [facility] ED where he was placed on BiPAP which resolved the patient's hypoxia. Patient was transferred to [facility], placed on HFNC and O2 sats are 100%. Patient reports that he has been coming off his nightly CPAP the past few nights and then falls asleep with only NC on. ED Course: Patient went to [facility] ED, O2 saturation was 85% on home 4L NC, placed on BiPAP O2 saturation 100%, given 1 duoneb. Placed on HFNC in [facility] ED @60L, 70% O2, O2 sats of 100%. - Allergies/Adverse Reactions Allergies Allergy/AdvReac Type Severity Reaction Status Date / Time adhesive AdvReac Verified 04/28/20 13:42 - Home Medications Medication Instructions Recorded Confirmed Type Gabapentin 100 mg PO BID 06/04/19 08/23/20 History predniSONE 10 mg PO QAM 06/04/19 08/23/20 History Fluticasone Propionate [Flonase 1 spray EA NARE DAILY 10/01/19 08/23/20 History Nasal Marvell] Sennosides/Docusate Sodium 2 tab PO BID tab 02/17/20 08/23/20 Rx [Senokot S] Atorvastatin Calcium [Lipitor] 20 mg PO HS 05/19/20 08/23/20 History Multivitamin [Multivitamins] 1 tab PO DAILY 05/19/20 08/23/20 History Pantoprazole [Protonix] 40 mg PO BID 05/19/20 08/23/20 History Ipratropium/Albuterol Sulfate 3 ml NEB P4SY-AM neb 06/29/20 08/23/20 Rx [DuoNeb] hydrOXYzine Pamoate [Vistaril] 25 mg PO Q4H PRN cap 06/29/20 08/23/20 Rx Acetaminophen 650 mg PO Q4HR PRN MDD 4000 08/05/20 08/23/20 History Aluminum & Magnesium Hydroxide 30 ml PO Q6HR PRN 08/05/20 08/23/20 History [Maalox] Amiodarone [Cordarone] 200 mg PO DAILY 08/05/20 08/23/20 History Bisacodyl [Dulcolax] 10 mg WA DAILY PRN 08/05/20 08/23/20 History Cholecalciferol (Vitamin D3) 1,000 unit PO DAILY 08/05/20 08/23/20 History [Vitamin D3] Glucagon,Human Recombinant 1 mg IM ONE PRN 08/05/20 08/05/20 History [Glucagen] Guaifenesin DM 100-10 [Robitussin 15 ml PO Q4HR PRN 08/05/20 08/23/20 History DM] Levofloxacin [Levaquin] 250 mg PO DAILY 08/05/20 08/05/20 History Magnesium Oxide [Mag-Oxide] 400 mg PO DAILY 08/05/20 08/23/20 History Mometasone/Formoterol 200/5 2 puff INH BID 08/05/20 08/23/20 History [Dulera 200 mcg/5 mcg Inhaler] Nystatin [Nystatin Powder] 1 applic TOP BID 08/05/20 08/23/20 History Ondansetron HCl/PF [Ondansetron 4 mg IVP Q6HR PRN 08/05/20 08/05/20 History HCl 4 mg/2 ml Syr] Pregabalin [Lyrica] 25 mg PO DAILY 08/05/20 08/23/20 History Sildenafil Citrate [Revatio] 5 mg PO Q8HR 08/05/20 08/23/20 History Sucralfate [Carafate] 1 gm PO AC 08/05/20 08/23/20 History Sulfamethoxazole/Trimethoprim 0.5 tab PO MWF 08/05/20 08/23/20 History [Bactrim SS] Tamsulosin HCl [Flomax] 0.4 mg PO HS 08/05/20 08/23/20 History Zolpidem Tartrate [Ambien] 5 mg PO HS PRN 08/05/20 08/23/20 History diphenhydrAMINE [Benadryl] 25 mg PO Q6HR PRN 08/05/20 08/23/20 History guaiFENesin ER [Mucinex] 600 mg PO Q12HR 08/05/20 08/23/20 History - History PMHx: COPD (end stage), chronic hypoxemic respiratory failure, chronic diastolic CHF, BPH, A Fib, Anemia requiring previous blood transfusion, Depression, Anx iety, ESRD on HD TTS, Hx L hip fx s/p surgery PSHx: Watchman, ANNMAARIA, Skin cyst excision, Multiple L hip surgeries FHx: noncontributory Social: Quit smoking less than 10 yrs ago, denies Etoh and recreational drug use - Review of Systems General: denies: fever/chills, weight/appetite/sleep changes Eyes: denies: eye pain, vision changes ENT: denies: nasal congestion, rhinorrhea Respiratory: reports: shortness of breath. denies: cough Cardiovascular: reports: edema. denies: chest pain Gastrointestinal: denies: nausea, vomiting, diarrhea Genitourinary: denies: incontinence, dysuria Skin: denies: rashes, jaundice Musculoskeletal: reports: swelling. denies: tenderness Neurological: denies: syncope, seizure Psychological: reports: anxiety, depression - Vital signs BP: [118/60] HR: [82] RR: [16] Tmax: [98.8] Pox: [99]% on [HFNC] Wt: [92kg] - Physical Exam Constitutional: NAD, awake, alert and oriented HEENT: MMM, other (poor dentition) Neck: supple, FROM Heart: RRR, normal S1/S2, other (2+ pitting edema BLE) -Lungs: wheezing throughout all lung zhou Musculoskeletal: normal structure, ROM grossly normal Neurological: no focal deficit, normal sensation Skin: good turgor, no jaundice Heme/Lymphatic: no unusual bruising or bleeding, no purpura Psychiatric: normal mood and affect, intact recent and remote memory FMR H&P: Results - EKG Interpretation EKpm, pr 188, qtc 488, NSR, left axis deviation, RBBB - Radiology Interpretation Chest x-ray Status: report reviewed by me (Stable chronic lung parenchymal changes) FMR H&P: A/P - Problem List (1) ESRD (end stage renal disease) on dialysis Current Visit: Yes Status: Acute Code(s): N18.6 - END STAGE RENAL DISEASE; Z99.2 - DEPENDENCE ON RENAL DIALYSIS (2) Acute and chronic respiratory failure with hypoxia Current Visit: No Status: Acute Code(s): J96.21 - ACUTE AND CHRONIC RESPIRATORY FAILURE WITH HYPOXIA (3) Acute on chronic diastolic (congestive) heart failure Current Visit: No Status: Acute Code(s): I50.33 - ACUTE ON CHRONIC DIASTOLIC (CONGESTIVE) HEART FAILURE (4) COPD exacerbation Current Visit: No Status: Acute Code(s): J44.1 - CHRONIC OBSTRUCTIVE PULMONARY DISEASE W (ACUTE) EXACERBATION (5) Anemia, normocytic normochromic Current Visit: No Status: Chronic Code(s): D64.9 - ANEMIA, UNSPECIFIED (6) Anxiety and depression Current Visit: No Status: Chronic Code(s): F41.9 - ANXIETY DISORDER, UNSPECIFIED; F32.9 - MAJOR DEPRESSIVE DISORDER, SINGLE EPISODE, UNSPECIFIED (7) Atrial fibrillation Current Visit: No Status: Chronic Code(s): I48.91 - UNSPECIFIED ATRIAL FIBRILLATION Qualifiers: Comment: (8) BPH (benign prostatic hyperplasia) Current Visit: No Status: Chronic Code(s): N40.0 - BENIGN PROSTATIC HYPERPLASIA WITHOUT LOWER URINRY TRACT SYMP Qualifiers: - Plan Acute hypoxic respiratory failure likely 2/2 COPD exacerbation - Requires home O2 4LNC, new O2 requirement with HFNC, on Prednisone 10 mg QD - Start 40 mg Methylprednisolone Q6h - Doxycycline 100 mg BID - Duonebs Q6h chris, Q4h PRN COVID + - Steroid as above - Monitor inflammatory labs, DVT ppx - Droplet/airborn precautions End Stage COPD - Pulmonology consulted - Continue home medications ESRD on HD TTS - Nephrology consulted - Monitor electrolytes - HD today HFpEF - Monitor fluid status - EF 55-60% in 05/2020 Hx of A fib - Continue home amiodarone Pulmonary HTN - Continue home sildenafil BPH - Aware, continue home meds as appropriate DVT ppx: Heparin TID Diet: Heart Healthy GI PPX: Protonix BID Code status: DNI PCP: Marcel Dispo: Admit to [facility], expected LOS > 48 hrs FMR H&P: Upper Level - Pertinent history Patient is an 79M with PMHx of end-stage COPD, HFpEF, afib that presents as a transfer from [facility] due to hypoxia. Reportedly the patient was found in his room at rehab this morning satting in the 50s. Reportedly was satting mid-80s on 4L NC O2 at [facility] ED. Was given duonebs and transferred to [facility]. Per patient he has started to feel some dyspnea since this past Saturday/Saturday morning. Denies fever, cough, n/v/d. Denies known COVID exposure. States that for the last 3 nights he has been waking up in the life skills instructor wanting a snack, and would eat a snack and then put NC back on instead of his CPAP that he uses at night. Last night he reports he used his CPAP and felt better this morning than he had the last [address] Hollis, Dr. Weinberg (his process safety manager) agreed to do bedside dialysis today. Dr. Shipman is his sugar boiler. Dr. Fowler see's him for HFpEF. Dr. Gonzalez is his erco machine operator. Dr. eWinberg is his process safety manager. - Pertinent findings Patient satting 99% on HFNC, not in any respiratory distress. CBC this morning demonstrated elevated WBC without left shift. Indeterminate trop, 0.037. BNP elevated at 930.5. Anemia, which appears chronic, with H/H 7.9/24.6. CXR demonstrates chronic changes, stable x-ray. Rapid COVID positive. - Plan Patient is an 79M with PMHx of end-stage COPD, HFpEF, afib, chronic anemia, ESRD on HD that is admitted for: #Acute hypoxic respiratory failure likely 2/2 combination of acute on chronic COPD exacerbation, acute on chronic HFpEF exacerbation, and COVID PNA -CXR demonstrates stable findings -BNP elevated at 930.5 -Dr. Hollis consulted from the ED, per nursing plan to have bedside HD -patient on 4L O2NC at baseline, is requiring more oxygen to maintain adequate oxygenation; stable on HFNC currently -Plan for HD to assist with acute on chronic HFpEF exacerbation -Patient on 10mg prednisone qd chronically; will start 6mg decadron qd for stress-dose steroids in the setting of COVID pna -will order convalescent plasma -Will start doxycycline for COPD exacerbation -Pulmonology consulted, appreciate recs; consider remdesivir -COVID labs pending #ESRD on HD -Dr. Hollis consulted from ED, plans for bedside dialysis #HFpEF exacerbation -elevated BNP, possibly exacerbation -patient to receive HD -Dr. Fowler is his HF physician #Afib -continue home meds -patient in NSR #Chronic Anemia -hgb 7.9, appears to be near baseline -will continue to monitor #Pulmonary HTN -continue home sildenafil DVTppx: Heparin TID Diet: HH, Renal high protein Dispo: Admission to telemetry for continued bedside dialysis; monitoring of respiratory status on HFNC, pumonology consulted, appreciate recs PCP: Dr. Mary Code: DNI-Cardiac only Date/Time: 08/23/20 1206 I, [Christine Marrufo MD], have evaluated this patient and agree with findings/plan as outlined by internet media planner resident. Pertinent changes/additions are listed here. Addendum - Attending - Attending Attestation Date/Time: 08/23/20 9996 I personally evaluated the patient and discussed the management with Dr. Marrufo I agree with the History, Examination, Assessment and Plan documented above with any addition or exceptions noted below - 79M with PMHx of end-stage COPD, HFpEF, afib that presents as a transfer from [facility] due to hypoxia. Reportedly the patient was found in his room at [facility] after prolonged hospitalization, this morning satting in the 50s. Reportedly was satting mid-80s on 4L NC O2 at [facility]. Was given duonebs and transferred to [facility]. Per patient he has started to feel some dyspnea since this past Saturday/Saturday morning. Denies fever, cough, n/v/d. Denies known COVID exposure. States that for the last 3 nights he has been waking up in the life skills instructor wanting a snack, and would eat a snack and then put NC back on instead of his CPAP that he uses at night. Last night he reports he used his CPAP and felt better this morning than he had the last 2 days. PMH/PSH/Meds/SH reviewed and agree with resident's documentation. Afebrile VSS Exam repeated by me and agree with resident's findings. Labs: WBC=11.1, H/H=7.9/24.6, Gbq=283, Rh=540, K=6.0, Cl=96, CO2=24, BUN/Cr= 85/4.9, Gluc=76, NYJ=461, Rapid COVID (+); CXR- chronic changes; no acute findings. A/P: 1) ACute hypoxic resp failure secondary to COVID - initially on HFNC but now weaned to nasal canula. Will monitor resp status closely. Will start convalescent plasma. 2) End stage COPD- continue inhalers, O2, and steroids, Will consult pulmonary. 3) ESRD on HD- Nephrology contacted and will make arrangements for HD. 4) Severe deconditioning- continue PT while here.
[2020-08-23 13:11] LABS: SARS-CoV-2 NAA Rapid Test DETECTED (NotDetected)
[2020-08-23] MEDS ORDERED: Heparin 10,000 UNITS/ 10 ML VIAL ONE (13:32)
--- NOTE | 2020-08-23 14:11 | CON ---
DATE OF CONSULTATION: REASON FOR CONSULTATION: Stage 6 chronic kidney disease for maintenance hemodialysis. HISTORY OF PRESENT ILLNESS: This is an 79-year-old gentleman, on dialysis on Saturday, , and Saturday, presented to the hospital with COVID-like symptoms and hypoxia, and I was consulted for dialysis. The patient denies any nausea, vomiting, or chest pain. PAST MEDICAL HISTORY: COPD, end stage; hypertension; congestive heart failure; atrial fibrillation; transfusion; anemia; hip fracture; chronic debility; history of TEEs, skin cyst surgery. SOCIAL HISTORY: No alcohol or drug use. FAMILY HISTORY: Negative for ESRD. ALLERGIES: REVIEWED. HOME MEDICATIONS: List reviewed. REVIEW OF SYSTEMS: A 15-point review of systems was performed, negative except for positives noted above. HEENT: Eyes intact, no diplopia. Ears: No hearing loss or earache. Nose: No discharge or bleeding. CHEST: No cough or phlegm. ABDOMEN: No nausea or vomiting. GENITOURINARY: No hematuria. No De catheter. MUSCULOSKELETAL: No low back pain. No joint swelling or pain. NEUROLOGICAL: No syncope. No seizures. SKIN: No complaints of rash or itching. PSYCHIATRIC: No depression. CONSTITUTIONAL: No weight loss or loss of appetite. PHYSICAL EXAMINATION: GENERAL: The patient is awake and alert. VITAL SIGNS: Afebrile, pulse 85, breathing at 16, blood pressure 100/70. HEENT: Head normocephalic and atraumatic. Eyes intact, no ulcers. Nose intact, no ulcers. Ears intact, no ulcers. Neck: Supple. No JVD. Chest: Symmetrical and clear. Cardiovascular: Shows S1 and S2, no rub, no murmur. Gastrointestinal: Abdomen is soft, bowel sounds positive. Extremities: Show no edema or ulcers. Skin: Shows no rash or petechiae. Musculoskeletal: Shows no joint swelling or stiffness. Genitourinary: Shows no De or CVA tenderness. Neurologic: Motor intact. Cranial nerves intact. LABORATORY DATA: Reviewed. ASSESSMENT AND PLAN: 1. Stage 6 chronic kidney disease. Plan dialysis. 2. Hypoxia. Plan dialysis. 3. Anemia. Stable. 4. COVID-19 positive. Overall prognosis is poor. Job ID: [id number]
[2020-08-23 16:05] LABS: Troponin I 0.049 ng/mL (< 0.028)
[2020-08-23] MEDS ORDERED: Bisacodyl 10 MG SUPP PR PRN ×2 (16:45→23:50)
[2020-08-23] MEDS ORDERED: hydrOXYzine Pamoate 25 mg Capsule PO PRN (16:45)
[2020-08-23] MEDS ORDERED: Mag-Al 1200 mg/1200 mg/30 ML UDCUP PO PRN (16:45)
[2020-08-23] MEDS ORDERED: Dextrose 50% Abboject 50 ML SYRINGE SLOW IVP PRN (17:05)
[2020-08-23] MEDS ORDERED: Dextrose 5% in Water 1,000 ML IV PRN (17:05)
[2020-08-23 19:06] LABS: Troponin I 0.052 ng/mL (< 0.028)
[2020-08-23] MEDS ORDERED: Acetaminophen 325 MG TAB ONE (19:27)
[2020-08-23] MEDS: Acetaminophen 325 MG TAB PO PRN ×2 (19:34→22:29)
[2020-08-23] MEDS ORDERED: Senokot S 8.6-50 MG TAB PO SCH (21:00)
[2020-08-23] MEDS: methylPREDNISolone Sod Succ 40 MG VIAL IVP SCH (22:09)
[2020-08-23] MEDS: Atorvastatin Calcium 20 MG TAB PO SCH (22:10)
[2020-08-23] MEDS: Gabapentin 100 MG CAP PO SCH (22:10)
[2020-08-23] MEDS: guaiFENesin ER 600 MG TAB PO SCH (22:11)
[2020-08-23] MEDS: Sildenafil Citrate 20 MG TAB PO SCH (22:11)
[2020-08-23] MEDS: Tamsulosin HCl 0.4 MG CAP PO SCH (22:11)
[2020-08-23] MEDS: Nystatin Powder 15 GM BOT TOP SCH (22:13)
[2020-08-23] MEDS ORDERED: Heparin 5,000 UNITS/ML VIAL SC SCH (23:45)
[2020-08-23] MEDS ORDERED: Doxycycline 100 MG CAP PO SCH (23:45)
[2020-08-23] MEDS ORDERED: Ondansetron ODT 4 MG TAB PO PRN (23:50)
[2020-08-23] MEDS ORDERED: Bisacodyl 5 MG TAB PO PRN (23:50)
[2020-08-23] MEDS ORDERED: Ondansetron PF 4 MG/2 ML Vial IVP PRN (23:50)
[2020-08-23] MEDS ORDERED: Senokot S 8.6-50 MG TAB PO PRN (23:50)
[2020-08-23] MEDS ORDERED: Calcium Carbonate 500 MG ChewTAB PO PRN (23:50)
[2020-08-24] MEDS: Mometasone 200 MCG/Formoterol 5 MCG 120 PUFF INHALER INH SCH ×3 (01:07→18:58)
[2020-08-24] MEDS: Albuterol 200 PUFF (6.7GM INHALER) INH SCH ×7 (01:08→20:10)
[2020-08-24] MEDS: Zolpidem Tartrate 5 MG TAB PO PRN (01:15)
[2020-08-24 05:37] LABS: #Lymphocytes 0.4 thou/uL (1.20-3.40); #Monocytes 0.2 thou/uL (0.11-0.59); #Neutrophils 5.4 thou/uL (1.40-6.50); %Eosinophils 0.6 % (0.0-10.0); %Lymphocytes 7.2 % (21.0-51.0); %Monocytes 2.9 % (0.0-10.0); %Neutrophils 89.2 % (42.0-75.0); Hemoglobin 6.8 g/dL (14.0-18.0); Mean Corpuscular Hemoglobin 29.9 pg (27.0-31.0); Mean Corpuscular Volume 93.2 fL (78.0-98.0); Mean Platelet Volume 7.8 fL (7.4-10.4); Platelet Count 212 thou/uL (130-400); RBC Distribution Width 15.9 % (11.5-14.5); Red Blood Cell (RBC) Count 2.28 mill/uL (4.70-6.10); White Blood Cell (WBC) Count 6.1 thou/uL (4.8-10.8)
[2020-08-24 06:03] LABS: ALT (SGPT) 41 U/L (8-55); AST (SGOT) 35 U/L (5-34); Albumin 2.9 g/dL (3.4-4.8); Alkaline Phosphatase 117 U/L (40-110); Anion Gap 15 mmol/L (10-20); BUN (Urea Nitrogen) 52 mg/dL (8.4-25.7); Bilirubin, Total 0.5 mg/dL (0.2-1.2); Calc. Creatinine Clearance 23 mL/min (70-130); Calcium 7.9 mg/dL (7.8-10.44); Carbon Dioxide 30 mmol/L (23-31); Chloride 94 mmol/L (98-107); Estimated GFR-MDRD 19; Globulin 2.1 g/dL (2.4-3.5); Glucose 106 mg/dL (83-110); Potassium 4.7 mmol/L (3.5-5.1); Sodium 134 mmol/L (136-145)
[2020-08-24] MEDS: Sildenafil Citrate 20 MG TAB PO SCH ×3 (06:20→20:09)
--- NOTE | 2020-08-24 07:00 | PDOC.FM ---
- Subjective Subjective: Patient doing well this morning; denies dyspnea or cough, denies fever, n/v/d. States nursing has not been able to find many of his belongings that his brought to the hospital for him yesterday including his hearing aid finance analyst, phone finance analyst, and his glasses. - Objective Vital Signs & Weight: Vital Signs (12 hours) Temp Pulse Pulse Resp BP BP Pulse Ox 08/24/20 03:50 98.6 F 86 24 H 104/52 L 100 08/24/20 00:10 98.4 F 95 20 97/54 L 08/23/20 23:50 91 L 08/23/20 23:29 98.6 F 99 20 118/57 L 08/23/20 23:09 98.6 F 100 20 122/56 L 08/23/20 20:15 98.2 F 93 20 100/53 L 91 L Weight Weight 86.183 kg I&O: 08/22/20 08/23/20 08/24/20 06:59 06:59 06:59 Intake Total 280 Balance 280 Result Diagrams: 08/24/20 04:28 08/24/20 04:28 Phys Exam - Physical Examination Constitutional: NAD HEENT: moist MMs, sclera anicteric Neck: supple, full ROM wheezing CHRIS Cardiovascular: RRR, no significant murmur Gastrointestinal: soft, no distention 1+ pitting edema BLE Neurological: non-focal, moves all 4 limbs Psychiatric: normal affect Skin: no rash Dx/Plan (1) ESRD (end stage renal disease) on dialysis Code(s): N18.6 - END STAGE RENAL DISEASE; Z99.2 - DEPENDENCE ON RENAL DIALYSIS Status: Acute (2) Acute and chronic respiratory failure with hypoxia Code(s): J96.21 - ACUTE AND CHRONIC RESPIRATORY FAILURE WITH HYPOXIA Status: Acute (3) Acute on chronic diastolic (congestive) heart failure Code(s): I50.33 - ACUTE ON CHRONIC DIASTOLIC (CONGESTIVE) HEART FAILURE Status: Acute (4) COPD exacerbation Code(s): J44.1 - CHRONIC OBSTRUCTIVE PULMONARY DISEASE W (ACUTE) EXACERBATION Status: Acute (5) Anemia, normocytic normochromic Code(s): D64.9 - ANEMIA, UNSPECIFIED Status: Chronic (6) Anxiety and depression Code(s): F41.9 - ANXIETY DISORDER, UNSPECIFIED; F32.9 - MAJOR DEPRESSIVE DISORDER, SINGLE EPISODE, UNSPECIFIED Status: Chronic (7) Atrial fibrillation Code(s): I48.91 - UNSPECIFIED ATRIAL FIBRILLATION Status: Chronic Qualifiers: (8) BPH (benign prostatic hyperplasia) Code(s): N40.0 - BENIGN PROSTATIC HYPERPLASIA WITHOUT LOWER URINRY TRACT SYMP Status: Chronic Qualifiers: - Plan Plan: #Acute hypoxic respiratory failure likely 2/2 combination of acute on chronic COPD exacerbation, acute on chronic HFpEF exacerbation, and COVID PNA -CXR demonstrates stable findings -BNP elevated at 930.5 -Dr. Weinberg consulted from the ED, bedside HD 08/23, to be repeated today; continue per nephrology recs -patient on 4L O2NC at baseline, is requiring more oxygen to maintain adequate oxygenation; stable on 6L NC -Patient on 10mg prednisone qd chronically; continue 40mg methylprednisolone BID for stress-dose steroids in the setting of COVID pna -s/p convalescent plasma 08/24 -Doxycycline BID -Pulmonology consulted, appreciate recs; not a candidate for remdesivir 2/2 ESRD -COVID labs elevated #Indeterminate Troponin -patient is an ESRD patient, has had elevated levels throughout the past several months -trop x 3 remained indeterminate without becoming positive #ESRD on HD -Dr. Weinberg consulted from ED, HD 08/23, will repeat today #HFpEF exacerbation -elevated BNP, possibly exacerbation -patient had HD yesterday and will have HD again today -Dr. Fowler is his HF physician #Afib -continue home meds -patient in NSR #Chronic Anemia -hgb 6.8; will give 2u pRBC with HD per Dr. Weinberg -will continue to monitor #Pulmonary HTN -continue home sildenafil #Deconditioning -patient to work with PT/OT DVTppx: Heparin TID Diet: HH, Renal high protein Dispo: Admission to telemetry for continued bedside dialysis; monitoring of respiratory status on 6L NC, pumonology consulted, appreciate recs PCP: Dr. Mary Code: DNI-Cardiac only Addendum - Attending - Attending Attestation Date/Time: 08/24/20 8054 I personally evaluated the patient and discussed the management with Dr. Marrufo I agree with the History, Examination, Assessment and Plan documented above with any addition or exceptions noted below - Patient feeling better. Decreased SOB. Afebrile VSS. A/P: 1) Acute hypoxic resp failure secondary to COVID pneumonia- doing well on 6L NC. Wean as tolerated. Received convalescent plasma. Not a candidate for remdesivir due to ESRD on HD. Continue dulera and steroids. Appreciate pulmonary recommendations. 2) ESRD on HD- continue treatment, 3) Deconditioning- continue PT
[2020-08-24] MEDS ORDERED: Heparin 10,000 UNITS/ 10 ML VIAL ONE (10:18)
[2020-08-24] MEDS: Pregabalin 25 MG CAP PO SCH (10:57)
[2020-08-24] MEDS: Sulfameth/Trimethoprim SS 400-80MG TAB PO SCH (10:58)
[2020-08-24] MEDS: Fluticasone Propionate Nasal Spray 16 gm Bottle NASAL SCH (10:58)
[2020-08-24] MEDS: Heparin 5,000 UNITS/ML VIAL SC SCH ×3 (10:59→20:07)
[2020-08-24] MEDS: Gabapentin 100 MG CAP PO SCH ×2 (11:00→20:06)
[2020-08-24] MEDS: Multivitamin W/ Minerals 1 TAB PO SCH (11:00)
[2020-08-24] MEDS: Magnesium Oxide 400 MG TAB PO SCH (11:00)
[2020-08-24] MEDS: guaiFENesin ER 600 MG TAB PO SCH ×2 (11:00→20:07)
[2020-08-24] MEDS: Doxycycline 100 MG CAP PO SCH ×2 (11:00→20:06)
[2020-08-24] MEDS: Amiodarone 200 MG TAB PO SCH (11:00)
[2020-08-24] MEDS: Cholecalciferol 1,000 UNITS (25 MCG) TAB PO SCH (11:01)
[2020-08-24] MEDS: Nystatin Powder 15 GM BOT TOP SCH ×2 (11:02→21:05)
[2020-08-24] MEDS: methylPREDNISolone Sod Succ 40 MG VIAL IVP SCH ×2 (11:02→20:08)
--- NOTE | 2020-08-24 12:12 | PRG ---
DATE OF SERVICE: SUBJECTIVE: An 79-year-old gentleman being seen for end-stage renal disease. The patient denied nausea, vomiting, or chest pain. PHYSICAL EXAMINATION: General: The patient is awake and alert. Vital Signs: Afebrile, pulse 95, breathing at 16, blood pressure 119/58. HEENT: Head normocephalic and atraumatic. Eyes intact, no ulcers. Nose intact, no ulcers. Ears intact, no ulcers. Neck: Supple. No JVD. Chest: Symmetrical and clear. Cardiovascular: Shows S1 and S2, no rub, no murmur. Gastrointestinal: Abdomen is soft, bowel sounds positive. Extremities: Show no edema or ulcers. Skin: Shows no rash or petechiae. Musculoskeletal: Shows no joint swelling or stiffness. Genitourinary: Shows no De or CVA tenderness. Neurologic: Motor intact. Cranial nerves intact. LABORATORY DATA: Labs show hemoglobin 6.8. ASSESSMENT AND PLAN: 1. Stage 6 chronic kidney disease, plan dialysis. 2. Anemia, plan transfusion. 3. Hypertension, stable. 4. Medication based on GFR appropriate. Job ID: [id number]
[2020-08-24] MEDS: Atorvastatin Calcium 20 MG TAB PO SCH (20:06)
[2020-08-24] MEDS: Tamsulosin HCl 0.4 MG CAP PO SCH (20:08)
[2020-08-25] MEDS: Albuterol 200 PUFF (6.7GM INHALER) INH SCH ×6 (02:57→20:36)
[2020-08-25 05:09] LABS: #Lymphocytes 0.6 thou/uL (1.20-3.40); #Monocytes 0.3 thou/uL (0.11-0.59); #Neutrophils 2.9 thou/uL (1.40-6.50); %Basophils 0.1 % (0.0-1.0); %Eosinophils 0.5 % (0.0-10.0); %Lymphocytes 16.1 % (21.0-51.0); %Monocytes 8.1 % (0.0-10.0); %Neutrophils 75.2 % (42.0-75.0); Hemoglobin 8.4 g/dL (14.0-18.0); Mean Corpuscular HGB CONC 32.6 g/dL (32.0-36.0); Mean Corpuscular Hemoglobin 29.8 pg (27.0-31.0); Mean Corpuscular Volume 91.3 fL (78.0-98.0); Mean Platelet Volume 7.6 fL (7.4-10.4); Platelet Count 208 thou/uL (130-400); RBC Distribution Width 16.1 % (11.5-14.5); Red Blood Cell (RBC) Count 2.84 mill/uL (4.70-6.10); White Blood Cell (WBC) Count 3.9 thou/uL (4.8-10.8)
[2020-08-25 05:31] LABS: ALT (SGPT) 45 U/L (8-55); AST (SGOT) 40 U/L (5-34); Albumin 2.8 g/dL (3.4-4.8); Alkaline Phosphatase 130 U/L (40-110); Anion Gap 14 mmol/L (10-20); BUN (Urea Nitrogen) 58 mg/dL (8.4-25.7); Bilirubin, Total 0.6 mg/dL (0.2-1.2); Calc. Creatinine Clearance 22 mL/min (70-130); Calcium 7.9 mg/dL (7.8-10.44); Carbon Dioxide 28 mmol/L (23-31); Chloride 97 mmol/L (98-107); Estimated GFR-MDRD 19; Globulin 2.1 g/dL (2.4-3.5); Glucose 161 mg/dL (83-110); Potassium 4.3 mmol/L (3.5-5.1); Protein, Total 4.9 g/dL (5.8-8.1); Sodium 135 mmol/L (136-145)
[2020-08-25] MEDS: Sildenafil Citrate 20 MG TAB PO SCH ×3 (05:52→19:30)
[2020-08-25] MEDS: Mometasone 200 MCG/Formoterol 5 MCG 120 PUFF INHALER INH SCH ×2 (05:54→18:18)
--- NOTE | 2020-08-25 06:23 | PDOC.FM ---
- Subjective Subjective: Patient doing well this morning. Denies dyspnea, cough. Tolerated dialysis well yesterday. - Objective Vital Signs & Weight: Vital Signs (12 hours) Temp Pulse Resp BP Pulse Ox 08/25/20 05:26 93 L 08/25/20 03:03 97.7 F 78 18 117/58 L 93 L 08/25/20 00:12 83 18 95 08/24/20 20:35 98.3 F 94 16 120/61 90 L Weight Weight 86.183 kg I&O: 08/23/20 08/24/20 08/25/20 06:59 06:59 06:59 Intake Total 280 940 Balance 280 940 Result Diagrams: 08/25/20 04:49 08/25/20 04:49 Phys Exam - Physical Examination Constitutional: NAD HEENT: moist MMs, sclera anicteric Neck: supple, full ROM wheezing CHRIS Cardiovascular: RRR, no significant murmur Gastrointestinal: soft, no distention trace pitting edema BLE Neurological: non-focal, moves all 4 limbs Psychiatric: normal affect Skin: no rash Dx/Plan (1) ESRD (end stage renal disease) on dialysis Code(s): N18.6 - END STAGE RENAL DISEASE; Z99.2 - DEPENDENCE ON RENAL DIALYSIS Status: Acute (2) Acute and chronic respiratory failure with hypoxia Code(s): J96.21 - ACUTE AND CHRONIC RESPIRATORY FAILURE WITH HYPOXIA Status: Acute (3) Acute on chronic diastolic (congestive) heart failure Code(s): I50.33 - ACUTE ON CHRONIC DIASTOLIC (CONGESTIVE) HEART FAILURE Status: Acute (4) COPD exacerbation Code(s): J44.1 - CHRONIC OBSTRUCTIVE PULMONARY DISEASE W (ACUTE) EXACERBATION Status: Acute (5) Anemia, normocytic normochromic Code(s): D64.9 - ANEMIA, UNSPECIFIED Status: Chronic (6) Anxiety and depression Code(s): F41.9 - ANXIETY DISORDER, UNSPECIFIED; F32.9 - MAJOR DEPRESSIVE DISORDER, SINGLE EPISODE, UNSPECIFIED Status: Chronic (7) Atrial fibrillation Code(s): I48.91 - UNSPECIFIED ATRIAL FIBRILLATION Status: Chronic Qualifiers: (8) BPH (benign prostatic hyperplasia) Code(s): N40.0 - BENIGN PROSTATIC HYPERPLASIA WITHOUT LOWER URINRY TRACT SYMP Status: Chronic Qualifiers: - Plan Plan: #Acute hypoxic respiratory failure likely 2/2 combination of acute on chronic COPD exacerbation, acute on chronic HFpEF exacerbation, and COVID PNA -CXR demonstrates stable findings -BNP elevated at 930.5 on admission -Dr. Weinberg consulted from the ED, bedside HD 08/23, again 08/24; continue per nephrology recs -patient on 4L O2NC at baseline, was reduced from 6L>4L overnight -Patient on 10mg prednisone qd chronically; continue 40mg methylprednisolone BID for stress-dose steroids in the setting of COVID pna -s/p convalescent plasma 08/24 -Doxycycline BID -Pulmonology consulted, appreciate recs; not a candidate for remdesivir 2/2 ESRD -COVID labs elevated #Indeterminate Troponin -patient is an ESRD patient, has had elevated levels throughout the past several months -patient denies chest pain -trop x 3 remained indeterminate without becoming positive #ESRD on HD -Dr. Weinberg consulted from ED, HD 08/23, repeated 08/24 #HFpEF exacerbation -elevated BNP, possibly exacerbation -patient had HD on admission and again 08/24 -Dr. Fowler is his HF physician #Afib -continue home meds -patient in NSR #Chronic Anemia -hgb 6.8 on 08/24; 2u pRBC given with HD per Dr. Weinberg; Hgb 8.4 this am -will continue to monitor #Pulmonary HTN -continue home sildenafil #Deconditioning -patient to work with PT/OT DVTppx: Heparin TID Diet: HH, Renal high protein Dispo: Admission to telemetry for continued bedside dialysis; monitoring of respiratory status on 4-6L NC, pumonology consulted, appreciate recs PCP: Dr. Mary Code: DNI-Cardiac only Addendum - Attending - Attending Attestation Date/Time: 08/25/20 1362 I personally evaluated the patient and discussed the management with Dr. Marrufo I agree with the History, Examination, Assessment and Plan documented above with any addition or exceptions noted below - Patient feeling better. Afebrile VSS. A/P: 1) Acute resp failure secondary to COVID pneumonia - improved; O2 back to home/baseline requirement. If remains stable overnight plan to trasnfer back to [facility] bed. 2) ESRD on HD- continue maintenance HD. 3) COPD- stable.
[2020-08-25] MEDS: Heparin 5,000 UNITS/ML VIAL SC SCH ×3 (07:45→19:29)
[2020-08-25] MEDS: Multivitamin W/ Minerals 1 TAB PO SCH ×2 (07:45→07:46)
[2020-08-25] MEDS: methylPREDNISolone Sod Succ 40 MG VIAL IVP SCH ×2 (07:45→19:29)
[2020-08-25] MEDS: guaiFENesin ER 600 MG TAB PO SCH ×2 (07:46→19:29)
[2020-08-25] MEDS: Amiodarone 200 MG TAB PO SCH (07:46)
[2020-08-25] MEDS: Magnesium Oxide 400 MG TAB PO SCH (07:46)
[2020-08-25] MEDS: Gabapentin 100 MG CAP PO SCH ×2 (07:46→19:28)
[2020-08-25] MEDS: Cholecalciferol 1,000 UNITS (25 MCG) TAB PO SCH (07:46)
[2020-08-25] MEDS: Doxycycline 100 MG CAP PO SCH ×2 (07:46→19:28)
[2020-08-25] MEDS: Fluticasone Propionate Nasal Spray 16 gm Bottle NASAL SCH (07:47)
[2020-08-25] MEDS: Nystatin Powder 15 GM BOT TOP SCH ×2 (07:47→20:37)
[2020-08-25] MEDS: Pregabalin 25 MG CAP PO SCH (08:13)
--- NOTE | 2020-08-25 11:45 | CON ---
DATE OF CONSULTATION: 08/25/2020 HISTORY OF PRESENT ILLNESS: Bin Mart is an 79-year-old male with COPD, diastolic heart failure, and renal failure. He was in a rehab facility, developed shortness of breath. He has been identified as having COVID-19. He has been admitted to the hospital. PAST MEDICAL HISTORY: Remarkable for; 1. Multiple admissions for COPD exacerbations and diastolic heart failure. 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 2. He has chronic kidney disease and developed renal failure after a 2-month hospitalization earlier this year. 3. He has a history of hypertension. 4. History of atrial fibrillation. 5. History of anemia. 6. History of hip fracture requiring repair recently after a fall. 7. History of cardioversion in the past. SOCIAL HISTORY: He is not smoking or drinking. FAMILY HISTORY: Negative for lung disease in early age. MEDICATIONS: Have been reviewed. REVIEW OF SYSTEMS: Ten points otherwise negative. PHYSICAL EXAMINATION: VITAL SIGNS: He is afebrile. Heart rate 78, respiratory rate is 20, oximetry is 95 on 4 L cannula, blood pressure 119/58. HEAD AND NECK: Unremarkable. LUNGS: Clear. HEART: Regular rhythm. ABDOMEN: Soft. EXTREMITIES: Without clubbing, cyanosis, or edema. LABORATORY DATA: White count 3.9, hemoglobin 9.4, platelets 208. Sodium 135, potassium 4.3, chloride 97, bicarb 28, BUN 58, creatinine 3.2, albumin is 2.8. Chest x-ray done on the 3rd was reviewed, shows no infiltrates. IMPRESSION: COVID-19 infection with minimal if any pneumonia. Hopefully with supportive care . Unfortunately, he will need to be isolated for a couple of weeks before he can go back to some type of rehab facility. He needs a walker in his room, so he can walk in place to maintain his strength. He was nonambulatory when he left here per my discussion with Dr. Ferro. He is starting to walk. bed ridden for two weeks, we will lose all of that. This was a 50 min consult with greater than 50% of the time spent on the unit with coordination of care. Job ID: [id number] [facility]
--- NOTE | 2020-08-25 11:57 | PRG ---
DATE OF SERVICE: 08/25/2020 SUBJECTIVE: An 79-year-old gentleman, being seen for end-stage renal disease. The patient denies any nausea, vomiting, or chest pain. OBJECTIVE: General: The patient is awake and alert. Vital Signs: Afebrile, pulse 72, breathing at 16, blood pressure 120/58. HEENT: Head normocephalic and atraumatic. Eyes intact, no ulcers. Nose intact, no ulcers. Ears intact, no ulcers. Neck: Supple. No JVD. Chest: Symmetrical and clear. Cardiovascular: Shows S1 and S2, no rub, no murmur. Gastrointestinal: Abdomen is soft, bowel sounds positive. Extremities: Show no edema or ulcers. Skin: Shows no rash or petechiae. Musculoskeletal: Shows no joint swelling or stiffness. Genitourinary: Shows no De or CVA tenderness. Neurologic: Motor intact. Cranial nerves intact. LABORATORY DATA: Reviewed. ASSESSMENT AND PLAN: 1. Stage 6 chronic kidney disease, plan dialysis. 2. Hypertension, stable. 3. Anemia, stable. 4. Medication based on GFR appropriate. Job ID: [id number]
[2020-08-25] MEDS: HumaLOG 300 UNITS/3 ML VIAL SC PRN (12:12)
[2020-08-25] MEDS ORDERED: Heparin 10,000 UNITS/ 10 ML VIAL ONE (12:24)
[2020-08-25] MEDS: Atorvastatin Calcium 20 MG TAB PO SCH (19:27)
[2020-08-25] MEDS: Tamsulosin HCl 0.4 MG CAP PO SCH (19:30)
[2020-08-26] MEDS: Albuterol 200 PUFF (6.7GM INHALER) INH SCH ×6 (02:30→22:05)
[2020-08-26] MEDS: Sildenafil Citrate 20 MG TAB PO SCH ×3 (05:17→22:04)
[2020-08-26] MEDS: Mometasone 200 MCG/Formoterol 5 MCG 120 PUFF INHALER INH SCH ×2 (05:44→18:50)
[2020-08-26 05:51] LABS: #Lymphocytes 0.8 thou/uL (1.20-3.40); #Monocytes 0.4 thou/uL (0.11-0.59); #Neutrophils 5.2 thou/uL (1.40-6.50); %Basophils 0.3 % (0.0-1.0); %Eosinophils 0.1 % (0.0-10.0); %Lymphocytes 12.7 % (21.0-51.0); %Monocytes 6.7 % (0.0-10.0); %Neutrophils 80.3 % (42.0-75.0); Hemoglobin 8.7 g/dL (14.0-18.0); Mean Corpuscular HGB CONC 33.1 g/dL (32.0-36.0); Mean Corpuscular Hemoglobin 30.4 pg (27.0-31.0); Mean Corpuscular Volume 91.7 fL (78.0-98.0); Mean Platelet Volume 7.7 fL (7.4-10.4); Platelet Count 217 thou/uL (130-400); Red Blood Cell (RBC) Count 2.85 mill/uL (4.70-6.10); White Blood Cell (WBC) Count 6.5 thou/uL (4.8-10.8)
[2020-08-26 06:14] LABS: ALT (SGPT) 49 U/L (8-55); AST (SGOT) 40 U/L (5-34); Albumin 2.8 g/dL (3.4-4.8); Alkaline Phosphatase 140 U/L (40-110); Anion Gap 14 mmol/L (10-20); BUN (Urea Nitrogen) 52 mg/dL (8.4-25.7); Bilirubin, Total 0.5 mg/dL (0.2-1.2); Calc. Creatinine Clearance 26 mL/min (70-130); Carbon Dioxide 28 mmol/L (23-31); Chloride 97 mmol/L (98-107); Estimated GFR-MDRD 22; Globulin 2.2 g/dL (2.4-3.5); Glucose 148 mg/dL (83-110); Potassium 4.2 mmol/L (3.5-5.1); Sodium 135 mmol/L (136-145)
--- NOTE | 2020-08-26 08:28 | PDOC.FM ---
- Subjective Subjective: Patient doing well this morning, back to baseline home O2. Discussed trying to find placement at rehab center for continued rehab, patient agreeable with plan of care. - Objective Vital Signs & Weight: Vital Signs (12 hours) Temp Pulse Resp BP Pulse Ox 08/26/20 05:19 93 L 08/26/20 03:50 98.5 F 72 18 131/63 99 Weight Weight 89.04 kg I&O: 08/25/20 08/26/20 08/27/20 06:59 06:59 06:59 Intake Total 1240 640 Balance 1240 640 Result Diagrams: 08/26/20 05:25 08/26/20 05:26 Phys Exam - Physical Examination Constitutional: NAD HEENT: moist MMs, sclera anicteric Neck: supple, full ROM Respiratory: no wheezing, clear to auscultation bilateral Cardiovascular: RRR, no significant murmur Gastrointestinal: soft, non-tender trace BLE Neurological: non-focal reduced mobility of lower limbs Psychiatric: normal affect Skin: no rash Dx/Plan (1) ESRD (end stage renal disease) on dialysis Code(s): N18.6 - END STAGE RENAL DISEASE; Z99.2 - DEPENDENCE ON RENAL DIALYSIS Status: Acute (2) Acute and chronic respiratory failure with hypoxia Code(s): J96.21 - ACUTE AND CHRONIC RESPIRATORY FAILURE WITH HYPOXIA Status: Acute (3) Acute on chronic diastolic (congestive) heart failure Code(s): I50.33 - ACUTE ON CHRONIC DIASTOLIC (CONGESTIVE) HEART FAILURE Status: Acute (4) COPD exacerbation Code(s): J44.1 - CHRONIC OBSTRUCTIVE PULMONARY DISEASE W (ACUTE) EXACERBATION Status: Acute (5) Anemia, normocytic normochromic Code(s): D64.9 - ANEMIA, UNSPECIFIED Status: Chronic (6) Anxiety and depression Code(s): F41.9 - ANXIETY DISORDER, UNSPECIFIED; F32.9 - MAJOR DEPRESSIVE DISORDER, SINGLE EPISODE, UNSPECIFIED Status: Chronic (7) Atrial fibrillation Code(s): I48.91 - UNSPECIFIED ATRIAL FIBRILLATION Status: Chronic Qualifiers: (8) BPH (benign prostatic hyperplasia) Code(s): N40.0 - BENIGN PROSTATIC HYPERPLASIA WITHOUT LOWER URINRY TRACT SYMP Status: Chronic Qualifiers: - Plan Plan: #Acute hypoxic respiratory failure likely 2/2 combination of acute on chronic COPD exacerbation, acute on chronic HFpEF exacerbation, and COVID PNA -CXR demonstrates stable findings -BNP elevated at 930.5 on admission -Dr. Weinberg consulted from the ED, bedside HD 08/23, again 08/24, again 08/25; continue per nephrology recs -patient on 4L O2NC at baseline, tolerated 4L overnight -Patient on 10mg prednisone qd chronically; continue 40mg methylprednisolone BID for stress-dose steroids in the setting of COVID pna -s/p convalescent plasma 08/24 -Doxycycline BID -Pulmonology consulted, appreciate recs; not a candidate for remdesivir 11/22 ESRD -COVID labs elevated -CM to assist with finding placement at rehab center that accepts COVID patients #Indeterminate Troponin -patient is an ESRD patient, has had elevated levels throughout the past several months -patient denies chest pain -trop x 3 remained indeterminate without becoming positive #ESRD on HD -Dr. Weinberg consulted from ED, HD 08/23, repeated 08/24 #HFpEF exacerbation -elevated BNP, possibly exacerbation -patient had HD on admission and again 08/24, 08/25 -Dr. Fowler is his HF physician #Afib -continue home meds -patient in NSR #Chronic Anemia -hgb 6.8 on 08/24; 2u pRBC given with HD per Dr. Weinberg; Hgb 8.4 this am -will continue to monitor #Pulmonary HTN -continue home sildenafil #Deconditioning -patient to work with PT/OT DVTppx: Heparin TID Diet: HH, Renal high protein Dispo: Admission to telemetry for continued bedside dialysis; monitoring of respiratory status on 4L NC, CM to assist with placement at rehab center PCP: Dr. Mary Code: DNI-Cardiac only Addendum - Attending - Attending Attestation Date/Time: 08/26/20 2790 I personally evaluated the patient and discussed the management with Dr. Marrufo I agree with the History, Examination, Assessment and Plan documented above with any addition or exceptions noted below - Patient without complaints. Breathing well with NC on home settings. Requesting to resume testosterone injections that he was on prior to his hospitalization. Afebrile VSS. A/P: COVID pneumonia- stable; will start to wean steroids. 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 Will check AM testosterone and consider injection. 3) Deconditioning - stable for transfer to rehab/SNF facility; case management aware.
[2020-08-26] MEDS: Sulfameth/Trimethoprim SS 400-80MG TAB PO SCH (10:45)
[2020-08-26] MEDS: Pregabalin 25 MG CAP PO SCH (10:47)
[2020-08-26] MEDS: Gabapentin 100 MG CAP PO SCH ×2 (10:47→19:53)
[2020-08-26] MEDS: Magnesium Oxide 400 MG TAB PO SCH (10:47)
[2020-08-26] MEDS: Cholecalciferol 1,000 UNITS (25 MCG) TAB PO SCH (10:48)
[2020-08-26] MEDS: methylPREDNISolone Sod Succ 40 MG VIAL IVP SCH ×2 (10:49→19:54)
[2020-08-26] MEDS: Heparin 5,000 UNITS/ML VIAL SC SCH ×3 (10:49→19:52)
[2020-08-26] MEDS: guaiFENesin ER 600 MG TAB PO SCH ×2 (10:49→19:52)
[2020-08-26] MEDS: Amiodarone 200 MG TAB PO SCH (10:49)
[2020-08-26] MEDS: Doxycycline 100 MG CAP PO SCH ×2 (10:49→19:53)
[2020-08-26] MEDS: Nystatin Powder 15 GM BOT TOP SCH ×2 (10:50→20:34)
[2020-08-26] MEDS: Fluticasone Propionate Nasal Spray 16 gm Bottle NASAL SCH (10:50)
--- NOTE | 2020-08-26 11:47 | PRG ---
DATE OF SERVICE: 08/26/2020 SUBJECTIVE: An 79-year-old gentleman being seen for end-stage renal disease. The patient denies any nausea, vomiting, or chest pain. OBJECTIVE: GENERAL: The patient is awake and alert. VITAL SIGNS: , breathing 16, and blood pressure 131/63. HEENT: Head normocephalic and atraumatic. Eyes intact, no ulcers. Nose intact, no ulcers. Ears intact, no ulcers. NECK: Supple. No JVD. CHEST: Symmetrical and clear. CARDIOVASCULAR: Shows S1 and S2, no rub, no murmur. GASTROINTESTINAL: Abdomen is soft, bowel sounds positive. EXTREMITIES: Show no edema or ulcers. SKIN: Shows no rash or petechiae. MUSCULOSKELETAL: Shows no joint swelling or stiffness. GENITOURINARY: Shows no De or CVA tenderness. NEUROLOGIC: Motor intact. Cranial nerves intact. LABORATORY DATA: Hemoglobin 8.7. ASSESSMENT AND PLAN: 1. Stage 6 chronic kidney disease, plan dialysis. 2. Hypertension, stable. 3. Anemia, stable. 4. Medication based on GFR appropriate. Job ID: [id number]
[2020-08-26] MEDS: HumaLOG 300 UNITS/3 ML VIAL SC PRN ×2 (13:22→18:11)
[2020-08-26] MEDS: Tamsulosin HCl 0.4 MG CAP PO SCH (19:53)
[2020-08-26] MEDS: Atorvastatin Calcium 20 MG TAB PO SCH (19:53)
[2020-08-27] MEDS: Albuterol 200 PUFF (6.7GM INHALER) INH SCH ×6 (03:33→22:37)
[2020-08-27 04:46] LABS: #Lymphocytes 0.5 thou/uL (1.20-3.40); #Monocytes 0.4 thou/uL (0.11-0.59); #Neutrophils 5.3 thou/uL (1.40-6.50); %Eosinophils 0.1 % (0.0-10.0); %Lymphocytes 7.4 % (21.0-51.0); %Monocytes 5.7 % (0.0-10.0); %Neutrophils 86.8 % (42.0-75.0); Hemoglobin 8.2 g/dL (14.0-18.0); Mean Corpuscular HGB CONC 32.5 g/dL (32.0-36.0); Mean Corpuscular Hemoglobin 30.3 pg (27.0-31.0); Mean Corpuscular Volume 93.2 fL (78.0-98.0); Mean Platelet Volume 7.9 fL (7.4-10.4); Platelet Count 197 thou/uL (130-400); RBC Distribution Width 16.2 % (11.5-14.5); Red Blood Cell (RBC) Count 2.72 mill/uL (4.70-6.10); White Blood Cell (WBC) Count 6.1 thou/uL (4.8-10.8)
[2020-08-27 05:15] LABS: ALT (SGPT) 57 U/L (8-55); AST (SGOT) 47 U/L (5-34); Albumin 2.8 g/dL (3.4-4.8); Alkaline Phosphatase 189 U/L (40-110); Anion Gap 17 mmol/L (10-20); BUN (Urea Nitrogen) 71 mg/dL (8.4-25.7); Bilirubin, Total 0.4 mg/dL (0.2-1.2); Calc. Creatinine Clearance 22 mL/min (70-130); Calcium 7.8 mg/dL (7.8-10.44); Carbon Dioxide 25 mmol/L (23-31); Chloride 95 mmol/L (98-107); Estimated GFR-MDRD 17; Globulin 2.1 g/dL (2.4-3.5); Glucose 227 mg/dL (83-110); Potassium 4.1 mmol/L (3.5-5.1); Protein, Total 4.9 g/dL (5.8-8.1); Sodium 133 mmol/L (136-145)
[2020-08-27] MEDS: Mometasone 200 MCG/Formoterol 5 MCG 120 PUFF INHALER INH SCH ×2 (05:37→16:57)
[2020-08-27] MEDS: Sildenafil Citrate 20 MG TAB PO SCH ×3 (05:38→22:38)
[2020-08-27] MEDS: Acetaminophen 325 MG TAB PO PRN (05:41)
[2020-08-27] MEDS: HumaLOG 300 UNITS/3 ML VIAL SC PRN (07:34)
--- NOTE | 2020-08-27 09:25 | PDOC.FM ---
- Subjective Subjective: Doing well, breathing at baseline. Would like to get up to walk, needing roller. No other concerns at this time. - Objective Vital Signs & Weight: Vital Signs (12 hours) Temp Pulse Resp BP Pulse Ox 08/27/20 03:35 97.4 F L 79 23 H 137/64 98 08/27/20 00:11 97.8 F 75 18 129/60 98 Weight Weight 91.172 kg I&O: 08/26/20 08/27/20 08/28/20 06:59 06:59 06:59 Intake Total 640 500 Balance 640 500 Result Diagrams: 08/27/20 04:15 08/27/20 04:14 Phys Exam - Physical Examination Constitutional: NAD HEENT: PERRLA Neck: full ROM on nasal cannula, no respiratory distress Cardiovascular: RRR, no significant murmur Gastrointestinal: soft, non-tender Neurological: non-focal Psychiatric: normal affect, A&O x 3 Skin: cap refill <2 seconds Dx/Plan - Plan Plan: 08/27 update: -Breathing stable, pending placement, will reach out to -Started walking program per patient request #Acute hypoxic respiratory failure likely 2/2 combination of acute on chronic COPD exacerbation, acute on chronic HFpEF exacerbation, and COVID PNA -CXR demonstrates stable findings -BNP elevated at 930.5 on admission -Dr. Weinberg consulted from the ED, bedside HD 08/23, again 08/24, again 08/25; continue per nephrology recs -patient on 4L O2NC at baseline, tolerated 4L overnight -Patient on 10mg prednisone qd chronically; continue 40mg methylprednisolone BID for stress-dose steroids in the setting of COVID pna -s/p convalescent plasma 08/24 -Doxycycline BID -Pulmonology consulted, appreciate recs; not a candidate for remdesivir 2/2 ESRD -COVID labs elevated -CM to assist with finding placement at rehab center that accepts COVID patients #Indeterminate Troponin -patient is an ESRD patient, has had elevated levels throughout the past several months -patient denies chest pain -trop x 3 remained indeterminate without becoming positive #ESRD on HD -Dr. Weinberg consulted from ED, HD 08/23, repeated 08/24 #HFpEF exacerbation -elevated BNP, possibly exacerbation -patient had HD on admission and again 08/24, 08/25 -Dr. Fowler is his HF physician #Afib -continue home meds -patient in NSR #Chronic Anemia -hgb 6.8 on 08/24; 2u pRBC given with HD per Dr. Weinberg; Hgb 8.4 this am -will continue to monitor #Pulmonary HTN -continue home sildenafil #Deconditioning -patient to work with PT/OT DVTppx: Heparin TID Diet: HH, Renal high protein Dispo: Admission to telemetry for continued bedside dialysis; monitoring of respiratory status on 4L NC, CM to assist with placement at rehab center PCP: Dr. Mary Code: DNI-Cardiac only Addendum - Attending - Attending Attestation Date/Time: 08/27/20 9481 I personally evaluated the patient and discussed the management with Dr. Azevedo I agree with the History, Examination, Assessment and Plan documented above with any addition or exceptions noted below - Patient without complaints. Afebrile VSS. A/P: 1) COVID pneumonia - stable; on baseline O2. 2) advanced COPD- on baseline O2; continue inhalers and start tapering steroids. 3) Severe deconditioning - continue PT; plan for transfer to SNF/rehab when arrangements ready..
[2020-08-27] MEDS: methylPREDNISolone Sod Succ 40 MG VIAL IVP SCH (09:57)
[2020-08-27] MEDS: Gabapentin 100 MG CAP PO SCH ×2 (10:00→20:57)
[2020-08-27] MEDS ORDERED: predniSONE 20 MG TAB PO SCH (10:00)
[2020-08-27] MEDS: Magnesium Oxide 400 MG TAB PO SCH (10:01)
[2020-08-27] MEDS: Multivitamin W/ Minerals 1 TAB PO SCH (10:01)
[2020-08-27] MEDS: Doxycycline 100 MG CAP PO SCH ×2 (10:02→20:58)
[2020-08-27] MEDS: guaiFENesin ER 600 MG TAB PO SCH ×2 (10:02→20:58)
[2020-08-27] MEDS: Amiodarone 200 MG TAB PO SCH (10:02)
[2020-08-27] MEDS: Heparin 5,000 UNITS/ML VIAL SC SCH ×3 (10:03→20:58)
[2020-08-27] MEDS: Cholecalciferol 1,000 UNITS (25 MCG) TAB PO SCH (10:04)
[2020-08-27] MEDS: Pregabalin 25 MG CAP PO SCH (10:07)
[2020-08-27] MEDS ORDERED: Epoetin (ESRD) 10,000 UNITS/ML VIAL SC SCH (10:15)
--- NOTE | 2020-08-27 10:33 | PRG ---
DATE OF SERVICE: 08/27/2020 SUBJECTIVE: An 79-year-old gentleman being seen for end-stage renal disease. The patient denied nausea, vomiting, or chest pain. OBJECTIVE: GENERAL: The patient is awake and alert. VITAL SIGNS: Afebrile, pulse 79, breathing at 16, blood pressure 137/64. HEENT: Head normocephalic and atraumatic. Eyes intact, no ulcers. Nose intact, no ulcers. Ears intact, no ulcers. Neck: Supple. No JVD. Chest: Symmetrical and clear. Cardiovascular: Shows S1 and S2, no rub, no murmur. Gastrointestinal: Abdomen is soft, bowel sounds positive. Extremities: Show no edema or ulcers. Skin: Shows no rash or petechiae. Musculoskeletal: Shows no joint swelling or stiffness. Genitourinary: Shows no De or CVA tenderness. Neurologic: Motor intact. Cranial nerves intact. LABORATORY DATA: Labs show hemoglobin 8.2. ASSESSMENT AND RECOMMENDATION: 1. Stage 6 chronic kidney disease, continue hemodialysis. 2. Hypertension, stable. 3. Anemia, stable. 4. Medication based on GFR appropriate. Job ID: [id number]
[2020-08-27] MEDS: Fluticasone Propionate Nasal Spray 16 gm Bottle NASAL SCH (10:54)
[2020-08-27] MEDS: Nystatin Powder 15 GM BOT TOP SCH ×2 (10:54→20:59)
[2020-08-27] MEDS: EPOETIN ALFA-EPBX (ESRD) 10,000 UNIT/ML VIAL SC SCH (12:11)
[2020-08-27] MEDS ORDERED: Heparin 10,000 UNITS/ 10 ML VIAL ONE (12:59)
--- NOTE | 2020-08-27 15:32 | EKG ---
Test Reason : SOB Blood Pressure : / mmHG Vent. Rate : 087 BPM Atrial Rate : 087 BPM P-R Int : 188 ms QRS Dur : 140 ms QT Int : 406 ms P-R-T Axes : 069 -55 024 degrees QTc Int : 488 ms Normal sinus rhythm Left axis deviation Right bundle branch block Inferior infarct , age undetermined Abnormal ECG Confirmed by MAGEN MILNER ([id number]), international editorial producer CHAVEZ QUINTANILLA ([id number]) on 08/27/2020 3:31:36 PM Referred By: Confirmed By:MAGEN Juarez
--- NOTE | 2020-08-27 18:34 | PRG ---
DATE OF SERVICE: 08/27/2020 SUBJECTIVE: Bin Mart is seen here as he started dialysis. OBJECTIVE: VITAL SIGNS: He is afebrile, heart rate is 80, respiratory rates in the 20s, oximetry is still in the low to mid 90s on 4 L nasal cannula, blood pressure 114/55. LUNGS: Unchanged. HEART: Unchanged. ABDOMEN: Unchanged. IMPRESSION: 1. Advanced chronic obstructive pulmonary disease. 2. Extreme deconditioning. he is bedridden again for 10 days, it may take him walk again. 3. History of multiple falls. 4. End-stage renal disease, on dialysis. 5. Diastolic heart failure with no evidence of pulmonary edema and actually no radiographic evidence for COVID pneumonia at this time. Continue with supportive care. Job ID: [id number]
[2020-08-27] MEDS: Atorvastatin Calcium 20 MG TAB PO SCH (20:58)
[2020-08-27] MEDS: Tamsulosin HCl 0.4 MG CAP PO SCH (20:58)
[2020-08-28 04:47] LABS: #Lymphocytes 0.6 thou/uL (1.20-3.40); #Monocytes 0.3 thou/uL (0.11-0.59); #Neutrophils 7.9 thou/uL (1.40-6.50); %Eosinophils 0.1 % (0.0-10.0); %Lymphocytes 6.8 % (21.0-51.0); %Monocytes 3.6 % (0.0-10.0); %Neutrophils 89.5 % (42.0-75.0); Hemoglobin 8.4 g/dL (14.0-18.0); Mean Corpuscular HGB CONC 32.3 g/dL (32.0-36.0); Mean Corpuscular Hemoglobin 30.2 pg (27.0-31.0); Mean Corpuscular Volume 93.5 fL (78.0-98.0); Mean Platelet Volume 7.9 fL (7.4-10.4); Platelet Count 198 thou/uL (130-400); RBC Distribution Width 16.2 % (11.5-14.5); Red Blood Cell (RBC) Count 2.76 mill/uL (4.70-6.10); White Blood Cell (WBC) Count 8.9 thou/uL (4.8-10.8)
[2020-08-28 05:12] LABS: ALT (SGPT) 49 U/L (8-55); AST (SGOT) 36 U/L (5-34); Albumin 2.6 g/dL (3.4-4.8); Alkaline Phosphatase 175 U/L (40-110); Anion Gap 14 mmol/L (10-20); BUN (Urea Nitrogen) 45 mg/dL (8.4-25.7); Bilirubin, Total 0.4 mg/dL (0.2-1.2); Calc. Creatinine Clearance 31 mL/min (70-130); Calcium 7.7 mg/dL (7.8-10.44); Carbon Dioxide 28 mmol/L (23-31); Chloride 99 mmol/L (98-107); Estimated GFR-MDRD 25; Globulin 2.1 g/dL (2.4-3.5); Glucose 175 mg/dL (83-110); Potassium 3.9 mmol/L (3.5-5.1); Protein, Total 4.7 g/dL (5.8-8.1); Sodium 137 mmol/L (136-145)
[2020-08-28] MEDS: Albuterol 200 PUFF (6.7GM INHALER) INH SCH ×3 (05:13→11:31)
[2020-08-28] MEDS: Mometasone 200 MCG/Formoterol 5 MCG 120 PUFF INHALER INH SCH (05:13)
[2020-08-28] MEDS: Sildenafil Citrate 20 MG TAB PO SCH ×3 (05:14→20:13)
[2020-08-28] MEDS: Multivitamin W/ Minerals 1 TAB PO SCH (09:46)
[2020-08-28] MEDS: Heparin 5,000 UNITS/ML VIAL SC SCH ×3 (09:46→20:09)
[2020-08-28] MEDS: predniSONE 20 MG TAB PO SCH (09:48)
[2020-08-28] MEDS: Amiodarone 200 MG TAB PO SCH (09:48)
[2020-08-28] MEDS: Cholecalciferol 1,000 UNITS (25 MCG) TAB PO SCH (09:49)
[2020-08-28] MEDS: Fluticasone Propionate Nasal Spray 16 gm Bottle NASAL SCH (09:49)
[2020-08-28] MEDS: Doxycycline 100 MG CAP PO SCH ×2 (09:49→20:08)
[2020-08-28] MEDS: Gabapentin 100 MG CAP PO SCH ×2 (09:49→20:07)
[2020-08-28] MEDS: Nystatin Powder 15 GM BOT TOP SCH ×2 (09:50→20:12)
[2020-08-28] MEDS: Magnesium Oxide 400 MG TAB PO SCH (09:50)
[2020-08-28] MEDS: guaiFENesin ER 600 MG TAB PO SCH ×2 (09:50→20:08)
--- NOTE | 2020-08-28 10:05 | PDOC.FM ---
- Subjective Subjective: Pt reports he needs his CPAP to breathe well. Difficulty in hearing but no other concerns at this time. - Objective MAR Reviewed: Yes Vital Signs & Weight: Vital Signs (12 hours) Temp Pulse Resp BP Pulse Ox 08/28/20 08:38 98.9 F 85 24 H 118/57 L 90 L 08/28/20 03:30 98.0 F 71 20 108/55 L 93 L 08/28/20 00:18 98.5 F 75 22 H 118/57 L 97 Weight Weight 91.263 kg I&O: 08/27/20 08/28/20 08/29/20 06:59 06:59 06:59 Intake Total 500 840 Output Total 1000 Balance 500 -160 Result Diagrams: 08/28/20 04:17 08/28/20 04:17 Phys Exam - Physical Examination uncomfortability with bipap but no respiratory distress Respiratory: no wheezing Cardiovascular: RRR, no significant murmur Gastrointestinal: soft, non-tender Musculoskeletal: no edema Skin: no rash Dx/Plan - Plan Plan: 08/28 update: -Breathing worsened, placed on his home CPAP after HD yesterday -Repeat CXR to reassess, continue CPAP -Pending placement #Acute hypoxic respiratory failure likely 2/2 combination of acute on chronic COPD exacerbation, acute on chronic HFpEF exacerbation, and COVID PNA -CXR demonstrates stable findings -BNP elevated at 930.5 on admission -Dr. Weinberg consulted from the ED, bedside HD 08/23, again 08/24, again 08/25; continue per nephrology recs -patient on 4L O2NC at baseline, tolerated 4L overnight -Patient on 10mg prednisone qd chronically; continue 40mg methylprednisolone BID for stress-dose steroids in the setting of COVID pna -s/p convalescent plasma 08/24 -Doxycycline BID -Pulmonology consulted, appreciate recs; not a candidate for remdesivir 2/2 ESRD -COVID labs elevated -CM to assist with finding placement at rehab center that accepts COVID patients #Indeterminate Troponin -patient is an ESRD patient, has had elevated levels throughout the past several months -patient denies chest pain -trop x 3 remained indeterminate without becoming positive #ESRD on HD -Nephro following along, continue routine HD #HFpEF exacerbation -elevated BNP, possibly exacerbation -patient had HD on admission and again 08/24, 08/25 -Dr. Fowler is his HF physician #Afib -continue home meds -patient in NSR #Chronic Anemia -hgb 6.8 on 08/24; 2u pRBC given with HD per Dr. Weinberg; Hgb 8.4 this am -will continue to monitor #Pulmonary HTN -continue home sildenafil #Deconditioning -patient to work with PT/OT DVTppx: Heparin TID Diet: HH, Renal high protein Dispo: Admission to telemetry for continued bedside dialysis; monitoring of respiratory status on 4L NC, CM to assist with placement at rehab center PCP: Dr. Mary Code: DNI-Cardiac only Addendum - Attending - Attending Attestation Date/Time: 08/28/20 2229 I personally evaluated the patient and discussed the management with Dr. Azevedo I agree with the History, Examination, Assessment and Plan documented above with any addition or exceptions noted below - Having increased SOB since yesterday afternoon/evening. Started on his home CPAP with minimal improvement. Afebrile VSS. A/P: 1) Acute resp failure secondary to COVID pneumonia - Repeat CXR, BNP ordered to evaluate worsening SOB. CPAP also seemingly having leak, will have RT evaluate. If not improvement may need to try HFNC. 2) ESRD- on HD; continue HD.
--- NOTE | 2020-08-28 10:49 | RAD ---
EXAM: Chest one view: HISTORY: Worsening respiratory status COMPARISON: 08/23/2020 FINDINGS: Right dual-lumen venous access catheter. Heart size: Within normal limits. Lungs: Extensive bilateral interstitial and reticular nodular parenchymal changes No evidence for confluent lobar pneumonia, significant pleural effusion, acute edema, or pneumothorax , or other significant acute process. IMPRESSION: Fairly extensive interstitial and reticular nodular and linear parenchymal changes bilaterally, littl e changed. Continued short-term follow-up.
[2020-08-28] MEDS: Pregabalin 25 MG CAP PO SCH (11:12)
[2020-08-28 14:12] LABS: Base Excess (BEa) 3.8 mEq/L (-2.0 to +3.0); CO2 Tension 35.2 mmHg (35.0-45.0); Calcium, Ionized (arterial) 1.05 mmol/L (1.12-1.30); Carboxyhemoglobin (COHb) 0.8 gm% (0.0-3.0); Hemoglobin (Hb) 9.5 g/dL (14.0-18.0); Potassium - ABG Lab 4.16 mmol/L (3.70-5.30)
[2020-08-28 14:23] LABS: O2 Tension (PaO2), arterial 43.9 mmHg (> 60.0)
[2020-08-28 14:27] LABS: Puncture Site RRA
[2020-08-28] MEDS ORDERED: PROVENTIL INHALER 6.7 G (200 INHALATIONS) INH PRN (15:30)
[2020-08-28 16:30] LABS: #Lymphocytes 0.6 thou/uL (1.20-3.40); #Monocytes 0.3 thou/uL (0.11-0.59); %Eosinophils 0.1 % (0.0-10.0); %Lymphocytes 5.4 % (21.0-51.0); %Monocytes 2.9 % (0.0-10.0); %Neutrophils 91.7 % (42.0-75.0); Hemoglobin 8.9 g/dL (14.0-18.0); Mean Corpuscular HGB CONC 32.1 g/dL (32.0-36.0); Mean Corpuscular Volume 93.3 fL (78.0-98.0); Mean Platelet Volume 8.1 fL (7.4-10.4); Platelet Count 215 thou/uL (130-400); RBC Distribution Width 16.7 % (11.5-14.5); Red Blood Cell (RBC) Count 2.98 mill/uL (4.70-6.10); White Blood Cell (WBC) Count 10.9 thou/uL (4.8-10.8)
--- NOTE | 2020-08-28 16:43 | PRG ---
DATE OF SERVICE: 08/28/2020 SUBJECTIVE: Bin Mart has had an increase in work of breathing. I noticed he is not on steroids, so this has been added. His CPAP with 4 L titrated and gives him a saturation of 90%, which is adequate. His respiratory rate is in the 20s. OBJECTIVE: VITAL SIGNS: He is afebrile. Blood pressure was 129/64 earlier. He was transferred to the intermediate care unit. Remainder of exam is unchanged. IMPRESSION: 1. Advanced chronic obstructive pulmonary disease. 2. Severe deconditioning. 3. Diastolic heart failure. 4. End-stage renal disease. 5. COVID-19. PLAN: He is used to his CPAP in his current settings and assistance are adequate, and his O2 sats are adequate. Steroids and nebulized treatments will be helpful. Given that he can hold his breath, use metered-dose inhaler and has steroid-dependent COPD. My plan when he left here is for him to stay on 20 mg a day of prednisone. We will follow. Job ID: [id number]
[2020-08-28 16:53] LABS: Troponin I 0.055 ng/mL (< 0.028)
[2020-08-28] MEDS: methylPREDNISolone Sod Succ 40 MG VIAL IVP SCH ×2 (16:54→20:12)
[2020-08-28] MEDS: Atorvastatin Calcium 20 MG TAB PO SCH (20:08)
[2020-08-28] MEDS: Tamsulosin HCl 0.4 MG CAP PO SCH (20:08)
[2020-08-28] MEDS: PROVENTIL INHALER 6.7 G (200 INHALATIONS) INH SCH ×2 (20:09→22:41)
[2020-08-28] MEDS: HumaLOG 300 UNITS/3 ML VIAL SC PRN (20:49)
--- NOTE | 2020-08-28 20:55 | PRG ---
DATE OF SERVICE: 08/28/2020 SUBJECTIVE: An 79-year-old gentleman being seen for end-stage renal disease. The patient denies any nausea, vomiting, or chest pain. OBJECTIVE: GENERAL: The patient is awake and alert. VITAL SIGNS: Pulse 95, breathing 16, and blood pressure 129/64. HEENT: Head normocephalic and atraumatic. Eyes intact, no ulcers. Nose intact, no ulcers. Ears intact, no ulcers. NECK: Supple. No JVD. CHEST: Symmetrical and clear. CARDIOVASCULAR: Shows S1 and S2, no rub, no murmur. GASTROINTESTINAL: Abdomen is soft, bowel sounds positive. EXTREMITIES: Show no edema or ulcers. SKIN: Shows no rash or petechiae. MUSCULOSKELETAL: Shows no joint swelling or stiffness. GENITOURINARY: Shows no De or CVA tenderness. NEUROLOGIC: Motor intact. Cranial nerves intact. LABORATORY DATA: Reviewed. ASSESSMENT AND PLAN: 1. Stage 6 chronic kidney disease, plan dialysis. 2. Hypertension, stable. 3. Anemia, stable. 4. Medication based on GFR appropriate. Continue dialysis. Job ID: [id number]
[2020-08-29] MEDS: methylPREDNISolone Sod Succ 40 MG VIAL IVP SCH ×4 (02:08→20:24)
[2020-08-29] MEDS: PROVENTIL INHALER 6.7 G (200 INHALATIONS) INH SCH ×6 (02:11→20:25)
[2020-08-29] MEDS: Sildenafil Citrate 20 MG TAB PO SCH ×3 (05:18→20:23)
--- NOTE | 2020-08-29 05:28 | PDOC.FM ---
- Subjective Subjective: Patient resting comfortably on BiPAP this morning. Denies cough, breathing stable. Has not been able to eat much while on the BiPAP. - Objective Vital Signs & Weight: Vital Signs (12 hours) Temp Pulse Ox 08/28/20 23:50 97.4 F L 08/28/20 21:00 98.0 F 08/28/20 20:00 100 08/28/20 17:30 98.2 F Weight Weight 91.263 kg Most Recent Monitor Data Heart Rate from ECG 71 NIBP 108/60 NIBP BP-Mean 76 Respiration from ECG 14 SpO2 100 I&O: 08/27/20 08/28/20 08/29/20 06:59 06:59 06:59 Intake Total 500 840 300 Output Total 1000 50 Balance 500 -160 250 Result Diagrams: 08/28/20 16:17 08/28/20 04:17 Phys Exam - Physical Examination Constitutional: NAD HEENT: moist MMs, sclera anicteric Neck: supple, full ROM decreased breath sounds throughout Cardiovascular: RRR, no significant murmur Gastrointestinal: soft, no distention 1+ pitting edema BLE Neurological: non-focal, moves all 4 limbs Psychiatric: normal affect Skin: no rash Dx/Plan (1) ESRD (end stage renal disease) on dialysis Code(s): N18.6 - END STAGE RENAL DISEASE; Z99.2 - DEPENDENCE ON RENAL DIALYSIS Status: Acute (2) Acute and chronic respiratory failure with hypoxia Code(s): J96.21 - ACUTE AND CHRONIC RESPIRATORY FAILURE WITH HYPOXIA Status: Acute (3) Acute on chronic diastolic (congestive) heart failure Code(s): I50.33 - ACUTE ON CHRONIC DIASTOLIC (CONGESTIVE) HEART FAILURE Status: Acute (4) COPD exacerbation Code(s): J44.1 - CHRONIC OBSTRUCTIVE PULMONARY DISEASE W (ACUTE) EXACERBATION Status: Acute (5) Anemia, normocytic normochromic Code(s): D64.9 - ANEMIA, UNSPECIFIED Status: Chronic (6) Anxiety and depression Code(s): F41.9 - ANXIETY DISORDER, UNSPECIFIED; F32.9 - MAJOR DEPRESSIVE DISORDER, SINGLE EPISODE, UNSPECIFIED Status: Chronic (7) Atrial fibrillation Code(s): I48.91 - UNSPECIFIED ATRIAL FIBRILLATION Status: Chronic Qualifiers: (8) BPH (benign prostatic hyperplasia) Code(s): N40.0 - BENIGN PROSTATIC HYPERPLASIA WITHOUT LOWER URINRY TRACT SYMP Status: Chronic Qualifiers: - Plan Plan: #Acute hypoxic respiratory failure likely 2/2 combination of acute on chronic COPD exacerbation, acute on chronic HFpEF exacerbation, and COVID PNA -CXR 08/28-extensive nodular/interstitial changes -BNP elevated at 930.5 on admission,repeat 08/28 960s -Dr. Weinberg consulted from the ED, continue HD per nephrology recs -patient on 4L O2NC at baseline, transitioned to BiPAP 08/28 as patient had increased WOB; tolerated BiPAP well overnight -Patient on 10mg prednisone qd chronically; continue 40mg methylprednisolone Q6H for stress-dose steroids in the setting of COVID pna -s/p convalescent plasma 08/24 -Doxycycline BID -Pulmonology consulted, appreciate recs; not a candidate for remdesivir 2/2 ESRD -COVID labs elevated -CM to assist with finding placement at rehab center that accepts COVID patients -Dietary consulted to assist; patient has decreased PO intake while on BiPAP #Indeterminate Troponin -patient is an ESRD patient, has had elevated levels throughout the past several months -patient denies chest pain -trop x 3 remained indeterminate without becoming positive #ESRD on HD -Nephro following along, continue routine HD #HFpEF exacerbation -elevated BNP, possibly exacerbation; repeat BNP 08/28 similar to BNP on admission -continue HD -Dr. Fowler is his HF physician #Afib -continue home meds -patient in NSR #Chronic Anemia -hgb 6.8 on 08/24; 2u pRBC given with HD per Dr. Weinberg; stable -will continue to monitor #Pulmonary HTN -continue home sildenafil #Deconditioning -patient to work with PT/OT DVTppx: Heparin TID Diet: HH, Renal high protein Dispo: Admission to [facility] for continued bedside dialysis; monitoring of respiratory status on BiPAP, CM to assist with placement at rehab center PCP: Dr. Mary Code: DNI-Cardiac only Addendum - Attending - Attending Attestation Date/Time: 08/29/20 0679 I personally evaluated the patient and discussed the management with Dr. Marrufo. I agree with the History, Examination, Assessment and Plan documented above with any addition or exceptions noted below.
[2020-08-29] MEDS: HumaLOG 300 UNITS/3 ML VIAL SC PRN ×2 (05:32→20:47)
[2020-08-29] MEDS: Amiodarone 200 MG TAB PO SCH (09:07)
[2020-08-29] MEDS: Multivitamin W/ Minerals 1 TAB PO SCH (09:08)
[2020-08-29] MEDS: Fluticasone Propionate Nasal Spray 16 gm Bottle NASAL SCH (09:08)
[2020-08-29] MEDS: Cholecalciferol 1,000 UNITS (25 MCG) TAB PO SCH (09:08)
[2020-08-29] MEDS: Gabapentin 100 MG CAP PO SCH ×2 (09:08→20:24)
[2020-08-29] MEDS: guaiFENesin ER 600 MG TAB PO SCH ×2 (09:08→20:25)
[2020-08-29] MEDS: Magnesium Oxide 400 MG TAB PO SCH (09:08)
[2020-08-29] MEDS: Doxycycline 100 MG CAP PO SCH ×2 (09:08→20:24)
[2020-08-29] MEDS: Heparin 5,000 UNITS/ML VIAL SC SCH ×3 (09:08→20:28)
[2020-08-29] MEDS: Nystatin Powder 15 GM BOT TOP SCH ×2 (09:09→20:30)
[2020-08-29] MEDS: Pregabalin 25 MG CAP PO SCH (09:09)
[2020-08-29] MEDS: Sulfameth/Trimethoprim SS 400-80MG TAB PO SCH (09:10)
[2020-08-29] MEDS: predniSONE 20 MG TAB PO SCH (10:13)
--- NOTE | 2020-08-29 11:09 | PRG ---
DATE OF SERVICE: 08/29/2020 SUBJECTIVE: The patient is in COVID isolation. OBJECTIVE: VITAL SIGNS: Temperature 97.6, pulse 80, respiratory rate 18, blood pressure 143/62. LABORATORY DATA: Not done today. COVID was positive. Hemoglobin was 8.9 yesterday. ASSESSMENT AND PLAN: 1. End-stage renal disease, on hemodialysis. Plan dialysis TTS per his schedule. 2. COVID-19 infection. 3. History of hypertension. 4. Anemia of chronic disease. 5. Edema with fluid overload. 6. Cardiorenal syndrome. We will continue dialysis as tolerated. Job ID: [id number]
[2020-08-29 11:40] LABS: Anion Gap 17 mmol/L (10-20); BUN (Urea Nitrogen) 66 mg/dL (8.4-25.7); Calc. Creatinine Clearance 23 mL/min (70-130); Calcium 7.9 mg/dL (7.8-10.44); Carbon Dioxide 27 mmol/L (23-31); Chloride 98 mmol/L (98-107); Estimated GFR-MDRD 19; Glucose 141 mg/dL (83-110); Potassium 4.7 mmol/L (3.5-5.1); Sodium 137 mmol/L (136-145)
--- NOTE | 2020-08-29 17:04 | PRG ---
DATE OF SERVICE: 08/29/2020 SUBJECTIVE: Bin Mart says he feels much better. He is quite talkative this morning. OBJECTIVE: VITAL SIGNS: Blood pressure 130/82, heart rate is 92, respiratory rate is 18. LUNGS: Expiratory phase is shortened. HEART: Regular rhythm. LABORATORY DATA: Sodium 137, potassium 4.7, BUN 66, and creatinine 3.2. IMPRESSION: 1. COVID-19 infection. 2. Chronic obstructive pulmonary disease, likely with a component of exacerbation associated with COVID given his improvement with steroids and nebulizer treatments. 3. End-stage renal disease. 4. Diastolic heart failure. 5. Hypertension. 6. Severe chronic obstructive pulmonary disease. I talked to his this morning and told him we would continue aggressively. I have explained to her that coding him without intubation would be a futile event. She agreed for him to be a do not resuscitate patient, but I did reassure that we will continue with everything short of heroic measures. She is appreciative. Job ID: [id number]
[2020-08-29] MEDS: Tamsulosin HCl 0.4 MG CAP PO SCH (20:24)
[2020-08-29] MEDS: Atorvastatin Calcium 20 MG TAB PO SCH (20:25)
[2020-08-30] MEDS: methylPREDNISolone Sod Succ 40 MG VIAL IVP SCH ×4 (02:01→20:58)
[2020-08-30] MEDS: PROVENTIL INHALER 6.7 G (200 INHALATIONS) INH SCH ×6 (02:01→20:59)
[2020-08-30] MEDS: Sildenafil Citrate 20 MG TAB PO SCH ×3 (05:00→20:58)
[2020-08-30] MEDS: HumaLOG 300 UNITS/3 ML VIAL SC PRN ×2 (05:07→11:33)
--- NOTE | 2020-08-30 05:32 | PDOC.FM ---
- Subjective Subjective: Patient states he did not sleep much last night at all. States he prefers the bipap over the HFNC for his breathing. Feels congested but only occasionally coughs up clear sputum. - Objective Vital Signs & Weight: Vital Signs (12 hours) Temp Pulse Ox 08/30/20 05:00 97.0 F L 08/30/20 01:00 98.3 F 08/29/20 21:00 98.0 F 08/29/20 20:00 97 Weight Admit Weight 90.265 kg Weight 90.265 kg Most Recent Monitor Data Heart Rate from ECG 84 NIBP 144/63 NIBP BP-Mean 90 Respiration from ECG 21 SpO2 90 I&O: 08/28/20 08/29/20 08/30/20 06:59 06:59 06:59 Intake Total 840 500 800 Output Total 1000 50 50 Balance -160 450 750 Result Diagrams: 08/30/20 06:59 08/30/20 06:59 Phys Exam - Physical Examination Constitutional: NAD HEENT: sclera anicteric Neck: full ROM scant wheezing upper lobes Cardiovascular: RRR Gastrointestinal: soft, no distention 1+ pitting edema BLE Neurological: non-focal, moves all 4 limbs Psychiatric: normal affect Skin: no rash Dx/Plan (1) ESRD (end stage renal disease) on dialysis Code(s): N18.6 - END STAGE RENAL DISEASE; Z99.2 - DEPENDENCE ON RENAL DIALYSIS Status: Acute (2) Acute and chronic respiratory failure with hypoxia Code(s): J96.21 - ACUTE AND CHRONIC RESPIRATORY FAILURE WITH HYPOXIA Status: Acute (3) Acute on chronic diastolic (congestive) heart failure Code(s): I50.33 - ACUTE ON CHRONIC DIASTOLIC (CONGESTIVE) HEART FAILURE Status: Acute (4) COPD exacerbation Code(s): J44.1 - CHRONIC OBSTRUCTIVE PULMONARY DISEASE W (ACUTE) EXACERBATION Status: Acute (5) Anemia, normocytic normochromic Code(s): D64.9 - ANEMIA, UNSPECIFIED Status: Chronic (6) Anxiety and depression Code(s): F41.9 - ANXIETY DISORDER, UNSPECIFIED; F32.9 - MAJOR DEPRESSIVE DISORDER, SINGLE EPISODE, UNSPECIFIED Status: Chronic (7) Atrial fibrillation Code(s): I48.91 - UNSPECIFIED ATRIAL FIBRILLATION Status: Chronic Qualifiers: (8) BPH (benign prostatic hyperplasia) Code(s): N40.0 - BENIGN PROSTATIC HYPERPLASIA WITHOUT LOWER URINRY TRACT SYMP Status: Chronic Qualifiers: - Plan Plan: #Acute hypoxic respiratory failure likely 2/2 combination of acute on chronic COPD exacerbation, acute on chronic HFpEF exacerbation, and COVID PNA -CXR 08/28-extensive nodular/interstitial changes -BNP elevated at 930.5 on admission,repeat 08/28 960s -Dr. Weinberg consulted from the ED, continue HD per nephrology recs -patient on 4L O2NC at baseline, transitioned to BiPAP 08/28 as patient had increased WOB; transitioned to HFNC 08/29, used biPAP overnight as patient reports this is more comfortable -Patient on 10mg prednisone qd chronically; continue 40mg methylprednisolone Q6H for stress-dose steroids in the setting of COVID pna -s/p convalescent plasma 08/24 -Doxycycline BID -Pulmonology consulted, appreciate recs; not a candidate for remdesivir 2/2 ESRD -COVID labs elevated -CM to assist with finding placement at rehab center that accepts COVID patients -Dietary consulted to assist with nutrition needs #Indeterminate Troponin -patient is an ESRD patient, has had elevated levels throughout the past several months -patient denies chest pain -trop x 3 remained indeterminate without becoming positive #ESRD on HD -Nephro following along, continue routine HD #HFpEF exacerbation -elevated BNP, possibly exacerbation; repeat BNP 08/28 similar to BNP on admission -continue HD -Dr. Fowler is his HF physician #Afib -continue home meds -patient in NSR #Chronic Anemia -hgb 6.8 on 08/24; 2u pRBC given with HD per Dr. Weinberg; stable -will continue to monitor #Pulmonary HTN -continue home sildenafil #Deconditioning -patient to work with PT/OT DVTppx: Heparin TID Diet: HH, Renal high protein Dispo: Admission to [facility] for continued bedside dialysis; monitoring of respiratory status, CM to assist with placement at rehab center PCP: Dr. Mary; patient has reportedly fired Sound Code: DNI-Cardiac only Addendum - Attending - Attending Attestation Date/Time: 08/30/20 1122 I personally evaluated the patient and discussed the management with Dr. Marrufo. I agree with the History, Examination, Assessment and Plan documented above with any addition or exceptions noted below. Continue COVID care. Pulm on board.
[2020-08-30 07:23] LABS: #Lymphocytes 0.4 thou/uL (1.20-3.40); #Monocytes 0.2 thou/uL (0.11-0.59); #Neutrophils 7.1 thou/uL (1.40-6.50); %Eosinophils 0.1 % (0.0-10.0); %Lymphocytes 5.1 % (21.0-51.0); %Monocytes 2.5 % (0.0-10.0); %Neutrophils 92.3 % (42.0-75.0); Hemoglobin 8.7 g/dL (14.0-18.0); Mean Corpuscular HGB CONC 32.4 g/dL (32.0-36.0); Mean Corpuscular Hemoglobin 29.9 pg (27.0-31.0); Mean Corpuscular Volume 92.3 fL (78.0-98.0); Mean Platelet Volume 8.3 fL (7.4-10.4); Platelet Count 215 thou/uL (130-400); RBC Distribution Width 16.3 % (11.5-14.5); White Blood Cell (WBC) Count 7.7 thou/uL (4.8-10.8)
[2020-08-30 07:27] LABS: ALT (SGPT) 46 U/L (8-55); AST (SGOT) 24 U/L (5-34); Albumin 2.7 g/dL (3.4-4.8); Alkaline Phosphatase 168 U/L (40-110); Anion Gap 18 mmol/L (10-20); BUN (Urea Nitrogen) 84 mg/dL (8.4-25.7); Bilirubin, Total 0.6 mg/dL (0.2-1.2); CRP (Inflammatory) 7.82 mg/dL (= or < 0.5); Calc. Creatinine Clearance 21 mL/min (70-130); Calcium 7.9 mg/dL (7.8-10.44); Carbon Dioxide 25 mmol/L (23-31); Chloride 98 mmol/L (98-107); Estimated GFR-MDRD 17; Glucose 172 mg/dL (83-110); Potassium 4.5 mmol/L (3.5-5.1); Protein, Total 4.7 g/dL (5.8-8.1); Sodium 136 mmol/L (136-145)
[2020-08-30] MEDS: Cholecalciferol 1,000 UNITS (25 MCG) TAB PO SCH (09:06)
[2020-08-30] MEDS: Magnesium Oxide 400 MG TAB PO SCH (09:06)
[2020-08-30] MEDS: Doxycycline 100 MG CAP PO SCH ×2 (09:06→20:56)
[2020-08-30] MEDS: Multivitamin W/ Minerals 1 TAB PO SCH (09:07)
[2020-08-30] MEDS: guaiFENesin ER 600 MG TAB PO SCH ×2 (09:07→20:56)
[2020-08-30] MEDS: Gabapentin 100 MG CAP PO SCH ×2 (09:07→20:56)
[2020-08-30] MEDS: Heparin 5,000 UNITS/ML VIAL SC SCH ×3 (09:08→20:57)
[2020-08-30] MEDS: Nystatin Powder 15 GM BOT TOP SCH ×2 (09:08→20:57)
[2020-08-30] MEDS: Pregabalin 25 MG CAP PO SCH (09:08)
[2020-08-30] MEDS: Fluticasone Propionate Nasal Spray 16 gm Bottle NASAL SCH (09:09)
[2020-08-30] MEDS: Amiodarone 200 MG TAB PO SCH (09:09)
[2020-08-30] MEDS ORDERED: Heparin 10,000 UNITS/ 10 ML VIAL ONE (09:29)
--- NOTE | 2020-08-30 14:52 | PRG ---
DATE OF SERVICE: 08/30/2020 SUBJECTIVE: The patient is on COVID isolation. OBJECTIVE: VITAL SIGNS: Temperature 97.0, pulse 82, respiratory rate 14, blood pressure 113/55. The patient is on COVID isolation. LABORATORY DATA: Potassium 4.5, BUN is 84, creatinine is 3.5. ASSESSMENT AND PLAN: 1. End-stage renal disease, on hemodialysis. Continue dialysis TTS as tolerated. 2. COVID-19 infection. 3. History of hypertension. 4. Anemia of chronic disease. 5. Edema, fluid overload. 6. Cardiorenal syndrome. 7. Plan to continue dialysis as tolerated. Prognosis is guarded. Job ID: [id number]
[2020-08-30] MEDS: Atorvastatin Calcium 20 MG TAB PO SCH (20:56)
[2020-08-30] MEDS: Tamsulosin HCl 0.4 MG CAP PO SCH (20:56)
[2020-08-30] MEDS: Zolpidem Tartrate 5 MG TAB PO PRN (21:51)
[2020-08-31] MEDS: Acetaminophen 325 MG TAB PO PRN ×2 (00:23→20:05)
[2020-08-31] MEDS: methylPREDNISolone Sod Succ 40 MG VIAL IVP SCH ×4 (02:50→20:05)
[2020-08-31] MEDS: PROVENTIL INHALER 6.7 G (200 INHALATIONS) INH SCH ×6 (02:50→22:40)
[2020-08-31 03:52] LABS: #Lymphocytes 0.3 thou/uL (1.20-3.40); #Monocytes 0.4 thou/uL (0.11-0.59); %Eosinophils 0.1 % (0.0-10.0); %Lymphocytes 3.2 % (21.0-51.0); %Monocytes 4.2 % (0.0-10.0); %Neutrophils 92.6 % (42.0-75.0); Hemoglobin 8.5 g/dL (14.0-18.0); Mean Corpuscular HGB CONC 33.3 g/dL (32.0-36.0); Mean Corpuscular Hemoglobin 30.6 pg (27.0-31.0); Mean Platelet Volume 8.1 fL (7.4-10.4); Platelet Count 213 thou/uL (130-400); RBC Distribution Width 16.2 % (11.5-14.5); Red Blood Cell (RBC) Count 2.77 mill/uL (4.70-6.10); White Blood Cell (WBC) Count 9.7 thou/uL (4.8-10.8)
[2020-08-31 04:15] LABS: Anion Gap 15 mmol/L (10-20); BUN (Urea Nitrogen) 46 mg/dL (8.4-25.7); Calc. Creatinine Clearance 34 mL/min (70-130); Carbon Dioxide 27 mmol/L (23-31); Chloride 98 mmol/L (98-107); Estimated GFR-MDRD 29; Glucose 166 mg/dL (83-110); Sodium 136 mmol/L (136-145)
[2020-08-31] MEDS: Sildenafil Citrate 20 MG TAB PO SCH ×3 (05:12→21:31)
--- NOTE | 2020-08-31 05:25 | PDOC.FM ---
- Subjective Subjective: Patient did well overnight, prefers to sleep with the BiPAP. Discussed continued respiratory support with steroids. Patient agreeable. - Objective Vital Signs & Weight: Vital Signs (12 hours) Temp Pulse Resp Pulse Ox 08/31/20 03:02 77 13 97 08/31/20 01:00 97.6 F 08/30/20 22:37 83 22 H 94 L 08/30/20 21:00 98.0 F 08/30/20 20:00 97 Weight Admit Weight 90.265 kg Weight 90.718 kg Most Recent Monitor Data Heart Rate from ECG 67 NIBP 117/59 NIBP BP-Mean 78 Respiration from ECG 14 SpO2 97 I&O: 08/29/20 08/30/20 08/31/20 06:59 06:59 06:59 Intake Total 500 800 920 Output Total 50 50 Balance 450 750 920 Result Diagrams: 08/31/20 03:27 08/31/20 03:27 Phys Exam - Physical Examination Constitutional: NAD HEENT: moist MMs, sclera anicteric Neck: supple, full ROM decreased breath sounds Cardiovascular: RRR, no significant murmur Gastrointestinal: soft, non-tender Musculoskeletal: no edema, pulses present Neurological: non-focal, moves all 4 limbs Psychiatric: normal affect Skin: no rash Dx/Plan (1) ESRD (end stage renal disease) on dialysis Code(s): N18.6 - END STAGE RENAL DISEASE; Z99.2 - DEPENDENCE ON RENAL DIALYSIS Status: Acute (2) Acute and chronic respiratory failure with hypoxia Code(s): J96.21 - ACUTE AND CHRONIC RESPIRATORY FAILURE WITH HYPOXIA Status: Acute (3) Acute on chronic diastolic (congestive) heart failure Code(s): I50.33 - ACUTE ON CHRONIC DIASTOLIC (CONGESTIVE) HEART FAILURE Status: Acute (4) COPD exacerbation Code(s): J44.1 - CHRONIC OBSTRUCTIVE PULMONARY DISEASE W (ACUTE) EXACERBATION Status: Acute (5) Anemia, normocytic normochromic Code(s): D64.9 - ANEMIA, UNSPECIFIED Status: Chronic (6) Anxiety and depression Code(s): F41.9 - ANXIETY DISORDER, UNSPECIFIED; F32.9 - MAJOR DEPRESSIVE DISORDER, SINGLE EPISODE, UNSPECIFIED Status: Chronic (7) Atrial fibrillation Code(s): I48.91 - UNSPECIFIED ATRIAL FIBRILLATION Status: Chronic Qualifiers: (8) BPH (benign prostatic hyperplasia) Code(s): N40.0 - BENIGN PROSTATIC HYPERPLASIA WITHOUT LOWER URINRY TRACT SYMP Status: Chronic Qualifiers: - Plan Plan: #Acute hypoxic respiratory failure likely 2/2 combination of acute on chronic COPD exacerbation, acute on chronic HFpEF exacerbation, and COVID PNA -CXR 08/28-extensive nodular/interstitial changes -BNP elevated at 930.5 on admission,repeat 08/28 960s -Dr. Weinberg consulted from the ED, continue HD per nephrology recs -patient on 4L O2NC at baseline, transitioned to BiPAP 08/28 as patient had increased WOB; transitioned to HFNC 08/29, used biPAP overnight as patient reports this is more comfortable, uses CPAP at night at home -Patient on 10mg prednisone qd chronically; continue 40mg methylprednisolone Q6H for stress-dose steroids in the setting of COVID pna -s/p convalescent plasma 08/24 -Doxycycline BID -Pulmonology consulted, appreciate recs; not a candidate for remdesivir 2/2 ESRD -COVID labs elevated -CM to assist with finding placement at rehab center that accepts COVID patients -Dietary consulted to assist with nutrition needs #Indeterminate Troponin -patient is an ESRD patient, has had elevated levels throughout the past several months -patient denies chest pain -trop x 3 remained indeterminate without becoming positive #ESRD on HD -Nephro following along, continue routine HD TTHSat #HFpEF exacerbation -elevated BNP, possibly exacerbation; repeat BNP 08/28 similar to BNP on admission -continue HD -Dr. Fowler is his HF physician #Afib -continue home meds -patient in NSR #Chronic Anemia -hgb 6.8 on 08/24; 2u pRBC given with HD per Dr. Weinberg; stable -will continue to monitor #Pulmonary HTN -continue home sildenafil #Deconditioning -patient to work with PT/OT DVTppx: Heparin TID Diet: HH, Renal high protein Dispo: Admission to [facility] for continued bedside dialysis; monitoring of respira tory status, CM to assist with placement at rehab center PCP: Dr. Mary; patient has reportedly fired Sound Code: DNI-Cardiac only Addendum - Attending - Attending Attestation Date/Time: 08/31/20 1102 I personally evaluated the patient and discussed the management with Dr. Marrufo. I agree with the History, Examination, Assessment and Plan documented above with any addition or exceptions noted below.
[2020-08-31] MEDS: Multivitamin W/ Minerals 1 TAB PO SCH (07:33)
[2020-08-31] MEDS: Magnesium Oxide 400 MG TAB PO SCH (07:33)
[2020-08-31] MEDS: Sulfameth/Trimethoprim SS 400-80MG TAB PO SCH (07:33)
[2020-08-31] MEDS: Amiodarone 200 MG TAB PO SCH (07:33)
[2020-08-31] MEDS: Pregabalin 25 MG CAP PO SCH (07:33)
[2020-08-31] MEDS: Gabapentin 100 MG CAP PO SCH ×2 (07:34→20:04)
[2020-08-31] MEDS: guaiFENesin ER 600 MG TAB PO SCH ×2 (07:34→20:05)
[2020-08-31] MEDS: Cholecalciferol 1,000 UNITS (25 MCG) TAB PO SCH (07:34)
[2020-08-31] MEDS: Doxycycline 100 MG CAP PO SCH ×2 (07:34→20:05)
[2020-08-31] MEDS: Fluticasone Propionate Nasal Spray 16 gm Bottle NASAL SCH (07:34)
[2020-08-31] MEDS: Heparin 5,000 UNITS/ML VIAL SC SCH ×3 (07:34→20:06)
[2020-08-31] MEDS: Nystatin Powder 15 GM BOT TOP SCH ×2 (07:35→21:30)
--- NOTE | 2020-08-31 11:16 | PRG ---
DATE OF SERVICE: 08/31/2020 SUBJECTIVE: The patient is on COVID isolation. OBJECTIVE: VITAL SIGNS: Temperature 98.4, pulse 78, respiratory rate 21, blood pressure 122/52. LABORATORY DATA: Potassium 4.0, BUN is 46, and creatinine is 2.2. ASSESSMENT AND PLAN: 1. End-stage renal disease, continue dialysis TTS as tolerated. 2. COVID-19 infection. 3. History of hypertension. 4. Anemia of chronic disease. 5. Edema. 6. Fluid overload. 7. Cardiorenal syndrome. 8. We will continue on dialysis as tolerated. Job ID: [id number]
[2020-08-31] MEDS: HumaLOG 300 UNITS/3 ML VIAL SC PRN (11:38)
--- NOTE | 2020-08-31 17:17 | PRG ---
DATE OF SERVICE: 08/31/2020 Mr. Mart is resting comfortably. Heart rate is in the 90s, blood pressure 126/86, respiratory rates in the teens, oximetry is 100%. He could be transitioned back to a nasal cannula and should be in my opinion. We will continue with his CPAP at night. Job ID: [id number]
[2020-08-31] MEDS: Zolpidem Tartrate 5 MG TAB PO PRN (20:04)
[2020-08-31] MEDS: Tamsulosin HCl 0.4 MG CAP PO SCH (20:04)
[2020-08-31] MEDS: Atorvastatin Calcium 20 MG TAB PO SCH (20:04)
[2020-09-01] MEDS: methylPREDNISolone Sod Succ 40 MG VIAL IVP SCH ×4 (03:00→19:44)
[2020-09-01] MEDS: PROVENTIL INHALER 6.7 G (200 INHALATIONS) INH SCH ×5 (03:20→20:12)
[2020-09-01] MEDS: Guaifenesin DM 100-10/5 ML UDCUP PO PRN ×3 (04:22→20:12)
[2020-09-01] MEDS: Sildenafil Citrate 20 MG TAB PO SCH ×3 (05:14→23:42)
[2020-09-01] MEDS: HumaLOG 300 UNITS/3 ML VIAL SC PRN ×2 (05:26→23:43)
--- NOTE | 2020-09-01 05:30 | PDOC.FM ---
- Subjective Subjective: Patient reports he is feeling well today, denies difficulty breathing. Likes having the bipap on at night. - Objective Vital Signs & Weight: Vital Signs (12 hours) Temp Pulse Resp Pulse Ox 09/01/20 02:07 76 14 99 09/01/20 01:00 98.1 F 08/31/20 22:01 83 15 91 L 08/31/20 21:00 98.5 F 08/31/20 20:00 92 L Weight Admit Weight 90.265 kg Weight 87.09 kg Most Recent Monitor Data Heart Rate from ECG 93 NIBP 133/67 NIBP BP-Mean 89 Respiration from ECG 26 SpO2 89 I&O: 08/30/20 08/31/20 09/01/20 06:59 06:59 06:59 Intake Total 800 920 450 Output Total 50 Balance 750 920 450 Result Diagrams: 08/31/20 03:27 08/31/20 03:27 Phys Exam - Physical Examination Constitutional: NAD HEENT: moist MMs Neck: supple, full ROM Respiratory: no wheezing, clear to auscultation bilateral Cardiovascular: RRR, no significant murmur Gastrointestinal: soft, no distention 1+ pitting BLE Neurological: non-focal, moves all 4 limbs Psychiatric: normal affect Skin: no rash Dx/Plan (1) ESRD (end stage renal disease) on dialysis Code(s): N18.6 - END STAGE RENAL DISEASE; Z99.2 - DEPENDENCE ON RENAL DIALYSIS Status: Acute (2) Acute and chronic respiratory failure with hypoxia Code(s): J96.21 - ACUTE AND CHRONIC RESPIRATORY FAILURE WITH HYPOXIA Status: Acute (3) Acute on chronic diastolic (congestive) heart failure Code(s): I50.33 - ACUTE ON CHRONIC DIASTOLIC (CONGESTIVE) HEART FAILURE Status: Acute (4) COPD exacerbation Code(s): J44.1 - CHRONIC OBSTRUCTIVE PULMONARY DISEASE W (ACUTE) EXACERBATION Status: Acute (5) Anemia, normocytic normochromic Code(s): D64.9 - ANEMIA, UNSPECIFIED Status: Chronic (6) Anxiety and depression Code(s): F41.9 - ANXIETY DISORDER, UNSPECIFIED; F32.9 - MAJOR DEPRESSIVE DISORDER, SINGLE EPISODE, UNSPECIFIED Status: Chronic (7) Atrial fibrillation Code(s): I48.91 - UNSPECIFIED ATRIAL FIBRILLATION Status: Chronic Qualifiers: (8) BPH (benign prostatic hyperplasia) Code(s): N40.0 - BENIGN PROSTATIC HYPERPLASIA WITHOUT LOWER URINRY TRACT SYMP Status: Chronic Qualifiers: - Plan Plan: #Acute hypoxic respiratory failure likely 2/2 combination of acute on chronic COPD exacerbation, acute on chronic HFpEF exacerbation, and COVID PNA -CXR 08/28-extensive nodular/interstitial changes -BNP elevated at 930.5 on admission,repeat 08/28 960s -Dr. Weinberg consulted from the ED, continue HD per nephrology recs -patient on 4L O2NC at baseline, transitioned to BiPAP 08/28 as patient had increased WOB; transitioned to HFNC 08/29, used biPAP overnight as patient reports this is more comfortable, uses CPAP at night at home -Patient on 10mg prednisone qd chronically; continue 40mg methylprednisolone Q6H for stress-dose steroids in the setting of COVID pna -s/p convalescent plasma 08/24 -Doxycycline BID -Pulmonology consulted, appreciate recs; not a candidate for remdesivir 2/2 ESRD -COVID labs elevated -CM to assist with finding placement at rehab center that accepts COVID patients -Dietary consulted to assist with nutrition needs -Will work with RT to try to transition back to [place] today #Indeterminate Troponin -patient is an ESRD patient, has had elevated levels throughout the past several months -patient denies chest pain -trop x 3 remained indeterminate without becoming positive #ESRD on HD -Nephro following along, continue routine HD TTHSat #HFpEF exacerbation -elevated BNP, possibly exacerbation; repeat BNP 08/28 similar to BNP on admission -continue HD -Dr. Fowler is his HF physician #Afib -continue home meds -patient in NSR #Chronic Anemia -hgb 6.8 on 08/24; 2u pRBC given with HD per Dr. Weinberg; stable -will continue to monitor #Pulmonary HTN -continue home sildenafil #Deconditioning -patient to work with PT/OT DVTppx: Heparin TID Diet: HH, Renal high protein Dispo: Admission to [facility] for continued bedside dialysis; monitoring of respiratory status, CM to assist with placement at rehab center PCP: Dr. Mary; patient has reportedly fired Sound Code: DNI-Cardiac only Addendum - Attending - Attending Attestation Date/Time: 09/01/20 4671 I personally evaluated the patient and discussed the management with Dr. Marrufo. I agree with the History, Examination, Assessment and Plan documented above with any addition or exceptions noted below. HD today. Pulm hopes to be able to wean to [place] today. Continue COVID care.
[2020-09-01] MEDS: Doxycycline 100 MG CAP PO SCH ×2 (07:41→19:45)
[2020-09-01] MEDS: Heparin 5,000 UNITS/ML VIAL SC SCH ×3 (07:42→19:46)
[2020-09-01] MEDS: Amiodarone 200 MG TAB PO SCH (07:42)
[2020-09-01] MEDS: Pregabalin 25 MG CAP PO SCH (07:42)
[2020-09-01] MEDS: Multivitamin W/ Minerals 1 TAB PO SCH (07:42)
[2020-09-01] MEDS: guaiFENesin ER 600 MG TAB PO SCH ×2 (07:42→19:45)
[2020-09-01] MEDS: Magnesium Oxide 400 MG TAB PO SCH (07:42)
[2020-09-01] MEDS: Gabapentin 100 MG CAP PO SCH ×2 (07:42→19:44)
[2020-09-01] MEDS: Cholecalciferol 1,000 UNITS (25 MCG) TAB PO SCH (07:42)
[2020-09-01] MEDS: Fluticasone Propionate Nasal Spray 16 gm Bottle NASAL SCH (07:43)
[2020-09-01] MEDS: Nystatin Powder 15 GM BOT TOP SCH ×2 (07:43→19:45)
--- NOTE | 2020-09-01 11:06 | PRG ---
DATE OF SERVICE: 09/01/2020 SUBJECTIVE: The patient is in COVID isolation. OBJECTIVE: VITAL SIGNS: Temperature 98.1, pulse 85, respiratory rate 14, blood pressure 124/60. HEENT: Atraumatic, normocephalic. The patient is in isolation. LABORATORY DATA: Not done today. ASSESSMENT AND PLAN: 1. End-stage renal disease. Plan to have dialysis today and continue dialysis TTS as tolerated. 2. COVID-19 infection. 3. Hypertension. 4. Anemia. 5. Fluid overload. 6. Cardiorenal syndrome. I talked with the bedside nurse and hemodialysis nurse. Plan to have dialysis today. Fluid removal as tolerated. We will follow. Monitor cardiorespiratory status closely. Job ID: [id number]
[2020-09-01] MEDS ORDERED: Heparin 10,000 UNITS/ 10 ML VIAL ONE (13:44)
[2020-09-01] MEDS: Tamsulosin HCl 0.4 MG CAP PO SCH (19:44)
[2020-09-01] MEDS: Atorvastatin Calcium 20 MG TAB PO SCH (19:45)
[2020-09-01] MEDS: Zolpidem Tartrate 5 MG TAB PO PRN (19:45)
[2020-09-01] MEDS: Acetaminophen 325 MG TAB PO PRN (23:42)
[2020-09-02] MEDS: PROVENTIL INHALER 6.7 G (200 INHALATIONS) INH SCH ×6 (00:09→17:05)
[2020-09-02] MEDS: methylPREDNISolone Sod Succ 40 MG VIAL IVP SCH ×4 (04:03→20:32)
--- NOTE | 2020-09-02 05:32 | PDOC.FM ---
- Subjective Subjective: Patient doing well this morning on high flow. Discussed trying to wean his high flow, patient agreeable. Patient disappointed he will likely not be home for [facility] but is hopeful for [place]. - Objective Vital Signs & Weight: Vital Signs (12 hours) Temp Pulse Resp Pulse Ox 09/02/20 04:00 97.7 F 09/02/20 02:30 77 15 100 09/02/20 00:00 97.6 F 09/01/20 22:13 88 16 09/01/20 20:00 97.6 F 98 Weight Admit Weight 90.265 kg Weight 90.038 kg Most Recent Monitor Data Heart Rate from ECG 79 NIBP 131/66 NIBP BP-Mean 87 Respiration from ECG 13 SpO2 100 I&O: 08/31/20 09/01/20 09/02/20 06:59 06:59 06:59 Intake Total 920 800 450 Balance 920 800 450 Result Diagrams: 09/02/20 10:40 09/02/20 10:40 Phys Exam - Physical Examination Constitutional: NAD HEENT: moist MMs, sclera anicteric Neck: supple, full ROM Respiratory: clear to auscultation bilateral Cardiovascular: RRR, no significant murmur Gastrointestinal: soft, no distention 1+ pitting edema BLE Neurological: non-focal, moves all 4 limbs Psychiatric: normal affect Skin: no rash, normal turgor Dx/Plan (1) ESRD (end stage renal disease) on dialysis Code(s): N18.6 - END STAGE RENAL DISEASE; Z99.2 - DEPENDENCE ON RENAL DIALYSIS Status: Acute (2) Acute and chronic respiratory failure with hypoxia Code(s): J96.21 - ACUTE AND CHRONIC RESPIRATORY FAILURE WITH HYPOXIA Status: Acute (3) Acute on chronic diastolic (congestive) heart failure Code(s): I50.33 - ACUTE ON CHRONIC DIASTOLIC (CONGESTIVE) HEART FAILURE Status: Acute (4) COPD exacerbation Code(s): J44.1 - CHRONIC OBSTRUCTIVE PULMONARY DISEASE W (ACUTE) EXACERBATION Status: Acute (5) Anemia, normocytic normochromic Code(s): D64.9 - ANEMIA, UNSPECIFIED Status: Chronic (6) Anxiety and depression Code(s): F41.9 - ANXIETY DISORDER, UNSPECIFIED; F32.9 - MAJOR DEPRESSIVE DISORDER, SINGLE EPISODE, UNSPECIFIED Status: Chronic (7) Atrial fibrillation Code(s): I48.91 - UNSPECIFIED ATRIAL FIBRILLATION Status: Chronic Qualifiers: (8) BPH (benign prostatic hyperplasia) Code(s): N40.0 - BENIGN PROSTATIC HYPERPLASIA WITHOUT LOWER URINRY TRACT SYMP Status: Chronic Qualifiers: - Plan Plan: #Acute hypoxic respiratory failure likely 2/2 combination of acute on chronic COPD exacerbation, acute on chronic HFpEF exacerbation, and COVID PNA -CXR 08/28-extensive nodular/interstitial changes -BNP elevated at 930.5 on admission,repeat 08/28 960s -Dr. Weinberg consulted from the ED, continue HD per nephrology recs -patient on 4L O2NC at baseline -Patient on 10mg prednisone qd chronically; continue 40mg methylprednisolone Q6H for stress-dose steroids in the setting of COVID pna -s/p convalescent plasma 08/24 -Doxycycline BID -Pulmonology consulted, appreciate recs; not a candidate for remdesivir 2/2 ESRD -COVID labs elevated -CM to assist with finding placement at rehab center that accepts COVID patients -Dietary consulted to assist with nutrition needs -Will work with RT to try to transition back to [place], patient tolerating HFNC this morning and prefers bipap at night to sleep #Indeterminate Troponin -patient is an ESRD patient, has had elevated levels throughout the past several months -patient denies chest pain -trop x 3 remained indeterminate without becoming positive #ESRD on HD -Nephro following along, continue routine HD TTHSat #HFpEF exacerbation -elevated BNP, possibly exacerbation; repeat BNP 08/28 similar to BNP on admiss ion -continue HD -Dr. Fowler is his HF physician #Afib -continue home meds -patient in NSR #Chronic Anemia -hgb 6.8 on 08/24; 2u pRBC given with HD per Dr. Weinberg; stable -will continue to monitor #Pulmonary HTN -continue home sildenafil #Deconditioning -patient to work with PT/OT DVTppx: Heparin TID Diet: HH, Renal high protein Dispo: Admission to [facility] for continued bedside dialysis; monitoring of respiratory status, CM to assist with placement at rehab center PCP: Dr. Mary; patient has reportedly fired Sound Code: DNI-Cardiac only Addendum - Attending - Attending Attestation Date/Time: 09/02/20 1234 I personally evaluated the patient and discussed the management with Dr. Marrufo. I agree with the History, Examination, Assessment and Plan documented above with any addition or exceptions noted below. Patient here for COVID in setting of ESRD and COPD. Pulm on board. Continue supportive care. Hopeful to wean from HFNC.
[2020-09-02] MEDS: Sildenafil Citrate 20 MG TAB PO SCH ×3 (06:28→20:30)
[2020-09-02] MEDS: Acetaminophen 325 MG TAB PO PRN ×4 (07:03→20:31)
[2020-09-02] MEDS: Heparin 5,000 UNITS/ML VIAL SC SCH ×3 (10:08→20:34)
[2020-09-02] MEDS: Doxycycline 100 MG CAP PO SCH ×2 (10:08→20:23)
[2020-09-02] MEDS: Multivitamin W/ Minerals 1 TAB PO SCH (10:08)
[2020-09-02] MEDS: Magnesium Oxide 400 MG TAB PO SCH (10:08)
[2020-09-02] MEDS: guaiFENesin ER 600 MG TAB PO SCH ×2 (10:08→20:30)
[2020-09-02] MEDS: Sulfameth/Trimethoprim SS 400-80MG TAB PO SCH (10:09)
[2020-09-02] MEDS: Guaifenesin DM 100-10/5 ML UDCUP PO PRN ×3 (10:10→20:23)
[2020-09-02] MEDS: Gabapentin 100 MG CAP PO SCH ×2 (10:11→20:23)
[2020-09-02] MEDS: Pregabalin 25 MG CAP PO SCH (10:11)
[2020-09-02] MEDS: Amiodarone 200 MG TAB PO SCH (10:11)
[2020-09-02] MEDS: Cholecalciferol 1,000 UNITS (25 MCG) TAB PO SCH (10:12)
[2020-09-02] MEDS: Nystatin Powder 15 GM BOT TOP SCH ×2 (10:13→20:36)
[2020-09-02] MEDS: Fluticasone Propionate Nasal Spray 16 gm Bottle NASAL SCH (10:13)
[2020-09-02 10:59] LABS: #Lymphocytes 0.2 thou/uL (1.20-3.40); #Monocytes 0.4 thou/uL (0.11-0.59); #Neutrophils 9.5 thou/uL (1.40-6.50); %Basophils 0.1 % (0.0-1.0); %Eosinophils 0.1 % (0.0-10.0); %Lymphocytes 1.5 % (21.0-51.0); %Monocytes 3.5 % (0.0-10.0); %Neutrophils 94.9 % (42.0-75.0); Hemoglobin 8.6 g/dL (14.0-18.0); Mean Corpuscular HGB CONC 32.1 g/dL (32.0-36.0); Mean Corpuscular Hemoglobin 29.7 pg (27.0-31.0); Mean Corpuscular Volume 92.3 fL (78.0-98.0); Mean Platelet Volume 8.5 fL (7.4-10.4); Platelet Count 187 thou/uL (130-400); RBC Distribution Width 15.7 % (11.5-14.5)
[2020-09-02 11:14] LABS: Anion Gap 17 mmol/L (10-20); BUN (Urea Nitrogen) 62 mg/dL (8.4-25.7); CRP (Inflammatory) 1.59 mg/dL (= or < 0.5); Calc. Creatinine Clearance 27 mL/min (70-130); Calcium 7.5 mg/dL (7.8-10.44); Carbon Dioxide 24 mmol/L (23-31); Chloride 99 mmol/L (98-107); Estimated GFR-MDRD 22; Glucose 300 mg/dL (83-110); Potassium 4.7 mmol/L (3.5-5.1); Sodium 135 mmol/L (136-145)
[2020-09-02] MEDS: HumaLOG 300 UNITS/3 ML VIAL SC PRN ×3 (11:44→20:45)
--- NOTE | 2020-09-02 14:11 | PRG ---
DATE OF SERVICE: 09/02/2020 SUBJECTIVE: Mr. Mart is afebrile, heart rate is 90, respiratory rates in the teens. He is still on high-flow. Oximetry this morning was 100%. I have asked Respiratory Therapy to try to wean down his flows. OBJECTIVE: LUNGS: Clear. HEART: Regular rhythm. ABDOMEN: Soft. IMPRESSION: COVID-19 pneumonia on top of chronic obstructive pulmonary disease, diastolic heart failure. He is now in the hospital 10 days. He is not getting worse clinically and his work of breathing is close to his baseline. We will continue to see intermittently. Please call over the weekend should his functional status decline. Job ID: [id number]
--- NOTE | 2020-09-02 17:03 | PRG ---
DATE OF SERVICE: 09/02/2020 SUBJECTIVE: The patient is seen at the bedside. Reports breathing slightly better. No distress reported and he is able to go down on his oxygen requirement. OBJECTIVE: GENERAL: Well-built male, in mild distress. VITAL SIGNS: Temperature 96.3, pulse 83, respiratory rate 14, blood pressure 141/65. HEENT: On oxygen. MUSCULOSKELETAL: 1+ edema. NEUROLOGIC: Alert and awake. CARDIOVASCULAR: S1 and S2 heard. LABORATORY DATA: Potassium 4.7, BUN is 62, and creatinine is 2.81. ASSESSMENT AND PLAN: 1. End-stage renal disease. We will continue on dialysis. 2. COVID-19 infection. 3. Hypertension. 4. Anemia. 5. Fluid overload. 6. Cardiorenal syndrome. Plan to have fluid removal as tolerated. We will continue dialysis TTS as tolerated. Job ID: [id number]
[2020-09-02] MEDS: Tamsulosin HCl 0.4 MG CAP PO SCH (20:30)
[2020-09-02] MEDS: Atorvastatin Calcium 20 MG TAB PO SCH (20:30)
[2020-09-02] MEDS: Zolpidem Tartrate 5 MG TAB PO PRN (20:48)
[2020-09-03] MEDS: PROVENTIL INHALER 6.7 G (200 INHALATIONS) INH SCH ×6 (00:33→22:25)
[2020-09-03] MEDS: methylPREDNISolone Sod Succ 40 MG VIAL IVP SCH ×4 (03:21→20:27)
--- NOTE | 2020-09-03 05:29 | PDOC.FM ---
- Subjective Subjective: Patient doing well this morning, denies dyspnea. Discussed plans to continue to try to wean HFNC, patient agreeable. - Objective Vital Signs & Weight: Vital Signs (12 hours) Temp Pulse Resp Pulse Ox 09/03/20 02:00 80 13 100 09/02/20 20:00 97.2 F L 99 Weight Admit Weight 90.265 kg Weight 89.63 kg Most Recent Monitor Data Heart Rate from ECG 85 NIBP 115/72 NIBP BP-Mean 86 Respiration from ECG 16 SpO2 100 I&O: 09/01/20 09/02/20 09/03/20 06:59 06:59 06:59 Intake Total 800 850 490 Balance 800 850 490 Result Diagrams: 09/03/20 07:00 09/03/20 07:00 Phys Exam - Physical Examination Constitutional: NAD HEENT: moist MMs, sclera anicteric Neck: supple, full ROM Crackles CHRIS and LLL, wheezes RUL and RLL Cardiovascular: RRR, no significant murmur Gastrointestinal: soft, no distention trace pitting edema BLE Neurological: moves all 4 limbs Psychiatric: normal affect Skin: no rash Dx/Plan (1) ESRD (end stage renal disease) on dialysis Code(s): N18.6 - END STAGE RENAL DISEASE; Z99.2 - DEPENDENCE ON RENAL DIALYSIS Status: Acute (2) Acute and chronic respiratory failure with hypoxia Code(s): J96.21 - ACUTE AND CHRONIC RESPIRATORY FAILURE WITH HYPOXIA Status: Acute (3) Acute on chronic diastolic (congestive) heart failure Code(s): I50.33 - ACUTE ON CHRONIC DIASTOLIC (CONGESTIVE) HEART FAILURE Status: Acute (4) COPD exacerbation Code(s): J44.1 - CHRONIC OBSTRUCTIVE PULMONARY DISEASE W (ACUTE) EXACERBATION Status: Acute (5) Anemia, normocytic normochromic Code(s): D64.9 - ANEMIA, UNSPECIFIED Status: Chronic (6) Anxiety and depression Code(s): F41.9 - ANXIETY DISORDER, UNSPECIFIED; F32.9 - MAJOR DEPRESSIVE DISORDER, SINGLE EPISODE, UNSPECIFIED Status: Chronic (7) Atrial fibrillation Code(s): I48.91 - UNSPECIFIED ATRIAL FIBRILLATION Status: Chronic Qualifiers: (8) BPH (benign prostatic hyperplasia) Code(s): N40.0 - BENIGN PROSTATIC HYPERPLASIA WITHOUT LOWER URINRY TRACT SYMP Status: Chronic Qualifiers: - Plan Plan: #Acute hypoxic respiratory failure likely 2/2 combination of acute on chronic COPD exacerbation, acute on chronic HFpEF exacerbation, and COVID PNA -CXR 08/28-extensive nodular/interstitial changes -BNP elevated at 930.5 on admission,repeat 08/28 960s -Dr. Weinberg consulted from the ED, continue HD per nephrology recs -patient on 4L O2NC at baseline -Patient on 10mg prednisone qd chronically; continue 40mg methylprednisolone Q6H for stress-dose steroids in the setting of COVID pna -s/p convalescent plasma 08/24 -Doxycycline BID -Pulmonology consulted, appreciate recs; not a candidate for remdesivir 2/2 ESRD -COVID labs elevated -CM to assist with finding placement at rehab center that accepts COVID patients -Dietary consulted to assist with nutrition needs -Will work with RT to try to transition back to [place], patient tolerated HFNC throughout the day yesterday and prefers bipap at night to sleep #Indeterminate Troponin -patient is an ESRD patient, has had elevated levels throughout the past several months -patient denies chest pain -trop x 3 remained indeterminate without becoming positive #ESRD on HD -Nephro following along, continue routine HD TTHSat #HFpEF exacerbation -elevated BNP, possibly exacerbation; repeat BNP 08/28 similar to BNP on admission -continue HD -Dr. Fowler is his HF physician #Afib -continue home meds -patient in NSR #Chronic Anemia -hgb 6.8 on 08/24; 2u pRBC given with HD per Dr. Weinberg; stable -will continue to monitor #Pulmonary HTN -continue home sildenafil #Deconditioning -patient to work with PT/OT DVTppx: Heparin TID Diet: HH, Renal high protein Dispo: Admission to [facility] for continued bedside dialysis; monitoring of re spiratory status, CM to assist with placement at rehab center PCP: Dr. Mary; patient has reportedly fired Sound Code: DNI-DNR Addendum - Attending - Attending Attestation Date/Time: 09/03/20 1200 I personally evaluated the patient and discussed the management with Dr. Marrufo I agree with the History, Examination, Assessment and Plan documented above with any addition or exceptions noted below.
[2020-09-03] MEDS: Sildenafil Citrate 20 MG TAB PO SCH ×3 (06:36→20:25)
[2020-09-03] MEDS: HumaLOG 300 UNITS/3 ML VIAL SC PRN ×3 (06:40→20:43)
[2020-09-03 07:25] LABS: #Lymphocytes 0.2 thou/uL (1.20-3.40); #Monocytes 0.3 thou/uL (0.11-0.59); #Neutrophils 10.8 thou/uL (1.40-6.50); %Lymphocytes 1.9 % (21.0-51.0); %Monocytes 2.7 % (0.0-10.0); %Neutrophils 95.4 % (42.0-75.0); Hemoglobin 8.3 g/dL (14.0-18.0); Mean Corpuscular HGB CONC 31.8 g/dL (32.0-36.0); Mean Corpuscular Hemoglobin 29.2 pg (27.0-31.0); Mean Platelet Volume 8.8 fL (7.4-10.4); Platelet Count 200 thou/uL (130-400); RBC Distribution Width 15.8 % (11.5-14.5); Red Blood Cell (RBC) Count 2.84 mill/uL (4.70-6.10); White Blood Cell (WBC) Count 11.3 thou/uL (4.8-10.8)
[2020-09-03 07:43] LABS: Anion Gap 16 mmol/L (10-20); BUN (Urea Nitrogen) 78 mg/dL (8.4-25.7); Calc. Creatinine Clearance 24 mL/min (70-130); Calcium 7.8 mg/dL (7.8-10.44); Carbon Dioxide 26 mmol/L (23-31); Chloride 98 mmol/L (98-107); Estimated GFR-MDRD 19; Glucose 171 mg/dL (83-110); Potassium 5.1 mmol/L (3.5-5.1); Sodium 135 mmol/L (136-145)
[2020-09-03] MEDS: Cholecalciferol 1,000 UNITS (25 MCG) TAB PO SCH (09:17)
[2020-09-03] MEDS: Magnesium Oxide 400 MG TAB PO SCH (09:17)
[2020-09-03] MEDS: guaiFENesin ER 600 MG TAB PO SCH ×2 (09:17→20:24)
[2020-09-03] MEDS: Multivitamin W/ Minerals 1 TAB PO SCH (09:17)
[2020-09-03] MEDS: Doxycycline 100 MG CAP PO SCH ×2 (09:17→20:26)
[2020-09-03] MEDS: Amiodarone 200 MG TAB PO SCH (09:17)
[2020-09-03] MEDS: Gabapentin 100 MG CAP PO SCH ×2 (09:18→20:26)
[2020-09-03] MEDS: Heparin 5,000 UNITS/ML VIAL SC SCH ×3 (09:18→20:28)
[2020-09-03] MEDS: Pregabalin 25 MG CAP PO SCH (09:18)
[2020-09-03] MEDS: Fluticasone Propionate Nasal Spray 16 gm Bottle NASAL SCH (09:18)
[2020-09-03] MEDS: Nystatin Powder 15 GM BOT TOP SCH ×2 (09:19→22:26)
--- NOTE | 2020-09-03 13:18 | PRG ---
DATE OF SERVICE: 09/03/2020 SUBJECTIVE: The patient continues to receive high-flow nasal cannula 40 L at 60%. He is using BiPAP at night and on a p.r.n. basis during the day. He has received dialysis for his underlying renal failure. OBJECTIVE: VITAL SIGNS: Blood pressure 134/68, heart rate is 79, and saturation 94%. GENERAL: He is awake and alert, under mild respiratory distress. NECK: There is no JVD. Neck size is enlarged. LUNGS: Coarse rhonchi bilaterally. HEART: Regular rate and rhythm. No murmurs heard. ABDOMEN: Obese. There is no organomegaly. EXTREMITIES: He has 1+ edema. There is no cords or tenderness. LABORATORY DATA: White count 11,300, hemoglobin is 8.3 with hematocrit of 26.1, and platelet count of 200,000. Chemistries include sodium 135, potassium 5.1, chloride 98, CO2 is 26, BUN 78, and creatinine 3.2. Blood sugars ranged from 160 to 300. IMPRESSION: 1. COVID pneumonia, on high-flow nasal cannula. 2. End-stage renal disease, on dialysis. PLAN: We will continue with current therapies. At this point, his oxygenation is adequate, although certainly not ideal. We would not electively intubate him until his status were significantly worsened at this point. Job ID: [id number]
[2020-09-03] MEDS: EPOETIN ALFA-EPBX (ESRD) 10,000 UNIT/ML VIAL SC SCH (13:22)
[2020-09-03] MEDS: Guaifenesin DM 100-10/5 ML UDCUP PO PRN ×2 (14:25→20:33)
[2020-09-03] MEDS ORDERED: Heparin 10,000 UNITS/ 10 ML VIAL ONE (14:59)
--- NOTE | 2020-09-03 16:33 | PRG ---
DATE OF SERVICE: 09/03/2020 SUBJECTIVE: Patient was seen and examined at bedside and overnight events noted. Patient denies any shortness of breath or chest pain or palpitation. No history of nausea or vomiting or diarrhea or fever or chills or cramps. The patient is in COVID isolation. OBJECTIVE: GENERAL: This is a well-built male, COVID isolation, in no acute distress. VITAL SIGNS: Temperature 97.8. Heart rate 90. Respiratory rate 20. Blood pressure 124/67. HEENT: Atraumatic, normocephalic. Oral mucosa is moist NECK: Supple. CARDIOVASCULAR: S1, S2 heard. Rate and rhythm regular. RESPIRATORY: Clear to auscultation. GASTROINTESTINAL: Abdomen is soft. MUSCULOSKELETAL: No tenderness. No edema. DERMATOLOGIC: No skin rash. NEUROLOGIC: Alert and awake and oriented X3. No focal neurologic deficits. Moving all the extremities. PSYCHIATRIC: Mood and affect normal. LABORATORY DATA: Potassium is 5.1, BUN is 78, and creatinine is 3.1. ASSESSMENT AND PLAN: 1. End-stage renal disease. We will continue dialysis; Saturday, , and Saturday. We will have dialysis today. 2. COVID-19. 3. Hypertension. 4. Anemia. 5. Fluid overload. 6. Cardiorenal syndrome. PLAN: To have dialysis as tolerated. Job ID: [id number]
[2020-09-03] MEDS: Zolpidem Tartrate 5 MG TAB PO PRN (20:24)
[2020-09-03] MEDS: Acetaminophen 325 MG TAB PO PRN (20:24)
[2020-09-03] MEDS: Atorvastatin Calcium 20 MG TAB PO SCH (20:24)
[2020-09-03] MEDS: Tamsulosin HCl 0.4 MG CAP PO SCH (20:26)
[2020-09-04] MEDS: Acetaminophen 325 MG TAB PO PRN ×2 (00:34→19:52)
[2020-09-04] MEDS: Guaifenesin DM 100-10/5 ML UDCUP PO PRN ×3 (00:34→16:16)
[2020-09-04] MEDS: PROVENTIL INHALER 6.7 G (200 INHALATIONS) INH SCH ×6 (00:35→21:43)
[2020-09-04] MEDS: methylPREDNISolone Sod Succ 40 MG VIAL IVP SCH ×4 (03:32→19:54)
[2020-09-04 03:48] LABS: #Lymphocytes 0.2 thou/uL (1.20-3.40); #Monocytes 0.4 thou/uL (0.11-0.59); #Neutrophils 10.1 thou/uL (1.40-6.50); %Eosinophils 0.1 % (0.0-10.0); %Lymphocytes 2.1 % (21.0-51.0); %Monocytes 3.6 % (0.0-10.0); %Neutrophils 94.3 % (42.0-75.0); Hemoglobin 7.8 g/dL (14.0-18.0); Mean Corpuscular HGB CONC 31.3 g/dL (32.0-36.0); Mean Corpuscular Hemoglobin 28.9 pg (27.0-31.0); Mean Corpuscular Volume 92.3 fL (78.0-98.0); Mean Platelet Volume 9.1 fL (7.4-10.4); Platelet Count 187 thou/uL (130-400); RBC Distribution Width 16.2 % (11.5-14.5); Red Blood Cell (RBC) Count 2.71 mill/uL (4.70-6.10); White Blood Cell (WBC) Count 10.7 thou/uL (4.8-10.8)
[2020-09-04 04:03] LABS: Anion Gap 16 mmol/L (10-20); BUN (Urea Nitrogen) 54 mg/dL (8.4-25.7); Calc. Creatinine Clearance 31 mL/min (70-130); Calcium 7.5 mg/dL (7.8-10.44); Carbon Dioxide 26 mmol/L (23-31); Chloride 99 mmol/L (98-107); Estimated GFR-MDRD 26; Glucose 216 mg/dL (83-110); Potassium 4.2 mmol/L (3.5-5.1); Sodium 137 mmol/L (136-145)
--- NOTE | 2020-09-04 05:18 | PDOC.FM ---
- Subjective Subjective: Patient doing well this morning, tolerates bipap at night and HFNC during the day. Eating well. Tolerated HD well yesterday. - Objective Vital Signs & Weight: Vital Signs (12 hours) Temp Pulse Resp Pulse Ox 09/04/20 02:00 79 14 97 09/03/20 20:00 97.2 F L 96 Weight Admit Weight 90.265 kg Weight 89.63 kg Most Recent Monitor Data Heart Rate from ECG 86 NIBP 123/63 NIBP BP-Mean 83 Respiration from ECG 14 SpO2 98 I&O: 09/02/20 09/03/20 09/04/20 06:59 06:59 06:59 Intake Total 850 730 680 Balance 850 730 680 Result Diagrams: 09/04/20 03:18 09/04/20 03:18 Phys Exam - Physical Examination Constitutional: NAD HEENT: moist MMs, sclera anicteric Neck: supple, full ROM decreased breath sounds throughout Cardiovascular: RRR, no significant murmur Gastrointestinal: soft, no distention trace edema BLE Neurological: non-focal, moves all 4 limbs Psychiatric: normal affect Skin: no rash Dx/Plan (1) ESRD (end stage renal disease) on dialysis Code(s): N18.6 - END STAGE RENAL DISEASE; Z99.2 - DEPENDENCE ON RENAL DIALYSIS Status: Acute (2) Acute and chronic respiratory failure with hypoxia Code(s): J96.21 - ACUTE AND CHRONIC RESPIRATORY FAILURE WITH HYPOXIA Status: Acute (3) Acute on chronic diastolic (congestive) heart failure Code(s): I50.33 - ACUTE ON CHRONIC DIASTOLIC (CONGESTIVE) HEART FAILURE Status: Acute (4) COPD exacerbation Code(s): J44.1 - CHRONIC OBSTRUCTIVE PULMONARY DISEASE W (ACUTE) EXACERBATION Status: Acute (5) Anemia, normocytic normochromic Code(s): D64.9 - ANEMIA, UNSPECIFIED Status: Chronic (6) Anxiety and depression Code(s): F41.9 - ANXIETY DISORDER, UNSPECIFIED; F32.9 - MAJOR DEPRESSIVE DISORDER, SINGLE EPISODE, UNSPECIFIED Status: Chronic (7) Atrial fibrillation Code(s): I48.91 - UNSPECIFIED ATRIAL FIBRILLATION Status: Chronic Qualifiers: (8) BPH (benign prostatic hyperplasia) Code(s): N40.0 - BENIGN PROSTATIC HYPERPLASIA WITHOUT LOWER URINRY TRACT SYMP Status: Chronic Qualifiers: - Plan Plan: #Acute hypoxic respiratory failure likely 2/2 combination of acute on chronic COPD exacerbation, acute on chronic HFpEF exacerbation, and COVID PNA -CXR 08/28-extensive nodular/interstitial changes -BNP elevated at 930.5 on admission,repeat 08/28 960s -Dr. Weinberg consulted from the ED, continue HD per nephrology recs -patient on 4L O2NC at baseline -Patient on 10mg prednisone qd chronically; continue 40mg methylprednisolone Q6H for stress-dose steroids in the setting of COVID pna -s/p convalescent plasma 08/24 -Doxycycline BID -Pulmonology consulted, appreciate recs; not a candidate for remdesivir 2/2 ESRD -COVID labs elevated -CM to assist with finding placement at rehab center that accepts COVID patients -Dietary consulted to assist with nutrition needs -Will work with RT to try to transition back to [place], patient tolerated HFNC throughout the day yesterday and prefers bipap at night to sleep -today is day 16 since symptom onset, day 13 since +COVID #Indeterminate Troponin -patient is an ESRD patient, has had elevated levels throughout the past several months -patient denies chest pain -trop x 3 remained indeterminate without becoming positive #ESRD on HD -Nephro following along, continue routine HD TTHSat #HFpEF -elevated BNP, possibly exacerbation; repeat BNP 08/28 similar to BNP on admission; likely chronically elevated -continue HD -Dr. Fowler is his HF physician #Afib -continue home meds -patient in NSR #Chronic Anemia -hgb 6.8 on 08/24; 2u pRBC given with HD per Dr. Weinberg; stable -will continue to monitor #Pulmonary HTN -continue home sildenafil #Deconditioning -patient to work with PT/OT DVTppx: Heparin TID Diet: HH, Renal high protein Dispo: Admission to [facility] for continued bedside dialysis; monitoring of respiratory status, CM to assist with placement at rehab center when ready for d/c PCP: Dr. Mary; patient has reportedly fired Sound Code: DNI-DNR Addendum - Attending - Attending Attestation Date/Time: 09/04/20 1420 I personally evaluated the patient and discussed the management with Dr. Marrufo I agree with the History, Examination, Assessment and Plan documented above with any addition or exceptions noted below. note marked hyperglycemia presumed secondary to steroid cover with basal insulin for now rec check HA1c. Patient remain HFNC wean as tolerated.
[2020-09-04] MEDS: Sildenafil Citrate 20 MG TAB PO SCH ×3 (06:16→22:53)
[2020-09-04] MEDS: HumaLOG 300 UNITS/3 ML VIAL SC PRN ×4 (06:24→19:58)
[2020-09-04 09:05] LABS: Hemoglobin A1c 5.3 % (4.0-6.0)
[2020-09-04] MEDS: Multivitamin W/ Minerals 1 TAB PO SCH (09:36)
[2020-09-04] MEDS: Doxycycline 100 MG CAP PO SCH ×2 (09:36→19:54)
[2020-09-04] MEDS: Magnesium Oxide 400 MG TAB PO SCH (09:36)
[2020-09-04] MEDS: guaiFENesin ER 600 MG TAB PO SCH ×2 (09:36→19:54)
[2020-09-04] MEDS: Gabapentin 100 MG CAP PO SCH ×2 (09:36→19:55)
[2020-09-04] MEDS: Cholecalciferol 1,000 UNITS (25 MCG) TAB PO SCH (09:36)
[2020-09-04] MEDS: Amiodarone 200 MG TAB PO SCH (09:37)
[2020-09-04] MEDS: Heparin 5,000 UNITS/ML VIAL SC SCH ×3 (09:37→19:56)
[2020-09-04] MEDS: Fluticasone Propionate Nasal Spray 16 gm Bottle NASAL SCH (09:37)
[2020-09-04] MEDS: Pregabalin 25 MG CAP PO SCH (09:37)
[2020-09-04] MEDS: Insulin Glargine 4 UNITS in Pre-Filled Syringe 1 EACH SC SCH (09:38)
[2020-09-04] MEDS: Nystatin Powder 15 GM BOT TOP SCH ×2 (09:38→19:55)
--- NOTE | 2020-09-04 12:20 | PRG ---
DATE OF SERVICE: 09/04/2020 SUBJECTIVE: Mr. Mart continues to alternate between BiPAP pressure 14/7 with FiO2 of 0.4 and high-flow nasal cannula 40 L at 70%. Earlier today, he was actually only requiring FiO2 of 50 by high-flow nasal cannula. OBJECTIVE: LUNGS: Show coarse rhonchi. He is moderately labored, but no evidence of impending respiratory failure. HEART: Regular rate and rhythm. ABDOMEN: Soft. EXTREMITIES: He has 1+ edema. LABORATORY DATA: There is no x-ray today. White count 10,700. Hemoglobin is 7.8, this is down from the trend in the last few days, where he was in the mid 8. Hematocrit is 25. Platelet count 187,000. Chemistry includes sodium 137; potassium 4.2; chloride 99; CO2 is 26; BUN 54; creatinine 2.4, this is down from 3.1. IMPRESSION: COVID pneumonia, thus far off ventilatory support, but still on high-flow nasal cannula. PLAN: We will continue current therapies. There is no evidence that he needs intubation. Unfortunately, he is in that transition zone where we expect a fairly long and slow recovery. Job ID: [id number]
--- NOTE | 2020-09-04 15:17 | PRG ---
DATE OF SERVICE: 09/04/2020 SUBJECTIVE: The patient in COVID isolation. The patient's swelling seems to be better per the bedside nurse and had dialysis today. OBJECTIVE: GENERAL: This is a well-built male, in no apparent distress. VITAL SIGNS: Temperature 97.3, pulse 91, respiratory rate , and blood pressure 117/51. The patient on COVID isolation. LABORATORY DATA: Potassium is 4.2, BUN is 54, and creatinine is 2.4. ASSESSMENT AND PLAN: 1. End-stage renal disease. We will continue dialysis on Saturday, , and Saturday. Had dialysis yesterday, tolerated well. 2. Edema, controlled. 3. History of hypertension. 4. Anemia of chronic disease. Plan to have dialysis Saturday, , and Saturday as tolerated. Case discussed with the bedside nurse. Job ID: [id number]
[2020-09-04] MEDS: Zolpidem Tartrate 5 MG TAB PO PRN (19:52)
[2020-09-04] MEDS: Tamsulosin HCl 0.4 MG CAP PO SCH (19:55)
[2020-09-04] MEDS: Atorvastatin Calcium 20 MG TAB PO SCH (19:55)
[2020-09-05] MEDS: Guaifenesin DM 100-10/5 ML UDCUP PO PRN ×4 (00:09→20:51)
[2020-09-05] MEDS: PROVENTIL INHALER 6.7 G (200 INHALATIONS) INH SCH ×7 (00:09→23:33)
[2020-09-05 03:06] LABS: #Lymphocytes 0.2 thou/uL (1.20-3.40); #Monocytes 0.3 thou/uL (0.11-0.59); #Neutrophils 12.4 thou/uL (1.40-6.50); %Eosinophils 0.1 % (0.0-10.0); %Lymphocytes 1.6 % (21.0-51.0); %Monocytes 2.4 % (0.0-10.0); %Neutrophils 95.9 % (42.0-75.0); Hemoglobin 8.4 g/dL (14.0-18.0); Mean Corpuscular HGB CONC 32.3 g/dL (32.0-36.0); Mean Corpuscular Hemoglobin 29.6 pg (27.0-31.0); Mean Corpuscular Volume 91.8 fL (78.0-98.0); Mean Platelet Volume 9.2 fL (7.4-10.4); Platelet Count 193 thou/uL (130-400); RBC Distribution Width 16.2 % (11.5-14.5); Red Blood Cell (RBC) Count 2.82 mill/uL (4.70-6.10)
[2020-09-05 03:30] LABS: Anion Gap 15 mmol/L (10-20); BUN (Urea Nitrogen) 72 mg/dL (8.4-25.7); Calc. Creatinine Clearance 26 mL/min (70-130); Calcium 7.6 mg/dL (7.8-10.44); Carbon Dioxide 27 mmol/L (23-31); Chloride 97 mmol/L (98-107); Estimated GFR-MDRD 21; Glucose 171 mg/dL (83-110); Potassium 4.6 mmol/L (3.5-5.1); Sodium 134 mmol/L (136-145)
[2020-09-05] MEDS: Acetaminophen 325 MG TAB PO PRN ×2 (03:46→20:22)
[2020-09-05] MEDS: methylPREDNISolone Sod Succ 40 MG VIAL IVP SCH ×2 (03:47→08:10)
[2020-09-05] MEDS: Sildenafil Citrate 20 MG TAB PO SCH ×3 (05:38→21:07)
--- NOTE | 2020-09-05 06:12 | PDOC.FM ---
- Subjective Subjective: He says his breathing is unchanged. He feels extremely weak and deconditioned. He says his appetite is fine, but he does not like the food here. He is getting good sleep. - Objective MAR Reviewed: Yes Vital Signs & Weight: Vital Signs (12 hours) Temp Pulse Ox 09/05/20 04:00 97.3 F L 09/05/20 02:00 97 09/05/20 00:00 98.4 F 09/04/20 20:00 97.1 F L 94 L Weight Admit Weight 90.265 kg Weight 86.6 kg Most Recent Monitor Data Heart Rate from ECG 87 NIBP 130/68 NIBP BP-Mean 88 Respiration from ECG 20 SpO2 94 I&O: 09/03/20 09/04/20 09/05/20 06:59 06:59 06:59 Intake Total 940 453 1478 Balance 467 823 3266 Result Diagrams: 09/05/20 02:52 09/05/20 02:52 Phys Exam - Physical Examination Constitutional: NAD HEENT: moist MMs, sclera anicteric Neck: no nodes, no JVD Respiratory: no wheezing, no rales, no rhonchi Decreased breathe sounds Cardiovascular: RRR, no significant murmur Gastrointestinal: positive bowel sounds Musculoskeletal: pulses present 2+ pitting edema in his legs Neurological: moves all 4 limbs Psychiatric: normal affect Skin: no rash, normal turgor Dx/Plan (1) COVID-19 Code(s): U07.1 - COVID-19 Status: Acute (2) Pulmonary HTN Code(s): I27.20 - PULMONARY HYPERTENSION, UNSPECIFIED Status: Acute (3) ESRD (end stage renal disease) on dialysis Code(s): N18.6 - END STAGE RENAL DISEASE; Z99.2 - DEPENDENCE ON RENAL DIALYSIS Status: Acute (4) Acute and chronic respiratory failure with hypoxia Code(s): J96.21 - ACUTE AND CHRONIC RESPIRATORY FAILURE WITH HYPOXIA Status: Acute (5) Acute on chronic diastolic (congestive) heart failure Code(s): I50.33 - ACUTE ON CHRONIC DIASTOLIC (CONGESTIVE) HEART FAILURE Sta tus: Acute (6) COPD exacerbation Code(s): J44.1 - CHRONIC OBSTRUCTIVE PULMONARY DISEASE W (ACUTE) EXACERBATION Status: Acute (7) Anemia, normocytic normochromic Code(s): D64.9 - ANEMIA, UNSPECIFIED Status: Chronic (8) Atrial fibrillation Code(s): I48.91 - UNSPECIFIED ATRIAL FIBRILLATION Status: Chronic Qualifiers: (9) HTN (hypertension) Code(s): I10 - ESSENTIAL (PRIMARY) HYPERTENSION Status: Chronic Qualifiers: (10) BRAD (obstructive sleep apnea) Code(s): G47.33 - OBSTRUCTIVE SLEEP APNEA (ADULT) (PEDIATRIC) Status: Chronic (11) Physical deconditioning Code(s): R53.81 - OTHER MALAISE Status: Chronic - Plan Plan: 1. Acute hypoxic respiratory failure likely 2/2 combination of acute on chronic COPD exacerbation, acute on chronic HFpEF exacerbation, and COVID PNA -CXR 08/28-extensive nodular/interstitial changes -BNP elevated at 930.5 on admission,repeat 08/28 960s -Dr. Weinberg consulted from the ED, continue HD per nephrology recs- // -patient on 4L O2NC at baseline -Patient on 10mg prednisone qd chronically; continue 40mg methylprednisolone Q6H for stress-dose steroids in the setting of COVID pna -s/p convalescent plasma 08/24 -Doxycycline BID- Started 08/24 -Pulmonology consulted, appreciate recs; not a candidate for remdesivir 2/2 ESRD -COVID labs elevated -CM to assist with finding placement at rehab center that accepts COVID patients -Dietary consulted to assist with nutrition needs -Will work with RT to try to transition back to [place], patient tolerating HFNC throughout the day and prefers bipap at night to sleep -today is day 17 since symptom onset, day 14 since +COVID 2. Indeterminate Troponin -patient is an ESRD patient, has had elevated levels throughout the past several months -patient denies chest pain -trop x 3 remained indeterminate without becoming positive 4. ESRD on HD -Nephro following along, continue routine HD TTHSat 5. HFpEF -elevated BNP, possibly exacerbation; repeat BNP 08/28 similar to BNP on admission; likely chronically elevated -continue HD -Dr. Fowler is his HF physician -Monitor I&O 6. Afib -continue home meds -patient in NSR 7. Chronic Anemia- Stable -Hgb 6.8 on 08/24; 2u pRBC given with HD per Dr. Weinberg; stable -will continue to monitor 8. Pulmonary HTN -continue home sildenafil 9. Deconditioning -patient to work with PT/OT 10. Infection of Prosthesis -On chronic Bactrim -Grew Staph earlier this year Code: DNI-DNR DVT PPx: Heparin TID Diet: HH, Renal high protein PCP: Dr. Mary; patient has reportedly fired Sound Dispo: Will continue working on titration down to [place]. Will d/c doxycycline. Will discuss tapering of steroids with Dr. Rehman and transferring out out of the unit. Addendum - Attending - Attending Attestation Date/Time: 09/05/20 1168 I personally evaluated the patient and discussed the management with Dr. Mix. I agree with the History, Examination, Assessment and Plan documented above with any addition or exceptions noted below. d/c doxy, taper steroids, move out of IMCU. Continue PRN BiPAP when sleeping.
[2020-09-05] MEDS: Pregabalin 25 MG CAP PO SCH (08:08)
[2020-09-05] MEDS: Magnesium Oxide 400 MG TAB PO SCH (08:08)
[2020-09-05] MEDS: Amiodarone 200 MG TAB PO SCH (08:08)
[2020-09-05] MEDS: Multivitamin W/ Minerals 1 TAB PO SCH (08:09)
[2020-09-05] MEDS: Fluticasone Propionate Nasal Spray 16 gm Bottle NASAL SCH (08:09)
[2020-09-05] MEDS: Doxycycline 100 MG CAP PO SCH (08:09)
[2020-09-05] MEDS: guaiFENesin ER 600 MG TAB PO SCH ×2 (08:09→20:22)
[2020-09-05] MEDS: Gabapentin 100 MG CAP PO SCH ×2 (08:09→20:22)
[2020-09-05] MEDS: Cholecalciferol 1,000 UNITS (25 MCG) TAB PO SCH (08:09)
[2020-09-05] MEDS: Heparin 5,000 UNITS/ML VIAL SC SCH ×3 (08:10→20:24)
[2020-09-05] MEDS: Insulin Glargine 4 UNITS in Pre-Filled Syringe 1 EACH SC SCH (08:10)
[2020-09-05] MEDS: Nystatin Powder 15 GM BOT TOP SCH ×2 (08:10→20:24)
[2020-09-05] MEDS: Sulfameth/Trimethoprim SS 400-80MG TAB PO SCH (10:59)
--- NOTE | 2020-09-05 11:45 | PRG ---
DATE OF SERVICE: 09/05/2020 SUBJECTIVE: Bin Mart is on high-flow this morning. OBJECTIVE: VITAL SIGNS: Saturations are 90%, temperature 97, blood pressure 99/66, pulse 80. CHEST: No wheezing. No crackles. CARDIAC: Normal S1 and S2. No gallops. ABDOMEN: No masses. LABORATORY DATA: Creatinine 2.8. White count 37. BUN is 72. IMPRESSION: 1. Respiratory failure secondary to coronavirus positive pneumonia. 2. Azotemia, appears to be prerenal. PLAN: His last x-ray was relatively stable, bilateral infiltrates. We will switch him over to oral prednisone today. I guess if he remains stable, he could be transferred out of the MICU to monitored bed there. He needs continue steroids for several weeks. We will follow. Job ID: [id number]
--- NOTE | 2020-09-05 11:55 | PRG ---
DATE OF SERVICE: 09/05/2020 SUBJECTIVE: An 79-year-old gentleman being seen for end-stage renal disease. The patient denies any nausea, vomiting, or chest pain. PHYSICAL EXAMINATION: General: The patient is resting. Vital Signs: Afebrile, pulse 84, breathing at 16, blood pressure 99/66. HEENT: Head normocephalic and atraumatic. Eyes intact, no ulcers. Nose intact, no ulcers. Ears intact, no ulcers. Neck: Supple. No JVD. Chest: Symmetrical and clear. Cardiovascular: Shows S1 and S2, no rub, no murmur. Gastrointestinal: Abdomen is soft, bowel sounds positive. Extremities: Show no edema or ulcers. Skin: Shows no rash or petechiae. Musculoskeletal: Shows no joint swelling or stiffness. Genitourinary: Shows no De or CVA tenderness. Neurologic: Motor intact. Cranial nerves intact. LABORATORY DATA: Labs reviewed. ASSESSMENT AND PLAN: 1. Stage 6 chronic kidney disease, stable. 2. Hypertension, stable. 3. Anemia, stable. 4. Medication based on GFR appropriate. Job ID: [id number]
[2020-09-05] MEDS: HumaLOG 300 UNITS/3 ML VIAL SC PRN (12:59)
[2020-09-05 15:25] VITALS: BP 133/61
[2020-09-05] MEDS: Tamsulosin HCl 0.4 MG CAP PO SCH (20:22)
[2020-09-05] MEDS: Zolpidem Tartrate 5 MG TAB PO PRN (20:22)
[2020-09-05] MEDS: Atorvastatin Calcium 20 MG TAB PO SCH (20:22)
[2020-09-06] MEDS: PROVENTIL INHALER 6.7 G (200 INHALATIONS) INH SCH ×6 (02:31→23:46)
[2020-09-06 03:38] LABS: Band 4 % (5-11); Hemoglobin 8.6 g/dL (14.0-18.0); MDiff Complete? YES; Mean Corpuscular HGB CONC 32.1 g/dL (32.0-36.0); Mean Corpuscular Hemoglobin 29.6 pg (27.0-31.0); Mean Corpuscular Volume 92.3 fL (78.0-98.0); Mean Platelet Volume 9.1 fL (7.4-10.4); Metamyelocyte 1 % (0-0); Monocytes 4 % (0-10); Neutrophil 91 % (42-75); Platelet Count 200 thou/uL (130-400); Platelet Morphology Comment Appears Adequate; RBC Distribution Width 16.3 % (11.5-14.5); Red Blood Cell (RBC) Count 2.89 mill/uL (4.70-6.10); White Blood Cell (WBC) Count 15.7 thou/uL (4.8-10.8)
[2020-09-06 03:47] LABS: Anion Gap 16 mmol/L (10-20); BUN (Urea Nitrogen) 87 mg/dL (8.4-25.7); Calc. Creatinine Clearance 23 mL/min (70-130); Calcium 7.6 mg/dL (7.8-10.44); Carbon Dioxide 24 mmol/L (23-31); Chloride 99 mmol/L (98-107); Estimated GFR-MDRD 19; Glucose 95 mg/dL (83-110); Potassium 4.9 mmol/L (3.5-5.1); Sodium 134 mmol/L (136-145)
--- NOTE | 2020-09-06 06:08 | PDOC.FM ---
- Subjective Subjective: Pt states that he feels better today. He would like to get off the bipap this morning and try the high flow oxygen. He states that he did not have an appetite, but he feels hungry this morning. He says he is having some left shoulder muscular pain. - Objective MAR Reviewed: Yes Vital Signs & Weight: Vital Signs (12 hours) Temp Pulse Resp Pulse Ox 09/06/20 02:00 73 13 100 09/06/20 00:00 97.5 F L 09/05/20 20:00 97.9 F 98 Weight Admit Weight 90.265 kg Weight 86.6 kg Most Recent Monitor Data Heart Rate from ECG 78 NIBP 142/71 NIBP BP-Mean 94 Respiration from ECG 16 SpO2 99 I&O: 09/04/20 09/05/20 09/06/20 06:59 06:59 06:59 Intake Total 920 1380 680 Balance 920 1380 680 Result Diagrams: 09/06/20 03:06 09/06/20 03:06 Phys Exam - Physical Examination Constitutional: NAD HEENT: moist MMs, sclera anicteric Neck: supple Decreased breath sounds but improved from yesterday Cardiovascular: RRR, no significant murmur Gastrointestinal: soft, non-tender, no distention Musculoskeletal: no edema, pulses present Neurological: moves all 4 limbs Lymphatic: no nodes Psychiatric: normal affect Skin: no rash, normal turgor Dx/Plan (1) COVID-19 Code(s): U07.1 - COVID-19 Status: Acute (2) Pulmonary HTN Code(s): I27.20 - PULMONARY HYPERTENSION, UNSPECIFIED Status: Acute (3) ESRD (end stage renal disease) on dialysis Code(s): N18.6 - END STAGE RENAL DISEASE; Z99.2 - DEPENDENCE ON RENAL DIALYSIS Status: Acute (4) Acute and chronic respiratory failure with hypoxia Code(s): J96.21 - ACUTE AND CHRONIC RESPIRATORY FAILURE WITH HYPOXIA Status: Acute (5) Acute on chronic diastolic (congestive) heart failure Code(s): I50.33 - ACUTE ON CHRONIC DIASTOLIC (CONGESTIVE) HEART FAILURE Status: Acute (6) COPD exacerbation Code(s): J44.1 - CHRONIC OBSTRUCTIVE PULMONARY DISEASE W (ACUTE) EXACERBATION Status: Acute (7) Anemia, normocytic normochromic Code(s): D64.9 - ANEMIA, UNSPECIFIED Status: Chronic (8) Atrial fibrillation Code(s): I48.91 - UNSPECIFIED ATRIAL FIBRILLATION Status: Chronic Qualifiers: (9) HTN (hypertension) Code(s): I10 - ESSENTIAL (PRIMARY) HYPERTENSION Status: Chronic Qualifiers: (10) BRAD (obstructive sleep apnea) Code(s): G47.33 - OBSTRUCTIVE SLEEP APNEA (ADULT) (PEDIATRIC) Status: Chronic (11) Physical deconditioning Code(s): R53.81 - OTHER MALAISE Status: Chronic - Plan Plan: Patient is an 79 yo M with PMHx of COPD-on 4L NC, HFrEF-followed by Dr. Fowler, who presented to [facility] ED 2/2 SOB and hypoxia and admitted here due to SOB. 1. Acute hypoxic respiratory failure likely 2/2 combination of acute on chronic COPD exacerbation, acute on chronic HFpEF exacerbation, and COVID PNA -CXR 08/28-extensive nodular/interstitial changes -BNP elevated at 930.5 on admission,repeat 08/28 960s -Dr. Weinberg consulted from the ED, continue HD per nephrology recs- // -patient on 4L O2NC at baseline -Patient on 10mg prednisone qd chronically; * Switched from 40mg methylprednisolone Q6H for stress-dose steroids in the setting of COVID pna to prednisone 60 mg QD -s/p convalescent plasma 08/24 -D/c Doxycycline BID- 08/24-09/05 -Pulmonology consulted, appreciate recs; not a candidate for remdesivir 2/2 ESRD -COVID labs elevated -CM to assist with finding placement at rehab center that accepts COVID patients -Dietary consulted to assist with nutrition needs -Will work with RT to try to transition back to NC, patient tolerating HFNC at some points during the day and bipap * HFNC FR: 60 FIO2: 80 * Bipap FR: 100 FIO2: 40 -today is day 17 since symptom onset, day 14 since +COVID 2. Indeterminate Troponin -patient is an ESRD patient, has had elevated levels throughout the past several months -patient denies chest pain -trop x 3 remained indeterminate without becoming positive 4. ESRD on HD -Nephro following along, continue routine HD // 5. HFpEF -elevated BNP, possibly exacerbation; repeat BNP 08/28 similar to BNP on admission; likely chronically elevated -continue HD -Dr. Fowler is his HF physician -Monitor I&O 6. Afib -continue home meds -patient in NSR 7. Chronic Anemia- Stable -Hgb 6.8 on 08/24; 2u pRBC given with HD per Dr. Weinberg; stable -will continue to monitor 8. Pulmonary HTN -continue home sildenafil 9. Deconditioning -patient to work with PT/OT 10. Infection of Prosthesis -On chronic Bactrim -Grew Staph earlier this year Code: DNI-DNR DVT PPx: Heparin TID Diet: HH, Renal high protein PCP: Dr. Mary; patient has reportedly fired [employer]: Will continue working on titration down to NC. HD today. Will reassess HF after dialysis. Addendum - Attending - Attending Attestation Date/Time: 09/06/20 0195 I personally evaluated the patient and discussed the management with Dr. Mix. I agree with the History, Examination, Assessment and Plan documented above with any addition or exceptions noted below. Continue to wean HFNC with PRN BiPAP
[2020-09-06] MEDS: Sildenafil Citrate 20 MG TAB PO SCH ×3 (06:13→21:01)
[2020-09-06] MEDS ORDERED: predniSONE 50 MG TAB PO SCH (08:00)
[2020-09-06] MEDS: predniSONE 20 MG TAB PO SCH (08:11)
[2020-09-06] MEDS: Amiodarone 200 MG TAB PO SCH (08:11)
[2020-09-06] MEDS: Heparin 5,000 UNITS/ML VIAL SC SCH ×3 (08:11→19:50)
[2020-09-06] MEDS: Fluticasone Propionate Nasal Spray 16 gm Bottle NASAL SCH (08:11)
[2020-09-06] MEDS: Magnesium Oxide 400 MG TAB PO SCH (08:11)
[2020-09-06] MEDS: Multivitamin W/ Minerals 1 TAB PO SCH (08:11)
[2020-09-06] MEDS: Cholecalciferol 1,000 UNITS (25 MCG) TAB PO SCH (08:11)
[2020-09-06] MEDS: Gabapentin 100 MG CAP PO SCH ×2 (08:11→19:49)
[2020-09-06] MEDS: guaiFENesin ER 600 MG TAB PO SCH ×2 (08:11→19:49)
[2020-09-06] MEDS: Insulin Glargine 4 UNITS in Pre-Filled Syringe 1 EACH SC SCH (08:12)
[2020-09-06] MEDS: Nystatin Powder 15 GM BOT TOP SCH ×2 (08:12→19:50)
[2020-09-06] MEDS: Pregabalin 25 MG CAP PO SCH (08:20)
[2020-09-06] MEDS ORDERED: Heparin 10,000 UNITS/ 10 ML VIAL ONE (08:39)
[2020-09-06] MEDS ORDERED: Capsaicin 0.025% Cream 60 gm Tube TOP PRN (09:44)
[2020-09-06] MEDS: Guaifenesin DM 100-10/5 ML UDCUP PO PRN ×2 (11:06→21:31)
--- NOTE | 2020-09-06 11:33 | PRG ---
DATE OF SERVICE: 09/06/2020 SUBJECTIVE: An 79-year-old gentleman, being seen for end-stage renal disease. The patient denied nausea, vomiting, or chest pain. PHYSICAL EXAMINATION: General: The patient is awake and alert. Vital Signs: Afebrile, pulse 95, breathing at 16, blood pressure 123/59. HEENT: Head normocephalic and atraumatic. Eyes intact, no ulcers. Nose intact, no ulcers. Ears intact, no ulcers. Neck: Supple. No JVD. Chest: Symmetrical and clear. Cardiovascular: Shows S1 and S2, no rub, no murmur. Gastrointestinal: Abdomen is soft, bowel sounds positive. Extremities: Show no edema or ulcers. Skin: Shows no rash or petechiae. Musculoskeletal: Shows no joint swelling or stiffness. Genitourinary: Shows no De or CVA tenderness. Neurologic: Motor intact. Cranial nerves intact. LABORATORY DATA: Showed hemoglobin 8.6. IMPRESSION AND PLAN: 1. Stage 6 chronic kidney disease. Plan dialysis. 2. Hypertension, stable. 3. Anemia, stable. 4. Medication based on GFR, appropriate. Job ID: [id number]
[2020-09-06] MEDS ORDERED: Albumin 25% 100 ML ONE (15:47)
--- NOTE | 2020-09-06 17:05 | PRG ---
DATE OF SERVICE: 09/06/2020 Mr. Mart is clinically unchanged. His FiO2 is between 45% and 50% most of the time. He is still on high-flow oxygen. We will continue to try to decrease his oxygen flows as tolerated. He probably could be at some point, transferred out of the intermediate care unit. Job ID: [id number]
[2020-09-06] MEDS: Acetaminophen 325 MG TAB PO PRN (19:48)
[2020-09-06] MEDS: Tamsulosin HCl 0.4 MG CAP PO SCH (19:49)
[2020-09-06] MEDS: Zolpidem Tartrate 5 MG TAB PO PRN (19:49)
[2020-09-06] MEDS: Atorvastatin Calcium 20 MG TAB PO SCH (19:50)
[2020-09-06] MEDS ORDERED: Morphine 2 MG/ML VIAL SLOW IVP PRN (20:22)
[2020-09-06] MEDS ORDERED: Morphine 4 MG/ML VIAL ONE (20:23)
[2020-09-06] MEDS ORDERED: Morphine 4 MG/ML VIAL SLOW IVP PRN (21:05)
[2020-09-06] MEDS ORDERED: Morphine 2 MG/ML VIAL SLOW IVP SCH (21:15)
[2020-09-07] MEDS: PROVENTIL INHALER 6.7 G (200 INHALATIONS) INH SCH ×6 (02:55→22:35)
[2020-09-07 04:16] LABS: Anion Gap 16 mmol/L (10-20); BUN (Urea Nitrogen) 59 mg/dL (8.4-25.7); Calc. Creatinine Clearance 29 mL/min (70-130); Calcium 7.9 mg/dL (7.8-10.44); Carbon Dioxide 25 mmol/L (23-31); Chloride 99 mmol/L (98-107); Estimated GFR-MDRD 26; Glucose 173 mg/dL (83-110); Potassium 4.3 mmol/L (3.5-5.1); Sodium 136 mmol/L (136-145)
[2020-09-07 04:18] LABS: Band 4 % (5-11); Hemoglobin 8.2 g/dL (14.0-18.0); Hypochromia SLIGHT = 6-15 cells (100X) (0-5/hpf); Lymphocytes 2 % (21-51); MDiff Complete? YES; Mean Corpuscular HGB CONC 32.2 g/dL (32.0-36.0); Mean Corpuscular Hemoglobin 29.7 pg (27.0-31.0); Mean Corpuscular Volume 92.3 fL (78.0-98.0); Mean Platelet Volume 9.6 fL (7.4-10.4); Neutrophil 94 % (42-75); Platelet Count 173 thou/uL (130-400); Platelet Morphology Comment Appears Adequate; RBC Distribution Width 16.8 % (11.5-14.5); Red Blood Cell (RBC) Count 2.77 mill/uL (4.70-6.10); White Blood Cell (WBC) Count 15.6 thou/uL (4.8-10.8)
[2020-09-07] MEDS: Sildenafil Citrate 20 MG TAB PO SCH ×3 (06:02→21:41)
[2020-09-07] MEDS: Acetaminophen 325 MG TAB PO PRN ×2 (06:02→11:22)
[2020-09-07] MEDS: Guaifenesin DM 100-10/5 ML UDCUP PO PRN (06:02)
--- NOTE | 2020-09-07 06:07 | PDOC.FM ---
- Subjective Subjective: Pt says he was really anxious last night. He says he feels hung over this morning. He says his breathing is unchanged from yesterday. - Objective MAR Reviewed: Yes Vital Signs & Weight: Vital Signs (12 hours) Temp Pulse Resp Pulse Ox 09/07/20 04:00 97.3 F L 09/07/20 02:36 94 17 94 L 09/06/20 23:44 98.6 F 09/06/20 20:00 97.6 F 96 Weight Admit Weight 86.183 kg Weight 86.001 kg Most Recent Monitor Data Heart Rate from ECG 86 NIBP 113/53 NIBP BP-Mean 73 Respiration from ECG 19 SpO2 96 I&O: 09/05/20 09/06/20 09/07/20 06:59 06:59 06:59 Intake Total 1380 930 600 Output Total 1999 Balance 1380 930 -1400 Result Diagrams: 09/07/20 03:17 09/07/20 03:17 Phys Exam - Physical Examination Constitutional: NAD HEENT: moist MMs, sclera anicteric Neck: no nodes, supple coarse upper breath sounds Cardiovascular: RRR, no significant murmur Gastrointestinal: soft, non-tender, positive bowel sounds Musculoskeletal: pulses present 2+ edema present Neurological: moves all 4 limbs Lymphatic: no nodes Psychiatric: normal affect Skin: no rash, normal turgor Dx/Plan (1) COVID-19 Code(s): U07.1 - COVID-19 Status: Acute (2) Pulmonary HTN Code(s): I27.20 - PULMONARY HYPERTENSION, UNSPECIFIED Status: Acute (3) ESRD (end stage renal disease) on dialysis Code(s): N18.6 - END STAGE RENAL DISEASE; Z99.2 - DEPENDENCE ON RENAL DIALYSIS Status: Acute (4) Acute and chronic respiratory failure with hypoxia Code(s): J96.21 - ACUTE AND CHRONIC RESPIRATORY FAILURE WITH HYPOXIA Status: Acute (5) Acute on chronic diastolic (congestive) heart failure Code(s): I50.33 - ACUTE ON CHRONIC DIASTOLIC (CONGESTIVE) HEART FAILURE Status: Acute (6) COPD exacerbation Code(s): J44.1 - CHRONIC OBSTRUCTIVE PULMONARY DISEASE W (ACUTE) EXACERBATION Status: Acute (7) Anemia, normocytic normochromic Code(s): D64.9 - ANEMIA, UNSPECIFIED Status: Chronic (8) Atrial fibrillation Code(s): I48.91 - UNSPECIFIED ATRIAL FIBRILLATION Status: Chronic Qualifiers: (9) HTN (hypertension) Code(s): I10 - ESSENTIAL (PRIMARY) HYPERTENSION Status: Chronic Qualifiers: (10) BRAD (obstructive sleep apnea) Code(s): G47.33 - OBSTRUCTIVE SLEEP APNEA (ADULT) (PEDIATRIC) Status: Chronic (11) Physical deconditioning Code(s): R53.81 - OTHER MALAISE Status: Chronic - Plan Plan: Patient is an 79 yo M with PMHx of COPD-on 4L NC, HFrEF-followed by Dr. Fowler, who presented to [facility] ED 2/2 SOB and hypoxia and admitted here due to SOB. 1. Acute hypoxic respiratory failure likely 2/2 combination of acute on chronic COPD exacerbation, acute on chronic HFpEF exacerbation, and COVID PNA -CXR 08/28-extensive nodular/interstitial changes -BNP elevated at 930.5 on admission,repeat 08/28 960s -Dr. Weinberg consulted from the ED, continue HD per nephrology recs- / -patient on 4L O2NC at baseline -Patient on 10mg prednisone qd chronically; * Switched from 40mg methylprednisolone Q6H for stress-dose steroids in the setting of COVID pna to prednisone 60 mg QD -s/p convalescent plasma 08/24 -D/c Doxycycline BID- 08/24-09/05 -Pulmonology consulted, appreciate recs; not a candidate for remdesivir 2/2 ESRD -COVID labs elevated -CM to assist with finding placement at rehab center that accepts COVID patients -Dietary consulted to assist with nutrition needs -Will work with RT to try to transition back to NC, patient tolerating HFNC at some points during the day and bipap * HFNC FR: 60 FIO2: 80 * Bipap FR: 100 FIO2: 40 -today is day 17 since symptom onset, day 14 since +COVID 2. Indeterminate Troponin -patient is an ESRD patient, has had elevated levels throughout the past several months -patient denies chest pain -trop x 3 remained indeterminate without becoming positive 4. ESRD on HD -Nephro following along, continue routine HD // 5. HFpEF -elevated BNP, possibly exacerbation; repeat BNP 08/28 similar to BNP on admission; likely chronically elevated -continue HD -Dr. Fowler is his HF physician -Monitor I&O 6. Afib -continue home meds -patient in NSR 7. Chronic Anemia- Stable -Hgb 6.8 on 08/24; 2u pRBC given with HD per Dr. Weinberg; stable -will continue to monitor 8. Pulmonary HTN -continue home sildenafil 9. Deconditioning -patient to work with PT/OT 10. Infection of Prosthesis -On chronic Bactrim -Grew Staph earlier this year Code: DNI-DNR DVT PPx: Heparin TID Diet: HH, Renal high protein PCP: Dr. Mary; patient has reportedly fired [employer]: Will continue working on titration down to NC. He has significant upper airway sounds with add on Mucinex DM for clearance. Will reach out to family today. We may consider moving toward hospice. Addendum - Attending - Attending Attestation Date/Time: 09/07/20 7204 I personally evaluated the patient and discussed the management with Dr. Mix. I agree with the History, Examination, Assessment and Plan documented above with any addition or exceptions noted below. He appears to be clinically deteriorating. Will await pulm recs but may need to consider transition to comfort measures if he does not improve in the next few days.
[2020-09-07] MEDS: predniSONE 20 MG TAB PO SCH (08:51)
[2020-09-07] MEDS: Heparin 5,000 UNITS/ML VIAL SC SCH ×3 (08:52→21:43)
[2020-09-07] MEDS: Multivitamin W/ Minerals 1 TAB PO SCH (08:52)
[2020-09-07] MEDS: Gabapentin 100 MG CAP PO SCH ×2 (08:52→21:43)
[2020-09-07] MEDS: guaiFENesin ER 600 MG TAB PO SCH ×2 (08:52→21:42)
[2020-09-07] MEDS: Magnesium Oxide 400 MG TAB PO SCH (08:52)
[2020-09-07] MEDS: Amiodarone 200 MG TAB PO SCH (08:52)
[2020-09-07] MEDS: Fluticasone Propionate Nasal Spray 16 gm Bottle NASAL SCH (08:52)
[2020-09-07] MEDS: Cholecalciferol 1,000 UNITS (25 MCG) TAB PO SCH (08:53)
[2020-09-07] MEDS: Pregabalin 25 MG CAP PO SCH (08:54)
[2020-09-07] MEDS: Nystatin Powder 15 GM BOT TOP SCH ×2 (08:54→22:39)
[2020-09-07] MEDS: Sulfameth/Trimethoprim SS 400-80MG TAB PO SCH (08:54)
[2020-09-07] MEDS ORDERED: Morphine 4 MG/ML VIAL SLOW IVP PRN (09:16)
--- NOTE | 2020-09-07 09:22 | PRG ---
DATE OF SERVICE: 09/07/2020 SUBJECTIVE: An 79-year-old gentleman being seen for end-stage renal disease. The patient denies any nausea, vomiting, or chest pain. His oxygen requirements have increased on BiPAP. OBJECTIVE: GENERAL: The patient is resting. VITAL SIGNS: Afebrile, pulse 96, breathing at 16, blood pressure 126/59. HEENT: Head normocephalic and atraumatic. Eyes intact, no ulcers. Nose intact, no ulcers. Ears intact, no ulcers. NECK: Supple. No JVD. CHEST: Symmetrical and clear. CARDIOVASCULAR: Shows S1 and S2, no rub, no murmur. GASTROINTESTINAL: Abdomen is soft, bowel sounds positive. EXTREMITIES: Show no edema. SKIN: Shows no rash or petechiae. MUSCULOSKELETAL: Shows no joint swelling or stiffness. GENITOURINARY: Shows no De or CVA tenderness. NEUROLOGIC: Motor intact. Cranial nerves intact. LABORATORY DATA: Show hemoglobin 8.2. ASSESSMENT AND PLAN: 1. Stage 6 chronic kidney disease, plan dialysis. 2. Hypertension, stable. 3. Anemia, stable. 4. Medication based on GFR appropriate. Job ID: [id number]
[2020-09-07] MEDS: Insulin Glargine 4 UNITS in Pre-Filled Syringe 1 EACH SC SCH (11:21)
[2020-09-07] MEDS ORDERED: Morphine 4 MG/ML VIAL SLOW IVP SCH (14:15)
[2020-09-07] MEDS ORDERED: Lorazepam 2 MG/ML VIAL SLOW IVP PRN (15:37)
--- NOTE | 2020-09-07 16:16 | PDOC.EVN ---
Event Note - Event Note Event Note: Spoke with regarding patient's status and prognosis. I informed her that he was clinically worsening and that if he does not improve in the next 24-48 hours, he will not likely survive this hospital stay. She was tearful and acknowledge that we were doing everything possible for him. I discussed comfort measure and hospice care but she said she was not ready to transition to that at this point. We will follow up with her tomorrow. Palliative consult placed.
[2020-09-07] MEDS: guaiFENesin/DM ER PO SCH (21:42)
[2020-09-07] MEDS: Atorvastatin Calcium 20 MG TAB PO SCH (21:43)
[2020-09-07] MEDS: Tamsulosin HCl 0.4 MG CAP PO SCH (21:43)
[2020-09-07] MEDS: Morphine 4 MG/ML VIAL SLOW IVP PRN (21:44)
[2020-09-08] MEDS: PROVENTIL INHALER 6.7 G (200 INHALATIONS) INH SCH ×5 (04:00→23:20)
--- NOTE | 2020-09-08 06:04 | PDOC.FM ---
- Subjective Subjective: Pt is very somnolent this morning and very labored in breathing this morning. I was unable to understand him when he spoke. He nodded his head that he is not eating. He does hurt, but he is unable to tell me where. - Objective MAR Reviewed: Yes Vital Signs & Weight: Vital Signs (12 hours) Temp Pulse Resp Pulse Ox 09/08/20 04:00 99 09/08/20 03:46 97.6 F 09/08/20 01:44 92 10 L 93 L 09/08/20 00:00 98.0 F 09/07/20 20:00 97.7 F 96 09/07/20 18:37 89 12 95 Weight Admit Weight 86.183 kg Weight 84.7 kg Most Recent Monitor Data Heart Rate from ECG 93 NIBP 101/52 NIBP BP-Mean 68 Respiration from ECG 14 SpO2 91 I&O: 09/06/20 09/07/20 09/08/20 06:59 06:59 06:59 Intake Total 930 970 480 Output Total 1999 Balance 930 -1030 480 Result Diagrams: 09/08/20 07:51 09/08/20 07:51 Phys Exam - Physical Examination Somnolent with labored breathing HEENT: moist MMs, sclera anicteric Neck: no nodes, supple decreased breath sounds at periphery Cardiovascular: RRR Gastrointestinal: soft, non-tender 3+ pitting edema, difficult to assess pulses Neurological: moves all 4 limbs Lymphatic: no nodes Psychiatric: normal affect Deviation from normal: bruising on right arm and hand Dx/Plan (1) COVID-19 Code(s): U07.1 - COVID-19 Status: Acute (2) Pulmonary HTN Code(s): I27.20 - PULMONARY HYPERTENSION, UNSPECIFIED Status: Acute (3) ESRD (end stage renal disease) on dialysis Code(s): N18.6 - END STAGE RENAL DISEASE; Z99.2 - DEPENDENCE ON RENAL DIALYSIS Status: Acute (4) Acute and chronic respiratory failure with hypoxia Code(s): J96.21 - ACUTE AND CHRONIC RESPIRATORY FAILURE WITH HYPOXIA Status: Acute (5) Acute on chronic diastolic (congestive) heart failure Code(s): I50.33 - ACUTE ON CHRONIC DIASTOLIC (CONGESTIVE) HEART FAILURE Status: Acute (6) COPD exacerbation Code(s): J44.1 - CHRONIC OBSTRUCTIVE PULMONARY DISEASE W (ACUTE) EXACERBATION Status: Acute (7) Anemia, normocytic normochromic Code(s): D64.9 - ANEMIA, UNSPECIFIED Status: Chronic (8) Atrial fibrillation Code(s): I48.91 - UNSPECIFIED ATRIAL FIBRILLATION Status: Chronic Qualifiers: (9) HTN (hypertension) Code(s): I10 - ESSENTIAL (PRIMARY) HYPERTENSION Status: Chronic Qualifiers: (10) BRAD (obstructive sleep apnea) Code(s): G47.33 - OBSTRUCTIVE SLEEP APNEA (ADULT) (PEDIATRIC) Status: Chronic (11) Physical deconditioning Code(s): R53.81 - OTHER MALAISE Status: Chronic - Plan Plan: Patient is an 79 yo M with PMHx of COPD-on 4L NC, HFrEF-followed by Dr. Fowler, who presented to [facility] ED 2/2 SOB and hypoxia and admitted here due to SOB. 1. Acute hypoxic respiratory failure likely 2/2 combination of acute on chronic COPD exacerbation, acute on chronic HFpEF exacerbation, and COVID PNA -CXR 08/28-extensive nodular/interstitial changes -BNP elevated at 930.5 on admission,repeat 08/28 960s -Dr. Weinberg consulted from the ED, continue HD per nephrology recs- // -patient on 4L O2NC at baseline -Patient on 10mg prednisone qd chronically; * Switched from 40mg methylprednisolone Q6H for stress-dose steroids in the setting of COVID pna to prednisone 60 mg QD -s/p convalescent plasma 08/24 -D/c Doxycycline BID- 08/24-09/05 -Pulmonology consulted, appreciate recs; not a candidate for remdesivir 2/2 ESRD -COVID labs elevated -CM to assist with finding placement at rehab center that accepts COVID patients -Dietary consulted to assist with nutrition needs -Will work with RT to try to transition back to NC, patient tolerating HFNC at some points during the day and bipap * Bipap FR: 60 FIO2: 80 -today is day 17 since symptom onset, day 14 since +COVID -Ativan & morphine prn for air hunger -Will get ABG this morning due to change in mental status 2. Indeterminate Troponin -patient is an ESRD patient, has had elevated levels throughout the past several months -patient denies chest pain -trop x 3 remained indeterminate without becoming positive 4. ESRD on HD -Nephro following along, continue routine HD T// 5. HFpEF -elevated BNP, possibly exacerbation; repeat BNP 08/28 similar to BNP on admission; likely chronically elevated -continue HD -Dr. Fowler is his HF physician -Monitor I&O 6. Afib -continue home meds -patient in NSR 7. Chronic Anemia- Stable -Hgb 6.8 on 08/24; 2u pRBC given with HD per Dr. Weinberg; stable -will continue to monitor 8. Pulmonary HTN -continue home sildenafil 9. Deconditioning -patient to work with PT/OT 10. Infection of Prosthesis -On chronic Bactrim -Grew Staph earlier this year Code: DNI-DNR DVT PPx: Heparin TID Diet: HH, Renal high protein PCP: Dr. Mary; patient has reportedly fired [employer]: Will monitor O2 sats. Will get ABG due to change in mental status and will talk with family. Addendum - Attending - Attending Attestation Date/Time: 09/08/20 7829 I personally evaluated the patient and discussed the management with Dr. Mix. I agree with the History, Examination, Assessment and Plan documented above with any addition or exceptions noted below. He is more confused and now requiring bipap at all times. Clinically deteriorating. ABG worsened Family visited last night. will reach out again today and revisit hospice/palliative measures. Prognosis guarded.
[2020-09-08] MEDS: Sildenafil Citrate 20 MG TAB PO SCH ×3 (06:19→22:10)
[2020-09-08 08:10] LABS: Mean Corpuscular HGB CONC 31.3 g/dL (32.0-36.0); Mean Corpuscular Hemoglobin 29.3 pg (27.0-31.0); Mean Corpuscular Volume 93.8 fL (78.0-98.0); Platelet Count 153 thou/uL (130-400); RBC Distribution Width 17.7 % (11.5-14.5); Red Blood Cell (RBC) Count 2.71 mill/uL (4.70-6.10); White Blood Cell (WBC) Count 15.6 thou/uL (4.8-10.8)
[2020-09-08 08:18] LABS: Anion Gap 16 mmol/L (10-20); BUN (Urea Nitrogen) 74 mg/dL (8.4-25.7); Calc. Creatinine Clearance 22 mL/min (70-130); Calcium 8.2 mg/dL (7.8-10.44); Carbon Dioxide 28 mmol/L (23-31); Chloride 100 mmol/L (98-107); Estimated GFR-MDRD 19; Glucose 73 mg/dL (83-110); Sodium 139 mmol/L (136-145)
[2020-09-08] MEDS ORDERED: Heparin 10,000 UNITS/ 10 ML VIAL ONE (08:43)
[2020-09-08 09:02] LABS: Band 4 % (5-11); Bite Cells SLIGHT = 2-5 cells (100X) (0-1/hpf); Lymphocytes 2 % (21-51); MDiff Complete? YES; Metamyelocyte 1 % (0-0); Monocytes 2 % (0-10); Neutrophil 91 % (42-75); Platelet Morphology Comment Appears Adequate; Polychromasia MODERATE = 3-4 cells (100X) (0-2/hpf); Schistocytes SLIGHT = 2-5 cells (100X) (0-1/hpf)
[2020-09-08 09:07] LABS: Actual Bicarbonate (HCO3a) 26.2 mEq/L (22-28); Base Excess (BEa) 0.8 mEq/L (-2.0 to +3.0); CO2 Tension 47.1 mmHg (35.0-45.0); Calcium, Ionized (arterial) 1.11 mmol/L (1.12-1.30); Potassium - ABG Lab 4.68 mmol/L (3.70-5.30); pH, Arterial 7.36 (7.35-7.45)
[2020-09-08 09:11] LABS: O2 Tension (PaO2), arterial 49.7 mmHg (> 60.0)
[2020-09-08 09:14] LABS: ALV-art Gradient 461.825 mmHg (0-20); Puncture Site RRA
[2020-09-08] MEDS ORDERED: Albumin 25% 100 ML ONE (10:30)
--- NOTE | 2020-09-08 11:16 | PRG ---
DATE OF SERVICE: 09/08/2020 SUBJECTIVE: An 79-year-old gentleman being seen for end-stage renal disease. The patient denies any nausea, vomiting, or chest pain. OBJECTIVE: GENERAL: The patient is awake and alert. VITAL SIGNS: Afebrile, pulse 90, breathing at 16, blood pressure 100/49. HEENT: Head normocephalic and atraumatic. Eyes intact, no ulcers. Nose intact, no ulcers. Ears intact, no ulcers. NECK: Supple. No JVD. CHEST: Symmetrical and clear. CARDIOVASCULAR: Shows S1 and S2, no rub, no murmur. GASTROINTESTINAL: Abdomen is soft, bowel sounds positive. EXTREMITIES: Show no edema or ulcers. SKIN: Shows no rash or petechiae. MUSCULOSKELETAL: Shows no joint swelling or stiffness. GENITOURINARY: Shows no De or CVA tenderness. NEUROLOGIC: Motor intact. Cranial nerves intact. LABORATORY DATA: Show hemoglobin 8. Potassium 5. ASSESSMENT AND PLAN: 1. Stage 6 chronic kidney disease, plan dialysis. 2. Anemia, we would recommend transfusion. 3. Hypertension, stable. 4. Medication based on GFR appropriate. 5. Chronic failure to thrive. Prognosis is poor. Job ID: [id number]
[2020-09-08] MEDS: Amiodarone 200 MG TAB PO SCH (12:44)
[2020-09-08] MEDS: Cholecalciferol 1,000 UNITS (25 MCG) TAB PO SCH (12:44)
[2020-09-08] MEDS: predniSONE 20 MG TAB PO SCH (12:44)
[2020-09-08] MEDS: Fluticasone Propionate Nasal Spray 16 gm Bottle NASAL SCH (12:44)
[2020-09-08] MEDS: guaiFENesin/DM ER PO SCH ×2 (12:45→22:09)
[2020-09-08] MEDS: Heparin 5,000 UNITS/ML VIAL SC SCH ×3 (12:45→21:29)
[2020-09-08] MEDS: Magnesium Oxide 400 MG TAB PO SCH (12:45)
[2020-09-08] MEDS: Multivitamin W/ Minerals 1 TAB PO SCH (12:45)
[2020-09-08] MEDS: Gabapentin 100 MG CAP PO SCH ×2 (12:45→22:09)
[2020-09-08] MEDS: Insulin Glargine 4 UNITS in Pre-Filled Syringe 1 EACH SC SCH (12:45)
[2020-09-08] MEDS: Nystatin Powder 15 GM BOT TOP SCH ×2 (12:46→22:11)
[2020-09-08] MEDS: Pregabalin 25 MG CAP PO SCH (12:46)
[2020-09-08 12:48] VITALS: BMI 27.6
[2020-09-08 12:54] LABS: HBSAg Index 0.22 S/CO (0-0.99); Hep B Surf Ag Non-Reactive S/CO (NonReactive)
--- NOTE | 2020-09-08 13:06 | PRG ---
DATE OF SERVICE: 09/08/2020 SUBJECTIVE: Bin Mart remains on BiPAP. Heart rates in the 90s, blood pressure 116/53. He is encephalopathic, insisting that he goes home today. Respiratory rates in the 20s. He has no improvement overall. He is probably about 20 days into this, so we will discontinue his isolation . It is unclear whether or not he will survive. Weakness and deconditioning as before is the biggest factor affecting all of his illnesses. He has severe COPD, end-stage renal disease, and severe diastolic dysfunction. He has come close to dying in the past so that is not out of the realm of possibilities. Job ID: [id number]
--- NOTE | 2020-09-08 15:06 | PDOC.FMACP ---
Advance Care Planning - Problem (1) COVID-19 Status: Acute Code(s): U07.1 - COVID-19 (2) ESRD (end stage renal disease) on dialysis Status: Acute Code(s): N18.6 - END STAGE RENAL DISEASE; Z99.2 - DEPENDENCE ON RENAL DIALYSIS (3) Acute and chronic respiratory failure with hypoxia Status: Acute Code(s): J96.21 - ACUTE AND CHRONIC RESPIRATORY FAILURE WITH HYPOXIA (4) Acute on chronic diastolic (congestive) heart failure Status: Acute Code(s): I50.33 - ACUTE ON CHRONIC DIASTOLIC (CONGESTIVE) HEART FAILURE (5) Palliative care encounter Status: Acute Code(s): Z51.5 - ENCOUNTER FOR PALLIATIVE CARE (6) Symptomatic anemia Status: Acute Code(s): D64.9 - ANEMIA, UNSPECIFIED - Note Participants: family, palliative care Summary: Revisited Advanced Care Planning with Mrs Mart. The diagnosis, prognosis and goals of care were discussed. Revisited what she has been told by physicians regarding his prognosis. Discussed goal of care related to decline. She requested a family meeting 09/09/2020 with her three children at 10am to discuss goal of care in light of decline. She requested to have hospice present at the meeting, [facility]. Although they do not take inpatient hospice they state they will do GIP at our hospital. *Communicated with patient daughter Santi *Communicated plan with Dr Stanton *CM consult for hospice. *Communicated with warehouse specialist, pot feederGALINA Gonsales, and spiritual care. Time Spent (mins): 50
[2020-09-08] MEDS ORDERED: Morphine 4 MG/ML VIAL SLOW IVP SCH (16:00)
[2020-09-08] MEDS ORDERED: Morphine 4 MG/ML VIAL SLOW IVP PRN (16:01)
[2020-09-08] MEDS: Morphine 4 MG/ML VIAL SLOW IVP PRN (21:29)
[2020-09-08] MEDS: Atorvastatin Calcium 20 MG TAB PO SCH (22:09)
[2020-09-08] MEDS: Tamsulosin HCl 0.4 MG CAP PO SCH (22:10)
[2020-09-09] MEDS: PROVENTIL INHALER 6.7 G (200 INHALATIONS) INH SCH ×3 (02:20→10:25)
[2020-09-09] MEDS: Morphine 4 MG/ML VIAL SLOW IVP PRN (02:20)
--- NOTE | 2020-09-09 06:19 | PDOC.FM ---
- Subjective Subjective: He is with his this morning. He is able to answer questions. He says he is not in any pain. The nurse said they have not been able to take the bipap off to give him anything by mouth. - Objective MAR Reviewed: Yes Vital Signs & Weight: Vital Signs (12 hours) Temp Pulse Resp Pulse Ox 09/09/20 04:00 99.4 F 09/09/20 02:40 105 H 31 H 93 L 09/08/20 23:53 98.7 F 09/08/20 23:18 109 H 23 H 94 L 09/08/20 20:00 94 L 09/08/20 19:26 98.5 F 09/08/20 19:05 108 H 18 90 L Weight Admit Weight 86.183 kg Weight 82.9 kg Most Recent Monitor Data Heart Rate from ECG 105 NIBP 109/59 NIBP BP-Mean 75 Respiration from ECG 23 SpO2 94 I&O: 09/07/20 09/08/20 09/09/20 06:59 06:59 06:59 Intake Total 970 730 40 Output Total 2000 1500 Balance -1030 730 -1460 Result Diagrams: 09/09/20 06:15 09/09/20 06:15 Phys Exam - Physical Examination somnolent HEENT: sclera anicteric Neck: supple Coarse rhonchi throughout Cardiovascular: RRR Gastrointestinal: soft, non-tender Musculoskeletal: pulses present 1+ edema Neurological: non-focal Skin: normal turgor Deviation from normal: significant bruising on bilateral arms Dx/Plan (1) COVID-19 Code(s): U07.1 - COVID-19 Status: Acute (2) Pulmonary HTN Code(s): I27.20 - PULMONARY HYPERTENSION, UNSPECIFIED Status: Acute (3) ESRD (end stage renal disease) on dialysis Code(s): N18.6 - END STAGE RENAL DISEASE; Z99.2 - DEPENDENCE ON RENAL DIALYSIS Status: Acute (4) Acute and chronic respiratory failure with hypoxia Code(s): J96.21 - ACUTE AND CHRONIC RESPIRATORY FAILURE WITH HYPOXIA Status: Acute (5) Acute on chronic diastolic (congestive) heart failure Code(s): I50.33 - ACUTE ON CHRONIC DIASTOLIC (CONGESTIVE) HEART FAILURE Status: Acute (6) COPD exacerbation Code(s): J44.1 - CHRONIC OBSTRUCTIVE PULMONARY DISEASE W (ACUTE) EXACERBATION Status: Acute (7) Anemia, normocytic normochromic Code(s): D64.9 - ANEMIA, UNSPECIFIED Status: Chronic (8) Atrial fibrillation Code(s): I48.91 - UNSPECIFIED ATRIAL FIBRILLATION Status: Chronic Qualifiers: (9) HTN (hypertension) Code(s): I10 - ESSENTIAL (PRIMARY) HYPERTENSION Status: Chronic Qualifiers: (10) BRAD (obstructive sleep apnea) Code(s): G47.33 - OBSTRUCTIVE SLEEP APNEA (ADULT) (PEDIATRIC) Status: Chronic (11) Physical deconditioning Code(s): R53.81 - OTHER MALAISE Status: Chronic - Plan Plan: Patient is an 79 yo M with PMHx of COPD-on 4L NC, HFrEF-followed by Dr. Fowler, who presented to [place] ED 2/2 SOB and hypoxia and admitted here due to SOB. 1. Acute hypoxic respiratory failure likely 2/2 combination of acute on chronic COPD exacerbation, acute on chronic HFpEF exacerbation, and COVID PNA -CXR 08/28-extensive nodular/interstitial changes -BNP elevated at 930.5 on admission,repeat 08/28 960s -Dr. Weinberg consulted from the ED, continue HD per nephrology recs- T// -patient on 4L O2NC at baseline -Patient on 10mg prednisone qd chronically; * Switched from 40mg methylprednisolone Q6H for stress-dose steroids in the setting of COVID pna to prednisone 60 mg QD -s/p convalescent plasma 08/24 -D/c Doxycycline BID- 08/24-09/05 -Pulmonology consulted, appreciate recs; not a candidate for remdesivir 2/2 ESRD -COVID labs elevated -CM to assist with finding placement at rehab center that accepts COVID patients -Dietary consulted to assist with nutrition needs -Will work with RT to try to transition back to NC, currently is on continuous bipap * Bipap FR: 90 FIO2: 90 -today is day 17 since symptom onset, day 14 since +COVID -Ativan & morphine prn for air hunger 2. Indeterminate Troponin -patient is an ESRD patient, has had elevated levels throughout the past several months -patient denies chest pain -trop x 3 remained indeterminate without becoming positive 4. ESRD on HD -Nephro following along, continue routine HD T//Sa 5. HFpEF -elevated BNP, possibly exacerbation; repeat BNP 08/28 similar to BNP on admission; likely chronically elevated -continue HD -Dr. Fowler is his HF physician -Monitor I&O 6. Afib -continue home meds -patient in NSR 7. Chronic Anemia- Stable -Hgb 6.8 on 08/24 > 8.0 today; 2u pRBC given with HD per Dr. Weinberg; stable -will continue to monitor 8. Pulmonary HTN -continue home sildenafil 9. Deconditioning -patient to work with PT/OT 10. Infection of Prosthesis -On chronic Bactrim -Grew Staph earlier this year Code: DNI-DNR DVT PPx: Heparin TID Diet: HH, Renal high protein PCP: Dr. Mary; patient has reportedly fired Sound [employer]: Concern for bacterial infection, due to increase in white count and increased oxygen requirement, with source likely to be PNA. Ordered blood cultures, urine cultures, procal, and chest xray. Empiric coverage provided with Vanc and Linezolid. Will discuss hospice with this morning. Addendum - Attending - Attending Attestation Date/Time: 09/09/20 9387 I personally evaluated the patient and discussed the management with Dr. Mix. I agree with the History, Examination, Assessment and Plan documented above with any addition or exceptions noted below. Evaluation by hospice [facility] today. I spoke with hospice nurse and informed her we would be happy to follow him if he stays in the hospital for hospice care.
[2020-09-09 06:35] LABS: Hemoglobin 7.9 g/dL (14.0-18.0); Mean Corpuscular HGB CONC 31.1 g/dL (32.0-36.0); Mean Corpuscular Hemoglobin 29.3 pg (27.0-31.0); Mean Corpuscular Volume 94.3 fL (78.0-98.0); Mean Platelet Volume 9.9 fL (7.4-10.4); Platelet Count 129 thou/uL (130-400); Red Blood Cell (RBC) Count 2.69 mill/uL (4.70-6.10); White Blood Cell (WBC) Count 19.3 thou/uL (4.8-10.8)
[2020-09-09 06:44] LABS: Anion Gap 18 mmol/L (10-20); BUN (Urea Nitrogen) 48 mg/dL (8.4-25.7); Calc. Creatinine Clearance 27 mL/min (70-130); Calcium 8.5 mg/dL (7.8-10.44); Carbon Dioxide 27 mmol/L (23-31); Chloride 102 mmol/L (98-107); Estimated GFR-MDRD 25; Glucose 78 mg/dL (83-110); Potassium 4.4 mmol/L (3.5-5.1); Sodium 143 mmol/L (136-145)
[2020-09-09] MEDS: Sildenafil Citrate 20 MG TAB PO SCH ×2 (07:43→13:09)
[2020-09-09] MEDS: predniSONE 20 MG TAB PO SCH (07:44)
--- NOTE | 2020-09-09 08:35 | PRG ---
DATE OF SERVICE: 09/09/2020 SUBJECTIVE: An 79-year-old gentleman, being seen for end-stage renal disease. The patient denies any nausea, vomiting, or chest pain. PHYSICAL EXAMINATION: GENERAL: The patient is awake and alert. VITAL SIGNS: Pulse 75, breathing 16, blood pressure was 107/49. HEENT: Head normocephalic and atraumatic. Eyes intact, no ulcers. Nose intact, no ulcers. Ears intact, no ulcers. Neck: Supple. No JVD. Chest: Symmetrical and clear. Cardiovascular: Shows S1 and S2, no rub, no murmur. Gastrointestinal: Abdomen is soft, bowel sounds positive. Extremities: Show no edema or ulcers. Skin: Shows no rash or petechiae. Musculoskeletal: Shows no joint swelling or stiffness. Genitourinary: Shows no De or CVA tenderness. Neurologic: Motor intact. Cranial nerves intact. LABORATORY DATA: Reviewed. ASSESSMENT AND PLAN: chronic kidney disease, plan dialysis; hypertension, stable; anemia, stable; medication based on GFR appropriate. Job ID: [id number]
[2020-09-09] MEDS: Gabapentin 100 MG CAP PO SCH (09:29)
[2020-09-09] MEDS: Cholecalciferol 1,000 UNITS (25 MCG) TAB PO SCH (09:29)
[2020-09-09] MEDS: Amiodarone 200 MG TAB PO SCH (09:29)
[2020-09-09] MEDS: Fluticasone Propionate Nasal Spray 16 gm Bottle NASAL SCH (09:29)
[2020-09-09] MEDS: Heparin 5,000 UNITS/ML VIAL SC SCH ×2 (09:30→14:21)
[2020-09-09] MEDS: Multivitamin W/ Minerals 1 TAB PO SCH (09:30)
[2020-09-09] MEDS: Nystatin Powder 15 GM BOT TOP SCH (09:30)
[2020-09-09] MEDS: guaiFENesin/DM ER PO SCH (09:30)
[2020-09-09] MEDS: Insulin Glargine 4 UNITS in Pre-Filled Syringe 1 EACH SC SCH (09:30)
[2020-09-09] MEDS: Magnesium Oxide 400 MG TAB PO SCH (09:30)
[2020-09-09] MEDS: Pregabalin 25 MG CAP PO SCH (09:31)
[2020-09-09] MEDS: Sulfameth/Trimethoprim SS 400-80MG TAB PO SCH (09:31)
[2020-09-09 09:42] LABS: Band 18 % (5-11); Lymphocytes 1 % (21-51); MDiff Complete? YES; Monocytes 1 % (0-10); Neutrophil 80 % (42-75); Polychromasia SLIGHT = 2-3 cells (100X) (0-2/hpf); Schistocytes SLIGHT = 2-5 cells (100X) (0-1/hpf)
[2020-09-09] MEDS ORDERED: Piperacillin/Tazobactam 4.5 GM in Sodium Chloride 0.9% 100 ML IVPB SCH (10:00)
--- NOTE | 2020-09-09 10:42 | RAD ---
Portable chest: HISTORY: Hypoxia. Pneumonia follow-up COMPARISON: 08/28/2020 FINDINGS:Mild cardiomegaly and vascular congestion again noted. Diffuse interstitial prominence could represent interstitial edema and superimposed interstitial infiltrates. Confluent infiltrates and/or edema in the lung bases. IMPRESSION:Vascular and interstitial congestion with superimposed infiltrates.
[2020-09-09 11:30] VITALS: TEMP 99
[2020-09-09] MEDS ORDERED: Scopolamine 1.5 mg/72 hour Patch TD SCH (12:00)
[2020-09-09] MEDS ORDERED: Vancomycin HCl 1.25 GM in Sodium Chloride 0.9% 250 ML 250 ML IVPB SCH (12:00)
[2020-09-09 12:31] LABS: Bacteria/HPF 4+ HPF (None Seen); RBC/HPF Greater than 50 HPF (0-3); Squamous Epithelial None Seen HPF (0-3); WBC/HPF Greater than 50 HPF (0-3); Yeast-Budding 2+ HPF (None Seen)
--- NOTE | 2020-09-09 14:57 | PDOC.PALPN ---
Palliative Progress Note - Subjective Remains on Bipap, antibiotics initiated by residents. Increasing confusion. Unable to tolerate removal of Bipap secondary to decreasing O2 saturation and increase in respiratory distress. - Objective Vital Signs: Vital Signs - Most Recent Temp Pulse Resp BP Pulse Ox 99.0 F 98 18 133/61 100 09/09/20 11:30 09/09/20 07:28 09/09/20 07:28 09/05/20 14:29 09/09/20 07:28 - Physical Exam Constitutional: encephalitic, ill appearing HEENT: EOMI, moist MMs Respiratory: accessory muscle use, diminished lung sound, labored respirations Cardiovascular: diminished peripheral pulses Gastrointestinal: soft, non-tender, incontinent Genitourinary: incontinent Musculoskeletal: no clubbing Neurology: moves all 4 limbs Skin: fragile Deviation from normal: Alert to self and family, intermittant confusion - Assessment (1) COVID-19 Code(s): U07.1 - COVID-19 Status: Acute (2) ESRD (end stage renal disease) on dialysis Code(s): N18.6 - END STAGE RENAL DISEASE; Z99.2 - DEPENDENCE ON RENAL DIALYSIS Status: Acute (3) Acute and chronic respiratory failure with hypoxia Code(s): J96.21 - ACUTE AND CHRONIC RESPIRATORY FAILURE WITH HYPOXIA Status: Acute (4) Acute on chronic diastolic (congestive) heart failure Code(s): I50.33 - ACUTE ON CHRONIC DIASTOLIC (CONGESTIVE) HEART FAILURE Status: Acute (5) Palliative care encounter Code(s): Z51.5 - ENCOUNTER FOR PALLIATIVE CARE Status: Acute (6) Symptomatic anemia Code(s): D64.9 - ANEMIA, UNSPECIFIED Status: Acute - Plan Plan: Family meeting with Dr Mix, Alok Alicia, patient , three children and primary RN caring for patient Odalis Ascencio. Family's questions answered. Discussed Hospice and GIP with symptom management *Discussed current prognosis, continued decline and worsening respiratory status. *Revisited Goal of Care *Family agreed to transition to Hospice, requesting Hospice [facility] *Confirmed DNAR status Emotional support and therapeutic listening offered as well as spiritual support by Maral. [60] minutes spent on this encounter with >50% of the time in counseling and coordination of care. - ROS Non Response: due to mental status (and Bipap dependence )
--- NOTE | 2020-09-12 04:24 | PQF ---
CLINICAL DOCUMENTATION CLARIFICATION FORM: Dear : Ha Stanton Date / Time: 09/12/2020 6897 Please exercise your independent, professional judgment in responding to the clarification form. Clinical indicators are provided on the bottom of this form for your review Please check appropriate box(es): [ ] Sepsis due to Covid Pneumonia [ x ] Severe sepsis due to Covid Pneumonia with Acute Respiratory Failure [ ] Septic Shock [ ] Localized infection without sepsis [ ] Other diagnosis, please specify [ ] Unable to determine In addition, please specify: Present on Admission (POA): [x ] Yes [ ] No [ ] Unable to determine Physician Signature: Date/Time: For continuity of documentation, please document condition throughout progress notes and discharge summary. Thank You To be completed by CDI/Coding staff for physician review: Present Clinical Indicators - Signs / Symptoms / Labs Results and Location in Medical Record [X] WBC 6.1, Plt count 212, Neutrophils 89.2, Procalcitonin 0.18 Laboratory 08/24 [X] WBC 19.3, Plt count 129, Neutrophils 80, Band 18, Procalcitonin 3.60 Laboratory 09/09 [X] SARC Cov-2 Rap RNA : Positive Serology 08/23 [X] Blood culture: No growth in 48 hrs Microbiology 09/09 [X] SIRS scoring: Yes pt did meet criteria ED notes p2 08/23 [X] BP 128/55, Pulse 18, Resp 17, Temp 98.2 Vital signs 08/23 [X] Presented with SOB H&P p1 08/23 Dr Meraz [X] Acute on chronic respiratory failure H&P p4 08/23 Dr Meraz [X] Decrease responsiveness H&P p1 08/23 Dr Meraz [X] Chest Xray: fairly extensive interstitial and reticular nodular and linear parenchymal changes Chest Xray 08/28 Present Risk Factors Results and Location in Medical Record [X] 79 year-old Male H&P p1 08/23 Dr Meraz [X] COPD on home O2 H&P p1 08/23 Dr Meraz [X] HFrEF H&P p1 08/23 Dr Meraz [X] HTN H&P p1 08/23 Dr Meraz [X] Former Smoker H&P p2 08/23 Dr Meraz [X] Afib H&P p2 08/23 Dr Meraz [X] ESRD on HD H&P p2 08/23 Dr Meraz [X] Covid Pneumonia H&P p5 08/23 Dr Meraz Present Treatments Results and Location in Medical Record [X] Convalescent plasma Blood bank 08/23 [X] Vibramycin 100 mg oral DEC 29 [X] IV Solumedrol 40 mg DEC 29 [X] IV Zosyn 4.5 gm DEC 29 [X] IV Vancomycin 1.25 gm DEC 29 [X] High flow O2 Respiratory Panel 08/23 [X] Bipap Respiratory Panel 08/26 [X] Pulmo consult Consult Dr Shipman 08/25 CDS/Crop Consultant Signature: Kiki Hardy Adilsonxinmichelle Phone #: ext [phone] Date/Time: 09/12/2020 0424 This is a permanent part of the Medical Record [facility]
--- NOTE | 2020-09-12 09:47 | DIS ---
DATE OF ADMISSION: 08/23/2020 DATE OF DISCHARGE: 09/09/2020 ATTENDING: Ha Stanton MD RESIDENT: Ervin Mix MD CONSULTS: 1. Dr. Weinberg with Nephrology for dialysis. 2. Dr. Shipman for management of COVID pneumonia. PROCEDURES PERFORMED: * Chest x-ray on 08/28 shows fairly extensive interstitial and reticular nodular and linear parenchymal changes bilaterally. * Chest x-ray on 09/09 showed vascular and interstitial congestion with superimposed infiltrates. DISCHARGE MEDICATIONS: Discontinued medications as patient is going to discontinue all medications except for p.r.n. medications for acetaminophen, chlorpromazine, haloperidol, ibuprofen, loperamide, lorazepam, milk of magnesia, morphine, Zofran, and scopolamine, senna, and zolpidem. PRIMARY DIAGNOSES: 1. Acute hypoxic respiratory failure secondary to COVID pneumonia with chronic obstructive pulmonary disease and congestive heart failure, preserved EF. 2. Indeterminate troponin. 3. End-stage renal disease, on hemodialysis. 4. Heart failure, preserved ejection fraction. SECONDARY DIAGNOSES: 1. Atrial fibrillation 2. Chronic anemia 3. Pulmonary hypertension 4. Deconditioning 5. Infection of hip prosthesis. HISTORY OF PRESENT ILLNESS: The patient is an 79-year-old male with past medical history of COPD, who came in on 4 L nasal cannula, heart failure with preserved ejection fraction, followed by Dr. Fowler, who presented to the [facility] ED secondary to shortness of breath and hypoxia with an O2 sat of 50% with decreased responsiveness. The patient was taken to the ICU and placed on BiPAP, which resolved the patient's hypoxia. The patient was transferred to [place], placed on high-flow nasal cannula and O2 sats of 100%. The patient reports that he has been on nasal cannula at home. The patient went to [facility] ED, O2 sat was 85% on home, 4 L nasal cannula, placed on BiPAP, O2 saturation of 100% given one DuoNeb, placed on high-flow nasal cannula 80 FiO2 of 70% with sats of 100%. The patient was seen here at [facility], given steroids and convalescent plasma for COVID pneumonia. We treated the patient for COVID pneumonia, however, the patient went from high-flow nasal cannula to BiPAP and continued to decline. We discussed this with the patient's family and they elected for hospice. DISCHARGE INSTRUCTIONS: Discharged to inpatient hospice at this time. Job ID: [id number] MTDD
== END 2020-09-09 14:29 | disposition hospice, inpatient (51) | DRG 871 ==
LOC: ERS 10:03 → ERHOLD 13:17 → 2SW 20:16 → IMCU/EMU 08-28 15:06
PROVIDERS: ADMIT Internal Medicine Nephrology; ATTEND Internal Medicine Nephrology
PROC: XW13325 Transfusion of Convalescent Plasma (Nonautologous) into Peripheral Vein, Percutaneous Approach, New Technology Group 5 (ICD-10-PCS; principal; 2020-08-23)
PROC: 5A09357 Assistance with Respiratory Ventilation, Less than 24 Consecutive Hours, Continuous Positive Airway Pressure (ICD-10-PCS; 2020-08-23)
PROC: 8E0ZXY6 Isolation (ICD-10-PCS; 2020-08-23)
PROC: 30233N1 Transfusion of Nonautologous Red Blood Cells into Peripheral Vein, Percutaneous Approach (ICD-10-PCS; 2020-08-24)
PROC: 5A1D70Z Performance of Urinary Filtration, Intermittent, Less than 6 Hours Per Day (ICD-10-PCS; 2020-08-30)
DX: A41.89 Other specified sepsis (principal); U07.1 COVID-19; N18.6 End stage renal disease; J12.89 Other viral pneumonia; J96.21 Acute and chronic respiratory failure with hypoxia; I50.33 Acute on chronic diastolic (congestive) heart failure; J44.1 Chronic obstructive pulmonary disease with (acute) exacerbation; I13.2 Hypertensive heart and chronic kidney disease with heart failure and with stage 5 chronic kidney disease, or end stage renal disease; T84.50XA Infection and inflammatory reaction due to unspecified internal joint prosthesis, initial encounter; Z66 Do not resuscitate; Z51.5 Encounter for palliative care; R65.20 Severe sepsis without septic shock; N40.0 Benign prostatic hyperplasia without lower urinary tract symptoms; F41.9 Anxiety disorder, unspecified; F32.9 Major depressive disorder, single episode, unspecified; D63.1 Anemia in chronic kidney disease; I27.20 Pulmonary hypertension, unspecified; R79.89 Other specified abnormal findings of blood chemistry; E29.1 Testicular hypofunction; G47.33 Obstructive sleep apnea (adult) (pediatric); R62.7 Adult failure to thrive; Y83.1 Surgical operation with implant of artificial internal device as the cause of abnormal reaction of the patient, or of later complication, without mention of misadventure at the time of the procedure; Z99.81 Dependence on supplemental oxygen; Z91.048 Other nonmedicinal substance allergy status; Z79.899 Other long term (current) drug therapy; Z79.51 Long term (current) use of inhaled steroids; Z79.52 Long term (current) use of systemic steroids; Z99.2 Dependence on renal dialysis; Z68.27 Body mass index [BMI] 27.0-27.9, adult; Z87.891 Personal history of nicotine dependence
CPT/HCPCS: 36415; 36416; 36430; 36600; 71045; 80048; 80053; 81015; 82550; 82728; 82805; 83036; 83615; 83880; 84145; 84403; 84484; 85025; 85379; 86140; 86850; 86900; 86901; 86922; 87040; 87086; 87340; 90935; 93005; 94660; 94664; G0257; J1644; J1815; J2060; J2270; J2543; J2920; J3370; J3490; J7050; J7512; P9016; P9017; P9047; Q5105; U0002

== ENCOUNTER 2020-09-09 14:33 | Inpatient (IN) | payer OTHER ==
[2020-09-09] MEDS ORDERED: Haloperidol 1 MG TAB PO PRN (14:45)
[2020-09-09] MEDS ORDERED: Morphine IR Tab 15 MG TAB PO PRN (14:45)
[2020-09-09] MEDS ORDERED: Loperamide HCl 2 MG CAP PO PRN (14:45)
[2020-09-09] MEDS ORDERED: Senokot 8.6 MG TAB PO PRN (14:45)
[2020-09-09] MEDS ORDERED: Lorazepam 2 MG/ML VIAL SLOW IVP PRN ×2 (14:45)
[2020-09-09] MEDS ORDERED: diphenhydrAMINE 25 MG CAP PO PRN (14:45)
[2020-09-09] MEDS ORDERED: diphenhydrAMINE 50 MG/ML VIAL IVP PRN (14:45)
[2020-09-09] MEDS ORDERED: Acetaminophen 325 MG TAB PO PRN (14:45)
[2020-09-09] MEDS ORDERED: Scopolamine 1.5 mg/72 hour Patch TOP PRN ×2 (14:45)
[2020-09-09] MEDS ORDERED: Morphine 10 MG/0.5 ML ORAL SYRINGE SL PRN (14:45)
[2020-09-09] MEDS ORDERED: Haloperidol Lactate 5 MG/ML VIAL SLOW IVP PRN (14:45)
[2020-09-09] MEDS ORDERED: Zolpidem Tartrate 5 MG TAB PO PRN (14:45)
[2020-09-09] MEDS ORDERED: Lorazepam 1 MG TAB PO PRN ×2 (14:45)
[2020-09-09] MEDS ORDERED: Ondansetron ODT 4 MG TAB PO PRN (14:45)
[2020-09-09] MEDS ORDERED: Ondansetron PF 4 MG/2 ML Vial IVP PRN (14:45)
[2020-09-09] MEDS ORDERED: chlorproMAZINE HCl 50 MG/2 ML AMP IM PRN ×2 (14:45)
[2020-09-09] MEDS ORDERED: Milk Of Magnesia 30 ML UDCUP PO PRN (14:45)
[2020-09-09] MEDS ORDERED: Hyoscyamine Sulfate SL 0.125 mg Tablet SL PRN (14:45)
[2020-09-09] MEDS ORDERED: chlorproMAZINE HCl 25 MG in Sodium Chloride 0.9% 50 ML IVPB PRN (14:45)
[2020-09-09] MEDS ORDERED: Acetaminophen 650 MG Suppository PR PRN (14:45)
[2020-09-09] MEDS ORDERED: Promethazine HCl 25 MG SUPP PR PRN (14:45)
[2020-09-09] MEDS ORDERED: Ibuprofen 200 MG TAB PO PRN (14:52)
--- NOTE | 2020-09-09 14:54 | PDOC.FPRHP ---
- History of Present Illness Chief Complaint: COVID PNA History of Present Illness: Pt is an 79 M with hx of diastolic HF, ESRD, BPH, Afib s/p Watchman, Chronic anemia, Depression, Anxiety, Recent L hip fracture in July who presents for admission for terminal diagnosis for Acute Hypoxic Respiratory Failure 2/2 to COVID PNA. Pt was seen in [facility] and treated for COVID; however, despite medical efforts he continued to decline. His family elected for hospice care. ESRD and Diastolic Heart Failure are related to his terminal illness. - Allergies/Adverse Reactions Allergies Allergy/AdvReac Type Severity Reaction Status Date / Time adhesive AdvReac Verified 08/23/20 23:55 - Home Medications Medication Instructions Recorded Confirmed Type Gabapentin 100 mg PO BID 06/04/19 08/23/20 History predniSONE 10 mg PO QAM 06/04/19 08/23/20 History Fluticasone Propionate [Flonase 1 spray EA NARE DAILY 10/01/19 08/23/20 History Nasal [place]] Sennosides/Docusate Sodium 2 tab PO BID tab 02/17/20 08/23/20 Rx [Senokot S] Atorvastatin Calcium [Lipitor] 20 mg PO HS 05/19/20 08/23/20 History Multivitamin [Multivitamins] 1 tab PO DAILY 05/19/20 08/23/20 History Pantoprazole [Protonix] 40 mg PO BID 05/19/20 08/23/20 History Ipratropium/Albuterol Sulfate 3 ml NEB [id number] neb 06/29/20 08/23/20 Rx [DuoNeb] hydrOXYzine Pamoate [Vistaril] 25 mg PO Q4H PRN cap 06/29/20 08/23/20 Rx Acetaminophen 650 mg PO Q4HR PRN MDD 4000 08/05/20 08/23/20 History Aluminum & Magnesium Hydroxide 30 ml PO Q6HR PRN 08/05/20 08/23/20 History [Maalox] Amiodarone [Cordarone] 200 mg PO DAILY 08/05/20 08/23/20 History Bisacodyl [Dulcolax] 10 mg [place] DAILY PRN 08/05/20 08/23/20 History Cholecalciferol (Vitamin D3) 1,000 unit PO DAILY 08/05/20 08/23/20 History [Vitamin D3] Guaifenesin DM 100-10 [Robitussin 15 ml PO Q4HR PRN 08/05/20 08/23/20 History DM] Magnesium Oxide [Mag-Oxide] 400 mg PO DAILY 08/05/20 08/23/20 History Mometasone/Formoterol 200/5 2 puff INH BID 08/05/20 08/23/20 History [Dulera 200 mcg/5 mcg Inhaler] Nystatin [Nystatin Powder] 1 applic TOP BID 08/05/20 08/23/20 History Pregabalin [Lyrica] 25 mg PO DAILY 08/05/20 08/23/20 History Sildenafil Citrate [Revatio] 5 mg PO Q8HR 08/05/20 08/23/20 History Sucralfate [Carafate] 1 gm PO AC 08/05/20 08/23/20 History Sulfamethoxazole/Trimethoprim 0.5 tab PO MWF 08/05/20 08/23/20 History [Bactrim SS] Tamsulosin HCl [Flomax] 0.4 mg PO HS 08/05/20 08/23/20 History Zolpidem Tartrate [Ambien] 5 mg PO HS PRN 08/05/20 08/23/20 History diphenhydrAMINE [Benadryl] 25 mg PO Q6HR PRN 08/05/20 08/23/20 History guaiFENesin ER [Mucinex] 600 mg PO Q12HR 08/05/20 08/23/20 History - History PMHx: COPD (end stage), chronic hypoxemic respiratory failure, chronic diastolic CHF, BPH, A Fib, Anemia requiring previous blood transfusion, Depression, Anxiety, ESRD on HD TTS, Hx L hip fx s/p surgery PSHx: Watchman, ANNAMARIA, Skin cyst excision, Multiple L hip surgeries FHx: noncontributory Social: Quit smoking less than 10 yrs ago, denies Etoh and recreational drug use - Review of Systems General: denies: fever/chills Eyes: denies: eye pain ENT: denies: nasal congestion Respiratory: reports: shortness of breath Cardiovascular: denies: chest pain Gastrointestinal: denies: abdominal pain Genitourinary: denies: incontinence Skin: reports: other (bruising) Musculoskeletal: denies: pain, tenderness Neurological: reports: weakness - Vital signs BP: 110/51 HR: 91 RR: 13 Tmax: 99.0 Pox: 95% on Bipap FiO2 100% Wt: 82 kg - Physical Exam Constitutional: NAD HEENT: normocephalic and atraumatic, conjunctiva clear Neck: supple, trachea midline Chest: no-tender to palpation Heart: RRR, normal S1/S2 -Lungs: Coarse breath sounds and rhonchi Abdomen: soft, non-tender Musculoskeletal: normal structure, normal tone Neurological: no focal deficit Skin: good turgor -Heme/Lymphatic: significant bruising on the arms FMR H&P: A/P - Plan Pt is an 79 M with hx of diastolic HF, ESRD, BPH, Afib s/p Watchman, Chronic anemia, Depression, Anxiety, Recent L hip fracture in July who presents for admission for terminal diagnosis for Acute Hypoxic Respiratory Failure 2/2 to COVID PNA. Assessment: 1. Acute hypoxic respiratory failure likely 2/2 combination of acute on chronic COPD exacerbation, acute on chronic HFpEF exacerbation, and COVID PNA 2. Indeterminate Troponin 3. ESRD on HD 4. HFpEF 5. Afib 7. Chronic Anemia 8. Pulmonary HTN 9. Deconditioning 10. Infection of Prosthesis Plan: Comfort Care FMR H&P: Upper Level - Plan Date/Time: 09/09/20 1450 I, [], have evaluated this patient and agree with findings/plan as outlined by chemical engineering intern resident. Pertinent changes/additions are listed here. Addendum - Attending - Attending Attestation Date/Time: 09/10/20 0830 I personally evaluated the patient and discussed the management with Dr. Mix. I agree with the History, Examination, Assessment and Plan documented above with any addition or exceptions noted below.
[2020-09-09 16:13] VITALS: BMI 26.9
[2020-09-09] MEDS: Morphine 4 MG/ML VIAL SLOW IVP PRN ×2 (19:06→22:09)
[2020-09-10] MEDS: Morphine 4 MG/ML VIAL SLOW IVP PRN ×3 (00:24→23:17)
--- NOTE | 2020-09-10 05:23 | PDOC.FM ---
- Subjective Subjective: Pt is sleeping comfortably. at bedside said he did not do well at one point overnight. He recently received morphine and is more at rest. - Objective MAR Reviewed: Yes Vital Signs & Weight: Vital Signs (12 hours) Temp Pulse Ox 09/09/20 20:00 90 L 09/09/20 19:42 98.5 F Weight Weight 82.608 kg Most Recent Monitor Data Heart Rate from ECG 97 NIBP 111/50 NIBP BP-Mean 70 Respiration from ECG 17 SpO2 89 I&O: 09/08/20 09/09/20 09/10/20 06:59 06:59 06:59 Intake Total 1090 Output Total 150 Balance 940 Phys Exam - Physical Examination Constitutional: NAD HEENT: oral pharynx no lesions poor dentition Neck: supple coarse breath sounds Cardiovascular: RRR Gastrointestinal: soft, non-tender Musculoskeletal: pulses present trace edema Neurological: non-focal Lymphatic: no nodes Deviation from normal: bruising on bilateral arms Dx/Plan (1) Acute and chronic respiratory failure with hypoxia Code(s): J96.21 - ACUTE AND CHRONIC RESPIRATORY FAILURE WITH HYPOXIA Status: Chronic (2) Acute on chronic diastolic (congestive) heart failure Code(s): I50.33 - ACUTE ON CHRONIC DIASTOLIC (CONGESTIVE) HEART FAILURE Status: Acute (3) COVID-19 Code(s): U07.1 - COVID-19 Status: Acute (4) ESRD (end stage renal disease) on dialysis Code(s): N18.6 - END STAGE RENAL DISEASE; Z99.2 - DEPENDENCE ON RENAL DIALYSIS Status: Acute (5) HTN (hypertension) Code(s): I10 - ESSENTIAL (PRIMARY) HYPERTENSION Status: Chronic Qualifiers: (6) BRAD (obstructive sleep apnea) Code(s): G47.33 - OBSTRUCTIVE SLEEP APNEA (ADULT) (PEDIATRIC) Status: Chronic - Plan Plan: Pt is an 79 M with hx of diastolic HF, ESRD, BPH, Afib s/p Watchman, Chronic anemia, Depression, Anxiety, Recent L hip fracture in July who presents for admission for terminal diagnosis for Acute Hypoxic Respiratory Failure 2/2 to COVID PNA. Assessment: 1. Acute hypoxic respiratory failure likely 2/2 combination of acute on chronic COPD exacerbation, acute on chronic HFpEF exacerbation, and COVID PNA 2. Indeterminate Troponin 3. ESRD on HD 4. HFpEF 5. Afib 7. Chronic Anemia 8. Pulmonary HTN 9. Deconditioning 10. Infection of Prosthesis Plan: Patient's O2 sats are worsening on bipap. Family at bedside. Will continue comfort measures. Addendum - Attending - Attending Attestation Date/Time: 09/10/20 4082 I personally evaluated the patient and discussed the management with Dr. Mix. I agree with the History, Examination, Assessment and Plan documented above with any addition or exceptions noted below. Patient's is tearful at the bedside. She is interested in slowly decreasing settings on bipap if that is an option. She had no other concerns at this time.
--- NOTE | 2020-09-11 05:15 | PDOC.FM ---
- Subjective Subjective: Pt is resting comfortably. stated that he started trying to pull off the CPAP overnight. He received a dose of morphine overnight and calmed down. He has been resting comfortable. The states he has had no water for the past day. - Objective MAR Reviewed: Yes Vital Signs & Weight: Vital Signs (12 hours) Temp Pulse Resp Pulse Ox 09/11/20 01:00 89 10 L 100 09/10/20 20:00 98.0 F 95 Weight Weight 82.608 kg Most Recent Monitor Data Heart Rate from ECG 91 NIBP 100/43 NIBP BP-Mean 62 Respiration from ECG 17 SpO2 100 I&O: 09/09/20 09/10/20 09/11/20 06:59 06:59 06:59 Intake Total 1150 10 Output Total 150 Balance 1000 10 Phys Exam - Physical Examination Constitutional: NAD dry mucous membranes Neck: supple Coarse breath sounds in bilateral lungs Cardiovascular: RRR, no significant murmur Gastrointestinal: soft, non-tender Musculoskeletal: pulses present 1+ edema Neurological: moves all 4 limbs Lymphatic: no nodes Psychiatric: normal affect Deviation from normal: significant bruising on both arms Dx/Plan (1) Acute and chronic respiratory failure with hypoxia Code(s): J96.21 - ACUTE AND CHRONIC RESPIRATORY FAILURE WITH HYPOXIA Status: Chronic (2) Acute on chronic diastolic (congestive) heart failure Code(s): I50.33 - ACUTE ON CHRONIC DIASTOLIC (CONGESTIVE) HEART FAILURE Status: Acute (3) COVID-19 Code(s): U07.1 - COVID-19 Status: Acute (4) ESRD (end stage renal disease) on dialysis Code(s): N18.6 - END STAGE RENAL DISEASE; Z99.2 - DEPENDENCE ON RENAL DIALYSIS Status: Acute (5) HTN (hypertension) Code(s): I10 - ESSENTIAL (PRIMARY) HYPERTENSION Status: Chronic Qualifiers: (6) BRAD (obstructive sleep apnea) Code(s): G47.33 - OBSTRUCTIVE SLEEP APNEA (ADULT) (PEDIATRIC) Status: Chronic - Plan Plan: Pt is an 79 M with hx of diastolic HF, ESRD, BPH, Afib s/p Watchman, Chronic anemia, Depression, Anxiety, Recent L hip fracture in July who presents for admission for terminal diagnosis for Acute Hypoxic Respiratory Failure 2/2 to COVID PNA. Assessment: 1. Acute hypoxic respiratory failure likely 2/2 combination of acute on chronic COPD exacerbation, acute on chronic HFpEF exacerbation, and COVID PNA 2. Indeterminate Troponin 3. ESRD on HD 4. HFpEF 5. Afib 7. Chronic Anemia 8. Pulmonary HTN 9. Deconditioning 10. Infection of Prosthesis Plan: Patient's maintaining O2 sats on bipap. Family at bedside, do not want to decrease settings on bipap. Will continue comfort measures. Addendum - Attending - Attending Attestation Date/Time: 09/11/20 2847 I personally evaluated the patient and discussed the management with Dr. Mix. I agree with the History, Examination, Assessment and Plan documented above with any addition or exceptions noted below. The patient required morphine overnight but is comfortable this morning. Will try to cut down on bipap settings.
[2020-09-12 00:44] VITALS: TEMP 97.8
--- NOTE | 2020-09-12 06:25 | PDOC.FM ---
- Subjective Subjective: is with him this morning and would like to remove the bipap at this time. Pt is not responsive at this time. - Objective MAR Reviewed: Yes Vital Signs & Weight: Vital Signs (12 hours) Temp Pulse Ox 09/11/20 20:00 97.8 F 97 Weight Weight 82.608 kg Most Recent Monitor Data Heart Rate from ECG 60 NIBP 90/32 NIBP BP-Mean 51 Respiration from ECG 16 SpO2 100 I&O: 09/10/20 09/11/20 09/12/20 06:59 06:59 06:59 Intake Total 1150 10 0 Output Total 150 0 Balance 1000 10 0 Phys Exam - Physical Examination pupils fixed and dilated No spontaneous respirations No pulse, no auscultated heart sounds No withdrawal to painful stimuli Dx/Plan (1) Acute and chronic respiratory failure with hypoxia Code(s): J96.21 - ACUTE AND CHRONIC RESPIRATORY FAILURE WITH HYPOXIA Status: Chronic (2) Acute on chronic diastolic (congestive) heart failure Code(s): I50.33 - ACUTE ON CHRONIC DIASTOLIC (CONGESTIVE) HEART FAILURE Status: Acute (3) COVID-19 Code(s): U07.1 - COVID-19 Status: Acute (4) ESRD (end stage renal disease) on dialysis Code(s): N18.6 - END STAGE RENAL DISEASE; Z99.2 - DEPENDENCE ON RENAL DIALYSIS Status: Acute (5) HTN (hypertension) Code(s): I10 - ESSENTIAL (PRIMARY) HYPERTENSION Status: Chronic Qualifiers: (6) BRAD (obstructive sleep apnea) Code(s): G47.33 - OBSTRUCTIVE SLEEP APNEA (ADULT) (PEDIATRIC) Status: Chronic - Plan Plan: Pt is an 79 M with hx of diastolic HF, ESRD, BPH, Afib s/p Watchman, Chronic anemia, Depression, Anxiety, Recent L hip fracture in July who presents for admission for terminal diagnosis for Acute Hypoxic Respiratory Failure 2/2 to COVID PNA. Assessment: 1. Acute hypoxic respiratory failure likely 2/2 combination of acute on chronic COPD exacerbation, acute on chronic HFpEF exacerbation, and COVID PNA 2. Indeterminate Troponin 3. ESRD on HD 4. HFpEF 5. Afib 7. Chronic Anemia 8. Pulmonary HTN 9. Deconditioning 10. Infection of Prosthesis Plan: Pt was taken off of Bipap and passed on 09/12 @ 0804 by Marisol Morales & Gissel Fields Rn Addendum - Attending - Attending Attestation Date/Time: 09/12/201925 I personally evaluated the patient and discussed the management with Dr. Mix. I agree with the History, Examination, Assessment and Plan documented above with any addition or exceptions noted below. Patient's bipap was removed this morning and patient peacefully with his at his side.
[2020-09-12] MEDS: Morphine 4 MG/ML VIAL SLOW IVP PRN (07:48)
--- NOTE | 2020-09-13 14:15 | DIS ---
DATE OF ADMISSION: 09/09/2020 DATE OF DISCHARGE: 09/12/2020 ATTENDING: Kamryn Jackson MD. RESIDENT: Ervin Mix MD. PROCEDURES: None. CONSULTATIONS: None. PRIMARY DIAGNOSES: 1. Acute hypoxic respiratory failure secondary to covid pna & COPD fraction exacerbation and COVID pneumonia. 2. Indeterminate troponin. SECONDARY DIAGNOSIS: 1. End-stage renal disease, on hemodialysis. 2. Heart failure with preserved ejection fraction. 3. Atrial fibrillation. 4. Chronic anemia. 5. Pulmonary hypertension. 6. Deconditioning. 7. Infection of prosthesis. DISCHARGE MEDICATIONS: None. HISTORY OF PRESENT ILLNESS: The patient was admitted to the inpatient hospice service. He had been on comfort measures. He was taken off BiPAP on 09/12 and at 8:04 a.m. He was pronounced by Yecenia MOJICA and Gissel Esparza. Job ID: [id number] MTDD
== END 2020-09-12 08:04 | disposition expired | DRG 951 ==
LOC: IMCU/EMU 14:33
PROVIDERS: ADMIT Family Medicine; ATTEND Family Medicine
PROC: 5A09457 Assistance with Respiratory Ventilation, 24-96 Consecutive Hours, Continuous Positive Airway Pressure (ICD-10-PCS; principal; 2020-09-09)
DX: Z51.5 Encounter for palliative care (principal); I50.33 Acute on chronic diastolic (congestive) heart failure; J12.89 Other viral pneumonia; U07.1 COVID-19; N18.6 End stage renal disease; J96.21 Acute and chronic respiratory failure with hypoxia; J44.1 Chronic obstructive pulmonary disease with (acute) exacerbation; I13.2 Hypertensive heart and chronic kidney disease with heart failure and with stage 5 chronic kidney disease, or end stage renal disease; R77.8 Other specified abnormalities of plasma proteins; I48.91 Unspecified atrial fibrillation; D64.9 Anemia, unspecified; I27.20 Pulmonary hypertension, unspecified; R53.81 Other malaise; N40.0 Benign prostatic hyperplasia without lower urinary tract symptoms; F32.9 Major depressive disorder, single episode, unspecified; F41.9 Anxiety disorder, unspecified; Z91.048 Other nonmedicinal substance allergy status; Z79.899 Other long term (current) drug therapy; Z79.51 Long term (current) use of inhaled steroids; Z79.52 Long term (current) use of systemic steroids; Z99.2 Dependence on renal dialysis; Z98.890 Other specified postprocedural states; Z87.891 Personal history of nicotine dependence; G47.33 Obstructive sleep apnea (adult) (pediatric)
CPT/HCPCS: 36416; J2270